=== PATIENT | male | born 1965 | race Two or more races ===

== ENCOUNTER 2022-11-06 08:16 | Outpatient (OUT) | payer BC, SELFPAY ==
--- NOTE | 2022-11-06 14:53 | XR_ITS ---
The [address] [address] Patient Name: LAVERN GARCIA MRN: [id number] date: 1965 Sex: M Assigned Patient Location: RAD Current Patient Location: [facility] Accession/Order Number: [id number] Exam Date: 11/06/2022 14:53 Report Date: 11/07/2022 09:05 At the request of: LIZETH MARTIN Procedure: XR ankle RT min 3V PROCEDURE: XR ankle RT min 3V HISTORY: RIGHT ANKLE PAIN COMPARISON: XR ankle right 10/25/2021 FINDINGS: BONES:Prosthetic replacement of the talus without evidence of hardware fracture or change in alignment. No bone fracture dislocation. SOFT TISSUES:Mild soft tissue swelling surrounding the ankle. EFFUSION:None visible. OTHER: Negative. IMPRESSION: 1. Prosthetic replacement of the talus without evidence of hardware failure or change in alignment. Electronically authenticated by: MICHELLE IBRAHIM Date: 11/07/2022 09:05
== END 2022-11-06 08:17 ==
LOC: RAD 08:19
PROVIDERS: PCP Physician Assistant; Visit Provider Physician Assistant
DX: M19.071 Primary osteoarthritis, right ankle and foot (principal)
CPT/HCPCS: 73610

== ENCOUNTER 2022-11-24 10:05 | Outpatient (OUT) | payer BC, SELFPAY ==
[2022-11-24 10:51] LABS: Estimated Average Glucose 146 mg/dL; Glycohemoglobin A1C 6.7 % (4.5-6.2)
== END 2022-11-24 10:06 | disposition home or self-care (01) ==
LOC: LAB 10:07
PROVIDERS: PCP Physician Assistant; Visit Provider Internal Medicine
DX: E11.9 Type 2 diabetes mellitus without complications (principal)
CPT/HCPCS: 36415; 83036

== ENCOUNTER 2022-12-04 09:11 | Outpatient (OUT) | payer BC, SELFPAY ==
--- NOTE | 2022-12-04 09:15 | CT_ITS ---
The [address] [address] Patient Name: LAVERN GARCIA MRN: [id number] date: 1965 Sex: M Assigned Patient Location: CT Current Patient Location: CT Accession/Order Number: [id number] Exam Date: 12/04/2022 09:40 Report Date: 12/04/2022 12:07 At the request of: LIZETH MARTIN Procedure: CT ankle RT wo con CT ankle RT wo con CLINICAL HISTORY: Chronic right ankle pain with surgery 5 years ago. Primary Osteoarthritis Right Ankle M19.071. COMPARISON: 11/06/2022. 11/14/2021. TECHNIQUE: Noncontrast axial CT of right lower extremity from the right knee through the entire right foot. Bone and soft tissue windows provided for review. Sagittal and coronal reconstructions performed. Dose reduction techniques were achieved by using automated exposure control and/or adjustment of mA and/or kV according to patient size and/or use of iterative reconstruction technique. FINDINGS: Right knee joint is intact with no fracture or dislocation. There is severe degenerative change at the lateral compartment and more moderate at the medial and patellofemoral compartments. Slight associated joint effusion. The tibia and fibula are intact with no fracture or dislocation the calf muscles are intact and unremarkable. Minimal diffuse subcutaneous edema. Right total talus replacement is seen with worsening severe degenerative change at the tibial plafond and subtalar joints with worsening extensive irregularity and subchondral cystic change along the articulation with the talus. The talonavicular articulation appears intact. Remaining foot is intact with no acute fracture or dislocation. Midfoot arch is maintained on this nonweightbearing exam. Mild degenerative change of the great toe MTP joint. Achilles tendon and plantar fascia grossly intact and normal thickness where seen. CT/CT ankle RT wo con IMPRESSION: Right total talar implant is present with no acute complication but there is severe subchondral cystic change, degenerative change and irregularity at the articulations with the tibial plafond and the subtalar joints, significantly increased from 2021. Electronically authenticated by: AL PALACIO Date: 12/04/2022 12:07
== END 2022-12-04 09:12 | disposition home or self-care (01) ==
LOC: CT 09:12
PROVIDERS: PCP Internal Medicine; Visit Provider Physician Assistant
DX: M19.071 Primary osteoarthritis, right ankle and foot (principal)
CPT/HCPCS: 73700

== ENCOUNTER 2023-02-25 14:41 | Outpatient (OUT) | payer BC, SELFPAY ==
--- NOTE | 2023-02-25 14:54 | ECG_ITS ---
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
--- NOTE | 2023-02-25 15:28 | PM.PRESUREVA ---
History of Present Illness History of Present Illness Chief complaint: Primary Osteoarthritis Right Ankle and Foot Narrative: Patient presents for preadmission testing. The patient reports a long history of right ankle and foot pain. He's had two prior surgeries to the right ankle. He states he has significant pain and swelling especially when working long hours on his feet. He does wear a brace, takes meloxicam, and Tylenol which giives him some relief. He states he does have mild neuropathy and feels that his sensation comes and goes. He denies weakness of the ankle, recent trauma or injury, or any other complaints. Review of Systems ROS Narrative REVIEW OF SYSTEMS: Negative except as stated in HPI, ten or more systems reviewed. Constitutional: No fever , chills, weakness ENT: No sore throat or epistaxis Cardiovascular: No chest pain, palpitations, or activity intolerance Respiratory: No shortness of breath or cough Gastrointestinal: No abdominal pain, constipation, diarrhea, or vomiting Genitourinary: No dysuria or hematuria Neurological: No numbness, tingling, weakness, or headache Psychiatric: No mood changes PFSH PFS Medical History (Updated 02/25/23 @ 15:42 by Lorna Frye NP) Arthritis ?M19.90 - Unspecified osteoarthritis, unspecified site (ICD-10) Asthma ?J45.909 - Unspecified asthma, uncomplicated (ICD-10) Diabetes ?E11.9 - Type 2 diabetes mellitus without complications (ICD-10) GERD (gastroesophageal reflux disease) ?K21.9 - Gastro-esophageal reflux disease without esophagitis (ICD-10) High cholesterol ?E78.00 - Pure hypercholesterolemia, unspecified (ICD-10) Hypertension ?I10 - Essential (primary) hypertension (ICD-10) 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 - Idiopathic aseptic necrosis of unspecified ankle (ICD-10) Osteoarthritis of right ankle and foot ?M19.071 - Primary osteoarthritis, right ankle and foot (ICD-10) Surgical History (Updated 02/25/23 @ 15:43 by Lorna Frye NP) History of ankle surgery ?Z98.890 - Other specified postprocedural states (ICD-10) Presence of artificial ankle joint ?Z96.669 - Presence of unspecified artificial ankle joint (ICD-10) Family History (Updated 02/25/23 @ 15:07 by Lorna Frye NP) Other Family history of diabetes mellitus Family history of stroke Social History (Updated 02/25/23 @ 15:03 by Lorna Frye NP) Within the past year, how often did you have a drink containing alcohol: never Score interpretation: A score less than 4 is consistent with normal alcohol consumption. 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 200 mcg-umeclid 1 inh inhalation DAILY 02/25/23 02/25/23 History 62.5 mcg-vilant 25 mcg inhalat.powder (Trelegy Ellipta) hydrochlorothiazide 25 mg tablet 25 mg PO DAILY 02/25/23 02/25/23 History insulin detemir U-100 100 unit/mL 16 unit subcut DAILY 02/25/23 02/25/23 History (3 mL) subcutaneous pen (Levemir FlexPen) losartan 100 1 tab PO DAILY 02/25/23 02/25/23 History mg-hydrochlorothiazide 25 mg tablet (Hyzaar) meloxicam 15 mg tablet 15 mg PO DAILY 02/25/23 02/25/23 History metformin 850 mg tablet 850 mg PO DAILY 02/25/23 02/25/23 History omega-3 fatty acids-fish oil 360 1 cap PO DAILY 02/25/23 02/25/23 History mg-1,200 mg capsule (Fish Oil) omeprazole 40 mg capsule,delayed 40 mg PO DAILY 02/25/23 02/25/23 History release Allergies Allergy/AdvReac Type Severity Reaction Status Date / Time No Known Drug Allergies Allergy Verified 02/25/23 14:57 Exam Narrative Exam Narrative: Constitutional: Awake, alert, comfortable, well-appearing, nontoxic, interactive, vital signs as charted Head: Normocephalic, atraumatic Neck: Supple, normal appearance, normal range of motion, no meningeal signs, no lymphadenopathy Respiratory: No respiratory distress, breath sounds clear Cardiovascular: Regular rate and rhythm, strong and regular heart tones Musculoskeletal: Patient ambulates with an antalgic gait, 2+ pedal edema right foot, medial right ankle tenderness with palpation, limited range of motion, sensation intact, sluggish capillary refill Skin: No rashes or induration, no lesions, Well-healed incisions right ankle and foot, only visible skin inspected Neuro: No neurological deficits, normal sensation Psychiatric: Oriented ?3, normal affect Assessment and Plan Assessment and Plan (1) Osteoarthritis of right ankle and foot: (2) Idiopathic aseptic necrosis of ankle: (3) Presence of artificial ankle joint: Plan Right ankle and subtalar joint fusion with 3-D printed Talar cage, bone graft as needed, and removal of hardware scheduled with Dr. Perez 03/14/2023
[2023-02-25 16:40] LABS: BUN Creatinine Ratio 22.6; Calcium 8.9 mg/dL (8.5-10.1); Carbon Dioxide 25.9 mmol/L (21.0-32.0); Chloride 103 mmol/L (98-107); Estimated GFR (African America >60 (>=60); Estimated GFR (Non-African Ame 50 (>=60); Glucose 131 mg/dL (74-106); Potassium 3.9 mmol/L (3.5-5.1); Sodium 141 mmol/L (136-145)
== END 2023-02-25 14:42 | disposition home or self-care (01) ==
LOC: PST 14:42
PROVIDERS: PCP Internal Medicine; Visit Provider Podiatrist Foot & Ankle Surgery
DX: Z01.810 Encounter for preprocedural cardiovascular examination (principal); Z01.812 Encounter for preprocedural laboratory examination; M19.071 Primary osteoarthritis, right ankle and foot; M87.00 Idiopathic aseptic necrosis of unspecified bone; I10 Essential (primary) hypertension; E11.9 Type 2 diabetes mellitus without complications
CPT/HCPCS: 36415; 80048; 93005; G0463

== ENCOUNTER 2023-03-14 13:18 | Outpatient (OUT) | payer BC, SELFPAY ==
[2023-03-14 14:44] LABS: Bilirubin Urine NEGATIVE (NEGATIVE); Blood Urine NEGATIVE (NEGATIVE); Clarity Urine CLEAR (CLEAR); Color Urine LT. YELLOW (YELLOW); Glucose Urine UA NEGATIVE (NEGATIVE); Ketones Urine NEGATIVE (NEGATIVE); Leukocyte Esterase Urine NEGATIVE (NEGATIVE); Nitrite Urine NEGATIVE (NEGATIVE); Protein Urine NEGATIVE (NEG/TRACE); Specific Gravity Urine 1.015 (1.005-1.025); Urobilinogen Urine 0.2 EU/dL (0.2-1.0)
[2023-03-14 15:10] LABS: Urine Microscopic Indicated NO
== END 2023-03-14 13:19 | disposition home or self-care (01) ==
LOC: LAB 13:19
PROVIDERS: PCP Internal Medicine; Visit Provider Podiatrist Foot & Ankle Surgery
DX: Z01.812 Encounter for preprocedural laboratory examination (principal)
CPT/HCPCS: 81003; 87081

== ENCOUNTER 2023-03-18 10:05 | Emergency (ER) | payer BC, SELFPAY ==
[2023-03-18 10:14] VITALS: BP 160/94; PULSE 63; RESP 14; TEMP 37.4; O2SAT 98; BMI 35.5
[2023-03-18 10:16] VITALS: O2SAT 99
[2023-03-18 11:58] VITALS: BP 158/92; PULSE 57; RESP 18; O2SAT 97
--- NOTE | 2023-03-18 12:13 | ED_ITS ---
HPI - General Adult General Chief complaint: Upper Respiratory Infection Stated complaint: COUGH Time Seen by Provider: 03/18/23 11:19 Source: patient Mode of arrival: walk-in Limitations: no limitations History of Present Illness HPI narrative: Patient is a 58-year-old male who is presenting to the Emergency Room today with chief complaint of flulike symptoms, cough, congestion, sinus drainage for the past 2 weeks. Patient is here today because He is having surgery on to have a foot/toe surgery at [facility] and wanted to make sure that he can proceed with his surgery. Patient has no significant headache, no sinus congestion. Patient has no chest pain shortness of breath. No abdominal pain, nausea or vomiting. No acute complaints. Patient has been taking quqv-gmr-zstgvth Coricidin, patient's blood pressure is elevated secondary to possible ndxh-uaw-slodsed medication. Patient looks well. No ear pain, no sore throat, no other acute complaints. . All systems are negative except as noted/marked. All systems reviewed and otherwise negative. . Nurses note and vital signs reviewed and patient is not hypoxic. General: The patient appears well and in no apparent distress. Patient is resting comfortably on cart. Patient is not toxic, lethargic, or listless Skin: Warm, dry, no pallor noted. There is no rash noted. No petechiae, purpura. Head: Normocephalic, atraumatic; Patient has no tenderness to palpation to bilateral frontal or maxillary sinus. Patient has clear drainage noted to the posterior pharynx, mild cobblestoning noted. No unilateral swelling, no posterior pharyngeal petechia or Exam. Eye: Normal conjunctiva, no drainage, EOMI. PERRL Ears, Nose, Mouth, and Throat: oral mucosa is moist. Nares patent. Mouth without vesicles. Cardiovascular: Regular Rate and Rhythm, no murmur, gallop, rub Respiratory: Patient is in no distress, no accessory muscle use, lungs are clear to auscultation, no wheezing, rales or rhonchi Back: non-tender, no CVA tenderness bilaterally to percussion. No CT LS midline pain GI: soft, obese, no tenderness Musculoskeletal: Patient has full range of motion of all of the extremities, no motor, sensory, or focal neurological deficits Neurological: A&O x3, normal speech Psychiatric: Cooperative Related Data Home Medications Medication Instructions Recorded Confirmed acetaminophen 500 mg tablet 1,000 mg PO Q6H PRN pain 02/25/23 02/25/23 albuterol sulfate 90 mcg/actuation 2 inh inhalation QID PRN shortness 02/25/23 02/25/23 aerosol inhaler (ProAir HFA) of breath or wheezing atorvastatin 40 mg tablet 40 mg PO DAILY 02/25/23 02/25/23 carvedilol 25 mg tablet (Coreg) 25 mg PO BID 02/25/23 02/25/23 fluticasone fur. 200 mcg-umeclid 1 inh inhalation DAILY 02/25/23 02/25/23 62.5 mcg-vilant 25 mcg inhalat.powder (Trelegy Ellipta) hydrochlorothiazide 25 mg tablet 25 mg PO DAILY 02/25/23 02/25/23 insulin detemir U-100 100 unit/mL 16 unit subcut DAILY 02/25/23 02/25/23 (3 mL) subcutaneous pen (Levemir FlexPen) losartan 100 1 tab PO DAILY 02/25/23 02/25/23 mg-hydrochlorothiazide 25 mg tablet (Hyzaar) meloxicam 15 mg tablet 15 mg PO DAILY 02/25/23 02/25/23 metformin 850 mg tablet 850 mg PO DAILY 02/25/23 02/25/23 omega-3 fatty acids-fish oil 360 1 cap PO DAILY 02/25/23 02/25/23 mg-1,200 mg capsule (Fish Oil) omeprazole 40 mg capsule,delayed 40 mg PO DAILY 02/25/23 02/25/23 release Previous Rx's Medication Instructions Recorded azithromycin 250 mg tablet See Rx Instructions PO .COMPLEX 5 03/18/23 days #6 tabs benzonatate 100 mg capsule 200 mg PO TID PRN cough #20 caps 03/18/23 gvpxtwokiauppnq-zdajajklhkudflg-NI 10 ml PO Q6H PRN cold symptoms 03/18/23 2 mg-30 mg-10 mg/5 mL oral syrup #200 mL (Bromfed DM) Allergies Allergy/AdvReac Type Severity Reaction Status Date / Time No Known Drug Allergies Allergy Verified 03/18/23 10:14 [facility] Medical History (Updated 03/18/23 @ 12:11 by Arslan Mcclain MD) Arthritis ?M19.90 - Unspecified osteoarthritis, unspecified site (ICD-10) Asthma ?J45.909 - Unspecified asthma, uncomplicated (ICD-10) Diabetes ?E11.9 - Type 2 diabetes mellitus without complications (ICD-10) GERD (gastroesophageal reflux disease) ?K21.9 - Gastro-esophageal reflux disease without esophagitis (ICD-10) High cholesterol ?E78.00 - Pure hypercholesterolemia, unspecified (ICD-10) Hypertension ?I10 - Essential (primary) hypertension (ICD-10) 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 - Idiopathic aseptic necrosis of unspecified ankle (ICD-10) Osteoarthritis of right ankle and foot ?M19.071 - Primary osteoarthritis, right ankle and foot (ICD-10) Surgical History (Updated 02/25/23 @ 15:43 by Lorna Frye NP) History of ankle surgery ?Z98.890 - Other specified postprocedural states (ICD-10) Presence of artificial ankle joint ?Z96.669 - Presence of unspecified artificial ankle joint (ICD-10) Family History (Updated 02/25/23 @ 15:07 by Lorna Frye NP) Other Family history of diabetes mellitus Family history of stroke Social History (Updated 02/25/23 @ 15:03 by Lorna Frye NP) Within the past year, how often did you have a drink containing alcohol: never Score interpretation: A score less than 4 is consistent with normal alcohol consumption. 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 [employer] Highest level of school completed/degree received: high school graduate Exam Constitutional Vital Signs, click to edit/add: Last Vital Signs Temp 99.3 F 03/18/23 10:14 Pulse 57 L 03/18/23 11:58 Resp 18 03/18/23 11:58 BP 158/92 H 03/18/23 11:58 Pulse Ox 97 03/18/23 11:58 O2 Del Method Room Air 03/18/23 10:14 Course Vital Signs Vital signs: Vital Signs Temperature 99.3 F 03/18/23 10:14 Pulse Rate 63 03/18/23 10:14 Respiratory Rate 14 03/18/23 10:14 Blood Pressure 160/94 H 03/18/23 10:14 Pulse Oximetry 98 03/18/23 10:14 Oxygen Delivery Method Room Air 03/18/23 10:14 Temperature 99.3 F 03/18/23 10:14 Pulse Rate 57 L 03/18/23 11:58 Respiratory Rate 18 03/18/23 11:58 Blood Pressure 158/92 H 03/18/23 11:58 Pulse Oximetry 97 03/18/23 11:58 Oxygen Delivery Method Room Air 03/18/23 10:14 Medical Decision Making MDM Narrative Medical decision making narrative: Patient is very pleasant take care of. Patient is aware to let his surgeon no referred performing the procedure on of his flulike symptoms for the past 2 weeks. Since patient's been having symptoms for 2 weeks and his surgery scheduled this week, he'll be placed on antibiotic prophylactically. Patient was given prescription for Tessalon Perles and Bromfed. Patient understands he is Claritin or Zyrtec along with Flonase. Education done at bedside and on discharge paperwork. No questions. Patient very thankful. Discharge Plan Discharge Chief Complaint: Upper Respiratory Infection Clinical Impression: Upper respiratory infection, Sinus congestion Patient Disposition: Home, Self-Care Condition: Fair Prescriptions / Home Meds: New azithromycin 250 mg tablet See Rx Instructions .ROUTE .COMPLEX 5 Days Qty: 6 0RF Rx Instructions: For 250 mg dose pack: take 500 mg today (day 1), then 250 mg for 4 days (days 2-5) benzonatate 100 mg capsule 200 mg PO TID PRN (Reason: cough) Qty: 20 0RF laieuovdlnekjsj-dotalggdj-RM [Bromfed DM] 2-30-10 mg/5 mL syrup 10 ml PO Q6H PRN (Reason: cold symptoms) Qty: 200 0RF No Action albuterol sulfate [ProAir HFA] 90 mcg/actuation HFA aerosol inhaler 2 inh inhalation QID PRN (Reason: shortness of breath or wheezing) atorvastatin 40 mg tablet 40 mg PO DAILY carvedilol [Coreg] 25 mg tablet 25 mg PO BID Rx Instructions: must administer with a meal/food omega-3 fatty acids-fish oil [Fish Oil] 360-1,200 mg capsule 1 cap PO DAILY hydrochlorothiazide 25 mg tablet 25 mg PO DAILY Levemir FlexPen 100 unit/mL (3 mL) insulin pen 16 unit subcut DAILY losartan-hydrochlorothiazide [Hyzaar] 100-25 mg tablet 1 tab PO DAILY meloxicam 15 mg tablet 15 mg PO DAILY metformin 850 mg tablet 850 mg PO DAILY omeprazole 40 mg capsule,delayed release(DR/EC) 40 mg PO DAILY Trelegy Ellipta 200-62.5-25 mcg blister with device 1 inh inhalation DAILY acetaminophen 500 mg tablet 1,000 mg PO Q6H PRN (Reason: pain) Instructions: Upper Respiratory Infection (ED), Cold Symptoms (ED), How to Use Nasal [place] (ED) Additional Instructions: Use oozv-fuu-spvtksv Claritin or Zyrtec 10 a day, Benadryl nighttime. Use Flonase as well daily to help with sinus congestion. An antibiotic has been prescribed since he had symptoms for over 2 weeks. Increase fluids. Cough medication has been prescribed as well. Make sure you let your surgeon know of your flulike symptoms and treatment today in the Emergency Room. Stand Alone Forms: Portal Instructions Referrals: Shaikh Baker MD [Primary Care Provider] - 1 week
== END 2023-03-18 12:24 | disposition home or self-care (01) ==
PROVIDERS: Emergency Provider Emergency Medicine; PCP Internal Medicine
DX: J06.9 Acute upper respiratory infection, unspecified (principal); R09.81 Nasal congestion; M19.90 Unspecified osteoarthritis, unspecified site; J45.909 Unspecified asthma, uncomplicated; E11.9 Type 2 diabetes mellitus without complications; K21.9 Gastro-esophageal reflux disease without esophagitis; E78.00 Pure hypercholesterolemia, unspecified; I10 Essential (primary) hypertension; Z96.669 Presence of unspecified artificial ankle joint; E66.9 Obesity, unspecified; Z79.899 Other long term (current) drug therapy; Z79.4 Long term (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; Z79.84 Long term (current) use of oral hypoglycemic drugs; Z87.891 Personal history of nicotine dependence; Z68.35 Body mass index [BMI] 35.0-35.9, adult
CPT/HCPCS: 99283

== ENCOUNTER 2023-04-02 09:10 | Outpatient (OUT) | payer BC, SELFPAY ==
--- NOTE | 2023-04-02 09:27 | CT_ITS ---
The [address] [address] Patient Name: LAVERN GARCIA MRN: [id number] date: 1965 Sex: M Assigned Patient Location: LAB Current Patient Location: LAB Accession/Order Number: [id number] Exam Date: 04/02/2023 09:48 Report Date: 04/02/2023 10:50 At the request of: EVELYNE QUINTANILLA Procedure: CT soft tissue neck w con CT soft tissue neck w con, 04/02/2023 9:48 AM EST INDICATION: Stridor R06.1, Foreign Body Sensation In Throat R09.A2 COMPARISON: There is no appropriate prior study for comparison. TECHNIQUE: CT imaging of the neck were acquired without contrast. Supplemental 2D reformatted images were generated and reviewed as needed. Dose reduction techniques were achieved by using automated exposure control and/or adjustment of mA and/or kV according to patient size and/or use of iterative reconstruction technique. FINDINGS: No abnormality of the base of skull is noted. There is mucosal thickening within the maxillary and frontal sinuses and ethmoid cells. The nasopharynx, oropharynx, hypopharynx and oral cavity are unremarkable. Bilateral tonsilliths are noted. The parotids, submandibular glands are unremarkable. The larynx is unremarkable. No abnormality of paraglottic fat is noted. There is no lymph node enlargement by size criteria. No retropharyngeal lymph node is noted. The thyroid gland is homogeneous. The visualized portions of lungs are unremarkable. There is no suspicious osteolytic or osteoblastic lesion. There are multilevel degenerative changes of cervical spine. CT/CT soft tissue neck w con IMPRESSION: No definite foreign body in throat is noted. No significant abnormality in the current study. Electronically authenticated by: LAURA SANCHEZ Date: 04/02/2023 10:50
[2023-04-02 09:32] LABS: Estimated GFR (African America >60 (>=60); Estimated GFR (Non-African Ame >60 (>=60)
== END 2023-04-02 09:11 | disposition home or self-care (01) ==
LOC: LAB 09:10
PROVIDERS: PCP Internal Medicine; Visit Provider Internal Medicine
DX: R09.A2 Foreign body sensation, throat (principal); R06.1 Stridor
CPT/HCPCS: 36415; 70491; 82565; Q9967

== ENCOUNTER 2023-04-11 15:56 | Observation (INO) | payer BC, SELFPAY ==
[2023-02-25 15:17] VITALS: BP 146/85; PULSE 56; RESP 20; TEMP 36.5; O2SAT 98; BMI 37.6
[2023-04-11] VITALS (21 sets, daily range): BP systolic 91–170; BP diastolic 45–94; PULSE 51–82; RESP 10–20; TEMP 36.1–37.1; O2SAT 92–99; BMI 34.1; BMI 34.5
--- NOTE | 2023-04-11 | FL_ITS ---
[address] [address] Patient Name: LAVERN GARCIA MRN: [id number] date: 1965 Sex: M Assigned Patient Location: SURGOUT Current Patient Location: [place] Accession/Order Number: [id number] Exam Date: 04/11/2023 11:30 Report Date: 04/12/2023 09:38 At the request of: REY ALCARAZ Procedure: FL fluoroscopy <1hr NON-READ EXAM: FL fluoroscopy <1hr NON-READ HISTORY: TECHNIQUE: FINDINGS: Please see Operative Report. Electronically authenticated by: RADIOLOGIST NO Date: 04/12/2023 09:38
[2023-04-11 07:38] LABS: Basophils Absolute Auto 0.1 10^3/uL (0.0-0.1); Basophils Percent Auto 1.1 % (0.2-2.0); Eosinophils Absolute Auto 0.4 10^3/uL (0.0-0.7); Hematocrit 38.4 % (42.0-54.0); Hemoglobin 13.1 g/dL (14.0-18.0); Immature Granulocytes Abs Auto 0.09 10^3/uL (0.00-0.03); Immature Granulocytes Pct Auto 1.4 % (0.0-0.5); Lymphocytes Absolute Auto 1.7 10^3/uL (1.2-3.8); Lymphocytes Percent Auto 26.7 % (20.5-60.0); Mean Corpuscular HGB Conc 34.1 g/dL (29.9-35.2); Mean Corpuscular Hemoglobin 29.6 pg (25.9-34.0); Mean Corpuscular Volume 86.9 fL (80.0-94.0); Mean Platelet Volume 10.6 fL (9.5-13.5); Monocytes Absolute Auto 0.5 10^3/uL (0.3-0.8); Monocytes Percent Auto 7.3 % (1.7-12.0); Neutrophils Absolute Auto 3.6 10^3/uL (1.4-6.5); Neutrophils Percent Auto 56.5 % (43.0-75.0); Platelet Count 158 10^3/uL (150-450); Red Blood Count 4.42 10^6/uL (4.70-6.10); White Blood Count 6.3 10^3/uL (4.0-11.0)
[2023-04-11] MEDS: LACTATED RINGER'S SOLUTION 1,000 ML 50 ML IV ×2 (07:39→12:59)
--- NOTE | 2023-04-11 07:49 | PC.NURSE ---
Reported BS to Dr. Leyva and to Podiatry. Dr. Leyva said no coverage for 204.
--- NOTE | 2023-04-11 09:52 | PC.NURSE ---
Patient identified with Dr. Leyva and I present per protocol. Patient verbalized consent to nerve block. Patient repositioned on left side with operative leg up. Dr. Levya donned sterile gloves and with the assistance of ultrasound guidance, the popliteal nerve branch was identified. Patient was hooked up to all safety monitors per protocol. Dr. Leyva initiated nerve block with assistance of stimuplex. Patient vital signs monitored throughout the entire procedure. Nerve block ended at 923. Patient repositioned to back and head of bed elevated. Call light in reach. Patient stated no further needs. Patients significant other brought back to the room.
[2023-04-11] MEDS: CEFAZOLIN SODIUM/DEXTROSE,ISO 2 GM/50 ML PIGGYBACK IV ×2 (10:50→16:59)
[2023-04-11] MEDS: VANCOMYCIN HCL 500 MG VIAL TOPICAL (13:15)
--- NOTE | 2023-04-11 13:17 | PM.ORONB ---
Brief Operative Note Date of procedure: 04/11/23 Pre-op diagnosis: right ankle arthritis status post ankle replacement, history of talar AVN Post-op diagnosis: other (right ankle arthritis status post ankle replacement, history of talar AVN & osteochondral defect, equinus) Procedure: PROCEDURES PERFORMED: right ankle and subtalar joint fusions with 3-D printed patient specific talar cage, removal of orthopedic hardware/implant, harvest of tibial bone graft, tendo Achilles lengthening, application of short leg splint and intraoperative fluoroscopy examination INTRAOPERATIVE FINDINGS: stable total talus implant which after removal revealed significant degenerative changes to the posterior facet middle facet of the calcaneus as well as to the distal tibia. No significant arthritic changes noted to the cartilage of the navicular. Bone quality was within normal limits. Ankle joint dorsiflexion was in slight equinus with the knee extended and to neutral with the knee flexed. PROCEDURE IN DETAIL: Patient was identified in pre op and consent was reviewed. Correct side and site were identified and marked. Pre-op antibiotics were started. Patient was brought to OR suite and place on table in a supine position. General anesthesia was administered. Tourniquet applied. Operative extremity was prepped and draped in usual sterile fashion. Formal time-out was performed and the foot/ankle were exsanguinated and tourniquet inflated. Utilizing a stab incision over the mid substance of the Achilles tendon, a scalpel was used to fully release the Achilles tendon. Significant increase in ankle joint dorsiflexion was noted on the table. Anterior extensile incision between the tibialis anterior and extensor hallucis longus tendon was performed. All bleeders were coagulated. Full-thickness dissection down to the ankle and talonavicular joints was performed. Medial and lateral flaps were raised to expose the total talus implant. while my assistant spa director held distraction on the heel as well as plantar flexing and inverting the ankle I used a large tenaculum around the total talus neck which allowed it to be removed and passed the back table. Degenerative changes were noted to the calcaneus and distal tibia. all tendinous and ligamentous structures were protected throughout the procedure. Surgical site was irrigated with copious amounts of saline. Then the distal tibia was prepared for fusion by removing all cartilage with the utilization of curettes, osteotomes, and subchondral drilling with a 2.0 mm drill bit. The areas were irrigated with copious amounts of sterile saline multiple times. The calcaneal posterior facet was then prepared using 36 mm & 38 mm acetabular reamers which is done so under fluoroscopy. Trial implants were used to ensure the posterior facet was contoured appropriately. The trial implant was removed and the surgical site was irrigated with copious amounts of normal saline. The nominal trial implant was then placed into the ankle and fluoroscopy confirmed proper alignment. Utilizing C-arm a proper starting point on the plantar surface of the calcaneus was marked. A longitudinal incision over the plantar heel was created blunt dissection down to the plantar calcaneus was performed. Then utilizing a large guidepin the subtalar and ankle joints were pinned and held in place. This wire was then placed into the distal tibia and was confirmed to be within regularity canal and advanced accordingly. Starting with the smallest reamer provided in the tray and the calcaneus, talus and tibia were reamed followed by 0.5 mm larger reamer in succession until chatter was obtained in the tibial isthmus. Largest reaming with an 11.5 mm reamer followed by 12.5 & 13.5 mm reamer used in the calcaneus only to accommodate the distal aspect of the nail. reaming was performed for a 10 x 300 mm nail. All reamings collected as tibial autograft with use of the [employer]ed[employer] Bone Press and corresponding suction device. 15 mL of solid bone graft was from bone marrow aspirate (15 mL) utilizing the bone press. The solid graft was mixed with 5 cc of allograft. The bone graft mixture was then packed into the porous titanium cage which was then inserted into the ankle. Fluoroscopy confirmed proper alignment and placement of the three printed porous titanium cage. On the back table, the appropriate sized nail was attached to the jig and the nitinol element was stretched to 6 mm. The guidepin was removed and the nail was placed to the appropriate depth and rotation. X-ray was evaluated for proper positioning of the nail. Stab incisions over the posterior and lateral aspect of the calcaneus were placed followed by blunt dissection down to bone was performed. Next, the distal most screw was drilled from posterior to anterior under fluoroscopy guidance. A 5.0 mm screw was then placed from a posterior anterior direction through the nail holes distally. The lateral to medial calcaneus hole was drilled with the corresponding cannula and a 5.0 mm screws was placed. A stab incision was placed over the mid shaft of the tibia followed by blunt dissection down to bone. Then the tibia drilled transversly with a compression marci accordingly with the appropriate drill sleeves across the dynamic proximal slot an additional stab incision was placed to allow passage of the compression marci. Then utilizing the jig the ankle and subtalar joints were compressed until there was a slight bend in the compression rods. 5 mm of manual compression was obtained which was visualized under fluoroscopy. Next the medial stab incision was extended proximally and distally followed by blunt dissection down to bone. A static crosslock screw was placed accordingly across the midshaft with the aide of the jig under fluoroscopic guidance. The manual compression was removed followed by the compression marci. An additional 5.0 mm screw was placed transversely across the dynamic slot in the tibia. The jig was then removed after confirming proper hardware placement. An end cap on the distal aspect of the nail was then placed and confirmed under fluoroscopy. an additional 4.0 mm cannulated screw was placed accordingly from the implant into the calcaneus for additional rotational stability. This screw was placed under fluoroscopic guidance. all surgical sites were irrigated with copious saline. Remaining bone graft was then packed into the anterior aspect of the talar cage. 1 gm vancomycin powder was placed into the surgical sites. Then incisions were then closed in layers and the tourniquet was deflated with a prompt hyperemic response. A dry sterile dressing consisting of Xeroform on the incisions followed by 4 x 4 gauze, ABDs, and Kerlix were applied. Multiple layers of cast padding were then applied to ensure all bony prominences were well-padded. A plaster posterior splint was then applied which was held in place by Reza wraps. Capillary refill time to all digits was evaluated and had appropriate response. POSTOPERATIVE PLAN: Transfer to med/surg under hospitalist's care NWB operative foot/ankle Ice and elevation Isi-op antibiotics, multimodal pain medication and DVT prophylaxis ordered Consults: physical therapy & social welfare research worker Estimated LOS 2-3 nights Will follow Implants: Gyrwjx7v 3d printed patient specific talar cage Medshape DynaNail 10 x 300 mm Medline 4.0 mm cannulated screw [employer] sparc allograft 5 cc Anesthesia: regional and General-ET Surgeon: Bharath Perez Sheet Rock Applicator: Lane Eli Estimated blood loss (mL): 25 Pathology: none sent Condition: stable Disposition: PACU Preoperative Details Reason for procedure: patient is a 58-year-old male with type 2 diabetes, and chronic asthma who underwent right total talus replacement in December 2019 for large osteochondral defect with cystic component. his recovery was unremarkable and he did very well however roughly 9 months following surgery began having stiffness, reduction range of motion and pain and underwent subsequent ankle arthroscopy which significantly improved his symptoms and function. Patient had done well for well over a year however over the last six months began having worsening pain and stiffness. Follow-up CT scan revealed significant increase in arthritic changes especially to the posterior facet of the calcaneus and less so to the distal tibia. Given his degree of pain and dysfunction he wished to proceed with surgical revision and I recommended fusion with removal of the total talus replacement. I reviewed the potential risks as well as benefits in addition to the recovery and prognosis. All questions were answered to his satisfaction and consent was obtained
--- NOTE | 2023-04-11 14:16 | XR_ITS ---
The [address] [address] Patient Name: LAVERN GARCIA MRN: [id number] date: 1965 Sex: M Assigned Patient Location: [facility] Current Patient Location: [place] Accession/Order Number: [id number] Exam Date: 04/11/2023 14:35 Report Date: 04/12/2023 01:17 At the request of: EVELYNE GUERIN Procedure: XR ankle RT min 3V PROCEDURE: XR foot RT min 3V, XR ankle RT min 3V HISTORY: postop xr COMPARISON: XR ankle right 11/06/2022 FINDINGS: BONES:Mechanical fusion of the ankle joint and hindfoot via intramedullary marci and locking screws. Prosthetic spacer replacement of the previously seen prosthetic talus. SOFT TISSUES:Expected post operative findings. Images were obtained to cast material. EFFUSION:None visible. OTHER: Negative. XR/XR ankle RT min 3V IMPRESSION: 1. Surgical revision with ankle and hindfoot fusion. Electronically authenticated by: MICHELLE IBRAHIM Date: 04/12/2023 01:17
--- NOTE | 2023-04-11 14:16 | XR_ITS ---
The [address] [address] Patient Name: LAVERN GARCIA MRN: [id number] date: 1965 Sex: M Assigned Patient Location: [facility] Current Patient Location: [place] Accession/Order Number: [id number] Exam Date: 04/11/2023 14:35 Report Date: 04/12/2023 01:17 At the request of: EVELYNE GUERIN Procedure: XR foot RT min 3V PROCEDURE: XR foot RT min 3V, XR ankle RT min 3V HISTORY: postop xr COMPARISON: XR ankle right 11/06/2022 FINDINGS: BONES:Mechanical fusion of the ankle joint and hindfoot via intramedullary marci and locking screws. Prosthetic spacer replacement of the previously seen prosthetic talus. SOFT TISSUES:Expected post operative findings. Images were obtained to cast material. EFFUSION:None visible. OTHER: Negative. XR/XR foot RT min 3V IMPRESSION: 1. Surgical revision with ankle and hindfoot fusion. Electronically authenticated by: MICHELLE IBRAHIM Date: 04/12/2023 01:17
[2023-04-11 14:47] LABS: Glucometer 194 mg/dL (74-106)
--- NOTE | 2023-04-11 15:25 | PM.HP ---
H&P: HPI History of Present Illness Chief complaint: Primary Osteoarthritis Right Ankle and Foot Narrative: patient is a 58-year-old male with past medical history of hypertension, diabetes, GERD, asthma who presents postoperatively for a right ankle and subtalar joint fusion and removal of hardware with bone graft. Patient states that his sugars are pretty well controlled at home, along with his blood pressure. He sees Dr. Clayton for his hypertension and diabetes. He is uncertain as to why his last hemoglobin A1c was as outpatient. He recently had a referral to pulmonary for an upper respiratory wheeze or catch and his throat. He was started on trelogy and reports that that is doing well. pain seems well controlled postoperatively and he has no other issues or complaints to report. is present at bedside at the time of exam Review of Systems ROS Narrative ROS: a complete review of systems were reviewed with patient and are positive as below or listed in History of Chief Complaint. General: no fever, chills, night sweats Head: no headache, trauma, visual changes, nausea or vomiting Skin: no reported rashes, itching or sores Eyes: no blurriness of vision Ears: no reported hearing loss, vertigo, earache, or tinnitus Throat: no sore throat, hoarseness, swelling of neck, or tongue pain Heart: no chest pain Lungs: no shortness of breath or cough GI: no diarrhea or vomiting/nausea Urinary: no urinary urgency, frequency or pain Neuro: no numbness or tingling HEM: no bleeding issues or bruising ENDO: no thyroid problems Psych: no anxiety or depression [facility] Medical History (Updated 03/18/23 @ 12:11 by Arslan Mcclain MD) Arthritis ?M19.90 - Unspecified osteoarthritis, unspecified site (ICD-10) Asthma ?J45.909 - Unspecified asthma, uncomplicated (ICD-10) Diabetes ?E11.9 - Type 2 diabetes mellitus without complications (ICD-10) GERD (gastroesophageal reflux disease) ?K21.9 - Gastro-esophageal reflux disease without esophagitis (ICD-10) High cholesterol ?E78.00 - Pure hypercholesterolemia, unspecified (ICD-10) Hypertension ?I10 - Essential (primary) hypertension (ICD-10) 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 - Idiopathic aseptic necrosis of unspecified ankle (ICD-10) Osteoarthritis of right ankle and foot ?M19.071 - Primary osteoarthritis, right ankle and foot (ICD-10) Surgical History History of ankle surgery ?Z98.890 - Other specified postprocedural states (ICD-10) Presence of artificial ankle joint ?Z96.669 - Presence of unspecified artificial ankle joint (ICD-10) Family History Other Family history of diabetes mellitus Family history of stroke Social History Within the past year, how often did you have a drink containing alcohol: never Score interpretation: A score less than 4 is consistent with normal alcohol consumption. 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 200 mcg-umeclid 1 inh inhalation DAILY 02/25/23 04/11/23 History 62.5 mcg-vilant 25 mcg inhalat.powder (Trelegy Ellipta) hydrochlorothiazide 25 mg tablet 25 mg PO DAILY 02/25/23 04/11/23 History insulin detemir U-100 100 unit/mL 16 unit subcut DAILY 02/25/23 04/11/23 History (3 mL) subcutaneous pen (Levemir FlexPen) losartan 100 1 tab PO DAILY 02/25/23 04/11/23 History mg-hydrochlorothiazide 25 mg tablet (Hyzaar) meloxicam 15 mg tablet 15 mg PO DAILY 02/25/23 04/11/23 History metformin 850 mg tablet 850 mg PO DAILY 02/25/23 04/11/23 History omega-3 fatty acids-fish oil 360 1 cap PO DAILY 02/25/23 04/11/23 History mg-1,200 mg capsule (Fish Oil) omeprazole 40 mg capsule,delayed 40 mg PO DAILY 02/25/23 04/11/23 History release Allergies Allergy/AdvReac Type Severity Reaction Status Date / Time No Known Drug Allergies Allergy Verified 03/18/23 10:14 Exam Narrative Exam Narrative: General: Patient is alert, and oriented to person, place and time with normal affect, proper hygiene Head: atraumatic, acephalic Eyes: PERRLA, no nystagmus present, conjunctiva clear, no scleral icterus Ears: normal gross auditory acuity Nose: symmetric, no discharge, no maxillary or frontal sinus tenderness Neck: no masses palpated, normal thyroid Heart: Normal rate and rhythm, no murmurs/rubs/gallops Lungs: no audible wheezes, crackles and normal breath sounds all lung petersen Abdomen: Normal audible bowel sounds, no distension, No palpable masses, no organomegaly, no rebound/guarding/ or rigidity Musculoskeletal: no swelling bilateral lower extremities. right splint c/d/i Neuro: CN II-X grossly intact, normal sensation upper and lower extremities Constitutional Vital Signs, click to edit/add: Last Vital Signs Temp 98.3 F 04/11/23 14:07 Pulse 53 L 04/11/23 14:53 Resp 10 L 04/11/23 14:53 BP 119/76 04/11/23 14:53 Pulse Ox 98 04/11/23 14:53 O2 Del Method Room Air 04/11/23 14:53 O2 Flow Rate 3 04/11/23 09:23 Results Labs Labs: Short CBC 04/11/23 Range/Units 07:15 WBC 6.3 (4.0-11.0) 10^3/uL Hgb 13.1 L (14.0-18.0) g/dL Hct 38.4 L (42.0-54.0) % Plt Count 158 (150-450) 10^3/uL Assessment and Plan Assessment and Plan (1) Idiopathic aseptic necrosis of ankle: Assessment and Plan: post op, continue management by Podiatry team, Cefzolin 2 gram q8 hours, Lovenox, and pain control; NWB on the right, splint in place c/d/I; Physical therapy (2) Osteoarthritis of right ankle and foot: Assessment and Plan: see #1 (3) Hypertension: Assessment and Plan: resume home medications and monitor (4) Diabetes: Assessment and Plan: FSBS qachs, SSI and continue Levemir 16 units daily, check ha1c in the morning (5) Asthma: Assessment and Plan: no acute exacerbation or wheezing, place on duonebs as needed and schedule budesonide. (6) GERD (gastroesophageal reflux disease): Assessment and Plan: continue omeprazole (7) High cholesterol: Assessment and Plan: continue statin. Plan patient is a full code lovenox for DVT prophylaxis patient is in observation status
[2023-04-11 16:57] LABS: Alanine Aminotransferase 83 U/L (16-63); Albumin Globulin Ratio 0.9; Albumin Level 3.5 g/dL (3.4-5.0); Alkaline Phosphatase 69 U/L (46-116); Anion Gap 13.4; Aspartate Amino Transferase 52 U/L (15-37); BUN Creatinine Ratio 14.6; Bilirubin Total 1.1 mg/dL (0.2-1.0); Calcium 8.7 mg/dL (8.5-10.1); Carbon Dioxide 29.1 mmol/L (21.0-32.0); Chloride 99 mmol/L (98-107); Estimated GFR (African America >60 (>=60); Estimated GFR (Non-African Ame >60 (>=60); Glucose 166 mg/dL (74-106); Potassium 4.5 mmol/L (3.5-5.1); Sodium 137 mmol/L (136-145); Total Protein 7.5 g/dL (6.4-8.2)
[2023-04-11] MEDS: ENOXAPARIN SODIUM 40 MG/0.4 ML SYRINGE SUBQ (16:59)
[2023-04-11 21:23] LABS: Glucometer 133 mg/dL (74-106)
[2023-04-11] MEDS: CARVEDILOL 25 MG TABLET PO (22:01)
[2023-04-11] MEDS: OXYCODONE HCL 5 MG TABLET PO (22:04)
[2023-04-12] VITALS (8 sets, daily range): BP systolic 149–150; BP diastolic 52–73; PULSE 63–83; RESP 16; TEMP 36.7; O2SAT 94
[2023-04-12] MEDS: CEFAZOLIN SODIUM/DEXTROSE,ISO 2 GM/50 ML PIGGYBACK IV ×2 (01:27→09:07)
[2023-04-12 05:27] LABS: Basophils Percent Auto 0.5 % (0.2-2.0); Eosinophils Absolute Auto 0.3 10^3/uL (0.0-0.7); Eosinophils Percent Auto 3.3 % (0.9-7.0); Hematocrit 34.4 % (42.0-54.0); Hemoglobin 11.5 g/dL (14.0-18.0); Immature Granulocytes Abs Auto 0.08 10^3/uL (0.00-0.03); Immature Granulocytes Pct Auto 0.9 % (0.0-0.5); Lymphocytes Absolute Auto 1.3 10^3/uL (1.2-3.8); Lymphocytes Percent Auto 14.6 % (20.5-60.0); Mean Corpuscular HGB Conc 33.4 g/dL (29.9-35.2); Mean Corpuscular Hemoglobin 29.3 pg (25.9-34.0); Mean Corpuscular Volume 87.8 fL (80.0-94.0); Mean Platelet Volume 10.9 fL (9.5-13.5); Monocytes Absolute Auto 0.9 10^3/uL (0.3-0.8); Monocytes Percent Auto 10.5 % (1.7-12.0); Neutrophils Absolute Auto 6.1 10^3/uL (1.4-6.5); Neutrophils Percent Auto 70.2 % (43.0-75.0); Platelet Count 139 10^3/uL (150-450); Red Blood Count 3.92 10^6/uL (4.70-6.10); Red Cell Distribution Width 13.4 % (11.0-15.0); White Blood Count 8.7 10^3/uL (4.0-11.0)
[2023-04-12 05:47] LABS: Alanine Aminotransferase 76 U/L (16-63); Albumin Globulin Ratio 0.8; Albumin Level 3.4 g/dL (3.4-5.0); Alkaline Phosphatase 71 U/L (46-116); Anion Gap 14.7; Aspartate Amino Transferase 46 U/L (15-37); BUN Creatinine Ratio 20.2; Bilirubin Total 1.3 mg/dL (0.2-1.0); Calcium 8.5 mg/dL (8.5-10.1); Carbon Dioxide 27.3 mmol/L (21.0-32.0); Chloride 98 mmol/L (98-107); Estimated Average Glucose 180 mg/dL; Estimated GFR (African America >60 (>=60); Estimated GFR (Non-African Ame >60 (>=60); Globulin 4.1 g/dL; Glucose 182 mg/dL (74-106); Glycohemoglobin A1C 7.9 % (4.5-6.2); Sodium 136 mmol/L (136-145); Total Protein 7.5 g/dL (6.4-8.2)
[2023-04-12] MEDS: INSULIN ASPART 300 UNIT/3 ML PEN SUBQ ×2 (08:11→11:04)
[2023-04-12] MEDS: INSULIN DETEMIR 300 UNIT/3 ML INSULN.PEN 16 UNIT SUBQ (08:13)
[2023-04-12] MEDS: CARVEDILOL 25 MG TABLET PO (08:15)
[2023-04-12] MEDS: LOSARTAN POTASSIUM 50 MG TABLET 100 MG PO (08:15)
[2023-04-12] MEDS: HYDROCHLOROTHIAZIDE 25 MG TABLET PO (08:15)
[2023-04-12] MEDS: OMEPRAZOLE 40 MG CAPSULE.DR PO (08:15)
[2023-04-12] MEDS: ATORVASTATIN CALCIUM 40 MG TABLET 20 MG PO (08:15)
[2023-04-12] MEDS: ACETAMINOPHEN 500 MG TABLET 1000 MG PO (08:26)
[2023-04-12] MEDS: OXYCODONE HCL 5 MG TABLET PO (08:27)
--- NOTE | 2023-04-12 09:57 | PM.PN ---
Progress Note: Subjective Subjective Interval history: Patient seen resting comfortably at bedside this AM. POD #1 s/p right TTC arthrodesis with custom implant, hardware removal, tendo Achilles lengthening DOS 04/11/2023. This patient states he had no pain whatsoever overnight. Denies any acute events overnight. States he feels the block wore off this morning and is having mild pain controlled with p.o. meds. He feels he is ready to go home. He denies any other acute lower extremity complaints and denies any constitutional symptoms at time of visit. Exam Narrative Exam Narrative: RLE dressing left CDI. Vascular: CFT intact to digits. Skin temperature warm and symmetric proximal distal dressing. No edema erythema or ecchymosis proximal to dressing. Neuro: Light touch diminished to digits. No hypersensitivity. Derm: No open lesions proximal distal dressing. RLE dressing is CDI. MSK: Active and passive range of motion digits present. Compartment soft compressible, no pain with calf or thigh compression. Constitutional Vital Signs, click to edit/add: Last Vital Signs Temp 98.0 F 04/12/23 04:20 Pulse 72 04/12/23 09:53 Resp 16 04/12/23 04:20 BP 149/73 H 04/12/23 08:15 Pulse Ox 94 L 04/12/23 04:20 O2 Del Method Room Air 04/12/23 04:20 O2 Flow Rate 3 04/11/23 09:23 Progress Note: Objective Labs Labs: Short CBC 04/12/23 Range/Units 04:35 WBC 8.7 (4.0-11.0) 10^3/uL Hgb 11.5 L (14.0-18.0) g/dL Hct 34.4 L (42.0-54.0) % Plt Count 139 L (150-450) 10^3/uL BMP 04/11/23 04/12/23 16:30 04:35 Sodium 137 136 Potassium 4.5 4.0 Chloride 99 98 Carbon Dioxide 29.1 27.3 BUN 18.0 23.0 H Creatinine 1.23 1.14 Glucose 166 H 182 H Calcium 8.7 8.5 Liver Function 04/11/23 04/12/23 Range/Units 16:30 04:35 Total Bilirubin 1.1 H 1.3 H (0.2-1.0) mg/dL AST 52 H 46 H (15-37) U/L ALT 83 H 76 H (16-63) U/L Alkaline Phosphatase 69 71 (46-116) U/L Albumin 3.5 3.4 (3.4-5.0) g/dL Progress Note: A&P Assessment and Plan (1) Idiopathic aseptic necrosis of ankle: (2) Osteoarthritis of right ankle and foot: (3) Hypertension: (4) Diabetes: (5) Asthma: (6) GERD (gastroesophageal reflux disease): (7) High cholesterol: Plan Patient examined evaluated. All findings discussed with patient all questions answered to satisfaction. Labs and imaging reviewed. Leave RLE dressing CDI until follow-up. Maintain nonweightbearing to RLE. Pain controlled with p.o. meds. DC on oxy/atap 5/325 q6h prn 7d Lovenox for DVT prophylaxis while in house. DC on ASA 81 BID for 30d IV Ancef continued for 24 hours after surgery. DC on keflex 500 bid for 7d. Will send DC meds to pharmacy on file. Will clear for DC pending PT eval today, anticipate DC home later today. Rest per primary Please call with any questions or concerns.
--- NOTE | 2023-04-12 10:01 | RESP.RT ---
Given by nursing
[2023-04-12 11:00] LABS: Glucometer 186 mg/dL (74-106)
--- NOTE | 2023-04-12 11:54 | P.DS_ITS ---
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 Routine Reason for consult:: [facility] Other reason:: poss SNF vs home Physical Therapy Eval and Treat Routine Reason for consultation: postop eval NWB RLE, crutch training Has provider been notified: No Discharging clinician: Rita Leyva DS: Diagnosis Discharge Diagnosis (1) Idiopathic aseptic necrosis of ankle: (2) Osteoarthritis of right ankle and foot: (3) Hypertension: (4) Diabetes: (5) Asthma: (6) GERD (gastroesophageal reflux disease): (7) High cholesterol: DS: Summary Hospital Course Hospital Course: patient is a 58-year-old male with past medical history of hypertension, diabetes, GERD, asthma who presents postoperatively for a right ankle and subtalar joint fusion and removal of hardware with bone graft. Patient states that his sugars are pretty well controlled at home, ha1c was 7.9, along with his blood pressure. He sees Dr. Clayton for his hypertension and diabetes care. Asthma also controlled on Trelegy. Today is POD #1. pain seems well controlled with orals medications and he has no other issues or complaints to report. No issues overnight, afebrile. Podiatry has made follow up appt. She has crutches at home and scooter. He plans to do outpatient PT once cleared by Podiatry. Podiatry recommendations at discharge: Leave RLE dressing CDI until follow-up. Maintain nonweightbearing to RLE. Pain controlled with p.o. meds. DC on oxy/atap 5/325 q6h prn 7d Lovenox for DVT prophylaxis while in house. DC on ASA 81 BID for 30d IV Ancef continued for 24 hours after surgery. DC on keflex 500 bid for 7d. All meds sent to pharmacy, no changes in Home medications. Patient has close follow up. Return to the ER with any worsening issues or concerns. Time Spent with Patient Time attestation: Total time spent providing and/or coordinating discharge services: Time spent: greater than 30 minutes Exam Narrative Exam Narrative: General: Patient is alert, and oriented to person, place and time with normal affect, proper hygiene Head: atraumatic, acephalic Eyes: PERRLA, no nystagmus present, conjunctiva clear, no scleral icterus Ears: normal gross auditory acuity Nose: symmetric, no discharge, no maxillary or frontal sinus tenderness Neck: no masses palpated, normal thyroid Heart: Normal rate and rhythm, no murmurs/rubs/gallops Lungs: no audible wheezes, crackles and normal breath sounds all lung petersen Abdomen: Normal audible bowel sounds, no distension, No palpable masses, no organomegaly, no rebound/guarding/ or rigidity Musculoskeletal: no swelling bilateral lower extremities. right splint c/d/i Neuro: CN II-X grossly intact, normal sensation upper and lower extremities Constitutional Vital Signs, click to edit/add: Last Vital Signs Temp 98.0 F 04/12/23 04:20 Pulse 72 04/12/23 09:53 Resp 16 04/12/23 04:20 BP 149/73 H 04/12/23 08:15 Pulse Ox 94 L 04/12/23 04:20 O2 Del Method Room Air 04/12/23 04:20 O2 Flow Rate 3 04/11/23 09:23 DS: Data Data Completed and Pending Labs on day of discharge: Labs from last 24 hours 04/12/23 04/12/23 04/11/23 11:00 04:35 21:22 WBC 8.7 RBC 3.92 L Hgb 11.5 L Hct 34.4 L MCV 87.8 MCH 29.3 MCHC 33.4 RDW 13.4 Plt Count 139 L MPV 10.9 Neut % (Auto) 70.2 Lymph % (Auto) 14.6 L [place] % (Auto) 10.5 Eos % (Auto) 3.3 Baso % (Auto) 0.5 Neut # (Auto) 6.1 Lymph # (Auto) 1.3 [place] # (Auto) 0.9 H Eos # (Auto) 0.3 Baso # (Auto) 0.0 Abs Immat Gran (auto) 0.08 H Imm/Tot Granulo (auto) 0.9 H Sodium 136 Potassium 4.0 Chloride 98 Carbon Dioxide 27.3 Anion Gap 14.7 BUN 23.0 H Creatinine 1.14 Est GFR ( Amer) >60 Est GFR (Non-Af Amer) >60 BUN/Creatinine Ratio 20.2 Glucose 182 H Estimat Average Glucose 180 Hemoglobin A1c 7.9 H Calcium 8.5 Total Bilirubin 1.3 H AST 46 H ALT 76 H Alkaline Phosphatase 71 Total Protein 7.5 Albumin 3.4 Globulin 4.1 Albumin/Globulin Ratio 0.8 POC Glucose 186 H 133 H 04/11/23 04/11/23 16:30 14:45 WBC RBC Hgb Hct MCV MCH MCHC RDW Plt Count MPV Neut % (Auto) Lymph % (Auto) [place] % (Auto) Eos % (Auto) Baso % (Auto) Neut # (Auto) Lymph # (Auto) [place] # (Auto) Eos # (Auto) Baso # (Auto) Abs Immat Gran (auto) Imm/Tot Granulo (auto) Sodium 137 Potassium 4.5 Chloride 99 Carbon Dioxide 29.1 Anion Gap 13.4 BUN 18.0 Creatinine 1.23 Est GFR ( Amer) >60 Est GFR (Non-Af Amer) >60 BUN/Creatinine Ratio 14.6 Glucose 166 H Estimat Average Glucose Hemoglobin A1c Calcium 8.7 Total Bilirubin 1.1 H AST 52 H ALT 83 H Alkaline Phosphatase 69 Total Protein 7.5 Albumin 3.5 Globulin 4.0 Albumin/Globulin Ratio 0.9 POC Glucose 194 H Discharge Plan Discharge Disposition: (FBC OBS) Home, Self-Care Condition: Good Discharge Medications: New alendronate [Fosamax] 70 mg tablet 70 mg PO QWEEK 84 Days Qty: 12 0RF aspirin [Adult Low Dose Aspirin] 81 mg tablet,delayed release (DR/EC) 81 mg PO BID 30 Days Qty: 60 0RF oxycodone-acetaminophen [Percocet] 5-325 mg tablet 1 tab PO Q6H PRN (Reason: pain) 7 Days Qty: 28 0RF cephalexin 500 mg capsule 500 mg PO BID 7 Days Qty: 14 0RF ondansetron 4 mg tablet,disintegrating 4 mg PO Q8H PRN (Reason: nausea and vomiting) 5 Days Qty: 15 0RF cholecalciferol (vitamin D3) 125 mcg (5,000 unit) capsule 125 mcg PO DAILY 90 Days Qty: 90 0RF sennosides [Senna Laxative] 8.6 mg tablet 8.6 mg PO DAILY PRN (Reason: constipation) 7 Days Qty: 7 0RF tizanidine 2 mg tablet 2 mg PO TID PRN (Reason: muscle spasticity) 7 Days Qty: 21 0RF Continued albuterol sulfate [ProAir HFA] 90 mcg/actuation HFA aerosol inhaler 2 inh inhalation QID PRN (Reason: shortness of breath or wheezing) atorvastatin 40 mg tablet 20 mg PO DAILY Rx Instructions: PER RETAIL FILL HX. LAST FILLED 03/27/23 #90 FOR A 90 DAY SUPPLY carvedilol [Coreg] 25 mg tablet 25 mg PO BID Rx Instructions: must administer with a meal/food omega-3 fatty acids-fish oil [Fish Oil] 360-1,200 mg capsule 1 cap PO DAILY hydrochlorothiazide 25 mg tablet 25 mg PO DAILY Levemir FlexPen 100 unit/mL (3 mL) insulin pen 16 unit subcut DAILY losartan-hydrochlorothiazide [Hyzaar] 100-25 mg tablet 1 tab PO DAILY meloxicam 15 mg tablet 15 mg PO DAILY metformin 850 mg tablet 850 mg PO DAILY omeprazole 40 mg capsule,delayed release(DR/EC) 40 mg PO DAILY Trelegy Ellipta 200-62.5-25 mcg blister with device 1 inh inhalation DAILY acetaminophen 500 mg tablet 1,000 mg PO Q6H PRN (Reason: pain) Activity: other Activity Detail: Dr Perez preprinted non weight bearing instructions given also Diet: advance to your usual diet Patient Instructions: Arthrodesis (DC) Follow Up Appointments: Follow up appt. with Dr. Perez on @ 9:45am office location: The [address] [place] office #: [phone]
== END 2023-04-12 12:55 | disposition home or self-care (01) ==
LOC: SURGOUT 04-12 08:14 → MS 04-12 08:14
PROVIDERS: Podiatrist Foot & Ankle Surgery; Admitting Provider Family Medicine; PCP Internal Medicine; Visit Provider Family Medicine
PROC: (CPT 20680; principal; 2023-04-11 09:20)
DX: M19.071 Primary osteoarthritis, right ankle and foot (principal); T84.84XA Pain due to internal orthopedic prosthetic devices, implants and grafts, initial encounter; M21.6X1 Other acquired deformities of right foot; I10 Essential (primary) hypertension; E11.9 Type 2 diabetes mellitus without complications; K21.9 Gastro-esophageal reflux disease without esophagitis; J45.909 Unspecified asthma, uncomplicated; E78.00 Pure hypercholesterolemia, unspecified; Z87.891 Personal history of nicotine dependence; Z96.661 Presence of right artificial ankle joint; Z79.899 Other long term (current) drug therapy; Z79.4 Long term (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; Z79.84 Long term (current) use of oral hypoglycemic drugs
CPT/HCPCS: 20680; 20902; 27606; 27870; 28725; 36415; 64445; 73610; 73630; 76000; 80053; 82948; 83036; 85025; 94640; 96365; 97161; C1713; C1776; G0378; J2704; J3370

== ENCOUNTER 2023-05-02 13:22 | Outpatient (OUT) | payer BC, SELFPAY ==
--- NOTE | 2023-05-02 | XR_ITS ---
The [address] [address] Patient Name: LAVERN GARCIA MRN: [id number] date: 1965 Sex: M Assigned Patient Location: [facility] Current Patient Location: RAD Accession/Order Number: [id number] Exam Date: 05/02/2023 13:40 Report Date: 05/02/2023 14:36 At the request of: REY ALCARAZ Procedure: XR foot RT min 3V PROCEDURE: XR foot RT min 3V, XR ankle RT min 3V COMPARISON: 04/11/2023 HISTORY: RIGT FOOT PAIN FINDINGS: BONES:Again demonstrated is ankle fusion utilizing a retrograde intramedullary nail and proximally and distally. Remote talus resection with talus spacer. Heterotopic ossification likely representing bone graft material. Degenerative changes of the midfoot with underlying osteopenia. No acute fracture, dislocation or mechanical failure SOFT TISSUES:Negative. No visible soft tissue swelling. EFFUSION:None visible. OTHER: Negative. XR/XR foot RT min 3V IMPRESSION: Stable ankle fusion Electronically authenticated by: GERA BLUM Date: 05/02/2023 14:36
--- NOTE | 2023-05-02 | XR_ITS ---
The [address] [address] Patient Name: LAVERN GARCIA MRN: [id number] date: 1965 Sex: M Assigned Patient Location: [facility] Current Patient Location: RAD Accession/Order Number: [id number] Exam Date: 05/02/2023 13:40 Report Date: 05/02/2023 14:36 At the request of: REY ALCARAZ Procedure: XR ankle RT min 3V PROCEDURE: XR foot RT min 3V, XR ankle RT min 3V COMPARISON: 04/11/2023 HISTORY: RIGT FOOT PAIN FINDINGS: BONES:Again demonstrated is ankle fusion utilizing a retrograde intramedullary nail and proximally and distally. Remote talus resection with talus spacer. Heterotopic ossification likely representing bone graft material. Degenerative changes of the midfoot with underlying osteopenia. No acute fracture, dislocation or mechanical failure SOFT TISSUES:Negative. No visible soft tissue swelling. EFFUSION:None visible. OTHER: Negative. XR/XR ankle RT min 3V IMPRESSION: Stable ankle fusion Electronically authenticated by: GERA BLUM Date: 05/02/2023 14:36
== END 2023-05-02 13:23 | disposition home or self-care (01) ==
LOC: RAD 13:22
PROVIDERS: PCP Internal Medicine; Visit Provider Podiatrist Foot & Ankle Surgery
DX: M19.071 Primary osteoarthritis, right ankle and foot (principal)
CPT/HCPCS: 73610; 73630

== ENCOUNTER 2023-05-23 14:02 | Outpatient (OUT) | payer BC, SELFPAY ==
--- NOTE | 2023-05-23 | XR_ITS ---
The [address] [address] Patient Name: LAVERN GARCIA MRN: [id number] date: 1965 Sex: M Assigned Patient Location: [facility] Current Patient Location: Accession/Order Number: [id number] Exam Date: 05/23/2023 14:15 Report Date: 05/25/2023 18:11 At the request of: REY ALCARAZ Procedure: XR ankle LT min 3V EXAM: XR ankle LT min 3V HISTORY: POST OP IMAGING COMPARISON: None. FINDINGS/IMPRESSION: 1. Intramedullary marci of the distal tibia extending to the calcaneus. There is screw fixation at the calcaneus. There is a talar implant. 2. No acute fracture. 3. Soft tissue swelling about the ankle. Electronically authenticated by: SHWETHA RAE Date: 05/25/2023 18:11
--- NOTE | 2023-05-23 | XR_ITS ---
The [address] [address] Patient Name: LAEVRN GARCIA MRN: [id number] date: 1965 Sex: M Assigned Patient Location: [facility] Current Patient Location: [facility] Accession/Order Number: [id number] Exam Date: 05/23/2023 14:15 Report Date: 05/25/2023 19:25 At the request of: REY ALCARAZ Procedure: XR foot RT min 3V EXAM: XR foot RT min 3V HISTORY: RIGHT FOOT POST OP COMPARISON: 05/02/2023 FINDINGS/IMPRESSION: 1. No acute fracture or dislocation 2. Intramedullary marci of the distal tibia extending to the calcaneus. There is a talar prosthesis. 3. Mild degeneration of the first metatarsophalangeal joint. Electronically authenticated by: SHWETHA RAE Date: 05/25/2023 19:25
--- NOTE | 2023-05-23 14:15 | XR_ITS ---
The [address] [address] Patient Name: LAVERN GARCIA MRN: [id number] date: 1965 Sex: M Assigned Patient Location: RAD Current Patient Location: [facility] Accession/Order Number: [id number] Exam Date: 05/23/2023 14:15 Report Date: 05/25/2023 18:11 At the request of: REY ALCARAZ Procedure: XR ankle RT min 3V EXAM: XR ankle LT min 3V HISTORY: POST OP IMAGING COMPARISON: None. FINDINGS/IMPRESSION: 1. Intramedullary marci of the distal tibia extending to the calcaneus. There is screw fixation at the calcaneus. There is a talar implant. 2. No acute fracture. 3. Soft tissue swelling about the ankle. Electronically authenticated by: SHWETHA RAE Date: 05/25/2023 18:11
--- OUTSIDE RECORDS SUMMARY | 2023-05-23 14:24 | XMS_ITS | CCD ---
Author Name Unknown Address [id number] [place] [address] Organization [facility] Care Team Providers Care Shop Worker Name Role Phone MD Sav Andrews Attending Provider MD Deana Baker Primary Care Provider DR ASA AL Attending Unavailable ACACIA JENKINS Primary Care Unavailable DR ASA AL Admitting Unavailable LIZETH MARTIN Attending Unavailable KULWANT, DR GERA Kwan Consulting Unavailable LIZETH MARTIN Admitting Unavailable GREGORY ACACIAMARY JO ELIZALDE Primary Care Unavailable LIZETH MARTIN Consulting Unavailable FAWWAD, ANGELO H Admitting Unavailable FAWWAD, ANGELO H Primary Care Unavailable FAWWAD, ANGELO H Consulting Unavailable FANyasiaWAD, ANGELO H Attending Unavailable REY ALCARAZ Attending Unavailable REY ALCARAZ Admitting Unavailable FAWWAD, ANGELO H Primary Care Unavailable DR MICHELLE IBRAHIM Consulting Unavailable REY ALCARZA Consulting Unavailable REY ALCARAZ Admitting Unavailable KULWANT, DR GERA Kwan Consulting Unavailable REY ALCARAZ Attending Unavailable FAWWAD, ANGELO H Primary Care Unavailable REY ALCARAZ Consulting Unavailable FAWWAD, ANGELO H Admitting Unavailable FAWWAD, ANGELO H Primary Care Unavailable FAWWAD, ANGELO H Consulting Unavailable FAWWACecile, ANGELO H Attending Unavailable FAWWAD, ANGELO H Primary Care Unavailable FAWWAD, ANGELO H Consulting Unavailable SAMUEL, ANGELO H Attending Unavailable SAMUEL, ANGELO H Admitting Unavailable MD Deana Baker Primary Care Provider [phone] DO Silver Briceño Attending Provider Sav Andrews Attending Unavailable Sav Andrews [facility] Silver Briceño Attending Unavailable Silver Briceño Admitting Unavailable [facility] Unavailable Sav Andrews Admitting Unavailable Sav Andrews Attending Unavailable Silver Briceño Attending Unavailable Silver Briceño Admitting Unavailable [facility] Unavailable Medications Current Medications Medication Drug Class(es) Dates Sig (Normalized) Sig (Original) [id number] 200 actuat albuterol 0.09 mg/actuat metered dose inhaler (4 sources) beta2-Adrenergic Agonist Start: 12-22-2021 take 1 puff(s) by inhalation four times daily Albuterol Sulfate Active 1 PUFF INHALATION Four times daily December 22, 2021 12:00am amLODIPine 5 mg oral tablet (4 sources) Dihydropyridine Calcium Channel Rolando Start: 12-22-2021 take 5 mg by mouth once daily in the morning Amlodipine Active 5 MG PO Every morning December 22, 2021 12:00am aspirin 81 mg delayed release oral tablet (4 sources) Platelet Aggregation Inhibitor, Nonsteroidal Anti-inflammatory Drug Start: 12-22-2021 take 81 mg by mouth once daily in the morning Aspirin Active 81 MG PO Every morning December 22, 2021 12:00am atorvastatin 40 mg oral tablet (6 sources) HMG-CoA Reductase Inhibitor Start: 08-30-2022 take 40 mg by mouth once daily in the morning Atorvastatin Active 40 MG PO Every morning August 30, 2022 12:00am Start: 12-22-2021 End: 08-30-2022 take 10 mg by mouth once daily Atorvastatin Discontinu ed 10 MG PO Daily December 22, 2021 12:00am August 30, 2022 5:17pm carvedilol 25 mg oral tablet (2 sources) alpha-Adrenergic Rolando, beta-Adrenergic Rolando Start: 08-30-2022 take 25 mg by mouth twice daily Carvedilol Active 25 MG PO Twice daily August 30, 2022 12:00am Fluticasone-Umecl idin-Vilanter (4 sources) Start: 12-22-2021 Fluticasone-Um ec lidin-Vilanter (Trelegy Ellipta) 200-62.5-25 mcg Blister With Device Active 1 INH INHALATION Every morning December 22, 2021 12:00am Start: 12-22-2021 Fluticasone-Um eclidin-Vilanter (Trelegy Ellipta) 200-62.5-25 mcg Blister With Device Active 1 INH INHALATION Daily December 22, 2021 12:00am hydroCHLOROthiazide 25 mg / losartan potassium 100 mg oral tablet (2 sources) Thiazide Diuretic, Angiotensin 2 Receptor Rolando Start: 08-30-2022 take 1 tablet by mouth once daily in the morning Losartan-Hydrochlorothiazide Active 1 TAB PO Every morning August 30, 2022 12:00am Insulin Detemir U-100 (Levemir Flexpen) 100 unit/mL (3 mL) insulin pen (2 sources) Start: 08-30-2022 Insulin Detemir U-100 (Levemir Flexpen) 100 unit/mL (3 mL) insulin pen Active 15 UNIT SUBCUT Every morning August 30, 2022 12:00am meloxicam 15 mg oral tablet (4 sources) Nonsteroidal Anti-inflammat ory Drug Start: 12-22-2021 take 15 mg by mouth once daily in the morning Meloxicam Active 15 MG PO Every morning December 22, 2021 12:00am metFORMIN hydrochloride 850 mg oral tablet (4 sources) Biguanide Start: 12-22-2021 take 850 mg by mouth twice daily Metformin Active 850 MG PO Twice daily December 22, 2021 12:00am Start: 12-22-2021 take 850 mg by mouth once christian y Metformin Active 850 MG PO Daily December 22, 2021 12:00am [place] 1-Waa-Ieh-Fish Oil (Fish Oil) 1,200 (144-216) mg Capsule (4 sources) Start: 12-22-2021 take 1 capsule by mouth twice daily [place] 5-Squ-Qgw-Fish Oil (Fish Oil) 1,200 (144-216) mg Capsule Active 1 CAP PO Twice daily December 22, 2021 12:00am omeprazole 40 mg delayed release oral capsule (4 sources) Proton Pump Inhibitor Start: 12-22-2021 take 40 mg by mouth once daily in the morning Omeprazole Active 40 MG PO Every morning December 22, 2021 12:00am SITagliptin 100 mg oral tablet (2 sources) Dipeptidyl Peptidase 4 Inhibitor Start: 08-30-2022 take 1 tablet by mouth once daily Sitagliptin Phosphate (Januvia) 100 mg tablet Active 100 MG PO Daily August 30, 2022 12:00am traMADol hydrochloride 50 mg oral tablet (1 source) Opioid Agonist Start: 09-10-2022 take 50 mg by mouth every six hours Tramadol Active 50 MG PO Q6H 30 7 September 10, 2022 12:00am Problems Active Problems Problem Classification Problem Date Documented Da te Episodic/Chronic Diabetes mellitus with complications (1 source) Type 2 diabetes mellitus with diabetic autonomic (poly)neuropathy; Translations: [TYPE 2 DM W/DIAB AUTONOM NEUROPATHY] Onset: 09-14-2021 Chronic Diabetes mellitus without complication (1 source) Type 2 diabetes mellitus without complications; Translations: [TYPE 2 DM WITHOUT COMPLICATIONS] Onset: 07-13-2022 Chronic Disorders of lipid metabolism (2 sources) Hyperlipidemia, unspecified; Translations: [Mixed hyperlipidemia] Onset: 09-14-2021 Chronic Essential hypertension (4 sources) Essential (primary) hypertension; Translations: [ESSENTIAL PRIMARY HYPERTENSION] Onset: 07-07-2022 Chronic Hemorrhoids (1 source) Hemorrhoids; Translations: [Unspecified hemorrhoids] 09-10-2022 Episodic Other bone disease and musculoskeletal deformities (4 sources) Idiopathic aseptic necrosis of right ankle; Translations: [IDIOPATH ASEPTIC NECROSIS RT ANKLE] Onset: 11-14-2021 Chronic Unclassified (1 source) Second degree hemorrhoids; Translations: [Second degree hemorrhoids] Onset: 09-10-2022 Unclassified (1 source) Encounter for preprocedural laboratory examination; Translations: [Encounter for preprocedural laboratory examination] Onset: 08-30-2022 Unclassified (1 source) Encounter for screening for malignant neoplasm of colon; Translations: [Encounter for screening for malignant neoplasm of colon] Onset: 12-22-2021 Past or Other Problems Problem Classification Problem Date Documented Da te Episodic/Chronic Other non-traumatic joint disorders (4 sources) Pain in right ankle and joints of right foot; Translations: [PAIN IN RIGHT ANKLE] Onset: 10-25-2021 Episodic Residual codes; unclassified (4 sources) Procedure and treatment not carried out for other reasons; Translations: [PROC AND TX NOT CARRIED OUT OTH REASONS] Onset: 08-03-2021 Episodic Results Test Name Value Interpretation Reference Range Facility Glucose Glucometer (BldC) [M ass/Vol]Ordered By: Silver Briceño on 09-10-2022 Glucose [Mass/Vol] 137 mg/dL [facility] Comment on above: Random Glucose Refer ence Range is dependent on time and content of last meal. Glucose of more than 200 mg/dL in a nonstressed, ambulatory subject supports the diagnosis of Diabetes Mellitus. Glucose [Mass/Vol] 131 mg/dL [facility] Comment on above: Random Glucose Refer ence Range is dependent on time and content of last meal. Glucose of more than 200 mg/dL in a nonstressed, ambulatory subject supports the diagnosis of Diabetes Mellitus. Glucose Poct Glucometerson 0 09-10-2022 Glucose [Mass/Vol] 137 mg/dL Normal [facility] Comment on above: Result Comment: [place] om Glucose Reference Range is dependent on time and content of last meal. Glucose of more than 200 mg/dL in a nonstressed, ambulatory subject supports the diagnosis of Diabetes Mellitus. PERFORMED BY: [place] [address] PATHOLOGIST [employer]CROSTRATEGY BI DEVELOPER TEOFILO KHAN M.D. Performed By: #### G LULS #### Point of Care testing , Glucose [Mass/Vol] 131 mg/dL Normal [facility] Comment on above: Result Comment: [place] om Glucose Reference Range is dependent on time and content of last meal. Glucose of more than 200 mg/dL in a nonstressed, ambulatory subject supports the diagnosis of Diabetes Mellitus. PERFORMED BY: [place] [address] PATHOLOGIST MICROSTRATEGY BI DEVELOPER TEOFILO KHAN M.D. Performed By: #### G LULS #### Point of Care testing , Basic Metabolic Panelon Anion gap [Moles/Vol] 13.5 mmol/L Normal 6.0-15.0 [facility] Comment on above: Performed By: #### C BC, BMP #### [address] Calcium [Mass/Vol] 9.4 mg/dL Normal 8.6-10.3 [facility] Comment on above: Result Comment: PERF ORMED BY: [place] [address] PATHOLOGIST MICROSTRATEGY BI DEVELOPER TEOFILO KHAN M.D. Performed By: #### C BC, BMP #### [facility] [address] [place] [address] [place] Chloride [Moles/Vol] 102 mmol/L Normal 98-107 [facility] Comment on above: Performed By: #### C BC, BMP #### [facility] [address] [place] [address] [place] CO2 [Moles/Vol] 28.5 mmol/L Normal 21.0-31.0 [facility] Comment on above: Performed By: #### C BC, BMP #### [facility] [address] [place] [address] [place] Creatinine [Mass/Vol] 0.99 mg/dL Normal 0.70-1.30 [facility] Comment on above: Performed By: #### C BC, BMP #### [facility] [address] [place] [address] [place] GFR/1.73 sq M.predicted MDRD (S/P/Bld) [Vol rate/Area] mL/min/{1.73_m2} Normal [facility] Comment on above: Performed By: #### C BC, BMP #### [place] [address] [place] Glucose [Mass/Vol] 114 mg/dL High 70-100 [facility] Comment on above: Result Comment: [place] Glucose Reference Range is dependent on time and content of last meal. Glucose of more than 200 mg/dL in a nonstressed, ambulatory subject supports the diagnosis of Diabetes Mellitus. ADA recommended reference range Performed By: #### C BC, BMP #### [facility] [address] [place] [address] [place] Potassium [Moles/Vol] 4.0 mmol/L Normal 3.5-5.1 [facility] Comment on above: Performed By: #### C BC, BMP #### [facility] [address] Sodium [Moles/Vol] 140 mmol/L Normal 136-145 [facility] Comment on above: Performed By: #### C BC, BMP #### [facility] [address] Urea nitrogen [Mass/Vol] 21 mg/dL Normal 7-25 [facility] Comment on above: Performed By: #### C BC, BMP #### [facility] [address] Basophils Auto (Bld) [#/Vol] Ordered By: Silver Briceño on 08-30-2022 Basophils (Bld) [#/Vol] 0.0 10*3/uL 0.0-0.2 [facility] Basophils/100 WBC Auto (Bld) Ordered By: Silver Briceño on 08-30-2022 Basophils/100 WBC (Bld) 0.7 % . [facility] Calcium [Mass/volume] in Ser um or PlasmaOrdered By: Silver Briceño on 08-30-2022 Calcium [Mass/Vol] 9.4 mg/dL 8.6-10.3 [facility] Carbon dioxide, total [Moles /volume] in Serum or PlasmaOrdered By: Silver Briceño on 08-30-2022 CO2 [Moles/Vol] 28.5 mmol/L 21.0-31.0 [facility] Chloride [Moles/volume] in S gela or PlasmaOrdered By: Silevr Briceño on 08-30-2022 Chloride [Moles/Vol] 102 mmol/L 98-107 [facility] Complete Blood Count Auto Di ffon 08-30-2022 Basophils (Bld) [#/Vol] 0.0 10*3/uL Normal 0.0-0.2 [facility] Comment on above: Result Comment: PERF ORMED BY: [place] [address] PATHOLOGIST MICROSTRATEGY BI DEVELOPER TEOFILO KHAN M.D. Performed By: #### C BC, BMP #### [address] [place] [address] [place] Basophils/100 WBC (Bld) 0.7 % Normal . [facility] Comment on above: Performed By: #### C BC, BMP #### [facility] [address] Eosinophils (Bld) [#/Vol] 0.3 10*3/uL Normal 0.0-0.45 [facility] Comment on above: Performed By: #### C BC, BMP #### [facility] [address] Eosinophils/100 WBC (Bld) 6.1 % Normal . [facility] Comment on above: Performed By: #### C BC, BMP #### [address] Erythrocyte distribution width (RBC) [Ratio] 14.5 % Normal 12.0-14.8 [facility] Comment on above: Performed By: #### C BC, BMP #### [address] Hematocrit (Bld) [Volume fraction] 36.5 % Low 38.8-50.0 [facility] Comment on above: Performed By: #### C BC, BMP #### [address] Hemoglobin (Bld) [Mass/Vol] 12.5 g/dL Low 13.0-17.0 [facility] Comment on above: Performed By: #### C BC, BMP #### [address] Lymphocytes (Bld) [#/Vol] 1.8 10*3/uL Normal 1.00-4.8 [facility] Comment on above: Performed By: #### C BC, BMP #### [address] Lymphocytes/100 WBC (Bld) 35.5 % Normal . [facility] Comment on above: Performed By: #### C BC, BMP #### [address] MCH (RBC) [Entitic mass] 29.2 pg Normal 27.5-35.2 [facility] Comment on above: Performed By: #### C BC, BMP #### [address] MCV (RBC) [Entitic vol] 85.1 fL Normal 83.5-101 [facility] Comment on above: Performed By: #### C BC, BMP #### [address] Mean Corpuscular HGB Conc 34.3 g/dL Normal 32.5-35.6 [facility] Comment on above: Performed By: #### C BC, BMP #### [address] Monocytes (Bld) [#/Vol] 0.4 10*3/uL Normal 0.0-0.8 [facility] Comment on above: Performed By: #### C BC, BMP #### [address] Monocytes/100 WBC (Bld) 8.2 % Normal . [facility] Comment on above: Performed By: #### C BC, BMP #### [address] Neutrophils (Bld) [#/Vol] 2.5 10*3/uL Normal 1.8-7.7 [facility] Comment on above: Performed By: #### C BC, BMP #### [address] Neutrophils/100 WBC (Bld) 49.5 % Normal . [facility] Comment on above: Performed By: #### C BC, BMP #### [address] NRBC% 0.2 /100{WBC} Normal 0-0.5 [facility] Comment on above: Performed By: #### C BC, BMP #### [address] Platelet mean volume (Bld) [Entitic vol] 8.8 fL Normal 6.6-10.1 [facility] Comment on above: Performed By: #### C SAI, BMP #### [facility] [address] Platelets (Bld) [#/Vol] 155 10*3/uL Normal 150-450 [facility] Comment on above: Performed By: #### C SAI, BMP #### [facility] [address] RBC (Bld) [#/Vol] 4.29 10*6/uL Normal 3.90-5.[address] [facility] Comment on above: Performed By: #### C SAI, BMP #### [facility] [address] WBC (Bld) [#/Vol] 5.1 10*3/uL Normal 4.1-10.5 [facility] Comment on above: Performed By: #### C SAI, BMP #### [address] Creatinine [Mass/volume] in Serum or PlasmaOrdered By: Silver Briceño on 08-30-2022 Creatinine [Mass/Vol] 0.99 mg/dL 0.70-1.30 [facility] ECG 12 lead ECGon 08-30-2022 ECG [address] [facility] Main [place] [address] [place] [address] Electrocardiograph Report Signed Patient: Dante Dietz MR#: [id number] : 1965 Acct:[id number] Age/Sex: 57 / M ADM Date: 08/30/22 Loc: Room: Type: [facility] Attending Dr: Silver Briceño DO Ordering Provider: Silver Briceño DO Date of Service: 08/30/2211/16/1644 ECG/ECG 12 lead ECG: pst Copies to: Test Reason : Blood Pressure : / mmHG Vent. Rate : 050 BPM Atrial Rate : 050 BPM P-R Int : 156 ms QRS Dur : 098 ms QT Int : 444 ms P-R-T Axes : 053 005 008 degrees QTc Int : 404 ms Sinus bradycardia Otherwise normal ECG No previous ECGs available Confirmed by [facility] GU[facility] ([id number][facility] on 08/31/2022 12:23:25 PM Referred By: FREDDY Electronically Signed By:LEANNA LOVE MD [facility] Transcribed By: ESTELLE Signed By Leo Love MD 08/31/22 1223 Normal [facility] Eosinophils Auto (Bld) [#/Vo l]Ordered By: Silver Briceño on 08-30-2022 Eosinophils (Bld) [#/Vol] 0.3 10*3/uL 0.0-0.45 [facility] Eosinophils/100 WBC Auto (Bl d)Ordered By: Silver Briceño on 08-30-2022 Eosinophils/100 WBC (Bld) 6.1 % . [facility] Erythrocyte distribution wid th Auto (RBC) [Ratio]Ordered By: Silver Briceño on 08-30-2022 Erythrocyte distribution width (RBC) [Ratio] 14.5 % 12.0-14.8 [facility] Glucose [Mass/volume] in Ser um or PlasmaOrdered By: Silver Briceño on 08-30-2022 Glucose [Mass/Vol] 114 mg/dL 70-100 [facility] Comment on above: ADA recommended refe rence rangeRandom Glucose Reference Range is dependent on time and content of last meal. Glucose of more than 200 mg/dL in a nonstressed, ambulatory subject supports the diagnosis of Diabetes Mellitus. Hematocrit Auto (Bld) [Volum e fraction]Ordered By: Silver Briceño on 08-30-2022 Hematocrit (Bld) [Volume fraction] 36.5 % 38.8-50.0 [facility] Hemoglobin [Mass/volume] in BloodOrdered By: Silver Briceño on 08-30-2022 Hemoglobin (Bld) [Mass/Vol] 12.5 g/dL 13.0-17.0 [facility] Leukocytes [#/volume] correc shashi for nucleated erythrocytes in Blood by Automated counOrdered By: Silver Briceño on 08-30-2022 WBC corrected for nucl RBC Auto (Bld) [#/Vol] 5.1 10*3/uL 4.1-10.5 [facility] Lymphocytes Auto (Bld) [#/Vo l]Ordered By: Silver Briceño on 08-30-2022 Lymphocytes (Bld) [#/Vol] 1.8 10*3/uL 1.00-4.8 [facility] Lymphocytes/100 WBC Auto (Bl d)Ordered By: Silver Briceño on 08-30-2022 Lymphocytes/100 WBC (Bld) 35.5 % . [facility] MCH Auto (RBC) [Entitic mass ]Ordered By: Silver Briceño on 08-30-2022 MCH (RBC) [Entitic mass] 29.2 pg 27.5-35.2 [facility] MCHC Auto (RBC) [Mass/Vol]Or dered By: Silver Briceño on 08-30-2022 MCHC (RBC) [Mass/Vol] 34.3 g/dL 32.5-35.6 [facility] MCV Auto (RBC) [Entitic vol] Ordered By: Silver Briceño on 08-30-2022 MCV (RBC) [Entitic vol] 85.1 fL 83.5-101 [facility] Monocytes Auto (Bld) [#/Vol] Ordered By: Silver Briceño on 08-30-2022 Monocytes (Bld) [#/Vol] 0.4 10*3/uL 0.0-0.8 [facility] Monocytes/100 WBC Auto (Bld) Ordered By: Silver Briceño on 08-30-2022 Monocytes/100 WBC (Bld) 8.2 % . [facility] Neutrophils Auto (Bld) [#/Vo l]Ordered By: Silver Briceño on 08-30-2022 Neutrophils (Bld) [#/Vol] 2.5 10*3/uL 1.8-7.7 [facility] Neutrophils/100 WBC Auto (Bl d)Ordered By: Silver Briceño on 08-30-2022 Neutrophils/100 WBC (Bld) 49.5 % . [facility] No Panel InformationOrdered By: Silver Briceño on 08-30-2022 Estimated GFR (CKD-EPI) > 60.0 mL/Min [facility] Creatinine Clearance (Chem N/A [facility] Nucleated erythrocytes [Pres ence] in Blood by Automated countOrdered By: Silver Briceño on 08-30-2022 Nucleated RBC Auto Ql (Bld) 0.2 /100{WBC} 0-0.5 [facility] Platelet mean volume Auto (B ld) [Entitic vol]Ordered By: Silver Briceño on 08-30-2022 Platelet mean volume (Bld) [Entitic vol] 8.8 fL 6.6-10.1 [facility] Platelets Auto (Bld) [#/Vol] Ordered By: Silver Briceño on 08-30-2022 Platelets (Bld) [#/Vol] 155 10*3/uL 150-450 [facility] Potassium [Moles/volume] in Serum or PlasmaOrdered By: Silver Briceño on 08-30-2022 Potassium [Moles/Vol] 4.0 mmol/L 3.5-5.1 [facility] RBC Auto (Bld) [#/Vol]Ordere d By: Silver Briceño on 08-30-2022 RBC (Bld) [#/Vol] 4.29 10*6/uL 3.90-5.[address] [facility] Serum or plasma anion gap de terminationOrdered By: Silver Briceño on 08-30-2022 Anion gap [Moles/Vol] 13.5 mmol/L 6.0-15.0 [facility] Sodium [Moles/volume] in Ser um or PlasmaOrdered By: Silver Briceño on 08-30-2022 Sodium [Moles/Vol] 140 mmol/L 136-145 [facility] Urea nitrogen [Mass/volume] in Serum or PlasmaOrdered By: Silver Briceño on 08-30-2022 Urea nitrogen [Mass/Vol] 21 mg/dL 7-25 [facility] WBC Auto (Bld) [#/Vol]Ordere d By: Silver Briceño on 08-30-2022 WBC (Bld) [#/Vol] 5.1 10*3/uL 4.1-10.5 [facility] GLYCOHEMOGLOBIN A1Con 2022 ADA RECOMMENDATION SEE BELOW Normal [facility] Comment on above: Result Comment: ADA RECOMMENDED LIMIT 4.0 - 6.0 ADA THERAPEUTIC TARGET < 7.0 ACTION SUGGESTED > 7.0 Performed By: #### A 1C #### [facility] [address] [place] [address] Dr. Idania Tai Glucose [Mass/Vol] 243 mg/dL Normal [facility] Comment on above: Performed By: #### A 1C #### [facility] [address] [place] [address] Dr. Idania Tai HbA1c (Bld) [Mass fraction] 10.1 % Critically high 4.5-6.2 [facility] Comment on above: Performed By: #### A 1C #### [facility] [address] [place] [address] Dr. Idania Tai LIPID PROFILEon 07-07-2022 CHOL-HDL RATIO NORM SEE BELOW Normal [facility] Comment on above: Result Comment: 3.3 - 4.4 LOW RISK 4.4 - 7.1 AVERAGE RISK 7.1 - 11.0 MODERATE RISK >11.0 HIGH RISK Performed By: #### B MP, LIPID #### [facility] [address] [place] [address] Dr. Idania Tai Cholesterol [Mass/Vol] 172 mg/dL Normal <=200 Th [facility] Comment on above: Performed By: #### B MP, LIPID #### [facility] [address] [place] [address] Dr. Idania Tai Cholesterol in HDL [Mass/Vol] 48 mg/dL Normal 40-60 [facility] Comment on above: Performed By: #### B MP, LIPID #### [facility] [address] [place] [address] Dr. Idania Tai Cholesterol in LDL [Mass/Vol] 95.6 mg/dL Normal [facility] Comment on above: Performed By: #### B MP, LIPID #### [facility] [address] [place] [address] Dr. Idania Tai Cholesterol.total/Choles terol in HDL [Mass ratio] 3.6 {ratio} Normal [facility] Comment on above: Performed By: #### B MP, LIPID #### [facility] [address] [address] [address] Idania Tai HDL NORMAL > or = 60 mg/dl - LOW CARDIOVASCULAR RISK <40 mg/dl - HIGH CARDIOVASCULAR RISK Normal [facility] Comment on above: Performed By: #### B MP, LIPID #### [facility] [address] [place] [address] Dr. Idania Tai LDL CALC NORMAL SEE BELOW Normal [facility] Comment on above: Result Comment: <100 mg/dl OPTIMAL 100 - 129 mg/dl NEAR OR ABOVE OPTIMAL 130 - 159 mg/dl BORDERLINE HIGH 160 - 189 mg/dl HIGH >190 mg/dl VERY HIGH Performed By: #### B MP, LIPID #### [facility] [address] [place] [address] Dr. Idania Tai Triglyceride [Mass/Vol] 142 mg/dL Normal <=150 [facility] Comment on above: Performed By: #### B MP, LIPID #### [facility] [address] [address] [address] Idania Tai VLDL CALC 28.4 mg/dL Normal [facility] Comment on above: Performed By: #### B MP, LIPID #### [facility] [address] [place] [address] Dr. Idania Tai PROF CHEM 8 (BAS METB)on Anion gap [Moles/Vol] 11.0 mmol/L Normal [facility] Comment on above: Performed By: #### B MP, LIPID #### [facility] [address] [place] [address] Dr. Idania Tai Calcium [Mass/Vol] 9.1 mg/dL Normal 8.5-10.1 [facility] Comment on above: Performed By: #### B MP, LIPID #### [facility] [address] [place] [address] Dr. Idania Tai Chloride [Moles/Vol] 100 mmol/L Normal 98-107 [facility] Comment on above: Performed By: #### B MP, LIPID #### [facility] [address] [place] [address] Dr. Idania Tai CO2 [Moles/Vol] 32.6 mmol/L Critically high 21.0-32.0 [facility] Comment on above: Performed By: #### B MP, LIPID #### [facility] [address] [place] [address] Dr. Idania Tai Creatinine [Mass/Vol] 0.81 mg/dL Normal 0.70-1.30 [facility] Comment on above: Performed By: #### B MP, LIPID #### [facility] [address] [address] [address] Idania Tai EGFR-AF SAMMARINESE >60 Normal >=60 [facility] Comment on above: Performed By: #### B MP, LIPID #### [facility] [address] [place] [address] Dr. Idania Tai EGFR-NON AF SAMMARINESE >60 Normal >=60 [facility] Comment on above: Performed By: #### B MP, LIPID #### [facility] [address] [place] [address] Dr. Idania Tai Glucose [Mass/Vol] 157 mg/dL Critically high 74-106 [facility] Comment on above: Performed By: #### B MP, LIPID #### [facility] [address] [place] [address] Dr. Idania Tai Potassium [Moles/Vol] 3.6 mmol/L Normal 3.5-5.1 [facility] Comment on above: Performed By: #### B MP, LIPID #### [facility] [address] [place] [address] Dr. Idania Tai Sodium [Moles/Vol] 140 mmol/L Normal 136-145 [facility] Comment on above: Performed By: #### B MP, LIPID #### [facility] [address] [place] [address] Dr. Idania Tai Urea nitrogen [Mass/Vol] 16.0 mg/dL Normal 7.0-18.0 [facility] Comment on above: Performed By: #### B MP, LIPID #### [facility] [address] [place] [address] Dr. Idania Tai Urea nitrogen/Creatinine [Mass ratio] 19.8 mg/mg Normal [facility] Comment on above: Performed By: #### B MP, LIPID #### [facility] [address] [place] [address] Dr. Idania Tai PROF CHEM 8 (BAS METB)on Anion gap [Moles/Vol] 16.1 mmol/L Normal [facility] Comment on above: Performed By: #### B MP #### [facility] [address] [place] [address] Dr. Idania Tai Calcium [Mass/Vol] 9.4 mg/dL Normal 8.5-10.1 [facility] Comment on above: Performed By: #### B MP #### [facility] [address] [place] [address] Dr. Idania Tai Chloride [Moles/Vol] 98 mmol/L Normal 98-107 [facility] Comment on above: Performed By: #### B MP #### [facility] [address] [place] [address] Dr. Idania Tai CO2 [Moles/Vol] 26.0 mmol/L Normal 21.0-32.0 [facility] Comment on above: Performed By: #### B MP #### [facility] [address] [place] [address] Dr. Idania Tai Creatinine [Mass/Vol] 0.78 mg/dL Normal 0.70-1.30 [facility] Comment on above: Performed By: #### B MP #### [facility] [address] [place] [address] Dr. Idania Tai EGFR-AF SAMMARINESE >60 Normal >=60 [facility] Comment on above: Performed By: #### B MP #### [facility] [address] [place] [address] Dr. Idania Tai EGFR-NON AF SAMMARINESE >60 Normal >=60 [facility] Comment on above: Performed By: #### B MP #### [facility] [address] [place] [address] Dr. Idania Tai Glucose [Mass/Vol] 131 mg/dL Critically high 74-106 [facility] Comment on above: Performed By: #### B MP #### [facility] [address] [address] [address] Idania Tai Potassium [Moles/Vol] 4.1 mmol/L Normal 3.5-5.1 [facility] Comment on above: Performed By: #### B MP #### [facility] [id number] Idania Tai Sodium [Moles/Vol] 136 mmol/L Normal 136-145 [facility] Comment on above: Performed By: #### B MP #### [facility] [address] [address] [address] Idania Tai Urea nitrogen [Mass/Vol] 19.0 mg/dL Critically high 7.0-18 .0 [facility] Comment on above: Performed By: #### B MP #### [facility] [address] [address] [address] Idania Tai Urea nitrogen/Creatinine [Mass ratio] 24.4 mg/mg Normal [facility] Comment on above: Performed By: #### B MP #### [facility] [id number] Idania Tai Glucose Glucometer ([facility]) [M ass/Vol]Ordered By: Sav Andrews on 12-22-2021 Glucose [Mass/Vol] 113 mg/dL [facility] Comment on above: Random Glucose Refer ence Range is dependent on time and content of last meal. Glucose of more than 200 mg/dL in a nonstressed, ambulatory subject supports the diagnosis of Diabetes Mellitus. Glucose Poct Glucometerson 0 12-22-2021 Glucose [Mass/Vol] 113 mg/dL Normal [facility] Comment on above: Result Comment: [place] Glucose Reference Range is dependent on time and content of last meal. Glucose of more than 200 mg/dL in a nonstressed, ambulatory subject supports the diagnosis of Diabetes Mellitus. PERFORMED BY: [address] [place] [address] PATHOLOGIST MICROSTRATEGY BI DEVELOPER TEOFILO KHAN M.D. Performed By: #### G RUDOLPH #### Point of Care testing , COVID-19 Antigenon 2 COVID-19 Antigen Healthcare Worker?: N Reference Range: Negative Negative results, from patients with symptom onset beyond five days, should be treated as presumptive and confirmation with a molecular assay, if necessary, for patient management, may be performed. Negative results do not rule out COVID-19 and should not be used as the sole basis for treatment or patient management decisions, including infection control decisions. Negative results should be considered in the context of a patient's recent exposures, history and the presence of clinical signs and symptoms consistent with COVID-19. The Mayra SARS Antigen SIN does not differentiate between SARS-CoV and SARS-CoV-2. This test was developed and its performance characteristic determined by [employer] and validated at [facility] [place]. This test has not been FDA cleared or approved. This test has been authorized by FDA under an Emergency Use Authorization (EUA). This test has been validated in accordance with the FDA's Guidance Document (Policy for Diagnostics Testing in Laboratories Certified to Perform High Complexity Testing under CLIA prior to Emergency Use Authorization for Coronavirus Disease-2019 during the Public Health Emergency) issued on August 27, 2019. This test is only authorized for the duration of time the declaration that circumstances exist justifying the authorization of the emergency use of in vitro diagnostic tests for detection of SARS-CoV-2 virus and/or diagnosis of COVID-19 infection under section 564(b)(1) of the Act, 21 U.S.C. 360bbb-3(b)(1), unless the authorization is terminated or revoked sooner. SARS-CoV+SARS-CoV-2 (COVID-19) Ag [Presence] in Respiratory specimen by Rapid immunoassay Negative for SARS Antigen by SIN PERFORMED BY: [facility] [address] [place] [address] PATHOLOGIST MICROSTRATEGY BI DEVELOPER TEOFILO KHAN M.D. [facility] Comment on above: Performed By: #### C OVID-19 MAYRA, SOFIANEG #### [facility] [place] [address] COVID-19 SOFIAOrdered By: Bebe Andrews on 12-20-2021 SARS-CoV+SARS-CoV-2 (COVID-19) Ag IA.rapid Ql (Resp) Negative Negative [facility] [place] Comment on above: This is a duplicate Mayra SARS Antigen (SIN) result to be used for statistical tracking purpose only. No Panel InformationOrdered By: Sav Andrews on 12-20-2021 SARS Antigen (LFIA) [facility] Mayra Ag Negativeon 12-21-19 Mayra Ag Negative Negative Normal Negative [facility] Comment on above: Result Comment: This is a duplicate Mayra SARS Antigen (SIN) result to be used for statistical tracking purpose only. PERFORMED BY: [place] [address] PATHOLOGIST MICROSTRATEGY BI DEVELOPER TEOFILO KHAN M.D. Performed By: #### C OVID-19 MAYRA, SOFIANEG #### [address] ANKLE RT WO CONon 022 CT ANKLE RT WO CON EXAMINATION: CT ANKLE RT WO CON HISTORY: Idiopathic aseptic necrosis of bone COMPARISON: 09/20/2020 TECHNIQUE: Multi-planar CT images were created without IV contrast. Dose reduction techniques were achieved by using automated exposure control and/or adjustment of mA and/or kV according to patient size and/or use of iterative reconstruction technique. 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 There is been interval continued degenerative cystic changes noted in the distal tibia at the tibial plafond and. Progression of subchondral cystic changes of the calcaneus with the largest area now measuring 1.9 x 1.4 cm sagittal image 99. There is permeative pattern of the foot suggesting underlying mild osteopenia. Moderate to severe tricompartmental osteoarthropathy of the knee with eztm-hv-zuma articulation of the lateral compartment. SOFT TISSUES: Negative. No visible soft tissue swelling. EFFUSION: None visible. OTHER: Negative. IMPRESSION: Progression of subchondral degenerative cystic changes of the tibial plafond and calcaneus Moderate to severe knee osteoarthritis with vqdg-lz-[id number] articulation of the lateral compartment Electronically authenticated by: GERA BLUM Date: 2021-11-14 16:32 Normal [facility] CBC AUTO DIFFon 09-11-2021 BASO # 0.1 103/ul Normal 0.0-0.1 [facility] Comment on above: Performed By: #### C BC ####[facility] [address] [address]Dr. Idania Tai Basophils/100 WBC (Bld) 0.8 % Normal 0.2-2.0 [facility] Comment on above: Performed By: #### C BC ####[facility] [address] [place], [place] [address]Dr. Earnestinegisselle Zaire EO # 0.2 103/ul Normal 0.0-0.7 [facility] Comment on above: Performed By: #### C BC ####[facility] [address] [place], [place] [address]Dr. Idania Zaire Eosinophils/100 WBC (Bld) 2.2 % Normal 0.9-7.0 [facility] Comment on above: Performed By: #### C BC ####[facility] [address] [place], [place] [address]Dr. Idania Tai Erythrocyte distribution width (RBC) [Ratio] 13.1 % Normal 11.0-15.0 [facility] Comment on above: Performed By: #### C BC ####[facility] [address] [place], [place] [address]Dr. Idania Tai Hematocrit (Bld) [Volume fraction] 44.5 % Normal 42.0-54.0 [facility] Comment on above: Performed By: #### C BC ####[facility] [address] [place], [place] [address]Dr. Idania Tai Hemoglobin (Bld) [Mass/Vol] 14.9 g/dL Normal 14.0-18.0 [facility] Comment on above: Performed By: #### C BC ####[facility] [address] [place], [place] [address]Dr. Idania Tai IG # 0.13 10e3/ul Critically high 0.00-0.03 [facility] Comment on above: Performed By: #### C BC ####[facility] [address] [address]Dr. Idania Tai IG % 1.5 % Critically high 0.0-0.5 [facility] Comment on above: Performed By: #### C BC ####[facility] [address] [address]Dr. Idania Tai LYMPH # 2.4 103/ul Normal 1.2-3.8 [facility] Comment on above: Performed By: #### C BC ####[facility] [address] [place], [place] [address]Dr. Idania Tai Lymphocytes/100 WBC (Bld) 27.7 % Normal 20.5-60.0 [facility] Comment on above: Performed By: #### C BC ####[facility] [address] [place], [place] [address]Dr. Idania Tai MANUAL DIFF REQ NO Normal [facility] Comment on above: Performed By: #### C BC ####[facility] [address] [place], [place] [address]Dr. Idania Zaire MCH (RBC) [Entitic mass] 28.9 pg Normal 25.9-34.0 [facility] Comment on above: Performed By: #### C BC ####[facility] [address] [place], [place] [address]Dr. Idania Zaire MCHC (RBC) [Mass/Vol] 33.5 g/dL Normal 29.9-35.2 [facility] Comment on above: Performed By: #### C BC ####[facility] [address] [place], [place] [address]DrAlly Tai MCV (RBC) [Entitic vol] 86.4 fL Normal 80.0-94.0 [facility] Comment on above: Performed By: #### C BC ####[facility] [address] [place], [place] [address]DrAlly Tai MONO # 0.6 103/ul Normal 0.3-0.8 [facility] Comment on above: Performed By: #### C BC ####[facility] [address] [place], [place] [address]Dr. Idania Tai Monocytes/100 WBC (Bld) 6.4 % Normal 1.7-12.0 [facility] Comment on above: Performed By: #### C BC ####[facility] [address] [address]Dr. Idania Tai NEUT # 5.3 103/ul Normal 1.4-6.5 [facility] Comment on above: Performed By: #### C BC ####[facility] [address] [address]Dr. Idania Tai Neutrophils/100 WBC (Bld) 61.4 % Normal 43.0-75.0 [facility] Comment on above: Performed By: #### C BC ####[facility] [address] [address]Dr. Idania Tai Platelet mean volume (Bld) [Entitic vol] 9.7 fL Normal 9.5-13.5 [facility] Comment on above: Performed By: #### C BC ####[facility] [address] [address]Dr. Idania Tai PLT 219 103/ul Normal 150-450 [facility] Comment on above: Performed By: #### C BC ####[facility] [address] [place], [place] [address]Dr. Idania Tai RBC 5.15 106/ul Normal 4.70-6.10 [facility] Comment on above: Performed By: #### C BC ####[facility] [address] [address]Dr. Idania Tai WBC 8.6 103/ul Normal 4.0-11.0 [facility] Comment on above: Performed By: #### C BC ####[facility] [address] [address]Dr. Idania Tai GLYCOHEMOGLOBIN A1Con 2021 ADA RECOMMENDATION ADA THERAPEUTIC TARGET 6.0 - 7.0 ACTION SUGGESTED > 7.0 Normal [facility] Comment on above: Performed By: #### A 1C ####[facility] [address] [place], [place] [address]Dr. Idania Tai Glucose [Mass/Vol] 128 mg/dL Normal [facility] Comment on above: Performed By: #### A 1C ####[facility] [address] [place], [place] [address]BdDr. Idania Tai HbA1c (Bld) [Mass fraction] 6.1 % Critically high <=6.0 [facility] Comment on above: Performed By: #### A 1C ####[facility] [address] [id number]. Idania Tai LIPID PROFILEon 09-11-2021 CHOL-HDL RATIO NORM SEE BELOW Normal [facility] Comment on above: Result Comment: 3.3 - 4.4 LOW RISK 4.4 - 7.1 AVERAGE RISK 7.1 - 11.0 MODERATE RISK >11.0 HIGH RISK Performed By: #### L IPID, CMP #### [facility] [address] [address] [address] Idania Tai Cholesterol [Mass/Vol] 175 mg/dL Normal <=200 [facility] Comment on above: Performed By: #### L IPID, CMP #### [facility] [address] [address] [address] Idania Tai Cholesterol in HDL [Mass/Vol] 54 mg/dL Normal 40-60 [facility] Comment on above: Performed By: #### L IPID, CMP #### [facility] [address] [address] [address] Idania Tai Cholesterol in LDL [Mass/Vol] 87.2 mg/dL Normal [facility] Comment on above: Performed By: #### L IPID, CMP #### [facility] [address] [address] [address] Idania Tai Cholesterol.total/Choles terol in HDL [Mass ratio] 3.2 {ratio} Normal [facility] Comment on above: Performed By: #### L IPID, CMP #### [facility] [address] [address] [address] Idania Tai HDL NORMAL > or = 60 mg/dl - LOW CARDIOVASCULAR RISK <40 mg/dl - HIGH CARDIOVASCULAR RISK Normal [facility] Comment on above: Performed By: #### L IPID, CMP #### [facility] [address] [address] [address] Idania Tai LDL CALC NORMAL SEE BELOW Normal [facility] Comment on above: Result Comment: <100 mg/dl OPTIMAL 100 - 129 mg/dl NEAR OR ABOVE OPTIMAL 130 - 159 mg/dl BORDERLINE HIGH 160 - 189 mg/dl HIGH >190 mg/dl VERY HIGH Performed By: #### L IPID, CMP #### [facility] [address] [address] [address] Idania Tai Triglyceride [Mass/Vol] 169 mg/dL Critically high <=150 [facility] Comment on above: Performed By: #### L IPID, CMP #### [facility] [address] [address] [address] Idania Tai VLDL CALC 33.8 mg/dL Normal [facility] Comment on above: Performed By: #### L IPID, CMP #### [facility] [address] [address] [address] Idania Tai MICROALBUMIN, RAND URon 08-25 mALB 1.9 mg/L Normal <=30.0 [facility] Comment on above: Performed By: #### M ALBR #### [facility] [address] [address] [address] Idania Tai PROF 14(COMP METB)on 022 Albumin [Mass/Vol] 3.7 g/dL Normal 3.4-5.0 [facility] Comment on above: Performed By: #### L IPID, CMP #### [facility] [address] [address] [address] Idania Tai Albumin/Globulin [Mass ratio] 0.9 {ratio} Normal [facility] Comment on above: Performed By: #### L IPID, CMP #### [facility] [address] [address] [address] Idania Tai ALP [Catalytic activity/Vol] 73 U/L Normal 46-116 [facility] Comment on above: Performed By: #### L IPID, CMP #### [facility] [address] [address] [address] Idania Tai ALT [Catalytic activity/Vol] 68 U/L Critically high 16-63 [facility] Comment on above: Performed By: #### L IPID, CMP #### [facility] [address] [address] [address] Idania Tai Anion gap [Moles/Vol] 10.2 mmol/L Normal [facility] Comment on above: Performed By: #### L IPID, CMP #### [facility] [address] [address] [address] Idania Tai AST [Catalytic activity/Vol] 30 U/L Normal 15-37 [facility] Comment on above: Performed By: #### L IPID, CMP #### [facility] [address] [place] [address] Dr. Idania Tai Bilirubin [Mass/Vol] 1.0 mg/dL Normal 0.2-1.3 [facility] Comment on above: Performed By: #### L IPID, CMP #### [facility] [address] [address] [address] Idania Tai Calcium [Mass/Vol] 8.5 mg/dL Normal 8.5-10.1 [facility] Comment on above: Performed By: #### L IPID, CMP #### [facility] [address] [address] [address] dIania Tai Chloride [Moles/Vol] 101 mmol/L Normal 98-107 [facility] Comment on above: Performed By: #### L IPID, CMP #### [facility] [address] [address] [address] Idania Tai CO2 [Moles/Vol] 31.6 mmol/L Critically high 22.0-30.0 [facility] Comment on above: Performed By: #### L IPID, CMP #### [facility] [address] [address] [address] Idania Tai Creatinine [Mass/Vol] 0.67 mg/dL Normal 0.66-1.25 [facility] Comment on above: Performed By: #### L IPID, CMP #### [facility] [address] [address] [address] Idania Tai EGFR-AF SAMMARINESE >60 Normal >=60 [facility] Comment on above: Performed By: #### L IPID, CMP #### [facility] [address] [address] [address] Idania Tai EGFR-NON AF SAMMARINESE >60 Normal >=60 [facility] Comment on above: Performed By: #### L IPID, CMP #### [facility] [address] [address] [address] Idania Tai Globulin (S) [Mass/Vol] 4.0 g/dL Normal [facility] Comment on above: Performed By: #### L IPID, CMP #### [facility] [address] [address] [address] Idania Tai Glucose [Mass/Vol] 114 mg/dL Critically high 74-106 [facility] Comment on above: Performed By: #### L IPID, CMP #### [facility] [address] [address] [address] Idania Tai Potassium [Moles/Vol] 4.8 mmol/L Normal 3.4-5.0 [facility] Comment on above: Performed By: #### L IPID, CMP #### [facility] [address] [address] [address] Idania Tai Protein [Mass/Vol] 7.7 g/dL Normal 6.1-8.2 [facility] Comment on above: Performed By: #### L IPID, CMP #### [facility] [address] [address] [address] Idania Tai Sodium [Moles/Vol] 138 mmol/L Normal 137-145 [facility] Comment on above: Performed By: #### L IPID, CMP #### [facility] [address] [address] [address] Idania Tai Urea nitrogen [Mass/Vol] 12.0 mg/dL Normal 7.0-18.0 [facility] Comment on above: Performed By: #### L IPID, CMP #### [facility] [address] [address] [address] Idania Tai Urea nitrogen/Creatinine [Mass ratio] 17.9 mg/mg Normal [facility] Comment on above: Performed By: #### L IPID, CMP #### [facility] [id number] Idanai Tai Vital Signs Date Time Vital Sign Value Performing Clinician Faci lity 09-10-2022 13:15-0400 Diastolic blood pressure 64 mm[Hg] MD Shaikh Baker Work Phone: [facility] 09-10-2022 13:15-0400 Heart rate 54 /min MD Shaikh Baker Work Phone: [facility] 09-10-2022 13:15-0400 Respiratory rate 16 /min MD Shaikh Baker Work Phone: [facility] 09-10-2022 13:15-0400 SaO2% (BldA) [Mass fraction] 97 % MD Shaikh Baker Work Phone: [facility] 09-10-2022 13:15-0400 Systolic blood pressure 100 mm[Hg] MD Shaikh Baker Work Phone: [facility] 09-10-2022 12:25-0400 Body temperature 97.5 [degF] MD Shaikh Baker Work Phone: [facility] 09-10-2022 11:55-0400 Inhaled oxygen flow rate 8 L/min MD Shaikh Baker Work Phone: [facility] 09-10-2022 10:54-0400 Body height 165.1 cm MD Shaikh Baker Work Phone: [facility] 09-10-2022 10:54-0400 Body mass index (BMI) [Ratio] 38.6 kg/m2 MD Shaikh Baker Work Phone: [facility] 09-10-2022 10:54-0400 Body weight 105.4 kg MD Shaikh Baker Work Phone: [facility] 12-22-2021 10:00-0400 Diastolic blood pressure 87 mm[Hg] MD Sav Andrews Work Phone: [facility] 12-22-2021 10:00-0400 Heart rate 54 /min MD Sav Andrews Work Phone: [facility] 12-22-2021 10:00-0400 Respiratory rate 18 /min MD Sav Andrews Work Phone: [facility] 12-22-2021 10:00-0400 SaO2% (BldA) [Mass fraction] 100 % MD Sav Andrews Work Phone: [facility] 12-22-2021 10:00-0400 Systolic blood pressure 139 mm[Hg] MD Sav Andrews Work Phone: [facility] 12-22-2021 07:37-0400 Body height 170.18 cm MD Sav Andrews Work Phone: [facility] 12-22-2021 07:37-0400 Body temperature 97.9 [degF] MD Sav Andrews Work Phone: [facility] 12-22-2021 07:37-0400 Body weight 81.64 kg MD Sav Andrews Work Phone: [facility] Encounters Encounter Date Encounter Type Care Provider Facility Start: 09-10-2022 [facility] Start: 09-10-2022 End: 09-10-2022 Admission to same day surgery center MD Shaikh Baker Work Phone: [facility] [place] Start: 09-10-2022 End: 09-10-2022 ambulatory MD Shaikh Baker Work Phone: [facility] Work Phone: Start: 08-30-2022 End: 08-30-2022 ambulatory Silver Briceño Facility:[facility] Start: 08-30-2022 End: 08-30-2022 ambulatory MD Shaikh Baker Work Phone: [facility] Work Phone: Start: 08-30-2022 End: 08-30-2022 Patient encounter procedure MD Shaikh Baker Work Phone: [facility] Work Phone: Start: 07-07-2022 End: 07-08-2022 ambulatory SHAIKH Adan BAKER Facility:[facility] Start: 03-13-2022 End: 03-14-2022 ambulatory SHAIKH Adan BAKER Facility:[facility] Start: 12-22-2021 End: 12-22-2021 ambulatory Sav Andrews Facility:[facility] Start: 12-22-2021 End: 12-22-2021 Admission to same day surgery center MD Sav Andrews Work Phone: [facility] Start: 12-20-2021 End: 12-20-2021 ambulatory Sav Andrews Facility:[facility] Start: 12-20-2021 End: 12-20-2021 Patient encounter procedure MD Sav Andrews Work Phone: [facility] Start: 11-14-2021 End: 11-15-2021 ambulatory REY ALCARAZ Facility:[facility] Start: 10-25-2021 End: 10-26-2021 ambulatory REY ALCARAZ Facility:[facility] Start: 09-11-2021 End: 09-12-2021 ambulatory SHAIKH Adan BAKER Facility:[facility] Start: 09-05-2021 End: 09-06-2021 ambulatory LIZETH MARTIN Facility:[facility] Start: 08-03-2021 End: 08-03-[address] ASA AL Facility:[facility] Procedures Date Procedure Procedure Detail Performing Clinician Start: 09-10-2022 Hemorrhoidectomy MD Beltran Baker Work Phone: Start: 12-22-2021 Screening colonoscopy Ev Andrews Work Phone: SARS Antigen (LFIA) MD Fuentes Andrews Work Phone: Plan of Treatment Date Care Activity Detail Author Start: 09-10-2022 End: 09-10-2022 [facility] Start: 12-22-2021 [facility] Work Phone: Patient Education Hemorrhoids [facility] Work Phone: Immunizations Immunization Date Immunization Notes Care Provider Fa [facility] 10-10-2020 COVID-19 mRNA Comirnatjoey (Pfizer) MD Sav Andrews Work Phone: [facility] 09-19-2020 COVID-19 mRNA Comirmichelle (Pfizer) MD Sav Andrews Work Phone: [facility] Payers Date Payer Category Payer Self-pay [id number] 1965 Unknown [id number] 2.16.84 [id number] 1965 Unknown [id number] 2.16.84 [id number] 1966 Unknown [id number] 2.16.84 [id number]. 1966 Unknown [id number] .16.84 [id number] 1966 Unknown [id number] 2.16.84 0.1.310161.3.579.2. 1966 Unknown [id number] 2.16.84 [id number] 1966 Unknown [id number] 2.16.84 [id number] 1959 Unknown [id number] Unknown [id number] 2.16.8 [id number] Unknown [id number] 2.16.8 [id number] Unknown [id number] 2.16.8 [id number] Unknown [id number] 2.16.8 [id number] Social History Date Type Detail Facility Start: 12-22-2021 End: 09-10-2022 Tobacco smoking status NHIS Ex-smoker (finding) [facility] Start: 1965 Sex Assigned At Male [facility] Goals Date Patient Goal Desired Activity /State Procedure note 12-22-2021 Note Date & Type Note Facility 12-22-2021 Procedure note [facility] Clinical Note 10-26-2021 Note Date & Type Note Facility 10-26-2021 Note PROCEDURE: XR ANKLE RT MIN 3 VIEWS HISTORY: Pain of right ankle joint COMPARISON: XR ankle right 09/05/2021 FINDINGS: BONES:Prosthetic replacement of the talus; no appreciable hardware fracture or change in alignment. No bone fracture, dislocation, or lesion. SOFT TISSUES:Soft tissue swelling anterior to the ankle joints, not significantly changed. EFFUSION:None visible. OTHER: Negative. IMPRESSION: 1. Stable surgical changes without evidence of hardware failure or change in alignment. 2. No acute or suspicious bone abnormality. Electronically authenticated by: MICHELLE IBRAHIM Date: 2021-10-26 08:54 [facility] Clinical Note 09-05-2021 Note Date & Type Note Facility 09-05-2021 Note PROCEDURE: XR ANKLE RT MIN 3 VIEWS COMPARISON: None. 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 No acute fracture, dislocation or mechanical failure. Stable degenerative changes. Mild enthesopathic spurring of the calcaneus SOFT TISSUES:Mild soft tissue swelling EFFUSION:None visible. OTHER: Negative. IMPRESSION: Stable talus arthroplasty Electronically authenticated by: GERA BLUM Date: 2021-09-05 15:22 [facility] Evaluation note Note Date & Type Note Facility Evaluation note No assessment information availa ble [facility] Work Phone: History and physical note Note Date & Type Note Facility History and physical note Note Date/Time December 22, 2021 9:32 am [facility] [address] [place] [address] Gastroenterology H&P Signed Patient: Dante Dietz MR #: [id number] : 1965 Acct:[id number] Age/Sex: 56 / M Adm Date: 2 Loc: Room: Type: [facility] Attending Dr: Sav Andrews MD Copies to: MD Shaikh Samuel Souza MD~ Date of Service: 12/22/2021 HISTORY & PHYSICAL: Patient's history with special attention to the cardiovascular, pulmonary systems and the current problem was reviewed with the patient immediately prior to the procedure. Present medications and doses reviewed in the EMR. Allergies and pertinent laboratory tests were also reviewedat this time in the EMR. The physical examination, as below, was then performed. Indication, assessment and HPI: 56-year-old male presents for average risk screening Family history of GI malignancy? No PHYSICAL EXAMINATION Mouth and Pharynx : Moist mucus membranes, normal dentition Cardiac: Regular rate, regular rhythm Pulmonary: Clear to auscultation bilaterally, no wheezing Neurological: Alert and oriented x3, no focal deficits noted Abdomen: Abdomen soft, non-tender REVIEW OF SYSTEMS Constitutional: Denies malaise, fevers Cardiovascular: Denies chest pain, palpitations Respiratory: Denies shortness of breath, wheezing Gastrointestinal: Per HPI Genitourinary: Denies dysuria, polyuria Musculoskeletal: Denies joint swelling, joint stiffness Neurological: Denies numbness, tingling Integumentary: Denies rashes, skin lesions Endocrine: Denies fatigue, weight loss Written informed consent obtained from the patient. Risks (including but not limited to perforation, infection, bloating, bleeding, need for emergent surgeryand loss of life), benefits and alternatives explained and questions answered. The patient verbalized understanding. Based on history patient is an appropriate candidate for the procedure. Sav Andrews MD Documented By: Sav Andrews MD 12/22/21930 Signed By: <Electronically signed by Sav Andrews MD> 12/22/21931 [facility] Work Phone: Chief Complaint and Reason for Visit Chief Complaint Screening Screening Chief Complaint Hemorrhoids, Rectal Bleeding Chief Complaint Hemorrhoids, Rectal Bleeding Hemorrhoids, Rectal Bleeding Advance Directives No Advanced Directives Records Found Advance Directive Response Recorded Date/ Time Advance Directives No December 20 3:46pm Summary Purpose Family History Relationship Condition Age at Onset Recorded Date/T betty father Cerebrovascular accident (CVA) Unknown sister Type 2 diabetes mellitus Unknown No Family History Records Found Additional Source Comments Care Teams (unrecognized sec tion and content) Team Status: Inactive Member Role Status Dates Sav Andrews MD Attending Provider Active Team Status: Inactive Member Role Status Dates Sav Andrews MD Attending Provider Active Shaikh Samuel MD Primary Care Provider Active Team Status: Active Member Role Status Mariana Baker MD Primary Care Provider Active Team Status: Inactive Member Role Status Dates Shaikh Samuel MD Primary Care Provider Active Silver Briceño DO Attending Provider Active (unrecognized sect ion and content) No Status Records FoundNo Status Records Found INFORMATION SOURCE (unrecogn ized section and content) DATE CREATED AUTHOR 07/14/2022 [facility] DATE CREATED AUTHOR 'S ORGANIZ ATION 10/02/2022 [facility] Goals (unrecognized section and content) Goals may be documented in a n alternate section FOR RECORDS PERTAINING TO PATIENTS WHO ARE OR HAVE BEEN ENROLLED IN A CHEMICAL DEPENDENCY/SUBSTANCEABUSE PROGRAM, SOME INFORMATION MAY BE OMITTED. This clinical summary was aggregated from multiple sources. Caution should be exercised in using it in the provision of clinical care. This summary normalizes information from multiple sources, and as a consequence, information in this document may materially change the coding, format and clinical context of patient data. In addition, data may be omitted in some cases. CLINICAL DECISIONS SHOULD BE BASED ON THE PRIMARY CLINICAL RECORDS. [facility]. provides no warranty or guarantee of the accuracy or completeness of information in this document.
== END 2023-05-23 14:03 | disposition home or self-care (01) ==
LOC: RAD 14:02
PROVIDERS: PCP Internal Medicine; Visit Provider Podiatrist Foot & Ankle Surgery
DX: M19.071 Primary osteoarthritis, right ankle and foot (principal)
CPT/HCPCS: 73610; 73630

== ENCOUNTER 2023-06-05 14:46 | Outpatient (OUT) | payer BC, SELFPAY ==
--- NOTE | 2023-06-05 | XR_ITS ---
The [address] [address] Patient Name: LAVERN GARCIA MRN: [id number] date: 1965 Sex: M Assigned Patient Location: [facility] Current Patient Location: Accession/Order Number: [id number] Exam Date: 06/05/2023 15:01 Report Date: 06/06/2023 07:20 At the request of: REY ALCARAZ Procedure: XR ankle RT min 3V PROCEDURE: XR ankle RT min 3V COMPARISON: 05/23/2023 HISTORY: RIGHT ANKLE PAIN FINDINGS: BONES:Stable ankle fusion with talar implant utilizing a retrograde intramedullary nail and proximally and distally. Heterotopic bone graft material. Permanent pattern of the midfoot suggests osteopenia. No acute fracture, dislocation or mechanical failure SOFT TISSUES:Negative. No visible soft tissue swelling. EFFUSION:None visible. OTHER: Negative. XR/XR ankle RT min 3V IMPRESSION: Stable subtalar fusion with interval development of osteopenia Electronically authenticated by: GERA BLUM Date: 06/06/2023 07:20
--- OUTSIDE RECORDS SUMMARY | 2023-06-05 14:57 | XMS_ITS | CCD ---
Author Name Unknown Address [address] [place] [address] Organization [facility] Care Team Providers Care Compliance Clerk Name Role Phone MD Sav Andrews Attending Provider [phone] MD Deana Baker Primary Care Provider DR [...] Unavailable DR MICHELLE IBRAHIM Consulting Unavailable REY ALCARAZ Consulting Unavailable REY ALCARAZ Admitting Unavailable KULWANT, [...] Unavailable MD Deana Baker Primary Care Provider DO Silver Briceño Attending Provider Sav Andrews Attending Unavailable Sav Andrews Admitting [facility] Silver Briceño Attending Unavailable Silver Briceño Admitting Unavailable [facility] Unavailable Sav Andrews Admitting Unavailable Sav Andrews Attending Unavailable Silver Briceño Attending Unavailable Silver Briceño Admitting Unavailable [facility] Unavailable Medications Current Medications Medication Drug Class(es) Dates Sig (Normalized) Sig (Original) [id number] 200 actuat albuterol 0.09 mg/actuat metered dose [...] MG PO Daily December 22, 2021 12:00am [place] 7-Atj-Msd-Fish Oil (Fish Oil) 1,200 (144-216) mg Capsule (4 sources) Start: 12-22-2021 take 1 capsule by mouth twice daily [place] 8-Nlk-Big-Fish Oil (Fish Oil) 1,200 (144-216) mg Capsule [...] Briceño on 09-10-2022 Glucose [Mass/Vol] 137 mg/dL [facility] Comment on above: Random Glucose Refer ence Range is dependent on time and content of last meal. Glucose of more than 200 mg/dL in a nonstressed, ambulatory subject supports the diagnosis of Diabetes Mellitus. Glucose [Mass/Vol] 131 mg/dL [facility] Comment on above: Random Glucose Refer ence Range is dependent on time and content of last meal. Glucose of more than 200 mg/dL in a nonstressed, ambulatory subject supports the diagnosis of Diabetes Mellitus. Glucose Poct Glucometerson 0 09-10-2022 Glucose [Mass/Vol] 137 mg/dL Normal [facility] Comment on above: Result Comment: [place] om Glucose Reference Range is dependent on time and content of last meal. Glucose of more than 200 mg/dL in a nonstressed, ambulatory subject supports the diagnosis of Diabetes Mellitus. PERFORMED BY: [place] [address] PATHOLOGIST ASSISTANT KITCHEN MANAGER TEOFILO KHAN M.D. Performed By: #### G LULS #### Point of Care testing , Glucose [Mass/Vol] 131 mg/dL Normal [facility] Comment on above: Result Comment: [place] om Glucose Reference Range is dependent on time and content of last meal. Glucose of more than 200 mg/dL in a nonstressed, ambulatory subject supports the diagnosis of Diabetes Mellitus. PERFORMED BY: [place] [address] PATHOLOGIST ASSISTANT KITCHEN MANAGER TEOFILO KHAN M.D. Performed By: #### G LULS #### Point of Care testing , Basic Metabolic Panelon Anion gap [Moles/Vol] 13.5 mmol/L Normal 6.0-15.0 [facility] Comment on above: Performed By: #### C BC, BMP #### [address] Calcium [Mass/Vol] 9.4 mg/dL Normal 8.6-10.[address] [facility] Comment on above: Result Comment: PERF ORMED BY: [place] [address] PATHOLOGIST ASSISTANT KITCHEN MANAGER TEOFILO KHAN M.D. Performed By: #### C BC, BMP #### [facility] [address] [place] [address] [place] Chloride [Moles/Vol] 102 mmol/L Normal 98-107 [facility] Comment on above: Performed By: #### C BC, BMP #### [facility] [address] [place] [address] [place] CO2 [Moles/Vol] 28.5 mmol/L Normal 21.0-31.0 [facility] Comment on above: Performed By: #### C BC, BMP #### [facility] [address] [place] [address] [place] Creatinine [Mass/Vol] 0.99 mg/dL Normal 0.70-1.30 [facility] Comment on above: Performed By: #### C BC, BMP #### [facility] [address] [place] [address] [place] GFR/1.73 sq M.predicted MDRD (S/P/Bld) [Vol rate/Area] mL/min/{1.73_m2} Normal [facility] Comment on above: Performed By: #### C BC, BMP #### [place] [address] [place] Glucose [Mass/Vol] 114 mg/dL High 70-[address] [facility] Comment on above: Result Comment: [place] Glucose Reference Range is dependent on time and content of last meal. Glucose of more than 200 mg/dL in a nonstressed, ambulatory subject supports the diagnosis of Diabetes Mellitus. ADA recommended reference range Performed By: #### C BC, BMP #### [facility] [address] [place] [address] [place] Potassium [Moles/Vol] 4.0 mmol/L Normal 3.5-5.1 [facility] Comment on above: Performed By: #### C BC, BMP #### [facility] [address] Sodium [Moles/Vol] 140 mmol/L Normal 136-[address] [facility] Comment on above: Performed By: #### C BC, BMP #### [facility] [address] Urea nitrogen [Mass/Vol] 21 mg/dL Normal 7-25 [facility] Comment on above: Performed By: #### C BC, BMP #### [facility] [address] Basophils Auto (Bld) [#/Vol] Ordered By: Silver Briceño on 08-30-2022 Basophils (Bld) [#/Vol] 0.0 10*3/uL 0.0-0.2 [facility] Basophils/100 WBC Auto (Bld) Ordered By: Silver Briceño on 08-30-2022 Basophils/100 WBC (Bld) 0.7 % . [facility] Calcium [Mass/volume] in Ser um or PlasmaOrdered By: Silver Briceño on 08-30-2022 Calcium [Mass/Vol] 9.4 mg/dL 8.6-10.[address] [facility] Carbon dioxide, total [Moles /volume] in Serum or PlasmaOrdered By: Silver Briceño on 08-30-2022 CO2 [Moles/Vol] 28.5 mmol/L 21.0-31.0 [facility] Chloride [Moles/volume] in S gela or PlasmaOrdered By: Silver Briceño on 08-30-2022 Chloride [Moles/Vol] 102 mmol/L 98-107 [facility] Complete Blood Count Auto Di ffon 08-30-2022 Basophils (Bld) [#/Vol] 0.0 10*3/uL Normal 0.0-0.2 [facility] Comment on above: Result Comment: PERF ORMED BY: [place] [address] PATHOLOGIST ASSISTANT KITCHEN MANAGER TEOFILO KHAN M.D. Performed By: #### C BC, BMP #### [address] [place] [address] [place] Basophils/100 WBC (Bld) 0.7 % Normal . [facility] Comment on above: Performed By: #### C BC, BMP #### [facility] [address] Eosinophils (Bld) [#/Vol] 0.3 10*3/uL Normal 0.0-0.45 [facility] Comment on above: Performed By: #### C BC, BMP #### [facility] [address] Eosinophils/100 WBC (Bld) 6.1 % Normal . [facility] Comment on above: Performed By: #### C BC, BMP #### [address] Erythrocyte distribution width (RBC) [Ratio] 14.5 % Normal 12.0-14.8 [facility] Comment on above: Performed By: #### C BC, BMP #### [address] Hematocrit (Bld) [Volume fraction] 36.5 % Low 38.8-50.0 [facility] Comment on above: Performed By: #### C BC, BMP #### [address] Hemoglobin (Bld) [Mass/Vol] 12.5 g/dL Low 13.0-17.0 [facility] Comment on above: Performed By: #### C BC, BMP #### [address] Lymphocytes (Bld) [#/Vol] 1.8 10*3/uL Normal 1.00-4.8 [facility] Comment on above: Performed By: #### C BC, BMP #### [address] Lymphocytes/100 WBC (Bld) 35.5 % Normal . [facility] Comment on above: Performed By: #### C BC, BMP #### [address] MCH (RBC) [Entitic mass] 29.2 pg Normal 27.5-35.2 [facility] Comment on above: Performed By: #### C BC, BMP #### [address] MCV (RBC) [Entitic vol] 85.1 fL Normal 83.5-101 [facility] Comment on above: Performed By: #### C BC, BMP #### [address] Mean Corpuscular HGB Conc 34.3 g/dL Normal 32.5-35.6 [facility] Comment on above: Performed By: #### C BC, BMP #### [address] Monocytes (Bld) [#/Vol] 0.4 10*3/uL Normal 0.0-0.8 [facility] Comment on above: Performed By: #### C BC, BMP #### [address] Monocytes/100 WBC (Bld) 8.2 % Normal . [facility] Comment on above: Performed By: #### C BC, BMP #### [address] Neutrophils (Bld) [#/Vol] 2.5 10*3/uL Normal 1.8-7.7 [facility] Comment on above: Performed By: #### C BC, BMP #### [address] Neutrophils/100 WBC (Bld) 49.5 % Normal . [facility] Comment on above: Performed By: #### C BC, BMP #### [address] NRBC% 0.2 /100{WBC} Normal 0-0.5 [facility] Comment on above: Performed By: #### C BC, BMP #### [address] Platelet mean volume (Bld) [Entitic vol] 8.8 fL Normal 6.6-10.1 [facility] Comment on above: Performed By: #### C SAI, BMP #### [facility] [address] Platelets (Bld) [#/Vol] 155 10*3/uL Normal 150-450 [facility] Comment on above: Performed By: #### C SAI, BMP #### [facility] [address] RBC (Bld) [#/Vol] 4.29 10*6/uL Normal 3.90-5.60 [facility] Comment on above: Performed By: #### C SAI, BMP #### [facility] [address] WBC (Bld) [#/Vol] 5.1 10*3/uL Normal 4.1-10.[address] [facility] Comment on above: Performed By: #### C SAI, BMP #### [address] Creatinine [Mass/volume] in Serum or PlasmaOrdered By: Silvre Briceño on 08-30-2022 Creatinine [Mass/Vol] 0.99 mg/dL 0.70-1.30 [facility] ECG 12 lead ECGon 08-30-2022 ECG 12 lead ECG [facility] [place] [address] [place] [address] Electrocardiograph Report Signed Patient: Dante Dietz MR#: [id number] : 1965 Acct:[id number] Age/Sex: 57 / M ADM Date: 08/30/22 Loc: Room: Type: [facility] Attending Dr: Silver Briceño DO Ordering Provider: [...] previous ECGs available Confirmed by [facility]A [id number] on 08/31/2022 12:23:25 PM Referred By: FREDDY Electronically Signed By:LEANNA LOVE MD [facility] Transcribed By: ESTELLE Signed By Leo Love MD 08/31/22 1223 Normal [facility] Eosinophils Auto (Bld) [#/Vo l]Ordered By: Silver Briceño on 08-30-2022 Eosinophils (Bld) [#/Vol] 0.3 10*3/uL 0.0-0.45 [facility] Eosinophils/100 WBC Auto (Bl d)Ordered By: Silver Briceño on 08-30-2022 Eosinophils/100 WBC (Bld) 6.1 % . [facility] Erythrocyte distribution wid th Auto (RBC) [Ratio]Ordered By: Silver Briceño on 08-30-2022 Erythrocyte distribution width (RBC) [Ratio] 14.5 % 12.0-14.8 [facility] Glucose [Mass/volume] in Ser um or PlasmaOrdered By: Silver Briceño on 08-30-2022 Glucose [Mass/Vol] 114 mg/dL 70-[address] [facility] Comment on above: ADA recommended refe rence rangeRandom Glucose Reference Range is dependent on time and content of last meal. Glucose of more than 200 mg/dL in a nonstressed, ambulatory subject supports the diagnosis of Diabetes Mellitus. Hematocrit Auto (Bld) [Volum e fraction]Ordered By: Silver Briceño on 08-30-2022 Hematocrit (Bld) [Volume fraction] 36.5 % 38.8-50.0 [facility] Hemoglobin [Mass/volume] in BloodOrdered By: Silver Briceño on 08-30-2022 Hemoglobin (Bld) [Mass/Vol] 12.5 g/dL 13.0-17.0 [facility] Leukocytes [#/volume] correc shashi for nucleated erythrocytes in Blood by Automated counOrdered By: Silver Briceño on 08-30-2022 WBC corrected for nucl RBC Auto (Bld) [#/Vol] 5.1 10*3/uL 4.1-10.5 [facility] Lymphocytes Auto (Bld) [#/Vo l]Ordered By: Silver Briceño on 08-30-2022 Lymphocytes (Bld) [#/Vol] 1.8 10*3/uL 1.00-4.8 [facility] Lymphocytes/100 WBC Auto (Bl d)Ordered By: Silver Briceño on 08-30-2022 Lymphocytes/100 WBC (Bld) 35.5 % . [facility] MCH Auto (RBC) [Entitic mass ]Ordered By: Silver Briceño on 08-30-2022 MCH (RBC) [Entitic mass] 29.2 pg 27.5-35.2 [facility] MCHC Auto (RBC) [Mass/Vol]Or dered By: Silver Briceño on 08-30-2022 MCHC (RBC) [Mass/Vol] 34.3 g/dL 32.5-35.6 [facility] MCV Auto (RBC) [Entitic vol] Ordered By: Silver Briceño on 08-30-2022 MCV (RBC) [Entitic vol] 85.1 fL 83.5-101 [facility] Monocytes Auto (Bld) [#/Vol] Ordered By: Silver Briceño on 08-30-2022 Monocytes (Bld) [#/Vol] 0.4 10*3/uL 0.0-0.8 [facility] Monocytes/100 WBC Auto (Bld) Ordered By: Silver Briceño on 08-30-2022 Monocytes/100 WBC (Bld) 8.2 % . [facility] Neutrophils Auto (Bld) [#/Vo l]Ordered By: Silver Briceño on 08-30-2022 Neutrophils (Bld) [#/Vol] 2.5 10*3/uL 1.8-7.7 [facility] Neutrophils/100 WBC Auto (Bl d)Ordered By: Silver Briceño on 08-30-2022 Neutrophils/100 WBC (Bld) 49.5 % . [facility] No Panel InformationOrdered By: Silver Briceño on 08-30-2022 Estimated GFR (CKD-EPI) > 60.0 mL/Min [facility] Creatinine Clearance (Chem N/A [facility] Nucleated erythrocytes [Pres ence] in Blood by Automated countOrdered By: Silver Briceño on 08-30-2022 Nucleated RBC Auto Ql (Bld) 0.2 /100{WBC} 0-0.5 [facility] Platelet mean volume Auto (B ld) [Entitic vol]Ordered By: Silver Briceño on 08-30-2022 Platelet mean volume (Bld) [Entitic vol] 8.8 fL 6.6-10.1 [facility] Platelets Auto (Bld) [#/Vol] Ordered By: Silver Briceño on 08-30-2022 Platelets (Bld) [#/Vol] 155 10*3/uL 150-450 [facility] Potassium [Moles/volume] in Serum or PlasmaOrdered By: Silver Briceño on 08-30-2022 Potassium [Moles/Vol] 4.0 mmol/L 3.5-5.1 [facility] RBC Auto (Bld) [#/Vol]Ordere d By: Silver Briceño on 08-30-2022 RBC (Bld) [#/Vol] 4.29 10*6/uL 3.90-5.60 [facility] Serum or plasma anion gap de terminationOrdered By: Silver Briceño on 08-30-2022 Anion gap [Moles/Vol] 13.5 mmol/L 6.0-15.0 [facility] Sodium [Moles/volume] in Ser um or PlasmaOrdered By: Silver Briceño on 08-30-2022 Sodium [Moles/Vol] 140 mmol/L 136-[address] [facility] Urea nitrogen [Mass/volume] in Serum or PlasmaOrdered By: Silver Briceño on 08-30-2022 Urea nitrogen [Mass/Vol] 21 mg/dL 7-25 [facility] WBC Auto (Bld) [#/Vol]Ordere d By: Silver Briceño on 08-30-2022 WBC (Bld) [#/Vol] 5.1 10*3/uL 4.1-10.[address] [facility] GLYCOHEMOGLOBIN A1Con 2022 ADA RECOMMENDATION SEE BELOW Normal [facility] Comment on above: Result Comment: ADA RECOMMENDED LIMIT 4.0 - 6.0 ADA THERAPEUTIC TARGET < 7.0 ACTION SUGGESTED > 7.0 Performed By: #### A 1C #### [facility] [address] [place] [address] Dr. Idania Tai Glucose [Mass/Vol] 243 mg/dL Normal [facility] Comment on above: Performed By: #### A 1C #### [facility] [address] [place] [address] Dr. Idania Tai HbA1c (Bld) [Mass fraction] 10.1 % Critically high 4.5-6.2 [facility] Comment on above: Performed By: #### A 1C #### [facility] [address] [place] [address] Dr. Idania Tai LIPID PROFILEon 07-07-2022 CHOL-HDL RATIO NORM SEE BELOW Normal [facility] Comment on above: Result Comment: 3.3 - 4.4 LOW RISK 4.4 - 7.1 AVERAGE RISK 7.1 - 11.0 MODERATE RISK >11.0 HIGH RISK Performed By: #### B MP, LIPID #### [facility] [address] [place] [address] Dr. Idania Tai Cholesterol [Mass/Vol] 172 mg/dL Normal <=200 [facility] Comment on above: Performed By: #### B MP, LIPID #### [facility] [address] [place] [address] Dr. Idania Tai Cholesterol in HDL [Mass/Vol] 48 mg/dL Normal 40-60 [facility] Comment on above: Performed By: #### B MP, LIPID #### [facility] [address] [place] [address] Dr. Idania Tai Cholesterol in LDL [Mass/Vol] 95.6 mg/dL Normal [facility] Comment on above: Performed By: #### B MP, LIPID #### [facility] [address] [place] [address] Dr. Idania Tai Cholesterol.total/Choles terol in HDL [Mass ratio] 3.6 {ratio} Normal [facility] Comment on above: Performed By: #### B MP, LIPID #### [facility] [address] [address] [address] Idania Tai HDL NORMAL > or = 60 mg/dl - LOW CARDIOVASCULAR RISK <40 mg/dl - HIGH CARDIOVASCULAR RISK Normal [facility] Comment on above: Performed By: #### B MP, LIPID #### [facility] [address] [place] [address] Dr. Idania Tai LDL CALC NORMAL SEE BELOW Normal [facility] Comment on above: Result Comment: <100 mg/dl OPTIMAL 100 - 129 mg/dl NEAR OR ABOVE OPTIMAL 130 - 159 mg/dl BORDERLINE HIGH 160 - 189 mg/dl HIGH >190 mg/dl VERY HIGH Performed By: #### B MP, LIPID #### [facility] [address] [place] [address] Dr. Idania Tai Triglyceride [Mass/Vol] 142 mg/dL Normal <=150 [facility] Comment on above: Performed By: #### B MP, LIPID #### [facility] [address] [address] [address] Idania Tai VLDL CALC 28.4 mg/dL Normal [facility] Comment on above: Performed By: #### B MP, LIPID #### [facility] [address] [place] [address] Dr. Idania Tai PROF CHEM 8 (BAS METB)on Anion gap [Moles/Vol] 11.0 mmol/L Normal [facility] Comment on above: Performed By: #### B MP, LIPID #### [facility] [address] [place] [address] Dr. Idania Tai Calcium [Mass/Vol] 9.1 mg/dL Normal 8.5-10.1 [facility] Comment on above: Performed By: #### B MP, LIPID #### [facility] [address] [place] [address] Dr. Idania Tai Chloride [Moles/Vol] 100 mmol/L Normal 98-107 [facility] Comment on above: Performed By: #### B MP, LIPID #### [facility] [address] [place] [address] Dr. Idania Tai CO2 [Moles/Vol] 32.6 mmol/L Critically high 21.0-32.0 [facility] Comment on above: Performed By: #### B MP, LIPID #### [facility] [address] [place] [address] Dr. Idania Tai Creatinine [Mass/Vol] 0.81 mg/dL Normal 0.70-1.30 [facility] Comment on above: Performed By: #### B MP, LIPID #### [facility] [address] [address] [address] Idania Tai EGFR-AF HAITIAN >60 Normal >=60 [facility] Comment on above: Performed By: #### B MP, LIPID #### [facility] [address] [place] [address] Dr. Idania Tai EGFR-NON AF HAITIAN >60 Normal >=60 [facility] Comment on above: Performed By: #### B MP, LIPID #### [facility] [address] [place] [address] Dr. Idania Tai Glucose [Mass/Vol] 157 mg/dL Critically high 74-106 T [facility] Comment on above: Performed By: #### B MP, LIPID #### [facility] [address] [place] [address] Dr. Idania Tai Potassium [Moles/Vol] 3.6 mmol/L Normal 3.5-5.1 [facility] Comment on above: Performed By: #### B MP, LIPID #### [facility] [address] [place] [address] Dr. Idania Tai Sodium [Moles/Vol] 140 mmol/L Normal 136-145 [facility] Comment on above: Performed By: #### B MP, LIPID #### [facility] [address] [place] [address] Dr. Idania Tai Urea nitrogen [Mass/Vol] 16.0 mg/dL Normal 7.0-18.0 [facility] Comment on above: Performed By: #### B MP, LIPID #### [facility] [address] [place] [address] Dr. Idania Tai Urea nitrogen/Creatinine [Mass ratio] 19.8 mg/mg Normal [facility] Comment on above: Performed By: #### B MP, LIPID #### [facility] [address] [place] [address] Dr. Idania Tai PROF CHEM 8 (BAS METB)on Anion gap [Moles/Vol] 16.1 mmol/L Normal [facility] Comment on above: Performed By: #### B MP #### [facility] [address] [place] [address] Dr. Idania Tai Calcium [Mass/Vol] 9.4 mg/dL Normal 8.5-10.1 [facility] Comment on above: Performed By: #### B MP #### [facility] [address] [place] [address] Dr. Idania Tai Chloride [Moles/Vol] 98 mmol/L Normal 98-107 [facility] Comment on above: Performed By: #### B MP #### [facility] [address] [place] [address] Dr. Idania Tai CO2 [Moles/Vol] 26.0 mmol/L Normal 21.0-32.0 [facility] Comment on above: Performed By: #### B MP #### [facility] [address] [place] [address] Dr. Idania Tai Creatinine [Mass/Vol] 0.78 mg/dL Normal 0.70-1.30 [facility] Comment on above: Performed By: #### B MP #### [facility] [address] [place] [address] Dr. Idania Tai EGFR-AF HAITIAN >60 Normal >=60 [facility] Comment on above: Performed By: #### B MP #### [facility] [address] [place] [address] Dr. Idania Tai EGFR-NON AF HAITIAN >60 Normal >=60 [facility] Comment on above: Performed By: #### B MP #### [facility] [address] [place] [address] Dr. Idania Tai Glucose [Mass/Vol] 131 mg/dL Critically high 74-106 T [facility] Comment on above: Performed By: #### B MP #### [facility] [address] [address] [address] Idania Tai Potassium [Moles/Vol] 4.1 mmol/L Normal 3.5-5.1 [facility] Comment on above: Performed By: #### B MP #### [facility] [id number] Idania Tai Sodium [Moles/Vol] 136 mmol/L Normal 136-145 [facility] Comment on above: Performed By: #### B MP #### [facility] [address] [address] [address] Idania Tai Urea nitrogen [Mass/Vol] 19.0 mg/dL Critically high 7.0-18 .0 [facility] Comment on above: Performed By: #### B MP #### [facility] [address] [address] [address] Idania Tai Urea nitrogen/Creatinine [Mass ratio] 24.4 mg/mg Normal [facility] Comment on above: Performed By: #### B MP #### [facility] [id number] Idania Tai Glucose Glucometer ([facility]) [M ass/Vol]Ordered By: Sav Andrews on 12-22-2021 Glucose [Mass/Vol] 113 mg/dL [facility] Comment on above: Random Glucose Refer ence Range is dependent on time and content of last meal. Glucose of more than 200 mg/dL in a nonstressed, ambulatory subject supports the diagnosis of Diabetes Mellitus. Glucose Poct Glucometerson 0 12-22-2021 Glucose [Mass/Vol] 113 mg/dL Normal [facility] Comment on above: Result Comment: [place] Glucose Reference Range is dependent on time and content of last meal. Glucose of more than 200 mg/dL in a nonstressed, ambulatory subject supports the diagnosis of Diabetes Mellitus. PERFORMED BY: [address] [place] [address] PATHOLOGIST ASSISTANT KITCHEN MANAGER TEOFILO KHAN M.D. Performed By: #### G [...] developed and its performance characteristic determined by [employer] and validated at [facility]. This test has not been FDA cleared [...] for SARS Antigen by SIN PERFORMED BY: [facility] [address] [place] [address] PATHOLOGIST ASSISTANT KITCHEN MANAGER TEOFILO KHAN M.D. [facility] Comment on above: Performed By: #### C OVID-19 MAYRA, SOFIANEG #### [facility] [address] COVID-19 SOFIAOrdered By: Bebe Andrews on 12-20-2021 SARS-CoV+SARS-CoV-2 (COVID-19) Ag IA.rapid Ql (Resp) Negative Negative [facility] Comment on above: This is a duplicate Mayra SARS Antigen (SIN) result to be used for statistical tracking purpose only. No Panel InformationOrdered By: Sav Andrews on 12-20-2021 SARS Antigen (LFIA) [facility] Mayra Ag Negativeon 12-21-19 Mayra Ag Negative Negative Normal Negative [facility] Comment on above: Result Comment: This is a duplicate Mayra SARS Antigen (SIN) result to be used for statistical tracking purpose only. PERFORMED BY: [place] [address] PATHOLOGIST ASSISTANT KITCHEN MANAGER TEOFILO KHAN M.D. Performed By: #### C OVID-19 MAYRA, SOFIANEG #### [address] ANKLE RT WO CONon 022 [...] severe tricompartmental osteoarthropathy of the knee with rwhq-ir-jdls articulation of the lateral compartment. SOFT TISSUES: Negative. No visible soft tissue swelling. EFFUSION: None visible. OTHER: Negative. IMPRESSION: Progression of subchondral degenerative cystic changes of the tibial plafond and calcaneus Moderate to severe knee osteoarthritis with djbr-iy-npea articulation of the lateral compartment Electronically authenticated by: GERA BLUM Date: 2021-11-14 16:32 Normal [facility] CBC AUTO DIFFon 09-11-2021 BASO # 0.1 103/ul Normal 0.0-0.1 [facility] Comment on above: Performed By: #### C BC ####[facility] [address] [place] [address]Dr. Idania Tai Basophils/100 WBC (Bld) 0.8 % Normal 0.2-2.0 [facility] Comment on above: Performed By: #### C BC ####[facility] Igqiioxyom[address] [place], [place] [address]Dr. Earnestinegisselle Zaire EO # 0.2 103/ul Normal 0.0-0.7 [facility] Comment on above: Performed By: #### C BC ####[facility] Oaqpfsuhhm[address] [place], [place] [address]Dr. Idania Zaire Eosinophils/100 WBC (Bld) 2.2 % Normal 0.9-7.0 [facility] Comment on above: Performed By: #### C BC ####[facility] [address] [place], [place] [address]Dr. Idania Tai Erythrocyte distribution width (RBC) [Ratio] 13.1 % Normal 11.0-15.0 [facility] Comment on above: Performed By: #### C BC ####[facility] U[address]rvzoe[address] [place], [place] [address]Dr. Idania Tai Hematocrit (Bld) [Volume fraction] 44.5 % Normal 42.0-54.0 [facility] Comment on above: Performed By: #### C BC ####[facility] Ltmfc[address]aam[address] [place], [place] [address]Dr. Idania Tai Hemoglobin (Bld) [Mass/Vol] 14.9 g/dL Normal 14.0-18.0 [facility] Comment on above: Performed By: #### C BC ####[facility] Izunaoycmv[address] [place], [place] [address]Dr. Idania Tai IG # 0.13 10e3/ul Critically high 0.00-0.[address] [facility] Comment on above: Performed By: #### C BC ####[facility] [address] [place] [address]Dr. Idania Tai IG % 1.5 % Critically high 0.0-0.5 [facility] Comment on above: Performed By: #### C BC ####[facility] [address] [place] [address]Dr. Idania Tai LYMPH # 2.4 103/ul Normal 1.2-3.8 [facility] Comment on above: Performed By: #### C BC ####[facility] Owv[address]arczq[address] [place], [place] [address]Dr. Idania Tai Lymphocytes/100 WBC (Bld) 27.7 % Normal 20.5-60.0 [facility] Comment on above: Performed By: #### C BC ####[facility] Srmverygpl[address] [place], [place] [address]Dr. Idania Tai MANUAL DIFF REQ NO Normal [facility] Comment on above: Performed By: #### C BC ####[facility] B[address] [place], [place] [address]Dr. Idania Zaire MCH (RBC) [Entitic mass] 28.9 pg Normal 25.9-34.0 [facility] Comment on above: Performed By: #### C BC ####[facility] Lqksutesfe[address] [place], [place] [address]Dr. Idania Zaire MCHC (RBC) [Mass/Vol] 33.5 g/dL Normal 29.9-35.2 [facility] Comment on above: Performed By: #### C BC ####[facility] B[address]rppm[address] [place], [place] [address]DrAlly Tai MCV (RBC) [Entitic vol] 86.4 fL Normal 80.0-94.0 [facility] Comment on above: Performed By: #### C BC ####[facility] Xxvarngujg[address] [place], [place] [address]DrAlly Tai MONO # 0.6 103/ul Normal 0.3-0.8 [facility] Comment on above: Performed By: #### C BC ####[facility] [address]fpmgzgk[address] [place], [place] [address]Dr. Idania Tai Monocytes/100 WBC (Bld) 6.4 % Normal 1.7-12.0 [facility] Comment on above: Performed By: #### C BC ####[facility] [address] [place] [address]Dr. Idania Tai NEUT # 5.3 103/ul Normal 1.4-6.5 [facility] Comment on above: Performed By: #### C BC ####[facility] [address] [place] [address]Dr. Idania Tai Neutrophils/100 WBC (Bld) 61.4 % Normal 43.0-75.0 [facility] Comment on above: Performed By: #### C BC ####[facility] [address] [place] [address]Dr. Idania Tai Platelet mean volume (Bld) [Entitic vol] 9.7 fL Normal 9.5-13.5 [facility] Comment on above: Performed By: #### C BC ####[facility] [address] [place] [address]Dr. Idania Tai PLT 219 103/ul Normal 150-450 [facility] Comment on above: Performed By: #### C BC ####[facility] [address]ns[address] [place], [place] [address]Dr. Idania Tai RBC 5.15 106/ul Normal 4.70-6.10 [facility] Comment on above: Performed By: #### C BC ####[facility] [address] [place] [address]Dr. Idania Tai WBC 8.6 103/ul Normal 4.0-11.0 [facility] Comment on above: Performed By: #### C BC ####[facility] [address] [place] [address]Dr. Idania Tai GLYCOHEMOGLOBIN A1Con 2021 ADA RECOMMENDATION ADA THERAPEUTIC TARGET 6.0 - 7.0 ACTION SUGGESTED > 7.0 Normal [facility] Comment on above: Performed By: #### A 1C ####[facility] [address] [place], [place] [address]Dr. Idania Tai Glucose [Mass/Vol] 128 mg/dL Normal [facility] Comment on above: Performed By: #### A 1C ####[facility] [address] [place], [place] [address]Dr. Idania Tai HbA1c (Bld) [Mass fraction] 6.1 % Critically high <=6.0 [facility] Comment on above: Performed By: #### A 1C ####[facility] [address] [place] [id number]. Idania Tai LIPID PROFILEon 09-11-2021 CHOL-HDL RATIO NORM SEE BELOW Normal [facility] Comment on above: Result Comment: 3.3 - 4.4 LOW RISK 4.4 - 7.1 AVERAGE RISK 7.1 - 11.0 MODERATE RISK >11.0 HIGH RISK Performed By: #### L IPID, CMP #### [facility] [address] [address] [address] Idania Tai Cholesterol [Mass/Vol] 175 mg/dL Normal <=200 [facility] Comment on above: Performed By: #### L IPID, CMP #### [facility] [address] [address] [address] Idania Tai Cholesterol in HDL [Mass/Vol] 54 mg/dL Normal 40-60 [facility] Comment on above: Performed By: #### L IPID, CMP #### [facility] [address] [address] [address] Idania Tai Cholesterol in LDL [Mass/Vol] 87.2 mg/dL Normal [facility] Comment on above: Performed By: #### L IPID, CMP #### [facility] [address] [address] [address] Idania Tai Cholesterol.total/Choles terol in HDL [Mass ratio] 3.2 {ratio} Normal [facility] Comment on above: Performed By: #### L IPID, CMP #### [facility] [address] [address] [address] Idania Tai HDL NORMAL > or = 60 mg/dl - LOW CARDIOVASCULAR RISK <40 mg/dl - HIGH CARDIOVASCULAR RISK Normal [facility] Comment on above: Performed By: #### L IPID, CMP #### [facility] [address] [address] [address] Idania Tai LDL CALC NORMAL SEE BELOW Normal [facility] Comment on above: Result Comment: <100 mg/dl OPTIMAL 100 - 129 mg/dl NEAR OR ABOVE OPTIMAL 130 - 159 mg/dl BORDERLINE HIGH 160 - 189 mg/dl HIGH >190 mg/dl VERY HIGH Performed By: #### L IPID, CMP #### [facility] [address] [address] [address] Idania Tai Triglyceride [Mass/Vol] 169 mg/dL Critically high <=150 [facility] Comment on above: Performed By: #### L IPID, CMP #### [facility] [address] [address] [address] Idania Tai VLDL CALC 33.8 mg/dL Normal [facility] Comment on above: Performed By: #### L IPID, CMP #### [facility] [address] [address] [address] Idania Tai MICROALBUMIN, RAND URon 08-25 mALB 1.9 mg/L Normal <=30.0 [facility] Comment on above: Performed By: #### M ALBR #### [facility] [address] [address] [address] Idania Tai PROF 14(COMP METB)on 022 Albumin [Mass/Vol] 3.7 g/dL Normal 3.4-5.0 [facility] Comment on above: Performed By: #### L IPID, CMP #### [facility] [address] [address] [address] Idania Tai Albumin/Globulin [Mass ratio] 0.9 {ratio} Normal [facility] Comment on above: Performed By: #### L IPID, CMP #### [facility] [address] [address] [address] Idania Tai ALP [Catalytic activity/Vol] 73 U/L Normal 46-116 [facility] Comment on above: Performed By: #### L IPID, CMP #### [facility] [address] [address] [address] Idania Tai ALT [Catalytic activity/Vol] 68 U/L Critically high 16-63 [facility] Comment on above: Performed By: #### L IPID, CMP #### [facility] [address] [address] [address] Idania Tai Anion gap [Moles/Vol] 10.2 mmol/L Normal [facility] Comment on above: Performed By: #### L IPID, CMP #### [facility] [address] [address] [address] Idania Tai AST [Catalytic activity/Vol] 30 U/L Normal 15-37 [facility] Comment on above: Performed By: #### L IPID, CMP #### [facility] [address] [place] [address] Dr. Idania Tai Bilirubin [Mass/Vol] 1.0 mg/dL Normal 0.2-1.3 [facility] Comment on above: Performed By: #### L IPID, CMP #### [facility] [address] [address] [address] Idania Tai Calcium [Mass/Vol] 8.5 mg/dL Normal 8.5-10.1 [facility] Comment on above: Performed By: #### L IPID, CMP #### [facility] [address] [address] [address] Idania Tai Chloride [Moles/Vol] 101 mmol/L Normal 98-107 [facility] Comment on above: Performed By: #### L IPID, CMP #### [facility] [address] [address] [address] Idania Tai CO2 [Moles/Vol] 31.6 mmol/L Critically high 22.0-30.0 [facility] Comment on above: Performed By: #### L IPID, CMP #### [facility] [address] [address] [address] Idania Tai Creatinine [Mass/Vol] 0.67 mg/dL Normal 0.66-1.25 [facility] Comment on above: Performed By: #### L IPID, CMP #### [facility] [address] [address] [address] Idania Tai EGFR-AF HAITIAN >60 Normal >=60 [facility] Comment on above: Performed By: #### L IPID, CMP #### [facility] [address] [address] [address] Idania Tai EGFR-NON AF HAITIAN >60 Normal >=60 [facility] Comment on above: Performed By: #### L IPID, CMP #### [facility] [address] [address] [address] Idania Tai Globulin (S) [Mass/Vol] 4.0 g/dL Normal [facility] Comment on above: Performed By: #### L IPID, CMP #### [facility] [address] [address] [address] Idania Tai Glucose [Mass/Vol] 114 mg/dL Critically high 74-106 [facility] Comment on above: Performed By: #### L IPID, CMP #### [facility] [address] [address] [address] Idania Tai Potassium [Moles/Vol] 4.8 mmol/L Normal 3.4-5.0 [facility] Comment on above: Performed By: #### L IPID, CMP #### [facility] [address] [address] [address] Idania Tai Protein [Mass/Vol] 7.7 g/dL Normal 6.1-8.2 [facility] Comment on above: Performed By: #### L IPID, CMP #### [facility] [address] [address] [address] Idania Tai Sodium [Moles/Vol] 138 mmol/L Normal 137-145 [facility] Comment on above: Performed By: #### L IPID, CMP #### [facility] [address] [address] [address] Idania Tai Urea nitrogen [Mass/Vol] 12.0 mg/dL Normal 7.0-18.0 [facility] Comment on above: Performed By: #### L IPID, CMP #### [facility] [address] [address] [address] Idania Tai Urea nitrogen/Creatinine [Mass ratio] 17.9 mg/mg Normal [facility] Comment on above: Performed By: #### L IPID, CMP #### [facility] [address] [id number] Idania Tai Vital Signs Date Time Vital Sign Value Performing Clinician Faci lity 09-10-2022 13:15-0400 Diastolic blood pressure 64 mm[Hg] MD Shaikh Baker Work Phone: [facility] 09-10-2022 13:15-0400 Heart rate 54 /min MD Shaikh Baker Work Phone: [facility] 09-10-2022 13:15-0400 Respiratory rate 16 /min MD Shaikh Baker Work Phone: [facility] 09-10-2022 13:15-0400 SaO2% (BldA) [Mass fraction] 97 % MD Shaikh Baker Work Phone: [facility] 09-10-2022 13:15-0400 Systolic blood pressure 100 mm[Hg] MD Shaikh Baker Work Phone: [facility] 09-10-2022 12:25-0400 Body temperature 97.5 [degF] MD Shaikh Baker Work Phone: [facility] 09-10-2022 11:55-0400 Inhaled oxygen flow rate 8 L/min MD Shaikh Baker Work Phone: [facility] 09-10-2022 10:54-0400 Body height 165.1 cm MD Shaikh Baker Work Phone: [facility] 09-10-2022 10:54-0400 Body mass index (BMI) [Ratio] 38.6 kg/m2 MD Shaikh Baker Work Phone: [facility] 09-10-2022 10:54-0400 Body weight 105.4 kg MD Shaikh Baker Work Phone: [facility] 12-22-2021 10:00-0400 Diastolic blood pressure 87 mm[Hg] MD Sav Andrews Work Phone: [facility] 12-22-2021 10:00-0400 Heart rate 54 /min MD Sav Andrews Work Phone: [facility] 12-22-2021 10:00-0400 Respiratory rate 18 /min MD Sav Andrews Work Phone: [facility] 12-22-2021 10:00-0400 SaO2% (BldA) [Mass fraction] 100 % MD Sav Andrews Work Phone: [facility] 12-22-2021 10:00-0400 Systolic blood pressure 139 mm[Hg] MD Sav Andrews Work Phone: [facility] 12-22-2021 07:37-0400 Body height 170.18 cm MD Sav Andrews Work Phone: [facility] 12-22-2021 07:37-0400 Body temperature 97.9 [degF] MD Sav Andrews Work Phone: [facility] 12-22-2021 07:37-0400 Body weight 81.64 kg MD Sav Andrews Work Phone: [facility] Encounters Encounter Date Encounter Type Care Provider Facility Start: 09-10-2022 End[facility] Start: 09-10-2022 End: 09-10-2022 Admission to same day surgery center MD Shaikh Baker Work Phone: [facility] [place] Start: 09-10-2022 End: 09-10-2022 ambulatory MD Shaikh Baker Work Phone: [facility] Work Phone: Start: 08-30-2022 End: 08-30-2022 ambulatory Silver Briceño Facility:[facility] Start: 08-30-2022 End: 08-30-2022 ambulatory MD Shaikh Baker Work Phone: [facility] Work Phone: Start: 08-30-2022 End: 08-30-2022 Patient encounter procedure MD Shaikh Baker Work Phone: [facility] Work Phone: Start: 07-07-2022 End: 07-08-2022 ambulatory SHAIKH Adan BAKER Facility:[facility] Start: 03-13-2022 End: 03-14-2022 ambulatory SHAIKH Adan BAKER Facility:[facility] Start: 12-22-2021 End: 12-22-2021 ambulatory Sav Andrews Facility:[facility] Start: 12-22-2021 End: 12-22-2021 Admission to same day surgery center MD Sav Andrews Work Phone: [facility] Start: 12-20-2021 End: 12-20-2021 ambulatory Sav Andrews Facility:[facility] Start: 12-20-2021 End: 12-20-2021 Patient encounter procedure MD Sav Andrews Work Phone: [facility] Start: 11-14-2021 End: 11-15-2021 ambulatory REY [...] Activity Detail Author Start: 09-10-2022 End: 09-10-2022 [facility] Start: 12-22-2021 [facility] Work Phone: Patient Education Hemorrhoids [facility] Work Phone: Immunizations Immunization Date Immunization Notes Care Provider Fa [facility] 10-10-2020 COVID-19 mRNA Comirnatjoey (Pfizer) MD Sav Andrews Work Phone: [facility] 09-19-2020 COVID-19 mRNA Comirmichelle (Pfizer) MD Sav Andrews Work Phone: [facility] Payers Date Payer Category Payer Self-pay [id number] 1965 Unknown [id number] 2.16.84 [id number] 1965 Unknown [id number] 2.16.84 [id number] 1966 Unknown [id number] 2.16.84 [id number]. 1966 Unknown [id number] .16.84 [id number] 1966 Unknown [id number] 2.16.84 [id number]. 1966 Unknown [id number] 2.16.84 [id number] 1965 Unknown [id number] 2.16.84 [id number] 1959 Unknown [id number] Unknown [id number] 2.16.8 [id number] Unknown [id number] 2.16.8 [id number] Unknown [id number] 2.16.8 [id number] Unknown [id number] 2.16.8 [id number] Social History Date Type Detail Facility Start: 12-22-2021 End: 09-10-2022 Tobacco smoking status NHIS Ex-smoker (finding) [facility] Start: 1965 Sex Assigned At Male F [facility] Goals Date Patient Goal Desired Activity /State Procedure note 12-22-2021 Note Date & Type Note Facility 12-22-2021 Procedure [address] [facility] Clinical Note 10-26-2021 Note Date & Type [...] authenticated by: MICHELLE IBRAHIM Date: 2021-10-26 08:54 [facility] Clinical Note 09-05-2021 Note Date [...] authenticated by: GERA BLUM Date: 2021-09-05 15:22 [facility] Evaluation note Note Date & Type Note Facility Evaluation note No assessment information availa ble [facility] Work Phone: History and physical note Note Date & Type Note Facility History and physical note Note Date/Time December 22, 2021 9:32 am [facility] [address] [place] [address] Gastroenterology H&P Signed Patient: Dante Dietz MR #: [id number] : 1965 Acct:[id number] Age/Sex: 56 / M Adm Date: 2 Loc: Room: Type: [facility] Attending Dr: Sav Andrews MD Copies to: [...] <Electronically signed by Sav Andrews MD> 12/22/21931 [facility] Work Phone: Chief Complaint and Reason for [...] DATE CREATED AUTHOR 07/14/2022 [facility] DATE CREATED AUTHOR 'S ORGANIZ ATION 10/02/2022 [facility] Goals (unrecognized section and content) Goals may [...] BE BASED ON THE PRIMARY CLINICAL RECORDS. [facility]. provides no warranty or guarantee of the accuracy or completeness of information in this document.
== END 2023-06-05 14:47 | disposition home or self-care (01) ==
LOC: RAD 14:46
PROVIDERS: PCP Internal Medicine; Visit Provider Podiatrist Foot & Ankle Surgery
DX: M19.071 Primary osteoarthritis, right ankle and foot (principal)
CPT/HCPCS: 73610

== ENCOUNTER 2023-06-25 14:44 | Outpatient (OUT) | payer BC, SELFPAY ==
--- NOTE | 2023-06-25 15:16 | CT_ITS ---
[address] [address] Patient Name: LAVERN GARCIA MRN: [id number] date: 1965 Sex: M Assigned Patient Location: CT Current Patient Location: CT Accession/Order Number: [id number] Exam Date: 06/25/2023 15:11 Report Date: 06/25/2023 16:07 At the request of: REY ALCARAZ Procedure: CT ankle RT wo con EXAMINATION: CT ankle RT wo con HISTORY: Degenerative Disc Disease Right Ankle M87.071 COMPARISON: 12/04/2022, 06/05/2023 TECHNIQUE: Multi-planar CT images were created without IV contrast. Dose reduction techniques were achieved by using automated exposure control and/or adjustment of mA and/or kV according to patient size and/or use of iterative reconstruction technique. FINDINGS: BONES: Stable ankle fusion with a talus spacer and retrograde intramedullary marci extending through the calcaneus into the tibia and proximally and distally. No acute fracture, dislocation or mechanical failure. No evidence of loosening. Stable degenerative changes with joint space narrowing. Moderate to marked permeative pattern of the bones consistent with osteopenia . Moderate to severe degenerative osteoarthropathy of the knee with wajl-fn-vnex articulation and remodeling of the lateral compartment SOFT TISSUES: Negative. No visible soft tissue swelling. EFFUSION: None visible. OTHER: Negative. CT/CT ankle RT wo con IMPRESSION: Stable ankle fusion Diffuse osteopenia Moderate to severe degenerative osteoarthritis of the knee Electronically authenticated by: GERA BLUM Date: 06/25/2023 16:07
== END 2023-06-25 14:45 | disposition home or self-care (01) ==
LOC: CT 14:44
PROVIDERS: PCP Internal Medicine; Visit Provider Podiatrist Foot & Ankle Surgery
DX: M87.071 Idiopathic aseptic necrosis of right ankle (principal); M21.6X1 Other acquired deformities of right foot; M19.071 Primary osteoarthritis, right ankle and foot
CPT/HCPCS: 73700

== ENCOUNTER 2023-06-26 13:55 | Outpatient (OUT) | payer BC, SELFPAY ==
--- NOTE | 2023-06-26 | XR_ITS ---
The [address] [address] Patient Name: LAVERN GARCIA MRN: [id number] date: 1965 Sex: M Assigned Patient Location: RAD Current Patient Location: RAD Accession/Order Number: [id number] Exam Date: 06/26/2023 13:56 Report Date: 06/26/2023 16:31 At the request of: REY ALCARAZ Procedure: XR ankle RT min 3V PROCEDURE: XR ankle RT min 3V COMPARISON: 06/05/2023 HISTORY: RIGHT ANKLE PAIN FINDINGS: BONES:Remote resection of the talus. Stable ankle fusion with a talar cage. Retrograde intramedullary marci and distally extending through the calcaneus into the tibia. No mechanical failure. Bone graft material in the anterior talus resection bed. No acute fracture, dislocation or mechanical failure . Permeative pattern of the midfoot, osteopenia SOFT TISSUES:Negative. No visible soft tissue swelling. EFFUSION:None visible. OTHER: Negative. XR/XR ankle RT min 3V IMPRESSION: Stable ankle fusion Electronically authenticated by: GERA BLUM Date: 06/26/2023 16:31
--- OUTSIDE RECORDS SUMMARY | 2023-06-26 14:10 | XMS_ITS | CCD ---
Author Name Unknown Address [address] [place] [address] Organization [facility] Care Team Providers Care Control Integration Engineer Name Role Phone MD Sav Andrews Attending [...] Andrews Attending Unavailable Sav Andrews Admitting [facility] Silver Briceño Attending Unavailable Silver Briceño Admitting Unavailable [facility] Unavailable Sav Andrews Admitting Unavailable Sav Andrews Attending Unavailable Silver Briceño Attending Unavailable Silver Briceño Admitting Unavailable [facility] Unavailable Medications Current Medications Medication Drug Class(es) Dates Sig (Normalized) Sig (Original) [id number] 200 actuat albuterol 0.09 mg/actuat metered dose [...] MG PO Daily December 22, 2021 12:00am [place] 1-Rht-Nfb-Fish Oil (Fish Oil) 1,200 (144-216) mg Capsule (4 sources) Start: 12-22-2021 take 1 capsule by mouth twice daily [place] 6-Vmq-Ord-Fish Oil (Fish Oil) 1,200 (144-216) mg Capsule [...] Briceño on 09-10-2022 Glucose [Mass/Vol] 137 mg/dL [facility] Comment on above: Random Glucose Refer ence Range is dependent on time and content of last meal. Glucose of more than 200 mg/dL in a nonstressed, ambulatory subject supports the diagnosis of Diabetes Mellitus. Glucose [Mass/Vol] 131 mg/dL [facility] Comment on above: Random Glucose Refer ence Range is dependent on time and content of last meal. Glucose of more than 200 mg/dL in a nonstressed, ambulatory subject supports the diagnosis of Diabetes Mellitus. Glucose Poct Glucometerson 0 09-10-2022 Glucose [Mass/Vol] 137 mg/dL Normal [facility] Comment on above: Result Comment: Downs om Glucose Reference Range is dependent on time and content of last meal. Glucose of more than 200 mg/dL in a nonstressed, ambulatory subject supports the diagnosis of Diabetes Mellitus. PERFORMED BY: [place] [address] PATHOLOGIST SUPERVISOR ROD PLACING TEOFILO KHAN M.D. Performed By: #### G LULS #### Point of Care testing , Glucose [Mass/Vol] 131 mg/dL Normal [facility] Comment on above: Result Comment: Downs om Glucose Reference Range is dependent on time and content of last meal. Glucose of more than 200 mg/dL in a nonstressed, ambulatory subject supports the diagnosis of Diabetes Mellitus. PERFORMED BY: [place] [address] PATHOLOGIST SUPERVISOR ROD PLACING TEOFILO KHAN M.D. Performed By: #### G LULS #### Point of Care testing , Basic Metabolic Panelon Anion gap [Moles/Vol] 13.5 mmol/L Normal 6.0-15.0 [facility] Comment on above: Performed By: #### C BC, BMP #### [address] Calcium [Mass/Vol] 9.4 mg/dL Normal 8.6-10.3 [facility] Comment on above: Result Comment: PERF ORMED BY: [place] [address] PATHOLOGIST SUPERVISOR R[employer]ACING TEOFILO KHAN M.D. Performed By: #### C BC, BMP #### [facility] [address] [place] [address] [place] Chloride [Moles/Vol] 102 mmol/L Normal 98-107 [facility] Comment on above: Performed By: #### C BC, BMP #### [facility] [address] [place] [address] [place] CO2 [Moles/Vol] 28.5 mmol/L Normal 21.0-31.0 [facility] Comment on above: Performed By: #### C BC, BMP #### [facility] [address] [place] [address] [place] Creatinine [Mass/Vol] 0.99 mg/dL Normal 0.70-1.30 [facility] Comment on above: Performed By: #### C BC, BMP #### [facility] [address] [place] [address] [place] GFR/1.73 sq M.predicted MDRD (S/P/Bld) [Vol rate/Area] mL/min/{1.73_m2} Normal [facility] Comment on above: Performed By: #### C BC, BMP #### [place] [address] [place] Glucose [Mass/Vol] 114 mg/dL High 70-100 [facility] Comment on above: Result Comment: Downs Glucose Reference Range is dependent on time and content of last meal. Glucose of more than 200 mg/dL in a nonstressed, ambulatory subject supports the diagnosis of Diabetes Mellitus. ADA recommended reference range Performed By: #### C BC, BMP #### [facility] [address] [place] [address] [place] Potassium [Moles/Vol] 4.0 mmol/L Normal 3.5-5.1 [facility] Comment on above: Performed By: #### C BC, BMP #### [facility] [address] Sodium [Moles/Vol] 140 mmol/L Normal 136-145 [facility] Comment on above: Performed By: #### C BC, BMP #### [facility] [address] Urea nitrogen [Mass/Vol] 21 mg/dL Normal 7-25 [facility] Comment on above: Performed By: #### C BC, BMP #### [facility] [address] Basophils Auto (Bld) [#/Vol] Ordered By: Silver Briceño on 08-30-2022 Basophils (Bld) [#/Vol] 0.0 10*3/uL 0.0-0.2 [facility] Basophils/100 WBC Auto (Bld) Ordered By: Silver Briceño on 08-30-2022 Basophils/100 WBC (Bld) 0.7 % . [facility] Calcium [Mass/volume] in Ser um or PlasmaOrdered By: Silver Briceño on 08-30-2022 Calcium [Mass/Vol] 9.4 mg/dL 8.6-10.3 [facility] Carbon dioxide, total [Moles /volume] in Serum or PlasmaOrdered By: Silver Briceño on 08-30-2022 CO2 [Moles/Vol] 28.5 mmol/L 21.0-31.0 [facility] Chloride [Moles/volume] in S gela or PlasmaOrdered By: Silver Briceño on 08-30-2022 Chloride [Moles/Vol] 102 mmol/L 98-107 [facility] Complete Blood Count Auto Di ffon 08-30-2022 Basophils (Bld) [#/Vol] 0.0 10*3/uL Normal 0.0-0.2 [facility] Comment on above: Result Comment: PERF ORMED BY: [place] [address] PATHOLOGIST SUPERVISOR ROD PLACING TEOFILO KHAN M.D. Performed By: #### C BC, BMP #### [address] [place] [address] [place] Basophils/100 WBC (Bld) 0.7 % Normal . [facility] Comment on above: Performed By: #### C BC, BMP #### [facility] [address] Eosinophils (Bld) [#/Vol] 0.3 10*3/uL Normal 0.0-0.45 [facility] Comment on above: Performed By: #### C BC, BMP #### [facility] [address] Eosinophils/100 WBC (Bld) 6.1 % Normal . [facility] Comment on above: Performed By: #### C BC, BMP #### [address] Erythrocyte distribution width (RBC) [Ratio] 14.5 % Normal 12.0-14.8 [facility] Comment on above: Performed By: #### C BC, BMP #### [address] Hematocrit (Bld) [Volume fraction] 36.5 % Low 38.8-50.0 [facility] Comment on above: Performed By: #### C BC, BMP #### [address] Hemoglobin (Bld) [Mass/Vol] 12.5 g/dL Low 13.0-17.0 [facility] Comment on above: Performed By: #### C BC, BMP #### [address] Lymphocytes (Bld) [#/Vol] 1.8 10*3/uL Normal 1.00-4.8 [facility] Comment on above: Performed By: #### C BC, BMP #### [address] Lymphocytes/100 WBC (Bld) 35.5 % Normal . [facility] Comment on above: Performed By: #### C BC, BMP #### [address] MCH (RBC) [Entitic mass] 29.2 pg Normal 27.5-35.2 [facility] Comment on above: Performed By: #### C BC, BMP #### [address] MCV (RBC) [Entitic vol] 85.1 fL Normal 83.5-101 [facility] Comment on above: Performed By: #### C BC, BMP #### [address] Mean Corpuscular HGB Conc 34.3 g/dL Normal 32.5-35.6 [facility] Comment on above: Performed By: #### C BC, BMP #### [address] Monocytes (Bld) [#/Vol] 0.4 10*3/uL Normal 0.0-0.8 [facility] Comment on above: Performed By: #### C BC, BMP #### [address] Monocytes/100 WBC (Bld) 8.2 % Normal . [facility] Comment on above: Performed By: #### C BC, BMP #### [address] Neutrophils (Bld) [#/Vol] 2.5 10*3/uL Normal 1.8-7.7 [facility] Comment on above: Performed By: #### C BC, BMP #### [address] Neutrophils/100 WBC (Bld) 49.5 % Normal . [facility] Comment on above: Performed By: #### C BC, BMP #### [address] NRBC% 0.2 /100{WBC} Normal 0-0.5 [facility] Comment on above: Performed By: #### C BC, BMP #### [address] Platelet mean volume (Bld) [Entitic vol] 8.8 fL Normal 6.6-10.1 [facility] Comment on above: Performed By: #### C SAI, BMP #### [facility] [address] Platelets (Bld) [#/Vol] 155 10*3/uL Normal 150-450 [facility] Comment on above: Performed By: #### C SAI, BMP #### [facility] [address] RBC (Bld) [#/Vol] 4.29 10*6/uL Normal 3.90-5.60 [facility] Comment on above: Performed By: #### C SIA, BMP #### [facility] [address] WBC (Bld) [#/Vol] 5.1 10*3/uL Normal 4.1-10.5 [facility] Comment on above: Performed By: #### C SAI, BMP #### [address] Creatinine [Mass/volume] in Serum or PlasmaOrdered By: Silver Briceño on 08-30-2022 Creatinine [Mass/Vol] 0.99 mg/dL 0.70-1.30 [facility] ECG 12 lead ECGon 08-30-2022 ECG 12 lead ECG [facility] [address] [place] [address] [place] [address] Electrocardiograph Report Signed Patient: Dante Dietz MR#: [id number] : 1965 Acct:[id number] Age/Sex: 57 / M ADM Date: 08/30/22 Loc: Room: Type: [facility] Attending Dr: iSlver Briceño DO Ordering Provider: Silver Briceño DO [...] previous ECGs available Confirmed by KATE GU[facility]A [facility] ([id number] on 08/31/2022 12:23:25 PM Referred By: FREDDY Electronically Signed By:LEANNA LOVE MD [facility] Transcribed By: ESTELLE Signed By Leo Love MD 08/31/22 1223 Normal [facility] Eosinophils Auto (Bld) [#/Vo l]Ordered By: Silver Briceño on 08-30-2022 Eosinophils (Bld) [#/Vol] 0.3 10*3/uL 0.0-0.45 [facility] Eosinophils/100 WBC Auto (Bl d)Ordered By: Silver Briceño on 08-30-2022 Eosinophils/100 WBC (Bld) 6.1 % . [facility] Erythrocyte distribution wid th Auto (RBC) [Ratio]Ordered By: Silver Briceño on 08-30-2022 Erythrocyte distribution width (RBC) [Ratio] 14.5 % 12.0-14.8 [facility] Glucose [Mass/volume] in Ser um or PlasmaOrdered By: Silver Briceño on 08-30-2022 Glucose [Mass/Vol] 114 mg/dL 70-100 [facility] Comment on above: ADA recommended refe rence rangeRandom Glucose Reference Range is dependent on time and content of last meal. Glucose of more than 200 mg/dL in a nonstressed, ambulatory subject supports the diagnosis of Diabetes Mellitus. Hematocrit Auto (Bld) [Volum e fraction]Ordered By: Silver Briceño on 08-30-2022 Hematocrit (Bld) [Volume fraction] 36.5 % 38.8-50.0 [facility] Hemoglobin [Mass/volume] in BloodOrdered By: Silver Briceño on 08-30-2022 Hemoglobin (Bld) [Mass/Vol] 12.5 g/dL 13.0-17.0 [facility] Leukocytes [#/volume] correc shashi for nucleated erythrocytes in Blood by Automated counOrdered By: Silver Briceño on 08-30-2022 WBC corrected for nucl RBC Auto (Bld) [#/Vol] 5.1 10*3/uL 4.1-10.5 [facility] Lymphocytes Auto (Bld) [#/Vo l]Ordered By: Silver Briceño on 08-30-2022 Lymphocytes (Bld) [#/Vol] 1.8 10*3/uL 1.00-4.8 [facility] Lymphocytes/100 WBC Auto (Bl d)Ordered By: Silver Briceño on 08-30-2022 Lymphocytes/100 WBC (Bld) 35.5 % . [facility] MCH Auto (RBC) [Entitic mass ]Ordered By: Silver Briceño on 08-30-2022 MCH (RBC) [Entitic mass] 29.2 pg 27.5-35.2 [facility] MCHC Auto (RBC) [Mass/Vol]Or dered By: Silver Briceño on 08-30-2022 MCHC (RBC) [Mass/Vol] 34.3 g/dL 32.5-35.6 [facility] MCV Auto (RBC) [Entitic vol] Ordered By: Silver Briceño on 08-30-2022 MCV (RBC) [Entitic vol] 85.1 fL 83.5-101 [facility] Monocytes Auto (Bld) [#/Vol] Ordered By: Silver Briceño on 08-30-2022 Monocytes (Bld) [#/Vol] 0.4 10*3/uL 0.0-0.8 [facility] Monocytes/100 WBC Auto (Bld) Ordered By: Silver Briceño on 08-30-2022 Monocytes/100 WBC (Bld) 8.2 % . [facility] Neutrophils Auto (Bld) [#/Vo l]Ordered By: Silver Briceño on 08-30-2022 Neutrophils (Bld) [#/Vol] 2.5 10*3/uL 1.8-7.7 [facility] Neutrophils/100 WBC Auto (Bl d)Ordered By: Silver Briceño on 08-30-2022 Neutrophils/100 WBC (Bld) 49.5 % . [facility] No Panel InformationOrdered By: Silver Briceño on 08-30-2022 Estimated GFR (CKD-EPI) > 60.0 mL/Min [facility] Creatinine Clearance (Chem N/A [facility] Nucleated erythrocytes [Pres ence] in Blood by Automated countOrdered By: Silver Briceño on 08-30-2022 Nucleated RBC Auto Ql (Bld) 0.2 /100{WBC} 0-0.5 [facility] Platelet mean volume Auto (B ld) [Entitic vol]Ordered By: Silver Briecño on 08-30-2022 Platelet mean volume (Bld) [Entitic vol] 8.8 fL 6.6-10.1 [facility] Platelets Auto (Bld) [#/Vol] Ordered By: Silver Briceño on 08-30-2022 Platelets (Bld) [#/Vol] 155 10*3/uL 150-450 [facility] Potassium [Moles/volume] in Serum or PlasmaOrdered By: Silver Briceño on 08-30-2022 Potassium [Moles/Vol] 4.0 mmol/L 3.5-5.1 [facility] RBC Auto (Bld) [#/Vol]Ordere d By: Silver Briceño on 08-30-2022 RBC (Bld) [#/Vol] 4.29 10*6/uL 3.90-5.60 [facility] Serum or plasma anion gap de terminationOrdered By: Silver Briceño on 08-30-2022 Anion gap [Moles/Vol] 13.5 mmol/L 6.0-15.0 [facility] Sodium [Moles/volume] in Ser um or PlasmaOrdered By: Silver Briceño on 08-30-2022 Sodium [Moles/Vol] 140 mmol/L 136-145 [facility] Urea nitrogen [Mass/volume] in Serum or PlasmaOrdered By: Silver Briceño on 08-30-2022 Urea nitrogen [Mass/Vol] 21 mg/dL 7-25 [facility] WBC Auto (Bld) [#/Vol]Ordere d By: Silver Briceño on 08-30-2022 WBC (Bld) [#/Vol] 5.1 10*3/uL 4.1-10.5 [facility] GLYCOHEMOGLOBIN A1Con 2022 ADA RECOMMENDATION SEE BELOW Normal [facility] Comment on above: Result Comment: ADA RECOMMENDED LIMIT 4.0 - 6.0 ADA THERAPEUTIC TARGET < 7.0 ACTION SUGGESTED > 7.0 Performed By: #### A 1C #### [facility] [address] [place] [address] Dr. Idania Tai Glucose [Mass/Vol] 243 mg/dL Normal [facility] Comment on above: Performed By: #### A 1C #### [facility] [address] [place] [address] Dr. Idania Tai HbA1c (Bld) [Mass fraction] 10.1 % Critically high 4.5-6.2 [facility] Comment on above: Performed By: #### A 1C #### [facility] [address] [place] [address] Dr. Idania Tai LIPID PROFILEon 07-07-2022 CHOL-HDL RATIO NORM SEE BELOW Normal [facility] Comment on above: Result Comment: 3.3 - 4.4 LOW RISK 4.4 - 7.1 AVERAGE RISK 7.1 - 11.0 MODERATE RISK >11.0 HIGH RISK Performed By: #### B MP, LIPID #### [facility] [address] [place] [address] Dr. Idania Tai Cholesterol [Mass/Vol] 172 mg/dL Normal <=200 [facility] Comment on above: Performed By: #### B MP, LIPID #### [facility] [address] [place] [address] Dr. Idania Tai Cholesterol in HDL [Mass/Vol] 48 mg/dL Normal 40-60 [facility] Comment on above: Performed By: #### B MP, LIPID #### [facility] [address] [place] [address] Dr. Idania Tai Cholesterol in LDL [Mass/Vol] 95.6 mg/dL Normal [facility] Comment on above: Performed By: #### B MP, LIPID #### [facility] [address] [place] [address] Dr. Idania Tai Cholesterol.total/Choles terol in HDL [Mass ratio] 3.6 {ratio} Normal [facility] Comment on above: Performed By: #### B MP, LIPID #### [facility] [address] [address] [address] Idania Tai HDL NORMAL > or = 60 mg/dl - LOW CARDIOVASCULAR RISK <40 mg/dl - HIGH CARDIOVASCULAR RISK Normal [facility] Comment on above: Performed By: #### B MP, LIPID #### [facility] [address] [place] [address] Dr. Idania Tai LDL CALC NORMAL SEE BELOW Normal [facility] Comment on above: Result Comment: <100 mg/dl OPTIMAL 100 - 129 mg/dl NEAR OR ABOVE OPTIMAL 130 - 159 mg/dl BORDERLINE HIGH 160 - 189 mg/dl HIGH >190 mg/dl VERY HIGH Performed By: #### B MP, LIPID #### [facility] [address] [place] [address] Dr. Idania Tai Triglyceride [Mass/Vol] 142 mg/dL Normal <=150 [facility] Comment on above: Performed By: #### B MP, LIPID #### [facility] [address] [address] [address] Idania Tai VLDL CALC 28.4 mg/dL Normal [facility] Comment on above: Performed By: #### B MP, LIPID #### [facility] [address] [place] [address] Dr. Idania Tai PROF CHEM 8 (BAS METB)on Anion gap [Moles/Vol] 11.0 mmol/L Normal [facility] Comment on above: Performed By: #### B MP, LIPID #### [facility] [address] [place] [address] Dr. Idania Tai Calcium [Mass/Vol] 9.1 mg/dL Normal 8.5-10.1 [facility] Comment on above: Performed By: #### B MP, LIPID #### [facility] [address] [place] [address] Dr. Idania Tai Chloride [Moles/Vol] 100 mmol/L Normal 98-107 [facility] Comment on above: Performed By: #### B MP, LIPID #### [facility] [address] [place] [address] Dr. Idania Tai CO2 [Moles/Vol] 32.6 mmol/L Critically high 21.0-32.0 [facility] Comment on above: Performed By: #### B MP, LIPID #### [facility] [address] [place] [address] Dr. Idania Tai Creatinine [Mass/Vol] 0.81 mg/dL Normal 0.70-1.30 [facility] Comment on above: Performed By: #### B MP, LIPID #### [facility] [address] [address] [address] Idania Tai EGFR-AF GIBRALTARIAN >60 Normal >=60 [facility] Comment on above: Performed By: #### B MP, LIPID #### [facility] [address] [place] [address] Dr. Idania Tai EGFR-NON AF GIBRALTARIAN >60 Normal >=60 [facility] Comment on above: Performed By: #### B MP, LIPID #### [facility] [address] [place] [address] Dr. Idania Tai Glucose [Mass/Vol] 157 mg/dL Critically high 74-106 [facility] Comment on above: Performed By: #### B MP, LIPID #### [facility] [address] [place] [address] Dr. Idania Tai Potassium [Moles/Vol] 3.6 mmol/L Normal 3.5-5.1 [facility] Comment on above: Performed By: #### B MP, LIPID #### [facility] [address] [place] [address] Dr. Idania Tai Sodium [Moles/Vol] 140 mmol/L Normal 136-145 [facility] Comment on above: Performed By: #### B MP, LIPID #### [facility] [address] [place] [address] Dr. Idania Tai Urea nitrogen [Mass/Vol] 16.0 mg/dL Normal 7.0-18.0 [facility] Comment on above: Performed By: #### B MP, LIPID #### [facility] [address] [place] [address] Dr. Idania Tai Urea nitrogen/Creatinine [Mass ratio] 19.8 mg/mg Normal [facility] Comment on above: Performed By: #### B MP, LIPID #### [facility] [address] [place] [address] Dr. Idania Tai PROF CHEM 8 (BAS METB)on Anion gap [Moles/Vol] 16.1 mmol/L Normal [facility] Comment on above: Performed By: #### B MP #### [facility] [address] [place] [address] Dr. Idania Tai Calcium [Mass/Vol] 9.4 mg/dL Normal 8.5-10.1 [facility] Comment on above: Performed By: #### B MP #### [facility] [address] [place] [address] Dr. Idania Tai Chloride [Moles/Vol] 98 mmol/L Normal 98-107 [facility] Comment on above: Performed By: #### B MP #### [facility] [address] [place] [address] Dr. Idania Tai CO2 [Moles/Vol] 26.0 mmol/L Normal 21.0-32.0 [facility] Comment on above: Performed By: #### B MP #### [facility] [address] [place] [address] Dr. Idania Tai Creatinine [Mass/Vol] 0.78 mg/dL Normal 0.70-1.30 [facility] Comment on above: Performed By: #### B MP #### [facility] [address] [place] [address] Dr. Idania Tai EGFR-AF GIBRALTARIAN >60 Normal >=60 [facility] Comment on above: Performed By: #### B MP #### [facility] [address] [place] [address] Dr. Idania Tai EGFR-NON AF GIBRALTARIAN >60 Normal >=60 [facility] Comment on above: Performed By: #### B MP #### [facility] [address] [place] [address] Dr. Idania Tai Glucose [Mass/Vol] 131 mg/dL Critically high 74-106 [facility] Comment on above: Performed By: #### B MP #### [facility] [address] [address] [address] Idania Tai Potassium [Moles/Vol] 4.1 mmol/L Normal 3.5-5.1 [facility] Comment on above: Performed By: #### B MP #### [facility] [id number] Idania Tai Sodium [Moles/Vol] 136 mmol/L Normal 136-145 [facility] Comment on above: Performed By: #### B MP #### [facility] [address] [address] [address] Idania Tai Urea nitrogen [Mass/Vol] 19.0 mg/dL Critically high 7.0-18 .0 [facility] Comment on above: Performed By: #### B MP #### [facility] [address] [address] [address] Idania Tai Urea nitrogen/Creatinine [Mass ratio] 24.4 mg/mg Normal [facility] Comment on above: Performed By: #### B MP #### [facility] [id number] Idania Tai Glucose Glucometer ([facility]) [M ass/Vol]Ordered By: Sav Andrews on 12-22-2021 Glucose [Mass/Vol] 113 mg/dL [facility] Comment on above: Random Glucose Refer ence Range is dependent on time and content of last meal. Glucose of more than 200 mg/dL in a nonstressed, ambulatory subject supports the diagnosis of Diabetes Mellitus. Glucose Poct Glucometerson 0 12-22-2021 Glucose [Mass/Vol] 113 mg/dL Normal [facility] Comment on above: Result Comment: Downs Glucose Reference Range is dependent on time and content of last meal. Glucose of more than 200 mg/dL in a nonstressed, ambulatory subject supports the diagnosis of Diabetes Mellitus. PERFORMED BY: [address] [address] PATHOLOGIST SUPERVISOR ROD PLACING TEOFILO KHAN M.D. Performed By: #### G [...] developed and its performance characteristic determined by [employer] and validated at [facility]. This test has not been FDA cleared [...] for SARS Antigen by SIN PERFORMED BY: [facility] [address] [place] [address] PATHOLOGIST SUPERVISOR ROD PLACING TEOFILO KHAN M.D. [facility] Comment on above: Performed By: #### C OVID-19 MAYRA, SOFIANEG #### [facility] [address] COVID-19 SOFIAOrdered By: Bebe Andrews on 12-20-2021 SARS-CoV+SARS-CoV-2 (COVID-19) Ag IA.rapid Ql (Resp) Negative Negative [facility] Comment on above: This is a duplicate Mayra SARS Antigen (SIN) result to be used for statistical tracking purpose only. No Panel InformationOrdered By: Sav Andrews on 12-20-2021 SARS Antigen (LFIA) [facility] Mayra Ag Negativeon 12-21-19 Mayra Ag Negative Negative Normal Negative [facility] Comment on above: Result Comment: This is a duplicate Mayra SARS Antigen (SIN) result to be used for statistical tracking purpose only. PERFORMED BY: [place] [address] PATHOLOGIST SUPERVISOR [employer]ACING TEOFILO KHAN M.D. Performed By: #### C OVID-19 MAYRA, SOFIANEG #### [address] ANKLE RT WO CONon 022 [...] severe tricompartmental osteoarthropathy of the knee with vxcm-jt-qqnl articulation of the lateral compartment. SOFT TISSUES: Negative. No visible soft tissue swelling. EFFUSION: None visible. OTHER: Negative. IMPRESSION: Progression of subchondral degenerative cystic changes of the tibial plafond and calcaneus Moderate to severe knee osteoarthritis with zhkl-mt-wvcs articulation of the lateral compartment Electronically authenticated by: GERA BLUM Date: 2021-11-14 16:32 Normal [facility] CBC AUTO DIFFon 09-11-2021 BASO # 0.1 103/ul Normal 0.0-0.1 [facility] Comment on above: Performed By: #### C BC ####[facility] [address] [place] [address]Dr. Idania Tai Basophils/100 WBC (Bld) 0.8 % Normal 0.2-2.0 [facility] Comment on above: Performed By: #### C BC ####[facility] [address] [place], [place] [address]Dr. Earnestinegisselle Zaire EO # 0.2 103/ul Normal 0.0-0.7 [facility] Comment on above: Performed By: #### C BC ####[facility] [address] [place], [place] [address]Dr. Idania Zaire Eosinophils/100 WBC (Bld) 2.2 % Normal 0.9-7.0 [facility] Comment on above: Performed By: #### C BC ####[facility] [address] [place], [place] [address]Dr. Idania Tai Erythrocyte distribution width (RBC) [Ratio] 13.1 % Normal 11.0-15.0 [facility] Comment on above: Performed By: #### C BC ####[facility] W[address] [place], [place] [address]Dr. Idania Tai Hematocrit (Bld) [Volume fraction] 44.5 % Normal 42.0-54.0 [facility] Comment on above: Performed By: #### C BC ####[facility] [address] [place], [place] [address]Dr. Idania Tai Hemoglobin (Bld) [Mass/Vol] 14.9 g/dL Normal 14.0-18.0 [facility] Comment on above: Performed By: #### C BC ####[facility] [address] [place], [place] [address]Dr. Idania Tai IG # 0.13 10e3/ul Critically high 0.00-0.03 [facility] Comment on above: Performed By: #### C BC ####[facility] [address] [place] [address]Dr. Idania Tai IG % 1.5 % Critically high 0.0-0.5 [facility] Comment on above: Performed By: #### C BC ####[facility] [address] [place] [address]Dr. Idania Tai LYMPH # 2.4 103/ul Normal 1.2-3.8 [facility] Comment on above: Performed By: #### C BC ####[facility] [address]uz[address] [place], [place] [address]Dr. Idania Tai Lymphocytes/100 WBC (Bld) 27.7 % Normal 20.5-60.0 [facility] Comment on above: Performed By: #### C BC ####[facility] [address] [place], [place] [address]Dr. Idania Tai MANUAL DIFF REQ NO Normal [facility] Comment on above: Performed By: #### C BC ####[facility] A[address] [place], [place] [address]Dr. Idania Zaire MCH (RBC) [Entitic mass] 28.9 pg Normal 25.9-34.0 [facility] Comment on above: Performed By: #### C BC ####[facility] [address] [place], [place] [address]Dr. Idania Zaire MCHC (RBC) [Mass/Vol] 33.5 g/dL Normal 29.9-35.2 [facility] Comment on above: Performed By: #### C BC ####[facility] [address] [place], [place] [address]DrAlly Tai MCV (RBC) [Entitic vol] 86.4 fL Normal 80.0-94.0 [facility] Comment on above: Performed By: #### C BC ####[facility] [address] [place], [place] [address]DrAlly Tai MONO # 0.6 103/ul Normal 0.3-0.8 [facility] Comment on above: Performed By: #### C BC ####[facility] [address] [place], [place] [address]Dr. Idania Tai Monocytes/100 WBC (Bld) 6.4 % Normal 1.7-12.0 [facility] Comment on above: Performed By: #### C BC ####[facility] [address] [place] [address]Dr. Idania Tai NEUT # 5.3 103/ul Normal 1.4-6.5 [facility] Comment on above: Performed By: #### C BC ####[facility] [address] [place] [address]Dr. Idania Tai Neutrophils/100 WBC (Bld) 61.4 % Normal 43.0-75.0 [facility] Comment on above: Performed By: #### C BC ####[facility] [address] [place] [address]Dr. Idania Tai Platelet mean volume (Bld) [Entitic vol] 9.7 fL Normal 9.5-13.5 [facility] Comment on above: Performed By: #### C BC ####[facility] [address] [place] [address]Dr. Idania Tai PLT 219 103/ul Normal 150-450 [facility] Comment on above: Performed By: #### C BC ####[facility] [address] [place], [place] [address]Dr. Idnaia Tai RBC 5.15 106/ul Normal 4.70-6.10 [facility] Comment on above: Performed By: #### C BC ####[facility] [address] [place] [address]Dr. Idania Tai WBC 8.6 103/ul Normal 4.0-11.0 [facility] Comment on above: Performed By: #### C BC ####[facility] [address] [place] [address]Dr. Idania Tai GLYCOHEMOGLOBIN A1Con 2021 ADA RECOMMENDATION ADA THERAPEUTIC TARGET 6.0 - 7.0 ACTION SUGGESTED > 7.0 Normal [facility] Comment on above: Performed By: #### A 1C ####[facility] [address] [place], [place] [address]Dr. Idania Tai Glucose [Mass/Vol] 128 mg/dL Normal [facility] Comment on above: Performed By: #### A 1C ####[facility] [address] [place], [place] [address]Dr. Idania Tai HbA1c (Bld) [Mass fraction] 6.1 % Critically high <=6.0 [facility] Comment on above: Performed By: #### A 1C ####[facility] [address] [place] [id number]. Idania Tai LIPID PROFILEon 09-11-2021 CHOL-HDL RATIO NORM SEE BELOW Normal [facility] Comment on above: Result Comment: 3.3 - 4.4 LOW RISK 4.4 - 7.1 AVERAGE RISK 7.1 - 11.0 MODERATE RISK >11.0 HIGH RISK Performed By: #### L IPID, CMP #### [facility] [address] [place] [address] [address] Idania Tai Cholesterol [Mass/Vol] 175 mg/dL Normal <=200 [facility] Comment on above: Performed By: #### L IPID, CMP #### [facility] [address] [address] [address] Idania Tai Cholesterol in HDL [Mass/Vol] 54 mg/dL Normal 40-60 [facility] Comment on above: Performed By: #### L IPID, CMP #### [facility] [address] [address] [address] Idania Tai Cholesterol in LDL [Mass/Vol] 87.2 mg/dL Normal [facility] Comment on above: Performed By: #### L IPID, CMP #### [facility] [address] [address] [address] Idania Tai Cholesterol.total/Choles terol in HDL [Mass ratio] 3.2 {ratio} Normal [facility] Comment on above: Performed By: #### L IPID, CMP #### [facility] [address] [address] [address] Idania Tai HDL NORMAL > or = 60 mg/dl - LOW CARDIOVASCULAR RISK <40 mg/dl - HIGH CARDIOVASCULAR RISK Normal [facility] Comment on above: Performed By: #### L IPID, CMP #### [facility] [address] [address] [address] Idania Tai LDL CALC NORMAL SEE BELOW Normal [facility] Comment on above: Result Comment: <100 mg/dl OPTIMAL 100 - 129 mg/dl NEAR OR ABOVE OPTIMAL 130 - 159 mg/dl BORDERLINE HIGH 160 - 189 mg/dl HIGH >190 mg/dl VERY HIGH Performed By: #### L IPID, CMP #### [facility] [address] [address] [address] Idania Tai Triglyceride [Mass/Vol] 169 mg/dL Critically high <=150 [facility] Comment on above: Performed By: #### L IPID, CMP #### [facility] [address] [address] [address] Idania Tai VLDL CALC 33.8 mg/dL Normal [facility] Comment on above: Performed By: #### L IPID, CMP #### [facility] [address] [address] [address] Idania Tai MICROALBUMIN, RAND URon 08-25 mALB 1.9 mg/L Normal <=30.0 [facility] Comment on above: Performed By: #### M ALBR #### [facility] [address] [address] [address] Idania Tai PROF 14(COMP METB)on 022 Albumin [Mass/Vol] 3.7 g/dL Normal 3.4-5.0 [facility] Comment on above: Performed By: #### L IPID, CMP #### [facility] [address] [address] [address] Idania Tai Albumin/Globulin [Mass ratio] 0.9 {ratio} Normal [facility] Comment on above: Performed By: #### L IPID, CMP #### [facility] [address] [address] [address] Idania Tai ALP [Catalytic activity/Vol] 73 U/L Normal 46-116 [facility] Comment on above: Performed By: #### L IPID, CMP #### [facility] [address] [address] [address] Idania Tai ALT [Catalytic activity/Vol] 68 U/L Critically high 16-63 [facility] Comment on above: Performed By: #### L IPID, CMP #### [facility] [address] [address] [address] Idania Tai Anion gap [Moles/Vol] 10.2 mmol/L Normal [facility] Comment on above: Performed By: #### L IPID, CMP #### [facility] [address] [address] [address] Idania Tai AST [Catalytic activity/Vol] 30 U/L Normal 15-37 [facility] Comment on above: Performed By: #### L IPID, CMP #### [facility] [address] [place] [address] Dr. Idania Tai Bilirubin [Mass/Vol] 1.0 mg/dL Normal 0.2-1.3 [facility] Comment on above: Performed By: #### L IPID, CMP #### [facility] [address] [address] [address] Idania Tai Calcium [Mass/Vol] 8.5 mg/dL Normal 8.5-10.1 [facility] Comment on above: Performed By: #### L IPID, CMP #### [facility] [address] [address] [address] Idania Tai Chloride [Moles/Vol] 101 mmol/L Normal 98-107 [facility] Comment on above: Performed By: #### L IPID, CMP #### [facility] [address] [address] [address] Idania Tai CO2 [Moles/Vol] 31.6 mmol/L Critically high 22.0-30.0 [facility] Comment on above: Performed By: #### L IPID, CMP #### [facility] [address] [address] [address] Idania Tai Creatinine [Mass/Vol] 0.67 mg/dL Normal 0.66-1.25 [facility] Comment on above: Performed By: #### L IPID, CMP #### [facility] [address] [address] [address] Idania Tai EGFR-AF GIBRALTARIAN >60 Normal >=60 [facility] Comment on above: Performed By: #### L IPID, CMP #### [facility] [address] [address] [address] Idania Tai EGFR-NON AF GIBRALTARIAN >60 Normal >=60 [facility] Comment on above: Performed By: #### L IPID, CMP #### [facility] [address] [address] [address] Idania Tai Globulin (S) [Mass/Vol] 4.0 g/dL Normal [facility] Comment on above: Performed By: #### L IPID, CMP #### [facility] [address] [address] [address] Idania Tai Glucose [Mass/Vol] 114 mg/dL Critically high 74-106 [facility] Comment on above: Performed By: #### L IPID, CMP #### [facility] [address] [address] [address] Idania Tai Potassium [Moles/Vol] 4.8 mmol/L Normal 3.4-5.0 [facility] Comment on above: Performed By: #### L IPID, CMP #### [facility] [address] [address] [address] Idania Tai Protein [Mass/Vol] 7.7 g/dL Normal 6.1-8.2 [facility] Comment on above: Performed By: #### L IPID, CMP #### [facility] [address] [address] [address] Idania Tai Sodium [Moles/Vol] 138 mmol/L Normal 137-145 [facility] Comment on above: Performed By: #### L IPID, CMP #### [facility] [address] [address] [address] Idania Tai Urea nitrogen [Mass/Vol] 12.0 mg/dL Normal 7.0-18.0 [facility] Comment on above: Performed By: #### L IPID, CMP #### [facility] [address] [address] [address] Idania Tai Urea nitrogen/Creatinine [Mass ratio] 17.9 mg/mg Normal [facility] Comment on above: Performed By: #### L IPID, CMP #### [facility] [id number] Idania Tai Vital Signs Date Time Vital Sign Value Performing Clinician Faci lity 09-10-2022 13:15-0400 Diastolic blood pressure 64 mm[Hg] MD Shaikh Baker Work Phone: [facility] 09-10-2022 13:15-0400 Heart rate 54 /min MD Shaikh Baker Work Phone: [facility] 09-10-2022 13:15-0400 Respiratory rate 16 /min MD Shaikh Baker Work Phone: [facility] 09-10-2022 13:15-0400 SaO2% (BldA) [Mass fraction] 97 % MD Shaikh Baker Work Phone: [facility] 09-10-2022 13:15-0400 Systolic blood pressure 100 mm[Hg] MD Shaikh Baker Work Phone: [facility] 09-10-2022 12:25-0400 Body temperature 97.5 [degF] MD Shaikh Baker Work Phone: [facility] 09-10-2022 11:55-0400 Inhaled oxygen flow rate 8 L/min MD Shaikh Baker Work Phone: [facility] 09-10-2022 10:54-0400 Body height 165.1 cm MD Shaikh Baker Work Phone: [facility] 09-10-2022 10:54-0400 Body mass index (BMI) [Ratio] 38.6 kg/m2 MD Shaikh Baker Work Phone: [facility] 09-10-2022 10:54-0400 Body weight 105.4 kg MD Shaikh Baker Work Phone: [facility] 12-22-2021 10:00-0400 Diastolic blood pressure 87 mm[Hg] MD Sav Andrews Work Phone: [facility] 12-22-2021 10:00-0400 Heart rate 54 /min MD Sav Andrews Work Phone: [facility] 12-22-2021 10:00-0400 Respiratory rate 18 /min MD Sav Andrews Work Phone: [facility] 12-22-2021 10:00-0400 SaO2% (BldA) [Mass fraction] 100 % MD Sav Andrews Work Phone: [facility] 12-22-2021 10:00-0400 Systolic blood pressure 139 mm[Hg] MD Sav Andrews Work Phone: [facility] 12-22-2021 07:37-0400 Body height 170.18 cm MD Sav Andrews Work Phone: [facility] 12-22-2021 07:37-0400 Body temperature 97.9 [degF] MD Sav Andrews Work Phone: [facility] 12-22-2021 07:37-0400 Body weight 81.64 kg MD Sav Andrews Work Phone: [facility] Encounters Encounter Date Encounter Type Care Provider Facility Start: 09-10-2022 [facility] Start: 09-10-2022 End: 09-10-2022 Admission to same day surgery center MD Shaikh Baker Work Phone: [facility] Start: 09-10-2022 End: 09-10-2022 ambulatory MD Shaikh Baker Work Phone: [facility] Work Phone: Start: 08-30-2022 End: 08-30-2022 ambulatory Silver Briceño Facility:[facility] Start: 08-30-2022 End: 08-30-2022 ambulatory MD Shaikh Baker Work Phone: [facility] Work Phone: Start: 08-30-2022 End: 08-30-2022 Patient encounter procedure MD Shaikh Baker Work Phone: [facility] Work Phone: Start: 07-07-2022 End: 07-08-2022 ambulatory SHAIKH Adan BAKER Facility:[facility] Start: 03-13-2022 End: 03-14-2022 ambulatory SHAIKH Adan BAKER Facility:[facility] Start: 12-22-2021 End: 12-22-2021 ambulatory Sav Andrews Facility:[facility] Start: 12-22-2021 End: 12-22-2021 Admission to same day surgery center MD Sav Andrews Work Phone: [facility] Start: 12-20-2021 End: 12-20-2021 ambulatory Sav Andrews Facility:[facility] Start: 12-20-2021 End: 12-20-2021 Patient encounter procedure MD Sav Andrews Work Phone: [facility] Start: 11-14-2021 End: 11-15-2021 ambulatory REY [...] Activity Detail Author Start: 09-10-2022 End: 09-10-2022 [facility] Start: 12-22-2021 [facility] Work Phone: Patient Education Hemorrhoids [facility] Work Phone: Immunizations Immunization Date Immunization Notes Care Provider Fa [facility] 10-10-2020 COVID-19 mRNA Comirnatjoey (Pfizer) MD Sav Andrews Work Phone: [facility] 09-19-2020 COVID-19 mRNA Comirmichelle (Pfizer) MD Sav Andrews Work Phone: [facility] Payers Date Payer Category Payer Self-pay [id number] 1965 Unknown [id number] 2.16.84 [id number] 1965 Unknown [id number] 2.16.84 [id number] 1966 Unknown [id number] 2.16.84 [id number]. 1966 Unknown [id number] .16.84 [id number] 1966 Unknown [id number] 2.16.84 [id number]. 1966 Unknown [id number] 2.16.84 [id number] 1965 Unknown [id number] 2.16.84 [id number] 1959 Unknown [id number] Unknown [id number] 2.16.8 [id number] Unknown [id number] 2.16.8 [id number] Unknown [id number] 2.16.8 [id number] Unknown [id number] 2.16.8 [id number] Social History Date Type Detail Facility Start: 12-22-2021 End: 09-10-2022 Tobacco smoking status NHIS Ex-smoker (finding) [facility] Start: 1965 Sex Assigned At Male [facility] Goals Date Patient Goal Desired Activity /State Procedure note 12-22-2021 Note Date & Type Note Facility 12-22-2021 Procedure note [facility] Clinical Note 10-26-2021 Note Date & Type [...] authenticated by: MICHELLE IBRAHIM Date: 2021-10-26 08:54 [facility] Clinical Note 09-05-2021 Note Date & Type [...] authenticated by: GERA BLUM Date: 2021-09-05 15:22 [facility] Evaluation note Note Date & Type Note Facility Evaluation note No assessment information availa ble [facility] Work Phone: History and physical note Note Date & Type Note Facility History and physical note Note Date/Time December 22, 2021 9:32 am [facility] [address] [place] [address] Gastroenterology H&P Signed Patient: Dante Dietz MR #: [id number] : 1965 Acct:[id number] Age/Sex: 56 / M Adm Date: 2 Loc: Room: Type: [facility] Attending Dr: Sav Andrews MD Copies [...] <Electronically signed by Sav Andrews MD> 12/22/21931 [facility] Work Phone: Chief Complaint and Reason [...] DATE CREATED AUTHOR 07/14/2022 [facility] DATE CREATED AUTHOR 'S ORGANIZ ATION 10/02/2022 [facility] Goals (unrecognized section and content) Goals may [...] BE BASED ON THE PRIMARY CLINICAL RECORDS. [facility] provides no warranty or guarantee of the accuracy or completeness of information in this document.
== END 2023-06-26 13:56 | disposition home or self-care (01) ==
LOC: RAD 13:55
PROVIDERS: PCP Internal Medicine; Visit Provider Podiatrist Foot & Ankle Surgery
DX: M19.071 Primary osteoarthritis, right ankle and foot (principal)
CPT/HCPCS: 73610

== ENCOUNTER 2023-07-16 13:01 | Outpatient (OUT) | payer BC, SELFPAY ==
--- NOTE | 2023-07-16 | XR_ITS ---
The [address] [address] Patient Name: LAVERN GARCIA MRN: [id number] date: 1965 Sex: M Assigned Patient Location: [facility] Current Patient Location: Accession/Order Number: [id number] Exam Date: 07/16/2023 13:10 Report Date: 07/17/2023 06:52 At the request of: REY ALCARAZ Procedure: XR foot RT min 3V PROCEDURE: XR ankle RT min 3V, XR foot RT min 3V HISTORY: RIGHT ANKLE PAIN COMPARISON: XR ankle right 06/26/2023 FINDINGS: BONES:Prior ankle and hindfoot fusion via intramedullary lot and locking screws. Prosthetic spacer replacement of the talus. No appreciable hardware fracture or loosening. No bone fracture dislocation. Mild-moderate degenerative changes of the midfoot. SOFT TISSUES:No visible soft tissue swelling. EFFUSION:None visible. OTHER: Negative. XR/XR foot RT min 3V IMPRESSION: 1. Stable surgical changes without evidence of hardware failure or change in alignment. Electronically authenticated by: MICHELLE IBRAHIM Date: 07/17/2023 06:52
--- NOTE | 2023-07-16 | XR_ITS ---
The [address] [address] Patient Name: LAVERN GARCIA MRN: [id number] date: 1965 Sex: M Assigned Patient Location: [facility] Current Patient Location: Accession/Order Number: [id number] Exam Date: 07/16/2023 13:10 Report Date: 07/17/2023 06:52 At the request of: REY ALCARAZ Procedure: XR ankle RT min 3V PROCEDURE: XR ankle RT min 3V, XR foot RT min 3V HISTORY: RIGHT ANKLE PAIN COMPARISON: XR ankle right 06/26/2023 FINDINGS: BONES:Prior ankle and hindfoot fusion via intramedullary lot and locking screws. Prosthetic spacer replacement of the talus. No appreciable hardware fracture or loosening. No bone fracture dislocation. Mild-moderate degenerative changes of the midfoot. SOFT TISSUES:No visible soft tissue swelling. EFFUSION:None visible. OTHER: Negative. XR/XR ankle RT min 3V IMPRESSION: 1. Stable surgical changes without evidence of hardware failure or change in alignment. Electronically authenticated by: MICHELLE IBRAHIM Date: 07/17/2023 06:52
== END 2023-07-16 13:02 | disposition home or self-care (01) ==
PROVIDERS: PCP Internal Medicine; Visit Provider Podiatrist Foot & Ankle Surgery
DX: M19.071 Primary osteoarthritis, right ankle and foot (principal); Z98.890 Other specified postprocedural states
CPT/HCPCS: 73610; 73630

== ENCOUNTER 2023-08-08 10:02 | Outpatient (OUT) | payer BC, SELFPAY ==
--- OUTSIDE RECORDS SUMMARY | 2023-08-08 10:22 | XMS_ITS | CCD ---
Author Name Unknown Address [address] [place] [address] Organization [facility] Care Team Providers Care Bobbin Doffer Name Role Phone MD Sav Andrews Attending Provider [phone] MD Deana Baker Primary Care Provider DR ASA AL Attending Unavailable ACACIA JENKINS Primary Care Unavailable DR ASA AL Admitting Unavailable LIZETH MARTIN Attending Unavailable KULWANT, DR GERA [employer] Unavailable LIZETH MARTIN Admitting Unavailable GREGORY ACACIA TONIO Primary Care Unavailable LIZETH MARTIN Consulting Unavailable [...] Andrews Attending Unavailable Sav Andrews Admitting [facility] Un[facility] Silver Briceño Attending Unavailable Silver Briceño Admitting Unavailable [facility] Unavailable Sav Andrews Admitting Unavailable Sav Andrews Attending Unavailable Silver Briceño Attending Unavailable Silver Briceño Admitting Unavailable [facility] Unavailable Medications Current Medications Medication Drug Class(es) Dates Sig (Normalized) Sig (Original) [id number] 200 actuat albuterol 0.09 mg/actuat metered dose [...] MG PO Daily December 22, 2021 12:00am Reagan 7-Ych-Ahn-Fish Oil (Fish Oil) 1,200 (144-216) mg Capsule (4 sources) Start: 12-22-2021 take 1 capsule by mouth twice daily Reagan 0-Exy-Haj-Fish Oil (Fish Oil) 1,200 (144-216) mg Capsule [...] Briceño on 09-10-2022 Glucose [Mass/Vol] 137 mg/dL [facility] Comment on above: Random Glucose Refer ence Range is dependent on time and content of last meal. Glucose of more than 200 mg/dL in a nonstressed, ambulatory subject supports the diagnosis of Diabetes Mellitus. Glucose [Mass/Vol] 131 mg/dL [facility] Comment on above: Random Glucose Refer ence Range is dependent on time and content of last meal. Glucose of more than 200 mg/dL in a nonstressed, ambulatory subject supports the diagnosis of Diabetes Mellitus. Glucose Poct Glucometerson 0 09-10-2022 Glucose [Mass/Vol] 137 mg/dL Normal [facility] Comment on above: Result Comment: [place] om Glucose Reference Range is dependent on time and content of last meal. Glucose of more than 200 mg/dL in a nonstressed, ambulatory subject supports the diagnosis of Diabetes Mellitus. PERFORMED BY: [place] [address] PATHOLOGIST PIN INSERTER REGULATOR TEOFILO KHAN M.D. Performed By: #### G LULS #### Point of Care testing , Glucose [Mass/Vol] 131 mg/dL Normal [facility] Comment on above: Result Comment: [place] om Glucose Reference Range is dependent on time and content of last meal. Glucose of more than 200 mg/dL in a nonstressed, ambulatory subject supports the diagnosis of Diabetes Mellitus. PERFORMED BY: [place] [address] PATHOLOGIST PIN INSERTER REGULATOR TEOFILO KHAN M.D. Performed By: #### G LULS #### Point of Care testing , Basic Metabolic Panelon Anion gap [Moles/Vol] 13.5 mmol/L Normal 6.0-15.0 [facility] Comment on above: Performed By: #### C BC, BMP #### [address] Calcium [Mass/Vol] 9.4 mg/dL Normal 8.6-10.3 [facility] Comment on above: Result Comment: PERF ORMED BY: [place] [address] PATHOLOGIST PIN INSERTER REGULATOR TEOFILO KHAN M.D. Performed By: #### C BC, BMP #### [facility] [address] [place] [address] [place] Chloride [Moles/Vol] 102 mmol/L Normal 98-107 [facility] Comment on above: Performed By: #### C BC, BMP #### [facility] [address] [place] [address] [place] CO2 [Moles/Vol] 28.5 mmol/L Normal 21.0-31.0 [facility] Comment on above: Performed By: #### C BC, BMP #### [facility] [address] [place] [address] [place] Creatinine [Mass/Vol] 0.99 mg/dL Normal 0.70-1.30 [facility] Comment on above: Performed By: #### C BC, BMP #### [facility] [address] [place] [address] [place] GFR/1.73 sq M.predicted MDRD (S/P/Bld) [Vol rate/Area] mL/min/{1.73_m2} Normal [facility] Comment on above: Performed By: #### C BC, BMP #### [place] [address] [place] Glucose [Mass/Vol] 114 mg/dL High 70-100 [facility] Comment on above: Result Comment: [place] Glucose Reference Range is dependent on time and content of last meal. Glucose of more than 200 mg/dL in a nonstressed, ambulatory subject supports the diagnosis of Diabetes Mellitus. ADA recommended reference range Performed By: #### C BC, BMP #### [facility] [address] [place] [address] [place] Potassium [Moles/Vol] 4.0 mmol/L Normal 3.5-5.1 [facility] Comment on above: Performed By: #### C BC, BMP #### [facility] [address] Sodium [Moles/Vol] 140 mmol/L Normal 136-145 [facility] Comment on above: Performed By: #### C BC, BMP #### [facility] [address] Urea nitrogen [Mass/Vol] 21 mg/dL Normal 7-25 [facility] Comment on above: Performed By: #### C BC, BMP #### [facility] [address] Basophils Auto (Bld) [#/Vol] Ordered By: Silver Briceño on 08-30-2022 Basophils (Bld) [#/Vol] 0.0 10*3/uL 0.0-0.2 [facility] Basophils/100 WBC Auto (Bld) Ordered By: Silver Briceño on 08-30-2022 Basophils/100 WBC (Bld) 0.7 % . [facility] Calcium [Mass/volume] in Ser um or PlasmaOrdered By: Silver Briceño on 08-30-2022 Calcium [Mass/Vol] 9.4 mg/dL 8.6-10.3 [facility] Carbon dioxide, total [Moles /volume] in Serum or PlasmaOrdered By: Silver Briceño on 08-30-2022 CO2 [Moles/Vol] 28.5 mmol/L 21.0-31.0 [facility] Chloride [Moles/volume] in S gela or PlasmaOrdered By: Silver Briceño on 08-30-2022 Chloride [Moles/Vol] 102 mmol/L 98-107 [facility] Complete Blood Count Auto Di ffon 08-30-2022 Basophils (Bld) [#/Vol] 0.0 10*3/uL Normal 0.0-0.2 [facility] Comment on above: Result Comment: PERF ORMED BY: [place] [address] PATHOLOGIST PIN INSERTER REGULATOR TEOFILO KHAN M.D. Performed By: #### C BC, BMP #### [address] [place] [address] [place] Basophils/100 WBC (Bld) 0.7 % Normal . [facility] Comment on above: Performed By: #### C BC, BMP #### [facility] [address] Eosinophils (Bld) [#/Vol] 0.3 10*3/uL Normal 0.0-0.45 [facility] Comment on above: Performed By: #### C BC, BMP #### [facility] [address] Eosinophils/100 WBC (Bld) 6.1 % Normal . [facility] Comment on above: Performed By: #### C BC, BMP #### [address] Erythrocyte distribution width (RBC) [Ratio] 14.5 % Normal 12.0-14.8 [facility] Comment on above: Performed By: #### C BC, BMP #### [address] Hematocrit (Bld) [Volume fraction] 36.5 % Low 38.8-50.0 [facility] Comment on above: Performed By: #### C BC, BMP #### [address] Hemoglobin (Bld) [Mass/Vol] 12.5 g/dL Low 13.0-17.0 [facility] Comment on above: Performed By: #### C BC, BMP #### [address] Lymphocytes (Bld) [#/Vol] 1.8 10*3/uL Normal 1.00-4.8 [facility] Comment on above: Performed By: #### C BC, BMP #### [address] Lymphocytes/100 WBC (Bld) 35.5 % Normal . [facility] Comment on above: Performed By: #### C BC, BMP #### [address] MCH (RBC) [Entitic mass] 29.2 pg Normal 27.5-35.2 [facility] Comment on above: Performed By: #### C BC, BMP #### [address] MCV (RBC) [Entitic vol] 85.1 fL Normal 83.5-101 [facility] Comment on above: Performed By: #### C BC, BMP #### [address] Mean Corpuscular HGB Conc 34.3 g/dL Normal 32.5-35.6 [facility] Comment on above: Performed By: #### C BC, BMP #### [address] Monocytes (Bld) [#/Vol] 0.4 10*3/uL Normal 0.0-0.8 [facility] Comment on above: Performed By: #### C BC, BMP #### [address] Monocytes/100 WBC (Bld) 8.2 % Normal . [facility] Comment on above: Performed By: #### C BC, BMP #### [address] Neutrophils (Bld) [#/Vol] 2.5 10*3/uL Normal 1.8-7.7 [facility] Comment on above: Performed By: #### C BC, BMP #### [address] Neutrophils/100 WBC (Bld) 49.5 % Normal . [facility] Comment on above: Performed By: #### C BC, BMP #### [address] NRBC% 0.2 /100{WBC} Normal 0-0.5 [facility] Comment on above: Performed By: #### C BC, BMP #### [address] Platelet mean volume (Bld) [Entitic vol] 8.8 fL Normal 6.6-10.1 [facility] Comment on above: Performed By: #### C SAI, BMP #### [facility] [address] Platelets (Bld) [#/Vol] 155 10*3/uL Normal 150-450 [facility] Comment on above: Performed By: #### C SAI, BMP #### [facility] [address] RBC (Bld) [#/Vol] 4.29 10*6/uL Normal 3.90-5.60 [facility] Comment on above: Performed By: #### C SAI, BMP #### [facility] [address] WBC (Bld) [#/Vol] 5.1 10*3/uL Normal 4.1-10.5 [facility] Comment on above: Performed By: #### C SAI, BMP #### [address] Creatinine [Mass/volume] in Serum or PlasmaOrdered By: Silver Briceño on 08-30-2022 Creatinine [Mass/Vol] 0.99 mg/dL 0.70-1.30 [facility] ECG 12 lead ECGon 08-30-2022 ECG 12 lead ECG [facility] Main [place] [address] [place] [address] Electrocardiograph Report Signed Patient: Dante Dietz MR#: [id number] : 1965 Acct:[id number] Age/Sex: 57 / M ADM Date: 08/30/22 Loc: Room: Type: [facility] Attending Dr: Silver Briceño DO [...] previous ECGs available Confirmed by KATE GUPTA [id number] on 08/31/2022 12:23:25 PM Referred By: FREDDY Electronically Signed By:LEANNA LOVE MD [facility] Transcribed By: ESTELLE Signed By Leo Love MD 08/31/22 1223 Normal [facility] Eosinophils Auto (Bld) [#/Vo l]Ordered By: Silver Briceño on 08-30-2022 Eosinophils (Bld) [#/Vol] 0.3 10*3/uL 0.0-0.45 [facility] Eosinophils/100 WBC Auto (Bl d)Ordered By: Silver Briceño on 08-30-2022 Eosinophils/100 WBC (Bld) 6.1 % . [facility] Erythrocyte distribution wid th Auto (RBC) [Ratio]Ordered By: Silver Briceño on 08-30-2022 Erythrocyte distribution width (RBC) [Ratio] 14.5 % 12.0-14.8 [facility] Glucose [Mass/volume] in Ser um or PlasmaOrdered By: Silver Briceño on 08-30-2022 Glucose [Mass/Vol] 114 mg/dL 70-100 [facility] Comment on above: ADA recommended refe rence rangeRandom Glucose Reference Range is dependent on time and content of last meal. Glucose of more than 200 mg/dL in a nonstressed, ambulatory subject supports the diagnosis of Diabetes Mellitus. Hematocrit Auto (Bld) [Volum e fraction]Ordered By: Silver Briceño on 08-30-2022 Hematocrit (Bld) [Volume fraction] 36.5 % 38.8-50.0 [facility] Hemoglobin [Mass/volume] in BloodOrdered By: Silver Briceño on 08-30-2022 Hemoglobin (Bld) [Mass/Vol] 12.5 g/dL 13.0-17.0 [facility] Leukocytes [#/volume] correc shashi for nucleated erythrocytes in Blood by Automated counOrdered By: Silver Briceño on 08-30-2022 WBC corrected for nucl RBC Auto (Bld) [#/Vol] 5.1 10*3/uL 4.1-10.5 [facility] Lymphocytes Auto (Bld) [#/Vo l]Ordered By: Silver Briceño on 08-30-2022 Lymphocytes (Bld) [#/Vol] 1.8 10*3/uL 1.00-4.8 [facility] Lymphocytes/100 WBC Auto (Bl d)Ordered By: Silver Briceño on 08-30-2022 Lymphocytes/100 WBC (Bld) 35.5 % . [facility] MCH Auto (RBC) [Entitic mass ]Ordered By: Silver Briceño on 08-30-2022 MCH (RBC) [Entitic mass] 29.2 pg 27.5-35.2 [facility] MCHC Auto (RBC) [Mass/Vol]Or dered By: Sliver Briceño on 08-30-2022 MCHC (RBC) [Mass/Vol] 34.3 g/dL 32.5-35.6 [facility] MCV Auto (RBC) [Entitic vol] Ordered By: Silver Briceño on 08-30-2022 MCV (RBC) [Entitic vol] 85.1 fL 83.5-101 [facility] Monocytes Auto (Bld) [#/Vol] Ordered By: Silver Briceño on 08-30-2022 Monocytes (Bld) [#/Vol] 0.4 10*3/uL 0.0-0.8 [facility] Monocytes/100 WBC Auto (Bld) Ordered By: Silver Briceño on 08-30-2022 Monocytes/100 WBC (Bld) 8.2 % . [facility] Neutrophils Auto (Bld) [#/Vo l]Ordered By: Silver Briceño on 08-30-2022 Neutrophils (Bld) [#/Vol] 2.5 10*3/uL 1.8-7.7 [facility] Neutrophils/100 WBC Auto (Bl d)Ordered By: Silver Briceño on 08-30-2022 Neutrophils/100 WBC (Bld) 49.5 % . [facility] No Panel InformationOrdered By: Silver Briceño on 08-30-2022 Estimated GFR (CKD-EPI) > 60.0 mL/Min [facility] Creatinine Clearance (Chem N/A [facility] Nucleated erythrocytes [Pres ence] in Blood by Automated countOrdered By: Silver Briceño on 08-30-2022 Nucleated RBC Auto Ql (Bld) 0.2 /100{WBC} 0-0.5 [facility] Platelet mean volume Auto (B ld) [Entitic vol]Ordered By: Silver Briceño on 08-30-2022 Platelet mean volume (Bld) [Entitic vol] 8.8 fL 6.6-10.1 [facility] Platelets Auto (Bld) [#/Vol] Ordered By: Silver Briceño on 08-30-2022 Platelets (Bld) [#/Vol] 155 10*3/uL 150-450 [facility] Potassium [Moles/volume] in Serum or PlasmaOrdered By: Silver Briceño on 08-30-2022 Potassium [Moles/Vol] 4.0 mmol/L 3.5-5.1 [facility] RBC Auto (Bld) [#/Vol]Ordere d By: Silver Briceño on 08-30-2022 RBC (Bld) [#/Vol] 4.29 10*6/uL 3.90-5.60 [facility] Serum or plasma anion gap de terminationOrdered By: Silver Briceño on 08-30-2022 Anion gap [Moles/Vol] 13.5 mmol/L 6.0-15.0 [facility] Sodium [Moles/volume] in Ser um or PlasmaOrdered By: Silver Briceño on 08-30-2022 Sodium [Moles/Vol] 140 mmol/L 136-145 [facility] Urea nitrogen [Mass/volume] in Serum or PlasmaOrdered By: Silver Briceño on 08-30-2022 Urea nitrogen [Mass/Vol] 21 mg/dL 7-25 [facility] WBC Auto (Bld) [#/Vol]Ordere d By: Silver Briceño on 08-30-2022 WBC (Bld) [#/Vol] 5.1 10*3/uL 4.1-10.5 [facility] GLYCOHEMOGLOBIN A1Con 2022 ADA RECOMMENDATION SEE BELOW Normal [facility] Comment on above: Result Comment: ADA RECOMMENDED LIMIT 4.0 - 6.0 ADA THERAPEUTIC TARGET < 7.0 ACTION SUGGESTED > 7.0 Performed By: #### A 1C #### [facility] [address] [place] [address] Dr. Idania Tai Glucose [Mass/Vol] 243 mg/dL Normal [facility] Comment on above: Performed By: #### A 1C #### [facility] [address] [place] [address] Dr. Idania Tai HbA1c (Bld) [Mass fraction] 10.1 % Critically high 4.5-6.2 [facility] Comment on above: Performed By: #### A 1C #### [facility] [address] [place] [address] Dr. Idania Tai LIPID PROFILEon 07-07-2022 CHOL-HDL RATIO NORM SEE BELOW Normal [facility] Comment on above: Result Comment: 3.3 - 4.4 LOW RISK 4.4 - 7.1 AVERAGE RISK 7.1 - 11.0 MODERATE RISK >11.0 HIGH RISK Performed By: #### B MP, LIPID #### [facility] [address] [place] [address] Dr. Idania Tai Cholesterol [Mass/Vol] 172 mg/dL Normal <=200 [facility] Comment on above: Performed By: #### B MP, LIPID #### [facility] [address] [place] [address] Dr. Idania Tai Cholesterol in HDL [Mass/Vol] 48 mg/dL Normal 40-60 [facility] Comment on above: Performed By: #### B MP, LIPID #### [facility] [address] [place] [address] Dr. Idania Tai Cholesterol in LDL [Mass/Vol] 95.6 mg/dL Normal [facility] Comment on above: Performed By: #### B MP, LIPID #### [facility] [address] [place] [address] Dr. Idania Tai Cholesterol.total/Choles terol in HDL [Mass ratio] 3.6 {ratio} Normal [facility] Comment on above: Performed By: #### B MP, LIPID #### [facility] [address] [address] [address] Idania Tai HDL NORMAL > or = 60 mg/dl - LOW CARDIOVASCULAR RISK <40 mg/dl - HIGH CARDIOVASCULAR RISK Normal [facility] Comment on above: Performed By: #### B MP, LIPID #### [facility] [address] [place] [address] Dr. Idania Tai LDL CALC NORMAL SEE BELOW Normal [facility] Comment on above: Result Comment: <100 mg/dl OPTIMAL 100 - 129 mg/dl NEAR OR ABOVE OPTIMAL 130 - 159 mg/dl BORDERLINE HIGH 160 - 189 mg/dl HIGH >190 mg/dl VERY HIGH Performed By: #### B MP, LIPID #### [facility] [address] [place] [address] Dr. Idania Tai Triglyceride [Mass/Vol] 142 mg/dL Normal <=150 [facility] Comment on above: Performed By: #### B MP, LIPID #### [facility] [address] [address] [address] Idania Tai VLDL CALC 28.4 mg/dL Normal [facility] Comment on above: Performed By: #### B MP, LIPID #### [facility] [address] [place] [address] Dr. Idania Tai PROF CHEM 8 (BAS METB)on Anion gap [Moles/Vol] 11.0 mmol/L Normal [facility] Comment on above: Performed By: #### B MP, LIPID #### [facility] [address] [place] [address] Dr. Idania Tai Calcium [Mass/Vol] 9.1 mg/dL Normal 8.5-10.1 [facility] Comment on above: Performed By: #### B MP, LIPID #### [facility] [address] [place] [address] Dr. Idania Tai Chloride [Moles/Vol] 100 mmol/L Normal 98-107 [facility] Comment on above: Performed By: #### B MP, LIPID #### [facility] [address] [place] [address] Dr. Idania Tai CO2 [Moles/Vol] 32.6 mmol/L Critically high 21.0-32.0 [facility] Comment on above: Performed By: #### B MP, LIPID #### [facility] [address] [place] [address] Dr. Idania Tai Creatinine [Mass/Vol] 0.81 mg/dL Normal 0.70-1.30 [facility] Comment on above: Performed By: #### B MP, LIPID #### [facility] [address] [address] [address] Idania Tai EGFR-AF KOSOVAN >60 Normal >=60 [facility] Comment on above: Performed By: #### B MP, LIPID #### [facility] [address] [place] [address] Dr. Idania Tai EGFR-NON AF KOSOVAN >60 Normal >=60 [facility] Comment on above: Performed By: #### B MP, LIPID #### [facility] [address] [place] [address] Dr. Idania Tai Glucose [Mass/Vol] 157 mg/dL Critically high 74-106 T [facility] Comment on above: Performed By: #### B MP, LIPID #### [facility] [address] [place] [address] Dr. Idania Tai Potassium [Moles/Vol] 3.6 mmol/L Normal 3.5-5.1 [facility] Comment on above: Performed By: #### B MP, LIPID #### [facility] [address] [place] [address] Dr. Idania Tai Sodium [Moles/Vol] 140 mmol/L Normal 136-145 [facility] Comment on above: Performed By: #### B MP, LIPID #### [facility] [address] [place] [address] Dr. Idania Tai Urea nitrogen [Mass/Vol] 16.0 mg/dL Normal 7.0-18.0 [facility] Comment on above: Performed By: #### B MP, LIPID #### [facility] [address] [place] [address] Dr. Idania Tai Urea nitrogen/Creatinine [Mass ratio] 19.8 mg/mg Normal [facility] Comment on above: Performed By: #### B MP, LIPID #### [facility] [address] [place] [address] Dr. Idania Tai PROF CHEM 8 (BAS METB)on Anion gap [Moles/Vol] 16.1 mmol/L Normal [facility] Comment on above: Performed By: #### B MP #### [facility] [address] [place] [address] Dr. Idania Tai Calcium [Mass/Vol] 9.4 mg/dL Normal 8.5-10.1 [facility] Comment on above: Performed By: #### B MP #### [facility] [address] [place] [address] Dr. Idania Tai Chloride [Moles/Vol] 98 mmol/L Normal 98-107 [facility] Comment on above: Performed By: #### B MP #### [facility] [address] [place] [address] Dr. Idania Tai CO2 [Moles/Vol] 26.0 mmol/L Normal 21.0-32.0 [facility] Comment on above: Performed By: #### B MP #### [facility] [address] [place] [address] Dr. Idania Tai Creatinine [Mass/Vol] 0.78 mg/dL Normal 0.70-1.30 [facility] Comment on above: Performed By: #### B MP #### [facility] [address] [place] [address] Dr. Idania Tai EGFR-AF KOSOVAN >60 Normal >=60 [facility] Comment on above: Performed By: #### B MP #### [facility] [address] [place] [address] Dr. Idania Tai EGFR-NON AF KOSOVAN >60 Normal >=60 [facility] Comment on above: Performed By: #### B MP #### [facility] [address] [place] [address] Dr. Idania Tai Glucose [Mass/Vol] 131 mg/dL Critically high 74-106 T [facility] Comment on above: Performed By: #### B MP #### [facility] [address] [address] [address] Idania Tai Potassium [Moles/Vol] 4.1 mmol/L Normal 3.5-5.1 [facility] Comment on above: Performed By: #### B MP #### [facility] [id number] Idania Tai Sodium [Moles/Vol] 136 mmol/L Normal 136-145 [facility] Comment on above: Performed By: #### B MP #### [facility] [address] [address] [address] Idania Tai Urea nitrogen [Mass/Vol] 19.0 mg/dL Critically high 7.0-18 .0 [facility] Comment on above: Performed By: #### B MP #### [facility] [address] [address] [address] Idania Tai Urea nitrogen/Creatinine [Mass ratio] 24.4 mg/mg Normal [facility] Comment on above: Performed By: #### B MP #### [facility] [id number] Idania Tai Glucose Glucometer ([facility]) [M ass/Vol]Ordered By: Sav Andrews on 12-22-2021 Glucose [Mass/Vol] 113 mg/dL [facility] Comment on above: Random Glucose Refer ence Range is dependent on time and content of last meal. Glucose of more than 200 mg/dL in a nonstressed, ambulatory subject supports the diagnosis of Diabetes Mellitus. Glucose Poct Glucometerson 0 12-22-2021 Glucose [Mass/Vol] 113 mg/dL Normal [facility] Comment on above: Result Comment: [place] Glucose Reference Range is dependent on time and content of last meal. Glucose of more than 200 mg/dL in a nonstressed, ambulatory subject supports the diagnosis of Diabetes Mellitus. PERFORMED BY: [address] [address] PATHOLOGIST PIN INSERTER REGULATOR TEOFILO KHAN M.D. Performed By: #### G [...] developed and its performance characteristic determined by [employer] and validated at [facility]. This test has not been FDA [...] for SARS Antigen by SIN PERFORMED BY: [facility] [address] [place] [address] PATHOLOGIST PIN INSERTER REGULATOR TEOFILO KHAN M.D. [facility] Comment on above: Performed By: #### C OVID-19 MAYRA, SOFIANEG #### [facility] [address] COVID-19 SOFIAOrdered By: Bebe Andrews on 12-20-2021 SARS-CoV+SARS-CoV-2 (COVID-19) Ag IA.rapid Ql (Resp) Negative Negative [facility] Comment on above: This is a duplicate Mayra SARS Antigen (SIN) result to be used for statistical tracking purpose only. No Panel InformationOrdered By: Sav Andrews on 12-20-2021 SARS Antigen (LFIA) [facility] Mayra Ag Negativeon 12-21-19 Mayra Ag Negative Negative Normal Negative [facility] Comment on above: Result Comment: This is a duplicate Mayra SARS Antigen (SIN) result to be used for statistical tracking purpose only. PERFORMED BY: [place] [address] PATHOLOGIST PIN INSERTER REGULATOR TEOFILO KHAN M.D. Performed By: #### C OVID-19 MAYRA, SOFIANEG #### [address] [place] ANKLE RT WO CONon 022 [...] severe tricompartmental osteoarthropathy of the knee with eeiw-zo-zpxs articulation of the lateral compartment. SOFT TISSUES: Negative. No visible soft tissue swelling. EFFUSION: None visible. OTHER: Negative. IMPRESSION: Progression of subchondral degenerative cystic changes of the tibial plafond and calcaneus Moderate to severe knee osteoarthritis with zhvl-ct-dudh articulation of the lateral compartment Electronically authenticated by: GERA BLUM Date: 2021-11-14 16:32 Normal [facility] CBC AUTO DIFFon 09-11-2021 BASO # 0.1 103/ul Normal 0.0-0.1 [facility] Comment on above: Performed By: #### C BC ####[facility] [address] [place] [address]Dr. Idania Tai Basophils/100 WBC (Bld) 0.8 % Normal 0.2-2.0 [facility] Comment on above: Performed By: #### C BC ####[facility] [address] [place], [place] [address]Dr. Earnestinegisselle Zaire EO # 0.2 103/ul Normal 0.0-0.7 [facility] Comment on above: Performed By: #### C BC ####[facility] [address] [place], [place] [address]Dr. Idania Zaire Eosinophils/100 WBC (Bld) 2.2 % Normal 0.9-7.0 [facility] Comment on above: Performed By: #### C BC ####[facility] [address] [place], [place] [address]Dr. Idania Tai Erythrocyte distribution width (RBC) [Ratio] 13.1 % Normal 11.0-15.0 [facility] Comment on above: Performed By: #### C BC ####[facility] [address] [place], [place] [address]Dr. Idania Tai Hematocrit (Bld) [Volume fraction] 44.5 % Normal 42.0-54.0 [facility] Comment on above: Performed By: #### C BC ####[facility] Z[address] [place], [place] [address]Dr. Idania Tai Hemoglobin (Bld) [Mass/Vol] 14.9 g/dL Normal 14.0-18.0 [facility] Comment on above: Performed By: #### C BC ####[facility] [address] [place], [place] [address]Dr. Idania aTi IG # 0.13 10e3/ul Critically high 0.00-0.03 [facility] Comment on above: Performed By: #### C BC ####[facility] [address] [place] [address]Dr. Idania Tai IG % 1.5 % Critically high 0.0-0.5 [facility] Comment on above: Performed By: #### C BC ####[facility] [address] [place] [address]Dr. Idania Tai LYMPH # 2.4 103/ul Normal 1.2-3.8 [facility] Comment on above: Performed By: #### C BC ####[facility] [address] [place], [place] [address]Dr. Idania Tai Lymphocytes/100 WBC (Bld) 27.7 % Normal 20.5-60.0 [facility] Comment on above: Performed By: #### C BC ####[facility] [address] [place], [place] [address]Dr. Idania Tai MANUAL DIFF REQ NO Normal [facility] Comment on above: Performed By: #### C BC ####[facility] [address] [place], [place] [address]Dr. Idania Zaire MCH (RBC) [Entitic mass] 28.9 pg Normal 25.9-34.0 [facility] Comment on above: Performed By: #### C BC ####[facility] [address] [place], [place] [address]Dr. Idania Zaire MCHC (RBC) [Mass/Vol] 33.5 g/dL Normal 29.9-35.2 [facility] Comment on above: Performed By: #### C BC ####[facility] [address] [place], [place] [address]DrAlly Tai MCV (RBC) [Entitic vol] 86.4 fL Normal 80.0-94.0 [facility] Comment on above: Performed By: #### C BC ####[facility] [address] [place], [place] [address]DrAlly Tai MONO # 0.6 103/ul Normal 0.3-0.8 [facility] Comment on above: Performed By: #### C BC ####[facility] N[address] [place], [place] [address]Dr. Idania Tai Monocytes/100 WBC (Bld) 6.4 % Normal 1.7-12.0 [facility] Comment on above: Performed By: #### C BC ####[facility] [address] [place] [address]Dr. Idania Tai NEUT # 5.3 103/ul Normal 1.4-6.5 [facility] Comment on above: Performed By: #### C BC ####[facility] [address] [place] [address]Dr. Idania Tai Neutrophils/100 WBC (Bld) 61.4 % Normal 43.0-75.0 [facility] Comment on above: Performed By: #### C BC ####[facility] [address] [place] [address]Dr. Idania Tai Platelet mean volume (Bld) [Entitic vol] 9.7 fL Normal 9.5-13.5 [facility] Comment on above: Performed By: #### C BC ####[facility] [address] [place] [address]Dr. Idania Tai PLT 219 103/ul Normal 150-450 [facility] Comment on above: Performed By: #### C BC ####[facility] [address] [place], [place] [address]Dr. Idania Tai RBC 5.15 106/ul Normal 4.70-6.10 [facility] Comment on above: Performed By: #### C BC ####[facility] [address] [place] [address]Dr. Idania Tai WBC 8.6 103/ul Normal 4.0-11.0 [facility] Comment on above: Performed By: #### C BC ####[facility] [address] [place] [address]Dr. Idania Tai GLYCOHEMOGLOBIN A1Con 2021 ADA RECOMMENDATION ADA THERAPEUTIC TARGET 6.0 - 7.0 ACTION SUGGESTED > 7.0 Normal [facility] Comment on above: Performed By: #### A 1C ####[facility] [address] [place], [place] [address]Dr. Idania Tai Glucose [Mass/Vol] 128 mg/dL Normal [facility] Comment on above: Performed By: #### A 1C ####[facility] [address] [place], [place] [address]HdDr. Idania Tai HbA1c (Bld) [Mass fraction] 6.1 % Critically high <=6.0 [facility] Comment on above: Performed By: #### A 1C ####[facility] [address] [place] [id number]. Idania Tai LIPID PROFILEon 09-11-2021 CHOL-HDL RATIO NORM SEE BELOW Normal [facility] Comment on above: Result Comment: 3.3 - 4.4 LOW RISK 4.4 - 7.1 AVERAGE RISK 7.1 - 11.0 MODERATE RISK >11.0 HIGH RISK Performed By: #### L IPID, CMP #### [facility] [address] [address] [address] Idania Tai Cholesterol [Mass/Vol] 175 mg/dL Normal <=200 [facility] Comment on above: Performed By: #### L IPID, CMP #### [facility] [address] [address] [address] Idania Tai Cholesterol in HDL [Mass/Vol] 54 mg/dL Normal 40-60 [facility] Comment on above: Performed By: #### L IPID, CMP #### [facility] [address] [address] [address] Idania Tai Cholesterol in LDL [Mass/Vol] 87.2 mg/dL Normal [facility] Comment on above: Performed By: #### L IPID, CMP #### [facility] [address] [address] [address] Idania Tai Cholesterol.total/Choles terol in HDL [Mass ratio] 3.2 {ratio} Normal [facility] Comment on above: Performed By: #### L IPID, CMP #### [facility] [address] [address] [address] Idania Tai HDL NORMAL > or = 60 mg/dl - LOW CARDIOVASCULAR RISK <40 mg/dl - HIGH CARDIOVASCULAR RISK Normal [facility] Comment on above: Performed By: #### L IPID, CMP #### [facility] [address] [address] [address] Idania Tai LDL CALC NORMAL SEE BELOW Normal [facility] Comment on above: Result Comment: <100 mg/dl OPTIMAL 100 - 129 mg/dl NEAR OR ABOVE OPTIMAL 130 - 159 mg/dl BORDERLINE HIGH 160 - 189 mg/dl HIGH >190 mg/dl VERY HIGH Performed By: #### L IPID, CMP #### [facility] [address] [address] [address] Idania Tai Triglyceride [Mass/Vol] 169 mg/dL Critically high <=150 [facility] Comment on above: Performed By: #### L IPID, CMP #### [facility] [address] [address] [address] Idania Tai VLDL CALC 33.8 mg/dL Normal [facility] Comment on above: Performed By: #### L IPID, CMP #### [facility] [address] [address] [address] Idania Tai MICROALBUMIN, RAND URon 08-25 mALB 1.9 mg/L Normal <=30.0 [facility] Comment on above: Performed By: #### M ALBR #### [facility] [address] [address] [address] Idania Tai PROF 14(COMP METB)on 022 Albumin [Mass/Vol] 3.7 g/dL Normal 3.4-5.0 [facility] Comment on above: Performed By: #### L IPID, CMP #### [facility] [address] [address] [address] Idania Tai Albumin/Globulin [Mass ratio] 0.9 {ratio} Normal [facility] Comment on above: Performed By: #### L IPID, CMP #### [facility] [address] [address] [address] Idania Tai ALP [Catalytic activity/Vol] 73 U/L Normal 46-116 [facility] Comment on above: Performed By: #### L IPID, CMP #### [facility] [address] [address] [address] Idania Tai ALT [Catalytic activity/Vol] 68 U/L Critically high 16-63 [facility] Comment on above: Performed By: #### L IPID, CMP #### [facility] [address] [address] [address] Idania Tai Anion gap [Moles/Vol] 10.2 mmol/L Normal [facility] Comment on above: Performed By: #### L IPID, CMP #### [facility] [address] [address] [address] Idania Tai AST [Catalytic activity/Vol] 30 U/L Normal 15-37 [facility] Comment on above: Performed By: #### L IPID, CMP #### [facility] [address] [place] [address] Dr. Idania Tai Bilirubin [Mass/Vol] 1.0 mg/dL Normal 0.2-1.3 [facility] Comment on above: Performed By: #### L IPID, CMP #### [facility] [address] [address] [address] Idania Tai Calcium [Mass/Vol] 8.5 mg/dL Normal 8.5-10.1 [facility] Comment on above: Performed By: #### L IPID, CMP #### [facility] [address] [address] [address] Idania Tai Chloride [Moles/Vol] 101 mmol/L Normal 98-107 [facility] Comment on above: Performed By: #### L IPID, CMP #### [facility] [address] [address] [address] Idania Tai CO2 [Moles/Vol] 31.6 mmol/L Critically high 22.0-30.0 [facility] Comment on above: Performed By: #### L IPID, CMP #### [facility] [address] [address] [address] Idania Tai Creatinine [Mass/Vol] 0.67 mg/dL Normal 0.66-1.25 [facility] Comment on above: Performed By: #### L IPID, CMP #### [facility] [address] [address] [address] Idania Tai EGFR-AF KOSOVAN >60 Normal >=60 [facility] Comment on above: Performed By: #### L IPID, CMP #### [facility] [address] [address] [address] Idania Tai EGFR-NON AF KOSOVAN >60 Normal >=60 [facility] Comment on above: Performed By: #### L IPID, CMP #### [facility] [address] [address] [address] Idania Tai Globulin (S) [Mass/Vol] 4.0 g/dL Normal [facility] Comment on above: Performed By: #### L IPID, CMP #### [facility] [address] [address] [address] Idanai Tai Glucose [Mass/Vol] 114 mg/dL Critically high 74-106 [facility] Comment on above: Performed By: #### L IPID, CMP #### [facility] [address] [address] [address] Idnaia Tai Potassium [Moles/Vol] 4.8 mmol/L Normal 3.4-5.0 [facility] Comment on above: Performed By: #### L IPID, CMP #### [facility] [address] [address] [address] Idania Tai Protein [Mass/Vol] 7.7 g/dL Normal 6.1-8.2 [facility] Comment on above: Performed By: #### L IPID, CMP #### [facility] [address] [address] [address] Idania Tai Sodium [Moles/Vol] 138 mmol/L Normal 137-145 [facility] Comment on above: Performed By: #### L IPID, CMP #### [facility] [address] [address] [address] Idania Tai Urea nitrogen [Mass/Vol] 12.0 mg/dL Normal 7.0-18.0 [facility] Comment on above: Performed By: #### L IPID, CMP #### [facility] [address] [address] [address] Idania Tai Urea nitrogen/Creatinine [Mass ratio] 17.9 mg/mg Normal [facility] Comment on above: Performed By: #### L IPID, CMP #### [facility] [id number] Idania Tai Vital Signs Date Time Vital Sign Value Performing Clinician Faci lity 09-10-2022 13:15-0400 Diastolic blood pressure 64 mm[Hg] MD Shaikh Baker Work Phone: [facility] 09-10-2022 13:15-0400 Heart rate 54 /min MD Shaikh Baker Work Phone: [facility] 09-10-2022 13:15-0400 Respiratory rate 16 /min MD Shaikh Baker Work Phone: [facility] 09-10-2022 13:15-0400 SaO2% (BldA) [Mass fraction] 97 % MD Shaikh Baker Work Phone: [facility] 09-10-2022 13:15-0400 Systolic blood pressure 100 mm[Hg] MD Shaikh Baker Work Phone: [facility] 09-10-2022 12:25-0400 Body temperature 97.5 [degF] MD Shaikh Baker Work Phone: [facility] 09-10-2022 11:55-0400 Inhaled oxygen flow rate 8 L/min MD Shaikh Baker Work Phone: [facility] 09-10-2022 10:54-0400 Body height 165.1 cm MD Shaikh Baker Work Phone: [facility] 09-10-2022 10:54-0400 Body mass index (BMI) [Ratio] 38.6 kg/m2 MD Shaikh Baker Work Phone: [facility] 09-10-2022 10:54-0400 Body weight 105.4 kg MD Shaikh Baker Work Phone: [facility] 12-22-2021 10:00-0400 Diastolic blood pressure 87 mm[Hg] MD Sav Andrews Work Phone: [facility] 12-22-2021 10:00-0400 Heart rate 54 /min MD Sav Andrews Work Phone: [facility] 12-22-2021 10:00-0400 Respiratory rate 18 /min MD Sav Andrews Work Phone: [facility] 12-22-2021 10:00-0400 SaO2% (BldA) [Mass fraction] 100 % MD Sav Andrews Work Phone: [facility] 12-22-2021 10:00-0400 Systolic blood pressure 139 mm[Hg] MD Sav Andrews Work Phone: [facility] 12-22-2021 07:37-0400 Body height 170.18 cm MD Sav Andrews Work Phone: [facility] 12-22-2021 07:37-0400 Body temperature 97.9 [degF] MD Sav Andrews Work Phone: [facility] 12-22-2021 07:37-0400 Body weight 81.64 kg MD Sav Andrews Work Phone: [facility] Encounters Encounter Date Encounter Type Care Provider Facility Start: 09-10-2022 End: [facility] Start: 09-10-2022 End: 09-10-2022 Admission to same day surgery center MD Shaikh Baker Work Phone: [facility] [place] Start: 09-10-2022 End: 09-10-2022 ambulatory MD Shaikh Baker Work Phone: [facility] Work Phone: Start: 08-30-2022 End: 08-30-2022 ambulatory Silver Briceño Facility:[facility] Start: 08-30-2022 End: 08-30-2022 ambulatory MD Shaikh Baker Work Phone: [facility] Work Phone: Start: 08-30-2022 End: 08-30-2022 Patient encounter procedure MD Shaikh Baker Work Phone: [facility] Work Phone: Start: 07-07-2022 End: 07-08-2022 ambulatory SHAIKH Adan BAKER Facility:[facility] Start: 03-13-2022 End: 03-14-2022 ambulatory SHAIKH Adan BAKER Facility:[facility] Start: 12-22-2021 End: 12-22-2021 ambulatory Sav Andrews Facility:[facility] Start: 12-22-2021 End: 12-22-2021 Admission to same day surgery center MD Sav Andrews Work Phone: [facility] Start: 12-20-2021 End: 12-20-2021 ambulatory Sav Andrews Facility:[facility] Start: 12-20-2021 End: 12-20-2021 Patient encounter procedure MD Sav Andrews Work Phone: [facility] Start: 11-14-2021 End: 11-15-2021 ambulatory REY [...] Activity Detail Author Start: 09-10-2022 End: 09-10-2022 [facility] Start: 12-22-2021 [facility] Work Phone: Patient Education Hemorrhoids [facility] Work Phone: Immunizations Immunization Date Immunization Notes Care Provider Fa [facility] 10-10-2020 COVID-19 mRNA Comirnatjoey (Pfizer) MD Sav Andrews Work Phone: [facility] 09-19-2020 COVID-19 mRNA Comirmichelle (Pfizer) MD Sav Andrews Work Phone: [facility] Payers Date Payer Category Payer Self-pay [id number] 1965 Unknown [id number] 2.16.84 [id number] 1965 Unknown [id number] 2.16.84 [id number] 1966 Unknown [id number] 2.16.84 [id number]. 1966 Unknown [id number] .16.84 [id number] 1966 Unknown [id number] 2.16.84 [id number]. 1966 Unknown [id number] 2.16.84 [id number] 1966 Unknown [id number] 2.16.84 [id number] 1959 Unknown [id number] Unknown [id number] 2.16.8 [id number] Unknown [id number] 2.16.8 [id number] Unknown [id number] 2.16.8 [id number] Unknown [id number] 2.16.8 [id number] Social History Date Type Detail Facility Start: 12-22-2021 End: 09-10-2022 Tobacco smoking status NHIS Ex-smoker (finding) [facility] Start: 1965 Sex Assigned At Male F [facility] Goals Date Patient Goal Desired Activity /State Procedure note 12-22-2021 Note Date & Type Note Facility 12-22-2021 Procedure note [facility] Clinical Note 10-26-2021 Note Date [...] authenticated by: MICHELLE IBRAHIM Date: 2021-10-26 08:54 [facility] Clinical Note 09-05-2021 Note Date & [...] authenticated by: GERA BLUM Date: 2021-09-05 15:22 [facility] Evaluation note Note Date & Type Note Facility Evaluation note No assessment information availa ble [facility] Work Phone: History and physical note Note Date & Type Note Facility History and physical note Note Date/Time December 22, 2021 9:32 am [facility] [address] [place] [address] Gastroenterology H&P Signed Patient: Dante Dietz MR #: [id number] : 1965 Acct:[id number] Age/Sex: 56 / M Adm Date: 2 Loc: Room: Type: [facility] Attending Dr: Sav Andrews MD Copies to: [...] <Electronically signed by Sav Andrews MD> 12/22/21931 [facility] Work Phone: Chief Complaint and Reason [...] DATE CREATED AUTHOR 07/14/2022 [facility] DATE CREATED AUTHOR 'S ORGANIZ ATION 10/02/2022 [facility] Goals (unrecognized section and content) Goals may [...] BE BASED ON THE PRIMARY CLINICAL RECORDS. [facility]. provides no warranty or guarantee of the accuracy or completeness of information in this document.
[2023-08-08 10:32] LABS: Basophils Absolute Auto 0.1 10^3/uL (0.0-0.1); Basophils Percent Auto 1.1 % (0.2-2.0); Eosinophils Absolute Auto 0.3 10^3/uL (0.0-0.7); Eosinophils Percent Auto 4.7 % (0.9-7.0); Hematocrit 37.5 % (42.0-54.0); Hemoglobin 12.2 g/dL (14.0-18.0); Immature Granulocytes Abs Auto 0.08 10^3/uL (0.00-0.03); Immature Granulocytes Pct Auto 1.5 % (0.0-0.5); Lymphocytes Absolute Auto 1.6 10^3/uL (1.2-3.8); Lymphocytes Percent Auto 29.8 % (20.5-60.0); Mean Corpuscular HGB Conc 32.5 g/dL (29.9-35.2); Mean Corpuscular Hemoglobin 27.4 pg (25.9-34.0); Mean Corpuscular Volume 84.3 fL (80.0-94.0); Mean Platelet Volume 10.8 fL (9.5-13.5); Monocytes Absolute Auto 0.4 10^3/uL (0.3-0.8); Monocytes Percent Auto 7.3 % (1.7-12.0); Neutrophils Absolute Auto 3.1 10^3/uL (1.4-6.5); Neutrophils Percent Auto 55.6 % (43.0-75.0); Platelet Count 155 10^3/uL (150-450); Red Blood Count 4.45 10^6/uL (4.70-6.10); Red Cell Distribution Width 13.4 % (11.0-15.0); White Blood Count 5.5 10^3/uL (4.0-11.0)
[2023-08-08 10:57] LABS: Creatinine Urine Random 110.67 mg/dL (20.00-300.00); Microalbum Creatinine Ratio Ur 79.5 mg/g (0.0-29.9); Microalbumin Urine Random 8.8 mg/dL (<=30.0)
[2023-08-08 11:00] LABS: Estimated Average Glucose 275 mg/dL; Glycohemoglobin A1C 11.2 % (4.5-6.2)
[2023-08-08 11:56] LABS: Alanine Aminotransferase 121 U/L (16-63); Albumin Globulin Ratio 0.8; Albumin Level 3.6 g/dL (3.4-5.0); Alkaline Phosphatase 99 U/L (46-116); Anion Gap 12.2; Aspartate Amino Transferase 93 U/L (15-37); BUN Creatinine Ratio 17.6; Bilirubin Total 0.8 mg/dL (0.2-1.0); Calcium 9.2 mg/dL (8.5-10.1); Carbon Dioxide 30.4 mmol/L (21.0-32.0); Chloride 99 mmol/L (98-107); Chol HDL Ratio 4.2; Cholesterol 163 mg/dL (<=200); Estimated GFR (African America 59 (>=60); Estimated GFR (Non-African Ame 49 (>=60); Globulin 4.5 g/dL; Glucose 276 mg/dL (74-106); HDL Cholesterol 39 mg/dL (40-60); Potassium 4.6 mmol/L (3.5-5.1); Sodium 137 mmol/L (136-145); Total Protein 8.1 g/dL (6.4-8.2); Triglycerides 186 mg/dL (<=150); VLDL CHOLESTEROL 37.2 mg/dL
== END 2023-08-08 10:03 | disposition home or self-care (01) ==
LOC: LAB 10:03
PROVIDERS: PCP Internal Medicine; Visit Provider Internal Medicine
DX: E11.42 Type 2 diabetes mellitus with diabetic polyneuropathy (principal); Z79.4 Long term (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; E78.49 Other hyperlipidemia
CPT/HCPCS: 36415; 80053; 80061; 82043; 82570; 83036; 85025

== ENCOUNTER 2023-08-16 15:03 | Outpatient (OUT) | payer BC, SELFPAY ==
--- OUTSIDE RECORDS SUMMARY | 2023-08-16 15:19 | XMS_ITS | CCD ---
Author Organization [facility] Care Team Providers Care Supervisor Public Health Nursing Name Role Phone MD Sav Andrews Attending Provider MD Deana Baker Primary Care Provider DR ASA AL Attending Unavailable ACACIA JENKINS Primary Care Unavailable MIKAELA, DR BRAY Admitting Unavailable LIZETH MARTIN Attending Unavailable KULWANT, DR GERA Kwan Consulting Unavailable LIZETH MARTIN Admitting Unavailable GREGORY [facility] Primary Care Unavailable MARIOLIZETH Consulting Unavailable FAWWAD, LEBLANC H Admitting Unavailable FAWWAD, LEBLANC H Primary Care Unavailable FAWWAD, LEBLANC H Consulting Unavailable FAWWAD, LEBLANC H Attending Unavailable REY ALCARAZ Attending Unavailable REY ALCARAZ Admitting Unavailable FAWWAD, LEBLANC H Primary Care Unavailable ALEXANDRIA, DR MICHELLE Valles Consulting Unavailable REY ALCARAZ Consulting Unavailable REY ALCARAZ Admitting Unavailable KULWANT, DR GERA Kwan Consulting Unavailable REY ALCARAZ Attending Unavailable FAWWAD, LEBLANC H Primary Care Unavailable HIGHLANDERREY Consulting Unavailable FAWWAD, LEBLANC H Admitting Unavailable FAWWAD, LEBLANC H Primary Care Unavailable FAWWAD, LEBLANC H Consulting Unavailable FAWWAD, LEBLANC H Attending Unavailable FAWWAD, LEBLANC H Primary Care Unavailable FAWWAD, LEBLANC H Consulting Unavailable FAWWAD, LEBLANC H Attending Unavailable SAMUEL, LEBLANC H Admitting Unavailable MD Deana Baker Primary Care Provider DO Silver Briceño Attending Provider [phone] Sav Andrews Attending Unavailable Sav Andrews Admitting Unavailable Samuel Leblanc Primary Care Unavailable Silver Briceño Attending Unavailable Silver Briceño Admitting Unavailable Samuel [facility] Primary Care Unavailable Sav Andrews Admitting Unavailable Sav Andrews Attending Unavailable Silver Briceño Attending Unavailable Silver Briceño Admitting [facility] Primary Care Unavailable SHAIK BAKERH Attending Unavailable Medications Current Medications Medication Drug Class(es) Dates Sig (Normalized) Sig (Original) [id number] 200 actuat albuterol 0.09 mg/actuat metered dose [...] MG PO Daily December 22, 2021 12:00am [place] 9-Wpm-Shv-Fish Oil (Fish Oil) 1,200 (144-216) mg Capsule (4 sources) Start: 12-22-2021 take 1 capsule by mouth twice daily [place] 4-Ejx-Vtu-Fish Oil (Fish Oil) 1,200 (144-216) mg Capsule [...] Briceño on 09-10-2022 Glucose [Mass/Vol] 137 mg/dL [facility] Comment on above: Random Glucose Refer ence Range is dependent on time and content of last meal. Glucose of more than 200 mg/dL in a nonstressed, ambulatory subject supports the diagnosis of Diabetes Mellitus. Glucose [Mass/Vol] 131 mg/dL [facility] Comment on above: Random Glucose Refer ence Range is dependent on time and content of last meal. Glucose of more than 200 mg/dL in a nonstressed, ambulatory subject supports the diagnosis of Diabetes Mellitus. Glucose Poct Glucometerson 0 09-10-2022 Glucose [Mass/Vol] 137 mg/dL Normal [facility] Comment on above: Result Comment: [place] om Glucose Reference Range is dependent on time and content of last meal. Glucose of more than 200 mg/dL in a nonstressed, ambulatory subject supports the diagnosis of Diabetes Mellitus. PERFORMED BY: [place] [address] PATHOLOGIST BINDERY MACHINE TENDER TEOFILO KHAN M.D. Performed By: #### G LULS #### Point of Care testing , Glucose [Mass/Vol] 131 mg/dL Normal [facility] Comment on above: Result Comment: [place] om Glucose Reference Range is dependent on time and content of last meal. Glucose of more than 200 mg/dL in a nonstressed, ambulatory subject supports the diagnosis of Diabetes Mellitus. PERFORMED BY: [place] [address] PATHOLOGIST BINDERY MACHINE TENDER TEOFILO KHAN M.D. Performed By: #### G LULS #### Point of Care testing , Basic Metabolic Panelon 04-0 Anion gap [Moles/Vol] 13.5 mmol/L Normal 6.0-15.0 [facility] Comment on above: Performed By: #### C BC, BMP #### [address] Calcium [Mass/Vol] 9.4 mg/dL Normal 8.6-10.3 [facility] Comment on above: Result Comment: PERF ORMED BY: [place] [address] PATHOLOGIST BINDERY MACHINE TENDER TEOFILO KHAN M.D. Performed By: #### C BC, BMP #### [facility] [address] [place] [address] [place] Chloride [Moles/Vol] 102 mmol/L Normal 98-107 [facility] Comment on above: Performed By: #### C BC, BMP #### [facility] [address] [place] [address] [place] CO2 [Moles/Vol] 28.5 mmol/L Normal 21.0-31.0 [facility] Comment on above: Performed By: #### C BC, BMP #### [place] [address] [place] Creatinine [Mass/Vol] 0.99 mg/dL Normal 0.70-1.30 [facility] Comment on above: Performed By: #### C BC, BMP #### [facility] [address] [place] [address] [place] GFR/1.73 sq M.predicted MDRD (S/P/Bld) [Vol rate/Area] mL/min/{1.73_m2} Normal [facility] Comment on above: Performed By: #### C BC, BMP #### [place] [address] [place] Glucose [Mass/Vol] 114 mg/dL High 70-100 [facility] Comment on above: Result Comment: [place] Glucose Reference Range is dependent on time and content of last meal. Glucose of more than 200 mg/dL in a nonstressed, ambulatory subject supports the diagnosis of Diabetes Mellitus. ADA recommended reference range Performed By: #### C BC, BMP #### [place] [address] [place] Potassium [Moles/Vol] 4.0 mmol/L Normal 3.5-5.1 [facility] Comment on above: Performed By: #### C BC, BMP #### [facility] [address] Sodium [Moles/Vol] 140 mmol/L Normal 136-145 [facility] Comment on above: Performed By: #### C BC, BMP #### [facility] [address] Urea nitrogen [Mass/Vol] 21 mg/dL Normal 7-25 [facility] Comment on above: Performed By: #### C SAI, BMP #### [facility] [address] Basophils Auto (Bld) [#/Vol] Ordered By: Silver Briceño on 08-30-2022 Basophils (Bld) [#/Vol] 0.0 10*3/uL 0.0-0.2 [facility] Basophils/100 WBC Auto (Bld) Ordered By: Silver Briceño on 08-30-2022 Basophils/100 WBC (Bld) 0.7 % . F [facility] Calcium [Mass/volume] in Ser um or PlasmaOrdered By: Silver Briceño on 08-30-2022 Calcium [Mass/Vol] 9.4 mg/dL 8.6-10.3 [facility] Carbon dioxide, total [Moles /volume] in Serum or PlasmaOrdered By: Silver Briceño on 08-30-2022 CO2 [Moles/Vol] 28.5 mmol/L 21.0-31.0 [facility] Chloride [Moles/volume] in S gela or PlasmaOrdered By: Silver Briceño on 08-30-2022 Chloride [Moles/Vol] 102 mmol/L 98-107 [facility] Complete Blood Count Auto Di ffon 08-30-2022 Basophils (Bld) [#/Vol] 0.0 10*3/uL Normal 0.0-0.2 [facility] Comment on above: Result Comment: PERF ORMED BY: [facility] [address] [place] [address] PATHOLOGIST BINDERY MACHINE TENDER TEOFILO KHAN M.D. Performed By: #### C SAI, BMP #### [facility] [address] [place] [address] [place] Basophils/100 WBC (Bld) 0.7 % Normal . F [facility] Comment on above: Performed By: #### C BC, BMP #### [facility] [address] Eosinophils (Bld) [#/Vol] 0.3 10*3/uL Normal 0.0-0.45 [facility] Comment on above: Performed By: #### C BC, BMP #### [facility] [address] Eosinophils/100 WBC (Bld) 6.1 % Normal . [facility] Comment on above: Performed By: #### C BC, BMP #### [address] Erythrocyte distribution width (RBC) [Ratio] 14.5 % Normal 12.0-14.8 [facility] Comment on above: Performed By: #### C BC, BMP #### [address] Hematocrit (Bld) [Volume fraction] 36.5 % Low 38.8-50.0 [facility] Comment on above: Performed By: #### C BC, BMP #### [address] Hemoglobin (Bld) [Mass/Vol] 12.5 g/dL Low 13.0-17.0 [facility] Comment on above: Performed By: #### C BC, BMP #### [place] [address] [place] Lymphocytes (Bld) [#/Vol] 1.8 10*3/uL Normal 1.00-4.8 [facility] Comment on above: Performed By: #### C BC, BMP #### [address] Lymphocytes/100 WBC (Bld) 35.5 % Normal . [facility] Comment on above: Performed By: #### C BC, BMP #### [address] MCH (RBC) [Entitic mass] 29.2 pg Normal 27.5-35.2 [facility] Comment on above: Performed By: #### C BC, BMP #### [address] MCV (RBC) [Entitic vol] 85.1 fL Normal 83.5-[address] [facility] Comment on above: Performed By: #### C BC, BMP #### [address] Mean Corpuscular HGB Conc 34.3 g/dL Normal 32.5-35.6 [facility] Comment on above: Performed By: #### C BC, BMP #### [address] Monocytes (Bld) [#/Vol] 0.4 10*3/uL Normal 0.0-0.8 [facility] Comment on above: Performed By: #### C BC, BMP #### [address] Monocytes/100 WBC (Bld) 8.2 % Normal . F [facility] Comment on above: Performed By: #### C BC, BMP #### [address] Neutrophils (Bld) [#/Vol] 2.5 10*3/uL Normal 1.8-7.7 [facility] Comment on above: Performed By: #### C BC, BMP #### [address] Neutrophils/100 WBC (Bld) 49.5 % Normal . [facility] Comment on above: Performed By: #### C BC, BMP #### [address] NRBC% 0.2 /100{WBC} Normal 0-0.5 [facility] Comment on above: Performed By: #### C BC, BMP #### [address] Platelet mean volume (Bld) [Entitic vol] 8.8 fL Normal 6.6-10.1 [facility] Comment on above: Performed By: #### C SAI, BMP #### [facility] [address] Platelets (Bld) [#/Vol] 155 10*3/uL Normal 150-450 [facility] Comment on above: Performed By: #### C SAI, BMP #### [facility] [address] RBC (Bld) [#/Vol] 4.29 10*6/uL Normal 3.90-5.60 [facility] Comment on above: Performed By: #### C SAI, BMP #### [facility] [address] WBC (Bld) [#/Vol] 5.1 10*3/uL Normal 4.1-10.5 [facility] Comment on above: Performed By: #### C SAI, BMP #### [address] Creatinine [Mass/volume] in Serum or PlasmaOrdered By: Silver Briceño on 08-30-2022 Creatinine [Mass/Vol] 0.99 mg/dL 0.70-1.30 [facility] ECG 12 lead ECGon 08-30-2022 ECG 12 lead ECG [facility] [place] [address] [place] [address] Electrocardiograph Report Signed Patient: Lavern Escobedo MR#: [id number] : 1965 Acct:[id number] Age/Sex: 57 / M ADM Date: 08/30/22 Loc: Room: [facility]ending Dr: Silver Briceño DO Ordering Provider: [...] previous ECGs available Confirmed by KATE GUPTA [facility] ([id number] on 08/31/2022 12:23:25 PM Referred By: FREDDY Electronically Signed By:LEANNA LOVE MD [facility] Transcribed By: ESTELLE Signed By Leo Love MD 08/31/22 1223 Normal [facility] Eosinophils Auto (Bld) [#/Vo l]Ordered By: Silver Briceño on 08-30-2022 Eosinophils (Bld) [#/Vol] 0.3 10*3/uL 0.0-0.45 [facility] Eosinophils/100 WBC Auto (Bl d)Ordered By: Silver Briceño on 08-30-2022 Eosinophils/100 WBC (Bld) 6.1 % . [facility] Erythrocyte distribution wid th Auto (RBC) [Ratio]Ordered By: Silver Briceño on 08-30-2022 Erythrocyte distribution width (RBC) [Ratio] 14.5 % 12.0-14.8 [facility] Glucose [Mass/volume] in Ser um or PlasmaOrdered By: Silver Briceño on 08-30-2022 Glucose [Mass/Vol] 114 mg/dL 70-100 [facility] Comment on above: ADA recommended refe rence rangeRandom Glucose Reference Range is dependent on time and content of last meal. Glucose of more than 200 mg/dL in a nonstressed, ambulatory subject supports the diagnosis of Diabetes Mellitus. Hematocrit Auto (Bld) [Volum e fraction]Ordered By: Silver Briceño on 08-30-2022 Hematocrit (Bld) [Volume fraction] 36.5 % 38.8-50.0 [facility] Hemoglobin [Mass/volume] in BloodOrdered By: Silver Briceño on 08-30-2022 Hemoglobin (Bld) [Mass/Vol] 12.5 g/dL 13.0-17.0 [facility] Leukocytes [#/volume] correc shashi for nucleated erythrocytes in Blood by Automated counOrdered By: Silver Briceño on 08-30-2022 WBC corrected for nucl RBC Auto (Bld) [#/Vol] 5.1 10*3/uL 4.1-10.5 [facility] Lymphocytes Auto (Bld) [#/Vo l]Ordered By: Silver Briceño on 08-30-2022 Lymphocytes (Bld) [#/Vol] 1.8 10*3/uL 1.00-4.8 [facility] Lymphocytes/100 WBC Auto (Bl d)Ordered By: Silver Briceño on 08-30-2022 Lymphocytes/100 WBC (Bld) 35.5 % . [facility] MCH Auto (RBC) [Entitic mass ]Ordered By: Silver Briceño on 08-30-2022 MCH (RBC) [Entitic mass] 29.2 pg 27.5-35.2 [facility] MCHC Auto (RBC) [Mass/Vol]Or dered By: Silver Briceño on 08-30-2022 MCHC (RBC) [Mass/Vol] 34.3 g/dL 32.5-35.6 [facility] MCV Auto (RBC) [Entitic vol] Ordered By: Silver Briceño on 08-30-2022 MCV (RBC) [Entitic vol] 85.1 fL 83.5-[address] [facility] Monocytes Auto (Bld) [#/Vol] Ordered By: Silver Briceño on 08-30-2022 Monocytes (Bld) [#/Vol] 0.4 10*3/uL 0.0-0.8 [facility] Monocytes/100 WBC Auto (Bld) Ordered By: Silver Briceño on 08-30-2022 Monocytes/100 WBC (Bld) 8.2 % . F [facility] Neutrophils Auto (Bld) [#/Vo l]Ordered By: Silver Briceño on 08-30-2022 Neutrophils (Bld) [#/Vol] 2.5 10*3/uL 1.8-7.7 [facility] Neutrophils/100 WBC Auto (Bl d)Ordered By: Silver Briceño on 08-30-2022 Neutrophils/100 WBC (Bld) 49.5 % . [facility] No Panel InformationOrdered By: Silver Briceño on 08-30-2022 Estimated GFR (CKD-EPI) > 60.0 mL/Min [facility] Pharmacy Creatinine Clearance (Chem N/A [facility] Nucleated erythrocytes [Pres ence] in Blood by Automated countOrdered By: Silver Briceño on 08-30-2022 Nucleated RBC Auto Ql (Bld) 0.2 /100{WBC} 0-0.5 [facility] Platelet mean volume Auto (B ld) [Entitic vol]Ordered By: Silver Briceño on 08-30-2022 Platelet mean volume (Bld) [Entitic vol] 8.8 fL 6.6-10.1 [facility] Platelets Auto (Bld) [#/Vol] Ordered By: Silver Briceño on 08-30-2022 Platelets (Bld) [#/Vol] 155 10*3/uL 150-450 [facility] Potassium [Moles/volume] in Serum or PlasmaOrdered By: Silver Briceño on 08-30-2022 Potassium [Moles/Vol] 4.0 mmol/L 3.5-5.1 [facility] RBC Auto (Bld) [#/Vol]Ordere d By: Silver Briceño on 08-30-2022 RBC (Bld) [#/Vol] 4.29 10*6/uL 3.90-5.60 [facility] Serum or plasma anion gap de terminationOrdered By: Silver Briceño on 08-30-2022 Anion gap [Moles/Vol] 13.5 mmol/L 6.0-15.0 [facility] Sodium [Moles/volume] in Ser um or PlasmaOrdered By: Silver Briceño on 08-30-2022 Sodium [Moles/Vol] 140 mmol/L 136-145 [facility] Urea nitrogen [Mass/volume] in Serum or PlasmaOrdered By: Silver Briceño on 08-30-2022 Urea nitrogen [Mass/Vol] 21 mg/dL 7-25 [facility] WBC Auto (Bld) [#/Vol]Ordere d By: Silver Briceño on 08-30-2022 WBC (Bld) [#/Vol] 5.1 10*3/uL 4.1-10.5 [facility] GLYCOHEMOGLOBIN A1Con 2022 ADA RECOMMENDATION SEE BELOW Normal [facility] Comment on above: Result Comment: ADA RECOMMENDED LIMIT 4.0 - 6.0 ADA THERAPEUTIC TARGET < 7.0 ACTION SUGGESTED > 7.0 Performed By: #### A 1C #### [facility] [address] [place] [address] Dr. Idania Tai Glucose [Mass/Vol] 243 mg/dL Normal [facility] Comment on above: Performed By: #### A 1C #### [facility] [address] [place] [address] Dr. Idania Tai HbA1c (Bld) [Mass fraction] 10.1 % Critically high 4.5-6.2 [facility] Comment on above: Performed By: #### A 1C #### [facility] [address] [place] [address] Dr. Idania Tai LIPID PROFILEon 07-07-2022 CHOL-HDL RATIO NORM SEE BELOW Normal [facility] Comment on above: Result Comment: 3.3 - 4.4 LOW RISK 4.4 - 7.1 AVERAGE RISK 7.1 - 11.0 MODERATE RISK >11.0 HIGH RISK Performed By: #### B MP, LIPID #### [facility] [address] [place] [address] Dr. Idania Tai Cholesterol [Mass/Vol] 172 mg/dL Normal <=200 Th [facility] Comment on above: Performed By: #### B MP, LIPID #### [facility] [address] [place] [address] Dr. Idania Tai Cholesterol in HDL [Mass/Vol] 48 mg/dL Normal 40-60 [facility] Comment on above: Performed By: #### B MP, LIPID #### [facility] [address] [place] [address] Dr. Idania Tai Cholesterol in LDL [Mass/Vol] 95.6 mg/dL Normal [facility] Comment on above: Performed By: #### B MP, LIPID #### [facility] [address] [place] [address] Dr. Idania Tai Cholesterol.total/Choles terol in HDL [Mass ratio] 3.6 {ratio} Normal [facility] Comment on above: Performed By: #### B MP, LIPID #### [facility] [address] [address] [address] Idania Tai HDL NORMAL > or = 60 mg/dl - LOW CARDIOVASCULAR RISK <40 mg/dl - HIGH CARDIOVASCULAR RISK Normal [facility] Comment on above: Performed By: #### B MP, LIPID #### [facility] [address] [place] [address] Dr. Idania Tai LDL CALC NORMAL SEE BELOW Normal [facility] Comment on above: Result Comment: <100 mg/dl OPTIMAL 100 - 129 mg/dl NEAR OR ABOVE OPTIMAL 130 - 159 mg/dl BORDERLINE HIGH 160 - 189 mg/dl HIGH >190 mg/dl VERY HIGH Performed By: #### B MP, LIPID #### [facility] [address] [place] [address] Dr. Idania Tai Triglyceride [Mass/Vol] 142 mg/dL Normal <=150 [facility] Comment on above: Performed By: #### B MP, LIPID #### [facility] [address] [place] [address] Dr. Idania Tai VLDL CALC 28.4 mg/dL Normal [facility] Comment on above: Performed By: #### B MP, LIPID #### [facility] [address] [place] [address] Dr. Idania Tai PROF CHEM 8 (BAS METB)on Anion gap [Moles/Vol] 11.0 mmol/L Normal [facility] Comment on above: Performed By: #### B MP, LIPID #### [facility] [address] [place] [address] Dr. Idania Tai Calcium [Mass/Vol] 9.1 mg/dL Normal 8.5-10.1 [facility] Comment on above: Performed By: #### B MP, LIPID #### [facility] [address] [place] [address] Dr. Idania Tai Chloride [Moles/Vol] 100 mmol/L Normal 98-107 [facility] Comment on above: Performed By: #### B MP, LIPID #### [facility] [address] [place] [address] Dr. Idania Tai CO2 [Moles/Vol] 32.6 mmol/L Critically high 21.0-32.0 [facility] Comment on above: Performed By: #### B MP, LIPID #### [facility] [address] [place] [address] Dr. Idania Tai Creatinine [Mass/Vol] 0.81 mg/dL Normal 0.70-1.30 [facility] Comment on above: Performed By: #### B MP, LIPID #### [facility] [address] [place] [address] Dr. Idania Tai EGFR-AF BURMESE >60 Normal >=60 [facility] Comment on above: Performed By: #### B MP, LIPID #### [facility] [address] [place] [address] Dr. Idania Tai EGFR-NON AF BURMESE >60 Normal >=60 [facility] Comment on above: Performed By: #### B MP, LIPID #### [facility] [address] [place] [address] Dr. Idania Tai Glucose [Mass/Vol] 157 mg/dL Critically high 74-106 [facility] Comment on above: Performed By: #### B MP, LIPID #### [facility] [address] [place] [address] Dr. Idania Tai Potassium [Moles/Vol] 3.6 mmol/L Normal 3.5-5.1 [facility] Comment on above: Performed By: #### B MP, LIPID #### [facility] [address] [place] [address] Dr. Idania Tai Sodium [Moles/Vol] 140 mmol/L Normal 136-145 [facility] Comment on above: Performed By: #### B MP, LIPID #### [facility] [address] [place] [address] Dr. Idania Tai Urea nitrogen [Mass/Vol] 16.0 mg/dL Normal 7.0-18.0 [facility] Comment on above: Performed By: #### B MP, LIPID #### [facility] [address] [place] [address] Dr. Idania Tai Urea nitrogen/Creatinine [Mass ratio] 19.8 mg/mg Normal [facility] Comment on above: Performed By: #### B MP, LIPID #### [facility] [address] [place] [address] Dr. Idania Tai PROF CHEM 8 (BAS METB)on Anion gap [Moles/Vol] 16.1 mmol/L Normal [facility] Comment on above: Performed By: #### B MP #### [facility] [address] [place] [address] Dr. Idania Tai Calcium [Mass/Vol] 9.4 mg/dL Normal 8.5-10.1 [facility] Comment on above: Performed By: #### B MP #### [facility] [address] [place] [address] Dr. Idania Tai Chloride [Moles/Vol] 98 mmol/L Normal 98-107 [facility] Comment on above: Performed By: #### B MP #### [facility] [address] [place] [address] Dr. Idania Tai CO2 [Moles/Vol] 26.0 mmol/L Normal 21.0-32.0 [facility] Comment on above: Performed By: #### B MP #### [facility] [address] [place] [address] Dr. Idania Tai Creatinine [Mass/Vol] 0.78 mg/dL Normal 0.70-1.30 [facility] Comment on above: Performed By: #### B MP #### [facility] [address] [place] [address] Dr. Idania Tai EGFR-AF BURMESE >60 Normal >=60 [facility] Comment on above: Performed By: #### B MP #### [facility] [address] [place] [address] Dr. Idania Tai EGFR-NON AF BURMESE >60 Normal >=60 [facility] Comment on above: Performed By: #### B MP #### [facility] [address] [place] [address] Dr. Idania Tai Glucose [Mass/Vol] 131 mg/dL Critically high 74-106 T [facility] Comment on above: Performed By: #### B MP #### [facility] [address] [address] [address] Idania Tai Potassium [Moles/Vol] 4.1 mmol/L Normal 3.5-5.1 [facility] Comment on above: Performed By: #### B MP #### [facility] [id number] Idania Tai Sodium [Moles/Vol] 136 mmol/L Normal 136-145 [facility] Comment on above: Performed By: #### B MP #### [facility] [address] [address] [address] Idania Tai Urea nitrogen [Mass/Vol] 19.0 mg/dL Critically high 7.0-18 .0 [facility] Comment on above: Performed By: #### B MP #### [facility] [address] [address] [address] Idania Tai Urea nitrogen/Creatinine [Mass ratio] 24.4 mg/mg Normal [facility] Comment on above: Performed By: #### B MP #### [facility] [id number] Idania Tai Glucose Glucometer ([facility]) [M ass/Vol]Ordered By: Sav Andrews on 12-22-2021 Glucose [Mass/Vol] 113 mg/dL [facility] Comment on above: Random Glucose Refer ence Range is dependent on time and content of last meal. Glucose of more than 200 mg/dL in a nonstressed, ambulatory subject supports the diagnosis of Diabetes Mellitus. Glucose Poct Glucometerson 0 12-22-2021 Glucose [Mass/Vol] 113 mg/dL Normal [facility] Comment on above: Result Comment: [place] Glucose Reference Range is dependent on time and content of last meal. Glucose of more than 200 mg/dL in a nonstressed, ambulatory subject supports the diagnosis of Diabetes Mellitus. PERFORMED BY: [address] [place] [address] PATHOLOGIST BINDERY MACHINE TENDER TEOFILO KHAN M.D. Performed By: #### G [...] developed and its performance characteristic determined by [employer] and validated at [facility]. This test has not been FDA cleared [...] for SARS Antigen by SIN PERFORMED BY: [facility] [address] [place] [address] PATHOLOGIST BINDERY MACHINE TENDER TEOFILO KHAN M.D. [facility] Comment on above: Performed By: #### C OVID-19 MAYRA, SOFIANEG #### [facility] [address] [place], [place] [address] COVID-19 SOFIAOrdered By: Bebe Andrews on 12-20-2021 SARS-CoV+SARS-CoV-2 (COVID-19) Ag IA.rapid Ql (Resp) Negative Negative [facility] Comment on above: This is a duplicate Mayra SARS Antigen (SIN) result to be used for statistical tracking purpose only. No Panel InformationOrdered By: Sav Andrews on 12-20-2021 SARS Antigen (LFIA) [facility] Mayra Ag Negativeon 12-21-19 Mayra Ag Negative Negative Normal Negative [facility] Comment on above: Result Comment: This is a duplicate Mayra SARS Antigen (SIN) result to be used for statistical tracking purpose only. PERFORMED BY: [place] [address] PATHOLOGIST BINDERY MACHINE TENDER TEOFILO KHAN M.D. Performed By: #### C OVID-19 MAYRA, SOFIANEG #### [address] ANKLE RT WO CONon 022 [...] severe tricompartmental osteoarthropathy of the knee with qlwl-gt-jhlh articulation of the lateral compartment. SOFT TISSUES: Negative. No visible soft tissue swelling. EFFUSION: None visible. OTHER: Negative. IMPRESSION: Progression of subchondral degenerative cystic changes of the tibial plafond and calcaneus Moderate to severe knee osteoarthritis with ebcs-mf-dhuq articulation of the lateral compartment Electronically authenticated by: GERA BLUM Date: 2021-11-14 16:32 Normal [facility] CBC AUTO DIFFon 09-11-2021 BASO # 0.1 103/ul Normal 0.0-0.1 [facility] Comment on above: Performed By: #### C BC ####[facility] [address] [place], [place] [address]Dr. Earnestinegisselle Tai Basophils/100 WBC (Bld) 0.8 % Normal 0.2-2.0 [facility] Comment on above: Performed By: #### C BC ####[facility] [address] [place], [place] [address]Dr. Idania Tai EO # 0.2 103/ul Normal 0.0-0.7 [facility] Comment on above: Performed By: #### C BC ####[facility] [address] [place], [place] [address]Dr. Idania Tai Eosinophils/100 WBC (Bld) 2.2 % Normal 0.9-7.0 [facility] Comment on above: Performed By: #### C BC ####[facility] [address] [place], [place] [address]Dr. Idania Tai Erythrocyte distribution width (RBC) [Ratio] 13.1 % Normal 11.0-15.0 [facility] Comment on above: Performed By: #### C BC ####[facility] [address] [place], [place] [address]Dr. Idania Tai Hematocrit (Bld) [Volume fraction] 44.5 % Normal 42.0-54.0 [facility] Comment on above: Performed By: #### C BC ####[facility] [address] [place], [place] [address]Dr. Idania Tai Hemoglobin (Bld) [Mass/Vol] 14.9 g/dL Normal 14.0-18.0 [facility] Comment on above: Performed By: #### C BC ####[facility] [address] [place], [place] [address]Dr. Idania Tai IG # 0.13 10e3/ul Critically high 0.00-0.03 [facility] Comment on above: Performed By: #### C BC ####[facility] [address] [address]Dr[address] Earnestinegisselle Tai IG % 1.5 % Critically high 0.0-0.5 [facility] Comment on above: Performed By: #### C BC ####[facility] [address] [address]Dr. Idania Tai LYMPH # 2.4 103/ul Normal 1.2-3.8 [facility] Comment on above: Performed By: #### C BC ####[facility] [address] [address]Dr. Earnestinegisselle Tai Lymphocytes/100 WBC (Bld) 27.7 % Normal 20.5-60.0 [facility] Comment on above: Performed By: #### C BC ####[facility] [address] [address]Dr. Idania Tai MANUAL DIFF REQ NO Normal [facility] Comment on above: Performed By: #### C BC ####[facility] [address] [address]Dr. Idania Zaire MCH (RBC) [Entitic mass] 28.9 pg Normal 25.9-34.0 [facility] Comment on above: Performed By: #### C BC ####[facility] [address] [place], [place] [address]Dr. Idania Zaire MCHC (RBC) [Mass/Vol] 33.5 g/dL Normal 29.9-35.2 [facility] Comment on above: Performed By: #### C BC ####[facility] [address] [address]Dr. Idania Tai MCV (RBC) [Entitic vol] 86.4 fL Normal 80.0-94.0 [facility] Comment on above: Performed By: #### C BC ####[facility] [address] [place], [place] [address]Dr. Idania Tai MONO # 0.6 103/ul Normal 0.3-0.8 [facility] Comment on above: Performed By: #### C BC ####[facility] [address] [place], [place] [address]Dr. Idania Tai Monocytes/100 WBC (Bld) 6.4 % Normal 1.7-12.0 [facility] Comment on above: Performed By: #### C BC ####[facility] [address] [id number]. Idania Tai NEUT # 5.3 103/ul Normal 1.4-6.5 [facility] Comment on above: Performed By: #### C BC ####[facility] [address] [address]Dr. Idania Tai Neutrophils/100 WBC (Bld) 61.4 % Normal 43.0-75.0 [facility] Comment on above: Performed By: #### C BC ####[facility] [address] [address]Dr. Idania Tai Platelet mean volume (Bld) [Entitic vol] 9.7 fL Normal 9.5-13.5 [facility] Comment on above: Performed By: #### C BC ####[facility] [address] [address]Dr. Idania Tai PLT 219 103/ul Normal 150-450 [facility] Comment on above: Performed By: #### C BC ####[facility] [address] [address]Dr. Idania Tai RBC 5.15 106/ul Normal 4.70-6.10 [facility] Comment on above: Performed By: #### C BC ####[facility] [address] [id number]. Idania Tai WBC 8.6 103/ul Normal 4.0-11.0 [facility] Comment on above: Performed By: #### C BC ####[facility] [address] [id number]. Idania Tai GLYCOHEMOGLOBIN A1Con 2021 ADA RECOMMENDATION ADA THERAPEUTIC TARGET 6.0 - 7.0 ACTION SUGGESTED > 7.0 Normal [facility] Comment on above: Performed By: #### A 1C ####[facility] [address] [place], [place] [address]XpDr. Idania Tai Glucose [Mass/Vol] 128 mg/dL Normal [facility] Comment on above: Performed By: #### A 1C ####[facility] [address] [place], [place] [address]Dr. Idania Tai HbA1c (Bld) [Mass fraction] 6.1 % Critically high <=6.0 [facility] Comment on above: Performed By: #### A 1C ####[facility] [address] [id number]. Idania Tai LIPID PROFILEon 09-11-2021 CHOL-HDL RATIO NORM SEE BELOW Normal [facility] Comment on above: Result Comment: 3.3 - 4.4 LOW RISK 4.4 - 7.1 AVERAGE RISK 7.1 - 11.0 MODERATE RISK >11.0 HIGH RISK Performed By: #### L IPID, CMP #### [facility] [address] [address] [address] Idania Tai Cholesterol [Mass/Vol] 175 mg/dL Normal <=200 [facility] Comment on above: Performed By: #### L IPID, CMP #### [facility] [address] [address] [address] Idania Tai Cholesterol in HDL [Mass/Vol] 54 mg/dL Normal 40-60 [facility] Comment on above: Performed By: #### L IPID, CMP #### [facility] [address] [address] [address] Idaina Tai Cholesterol in LDL [Mass/Vol] 87.2 mg/dL Normal [facility] Comment on above: Performed By: #### L IPID, CMP #### [facility] [address] [address] [address] Idania Tai Cholesterol.total/Choles terol in HDL [Mass ratio] 3.2 {ratio} Normal [facility] Comment on above: Performed By: #### L IPID, CMP #### [facility] [address] [address] [address] Idania Tai HDL NORMAL > or = 60 mg/dl - LOW CARDIOVASCULAR RISK <40 mg/dl - HIGH CARDIOVASCULAR RISK Normal [facility] Comment on above: Performed By: #### L IPID, CMP #### [facility] [address] [address] [address] Idania Tai LDL CALC NORMAL SEE BELOW Normal [facility] Comment on above: Result Comment: <100 mg/dl OPTIMAL 100 - 129 mg/dl NEAR OR ABOVE OPTIMAL 130 - 159 mg/dl BORDERLINE HIGH 160 - 189 mg/dl HIGH >190 mg/dl VERY HIGH Performed By: #### L IPID, CMP #### [facility] [address] [address] [address] Idania Tai Triglyceride [Mass/Vol] 169 mg/dL Critically high <=150 [facility] Comment on above: Performed By: #### L IPID, CMP #### [facility] [address] [address] [address] Idania Tai VLDL CALC 33.8 mg/dL Normal [facility] Comment on above: Performed By: #### L IPID, CMP #### [facility] [address] [place] [address] Dr. Idania Tai MICROALBUMIN, RAND URon - mALB 1.9 mg/L Normal <=30.0 [facility] Comment on above: Performed By: #### M ALBR #### [facility] [address] [place] [address] Dr. Idania Tai PROF 14(COMP METB)on 022 Albumin [Mass/Vol] 3.7 g/dL Normal 3.4-5.0 [facility] Comment on above: Performed By: #### L IPID, CMP #### [facility] [address] [address] [address] Idania Tai Albumin/Globulin [Mass ratio] 0.9 {ratio} Normal [facility] Comment on above: Performed By: #### L IPID, CMP #### [facility] [address] [place] [address] Dr. Idania Tai ALP [Catalytic activity/Vol] 73 U/L Normal 46-116 [facility] Comment on above: Performed By: #### L IPID, CMP #### [facility] [address] [address] [address] Idania Tai ALT [Catalytic activity/Vol] 68 U/L Critically high 16-63 [facility] Comment on above: Performed By: #### L IPID, CMP #### [facility] [address] [address] [address] Idania Tai Anion gap [Moles/Vol] 10.2 mmol/L Normal Th [facility] Comment on above: Performed By: #### L IPID, CMP #### [facility] [address] [address] [address] Idania Tai AST [Catalytic activity/Vol] 30 U/L Normal 15-37 [facility] Comment on above: Performed By: #### L IPID, CMP #### [facility] [address] [address] [address] Idania Tai Bilirubin [Mass/Vol] 1.0 mg/dL Normal 0.2-1.3 [facility] Comment on above: Performed By: #### L IPID, CMP #### [facility] [address] [address] [address] Idania Tai Calcium [Mass/Vol] 8.5 mg/dL Normal 8.5-10.1 [facility] Comment on above: Performed By: #### L IPID, CMP #### [facility] [address] [address] [address] Idania Tai Chloride [Moles/Vol] 101 mmol/L Normal 98-107 [facility] Comment on above: Performed By: #### L IPID, CMP #### [facility] [address] [address] [address] Idania Tai CO2 [Moles/Vol] 31.6 mmol/L Critically high 22.0-30.0 [facility] Comment on above: Performed By: #### L IPID, CMP #### [facility] [address] [address] [address] Idania Tai Creatinine [Mass/Vol] 0.67 mg/dL Normal 0.66-1.25 [facility] Comment on above: Performed By: #### L IPID, CMP #### [facility] [address] [address] [address] Idania Tai EGFR-AF BURMESE >60 Normal >=60 [facility] Comment on above: Performed By: #### L IPID, CMP #### [facility] [address] [address] [address] Idania Tai EGFR-NON AF BURMESE >60 Normal >=60 [facility] Comment on above: Performed By: #### L IPID, CMP #### [facility] [address] [address] [address] Idania Tai Globulin (S) [Mass/Vol] 4.0 g/dL Normal [facility] Comment on above: Performed By: #### L IPID, CMP #### [facility] [address] [address] [address] Idania Tai Glucose [Mass/Vol] 114 mg/dL Critically high 74-106 [facility] Comment on above: Performed By: #### L IPID, CMP #### [facility] [address] [address] [address] Idania Tai Potassium [Moles/Vol] 4.8 mmol/L Normal 3.4-5.0 [facility] Comment on above: Performed By: #### L IPID, CMP #### [facility] [address] [address] [address] Idania Tai Protein [Mass/Vol] 7.7 g/dL Normal 6.1-8.2 [facility] Comment on above: Performed By: #### L IPID, CMP #### [facility] [address] [address] [address] Idania Tai Sodium [Moles/Vol] 138 mmol/L Normal 137-145 [facility] Comment on above: Performed By: #### L IPID, CMP #### [facility] [address] [address] [address] Idania Tai Urea nitrogen [Mass/Vol] 12.0 mg/dL Normal 7.0-18.0 [facility] Comment on above: Performed By: #### L IPID, CMP #### [facility] [address] [address] [address] Idania Tai Urea nitrogen/Creatinine [Mass ratio] 17.9 mg/mg Normal [facility] Comment on above: Performed By: #### L IPID, CMP #### [facility] [id number] Idania Tai Vital Signs Date Time Vital Sign Value Performing Clinician Faci lity 09-10-2022 13:15-0400 Diastolic blood pressure 64 mm[Hg] MD Shaikh Baker Work Phone: [facility] 09-10-2022 13:15-0400 Heart rate 54 /min MD Shaikh Baker Work Phone: [facility] 09-10-2022 13:15-0400 Respiratory rate 16 /min MD Shaikh Baker Work Phone: [facility] 09-10-2022 13:15-0400 SaO2% (BldA) [Mass fraction] 97 % MD Shaikh Baker Work Phone: [facility] [place] 09-10-2022 13:15-0400 Systolic blood pressure 100 mm[Hg] MD Shaikh Baker Work Phone: [facility] [place] 09-10-2022 12:25-0400 Body temperature 97.5 [degF] MD Shaikh Baker Work Phone: [facility] 09-10-2022 11:55-0400 Inhaled oxygen flow rate 8 L/min MD Shaikh Baker Work Phone: [facility] 09-10-2022 10:54-0400 Body height 165.1 cm MD Shaikh Baker Work Phone: [facility] 09-10-2022 10:54-0400 Body mass index (BMI) [Ratio] 38.6 kg/m2 MD Shaikh Baker Work Phone: [facility] [place] 09-10-2022 10:54-0400 Body weight 105.4 kg MD Shaikh Baker Work Phone: [facility] [place] 12-22-2021 10:00-0400 Diastolic blood pressure 87 mm[Hg] MD Sav Andrews Work Phone: [facility] 12-22-2021 10:00-0400 Heart rate 54 /min MD Sav Andrews Work Phone: [facility] 12-22-2021 10:00-0400 Respiratory rate 18 /min MD Sav Andrews Work Phone: [facility] 12-22-2021 10:00-0400 SaO2% (BldA) [Mass fraction] 100 % MD Sav Andrews Work Phone: [facility] 12-22-2021 10:00-0400 Systolic blood pressure 139 mm[Hg] MD Sav Andrews Work Phone: [facility] 12-22-2021 07:37-0400 Body height 170.18 cm MD Sav Andrews Work Phone: [facility] 12-22-2021 07:37-0400 Body temperature 97.9 [degF] MD Sav Andrews Work Phone: [facility] 12-22-2021 07:37-0400 Body weight 81.64 kg MD Sav Andrews Work Phone: [facility] Encounters Encounter Date Encounter Type Care Provider Facility Start: 08-07-2023 End: 08-07-2023 ambulatory SHAIKH SAMUEL Not Available Start: 09-10-2022 End: 09-10-2022 ambulatory Silver Briceño Facility:[facility] Start: 09-10-2022 End: 09-10-2022 Admission to same day surgery center MD Shaikh Baker Work Phone: [facility] [place] Start: 09-10-2022 End: 09-10-2022 ambulatory MD Shaikh Baker Work Phone: [facility] Work Phone: Start: 08-30-2022 End: 08-30-2022 ambulatory Silver Briceño Facility:[facility] Start: 08-30-2022 End: 08-30-2022 ambulatory MD Shaikh Baker Work Phone: [facility] Work Phone: Start: 08-30-2022 End: 08-30-2022 Patient encounter procedure MD Shaikh Baker Work Phone: [facility] Work Phone: Start: 07-07-2022 End: 07-08-2022 ambulatory LEBLANC Adan SAMUEL Facility:[facility] Start: 03-13-2022 End: 03-14-2022 ambulatory LEBLANC Adan SAMUEL Facility:[facility] Start: 12-22-2021 End: 12-22-2021 ambulatory Sav Andrews Facility:[facility] Start: 12-22-2021 End: 12-22-2021 Admission to same day surgery center MD Sav Andrews Work Phone: [facility] Start: 12-20-2021 End: 12-20-2021 ambulatory Sav Andrews Facility:[facility] Start: 12-20-2021 End: 12-20-2021 Patient encounter procedure MD Sav Andrews Work Phone: [facility] Start: 11-14-2021 End: 11-15-2021 ambulatory REY [...] Activity Detail Author Start: 09-10-2022 End: 09-10-2022 [facility] Start: 12-22-2021 [facility] Work Phone: Patient Education Hemorrhoids [facility] Work Phone: Immunizations Immunization Date Immunization Notes Care Provider Fa [facility] 10-10-2020 COVID-19 mRNADeonirmichelle (Pfizer) MD Sav Andrews Work Phone: [facility] 09-19-2020 COVID-19 mRNA Comirmichelle (Pfizer) MD Sav Andrews Work Phone: [facility] Payers Date Payer Category Payer Self-pay [id number] 1965 Unknown [id number] 2.16.84 [id number] 1965 Unknown [id number] 2.16.84 [id number] 1966 Unknown [id number] 2.16.84 [id number] 1966 Unknown [id number] 2.16.84 [id number] 1966 Unknown [id number] 2.16.84 [id number] 1966 Unknown [id number] 2.16.84 [id number] 1966 Unknown [id number] 2.16.84 [id number] 1966 Unknown [id number] 2.16.84 [id number] 1959 Unknown [id number] Unknown [id number] 2.16.8 [id number] Unknown [id number] 2.16.8 [id number] Unknown [id number] 2.16.8 [id number] Unknown [id number] 2.16.8 [id number] Social History Date Type Detail Facility Start: 12-22-2021 End: 09-10-2022 Tobacco smoking status NHIS Ex-smoker (finding) [facility] Start: 1965 Sex Assigned At Male F [facility] Goals Date Patient Goal Desired Activity /State Procedure note 12-22-2021 Note Date & Type Note Facility 12-22-2021 Procedure note [facility] Clinical Note 10-26-2021 Note Date [...] authenticated by: MICHELLE IBRAHIM Date: 2021-10-26 08:54 [facility] Clinical Note 09-05-2021 Note Date [...] authenticated by: GERA BLUM Date: 2021-09-05 15:22 [facility] Evaluation note Note Date & Type Note Facility Evaluation note No assessment information availa [facility] Work Phone: History and physical note Note Date & Type Note Facility History and physical note Note Date/Time December 22, 2021 9:32 am [facility] [address] [place] [address] Gastroenterology H&P Signed Patient: Lavern Escobedo MR #: [id number] : 1965 Acct:[id number] Age/Sex: 56 / M Adm Date: 2 Loc: Room: Type: [facility] Attending Dr: Sav Andrews MD Copies [...] <Electronically signed by Sav Andrews MD> 12/22/21931 [facility] Work Phone: Chief Complaint and Reason [...] Active Team Status: Active Member Role Status Dates Shaikh Samuel MD Primary Care Provider Active Team Status: Inactive Member Role Status Dates Shaikh Samuel MD Primary Care Provider Active Silver Briceño DO Attending Provider Active (unrecognized sect ion and content) No Status Records FoundNo Status Records FoundNo Status Records Found INFORMATION SOURCE (unrecogn ized section and content) DATE CREATED AUTHOR 07/14/2022 [facility] DATE CREATED AUTHOR AUTHOR'S ORGANIZ ATION 10/02/2022 [facility] DATE CREATED AUTHOR AUTHOR'S ORGANIZ ATION 08/09/2023 [facility] EPIC Goals (unrecognized section and content) Goals may [...] BE BASED ON THE PRIMARY CLINICAL RECORDS. [facility], [facility]. provides no warranty or guarantee of the accuracy or completeness of information in this document.
--- NOTE | 2023-08-16 15:31 | CT_ITS ---
The [address] [address] Patient Name: LAVERN GARCIA MRN: [id number]:[id number] date: 1965 Sex: M Assigned Patient Location: CT Current Patient Location: Accession/Order Number: [id number] Exam Date: 08/16/2023 15:26 Report Date: 08/19/2023 07:23 At the request of: REY ALCARAZ Procedure: CT ankle RT wo con EXAMINATION: CT ankle RT wo con HISTORY: Ankle DJD, AVN COMPARISON: 06/25/2023 TECHNIQUE: Multi-planar CT images were created without IV contrast. Dose reduction techniques were achieved by using automated exposure control and/or adjustment of mA and/or kV according to patient size and/or use of iterative reconstruction technique. FINDINGS: BONES: Stable ankle fusion with placement of a talus spacer. Retrograde intramedullary marci and proximally and distally. No acute fracture, dislocation or mechanical failure. Bone graft identified in the expected location of the anterior talus. There is a permanent pattern of the bones most significant in the navicular, stable from the prior exam. No significant interval bone formation is observed SOFT TISSUES: Diffuse soft tissue swelling EFFUSION: None visible. OTHER: Negative. CT/CT ankle RT wo con IMPRESSION: Stable ankle fusion with no acute fracture, dislocation or mechanical failure Electronically authenticated by: GERA BLUM Date: 08/19/2023 07:23
== END 2023-08-16 15:04 | disposition home or self-care (01) ==
LOC: CT 15:04
PROVIDERS: PCP Internal Medicine; Visit Provider Podiatrist Foot & Ankle Surgery
DX: M19.071 Primary osteoarthritis, right ankle and foot (principal); M87.9 Osteonecrosis, unspecified; Z98.890 Other specified postprocedural states
CPT/HCPCS: 73700

== ENCOUNTER 2023-09-09 15:37 | Outpatient (OUT) | payer BC, SELFPAY ==
[2023-09-09 16:23] LABS: Creatinine Urine Random 29.36 mg/dL (20.00-300.00); Protein Creatinine Ratio Urine 0.24; Total Protein Urine Random 6.9 mg/dL (<=11.9)
[2023-09-09 16:38] LABS: Anion Gap 15.3; BUN Creatinine Ratio 17.9; Calcium 9.5 mg/dL (8.5-10.1); Carbon Dioxide 26.1 mmol/L (21.0-32.0); Chloride 100 mmol/L (98-107); Estimated GFR (African America >60 (>=60); Estimated GFR (Non-African Ame >60 (>=60); Glucose 212 mg/dL (74-106); Potassium 4.4 mmol/L (3.5-5.1); Sodium 137 mmol/L (136-145)
== END 2023-09-09 15:38 | disposition home or self-care (01) ==
LOC: LAB 15:38
PROVIDERS: PCP Internal Medicine; Visit Provider Internal Medicine
DX: R79.89 Other specified abnormal findings of blood chemistry (principal)
CPT/HCPCS: 36415; 80048; 82570; 84156

== ENCOUNTER 2023-09-10 14:37 | Outpatient (OUT) | payer BC, SELFPAY ==
--- NOTE | 2023-09-10 | XR_ITS ---
[address] [address] Patient Name: LAVERN GARCIA MRN: [id number] date: 1965 Sex: M Assigned Patient Location: Current Patient Location: Accession/Order Number: [id number] Exam Date: 09/10/2023 14:38 Report Date: 09/11/2023 08:52 At the request of: REY ALCARAZ Procedure: XR ankle RT min 3V PROCEDURE: XR ankle RT min 3V COMPARISON: 07/16/2023 HISTORY: RIGHT ANKLE PAIN FINDINGS: BONES:Stable ankle fusion with a talus replacement. Intramedullary marci extends from the calcaneus into the tibia and proximally and distally. Heterotopic bone likely from graft. Degenerative changes of the midfoot. SOFT TISSUES:Mild soft tissue swelling EFFUSION:None visible. OTHER: Negative. XR/XR ankle RT min 3V IMPRESSION: Stable ankle fusion Electronically authenticated by: GERA BLUM Date: 09/11/2023 08:52
== END 2023-09-10 14:38 | disposition home or self-care (01) ==
LOC: EC 14:37
PROVIDERS: PCP Internal Medicine; Visit Provider Podiatrist Foot & Ankle Surgery
DX: M19.071 Primary osteoarthritis, right ankle and foot (principal)
CPT/HCPCS: 73610

== ENCOUNTER 2023-10-19 08:57 | Outpatient (OUT) | payer BC, SELFPAY ==
--- OUTSIDE RECORDS SUMMARY | 2023-10-19 09:02 | XMS_ITS ---
Patient Summarization (C-CDA 2.1 CCD) Created on: October 19, 2023 LAVERN ESCOBEDO : 1965 Sex: Male Author Organization Sample organization Care Team Providers Care Drafter Apprentice Name Role Phone MD Sav Andrews Attending Provider [phone] MD Deana Baker Primary Care Provider [phone] DR ASA AL Attending Unavailable ACACIA JENKINS [facility] Care Unavailable MIKAELA, DR BRAY Admitting Unavailable LIZETH MARTIN Attending Unavailable KULWANT, DR GERA Kwan Consulting Unavailable MARIO, LIZETH Admitting Unavailable GREGORY [facility] Primary Care Unavailable MARIOAMNALIZETH Consulting Unavailable FAWWAD, ANGELO H Admitting Unavailable FAWWAD, ANGELO H Primary Care Unavailable FAWWAD, ANGELO H Consulting Unavailable FAWWAD, ANGELO H Attending Unavailable REY ALCARAZ Attending Unavailable REY ALCARAZ Admitting Unavailable FAWWAD, ANGELO H Primary Care Unavailable NARCISOJANN, DR MICHELLE Valles Consulting Unavailable REY ALCARAZ Consulting Unavailable REY ALCARAZ Admitting Unavailable KULWANT, DR GERA Kwan Consulting Unavailable REY ALCARAZ Attending Unavailable FAWWAD, ANGELO H Primary Care Unavailable HIGHLANDERREY Consulting Unavailable FAWWAD, ANGELO H Admitting Unavailable FAWWAD, ANGELO H Primary Care Unavailable FAWWAD, ANGELO H Consulting Unavailable FAWWAD, ANGELO H Attending Unavailable FAWWAD, ANGELO H Primary Care Unavailable FAWWAD, ANGELO H Consulting Unavailable SWEETIEWACecile, ANGELO H Attending Unavailable SAMUEL, ANGELO H Admitting Unavailable MD Deana Baker Primary Care Provider DO Silver Briceño Attending Provider [phone] Sav Andrews Attending Unavailable Sav Andrews Admitting Unavailable Samuel, Primary Care Unavailable Silver Briceño Attending Unavailable Silver Briceño Admitting Unavailable Faanushad, Primary Care Unavailable Sav Andrews Admitting Unavailable Sav Andrews Attending Unavailable Silver Briceño Attending Unavailable Silver Briceño Admitting Unavailable Geraldd, Primary Care Unavailable SAMUEL, Attending Unavailable SAMUEL, Attending Unavailable Encounters Encounter Date Encounter Type Care Provider Facility Start: 09-16-2023 End: 09-16-2023 ambulatory SHAIKH SWEETIESANDRAD Not Available Start: 08-07-2023 End: 08-07-2023 ambulatory ANGELO SAMUEL Not Available Start: 09-10-2022 End: 09-10-2022 ambulatory Silver Briceño Facility:[facility] Start: 09-10-2022 End: 09-10-2022 Admission to same day surgery center MD Shaikh Baker Work Phone: [facility] [place] Start: 09-10-2022 End: 09-10-2022 ambulatory MD Shaikh Baker Work Phone: [facility] Work Phone: Start: 08-30-2022 End: 08-30-2022 ambulatory Silver Briceño Facility:[facility] Start: 08-30-2022 End: 08-30-2022 ambulatory MD Shaikh Baker Work Phone: [facility] Work Phone: Start: 08-30-2022 End: 08-30-2022 Patient encounter procedure MD Shaikh Baker Work Phone: [facility] Work Phone: Start: 07-07-2022 End: 07-08-2022 ambulatory SHAIKH Adan BAKER Facility: Start: 03-13-2022 End: 03-14-2022 ambulatory SHAIKH Adan SAMUEL Facility:[facility] Start: 12-22-2021 End: 12-22-2021 ambulatory Sav Andrews Facility:[facility] Start: 12-22-2021 End: 12-22-2021 Admission to same day surgery center MD Sav Andrews Work Phone: [facility] Start: 12-20-2021 End: 12-20-2021 ambulatory Sav Andrews Facility:[facility] Start: 12-20-2021 End: 12-20-2021 Patient encounter procedure MD Sav Andrews Work Phone: [facility] Start: 11-14-2021 End: 11-15-2021 ambulatory REY ALCARAZ Facility:[facility] Start: 10-25-2021 End: 10-26-2021 ambulatory REY ALCARAZ Facility:[facility] Start: 09-11-2021 End: 09-12-2021 ambulatory SHAIKH Adan LYONSMATT Facility:[facility] Start: 09-05-2021 End: 09-06-2021 ambulatory LIZETH MARIO Facility:[facility] Start: 08-03-2021 End: 08-03-[address] ASA AL Facility:[facility] Goals Date Patient Goal Desired Activity /State Immunizations Immunization Date Immunization Notes Care Provider Fa [facility] 10-10-2020 COVID-19 Soniya Benavides (Pfizer) MD Sav Andrews Work Phone: [facility] 09-19-2020 COVID-19 mRNASoniya (Pfizer) MD Sav Andrews Work Phone: [facility] Medications Current Medications Medication Drug Class(es) Dates Sig (Normalized) Sig (Original) [id number] 200 actuat albuterol 0.09 mg/actuat metered dose [...] MG PO Daily December 22, 2021 12:00am [place] 0-Nln-Jhv-Fish Oil (Fish Oil) 1,200 (144-216) mg Capsule (4 sources) Start: 12-22-2021 take 1 capsule by mouth twice daily [place] 4-Vdq-Tob-Fish Oil (Fish Oil) 1,200 (144-216) mg Capsule [...] Q6H 30 7 September 10, 2022 12:00am Payers Date Payer Category Payer Self-pay [id number] 1965 Unknown [id number] 2.16.84 [id number] 1965 Unknown [id number] 2.16.84 [id number] 1965 Unknown [id number] 2.16.84 [id number] 1965 Unknown [id number] 2.16.84 [id number] 1965 Unknown [id number] 2.16.84 [id number] 1965 Unknown [id number] 2.16.84 [id number] 1965 Unknown [id number] 2.16.84 [id number] 1965 Unknown [id number] 2.16.84 [id number] 1965 Unknown [id number] 2.16.84 [id number] 1959 Unknown [id number] Unknown [id number] 2.16.8 [id number] Unknown [id number] 2.16.8 [id number] Unknown [id number] 2.16.8 [id number] Unknown [id number] 2.16.8 [id number] Plan of Treatment Date Care Activity Detail Author Start: 09-10-2022 End: 09-10-2022 [facility] Start: 12-22-2021 [facility] Work Phone: Patient Education Hemorrhoids [facility] Work Phone: Problems Active Problems Problem Classification Problem Date [...] CARRIED OUT OTH REASONS] Onset: 08-03-2021 Episodic Procedures Date Procedure Procedure Detail Performing Clinician Start: 09-10-2022 Hemorrhoidectomy MD Beltran Baker Work Phone: Start: 12-22-2021 Screening colonoscopy Ev Andrews Work Phone: SARS Antigen (LFIA) MD Dill on Darryl Work Phone: Results Test Name Value Interpretation Reference Range Facility Glucose Glucometer (BldC) [M ass/Vol]Ordered By: Silver Briceño on 09-10-2022 Glucose [Mass/Vol] 131 mg/dL [facility] Comment on above: Random Glucose Refer ence Range is dependent on time and content of last meal. Glucose of more than 200 mg/dL in a nonstressed, ambulatory subject supports the diagnosis of Diabetes Mellitus. Glucose [Mass/Vol] 137 mg/dL [facility] Comment on above: Random Glucose Refer ence Range is dependent on time and content of last meal. Glucose of more than 200 mg/dL in a nonstressed, ambulatory subject supports the diagnosis of Diabetes Mellitus. Glucose Poct Glucometerson 0 09-10-2022 Glucose [Mass/Vol] 131 mg/dL Normal [facility] Comment on above: Result Comment: [place] om Glucose Reference Range is dependent on time and content of last meal. Glucose of more than 200 mg/dL in a nonstressed, ambulatory subject supports the diagnosis of Diabetes Mellitus. PERFORMED BY: [place] [address] PATHOLOGIST TEACHER'S AIDE TEOFILO KHAN M.D. Performed By: #### G LULS #### Point of Care testing , Glucose [Mass/Vol] 137 mg/dL Normal [facility] Comment on above: Result Comment: [place] om Glucose Reference Range is dependent on time and content of last meal. Glucose of more than 200 mg/dL in a nonstressed, ambulatory subject supports the diagnosis of Diabetes Mellitus. PERFORMED BY: [place] [address] PATHOLOGIST TEACHER'S AIDE TEOFILO KHAN M.D. Performed By: #### G LULS #### Point of Care testing , Basic Metabolic Panelon 04-0 Anion gap [Moles/Vol] 13.5 mmol/L Normal 6.0-15.0 [facility] Comment on above: Performed By: #### C BC, BMP #### [address] Calcium [Mass/Vol] 9.4 mg/dL Normal 8.6-10.3 [facility] Comment on above: Result Comment: PERF ORMED BY: [facility] [address] [place] [address] PATHOLOGIST TEACHER'S AIDE TEOFILO KHAN M.D. Performed By: #### C BC, BMP #### [facility] [address] [place] [id number] [place] Chloride [Moles/Vol] 102 mmol/L Normal 98-107 [facility] Comment on above: Performed By: #### C BC, BMP #### [facility] [address] [place] [address] [place] CO2 [Moles/Vol] 28.5 mmol/L Normal 21.0-31.0 [facility] Comment on above: Performed By: #### C BC, BMP #### [facility] [address] Creatinine [Mass/Vol] 0.99 mg/dL Normal 0.70-1.30 [facility] Comment on above: Performed By: #### C BC, BMP #### [facility] [address] [place] [address] [place] GFR/1.73 sq M.predicted MDRD (S/P/Bld) [Vol rate/Area] mL/min/{1.73_m2} Normal [facility] Comment on above: Performed By: #### C BC, BMP #### [facility] [address] Glucose [Mass/Vol] 114 mg/dL High 70-100 [facility] Comment on above: Result Comment: [place] Glucose Reference Range is dependent on time and content of last meal. Glucose of more than 200 mg/dL in a nonstressed, ambulatory subject supports the diagnosis of Diabetes Mellitus. ADA recommended reference range Performed By: #### C BC, BMP #### [facility] [address] [phone] [place] Potassium [Moles/Vol] 4.0 mmol/L Normal 3.5-5.1 [facility] Comment on above: Performed By: #### C BC, BMP #### [facility] [address] [place] [phone] [place] Sodium [Moles/Vol] 140 mmol/L Normal 136-145 [facility] Comment on above: Performed By: #### C BC, BMP #### [facility] [address] Urea nitrogen [Mass/Vol] 21 mg/dL Normal 7-25 [facility] Comment on above: Performed By: #### C SAI, BMP #### [facility] [address] Basophils Auto (Bld) [#/Vol] Ordered By: Silver Briceño on 08-30-2022 Basophils (Bld) [#/Vol] 0.0 10*3/uL 0.0-0.2 [facility] Basophils/100 WBC Auto (Bld) Ordered By: Silver Briceño on 08-30-2022 Basophils/100 WBC (Bld) 0.7 % . [facility] Calcium [Mass/volume] in Ser um or PlasmaOrdered By: Silver Briceño on 08-30-2022 Calcium [Mass/Vol] 9.4 mg/dL 8.6-10.3 [facility] Carbon dioxide, total [Moles /volume] in Serum or PlasmaOrdered By: Silver Briceño on 08-30-2022 CO2 [Moles/Vol] 28.5 mmol/L 21.0-31.0 [facility] Chloride [Moles/volume] in S gela or PlasmaOrdered By: Silver Briceño on 08-30-2022 Chloride [Moles/Vol] 102 mmol/L 98-107 [facility] Complete Blood Count Auto Di ffon 08-30-2022 Basophils (Bld) [#/Vol] 0.0 10*3/uL Normal 0.0-0.2 [facility] Comment on above: Result Comment: PERF ORMED BY: [facility] [address] [place] [address] PATHOLOGIST TEACHER'S AIDE TEOFILO KHAN M.D. Performed By: #### C SAI, BMP #### [facility] [address] Basophils/100 WBC (Bld) 0.7 % Normal . [facility] Comment on above: Performed By: #### C BC, BMP #### [facility] [address] [place] [address] [place] Eosinophils (Bld) [#/Vol] 0.3 10*3/uL Normal 0.0-0.45 [facility] Comment on above: Performed By: #### C BC, BMP #### [address] Eosinophils/100 WBC (Bld) 6.1 % Normal . [facility] Comment on above: Performed By: #### C BC, BMP #### [address] Erythrocyte distribution width (RBC) [Ratio] 14.5 % Normal 12.0-14.8 [facility] Comment on above: Performed By: #### C BC, BMP #### [address] Hematocrit (Bld) [Volume fraction] 36.5 % Low 38.8-50.0 [facility] Comment on above: Performed By: #### C BC, BMP #### [address] Hemoglobin (Bld) [Mass/Vol] 12.5 g/dL Low 13.0-17.0 [facility] Comment on above: Performed By: #### C BC, BMP #### [address] Lymphocytes (Bld) [#/Vol] 1.8 10*3/uL Normal 1.00-4.8 [facility] Comment on above: Performed By: #### C BC, BMP #### [place] [address] [place] Lymphocytes/100 WBC (Bld) 35.5 % Normal . [facility] Comment on above: Performed By: #### C BC, BMP #### [address] MCH (RBC) [Entitic mass] 29.2 pg Normal 27.5-35.2 [facility] Comment on above: Performed By: #### C BC, BMP #### [address] MCV (RBC) [Entitic vol] 85.1 fL Normal 83.5-101 [facility] Comment on above: Performed By: #### C BC, BMP #### [facility] [address] Mean Corpuscular HGB Conc 34.3 g/dL Normal 32.5-35.6 [facility] Comment on above: Performed By: #### C BC, BMP #### [facility] [address] [place] [address] [place] Monocytes (Bld) [#/Vol] 0.4 10*3/uL Normal 0.0-0.8 [facility] Comment on above: Performed By: #### C BC, BMP #### [facility] [address] Monocytes/100 WBC (Bld) 8.2 % Normal . [facility] Comment on above: Performed By: #### C BC, BMP #### [facility] [address] [place] [address] [place] Neutrophils (Bld) [#/Vol] 2.5 10*3/uL Normal 1.8-7.7 [facility] Comment on above: Performed By: #### C BC, BMP #### [facility] [address] [place] [address] [place] Neutrophils/100 WBC (Bld) 49.5 % Normal . [facility] Comment on above: Performed By: #### C BC, BMP #### [facility] [address] [place] [address] [place] NRBC% 0.2 /100{WBC} Normal 0-0.5 [facility] Comment on above: Performed By: #### C BC, BMP #### [facility] [address] [place] [address] [place] Platelet mean volume (Bld) [Entitic vol] 8.8 fL Normal 6.6-10.1 [facility] Comment on above: Performed By: #### C BC, BMP #### [facility] [address] [place] [address] [place] Platelets (Bld) [#/Vol] 155 10*3/uL Normal 150-450 [facility] Comment on above: Performed By: #### C BC, BMP #### [facility] [address] RBC (Bld) [#/Vol] 4.29 10*6/uL Normal 3.90-5.60 [facility] Comment on above: Performed By: #### C BC, BMP #### [facility] [address] [place] [phone] [facility] WBC (Bld) [#/Vol] 5.1 10*3/uL Normal 4.1-10.5 [facility] Comment on above: Performed By: #### C SAI, BMP #### [facility] [address] Creatinine [Mass/volume] in Serum or PlasmaOrdered By: Silver Briceño on 08-30-2022 Creatinine [Mass/Vol] 0.99 mg/dL 0.70-1.30 [facility] ECG 12 lead ECGon 08-30-2022 ECG 12 lead ECG [facility] [place] [address] [place] [address] Electrocardiograph Report Signed Patient: Lavern Escobedo MR#: [id number] : 1965 Acct:[id number] Age/Sex: 57 / M ADM Date: 08/30/22 Loc: Room: Type: [facility] Attending Dr: Silver Briceño DO Ordering Provider: [...] ECG No previous ECGs available Confirmed by LEANNA LOVE MD, FACC ([id number]) on 08/31/2022 12:23:25 PM Referred By: FREDDY Electronically Signed By:LEANNA LOVE MD, FACC Transcribed By: MUS Signed By Leo Love MD 08/31/22 1223 Normal [facility] Eosinophils Auto (Bld) [#/Vo l]Ordered By: Silver Briceño on 08-30-2022 Eosinophils (Bld) [#/Vol] 0.3 10*3/uL 0.0-0.45 [facility] Eosinophils/100 WBC Auto (Bl d)Ordered By: Silver Briceño on 08-30-2022 Eosinophils/100 WBC (Bld) 6.1 % . [facility] Erythrocyte distribution wid th Auto (RBC) [Ratio]Ordered By: Silver Briceño on 08-30-2022 Erythrocyte distribution width (RBC) [Ratio] 14.5 % 12.0-14.8 [facility] Glucose [Mass/volume] in Ser um or PlasmaOrdered By: Silver Briceño on 08-30-2022 Glucose [Mass/Vol] 114 mg/dL 70-100 [facility] Comment on above: ADA recommended refe rence rangeRandom Glucose Reference Range is dependent on time and content of last meal. Glucose of more than 200 mg/dL in a nonstressed, ambulatory subject supports the diagnosis of Diabetes Mellitus. Hematocrit Auto (Bld) [Volum e fraction]Ordered By: Silver Briceño on 08-30-2022 Hematocrit (Bld) [Volume fraction] 36.5 % 38.8-50.0 [facility] Hemoglobin [Mass/volume] in BloodOrdered By: Silver Briceño on 08-30-2022 Hemoglobin (Bld) [Mass/Vol] 12.5 g/dL 13.0-17.0 [facility] Leukocytes [#/volume] correc shashi for nucleated erythrocytes in Blood by Automated counOrdered By: Silver Briceño on 08-30-2022 WBC corrected for nucl RBC Auto (Bld) [#/Vol] 5.1 10*3/uL 4.1-10.5 [facility] Lymphocytes Auto (Bld) [#/Vo l]Ordered By: Silver Briceño on 08-30-2022 Lymphocytes (Bld) [#/Vol] 1.8 10*3/uL 1.00-4.8 [facility] Lymphocytes/100 WBC Auto (Bl d)Ordered By: Silver Briceño on 08-30-2022 Lymphocytes/100 WBC (Bld) 35.5 % . [facility] MCH Auto (RBC) [Entitic mass ]Ordered By: Silver Briceño on 08-30-2022 MCH (RBC) [Entitic mass] 29.2 pg 27.5-35.2 [facility] MCHC Auto (RBC) [Mass/Vol]Or dered By: Silver Briceño on 08-30-2022 MCHC (RBC) [Mass/Vol] 34.3 g/dL 32.5-35.6 [facility] MCV Auto (RBC) [Entitic vol] Ordered By: Silver Briceño on 08-30-2022 MCV (RBC) [Entitic vol] 85.1 fL 83.5-101 [facility] Monocytes Auto (Bld) [#/Vol] Ordered By: Silver Briceño on 08-30-2022 Monocytes (Bld) [#/Vol] 0.4 10*3/uL 0.0-0.8 [facility] Monocytes/100 WBC Auto (Bld) Ordered By: Silver Briceño on 08-30-2022 Monocytes/100 WBC (Bld) 8.2 % . [facility] Neutrophils Auto (Bld) [#/Vo l]Ordered By: Silver Briceño on 08-30-2022 Neutrophils (Bld) [#/Vol] 2.5 10*3/uL 1.8-7.7 [facility] Neutrophils/100 WBC Auto (Bl d)Ordered By: Silver Briceño on 08-30-2022 Neutrophils/100 WBC (Bld) 49.5 % . [facility] No Panel InformationOrdered By: Silver Briceño on 08-30-2022 Estimated GFR (CKD-EPI) > 60.0 mL/Min [facility] Creatinine Clearance (Chem N/A [facility] Nucleated erythrocytes [Pres ence] in Blood by Automated countOrdered By: Silver Briceño on 08-30-2022 Nucleated RBC Auto Ql (Bld) 0.2 /100{WBC} 0-0.5 [facility] Platelet mean volume Auto (B ld) [Entitic vol]Ordered By: Silver Briceño on 08-30-2022 Platelet mean volume (Bld) [Entitic vol] 8.8 fL 6.6-10.1 [facility] Platelets Auto (Bld) [#/Vol] Ordered By: Silver Briceño on 08-30-2022 Platelets (Bld) [#/Vol] 155 10*3/uL 150-450 [facility] Potassium [Moles/volume] in Serum or PlasmaOrdered By: Silver Briceño on 08-30-2022 Potassium [Moles/Vol] 4.0 mmol/L 3.5-5.1 [facility] RBC Auto (Bld) [#/Vol]Ordere d By: Silver Briceño on 08-30-2022 RBC (Bld) [#/Vol] 4.29 10*6/uL 3.90-5.60 [facility] Serum or plasma anion gap de terminationOrdered By: Silver Briceño on 08-30-2022 Anion gap [Moles/Vol] 13.5 mmol/L 6.0-15.0 [facility] Sodium [Moles/volume] in Ser um or PlasmaOrdered By: Silver Briceño on 08-30-2022 Sodium [Moles/Vol] 140 mmol/L 136-145 [facility] Urea nitrogen [Mass/volume] in Serum or PlasmaOrdered By: Silver Briceño on 08-30-2022 Urea nitrogen [Mass/Vol] 21 mg/dL 7-25 [facility] WBC Auto (Bld) [#/Vol]Ordere d By: Silver Briceño on 08-30-2022 WBC (Bld) [#/Vol] 5.1 10*3/uL 4.1-10.5 [facility] GLYCOHEMOGLOBIN A1Con 2022 ADA RECOMMENDATION SEE BELOW Normal [facility] Comment on above: Result Comment: ADA RECOMMENDED LIMIT 4.0 - 6.0 ADA THERAPEUTIC TARGET < 7.0 ACTION SUGGESTED > 7.0 Performed By: #### A 1C #### [facility] [address] [address] [address] Idania Tai Glucose [Mass/Vol] 243 mg/dL Normal [facility] Comment on above: Performed By: #### A 1C #### [facility] [address] [address] [address] Idania Tai HbA1c (Bld) [Mass fraction] 10.1 % Critically high 4.5-6.2 [facility] Comment on above: Performed By: #### A 1C #### [facility] [address] [place] [address] Dr. Idania Tai LIPID PROFILEon 07-07-2022 CHOL-HDL RATIO NORM SEE BELOW Normal [facility] Comment on above: Result Comment: 3.3 - 4.4 LOW RISK 4.4 - 7.1 AVERAGE RISK 7.1 - 11.0 MODERATE RISK >11.0 HIGH RISK Performed By: #### B MP, LIPID #### [facility] [address] [place] [address] Dr. Idania Tai Cholesterol [Mass/Vol] 172 mg/dL Normal <=200 [facility] Comment on above: Performed By: #### B MP, LIPID #### [facility] [address] [place] [address] Dr. Idania Tai Cholesterol in HDL [Mass/Vol] 48 mg/dL Normal 40-60 [facility] Comment on above: Performed By: #### B MP, LIPID #### [facility] [address] [place] [address] Dr. Idania Tai Cholesterol in LDL [Mass/Vol] 95.6 mg/dL Normal [facility] Comment on above: Performed By: #### B MP, LIPID #### [facility] [address] [place] [address] Dr. Idania Tai Cholesterol.total/Choles terol in HDL [Mass ratio] 3.6 {ratio} Normal [facility] Comment on above: Performed By: #### B MP, LIPID #### [facility] [address] [place] [address] Dr. Idania Tai HDL NORMAL > or = 60 mg/dl - LOW CARDIOVASCULAR RISK <40 mg/dl - HIGH CARDIOVASCULAR RISK Normal [facility] Comment on above: Performed By: #### B MP, LIPID #### [facility] [address] [address] [address] Idania Tai LDL CALC NORMAL SEE BELOW Normal [facility] Comment on above: Result Comment: <100 mg/dl OPTIMAL 100 - 129 mg/dl NEAR OR ABOVE OPTIMAL 130 - 159 mg/dl BORDERLINE HIGH 160 - 189 mg/dl HIGH >190 mg/dl VERY HIGH Performed By: #### B MP, LIPID #### [facility] [address] [address] [address] Idania Tai Triglyceride [Mass/Vol] 142 mg/dL Normal <=150 [facility] Comment on above: Performed By: #### B MP, LIPID #### [facility] [address] [address] [address] Idania Tai VLDL CALC 28.4 mg/dL Normal [facility] Comment on above: Performed By: #### B MP, LIPID #### [facility] [address] [place] [address] Dr. Idania Tai PROF CHEM 8 (BAS METB)on Anion gap [Moles/Vol] 11.0 mmol/L Normal [facility] Comment on above: Performed By: #### B MP, LIPID #### [facility] [address] [address] [address] Idania Tai Calcium [Mass/Vol] 9.1 mg/dL Normal 8.5-10.1 [facility] Comment on above: Performed By: #### B MP, LIPID #### [facility] [address] [address] [address] Idania Tai Chloride [Moles/Vol] 100 mmol/L Normal 98-107 [facility] Comment on above: Performed By: #### B MP, LIPID #### [facility] [address] [address] [address] Idania Tai CO2 [Moles/Vol] 32.6 mmol/L Critically high 21.0-32.0 [facility] Comment on above: Performed By: #### B MP, LIPID #### [facility] [address] [place] [address] Dr. Idania Tai Creatinine [Mass/Vol] 0.81 mg/dL Normal 0.70-1.30 [facility] Comment on above: Performed By: #### B MP, LIPID #### [facility] [address] [address] [address] Idania Tai EGFR-AF SIERRA LEONEAN >60 Normal >=60 [facility] Comment on above: Performed By: #### B MP, LIPID #### [facility] [address] [address] [address] Idania Tai EGFR-NON AF SIERRA LEONEAN >60 Normal >=60 [facility] Comment on above: Performed By: #### B MP, LIPID #### [facility] [address] [address] [address] Idania Tai Glucose [Mass/Vol] 157 mg/dL Critically high 74-106 [facility] Comment on above: Performed By: #### B MP, LIPID #### [facility] [address] [address] [address] Idania Tai Potassium [Moles/Vol] 3.6 mmol/L Normal 3.5-5.1 [facility] Comment on above: Performed By: #### B MP, LIPID #### [facility] [address] [address] [address] Idania Tai Sodium [Moles/Vol] 140 mmol/L Normal 136-145 [facility] Comment on above: Performed By: #### B MP, LIPID #### [facility] [address] [address] [address] Idania Tai Urea nitrogen [Mass/Vol] 16.0 mg/dL Normal 7.0-18.0 [facility] Comment on above: Performed By: #### B MP, LIPID #### [facility] [address] [address] [address] Idania Tai Urea nitrogen/Creatinine [Mass ratio] 19.8 mg/mg Normal [facility] Comment on above: Performed By: #### B MP, LIPID #### [facility] [address] [address] [address] Idania Tai PROF CHEM 8 (BAS METB)on 10- 18-2022 Anion gap [Moles/Vol] 16.1 mmol/L Normal [facility] Comment on above: Performed By: #### B MP #### [facility] [address] [place] [address] Dr. Idania Tai Calcium [Mass/Vol] 9.4 mg/dL Normal 8.5-10.1 [facility] Comment on above: Performed By: #### B MP #### [facility] [address] [place] [address] Dr. Idania Tai Chloride [Moles/Vol] 98 mmol/L Normal 98-107 [facility] Comment on above: Performed By: #### B MP #### [facility] [address] [place] [address] Dr. Idania Tai CO2 [Moles/Vol] 26.0 mmol/L Normal 21.0-32.0 [facility] Comment on above: Performed By: #### B MP #### [facility] [address] [place] [address] Dr. Idania Tai Creatinine [Mass/Vol] 0.78 mg/dL Normal 0.70-1.30 [facility] Comment on above: Performed By: #### B MP #### [facility] [address] [place] [address] Dr. Idania Tai EGFR-AF SIERRA LEONEAN >60 Normal >=60 [facility] Comment on above: Performed By: #### B MP #### [facility] [address] [place] [address] Dr. Idania Tai EGFR-NON AF SIERRA LEONEAN >60 Normal >=60 [facility] Comment on above: Performed By: #### B MP #### [facility] [address] [place] [address] Dr. Idania Tai Glucose [Mass/Vol] 131 mg/dL Critically high 74-106 [facility] Comment on above: Performed By: #### B MP #### [facility] [address] [place] [address] Dr. Idania Tai Potassium [Moles/Vol] 4.1 mmol/L Normal 3.5-5.1 [facility] Comment on above: Performed By: #### B MP #### [facility] [address] [place], [place] [address] Dr. Idania Tai Sodium [Moles/Vol] 136 mmol/L Normal 136-145 [facility] Comment on above: Performed By: #### B MP #### [facility] [address] [place], [place] [address] Dr. Idania Tai Urea nitrogen [Mass/Vol] 19.0 mg/dL Critically high 7.0-18 .0 [facility] Comment on above: Performed By: #### B MP #### [facility] [address] [place], [place] [address] Dr. Idania Tai Urea nitrogen/Creatinine [Mass ratio] 24.4 mg/mg Normal [facility] Comment on above: Performed By: #### B MP #### [facility] [address] [place], [place] [address] Dr. Idania Tai Glucose Glucometer (BldC) [M ass/Vol]Ordered By: Sav Andrews on 12-22-2021 Glucose [Mass/Vol] 113 mg/dL [facility] Comment on above: Random Glucose Refer ence Range is dependent on time and content of last meal. Glucose of more than 200 mg/dL in a nonstressed, ambulatory subject supports the diagnosis of Diabetes Mellitus. Glucose Poct Glucometerson 0 12-22-2021 Glucose [Mass/Vol] 113 mg/dL Normal [facility] Comment on above: Result Comment: [place] Glucose Reference Range is dependent on time and content of last meal. Glucose of more than 200 mg/dL in a nonstressed, ambulatory subject supports the diagnosis of Diabetes Mellitus. PERFORMED BY: [facility] [address] [place] [address] PATHOLOGIST TEACHER'S AIDE TEOFILO KHAN M.D. Performed By: #### G [...] developed and its performance characteristic determined by [employer] and validated at [facility]. This test has not been FDA [...] for SARS Antigen by [facility] PERFORMED BY: [place] [address] PATHOLOGIST TEACHER'S AIDE TEOFILO KHAN M.D. Normal [facility] Comment on above: Performed By: #### C OVID-19 MAYRA, SOFIANEG #### [address] COVID-19 SOFIAOrdered By: Bebe Andrews on 12-20-2021 SARS-CoV+SARS-CoV-2 (COVID-19) Ag IA.rapid Ql (Resp) Negative Negative [facility] Comment on above: This is a duplicate Mayra SARS Antigen ([facility]IN) result to be used for statistical tracking purpose only. No Panel InformationOrdered By: Sav Andrews on 12-20-2021 SARS Antigen (LFIA) [facility] Mayra Ag Negativeon 12-21-19 Mayra Ag Negative Negative Normal Negative [facility] Comment on above: Result Comment: This is a duplicate Mayra SARS Antigen (SIN) result to be used for statistical tracking purpose only. PERFORMED BY: [facility] [address] [place] [address] PATHOLOGIST TEACHER'S AIDE TEOFILO KHAN M.D. Performed By: #### C OVID-19 MAYRA, SOFIANEG #### [facility] [address] ANKLE RT WO CONon 022 [...] severe tricompartmental osteoarthropathy of the knee with idcm-hi-rjfq articulation of the lateral compartment. SOFT TISSUES: Negative. No visible soft tissue swelling. EFFUSION: None visible. OTHER: Negative. IMPRESSION: Progression of subchondral degenerative cystic changes of the tibial plafond and calcaneus Moderate to severe knee osteoarthritis with wbiu-rm-ahkl articulation of the lateral compartment Electronically authenticated by: GERA BLUM Date: 2021-11-14 16:32 Normal [facility] CBC AUTO DIFFon 09-11-2021 BASO # 0.1 103/ul Normal 0.0-0.1 [facility] Comment on above: Performed By: #### C BC ####[facility] [address] [address]Dr[address]ly Earnestinegisselle Tai Basophils/100 WBC (Bld) 0.8 % Normal 0.2-2.0 [facility] Comment on above: Performed By: #### C BC ####[facility] [address] [address]Dr. Earnestinegisselle Zaire EO # 0.2 103/ul Normal 0.0-0.7 [facility] Comment on above: Performed By: #### C BC ####[facility] [address] [place], [place] [address]Dr. Idania Tai Eosinophils/100 WBC (Bld) 2.2 % Normal 0.9-7.0 [facility] Comment on above: Performed By: #### C BC ####[facility] [address] [place], [place] [address]Dr. Idania Tai Erythrocyte distribution width (RBC) [Ratio] 13.1 % Normal 11.0-15.0 [facility] Comment on above: Performed By: #### C BC ####[facility] [address] [place], [place] [address]Dr. Idania Tai Hematocrit (Bld) [Volume fraction] 44.5 % Normal 42.0-54.0 [facility] Comment on above: Performed By: #### C BC ####[facility] [address] [place], [place] [address]Dr. Earnestinegisselle Tai Hemoglobin (Bld) [Mass/Vol] 14.9 g/dL Normal 14.0-18.0 [facility] Comment on above: Performed By: #### C BC ####[facility] [address] [place], [place] [address]Dr. Idania Tai IG # 0.13 10e3/ul Critically high 0.00-0.[address] [facility] Comment on above: Performed By: #### C BC ####[facility] [address] [place], [place] [address]Dr. Idania Tai IG % 1.5 % Critically high 0.0-0.5 [facility] Comment on above: Performed By: #### C BC ####[facility] [address] [place], [place] [address]Dr. Idania Tai LYMPH # 2.4 103/ul Normal 1.2-3.8 [facility] Comment on above: Performed By: #### C BC ####[facility] [address] [address]Dr. Idania Tai Lymphocytes/100 WBC (Bld) 27.7 % Normal 20.5-60.0 [facility] Comment on above: Performed By: #### C BC ####[facility] [address] [address]DrAlly Tai MANUAL DIFF REQ NO Normal [facility] Comment on above: Performed By: #### C BC ####[facility] [address] [address]Dr. Idania Tai MCH (RBC) [Entitic mass] 28.9 pg Normal 25.9-34.0 [facility] Comment on above: Performed By: #### C BC ####[facility] [address] [place], [place] [address]Dr. Idania Tai MCHC (RBC) [Mass/Vol] 33.5 g/dL Normal 29.9-35.2 [facility] Comment on above: Performed By: #### C BC ####[facility] [address] [place], [place] [address]DrAlly Tai MCV (RBC) [Entitic vol] 86.4 fL Normal 80.0-94.0 [facility] Comment on above: Performed By: #### C BC ####[facility] [address] [place], [place] [address]Dr. Idania Tai MONO # 0.6 103/ul Normal 0.3-0.8 [facility] Comment on above: Performed By: #### C BC ####[facility] [address] [place], [place] [address]Dr. Idania Tai Monocytes/100 WBC (Bld) 6.4 % Normal 1.7-12.0 [facility] Comment on above: Performed By: #### C BC ####[facility] [address] [place], [place] [address]Dr. Idania Tai NEUT # 5.3 103/ul Normal 1.4-6.5 [facility] Comment on above: Performed By: #### C BC ####[facility] [address] [address]Dr. Idania Tai Neutrophils/100 WBC (Bld) 61.4 % Normal 43.0-75.0 [facility] Comment on above: Performed By: #### C BC ####[facility] [address] [address]Dr. Idania Tai Platelet mean volume (Bld) [Entitic vol] 9.7 fL Normal 9.5-13.5 [facility] Comment on above: Performed By: #### C BC ####[facility] [address] [address]Dr. Idania Tai PLT 219 103/ul Normal 150-450 [facility] Comment on above: Performed By: #### C BC ####[facility] [address] [place], [place] [address]Dr. Idania Tai RBC 5.15 106/ul Normal 4.70-6.10 [facility] Comment on above: Performed By: #### C BC ####[facility] [address] [place], [place] [address]Dr. Idania Tai WBC 8.6 103/ul Normal 4.0-11.0 [facility] Comment on above: Performed By: #### C BC ####[facility] [address] [place], [place] [address]Dr. Idania Tai GLYCOHEMOGLOBIN A1Con 2021 ADA RECOMMENDATION ADA THERAPEUTIC TARGET 6.0 - 7.0 ACTION SUGGESTED > 7.0 Normal [facility] Comment on above: Performed By: #### A 1C ####[facility] [address] [place], [place] [address]DrAlly Idania Tai Glucose [Mass/Vol] 128 mg/dL Normal [facility] Comment on above: Performed By: #### A 1C ####[facility] [address] [address]DrAlly Idania Tai HbA1c (Bld) [Mass fraction] 6.1 % Critically high <=6.0 [facility] Comment on above: Performed By: #### A 1C ####[facility] [address] [place], [place] [address]LgDr. Idania Tai LIPID PROFILEon 09-11-2021 CHOL-HDL RATIO NORM SEE BELOW Normal [facility] Comment on above: Result Comment: 3.3 - 4.4 LOW RISK 4.4 - 7.1 AVERAGE RISK 7.1 - 11.0 MODERATE RISK >11.0 HIGH RISK Performed By: #### L IPID, CMP #### [facility] [address] [place], [place] [address] Dr. Idania Tai Cholesterol [Mass/Vol] 175 mg/dL Normal <=200 [facility] Comment on above: Performed By: #### L IPID, CMP #### [facility] [address] [place], [place] [address] Dr. Idania Tai Cholesterol in HDL [Mass/Vol] 54 mg/dL Normal 40-60 [facility] Comment on above: Performed By: #### L IPID, CMP #### [facility] [address] [place], [place] [address] Dr. Idania Tai Cholesterol in LDL [Mass/Vol] 87.2 mg/dL Normal [facility] Comment on above: Performed By: #### L IPID, CMP #### [facility] [address] [place], [place] [address] Dr. Idania Tai Cholesterol.total/Choles terol in HDL [Mass ratio] 3.2 {ratio} Normal [facility] Comment on above: Performed By: #### L IPID, CMP #### [facility] [address] [place], [place] [address] Dr. Idania Tai HDL NORMAL > or = 60 mg/dl - LOW CARDIOVASCULAR RISK <40 mg/dl - HIGH CARDIOVASCULAR RISK Normal [facility] Comment on above: Performed By: #### L IPID, CMP #### [facility] [address] [place], [place] [address] Dr. Idania Tai LDL CALC NORMAL SEE BELOW Normal [facility] Comment on above: Result Comment: <100 mg/dl OPTIMAL 100 - 129 mg/dl NEAR OR ABOVE OPTIMAL 130 - 159 mg/dl BORDERLINE HIGH 160 - 189 mg/dl HIGH >190 mg/dl VERY HIGH Performed By: #### L IPID, CMP #### [facility] [address] [address] [address] Idania Tai Triglyceride [Mass/Vol] 169 mg/dL Critically high <=150 [facility] Comment on above: Performed By: #### L IPID, CMP #### [facility] [address] [address] [address] Idania Tai VLDL CALC 33.8 mg/dL Normal [facility] Comment on above: Performed By: #### L IPID, CMP #### [facility] [address] [place] [address] Dr. Idania Tai MICROALBUMIN, RAND URon 04- mALB 1.9 mg/L Normal <=30.0 [facility] Comment on above: Performed By: #### M ALBR #### [facility] [address] [place] [address] Dr. Idania Tai PROF 14(COMP METB)on 022 Albumin [Mass/Vol] 3.7 g/dL Normal 3.4-5.0 [facility] Comment on above: Performed By: #### L IPID, CMP #### [facility] [address] [place] [address] Dr. Idania Tai Albumin/Globulin [Mass ratio] 0.9 {ratio} Normal [facility] Comment on above: Performed By: #### L IPID, CMP #### [facility] [address] [place] [address] Dr. Idania Tai ALP [Catalytic activity/Vol] 73 U/L Normal 46-116 [facility] Comment on above: Performed By: #### L IPID, CMP #### [facility] [address] [place] [address] Dr. Idania Tai ALT [Catalytic activity/Vol] 68 U/L Critically high 16-63 [facility] Comment on above: Performed By: #### L IPID, CMP #### [facility] [address] [address] [address] Idania Tai Anion gap [Moles/Vol] 10.2 mmol/L Normal Th [facility] Comment on above: Performed By: #### L IPID, CMP #### [facility] [address] [address] [address] Idania Tai AST [Catalytic activity/Vol] 30 U/L Normal 15-37 [facility] Comment on above: Performed By: #### L IPID, CMP #### [facility] [address] [address] [address] Idania Tai Bilirubin [Mass/Vol] 1.0 mg/dL Normal 0.2-1.3 [facility] Comment on above: Performed By: #### L IPID, CMP #### [facility] [address] [place] [address] Dr. Idania Tai Calcium [Mass/Vol] 8.5 mg/dL Normal 8.5-10.1 [facility] Comment on above: Performed By: #### L IPID, CMP #### [facility] [address] [address] [address] Idania Tai Chloride [Moles/Vol] 101 mmol/L Normal 98-107 [facility] Comment on above: Performed By: #### L IPID, CMP #### [facility] [address] [address] [address] Idania Tai CO2 [Moles/Vol] 31.6 mmol/L Critically high 22.0-30.0 [facility] Comment on above: Performed By: #### L IPID, CMP #### [facility] [address] [address] [address] Idania Tai Creatinine [Mass/Vol] 0.67 mg/dL Normal 0.66-1.25 [facility] Comment on above: Performed By: #### L IPID, CMP #### [facility] [address] [address] [address] Idania Tai EGFR-AF SIERRA LEONEAN >60 Normal >=60 [facility] Comment on above: Performed By: #### L IPID, CMP #### [facility] [address] [address] [address] Idania Tai EGFR-NON AF SIERRA LEONEAN >60 Normal >=60 [facility] Comment on above: Performed By: #### L IPID, CMP #### [facility] [address] [address] [address] Idania Tai Globulin (S) [Mass/Vol] 4.0 g/dL Normal [facility] Comment on above: Performed By: #### L IPID, CMP #### [facility] [address] [address] [address] Idania Tai Glucose [Mass/Vol] 114 mg/dL Critically high 74-106 [facility] Comment on above: Performed By: #### L IPID, CMP #### [facility] [address] [place] [address] Dr. Idania Tai Potassium [Moles/Vol] 4.8 mmol/L Normal 3.4-5.0 [facility] Comment on above: Performed By: #### L IPID, CMP #### [facility] [address] [address] [address] Idania Tai Protein [Mass/Vol] 7.7 g/dL Normal 6.1-8.2 [facility] Comment on above: Performed By: #### L IPID, CMP #### [facility] [address] [place] [address] Dr. Idania Tai Sodium [Moles/Vol] 138 mmol/L Normal 137-145 [facility] Comment on above: Performed By: #### L IPID, CMP #### [facility] [address] [address] [address] Idania Tai Urea nitrogen [Mass/Vol] 12.0 mg/dL Normal 7.0-18.0 [facility] Comment on above: Performed By: #### L IPID, CMP #### [facility] [address] [place] [address] Dr. Idania Tai Urea nitrogen/Creatinine [Mass ratio] 17.9 mg/mg Normal [facility] Comment on above: Performed By: #### L IPID, CMP #### [facility] [address] [address] [address] Idania Tai Social History Date Type Detail Facility Start: 12-22-2021 End: 09-10-2022 Tobacco smoking status NHIS Ex-smoker (finding) [facility] Start: 1965 Sex Assigned At Male F [facility] Vital Signs Date Time Vital Sign Value Performing Clinician Faci lity 09-10-2022 13:15-0400 Diastolic blood pressure 64 mm[Hg] MD Shaikh Baker Work Phone: [facility] 09-10-2022 13:15-0400 Heart rate 54 /min MD Shaikh Baker Work Phone: [facility] 09-10-2022 13:15-0400 Respiratory rate 16 /min MD Shaikh Baker Work Phone: [facility] 09-10-2022 13:15-0400 SaO2% (BldA) [Mass fraction] 97 % MD Shaikh Baker Work Phone: [facility] 09-10-2022 13:15-0400 Systolic blood pressure 100 mm[Hg] MD Shaikh Baker Work Phone: [facility] 09-10-2022 12:25-0400 Body temperature 97.5 [degF] MD Shaikh Baker Work Phone: [facility] 09-10-2022 11:55-0400 Inhaled oxygen flow rate 8 L/min MD Shaikh Baker Work Phone: [facility] 09-10-2022 10:54-0400 Body height 165.1 cm MD Shaikh Baker Work Phone: [facility] 09-10-2022 10:54-0400 Body mass index (BMI) [Ratio] 38.6 kg/m2 MD Shaikh Baker Work Phone: [facility] 09-10-2022 10:54-0400 Body weight 105.4 kg MD Shaikh Baker Work Phone: [facility] 12-22-2021 10:00-0400 Diastolic blood pressure 87 mm[Hg] MD Sav Andrews Work Phone: [facility] 12-22-2021 10:00-0400 Heart rate 54 /min MD Sav Andrews Work Phone: [facility] 12-22-2021 10:00-0400 Respiratory rate 18 /min MD Sav Andrews Work Phone: [facility] 12-22-2021 10:00-0400 SaO2% (BldA) [Mass fraction] 100 % MD Sav Andrews Work Phone: [facility] 12-22-2021 10:00-0400 Systolic blood pressure 139 mm[Hg] MD Sav Andrews Work Phone: [facility] 12-22-2021 07:37-0400 Body height 170.18 cm MD Sav Andrews Work Phone: [facility] 12-22-2021 07:37-0400 Body temperature 97.9 [degF] MD Sav Andresw Work Phone: [facility] 12-22-2021 07:37-0400 Body weight 81.64 kg MD Sav Andrews Work Phone: [facility] Procedure note 12-22-2021 Note Date & Type Note Facility 12-22-2021 Procedure note [facility] Clinical Note 10-26-2021 Note Date & Type [...] authenticated by: MICHELLE IBRAHIM Date: 2021-10-26 08:54 [facility] Clinical Note 09-05-2021 Note Date & Type [...] authenticated by: GERA BLUM Date: 2021-09-05 15:22 [facility] Evaluation note Note Date & Type Note Facility Evaluation note No assessment information availa [facility] Work Phone: History and physical note Note Date & Type Note Facility History and physical note Note Date/Time December 22, 2021 9:32 am [facility] [address] [place] [address] Gastroenterology H&P Signed Patient: Lavern Escobedo MR #: [id number] : 1965 Acct:[id number] Age/Sex: 56 / M Adm Date: 2 Loc: Room: Type: [facility] Attending Dr: Sav Andrews MD [...] <Electronically signed by Sav Andrews MD> 12/22/21931 [facility] Work Phone: Chief Complaint and Reason for [...] content) DATE CREATED AUTHOR 07/14/2022 [facility] DATE CREATED AUTHOR AUTHOR'S ORGANIZ ATION 10/02/2022 [facility] DATE CREATED AUTHOR AUTHOR'S ORGANIZ ATION 09/17/2023 [facility] EPIC Goals (unrecognized section [...] BE BASED ON THE PRIMARY CLINICAL RECORDS. [employer] provides no warranty or guarantee of the accuracy or completeness of information in this document.
[2023-10-19 10:12] LABS: Anion Gap 14.3; BUN Creatinine Ratio 20.2; Calcium 8.8 mg/dL (8.5-10.1); Carbon Dioxide 26.6 mmol/L (21.0-32.0); Chloride 100 mmol/L (98-107); Estimated GFR (African America >60 (>=60); Estimated GFR (Non-African Ame >60 (>=60); Glucose 224 mg/dL (74-106); Potassium 4.9 mmol/L (3.5-5.1); Sodium 136 mmol/L (136-145)
== END 2023-10-19 08:58 | disposition home or self-care (01) ==
LOC: LAB 08:59
PROVIDERS: PCP Internal Medicine; Visit Provider Internal Medicine
DX: I1A.0 Resistant hypertension (principal)
CPT/HCPCS: 36415; 80048

== ENCOUNTER 2023-10-22 14:51 | Outpatient (OUT) | payer BC, SELFPAY ==
--- NOTE | 2023-10-22 | XR_ITS ---
[address] [address] Patient Name: LAVERN GARCIA MRN: [id number] date: 1965 Sex: M Assigned Patient Location: Current Patient Location: Accession/Order Number: [id number] Exam Date: 10/22/2023 15:17 Report Date: 10/23/2023 07:35 At the request of: REY ALCARAZ Procedure: XR ankle RT min 3V PROCEDURE: XR ankle RT min 3V COMPARISON: 09/10/2023 HISTORY: RIGHT ANKLE PAIN FINDINGS: BONES:Stable ankle fusion with talus spacer. No acute fracture, dislocation or mechanical failure. Degenerative changes of the midfoot hindfoot junction with joint space narrowing. Heterotopic bone. SOFT TISSUES:Mild diffuse soft tissue swelling, stable EFFUSION:None visible. OTHER: Negative. XR/XR ankle RT min 3V IMPRESSION: Stable ankle fusion with no mechanical failure Electronically authenticated by: GERA BLUM Date: 10/23/2023 07:35
--- OUTSIDE RECORDS SUMMARY | 2023-10-22 15:03 | XMS_ITS | CCD ---
Author Organization [facility] Care Team Providers Care Marketing Sales Representative Name Role Phone MD Sav Andrews Attending [...] Care Unavailable FAWWAD, ANGELO H Consulting Unavailable SWEETIEWAD, ANGELO H Attending Unavailable REY ALCARAZ Attending Unavailable REY ALCARAZ Admitting Unavailable FAWWAD, ANGELO H Primary Care Unavailable DR MICHELLE IBRAHIM Consulting Unavailable REY ALCARAZ Consulting Unavailable REY ALCARAZ Admitting Unavailable KULWANT, DR GERA Kwan Consulting Unavailable REY ALCARAZ Attending Unavailable SERENAWWAD, ANGELO H Primary Care Unavailable REY ALCARAZ Consulting Unavailable FAWWAD, ANGELO H Admitting Unavailable FAWWAD, ANGELO H Primary Care Unavailable FAWWAD, ANGELO H Consulting Unavailable FAWWACecile, ANGELO H Attending Unavailable FAWWAD, ANGELO H Primary Care Unavailable FAWWAD, ANGELO H Consulting Unavailable SAMUEL, ANGELO H Attending Unavailable SAMUEL, ANGELO H Admitting Unavailable MD Deana Baker Primary Care Provider DO Silver Briceño Attending Provider [phone] Sav Andrews Attending Unavailable Sav Andrews Admitting Unavailable Shaikh Baker Primary Care Unavailable Silver Briceño Attending Unavailable Silver Briceño Admitting Unavailable Shaikh Baker Primary Care Unavailable Sav Andrews Admitting Unavailable Sav Andrews Attending Unavailable Silver Briceño Attending Unavailable Silver Briceño Admitting Unavailable Shaikh Baker Primary Care Unavailable SHAIKH BAKER Attending Unavailable SHAIK BAKERH Attending Unavailable Medications Current Medications Medication Drug Class(es) Dates Sig (Normalized) Sig (Original) [id number] 200 actuat albuterol 0.09 mg/actuat metered dose [...] MG PO Daily December 22, 2021 12:00am [place] 8-Nep-Eij-Fish Oil (Fish Oil) 1,200 (144-216) mg Capsule (4 sources) Start: 12-22-2021 take 1 capsule by mouth twice daily [place] 7-Pvj-Enz-Fish Oil (Fish Oil) 1,200 (144-216) mg Capsule [...] Briceño on 09-10-2022 Glucose [Mass/Vol] 137 mg/dL [facility] Comment on above: Random Glucose Refer ence Range is dependent on time and content of last meal. Glucose of more than 200 mg/dL in a nonstressed, ambulatory subject supports the diagnosis of Diabetes Mellitus. Glucose [Mass/Vol] 131 mg/dL [facility] Comment on above: Random Glucose Refer ence Range is dependent on time and content of last meal. Glucose of more than 200 mg/dL in a nonstressed, ambulatory subject supports the diagnosis of Diabetes Mellitus. Glucose Poct Glucometerson 0 09-10-2022 Glucose [Mass/Vol] 137 mg/dL Normal [facility] Comment on above: Result Comment: [facility] Glucose Reference Range is dependent on time and content of last meal. Glucose of more than 200 mg/dL in a nonstressed, ambulatory subject supports the diagnosis of Diabetes Mellitus. PERFORMED BY: [place] [address] PATHOLOGIST TEST AUTOMATION ARCHITECT TEOFILO KHAN M.D. Performed By: #### G LULS #### Point of Care testing , Glucose [Mass/Vol] 131 mg/dL Normal [facility] Comment on above: Result Comment: [facility] Glucose Reference Range is dependent on time and content of last meal. Glucose of more than 200 mg/dL in a nonstressed, ambulatory subject supports the diagnosis of Diabetes Mellitus. PERFORMED BY: [place] [address] PATHOLOGIST TEST AUTOMATION ARCHITECT TEOFILO KHAN M.D. Performed By: #### G LULS #### Point of Care testing , Basic Metabolic Panelon 04-0 Anion gap [Moles/Vol] 13.5 mmol/L Normal 6.0-15.0 [facility] Comment on above: Performed By: #### C BC, BMP #### [address] Calcium [Mass/Vol] 9.4 mg/dL Normal 8.6-10.3 [facility] Comment on above: Result Comment: PERF ORMED BY: [place] [address] PATHOLOGIST TEST AUTOMATION ARCHITECT TEOFILO KHAN M.D. Performed By: #### C BC, BMP #### [place] [address] [place] Chloride [Moles/Vol] 102 mmol/L Normal 98-107 [facility] Comment on above: Performed By: #### C BC, BMP #### [address] CO2 [Moles/Vol] 28.5 mmol/L Normal 21.0-31.[address] [facility] Comment on above: Performed By: #### C BC, BMP #### [address] Creatinine [Mass/Vol] 0.99 mg/dL Normal 0.70-1.30 [facility] Comment on above: Performed By: #### C BC, BMP #### [place] [address] [place] GFR/1.73 sq M.predicted MDRD (S/P/Bld) [Vol rate/Area] mL/min/{1.73_m2} Normal [facility] Comment on above: Performed By: #### C BC, BMP #### [place] [address] [place] Glucose [Mass/Vol] 114 mg/dL High 70-100 [facility] Comment on above: Result Comment: [place] Glucose Reference Range is dependent on time and content of last meal. Glucose of more than 200 mg/dL in a nonstressed, ambulatory subject supports the diagnosis of Diabetes Mellitus. ADA recommended reference range Performed By: #### C BC, BMP #### [place] [address] [place] Potassium [Moles/Vol] 4.0 mmol/L Normal 3.5-5.1 [facility] Comment on above: Performed By: #### C BC, BMP #### [facility] [address] Sodium [Moles/Vol] 140 mmol/L Normal 136-145 [facility] Comment on above: Performed By: #### C BC, BMP #### [facility] [address] Urea nitrogen [Mass/Vol] 21 mg/dL Normal 7-25 [facility] Comment on above: Performed By: #### C BC, BMP #### [facility] [address] Basophils Auto (Bld) [#/Vol] Ordered By: Silver Briceño on 08-30-2022 Basophils (Bld) [#/Vol] 0.0 10*3/uL 0.0-0.2 [facility] Basophils/100 WBC Auto (Bld) Ordered By: Silver Briceño on 08-30-2022 Basophils/100 WBC (Bld) 0.7 % . [facility] Calcium [Mass/volume] in Ser um or PlasmaOrdered By: Silver Briceño on 08-30-2022 Calcium [Mass/Vol] 9.4 mg/dL 8.6-10.3 [facility] Carbon dioxide, total [Moles /volume] in Serum or PlasmaOrdered By: Silver Briceño on 08-30-2022 CO2 [Moles/Vol] 28.5 mmol/L 21.0-31.[address] [facility] Chloride [Moles/volume] in S gela or PlasmaOrdered By: Silver Briceño on 08-30-2022 Chloride [Moles/Vol] 102 mmol/L 98-107 [facility] Complete Blood Count Auto Di ffon 08-30-2022 Basophils (Bld) [#/Vol] 0.0 10*3/uL Normal 0.0-0.2 [facility] Comment on above: Result Comment: PERF ORMED BY: [facility] [address] [facility] [place] [id number] PATHOLOGIST TEST AUTOMATION ARCHITECT TEOFILO KHAN M.D. Performed By: #### C BC, BMP #### [facility] [address] [place] [address] [place] Basophils/100 WBC (Bld) 0.7 % Normal . [facility] Comment on above: Performed By: #### C BC, BMP #### [facility] [address] Eosinophils (Bld) [#/Vol] 0.3 10*3/uL Normal 0.0-0.45 [facility] Comment on above: Performed By: #### C BC, BMP #### [facility] [address] Eosinophils/100 WBC (Bld) 6.1 % Normal . [facility] Comment on above: Performed By: #### C BC, BMP #### [address] Erythrocyte distribution width (RBC) [Ratio] 14.5 % Normal 12.0-14.8 [facility] Comment on above: Performed By: #### C BC, BMP #### [address] Hematocrit (Bld) [Volume fraction] 36.5 % Low 38.8-50.0 [facility] Comment on above: Performed By: #### C BC, BMP #### [address] Hemoglobin (Bld) [Mass/Vol] 12.5 g/dL Low 13.0-17.0 [facility] Comment on above: Performed By: #### C BC, BMP #### [facility] [address] [place] [address] [place] Lymphocytes (Bld) [#/Vol] 1.8 10*3/uL Normal 1.00-4.8 [facility] Comment on above: Performed By: #### C BC, BMP #### [facility] [address] Lymphocytes/100 WBC (Bld) 35.5 % Normal . [facility] Comment on above: Performed By: #### C BC, BMP #### [facility] [address] MCH (RBC) [Entitic mass] 29.2 pg Normal 27.5-35.2 [facility] Comment on above: Performed By: #### C BC, BMP #### [facility] [address] MCV (RBC) [Entitic vol] 85.1 fL Normal 83.5-101 [facility] Comment on above: Performed By: #### C BC, BMP #### [facility] [address] Mean Corpuscular HGB Conc 34.3 g/dL Normal 32.5-35.6 [facility] Comment on above: Performed By: #### C BC, BMP #### [address] Monocytes (Bld) [#/Vol] 0.4 10*3/uL Normal 0.0-0.8 [facility] Comment on above: Performed By: #### C BC, BMP #### [facility] [address] [place] [address] [place] Monocytes/100 WBC (Bld) 8.2 % Normal . [facility] Comment on above: Performed By: #### C BC, BMP #### [address] Neutrophils (Bld) [#/Vol] 2.5 10*3/uL Normal 1.8-7.7 [facility] Comment on above: Performed By: #### C BC, BMP #### [facility] [address] [place] [address] [place] Neutrophils/100 WBC (Bld) 49.5 % Normal . [facility] Comment on above: Performed By: #### C BC, BMP #### [facility] [address] NRBC% 0.2 /100{WBC} Normal 0-0.5 [facility] Comment on above: Performed By: #### C BC, BMP #### [address] [place] [address] [place] Platelet mean volume (Bld) [Entitic vol] 8.8 fL Normal 6.6-10.1 [facility] Comment on above: Performed By: #### C SAI, BMP #### [facility] [address] [place] [id number] [place] Platelets (Bld) [#/Vol] 155 10*3/uL Normal 150-450 [facility] Comment on above: Performed By: #### C SAI, BMP #### [facility] [address] [place] [address] [place] RBC (Bld) [#/Vol] 4.29 10*6/uL Normal 3.90-5.60 [facility] Comment on above: Performed By: #### C SAI, BMP #### [facility] [address] [place] [address] [place] WBC (Bld) [#/Vol] 5.1 10*3/uL Normal 4.1-10.5 [facility] Comment on above: Performed By: #### C SAI, BMP #### [facility] [address] Creatinine [Mass/volume] in Serum or PlasmaOrdered By: Silver Briceño on 08-30-2022 Creatinine [Mass/Vol] 0.99 mg/dL 0.70-1.30 [facility] ECG 12 lead ECGon 08-30-2022 ECG 12 lead ECG [facility] [place] [address] [place] [address] Electrocardiograph Report Signed Patient: Lavern Escobedo MR#: [id number] : 1965 Acct:[id number] Age/Sex: 57 / M ADM Date: 08/30/22 Loc: Room: Type: [facility] Attending Dr: Silver Briceño DO Ordering Provider: [...] previous ECGs available Confirmed by KATE GUPTA [id number] on 08/31/2022 12:23:25 PM Referred By: FREDDY Electronically Signed By:LEANNA LOVE MD [facility] Transcribed By: MUS Signed By Leo Love MD 08/31/22 1223 Normal [facility] Eosinophils Auto (Bld) [#/Vo l]Ordered By: Silver Briceño on 08-30-2022 Eosinophils (Bld) [#/Vol] 0.3 10*3/uL 0.0-0.45 [facility] Eosinophils/100 WBC Auto (Bl d)Ordered By: Silver Briceño on 08-30-2022 Eosinophils/100 WBC (Bld) 6.1 % . [facility] Erythrocyte distribution wid th Auto (RBC) [Ratio]Ordered By: Silver Briceño on 08-30-2022 Erythrocyte distribution width (RBC) [Ratio] 14.5 % 12.0-14.8 [facility] Glucose [Mass/volume] in Ser um or PlasmaOrdered By: Silver Briceño on 08-30-2022 Glucose [Mass/Vol] 114 mg/dL 70-100 [facility] Comment on above: ADA recommended refe rence rangeRandom Glucose Reference Range is dependent on time and content of last meal. Glucose of more than 200 mg/dL in a nonstressed, ambulatory subject supports the diagnosis of Diabetes Mellitus. Hematocrit Auto (Bld) [Volum e fraction]Ordered By: Silver Briceño on 08-30-2022 Hematocrit (Bld) [Volume fraction] 36.5 % 38.8-50.0 [facility] Hemoglobin [Mass/volume] in BloodOrdered By: Silver Briceño on 08-30-2022 Hemoglobin (Bld) [Mass/Vol] 12.5 g/dL 13.0-17.0 [facility] Leukocytes [#/volume] correc shashi for nucleated erythrocytes in Blood by Automated counOrdered By: Silver Briceño on 08-30-2022 WBC corrected for nucl RBC Auto (Bld) [#/Vol] 5.1 10*3/uL 4.1-10.5 [facility] Lymphocytes Auto (Bld) [#/Vo l]Ordered By: Silver Briceño on 08-30-2022 Lymphocytes (Bld) [#/Vol] 1.8 10*3/uL 1.00-4.8 [facility] Lymphocytes/100 WBC Auto (Bl d)Ordered By: Silver Briceño on 08-30-2022 Lymphocytes/100 WBC (Bld) 35.5 % . [facility] MCH Auto (RBC) [Entitic mass ]Ordered By: Silver Briceño on 08-30-2022 MCH (RBC) [Entitic mass] 29.2 pg 27.5-35.2 [facility] MCHC Auto (RBC) [Mass/Vol]Or dered By: Silver Briceño on 08-30-2022 MCHC (RBC) [Mass/Vol] 34.3 g/dL 32.5-35.6 [facility] MCV Auto (RBC) [Entitic vol] Ordered By: Silver Briceño on 08-30-2022 MCV (RBC) [Entitic vol] 85.1 fL 83.5-101 [facility] Monocytes Auto (Bld) [#/Vol] Ordered By: Silver Briceño on 08-30-2022 Monocytes (Bld) [#/Vol] 0.4 10*3/uL 0.0-0.8 [facility] Monocytes/100 WBC Auto (Bld) Ordered By: Silver Briceño on 08-30-2022 Monocytes/100 WBC (Bld) 8.2 % . [facility] Neutrophils Auto (Bld) [#/Vo l]Ordered By: Silver Briceño on 08-30-2022 Neutrophils (Bld) [#/Vol] 2.5 10*3/uL 1.8-7.7 [facility] Neutrophils/100 WBC Auto (Bl d)Ordered By: Silver Briceño on 08-30-2022 Neutrophils/100 WBC (Bld) 49.5 % . [facility] No Panel InformationOrdered By: Silver Briceño on 08-30-2022 Estimated GFR (CKD-EPI) > 60.0 mL/Min [facility] Creatinine Clearance (Chem N/A [facility] Nucleated erythrocytes [Pres ence] in Blood by Automated countOrdered By: Silver Briceño on 08-30-2022 Nucleated RBC Auto Ql (Bld) 0.2 /100{WBC} 0-0.5 [facility] Platelet mean volume Auto (B ld) [Entitic vol]Ordered By: Silver Briceño on 08-30-2022 Platelet mean volume (Bld) [Entitic vol] 8.8 fL 6.6-10.1 [facility] Platelets Auto (Bld) [#/Vol] Ordered By: Silver Briceño on 08-30-2022 Platelets (Bld) [#/Vol] 155 10*3/uL 150-450 [facility] Potassium [Moles/volume] in Serum or PlasmaOrdered By: Silver Briceño on 08-30-2022 Potassium [Moles/Vol] 4.0 mmol/L 3.5-5.1 [facility] RBC Auto (Bld) [#/Vol]Ordere d By: Silver Briceño on 08-30-2022 RBC (Bld) [#/Vol] 4.29 10*6/uL 3.90-5.60 [facility] Serum or plasma anion gap de terminationOrdered By: Silver Briceño on 08-30-2022 Anion gap [Moles/Vol] 13.5 mmol/L 6.0-15.0 [facility] Sodium [Moles/volume] in Ser um or PlasmaOrdered By: Silver Briceño on 08-30-2022 Sodium [Moles/Vol] 140 mmol/L 136-145 [facility] Urea nitrogen [Mass/volume] in Serum or PlasmaOrdered By: Silver Briceño on 08-30-2022 Urea nitrogen [Mass/Vol] 21 mg/dL 7-25 [facility] WBC Auto (Bld) [#/Vol]Ordere d By: Silver Briceño on 08-30-2022 WBC (Bld) [#/Vol] 5.1 10*3/uL 4.1-10.5 [facility] GLYCOHEMOGLOBIN A1Con 2022 ADA RECOMMENDATION SEE BELOW Normal [facility] Comment on above: Result Comment: ADA RECOMMENDED LIMIT 4.0 - 6.0 ADA THERAPEUTIC TARGET < 7.0 ACTION SUGGESTED > 7.0 Performed By: #### A 1C #### [facility] [address] [place] [address] Dr. Idania Tai Glucose [Mass/Vol] 243 mg/dL Normal [facility] Comment on above: Performed By: #### A 1C #### [facility] [address] [place] [address] Dr. Idania Tai HbA1c (Bld) [Mass fraction] 10.1 % Critically high 4.5-6.2 [facility] Comment on above: Performed By: #### A 1C #### [facility] [address] [place] [address] Dr. Idania Tai LIPID PROFILEon 07-07-2022 CHOL-HDL RATIO NORM SEE BELOW Normal [facility] Comment on above: Result Comment: 3.3 - 4.4 LOW RISK 4.4 - 7.1 AVERAGE RISK 7.1 - 11.0 MODERATE RISK >11.0 HIGH RISK Performed By: #### B MP, LIPID #### [facility] [address] [place] [address] Dr. Idania Tai Cholesterol [Mass/Vol] 172 mg/dL Normal <=200 Th [facility] Comment on above: Performed By: #### B MP, LIPID #### [facility] [address] [place] [address] Dr. Idania Tai Cholesterol in HDL [Mass/Vol] 48 mg/dL Normal 40-60 [facility] Comment on above: Performed By: #### B MP, LIPID #### [facility] [address] [place] [address] Dr. Idania Tai Cholesterol in LDL [Mass/Vol] 95.6 mg/dL Normal [facility] Comment on above: Performed By: #### B MP, LIPID #### [facility] [address] [place] [address] Dr. Idania Tai Cholesterol.total/Choles terol in HDL [Mass ratio] 3.6 {ratio} Normal [facility] Comment on above: Performed By: #### B MP, LIPID #### [facility] [address] [place] [address] [address] Idania Tai HDL NORMAL > or = 60 mg/dl - LOW CARDIOVASCULAR RISK <40 mg/dl - HIGH CARDIOVASCULAR RISK Normal [facility] Comment on above: Performed By: #### B MP, LIPID #### [facility] [address] [place] [address] [address] Idania Tai LDL CALC NORMAL SEE BELOW Normal [facility] Comment on above: Result Comment: <100 mg/dl OPTIMAL 100 - 129 mg/dl NEAR OR ABOVE OPTIMAL 130 - 159 mg/dl BORDERLINE HIGH 160 - 189 mg/dl HIGH >190 mg/dl VERY HIGH Performed By: #### B MP, LIPID #### [facility] [address] [place] [address] [address] Idania Tai Triglyceride [Mass/Vol] 142 mg/dL Normal <=150 [facility] Comment on above: Performed By: #### B MP, LIPID #### [facility] [address] [place] [address] [address] Idania Tai VLDL CALC 28.4 mg/dL Normal [facility] Comment on above: Performed By: #### B MP, LIPID #### [facility] [address] [place] [address] [address] Idania Tai PROF CHEM 8 (BAS METB)on Anion gap [Moles/Vol] 11.0 mmol/L Normal [facility] Comment on above: Performed By: #### B MP, LIPID #### [facility] [address] [place] [address] [address] Idania Tai Calcium [Mass/Vol] 9.1 mg/dL Normal 8.5-10.1 [facility] Comment on above: Performed By: #### B MP, LIPID #### [facility] [address] [place] [address] [address] Idania Tai Chloride [Moles/Vol] 100 mmol/L Normal 98-107 [facility] Comment on above: Performed By: #### B MP, LIPID #### [facility] [address] [place] [address] [address] Idania Tai CO2 [Moles/Vol] 32.6 mmol/L Critically high 21.0-32.0 [facility] Comment on above: Performed By: #### B MP, LIPID #### [facility] [address] [place] [address] [address] Idania Tai Creatinine [Mass/Vol] 0.81 mg/dL Normal 0.70-1.30 [facility] Comment on above: Performed By: #### B MP, LIPID #### [facility] [address] [place] [address] [address] Idania Tai EGFR-AF [place]TH [place]OREAN >60 Normal >=60 [facility] Comment on above: Performed By: #### B MP, LIPID #### [facility] [address] [place] [address] Dr. Idania Tai EGFR-NON AF [place]OREAN >60 Normal >=60 [facility] Comment on above: Performed By: #### B MP, LIPID #### [facility] [address] [place] [address] Dr. Idania Tai Glucose [Mass/Vol] 157 mg/dL Critically high 74-106 [facility] Comment on above: Performed By: #### B MP, LIPID #### [facility] [address] [place] [address] Dr. Idania Tai Potassium [Moles/Vol] 3.6 mmol/L Normal 3.5-5.1 [facility] Comment on above: Performed By: #### B MP, LIPID #### [facility] [address] [place] [address] Dr. Idania Tai Sodium [Moles/Vol] 140 mmol/L Normal 136-145 [facility] Comment on above: Performed By: #### B MP, LIPID #### [facility] [address] [place] [address] [address] Idania Tai Urea nitrogen [Mass/Vol] 16.0 mg/dL Normal 7.0-18.0 [facility] Comment on above: Performed By: #### B MP, LIPID #### [facility] [address] [place] [address] Dr. Idania Tai Urea nitrogen/Creatinine [Mass ratio] 19.8 mg/mg Normal [facility] Comment on above: Performed By: #### B MP, LIPID #### [facility] [address] [place] [address] Dr. Idania Tai PROF CHEM 8 (BAS METB)on Anion gap [Moles/Vol] 16.1 mmol/L Normal [facility] Comment on above: Performed By: #### B MP #### [facility] [address] [place] [address] Dr. Idania Tai Calcium [Mass/Vol] 9.4 mg/dL Normal 8.5-10.1 [facility] Comment on above: Performed By: #### B MP #### [facility] [address] [place] [address] Dr. Idania Tai Chloride [Moles/Vol] 98 mmol/L Normal 98-107 [facility] Comment on above: Performed By: #### B MP #### [facility] [address] [place] [address] Dr. Idania Tai CO2 [Moles/Vol] 26.0 mmol/L Normal 21.0-32.0 [facility] Comment on above: Performed By: #### B MP #### [facility] [address] [place] [address] Dr. Idania Tai Creatinine [Mass/Vol] 0.78 mg/dL Normal 0.70-1.30 [facility] Comment on above: Performed By: #### B MP #### [facility] [address] [place] [address] Dr. Idania Tai EGFR-AF [place]ORE[place] >60 Normal >=60 [facility] Comment on above: Performed By: #### B MP #### [facility] [address] [place] [address] Dr. Idania Tai EGFR-NON AF [place] >60 Normal >=60 [facility] Comment on above: Performed By: #### B MP #### [facility] [address] [place] [address] Dr. Idania Tai Glucose [Mass/Vol] 131 mg/dL Critically high 74-106 T [facility] Comment on above: Performed By: #### B MP #### [facility] [address] [place] [address] [address] Idania Tai Potassium [Moles/Vol] 4.1 mmol/L Normal 3.5-5.1 [facility] Comment on above: Performed By: #### B MP #### [facility] [address] [place] [address] [address] Idania Tai Sodium [Moles/Vol] 136 mmol/L Normal 136-145 [facility] Comment on above: Performed By: #### B MP #### [facility] [address] [place] [address] [address] Idania Tai Urea nitrogen [Mass/Vol] 19.0 mg/dL Critically high 7.0-18 .0 [facility] Comment on above: Performed By: #### B MP #### [facility] [address] [place] [address] [address] Idania Tai Urea nitrogen/Creatinine [Mass ratio] 24.4 mg/mg Normal [facility] Comment on above: Performed By: #### B MP #### [facility] [address] [place] [address] [address] Idania Tai Glucose Glucometer (dC) [M ass/Vol]Ordered By: Sav Andrews on 12-22-2021 Glucose [Mass/Vol] 113 mg/dL [facility] Comment on above: Random Glucose Refer ence Range is dependent on time and content of last meal. Glucose of more than 200 mg/dL in a nonstressed, ambulatory subject supports the diagnosis of Diabetes Mellitus. Glucose Poct Glucometerson 0 12-22-2021 Glucose [Mass/Vol] 113 mg/dL Normal [facility] Center Comment on above: Result Comment: [place] om Glucose Reference Range is dependent on time and content of last meal. Glucose of more than 200 mg/dL in a nonstressed, ambulatory subject supports the diagnosis of Diabetes Mellitus. PERFORMED BY: [place] [address] [place] [address] PATHOLOGIST TEST AUTOMATION ARCHITECT TEOFILO KHAN M.D. Performed By: #### G [...] developed and its performance characteristic determined by [employer] and validated at [facility]. This test has not been FDA [...] for SARS Antigen by SIN PERFORMED BY: [address] [address] PATHOLOGIST TEST AUTOMATION ARCHITECT TEOFILO KHAN M.D. [facility] Comment on above: Performed By: #### C OVID-19 MAYRA, SOFIANEG #### [address] COVID-19 SOFIAOrdered By: Bebe Andrews on 12-20-2021 SARS-CoV+SARS-CoV-2 (COVID-19) Ag IA.rapid Ql (Resp) Negative Negative [facility] Comment on above: This is a duplicate Mayra SARS Antigen (SIN) result to be used for statistical tracking purpose only. No Panel InformationOrdered By: Sav Andrews on 12-20-2021 SARS Antigen (LFIA) [facility] Mayra Ag Negativeon 12-21-19 22 Mayra Ag Negative Negative Normal Negative [facility] Comment on above: Result Comment: This is a duplicate Mayra SARS Antigen (SIN) result to be used for statistical tracking purpose only. PERFORMED BY: [place] [address] PATHOLOGIST TEST AUTOMATION ARCHITECT TEOFILO KHAN M.D. Performed By: #### C OVID-19 MAYRA, SOFIANEG #### [address] ANKLE RT WO CONon 022 [...] severe tricompartmental osteoarthropathy of the knee with yjet-mb-vldj articulation of the lateral compartment. SOFT TISSUES: Negative. No visible soft tissue swelling. EFFUSION: None visible. OTHER: Negative. IMPRESSION: Progression of subchondral degenerative cystic changes of the tibial plafond and calcaneus Moderate to severe knee osteoarthritis with duqu-qc-tqcp articulation of the lateral compartment Electronically authenticated by: GERA BLUM Date: 2021-11-14 16:32 Normal [facility] CBC AUTO DIFFon 09-11-2021 BASO # 0.1 103/ul Normal 0.0-0.1 [facility] Comment on above: Performed By: #### C BC ####[facility] [address] [place] [id number]. Idania Tai Basophils/100 WBC (Bld) 0.8 % Normal 0.2-2.0 [facility] Comment on above: Performed By: #### C BC ####[facility] G[address]xf[address]xd[address] [place] [id number]. Idania Tai EO # 0.2 103/ul Normal 0.0-0.7 [facility] Comment on above: Performed By: #### C BC ####[facility] [address] [place] [address]Dr. Idania Tai Eosinophils/100 WBC (Bld) 2.2 % Normal 0.9-7.0 [facility] Comment on above: Performed By: #### C BC ####[facility] [address] [place] [address]Dr. Idania Tai Erythrocyte distribution width (RBC) [Ratio] 13.1 % Normal 11.0-15.0 [facility] Comment on above: Performed By: #### C BC ####[facility] Bhcapagwqq3[address] [place] [id number]. Idania Tai Hematocrit (Bld) [Volume fraction] 44.5 % Normal 42.0-54.0 [facility] Comment on above: Performed By: #### C BC ####[facility] Snknxhcopg[address]14 [place] [id number]. Idania Tai Hemoglobin (Bld) [Mass/Vol] 14.9 g/dL Normal 14.0-18.0 [facility] Comment on above: Performed By: #### C BC ####[facility] Ccmbcqmmxz60[address] [place] [id number]. Idania Tai IG # 0.13 10e3/ul Critically high 0.00-0.03 [facility] Comment on above: Performed By: #### C BC ####[facility] Eu[address]yeimg[address] [place] [id number]. Idania Tai IG % 1.5 % Critically high 0.0-0.5 [facility] Comment on above: Performed By: #### C BC ####[facility] Om[address]samhl[address] [place] [id number]. Idania Tai LYMPH # 2.4 103/ul Normal 1.2-3.8 [facility] Comment on above: Performed By: #### C BC ####[facility] [address] [place] [id number]. Idania Tai Lymphocytes/100 WBC (Bld) 27.7 % Normal 20.5-60.0 [facility] Comment on above: Performed By: #### C BC ####[facility] [address] [place] [address]Dr. Idania Tai MANUAL DIFF REQ NO Normal [facility] Comment on above: Performed By: #### C BC ####[facility] Vqkl[address]ncxb39[address] [place] [id number]. Idania Tai MCH (RBC) [Entitic mass] 28.9 pg Normal 25.9-34.0 [facility] Comment on above: Performed By: #### C BC ####[facility] Sinaw[address]ndvr364[address] [place] [id number]. Idania Tai MCHC (RBC) [Mass/Vol] 33.5 g/dL Normal 29.9-35.2 [facility] Comment on above: Performed By: #### C BC ####[facility] [address]pe[address]dv19[address] [place] [id number]. Idania Tai MCV (RBC) [Entitic vol] 86.4 fL Normal 80.0-94.0 [facility] Comment on above: Performed By: #### C BC ####[facility] Eaotlmhyme13[address] [place] [id number]. Idania Zaire MONO # 0.6 103/ul Normal 0.3-0.8 [facility] Comment on above: Performed By: #### C BC ####[facility] Eefyjbyodi4728 [place] [id number]. Idania Tai Monocytes/100 WBC (Bld) 6.4 % Normal 1.7-12.0 [facility] Comment on above: Performed By: #### C BC ####[facility] Eqjrfkhisl8417 [place] [id number]. Idania Tai NEUT # 5.3 103/ul Normal 1.4-6.5 [facility] Comment on above: Performed By: #### C BC ####[facility] L[address]ugsmn7139 [place] [id number]. Idania Tai Neutrophils/100 WBC (Bld) 61.4 % Normal 43.0-75.0 [facility] Comment on above: Performed By: #### C BC ####[facility] [address]tfv[address] [place] [address]Dr. Idania Tai Platelet mean volume (Bld) [Entitic vol] 9.7 fL Normal 9.5-13.5 [facility] Comment on above: Performed By: #### C BC ####[facility] Shqgbgqxvu5622 [place] [id number]. Idania Tai PLT 219 103/ul Normal 150-450 [facility] Comment on above: Performed By: #### C BC ####[facility] Qznqhuxjiq19[address] [place] [phone]. Idania Tai RBC 5.15 106/ul Normal 4.70-6.10 [facility] Comment on above: Performed By: #### C BC ####[facility] [address] [place], [place] [id number]. Idania Tai WBC 8.6 103/ul Normal 4.0-11.0 [facility] Comment on above: Performed By: #### C BC ####[facility] [address] [place] [address]Dr. Idania Tai GLYCOHEMOGLOBIN A1Con 2021 ADA RECOMMENDATION ADA THERAPEUTIC TARGET 6.0 - 7.0 ACTION SUGGESTED > 7.0 Normal [facility] Comment on above: Performed By: #### A 1C ####[facility] [address] [place], [place] [address]FsDr. Idania Tai Glucose [Mass/Vol] 128 mg/dL Normal [facility] Comment on above: Performed By: #### A 1C ####[facility] Ypxyxzjtxb3498 [place], [place] [address]QfDr. Idania Tai HbA1c (Bld) [Mass fraction] 6.1 % Critically high <=6.0 [facility] Comment on above: Performed By: #### A 1C ####[facility] Cbvxsmqrdk9633 [place], [place] [address]NrDr. Idania Tai LIPID PROFILEon 09-11-2021 CHOL-HDL RATIO NORM SEE BELOW Normal [facility] Comment on above: Result Comment: 3.3 - 4.4 LOW RISK 4.4 - 7.1 AVERAGE RISK 7.1 - 11.0 MODERATE RISK >11.0 HIGH RISK Performed By: #### L IPID, CMP #### [facility] [address] [address] [address] Idania Tai Cholesterol [Mass/Vol] 175 mg/dL Normal <=200 [facility] Comment on above: Performed By: #### L IPID, CMP #### [facility] [address] [address] [address] Idania Tai Cholesterol in HDL [Mass/Vol] 54 mg/dL Normal 40-60 [facility] Comment on above: Performed By: #### L IPID, CMP #### [facility] [address] [address] [address] Idania Tai Cholesterol in LDL [Mass/Vol] 87.2 mg/dL Normal [facility] Comment on above: Performed By: #### L IPID, CMP #### [facility] [address] [address] [address] Idania Tai Cholesterol.total/Choles terol in HDL [Mass ratio] 3.2 {ratio} Normal [facility] Comment on above: Performed By: #### L IPID, CMP #### [facility] [address] [address] [address] Idania Tai HDL NORMAL > or = 60 mg/dl - LOW CARDIOVASCULAR RISK <40 mg/dl - HIGH CARDIOVASCULAR RISK Normal [facility] Comment on above: Performed By: #### L IPID, CMP #### [facility] [address] [address] [address] Idania Tai LDL CALC NORMAL SEE BELOW Normal [facility] Comment on above: Result Comment: <100 mg/dl OPTIMAL 100 - 129 mg/dl NEAR OR ABOVE OPTIMAL 130 - 159 mg/dl BORDERLINE HIGH 160 - 189 mg/dl HIGH >190 mg/dl VERY HIGH Performed By: #### L IPID, CMP #### [facility] [address] [address] [address] Idania Tai Triglyceride [Mass/Vol] 169 mg/dL Critically high <=150 [facility] Comment on above: Performed By: #### L IPID, CMP #### [facility] [address] [address] [address] Idania Tai VLDL CALC 33.8 mg/dL Normal [facility] Comment on above: Performed By: #### L IPID, CMP #### [facility] [address] [address] [address] Idania Tai MICROALBUMIN, RAND URon - mALB 1.9 mg/L Normal <=30.0 [facility] Comment on above: Performed By: #### M ALBR #### [facility] [address] [address] [address] Idania Tai PROF 14(COMP METB)on 022 Albumin [Mass/Vol] 3.7 g/dL Normal 3.4-5.0 [facility] Comment on above: Performed By: #### L IPID, CMP #### [facility] [address] [address] [address] Idania Tai Albumin/Globulin [Mass ratio] 0.9 {ratio} Normal [facility] Comment on above: Performed By: #### L IPID, CMP #### [facility] [address] [address] [address] Idania Tai ALP [Catalytic activity/Vol] 73 U/L Normal 46-116 [facility] Comment on above: Performed By: #### L IPID, CMP #### [facility] [address] [address] [address] Idania Tai ALT [Catalytic activity/Vol] 68 U/L Critically high 16-63 [facility] Comment on above: Performed By: #### L IPID, CMP #### [facility] [address] [place] [address] Dr. Idania Tai Anion gap [Moles/Vol] 10.2 mmol/L Normal [facility] Comment on above: Performed By: #### L IPID, CMP #### [facility] [address] [place] [address] Dr. Idania Tai AST [Catalytic activity/Vol] 30 U/L Normal 15-37 [facility] Comment on above: Performed By: #### L IPID, CMP #### [facility] [address] [place] [address] Dr. Idania Tai Bilirubin [Mass/Vol] 1.0 mg/dL Normal 0.2-1.3 [facility] Comment on above: Performed By: #### L IPID, CMP #### [facility] [address] [place] [address] Dr. Idania Tai Calcium [Mass/Vol] 8.5 mg/dL Normal 8.5-10.1 [facility] Comment on above: Performed By: #### L IPID, CMP #### [facility] [address] [place] [address] Dr. Idania Tai Chloride [Moles/Vol] 101 mmol/L Normal 98-107 [facility] Comment on above: Performed By: #### L IPID, CMP #### [facility] [address] [place] [address] Dr. Idania Tai CO2 [Moles/Vol] 31.6 mmol/L Critically high 22.0-30.0 [facility] Comment on above: Performed By: #### L IPID, CMP #### [facility] [address] [place] [address] Dr. Idania Tai Creatinine [Mass/Vol] 0.67 mg/dL Normal 0.66-1.25 [facility] Comment on above: Performed By: #### L IPID, CMP #### [facility] [address] [place] [address] Dr. Idania Tai EGFR-AF [place]TH [place]OREAN >60 Normal >=60 [facility] Comment on above: Performed By: #### L IPID, CMP #### [facility] [address] [address] [address] Idania Tai EGFR-NON AF [place] >60 Normal >=60 [facility] Comment on above: Performed By: #### L IPID, CMP #### [facility] [address] [place] [address] Dr. Idania Tai Globulin (S) [Mass/Vol] 4.0 g/dL Normal [facility] Comment on above: Performed By: #### L IPID, CMP #### [facility] [address] [place] [address] Dr. Idania Tai Glucose [Mass/Vol] 114 mg/dL Critically high 74-106 [facility] Comment on above: Performed By: #### L IPID, CMP #### [facility] [address] [place] [address] Dr. Idania Tai Potassium [Moles/Vol] 4.8 mmol/L Normal 3.4-5.0 [facility] Comment on above: Performed By: #### L IPID, CMP #### [facility] [address] [place] [address] Dr. Idania Tai Protein [Mass/Vol] 7.7 g/dL Normal 6.1-8.2 [facility] Comment on above: Performed By: #### L IPID, CMP #### [facility] [address] [place] [address] Dr. Idania Tai Sodium [Moles/Vol] 138 mmol/L Normal 137-145 [facility] Comment on above: Performed By: #### L IPID, CMP #### [facility] [address] [place] [address] Dr. Idania Tai Urea nitrogen [Mass/Vol] 12.0 mg/dL Normal 7.0-18.0 [facility] Comment on above: Performed By: #### L IPID, CMP #### [facility] [id number] Idania Tai Urea nitrogen/Creatinine [Mass ratio] 17.9 mg/mg Normal [facility] Comment on above: Performed By: #### L IPID, CMP #### [facility] [id number] Idania Tai Vital Signs Date Time Vital Sign Value Performing Clinician Faci lity 09-10-2022 13:15-0400 Diastolic blood pressure 64 mm[Hg] MD Shaikh Baker Work Phone: [facility] 09-10-2022 13:15-0400 Heart rate 54 /min MD Shaikh Baker Work Phone: [facility] 09-10-2022 13:15-0400 Respiratory rate 16 /min MD Shaikh Baker Work Phone: [facility] 09-10-2022 13:15-0400 SaO2% (BldA) [Mass fraction] 97 % MD Shaikh Baker Work Phone: [facility] 09-10-2022 13:15-0400 Systolic blood pressure 100 mm[Hg] MD Shaikh Baker Work Phone: [facility] 09-10-2022 12:25-0400 Body temperature 97.5 [degF] MD Shaikh Baker Work Phone: [facility] 09-10-2022 11:55-0400 Inhaled oxygen flow rate 8 L/min MD Shaikh Baker Work Phone: [facility] 09-10-2022 10:54-0400 Body height 165.1 cm MD Shaikh Baker Work Phone: [facility] 09-10-2022 10:54-0400 Body mass index (BMI) [Ratio] 38.6 kg/m2 MD Shaikh Baker Work Phone: [facility] 09-10-2022 10:54-0400 Body weight 105.4 kg MD Shaikh Baker Work Phone: [facility] 12-22-2021 10:00-0400 Diastolic blood pressure 87 mm[Hg] MD Sav Andrews Work Phone: [facility] 12-22-2021 10:00-0400 Heart rate 54 /min MD Sav Andrews Work Phone: [facility] 12-22-2021 10:00-0400 Respiratory rate 18 /min MD Sav Andrews Work Phone: [facility] 12-22-2021 10:00-0400 SaO2% (BldA) [Mass fraction] 100 % MD Sav Andrews Work Phone: [facility] 12-22-2021 10:00-0400 Systolic blood pressure 139 mm[Hg] MD Sav Andrews Work Phone: [facility] 12-22-2021 07:37-0400 Body height 170.18 cm MD Sav Andrews Work Phone: [facility] 12-22-2021 07:37-0400 Body temperature 97.9 [degF] MD Sav Andrews Work Phone: [facility] 12-22-2021 07:37-0400 Body weight 81.64 kg MD Sav Andrews Work Phone: [facility] Encounters Encounter Date Encounter Type Care Provider Facility Start: 09-16-2023 End: 09-16-2023 ambulatory ANGELO FAWWAD Not Available Start: 08-07-2023 End: 08-07-2023 ambulatory ANGELO FAWWAD Not Available Start: 09-10-2022 End: 09-10-2022 ambulatory Silver Briceño Facility:[facility] Start: 09-10-2022 End: 09-10-2022 Admission to same day surgery center MD Shaikh Baker Work Phone: [facility] [place] Start: 09-10-2022 End: 09-10-2022 ambulatory MD Shaikh Baker Work Phone: [facility] Work Phone: Start: 08-30-2022 End: 08-30-2022 ambulatory Silver Briceño Facility:[facility] Start: 08-30-2022 End: 08-30-2022 ambulatory MD Shaikh Baker Work Phone: [facility] Work Phone: Start: 08-30-2022 End: 08-30-2022 Patient encounter procedure MD Shaikh Baker Work Phone: [facility] Work Phone: Start: 07-07-2022 End: 07-08-2022 ambulatory SHAIKH Adan BAKER Facility:[facility] Start: 03-13-2022 End: 03-14-2022 ambulatory SHAIKH Adan BAKER Facility:[facility] Start: 12-22-2021 End: 12-22-2021 ambulatory Sav Andrews Facility:[facility] Start: 12-22-2021 End: 12-22-2021 Admission to same day surgery center MD Sav Andrews Work Phone: [facility] Start: 12-20-2021 End: 12-20-2021 ambulatory Sav Andrews Facility:[facility] Start: 12-20-2021 End: 12-20-2021 Patient encounter procedure MD Sav Andrews Work Phone: [facility] Start: 11-14-2021 End: 11-15-2021 ambulatory REY ALCARAZ Facility:[facility] Start: 10-25-2021 End: 10-26-2021 ambulatory REY Huber [facility] Facility:[facility] Start: 09-11-2021 End: 09-12-2021 ambulatory SHAIKH [...] Activity Detail Author Start: 09-10-2022 End: 09-10-2022 [facility] Start: 12-22-2021 [facility] Work Phone: Patient Education Hemorrhoids [facility] Work Phone: Immunizations Immunization Date Immunization Notes Care Provider [facility] 10-10-2020 COVID-19 mRNADeonirmichelle (Pfizer) MD Sav Andrews Work Phone: [facility] 09-19-2020 COVID-19 mRNA Comirmichelle (Pfizer) MD Sav Andrews Work Phone: [facility] Payers Date Payer Category Payer Self-pay [id number] 1965 Unknown [id number] 2.16.84 [id number] 1965 Unknown [id number] 2.16.84 [id number] 1966 Unknown [id number] 2.16.84 [id number] 1966 Unknown [id number] 2.16.84 [id number] 1966 Unknown [id number] 2.16.84 [id number] 1966 Unknown [id number] 2.16.84 [id number] 1966 Unknown [id number] 2.16.84 [id number] 1966 Unknown [id number] 2.16.84 [id number] 1966 Unknown [id number] 2.16.84 [id number] 1959 Unknown [id number] Unknown [id number] 2.16.8 [id number] Unknown [id number] 2.16.8 [id number] Unknown [id number] 2.16.8 [id number] Unknown [id number] 2.16.8 [id number] Social History Date Type Detail Facility Start: 12-22-2021 End: 09-10-2022 Tobacco smoking status NHIS Ex-smoker (finding) [facility] Start: 1965 Sex Assigned At Male F [facility] Goals Date Patient Goal Desired Activity /State Procedure note 12-22-2021 Note Date & Type Note Facility 12-22-2021 Procedure note [facility] Clinical Note 10-26-2021 Note [...] authenticated by: MICHELLE IBRAHIM Date: 2021-10-26 08:54 [facility] Clinical Note 09-05-2021 Note Date [...] authenticated by: GERA BLUM Date: 2021-09-05 15:22 [facility] Evaluation note Note Date & Type Note Facility Evaluation note No assessment information availa [facility] Work Phone: History and physical note Note Date & Type Note Facility History and physical note Note Date/Time December 22, 2021 9:32 am [facility] [address] [place] [address] Gastroenterology H&P Signed Patient: Lavern Escobedo MR #: [id number] : 1965 Acct:[id number] Age/Sex: 56 / M Adm Date: 2 Loc: Room: Type: [facility] Attending Dr: Sav Andrews MD [...] Andrews MD Documented By: Sav Andrews MD 12/22/2131 Signed By: <Electronically signed by Sav Andrews MD> 12/22/21931 [facility] Work Phone: Chief Complaint and Reason for [...] and content) DATE CREATED AUTHOR 07/14/2022 [facility] DATE CREATED AUTHOR AUTHOR'S ORGANIZ ATION 10/02/[address] [facility] DATE CREATED AUTHOR AUTHOR'S ORGANIZ ATION 09/17/2023 [facility] EPIC Goals (unrecognized section and [...] BE BASED ON THE PRIMARY CLINICAL RECORDS. [employer] provides no warranty or guarantee of the accuracy or completeness of information in this document.
== END 2023-10-22 14:52 | disposition home or self-care (01) ==
LOC: EC 14:52
PROVIDERS: PCP Internal Medicine; Visit Provider Podiatrist Foot & Ankle Surgery
DX: M25.571 Pain in right ankle and joints of right foot (principal); M24.671 Ankylosis, right ankle
CPT/HCPCS: 73610

== ENCOUNTER 2023-12-14 10:53 | Emergency (ER) | payer BC, SELFPAY ==
[2023-12-14 10:57] VITALS: BP 122/63; PULSE 62; TEMP 36.8; O2SAT 99; BMI 35.4
[2023-12-14 10:59] VITALS: BP 122/63; O2SAT 98
[2023-12-14 11:00] VITALS: O2SAT 98
--- NOTE | 2023-12-14 11:12 | CT_ITS ---
[address] [address] Patient Name: LAVERN GARCIA MRN: [id number] date: 1965 Sex: M Assigned Patient Location: ER Current Patient Location: ED.MAIN Accession/Order Number: [id number] Exam Date: 12/14/2023 11:32 Report Date: 12/14/2023 12:35 At the request of: FLAVIA GARLAND Procedure: CT abdomen pelvis wo con EXAMINATION: CT abdomen pelvis wo con, 12/14/2023 11:32 AM EDT HISTORY: rlq pain COMPARISON: None. TECHNIQUE: CT scan of the abdomen and pelvis was performed without IV contrast. CT dose reduction technique was used, including Automated Exposure Control. FINDINGS: LOWER CHEST: The visualized lungs are clear. LIVER: There is hepatomegaly and diffuse hepatic steatosis. GALLBLADDER AND BILIARY SYSTEM: Unremarkable. SPLEEN: Unremarkable. PANCREAS: Unremarkable. ADRENAL GLANDS: Unremarkable. KIDNEYS AND URETERS: No nephrolithiasis or hydronephrosis. No ureteral calculus. BLADDER: Under distended. GASTROINTESTINAL TRACT: No evidence of bowel obstruction or colitis. Normal appendix. VASCULATURE: The abdominal aorta is normal in caliber. RETROPERITONEUM: No lymphadenopathy. PERITONEUM/MESENTERY: No abdominal ascites. No free air. PELVIS: The prostate is enlarged. Small fat-containing left inguinal hernia. No pelvic ascites or lymphadenopathy. BODY WALL: Tiny fat-containing umbilical hernia. BONES: Multilevel degenerative changes of the lumbar spine. CT/CT abdomen pelvis wo con IMPRESSION: 1. No acute process in the abdomen or pelvis. 2. Fatty liver. 3. Normal appendix. 4. Enlarged prostate. Electronically authenticated by: CRYS HUTCHINSON Date: 12/14/2023 12:35
--- OUTSIDE RECORDS SUMMARY | 2023-12-14 11:15 | XMS_ITS | CCD ---
Author Organization [facility] ion [facility] Care Team Providers Care Cook [place] Name Role Phone MD Sav Andrews Attending Provider MD Deana Baker Primary Care Provider DR ASA AL Attending Unavailable ACACIA JENKINS Primary Care Unavailable DR ASA AL Admitting Unavailable LIZETH MARTIN Attending Unavailable KULWANT, DR GERA Kwan Consulting Unavailable LIZETH MARTIN Admitting Unavailable GREGORY ACACIA TONIO Primary Care Unavailable MARIOLIZETH Consulting Unavailable FAWWAD, ANGELO H Admitting Unavailable FAWWAD, ANGELO H Primary Care Unavailable FAWWAD, ANGELO H Consulting Unavailable SWEETIEWAD, ANGELO H Attending Unavailable REY ALCARAZ Attending Unavailable REY ACLARAZ Admitting Unavailable FAWWAD, ANGELO H Primary Care [...] Primary Care Unavailable SHAIKH BAKER Attending Unavailable SHAIKH BAKER Attending Unavailable SHAIKH BAKER Attending Unavailable Medications Current Medications Medication Drug Class(es) Dates Sig (Normalized) Sig (Original) [id number] 200 actuat albuterol 0.09 mg/actuat metered dose [...] MG PO Daily December 22, 2021 12:00am [place] 7-Jfe-Boq-Fish Oil (Fish Oil) 1,200 (144-216) mg Capsule (4 sources) Start: 12-22-2021 take 1 capsule by mouth twice daily [place] 0-Fxd-Iqh-Fish Oil (Fish Oil) 1,200 (144-216) mg Capsule [...] Value Interpretation Reference Range Facility Glucose Glucometer (dC) [M ass/Vol]Ordered By: Silver Briceño on 09-10-2022 Glucose [Mass/Vol] 137 mg/dL [facility] Comment on above: Random Glucose Refer ence Range is dependent on time and content of last meal. Glucose of more than 200 mg/dL in a nonstressed, ambulatory subject supports the diagnosis of Diabetes Mellitus. Glucose [Mass/Vol] 131 mg/dL [facility] Comment on above: Random Glucose Refer ence Range is dependent on time and content of last meal. Glucose of more than 200 mg/dL in a nonstressed, ambulatory subject supports the diagnosis of Diabetes Mellitus. Glucose Poct Glucometerson 0 09-10-2022 Glucose [Mass/Vol] 137 mg/dL Normal [facility] Comment on above: Result Comment: [facility] Glucose Reference Range is dependent on time and content of last meal. Glucose of more than 200 mg/dL in a nonstressed, ambulatory subject supports the diagnosis of Diabetes Mellitus. PERFORMED BY: [facility] [address] [id number] PATHOLOGIST QUARTER SUPERVISOR TEOFILO KHAN M.D. Performed By: #### G LULS #### Point of Care testing , Glucose [Mass/Vol] 131 mg/dL Normal [facility] Comment on above: Result Comment: [facility] Glucose Reference Range is dependent on time and content of last meal. Glucose of more than 200 mg/dL in a nonstressed, ambulatory subject supports the diagnosis of Diabetes Mellitus. PERFORMED BY: [facility] [address] [facility] [place] [address] PATHOLOGIST QUARTER SUPERVISOR TEOFILO KHAN M.D. Performed By: #### G LULS #### Point of Care testing , Basic Metabolic Panelon 04-0 Anion gap [Moles/Vol] 13.5 mmol/L Normal 6.0-15.0 [facility] Comment on above: Performed By: #### C BC, BMP #### [facility] [address] Calcium [Mass/Vol] 9.4 mg/dL Normal 8.6-10.3 [facility] Comment on above: Result Comment: PERF ORMED BY: [place] [address] PATHOLOGIST QUARTER SUPERVISOR TEOFILO KHAN M.D. Performed By: #### C BC, BMP #### [address] Chloride [Moles/Vol] 102 mmol/L Normal 98-107 [facility] Comment on above: Performed By: #### C BC, BMP #### [address] CO2 [Moles/Vol] 28.5 mmol/L Normal 21.0-31.0 [facility] Comment on above: Performed By: #### C BC, BMP #### [address] Creatinine [Mass/Vol] 0.99 mg/dL Normal 0.70-1.30 [facility] Comment on above: Performed By: #### C BC, BMP #### [place] [address] [place] GFR/1.73 sq M.predicted MDRD (S/P/Bld) [Vol rate/Area] mL/min/{1.73_m2} Normal [facility] Comment on above: Performed By: #### C BC, BMP #### [address] Glucose [Mass/Vol] 114 mg/dL High 70-100 [facility] Comment on above: Result Comment: [place] Glucose Reference Range is dependent on time and content of last meal. Glucose of more than 200 mg/dL in a nonstressed, ambulatory subject supports the diagnosis of Diabetes Mellitus. ADA recommended reference range Performed By: #### C BC, BMP #### [place] [address] [place] Potassium [Moles/Vol] 4.0 mmol/L Normal 3.5-5.1 [facility] Comment on above: Performed By: #### C BC, BMP #### [facility] [address] Sodium [Moles/Vol] 140 mmol/L Normal 136-145 [facility] Comment on above: Performed By: #### C BC, BMP #### [facility] [address] Urea nitrogen [Mass/Vol] 21 mg/dL Normal 7-25 [facility] Comment on above: Performed By: #### C BC, BMP #### [facility] [address] Basophils Auto (Bld) [#/Vol] Ordered By: Silver Briceño on 08-30-2022 Basophils (Bld) [#/Vol] 0.0 10*3/uL 0.0-0.2 [facility] Basophils/100 WBC Auto (Bld) Ordered By: Silver Briceño on 08-30-2022 Basophils/100 WBC (Bld) 0.7 % . [facility] Calcium [Mass/volume] in Ser um or PlasmaOrdered By: Silver Briceño on 08-30-2022 Calcium [Mass/Vol] 9.4 mg/dL 8.6-10.3 [facility] Carbon dioxide, total [Moles /volume] in Serum or PlasmaOrdered By: Silver Briceño on 08-30-2022 CO2 [Moles/Vol] 28.5 mmol/L 21.0-31.0 [facility] Chloride [Moles/volume] in S gela or PlasmaOrdered By: Silver Briceño on 08-30-2022 Chloride [Moles/Vol] 102 mmol/L 98-107 [facility] Complete Blood Count Auto Di ffon 08-30-2022 Basophils (Bld) [#/Vol] 0.0 10*3/uL Normal 0.0-0.2 [facility] Comment on above: Result Comment: PERF ORMED BY: [facility] [address] [facility] [place] [address] PATHOLOGIST QUARTER SUPERVISOR TEOFILO KHAN M.D. Performed By: #### C BC, BMP #### [facility] [address] [id number] [place] Basophils/100 WBC (Bld) 0.7 % Normal . [facility] Comment on above: Performed By: #### C BC, BMP #### [facility] [address] [id number] [place] Eosinophils (Bld) [#/Vol] 0.3 10*3/uL Normal 0.0-0.45 [facility] Comment on above: Performed By: #### C BC, BMP #### [facility] [address] [place] [address] [place] Eosinophils/100 WBC (Bld) 6.1 % Normal . [facility] Comment on above: Performed By: #### C BC, BMP #### [facility] [address] Erythrocyte distribution width (RBC) [Ratio] 14.5 % Normal 12.0-14.8 [facility] Comment on above: Performed By: #### C BC, BMP #### [facility] [address] [id number] [place] Hematocrit (Bld) [Volume fraction] 36.5 % Low 38.8-50.0 [facility] Comment on above: Performed By: #### C BC, BMP #### [facility] [address] [id number] [place] Hemoglobin (Bld) [Mass/Vol] 12.5 g/dL Low 13.0-17.0 [facility] Comment on above: Performed By: #### C BC, BMP #### [facility] [address] [id number] [place] Lymphocytes (Bld) [#/Vol] 1.8 10*3/uL Normal 1.00-4.8 [facility] Comment on above: Performed By: #### C BC, BMP #### [facility] [address] [id number] [place] Lymphocytes/100 WBC (Bld) 35.5 % Normal . [facility] Comment on above: Performed By: #### C BC, BMP #### [facility] [address] MCH (RBC) [Entitic mass] 29.2 pg Normal 27.5-35.2 [facility] Comment on above: Performed By: #### C BC, BMP #### [facility] [address] MCV (RBC) [Entitic vol] 85.1 fL Normal 83.5-101 [facility] Comment on above: Performed By: #### C BC, BMP #### [facility] [address] Mean Corpuscular HGB Conc 34.3 g/dL Normal 32.5-35.6 [facility] Comment on above: Performed By: #### C BC, BMP #### [facility] [address] [place] [address] [place] Monocytes (Bld) [#/Vol] 0.4 10*3/uL Normal 0.0-0.8 [facility] Comment on above: Performed By: #### C BC, BMP #### [facility] [address] [place] [address] [place] Monocytes/100 WBC (Bld) 8.2 % Normal . [facility] Comment on above: Performed By: #### C BC, BMP #### [facility] [address] [place] [address] [place] Neutrophils (Bld) [#/Vol] 2.5 10*3/uL Normal 1.8-7.7 [facility] Comment on above: Performed By: #### C BC, BMP #### [facility] [address] [place] [address] [place] Neutrophils/100 WBC (Bld) 49.5 % Normal . [facility] Comment on above: Performed By: #### C BC, BMP #### [facility] [address] [place] [address] [place] NRBC% 0.2 /100{WBC} Normal 0-0.5 [facility] Comment on above: Performed By: #### C BC, BMP #### [facility] [address] [id number] [facility] Platelet mean volume (Bld) [Entitic vol] 8.8 fL Normal 6.6-10.1 [facility] Comment on above: Performed By: #### C BC, BMP #### [facility] [address] [phone] [place] Platelets (Bld) [#/Vol] 155 10*3/uL Normal 150-450 [facility] Comment on above: Performed By: #### C SAI, BMP #### [facility] [address] RBC (Bld) [#/Vol] 4.29 10*6/uL Normal 3.90-5.60 [facility] Comment on above: Performed By: #### C SAI, BMP #### [facility] [address] [place] [address] [facility] WBC (Bld) [#/Vol] 5.1 10*3/uL Normal 4.1-10.5 [facility] Comment on above: Performed By: #### C SAI, BMP #### [facility] [address] Creatinine [Mass/volume] in Serum or PlasmaOrdered By: Silver Briceño on 08-30-2022 Creatinine [Mass/Vol] 0.99 mg/dL 0.70-1.30 [facility] ECG 12 lead ECGon 08-30-2022 ECG 12 lead ECG [facility] Main [place] [address] [place] [address] Electrocardiograph Report Signed Patient: Lavern Escobedo MR#: [id number] : 1965 Acct:[id number] Age/Sex: 57 / M ADM Date: 08/30/22 Loc: PS [facility]: [facility]: Silver Briceño DO Ordering Provider: [...] previous ECGs available Confirmed by KATE GUPTA [id number] on 08/31/2022 12:23:25 PM Referred By: FREDDY Electronically Signed By:LEANNA LOVE MD [facility] Transcribed By: MUS Signed By Leo Love MD 08/31/22 1223 Normal [facility] Eosinophils Auto (Bld) [#/Vo l]Ordered By: Silver Briceño on 08-30-2022 Eosinophils (Bld) [#/Vol] 0.3 10*3/uL 0.0-0.45 [facility] Eosinophils/100 WBC Auto (Bl d)Ordered By: Silver Briceño on 08-30-2022 Eosinophils/100 WBC (Bld) 6.1 % . [facility] Erythrocyte distribution wid th Auto (RBC) [Ratio]Ordered By: Silver Briceño on 08-30-2022 Erythrocyte distribution width (RBC) [Ratio] 14.5 % 12.0-14.8 [facility] Glucose [Mass/volume] in Ser um or PlasmaOrdered By: Silver Briceño on 08-30-2022 Glucose [Mass/Vol] 114 mg/dL 70-100 [facility] Comment on above: ADA recommended refe rence rangeRandom Glucose Reference Range is dependent on time and content of last meal. Glucose of more than 200 mg/dL in a nonstressed, ambulatory subject supports the diagnosis of Diabetes Mellitus. Hematocrit Auto (Bld) [Volum e fraction]Ordered By: Silver Briceño on 08-30-2022 Hematocrit (Bld) [Volume fraction] 36.5 % 38.8-50.0 [facility] Hemoglobin [Mass/volume] in BloodOrdered By: Silver Briceño on 08-30-2022 Hemoglobin (Bld) [Mass/Vol] 12.5 g/dL 13.0-17.0 [facility] Leukocytes [#/volume] correc shashi for nucleated erythrocytes in Blood by Automated counOrdered By: Silver Briceño on 08-30-2022 WBC corrected for nucl RBC Auto (Bld) [#/Vol] 5.1 10*3/uL 4.1-10.5 [facility] Lymphocytes Auto (Bld) [#/Vo l]Ordered By: Silver Briceño on 08-30-2022 Lymphocytes (Bld) [#/Vol] 1.8 10*3/uL 1.00-4.8 [facility] Lymphocytes/100 WBC Auto (Bl d)Ordered By: Silver Briceño on 08-30-2022 Lymphocytes/100 WBC (Bld) 35.5 % . [facility] MCH Auto (RBC) [Entitic mass ]Ordered By: Silver Briceño on 08-30-2022 MCH (RBC) [Entitic mass] 29.2 pg 27.5-35.2 [facility] MCHC Auto (RBC) [Mass/Vol]Or dered By: Silver Briceño on 08-30-2022 MCHC (RBC) [Mass/Vol] 34.3 g/dL 32.5-35.6 [facility] MCV Auto (RBC) [Entitic vol] Ordered By: Silver Briceño on 08-30-2022 MCV (RBC) [Entitic vol] 85.1 fL 83.5-101 [facility] Monocytes Auto (Bld) [#/Vol] Ordered By: Silver Briceño on 08-30-2022 Monocytes (Bld) [#/Vol] 0.4 10*3/uL 0.0-0.8 [facility] Monocytes/100 WBC Auto (Bld) Ordered By: Silver Briceño on 08-30-2022 Monocytes/100 WBC (Bld) 8.2 % . [facility] Neutrophils Auto (Bld) [#/Vo l]Ordered By: Silver Briceño on 08-30-2022 Neutrophils (Bld) [#/Vol] 2.5 10*3/uL 1.8-7.7 [facility] Neutrophils/100 WBC Auto (Bl d)Ordered By: Silver Briceño on 08-30-2022 Neutrophils/100 WBC (Bld) 49.5 % . [facility] No Panel InformationOrdered By: Silver Briceño on 08-30-2022 Estimated GFR (CKD-EPI) > 60.0 mL/Min [facility] Creatinine Clearance (Chem N/A [facility] Nucleated erythrocytes [Pres ence] in Blood by Automated countOrdered By: Silver Briceño on 08-30-2022 Nucleated RBC Auto Ql (Bld) 0.2 /100{WBC} 0-0.5 [facility] Platelet mean volume Auto (B ld) [Entitic vol]Ordered By: Silver Briceño on 08-30-2022 Platelet mean volume (Bld) [Entitic vol] 8.8 fL 6.6-10.1 [facility] Platelets Auto (Bld) [#/Vol] Ordered By: Silver Briceño on 08-30-2022 Platelets (Bld) [#/Vol] 155 10*3/uL 150-450 [facility] Potassium [Moles/volume] in Serum or PlasmaOrdered By: Silver Briceño on 08-30-2022 Potassium [Moles/Vol] 4.0 mmol/L 3.5-5.1 [facility] RBC Auto (Bld) [#/Vol]Ordere d By: Silver Briceño on 08-30-2022 RBC (Bld) [#/Vol] 4.29 10*6/uL 3.90-5.60 [facility] Serum or plasma anion gap de terminationOrdered By: Silver Briceño on 08-30-2022 Anion gap [Moles/Vol] 13.5 mmol/L 6.0-15.0 [facility] Sodium [Moles/volume] in Ser um or PlasmaOrdered By: Silver Briceño on 08-30-2022 Sodium [Moles/Vol] 140 mmol/L 136-145 [facility] Urea nitrogen [Mass/volume] in Serum or PlasmaOrdered By: Silver Briceño on 08-30-2022 Urea nitrogen [Mass/Vol] 21 mg/dL 7-25 [facility] WBC Auto (Bld) [#/Vol]Ordere d By: Silver Briceño on 08-30-2022 WBC (Bld) [#/Vol] 5.1 10*3/uL 4.1-10.5 [facility] GLYCOHEMOGLOBIN A1Con 2022 ADA RECOMMENDATION SEE BELOW Normal [facility] Comment on above: Result Comment: ADA RECOMMENDED LIMIT 4.0 - 6.0 ADA THERAPEUTIC TARGET < 7.0 ACTION SUGGESTED > 7.0 Performed By: #### A 1C #### [facility] [address] [address] [address] Idania Tai Glucose [Mass/Vol] 243 mg/dL Normal [facility] Comment on above: Performed By: #### A 1C #### [facility] [address] [address] [address] Idania Tai HbA1c (Bld) [Mass fraction] 10.1 % Critically high 4.5-6.2 [facility] Comment on above: Performed By: #### A 1C #### [facility] [address] [place] [address] Dr. Idania Tai LIPID PROFILEon 07-07-2022 CHOL-HDL RATIO NORM SEE BELOW Normal [facility] Comment on above: Result Comment: 3.3 - 4.4 LOW RISK 4.4 - 7.1 AVERAGE RISK 7.1 - 11.0 MODERATE RISK >11.0 HIGH RISK Performed By: #### B MP, LIPID #### [facility] [address] [place] [address] Dr. Idania Tai Cholesterol [Mass/Vol] 172 mg/dL Normal <=200 [facility] Comment on above: Performed By: #### B MP, LIPID #### [facility] [address] [place] [address] Dr. Idania Tai Cholesterol in HDL [Mass/Vol] 48 mg/dL Normal 40-60 [facility] Comment on above: Performed By: #### B MP, LIPID #### [facility] [address] [address] [address] Idania Tai Cholesterol in LDL [Mass/Vol] 95.6 mg/dL Normal [facility] Comment on above: Performed By: #### B MP, LIPID #### [facility] [address] [address] [address] Idania Tai Cholesterol.total/Choles terol in HDL [Mass ratio] 3.6 {ratio} Normal [facility] Comment on above: Performed By: #### B MP, LIPID #### [facility] [address] [place] [address] Dr. Idania Tai HDL NORMAL > or = 60 mg/dl - LOW CARDIOVASCULAR RISK <40 mg/dl - HIGH CARDIOVASCULAR RISK Normal [facility] Comment on above: Performed By: #### B MP, LIPID #### [facility] [address] [place] [address] Dr. Idania Tai LDL CALC NORMAL SEE BELOW Normal [facility] Comment on above: Result Comment: <100 mg/dl OPTIMAL 100 - 129 mg/dl NEAR OR ABOVE OPTIMAL 130 - 159 mg/dl BORDERLINE HIGH 160 - 189 mg/dl HIGH >190 mg/dl VERY HIGH Performed By: #### B MP, LIPID #### [facility] [address] [place] [address] Dr. Idania Tai Triglyceride [Mass/Vol] 142 mg/dL Normal <=150 [facility] Comment on above: Performed By: #### B MP, LIPID #### [facility] [address] [place] [address] Dr. Idania Tai VLDL CALC 28.4 mg/dL Normal [facility] Comment on above: Performed By: #### B MP, LIPID #### [facility] [address] [place] [address] Dr. Idania Tai PROF CHEM 8 (BAS METB)on Anion gap [Moles/Vol] 11.0 mmol/L Normal [facility] Comment on above: Performed By: #### B MP, LIPID #### [facility] [address] [place] [address] Dr. Idania Tai Calcium [Mass/Vol] 9.1 mg/dL Normal 8.5-10.1 [facility] Comment on above: Performed By: #### B MP, LIPID #### [facility] [address] [place] [address] Dr. Idania Tai Chloride [Moles/Vol] 100 mmol/L Normal 98-107 [facility] Comment on above: Performed By: #### B MP, LIPID #### [facility] [address] [address] [address] Idania Tai CO2 [Moles/Vol] 32.6 mmol/L Critically high 21.0-32.0 [facility] Comment on above: Performed By: #### B MP, LIPID #### [facility] [address] [address] [address] Idania Tai Creatinine [Mass/Vol] 0.81 mg/dL Normal 0.70-1.30 [facility] Comment on above: Performed By: #### B MP, LIPID #### [facility] [address] [address] [address] Idania Tai EGFR-AF TURKISH >60 Normal >=60 [facility] Comment on above: Performed By: #### B MP, LIPID #### [facility] [address] [place] [address] Dr. Idania Tai EGFR-NON AF TURKISH >60 Normal >=60 [facility] Comment on above: Performed By: #### B MP, LIPID #### [facility] [address] [address] [address] Idania Tai Glucose [Mass/Vol] 157 mg/dL Critically high 74-106 [facility] Comment on above: Performed By: #### B MP, LIPID #### [facility] [address] [place] [address] Dr. Idania Tai Potassium [Moles/Vol] 3.6 mmol/L Normal 3.5-5.1 [facility] Comment on above: Performed By: #### B MP, LIPID #### [facility] [address] [address] [address] Idania Tai Sodium [Moles/Vol] 140 mmol/L Normal 136-145 [facility] Comment on above: Performed By: #### B MP, LIPID #### [facility] [address] [address] [address] Idania Tai Urea nitrogen [Mass/Vol] 16.0 mg/dL Normal 7.0-18.0 [facility] Comment on above: Performed By: #### B MP, LIPID #### [facility] [address] [address] [address] Idania Tai Urea nitrogen/Creatinine [Mass ratio] 19.8 mg/mg Normal [facility] Comment on above: Performed By: #### B MP, LIPID #### [facility] [address] [address] [address] Idania Tai PROF CHEM 8 (BAS METB)on Anion gap [Moles/Vol] 16.1 mmol/L Normal [facility] Comment on above: Performed By: #### B MP #### [facility] [address] [address] [address] Idania Tai Calcium [Mass/Vol] 9.4 mg/dL Normal 8.5-10.1 [facility] Comment on above: Performed By: #### B MP #### [facility] [address] [address] [address] Idania Tai Chloride [Moles/Vol] 98 mmol/L Normal 98-107 [facility] Comment on above: Performed By: #### B MP #### [facility] [address] [address] [address] Idania Tai CO2 [Moles/Vol] 26.0 mmol/L Normal 21.0-32.0 [facility] Comment on above: Performed By: #### B MP #### [facility] [address] [address] [address] Idania Tia Creatinine [Mass/Vol] 0.78 mg/dL Normal 0.70-1.30 [facility] Comment on above: Performed By: #### B MP #### [facility] [address] [address] [address] Idania Tai EGFR-AF TURKISH >60 Normal >=60 [facility] Comment on above: Performed By: #### B MP #### [facility] [address] [address] [address] Idania Tai EGFR-NON AF TURKISH >60 Normal >=60 [facility] Comment on above: Performed By: #### B MP #### [facility] [address] [address] [address] Idania Tai Glucose [Mass/Vol] 131 mg/dL Critically high 74-106 [facility] Comment on above: Performed By: #### B MP #### [facility] [address] [address] [address] Idania Tai Potassium [Moles/Vol] 4.1 mmol/L Normal 3.5-5.1 [facility] Comment on above: Performed By: #### B MP #### [facility] [address] [address] [address] Idania Tai Sodium [Moles/Vol] 136 mmol/L Normal 136-145 [facility] Comment on above: Performed By: #### B MP #### [facility] [address] [address] [address] Idania Tai Urea nitrogen [Mass/Vol] 19.0 mg/dL Critically high 7.0-18 .0 [facility] Comment on above: Performed By: #### B MP #### [facility] [address] [address] [address] Idania Tai Urea nitrogen/Creatinine [Mass ratio] 24.4 mg/mg Normal [facility] Comment on above: Performed By: #### B MP #### [facility] [address] [address] [address] Idania Tai Glucose Glucometer (dC) [M ass/Vol]Ordered By: Sav Andrews on 12-22-2021 Glucose [Mass/Vol] 113 mg/dL [facility] Comment on above: Random Glucose Refer ence Range is dependent on time and content of last meal. Glucose of more than 200 mg/dL in a nonstressed, ambulatory subject supports the diagnosis of Diabetes Mellitus. Glucose Poct Glucometerson 0 12-22-2021 Glucose [Mass/Vol] 113 mg/dL Normal [facility] Comment on above: Result Comment: [place] [facility] Glucose Reference Range is dependent on time and content of last meal. Glucose of more than 200 mg/dL in a nonstressed, ambulatory subject supports the diagnosis of Diabetes Mellitus. PERFORMED BY: [place] [address] PATHOLOGIST QUARTER SUPERVISOR TEOFILO KHAN M.D. Performed By: #### G [...] developed and its performance characteristic determined by [employer] and validated at [facility]. This test has not been FDA [...] for SARS Antigen by [facility] PERFORMED BY: [address] [address] PATHOLOGIST QUARTER SUPERVISOR TEOFILO KHAN M.D. [facility] Comment on above: Performed By: #### C OVID-19 MAYRA, SOFIANEG #### [address] [place] [address] [place] COVID-19 SOFIAOrdered By: Bebe mittalon Darryl on 12-20-2021 SARS-CoV+SARS-CoV-2 (COVID-19) Ag IA.rapid Ql (Resp) Negative Negative [facility] Comment on above: This is a duplicate Mayra SARS Antigen (SIN) result to be used for statistical tracking purpose only. No Panel InformationOrdered By: Sav Andrews on 12-20-2021 SARS Antigen (LFIA) [facility] Mayra Ag Negativeon 12-21-19 22 Mayra Ag Negative Negative Normal Negative [facility] Comment on above: Result Comment: This is a duplicate Mayra SARS Antigen (SIN) result to be used for statistical tracking purpose only. PERFORMED BY: [place] [address] PATHOLOGIST QUARTER SUPERVISOR TEOFILO KHAN M.D. Performed By: #### C OVID-19 MAYRA, SOFIANEG #### [address] ANKLE RT WO CONon 022 [...] severe tricompartmental osteoarthropathy of the knee with xcaf-uw-cxnt articulation of the lateral compartment. SOFT TISSUES: Negative. No visible soft tissue swelling. EFFUSION: None visible. OTHER: Negative. IMPRESSION: Progression of subchondral degenerative cystic changes of the tibial plafond and calcaneus Moderate to severe knee osteoarthritis with mrcx-te-pjjp articulation of the lateral compartment Electronically authenticated by: GERA BLUM Date: 2021-11-14 16:32 Normal [facility] CBC AUTO DIFFon 09-11-2021 BASO # 0.1 103/ul Normal 0.0-0.1 [facility] Comment on above: Performed By: #### C BC ####[facility] [address] [address]Dr. Idania Tai Basophils/100 WBC (Bld) 0.8 % Normal 0.2-2.0 [facility] Comment on above: Performed By: #### C BC ####[facility] [address] [place], [place] [address]Dr. Idania Tai EO # 0.2 103/ul Normal 0.0-0.7 [facility] Comment on above: Performed By: #### C BC ####[facility] [address] [place], [place] [address]Dr. Idania Tai Eosinophils/100 WBC (Bld) 2.2 % Normal 0.9-7.0 [facility] Comment on above: Performed By: #### C BC ####[facility] [address] [place], [place] [address]Dr. Idania Tai Erythrocyte distribution width (RBC) [Ratio] 13.1 % Normal 11.0-15.0 [facility] Comment on above: Performed By: #### C BC ####[facility] C[address] [place], [place] [address]Dr. Idania Tai Hematocrit (Bld) [Volume fraction] 44.5 % Normal 42.0-54.0 [facility] Comment on above: Performed By: #### C BC ####[facility] [address] [place], [place] [address]Dr. Idania Tai Hemoglobin (Bld) [Mass/Vol] 14.9 g/dL Normal 14.0-18.0 [facility] Comment on above: Performed By: #### C BC ####[facility] [address] [place], [place] [address]Dr. Idania Tai IG # 0.13 10e3/ul Critically high 0.00-0.03 [facility] Comment on above: Performed By: #### C BC ####[facility] [address] [address]Dr. Idania Tai IG % 1.5 % Critically high 0.0-0.5 [facility] Comment on above: Performed By: #### C BC ####[facility] [address] [address]Dr. Idania Tai LYMPH # 2.4 103/ul Normal 1.2-3.8 [facility] Comment on above: Performed By: #### C BC ####[facility] [address] [address]Dr. Idania Tai Lymphocytes/100 WBC (Bld) 27.7 % Normal 20.5-60.0 [facility] Comment on above: Performed By: #### C BC ####[facility] [address] [place], [place] [address]Dr. Idania Tai MANUAL DIFF REQ NO Normal [facility] Comment on above: Performed By: #### C BC ####[facility] [address] [id number]. Idania Tai MCH (RBC) [Entitic mass] 28.9 pg Normal 25.9-34.0 [facility] Comment on above: Performed By: #### C BC ####[facility] [address] [address]Dr. Idania Tai MCHC (RBC) [Mass/Vol] 33.5 g/dL Normal 29.9-35.2 [facility] Comment on above: Performed By: #### C BC ####[facility] [address] [place], [place] [address]Dr. Idania Tai MCV (RBC) [Entitic vol] 86.4 fL Normal 80.0-94.0 [facility] Comment on above: Performed By: #### C BC ####[facility] [address] [place], [place] [address]Dr. Idania Tai MONO # 0.6 103/ul Normal 0.3-0.8 [facility] Comment on above: Performed By: #### C BC ####[facility] [address] [address]Dr. Idania Tai Monocytes/100 WBC (Bld) 6.4 % Normal 1.7-12.0 [facility] Comment on above: Performed By: #### C BC ####[facility] [address] [address]Dr. Idania Tai NEUT # 5.3 103/ul Normal 1.4-6.5 [facility] Comment on above: Performed By: #### C BC ####[facility] [address] [address]Dr. Idania Tai Neutrophils/100 WBC (Bld) 61.4 % Normal 43.0-75.0 [facility] Comment on above: Performed By: #### C BC ####[facility] [address] [address]Dr. Idania Tai Platelet mean volume (Bld) [Entitic vol] 9.7 fL Normal 9.5-13.5 [facility] Comment on above: Performed By: #### C BC ####[facility] [address] [id number]. Idania Tai PLT 219 103/ul Normal 150-450 [facility] Comment on above: Performed By: #### C BC ####[facility] [address] [address]Dr. Idania Tai RBC 5.15 106/ul Normal 4.70-6.10 [facility] Comment on above: Performed By: #### C BC ####[facility] [address] [address]Dr. Idania Tai WBC 8.6 103/ul Normal 4.0-11.0 [facility] Comment on above: Performed By: #### C BC ####[facility] [address] [id number]. Idania Tai GLYCOHEMOGLOBIN A1Con 2021 ADA RECOMMENDATION ADA THERAPEUTIC TARGET 6.0 - 7.0 ACTION SUGGESTED > 7.0 Normal [facility] Comment on above: Performed By: #### A 1C ####[facility] [address] [id number]. Idania Tai Glucose [Mass/Vol] 128 mg/dL Normal [facility] Comment on above: Performed By: #### A 1C ####[facility] [address] [place], [place] [address]Dr. Idania Tai HbA1c (Bld) [Mass fraction] 6.1 % Critically high <=6.0 [facility] Comment on above: Performed By: #### A 1C ####[facility] [address] [place] [id number]. Idania Tai LIPID PROFILEon 09-11-2021 CHOL-HDL RATIO NORM SEE BELOW Normal [facility] Comment on above: Result Comment: 3.3 - 4.4 LOW RISK 4.4 - 7.1 AVERAGE RISK 7.1 - 11.0 MODERATE RISK >11.0 HIGH RISK Performed By: #### L IPID, CMP #### [facility] [address] [address] [address] Idania Tai Cholesterol [Mass/Vol] 175 mg/dL Normal <=200 [facility] Comment on above: Performed By: #### L IPID, CMP #### [facility] [address] [address] [address] Idania Tai Cholesterol in HDL [Mass/Vol] 54 mg/dL Normal 40-60 [facility] Comment on above: Performed By: #### L IPID, CMP #### [facility] [address] [address] [address] Idania Tai Cholesterol in LDL [Mass/Vol] 87.2 mg/dL Normal [facility] Comment on above: Performed By: #### L IPID, CMP #### [facility] [address] [address] [address] Idania Tai Cholesterol.total/Choles terol in HDL [Mass ratio] 3.2 {ratio} Normal [facility] Comment on above: Performed By: #### L IPID, CMP #### [facility] [address] [address] [address] Idania Tai HDL NORMAL > or = 60 mg/dl - LOW CARDIOVASCULAR RISK <40 mg/dl - HIGH CARDIOVASCULAR RISK Normal [facility] Comment on above: Performed By: #### L IPID, CMP #### [facility] [address] [address] [address] Idania Tai LDL CALC NORMAL SEE BELOW Normal [facility] Comment on above: Result Comment: <100 mg/dl OPTIMAL 100 - 129 mg/dl NEAR OR ABOVE OPTIMAL 130 - 159 mg/dl BORDERLINE HIGH 160 - 189 mg/dl HIGH >190 mg/dl VERY HIGH Performed By: #### L IPID, CMP #### [facility] [address] [address] [address] Idania Tai Triglyceride [Mass/Vol] 169 mg/dL Critically high <=150 [facility] Comment on above: Performed By: #### L IPID, CMP #### [facility] [address] [address] [address] Idania Tai VLDL CALC 33.8 mg/dL Normal [facility] Comment on above: Performed By: #### L IPID, CMP #### [facility] [address] [address] [address] Idania Tai MICROALBUMIN, RAND URon - mALB 1.9 mg/L Normal <=30.0 [facility] Comment on above: Performed By: #### M ALBR #### [facility] [address] [address] [address] Idania Tai PROF 14(COMP METB)on 022 Albumin [Mass/Vol] 3.7 g/dL Normal 3.4-5.0 [facility] Comment on above: Performed By: #### L IPID, CMP #### [facility] [address] [address] [address] Idania Tai Albumin/Globulin [Mass ratio] 0.9 {ratio} Normal [facility] Comment on above: Performed By: #### L IPID, CMP #### [facility] [address] [address] [address] Idania Tai ALP [Catalytic activity/Vol] 73 U/L Normal 46-116 [facility] Comment on above: Performed By: #### L IPID, CMP #### [facility] [address] [address] [address] Idania Tai ALT [Catalytic activity/Vol] 68 U/L Critically high 16-63 [facility] Comment on above: Performed By: #### L IPID, CMP #### [facility] [address] [address] [address] Idania Tai Anion gap [Moles/Vol] 10.2 mmol/L Normal Th [facility] Comment on above: Performed By: #### L IPID, CMP #### [facility] [address] [place] [address] Dr. Idania Tai AST [Catalytic activity/Vol] 30 U/L Normal 15-37 [facility] Comment on above: Performed By: #### L IPID, CMP #### [facility] [address] [address] [address] Idania Tai Bilirubin [Mass/Vol] 1.0 mg/dL Normal 0.2-1.3 [facility] Comment on above: Performed By: #### L IPID, CMP #### [facility] [address] [place] [address] Dr. Idania Tai Calcium [Mass/Vol] 8.5 mg/dL Normal 8.5-10.1 [facility] Comment on above: Performed By: #### L IPID, CMP #### [facility] [address] [place] [address] Dr. Idania Tai Chloride [Moles/Vol] 101 mmol/L Normal 98-107 [facility] Comment on above: Performed By: #### L IPID, CMP #### [facility] [address] [place] [address] Dr. Idania Tai CO2 [Moles/Vol] 31.6 mmol/L Critically high 22.0-30.0 [facility] Comment on above: Performed By: #### L IPID, CMP #### [facility] [address] [place] [address] Dr. Idania Tai Creatinine [Mass/Vol] 0.67 mg/dL Normal 0.66-1.25 [facility] Comment on above: Performed By: #### L IPID, CMP #### [facility] [address] [place] [address] Dr. Idania Tai EGFR-AF TURKISH >60 Normal >=60 [facility] Comment on above: Performed By: #### L IPID, CMP #### [facility] [address] [address] [address] Idania Tai EGFR-NON AF TURKISH >60 Normal >=60 [facility] Comment on above: Performed By: #### L IPID, CMP #### [facility] [address] [place] [address] Dr. Idania Tai Globulin (S) [Mass/Vol] 4.0 g/dL Normal [facility] Comment on above: Performed By: #### L IPID, CMP #### [facility] [address] [place] [address] Dr. Idania Tai Glucose [Mass/Vol] 114 mg/dL Critically high 74-106 [facility] Comment on above: Performed By: #### L IPID, CMP #### [facility] [address] [place] [address] Dr. Idania Tai Potassium [Moles/Vol] 4.8 mmol/L Normal 3.4-5.0 [facility] Comment on above: Performed By: #### L IPID, CMP #### [facility] [address] [place] [address] Dr. Idania Tai Protein [Mass/Vol] 7.7 g/dL Normal 6.1-8.2 [facility] Comment on above: Performed By: #### L IPID, CMP #### [facility] [address] [place] [address] Dr. Idania Tai Sodium [Moles/Vol] 138 mmol/L Normal 137-145 [facility] Comment on above: Performed By: #### L IPID, CMP #### [facility] [address] [place] [address] Dr. Idania Tai Urea nitrogen [Mass/Vol] 12.0 mg/dL Normal 7.0-18.0 [facility] Comment on above: Performed By: #### L IPID, CMP #### [facility] [address] [address] [address] Idania Tai Urea nitrogen/Creatinine [Mass ratio] 17.9 mg/mg Normal [facility] Comment on above: Performed By: #### L IPID, CMP #### [facility] [address] [address] [address] Idania Tai Vital Signs Date Time Vital Sign Value Performing Clinician Faci lity 09-10-2022 13:15-0400 Diastolic blood pressure 64 mm[Hg] MD Shaikh Baker Work Phone: [facility] 09-10-2022 13:15-0400 Heart rate 54 /min MD Shaikh Baker Work Phone: [facility] 09-10-2022 13:15-0400 Respiratory rate 16 /min MD Shaikh Baker Work Phone: [facility] 09-10-2022 13:15-0400 SaO2% (BldA) [Mass fraction] 97 % MD Shaikh Baker Work Phone: [facility] 09-10-2022 13:15-0400 Systolic blood pressure 100 mm[Hg] MD Shaikh Baker Work Phone: [facility] 09-10-2022 12:25-0400 Body temperature 97.5 [degF] MD Shaikh Baker Work Phone: [facility] 09-10-2022 11:55-0400 Inhaled oxygen flow rate 8 L/min MD Shaikh Baker Work Phone: [facility] 09-10-2022 10:54-0400 Body height 165.1 cm MD Shaikh Baker Work Phone: [facility] 09-10-2022 10:54-0400 Body mass index (BMI) [Ratio] 38.6 kg/m2 MD Shaikh Baker Work Phone: [facility] 09-10-2022 10:54-0400 Body weight 105.4 kg MD Shaikh Baker Work Phone: [facility] 12-22-2021 10:00-0400 Diastolic blood pressure 87 mm[Hg] MD Sav Andrews Work Phone: [facility] 12-22-2021 10:00-0400 Heart rate 54 /min MD Sav Andrews Work Phone: [facility] 12-22-2021 10:00-0400 Respiratory rate 18 /min MD Sav Andrews Work Phone: [facility] 12-22-2021 10:00-0400 SaO2% (BldA) [Mass fraction] 100 % MD Sav Andrews Work Phone: [facility] 12-22-2021 10:00-0400 Systolic blood pressure 139 mm[Hg] MD Sav Andrews Work Phone: [facility] 12-22-2021 07:37-0400 Body height 170.18 cm MD Sav Andrews Work Phone: [facility] 12-22-2021 07:37-0400 Body temperature 97.9 [degF] MD Sav Andrews Work Phone: [facility] 12-22-2021 07:37-0400 Body weight 81.64 kg MD Sav Andrews Work Phone: [facility] Encounters Encounter Date Encounter Type Care Provider Facility Start: 10-24-2023 End: 10-24-2023 ambulatory ANGELO FAWWAD Not Available Start: 09-16-2023 End: 09-16-2023 ambulatory ANGELO FAWWAD Not Available Start: 08-07-2023 End: 08-07-2023 ambulatory ANGELO SAMUEL Not Available Start: 09-10-2022 End: 09-10-2022 ambulatory Silver Alcantaraurora Facility:[facility] Start: 09-10-2022 End: 09-10-2022 Admission to same day surgery center MD Shaikh Baker Work Phone: [facility] [place] Start: 09-10-2022 End: 09-10-2022 ambulatory MD Shaikh Baker Work Phone: [facility] Work Phone: Start: 08-30-2022 End: 08-30-2022 ambulatory Silver Alcantaraurora Facility:[facility] Start: 08-30-2022 End: 08-30-2022 ambulatory MD Shaikh Baker Work Phone: [facility] Work Phone: Start: 08-30-2022 End: 08-30-2022 Patient encounter procedure MD Shaikh Baker Work Phone: [facility] Work Phone: Start: 07-07-2022 End: 07-08-2022 ambulatory ANGELO Adan SAMUEL Facility:[facility] Start: 03-13-2022 End: 03-14-2022 ambulatory ANGELO Adan SAMUEL Facility:[facility] Start: 12-22-2021 End: 12-22-2021 ambulatory Sav Andrews Facility:[facility] Start: 12-22-2021 End: 12-22-2021 Admission to same day surgery center MD Sav Andrews Work Phone: [facility] Start: 12-20-2021 End: 12-20-2021 ambulatory Sav Andrews Facility:[facility] Start: 12-20-2021 End: 12-20-2021 Patient encounter procedure MD Sav Andrews Work Phone: [facility] Start: 11-14-2021 End: 11-15-2021 ambulatory REY ALCARAZ Facility:[facility] Start: 10-25-2021 End: 10-26-2021 ambulatory REY ALCARAZ Facility:[facility] Start: 09-11-2021 End: 09-12-2021 ambulatory SHAIKH dAan BAKER Facility:[facility] Start: 09-05-2021 End: 09-06-2021 ambulatory LIZETH MARIO Facility:[facility] Start: 08-03-2021 End: 08-03-[address] ASA AL Facility:[facility] Procedures Date Procedure Procedure Detail Performing Clinician Start: 09-10-2022 Hemorrhoidectomy MD Beltran Baker Work Phone: Start: 12-22-2021 Screening colonoscopy Ev Andrews Work Phone: SARS Antigen (LFIA) MD Fuentes Andrews Work Phone: Plan of Treatment Date Care Activity Detail Author Start: 09-10-2022 End: 09-10-2022 [facility] Start: 12-22-2021 [facility] Work Phone: Patient Education Hemorrhoids [facility] Work Phone: Immunizations Immunization Date Immunization Notes Care Provider Fa cili 10-10-2020 COVID-19 mRNA Comirmichelle (Pfizer) MD Sav Andrews Work Phone: [facility] 09-19-2020 COVID-19 mRNA Comirnatjoey (Pfizer) MD Sav Andrews Work Phone: [facility] Payers Date Payer Category Payer Self-pay [id number] 1965 Unknown [id number] 2.16.84 [id number] 1965 Unknown [id number] 2.16.84 [id number] 1966 Unknown [id number] 2.16.84 [id number] 1966 Unknown [id number] 2.16.84 [id number] 1966 Unknown [id number] 2.16.84 0.1.440464.3.579.2.593 1966 Unknown [id number] 2.16.84 0.1.488345.3.579.2.593 1966 Unknown [id number] 2.16.84 0.1.620488.3.579.2.593 1966 Unknown [id number] 2.16.84 0.1.693080.3.579.2.1259 1966 Unknown [id number] 2.16.84 0.1.567914.3.579.2.1259 1966 Unknown [id number] 2.16.84 0.1.901369.3.579.2.1259 1959 Unknown [id number] Unknown [id number] 2.16.8 [id number] Unknown [id number] 2.16.8 40.1.885515.3.579.2.531 Unknown [id number] 2.16.8 40.1.656251.3.579.2.531 Unknown [id number] 2.16.8 [id number] Social History Date Type Detail Facility Start: 12-22-2021 End: 09-10-2022 Tobacco smoking status NHIS Ex-smoker (finding) [facility] Start: 1965 Sex Assigned At Male F [facility] Goals Date Patient Goal Desired Activity /State Procedure note 12-22-2021 Note Date & Type Note Facility 12-22-2021 Procedure note [facility] Clinical Note 10-26-2021 [...] by: MICHELLE IBRAHIM Date: 2021-10-26 08:54 [facility] Clinical Note 09-05-2021 Note Date & [...] by: GERA BLUM Date: 2021-09-05 15:22 [facility] Evaluation note Note Date & Type Note Facility Evaluation note No assessment information availa [facility] Work Phone: History and physical note Note Date & Type Note Facility History and physical note Note Date/Time December 22, 2021 9:32 am [facility] [address] [place] [address] Gastroenterology H&P Signed Patient: Lavern Escobedo MR #: [id number] : 1965 Acct:[id number] Age/Sex: 56 / M Adm Date: 2 Loc: Room: Type: [facility] Attending Dr: Sav Andrews MD Copies [...] <Electronically signed by Sav Andrews MD> 12/22/21931 [facility] Work Phone: Chief Complaint and Reason for [...] DATE CREATED AUTHOR AUTHOR'S ORGANIZ ATION 10/02/2022 [facility] DATE CREATED AUTHOR AUTHOR'S ORGANIZ ATION 10/25/2023 [facility] EPIC Goals (unrecognized [...] BE BASED ON THE PRIMARY CLINICAL RECORDS. [employer] provides no warranty or guarantee of the accuracy or completeness of information in this document.
[2023-12-14 11:32] LABS: Basophils Percent Auto 0.7 % (0.2-2.0); Eosinophils Absolute Auto 0.3 10^3/uL (0.0-0.7); Eosinophils Percent Auto 5.6 % (0.9-7.0); Hemoglobin 12.8 g/dL (14.0-18.0); Immature Granulocytes Abs Auto 0.04 10^3/uL (0.00-0.03); Immature Granulocytes Pct Auto 0.7 % (0.0-0.5); Lymphocytes Absolute Auto 1.6 10^3/uL (1.2-3.8); Lymphocytes Percent Auto 27.7 % (20.5-60.0); Mean Corpuscular HGB Conc 33.7 g/dL (29.9-35.2); Mean Corpuscular Hemoglobin 30.8 pg (25.9-34.0); Mean Corpuscular Volume 91.3 fL (80.0-94.0); Mean Platelet Volume 10.5 fL (9.5-13.5); Monocytes Absolute Auto 0.5 10^3/uL (0.3-0.8); Monocytes Percent Auto 8.3 % (1.7-12.0); Neutrophils Absolute Auto 3.4 10^3/uL (1.4-6.5); Platelet Count 171 10^3/uL (150-450); Red Blood Count 4.16 10^6/uL (4.70-6.10); Red Cell Distribution Width 12.5 % (11.0-15.0); White Blood Count 5.9 10^3/uL (4.0-11.0)
[2023-12-14 11:44] LABS: Alanine Aminotransferase 78 U/L (16-63); Albumin Globulin Ratio 0.9; Albumin Level 3.8 g/dL (3.4-5.0); Alkaline Phosphatase 68 U/L (46-116); Anion Gap 17.6; Aspartate Amino Transferase 51 U/L (15-37); BUN Creatinine Ratio 25.5; Bilirubin Total 0.9 mg/dL (0.2-1.0); Calcium 8.6 mg/dL (8.5-10.1); Carbon Dioxide 21.9 mmol/L (21.0-32.0); Chloride 103 mmol/L (98-107); Estimated GFR (African America 57 (>=60); Estimated GFR (Non-African Ame 47 (>=60); Globulin 4.1 g/dL; Glucose 151 mg/dL (74-106); Potassium 4.5 mmol/L (3.5-5.1); Sodium 138 mmol/L (136-145); Total Protein 7.9 g/dL (6.4-8.2)
--- NOTE | 2023-12-14 12:16 | ED.ABDPAIN1 ---
HPI - Abdominal Pain General Chief Complaint: Abdominal Pain Stated Complaint: ABDOMINAL PAIN Time Seen by Provider: 12/14/23 11:07 Source: patient Mode of arrival: walk-in Limitations: no limitations History of Present Illness HPI narrative: The patient coming to the ER with almost few days history of right lower quadrant pain, it comes and goes and usually it is associated with some burning sensation. Patient denies any burning with urination he denies any nausea vomiting or any change in bowel movement he does not have the pain at the moment When the patient have the pain usually it is there for few seconds and usually 8 out of 10 and it does not radiate, there is no associated symptoms and there is no relieving factors or position Patient does not have any symptoms otherwise Related Data Home Medications ?Medication ?Instructions ?Recorded ?Confirmed acetaminophen 500 mg tablet 1,000 mg PO Q6H PRN pain 02/25/23 04/11/23 albuterol sulfate 90 mcg/actuation 2 inh inhalation QID PRN shortness 02/25/23 04/11/23 aerosol inhaler (ProAir HFA) of breath or wheezing atorvastatin 40 mg tablet 20 mg PO DAILY 02/25/23 04/11/23 carvedilol 25 mg tablet (Coreg) 25 mg PO BID 02/25/23 04/11/23 fluticasone fur. 200 mcg-umeclid 1 inh inhalation DAILY 02/25/23 04/11/23 62.5 mcg-vilant 25 mcg inhalat.powder (Trelegy Ellipta) hydrochlorothiazide 25 mg tablet 25 mg PO DAILY 02/25/23 04/11/23 insulin detemir U-100 100 unit/mL 16 unit subcut DAILY 02/25/23 04/11/23 (3 mL) subcutaneous pen (Levemir FlexPen) losartan 100 1 tab PO DAILY 02/25/23 04/11/23 mg-hydrochlorothiazide 25 mg tablet (Hyzaar) meloxicam 15 mg tablet 15 mg PO DAILY 02/25/23 04/11/23 metformin 850 mg tablet 850 mg PO DAILY 02/25/23 04/11/23 omega-3 fatty acids-fish oil 360 1 cap PO DAILY 02/25/23 04/11/23 mg-1,200 mg capsule (Fish Oil) omeprazole 40 mg capsule,delayed 40 mg PO DAILY 02/25/23 04/11/23 release Previous Rx's ?Medication ?Instructions ?Recorded alendronate 70 mg tablet (Fosamax) 70 mg PO QWEEK 12 weeks #12 tabs 04/12/23 aspirin 81 mg tablet,delayed 81 mg PO BID 30 days #60 tabs 04/12/23 release (Adult Low Dose Aspirin) cephalexin 500 mg capsule 500 mg PO BID 7 days #14 caps 04/12/23 cholecalciferol (vitamin D3) 125 125 mcg PO DAILY 90 days #90 caps 04/12/23 mcg (5,000 unit) capsule ondansetron 4 mg disintegrating 4 mg PO Q8H PRN nausea and 04/12/23 tablet vomiting 5 days #15 tabs oxycodone-acetaminophen 5 mg-325 1 tab PO Q6H PRN pain 7 days #28 04/12/23 mg tablet (Percocet) tabs sennosides 8.6 mg tablet (Senna 8.6 mg PO DAILY PRN constipation 7 04/12/23 Laxative) days #7 tabs tizanidine 2 mg tablet 2 mg PO TID PRN muscle spasticity 04/12/23 7 days #21 tabs Allergies Allergy/AdvReac Type Severity Reaction Status Date / Time No Known Drug Allergies Allergy Verified 03/18/23 10:14 Review of Systems ROS Status of ROS 10 or more systems reviewed and unremarkable except as noted in history and below [facility] Medical History (Updated 12/14/23 @ 12:47 by Zuleika Cooley MD) 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 - Idiopathic aseptic necrosis of unspecified ankle (ICD-10) Osteoarthritis of right ankle and foot ?M19.071 - Primary osteoarthritis, right ankle and foot (ICD-10) Arthritis ?M19.90 - Unspecified osteoarthritis, unspecified site (ICD-10) Asthma ?J45.909 - Unspecified asthma, uncomplicated (ICD-10) GERD (gastroesophageal reflux disease) ?K21.9 - Gastro-esophageal reflux disease without esophagitis (ICD-10) High cholesterol ?E78.00 - Pure hypercholesterolemia, unspecified (ICD-10) Hypertension ?I10 - Essential (primary) hypertension (ICD-10) Diabetes ?E11.9 - Type 2 diabetes mellitus without complications (ICD-10) Surgical History History of ankle surgery ?Z98.890 - Other specified postprocedural states (ICD-10) Presence of artificial ankle joint ?Z96.669 - Presence of unspecified artificial ankle joint (ICD-10) Family History Other Family history of diabetes mellitus Family history of stroke Social History Within the past year, how often did you have a drink containing alcohol: never Score interpretation: A score less than 4 is consistent with normal alcohol consumption. 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 General: Well-appearing and in no apparent distress. Skin: Warm, dry, no pallor noted. No rash. Head: Normocephalic, atraumatic. Neck: Supple, non-tender. Eye: Pupils are equal, round and EOMI. No scleral icterus. Ears, Nose, Mouth, and Throat: TM are clear, no nasal mucosal hypertrophy. Oral mucosa is moist, no posterior oropharynx erythema, uvula is mid-line Cardiovascular: Regular Rate and Rhythm without murmur, gallop or rub. Respiratory: No accessory muscle use or respiratory distress. Lungs are clear to auscultation, no wheezing, rales or rhonchi Chest Wall: no tenderness Back: No midline thoracic or lumbar vertebral tenderness. No CVA tenderness Musculoskeletal: normal ROM, no calf or popliteal tenderness, no lower extremity edema/swelling GI: Abdomen is soft, non-distended. Normal bowel sounds. No masses appreciated. No tenderness to palpation. No rebound, guarding, or rigidity noted. Neurological: A&O x4. No cranial nerve dysfunction observed. No truncal ataxia. Moves all extremities. Sensation intact. Psychiatric: Cooperative and interactive. Normal mood and affect. Constitutional Vital Signs, click to edit/add: Last Vital Signs Temp 98.2 F 12/14/23 10:57 Pulse 62 12/14/23 10:57 Resp 18 12/14/23 10:57 BP 122/63 12/14/23 10:57 Pulse Ox 99 12/14/23 10:57 O2 Del Method Room Air 12/14/23 10:57 Course Vital Signs Vital signs: Vital Signs Temperature 98.2 F 12/14/23 10:57 Pulse Rate 62 12/14/23 10:57 Respiratory Rate 18 12/14/23 10:57 Blood Pressure 122/63 12/14/23 10:57 Pulse Oximetry 99 12/14/23 10:57 Oxygen Delivery Method Room Air 12/14/23 10:57 Temperature 98.2 F 12/14/23 10:57 Pulse Rate 62 12/14/23 10:57 Respiratory Rate 18 12/14/23 10:57 Blood Pressure 122/63 12/14/23 10:57 Pulse Oximetry 99 12/14/23 10:57 Oxygen Delivery Method Room Air 12/14/23 10:57 MDM - Abdominal Pain MDM Narrative Medical decision making narrative: I could not induce the pain with palpation and the patient presentation right now shows no signs of hernia The patient pain is not associated with carrying anything heavy or any straining and on examination there was no pain with coughing CBC and chemistry showed no acute pathology and the patient CAT scan showed no acute pathology as well The patient presentation could be muscular pain specially after ruling out appendicitis The patient is to follow up with primary care physician in next 2-3 days or to return to the emergency department should any of the signs or symptoms worsen or new symptoms develop. The patient agrees with the following Diagnosis and Treatment plan and the patient will be discharged home. Lab Data Labs: Lab Results 12/14/23 Range/Units 11:20 WBC 5.9 (4.0-11.0) 10^3/uL RBC 4.16 L (4.70-6.10) 10^6/uL Hgb 12.8 L (14.0-18.0) g/dL Hct 38.0 L (42.0-54.0) % MCV 91.3 (80.0-94.0) fL MCH 30.8 (25.9-34.0) pg MCHC 33.7 (29.9-35.2) g/dL RDW 12.5 (11.0-15.0) % Plt Count 171 (150-450) 10^3/uL MPV 10.5 (9.5-13.5) fL Neut % (Auto) 57.0 (43.0-75.0) % Lymph % (Auto) 27.7 (20.5-60.0) % [place] % (Auto) 8.3 (1.7-12.0) % Eos % (Auto) 5.6 (0.9-7.0) % Baso % (Auto) 0.7 (0.2-2.0) % Neut # (Auto) 3.4 (1.4-6.5) 10^3/uL Lymph # (Auto) 1.6 (1.2-3.8) 10^3/uL [place] # (Auto) 0.5 (0.3-0.8) 10^3/uL Eos # (Auto) 0.3 (0.0-0.7) 10^3/uL Baso # (Auto) 0.0 (0.0-0.1) 10^3/uL Abs Immat Gran (auto) 0.04 H (0.00-0.03) 10^3/uL Imm/Tot Granulo (auto) 0.7 H (0.0-0.5) % Sodium 138 (136-145) mmol/L Potassium 4.5 (3.5-5.1) mmol/L Chloride 103 (98-107) mmol/L Carbon Dioxide 21.9 (21.0-32.0) mmol/L Anion Gap 17.6 BUN 39.0 H (7.0-18.0) mg/dL Creatinine 1.53 H (0.70-1.30) mg/dL Est GFR ( Amer) 57 L (>=60) Est GFR (Non-Af Amer) 47 L (>=60) BUN/Creatinine Ratio 25.5 Glucose 151 H (74-106) mg/dL Calcium 8.6 (8.5-10.1) mg/dL Total Bilirubin 0.9 (0.2-1.0) mg/dL AST 51 H (15-37) U/L ALT 78 H (16-63) U/L Alkaline Phosphatase 68 (46-116) U/L Total Protein 7.9 (6.4-8.2) g/dL Albumin 3.8 (3.4-5.0) g/dL Globulin 4.1 g/dL Albumin/Globulin Ratio 0.9 Discharge Plan Discharge Stand Alone Forms: Portal Instructions Chief Complaint: Abdominal Pain Clinical Impression: Abdominal pain Qualifiers: Abdominal location: right lower quadrant Qualified Code(s): R10.31 - Right lower quadrant pain Patient Disposition: Home, Self-Care Time of Disposition Decision: 12:46 Condition: Good Prescriptions / Home Meds: No Action albuterol sulfate [ProAir HFA] 90 mcg/actuation HFA aerosol inhaler 2 inh inhalation QID PRN (Reason: shortness of breath or wheezing) atorvastatin 40 mg tablet 20 mg PO DAILY Rx Instructions: PER RETAIL FILL HX. LAST FILLED 03/27/23 #90 FOR A 90 DAY SUPPLY carvedilol [Coreg] 25 mg tablet 25 mg PO BID Rx Instructions: must administer with a meal/food omega-3 fatty acids-fish oil [Fish Oil] 360-1,200 mg capsule 1 cap PO DAILY hydrochlorothiazide 25 mg tablet 25 mg PO DAILY Levemir FlexPen 100 unit/mL (3 mL) insulin pen 16 unit subcut DAILY losartan-hydrochlorothiazide [Hyzaar] 100-25 mg tablet 1 tab PO DAILY meloxicam 15 mg tablet 15 mg PO DAILY metformin 850 mg tablet 850 mg PO DAILY omeprazole 40 mg capsule,delayed release(DR/EC) 40 mg PO DAILY Trelegy Ellipta 200-62.5-25 mcg blister with device 1 inh inhalation DAILY acetaminophen 500 mg tablet 1,000 mg PO Q6H PRN (Reason: pain) alendronate [Fosamax] 70 mg tablet 70 mg PO QWEEK 84 Days Qty: 12 0RF aspirin [Adult Low Dose Aspirin] 81 mg tablet,delayed release (DR/EC) 81 mg PO BID 30 Days Qty: 60 0RF oxycodone-acetaminophen [Percocet] 5-325 mg tablet 1 tab PO Q6H PRN (Reason: pain) 7 Days Qty: 28 0RF cephalexin 500 mg capsule 500 mg PO BID 7 Days Qty: 14 0RF ondansetron 4 mg tablet,disintegrating 4 mg PO Q8H PRN (Reason: nausea and vomiting) 5 Days Qty: 15 0RF cholecalciferol (vitamin D3) 125 mcg (5,000 unit) capsule 125 mcg PO DAILY 90 Days Qty: 90 0RF sennosides [Senna Laxative] 8.6 mg tablet 8.6 mg PO DAILY PRN (Reason: constipation) 7 Days Qty: 7 0RF tizanidine 2 mg tablet 2 mg PO TID PRN (Reason: muscle spasticity) 7 Days Qty: 21 0RF Print Language: [place] Instructions: Abdominal Pain (ED) Referrals: Shaikh Baker MD [Primary Care Provider] - 1 week
[2023-12-14 12:51] VITALS: BP 118/83; O2SAT 99
[2023-12-14 12:56] VITALS: PULSE 61
== END 2023-12-14 13:24 | disposition home or self-care (01) ==
PROVIDERS: Emergency Provider Emergency Medicine; PCP Internal Medicine
DX: R10.31 Right lower quadrant pain (principal); Z87.891 Personal history of nicotine dependence
CPT/HCPCS: 36415; 74176; 80053; 85025; 99284

== ENCOUNTER 2024-01-13 10:08 | Emergency (ER) | payer BC, SELFPAY ==
[2024-01-13 10:15] VITALS: BP 140/93; PULSE 46; TEMP 36.8; O2SAT 100; BMI 36.8
[2024-01-13] MEDS: PREDNISONE 20 MG TABLET 60 MG PO (10:56)
--- NOTE | 2024-01-13 11:19 | ED_ITS ---
HPI - Skin/Abscess/Foreign Bdy General Chief complaint: Skin/Abscess/Foreign Body Stated complaint: RASH Time Seen by Provider: 01/13/24 10:18 Source: patient Mode of arrival: walk-in Limitations: no limitations History of Present Illness HPI narrative: The patient is coming to us with a rash that he noticed this morning, he mentioned that yesterday he was cutting the grass he does not remember anything of The rash is mostly on the upper extremity on the outer side and it is burning and itching, and the rash is present both upper extremity but mostly on the right side Related Data Home Medications ?Medication ?Instructions ?Recorded ?Confirmed acetaminophen 500 mg tablet 1,000 mg PO Q6H PRN pain 02/25/23 04/11/23 albuterol sulfate 90 mcg/actuation 2 inh inhalation QID PRN shortness 02/25/23 04/11/23 aerosol inhaler (ProAir HFA) of breath or wheezing atorvastatin 40 mg tablet 20 mg PO DAILY 02/25/23 04/11/23 carvedilol 25 mg tablet (Coreg) 25 mg PO BID 02/25/23 04/11/23 fluticasone fur. 200 mcg-umeclid 1 inh inhalation DAILY 02/25/23 04/11/23 62.5 mcg-vilant 25 mcg inhalat.powder (Trelegy Ellipta) hydrochlorothiazide 25 mg tablet 25 mg PO DAILY 02/25/23 04/11/23 insulin detemir U-100 100 unit/mL 16 unit subcut DAILY 02/25/23 04/11/23 (3 mL) subcutaneous pen (Levemir FlexPen) losartan 100 1 tab PO DAILY 02/25/23 04/11/23 mg-hydrochlorothiazide 25 mg tablet (Hyzaar) meloxicam 15 mg tablet 15 mg PO DAILY 02/25/23 04/11/23 metformin 850 mg tablet 850 mg PO DAILY 02/25/23 04/11/23 omega-3 fatty acids-fish oil 360 1 cap PO DAILY 02/25/23 04/11/23 mg-1,200 mg capsule (Fish Oil) omeprazole 40 mg capsule,delayed 40 mg PO DAILY 02/25/23 04/11/23 release Previous Rx's ?Medication ?Instructions ?Recorded alendronate 70 mg tablet (Fosamax) 70 mg PO QWEEK 12 weeks #12 tabs 04/12/23 aspirin 81 mg tablet,delayed 81 mg PO BID 30 days #60 tabs 04/12/23 release (Adult Low Dose Aspirin) cephalexin 500 mg capsule 500 mg PO BID 7 days #14 caps 04/12/23 cholecalciferol (vitamin D3) 125 125 mcg PO DAILY 90 days #90 caps 04/12/23 mcg (5,000 unit) capsule ondansetron 4 mg disintegrating 4 mg PO Q8H PRN nausea and 04/12/23 tablet vomiting 5 days #15 tabs oxycodone-acetaminophen 5 mg-325 1 tab PO Q6H PRN pain 7 days #28 04/12/23 mg tablet (Percocet) tabs sennosides 8.6 mg tablet (Senna 8.6 mg PO DAILY PRN constipation 7 04/12/23 Laxative) days #7 tabs tizanidine 2 mg tablet 2 mg PO TID PRN muscle spasticity 04/12/23 7 days #21 tabs diphenhydramine HCl 2 % topical 1 applic topical BID PRN itching 01/13/24 gel (Benadryl) #103 mL prednisone 20 mg tablet 40 mg (2 x 20 mg) PO DAILY 4 days 01/13/24 #8 tabs Allergies Allergy/AdvReac Type Severity Reaction Status Date / Time No Known Drug Allergies Allergy Verified 01/13/24 10:15 Review of Systems ROS Status of ROS 10 or more systems reviewed and unremark able except as noted in history and below [facility] Medical History (Updated 01/13/24 @ 10:47 by Zuleika Cooley MD) 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 - Idiopathic aseptic necrosis of unspecified ankle (ICD-10) Osteoarthritis of right ankle and foot ?M19.071 - Primary osteoarthritis, right ankle and foot (ICD-10) Arthritis ?M19.90 - Unspecified osteoarthritis, unspecified site (ICD-10) Asthma ?J45.909 - Unspecified asthma, uncomplicated (ICD-10) GERD (gastroesophageal reflux disease) ?K21.9 - Gastro-esophageal reflux disease without esophagitis (ICD-10) High cholesterol ?E78.00 - Pure hypercholesterolemia, unspecified (ICD-10) Hypertension ?I10 - Essential (primary) hypertension (ICD-10) Diabetes ?E11.9 - Type 2 diabetes mellitus without complications (ICD-10) Surgical History History of ankle surgery ?Z98.890 - Other specified postprocedural states (ICD-10) Presence of artificial ankle joint ?Z96.669 - Presence of unspecified artificial ankle joint (ICD-10) Family History Other Family history of diabetes mellitus Family history of stroke Social History Within the past year, how often did you have a drink containing alcohol: never Score interpretation: A score less than 4 is consistent with normal alcohol consumption. 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 Skin examination: Patient have a maculopapular rash that is on the upper extremity bilaterally mostly on the right side shoulder as well as the left forearm, the rash is mostly secondary to contact dermatitis General: Well-appearing and in no apparent distress. Skin: Warm, dry, no pallor noted. No rash. Head: Normocephalic, atraumatic. Neck: Supple, non-tender. Eye: Pupils are equal, round and EOMI. No scleral icterus. Ears, Nose, Mouth, and Throat: TM are clear, no nasal mucosal hypertrophy. Oral mucosa is moist, no posterior oropharynx erythema, uvula is mid-line Cardiovascular: Regular Rate and Rhythm without murmur, gallop or rub. Respiratory: No accessory muscle use or respiratory distress. Lungs are clear to auscultation, no wheezing, rales or rhonchi Chest Wall: no tenderness Back: No midline thoracic or lumbar vertebral tenderness. No CVA tenderness Musculoskeletal: normal ROM, no calf or popliteal tenderness, no lower extremity edema/swelling GI: Abdomen is soft, non-distended. Normal bowel sounds. No masses appreciated. No tenderness to palpation. No rebound, guarding, or rigidity noted. Neurological: A&O x4. No cranial nerve dysfunction observed. No truncal ataxia. Moves all extremities. Sensation intact. Psychiatric: Cooperative and interactive. Normal mood and affect. Constitutional Vital Signs, click to edit/add: Last Vital Signs Temp 98.2 F 01/13/24 10:15 Pulse 46 L 01/13/24 10:15 Resp 16 01/13/24 10:15 BP 140/93 H 01/13/24 10:15 Pulse Ox 100 01/13/24 10:15 O2 Del Method Room Air 01/13/24 10:15 Course Vital Signs Vital signs: Vital Signs Temperature 98.2 F 01/13/24 10:15 Pulse Rate 46 L 01/13/24 10:15 Respiratory Rate 16 01/13/24 10:15 Blood Pressure 140/93 H 01/13/24 10:15 Pulse Oximetry 100 01/13/24 10:15 Oxygen Delivery Method Room Air 01/13/24 10:15 Temperature 98.2 F 01/13/24 10:15 Pulse Rate 46 L 01/13/24 10:15 Respiratory Rate 16 01/13/24 10:15 Blood Pressure 140/93 H 01/13/24 10:15 Pulse Oximetry 100 01/13/24 10:15 Oxygen Delivery Method Room Air 01/13/24 10:15 MDM - Skin/Abscess/Foreign Bdy MDM Narrative Medical decision making narrative: The patient rash is mostly secondary to contact dermatitis He was instructed with his history of diabetes that he need to monitor his symptoms in addition to the fact that he will be discharged with prednisone that might increase his blood sugar over the last few days but in case of contact dermatitis he definitely need some anti-inflammatory Patient understood The patient also understand that in case of any new symptoms or worsening of his current symptoms he is to come back to the ER The patient is to follow up with primary care physician in next 2-3 days or to return to the emergency department should any of the signs or symptoms worsen or new symptoms develop. The patient agrees with the following Diagnosis and Treatment plan and the patient will be discharged home. Discharge Plan Discharge Stand Alone Forms: Portal Instructions Chief Complaint: Skin/Abscess/Foreign Body Clinical Impression: Contact dermatitis Qualifiers: Contact dermatitis type: allergic Contact dermatitis trigger: unspecified trigger Qualified Code(s): L23.9 - Allergic contact dermatitis, unspecified cause Patient Disposition: Home, Self-Care Time of Disposition Decision: 10:47 Condition: Good Prescriptions / Home Meds: New prednisone 20 mg tablet 40 mg PO DAILY 4 Days Qty: 8 0RF Benadryl 2 % gel 1 applic topical BID PRN (Reason: itching) Qty: 103 0RF No Action albuterol sulfate [ProAir HFA] 90 mcg/actuation HFA aerosol inhaler 2 inh inhalation QID PRN (Reason: shortness of breath or wheezing) atorvastatin 40 mg tablet 20 mg PO DAILY Rx Instructions: PER RETAIL FILL HX. LAST FILLED 03/27/23 #90 FOR A 90 DAY SUPPLY carvedilol [Coreg] 25 mg tablet 25 mg PO BID Rx Instructions: must administer with a meal/food omega-3 fatty acids-fish oil [Fish Oil] 360-1,200 mg capsule 1 cap PO DAILY hydrochlorothiazide 25 mg tablet 25 mg PO DAILY Levemir FlexPen 100 unit/mL (3 mL) insulin pen 16 unit subcut DAILY losartan-hydrochlorothiazide [Hyzaar] 100-25 mg tablet 1 tab PO DAILY meloxicam 15 mg tablet 15 mg PO DAILY metformin 850 mg tablet 850 mg PO DAILY omeprazole 40 mg capsule,delayed release(DR/EC) 40 mg PO DAILY Trelegy Ellipta 200-62.5-25 mcg blister with device 1 inh inhalation DAILY acetaminophen 500 mg tablet 1,000 mg PO Q6H PRN (Reason: pain) alendronate [Fosamax] 70 mg tablet 70 mg PO QWEEK 84 Days Qty: 12 0RF aspirin [Adult Low Dose Aspirin] 81 mg tablet,delayed release (DR/EC) 81 mg PO BID 30 Days Qty: 60 0RF oxycodone-acetaminophen [Percocet] 5-325 mg tablet 1 tab PO Q6H PRN (Reason: pain) 7 Days Qty: 28 0RF cephalexin 500 mg capsule 500 mg PO BID 7 Days Qty: 14 0RF ondansetron 4 mg tablet,disintegrating 4 mg PO Q8H PRN (Reason: nausea and vomiting) 5 Days Qty: 15 0RF cholecalciferol (vitamin D3) 125 mcg (5,000 unit) capsule 125 mcg PO DAILY 90 Days Qty: 90 0RF sennosides [Senna Laxative] 8.6 mg tablet 8.6 mg PO DAILY PRN (Reason: constipation) 7 Days Qty: 7 0RF tizanidine 2 mg tablet 2 mg PO TID PRN (Reason: muscle spasticity) 7 Days Qty: 21 0RF Print Language: [place] Instructions: Contact Dermatitis (ED) Referrals: Shaikh Baker MD [Primary Care Provider] - 1 week Discharge Date/Time: 01/13/24 10:59
== END 2024-01-13 10:59 | disposition home or self-care (01) ==
PROVIDERS: Emergency Provider Emergency Medicine; PCP Internal Medicine
DX: L23.9 Allergic contact dermatitis, unspecified cause (principal); E11.9 Type 2 diabetes mellitus without complications; Z79.4 Long term (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; Z87.891 Personal history of nicotine dependence
CPT/HCPCS: 99283; J7512

== ENCOUNTER 2024-01-16 14:54 | Outpatient (OUT) | payer BC, SELFPAY ==
--- NOTE | 2024-01-16 | XR_ITS ---
The [address] [address] Patient Name: LAVERN GARCIA MRN: [id number] date: 1965 Sex: M Assigned Patient Location: Current Patient Location: Accession/Order Number: [id number] Exam Date: 01/16/2024 14:55 Report Date: 01/17/2024 06:46 At the request of: LIZETH MARTIN Procedure: XR ankle RT min 3V PROCEDURE: XR ankle RT min 3V HISTORY: RIGHT ANKLE PAIN COMPARISON: XR ankle right 10/22/2023 FINDINGS: BONES:Prior ankle and hindfoot fusion via intramedullary marci and locking screws. Prosthetic replacement of the talus. No appreciable hardware fracture loosening. No acute bone fracture or dislocation. SOFT TISSUES:Soft tissue swelling surrounding the ankle. EFFUSION:None visible. OTHER: Negative. XR/XR ankle RT min 3V IMPRESSION: 1. Stable surgical changes without evidence of hardware failure or change in alignment. Electronically authenticated by: MICHELLE IBRAHIM Date: 01/17/2024 06:46
--- OUTSIDE RECORDS SUMMARY | 2024-01-16 15:06 | XMS_ITS | CCD ---
Author Organization [facility] ion [facility] Care Team Providers Care Entry Level Software Engineer Name Role Phone MD Sav Andrews Attending Provider MD Deana Baker Primary Care Provider [phone] [address] ASA AL Attending Unavailable ACACIA JENKINS [...] Admitting Unavailable Shaikh Baker Primary Care Unavailable Silevr Briceño Attending Unavailable Silver Briceño Admitting Unavailable Shaikh Baker Primary Care Unavailable Sav Andrews Admitting Unavailable Sav Andrews Attending Unavailable Silver Briceño Attending Unavailable Silver Briceño Admitting Unavailable Shaikh Baker Primary Care Unavailable SHAIKH BAKER Attending Unavailable SHAIKH BAKER Attending Unavailable SHAIKH BAKER Attending Unavailable Medications Current Medications Medication Drug Class(es) Dates Sig (Normalized) Sig (Original) [id number] 200 actuat albuterol 0.09 mg/actuat metered dose [...] MG PO Daily December 22, 2021 12:00am [place] 4-Ixw-Tit-Fish Oil (Fish Oil) 1,200 (144-216) mg Capsule (4 sources) Start: 12-22-2021 take 1 capsule by mouth twice daily [place] 1-Rdh-Wzv-Fish Oil (Fish Oil) 1,200 (144-216) mg Capsule [...] Briceño on 09-10-2022 Glucose [Mass/Vol] 137 mg/dL [facility] Comment on above: Random Glucose Refer ence Range is dependent on time and content of last meal. Glucose of more than 200 mg/dL in a nonstressed, ambulatory subject supports the diagnosis of Diabetes Mellitus. Glucose [Mass/Vol] 131 mg/dL [facility] Comment on above: Random Glucose Refer ence Range is dependent on time and content of last meal. Glucose of more than 200 mg/dL in a nonstressed, ambulatory subject supports the diagnosis of Diabetes Mellitus. Glucose Poct Glucometerson 0 09-10-2022 Glucose [Mass/Vol] 137 mg/dL Normal [facility] Comment on above: Result Comment: [facility] Glucose Reference Range is dependent on time and content of last meal. Glucose of more than 200 mg/dL in a nonstressed, ambulatory subject supports the diagnosis of Diabetes Mellitus. PERFORMED BY: [facility] [address] [id number] PATHOLOGIST GARAGE ATTENDANT TEOFILO KHAN M.D. Performed By: #### G LULS #### Point of Care testing , Glucose [Mass/Vol] 131 mg/dL Normal [facility] Comment on above: Result Comment: [facility] Glucose Reference Range is dependent on time and content of last meal. Glucose of more than 200 mg/dL in a nonstressed, ambulatory subject supports the diagnosis of Diabetes Mellitus. PERFORMED BY: [facility] [address] [facility] [address] PATHOLOGIST GARAGE ATTENDANT TEOFILO KHAN M.D. Performed By: #### G LULS #### Point of Care testing , Basic Metabolic Panelon 04-0 Anion gap [Moles/Vol] 13.5 mmol/L Normal 6.0-15.0 [facility] Comment on above: Performed By: #### C BC, BMP #### [facility] [address] Calcium [Mass/Vol] 9.4 mg/dL Normal 8.6-10.3 [facility] Comment on above: Result Comment: PERF ORMED BY: [place] [address] PATHOLOGIST GARAGE ATTENDANT TEOFILO KHAN M.D. Performed By: #### C BC, BMP #### [address] Chloride [Moles/Vol] 102 mmol/L Normal 98-107 [facility] Comment on above: Performed By: #### C BC, BMP #### [address] CO2 [Moles/Vol] 28.5 mmol/L Normal 21.0-31.0 [facility] Comment on above: Performed By: #### C BC, BMP #### [address] Creatinine [Mass/Vol] 0.99 mg/dL Normal 0.70-1.30 [facility] Comment on above: Performed By: #### C BC, BMP #### [place] [address] [place] GFR/1.73 sq M.predicted MDRD (S/P/Bld) [Vol rate/Area] mL/min/{1.73_m2} Normal [facility] Comment on above: Performed By: #### C BC, BMP #### [address] Glucose [Mass/Vol] 114 mg/dL High 70-100 [facility] Comment on above: Result Comment: [place] Glucose Reference Range is dependent on time and content of last meal. Glucose of more than 200 mg/dL in a nonstressed, ambulatory subject supports the diagnosis of Diabetes Mellitus. ADA recommended reference range Performed By: #### C BC, BMP #### [place] [address] [place] Potassium [Moles/Vol] 4.0 mmol/L Normal 3.5-5.1 [facility] Comment on above: Performed By: #### C BC, BMP #### [facility] [address] Sodium [Moles/Vol] 140 mmol/L Normal 136-145 [facility] Comment on above: Performed By: #### C BC, BMP #### [facility] [address] Urea nitrogen [Mass/Vol] 21 mg/dL Normal 7-25 [facility] Comment on above: Performed By: #### C BC, BMP #### [facility] [address] Basophils Auto (Bld) [#/Vol] Ordered By: Silver Briceño on 08-30-2022 Basophils (Bld) [#/Vol] 0.0 10*3/uL 0.0-0.2 [facility] Basophils/100 WBC Auto (Bld) Ordered By: Silver Briceño on 08-30-2022 Basophils/100 WBC (Bld) 0.7 % . F [facility] Calcium [Mass/volume] in Ser um or PlasmaOrdered By: Silver Briceño on 08-30-2022 Calcium [Mass/Vol] 9.4 mg/dL 8.6-10.3 [facility] Carbon dioxide, total [Moles /volume] in Serum or PlasmaOrdered By: Silver Briceño on 08-30-2022 CO2 [Moles/Vol] 28.5 mmol/L 21.0-31.0 [facility] Chloride [Moles/volume] in S gela or PlasmaOrdered By: Silver Briceño on 08-30-2022 Chloride [Moles/Vol] 102 mmol/L 98-107 [facility] Complete Blood Count Auto Di ffon 08-30-2022 Basophils (Bld) [#/Vol] 0.0 10*3/uL Normal 0.0-0.2 [facility] Comment on above: Result Comment: PERF ORMED BY: [facility] [address] [facility] [place] [address] PATHOLOGIST GARAGE ATTENDANT TEOFILO KHAN M.D. Performed By: #### C BC, BMP #### [facility] [address] [id number] [place] Basophils/100 WBC (Bld) 0.7 % Normal . [facility] Comment on above: Performed By: #### C BC, BMP #### [facility] [address] [id number] [place] Eosinophils (Bld) [#/Vol] 0.3 10*3/uL Normal 0.0-0.45 [facility] Comment on above: Performed By: #### C BC, BMP #### [facility] [address] [place] [address] [place] Eosinophils/100 WBC (Bld) 6.1 % Normal . [facility] Comment on above: Performed By: #### C BC, BMP #### [facility] [address] Erythrocyte distribution width (RBC) [Ratio] 14.5 % Normal 12.0-14.8 [facility] Comment on above: Performed By: #### C BC, BMP #### [facility] [address] [id number] [place] Hematocrit (Bld) [Volume fraction] 36.5 % Low 38.8-50.0 [facility] Comment on above: Performed By: #### C BC, BMP #### [facility] [address] [id number] [place] Hemoglobin (Bld) [Mass/Vol] 12.5 g/dL Low 13.0-17.0 [facility] Comment on above: Performed By: #### C BC, BMP #### [facility] [address] [id number] [place] Lymphocytes (Bld) [#/Vol] 1.8 10*3/uL Normal 1.00-4.8 [facility] Comment on above: Performed By: #### C BC, BMP #### [facility] [address] [id number] [place] Lymphocytes/100 WBC (Bld) 35.5 % Normal . [facility] Comment on above: Performed By: #### C BC, BMP #### [facility] [address] MCH (RBC) [Entitic mass] 29.2 pg Normal 27.5-35.2 [facility] Comment on above: Performed By: #### C BC, BMP #### [facility] [address] MCV (RBC) [Entitic vol] 85.1 fL Normal 83.5-101 [facility] Comment on above: Performed By: #### C BC, BMP #### [facility] [address] Mean Corpuscular HGB Conc 34.3 g/dL Normal 32.5-35.6 [facility] Comment on above: Performed By: #### C BC, BMP #### [facility] [address] [place] [address] [place] Monocytes (Bld) [#/Vol] 0.4 10*3/uL Normal 0.0-0.8 [facility] Comment on above: Performed By: #### C BC, BMP #### [facility] [address] [place] [address] [place] Monocytes/100 WBC (Bld) 8.2 % Normal . [facility] Comment on above: Performed By: #### C BC, BMP #### [facility] [address] [place] [address] [place] Neutrophils (Bld) [#/Vol] 2.5 10*3/uL Normal 1.8-7.7 [facility] Comment on above: Performed By: #### C BC, BMP #### [facility] [address] [place] [address] [place] Neutrophils/100 WBC (Bld) 49.5 % Normal . [facility] Comment on above: Performed By: #### C BC, BMP #### [facility] [address] [place] [address] [place] NRBC% 0.2 /100{WBC} Normal 0-0.5 [facility] Comment on above: Performed By: #### C BC, BMP #### [facility] [address] [id number] [facility] Platelet mean volume (Bld) [Entitic vol] 8.8 fL Normal 6.6-10.1 [facility] Comment on above: Performed By: #### C BC, BMP #### [facility] [address] [id number] [place] Platelets (Bld) [#/Vol] 155 10*3/uL Normal 150-450 [facility] Comment on above: Performed By: #### C SAI, BMP #### [facility] [address] RBC (Bld) [#/Vol] 4.29 10*6/uL Normal 3.90-5.60 [facility] Comment on above: Performed By: #### C SAI, BMP #### [facility] [address] [place] [address] [facility] WBC (Bld) [#/Vol] 5.1 10*3/uL Normal 4.1-10.5 [facility] Comment on above: Performed By: #### C SAI, BMP #### [facility] [address] Creatinine [Mass/volume] in Serum or PlasmaOrdered By: Silver Briceño on 08-30-2022 Creatinine [Mass/Vol] 0.99 mg/dL 0.70-1.30 [facility] ECG 12 lead ECGon 08-30-2022 ECG 12 lead ECG [facility] [place] [address] [place] [place] [address] Electrocardiograph Report Signed Patient: Lavern Escobedo MR#: [id number] : 1965 Acct:[id number] Age/Sex: 57 / M ADM Date: 08/30/22 Loc: [facility]: Silver Briceño DO Ordering Provider: [...] previous ECGs available Conf[facility] by [id number] on 08/31/2022 12:23:25 PM Referred By: FREDDY Electronically Signed By:LEANNA LOVE MD [facility] Transcribed By: MUS Signed By Leo Love MD 08/31/22 1223 Normal [facility] Eosinophils Auto (Bld) [#/Vo l]Ordered By: Silver Briceño on 08-30-2022 Eosinophils (Bld) [#/Vol] 0.3 10*3/uL 0.0-0.45 [facility] Eosinophils/100 WBC Auto (Bl d)Ordered By: Silver Briceño on 08-30-2022 Eosinophils/100 WBC (Bld) 6.1 % . [facility] Erythrocyte distribution wid th Auto (RBC) [Ratio]Ordered By: Silver Briceño on 08-30-2022 Erythrocyte distribution width (RBC) [Ratio] 14.5 % 12.0-14.8 [facility] Glucose [Mass/volume] in Ser um or PlasmaOrdered By: Silver Briceño on 08-30-2022 Glucose [Mass/Vol] 114 mg/dL 70-100 [facility] Comment on above: ADA recommended refe rence rangeRandom Glucose Reference Range is dependent on time and content of last meal. Glucose of more than 200 mg/dL in a nonstressed, ambulatory subject supports the diagnosis of Diabetes Mellitus. Hematocrit Auto (Bld) [Volum e fraction]Ordered By: Silver Briceño on 08-30-2022 Hematocrit (Bld) [Volume fraction] 36.5 % 38.8-50.0 [facility] Hemoglobin [Mass/volume] in BloodOrdered By: Silver Briceño on 08-30-2022 Hemoglobin (Bld) [Mass/Vol] 12.5 g/dL 13.0-17.0 [facility] Leukocytes [#/volume] correc shashi for nucleated erythrocytes in Blood by Automated counOrdered By: Silver Briceño on 08-30-2022 WBC corrected for nucl RBC Auto (Bld) [#/Vol] 5.1 10*3/uL 4.1-10.5 [facility] Lymphocytes Auto (Bld) [#/Vo l]Ordered By: Silver Briceño on 08-30-2022 Lymphocytes (Bld) [#/Vol] 1.8 10*3/uL 1.00-4.8 [facility] Lymphocytes/100 WBC Auto (Bl d)Ordered By: Silver Briceño on 08-30-2022 Lymphocytes/100 WBC (Bld) 35.5 % . [facility] MCH Auto (RBC) [Entitic mass ]Ordered By: Silver Briceño on 08-30-2022 MCH (RBC) [Entitic mass] 29.2 pg 27.5-35.2 [facility] MCHC Auto (RBC) [Mass/Vol]Or dered By: Silver Briceño on 08-30-2022 MCHC (RBC) [Mass/Vol] 34.3 g/dL 32.5-35.6 [facility] MCV Auto (RBC) [Entitic vol] Ordered By: Silver Briceño on 08-30-2022 MCV (RBC) [Entitic vol] 85.1 fL 83.5-101 [facility] Monocytes Auto (Bld) [#/Vol] Ordered By: Silver Briceño on 08-30-2022 Monocytes (Bld) [#/Vol] 0.4 10*3/uL 0.0-0.8 [facility] Monocytes/100 WBC Auto (Bld) Ordered By: Silver Briceño on 08-30-2022 Monocytes/100 WBC (Bld) 8.2 % . F [facility] Neutrophils Auto (Bld) [#/Vo l]Ordered By: Silver Briceño on 08-30-2022 Neutrophils (Bld) [#/Vol] 2.5 10*3/uL 1.8-7.7 [facility] Neutrophils/100 WBC Auto (Bl d)Ordered By: Silver Briceño on 08-30-2022 Neutrophils/100 WBC (Bld) 49.5 % . [facility] No Panel InformationOrdered By: Silver Briceño on 08-30-2022 Estimated GFR (CKD-EPI) > 60.0 mL/Min [facility] Creatinine Clearance (Chem N/A [facility] Nucleated erythrocytes [Pres ence] in Blood by Automated countOrdered By: Silver Briceño on 08-30-2022 Nucleated RBC Auto Ql (Bld) 0.2 /100{WBC} 0-0.5 [facility] Platelet mean volume Auto (B ld) [Entitic vol]Ordered By: Silver Briceño on 08-30-2022 Platelet mean volume (Bld) [Entitic vol] 8.8 fL 6.6-10.1 [facility] Platelets Auto (Bld) [#/Vol] Ordered By: Silver Briceño on 08-30-2022 Platelets (Bld) [#/Vol] 155 10*3/uL 150-450 [facility] Potassium [Moles/volume] in Serum or PlasmaOrdered By: Silver Briceño on 08-30-2022 Potassium [Moles/Vol] 4.0 mmol/L 3.5-5.1 [facility] RBC Auto (Bld) [#/Vol]Ordere d By: Silver Briceño on 08-30-2022 RBC (Bld) [#/Vol] 4.29 10*6/uL 3.90-5.60 [facility] Serum or plasma anion gap de terminationOrdered By: Silver Briceño on 08-30-2022 Anion gap [Moles/Vol] 13.5 mmol/L 6.0-15.0 [facility] Sodium [Moles/volume] in Ser um or PlasmaOrdered By: Silver Briceño on 08-30-2022 Sodium [Moles/Vol] 140 mmol/L 136-145 [facility] Urea nitrogen [Mass/volume] in Serum or PlasmaOrdered By: Silver Briceño on 08-30-2022 Urea nitrogen [Mass/Vol] 21 mg/dL 7-25 [facility] WBC Auto (Bld) [#/Vol]Ordere d By: Silver Briceño on 08-30-2022 WBC (Bld) [#/Vol] 5.1 10*3/uL 4.1-10.5 [facility] GLYCOHEMOGLOBIN A1Con 2022 ADA RECOMMENDATION SEE BELOW Normal [facility] Comment on above: Result Comment: ADA RECOMMENDED LIMIT 4.0 - 6.0 ADA THERAPEUTIC TARGET < 7.0 ACTION SUGGESTED > 7.0 Performed By: #### A 1C #### [facility] [address] [address] [address] Idania Tai Glucose [Mass/Vol] 243 mg/dL Normal [facility] Comment on above: Performed By: #### A 1C #### [facility] [address] [address] [address] Idania Tai HbA1c (Bld) [Mass fraction] 10.1 % Critically high 4.5-6.2 [facility] Comment on above: Performed By: #### A 1C #### [facility] [address] [place] [address] Dr. Idania Tai LIPID PROFILEon 07-07-2022 CHOL-HDL RATIO NORM SEE BELOW Normal [facility] Comment on above: Result Comment: 3.3 - 4.4 LOW RISK 4.4 - 7.1 AVERAGE RISK 7.1 - 11.0 MODERATE RISK >11.0 HIGH RISK Performed By: #### B MP, LIPID #### [facility] [address] [place] [address] Dr. Idania Tai Cholesterol [Mass/Vol] 172 mg/dL Normal <=200 [facility] Comment on above: Performed By: #### B MP, LIPID #### [facility] [address] [place] [address] Dr. Idania Tai Cholesterol in HDL [Mass/Vol] 48 mg/dL Normal 40-60 [facility] Comment on above: Performed By: #### B MP, LIPID #### [facility] [address] [address] [address] Idania Tai Cholesterol in LDL [Mass/Vol] 95.6 mg/dL Normal [facility] Comment on above: Performed By: #### B MP, LIPID #### [facility] [address] [address] [address] Idania Tai Cholesterol.total/Choles terol in HDL [Mass ratio] 3.6 {ratio} Normal [facility] Comment on above: Performed By: #### B MP, LIPID #### [facility] [address] [place] [address] Dr. Idania Tai HDL NORMAL > or = 60 mg/dl - LOW CARDIOVASCULAR RISK <40 mg/dl - HIGH CARDIOVASCULAR RISK Normal [facility] Comment on above: Performed By: #### B MP, LIPID #### [facility] [address] [place] [address] Dr. Idania Tai LDL CALC NORMAL SEE BELOW Normal [facility] Comment on above: Result Comment: <100 mg/dl OPTIMAL 100 - 129 mg/dl NEAR OR ABOVE OPTIMAL 130 - 159 mg/dl BORDERLINE HIGH 160 - 189 mg/dl HIGH >190 mg/dl VERY HIGH Performed By: #### B MP, LIPID #### [facility] [address] [place] [address] Dr. Idania Tai Triglyceride [Mass/Vol] 142 mg/dL Normal <=150 [facility] Comment on above: Performed By: #### B MP, LIPID #### [facility] [address] [place] [address] Dr. Idania Tai VLDL CALC 28.4 mg/dL Normal [facility] Comment on above: Performed By: #### B MP, LIPID #### [facility] [address] [place] [address] Dr. Idania Tai PROF CHEM 8 (BAS METB)on Anion gap [Moles/Vol] 11.0 mmol/L Normal [facility] Comment on above: Performed By: #### B MP, LIPID #### [facility] [address] [place] [address] Dr. Idania Tai Calcium [Mass/Vol] 9.1 mg/dL Normal 8.5-10.1 [facility] Comment on above: Performed By: #### B MP, LIPID #### [facility] [address] [place] [address] Dr. Idania Tai Chloride [Moles/Vol] 100 mmol/L Normal 98-107 [facility] Comment on above: Performed By: #### B MP, LIPID #### [facility] [address] [address] [address] Idania Tai CO2 [Moles/Vol] 32.6 mmol/L Critically high 21.0-32.0 [facility] Comment on above: Performed By: #### B MP, LIPID #### [facility] [address] [address] [address] Idania Tai Creatinine [Mass/Vol] 0.81 mg/dL Normal 0.70-1.30 [facility] Comment on above: Performed By: #### B MP, LIPID #### [facility] [address] [address] [address] Idania Tai EGFR-AF NEW ZEALANDER >60 Normal >=60 [facility] Comment on above: Performed By: #### B MP, LIPID #### [facility] [address] [place] [address] Dr. Idania Tai EGFR-NON AF NEW ZEALANDER >60 Normal >=60 [facility] Comment on above: Performed By: #### B MP, LIPID #### [facility] [address] [address] [address] Idania Tai Glucose [Mass/Vol] 157 mg/dL Critically high 74-106 [facility] Comment on above: Performed By: #### B MP, LIPID #### [facility] [address] [place] [address] Dr. Idania Tai Potassium [Moles/Vol] 3.6 mmol/L Normal 3.5-5.1 [facility] Comment on above: Performed By: #### B MP, LIPID #### [facility] [address] [address] [address] Idania Tai Sodium [Moles/Vol] 140 mmol/L Normal 136-145 [facility] Comment on above: Performed By: #### B MP, LIPID #### [facility] [address] [address] [address] Idania Tai Urea nitrogen [Mass/Vol] 16.0 mg/dL Normal 7.0-18.0 [facility] Comment on above: Performed By: #### B MP, LIPID #### [facility] [address] [address] [address] Idania Tai Urea nitrogen/Creatinine [Mass ratio] 19.8 mg/mg Normal [facility] Comment on above: Performed By: #### B MP, LIPID #### [facility] [address] [address] [address] Idania Tai PROF CHEM 8 (BAS METB)on Anion gap [Moles/Vol] 16.1 mmol/L Normal [facility] Comment on above: Performed By: #### B MP #### [facility] [address] [address] [address] Idania Tai Calcium [Mass/Vol] 9.4 mg/dL Normal 8.5-10.1 [facility] Comment on above: Performed By: #### B MP #### [facility] [address] [address] [address] Idania Tai Chloride [Moles/Vol] 98 mmol/L Normal 98-107 [facility] Comment on above: Performed By: #### B MP #### [facility] [address] [address] [address] Idania Tai CO2 [Moles/Vol] 26.0 mmol/L Normal 21.0-32.0 [facility] Comment on above: Performed By: #### B MP #### [facility] [address] [address] [address] Idania Tai Creatinine [Mass/Vol] 0.78 mg/dL Normal 0.70-1.30 [facility] Comment on above: Performed By: #### B MP #### [facility] [address] [address] [address] Idania Tai EGFR-AF NEW ZEALANDER >60 Normal >=60 [facility] Comment on above: Performed By: #### B MP #### [facility] [address] [address] [address] Idania Tai EGFR-NON AF NEW ZEALANDER >60 Normal >=60 [facility] Comment on above: Performed By: #### B MP #### [facility] [address] [address] [address] Idania Tai Glucose [Mass/Vol] 131 mg/dL Critically high 74-106 T [facility] Comment on above: Performed By: #### B MP #### [facility] [address] [address] [address] Idania Tai Potassium [Moles/Vol] 4.1 mmol/L Normal 3.5-5.1 [facility] Comment on above: Performed By: #### B MP #### [facility] [address] [address] [address] Idania Tai Sodium [Moles/Vol] 136 mmol/L Normal 136-145 [facility] Comment on above: Performed By: #### B MP #### [facility] [address] [address] [address] Idania Tai Urea nitrogen [Mass/Vol] 19.0 mg/dL Critically high 7.0-18 .0 [facility] Comment on above: Performed By: #### B MP #### [facility] [address] [address] [address] Idania Tai Urea nitrogen/Creatinine [Mass ratio] 24.4 mg/mg Normal [facility] Comment on above: Performed By: #### B MP #### [facility] [address] [address] [address] Idania Tai Glucose Glucometer (dC) [M ass/Vol]Ordered By: Sav Andrews on 12-22-2021 Glucose [Mass/Vol] 113 mg/dL [facility] Comment on above: Random Glucose Refer ence Range is dependent on time and content of last meal. Glucose of more than 200 mg/dL in a nonstressed, ambulatory subject supports the diagnosis of Diabetes Mellitus. Glucose Poct Glucometerson 0 12-22-2021 Glucose [Mass/Vol] 113 mg/dL Normal [facility] Comment on above: Result Comment: [place] om Glucose Reference Range is dependent on time and content of last meal. Glucose of more than 200 mg/dL in a nonstressed, ambulatory subject supports the diagnosis of Diabetes Mellitus. PERFORMED BY: [place] [address] PATHOLOGIST GARAGE ATTENDANT TEOFILO KHAN M.D. Performed By: #### G [...] developed and its performance characteristic determined by [employer] and validated at [facility]. This test has not been [...] for SARS Antigen by SIN PERFORMED BY: [address] [address] PATHOLOGIST GARAGE ATTENDANT TEOFILO KHAN M.D. [facility] Comment on above: Performed By: #### C OVID-19 MAYRA, SOFIANEG #### [address] [place] [address] [place] COVID-19 SOFIAOrdered By: Bebe mittalon Darryl on 12-20-2021 SARS-CoV+SARS-CoV-2 (COVID-19) Ag IA.rapid Ql (Resp) Negative Negative [facility] Comment on above: This is a duplicate Mayra SARS Antigen (SIN) result to be used for statistical tracking purpose only. No Panel InformationOrdered By: Sav Andrews on 12-20-2021 SARS Antigen (LFIA) [facility] Mayra Ag Negativeon 12-21-19 22 Mayra Ag Negative Negative Normal Negative [facility] Comment on above: Result Comment: This is a duplicate Mayra SARS Antigen (SIN) result to be used for statistical tracking purpose only. PERFORMED BY: [place] [address] PATHOLOGIST GARAGE ATTENDANT TEOFILO KHAN M.D. Performed By: #### C OVID-19 MAYRA, SOFIANEG #### [address] ANKLE RT WO CONon 022 [...] severe tricompartmental osteoarthropathy of the knee with zfhi-sr-cvtb articulation of the lateral compartment. SOFT TISSUES: Negative. No visible soft tissue swelling. EFFUSION: None visible. OTHER: Negative. IMPRESSION: Progression of subchondral degenerative cystic changes of the tibial plafond and calcaneus Moderate to severe knee osteoarthritis with nqhk-ew-agjg articulation of the lateral compartment Electronically authenticated by: GERA BLUM Date: 2021-11-14 16:32 Normal [facility] CBC AUTO DIFFon 09-11-2021 BASO # 0.1 103/ul Normal 0.0-0.1 [facility] Comment on above: Performed By: #### C BC ####[facility] [address] [place] [address]Dr. Idania Tai Basophils/100 WBC (Bld) 0.8 % Normal 0.2-2.0 [facility] Comment on above: Performed By: #### C BC ####[facility] [address] [place], [place] [address]Dr. Idania Tai EO # 0.2 103/ul Normal 0.0-0.7 [facility] Comment on above: Performed By: #### C BC ####[facility] [address] [place], [place] [address]Dr. Idania Tai Eosinophils/100 WBC (Bld) 2.2 % Normal 0.9-7.0 [facility] Comment on above: Performed By: #### C BC ####[facility] [address] [place], [place] [address]Dr. Idania Tai Erythrocyte distribution width (RBC) [Ratio] 13.1 % Normal 11.0-15.0 [facility] Comment on above: Performed By: #### C BC ####[facility] [address] [place], [place] [address]Dr. Idania Tai Hematocrit (Bld) [Volume fraction] 44.5 % Normal 42.0-54.0 [facility] Comment on above: Performed By: #### C BC ####[facility] [address] [place], [place] [address]Dr. Idania Tai Hemoglobin (Bld) [Mass/Vol] 14.9 g/dL Normal 14.0-18.0 [facility] Comment on above: Performed By: #### C BC ####[facility] [address] [place], [place] [address]Dr. Idania Tai IG # 0.13 10e3/ul Critically high 0.00-0.03 [facility] Comment on above: Performed By: #### C BC ####[facility] [address] [place] [id number]. Idania Tai IG % 1.5 % Critically high 0.0-0.5 [facility] Comment on above: Performed By: #### C BC ####[facility] [address] [place] [id number]. Idania Tai LYMPH # 2.4 103/ul Normal 1.2-3.8 [facility] Comment on above: Performed By: #### C BC ####[facility] [address] [place] [address]Dr. Idania Tai Lymphocytes/100 WBC (Bld) 27.7 % Normal 20.5-60.0 [facility] Comment on above: Performed By: #### C BC ####[facility] [address] [place], [place] [address]Dr. Idania Tai MANUAL DIFF REQ NO Normal [facility] Comment on above: Performed By: #### C BC ####[facility] [address] [place] [id number]. Idania Tai MCH (RBC) [Entitic mass] 28.9 pg Normal 25.9-34.0 [facility] Comment on above: Performed By: #### C BC ####[facility] [address] [place] [address]Dr. Idania Tai MCHC (RBC) [Mass/Vol] 33.5 g/dL Normal 29.9-35.2 [facility] Comment on above: Performed By: #### C BC ####[facility] [address] [place], [place] [address]Dr. Idania Tai MCV (RBC) [Entitic vol] 86.4 fL Normal 80.0-94.0 [facility] Comment on above: Performed By: #### C BC ####[facility] [address] [place], [place] [address]Dr. Idania Tai MONO # 0.6 103/ul Normal 0.3-0.8 [facility] Comment on above: Performed By: #### C BC ####[facility] [address] [place] [id number]. Idania Tai Monocytes/100 WBC (Bld) 6.4 % Normal 1.7-12.0 [facility] Comment on above: Performed By: #### C BC ####[facility] [address] [place] [id number]. Idania Tai NEUT # 5.3 103/ul Normal 1.4-6.5 [facility] Comment on above: Performed By: #### C BC ####[facility] [address] [place] [id number]. Idania Tai Neutrophils/100 WBC (Bld) 61.4 % Normal 43.0-75.0 [facility] Comment on above: Performed By: #### C BC ####[facility] [address] [place] [id number]. Idania Tai Platelet mean volume (Bld) [Entitic vol] 9.7 fL Normal 9.5-13.5 [facility] Comment on above: Performed By: #### C BC ####[facility] [address] [place] [id number]. Idania Tai PLT 219 103/ul Normal 150-450 [facility] Comment on above: Performed By: #### C BC ####[facility] [address] [place] [id number]. Idania Tai RBC 5.15 106/ul Normal 4.70-6.10 [facility] Comment on above: Performed By: #### C BC ####[facility] [address] [place] [id number]. Idania Tai WBC 8.6 103/ul Normal 4.0-11.0 [facility] Comment on above: Performed By: #### C BC ####[facility] [address] [place] [id number]. Idania Tai GLYCOHEMOGLOBIN A1Con 2021 ADA RECOMMENDATION ADA THERAPEUTIC TARGET 6.0 - 7.0 ACTION SUGGESTED > 7.0 Normal [facility] Comment on above: Performed By: #### A 1C ####[facility] [address] [place] [id number]. Idania Tai Glucose [Mass/Vol] 128 mg/dL Normal [facility] Comment on above: Performed By: #### A 1C ####[facility] [address] [place], [place] [address]Dr. Idania Tai HbA1c (Bld) [Mass fraction] 6.1 % Critically high <=6.0 [facility] Comment on above: Performed By: #### A 1C ####[facility] [address] [place] [id number]. Idania Tai LIPID PROFILEon 09-11-2021 CHOL-HDL RATIO NORM SEE BELOW Normal [facility] Comment on above: Result Comment: 3.3 - 4.4 LOW RISK 4.4 - 7.1 AVERAGE RISK 7.1 - 11.0 MODERATE RISK >11.0 HIGH RISK Performed By: #### L IPID, CMP #### [facility] [address] [place] [address] [address] Idania Tai Cholesterol [Mass/Vol] 175 mg/dL Normal <=200 [facility] Comment on above: Performed By: #### L IPID, CMP #### [facility] [address] [address] [address] Idania Tai Cholesterol in HDL [Mass/Vol] 54 mg/dL Normal 40-60 [facility] Comment on above: Performed By: #### L IPID, CMP #### [facility] [address] [address] [address] Idania Tai Cholesterol in LDL [Mass/Vol] 87.2 mg/dL Normal [facility] Comment on above: Performed By: #### L IPID, CMP #### [facility] [address] [address] [address] Idania Tai Cholesterol.total/Choles terol in HDL [Mass ratio] 3.2 {ratio} Normal [facility] Comment on above: Performed By: #### L IPID, CMP #### [facility] [address] [address] [address] Idania Tai HDL NORMAL > or = 60 mg/dl - LOW CARDIOVASCULAR RISK <40 mg/dl - HIGH CARDIOVASCULAR RISK Normal [facility] Comment on above: Performed By: #### L IPID, CMP #### [facility] [address] [address] [address] Idania Tai LDL CALC NORMAL SEE BELOW Normal [facility] Comment on above: Result Comment: <100 mg/dl OPTIMAL 100 - 129 mg/dl NEAR OR ABOVE OPTIMAL 130 - 159 mg/dl BORDERLINE HIGH 160 - 189 mg/dl HIGH >190 mg/dl VERY HIGH Performed By: #### L IPID, CMP #### [facility] [address] [address] [address] Idania Tai Triglyceride [Mass/Vol] 169 mg/dL Critically high <=150 [facility] Comment on above: Performed By: #### L IPID, CMP #### [facility] [address] [address] [address] Idania Tai VLDL CALC 33.8 mg/dL Normal [facility] Comment on above: Performed By: #### L IPID, CMP #### [facility] [address] [address] [address] Idania Tai MICROALBUMIN, RAND URon - mALB 1.9 mg/L Normal <=30.0 [facility] Comment on above: Performed By: #### M ALBR #### [facility] [address] [address] [address] Idania Tai PROF 14(COMP METB)on 022 Albumin [Mass/Vol] 3.7 g/dL Normal 3.4-5.0 [facility] Comment on above: Performed By: #### L IPID, CMP #### [facility] [address] [address] [address] Idania Tai Albumin/Globulin [Mass ratio] 0.9 {ratio} Normal [facility] Comment on above: Performed By: #### L IPID, CMP #### [facility] [address] [address] [address] Idania Tai ALP [Catalytic activity/Vol] 73 U/L Normal 46-116 [facility] Comment on above: Performed By: #### L IPID, CMP #### [facility] [address] [address] [address] Idania Tai ALT [Catalytic activity/Vol] 68 U/L Critically high 16-63 [facility] Comment on above: Performed By: #### L IPID, CMP #### [facility] [address] [address] [address] Idania Tai Anion gap [Moles/Vol] 10.2 mmol/L Normal [facility] Comment on above: Performed By: #### L IPID, CMP #### [facility] [address] [place] [address] Dr. Idania Tai AST [Catalytic activity/Vol] 30 U/L Normal 15-37 [facility] Comment on above: Performed By: #### L IPID, CMP #### [facility] [address] [address] [address] Idania Tai Bilirubin [Mass/Vol] 1.0 mg/dL Normal 0.2-1.3 [facility] Comment on above: Performed By: #### L IPID, CMP #### [facility] [address] [place] [address] Dr. Idania Tai Calcium [Mass/Vol] 8.5 mg/dL Normal 8.5-10.1 [facility] Comment on above: Performed By: #### L IPID, CMP #### [facility] [address] [place] [address] Dr. Idania Tai Chloride [Moles/Vol] 101 mmol/L Normal 98-107 [facility] Comment on above: Performed By: #### L IPID, CMP #### [facility] [address] [place] [address] Dr. Idania Tai CO2 [Moles/Vol] 31.6 mmol/L Critically high 22.0-30.0 [facility] Comment on above: Performed By: #### L IPID, CMP #### [facility] [address] [place] [address] Dr. Idania Tai Creatinine [Mass/Vol] 0.67 mg/dL Normal 0.66-1.25 [facility] Comment on above: Performed By: #### L IPID, CMP #### [facility] [address] [place] [address] Dr. Idania Tai EGFR-AF NEW ZEALANDER >60 Normal >=60 [facility] Comment on above: Performed By: #### L IPID, CMP #### [facility] [address] [address] [address] Idania Tai EGFR-NON AF NEW ZEALANDER >60 Normal >=60 [facility] Comment on above: Performed By: #### L IPID, CMP #### [facility] [address] [place] [address] Dr. Idania Tai Globulin (S) [Mass/Vol] 4.0 g/dL Normal [facility] Comment on above: Performed By: #### L IPID, CMP #### [facility] [address] [place] [address] Dr. Idania Tai Glucose [Mass/Vol] 114 mg/dL Critically high 74-106 [facility] Comment on above: Performed By: #### L IPID, CMP #### [facility] [address] [place] [address] Dr. Idania Tai Potassium [Moles/Vol] 4.8 mmol/L Normal 3.4-5.0 [facility] Comment on above: Performed By: #### L IPID, CMP #### [facility] [address] [place] [address] Dr. Idania Tai Protein [Mass/Vol] 7.7 g/dL Normal 6.1-8.2 [facility] Comment on above: Performed By: #### L IPID, CMP #### [facility] [address] [place] [address] Dr. Idania Tai Sodium [Moles/Vol] 138 mmol/L Normal 137-145 [facility] Comment on above: Performed By: #### L IPID, CMP #### [facility] [address] [place] [address] Dr. Idania Tai Urea nitrogen [Mass/Vol] 12.0 mg/dL Normal 7.0-18.0 [facility] Comment on above: Performed By: #### L IPID, CMP #### [facility] [address] [address] [address] Idania Tai Urea nitrogen/Creatinine [Mass ratio] 17.9 mg/mg Normal [facility] Comment on above: Performed By: #### L IPID, CMP #### [facility] [address] [address] [address] Idania Tai Vital Signs Date Time Vital Sign Value Performing Clinician Faci lity 09-10-2022 13:15-0400 Diastolic blood pressure 64 mm[Hg] MD Shaikh Baker Work Phone: [facility] 09-10-2022 13:15-0400 Heart rate 54 /min MD Shaikh Baker Work Phone: [facility] 09-10-2022 13:15-0400 Respiratory rate 16 /min MD Shaikh Baker Work Phone: [facility] 09-10-2022 13:15-0400 SaO2% (BldA) [Mass fraction] 97 % MD Shaikh Baker Work Phone: [facility] 09-10-2022 13:15-0400 Systolic blood pressure 100 mm[Hg] MD Shaikh Baker Work Phone: [facility] 09-10-2022 12:25-0400 Body temperature 97.5 [degF] MD Shaikh Baker Work Phone: [facility] 09-10-2022 11:55-0400 Inhaled oxygen flow rate 8 L/min MD Shaikh Baker Work Phone: [facility] 09-10-2022 10:54-0400 Body height 165.1 cm MD Shaikh Baker Work Phone: [facility] 09-10-2022 10:54-0400 Body mass index (BMI) [Ratio] 38.6 kg/m2 MD Shaikh Baker Work Phone: [facility] 09-10-2022 10:54-0400 Body weight 105.4 kg MD Shaikh Baker Work Phone: [facility] 12-22-2021 10:00-0400 Diastolic blood pressure 87 mm[Hg] MD Sav Andrews Work Phone: [facility] 12-22-2021 10:00-0400 Heart rate 54 /min MD Sav Andrews Work Phone: [facility] 12-22-2021 10:00-0400 Respiratory rate 18 /min MD Sav Andrews Work Phone: [facility] 12-22-2021 10:00-0400 SaO2% (BldA) [Mass fraction] 100 % MD Sav Andrews Work Phone: [facility] 12-22-2021 10:00-0400 Systolic blood pressure 139 mm[Hg] MD Sav Andrews Work Phone: [facility] 12-22-2021 07:37-0400 Body height 170.18 cm MD aSv Andrews Work Phone: [facility] 12-22-2021 07:37-0400 Body temperature 97.9 [degF] MD Sav Andrews Work Phone: [facility] 12-22-2021 07:37-0400 Body weight 81.64 kg MD Sav Andrews Work Phone: [facility] Encounters Encounter Date Encounter Type Care Provider Facility Start: 10-24-2023 End: 10-24-2023 ambulatory ANGELO FAWWAD Not Available Start: 09-16-2023 End: 09-16-2023 ambulatory ANGELO FAWWAD Not Available Start: 08-07-2023 End: 08-07-2023 ambulatory ANGELO SAMUEL Not Available Start: 09-10-2022 End: 09-10-2022 ambulatory Silver Alcantaraurora Facility:[facility] Start: 09-10-2022 End: 09-10-2022 Admission to same day surgery center MD Shaikh Baker Work Phone: [facility] [place] Start: 09-10-2022 End: 09-10-2022 ambulatory MD Shaikh Baker Work Phone: [facility] Work Phone: Start: 08-30-2022 End: 08-30-2022 ambulatory Silver Alcantaraurora Facility:[facility] Start: 08-30-2022 End: 08-30-2022 ambulatory MD Shaikh Baker Work Phone: [facility] Work Phone: Start: 08-30-2022 End: 08-30-2022 Patient encounter procedure MD Shaikh Baker Work Phone: [facility] Work Phone: Start: 07-07-2022 End: 07-08-2022 ambulatory ANGELO Adan SAMUEL Facility:[facility] Start: 03-13-2022 End: 03-14-2022 ambulatory ANGELO Adan SAMUEL Facility:[facility] Start: 12-22-2021 End: 12-22-2021 ambulatory Sav Andrews Facility:[facility] Start: 12-22-2021 End: 12-22-2021 Admission to same day surgery center MD Sav Andrews Work Phone: [facility] Start: 12-20-2021 End: 12-20-2021 ambulatory Sav Andrews Facility:[facility] Start: 12-20-2021 End: 12-20-2021 Patient encounter procedure MD Sav Andrews Work Phone: [facility] Start: 11-14-2021 End: 11-15-2021 ambulatory REY [...] Activity Detail Author Start: 09-10-2022 End: 09-10-2022 [facility] Start: 12-22-2021 [facility] Work Phone: Patient Education Hemorrhoids [facility] Work Phone: Immunizations Immunization Date Immunization Notes Care Provider Fa cili 10-10-2020 COVID-19 mRNA Comirmichelle (Pfizer) MD Sav Andrews Work Phone: [facility] 09-19-2020 COVID-19 mRNA Comirnatjoey (Pfizer) MD Sav Andrews Work Phone: [facility] Payers Date Payer Category Payer Self-pay [id number] 1965 Unknown [id number] 2.16.84 [id number] 1965 Unknown [id number] 2.16.84 [id number] 1966 Unknown [id number] 2.16.84 [id number] 1966 Unknown [id number] 2.16.84 0.1.554393.3.579.2.593 1966 Unknown [id number] 2.16.84 0.1.549006.3.579.2.593 1966 Unknown [id number] 2.16.84 0.1.107998.3.579.2.593 1966 Unknown [id number] 2.16.84 0.1.310497.3.579.2.593 1966 Unknown [id number] 2.16.84 0.1.759981.3.579.2.1259 1966 Unknown [id number] 2.16.84 0.1.328420.3.579.2.1259 1966 Unknown [id number] 2.16.84 0.1.208734.3.579.2.1259 1959 Unknown [id number] Unknown [id number] 2.16.8 [id number] Unknown [id number] 2.16.8 40.1.198437.3.579.2.531 Unknown [id number] 2.16.8 [id number] Unknown [id number] 2.16.8 [id number] Social History Date Type Detail Facility Start: 12-22-2021 End: 09-10-2022 Tobacco smoking status NHIS Ex-smoker (finding) [facility] Start: 1965 Sex Assigned At Male F [facility] Goals Date Patient Goal Desired Activity /State Procedure note 12-22-2021 Note Date & Type Note Facility 12-22-2021 Procedure note [facility] Clinical Note 10-26-2021 Note Date & Type [...] authenticated by: MICHELLE IBRAHIM Date: 2021-10-26 08:54 [facility] Clinical Note 09-05-2021 Note Date & [...] by: GERA BLUM Date: 2021-09-05 15:22 [facility] Evaluation note Note Date & Type Note Facility Evaluation note No assessment information availa [facility] Work Phone: History and physical note Note Date & Type Note Facility History and physical note Note Date/Time December 22, 2021 9:32 am [facility] [address] [place] [address] Gastroenterology H&P Signed Patient: Lavern Escobedo MR #: [id number] : 1965 Acct:[id number] Age/Sex: 56 / M Adm Date: 2 Loc: Room: Type: [facility] Attending Dr: Sav Andrews MD Copies [...] <Electronically signed by Sav Andrews MD> 12/22/21931 [facility] Work Phone: Chief Complaint and Reason for [...] AUTHOR AUTHOR'S ORGANIZ ATION 10/02/2022 [facility] DATE CREATED AUTHOR AUTHOR'S ORGANIZ ATION 10/25/2023 [facility] EPIC Goals (unrecognized section [...] BE BASED ON THE PRIMARY CLINICAL RECORDS. [employer] provides no warranty or guarantee of the accuracy or completeness of information in this document.
== END 2024-01-16 14:55 | disposition home or self-care (01) ==
LOC: EC 14:54
PROVIDERS: PCP Internal Medicine; Visit Provider Physician Assistant
DX: M19.071 Primary osteoarthritis, right ankle and foot (principal); M24.671 Ankylosis, right ankle
CPT/HCPCS: 73610

== ENCOUNTER 2024-01-25 08:33 | Outpatient (OUT) | payer BC, SELFPAY ==
--- OUTSIDE RECORDS SUMMARY | 2024-01-25 08:37 | XMS_ITS | CCD ---
Author Organization [facility] Care Team Providers Care Stain Remover Name Role Phone MD Sav Andrews Attending Provider [phone] MD Deana Baker Primary Care Provider DR [...] Briceño Attending Provider Sav Andrews Attending Unavailable aSv Andrews Admitting Unavailable Shaikh Baker Primary Care [...] Drug Class(es) Dates Sig (Normalized) Sig (Original) [id number] 200 actuat albuterol 0.09 mg/actuat metered dose [...] MG PO Daily December 22, 2021 12:00am [place] 2-Fcb-Xgf-Fish Oil (Fish Oil) 1,200 (144-216) mg Capsule (4 sources) Start: 12-22-2021 take 1 capsule by mouth twice daily [place] 2-Slr-Nmi-Fish Oil (Fish Oil) 1,200 (144-216) mg Capsule [...] Glucose [Mass/Vol] 137 mg/dL [facility] Comment on above: Random Glucose Refer ence Range is dependent on time and content of last meal. Glucose of more than 200 mg/dL in a nonstressed, ambulatory subject supports the diagnosis of Diabetes Mellitus. Glucose [Mass/Vol] 131 mg/dL [facility] Comment on above: Random Glucose Refer ence Range is dependent on time and content of last meal. Glucose of more than 200 mg/dL in a nonstressed, ambulatory subject supports the diagnosis of Diabetes Mellitus. Glucose Poct Glucometerson 0 09-10-2022 Glucose [Mass/Vol] 137 mg/dL Normal [facility] Comment on above: Result Comment: [facility] Glucose Reference Range is dependent on time and content of last meal. Glucose of more than 200 mg/dL in a nonstressed, ambulatory subject supports the diagnosis of Diabetes Mellitus. PERFORMED BY: [facility] [address] [id number] PATHOLOGIST ENVIRONMENTAL HEALTH TECHNICIAN TEOFILO KHAN M.D. Performed By: #### G LULS #### Point of Care testing , Glucose [Mass/Vol] 131 mg/dL Normal [facility] Comment on above: Result Comment: [facility] Glucose Reference Range is dependent on time and content of last meal. Glucose of more than 200 mg/dL in a nonstressed, ambulatory subject supports the diagnosis of Diabetes Mellitus. PERFORMED BY: [facility] [address] [facility] [place] [address] PATHOLOGIST ENVIRONMENTAL HEALTH TECHNICIAN TEOFILO KHAN M.D. Performed By: #### G LULS #### Point of Care testing , Basic Metabolic Panelon 04-0 Anion gap [Moles/Vol] 13.5 mmol/L Normal 6.0-15.0 [facility] Comment on above: Performed By: #### C BC, BMP #### [facility] [address] Calcium [Mass/Vol] 9.4 mg/dL Normal 8.6-10.3 [facility] Comment on above: Result Comment: PERF ORMED BY: [place] [address] PATHOLOGIST ENVIRONMENTAL HEALTH TECHNICIAN TEOFILO KHAN M.D. Performed By: #### C BC, BMP #### [address] Chloride [Moles/Vol] 102 mmol/L Normal 98-107 [facility] Comment on above: Performed By: #### C BC, BMP #### [address] CO2 [Moles/Vol] 28.5 mmol/L Normal 21.0-31.0 [facility] Comment on above: Performed By: #### C BC, BMP #### [address] Creatinine [Mass/Vol] 0.99 mg/dL Normal 0.70-1.30 [facility] Comment on above: Performed By: #### C BC, BMP #### [place] [address] [place] GFR/1.73 sq M.predicted MDRD (S/P/Bld) [Vol rate/Area] mL/min/{1.73_m2} Normal [facility] Comment on above: Performed By: #### C BC, BMP #### [address] Glucose [Mass/Vol] 114 mg/dL High 70-100 [facility] Comment on above: Result Comment: [facility] Glucose Reference Range is dependent on time and content of last meal. Glucose of more than 200 mg/dL in a nonstressed, ambulatory subject supports the diagnosis of Diabetes Mellitus. ADA recommended reference range Performed By: #### C BC, BMP #### [place] [address] [place] Potassium [Moles/Vol] 4.0 mmol/L Normal 3.5-5.1 [facility] Comment on above: Performed By: #### C BC, BMP #### [facility] [address] Sodium [Moles/Vol] 140 mmol/L Normal 136-145 [facility] Comment on above: Performed By: #### C BC, BMP #### [facility] [address] Urea nitrogen [Mass/Vol] 21 mg/dL Normal 7-25 [facility] Comment on above: Performed By: #### C BC, BMP #### [facility] [address] Basophils Auto (Bld) [#/Vol] Ordered By: Silver Briceño on 08-30-2022 Basophils (Bld) [#/Vol] 0.0 10*3/uL 0.0-0.2 [facility] Basophils/100 WBC Auto (Bld) Ordered By: Silver Briceño on 08-30-2022 Basophils/100 WBC (Bld) 0.7 % . [facility] Calcium [Mass/volume] in Ser um or PlasmaOrdered By: Silver Briceño on 08-30-2022 Calcium [Mass/Vol] 9.4 mg/dL 8.6-10.3 [facility] Carbon dioxide, total [Moles /volume] in Serum or PlasmaOrdered By: Silver Briceño on 08-30-2022 CO2 [Moles/Vol] 28.5 mmol/L 21.0-31.0 [facility] Chloride [Moles/volume] in S gela or PlasmaOrdered By: Silver Briceño on 08-30-2022 Chloride [Moles/Vol] 102 mmol/L 98-107 [facility] Complete Blood Count Auto Di ffon 08-30-2022 Basophils (Bld) [#/Vol] 0.0 10*3/uL Normal 0.0-0.2 [facility] Comment on above: Result Comment: PERF ORMED BY: [facility] [address] [facility] [place] [address] PATHOLOGIST ENVIRONMENTAL HEALTH TECHNICIAN TEOFILO KHAN M.D. Performed By: #### C BC, BMP #### [facility] [address] [place] [id number] [place] Basophils/100 WBC (Bld) 0.7 % Normal . [facility] Comment on above: Performed By: #### C BC, BMP #### [facility] [address] [id number] [place] Eosinophils (Bld) [#/Vol] 0.3 10*3/uL Normal 0.0-0.45 [facility] Comment on above: Performed By: #### C BC, BMP #### [facility] [address] [place] [address] [place] Eosinophils/100 WBC (Bld) 6.1 % Normal . [facility] Comment on above: Performed By: #### C BC, BMP #### [facility] [address] Erythrocyte distribution width (RBC) [Ratio] 14.5 % Normal 12.0-14.8 [facility] Comment on above: Performed By: #### C BC, BMP #### [facility] [address] [place] [id number] [place] Hematocrit (Bld) [Volume fraction] 36.5 % Low 38.8-50.0 [facility] Comment on above: Performed By: #### C BC, BMP #### [facility] [address] [place] [id number] [place] Hemoglobin (Bld) [Mass/Vol] 12.5 g/dL Low 13.0-17.0 [facility] Comment on above: Performed By: #### C BC, BMP #### [facility] [address] [place] [id number] [place] Lymphocytes (Bld) [#/Vol] 1.8 10*3/uL Normal 1.00-4.8 [facility] Comment on above: Performed By: #### C BC, BMP #### [facility] [address] [place] [id number] [place] Lymphocytes/100 WBC (Bld) 35.5 % Normal . [facility] Comment on above: Performed By: #### C BC, BMP #### [facility] [address] MCH (RBC) [Entitic mass] 29.2 pg Normal 27.5-35.2 [facility] Comment on above: Performed By: #### C BC, BMP #### [facility] [address] MCV (RBC) [Entitic vol] 85.1 fL Normal 83.5-101 [facility] Comment on above: Performed By: #### C BC, BMP #### [facility] [address] Mean Corpuscular HGB Conc 34.3 g/dL Normal 32.5-35.6 [facility] Comment on above: Performed By: #### C BC, BMP #### [facility] [address] [place] [address] [place] Monocytes (Bld) [#/Vol] 0.4 10*3/uL Normal 0.0-0.8 [facility] Comment on above: Performed By: #### C BC, BMP #### [facility] [address] [place] [address] [place] Monocytes/100 WBC (Bld) 8.2 % Normal . [facility] Comment on above: Performed By: #### C BC, BMP #### [facility] [address] [place] [address] [place] Neutrophils (Bld) [#/Vol] 2.5 10*3/uL Normal 1.8-7.7 [facility] Comment on above: Performed By: #### C BC, BMP #### [facility] [address] [place] [address] [place] Neutrophils/100 WBC (Bld) 49.5 % Normal . [facility] Comment on above: Performed By: #### C BC, BMP #### [facility] [address] [place] [address] [place] NRBC% 0.2 /100{WBC} Normal 0-0.5 [facility] Comment on above: Performed By: #### C BC, BMP #### [facility] [address] [place] [id number] [facility] Platelet mean volume (Bld) [Entitic vol] 8.8 fL Normal 6.6-10.1 [facility] Comment on above: Performed By: #### C BC, BMP #### [facility] [address] [place] [id number] [place] Platelets (Bld) [#/Vol] 155 10*3/uL Normal 150-450 [facility] Comment on above: Performed By: #### C SAI, BMP #### [facility] [address] RBC (Bld) [#/Vol] 4.29 10*6/uL Normal 3.90-5.60 [facility] Comment on above: Performed By: #### C SAI, BMP #### [facility] [address] [place] [address] [facility] WBC (Bld) [#/Vol] 5.1 10*3/uL Normal 4.1-10.5 [facility] Comment on above: Performed By: #### C SAI, BMP #### [facility] [address] Creatinine [Mass/volume] in Serum or PlasmaOrdered By: Silver Briceño on 08-30-2022 Creatinine [Mass/Vol] 0.99 mg/dL 0.70-1.30 [facility] ECG 12 lead ECGon 08-30-2022 ECG 12 lead ECG [facility] [place] [address] [place] [address] Electrocardiograph Report Signed Patient: Lavern Escobedo MR#: [id number] : 1965 Acct:[id number] Age/Sex: 57 / M ADM Date: 08/30/22 Loc: PS [facility]: [facility]: Silver Briceño DO Ordering [...] previous ECGs available Confirmed by [facility] ([id number] on 08/31/2022 12:23:25 PM Referred By: FREDDY Electronically Signed By:LEANNA LOVE MD [facility] Transcribed By: MUS Signed By Leo Love MD 08/31/22 1223 Normal [facility] Eosinophils Auto (Bld) [#/Vo l]Ordered By: Silver Briceño on 08-30-2022 Eosinophils (Bld) [#/Vol] 0.3 10*3/uL 0.0-0.45 [facility] Eosinophils/100 WBC Auto (Bl d)Ordered By: Silver Briceño on 08-30-2022 Eosinophils/100 WBC (Bld) 6.1 % . [facility] Erythrocyte distribution wid th Auto (RBC) [Ratio]Ordered By: Silver Briceño on 08-30-2022 Erythrocyte distribution width (RBC) [Ratio] 14.5 % 12.0-14.8 [facility] Glucose [Mass/volume] in Ser um or PlasmaOrdered By: Silver Briceño on 08-30-2022 Glucose [Mass/Vol] 114 mg/dL 70-100 [facility] Comment on above: ADA recommended refe rence rangeRandom Glucose Reference Range is dependent on time and content of last meal. Glucose of more than 200 mg/dL in a nonstressed, ambulatory subject supports the diagnosis of Diabetes Mellitus. Hematocrit Auto (Bld) [Volum e fraction]Ordered By: Silver Briceño on 08-30-2022 Hematocrit (Bld) [Volume fraction] 36.5 % 38.8-50.0 [facility] Hemoglobin [Mass/volume] in BloodOrdered By: Silver Briceño on 08-30-2022 Hemoglobin (Bld) [Mass/Vol] 12.5 g/dL 13.0-17.0 [facility] Leukocytes [#/volume] correc shashi for nucleated erythrocytes in Blood by Automated counOrdered By: Silver Briceño on 08-30-2022 WBC corrected for nucl RBC Auto (Bld) [#/Vol] 5.1 10*3/uL 4.1-10.5 [facility] Lymphocytes Auto (Bld) [#/Vo l]Ordered By: Silver Briceño on 08-30-2022 Lymphocytes (Bld) [#/Vol] 1.8 10*3/uL 1.00-4.8 [facility] Lymphocytes/100 WBC Auto (Bl d)Ordered By: Silver Briceño on 08-30-2022 Lymphocytes/100 WBC (Bld) 35.5 % . [facility] MCH Auto (RBC) [Entitic mass ]Ordered By: Silver Briceño on 08-30-2022 MCH (RBC) [Entitic mass] 29.2 pg 27.5-35.2 [facility] MCHC Auto (RBC) [Mass/Vol]Or dered By: Silver Briceño on 08-30-2022 MCHC (RBC) [Mass/Vol] 34.3 g/dL 32.5-35.6 [facility] MCV Auto (RBC) [Entitic vol] Ordered By: Silver Briceño on 08-30-2022 MCV (RBC) [Entitic vol] 85.1 fL 83.5-101 [facility] Monocytes Auto (Bld) [#/Vol] Ordered By: Silver Briceño on 08-30-2022 Monocytes (Bld) [#/Vol] 0.4 10*3/uL 0.0-0.8 [facility] Monocytes/100 WBC Auto (Bld) Ordered By: Silver Briceño on 08-30-2022 Monocytes/100 WBC (Bld) 8.2 % . [facility] Neutrophils Auto (Bld) [#/Vo l]Ordered By: Silver Briceño on 08-30-2022 Neutrophils (Bld) [#/Vol] 2.5 10*3/uL 1.8-7.7 [facility] Neutrophils/100 WBC Auto (Bl d)Ordered By: Silver Briceño on 08-30-2022 Neutrophils/100 WBC (Bld) 49.5 % . [facility] No Panel InformationOrdered By: Silver Briceño on 08-30-2022 Estimated GFR (CKD-EPI) > 60.0 mL/Min [facility] Creatinine Clearance (Chem N/A [facility] Nucleated erythrocytes [Pres ence] in Blood by Automated countOrdered By: Silver Briceño on 08-30-2022 Nucleated RBC Auto Ql (Bld) 0.2 /100{WBC} 0-0.5 [facility] Platelet mean volume Auto (B ld) [Entitic vol]Ordered By: Silver Briceño on 08-30-2022 Platelet mean volume (Bld) [Entitic vol] 8.8 fL 6.6-10.1 [facility] Platelets Auto (Bld) [#/Vol] Ordered By: Silver Briceño on 08-30-2022 Platelets (Bld) [#/Vol] 155 10*3/uL 150-450 [facility] Potassium [Moles/volume] in Serum or PlasmaOrdered By: Silver Briceño on 08-30-2022 Potassium [Moles/Vol] 4.0 mmol/L 3.5-5.1 [facility] RBC Auto (Bld) [#/Vol]Ordere d By: Silver Briceño on 08-30-2022 RBC (Bld) [#/Vol] 4.29 10*6/uL 3.90-5.60 [facility] Serum or plasma anion gap de terminationOrdered By: Silver Briceño on 08-30-2022 Anion gap [Moles/Vol] 13.5 mmol/L 6.0-15.0 [facility] Sodium [Moles/volume] in Ser um or PlasmaOrdered By: Silver Briceño on 08-30-2022 Sodium [Moles/Vol] 140 mmol/L 136-145 [facility] Urea nitrogen [Mass/volume] in Serum or PlasmaOrdered By: Silver Briceño on 08-30-2022 Urea nitrogen [Mass/Vol] 21 mg/dL 7-25 [facility] WBC Auto (Bld) [#/Vol]Ordere d By: Silver Briceño on 08-30-2022 WBC (Bld) [#/Vol] 5.1 10*3/uL 4.1-10.5 [facility] GLYCOHEMOGLOBIN A1Con 2022 ADA RECOMMENDATION SEE BELOW Normal [facility] Comment on above: Result Comment: ADA RECOMMENDED LIMIT 4.0 - 6.0 ADA THERAPEUTIC TARGET < 7.0 ACTION SUGGESTED > 7.0 Performed By: #### A 1C #### [facility] [address] [address] [address] Idania Tai Glucose [Mass/Vol] 243 mg/dL Normal [facility] Comment on above: Performed By: #### A 1C #### [facility] [address] [address] [address] Idania Tai HbA1c (Bld) [Mass fraction] 10.1 % Critically high 4.5-6.2 [facility] Comment on above: Performed By: #### A 1C #### [facility] [address] [place] [address] Dr. Idania Tai LIPID PROFILEon 07-07-2022 CHOL-HDL RATIO NORM SEE BELOW Normal [facility] Comment on above: Result Comment: 3.3 - 4.4 LOW RISK 4.4 - 7.1 AVERAGE RISK 7.1 - 11.0 MODERATE RISK >11.0 HIGH RISK Performed By: #### B MP, LIPID #### [facility] [address] [place] [address] Dr. Idania Tai Cholesterol [Mass/Vol] 172 mg/dL Normal <=200 [facility] Comment on above: Performed By: #### B MP, LIPID #### [facility] [address] [place] [address] Dr. Idania Tai Cholesterol in HDL [Mass/Vol] 48 mg/dL Normal 40-60 [facility] Comment on above: Performed By: #### B MP, LIPID #### [facility] [address] [address] [address] Idania Tai Cholesterol in LDL [Mass/Vol] 95.6 mg/dL Normal [facility] Comment on above: Performed By: #### B MP, LIPID #### [facility] [address] [address] [address] Idania Tai Cholesterol.total/Choles terol in HDL [Mass ratio] 3.6 {ratio} Normal [facility] Comment on above: Performed By: #### B MP, LIPID #### [facility] [address] [place] [address] Dr. Idania Tai HDL NORMAL > or = 60 mg/dl - LOW CARDIOVASCULAR RISK <40 mg/dl - HIGH CARDIOVASCULAR RISK Normal [facility] Comment on above: Performed By: #### B MP, LIPID #### [facility] [address] [place] [address] Dr. Idania Tai LDL CALC NORMAL SEE BELOW Normal [facility] Comment on above: Result Comment: <100 mg/dl OPTIMAL 100 - 129 mg/dl NEAR OR ABOVE OPTIMAL 130 - 159 mg/dl BORDERLINE HIGH 160 - 189 mg/dl HIGH >190 mg/dl VERY HIGH Performed By: #### B MP, LIPID #### [facility] [address] [place] [address] Dr. Iadnia Tai Triglyceride [Mass/Vol] 142 mg/dL Normal <=150 [facility] Comment on above: Performed By: #### B MP, LIPID #### [facility] [address] [place] [address] Dr. Idania Tai VLDL CALC 28.4 mg/dL Normal [facility] Comment on above: Performed By: #### B MP, LIPID #### [facility] [address] [place] [address] Dr. Idania Tai PROF CHEM 8 (BAS METB)on Anion gap [Moles/Vol] 11.0 mmol/L Normal [facility] Comment on above: Performed By: #### B MP, LIPID #### [facility] [address] [place] [address] Dr. Idania Tai Calcium [Mass/Vol] 9.1 mg/dL Normal 8.5-10.1 [facility] Comment on above: Performed By: #### B MP, LIPID #### [facility] [address] [place] [address] Dr. Idania Tai Chloride [Moles/Vol] 100 mmol/L Normal 98-107 [facility] Comment on above: Performed By: #### B MP, LIPID #### [facility] [address] [address] [address] Idania Tai CO2 [Moles/Vol] 32.6 mmol/L Critically high 21.0-32.0 [facility] Comment on above: Performed By: #### B MP, LIPID #### [facility] [address] [address] [address] Idania Tai Creatinine [Mass/Vol] 0.81 mg/dL Normal 0.70-1.30 [facility] Comment on above: Performed By: #### B MP, LIPID #### [facility] [address] [address] [address] Idania Tai EGFR-AF BAHAMIAN >60 Normal >=60 [facility] Comment on above: Performed By: #### B MP, LIPID #### [facility] [address] [place] [address] Dr. Idania Tai EGFR-NON AF BAHAMIAN >60 Normal >=60 [facility] Comment on above: Performed By: #### B MP, LIPID #### [facility] [address] [address] [address] Idania Tai Glucose [Mass/Vol] 157 mg/dL Critically high 74-106 [facility] Comment on above: Performed By: #### B MP, LIPID #### [facility] [address] [place] [address] Dr. Idania Tai Potassium [Moles/Vol] 3.6 mmol/L Normal 3.5-5.1 [facility] Comment on above: Performed By: #### B MP, LIPID #### [facility] [address] [address] [address] Idania Tai Sodium [Moles/Vol] 140 mmol/L Normal 136-145 [facility] Comment on above: Performed By: #### B MP, LIPID #### [facility] [address] [address] [address] Idania Tai Urea nitrogen [Mass/Vol] 16.0 mg/dL Normal 7.0-18.0 [facility] Comment on above: Performed By: #### B MP, LIPID #### [facility] [address] [address] [address] Idania Tai Urea nitrogen/Creatinine [Mass ratio] 19.8 mg/mg Normal [facility] Comment on above: Performed By: #### B MP, LIPID #### [facility] [address] [address] [address] Idania Tai PROF CHEM 8 (BAS METB)on Anion gap [Moles/Vol] 16.1 mmol/L Normal [facility] Comment on above: Performed By: #### B MP #### [facility] [address] [address] [address] Idania Tai Calcium [Mass/Vol] 9.4 mg/dL Normal 8.5-10.1 [facility] Comment on above: Performed By: #### B MP #### [facility] [address] [address] [address] Idania Tai Chloride [Moles/Vol] 98 mmol/L Normal 98-107 [facility] Comment on above: Performed By: #### B MP #### [facility] [address] [address] [address] Idania Tai CO2 [Moles/Vol] 26.0 mmol/L Normal 21.0-32.0 [facility] Comment on above: Performed By: #### B MP #### [facility] [address] [address] [address] Idania Tai Creatinine [Mass/Vol] 0.78 mg/dL Normal 0.70-1.30 [facility] Comment on above: Performed By: #### B MP #### [facility] [address] [address] [address] Idania Tai EGFR-AF BAHAMIAN >60 Normal >=60 [facility] Comment on above: Performed By: #### B MP #### [facility] [address] [address] [address] Idania Tai EGFR-NON AF BAHAMIAN >60 Normal >=60 [facility] Comment on above: Performed By: #### B MP #### [facility] [address] [address] [address] Idania Tai Glucose [Mass/Vol] 131 mg/dL Critically high 74-106 [facility] Comment on above: Performed By: #### B MP #### [facility] [address] [address] [address] Idania Tai Potassium [Moles/Vol] 4.1 mmol/L Normal 3.5-5.1 [facility] Comment on above: Performed By: #### B MP #### [facility] [address] [address] [address] Idania Tai Sodium [Moles/Vol] 136 mmol/L Normal 136-145 [facility] Comment on above: Performed By: #### B MP #### [facility] [address] [address] [address] Idania Tai Urea nitrogen [Mass/Vol] 19.0 mg/dL Critically high 7.0-18 .0 [facility] Comment on above: Performed By: #### B MP #### [facility] [address] [address] [address] Idania Tai Urea nitrogen/Creatinine [Mass ratio] 24.4 mg/mg Normal [facility] Comment on above: Performed By: #### B MP #### [facility] [address] [address] [address] Idania Tai Glucose Glucometer (dC) [M ass/Vol]Ordered By: Sav Andrews on 12-22-2021 Glucose [Mass/Vol] 113 mg/dL [facility] Comment on above: Random Glucose Refer ence Range is dependent on time and content of last meal. Glucose of more than 200 mg/dL in a nonstressed, ambulatory subject supports the diagnosis of Diabetes Mellitus. Glucose Poct Glucometerson 0 12-22-2021 Glucose [Mass/Vol] 113 mg/dL Normal [facility] Comment on above: Result Comment: [place] om Glucose Reference Range is dependent on time and content of last meal. Glucose of more than 200 mg/dL in a nonstressed, ambulatory subject supports the diagnosis of Diabetes Mellitus. PERFORMED BY: [facility] [address] PATHOLOGIST ENVIRONMENTAL HEALTH TECHNICIAN TEOFILO KHAN M.D. Performed By: #### G [...] developed and its performance characteristic determined by [facility] and validated at [facility]. This test has not been FDA [...] for SARS Antigen by [facility] PERFORMED BY: [address] [address] PATHOLOGIST ENVIRONMENTAL HEALTH TECHNICIAN TEOFILO KHAN M.D. [facility] Comment on above: Performed By: #### C OVID-19 MAYRA, SOFIANEG #### [address] [place] [address] [place] COVID-19 SOFIAOrdered By: Bebe mittalon Darryl on 12-20-2021 SARS-CoV+SARS-CoV-2 (COVID-19) Ag IA.rapid Ql (Resp) Negative Negative [facility] Comment on above: This is a duplicate Mayra SARS Antigen (SIN) result to be used for statistical tracking purpose only. No Panel InformationOrdered By: Sav Andrews on 12-20-2021 SARS Antigen (LFIA) [facility] Mayra Ag Negativeon 12-21-19 22 Mayra Ag Negative Negative Normal Negative [facility] Comment on above: Result Comment: This is a duplicate Mayra SARS Antigen (SIN) result to be used for statistical tracking purpose only. PERFORMED BY: [place] [address] PATHOLOGIST ENVIRONMENTAL HEALTH TECHNICIAN TEOFILO KHAN M.D. Performed By: #### C OVID-19 MAYRA, SOFIANEG #### [address] ANKLE RT WO CONon 022 [...] severe tricompartmental osteoarthropathy of the knee with xxmn-yi-clso articulation of the lateral compartment. SOFT TISSUES: Negative. No visible soft tissue swelling. EFFUSION: None visible. OTHER: Negative. IMPRESSION: Progression of subchondral degenerative cystic changes of the tibial plafond and calcaneus Moderate to severe knee osteoarthritis with gesu-ya-rafz articulation of the lateral compartment Electronically authenticated by: GERA BLUM Date: 2021-11-14 16:32 Normal [facility] CBC AUTO DIFFon 09-11-2021 BASO # 0.1 103/ul Normal 0.0-0.1 [facility] Comment on above: Performed By: #### C BC ####[facility] [address] [place] [address]Dr. Idania Tai Basophils/100 WBC (Bld) 0.8 % Normal 0.2-2.0 [facility] Comment on above: Performed By: #### C BC ####[facility] X[address] [place], [place] [address]Dr. Idania Tai EO # 0.2 103/ul Normal 0.0-0.7 [facility] Comment on above: Performed By: #### C BC ####[facility] [address] [place], [place] [address]Dr. Idania Tai Eosinophils/100 WBC (Bld) 2.2 % Normal 0.9-7.0 [facility] Comment on above: Performed By: #### C BC ####[facility] [address] [place], [place] [address]Dr. Idania Tai Erythrocyte distribution width (RBC) [Ratio] 13.1 % Normal 11.0-15.0 [facility] Comment on above: Performed By: #### C BC ####[facility] Edfc[address] [place], [place] [address]Dr. Idania Tai Hematocrit (Bld) [Volume fraction] 44.5 % Normal 42.0-54.0 [facility] Comment on above: Performed By: #### C BC ####[facility] [address] [place], [place] [address]Dr. Idania Tai Hemoglobin (Bld) [Mass/Vol] 14.9 g/dL Normal 14.0-18.0 [facility] Comment on above: Performed By: #### C BC ####[facility] [address] [place], [place] [address]Dr. Idania Tai IG # 0.13 10e3/ul Critically high 0.00-0.03 [facility] Comment on above: Performed By: #### C BC ####[facility] [address] [place] [id number]. Idania Tai IG % 1.5 % Critically high 0.0-0.5 [facility] Comment on above: Performed By: #### C BC ####[facility] [address] [place] [id number]. Idania Tai LYMPH # 2.4 103/ul Normal 1.2-3.8 [facility] Comment on above: Performed By: #### C BC ####[facility] [address] [place] [address]Dr. Idania Tai Lymphocytes/100 WBC (Bld) 27.7 % Normal 20.5-60.0 [facility] Comment on above: Performed By: #### C BC ####[facility] [address] [place], [place] [address]Dr. Idania Tai MANUAL DIFF REQ NO Normal [facility] Comment on above: Performed By: #### C BC ####[facility] [address] [place] [id number]. Idania Tai MCH (RBC) [Entitic mass] 28.9 pg Normal 25.9-34.0 [facility] Comment on above: Performed By: #### C BC ####[facility] [address] [place] [address]Dr. Idania Tai MCHC (RBC) [Mass/Vol] 33.5 g/dL Normal 29.9-35.2 [facility] Comment on above: Performed By: #### C BC ####[facility] [address] [place], [place] [address]Dr. Idania Tai MCV (RBC) [Entitic vol] 86.4 fL Normal 80.0-94.0 [facility] Comment on above: Performed By: #### C BC ####[facility] [address] [place], [place] [address]Dr. Idania Tai MONO # 0.6 103/ul Normal 0.3-0.8 [facility] Comment on above: Performed By: #### C BC ####[facility] [address] [place] [id number]. Idania Tai Monocytes/100 WBC (Bld) 6.4 % Normal 1.7-12.0 [facility] Comment on above: Performed By: #### C BC ####[facility] [address] [place] [id number]. Idania Tai NEUT # 5.3 103/ul Normal 1.4-6.5 [facility] Comment on above: Performed By: #### C BC ####[facility] [address] [place] [id number]. Idania Tai Neutrophils/100 WBC (Bld) 61.4 % Normal 43.0-75.0 [facility] Comment on above: Performed By: #### C BC ####[facility] [address] [place] [id number]. Idania Tai Platelet mean volume (Bld) [Entitic vol] 9.7 fL Normal 9.5-13.5 [facility] Comment on above: Performed By: #### C BC ####[facility] [address] [place] [id number]. Idania Tai PLT 219 103/ul Normal 150-450 [facility] Comment on above: Performed By: #### C BC ####[facility] [address] [place] [id number]. Idania Tai RBC 5.15 106/ul Normal 4.70-6.10 [facility] Comment on above: Performed By: #### C BC ####[facility] [address] [place] [id number]. Idania Tai WBC 8.6 103/ul Normal 4.0-11.0 [facility] Comment on above: Performed By: #### C BC ####[facility] [address] [place] [id number]. Idania Tai GLYCOHEMOGLOBIN A1Con 2021 ADA RECOMMENDATION ADA THERAPEUTIC TARGET 6.0 - 7.0 ACTION SUGGESTED > 7.0 Normal [facility] Comment on above: Performed By: #### A 1C ####[facility] [address] [place] [id number]. Idania Tai Glucose [Mass/Vol] 128 mg/dL Normal [facility] Comment on above: Performed By: #### A 1C ####[facility] [address] [place], [place] [address]JpDr. Idania Tai HbA1c (Bld) [Mass fraction] 6.1 % Critically high <=6.0 [facility] Comment on above: Performed By: #### A 1C ####[facility] [address] [place] [id number]. Idania Tai LIPID PROFILEon 09-11-2021 CHOL-HDL RATIO NORM SEE BELOW Normal [facility] Comment on above: Result Comment: 3.3 - 4.4 LOW RISK 4.4 - 7.1 AVERAGE RISK 7.1 - 11.0 MODERATE RISK >11.0 HIGH RISK Performed By: #### L IPID, CMP #### [facility] [address] [address] [address] Idania Tai Cholesterol [Mass/Vol] 175 mg/dL Normal <=200 [facility] Comment on above: Performed By: #### L IPID, CMP #### [facility] [address] [address] [address] dIania Tai Cholesterol in HDL [Mass/Vol] 54 mg/dL Normal 40-60 [facility] Comment on above: Performed By: #### L IPID, CMP #### [facility] [address] [address] [address] Idania Tai Cholesterol in LDL [Mass/Vol] 87.2 mg/dL Normal [facility] Comment on above: Performed By: #### L IPID, CMP #### [facility] [address] [address] [address] Idania Tai Cholesterol.total/Choles terol in HDL [Mass ratio] 3.2 {ratio} Normal [facility] Comment on above: Performed By: #### L IPID, CMP #### [facility] [address] [address] [address] Idania Tai HDL NORMAL > or = 60 mg/dl - LOW CARDIOVASCULAR RISK <40 mg/dl - HIGH CARDIOVASCULAR RISK Normal [facility] Comment on above: Performed By: #### L IPID, CMP #### [facility] [address] [address] [address] Idania Tai LDL CALC NORMAL SEE BELOW Normal [facility] Comment on above: Result Comment: <100 mg/dl OPTIMAL 100 - 129 mg/dl NEAR OR ABOVE OPTIMAL 130 - 159 mg/dl BORDERLINE HIGH 160 - 189 mg/dl HIGH >190 mg/dl VERY HIGH Performed By: #### L IPID, CMP #### [facility] [address] [address] [address] Idania Tai Triglyceride [Mass/Vol] 169 mg/dL Critically high <=150 [facility] Comment on above: Performed By: #### L IPID, CMP #### [facility] [address] [address] [address] Idania Tai VLDL CALC 33.8 mg/dL Normal [facility] Comment on above: Performed By: #### L IPID, CMP #### [facility] [address] [address] [address] Idania Tai MICROALBUMIN, RAND URon - mALB 1.9 mg/L Normal <=30.0 [facility] Comment on above: Performed By: #### M ALBR #### [facility] [address] [address] [address] Idania Tai PROF 14(COMP METB)on 022 Albumin [Mass/Vol] 3.7 g/dL Normal 3.4-5.0 [facility] Comment on above: Performed By: #### L IPID, CMP #### [facility] [address] [address] [address] Idania Tai Albumin/Globulin [Mass ratio] 0.9 {ratio} Normal [facility] Comment on above: Performed By: #### L IPID, CMP #### [facility] [address] [address] [address] Idania Tai ALP [Catalytic activity/Vol] 73 U/L Normal 46-116 [facility] Comment on above: Performed By: #### L IPID, CMP #### [facility] [address] [address] [address] Idania Tai ALT [Catalytic activity/Vol] 68 U/L Critically high 16-63 [facility] Comment on above: Performed By: #### L IPID, CMP #### [facility] [address] [address] [address] Idania Tai Anion gap [Moles/Vol] 10.2 mmol/L Normal [facility] Comment on above: Performed By: #### L IPID, CMP #### [facility] [address] [place] [address] Dr. Idania Tai AST [Catalytic activity/Vol] 30 U/L Normal 15-37 [facility] Comment on above: Performed By: #### L IPID, CMP #### [facility] [address] [address] [address] Idania Tai Bilirubin [Mass/Vol] 1.0 mg/dL Normal 0.2-1.3 [facility] Comment on above: Performed By: #### L IPID, CMP #### [facility] [address] [place] [address] Dr. Idania Tai Calcium [Mass/Vol] 8.5 mg/dL Normal 8.5-10.1 [facility] Comment on above: Performed By: #### L IPID, CMP #### [facility] [address] [place] [address] Dr. Idania Tai Chloride [Moles/Vol] 101 mmol/L Normal 98-107 [facility] Comment on above: Performed By: #### L IPID, CMP #### [facility] [address] [place] [address] Dr. Idania Tai CO2 [Moles/Vol] 31.6 mmol/L Critically high 22.0-30.0 [facility] Comment on above: Performed By: #### L IPID, CMP #### [facility] [address] [place] [address] Dr. Idania Tai Creatinine [Mass/Vol] 0.67 mg/dL Normal 0.66-1.25 [facility] Comment on above: Performed By: #### L IPID, CMP #### [facility] [address] [place] [address] Dr. Idania Tai EGFR-AF BAHAMIAN >60 Normal >=60 [facility] Comment on above: Performed By: #### L IPID, CMP #### [facility] [address] [address] [address] Idania Tai EGFR-NON AF BAHAMIAN >60 Normal >=60 [facility] Comment on above: Performed By: #### L IPID, CMP #### [facility] [address] [place] [address] Dr. Idania Tai Globulin (S) [Mass/Vol] 4.0 g/dL Normal [facility] Comment on above: Performed By: #### L IPID, CMP #### [facility] [address] [place] [address] Dr. Idania Tai Glucose [Mass/Vol] 114 mg/dL Critically high 74-106 [facility] Comment on above: Performed By: #### L IPID, CMP #### [facility] [address] [place] [address] Dr. Idania Tai Potassium [Moles/Vol] 4.8 mmol/L Normal 3.4-5.0 [facility] Comment on above: Performed By: #### L IPID, CMP #### [facility] [address] [place] [address] Dr. Idania Tai Protein [Mass/Vol] 7.7 g/dL Normal 6.1-8.2 [facility] Comment on above: Performed By: #### L IPID, CMP #### [facility] [address] [place] [address] Dr. Idania aTi Sodium [Moles/Vol] 138 mmol/L Normal 137-145 [facility] Comment on above: Performed By: #### L IPID, CMP #### [facility] [address] [place] [address] Dr. Idania Tai Urea nitrogen [Mass/Vol] 12.0 mg/dL Normal 7.0-18.0 [facility] Comment on above: Performed By: #### L IPID, CMP #### [facility] [address] [address] [address] Idania Tai Urea nitrogen/Creatinine [Mass ratio] 17.9 mg/mg Normal [facility] Comment on above: Performed By: #### L IPID, CMP #### [facility] [address] [address] [address] Idania Tai Vital Signs Date Time Vital Sign Value Performing Clinician Faci lity 09-10-2022 13:15-0400 Diastolic blood pressure 64 mm[Hg] MD Shaikh Baker Work Phone: [facility] 09-10-2022 13:15-0400 Heart rate 54 /min MD Shaikh Baker Work Phone: [facility] 09-10-2022 13:15-0400 Respiratory rate 16 /min MD Shaikh Baker Work Phone: [facility] 09-10-2022 13:15-0400 SaO2% (BldA) [Mass fraction] 97 % MD Shaikh Baker Work Phone: [facility] 09-10-2022 13:15-0400 Systolic blood pressure 100 mm[Hg] MD Shaikh Baker Work Phone: [facility] 09-10-2022 12:25-0400 Body temperature 97.5 [degF] MD Shaikh Baker Work Phone: [facility] 09-10-2022 11:55-0400 Inhaled oxygen flow rate 8 L/min MD Shaikh Baker Work Phone: [facility] 09-10-2022 10:54-0400 Body height 165.1 cm MD Shaikh Baker Work Phone: [facility] 09-10-2022 10:54-0400 Body mass index (BMI) [Ratio] 38.6 kg/m2 MD Shaikh Baker Work Phone: [facility] 09-10-2022 10:54-0400 Body weight 105.4 kg MD Shaikh Baker Work Phone: [facility] 12-22-2021 10:00-0400 Diastolic blood pressure 87 mm[Hg] MD Sav Andrews Work Phone: [facility] 12-22-2021 10:00-0400 Heart rate 54 /min MD Sav Andresw Work Phone: [facility] 12-22-2021 10:00-0400 Respiratory rate 18 /min MD Sav Andrews Work Phone: [facility] 12-22-2021 10:00-0400 SaO2% (BldA) [Mass fraction] 100 % MD Sav Andrews Work Phone: [facility] 12-22-2021 10:00-0400 Systolic blood pressure 139 mm[Hg] MD Sav Andrews Work Phone: [facility] 12-22-2021 07:37-0400 Body height 170.18 cm MD Sav Andrews Work Phone: [facility] 12-22-2021 07:37-0400 Body temperature 97.9 [degF] MD Sav Andrews Work Phone: [facility] 12-22-2021 07:37-0400 Body weight 81.64 kg MD Sav Andrews Work Phone: [facility] Encounters Encounter Date Encounter Type Care Provider Facility Start: 10-24-2023 End: 10-24-2023 ambulatory ANGELO FAWWAD Not Available Start: 09-16-2023 End: 09-16-2023 ambulatory ANGELO FAWWAD Not Available Start: 08-07-2023 End: 08-07-2023 ambulatory ANGELO SAMUEL Not Available Start: 09-10-2022 End: 09-10-2022 ambulatory Silver Alcantaraurora Facility:[facility] Start: 09-10-2022 End: 09-10-2022 Admission to same day surgery center MD Shaikh Baker Work Phone: [facility] [place] Start: 09-10-2022 End: 09-10-2022 ambulatory MD Shaikh Baker Work Phone: [facility] Work Phone: Start: 08-30-2022 End: 08-30-2022 ambulatory Silver Alcantaraurora Facility:[facility] Start: 08-30-2022 End: 08-30-2022 ambulatory MD Shaikh Baker Work Phone: [facility] Work Phone: Start: 08-30-2022 End: 08-30-2022 Patient encounter procedure MD Shaikh Baker Work Phone: [facility] Work Phone: Start: 07-07-2022 End: 07-08-2022 ambulatory ANGELO Adan SAMUEL Facility:[facility] Start: 03-13-2022 End: 03-14-2022 ambulatory ANGELO Adan SAMUEL Facility:[facility] Start: 12-22-2021 End: 12-22-2021 ambulatory Sav Andrews Facility:[facility] Start: 12-22-2021 End: 12-22-2021 Admission to same day surgery center MD Sav Andrews Work Phone: [facility] Start: 12-20-2021 End: 12-20-2021 ambulatory aSv Andrews Facility:[facility] Start: 12-20-2021 End: 12-20-2021 Patient encounter procedure MD Sav Andrews Work Phone: [facility] Start: 11-14-2021 End: 11-15-2021 ambulatory REY [...] Activity Detail Author Start: 09-10-2022 End: 09-10-2022 [facility] Start: 12-22-2021 [facility] Work Phone: Patient Education Hemorrhoids [facility] Work Phone: Immunizations Immunization Date Immunization Notes Care Provider Fa cili 10-10-2020 COVID-19 mRNA Comirmichelle (Pfizer) MD Sav Andrews Work Phone: [facility] 09-19-2020 COVID-19 mRNA Comirnatjoey (Pfizer) MD Sav Andrews Work Phone: [facility] Payers Date Payer Category Payer Self-pay [id number] 1965 Unknown [id number] 2.16.84 [id number] 1965 Unknown [id number] 2.16.84 [id number] 1966 Unknown [id number] 2.16.84 [id number] 1966 Unknown [id number] 2.16.84 [id number] 1966 Unknown [id number] 2.16.84 [id number] 1966 Unknown [id number] 2.16.84 0.1.983304.3.579.2.593 1966 Unknown [id number] 2.16.84 0.1.002599.3.579.2.593 1966 Unknown [id number] 2.16.84 0.1.375002.3.579.2.1259 1966 Unknown [id number] 2.16.84 0.1.529903.3.579.2.1259 1966 Unknown [id number] 2.16.84 [id number] 1959 Unknown [id number] Unknown [id number] 2.16.8 [id number] Unknown [id number] 2.16.8 [id number] Unknown [id number] 2.16.8 [id number] Unknown [id number] 2.16.8 [id number] Social History Date Type Detail Facility Start: 12-22-2021 End: 09-10-2022 Tobacco smoking status NHIS Ex-smoker (finding) [facility] Start: 1965 Sex Assigned At Male F [facility] Goals Date Patient Goal Desired Activity /State Procedure note 12-22-2021 Note Date & Type Note Facility 12-22-2021 Procedure note [facility] Clinical Note 10-26-2021 Note Date & [...] MICHELLE IBRAHIM Date: 2021-10-26 08:54 [facility] Clinical Note 09-05-2021 Note Date & [...] by: GERA BLUM Date: 2021-09-05 15:22 [facility] Evaluation note Note Date & Type Note Facility Evaluation note No assessment information availa [facility] Work Phone: History and physical note Note Date & Type Note Facility History and physical note Note Date/Time December 22, 2021 9:32 am [facility] [address] [place] [address] Gastroenterology H&P Signed Patient: Lavern Escobedo MR #: [id number] : 1965 Acct:[id number] Age/Sex: 56 / M Adm Date: 2 Loc: Room: Type: [facility] Attending Dr: Sav Andrews MD [...] <Electronically signed by Sav Andrews MD> 12/22/21931 [facility] Work Phone: Chief Complaint and Reason [...] DATE CREATED AUTHOR AUTHOR'S ORGANIZ ATION 10/02/2022 [facility] DATE CREATED AUTHOR AUTHOR'S ORGANIZ ATION 10/25/2023 [facility] EPIC Goals (unrecognized section and [...] BE BASED ON THE PRIMARY CLINICAL RECORDS. [employer] provides no warranty or guarantee of the accuracy or completeness of information in this document.
[2024-01-25 09:31] LABS: Alanine Aminotransferase 46 U/L (16-63); Albumin Globulin Ratio 0.8; Albumin Level 3.3 g/dL (3.4-5.0); Alkaline Phosphatase 63 U/L (46-116); Anion Gap 13.2; Aspartate Amino Transferase 21 U/L (15-37); BUN Creatinine Ratio 25.7; Calcium 8.8 mg/dL (8.5-10.1); Carbon Dioxide 27.3 mmol/L (21.0-32.0); Chloride 103 mmol/L (98-107); Chol HDL Ratio 3.4; Cholesterol 149 mg/dL (<=200); Estimated GFR (African America >60 (>=60); Estimated GFR (Non-African Ame >60 (>=60); Glucose 147 mg/dL (74-106); HDL Cholesterol 44 mg/dL (40-60); Potassium 4.5 mmol/L (3.5-5.1); Sodium 139 mmol/L (136-145); Total Protein 7.3 g/dL (6.4-8.2); Triglycerides 178 mg/dL (<=150); VLDL CHOLESTEROL 35.6 mg/dL
[2024-01-25 09:52] LABS: Estimated Average Glucose 171 mg/dL; Glycohemoglobin A1C 7.6 % (4.5-6.2)
== END 2024-01-25 08:34 | disposition home or self-care (01) ==
LOC: LAB 08:35
PROVIDERS: PCP Internal Medicine; Visit Provider Internal Medicine
DX: E78.5 Hyperlipidemia, unspecified (principal); E11.42 Type 2 diabetes mellitus with diabetic polyneuropathy; Z79.4 Long term (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
CPT/HCPCS: 36415; 80053; 80061; 83036

== ENCOUNTER 2024-04-15 15:06 | Outpatient (OUT) | payer BC, SELFPAY ==
--- NOTE | 2024-04-15 15:09 | XR_ITS ---
The [address] [address] Patient Name: LAVERN GARCIA MRN: [id number] date: 1965 Sex: M Assigned Patient Location: RAD Current Patient Location: RAD Accession/Order Number: [id number] Exam Date: 04/15/2024 15:10 Report Date: 04/17/2024 15:14 At the request of: REY ALCARAZ Procedure: XR ankle RT min 3V PROCEDURE: XR ankle RT min 3V HISTORY: RIGHT ANKLE PAIN COMPARISON: XR ankle right 01/16/2024 FINDINGS: BONES:Mechanical fusion of the ankle joint and hindfoot via intramedullary marci and locking screws. Prosthetic spacer replacement of the talus. No appreciable hardware fracture loosening. No bone fracture or dislocation. SOFT TISSUES:Soft tissue swelling surrounding the ankle, slightly increased. EFFUSION:None visible. OTHER: Negative. XR/XR ankle RT min 3V IMPRESSION: 1. Stable surgical changes without evidence of hardware failure or change in alignment. Electronically authenticated by: MICHELLE IBRAHIM Date: 04/17/2024 15:14
== END 2024-04-15 15:07 | disposition home or self-care (01) ==
LOC: RAD 15:06
PROVIDERS: PCP Internal Medicine; Visit Provider Podiatrist Foot & Ankle Surgery
DX: M25.571 Pain in right ankle and joints of right foot (principal); M24.671 Ankylosis, right ankle; Z98.890 Other specified postprocedural states
CPT/HCPCS: 73610

== ENCOUNTER 2024-07-18 08:25 | Outpatient (OUT) | payer BC, SELFPAY ==
--- OUTSIDE RECORDS SUMMARY | 2024-07-18 08:29 | XMS_ITS | CCD ---
Author Organization [facility] Care Team Providers Care X Ray Service Technician Name Role Phone MD Sav Andrews Attending Provider MD Deana Baker Primary Care Provider DR ASA AL Attending Unavailable ACACIA JENKINS Primary Care Unavailable MIKAELA, DR BRAY Admitting Unavailable LIZETH MARTIN Attending Unavailable ULISES, DR GERA Kwan Consulting Unavailable MARIO, LIZETH Admitting Unavailable GREGORY ACACIAMARY JO ELIZALDE Primary Care Unavailable MARIOLIZETH Consulting Unavailable FAWWAD, ANGELO H Admitting Unavailable FAWWAD, ANGELO H Primary Care Unavailable FAWWAD, ANGELO H Consulting Unavailable FAWWAD, ANGELO H Attending Unavailable REY PEREZ Attending Unavailable REY PEREZ Admitting Unavailable FAWWAD, ANGELO H Primary Care Unavailable ALEXANDRIA, DR MICHELLE Valles Consulting Unavailable HIGHLREY EVERETT Consulting Unavailable REY PEREZ Admitting Unavailable ULISES, DR GERA Kwan Consulting Unavailable REY PEREZ Attending Unavailable FAWWAD, ANGELO H Primary Care Unavailable REY PEREZ Consulting Unavailable FAWWAD, ANGELO H Admitting Unavailable FAWWAD, ANGELO H Primary Care Unavailable FAWWAD, ANGELO H Consulting Unavailable FAWWAD, ANGELO H Attending Unavailable FAWWAD, ANGELO H Primary Care Unavailable FAWWAD, ANGELO H Consulting Unavailable SWEETIEWACecile, ANGELO H Attending Unavailable SAMUEL, ANGELO H Admitting Unavailable MD Deana Baker Primary Care Provider [phone] DO Silver Briceño Attending Provider Sav Andrews Attending Unavailable Sav Andrews Admitting Unavailable Shaikh Baker Primary Care Unavailable Silver Briceño Attending Unavailable Silver Briceño Admitting Unavailable Shaikh Baker Primary Care Unavailable Sav Andrews Admitting Unavailable Sav Andrews Attending Unavailable Silver Briceño Attending Unavailable Silver Briceño Admitting Unavailable Shaikh Baker Primary Care Unavailable Antwan Perez MD Primary Care Provider Eva IRVING, Marquis Unavailable Samuel GUPTA, Unavailable SHAIKH BAKER Attending Unavailable SHAIKH BAKER Attending Unavailable SHAIKH BAKER Attending Unavailable MARQUIS VELASQUEZ Attending Unavailmichael e ABISAI BOATENG Attending Unavailable MARQUIS VELASQUEZ Referring MARQUIS Alberto Attending Unavailmichael e Medications Current Medications Medication Drug Class(es) Dates Sig (Normalized) Sig (Original) [id number] 200 actuat albuterol 0.09 mg/actuat metered dose inhaler (18 sources) beta2-Adrenergic Agonist Start: 05-08-2023 End: 05-01-2024 take 2 puff(s) by inhalation every four hours albuterol HFA 90 mcg/act inhaler Indications: Severe persistent asthma without complication (CMS/HCC) Inhale 2 puffs every 4 (four) hours if needed for shortness of breath 18 g 01/22/2024 05/01/2024 Active Start: 12-22-2021 take 1 puff(s) by in halation four times daily Albuterol Sulfate Active 1 PUFF INHALATION Four times daily December 22, 2021 12:00am amLODIPine 10 mg oral tablet (19 sources) Dihydropyridine Calcium Channel Rolando Start: 10-24-2023 End: 07-20-2024 take 1 tablet by mouth once daily amLODIPine (Norvasc) 10 MG tablet Indications: Primary hypertension (CMS/HCC) Take 1 tablet (10 mg) by mouth Daily 90 tablet 1 01/22/2024 07/20/2024 Active Start: 07-29-2022 take 5 mg by mouth o nce daily in the morning Amlodipine Active 5 MG PO Every morning December 22, 2021 12:00am aspirin 81 mg chewable tablet (19 sources) Platelet Aggregation Inhibitor, Nonsteroidal Anti-inflammatory Drug Start: 01-22-2024 End: 01-22-2024 aspirin 81 MG chewable tablet Indications: Hyperlipidemia, unspecified hyperlipidemia type (CMS/HCC) Chew 1 tablet (81 mg) in the morning. 30 tablet 2 01/22/2024 Active Start: 12-22-2021 take 81 mg by mouth once daily in the morning Aspirin Active 81 MG PO Every morning December 22, 2021 12:00am atorvastatin 40 mg oral tablet (20 sources) HMG-CoA Reductase Inhibitor Start: 10-24-2023 End: 07-20-2024 take 1 tablet by mouth once daily atorvastatin (Lipitor) 40 MG tablet Indications: Hyperlipidemia, unspecified hyperlipidemia type (CMS/HCC) Take 1 tablet (40 mg) by mouth Daily 90 tablet 1 01/22/2024 07/20/2024 Active Start: 08-30-2022 take 40 mg by mouth once daily in the morning Atorvastatin Active 40 MG PO Every morning August 30, 2022 12:00am Start: 12-22-2021 End: 08-30-2022 take 10 mg by mouth once daily Atorvastatin Discontinu ed 10 MG PO Daily December 22, 2021 12:00am August 30, 2022 5:17pm carvedilol 25 mg oral tablet (17 sources) alpha-Adrenergic Rolando, beta-Adrenergic Rolando Start: 10-24-2023 End: 07-20-2024 take 1 tablet by mouth in the morning carvedilol (Coreg) 25 MG tablet Indications: Resistant hypertension (CMS/HCC) Take 1 tablet (25 mg) by mouth in the morning and 1 tablet (25 mg) in the evening. Take with meals. 180 tablet 1 01/22/2024 07/20/2024 Active Start: 08-30-2022 take 25 mg by mouth twice christian y Carvedilol Active 25 MG PO Twice daily August 30, 2022 12:00am Continuous Glucose Material Inspector (FreeStyle Era 2 [place]) device (13 sources) Start: 03-19-2024 End: 03-19-2025 Continuous Glucose Material Inspector (FreeStyle Era 2 [place]) device Indications: Type 2 diabetes mellitus without complication, with long-term current use of insulin (CMS/HCC) 1 each in the morning and 1 each at noon and 1 each in the evening and 1 each before bedtime. 1 each 03/19/2024 03/19/2025 Active Start: 01-22-2024 End: 03-18-2024 Continuous Glucose Material Inspector (FreeStyle Era 2 [place]) device Indications: Type 2 diabetes mellitus without complication, with long-term current use of insulin (CMS/HCC) 1 each in the morning and 1 each at noon and 1 each in the evening and 1 each before bedtime. 1 each 01/22/2024 03/18/2024 Discontinued (Reorder) Start: 01-22-2024 End: 01-21-2025 Continuous Glucose Material Inspector (FreeStyle Era 2 [place]) device Indications: Type 2 diabetes mellitus without complication, with long-term current use of insulin (CMS/HCC) 1 each in the morning and 1 each at noon and 1 each in the evening and 1 each before bedtime. 1 each 01/22/2024 01/21/2025 Active Continuous Glucose Sensor (FreeStyle Era 2 Plus Sensor) misc (2 sources) Start: 04-27-2024 End: 05-25-2024 Continuous Glucose Sensor (FreeStyle Era 2 Plus Sensor) misc Indications: Type 2 diabetes mellitus with diabetic polyneuropathy, with long-term current use of insulin (CMS/HCC) 1 each continuously for 28 days 2 each 04/27/2024 05/25/2024 Active Continuous Glucose Sensor (FreeStyle Era 3 Plus Sensor) misc (2 sources) Start: 05-06-2024 End: 06-03-2024 Continuous Glucose Sensor (FreeStyle Era 3 Plus Sensor) misc Indications: Type 2 diabetes mellitus with diabetic polyneuropathy, with long-term current use of insulin (CMS/HCC) 1 each continuously for 28 days 2 each 05/06/2024 06/03/2024 Active End: 05-06-2024 Continuous Glucose Sensor (F reeStyle Era 3 Plus Sensor) misc 05/06/2024 Discontinued (Reorder) Pxroasjhrlx-Egiradper-Xkjdul (Trelegy Ellipta) 200-62.5-25 MCG/ACT aerosol powder (14 sources) Start: 01-22-2024 take 1 puff(s) by inhalation once daily Dznygraodzl-Jxdofxutq-Xxipct (Trelegy Ellipta) 200-62.5-25 MCG/ACT aerosol powder Indications: Severe persistent asthma without complication (CMS/HCC) Inhale 1 puff Daily 3 each 01/22/2024 Active Start: 01-22-2024 End: 04-21-2024 take 1 puff(s) by inhalation once daily Vcaatfqcwnn-Rvpnlxwca-Cfjmft (Trelegy Ellipta) 200-62.5-25 MCG/ACT aerosol powder Indications: Severe persistent asthma without complication (CMS/HCC) Inhale 1 puff Daily 3 each 01/22/2024 04/21/2024 Active Start: 05-08-2023 End: 01-22-2024 take 1 puff(s) by inhalation in the morning Vxtlzprteku-Jksykayrn-Foudpo (Trelegy Ellipta) 200-62.5-25 MCG/ACT aerosol powder Indications: Severe persistent asthma without complication (CMS/HCC) Inhale 1 puff in the morning. 3 each 05/08/2023 01/22/2024 Discontinued (Reorder) Start: 05-08-2023 take 1 puff(s) by inhalation in the morning Ttdydnvklnp-Lwfitgego-Txkmhb (Trelegy Ellipta) 200-62.5-25 MCG/ACT aerosol powder Indications: Severe persistent asthma without complication (CMS/HCC) Inhale 1 puff in the morning. 3 each 05/08/2023 Active Jpcwtbkrsgw-Stzjgndng-Xvaoif er (4 sources) Start: 12-22-2021 Iqilhuryogu-Oqlzcprhd-Spxsol er (Trelegy Ellipta) 200-62.5-25 mcg Blister With Device Active 1 INH INHALATION Every morning December 22, 2021 12:00am Start: 12-22-2021 Fluticasone-Um eclidin-Vilanter (Trelegy Ellipta) 200-62.5-25 mcg Blister With Device Active 1 INH INHALATION Daily December 22, 2021 12:00am glipiZIDE 5 mg oral tablet (15 sources) Sulfonylurea Start: 10-24-2023 End: 07-20-2024 take 1 tablet by mouth in the morning glipiZIDE (Glucotrol) 5 MG tablet Indications: Type 2 diabetes mellitus with diabetic polyneuropathy, with long-term current use of insulin (CMS/HCC) Take 1 tablet (5 mg) by mouth in the morning and 1 tablet (5 mg) in the evening. Take before meals. 180 tablet 1 01/22/2024 07/20/2024 Active hydroCHLOROthiazide 25 mg / losartan potassium 100 mg oral tablet (17 sources) Thiazide Diuretic, Angiotensin 2 Receptor Rolando Start: 10-24-2023 End: 07-20-2024 take 1 tablet by mouth once daily losartan-hydroCHLOR Othiazide (Hyzaar) 100-25 MG tablet Indications: Primary hypertension (CMS/HCC) Take 1 tablet by mouth Daily 90 tablet 1 01/22/2024 07/20/2024 Active Start: 08-30-2022 take 1 tablet by christina th once daily in the morning Losartan-Hydrochlorothiazide Active 1 TA B PO Every morning August 30, 2022 12:00am Insulin Detemir U-100 (Levem ir Flexpen) 100 unit/mL (3 mL) insulin pen (2 sources) Start: 08-30-2022 Insulin Detemi r U-100 (Levemir Flexpen) 100 unit/mL (3 mL) insulin pen Active 15 UNIT SUBCUT Every morning August 30, 2022 12:00am insulin glargine-yfgn (Semgl ee, yfgn,) 100 UNIT/ML injection (14 sources) Start: 04-27-2024 End: 04-27-2025 insulin glargine-yfgn (Semgl ee, yfgn,) 100 UNIT/ML injection Indications: Type 2 diabetes mellitus with diabetic polyneuropathy, with long-term current use of insulin (CMS/HCC) Inject 20 Units under the skin at bedtime 04/27/2024 04/27/2025 Active Start: 01-22-2024 End: 04-27-2024 insulin glargine-yfgn (Semgl ee, yfgn,) 100 UNIT/ML injection Indications: Type 2 diabetes mellitus with diabetic polyneuropathy, with long-term current use of insulin (CMS/HCC) Inject 25 Units under the skin at bedtime 7.5 mL 11 01/22/2024 04/27/2024 Discontinued (Dose adjustment) Start: 01-22-2024 End: 01-21-2025 insulin glargine-yfgn (Semgl ee, yfgn,) 100 UNIT/ML injection Indications: Type 2 diabetes mellitus with diabetic polyneuropathy, with long-term current use of insulin (CMS/HCC) Inject 25 Units under the skin at bedtime 7.5 mL 11 01/22/2024 01/21/2025 Active meloxicam 15 mg oral tablet (4 sources) Nonsteroidal Anti-inflammatory Drug Start: 12-22-2021 take 15 mg by mouth once daily in the morning Meloxicam Active 15 MG PO Every morning December 22, 2021 12:00am metFORMIN hydrochloride 850 mg oral tablet (19 sources) Biguanide Start: 10-24-2023 End: 07-20-2024 take 1 tablet by mouth in the morning metFORMIN (Glucophage) 850 MG tablet Indications: Hyperlipidemia, unspecified hyperlipidemia type (CMS/HCC) Take 1 tablet (850 mg) by mouth in the morning and 1 tablet (850 mg) in the evening. Take with meals. 180 tablet 1 01/22/2024 07/20/2024 Active Start: 12-22-2021 take 850 mg by mouth twice derick ly Metformin Active 850 MG PO Twice daily December 22, 2021 12:00am Start: 12-22-2021 take 850 mg by mouth once christian y Metformin Active 850 MG PO Daily December 22, 2021 12:00am Osgood 9-Ipc-Ecj-Fish Oil (Fish Oil) 1,200 (144-216) mg Capsule (4 sources) Start: 12-22-2021 take 1 capsule by mouth twice daily Osgood 9-Xom-Uqi-Fish Oil (Fish Oil) 1,200 (144-216) mg Capsule Active 1 CAP PO Twice daily December 22, 2021 12:00am omeprazole 40 mg delayed release oral capsule (20 sources) Proton Pump Inhibitor Start: 10-24-2023 End: 10-24-2024 take 1 capsule by mouth before mealtime omeprazole (PriLOSEC) [address] capsule Indications: Gastroesophageal reflux disease without esophagitis Take 1 capsule (40 mg) by mouth in the morning. Take before meals. 90 capsule 1 04/27/2024 10/24/2024 Active Start: 12-22-2021 take 40 mg by mouth once daily in the morning Omeprazole Active 40 MG PO Every morning December 22, 2021 12:00am SITagliptin 100 mg oral tablet (17 sources) Dipeptidyl Peptidase 4 Inhibitor Start: 10-24-2023 End: 07-20-2024 take 1 tablet by mouth once daily SITagliptin (Januvia) 100 MG tablet Indications: Type 2 diabetes mellitus with diabetic polyneuropathy, with long-term current use of insulin (CMS/HCC) Take 1 tablet (100 mg) by mouth Daily 90 tablet 1 01/22/2024 07/20/2024 Active Start: 08-30-2022 take 1 tablet by christina th once daily Sitagliptin Phosphate (Januvia) 100 mg tablet Active 100 MG PO Daily August 30, 2022 12:00am spironolactone 50 mg oral tablet (17 sources) Aldosterone Antagonist Start: 10-24-2023 End: 10-24-2024 take 1 tablet by mouth once daily spironolactone (Aldactone) 50 MG tablet Indications: Resistant hypertension (CMS/HCC) Take 1 tablet (50 mg) by mouth Daily 90 tablet 1 04/27/2024 10/24/2024 Active traMADol hydrochloride 50 mg oral tablet (1 source) Opioid Agonist Start: 09-10-2022 take 50 mg by mouth every six hours Tramadol Active 50 MG PO Q6H 30 7 September 10, 2022 12:00am Trelegy Ellipta 200-62.5-25 MCG/ACT aerosol powder (1 source) Start: 06-16-2024 take 1 puff(s) by inhalation once daily Trelegy Ellipta 200-62.5-25 MCG/ACT aerosol powder Indications: Severe persistent asthma without complication (CMS/HCC) INHALE 1 PUFF ONCE DAILY 180 each 06/16/2024 Active Completed/Discontinued Medications Medication Drug Class(es) Dates Sig (Normalized) Sig (Original) Continuous Blood Gluc Material Inspector (FreeStyle Era 2 [place]) device (3 sources) Start: 07-18-2023 End: 01-22-2024 Continuous Blood Gluc Material Inspector (FreeStyle Era 2 [place]) device Indications: Type 2 diabetes mellitus without complication, with long-term current use of insulin (CMS/HCC) 1 each in the morning and 1 each at noon and 1 each in the evening and 1 each before bedtime. 1 each 07/18/2023 01/22/2024 Discontinued (Reorder) Start: 07-18-2023 End: 07-17-2024 Continuous Blood Gluc Receiv er (FreeStyle Era 2 [place]) device Indications: Type 2 diabetes mellitus without complication, with long-term current use of insulin (CMS/HCC) 1 each in the morning and 1 each at noon and 1 each in the evening and 1 each before bedtime. 1 each 07/18/2023 07/17/2024 Active insulin glargine-yfgn (Semgl ee, yfgn,) 100 UNIT/ML pen (3 sources) Start: 10-24-2023 End: 01-22-2024 insulin glargine-yfgn (Semgl ee, yfgn,) 100 UNIT/ML pen Indications: Type 2 diabetes mellitus with diabetic polyneuropathy, with long-term current use of insulin (CMS/HCC) Inject 25 Units under the skin at bedtime 22.5 mL 1 10/24/2023 01/22/2024 Discontinued (Reorder) Start: 10-24-2023 End: 04-21-2024 insulin glargine-yfgn (Semgl ee, yfgn,) 100 UNIT/ML pen Indications: Type 2 diabetes mellitus with diabetic polyneuropathy, with long-term current use of insulin (CMS/HCC) Inject 25 Units under the skin at bedtime 22.5 mL 1 10/24/2023 04/21/2024 Active Problems Active Problems Problem Classification Problem Date Documented Date Episodic/Chronic Asthma (16 sources) Uncomplicated severe persistent asthma; Translations: [Severe persistent asthma, uncomplicated] Onset: 08-07-2023 08-07-2023 Chronic Diabetes mellitus with complications (20 sources) Type 2 diabetes mellitus with diabetic autonomic (poly)neuropathy; Translations: [Polyneuropathy due to type 2 diabetes mellitus] Onset: 09-14-2021 08-07-2023 Chronic Diabetes mellitus without complication (4 sources) Type 2 diabetes mellitus without complications; Translations: [Type 2 diabetes mellitus without complication] Onset: 07-13-2022 03-18-2024 Chronic Disorders of lipid metabolism (20 sources) Hyperlipidemia, unspecified; Translations: [Mixed hyperlipidemia] Onset: 09-14-2021 08-07-2023 Chronic Esophageal disorders (17 sources) Gastroesophageal reflux disease without esophagitis; Translations: [Gastro-esophageal reflux disease without esophagitis] Onset: 08-07-2023 08-07-2023 Chronic Essential hypertension (20 sources) Essential (primary) hypertension; Translations: [Resistant hypertensive disorder] Onset: 07-07-2022 Chronic Mycoses (2 sources) Onychomycosis; Translations: [Tinea unguium] 02-24-2024 Episodic Other bone disease and musculoskeletal deformities (4 sources) Idiopathic aseptic necrosis of right ankle; Translations: [IDIOPATH ASEPTIC NECROSIS RT ANKLE] Onset: 11-14-2021 Chronic Other skin disorders (2 sources) Dystrophia unguium; Translations: [Nail dystrophy] 02-24-2024 Episodic Unclassified (1 source) Second degree hemorrhoids; Translations: [Second degree hemorrhoids] Onset: 09-10-2022 Unclassified (1 source) Encounter for preprocedural laboratory examination; Translations: [Encounter for preprocedural laboratory examination] Onset: 08-30-2022 Unclassified (1 source) Encounter for screening for malignant neoplasm of colon; Translations: [Encounter for screening for malignant neoplasm of colon] Onset: 12-22-2021 Past or Other Problems Problem Classification Problem Date Documented Da te Episodic/Chronic Hemorrhoids (14 sources) Hemorrhoids; Translations: [Unspecified hemorrhoids] Onset: 08-07-2023 09-10-2022 Episodic Other non-traumatic joint disorders (4 sources) Pain in right ankle and joints of right foot; Translations: [PAIN IN RIGHT ANKLE] Onset: 10-25-2021 Episodic Residual codes; unclassified (4 sources) Procedure and treatment not carried out for other reasons; Translations: [PROC AND TX NOT CARRIED OUT OTH REASONS] Onset: 08-03-2021 Episodic Results Test Name Value Interpretation Reference Range Facility ALL LIPID PROFILE (FASTING)o n 01-25-2024 CHOL HDL RATIO 3.4 [facility] Comment on above: 3.3 - 4.4 LOW RISK 4.4 - 7.1 AVERAGE RISK 7.1 - 11.0 MODERATE RISK >11.0 HIGH RISK Cholesterol [Mass/Vol] 149 mg/dL NINF - 200 mg/dL [facility] Cholesterol in HDL [Mass/Vol] 44 mg/dL 40 - 60 mg/dL [facility] Comment on above: > or =60 mg/dl - LOW CARDIOVASCULAR RISK <40 mg/dl - HIGH CARDIOVASCULAR RISK Magnesium [Mass/Vol] 70.0 mg/dL [facility] Comment on above: <100 mg/dl OPTIMAL 100-129 mg/dl NEAR OR ABOVE OPTIMAL 130-159 mg/dl BORDERLINE HIGH 160-189 mg/dl HIGH >190 mg/dl VERY HIGH Magnesium [Mass/Vol] 35.6 mg/dL [facility] Triglyceride [Mass/Vol] 178 mg/dL High NINF - 150 mg/dL [facility] CMP (CMP) (FOR REMOTE FH C USE)on 01-25-2024 Albumin [Mass/Vol] 3.3 g/dL Low 3.4 - 5.0 g/dL [facility] ALBUMIN GLOBULIN RATIO 0.8 NO [facility] ALP [Catalytic activity/Vol] 63 U/L 46 - 116 U/L [facility] ALT [Catalytic activity/Vol] 46 U/L 16 - 63 U/L [facility] Anion gap [Moles/Vol] 13.2 mmol/L NO [facility] AST [Catalytic activity/Vol] 21 U/L 15 - 37 U/L [facility] Bilirubin [Mass/Vol] 1.0 mg/dL 0.2 - 1 .0 mg/dL [facility] Calcium [Mass/Vol] 8.8 mg/dL 8.5 - 10. 1 mg/dL [facility] Chloride [Moles/Vol] 103 mmol/L 98 - 10 7 mmol/L [facility] CO2 [Moles/Vol] 27.3 mmol/L 21.0 - 32.0 mmol/L [facility] Creatinine [Mass/Vol] 1.09 mg/dL 0.70 - 1.30 mg/dL [facility] GFR/1.73 sq M.predicted CKD-EPI (S/P/Bld) [Vol rate/Area] >60 60 - PINF [facility] Globulin (S) [Mass/Vol] 4.0 g/dL [facility] Glucose [Mass/Vol] 147 mg/dL High 74 - 106 mg/dL [facility] Potassium [Moles/Vol] 4.5 mmol/L 3.5 - 5.1 mmol/L [facility] Protein [Mass/Vol] 7.3 g/dL 6.4 - 8.2 g/dL [facility] Sodium [Moles/Vol] 139 mmol/L 136 - 145 mmol/L [facility] TBH EGFR-NON AF ANDORRAN >60 60 - PINF [facility] Urea nitrogen [Mass/Vol] 28.0 mg/dL High 7.0 - 18.0 mg/dL [facility] Urea nitrogen/Creatinine [Mass ratio] 25.7 mg/mg [facility] No Panel Informationon 01-24 Interpretation and review of laboratory results Abnormal [facility] Glucose Glucometer (BldC) [M ass/Vol]Ordered By: Silver Briceño on 09-10-2022 Glucose [Mass/Vol] 137 mg/dL [facility] Comment on above: Random Glucose Refer ence Range is dependent on time and content of last meal. Glucose of more than 200 mg/dL in a nonstressed, ambulatory subject supports the diagnosis of Diabetes Mellitus. Glucose [Mass/Vol] 131 mg/dL [facility] Comment on above: Random Glucose Refer ence Range is dependent on time and content of last meal. Glucose of more than 200 mg/dL in a nonstressed, ambulatory subject supports the diagnosis of Diabetes Mellitus. Glucose Poct Glucometerson 0 09-10-2022 Glucose [Mass/Vol] 137 mg/dL Normal [facility] Comment on above: Result Comment: [place] Glucose Reference Range is dependent on time and content of last meal. Glucose of more than 200 mg/dL in a nonstressed, ambulatory subject supports the diagnosis of Diabetes Mellitus. PERFORMED BY: [facility] [address] [place] [address] PATHOLOGIST CATCHER PLUG TEOFILO KHAN M.D. Performed By: #### G LULS #### Point of Care testing , Glucose [Mass/Vol] 131 mg/dL Normal [facility] Comment on above: Result Comment: [place] Glucose Reference Range is dependent on time and content of last meal. Glucose of more than 200 mg/dL in a nonstressed, ambulatory subject supports the diagnosis of Diabetes Mellitus. PERFORMED BY: [facility] [address] [place] [address] PATHOLOGIST CATCHER PLUG TEOFILO KHAN M.D. Performed By: #### G LULS #### Point of Care testing , Basic Metabolic Panelon 04-0 Anion gap [Moles/Vol] 13.5 mmol/L Normal 6.0-15.0 [facility] Comment on above: Performed By: #### C BC, BMP #### [facility] [address] Calcium [Mass/Vol] 9.4 mg/dL Normal 8.6-10.3 [facility] Comment on above: Result Comment: PERF ORMED BY: [place] [address] PATHOLOGIST CATCHER PLUG TEOFILO KHAN M.D. Performed By: #### C SAI, BMP #### [address] Chloride [Moles/Vol] 102 mmol/L Normal 98-107 [facility] Comment on above: Performed By: #### C BC, BMP #### [address] CO2 [Moles/Vol] 28.5 mmol/L Normal 21.0-31.0 [facility] Comment on above: Performed By: #### C SAI, BMP #### [address] Creatinine [Mass/Vol] 0.99 mg/dL Normal 0.70-1.30 [facility] Comment on above: Performed By: #### C BC, BMP #### [place] [address] [place] GFR/1.73 sq M.predicted MDRD (S/P/Bld) [Vol rate/Area] mL/min/{1.73_m2} Normal [facility] Comment on above: Performed By: #### C BC, BMP #### [place] [address] [place] Glucose [Mass/Vol] 114 mg/dL High 70-100 [facility] Comment on above: Result Comment: [facility] Glucose Reference Range is dependent on time and content of last meal. Glucose of more than 200 mg/dL in a nonstressed, ambulatory subject supports the diagnosis of Diabetes Mellitus. ADA recommended reference range Performed By: #### C BC, BMP #### [facility] [address] Potassium [Moles/Vol] 4.0 mmol/L Normal 3.5-5.1 [facility] Comment on above: Performed By: #### C BC, BMP #### [facility] [address] Sodium [Moles/Vol] 140 mmol/L Normal 136-145 [facility] Comment on above: Performed By: #### C BC, BMP #### [facility] [address] Urea nitrogen [Mass/Vol] 21 mg/dL Normal 7-25 [facility] Comment on above: Performed By: #### C BC, BMP #### [facility] [address] Basophils Auto (Bld) [#/Vol] Ordered By: Silver Briceño on 08-30-2022 Basophils (Bld) [#/Vol] 0.0 10*3/uL 0.0-0.2 [facility] Basophils/100 WBC Auto (Bld) Ordered By: Silver Briceño on 08-30-2022 Basophils/100 WBC (Bld) 0.7 % . [facility] Calcium [Mass/volume] in Ser um or PlasmaOrdered By: Silver Briceño on 08-30-2022 Calcium [Mass/Vol] 9.4 mg/dL 8.6-10.3 [facility] Carbon dioxide, total [Moles /volume] in Serum or PlasmaOrdered By: Silver Briceño on 08-30-2022 CO2 [Moles/Vol] 28.5 mmol/L 21.0-31.0 [facility] Chloride [Moles/volume] in S gela or PlasmaOrdered By: Silver Briceño on 08-30-2022 Chloride [Moles/Vol] 102 mmol/L 98-107 [facility] Complete Blood Count Auto Di ffon 08-30-2022 Basophils (Bld) [#/Vol] 0.0 10*3/uL Normal 0.0-0.2 [facility] Comment on above: Result Comment: PERF ORMED BY: [place] [address] PATHOLOGIST CATCHER PLUG TEOFILO KHAN M.D. Performed By: #### C BC, BMP #### [facility] [address] [place] [address] [place] Basophils/100 WBC (Bld) 0.7 % Normal . [facility] Comment on above: Performed By: #### C BC, BMP #### [facility] [address] [place] [address] [place] Eosinophils (Bld) [#/Vol] 0.3 10*3/uL Normal 0.0-0.45 [facility] Comment on above: Performed By: #### C BC, BMP #### [address] Eosinophils/100 WBC (Bld) 6.1 % Normal . [facility] Comment on above: Performed By: #### C BC, BMP #### [address] Erythrocyte distribution width (RBC) [Ratio] 14.5 % Normal 12.0-14.8 [facility] Comment on above: Performed By: #### C BC, BMP #### [address] Hematocrit (Bld) [Volume fraction] 36.5 % Low 38.8-50.0 [facility] Comment on above: Performed By: #### C BC, BMP #### [place] [address] [place] Hemoglobin (Bld) [Mass/Vol] 12.5 g/dL Low 13.0-17.0 [facility] Comment on above: Performed By: #### C BC, BMP #### [place] [address] [place] Lymphocytes (Bld) [#/Vol] 1.8 10*3/uL Normal 1.00-4.8 [facility] Comment on above: Performed By: #### C BC, BMP #### [facility] [address] [place] [address] [place] Lymphocytes/100 WBC (Bld) 35.5 % Normal . [facility] Comment on above: Performed By: #### C BC, BMP #### [facility] [address] [place] [id number] [facility] MCH (RBC) [Entitic mass] 29.2 pg Normal 27.5-35.2 [facility] Comment on above: Performed By: #### C BC, BMP #### [facility] [address] MCV (RBC) [Entitic vol] 85.1 fL Normal 83.5-101 [facility] Comment on above: Performed By: #### C BC, BMP #### [facility] [address] Mean Corpuscular HGB Conc 34.3 g/dL Normal 32.5-35.6 [facility] Comment on above: Performed By: #### C BC, BMP #### [facility] [address] [place] [address] [place] Monocytes (Bld) [#/Vol] 0.4 10*3/uL Normal 0.0-0.8 [facility] Comment on above: Performed By: #### C BC, BMP #### [facility] [address] [place] [address] [place] Monocytes/100 WBC (Bld) 8.2 % Normal . [facility] Comment on above: Performed By: #### C BC, BMP #### [facility] [address] [place] [id number] [place] Neutrophils (Bld) [#/Vol] 2.5 10*3/uL Normal 1.8-7.7 [facility] Comment on above: Performed By: #### C BC, BMP #### [facility] [address] [place] [id number] [place] Neutrophils/100 WBC (Bld) 49.5 % Normal . [facility] Comment on above: Performed By: #### C BC, BMP #### [facility] [address] [place] [address] [place] NRBC% 0.2 /100{WBC} Normal 0-0.5 [facility] Comment on above: Performed By: #### C BC, BMP #### [facility] [address] Platelet mean volume (Bld) [Entitic vol] 8.8 fL Normal 6.6-10.1 [facility] Comment on above: Performed By: #### C SAI, BMP #### [facility] [address] Platelets (Bld) [#/Vol] 155 10*3/uL Normal 150-450 [facility] Comment on above: Performed By: #### C SAI, BMP #### [facility] [address] RBC (Bld) [#/Vol] 4.29 10*6/uL Normal 3.90-5.60 [facility] Comment on above: Performed By: #### C SAI, BMP #### [facility] [address] WBC (Bld) [#/Vol] 5.1 10*3/uL Normal 4.1-10.5 [facility] Comment on above: Performed By: #### C SAI, BMP #### [address] Creatinine [Mass/volume] in Serum or PlasmaOrdered By: Silver Briceño on 08-30-2022 Creatinine [Mass/Vol] 0.99 mg/dL 0.70-1.30 [facility] ECG 12 lead ECGon 08-30-2022 ECG 12 lead ECG [facility] [place] [address] [place] [address] Electrocardiograph Report Signed Patient: Dante Dietz MR#: [id number] : 1965 Acct:[id number] Age/Sex: 57 / M ADM Date: 08/30/22 Loc: Room: Type: [facility] CLI Attending Dr: Silver Briceño DO Ordering Provider: [...] previous ECGs available Confirmed by [facility]ATE GUPTA [id number] on 08/31/2022 12:23:25 PM Referred By: FREDDY Electronically Signed By:LEANNA LOVE MD [facility] Transcribed By: MUS Signed By Leo Love MD 08/31/22 1223 Normal [facility] Eosinophils Auto (Bld) [#/Vo l]Ordered By: Silver Briceño on 08-30-2022 Eosinophils (Bld) [#/Vol] 0.3 10*3/uL 0.0-0.45 [facility] Eosinophils/100 WBC Auto (Bl d)Ordered By: Silver Briceño on 08-30-2022 Eosinophils/100 WBC (Bld) 6.1 % . [facility] Erythrocyte distribution wid th Auto (RBC) [Ratio]Ordered By: Silver Briceño on 08-30-2022 Erythrocyte distribution width (RBC) [Ratio] 14.5 % 12.0-14.8 [facility] Glucose [Mass/volume] in Ser um or PlasmaOrdered By: Silver Briceño on 08-30-2022 Glucose [Mass/Vol] 114 mg/dL 70-100 [facility] Comment on above: ADA recommended refe rence rangeRandom Glucose Reference Range is dependent on time and content of last meal. Glucose of more than 200 mg/dL in a nonstressed, ambulatory subject supports the diagnosis of Diabetes Mellitus. Hematocrit Auto (Bld) [Volum e fraction]Ordered By: Silver Briceño on 08-30-2022 Hematocrit (Bld) [Volume fraction] 36.5 % 38.8-50.0 [facility] Hemoglobin [Mass/volume] in BloodOrdered By: Silver Briceño on 08-30-2022 Hemoglobin (Bld) [Mass/Vol] 12.5 g/dL 13.0-17.0 [facility] Leukocytes [#/volume] correc shashi for nucleated erythrocytes in Blood by Automated counOrdered By: Silver Briceño on 08-30-2022 WBC corrected for nucl RBC Auto (Bld) [#/Vol] 5.1 10*3/uL 4.1-10.5 [facility] Lymphocytes Auto (Bld) [#/Vo l]Ordered By: Silver Briceño on 08-30-2022 Lymphocytes (Bld) [#/Vol] 1.8 10*3/uL 1.00-4.8 [facility] Lymphocytes/100 WBC Auto (Bl d)Ordered By: Silver Briceño on 08-30-2022 Lymphocytes/100 WBC (Bld) 35.5 % . [facility] MCH Auto (RBC) [Entitic mass ]Ordered By: Silver Briceño on 08-30-2022 MCH (RBC) [Entitic mass] 29.2 pg 27.5-35.2 [facility] MCHC Auto (RBC) [Mass/Vol]Or dered By: Silver Briceño on 08-30-2022 MCHC (RBC) [Mass/Vol] 34.3 g/dL 32.5-35.6 [facility] MCV Auto (RBC) [Entitic vol] Ordered By: Silver Briceño on 08-30-2022 MCV (RBC) [Entitic vol] 85.1 fL 83.5-101 [facility] Monocytes Auto (Bld) [#/Vol] Ordered By: Silver Briceño on 08-30-2022 Monocytes (Bld) [#/Vol] 0.4 10*3/uL 0.0-0.8 [facility] Monocytes/100 WBC Auto (Bld) Ordered By: Silver Briceño on 08-30-2022 Monocytes/100 WBC (Bld) 8.2 % . [facility] Neutrophils Auto (Bld) [#/Vo l]Ordered By: Silver Briceño on 08-30-2022 Neutrophils (Bld) [#/Vol] 2.5 10*3/uL 1.8-7.7 [facility] Neutrophils/100 WBC Auto (Bl d)Ordered By: Silver Briceño on 08-30-2022 Neutrophils/100 WBC (Bld) 49.5 % . [facility] No Panel InformationOrdered By: Silver Briceño on 08-30-2022 Estimated GFR (CKD-EPI) > 60.0 mL/Min [facility] Creatinine Clearance (Chem N/A [facility] Nucleated erythrocytes [Pres ence] in Blood by Automated countOrdered By: Silver Briceño on 08-30-2022 Nucleated RBC Auto Ql (Bld) 0.2 /100{WBC} 0-0.5 [facility] Platelet mean volume Auto (B ld) [Entitic vol]Ordered By: Silver Briceño on 08-30-2022 Platelet mean volume (Bld) [Entitic vol] 8.8 fL 6.6-10.1 [facility] Platelets Auto (Bld) [#/Vol] Ordered By: Silver Briceño on 08-30-2022 Platelets (Bld) [#/Vol] 155 10*3/uL 150-450 [facility] Potassium [Moles/volume] in Serum or PlasmaOrdered By: Silver Briceño on 08-30-2022 Potassium [Moles/Vol] 4.0 mmol/L 3.5-5.1 [facility] RBC Auto (Bld) [#/Vol]Ordere d By: Silver Briceño on 08-30-2022 RBC (Bld) [#/Vol] 4.29 10*6/uL 3.90-5.60 [facility] Serum or plasma anion gap de terminationOrdered By: Silver Briceño on 08-30-2022 Anion gap [Moles/Vol] 13.5 mmol/L 6.0-15.0 [facility] Sodium [Moles/volume] in Ser um or PlasmaOrdered By: Silver Briceño on 08-30-2022 Sodium [Moles/Vol] 140 mmol/L 136-145 [facility] Urea nitrogen [Mass/volume] in Serum or PlasmaOrdered By: Silver Briceño on 08-30-2022 Urea nitrogen [Mass/Vol] 21 mg/dL 7-25 [facility] WBC Auto (Bld) [#/Vol]Ordere d By: Silver Briceño on 08-30-2022 WBC (Bld) [#/Vol] 5.1 10*3/uL 4.1-10.5 [facility] GLYCOHEMOGLOBIN A1Con 2022 ADA RECOMMENDATION SEE BELOW Normal [facility] Comment on above: Result Comment: ADA RECOMMENDED LIMIT 4.0 - 6.0 ADA THERAPEUTIC TARGET < 7.0 ACTION SUGGESTED > 7.0 Performed By: #### A 1C #### [facility] [address] [place] [address] [address] Idania Tai Glucose [Mass/Vol] 243 mg/dL Normal [facility] Comment on above: Performed By: #### A 1C #### [facility] [address] [place] [address] Dr. Idania Tai HbA1c (Bld) [Mass fraction] 10.1 % Critically high 4.5-6.2 [facility] Comment on above: Performed By: #### A 1C #### [facility] [address] [place] [address] Dr. Idania Tai LIPID PROFILEon 07-07-2022 CHOL-HDL RATIO NORM SEE BELOW Normal [facility] Comment on above: Result Comment: 3.3 - 4.4 LOW RISK 4.4 - 7.1 AVERAGE RISK 7.1 - 11.0 MODERATE RISK >11.0 HIGH RISK Performed By: #### B MP, LIPID #### [facility] [address] [place] [address] [address] Idania Tai Cholesterol [Mass/Vol] 172 mg/dL Normal <=200 [facility] Comment on above: Performed By: #### B MP, LIPID #### [facility] [address] [place] [address] [address] Idania Tai Cholesterol in HDL [Mass/Vol] 48 mg/dL Normal 40-60 [facility] Comment on above: Performed By: #### B MP, LIPID #### [facility] [address] [place] [address] [address] Idania Tai Cholesterol in LDL [Mass/Vol] 95.6 mg/dL Normal [facility] Comment on above: Performed By: #### B MP, LIPID #### [facility] [address] [place] [address] [address] Idania Tai Cholesterol.total/Choles terol in HDL [Mass ratio] 3.6 {ratio} Normal [facility] Comment on above: Performed By: #### B MP, LIPID #### [facility] [address] [place] [address] [address] Idania Tai HDL NORMAL > or = 60 mg/dl - LOW CARDIOVASCULAR RISK <40 mg/dl - HIGH CARDIOVASCULAR RISK Normal [facility] Comment on above: Performed By: #### B MP, LIPID #### [facility] [address] [place] [address] Dr. Idania Tai LDL CALC NORMAL SEE BELOW Normal [facility] Comment on above: Result Comment: <100 mg/dl OPTIMAL 100 - 129 mg/dl NEAR OR ABOVE OPTIMAL 130 - 159 mg/dl BORDERLINE HIGH 160 - 189 mg/dl HIGH >190 mg/dl VERY HIGH Performed By: #### B MP, LIPID #### [facility] [address] [place] [address] Dr. Idania Tai Triglyceride [Mass/Vol] 142 mg/dL Normal <=150 [facility] Comment on above: Performed By: #### B MP, LIPID #### [facility] [address] [place] [address] Dr. Idania Tai VLDL CALC 28.4 mg/dL Normal [facility] Comment on above: Performed By: #### B MP, LIPID #### [facility] [address] [place] [address] Dr. Idania Tai PROF CHEM 8 (BAS METB)on Anion gap [Moles/Vol] 11.0 mmol/L Normal [facility] Comment on above: Performed By: #### B MP, LIPID #### [facility] [address] [place] [address] Dr. Idania Tai Calcium [Mass/Vol] 9.1 mg/dL Normal 8.5-10.1 [facility] Comment on above: Performed By: #### B MP, LIPID #### [facility] [address] [place] [address] [address] Idania Tai Chloride [Moles/Vol] 100 mmol/L Normal 98-107 [facility] Comment on above: Performed By: #### B MP, LIPID #### [facility] [address] [place] [address] [address] Idania Tai CO2 [Moles/Vol] 32.6 mmol/L Critically high 21.0-32.0 [facility] Comment on above: Performed By: #### B MP, LIPID #### [facility] [address] [place] [address] [address] Idania Tai Creatinine [Mass/Vol] 0.81 mg/dL Normal 0.70-1.30 [facility] Comment on above: Performed By: #### B MP, LIPID #### [facility] [address] [place] [address] [address] Idania Tai EGFR-AF ANDORRAN >60 Normal >=60 [facility] Comment on above: Performed By: #### B MP, LIPID #### [facility] [address] [place] [address] [address] Idania Tai EGFR-NON AF ANDORRAN >60 Normal >=60 [facility] Comment on above: Performed By: #### B MP, LIPID #### [facility] [address] [place] [address] [address] Idania Tai Glucose [Mass/Vol] 157 mg/dL Critically high 74-106 [facility] Comment on above: Performed By: #### B MP, LIPID #### [facility] [address] [place] [address] [address] Idania Tai Potassium [Moles/Vol] 3.6 mmol/L Normal 3.5-5.1 [facility] Comment on above: Performed By: #### B MP, LIPID #### [facility] [address] [place] [address] [address] Idania Tai Sodium [Moles/Vol] 140 mmol/L Normal 136-145 [facility] Comment on above: Performed By: #### B MP, LIPID #### [facility] [address] [place] [address] [address] Idania Tai Urea nitrogen [Mass/Vol] 16.0 mg/dL Normal 7.0-18.0 [facility] Comment on above: Performed By: #### B MP, LIPID #### [facility] [address] [place] [address] [address] Idania Tai Urea nitrogen/Creatinine [Mass ratio] 19.8 mg/mg Normal [facility] Comment on above: Performed By: #### B MP, LIPID #### [facility] [address] [place] [address] [address] Idania Tai PROF CHEM 8 (BAS METB)on Anion gap [Moles/Vol] 16.1 mmol/L Normal [facility] Comment on above: Performed By: #### B MP #### [facility] [address] [place] [address] Dr. Idania Tai Calcium [Mass/Vol] 9.4 mg/dL Normal 8.5-10.1 [facility] Comment on above: Performed By: #### B MP #### [facility] [address] [place] [address] [address] Idania Tai Chloride [Moles/Vol] 98 mmol/L Normal 98-107 [facility] Comment on above: Performed By: #### B MP #### [facility] [address] [place] [address] Dr. Idania Tai CO2 [Moles/Vol] 26.0 mmol/L Normal 21.0-32.0 [facility] Comment on above: Performed By: #### B MP #### [facility] [address] [place] [address] Dr. Idania Tai Creatinine [Mass/Vol] 0.78 mg/dL Normal 0.70-1.30 [facility] Comment on above: Performed By: #### B MP #### [facility] [address] [place] [address] Dr. Idania Tai EGFR-AF ANDORRAN >60 Normal >=60 [facility] Comment on above: Performed By: #### B MP #### [facility] [address] [place] [address] [address] Idania Tai EGFR-NON AF ANDORRAN >60 Normal >=60 [facility] Comment on above: Performed By: #### B MP #### [facility] [address] [place] [address] [address] Idania Tai Glucose [Mass/Vol] 131 mg/dL Critically high 74-106 [facility] Comment on above: Performed By: #### B MP #### [facility] [address] [place] [address] [address] Idania Tai Potassium [Moles/Vol] 4.1 mmol/L Normal 3.5-5.1 [facility] Comment on above: Performed By: #### B MP #### [facility] [address] [place] [address] [address] Idania Tai Sodium [Moles/Vol] 136 mmol/L Normal 136-145 [facility] Comment on above: Performed By: #### B MP #### [facility] [address] [place] [address] [address] Idania Tai Urea nitrogen [Mass/Vol] 19.0 mg/dL Critically high 7.0-18 .0 [facility] Comment on above: Performed By: #### B MP #### [facility] [address] [place] [address] [address] Idania Tai Urea nitrogen/Creatinine [Mass ratio] 24.4 mg/mg Normal [facility] Comment on above: Performed By: #### B MP #### [facility] [address] [place] [address] [address] Idania Tai Glucose Glucometer (BldC) [M ass/Vol]Ordered By: Sav Andrews on 12-22-2021 Glucose [Mass/Vol] 113 mg/dL [facility] Comment on above: Random Glucose Refer ence Range is dependent on time and content of last meal. Glucose of more than 200 mg/dL in a nonstressed, ambulatory subject supports the diagnosis of Diabetes Mellitus. Glucose Poct Glucometerson 0 12-22-2021 Glucose [Mass/Vol] 113 mg/dL Normal [facility] Comment on above: Result Comment: [place] Glucose Reference Range is dependent on time and content of last meal. Glucose of more than 200 mg/dL in a nonstressed, ambulatory subject supports the diagnosis of Diabetes Mellitus. PERFORMED BY: [facility] [address] [place] [address] PATHOLOGIST CATCHER PLUG TEOFILO KHAN M.D. Performed By: #### G LULS #### Point of Care testing , COVID-19 [...] developed and its performance characteristic determined by [employer] and validated at [facility]. This test has not been FDA cleared [...] for SARS Antigen by SIN PERFORMED BY: [facility] [address] [place] [address] PATHOLOGIST CATCHER PLUG TEOFILO KHAN M.D. Normal [facility] Comment on above: Performed By: #### C OVID-19 MAYRA, SOFIANEG #### [address] COVID-19 SOFIAOrdered By: Bebe Andrews on 12-20-2021 SARS-CoV+SARS-CoV-2 (COVID-19) Ag IA.rapid Ql (Resp) Negative Negative [facility] Comment on above: This is a duplicate Mayra SARS Antigen (SIN) result to be used for statistical tracking purpose only. No Panel InformationOrdered By: Sav Andrews on 12-20-2021 SARS Antigen (LFIA) [facility] Mayra Ag Negativeon 12-21-19 22 Mayra Ag Negative Negative Normal Negative [facility] Comment on above: Result Comment: This is a duplicate Mayra SARS Antigen (SIN) result to be used for statistical tracking purpose only. PERFORMED BY: [place] [address] PATHOLOGIST CATCHER PLUG TEOFILO KHAN M.D. Performed By: #### C OVID-19 MAYRA, SOFIANEG #### [address] ANKLE RT WO CONon 022 [...] severe tricompartmental osteoarthropathy of the knee with yvhv-qx-usyd articulation of the lateral compartment. SOFT TISSUES: Negative. No visible soft tissue swelling. EFFUSION: None visible. OTHER: Negative. IMPRESSION: Progression of subchondral degenerative cystic changes of the tibial plafond and calcaneus Moderate to severe knee osteoarthritis with jmbn-ez-xroc articulation of the lateral compartment Electronically authenticated by: GERA BLUM Date: 2021-11-14 16:32 Normal [facility] CBC AUTO DIFFon 09-11-2021 BASO # 0.1 103/ul Normal 0.0-0.1 [facility] Comment on above: Performed By: #### C BC ####[facility] [address] [place], [place] [address]Dr. Idania Tai Basophils/100 WBC (Bld) 0.8 % Normal 0.2-2.0 [facility] Comment on above: Performed By: #### C BC ####[facility] [address] [place], [place] [address]Dr. Idania Tai EO # 0.2 103/ul Normal 0.0-0.7 [facility] Comment on above: Performed By: #### C BC ####[facility] [address] [place], [place] [address]Dr. Idania Tai Eosinophils/100 WBC (Bld) 2.2 % Normal 0.9-7.0 [facility] Comment on above: Performed By: #### C BC ####[facility] [address] [place], [place] [address]Dr. Idania Tai Erythrocyte distribution width (RBC) [Ratio] 13.1 % Normal 11.0-15.0 [facility] Comment on above: Performed By: #### C BC ####[facility] [address] [place], [place] [address]Dr. Idania Tai Hematocrit (Bld) [Volume fraction] 44.5 % Normal 42.0-54.0 [facility] Comment on above: Performed By: #### C BC ####[facility] [address] [place], [place] [address]Dr. Idania Tai Hemoglobin (Bld) [Mass/Vol] 14.9 g/dL Normal 14.0-18.0 [facility] Comment on above: Performed By: #### C BC ####[facility] [address] [place] [address]Dr. Earnestinegisselle Zaire IG # 0.13 10e3/ul Critically high 0.00-0.03 [facility] Comment on above: Performed By: #### C BC ####[facility] [address] [place] [address]Dr[address] Idania Tai IG % 1.5 % Critically high 0.0-0.5 [facility] Comment on above: Performed By: #### C BC ####[facility] [address] [place] [address]Dr[address] Idania Tai LYMPH # 2.4 103/ul Normal 1.2-3.8 [facility] Comment on above: Performed By: #### C BC ####[facility] [address] [place] [address]Dr. Idania Tai Lymphocytes/100 WBC (Bld) 27.7 % Normal 20.5-60.0 [facility] Comment on above: Performed By: #### C BC ####[facility] [address] [place] [address]DrAlly Tai MANUAL DIFF REQ NO Normal [facility] Comment on above: Performed By: #### C BC ####[facility] [address] [place] [address]Dr. Idania Tai MCH (RBC) [Entitic mass] 28.9 pg Normal 25.9-34.0 [facility] Comment on above: Performed By: #### C BC ####[facility] [address] [place] [address]Dr. Idania Tai MCHC (RBC) [Mass/Vol] 33.5 g/dL Normal 29.9-35.2 [facility] Comment on above: Performed By: #### C BC ####[facility] [address] [place] [address]Dr[address] Idania Tai MCV (RBC) [Entitic vol] 86.4 fL Normal 80.0-94.0 [facility] Comment on above: Performed By: #### C BC ####[facility] [address] [place] [address]Dr. Idania Tai MONO # 0.6 103/ul Normal 0.3-0.8 [facility] Comment on above: Performed By: #### C BC ####[facility] [address] [place] [address]Dr. Idania Tai Monocytes/100 WBC (Bld) 6.4 % Normal 1.7-12.0 [facility] Comment on above: Performed By: #### C BC ####[facility] [address] [place] [address]Dr. Idania Tai NEUT # 5.3 103/ul Normal 1.4-6.5 [facility] Comment on above: Performed By: #### C BC ####[facility] [address] [place] [address]Dr. Idania Tai Neutrophils/100 WBC (Bld) 61.4 % Normal 43.0-75.0 [facility] Comment on above: Performed By: #### C BC ####[facility] [address] [address]Dr. Idania Tai Platelet mean volume (Bld) [Entitic vol] 9.7 fL Normal 9.5-13.5 [facility] [facility] Comment on above: Performed By: #### C BC ####[facility] [address] [id number]. Idania Tai PLT 219 103/ul Normal 150-450 [facility] Comment on above: Performed By: #### C BC ####[facility] [address] [id number]. Idania Tai RBC 5.15 106/ul Normal 4.70-6.10 [facility] Comment on above: Performed By: #### C BC ####[facility] [address] [id number]. Idania Tai WBC 8.6 103/ul Normal 4.0-11.0 [facility] Comment on above: Performed By: #### C BC ####[facility] [address] [id number]. Idania Tai GLYCOHEMOGLOBIN A1Con 2021 ADA RECOMMENDATION ADA THERAPEUTIC TARGET 6.0 - 7.0 ACTION SUGGESTED > 7.0 Normal [facility] Comment on above: Performed By: #### A 1C ####[facility] [address] [id number]. Idania Tai Glucose [Mass/Vol] 128 mg/dL Normal [facility] Comment on above: Performed By: #### A 1C ####[facility] [address] [place] [id number]. Idania Tai HbA1c (Bld) [Mass fraction] 6.1 % Critically high <=6.0 [facility] Comment on above: Performed By: #### A 1C ####[facility] [address] [address]Dr. Idania Tai LIPID PROFILEon 09-11-2021 CHOL-HDL RATIO NORM SEE BELOW Normal [facility] Comment on above: Result Comment: 3.3 - 4.4 LOW RISK 4.4 - 7.1 AVERAGE RISK 7.1 - 11.0 MODERATE RISK >11.0 HIGH RISK Performed By: #### L IPID, CMP #### [facility] [address] [address] [address] Idania Tai Cholesterol [Mass/Vol] 175 mg/dL Normal <=200 [facility] Comment on above: Performed By: #### L IPID, CMP #### [facility] [address] [address] [address] Idania Tai Cholesterol in HDL [Mass/Vol] 54 mg/dL Normal 40-60 [facility] Comment on above: Performed By: #### L IPID, CMP #### [facility] [address] [address] [address] Idania Tai Cholesterol in LDL [Mass/Vol] 87.2 mg/dL Normal [facility] Comment on above: Performed By: #### L IPID, CMP #### [facility] [address] [address] [address] Idania Tai Cholesterol.total/Choles terol in HDL [Mass ratio] 3.2 {ratio} Normal [facility] Comment on above: Performed By: #### L IPID, CMP #### [facility] [address] [address] [address] Idania Tai HDL NORMAL > or = 60 mg/dl - LOW CARDIOVASCULAR RISK <40 mg/dl - HIGH CARDIOVASCULAR RISK Normal [facility] Comment on above: Performed By: #### L IPID, CMP #### [facility] [address] [address] [address] Idania Tai LDL CALC NORMAL SEE BELOW Normal [facility] Comment on above: Result Comment: <100 mg/dl OPTIMAL 100 - 129 mg/dl NEAR OR ABOVE OPTIMAL 130 - 159 mg/dl BORDERLINE HIGH 160 - 189 mg/dl HIGH >190 mg/dl VERY HIGH Performed By: #### L IPID, CMP #### [facility] [address] [place] [address] Dr. Idania Tai Triglyceride [Mass/Vol] 169 mg/dL Critically high <=150 [facility] Comment on above: Performed By: #### L IPID, CMP #### [facility] [address] [address] [address] Idania Tai VLDL CALC 33.8 mg/dL Normal [facility] Comment on above: Performed By: #### L IPID, CMP #### [facility] [address] [place] [address] Dr. Idania Tai MICROALBUMIN, RAND URon 04- mALB 1.9 mg/L Normal <=30.0 [facility] Comment on above: Performed By: #### M ALBR #### [facility] [address] [address] [address] Idania Tai PROF 14(COMP METB)on 022 Albumin [Mass/Vol] 3.7 g/dL Normal 3.4-5.0 [facility] Comment on above: Performed By: #### L IPID, CMP #### [facility] [address] [place] [address] Dr. Idania Tai Albumin/Globulin [Mass ratio] 0.9 {ratio} Normal [facility] Comment on above: Performed By: #### L IPID, CMP #### [facility] [address] [address] [address] Idania Tai ALP [Catalytic activity/Vol] 73 U/L Normal 46-116 [facility] Comment on above: Performed By: #### L IPID, CMP #### [facility] [address] [address] [address] Idania Tai ALT [Catalytic activity/Vol] 68 U/L Critically high 16-63 [facility] Comment on above: Performed By: #### L IPID, CMP #### [facility] [address] [place] [address] Dr. Idania Tai Anion gap [Moles/Vol] 10.2 mmol/L Normal [facility] Comment on above: Performed By: #### L IPID, CMP #### [facility] [address] [address] [address] Idania Tai AST [Catalytic activity/Vol] 30 U/L Normal 15-37 [facility] Comment on above: Performed By: #### L IPID, CMP #### [facility] [address] [place] [address] Dr. Idania Tai Bilirubin [Mass/Vol] 1.0 mg/dL Normal 0.2-1.3 [facility] Comment on above: Performed By: #### L IPID, CMP #### [facility] [address] [address] [address] Idania Tai Calcium [Mass/Vol] 8.5 mg/dL Normal 8.5-10.1 [facility] Comment on above: Performed By: #### L IPID, CMP #### [facility] [address] [place] [address] Dr. Idania Tai Chloride [Moles/Vol] 101 mmol/L Normal 98-107 [facility] Comment on above: Performed By: #### L IPID, CMP #### [facility] [address] [place] [address] Dr. Idania Tai CO2 [Moles/Vol] 31.6 mmol/L Critically high 22.0-30.0 [facility] Comment on above: Performed By: #### L IPID, CMP #### [facility] [address] [address] [address] Idania Tai Creatinine [Mass/Vol] 0.67 mg/dL Normal 0.66-1.25 [facility] Comment on above: Performed By: #### L IPID, CMP #### [facility] [address] [address] [address] Idania Tai EGFR-AF ANDORRAN >60 Normal >=60 [facility] Comment on above: Performed By: #### L IPID, CMP #### [facility] [address] [place] [address] Dr. Idania Tai EGFR-NON AF ANDORRAN >60 Normal >=60 [facility] Comment on above: Performed By: #### L IPID, CMP #### [facility] [address] [address] [address] Idania Tai Globulin (S) [Mass/Vol] 4.0 g/dL Normal [facility] Comment on above: Performed By: #### L IPID, CMP #### [facility] [address] [place] [address] Dr. Idania Tai Glucose [Mass/Vol] 114 mg/dL Critically high 74-106 [facility] Comment on above: Performed By: #### L IPID, CMP #### [facility] [address] [address] [address] Idania Tai Potassium [Moles/Vol] 4.8 mmol/L Normal 3.4-5.0 [facility] Comment on above: Performed By: #### L IPID, CMP #### [facility] [address] [place] [address] Dr. Idania Tai Protein [Mass/Vol] 7.7 g/dL Normal 6.1-8.2 [facility] Comment on above: Performed By: #### L IPID, CMP #### [facility] [address] [place] [address] Dr. Idania Tai Sodium [Moles/Vol] 138 mmol/L Normal 137-145 [facility] Comment on above: Performed By: #### L IPID, CMP #### [facility] [address] [place] [address] Dr. Idania Tai Urea nitrogen [Mass/Vol] 12.0 mg/dL Normal 7.0-18.0 [facility] Comment on above: Performed By: #### L IPID, CMP #### [facility] [address] [address] [address] Idania Tai Urea nitrogen/Creatinine [Mass ratio] 17.9 mg/mg Normal [facility] Comment on above: Performed By: #### L IPID, CMP #### [facility] [address] [place] [address] Dr. Idania Tai Vital Signs Date Time Vital Sign Value Performing Clinician Facility 04-27-2024 15:05-0500 Body height 167.6 cm Marquis Vailtrick MANAGER STRATEGY [employer] ACCOUNT Work Phone: [facility] 04-27-2024 15:05-0500 Body mass index (BMI) [Ratio] 38.41 kg/m2 Marquis Velasquez MANAGER STRATEGY & ACCOUNT Work Phone: [facility] 04-27-2024 15:05-0500 Body weight 107.96 kg Marquis Vailtrick MANAGER STRATEGY & ACCOUNT Work Phone: [facility] 04-27-2024 15:05-0500 Diastolic blood pressure 90 mm[Hg] Marquis Vazquezpatrick MANAGER STRATEGY & ACCOUNT Work Phone: [facility] 04-27-2024 15:05-0500 Heart rate 67 /min Marquis Velasquez MANAGER STRATEGY & ACCOUNT Work Phone: [facility] 04-27-2024 15:05-0500 Respiratory rate 14 /min Marquis Vazquezpatrick MANAGER STRATEGY & ACCOUNT Work Phone: [facility] 04-27-2024 15:05-0500 SaO2% (BldA) [Mass fraction] 98 % Marquis Velasquez MANAGER STRATEGY & ACCOUNT Work Phone: [facility] 04-27-2024 15:05-0500 Systolic blood pressure 138 mm[Hg] Marquis Velasquez MANAGER STRATEGY & ACCOUNT Work Phone: [facility] 02-24-2024 15:32-0400 Body height 167.6 cm Abisai Boateng DPM Work Phone: [facility] 02-24-2024 15:32-0400 Body mass index (BMI) [Ratio] 39.22 kg/m2 Abisai Boateng DPM Work Phone: [facility] 02-24-2024 15:32-0400 Body weight 110.22 kg Abisai Boateng DPM Work Phone: [facility] 01-22-2024 15:57-0400 Body height 167.6 cm Marquis Velasquez MANAGER STRATEGY & ACCOUNT Work Phone: [facility] 01-22-2024 15:57-0400 Body mass index (BMI) [Ratio] 39.22 kg/m2 Marquis Velasquez MANAGER STRATEGY & ACCOUNT Work Phone: [facility] 01-22-2024 15:57-0400 Body temperature 98.29 [degF] Marquis Velasquez MANAGER STRATEGY & ACCOUNT Work Phone: [facility] 01-22-2024 15:57-0400 Body weight 110.22 kg Marquis Velasquez MANAGER STRATEGY & ACCOUNT Work Phone: [facility] 01-22-2024 15:57-0400 Diastolic blood pressure 78 mm[Hg] Marquis Velasquez MANAGER STRATEGY & ACCOUNT Work Phone: [facility] 01-22-2024 15:57-0400 Heart rate 61 /min Marquis Velasquez MANAGER STRATEGY & ACCOUNT Work Phone: [facility] Comment on above: 98% O2 01-22-2024 15:57-0400 Systolic blood pressure 112 mm[Hg] Marquis Velasquez MANAGER STRATEGY & ACCOUNT Work Phone: [facility] 09-10-2022 13:15-0400 Diastolic blood pressure 64 mm[Hg] MD Shaikh Baker Work Phone: [facility] 09-10-2022 13:15-0400 Heart rate 54 /min MD Shaikh Baker Work Phone: [facility] 09-10-2022 13:15-0400 Respiratory rate 16 /min MD Shaikh Baker Work Phone: [facility] 09-10-2022 13:15-0400 SaO2% (BldA) [Mass fraction] 97 % MD Shaikh Baker Work Phone: [facility] 09-10-2022 13:15-0400 Systolic blood pressure 100 mm[Hg] MD Shaikh Baker Work Phone: [facility] 09-10-2022 12:25-0400 Body temperature 97.5 [degF] MD Shaikh Baker Work Phone: [facility] 09-10-2022 11:55-0400 Inhaled oxygen flow rate 8 L/min MD Shaikh Baker Work Phone: [facility] 09-10-2022 10:54-0400 Body height 165.1 cm MD Shaikh Baker Work Phone: [facility] 09-10-2022 10:54-0400 Body mass index (BMI) [Ratio] 38.6 kg/m2 MD Shaikh Baker Work Phone: [facility] 09-10-2022 10:54-0400 Body weight 105.4 kg MD Shaikh Baker Work Phone: [facility] 12-22-2021 10:00-0400 Diastolic blood pressure 87 mm[Hg] MD Sav Andrews Work Phone: [facility] 12-22-2021 10:00-0400 Heart rate 54 /min MD Sav Andrews Work Phone: [facility] 12-22-2021 10:00-0400 Respiratory rate 18 /min MD Sav Andrews Work Phone: [facility] 12-22-2021 10:00-0400 SaO2% (BldA) [Mass fraction] 100 % MD Sav Andrews Work Phone: [facility] 12-22-2021 10:00-0400 Systolic blood pressure 139 mm[Hg] MD Sav Andrews Work Phone: [facility] 12-22-2021 07:37-0400 Body height 170.18 cm MD Sav Andrews Work Phone: [facility] 12-22-2021 07:37-0400 Body temperature 97.9 [degF] MD Sav Andrews Work Phone: [facility] 12-22-2021 07:37-0400 Body weight 81.64 kg MD Sav Andrews Work Phone: [facility] Encounters Encounter Date Encounter Type Care Provider Facility Start: 06-13-2024 End: 06-16-2024 Refill Marquis Velasquez MANAGER STRATEGY & ACCOUNT Work Phone: [facility] Comment on above: Severe persistent as thma without complication (CMS/HCC) Start: 05-06-2024 End: 05-06-2024 Refill Cassie Stroud MA [facility] Comment on above: Type 2 diabetes addy itus with diabetic polyneuropathy, with long-term current use of insulin (CMS/HCC) (Primary Dx) Start: 04-27-2024 End: 04-27-2024 Office outpatient visit 15 minutes Marquis Velasquez MANAGER STRATEGY & ACCOUNT Work Phone: [facility] Comment on above: Type 2 diabetes addy itus with diabetic polyneuropathy, with long-term current use of insulin (CMS/HCC) (Primary Dx); Resistant hypertension ([facility] Gastroesophageal reflux disease without esophagitis Start: 04-27-2024 End: 04-27-2024 ambulatory MARQUIS VELASQUEZ Not Available Start: 04-27-2024 End: 04-27-2024 Bamboo flowsheet Marquis Velasquez MANAGER STRATEGY & ACCOUNT Work Phone: [facility] Start: 04-27-2024 End: 04-27-2024 Bamboo flowsheet Marquis Velasquez MANAGER STRATEGY & ACCOUNT Work Phone: [facility] Start: 03-18-2024 End: 03-19-2024 Refill Marquis Knoxzpatrick MANAGER STRATEGY & ACCOUNT Work Phone: [facility] Comment on above: Type 2 diabetes addy itus without complication, with long-term current use of insulin ([facility]) Start: 02-24-2024 End: 02-24-2024 Office outpatient new 30 minutes Abisai Boateng DPM Work Phone: [facility] Comment on above: Onychodystrophy (Lizbeth hilda Dx); Type 2 diabetes mellitus with diabetic polyneuropathy, with long-term current use of insulin ([facility]); Onychomycosis Start: 02-24-2024 End: 02-24-2024 ambulatory ABISAI BOATENG Not Available Start: 02-24-2024 End: 02-24-2024 Bamboo flowsheet Abisai Boateng DPM Work Phone: [facility] Start: 02-24-2024 End: 02-24-2024 Bamboo flowsheet Abisai Boateng DPM Work Phone: [facility] Start: 01-25-2024 End: 01-25-2024 Clinisync Result Encounter Shaikh Samuel GUPTA Work Phone: [facility] External Department Unsolicited Start: 01-25-2024 End: 01-25-2024 Clinisync Result Encounter Shaikh Samuel GUPAT Work Phone: [facility] External Department Unsolicited Start: 01-22-2024 End: 01-22-2024 Office outpatient visit 25 minutes Marquis Velasquez MANAGER STRATEGY & ACCOUNT Work Phone: [facility] Comment on above: Type 2 diabetes addy itus with diabetic polyneuropathy, with long-term current use of insulin ([facility]/H[facility]) (Primary Dx); Severe persistent asthma without complication ([facility]); Resistant hypertension ([facility]); Gastroesophageal reflux disease without esophagitis; Mixed hyperlipidemia ([facility]); Type 2 diabetes mellitus without complication, with long-term current use of insulin ([facility]); Primary hypertension ([facility]); Hyperlipidemia, unspecified hyperlipidemia type ([facility]) Start: 01-22-2024 End: 01-22-2024 ambulatory MARQUIS VELASQUEZ Not Available Start: 01-22-2024 End: 01-22-2024 Bamboo flowsheet Marquis Velasquez MANAGER STRATEGY & ACCOUNT Work Phone: [facility] Start: 01-22-2024 End: 01-22-2024 Bamboo flowsheet Marquis Velasquez MANAGER STRATEGY & ACCOUNT Work Phone: [facility] Start: 10-24-2023 End: 10-24-2023 ambulatory SHAIKH SAMUEL Not Available Start: 09-16-2023 End: 09-16-2023 ambulatory SHAIKH SAMUEL Not Available Start: 08-07-2023 End: 08-07-2023 ambulatory SHAIKH SAMUEL Not Available Start: 09-10-2022 End: 09-10-2022 ambulatory Silver Briceño Facility:[facility] Start: 09-10-2022 End: 09-10-2022 Admission to same day surgery center MD Shaikh Baker Work Phone: [facility] [place] Start: 09-10-2022 End: 09-10-2022 ambulatory MD Shaikh Baker Work Phone: [facility] Work Phone: Start: 08-30-2022 End: 08-30-2022 ambulatory Silver Briceño Facility:[facility] Start: 08-30-2022 End: 08-30-2022 ambulatory MD Shaikh Baker Work Phone: [facility] Work Phone: Start: 08-30-2022 End: 08-30-2022 Patient encounter procedure MD Shaikh Baker Work Phone: [facility] Work Phone: Start: 07-07-2022 End: 07-08-2022 ambulatory SHAIKH Adan BAKER Facility:[facility] Start: 03-13-2022 End: 03-14-2022 ambulatory SHAIKH Adan BAKER Facility:[facility] Start: 12-22-2021 End: 12-22-2021 ambulatory Sav Andrews Facility:[facility] Start: 12-22-2021 End: 12-22-2021 Admission to same day surgery center MD Sav Andrews Work Phone: [facility] Start: 12-20-2021 End: 12-20-2021 ambulatory Sav Andrews Facility:[facility] Start: 12-20-2021 End: 12-20-2021 Patient encounter procedure MD Sav Andrews Work Phone: [facility] Start: 11-14-2021 End: 11-15-2021 ambulatory REY PEREZ Facility:[facility] Start: 10-25-2021 End: 10-26-2021 ambulatory REY PEREZ Facility:[facility] Start: 09-11-2021 End: 09-12-2021 ambulatory SHAIKH Adan BAKER Facility:[facility] Start: 09-05-2021 End: 09-06-2021 ambulatory LIZETH MARTIN Facility:[facility] Start: 08-03-2021 End: 08-03-[address] ASA AL Facility:[facility] Procedures Date Procedure Procedure Detail Performing Clinician Start: 01-25-2024 ALL LIPID PROFILE (FASTING) Shaikh Samuel GUPTA Work Phone: Start: 01-25-2024 [facility] CMP (CMP) (FOR [facility] USE) Shaikh Samuel GUPTA Work Phone: Start: 09-10-2022 Hemorrhoidectomy MD Beltran Baker Work Phone: Start: 01-26-2022 Colonoscopy Marquis hurley NP Work Phone: Start: 12-22-2021 Screening colonoscopy Ev Andrews Work Phone: SARS Antigen ([facility]) [employer] Work Phone: Plan of Treatment Date Care Activity Detail Author Start: 01-27-2032 Screening for malign ant neoplasm of colon [facility] Start: 08-29-2025 Glaucoma screening Diabetes: R etinopathy Screening [facility] Start: 08-29-2024 Glaucoma screening Diabetes: R etinopathy Screening [facility] Start: 08-24-2024 End: 08-24-2024 Patient encounter procedure 08/24/2024 3:30 PM EDT Procedure Visit [facility] [address] [place] [phone] Abisai Boateng, DPM [address] [place] [address] [facility] Start: 08-07-2024 Urine screening for protein Diabetes: Urine Protein Screening [facility] Start: 07-28-2024 End: 07-28-2024 Patient encounter procedure 07/28/2024 4:00 PM EST Office Visit [facility] [address] [place] [phone] Marquis Velasquez, MARIA FERNANDA [address] [place] [phone] [facility] Start: 07-26-2024 End: 04-27-2025 CBC W Auto Differential panel - Blood CBC and differential Lab Routine Type 2 diabetes mellitus with diabetic polyneuropathy, with long-term current use of insulin (CMS/HCC) Resistant hypertension (CMS/HCC) Expected: 07/26/2024 (Approximate), Expires: 04/27/2025 [facility] Comment on above: Expected: 07/26/2024 (Approximate), Expires: 04/27/2025 Start: 07-26-2024 End: 04-27-2025 Comprehensive metabolic 2000 panel - Serum or Plasma Comprehensive metabolic panel Lab Routine Type 2 diabetes mellitus with diabetic polyneuropathy, with long-term current use of insulin (CMS/HCC) Resistant hypertension (CMS/HCC) Expected: 07/26/2024 (Approximate), Expires: 04/27/2025 [facility] Comment on above: Expected: 07/26/2024 (Approximate), Expires: 04/27/2025 Start: 07-26-2024 End: 04-27-2025 Hemoglobin A1c/Hemoglobin.total in Blood Hemoglobin A1c Lab Routine Type 2 diabetes mellitus with diabetic polyneuropathy, with long-term current use of insulin (CMS/HCC) Resistant hypertension (CMS/HCC) Expected: 07/26/2024 (Approximate), Expires: 04/27/2025 [facility] Comment on above: Expected: 07/26/2024 (Approximate), Expires: 04/27/2025 Start: 07-26-2024 End: 04-27-2025 Microalbumin/Creatinine panel in random Urine Microalbumin / creatinine urine ratio Lab Routine Type 2 diabetes mellitus with diabetic polyneuropathy, with long-term current use of insulin (CMS/HCC) Resistant hypertension (CMS/HCC) Expected: 07/26/2024 (Approximate), Expires: 04/27/2025 [facility] Work Phone: Comment on above: Expected: 07/26/2024 (Approximate), Expires: 04/27/2025 Start: 04-27-2024 End: 04-27-2024 Patient encounter procedure SELENA VALADEZ Comment on above: Arrived Start: 04-22-2024 End: 04-22-2024 Patient encounter procedure 04/22/2024 3:30 PM EST Office Visit SELENA VALADEZ [address] [phone] Marquis Velasquez, MARIA FERNANDA [address] [place] [phone] [facility] Start: 02-24-2024 End: 02-24-2024 Patient encounter procedure 02/24/2024 3:30 PM EDT Office Visit [facility] [address] [place] [phone] Abisai Boateng, DPM [address] [place], [place] [phone] Type 2 diabetes mellitus with diabetic polyneuropathy, with long-term current use of insulin (CMS/HCC) [facility] Comment on above: Type 2 diabetes addy itus with diabetic polyneuropathy, with long-term current use of insulin (CMS/HCC) Start: 01-26-2024 Influenza vaccination Influenza Vacc ine (#1) [facility] Start: 01-22-2024 End: 01-22-2024 Patient encounter procedure 01/22/2024 4:00 PM EDT Office Visit [facility] [address] [place] [phone] Marquis Velasquez, MARIA FERNANDA [address] [place] [phone] Type 2 diabetes mellitus with diabetic polyneuropathy, with long-term current use of insulin (CMS/HCC) (Primary Dx); Severe persistent asthma without complication (CMS/HCC); Resistant hypertension (CMS/HCC); Gastroesophageal reflux disease without esophagitis; Mixed hyperlipidemia (CMS/HCC) [facility] Comment on above: Type 2 diabetes addy itus with diabetic polyneuropathy, with long-term current use of insulin (CMS/HCC) (Primary Dx); Severe persistent asthma without complication (CMS/HCC); Resistant hypertension (CMS/HCC); Gastroesophageal reflux disease without esophagitis; Mixed hyperlipidemia (CMS/HCC) Start: 11-08-2023 Hemoglobin A1c measurement Diabetes: Hemoglobin A1C [facility] Start: 09-10-2022 End: 09-10-2022 [facility] Start: 12-22-2021 [facility] Work Phone: Start: 1965 Screening for malign ant neoplasm of colon [facility] Patient Education Hemorrhoids [facility] Work Phone: Immunizations Immunization Date Immunization Notes Care Provider Fa cili 03-23-2022 tetanus toxoid, reduced diphtheria toxoid, and acellular pertussis vaccine, adsorbed Marquis Velasquez MANAGER STRATEGY & ACCOUNT Work Phone: [facility] 03-23-2022 zoster vaccine recombinant Marquis Velasquez MANAGER STRATEGY & ACCOUNT Work Phone: [facility] 05-10-2021 Influenza, injectabl e, Madin Carrie Canine Kidney, preservative free, quadrivalent Marquis Velasquez MANAGER STRATEGY & ACCOUNT Work Phone: [facility] 05-10-2021 influenza virus vaccine, unspecified formulation Marquis Velasquez MANAGER STRATEGY & ACCOUNT Work Phone: [facility] 10-10-2020 COVID-19 mRNA Comirnatjoey (Pfizer) MD Sav Andrews Work Phone: [facility] 09-19-2020 COVID-19 mRNA Comirnatjoey (Pfizer) MD Sav Andrews Work Phone: [facility] 02-17-2020 Influenza, injectabl e, Madin Carrie Canine Kidney, preservative free, quadrivalent Marquis Velasquez MANAGER STRATEGY & ACCOUNT Work Phone: [facility] 03-09-2019 influenza, seasonal, injectable Marquis Velasquez MANAGER STRATEGY & ACCOUNT Work Phone: [facility] 03-12-2017 influenza, injectabl e, quadrivalent, preservative free Marquis Velasquez MANAGER STRATEGY & ACCOUNT Work Phone: [facility] Payers Date Payer Category Payer Blue [employer] Blue [employer] BCBS [id number] 2022 Unknown BCBS BCBS [id number] 2022-Present [phone] [address] [place] [address] [id number] 2021 Self-pay [id number] 1966 Unknown [id number] 2.16.840.1.943873.3.579. 2.59 1966 Unknown [id number] 2.16.840.1.571830.3.579. 2.59 1966 Unknown [id number] 2.16.840.1.453422.3.579. 2.59 1966 Unknown [id number] 2.16.840.1.735073.3.579. 2.59 1966 Unknown [id number] 2.16.840.1.908072.3.579. 2.59 1966 Unknown [id number] 2.16.840.1.083124.3.579. 2.59 1966 Unknown [id number] 2.16.840.1.523594.3.579. 2.593 1966 Unknown [id number] 2.16.840.1.029952.3.579. 2.1259 1966 Unknown [id number] 2.16.840.1.288142.3.579. 2.9 1966 Unknown [id number] 2.16.840.1.916431.3.579. 2.1258 1966 Unknown [id number] 2.16.840.1.929950.3.579. 2.1258 1966 Unknown [id number] 2.16.840.1.084818.3.579. 2.1258 1966 Unknown [id number] 2.16.840.1.979237.3.579. 2.1259 1959 Unknown [id number] Unknown [id number] 2.16.840.1.728702.3.579. 2.531 Unknown [id number] 2.16.840.1.212896.3.579. 2.531 Unknown [id number] 2.16.840.1.075826.3.579. 2.531 Unknown [id number] 2.16.840.1.138963.3.579. 2.531 Social History Date Type Detail Facility Start: 12-22-2021 End: 08-07-2023 Tobacco smoking status ALIS Ex-smoker (finding) [facility] Start: 1965 Sex Assigned At Male [facility] History of tobacco use Current smoker [facility] History of tobacco use Cigarette Smoker [facility] History of tobacco use Passive smoker [facility] Start: 08-07-2023 Tobacco use and exposure Smoke less tobacco non-user [facility] Start: 01-22-2024 End: 02-24-2024 Alcoholic beverage intake Lifetime non-drinker (finding) [facility] Start: 01-21-2024 End: 01-22-2024 History of Social function [facility] Start: 01-21-2024 End: 01-22-2024 [id number] Health Literacy [facility] How often do you nee d to have someone help you when you read instructions, pamphlets, or other written material from your doctor or pharmacy [SILS] Sometimes [facility] Do you belong to any clubs or organizations such as taoist groups, unions, fraternal or athletic groups, or school groups? Yes [facility] How often to you hav e a drink containing alcohol? Never [facility] How hard is it for y ou to pay for the very basics like food, housing, medical care, and heating Not very hard [facility] Do you feel stress - tense, restless, nervous, or anxious, or unable to sleep at night because your mind is troubled all the time - these days [OSQ] Not at all [facility] (I/We) worried wheth er (my/our) food would run out before (I/we) got money to buy more. Never true [facility] In the past 12 month s, was there a time when you were not able to pay the mortgage or rent on time? No [facility] Start: 1965 Sex assigned at Not on file [facility] Medical Equipment Procedure Code Equipment Code Equipment Origin al Text Equipment Identifier Dates Daily [id number] Start: 10-24-2023 End: 10-23-2024 Daily [id number] Start: 04-27-2024 End: 04-27-2025 Goals Date Patient Goal Desired Activity /State Clinical Notes 09-05-2021 to 04-27-2024 Marquis Velasquez, MANAGER STRATEGY & ACCOUNT - 04/27/2024 3:30 PM Radha Velasquez, MANAGER STRATEGY & ACCOUNT - 04/27/2024 3:25 PM Radha Velasquez, MANAGER STRATEGY & ACCOUNT - 04/27/2024 3:25 PM Radha Velasquez, MANAGER STRATEGY & ACCOUNT - 04/27/2024 3:24 PM EST Note Date & Type Note Facility 04-27-2024 History of Present illness Narrative Images from the original note were not included. Subjective Patient ID: Dante Dewey is a 59 y.o. male who presents for Follow-up (Med Refills ). HPI HTN: Currently taking Amlodipine 10mg Carvedilol 25mg Losartan-hydrochlorothiazide 100-25mg Spironlactone 50mg Checks BP at home; Averages are Denies orthostatic changes, dizziness, cough, shortness of breath, swelling in extremities. Continue current regimen DMII: Glipizide 5mg Metformin 850mg Januvia 100mg Semglee 25 units Will decrease to 20 units today Most recent labs: HGB A1C 6.6% today! Average FSBS range from BGs range between 94 and 155 No episode of hypoglycemia No medication adverse effects reported by the patient. Patient educated on lifestyle modifications, dietary restrictions, signs and symptoms of hypoglycemia/hyperglycemia and importance of eating regular consistent meals. Stressed upon importance of checking blood glucose at home and bring blood glucose log to appointments. All questions, concerns answered and addressed. Encouraged to call office if persistent hypoglycemia/hyperglycemia on home glucose monitoring noted. Following with Podiatry- Dr. Mejia States he has been dieting and trying to exercise. States he has stopped eating once he is full and began drinking more water and protein shakes. Review of Systems Constitutional: Negative for activity change, appetite change, chills, diaphoresis, fatigue, fever and unexpected weight change. HENT: Negative for congestion, ear pain, rhinorrhea, sinus pressure, sinus pain, sneezing, sore throat, trouble swallowing and voice change. Eyes: Negative for visual disturbance. Respiratory: Negative for cough, chest tightness, shortness of breath and wheezing. Cardiovascular: Negative for chest pain, palpitations and leg swelling. Gastrointestinal: Negative for abdominal distention, abdominal pain, blood in stool, constipation, diarrhea and vomiting. Genitourinary: Negative for decreased urine volume, dysuria, flank pain, frequency, hematuria and urgency. Musculoskeletal: Negative for arthralgias, gait problem, joint swelling and myalgias. Skin: Negative for rash. Neurological: Negative for dizziness, tremors, syncope, weakness, light-headedness and headaches. Psychiatric/Behavioral: Negative for decreased concentration and suicidal ideas. The patient is not nervous/anxious. Hematological: Does not bruise/bleed easily. Endocrine: Negative for cold intolerance, heat intolerance, polydipsia, polyphagia and polyuria. Objective Physical Exam Vitals reviewed. Constitutional: Appearance: Normal appearance. HENT: Head: Normocephalic and atraumatic. Right Ear: Tympanic membrane normal. Left Ear: Tympanic membrane normal. Nose: Nose normal. Mouth/Throat: Mouth: Mucous membranes are moist. Pharynx: Oropharynx is clear. Eyes: Pupils: Pupils are equal, round, and reactive to light. Cardiovascular: Rate and Rhythm: Normal rate and regular rhythm. Pulses: Normal pulses. Heart sounds: Normal heart sounds. Pulmonary: Effort: Pulmonary effort is normal. Breath sounds: Normal breath sounds. Abdominal: General: Abdomen is flat. Bowel sounds are normal. Palpations: Abdomen is soft. Musculoskeletal: General: Normal range of motion. Cervical back: Normal range of motion. Skin: General: Skin is warm and dry. Capillary Refill: Capillary refill takes less than 2 seconds. Neurological: General: No focal deficit present. Mental Status: He is alert and oriented to person, place, and time. Psychiatric: Mood and Affect: Mood normal. Behavior: Behavior normal. Assessment/Plan Problem List Items Addressed This Visit Resistant hypertension (CMS/HCC) Currently taking Amlodipine 10mg Carvedilol 25mg Losartan-hydrochlorothiazide 100-25mg Spironlactone 50mg Checks BP at home; Averages are Denies orthostatic changes, dizziness, cough, shortness of breath, swelling in extremities. Continue current regimen Relevant Medications spironolactone (Aldactone) 50 MG tablet Other Relevant Orders Microalbumin / creatinine urine ratio Hemoglobin A1c Comprehensive metabolic panel CBC and differential Type 2 diabetes mellitus with diabetic polyneuropathy, with long-term current use of insulin ([facility]) - Primary Glipizide 5mg Metformin 850mg Januvia 100mg Semglee 25 units Will decrease to 20 units today Most recent labs: HGB A1C 6.6% today Average FSBS range from BGs range between 94 and 155 No episode of hypoglycemia No medication adverse effects reported by the patient. Patient educated on lifestyle modifications, dietary restrictions, signs and symptoms of hypoglycemia/hyperglycemia and importance of eating regular consistent meals. Stressed upon importance of checking blood glucose at home and bring blood glucose log to appointments. All questions, concerns answered and addressed. Encouraged to call office if persistent hypoglycemia/hyperglycemia on home glucose monitoring noted. Following with Podiatry- Dr. Mejia Following with Podiatry- Dr. Mejia States he has been dieting and trying to exercise. States he has stopped eating once he is full and began drinking more water and protein shakes. Relevant Medications Continuous Glucose Sensor (FreeStyle Era 2 Plus Sensor) misc insulin glargine-yfgn (Semglee, yfgn,) 100 UNIT/ML injection insulin pen needle (B-D ULTRAFINE III SHORT PEN) 31G X 8 mm misc Other Relevant Orders Microalbumin / creatinine urine ratio Hemoglobin A1c Comprehensive metabolic panel CBC and differential Gastroesophageal reflux disease without esophagitis Relevant Medications omeprazole (PriLOSEC) [address] capsule Associated Problem(s): Resistant hypertension (CMS/HCC) Currently taking Amlodipine 10mg Carvedilol 25mg Losartan-hydrochlorothiazide 100-25mg Spironlactone 50mg Checks BP at home; Averages are Denies orthostatic changes, dizziness, cough, shortness of breath, swelling in extremities. Continue current regimen Associated Problem(s): Type 2 diabetes mellitus with diabetic polyneuropathy, with long-term current use of insulin (CMS/HCC) Glipizide 5mg Metformin 850mg Januvia 100mg Semglee 25 units Will decrease to 20 units today Most recent labs: HGB A1C 6.6% today Average FSBS range from BGs range between 94 and 155 No episode of hypoglycemia No medication adverse effects reported by the patient. Patient educated on lifestyle modifications, dietary restrictions, signs and symptoms of hypoglycemia/hyperglycemia and importance of eating regular consistent meals. Stressed upon importance of checking blood glucose at home and bring blood glucose log to appointments. All questions, concerns answered and addressed. Encouraged to call office if persistent hypoglycemia/hyperglycemia on home glucose monitoring noted. Following with Podiatry- Dr. Mejia Following with Podiatry- Dr. Mejia States he has been dieting and trying to exercise. States he has stopped eating once he is full and began drinking more water and protein shakes. Associated Problem(s): Hyperlipidemia (CMS/HCC) Atorvastatin 40mg Denies myalgias Continue current regimen. documented in this encounter [facility] 04-27-2024 Instructions Marquis Velasquez NP - 04/27/2024 3:30 PM EST Keep up the good work! Call if you need anything!!! documented in this encounter [facility] 02-24-2024 History of Present illness Narrative Images from the original note were not included. Subjective Patient ID: Dante Dewey is a 59 y.o. male who presents for DM Foot Care (Dante Dewey 59yo male, New Patient presents with referral from Marquis Velasquez 01/22/2024 for diabetic nail care and polyneuropathy.Patient relates his nails are thick and difficult to trim. BS 01/22/2024 A1C SS 9.5). HPI This is a new patient who was referred to me for diabetic foot evaluation. Patient denies history of ulceration, amputation. Denies significant numbness to his feet. He does have a history of right ankle surgery with Dr. Perez. Review of Systems Constitutional: Negative for activity change and appetite change. Respiratory: Negative for chest tightness and shortness of breath. Cardiovascular: Negative for chest pain. Musculoskeletal: Positive for arthralgias and gait problem. Skin: Negative for color change and wound. Neurological: Negative for weakness and numbness. Psychiatric/Behavioral: Negative for agitation and behavioral problems. Hematological: Does not bruise/bleed easily. Endocrine: Negative for cold intolerance and heat intolerance. Allergic/Immunologic: Negative for immunocompromised state. Past medical History Past Medical History: Diagnosis Date AYESHA (acute kidney injury) (CMS/HCC) Arthritis of ankle, right Asthma (CMS/HCC) Avascular necrosis of talus, right (CMS/HCC) Dietrich cyst, right Enlarged and hypertrophic nails Eosinophilia Equinus contracture of right ankle Gastroesophageal reflux disease Hemorrhoids Hyperlipemia, mixed (CMS/HCC) Hypertension (CMS/HCC) Onychomycosis of toenail Osteoarthritis of both knees, unspecified osteoarthritis type Osteochondral defect of talus Pain, foot, right, chronic Peroneal tendinitis, right Right ankle pain Right leg swelling Severe persistent asthma ([facility]) Skin tags, multiple acquired Sprain of right ankle, sequela T2DM (type 2 diabetes mellitus) ([facility]) Medications Current Outpatient Medications: albuterol HFA 90 mcg/act inhaler, Inhale 2 puffs every 4 (four) hours if needed for shortness of breath, Disp: 18 g, Rfl: 0 amLODIPine (Norvasc) 10 MG tablet, Take 1 tablet (10 mg) by mouth Daily, Disp: 90 tablet, Rfl: 1 aspirin 81 MG chewable tablet, Chew 1 tablet (81 mg) in the morning., Disp: 30 tablet, Rfl: 2 atorvastatin (Lipitor) 40 MG tablet, Take 1 tablet (40 mg) by mouth Daily, Disp: 90 tablet, Rfl: 1 carvedilol (Coreg) 25 MG tablet, Take 1 tablet (25 mg) by mouth in the morning and 1 tablet (25 mg) in the evening. Take with meals., Disp: 180 tablet, Rfl: 1 Continuous Glucose Material Inspector (FreeStyle Era 2 [place]) device, 1 each in the morning and 1 each at noon and 1 each in the evening and 1 each before bedtime., Disp: 1 each, Rfl: 0 Kzgikzgnuwy-Edtndbuot-Oxrlbp (Trelegy Ellipta) 200-62.5-25 MCG/ACT aerosol powder , Inhale 1 puff Daily, Disp: 3 each, Rfl: 0 glipiZIDE (Glucotrol) 5 MG tablet, Take 1 tablet (5 mg) by mouth in the morning and 1 tablet (5 mg) in the evening. Take before meals., Disp: 180 tablet, Rfl: 1 insulin glargine-yfgn (Semglee, yfgn,) 100 UNIT/ML injection, Inject 25 Units under the skin at bedtime, Disp: 7.5 mL, Rfl: 11 insulin pen needle (B-D ULTRAFINE III SHORT PEN) 31G X 8 mm amg [facility], Daily, Disp: 100 each, Rfl: 12 losartan-hydroCHLOROthiazide (Hyzaar) 100-25 MG tablet, Take 1 tablet by mouth Daily, Disp: 90 tablet, Rfl: 1 metFORMIN (Glucophage) 850 MG tablet, Take 1 tablet (850 mg) by mouth in the morning and 1 tablet (850 mg) in the evening. Take with meals., Disp: 180 tablet, Rfl: 1 omeprazole (PriLOSEC) [address] capsule, Take 1 capsule (40 mg) by mouth in the morning. Take before meals., Disp: 90 capsule, Rfl: 1 SITagliptin (Januvia) 100 MG tablet, Take 1 tablet (100 mg) by mouth Daily, Disp: 90 tablet, Rfl: 1 spironolactone (Aldactone) 50 MG tablet, Take 1 tablet (50 mg) by mouth Daily, Disp: 90 tablet, Rfl: 1 Allergies Patient has no known allergies. Past Surgical History Past Surgical History: Procedure Laterality Date ANKLE SURGERY Right COLONOSCOPY 2021 HEMORRHOID SURGERY 09/10/2022 banding of hemorrhoids Family History Family History Problem Relation Name Age of Onset Stroke Father Diabetes Sister Objective Physical Exam Constitutional: General: He is not in acute distress. Appearance: He is obese. Cardiovascular: Comments: DP pulse: 2/4 PT pulse: 2/4 Skin temperature is warm to warm bilaterally Edema: Moderate edema bilaterally, worse on the right lower extremity. Multiple telangiectasias and varicosities bilaterally. Hemosiderin deposition present bilaterally. Pulmonary: Effort: Pulmonary effort is normal. No respiratory distress. Musculoskeletal: Cervical back: Neck supple. No rigidity. Comments: Pedal deformities: Status post right TTC arthrodesis. Mild hammertoe contractures bilaterally. Skin: Capillary Refill: Capillary refill takes less than 2 seconds. Comments: 7 toenails exhibit clinical mycosis with thickened appearance, yellow/brown discoloration, crumbly texture and subungual debris. All 10 toenails elongated. Hyperkeratotic tissue: Left foot: None Right foot: None Skin is slightly thinned Hair growth: Absent Neurological: Mental Status: He is alert. Comments: Protective sensation intact at 10/10 pedal sites Vibratory sensation diminished at the 1st MTP bilaterally. Psychiatric: Mood and Affect: Mood normal. Behavior: Behavior normal. Assessment/Plan ICD-10-CM 1. Onychodystrophy L60.3 2. Type 2 diabetes mellitus with diabetic polyneuropathy, with long-term current use of insulin ([facility]) E11.42 Ambulatory referral to Podiatry Z79.4 3. Onychomycosis B35.1 Patient was examined and evaluated. Patient is low risk for diabetic foot complications. He does have some mild loss of vibratory sensation bilaterally to suggest early neuropathy. No preulcerative lesions. 10 toenails were debrided in length and thickness today utilizing a nail nipper and electric bur flat grinder operator without incident. I have discussed the importance of daily foot examinations and tight blood sugar control. We will follow up in 6 months for low risk diabetic foot evaluation. This note was created with the assistance of a speech recognition program. While intending to generate a timely document that accurately reflects the content of the visit, no guarantee can be provided that every grammatical or spelling mistake has been or will be identified or corrected. Thank you for your understanding. Abisai Boateng DPM documented in this encounter [facility] 01-22-2024 History of Present illness Narrative Associated Problem(s): Severe persistent asthma without complication (CMS/HCC) Trelegy And Albuterol PRN. Feels symptoms are well managed. Denies any exacerbations, cough, shortness of breath. Associated Problem(s): Type 2 diabetes mellitus with diabetic polyneuropathy, with long-term current use of insulin (CMS/HCC) Glipizide 5mg Metformin 850mg Januvia 100mg Most recent labs: A1c not completed. Average FSBS range from BGs range between 94 and 200 No episode of hypoglycemia No medication adverse effects reported by the patient. Patient educated on lifestyle modifications, dietary restrictions, signs and symptoms of hypoglycemia/hyperglycemia and importance of eating regular consistent meals. Stressed upon importance of checking blood glucose at home and bring blood glucose log to appointments. All questions, concerns answered and addressed. Encouraged to call office if persistent hypoglycemia/hyperglycemia on home glucose monitoring noted. DM eye exam- 3 months ago Associated Problem(s): Hyperlipidemia (CMS/HCC) Atorvastatin 40mg Denies myalgias Continue current regimen. Associated Problem(s): Resistant hypertension (CMS/HCC) Currently taking Amlodipine 10mg Carvedilol 25mg Losartan-hydrochlorothiazide 100-25mg Spironlactone 50mg Checks BP at home; Averages are Denies orthostatic changes, dizziness, cough, shortness of breath, swelling in extremities. Continue current regimen. Images from the original note were not included. Subjective Patient ID: Dante Dewey is a 58 y.o. male who presents for Follow-up (3MO, ) and Poison Suzi ([facility] WAS GIVEN STEROID AND CREAM. PT HAS BEEN DONE FOR ONE WEEK, BUT RASH IS STILL PRESENT AND BLISTERING. ). HPI Labs all need to be completed that were ordered in September. HTN: Currently taking Amlodipine 10mg Carvedilol 25mg Losartan-hydrochlorothiazide 100-25mg Spironlactone 50mg Checks BP at home; Averages are Denies orthostatic changes, dizziness, cough, shortness of breath, swelling in extremities. Continue current regimen. HLD: Atorvastatin 40mg Denies myalgias Continue current regimen. DMII: Glipizide 5mg Metformin 850mg Januvia 100mg Most recent labs: A1c not completed. Average FSBS range from BGs range between 94 and 200 No episode of hypoglycemia No medication adverse effects reported by the patient. Patient educated on lifestyle modifications, dietary restrictions, signs and symptoms of hypoglycemia/hyperglycemia and importance of eating regular consistent meals. Stressed upon importance of checking blood glucose at home and bring blood glucose log to appointments. All questions, concerns answered and addressed. Encouraged to call office if persistent hypoglycemia/hyperglycemia on home glucose monitoring noted. DM eye exam- 3 months ago Diabetic foot exam: Left: Reflexes 2+ Vibratory sensation normal Proprioception normal Sharp/dull discrimination normal Filament test present Right: Reflexes 2+ Vibratory sensation normal Proprioception normal Sharp/dull discrimination normal Filament test present Review of Systems Constitutional: Negative for activity change, appetite change, chills, diaphoresis, fatigue, fever and unexpected weight change. HENT: Negative for congestion, ear pain, rhinorrhea, sinus pressure, sinus pain, sneezing, sore throat, trouble swallowing and voice change. Eyes: Negative for visual disturbance. Respiratory: Negative for cough, chest tightness, shortness of breath and wheezing. Cardiovascular: Negative for chest pain, palpitations and leg swelling. Gastrointestinal: Negative for abdominal distention, abdominal pain, blood in stool, constipation, diarrhea and vomiting. Genitourinary: Negative for decreased urine volume, dysuria, flank pain, frequency, hematuria and urgency. Musculoskeletal: Negative for arthralgias, gait problem, joint swelling and myalgias. Skin: Negative for rash. Neurological: Negative for dizziness, tremors, syncope, weakness, light-headedness and headaches. Psychiatric/Behavioral: Negative for decreased concentration and suicidal ideas. The patient is not nervous/anxious. Hematological: Does not bruise/bleed easily. Endocrine: Negative for cold intolerance, heat intolerance, polydipsia, polyphagia and polyuria. Objective Physical Exam Vitals reviewed. Constitutional: Appearance: Normal appearance. HENT: Head: Normocephalic and atraumatic. Right Ear: Tympanic membrane normal. Left Ear: Tympanic membrane normal. Nose: Nose normal. Mouth/Throat: Mouth: Mucous membranes are moist. Pharynx: Oropharynx is clear. Eyes: Pupils: Pupils are equal, round, and reactive to light. Cardiovascular: Rate and Rhythm: Normal rate and regular rhythm. Pulses: Normal pulses. Heart sounds: Normal heart sounds. Pulmonary: Effort: Pulmonary effort is normal. Breath sounds: Normal breath sounds. Abdominal: General: Abdomen is flat. Bowel sounds are normal. Palpations: Abdomen is soft. Musculoskeletal: General: Normal range of motion. Cervical back: Normal range of motion. Feet: Right foot: Toenail Condition: Right toenails are abnormally thick, long and ingrown. Left foot: Toenail Condition: Left toenails are abnormally thick, long and ingrown. Skin: General: Skin is warm and dry. Capillary Refill: Capillary refill takes less than 2 seconds. Findings: Rash present. Rash is urticarial. Neurological: General: No focal deficit present. Mental Status: He is alert and oriented to person, place, and time. Psychiatric: Mood and Affect: Mood normal. Behavior: Behavior normal. Assessment/Plan Problem List Items Addressed This Visit Resistant hypertension (CMS/HCC) Currently taking Amlodipine 10mg Carvedilol 25mg Losartan-hydrochlorothiazide 100-25mg Spironlactone 50mg Checks BP at home; Averages are Denies orthostatic changes, dizziness, cough, shortness of breath, swelling in extremities. Continue current regimen. Relevant Medications losartan-hydroCHLOROthiazide (Hyzaar) 100-25 MG tablet spironolactone (Aldactone) 50 MG tablet amLODIPine (Norvasc) 10 MG tablet carvedilol (Coreg) 25 MG tablet Type 2 diabetes mellitus with diabetic polyneuropathy, with long-term current use of insulin ([facility]) - Primary Glipizide 5mg Metformin 850mg Januvia 100mg Most recent labs: A1c not completed. Average FSBS range from BGs range between 94 and 200 No episode of hypoglycemia No medication adverse effects reported by the patient. Patient educated on lifestyle modifications, dietary restrictions, signs and symptoms of hypoglycemia/hyperglycemia and importance of eating regular consistent meals. Stressed upon importance of checking blood glucose at home and bring blood glucose log to appointments. All questions, concerns answered and addressed. Encouraged to call office if persistent hypoglycemia/hyperglycemia on home glucose monitoring noted. DM eye exam- 3 months ago Relevant Medications SITagliptin (Januvia) 100 MG tablet glipiZIDE (Glucotrol) 5 MG tablet insulin glargine-yfgn (Semglee, yfgn,) 100 UNIT/ML injection Severe persistent asthma without complication ([facility]) Trelegy And Albuterol PRN. Feels symptoms are well managed. Denies any exacerbations, cough, shortness of breath. Relevant Medications albuterol HFA 90 mcg/act inhaler Ifbttcolapk-Yqaxiltqs-Jtrgqi (Trelegy Ellipta) 200-62.5-25 MCG/ACT aerosol powder Gastroesophageal reflux disease without esophagitis Relevant Medications omeprazole (PriLOSEC) [address] capsule Hyperlipidemia ([facility]) Atorvastatin 40mg Denies myalgias Continue current regimen. Relevant Medications metFORMIN (Glucophage) 850 MG tablet aspirin 81 MG chewable tablet atorvastatin (Lipitor) 40 MG tablet Other Visit Diagnoses Type 2 diabetes mellitus without complication, with long-term current use of insulin ([facility]) Relevant Medications Continuous Glucose Material Inspector (Pursway Era 2 [place]) device Primary hypertension (CMS/HCC) Relevant Medications losartan-hydroCHLOROthiazide (Hyzaar) 100-25 MG tablet amLODIPine (Norvasc) 10 MG tablet documented in this encounter [facility] 01-22-2024 Instructions Marquis Velasquez NP - 01/22/2024 4:00 PM EDT You did not have your Spironolactone with you today. Please make sure you are taking it as directed! FASTING labs ordered. Nothing to eat or drink for 12 hours prior to blood draw. Water and black coffee ok. Your blood pressure is GOOD in the office today. Check your blood pressure at home 3 times per week, preferably in the afternoon. Goal <130/90. Record results in blood pressure log. Bring back with you to your next visit. Education: Check blood sugars daily, notify if <70 or >200. Take medications (pills or insulin) as directed. Monitor for s/s of hypoglycemia (sweaty, dizziness, nausea, vomiting, or shakiness). Watch for increase in thirst, urination, or appetite. Inspect feet frequently monitoring for open wounds , and also recommend yearly eye exam. Pt should attempt to remain as physically active as chronic conditions allow, as well as trying to follow a diet low in carbohydrates, and simple sugars. documented in this encounter [facility] 12-22-2021 Procedure note [facility] 10-26-2021 Note PROCEDURE: XR ANKLE RT MIN [...] authenticated by: MICHELLE IBRAHIM Date: 2021-10-26 08:54 [facility] 09-05-2021 Note PROCEDURE: XR ANKLE RT MIN 3 VIEWS COMPARISON: None. 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 No acute fracture, dislocation or mechanical failure. Stable degenerative changes. Mild enthesopathic spurring of the calcaneus SOFT TISSUES:Mild soft tissue swelling EFFUSION:None visible. OTHER: Negative. IMPRESSION: Stable talus arthroplasty Electronically authenticated by: GERA BLUM Date: 2021-09-05 15:22 [facility] Evaluation note No assessment inform ation [facility] Work Phone: Evaluation note Diagnosis Primary hypertension (CMS/HCC)- Primary Unspecified essential hypertension Type 2 diabetes mellitus with diabetic polyneuropathy, with long-term current use of insulin (CMS/HCC) Other hyperlipidemia (CMS/HCC) Gastroesophageal reflux disease without esophagitis Esophageal reflux Type 2 diabetes mellitus with diabetic polyneuropathy, with long-term current use of insulin (CMS/HCC)- Primary Resistant hypertension (CMS/HCC) Hyperlipidemia, unspecified hyperlipidemia type (CMS/HCC)- Primary Resistant hypertension (CMS/HCC) Type 2 diabetes mellitus with diabetic polyneuropathy, with long-term current use of insulin (CMS/HCC) Gastroesophageal reflux disease without esophagitis Esophageal reflux Primary hypertension (CMS/HCC) Unspecified essential hypertension Type 2 diabetes mellitus with diabetic polyneuropathy, with long-term current use of insulin (CMS/HCC)- Primary Severe persistent asthma without complication (CMS/HCC) Resistant hypertension (CMS/HCC) Gastroesophageal reflux disease without esophagitis Esophageal reflux Mixed hyperlipidemia (CMS/HCC) Mixed hyperlipidemia Type 2 diabetes mellitus without complication, with long-term current use of insulin (CMS/HCC) Primary hypertension (CMS/HCC) Unspecified essential hypertension Hyperlipidemia, unspecified hyperlipidemia type (CMS/HCC) Type 2 diabetes mellitus without complication, with long-term current use of insulin (CMS/HCC) documented in this encounter [facility]* Diagnosis Primary hypertension (CMS/HCC)- Primary Unspecified essential hypertension Type 2 diabetes mellitus with diabetic polyneuropathy, with long-term current use of insulin (CMS/HCC) Other hyperlipidemia (CMS/HCC) Gastroesophageal reflux disease without esophagitis Esophageal reflux Type 2 diabetes mellitus with diabetic polyneuropathy, with long-term current use of insulin (CMS/HCC)- Primary Resistant hypertension (CMS/HCC) Hyperlipidemia, unspecified hyperlipidemia type (CMS/HCC)- Primary Resistant hypertension (CMS/HCC) Type 2 diabetes mellitus with diabetic polyneuropathy, with long-term current use of insulin (CMS/HCC) Gastroesophageal reflux disease without esophagitis Esophageal reflux Primary hypertension (CMS/HCC) Unspecified essential hypertension Type 2 diabetes mellitus with diabetic polyneuropathy, with long-term current use of insulin (CMS/HCC)- Primary Severe persistent asthma without complication (CMS/HCC) Resistant hypertension (CMS/HCC) Gastroesophageal reflux disease without esophagitis Esophageal reflux Mixed hyperlipidemia (CMS/HCC) Mixed hyperlipidemia Type 2 diabetes mellitus without complication, with long-term current use of insulin (CMS/HCC) Primary hypertension (CMS/HCC) Unspecified essential hypertension Hyperlipidemia, unspecified hyperlipidemia type (CMS/HCC) Type 2 diabetes mellitus with diabetic polyneuropathy, with long-term current use of insulin (CMS/HCC)- Primary Resistant hypertension (CMS/HCC) Gastroesophageal reflux disease without esophagitis Esophageal reflux documented in this encounter [facility]Evaluation [facility]* Diagnosis Primary hypertension ([facility]CC)- Primary Unspecified essential hypertension Type 2 diabetes mellitus with diabetic polyneuropathy, with long-term current use of insulin (CMS/HCC) Other hyperlipidemia (CMS/HCC) Gastroesophageal reflux disease without esophagitis Esophageal reflux Type 2 diabetes mellitus with diabetic polyneuropathy, with long-term current use of insulin (CMS/HCC)- Primary Resistant hypertension (CMS/HCC) Hyperlipidemia, unspecified hyperlipidemia type (CMS/HCC)- Primary Resistant hypertension (CMS/HCC) Type 2 diabetes mellitus with diabetic polyneuropathy, with long-term current use of insulin (CMS/HCC) Gastroesophageal reflux disease without esophagitis Esophageal reflux Primary hypertension (CMS/HCC) Unspecified essential hypertension Type 2 diabetes mellitus with diabetic polyneuropathy, with long-term current use of insulin (CMS/HCC)- Primary Severe persistent asthma without complication (CMS/HCC) Resistant hypertension (CMS/HCC) Gastroesophageal reflux disease without esophagitis Esophageal reflux Mixed hyperlipidemia (CMS/HCC) Mixed hyperlipidemia Type 2 diabetes mellitus without complication, with long-term current use of insulin (CMS/HCC) Primary hypertension (CMS/HCC) Unspecified essential hypertension Hyperlipidemia, unspecified hyperlipidemia type (CMS/HCC) Type 2 diabetes mellitus with diabetic polyneuropathy, with long-term current use of insulin (CMS/HCC)- Primary Resistant hypertension (CMS/HCC) Gastroesophageal reflux disease without esophagitis Esophageal reflux Type 2 diabetes mellitus with diabetic polyneuropathy, with long-term current use of insulin (CMS/HCC)- Primary documented in this encounter [facility]* Diagnosis Type 2 diabetes mellitus with diabetic polyneuropathy, with long-term current use of insulin (CMS/HCC)- Primary Severe persistent asthma without complication (CMS/HCC) Resistant hypertension (CMS/HCC) Gastroesophageal reflux disease without esophagitis Esophageal reflux Mixed hyperlipidemia (CMS/HCC) Mixed hyperlipidemia Type 2 diabetes mellitus without complication, with long-term current use of insulin ([facility]CC) Primary hypertension (CMS/HCC) Unspecified essential hypertension Hyperlipidemia, unspecified hyperlipidemia type (CMS/HCC) documented in this encounter [facility]Evaluation note* Diagnosis Onychodystrophy- Primary Other specified disease of nail Type 2 diabetes mellitus with diabetic polyneuropathy, with long-term current use of insulin ([facility]) Onychomycosis Dermatophytosis of nail documented in this encounter [facility] Healthcare[facility] note* Diagnosis Primary hypertension ([facility]/HCC)- Primary Unspecified essential hypertension Type 2 diabetes mellitus with diabetic polyneuropathy, with long-term current use of insulin (CMS/HCC) Other hyperlipidemia (CMS/HCC) Gastroesophageal reflux disease without esophagitis Esophageal reflux Type 2 diabetes mellitus with diabetic polyneuropathy, with long-term current use of insulin ([facility]/HCC)- Primary Resistant hypertension (CMS/HCC) Hyperlipidemia, unspecified hyperlipidemia type (CMS/HCC)- Primary Resistant hypertension (CMS/HCC) Type 2 diabetes mellitus with diabetic polyneuropathy, with long-term current use of insulin (CMS/HCC) Gastroesophageal reflux disease without esophagitis Esophageal reflux Primary hypertension (CMS/HCC) Unspecified essential hypertension Type 2 diabetes mellitus with diabetic polyneuropathy, with long-term current use of insulin (CMS/HCC)- Primary Severe persistent asthma without complication (CMS/HCC) Resistant hypertension (CMS/HCC) Gastroesophageal reflux disease without esophagitis Esophageal reflux Mixed hyperlipidemia (CMS/HCC) Mixed hyperlipidemia Type 2 diabetes mellitus without complication, with long-term current use of insulin (CMS/HCC) Primary hypertension (CMS/HCC) Unspecified essential hypertension Hyperlipidemia, unspecified hyperlipidemia type (CMS/HCC) Type 2 diabetes mellitus with diabetic polyneuropathy, with long-term current use of insulin ([facility])- Primary Resistant hypertension (CMS/HCC) Gastroesophageal reflux disease without esophagitis Esophageal reflux Severe persistent asthma without complication (CMS/HCC) documented in this encounter [facility] Author Sav Andrews [facility] December 22, 2021 9:32am Note Date/Time December 22, 2021 9:32 am [facility] [address] [place] [address] Gastroenterology H&P Signed Patient: Dante Dietz MR #: [id number] : 1965 Acct:[id number] Age/Sex: 56 / M Adm Date: 2 Loc: Room: Type: [facility] Attending Dr: Sav Andrews MD Copies [...] Andrews MD Documented By: Sav Andrews MD 12/22/21 0931 Signed By: <Electronically signed by Sav Andrews MD> 12/22/21 0932 [facility] Work Phone: [facility] for referral (narrative)* Consultation (Routine) - Pending Review Specialty Diagnoses / Procedures Referred By Magdy charlton Referred To Contact Podiatry Diagnoses Type 2 diabetes mellitus with diabetic polyneuropathy, with long-term current use of insulin ([facility]) Procedures DE OFFICE/OUTPATIENT NEW HIGH MDM 60 MINUTES Marquis Velasquez NP [address] [place] [address] Rita Mejia, DPM [address] [place] [address] Referral ID Status Reason Start Date Expiration Date Visits Requested Visits Authorized [id number] Pending Review Specialty Services Required 01/22/2024 07/20/2024 1 1 [facility] Chief Complaint and Reason for Visit Chief Complaint Screening Screening Chief Complaint Hemorrhoids, Rectal Bleeding Chief Complaint Hemorrhoids, Rectal Bleeding Hemorrhoids, Rectal Bleeding Advance Directives Advance Directive Response Recorded Date/ Time Advance [...] Active Silver Briceño DO Attending Provider Active X Ray Service Technician Relationship Specialty Start Date End Date Antwan Perez MD [address] [place] [phone] PCP - General Family Medicine 12/30/23 Marquis Velasquez NP [address] [place] [address] Nurse Practitioner Family Medicine 12/30/23 X Ray Service Technician Relationship Specialty Start Date End Date Antwan Perez MD [address] [place] [address] PCP - General Family Medicine 12/30/23 Shaikh Baker MD [address] [place] [address] PCP - [facility] 02/25/24 Marquis Velasquez NP [address] [place] [address] Nurse Practitioner Family Medicine 12/30/23 X Ray Service Technician Relationship Specialty Start Date End Date Antwan Perez MD [address] [place] [address] PCP - General Family Medicine 12/30/23 Shaikh Baker MD [address] [place] [address] PCP - [facility] 02/25/24 Marquis Velasquez NP [address] [place] [address] Nurse Practitioner Family Medicine 12/30/23 X Ray Service Technician Relationship Specialty Start Date End Date Antwan Perez MD [address] [place] [address] PCP - General Family Medicine 12/30/23 Shaikh Baker MD [address] [place] [address] PCP - [facility] 02/25/24 Marquis Velasquez NP [address] [place] [address] Nurse Practitioner Family Medicine 12/30/23 X Ray Service Technician Relationship Specialty Start Date End Date Antwan Perez MD [address] [place] [address] PCP - General Family Medicine 12/30/23 Marquis Velasquez NP [address] [place] [address] Nurse Practitioner Family Medicine 12/30/23 X Ray Service Technician Relationship Specialty Start Date End Date Antwan Perez MD [address] [place] [address] PCP - General Family Medicine 12/30/23 Marquis Velasquez NP [address] [place] [address] Nurse Practitioner Family Medicine 12/30/23 X Ray Service Technician Relationship Specialty Start Date End Date Antwan Perez MD [address] [place] [address] PCP - General Family Medicine 12/30/23 Marquis Velasquez NP [address] [place] [address] Nurse Practitioner Family Medicine 12/30/23 X Ray Service Technician Relationship Specialty Start Date End Date Antwan Perez MD [address] [place] [address] PCP - General Family Medicine 12/30/23 Marquis Velasquez NP [address] [place] [address] Nurse Practitioner Family Medicine 12/30/23 X Ray Service Technician Relationship Specialty Start Date End Date Antwan Perez MD [address] [place] [address] PCP - General Family Medicine 12/30/23 Marquis Velasquez NP [address] [place] [address] Nurse Practitioner Family Medicine 12/30/23 X Ray Service Technician Relationship Specialty Start Date End Date Antwan Perez MD [address] [place] [address] PCP - General Family Medicine 12/30/23 Shaikh Baker MD [address] [place] [address] [facility] 02/25/24 Marquis [facility] [address] [facility] [place] [address] Nurse Practitioner Family Medicine 12/30/23 (unrecognized sect ion and content) No Status Records FoundNo Status Records FoundNo Status Records Found INFORMATION SOURCE (unrecogn ized section and content) DATE CREATED AUTHOR 07/14/2022 [facility] DATE CREATED AUTHOR AUTHOR'S ORGANIZ ATION 10/02/2022 [facility] DATE CREATED AUTHOR AUTHOR'S ORGANIZ ATION 04/29/2024 [facility] EPIC Goals (unrecognized section and content) Goals may be documented in a n alternate section Reason for Visit (unrecogniz ed section and content) Reason Onset Date Comments Med Refill 03/18/2024 Reason Comments Follow-up Med Refills Reason Onset Date Comments Med Refill 05/06/2024 Reason Comments Follow-up 3MO, Poison [facility] ER WAS GIVEN FADI ROID AND CREAM. PT HAS BEEN DONE FOR ONE WEEK, BUT RASH IS STILL PRESENT AND BLISTERING. Reason Comments DM Foot Care Dante Morgan s 59yo male, New Patient presents with referral from Marquis Velasquez 01/22/2024 for diabetic nail care and polyneuropathy.Patient relates his nails are thick and difficult to trim. BS 01/22/2024 A1C SS 9.5 Specialty Diagnoses / Procedures Referred By Magdy charlton Referred To Contact Podiatry Diagnoses Type 2 diabetes mellitus with diabetic polyneuropathy, with long-term current use of insulin ([facility]) Procedures DE OFFICE/OUTPATIENT NEW HIGH MDM 60 MINUTES Marquis Velasquez, MARIA FERNANDA [address] [facility] [place] [address] Rita Mejia, VAL [address] [place] [address] Referral ID Status Reason Start Date Expiration Date V isits Requested Visits Authorized [id number] Closed Specialty Services Required 01/22/2024 07/20/2024 1 1 Reason Comments Med Refill FOR RECORDS PERTAINING TO PATIENTS WHO ARE [...] BE BASED ON THE PRIMARY CLINICAL RECORDS. [facility], [facility]. provides no warranty or guarantee of the accuracy or completeness of information in this document.
[2024-07-18 09:01] LABS: Basophils Absolute Auto 0.1 10^3/uL (0.0-0.1); Basophils Percent Auto 0.8 % (0.2-2.0); Eosinophils Absolute Auto 0.4 10^3/uL (0.0-0.7); Eosinophils Percent Auto 7.1 % (0.9-7.0); Hematocrit 39.4 % (42.0-54.0); Hemoglobin 13.4 g/dL (14.0-18.0); Immature Granulocytes Abs Auto 0.07 10^3/uL (0.00-0.03); Immature Granulocytes Pct Auto 1.2 % (0.0-0.5); Lymphocytes Percent Auto 32.4 % (20.5-60.0); Mean Corpuscular Hemoglobin 29.6 pg (25.9-34.0); Mean Platelet Volume 10.5 fL (9.5-13.5); Monocytes Absolute Auto 0.4 10^3/uL (0.3-0.8); Monocytes Percent Auto 6.4 % (1.7-12.0); Neutrophils Absolute Auto 3.2 10^3/uL (1.4-6.5); Neutrophils Percent Auto 52.1 % (43.0-75.0); Platelet Count 173 10^3/uL (150-450); Red Blood Count 4.53 10^6/uL (4.70-6.10); Red Cell Distribution Width 13.2 % (11.0-15.0); White Blood Count 6.1 10^3/uL (4.0-11.0)
[2024-07-18 09:29] LABS: Creatinine Urine Random 65.58 mg/dL (20.00-300.00); Microalbum Creatinine Ratio Ur 83.8 mg/g (0.0-29.9); Microalbumin Urine Random 5.5 mg/dL (<=30.0)
[2024-07-18 09:30] LABS: Alanine Aminotransferase 111 U/L (16-63); Albumin Globulin Ratio 0.9; Albumin Level 3.7 g/dL (3.4-5.0); Alkaline Phosphatase 76 U/L (46-116); Anion Gap 10.8; Aspartate Amino Transferase 68 U/L (15-37); Bilirubin Total 1.1 mg/dL (0.2-1.0); Calcium 9.1 mg/dL (8.5-10.1); Carbon Dioxide 29.6 mmol/L (21.0-32.0); Chloride 102 mmol/L (98-107); Estimated GFR (African America >60 (>=60 mL/min/1.73m^2); Estimated GFR (Non-African Ame >60 (>=60 mL/min/1.73m^2); Globulin 4.1 g/dL; Glucose 161 mg/dL (74-106); Potassium 4.4 mmol/L (3.5-5.1); Sodium 138 mmol/L (136-145); Total Protein 7.8 g/dL (6.4-8.2)
[2024-07-18 16:28] LABS: Estimated Average Glucose 192 mg/dL; Glycohemoglobin A1C 8.3 % (4.5-6.2)
== END 2024-07-18 08:26 | disposition home or self-care (01) ==
DX: E11.42 Type 2 diabetes mellitus with diabetic polyneuropathy (principal); Z79.4 Long term (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; I1A.0 Resistant hypertension
CPT/HCPCS: 36415; 80053; 82043; 82570; 83036; 85025

== ENCOUNTER 2024-08-18 16:08 | Outpatient (OUT) | payer BC, SELFPAY ==
--- OUTSIDE RECORDS SUMMARY | 2024-08-18 16:27 | XMS_ITS | CCD ---
Author Organization [facility] Care Team Providers Care Dry Cleaner Hand Name Role Phone MD Sav Andrews Attending Provider [phone] MD Deana Baker Primary Care Provider [phone] DR ASA AL Attending Unavailable ACACIA JENKINS [...] [place], DR MICHELLE Valles Consulting Unavailable REY PEREZ Consulting Unavailable REY PEREZ Admitting Unavailable ULISES, [...] Briceño Attending Unavailable Silver Briceño Admitting Unavailable Samuel, Primary Care Unavailable Sav Andrews Admitting Unavailable Sav Andrews Attending Unavailable Silver Briceño Attending Unavailable Silver Briceño Admitting Unavailable Samuel, Primary Care Unavailable Antwan Perez MD Primary Care Provider [phone] Eva RISK MANAGEMENT CONSULTANT, Marquis Unavailable Samuel GUPTA, Unavailable Eva RISK MANAGEMENT CONSULTANT, Marquis Unavailable LUCI RIOS Attending Unavailable FAMATT, Attending Unavailable SHAIKH BAKER Attending Unavailable SAMUEL, Attending Unavailable MARQUIS VELASQUEZ Attending UnavailABISAI Gomez Attending Unavailable MARQUIS VELASQUEZ Referring UnavailMARQUIS Carlos Attending Unavailmichael e Medications Current Medications Medication Drug Class(es) Dates Sig (Normalized) Sig (Original) amLODIPine 10 mg oral tablet (20 sources) Dihydropyridine Calcium Channel Blanca Start: 10-24-2023 End: 07-20-2024 take 1 tablet by mouth once daily amLODIPine (Norvasc) 10 MG tablet Indications: Primary hypertension (CMS/HCC) Take 1 tablet (10 mg) by mouth Daily 90 tablet 1 01/22/2024 Active Start: 12-22-2021 take 5 mg by mouth o nce daily in the morning Amlodipine Active 5 MG PO Every morning December 22, 2021 12:00am aspirin 81 mg chewable tablet (20 sources) Platelet Aggregation Inhibitor, Nonsteroidal Anti-inflammatory Drug [...] by mouth Daily 90 tablet 1 01/22/2024 Active Start: 08-30-2022 take 40 mg by mouth once daily in the morning Atorvastatin Active 40 MG PO Every morning August 30, 2022 12:00am Start: 12-22-2021 End: 08-30-2022 take 10 mg by mouth once daily Atorvastatin Discontinu ed 10 MG PO Daily December 22, 2021 12:00am August 30, 2022 5:17pm carvedilol 25 mg oral tablet (20 sources) alpha-Adrenergic Blanca, beta-Adrenergic Blanca Start: 10-24-2023 End: 07-20-2024 take 1 tablet by mouth in the morning carvedilol (Coreg) 25 MG tablet Indications: Resistant hypertension (CMS/HCC) Take 1 tablet (25 mg) by mouth in the morning and 1 tablet (25 mg) in the evening. Take with meals. 180 tablet 1 01/22/2024 Active Start: 08-30-2022 take 25 mg by mouth twice christian y Carvedilol Active 25 MG PO Twice daily August 30, 2022 12:00am Continuous Glucose Logistics Planning Manager (FreeStyle Era 2 [place]) device (17 sources) Start: 03-19-2024 End: 03-19-2025 Continuous Glucose Logistics Planning Manager (FreeStyle Era 2 [place]) device Indications: Type 2 diabetes mellitus without complication, with long-term current use of insulin (CMS/HCC) 1 each in the morning and 1 each at noon and 1 each in the evening and 1 each before bedtime. 1 each 03/19/2024 03/19/2025 Active Start: 01-22-2024 End: 03-18-2024 Continuous Glucose Logistics Planning Manager (FreeStyle Era 2 [place]) device Indications: Type 2 diabetes mellitus without complication, with long-term current use of insulin (CMS/HCC) 1 each in the morning and 1 each at noon and 1 each in the evening and 1 each before bedtime. 1 each 01/22/2024 03/18/2024 Discontinued (Reorder) Start: 01-22-2024 End: 01-21-2025 Continuous Glucose Logistics Planning Manager (FreeStyle Era 2 [place]) device Indications: Type 2 diabetes mellitus without [...] Sensor (FreeStyle Era 3 Plus Sensor) misc (5 sources) Start: 07-23-2024 Continuous Glu cose Sensor (FreeStyle Era 3 Plus Sensor) [facility] [place] 1 SENSOR EVERY 15 DAYS TO MONITOR BLOOD SUGAR. 07/23/2024 Active Start: 05-06-2024 End: 06-03-2024 Continuous Glucose Sensor (F reeStyle Era 3 Plus Sensor) misc Indications: Type 2 diabetes mellitus with diabetic polyneuropathy, with long-term current use of insulin (CMS/[facility]) 1 each continuously for 28 days 2 each 05/06/2024 06/03/2024 Active End: 05-06-2024 Continuous Glucose Sensor (F reeStyle Era 3 Plus Sensor) [facility] 05/06/2024 Discontinued (Reorder) dapagliflozin 5 mg oral tablet (2 sources) Sodium-Glucose Cotransporter 2 Inhibitor Start: 07-29-2024 End: 10-27-2024 take 1 tablet by mouth once daily dapagliflozin (Farxiga) 5 MG Indications: Type 2 diabetes mellitus without complications (CMS/HCC) Take 1 tablet (5 mg) by mouth Daily 90 tablet 07/29/2024 10/27/2024 Active Fluticasone-Umeclid in-Vilant (Trelegy Ellipta) 200-62.5-25 MCG/ACT aerosol powder (16 sources) Start: 07-29-2024 End: 08-28-2024 take 1 puff(s) by mouth once daily, then take 1 puff(s) by mouth once daily Fluticasone-Umecli din-Vilant (Trelegy Ellipta) 200-62.5-25 MCG/ACT aerosol powder Indications: Severe persistent asthma without complication (CMS/HCC) Inhale 1 puff Daily INHALE 1 PUFF ONCE DAILY, rinse mouth after use 1 each 5 07/29/2024 08/28/2024 Active Start: 01-22-2024 take 1 puff(s) by inhalation once daily Qdrclvownff-Mtqyezdaj-Ghgdxp (Trelegy Ellipta) 200-62.5-25 MCG/ACT aerosol powder Indications: Severe persistent asthma without complication (CMS/HCC) Inhale 1 puff Daily 3 each 01/22/2024 Active Start: 01-22-2024 End: 04-21-2024 take 1 puff(s) by inhalation once daily Kwnmlobsdgv-Cvztyrzpz-Knaham (Trelegy Ellipta) 200-62.5-25 MCG/ACT aerosol powder Indications: Severe persistent asthma without complication (CMS/HCC) Inhale 1 puff Daily 3 each 01/22/2024 04/21/2024 Active Start: 05-08-2023 End: 01-22-2024 take 1 puff(s) by inhalation in the morning Hjdvxryxjey-Seypyfuyp-Almtqg (Trelegy Ellipta) 200-62.5-25 MCG/ACT aerosol powder Indications: Severe persistent asthma without complication (CMS/HCC) Inhale 1 puff in the morning. 3 each 05/08/2023 01/22/2024 Discontinued (Reorder) Start: 05-08-2023 take 1 puff(s) by inhalation in the morning Bjzljlbqcah-Ciawsqjgz-Gvsimp (Trelegy Ellipta) 200-62.5-25 MCG/ACT aerosol powder Indications: Severe persistent asthma without complication (CMS/HCC) Inhale 1 puff in the morning. 3 each 05/08/2023 Active Dmltuzdceku-Dhfskzyiv-Rtndfk er (4 sources) Start: 12-22-2021 Puesepvyomk-Jwvwyxqdy-Hbertz er (Trelegy Ellipta) 200-62.5-25 mcg Blister With Device Active 1 INH INHALATION Every morning December 22, 2021 12:00am Start: 12-22-2021 Fluticasone-Um eclidin-Vilanter (Trelegy Ellipta) 200-62.5-25 mcg Blister With Device Active 1 INH INHALATION Daily December 22, 2021 12:00am furosemide 40 mg oral tablet (2 sources) Loop Diuretic take 1 tablet by mouth once daily furosemide (Lasix) 40 MG tablet Take 40 mg by mouth Daily Active glipiZIDE 5 mg oral tablet (19 sources) Sulfonylurea Start: End: take 1 tablet by mouth in the morning glipiZIDE (Glucotrol) 5 MG tablet Indications: Type 2 diabetes mellitus with diabetic polyneuropathy, with long-term current use of insulin (CMS/HCC) Take 1 tablet (5 mg) by mouth in the morning and 1 tablet (5 mg) in the evening. Take before meals. 180 tablet 1 01/22/2024 Active hydroCHLOROthiazide 25 mg / losartan potassium 100 mg oral tablet (20 sources) Thiazide Diuretic, Angiotensin 2 Receptor Blanca Start: End: 025 take 1 tablet by mouth once daily losartan-hydroCHLOR Othiazide (Hyzaar) 100-25 MG tablet Indications: Primary hypertension (CMS/HCC) Take 1 tablet by mouth Daily 90 tablet 1 01/22/2024 Active Start: 08-30-2022 take 1 tablet by [...] glargine-yfgn (Semgl ee, yfgn,) 100 UNIT/ML injection (18 sources) Start: 04-27-2024 End: 04-27-2025 insulin glargine-yfgn [...] under the skin at bedtime 7.5 mL 01/22/2024 01/21/2025 Active meloxicam 15 mg oral tablet (4 sources) Nonsteroidal Anti-inflammatory Drug Start: 12-22-2021 take 15 mg by mouth once daily in the morning Meloxicam Active 15 MG PO Every morning December 22, 2021 12:00am metFORMIN hydrochloride 850 mg oral tablet (20 sources) Biguanide Start: 10-24-2023 End: 07-20-2024 take 1 tablet by mouth in the morning metFORMIN (Glucophage) 850 MG tablet Indications: Hyperlipidemia, unspecified hyperlipidemia type (CMS/HCC) Take 1 tablet (850 mg) by mouth in the morning and 1 tablet (850 mg) in the evening. Take with meals. 180 tablet 1 01/22/2024 Active Start: 12-22-2021 take 850 mg by mouth twice derick ly Metformin Active 850 MG PO Twice daily December 22, 2021 12:00am Start: 12-22-2021 take 850 mg by mouth once christian y Metformin Active 850 MG PO Daily December 22, 2021 12:00am Grace 7-Rlv-Rba-Fish Oil (Fish Oil) 1,200 (144-216) mg Capsule (4 sources) Start: 12-22-2021 take 1 capsule by mouth twice daily Grace 3-Sbh-Uov-Fish Oil (Fish Oil) 1,200 (144-216) mg Capsule [...] PO Every morning December 22, 2021 12:00am spironolactone 50 mg oral tablet (20 sources) Aldosterone Antagonist Start: 10-24-2023 End: 10-24-2024 [...] Q6H 30 7 September 10, 2022 12:00am Completed/Discontinued Medications Medication Drug Class(es) Dates Sig (Normalized) Sig (Original) [id number] 200 actuat albuterol 0.09 mg/actuat metered dose inhaler (20 sources) beta2-Adrenergic Agonist Start: 05-08-2023 End: 11-06-2024 take 2 puff(s) by inhalation every four hours albuterol HFA 90 mcg/act inhaler Indications: Severe persistent asthma without complication (CMS/HCC) Inhale 2 puffs every 4 (four) hours if needed for shortness of breath 18 g 01/22/2024 07/29/2024 Discontinued (Reorder) Start: 12-22-2021 take 1 puff(s) by in halation four times daily Albuterol Sulfate Active 1 PUFF INHALATION Four times daily December 22, 2021 12:00am Continuous Blood Gluc Receiv er (Eversnapyle Era 2 [place]) device (3 sources) Start: 07-18-2023 End: 01-22-2024 Continuous Blood Gluc Receiv er (FreeStyle Era 2 [place]) device Indications: Type 2 diabetes mellitus without complication, with long-term current use of insulin (CMS/HCC) 1 each in the morning and 1 each at noon and 1 each in the evening and 1 each before bedtime. 1 each 07/18/2023 01/22/2024 Discontinued (Reorder) Start: 07-18-2023 End: 07-17-2024 Continuous Blood Gluc Receiv er (FreeStyle Era 2 [place]) device Indications: Type 2 diabetes mellitus without complication, with long-term current use of insulin (CMS/HCC) 1 each in the morning and 1 each at noon and 1 each in the evening and 1 each before bedtime. 1 each 07/18/2023 07/17/2024 Active empagliflozin 10 mg oral tablet (2 sources) Sodium-Glucose Cotransporter 2 Inhibitor End: 07-29-2024 take 10 mg by mouth once daily empagliflozin (Jardiance) 10 MG Indications: Type 2 Diabetes Mellitus Take 10 mg by mouth Daily 07/29/2024 Discontinued (Therapy completed) insulin glargine-yfgn (Semglee, yfgn,) 100 UNIT/ML pen (3 sources) Start: 10-24-2023 End: 01-22-2024 insulin glargine-yfgn (Semglee, yfgn,) 100 UNIT/ML pen Indications: Type 2 [...] bedtime 22.5 mL 1 10/24/2023 04/21/2024 Active SITagliptin 100 mg oral tablet (20 sources) Dipeptidyl Peptidase 4 Inhibitor Start: 10-24-2023 End: 07-29-2024 take 1 tablet by mouth once daily SITagliptin (Januvia) 100 MG tablet Indications: Type 2 diabetes mellitus with diabetic polyneuropathy, with long-term current use of insulin (CMS/HCC) Take 1 tablet (100 mg) by mouth Daily 90 tablet 1 01/22/2024 07/29/2024 Discontinued (Therapy completed) Start: 08-30-2022 take 1 tablet by christina th once daily Sitagliptin Phosphate (Januvia) 100 mg tablet Active 100 MG PO Daily August 30, 2022 12:00am Trelegy Ellipta 200-62.5-25 MCG/ACT aerosol powder (5 sources) Start: 06-16-2024 End: 07-29-2024 take 1 puff(s) by inhalation once daily Trelegy Ellipta 200-62.5-25 MCG/ACT aerosol powder Indications: Severe persistent asthma without complication (CMS/HCC) INHALE 1 PUFF ONCE DAILY 180 each 06/16/2024 07/29/2024 Discontinued (Reorder) Start: 06-16-2024 take 1 puff(s) by in halation once daily Trelegy Ellipta 200-62.5-25 MCG/ACT aerosol powder Indications: Severe persistent asthma without complication (CMS/HCC) INHALE 1 PUFF ONCE DAILY 180 each 06/16/2024 Active Problems Active Problems Problem Classification Problem Date Documented Date Episodic/Chronic Asthma (20 sources) Uncomplicated severe persistent asthma; Translations: [Severe persistent asthma, uncomplicated] Onset: 08-07-2023 08-07-2023 Chronic Diabetes mellitus with complications (20 sources) Type 2 diabetes mellitus with diabetic autonomic (poly)neuropathy; Translations: [Polyneuropathy due to type 2 diabetes mellitus] Onset: 09-14-2021 08-07-2023 Chronic Diabetes mellitus without complication (11 sources) Type 2 diabetes mellitus without complications; Translations: [Type 2 diabetes mellitus without complication] Onset: 07-13-2022 03-18-2024 Chronic Disorders of lipid metabolism (20 sources) Hyperlipidemia, unspecified; Translations: [Mixed hyperlipidemia] Onset: 09-14-2021 Resolved: 07-29-2024 08-07-2023 Chronic Esophageal disorders (20 sources) Gastroesophageal reflux disease without esophagitis; Translations: [Gastro-esophageal reflux disease without esophagitis] Onset: 08-07-2023 08-07-2023 Chronic Essential hypertension (20 sources) Essential (primary) hypertension; Translations: [Resistant hypertensive disorder] Onset: 07-07-2022 Resolved: 07-29-2024 Chronic Mycoses (2 sources) Onychomycosis; Translations: [Tinea unguium] 02-24-2024 Episodic Other aftercare (5 sources) Long-term current use of insulin; 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] Onset: 07-29-2024 07-29-2024 Episodic Other bone disease and musculoskeletal deformities (4 sources) Idiopathic aseptic necrosis of right ankle; Translations: [IDIOPATH ASEPTIC NECROSIS RT ANKLE] Onset: 11-14-2021 Chronic Other bone disease and musculoskeletal deformities (5 sources) Idiopathic aseptic necrosis of right foot; Translations: [Aseptic necrosis of bone, other] Onset: 07-29-2024 07-29-2024 Chronic Other nutritional; endocrine; and metabolic disorders (5 sources) Obesity caused by energy imbalance; Translations: [Morbid (severe) obesity due to excess calories] Onset: 07-29-2024 07-29-2024 Chronic Other nutritional; endocrine; and metabolic disorders (5 sources) Body mass index 30+ - obesity; Translations: [Body mass index (BMI) 38.0-38.9, adult] Onset: 07-29-2024 07-29-2024 Chronic Other skin disorders (2 sources) Dystrophia [...] Problem Date Documented Da te Episodic/Chronic Hemorrhoids (18 sources) Hemorrhoids; Translations: [Unspecified hemorrhoids] Onset: 08-07-2023 [...] Name Value Interpretation Reference Range Facility ALL CBC WITH AUTO DIFFon BASOPHILS ABSOLUTE AUTO 0.1 N [facility] Basophils/100 WBC (Bld) 0.8 % 0.2 - 2.0 % [facility] Eosinophils/100 WBC (Bld) 7.1 % High 0.9 - 7.0 % [facility] Erythrocyte distribution width (RBC) [Ratio] 13.2 % 11.0 - 15.0 % [facility] Hematocrit (Bld) [Volume fraction] 39.4 % Low 42.0 - 54.0 % [facility] Hemoglobin (Bld) [Mass/Vol] 13.4 g/dL Low 14.0 - 18.0 g/dL [facility] IMMATURE GRANULOCYTES ABS AUTO 0.[address] [facility] Immature granulocytes/100 WBC (Bld) 1.2 % High 0.0 - 0.5 % [facility] Interpretation and review of laboratory results Abnormal [facility] LYMPHOCYTES ABSOLUTE AUTO 2 [facility] Lymphocytes/100 WBC (Bld) 32.4 % 20.5 - 60.0 % [facility] MCH (RBC) [Entitic mass] 29.6 pg 25. 9 - 34.[address] [facility] MCHC (RBC) [Mass/Vol] 34 g/dL 29.9 - 35.2 g/dL [facility] MCV (RBC) [Entitic vol] 87 fL 80.0 - 94.[address] [facility] MONOCYTES ABSOLUTE AUTO 0.4 [facility] Monocytes/100 WBC (Bld) 6.4 % 1.7 - 12.0 % [facility] NEUTROPHILS ABSOLUTE AUTO 3.2 [facility] Neutrophils/100 WBC (Bld) 52.1 % 43.0 - 75.0 % [facility] Platelet mean volume (Bld) [Entitic vol] 10.5 fL 9.5 - 13.[address] [facility] EO # 0.4 [facility] PLT 173 [facility] RBC 4.53 Low [facility] WBC 6.1 [facility] ALL LIPID PROFILE (FASTING)o n 01-25-2024 CHOL HDL RATIO 3.4 [facility] Comment on above: 3.3 - 4.4 LOW RISK 4.4 - 7.1 AVERAGE RISK 7.1 - 11.0 MODERATE RISK >11.0 HIGH RISK Cholesterol [Mass/Vol] 149 mg/dL NINF - 200 mg/dL [facility] Cholesterol in HDL [Mass/Vol] 44 mg/dL 40 - 60 mg/dL [facility] Comment on above: > or =60 mg/dl - LOW CARDIOVASCULAR RISK <40 mg/dl - HIGH CARDIOVASCULAR RISK Magnesium [Mass/Vol] 70.0 mg/dL [facility] Comment on above: <100 mg/dl OPTIMAL 100-129 mg/dl NEAR OR ABOVE OPTIMAL 130-159 mg/dl BORDERLINE HIGH 160-189 mg/dl HIGH >190 mg/dl VERY HIGH Magnesium [Mass/Vol] 35.6 mg/dL [facility] Triglyceride [Mass/Vol] 178 mg/dL High NINF - 150 mg/dL [facility] CMP (CMP) (FOR REMOTE FH C USE)on 01-25-2024 Albumin [Mass/Vol] 3.3 g/dL Low 3.4 - 5.0 g/dL [facility] ALBUMIN GLOBULIN RATIO 0.8 NO [facility] ALP [Catalytic activity/Vol] 63 U/L 46 - 116 U/L [facility] ALT [Catalytic activity/Vol] 46 U/L 16 - 63 U/L [facility] Anion gap [Moles/Vol] 13.2 mmol/L NO [facility] AST [Catalytic activity/Vol] 21 U/L 15 - 37 U/L [facility] Bilirubin [Mass/Vol] 1.0 mg/dL 0.2 - 1 .0 mg/dL [facility] Calcium [Mass/Vol] 8.8 mg/dL 8.5 - 10. 1 mg/dL [facility] Chloride [Moles/Vol] 103 mmol/L 98 - 10 7 mmol/L [facility] CO2 [Moles/Vol] 27.3 mmol/L 21.0 - 32.0 mmol/L [facility] Creatinine [Mass/Vol] 1.09 mg/dL 0.70 - 1.30 mg/dL [facility] GFR/1.73 sq M.predicted CKD-EPI (S/P/Bld) [Vol rate/Area] >60 60 - PINF [facility] Globulin (S) [Mass/Vol] 4.0 g/dL N [facility] Glucose [Mass/Vol] 147 mg/dL High 74 - 106 mg/dL [facility] Potassium [Moles/Vol] 4.5 mmol/L 3.5 - 5.1 mmol/L [facility] Protein [Mass/Vol] 7.3 g/dL 6.4 - 8.2 g/dL [facility] Sodium [Moles/Vol] 139 mmol/L 136 - 145 mmol/L [facility] EGFR-NON AF [place] >60 60 - PINF [facility] Urea nitrogen [Mass/Vol] 28.0 mg/dL High 7.0 - 18.0 mg/dL [facility] Urea nitrogen/Creatinine [Mass ratio] 25.7 mg/mg [facility] No Panel Informationon 01-24 Interpretation and review of laboratory results Abnormal [facility] Glucose Glucometer (BldC) [M ass/Vol]Ordered By: Silver Briceño on 09-10-2022 Glucose [Mass/Vol] 137 mg/dL [facility] Comment on above: Random Glucose Refer ence Range is dependent on time and content of last meal. Glucose of more than 200 mg/dL in a nonstressed, ambulatory subject supports the diagnosis of Diabetes Mellitus. Glucose [Mass/Vol] 131 mg/dL [facility] Comment on above: Random Glucose Refer ence Range is dependent on time and content of last meal. Glucose of more than 200 mg/dL in a nonstressed, ambulatory subject supports the diagnosis of Diabetes Mellitus. Glucose Poct Glucometerson 0 09-10-2022 Glucose [Mass/Vol] 137 mg/dL Normal [facility] Comment on above: Result Comment: [facility] Glucose Reference Range is dependent on time and content of last meal. Glucose of more than 200 mg/dL in a nonstressed, ambulatory subject supports the diagnosis of Diabetes Mellitus. PERFORMED BY: [address] [place] [address] PATHOLOGIST SALES REPRESENTATIVE [employer] TEOFILO KHAN M.D. Performed By: #### G RUDOLPH #### Point of Care testing , Glucose [Mass/Vol] 131 mg/dL Normal [facility] Comment on above: Result Comment: [facility] Glucose Reference Range is dependent on time and content of last meal. Glucose of more than 200 mg/dL in a nonstressed, ambulatory subject supports the diagnosis of Diabetes Mellitus. PERFORMED BY: [place] [address] PATHOLOGIST SALES REPRESENTATIVE [employer] TEOFILO KHAN M.D. Performed By: #### G RUDOLPH #### Point of Care testing , Basic Metabolic Panelon 04-0 Anion gap [Moles/Vol] 13.5 mmol/L Normal 6.0-15.0 [facility] Comment on above: Performed By: #### C BC, BMP #### [address] Calcium [Mass/Vol] 9.4 mg/dL Normal 8.6-10.3 [facility] Comment on above: Result Comment: PERF ORMED BY: [place] [address] PATHOLOGIST SALES REPRESENTATIVE [employer] TEOFILO KHAN M.D. Performed By: #### C BC, BMP #### [address] Chloride [Moles/Vol] 102 mmol/L Normal 98-107 [facility] Comment on above: Performed By: #### C BC, BMP #### [address] CO2 [Moles/Vol] 28.5 mmol/L Normal 21.0-31.0 [facility] Comment on above: Performed By: #### C BC, BMP #### [address] Creatinine [Mass/Vol] 0.99 mg/dL Normal 0.70-1.30 [facility] Comment on above: Performed By: #### C BC, BMP #### [facility] [address] [place] [address] [place] GFR/1.73 sq M.predicted MDRD (S/P/Bld) [Vol rate/Area] mL/min/{1.73_m2} Normal [facility] Comment on above: Performed By: #### C BC, BMP #### [facility] [address] Glucose [Mass/Vol] 114 mg/dL High 70-100 [facility] Comment on above: Result Comment: [facility] Glucose Reference Range is dependent on time and content of last meal. Glucose of more than 200 mg/dL in a nonstressed, ambulatory subject supports the diagnosis of Diabetes Mellitus. ADA recommended reference range Performed By: #### C BC, BMP #### [facility] [address] Potassium [Moles/Vol] 4.0 mmol/L Normal 3.5-5.1 [facility] Comment on above: Performed By: #### C BC, BMP #### [facility] [address] Sodium [Moles/Vol] 140 mmol/L Normal 136-145 [facility] Comment on above: Performed By: #### C SAI, BMP #### [facility] [address] Urea nitrogen [Mass/Vol] 21 mg/dL Normal 7-25 [facility] Comment on above: Performed By: #### C SAI, BMP #### [facility] [address] Basophils Auto (Bld) [#/Vol] Ordered By: Silver Briceño on 08-30-2022 Basophils (Bld) [#/Vol] 0.0 10*3/uL 0.0-0.2 [facility] Basophils/100 WBC Auto (Bld) Ordered By: Silver Briceño on 08-30-2022 Basophils/100 WBC (Bld) 0.7 % . [facility] Calcium [Mass/volume] in Ser um or PlasmaOrdered By: Silver Briceño on 08-30-2022 Calcium [Mass/Vol] 9.4 mg/dL 8.6-10.3 [facility] Carbon dioxide, total [Moles /volume] in Serum or PlasmaOrdered By: Silver Briceño on 08-30-2022 CO2 [Moles/Vol] 28.5 mmol/L 21.0-31.0 [facility] Chloride [Moles/volume] in S gela or PlasmaOrdered By: Silver Briceño on 08-30-2022 Chloride [Moles/Vol] 102 mmol/L 98-107 [facility] Complete Blood Count Auto Di ffon 08-30-2022 Basophils (Bld) [#/Vol] 0.0 10*3/uL Normal 0.0-0.2 [facility] Comment on above: Result Comment: PERF ORMED BY: [place] [address] PATHOLOGIST SALES REPRESENTATIVE [employer] TE[employer] KHAN M.D. Performed By: #### C BC, BMP #### [address] Basophils/100 WBC (Bld) 0.7 % Normal . [facility] Comment on above: Performed By: #### C BC, BMP #### [address] [address] Eosinophils (Bld) [#/Vol] 0.3 10*3/uL Normal 0.0-0.45 [facility] Comment on above: Performed By: #### C BC, BMP #### [address] Eosinophils/100 WBC (Bld) 6.1 % Normal . [facility] Comment on above: Performed By: #### C BC, BMP #### [facility] [address] [place] [address] Erythrocyte distribution width (RBC) [Ratio] 14.5 % Normal 12.0-14.8 [facility] Comment on above: Performed By: #### C BC, BMP #### [address] Hematocrit (Bld) [Volume fraction] 36.5 % Low 38.8-50.0 [facility] Comment on above: Performed By: #### C BC, BMP #### [address] Hemoglobin (Bld) [Mass/Vol] 12.5 g/dL Low 13.0-17.0 [facility] Comment on above: Performed By: #### C BC, BMP #### [facility] [address] [place] [address] [place] Lymphocytes (Bld) [#/Vol] 1.8 10*3/uL Normal 1.00-4.8 [facility] Comment on above: Performed By: #### C BC, BMP #### [facility] [address] Lymphocytes/100 WBC (Bld) 35.5 % Normal . [facility] Comment on above: Performed By: #### C BC, BMP #### [facility] [address] MCH (RBC) [Entitic mass] 29.2 pg Normal 27.5-35.2 [facility] Comment on above: Performed By: #### C BC, BMP #### [facility] [address] MCV (RBC) [Entitic vol] 85.1 fL Normal 83.5-101 [facility] Comment on above: Performed By: #### C BC, BMP #### [facility] [address] Mean Corpuscular HGB Conc 34.3 g/dL Normal 32.5-35.6 [facility] Comment on above: Performed By: #### C BC, BMP #### [facility] [address] [place] [address] [place] Monocytes (Bld) [#/Vol] 0.4 10*3/uL Normal 0.0-0.8 [facility] Comment on above: Performed By: #### C BC, BMP #### [facility] [address] [place] [address] [place] Monocytes/100 WBC (Bld) 8.2 % Normal . [facility] Comment on above: Performed By: #### C BC, BMP #### [facility] [address] Neutrophils (Bld) [#/Vol] 2.5 10*3/uL Normal 1.8-7.7 [facility] Comment on above: Performed By: #### C BC, BMP #### [facility] [address] [place] [address] [place] Neutrophils/100 WBC (Bld) 49.5 % Normal . [facility] Comment on above: Performed By: #### C BC, BMP #### [facility] [address] [place] [address] [place] NRBC% 0.2 /100{WBC} Normal 0-0.5 [facility] Comment on above: Performed By: #### C BC, BMP #### [facility] [address] Platelet mean volume (Bld) [Entitic vol] 8.8 fL Normal 6.6-10.1 [facility] Comment on above: Performed By: #### C BC, BMP #### [facility] [address] [place] [address] [place] Platelets (Bld) [#/Vol] 155 10*3/uL Normal 150-450 [facility] Comment on above: Performed By: #### C BC, BMP #### [facility] [address] [place] [address] [place] RBC (Bld) [#/Vol] 4.29 10*6/uL Normal 3.90-5.60 [facility] Comment on above: Performed By: #### C BC, BMP #### [facility] [address] [place] [id number] [place] WBC (Bld) [#/Vol] 5.1 10*3/uL Normal 4.1-10.5 [facility] Comment on above: Performed By: #### C BC, BMP #### [facility] [address] [place] [address] [place] Creatinine [Mass/volume] in Serum or PlasmaOrdered By: Silver Briceño on 08-30-2022 Creatinine [Mass/Vol] 0.99 mg/dL 0.70-1.30 [facility] ECG 12 lead ECGon 08-30-2022 ECG 12 lead ECG [facility] [address] [place] [address] Electrocardiograph Report Signed Patient: Dante Dietz MR#: [id number] : 1965 Acct:[id number] Age/Sex: 57 / M ADM Date: 08/30/22 Loc: PS Room: Type: [facility] Attending Dr: Silver Briceño DO Ordering [...] [facility] Transcribed By: MUS Signed By Leo Love MD 08/31/22 1223 Normal [facility] Eosinophils Auto (Bld) [#/Vo l]Ordered By: Silver Briceño on 08-30-2022 Eosinophils (Bld) [#/Vol] 0.3 10*3/uL 0.0-0.45 [facility] Eosinophils/100 WBC Auto (Bl d)Ordered By: Silver Briceño on 08-30-2022 Eosinophils/100 WBC (Bld) 6.1 % . [facility] Erythrocyte distribution wid th Auto (RBC) [Ratio]Ordered By: Silver Briceño on 08-30-2022 Erythrocyte distribution width (RBC) [Ratio] 14.5 % 12.0-14.8 [facility] Glucose [Mass/volume] in Ser um or PlasmaOrdered By: Silver Briceño on 08-30-2022 Glucose [Mass/Vol] 114 mg/dL 70-100 [facility] Comment on above: ADA recommended refe rence rangeRandom Glucose Reference Range is dependent on time and content of last meal. Glucose of more than 200 mg/dL in a nonstressed, ambulatory subject supports the diagnosis of Diabetes Mellitus. Hematocrit Auto (Bld) [Volum e fraction]Ordered By: Silver Briceño on 08-30-2022 Hematocrit (Bld) [Volume fraction] 36.5 % 38.8-50.0 [facility] Hemoglobin [Mass/volume] in BloodOrdered By: Silver Briceño on 08-30-2022 Hemoglobin (Bld) [Mass/Vol] 12.5 g/dL 13.0-17.0 [facility] Leukocytes [#/volume] correc shashi for nucleated erythrocytes in Blood by Automated counOrdered By: Silver Briceño on 08-30-2022 WBC corrected for nucl RBC Auto (Bld) [#/Vol] 5.1 10*3/uL 4.1-10.5 [facility] Lymphocytes Auto (Bld) [#/Vo l]Ordered By: Silver Briceño on 08-30-2022 Lymphocytes (Bld) [#/Vol] 1.8 10*3/uL 1.00-4.8 [facility] Lymphocytes/100 WBC Auto (Bl d)Ordered By: Silver Briceño on 08-30-2022 Lymphocytes/100 WBC (Bld) 35.5 % . [facility] MCH Auto (RBC) [Entitic mass ]Ordered By: Silver Briceño on 08-30-2022 MCH (RBC) [Entitic mass] 29.2 pg 27.5-35.2 [facility] MCHC Auto (RBC) [Mass/Vol]Or dered By: Silver Briceño on 08-30-2022 MCHC (RBC) [Mass/Vol] 34.3 g/dL 32.5-35.6 [facility] MCV Auto (RBC) [Entitic vol] Ordered By: Silver Briceño on 08-30-2022 MCV (RBC) [Entitic vol] 85.1 fL 83.5-101 [facility] Monocytes Auto (Bld) [#/Vol] Ordered By: Silver Briceño on 08-30-2022 Monocytes (Bld) [#/Vol] 0.4 10*3/uL 0.0-0.8 [facility] Monocytes/100 WBC Auto (Bld) Ordered By: Sliver Briceño on 04-06-2023 Monocytes/100 WBC (Bld) 8.2 % . [facility] Neutrophils Auto (Bld) [#/Vo l]Ordered By: Silver Briceño on 08-30-2022 Neutrophils (Bld) [#/Vol] 2.5 10*3/uL 1.8-7.7 [facility] Neutrophils/100 WBC Auto (Bl d)Ordered By: Silver Briceño on 08-30-2022 Neutrophils/100 WBC (Bld) 49.5 % . [facility] No Panel InformationOrdered By: Silver Briceño on 08-30-2022 Estimated GFR (CKD-EPI) > 60.0 mL/Min [facility] Creatinine Clearance (Chem N/A [facility] Nucleated erythrocytes [Pres ence] in Blood by Automated countOrdered By: Silver Briceño on 08-30-2022 Nucleated RBC Auto Ql (Bld) 0.2 /100{WBC} 0-0.5 [facility] Platelet mean volume Auto (B ld) [Entitic vol]Ordered By: Silver Briceño on 08-30-2022 Platelet mean volume (Bld) [Entitic vol] 8.8 fL 6.6-10.1 [facility] Platelets Auto (Bld) [#/Vol] Ordered By: Silver Briceño on 08-30-2022 Platelets (Bld) [#/Vol] 155 10*3/uL 150-450 [facility] Potassium [Moles/volume] in Serum or PlasmaOrdered By: Silver Briceño on 08-30-2022 Potassium [Moles/Vol] 4.0 mmol/L 3.5-5.1 [facility] RBC Auto (Bld) [#/Vol]Ordere d By: Silver Briceño on 08-30-2022 RBC (Bld) [#/Vol] 4.29 10*6/uL 3.90-5.60 [facility] Serum or plasma anion gap de terminationOrdered By: Silver Briceño on 08-30-2022 Anion gap [Moles/Vol] 13.5 mmol/L 6.0-15.0 [facility] Sodium [Moles/volume] in Ser um or PlasmaOrdered By: Silver Brcieño on 08-30-2022 Sodium [Moles/Vol] 140 mmol/L 136-145 [facility] Urea nitrogen [Mass/volume] in Serum or PlasmaOrdered By: Silver Briceño on 08-30-2022 Urea nitrogen [Mass/Vol] 21 mg/dL 7-25 [facility] WBC Auto (Bld) [#/Vol]Ordere d By: Silver Briceño on 08-30-2022 WBC (Bld) [#/Vol] 5.1 10*3/uL 4.1-10.5 [facility] GLYCOHEMOGLOBIN A1Con 2022 ADA RECOMMENDATION SEE BELOW Normal [facility] Comment on above: Result Comment: ADA RECOMMENDED LIMIT 4.0 - 6.0 ADA THERAPEUTIC TARGET < 7.0 ACTION SUGGESTED > 7.0 Performed By: #### A 1C #### [facility] [address] [place] [address] Dr. Idania Tai Glucose [Mass/Vol] 243 mg/dL Normal [facility] Comment on above: Performed By: #### A 1C #### [facility] [address] [place] [address] [address] Idania Tai HbA1c (Bld) [Mass fraction] 10.1 % Critically high 4.5-6.2 [facility] Comment on above: Performed By: #### A 1C #### [facility] [address] [place] [address] Dr. Idania Tai LIPID PROFILEon 07-07-2022 CHOL-HDL RATIO NORM SEE BELOW Normal [facility] Comment on above: Result Comment: 3.3 - 4.4 LOW RISK 4.4 - 7.1 AVERAGE RISK 7.1 - 11.0 MODERATE RISK >11.0 HIGH RISK Performed By: #### B MP, LIPID #### [facility] [address] [place] [address] [address] Idania Tai Cholesterol [Mass/Vol] 172 mg/dL Normal <=200 Th [facility] Comment on above: Performed By: #### B MP, LIPID #### [facility] [address] [place] [address] Dr. Idania Tai Cholesterol in HDL [Mass/Vol] 48 mg/dL Normal 40-60 [facility] Comment on above: Performed By: #### B MP, LIPID #### [facility] [address] [place] [address] [address] Idania Tai Cholesterol in LDL [Mass/Vol] 95.6 mg/dL Normal [facility] Comment on above: Performed By: #### B MP, LIPID #### [facility] [address] [place] [address] [address] Idania Tai Cholesterol.total/Choles terol in HDL [Mass ratio] 3.6 {ratio} Normal [facility] Comment on above: Performed By: #### B MP, LIPID #### [facility] [address] [place] [address] Dr. Idania Tai HDL NORMAL > or = 60 mg/dl - LOW CARDIOVASCULAR RISK <40 mg/dl - HIGH CARDIOVASCULAR RISK Normal [facility] Comment on above: Performed By: #### B MP, LIPID #### [facility] [address] [place] [address] Dr. Idania Tai LDL CALC NORMAL SEE BELOW Normal [facility] Comment on above: Result Comment: <100 mg/dl OPTIMAL 100 - 129 mg/dl NEAR OR ABOVE OPTIMAL 130 - 159 mg/dl BORDERLINE HIGH 160 - 189 mg/dl HIGH >190 mg/dl VERY HIGH Performed By: #### B MP, LIPID #### [facility] [address] [place] [address] Dr. Idania Tai Triglyceride [Mass/Vol] 142 mg/dL Normal <=150 T [facility] Comment on above: Performed By: #### B MP, LIPID #### [facility] [address] [place] [address] Dr. Idania Tai VLDL CALC 28.4 mg/dL Normal [facility] Comment on above: Performed By: #### B MP, LIPID #### [facility] [address] [place] [address] Dr. Idania Tai PROF CHEM 8 (BAS METB)on Anion gap [Moles/Vol] 11.0 mmol/L Normal [facility] Comment on above: Performed By: #### B MP, LIPID #### [facility] [address] [place] [address] [address] Idania Tai Calcium [Mass/Vol] 9.1 mg/dL Normal 8.5-10.1 [facility] Comment on above: Performed By: #### B MP, LIPID #### [facility] [address] [place] [address] Dr. Idania Tai Chloride [Moles/Vol] 100 mmol/L Normal 98-107 [facility] Comment on above: Performed By: #### B MP, LIPID #### [facility] [address] [place] [address] [address] Idania Tai CO2 [Moles/Vol] 32.6 mmol/L Critically high 21.0-32.0 [facility] Comment on above: Performed By: #### B MP, LIPID #### [facility] [address] [place] [address] Dr. Idania Tai Creatinine [Mass/Vol] 0.81 mg/dL Normal 0.70-1.30 [facility] Comment on above: Performed By: #### B MP, LIPID #### [facility] [address] [place] [address] Dr. Idania Tai EGFR-AF MOSOTHO >60 Normal >=60 [facility] Comment on above: Performed By: #### B MP, LIPID #### [facility] [address] [place] [address] Dr. Idania Tai EGFR-NON AF MOSOTHO >60 Normal >=60 [facility] Comment on above: Performed By: #### B MP, LIPID #### [facility] [address] [place] [address] [address] Idania Tai Glucose [Mass/Vol] 157 mg/dL Critically high 74-106 [facility] Comment on above: Performed By: #### B MP, LIPID #### [facility] [address] [place] [address] [address] Idania Tai Potassium [Moles/Vol] 3.6 mmol/L Normal 3.5-5.1 [facility] Comment on above: Performed By: #### B MP, LIPID #### [facility] [address] [place] [address] [address] Idania Tai Sodium [Moles/Vol] 140 mmol/L Normal 136-145 [facility] Comment on above: Performed By: #### B MP, LIPID #### [facility] [address] [place] [address] [address] Idania Tai Urea nitrogen [Mass/Vol] 16.0 mg/dL Normal 7.0-18.0 [facility] Comment on above: Performed By: #### B MP, LIPID #### [facility] [address] [place] [address] [address] Idania Tai Urea nitrogen/Creatinine [Mass ratio] 19.8 mg/mg Normal [facility] Comment on above: Performed By: #### B MP, LIPID #### [facility] [address] [place] [address] Dr. Idania Tai PROF CHEM 8 (BAS METB)on Anion gap [Moles/Vol] 16.1 mmol/L Normal [facility] Comment on above: Performed By: #### B MP #### [facility] [address] [place] [address] [address] Idania Tai Calcium [Mass/Vol] 9.4 mg/dL Normal 8.5-10.1 [facility] Comment on above: Performed By: #### B MP #### [facility] [address] [place] [address] [address] Idania Tai Chloride [Moles/Vol] 98 mmol/L Normal 98-107 [facility] Comment on above: Performed By: #### B MP #### [facility] [address] [place] [address] [address] Idania Tai CO2 [Moles/Vol] 26.0 mmol/L Normal 21.0-32.0 [facility] Comment on above: Performed By: #### B MP #### [facility] [address] [place] [address] Dr. Idania Tai Creatinine [Mass/Vol] 0.78 mg/dL Normal 0.70-1.30 [facility] Comment on above: Performed By: #### B MP #### [facility] [address] [place] [address] [address] Idania Tai EGFR-AF MOSOTHO >60 Normal >=60 [facility] Comment on above: Performed By: #### B MP #### [facility] [id number] Idania Tai EGFR-NON AF MOSOTHO >60 Normal >=60 [facility] Comment on above: Performed By: #### B MP #### [facility] [address] [place] [address] [address] Idania Tai Glucose [Mass/Vol] 131 mg/dL Critically high 74-106 [facility] Comment on above: Performed By: #### B MP #### [facility] [address] [place] [address] [address] Idania Tai Potassium [Moles/Vol] 4.1 mmol/L Normal 3.5-5.1 [facility] Comment on above: Performed By: #### B MP #### [facility] [address] [place] [address] [address] Idania Tai Sodium [Moles/Vol] 136 mmol/L Normal 136-145 [facility] Comment on above: Performed By: #### B MP #### [facility] [address] [place] [address] [address] Idania Tai Urea nitrogen [Mass/Vol] 19.0 mg/dL Critically high 7.0-18 .0 [facility] Comment on above: Performed By: #### B MP #### [facility] [address] [place] [address] [address] Idania Tai Urea nitrogen/Creatinine [Mass ratio] 24.4 mg/mg Normal [facility] Comment on above: Performed By: #### B MP #### [facility] [id number] Idania Tai Glucose Glucometer (BldC) [M ass/Vol]Ordered By: Sav Andrews on 12-22-2021 Glucose [Mass/Vol] 113 mg/dL [facility] Comment on above: Random Glucose Refer ence Range is dependent on time and content of last meal. Glucose of more than 200 mg/dL in a nonstressed, ambulatory subject supports the diagnosis of Diabetes Mellitus. Glucose Poct Glucometerson 0 12-22-2021 Glucose [Mass/Vol] 113 mg/dL Normal [facility] Comment on above: Result Comment: [place] om Glucose Reference Range is dependent on time and content of last meal. Glucose of more than 200 mg/dL in a nonstressed, ambulatory subject supports the diagnosis of Diabetes Mellitus. PERFORMED BY: [facility] [address] [place] [address] PATHOLOGIST SALES REPRESENTATIVE [employer] TEOFIOL KHAN M.D. Performed By: #### G LUBASAI #### Point of Care testing , COVID-19 [...] developed and its performance characteristic determined by [employer] and validated at [facility]. This test has not been FDA [...] for SARS Antigen by [facility] PERFORMED BY: [place] [address] PATHOLOGIST SALES REPRESENTATIVE [employer] TEOFILO KHAN M.D. Normal [facility] Comment on above: Performed By: #### C OVID-19 MAYRA, SOFIANEG #### [address] COVID-19 SOFIAOrdered By: Bebe Andrews on 12-20-2021 SARS-CoV+SARS-CoV-2 (COVID-19) Ag IA.rapid Ql (Resp) Negative Negative [facility] Comment on above: This is a duplicate Mayra SARS Antigen (SIN) result to be used for statistical tracking purpose only. No Panel InformationOrdered By: Sav Andrews on 12-20-2021 SARS Antigen (LFIA) [facility] Mayra Ag Negativeon 12-21-19 22 Mayra Ag Negative Negative Normal Negative [facility] Comment on above: Result Comment: This is a duplicate Mayra SARS Antigen (SIN) result to be used for statistical tracking purpose only. PERFORMED BY: [place] [address] PATHOLOGIST SALES REPRESENTATIVE [employer] TE[employer] KHAN M.D. Performed By: #### C OVID-19 MAYRA, SOFIANEG #### [address] ANKLE RT WO CONon 022 [...] severe tricompartmental osteoarthropathy of the knee with [id number]-[id number] articulation of the lateral compartment. SOFT TISSUES: Negative. No visible soft tissue swelling. EFFUSION: None visible. OTHER: Negative. IMPRESSION: Progression of subchondral degenerative cystic changes of the tibial plafond and calcaneus Moderate to severe knee osteoarthritis with tcri-nr-yuvi articulation of the lateral compartment Electronically authenticated by: GERA BLUM Date: 2021-11-14 16:32 Normal [facility] CBC AUTO DIFFon 09-11-2021 BASO # 0.1 103/ul Normal 0.0-0.1 [facility] Comment on above: Performed By: #### C BC ####[facility] [address] [place], [place] [address]Dr. Idania Tai Basophils/100 WBC (Bld) 0.8 % Normal 0.2-2.0 [facility] Comment on above: Performed By: #### C BC ####[facility] [address] [place], [place] [address]DrAlly Tai EO # 0.2 103/ul Normal 0.0-0.7 [facility] Comment on above: Performed By: #### C BC ####[facility] [address] [place], [place] [address]Dr. Idania Tai Eosinophils/100 WBC (Bld) 2.2 % Normal 0.9-7.0 [facility] Comment on above: Performed By: #### C BC ####[facility] [address] [place] [address]DrAlly Tai Erythrocyte distribution width (RBC) [Ratio] 13.1 % Normal 11.0-15.0 [facility] Comment on above: Performed By: #### C BC ####[facility] [address] [place], [place] [address]DrAlly Tai Hematocrit (Bld) [Volume fraction] 44.5 % Normal 42.0-54.0 [facility] Comment on above: Performed By: #### C BC ####[facility] [address] [place] [address]Dr. Idania Tai Hemoglobin (Bld) [Mass/Vol] 14.9 g/dL Normal 14.0-18.0 [facility] Comment on above: Performed By: #### C BC ####[facility] [address] [place] [address]Dr. Idania Tai IG # 0.13 10e3/ul Critically high 0.00-0.03 [facility] Comment on above: Performed By: #### C BC ####[facility] [address] [place] [address]Dr. Idania Tai IG % 1.5 % Critically high 0.0-0.5 [facility] Comment on above: Performed By: #### C BC ####[facility] [address] [place], [place] [address]Dr. Idania Tai LYMPH # 2.4 103/ul Normal 1.2-3.8 [facility] Comment on above: Performed By: #### C BC ####[facility] [address] [place] [address]Dr. Idania Tai Lymphocytes/100 WBC (Bld) 27.7 % Normal 20.5-60.0 [facility] Comment on above: Performed By: #### C BC ####[facility] [address] [place] [address]Dr. Idania Tai MANUAL DIFF REQ NO Normal [facility] Comment on above: Performed By: #### C BC ####[facility] [address] [place], [place] [address]Dr. Idania Tai MCH (RBC) [Entitic mass] 28.9 pg Normal 25.9-34.0 [facility] Comment on above: Performed By: #### C BC ####[facility] [address] [place], [place] [address]Dr. Idania Tai MCHC (RBC) [Mass/Vol] 33.5 g/dL Normal 29.9-35.2 [facility] Comment on above: Performed By: #### C BC ####[facility] [address] [place] [id number]. Idania Tai MCV (RBC) [Entitic vol] 86.4 fL Normal 80.0-94.0 [facility] Comment on above: Performed By: #### C BC ####[facility] [address] [place] [id number]. Idania Tai MONO # 0.6 103/ul Normal 0.3-0.8 [facility] Comment on above: Performed By: #### C BC ####[facility] [address] [place], [place] [address]Dr. Idania Zaire Monocytes/100 WBC (Bld) 6.4 % Normal 1.7-12.0 [facility] Comment on above: Performed By: #### C BC ####[facility] [address] [place], [place] [address]Dr. Idania Tai NEUT # 5.3 103/ul Normal 1.4-6.5 [facility] Comment on above: Performed By: #### C BC ####[facility] [address] [place], [place] [address]Dr. Idania Zaire Neutrophils/100 WBC (Bld) 61.4 % Normal 43.0-75.0 [facility] Comment on above: Performed By: #### C BC ####[facility] [address] [place], [place] [address]Dr. Idania Zaire Platelet mean volume (Bld) [Entitic vol] 9.7 fL Normal 9.5-13.5 [facility] Comment on above: Performed By: #### C BC ####[facility] [address] [place], [place] [address]Dr. Idania Zaire PLT 219 103/ul Normal 150-450 [facility] Comment on above: Performed By: #### C BC ####[facility] [address] [place] [id number]. Idania Tai RBC 5.15 106/ul Normal 4.70-6.10 [facility] Comment on above: Performed By: #### C BC ####[facility] [address] [place] [id number]. Idania Tai WBC 8.6 103/ul Normal 4.0-11.0 [facility] Comment on above: Performed By: #### C BC ####[facility] [address] [place] [id number]. Idania Tai GLYCOHEMOGLOBIN A1Con 2021 ADA RECOMMENDATION ADA THERAPEUTIC TARGET 6.0 - 7.0 ACTION SUGGESTED > 7.0 Normal [facility] Comment on above: Performed By: #### A 1C ####[facility] [address] [place] [address]Dr. Idania Tai Glucose [Mass/Vol] 128 mg/dL Normal [facility] Comment on above: Performed By: #### A 1C ####[facility] [address] [place] [address]Dr. Idania Tai HbA1c (Bld) [Mass fraction] 6.1 % Critically high <=6.0 [facility] Comment on above: Performed By: #### A 1C ####[facility] [address] [place] [address]DrAlly Tai LIPID PROFILEon 09-11-2021 CHOL-HDL RATIO NORM SEE BELOW Normal [facility] Comment on above: Result Comment: 3.3 - 4.4 LOW RISK 4.4 - 7.1 AVERAGE RISK 7.1 - 11.0 MODERATE RISK >11.0 HIGH RISK Performed By: #### L IPID, CMP #### [facility] [address] [place] [address] [address] Idania Tai Cholesterol [Mass/Vol] 175 mg/dL Normal <=200 [facility] Comment on above: Performed By: #### L IPID, CMP #### [facility] [address] [place] [address] [address] Idania Tai Cholesterol in HDL [Mass/Vol] 54 mg/dL Normal 40-60 [facility] Comment on above: Performed By: #### L IPID, CMP #### [facility] [address] [place] [address] [address] Idania Tai Cholesterol in LDL [Mass/Vol] 87.2 mg/dL Normal [facility] Comment on above: Performed By: #### L IPID, CMP #### [facility] [address] [place] [address] Dr. Idania Tai Cholesterol.total/Choles terol in HDL [Mass ratio] 3.2 {ratio} Normal [facility] Comment on above: Performed By: #### L IPID, CMP #### [facility] [address] [place] [address] Dr. Idania Tai HDL NORMAL > or = 60 mg/dl - LOW CARDIOVASCULAR RISK <40 mg/dl - HIGH CARDIOVASCULAR RISK Normal [facility] Comment on above: Performed By: #### L IPID, CMP #### [facility] [address] [place] [address] Dr. Idania Tai LDL CALC NORMAL SEE BELOW Normal [facility] Comment on above: Result Comment: <100 mg/dl OPTIMAL 100 - 129 mg/dl NEAR OR ABOVE OPTIMAL 130 - 159 mg/dl BORDERLINE HIGH 160 - 189 mg/dl HIGH >190 mg/dl VERY HIGH Performed By: #### L IPID, CMP #### [facility] [address] [place] [address] Dr. Idania Tai Triglyceride [Mass/Vol] 169 mg/dL Critically high <=150 [facility] Comment on above: Performed By: #### L IPID, CMP #### [facility] [address] [place] [address] Dr. Idania Tai VLDL CALC 33.8 mg/dL Normal [facility] Comment on above: Performed By: #### L IPID, CMP #### [facility] [address] [address] [address] Idania Tai MICROALBUMIN, RAND URon 08-25 mALB 1.9 mg/L Normal <=30.0 [facility] Comment on above: Performed By: #### M ALBR #### [facility] [address] [place] [address] Dr. Idania Tai PROF 14(COMP METB)on 022 Albumin [Mass/Vol] 3.7 g/dL Normal 3.4-5.0 [facility] Comment on above: Performed By: #### L IPID, CMP #### [facility] [address] [address] [address] Idania Tai Albumin/Globulin [Mass ratio] 0.9 {ratio} Normal [facility] Comment on above: Performed By: #### L IPID, CMP #### [facility] [address] [address] [address] Idania Tai ALP [Catalytic activity/Vol] 73 U/L Normal 46-116 [facility] Comment on above: Performed By: #### L IPID, CMP #### [facility] [address] [address] [address] Idania Tai ALT [Catalytic activity/Vol] 68 U/L Critically high 16-63 [facility] Comment on above: Performed By: #### L IPID, CMP #### [facility] [address] [address] [address] Idania Tai Anion gap [Moles/Vol] 10.2 mmol/L Normal [facility] Comment on above: Performed By: #### L IPID, CMP #### [facility] [address] [place] [address] Dr. Idania Tai AST [Catalytic activity/Vol] 30 U/L Normal 15-37 [facility] Comment on above: Performed By: #### L IPID, CMP #### [facility] [address] [address] [address] Idania Tai Bilirubin [Mass/Vol] 1.0 mg/dL Normal 0.2-1.3 [facility] Comment on above: Performed By: #### L IPID, CMP #### [facility] [address] [address] [address] Idania Tai Calcium [Mass/Vol] 8.5 mg/dL Normal 8.5-10.1 [facility] Comment on above: Performed By: #### L IPID, CMP #### [facility] [address] [address] [address] Idania Tai Chloride [Moles/Vol] 101 mmol/L Normal 98-107 [facility] Comment on above: Performed By: #### L IPID, CMP #### [facility] [address] [address] [address] Idania Tai CO2 [Moles/Vol] 31.6 mmol/L Critically high 22.0-30.0 [facility] Comment on above: Performed By: #### L IPID, CMP #### [facility] [address] [address] [address] Idania Tai Creatinine [Mass/Vol] 0.67 mg/dL Normal 0.66-1.25 [facility] Comment on above: Performed By: #### L IPID, CMP #### [facility] [address] [place] [address] Dr. Idania Tai EGFR-AF MOSOTHO >60 Normal >=60 [facility] Comment on above: Performed By: #### L IPID, CMP #### [facility] [address] [place] [address] Dr. Idania Tai EGFR-NON AF MOSOTHO >60 Normal >=60 [facility] Comment on above: Performed By: #### L IPID, CMP #### [facility] [address] [place] [address] Dr. Idania Tai Globulin (S) [Mass/Vol] 4.0 g/dL Normal [facility] Comment on above: Performed By: #### L IPID, CMP #### [facility] [address] [address] [address] Idania Tai Glucose [Mass/Vol] 114 mg/dL Critically high 74-106 [facility] Comment on above: Performed By: #### L IPID, CMP #### [facility] [address] [address] [address] Idania Tai Potassium [Moles/Vol] 4.8 mmol/L Normal 3.4-5.0 [facility] Comment on above: Performed By: #### L IPID, CMP #### [facility] [address] [place] [address] Dr. Idania Tai Protein [Mass/Vol] 7.7 g/dL Normal 6.1-8.2 [facility] Comment on above: Performed By: #### L IPID, CMP #### [facility] [address] [address] [address] Idania Tai Sodium [Moles/Vol] 138 mmol/L Normal 137-145 [facility] Comment on above: Performed By: #### L IPID, CMP #### [facility] [address] [address] [address] Idania Tai Urea nitrogen [Mass/Vol] 12.0 mg/dL Normal 7.0-18.0 [facility] Comment on above: Performed By: #### L IPID, CMP #### [facility] [address] [address] [address] Idania Tai Urea nitrogen/Creatinine [Mass ratio] 17.9 mg/mg Normal [facility] Comment on above: Performed By: #### L IPID, CMP #### [facility] [address] [address] [address] Idania Tai Vital Signs Date Time Vital Sign Value Performing Clinician Facility 07-29-2024 15:27-0500 Body height 167.6 cm Luci Rios RISK MANAGEMENT CONSULTANT Work Phone: [facility] 07-29-2024 15:27-0500 Body mass index (BMI) [Ratio] 39.29 kg/m2 Luci Rios RISK MANAGEMENT CONSULTANT Work Phone: [facility] 07-29-2024 15:27-0500 Body temperature 97.81 [degF] Luci Rios RISK MANAGEMENT CONSULTANT Work Phone: [facility] 07-29-2024 15:27-0500 Body weight 110.41 kg Luci Rios RISK MANAGEMENT CONSULTANT Work Phone: [facility] 07-29-2024 15:27-0500 Diastolic blood pressure 120 mm[Hg] Luci Rios RISK MANAGEMENT CONSULTANT Work Phone: [facility] 07-29-2024 15:27-0500 Heart rate 76 /min Lucimaddy Goinsholz RISK MANAGEMENT CONSULTANT Work Phone: [facility] 07-29-2024 15:27-0500 Respiratory rate 20 /min Lucimaddy Goinsholz RISK MANAGEMENT CONSULTANT Work Phone: [facility] 07-29-2024 15:27-0500 SaO2% (BldA) [Mass fraction] 97 % Lucimaddy Goinsholz RISK MANAGEMENT CONSULTANT Work Phone: [facility] 07-29-2024 15:27-0500 Systolic blood pressure 172 mm[Hg] Lucimaddy Goinsholz RISK MANAGEMENT CONSULTANT Work Phone: [facility] 04-27-2024 15:05-0500 Body height 167.6 cm Marquis Velasquez RISK MANAGEMENT CONSULTANT Work Phone: [facility] 04-27-2024 15:05-0500 Body mass index (BMI) [Ratio] 38.41 kg/m2 Marquis Velasquez RISK MANAGEMENT CONSULTANT Work Phone: [facility] 04-27-2024 15:05-0500 Body weight 107.96 kg Marquis Velasquez RISK MANAGEMENT CONSULTANT Work Phone: [facility] 04-27-2024 15:05-0500 Diastolic blood pressure 90 mm[Hg] Marquis Velasquez RISK MANAGEMENT CONSULTANT Work Phone: [facility] 04-27-2024 15:05-0500 Heart rate 67 /min Marquis Velasquez RISK MANAGEMENT CONSULTANT Work Phone: [facility] 04-27-2024 15:05-0500 Respiratory rate 14 /min Marquis Velasquez RISK MANAGEMENT CONSULTANT Work Phone: [facility] 04-27-2024 15:05-0500 SaO2% (BldA) [Mass fraction] 98 % Marquis Velasquez RISK MANAGEMENT CONSULTANT Work Phone: [facility] 04-27-2024 15:05-0500 Systolic blood pressure 138 mm[Hg] Marquis Velasquez RISK MANAGEMENT CONSULTANT Work Phone: [facility] 02-24-2024 15:32-0400 Body height 167.6 cm Abisai Boateng DPM Work Phone: [facility] 02-24-2024 15:32-0400 Body mass index (BMI) [Ratio] 39.22 kg/m2 Abisai Boateng DPM Work Phone: [facility] 02-24-2024 15:32-0400 Body weight 110.22 kg Abisai Boateng DPM Work Phone: [facility] 01-22-2024 15:57-0400 Body height 167.6 cm Marquis Velasquez RISK MANAGEMENT CONSULTANT Work Phone: [facility] 01-22-2024 15:57-0400 Body mass index (BMI) [Ratio] 39.22 kg/m2 Marquis Velasquez RISK MANAGEMENT CONSULTANT Work Phone: [facility] 01-22-2024 15:57-0400 Body temperature 98.29 [degF] Marquis Velasquez RISK MANAGEMENT CONSULTANT Work Phone: [facility] 01-22-2024 15:57-0400 Body weight 110.22 kg Marquis Velasquez RISK MANAGEMENT CONSULTANT Work Phone: [facility] 01-22-2024 15:57-0400 Diastolic blood pressure 78 mm[Hg] Marquis Velasquez RISK MANAGEMENT CONSULTANT Work Phone: [facility] 01-22-2024 15:57-0400 Heart rate 61 /min Marquis Velasquez RISK MANAGEMENT CONSULTANT Work Phone: [facility] Comment on above: 98% O2 01-22-2024 15:57-0400 Systolic blood pressure 112 mm[Hg] Marquis Velasquez RISK MANAGEMENT CONSULTANT Work Phone: [facility] 09-10-2022 13:15-0400 Diastolic blood pressure 64 mm[Hg] MD Shaikh Baker Work Phone: [facility] 09-10-2022 13:15-0400 Heart rate 54 /min MD Shaikh Baker Work Phone: [facility] 09-10-2022 13:15-0400 Respiratory rate 16 /min MD Shaikh Baker Work Phone: [facility] 09-10-2022 13:15-0400 SaO2% (BldA) [Mass fraction] 97 % MD Shaikh Baker Work Phone: [facility] 09-10-2022 13:15-0400 Systolic blood pressure 100 mm[Hg] MD Shaikh Baker Work Phone: [facility] 09-10-2022 12:25-0400 Body temperature 97.5 [degF] MD Shaikh Baker Work Phone: [facility] 09-10-2022 11:55-0400 Inhaled oxygen flow rate 8 L/min MD Shaikh Baker Work Phone: [facility] 09-10-2022 10:54-0400 Body height 165.1 cm MD Shaikh Baker Work Phone: [facility] 09-10-2022 10:54-0400 Body mass index (BMI) [Ratio] 38.6 kg/m2 MD Shaikh Baker Work Phone: [facility] 09-10-2022 10:54-0400 Body weight 105.4 kg MD Shaikh Baker Work Phone: [facility] 12-22-2021 10:00-0400 Diastolic blood pressure 87 mm[Hg] MD Sav Andrews Work Phone: [facility] 12-22-2021 10:00-0400 Heart rate 54 /min MD Sav Andrews Work Phone: [facility] 12-22-2021 10:00-0400 Respiratory rate 18 /min MD Sav Andrews Work Phone: [facility] 12-22-2021 10:00-0400 SaO2% (BldA) [Mass fraction] 100 % MD Sav Andrews Work Phone: [facility] 12-22-2021 10:00-0400 Systolic blood pressure 139 mm[Hg] MD Sav Andrews Work Phone: [facility] 12-22-2021 07:37-0400 Body height 170.18 cm MD Sav Andrews Work Phone: [facility] 12-22-2021 07:37-0400 Body temperature 97.9 [degF] MD Sav Andrews Work Phone: [facility] 12-22-2021 07:37-0400 Body weight 81.64 kg MD Sav Andrews Work Phone: [facility] Encounters Encounter Date Encounter Type Care Provider Facility Start: 07-29-2024 End: 07-29-2024 Office outpatient visit 25 minutes Luci Rios RISK MANAGEMENT CONSULTANT Work Phone: [facility] Comment on above: Primary hypertension (CMS/HCC) (Primary Dx); Type 2 diabetes mellitus without complications (CMS/HCC); watermelon inspector (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 (CMS/HCC); Morbid (severe) obesity due to excess calories (CMS/HCC); Gastro-esophageal reflux disease without esophagitis; Body mass index (BMI) 38.0-38.9, adult; 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); Type 2 diabetes mellitus with diabetic polyneuropathy, with long-term current use of insulin (CMS/HCC); Severe persistent asthma without complication (CMS/HCC); Mixed hyperlipidemia (CMS/HCC) Start: 07-29-2024 End: 07-29-2024 ambulatory LUCIMaddy RIOS Not Available Start: 07-29-2024 End: 07-29-2024 Bamboo flowsheet Luci Rios RISK MANAGEMENT CONSULTANT Work Phone: [facility] Start: 07-29-2024 End: 07-29-2024 Bamboo flowsheet Luci Goinsleandrobraulio RISK MANAGEMENT CONSULTANT Work Phone: [facility] Start: 07-18-2024 End: 07-18-2024 Clinisync Result Encounter Marquis Velasquez RISK MANAGEMENT CONSULTANT Work Phone: [facility] External Department Unsolicited Start: 07-18-2024 End: 07-18-2024 Clinisync Result Encounter Marquis Velasquez RISK MANAGEMENT CONSULTANT Work Phone: [facility] External Department Unsolicited Start: 06-13-2024 End: 06-16-2024 Refill Marquis Velasquez RISK MANAGEMENT CONSULTANT Work Phone: [facility] Comment on above: Severe persistent as thma without complication (CMS/HCC) Start: 05-06-2024 End: 05-06-2024 Refill Cassie Stroud MA [facility] Comment on above: Type 2 diabetes addy itus with diabetic polyneuropathy, with long-term current use of insulin (CMS/HCC) (Primary Dx) Start: 04-27-2024 End: 04-27-2024 Office outpatient visit 15 minutes Marquis Vailtrick RISK MANAGEMENT CONSULTANT Work Phone: [facility] Comment on above: Type 2 diabetes addy itus with diabetic polyneuropathy, with long-term current use of insulin (CMS/HCC) (Primary Dx); Resistant hypertension (CMS/[facility]); Gastroesophageal reflux disease without esophagitis Start: 04-27-2024 End: 04-27-2024 ambulatory MARQUIS VELASQUEZ Not Available Start: 04-27-2024 End: 04-27-2024 Bamboo flowsheet Marquis Velasquez RISK MANAGEMENT CONSULTANT Work Phone: [facility] Start: 04-27-2024 End: 04-27-2024 Bamboo flowsheet Marquis Velasquez RISK MANAGEMENT CONSULTANT Work Phone: [facility] Start: 03-18-2024 End: 03-19-2024 Refill Marquis Velasquez RISK MANAGEMENT CONSULTANT Work Phone: [facility] Comment on above: Type 2 diabetes addy itus without complication, with long-term current use of insulin (CMS/HCC) Start: 02-24-2024 End: 02-24-2024 Office outpatient new 30 minutes Abisai Boateng DPM Work Phone: [facility] Comment on above: Onychodystrophy ([facility] Dx); Type 2 diabetes mellitus with diabetic polyneuropathy, with long-term current use of insulin (CMS/HCC); Onychomycosis Start: 02-24-2024 End: 02-24-2024 ambulatory ABISAI BOATENG Not Available Start: 02-24-2024 End: 02-24-2024 Bamboo flowsheet Abisai Boateng DPM Work Phone: [facility] Start: 02-24-2024 End: 02-24-2024 Bamboo flowsheet Aibsai Boateng DPM Work Phone: [facility] Start: 01-25-2024 End: 01-25-2024 Clinisync Result Encounter Shaikh Samuel GUPTA Work Phone: [facility] External Department Unsolicited Start: 01-25-2024 End: 01-25-2024 Clinisync Result Encounter Shaikh Samuel GUPTA Work Phone: [facility] External Department Unsolicited Start: 01-22-2024 End: 01-22-2024 Office outpatient visit 25 minutes Marquis Velasquez RISK MANAGEMENT CONSULTANT Work Phone: [facility] Comment on above: Type 2 diabetes addy itus with diabetic polyneuropathy, with long-term current use of insulin (CMS/HCC) (Primary Dx); Severe persistent asthma without complication (CMS/HCC); Resistant hypertension (CMS/HCC); Gastroesophageal reflux disease without esophagitis; Mixed hyperlipidemia (CMS/HCC); Type 2 diabetes mellitus without complication, with long-term current use of insulin (CMS/HCC); Primary hypertension (CMS/HCC); Hyperlipidemia, unspecified hyperlipidemia type (CMS/HCC) Start: 01-22-2024 End: 01-22-2024 ambulatory MARQUIS VELASQUEZ Not Available Start: 01-22-2024 End: 01-22-2024 Bamboo flowsheet Marquis Velasquez RISK MANAGEMENT CONSULTANT Work Phone: [facility] Start: 01-22-2024 End: 01-22-2024 Bamboo flowsheet Marquis Velasquez RISK MANAGEMENT CONSULTANT Work Phone: [facility] Start: 10-24-2023 End: 10-24-2023 ambulatory SHAIKH SAMUEL Not Available Start: 09-16-2023 End: 09-16-2023 ambulatory SHAIKH SAMUEL Not Available Start: 08-07-2023 End: 08-07-2023 ambulatory SHAIKH SAMUEL Not Available Start: 09-10-2022 End: 09-10-2022 ambulatory [facility] Facility:[facility] Start: 09-10-2022 End: 09-10-2022 Admission to same day surgery center MD Shaikh Baker Work Phone: [facility] Start: 09-10-2022 End: 09-10-2022 ambulatory MD Shaikh Baker Work Phone: [facility] Work Phone: Start: 08-30-2022 End: 08-30-2022 [facility] Start: 08-30-2022 End: 08-30-2022 ambulatory MD Shaikh Baker Work Phone: [facility] Work Phone: Start: 08-30-2022 End: 08-30-2022 Patient encounter procedure MD Shaikh Baker Work Phone: [facility] Work Phone: Start: 07-07-2022 End: 07-08-2022 ambulatory SHAIKH Adan CROWLEYCecile Facility:[facility] Start: 03-13-2022 End: 03-14-2022 ambulatory SHAIKH Adan SERENANyasiaTREMAYNE Facility:[facility] Start: 12-22-2021 End: 12-22-2021 ambulatory Sav Andrews Facility:[facility] Start: 12-22-2021 End: 12-22-2021 Admission to same day surgery center MD Sav Andrews Work Phone: [facility] Start: 12-20-2021 End: 12-20-2021 ambulatory Sav Andrews Facility:[facility] Start: 12-20-2021 End: 12-20-2021 Patient encounter procedure MD Sav Andrews Work Phone: [facility] Start: 11-14-2021 End: 11-15-2021 ambulatory REY PEREZ Facility:[facility] Start: 10-25-2021 End: 10-26-2021 ambulatory REY PEREZ Facility:[facility] Start: 09-11-2021 End: 09-12-2021 ambulatory SHAIKH Adan BAKER Facility:[facility] Start: 09-05-2021 End: 09-06-2021 ambulatory LIZETH MARTIN Facility:[facility] Start: 08-03-2021 End: 08-03-[address] ASA AL Facility:[facility] Procedures Date Procedure Procedure Detail Performing Clinician Start: 07-18-2024 ALL CBC WITH AUTO DIFF Marquis Velasquez RISK MANAGEMENT CONSULTANT Work Phone: Start: 01-25-2024 ALL LIPID PROFILE (FASTING) Shaikh Samuel GUPTA Work Phone: Start: 01-25-2024 [facility] CMP (CMP) (FOR R [facility] USE) Shaikh Samuel GUPTA Work Phone: Start: 09-10-2022 Hemorrhoidectomy MD Beltran Baker Work Phone: Start: 01-26-2022 Colonoscopy Marquis F itzpatrick RISK MANAGEMENT CONSULTANT Work Phone: Start: 12-22-2021 Screening colonoscopy Ev Andrews Work Phone: SARS Antigen (LFIA) MD Fuentes Andrews Work Phone: Plan of Treatment Date Care Activity Detail Author Start: 01-27-2032 Screening for malign ant neoplasm of colon [facility] Start: 08-29-2025 Glaucoma screening Diabetes: R etinopathy Screening [facility] Start: 07-18-2025 Urine screening for protein Diabetes: Urine Protein Screening [facility] Start: 10-15-2024 Hemoglobin A1c measurement Diabetes: Hemoglobin A1C [facility] Start: 08-29-2024 Glaucoma screening Diabetes: R etinopathy Screening [facility] Start: 08-24-2024 End: 08-24-2024 Patient encounter procedure 08/24/2024 3:30 PM EDT Procedure Visit [facility] [address] [place] [phone] Abisai Boateng, DPM [address] [place] [address] [facility] Start: 08-18-2024 End: 08-18-2024 Patient encounter procedure 08/18/2024 3:00 PM EDT Office Visit [facility] [address] [place] [phone] Luci Rios, MARIA FERNANDA [address] [place] [phone] [facility] Start: 08-07-2024 Urine screening for protein Diabetes: Urine Protein Screening 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); Severe persistent asthma without complication (CMS/HCC); Primary hypertension (CMS/HCC); Mixed hyperlipidemia (CMS/HCC) Start: 07-28-2024 End: 07-28-2024 Patient encounter procedure 07/28/2024 4:00 PM EST Office Visit [facility] [address] [place] [address] Marquis Velasquez NP [address] [place] [address] [facility] Start: 07-26-2024 End: 04-27-2025 CBC W Auto Differential panel - Blood CBC and differential Lab Routine Type 2 diabetes mellitus with diabetic polyneuropathy, with long-term current use of insulin (CMS/HCC) Resistant hypertension (CMS/HCC) Expected: 07/26/2024 (Approximate), Expires: 04/27/2025 [facility] Comment on above: Expected: 07/26/2024 (Approximate), Expires: 04/27/2025 Start: 07-26-2024 End: 04-27-2025 Comprehensive metabolic 2000 panel - Serum or Plasma Comprehensive metabolic panel Lab Routine Type 2 diabetes mellitus with diabetic polyneuropathy, with long-term current use of insulin (CMS/HCC) Resistant hypertension (CMS/HCC) Expected: 07/26/2024 (Approximate), Expires: 04/27/2025 [facility] Comment on above: Expected: 07/26/2024 (Approximate), Expires: 04/27/2025 Start: 07-26-2024 End: 04-27-2025 Hemoglobin A1c/Hemoglobin.total in Blood Hemoglobin A1c Lab Routine Type 2 diabetes mellitus with diabetic polyneuropathy, with long-term current use of insulin (CMS/HCC) Resistant hypertension (CMS/HCC) Expected: 07/26/2024 (Approximate), Expires: 04/27/2025 [facility] Comment on above: Expected: 07/26/2024 (Approximate), Expires: 04/27/2025 Start: 07-26-2024 End: 04-27-2025 Microalbumin/Creatinine panel in random Urine Microalbumin / creatinine urine ratio Lab Routine Type 2 diabetes mellitus with diabetic polyneuropathy, with long-term current use of insulin ([facility]) Resistant hypertension ([facility]) Expected: 07/26/2024 (Approximate), Expires: 04/27/2025 [facility] Work Phone: Comment on above: Expected: 07/26/2024 (Approximate), Expires: 04/27/2025 Start: 04-27-2024 End: 04-27-2024 Patient encounter procedure [facility] Comment on above: Arrived Start: 04-22-2024 End: 04-22-2024 Patient encounter procedure 04/22/2024 3:30 PM EST Office Visit [facility] [address] [place] [phone] Marquis Velasquez, MARIA FERNANDA [address] [place] [phone] [facility] Start: 02-24-2024 End: 02-24-2024 Patient encounter procedure 02/24/2024 3:30 PM EDT Office Visit [facility] [address] [place] [phone] Abisai Boateng, DPM [address] [place], [place] [id number] Type 2 diabetes mellitus with diabetic polyneuropathy, with long-term current use of insulin ([facility]) [facility] Comment on above: Type 2 diabetes addy itus with diabetic polyneuropathy, with long-term current use of insulin ([facility]) Start: 01-26-2024 Influenza vaccination Influenza Vacc ine (#1) [facility] Start: 01-22-2024 End: 01-22-2024 Patient encounter procedure 01/22/2024 4:00 PM EDT Office Visit [facility] [address] [place] [phone] Marquis Velasquez, RISK MANAGEMENT CONSULTANT [address] [facility] [facility] [place] [address] Type 2 diabetes mellitus with diabetic polyneuropathy, with long-term current use of insulin (CMS/HCC) (Primary Dx); Severe persistent asthma without complication (CMS/HCC); Resistant hypertension (CMS/HCC); Gastroesophageal reflux disease without esophagitis; Mixed hyperlipidemia (CMS/HCC) [facility] Comment on above: Type 2 diabetes addy itus with diabetic polyneuropathy, with long-term current use of insulin (CMS/HCC) (Primary Dx); Severe persistent asthma without complication (CMS/HCC); Resistant hypertension (CMS/HCC); Gastroesophageal reflux disease without esophagitis; Mixed hyperlipidemia ([facility]/HCC) Start: 11-08-2023 Hemoglobin A1c measurement Diabetes: Hemoglobin A1C [facility] Start: 09-10-2022 End: 09-10-2022 [facility] Start: 12-22-2021 [facility] [facility] Work Phone: Start: 1965 Screening for malign ant neoplasm of colon [facility] Patient Education Hemorrhoids [facility] Work Phone: Immunizations Immunization Date Immunization Notes Care Provider Serena coelho 05-28-2024 influenza virus vaccine, unspecified formulation Luci Rios RISK MANAGEMENT CONSULTANT Work Phone: [facility] 03-23-2022 tetanus toxoid, reduced diphtheria toxoid, and acellular pertussis vaccine, adsorbed Marquis Velasquez RISK MANAGEMENT CONSULTANT Work Phone: [facility] 03-23-2022 zoster vaccine recombinant Marquis Velasquez RISK MANAGEMENT CONSULTANT Work Phone: [facility] 05-10-2021 Influenza, injectabl e, Madin [place] Canine Kidney, preservative free, quadrivalent Marquis Velasquez RISK MANAGEMENT CONSULTANT Work Phone: [facility] 05-10-2021 influenza virus vaccine, unspecified formulation Marquis Velasquez RISK MANAGEMENT CONSULTANT Work Phone: [facility] 10-10-2020 COVID-19 mRNASoniya (Pfizer) MD Sav Andrews Work Phone: [facility] 09-19-2020 COVID-19 Soniya Benavides (Pfizer) MD Sav Andrews Work Phone: [facility] 02-17-2020 Influenza, injectabl e, Madin [place] Canine Kidney, preservative free, quadrivalent Marquis Velasquez RISK MANAGEMENT CONSULTANT Work Phone: [facility] 03-09-2019 influenza, seasonal, injectable Marquis Velasquez RISK MANAGEMENT CONSULTANT Work Phone: [facility] 03-12-2017 influenza, injectabl e, quadrivalent, preservative free Marquis Velasquez RISK MANAGEMENT CONSULTANT Work Phone: [facility] Healthcare Payers Date Payer Category Payer [facility] BCBS [id number] 2022 Unknown BCBS BCBS [id number] 2022-Present [phone] [address] [place] [address] [id number] 2021 Self-pay [id number] 1966 Unknown [id number] 2.16.840.1.229992.3.579. 2.593 1966 Unknown [id number] 2.16.840.1.261937.3.579. 2.593 1966 Unknown [id number] 2.16.840.1.409681.3.579. 2.593 1966 Unknown [id number] 2.16.840.1.814849.3.579. 2.593 1966 Unknown [id number] 2.16.840.1.894765.3.579. 2.593 1966 Unknown [id number] 2.16.840.1.325411.3.579. 2.593 1966 Unknown [id number] 2.16.840.1.778506.3.579. 2.593 1966 Unknown [id number] 2.16.840.1.252497.3.579. 2.1259 1966 Unknown [id number] 2.16.840.1.892269.3.579. 2.1259 1966 Unknown [id number] 2.16.840.1.112733.3.579. 2.125 1966 Unknown [id number] 2.16.840.1.179494.3.579. 2.1259 1966 Unknown [id number] 2.16.840.1.951261.3.579. 2.125 1966 Unknown [id number] 2.16.840.1.622093.3.579. 2.125 1966 Unknown [id number] 2.16.840.1.148552.3.579. 2.1259 1959 Unknown [id number] Unknown [id number] 2.16.840.1.093008.3.579. 2.531 Unknown [id number] 2.16.840.1.073384.3.579. 2.531 Unknown [id number] 2.16.840.1.593897.3.579. 2.531 Unknown [id number] 2.16.840.1.236228.3.579. 2.531 Social History Date Type Detail Facility Start: 12-22-2021 End: 08-07-2023 Tobacco smoking status NHIS Ex-smoker (finding) [facility] Start: 1965 Sex Assigned At Male F [facility] History of tobacco use Current smoker [facility] History of tobacco use Cigarette Smoker [facility] History of tobacco use Passive smoker [facility] Start: 08-07-2023 Tobacco use and exposure Smoke less tobacco non-user [facility] Start: 02-24-2024 End: 07-29-2024 Alcoholic beverage intake Lifetime non-drinker (finding) [facility] Start: 01-21-2024 End: 01-22-2024 History of Social function [facility] Start: 01-21-2024 End: 01-22-2024 [id number] Health Literacy [facility] How often do you nee d to have someone help you when you read instructions, pamphlets, or other written material from your doctor or pharmacy [SILS] Sometimes [facility] Do you belong to any clubs or organizations such as lutheran groups, unions, fraternal or athletic groups, or [...] Origin al Text Equipment Identifier Dates Daily [id number] Start: 10-24-2023 End: 10-23-2024 Daily [id number] Start: 04-27-2024 End: 04-27-2025 Goals Date Patient Goal Desired Activity /State Clinical Notes 09-05-2021 to 07-29-2024 REKHA GRIDER - 07/29/2024 3:20 PM ESTLisa Aichholz, RISK MANAGEMENT CONSULTANT - 07/29/2024 3:20 PM ESTLisa Aichholz, RISK MANAGEMENT CONSULTANT - 07/29/2024 7:44 AM ESTLisa Aichholz, RISK MANAGEMENT CONSULTANT - 07/29/2024 7:44 AM ESTPatient Instructions Note Date & Type Note Facility 07-29-2024 History of Present illness Narrative Pt states that about 2 weeks ago he had pain in his right knee and swelling in the right leg. Pt states it happened just the one time. Pt is having pin and needles in the left hand. 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 Dante Dewey is a 59 y.o. male presents with chief complaint of No chief complaint on file. HPI: Pt states that about 2 weeks ago he had pain in his right knee and swelling in the right leg. Pt states it happened just the one time. Pt is having pin and needles in the left hand. 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 Pt needs a refill on his trelegy and albuterol inhaler wants to know if he can be on mounjaro Pt does not take januvia 100mg insurance will not pay for it- $600 a month for bottle CGM readings: 7 day, avg 235, >250 46%, 181-250 36%, 70-181 18% 14 day avg 210, 8.3%, >250 30%, 181-250 32%, 70-41968% 30 day avg 190, 7.9%, >250 18%, 181-250 32%, 70-180 48% 90 day avg 189, 7.8%, >250 16%, 181-250 33%, 70-181 51% No low blood sugars Uses the CGM daily, helps with monitoring food spikes and triggers for low blood sugars Asthma He complains of cough, difficulty breathing, frequent throat clearing, shortness of breath (occ) and wheezing. There is no chest tightness. This is a chronic problem. The current episode started more than 1 year ago. The problem occurs daily. The problem has been gradually worsening. The cough is non-productive. Associated symptoms include dyspnea on exertion. Pertinent negatives include no appetite change, ear pain, sneezing, trouble swallowing or weight loss. His symptoms are aggravated by nothing. Relieved by: trelegy, has been out for 3 months. He reports significant improvement on treatment. His past medical history is significant for asthma. There is no history of COPD or emphysema. Diabetes He presents for his follow-up diabetic visit. He has type 2 diabetes mellitus. His disease course has been fluctuating. There are no hypoglycemic associated symptoms. Pertinent negatives for hypoglycemia include no dizziness, nervousness/anxiousness, seizures or tremors. Associated symptoms include fatigue, foot paresthesias, polydipsia (occ) and polyuria (occ). Pertinent negatives for diabetes include no blurred vision, no visual change and no weight loss. There are no hypoglycemic complications. Symptoms are worsening. Diabetic complications include peripheral neuropathy. Pertinent negatives for diabetic complications include no heart disease or PVD. Risk factors for coronary artery disease include diabetes mellitus, dyslipidemia, hypertension, male sex, obesity and sedentary lifestyle. Current diabetic treatment includes oral agent (triple therapy) and insulin injections. He is compliant with treatment most of the time. An VERONICA inhibitor/angiotensin II receptor blanca is being taken. Hypertension This is a chronic problem. The current episode started more than 1 year ago. The problem has been waxing and waning since onset. The problem is uncontrolled. Associated symptoms include peripheral edema and shortness of breath (occ). Pertinent negatives include no blurred vision or palpitations. There are no associated agents to hypertension. Risk factors for coronary artery disease include diabetes mellitus, dyslipidemia, male gender, obesity and sedentary lifestyle. Past treatments include angiotensin blockers, beta blockers, calcium channel blockers and diuretics. The current treatment provides moderate improvement. There are no compliance problems. Hypertensive end-organ damage includes kidney disease. There is no history of heart failure or PVD. SUBJECTIVE: MEDICATIONS: Current Outpatient Medications Medication Instructions albuterol HFA 90 mcg/act inhaler 2 puffs, Inhalation, Every 4 hours PRN amLODIPine (NORVASC) 10 mg, Oral, Daily aspirin 81 mg, Oral, Daily RT atorvastatin (LIPITOR) 40 mg, Oral, Daily carvedilol (COREG) 25 mg, Oral, 2 times daily with meals Continuous Glucose Logistics Planning Manager (MobileIronStyle Era 2 [place]) device 1 each, Does not apply, 4 times daily Continuous Glucose Sensor (FreeStyle Era 3 Plus Sensor) [facility] [place] 1 SENSOR EVERY 15 DAYS TO MONITOR BLOOD SUGAR. furosemide (LASIX) 40 mg, Daily glipiZIDE (GLUCOTROL) 5 mg, Oral, 2 times daily before meals insulin glargine-yfgn (SEMGLEE (YFGN)) 20 Units, Subcutaneous, Nightly insulin pen needle (B-D ULTRAFINE III SHORT PEN) 31G X [address] [facility] Daily losartan-hydroCHLOROthiazide (Hyzaar) 100-25 MG tablet 1 tablet, Oral, Daily metFORMIN (GLUCOPHAGE) 850 mg, Oral, 2 times daily with meals omeprazole (PRILOSEC) 40 mg, Oral, Daily before breakfast spironolactone (ALDACTONE) 50 mg, Oral, Daily Trelegy Ellipta 200-62.5-25 MCG/ACT aerosol powder INHALE 1 PUFF ONCE DAILY ALLERGIES: No Known Allergies REVIEW OF SYMPTOMS: Review of Systems Constitutional: Positive for fatigue. Negative for activity change, appetite change, unexpected weight change and weight loss. HENT: Negative for ear pain, nosebleeds, sneezing, trouble swallowing and voice change. Eyes: Negative for blurred vision, pain, discharge and visual disturbance. Respiratory: Positive for cough, shortness of breath (occ) and wheezing. Negative for apnea and chest tightness. Cardiovascular: Positive for dyspnea on exertion and leg swelling. Negative for palpitations. Gastrointestinal: Negative for abdominal distention, blood in stool, constipation and diarrhea. Genitourinary: Negative for decreased urine volume, difficulty urinating, dysuria and hematuria. Musculoskeletal: Positive for arthralgias. Skin: Negative for color change. Neurological: Negative for dizziness, tremors and seizures. Psychiatric/Behavioral: Negative for agitation, decreased concentration, hallucinations, self-injury and suicidal ideas. The patient is not nervous/anxious. Hematological: Negative for adenopathy. Does not bruise/bleed easily. Endocrine: Positive for polydipsia (occ) and polyuria (occ). Negative for cold intolerance and heat intolerance. Allergic/Immunologic: Negative for environmental allergies and food allergies. PAST MEDICAL HISTORY Past Medical History: Diagnosis Date AYESHA (acute [...] pain Right leg swelling Severe persistent asthma (CMS/HCC) Skin tags, multiple acquired Sprain of right ankle, sequela T2DM (type 2 diabetes mellitus) ([facility]) Past Surgical History: Procedure Laterality Date ANKLE SURGERY Right COLONOSCOPY 2021 HEMORRHOID SURGERY 09/10/2022 banding of hemorrhoids family history includes Diabetes in his sister; Stroke in his father. OBJECTIVE: Visit Vitals BP (!) 172/120 (BP Location: Left arm, Patient Position: Sitting, BP Cuff Size: Adult long) Pulse 76 Temp 97.8 F (Temporal) Resp 20 Ht 5' 6 Wt 243 lb 6.4 oz SpO2 97% BMI 39.29 kg/m Smoking Status Former BSA 2.26 m Physical Exam Vitals and nursing note reviewed. Constitutional: Appearance: Normal appearance. He is obese. He is not ill-appearing. HENT: Head: Normocephalic. Right Ear: Tympanic membrane, ear canal and external ear normal. Left Ear: Tympanic membrane, ear canal and external ear normal. Nose: Nose normal. No congestion or rhinorrhea. Mouth/Throat: Mouth: Mucous membranes are moist. Pharynx: Oropharynx is clear. Eyes: Extraocular Movements: Extraocular movements intact. Conjunctiva/sclera: Conjunctivae normal. Neck: Vascular: No carotid bruit. Cardiovascular: Rate and Rhythm: Normal rate and regular rhythm. Pulses: Normal pulses. Heart sounds: Normal heart sounds. Pulmonary: Effort: Pulmonary effort is normal. Breath sounds: Wheezing (faint exp wheeze) present. Abdominal: General: Bowel sounds are normal. There is no distension. Palpations: Abdomen is soft. Tenderness: There is no abdominal tenderness. There is no guarding or rebound. Musculoskeletal: Cervical back: Neck supple. Right lower leg: Edema present. Left lower leg: No edema. Lymphadenopathy: Cervical: No cervical adenopathy. Skin: General: Skin is warm and dry. Capillary Refill: Capillary refill takes 2 to 3 seconds. Findings: No rash. Neurological: General: No focal deficit present. Mental Status: He is alert. Psychiatric: Mood and Affect: Mood normal. Behavior: Behavior normal. Thought Content: Thought content normal. Judgment: Judgment normal. ASSESSMENT AND PLAN: Follow up in about 2 days (around 07/31/2024) for Recheck. Problem List Items Addressed This Visit Type 2 diabetes mellitus with diabetic polyneuropathy, with long-term current use of insulin ([facility]) - Primary No current treatment Recommend proper fitting toes, freq foot inspections, good glycemic control Severe persistent asthma without complication ([facility]) Current meds: trelegy, albuterol #2 samples of trelegy: 100's, lot MV9W, exp 06/21 In the past has used trelegy 200, symbicort 160, and flovent Finds benefit with trelegy 100's Has seen pulmonology in the past Relevant Medications Dzjrlycnjnd-Jnhmkgjru-Fvrqkr (Trelegy Ellipta) 200-62.5-25 MCG/ACT aerosol powder albuterol HFA 90 mcg/act inhaler Gastro-esophageal reflux disease without esophagitis Recommendations: freq small meals, nothing to eat or drink at least 2 hours prior to bed, limit caffeine, alcohol, as well as spicy foods Meds to limit or avoid if possible: NSAIDS Elevate HOB if possible Med: omeprazole Hyperlipidemia ([facility]) On statin therapy Check labs yearly, and prn dose changes Type 2 diabetes mellitus without complications ([facility]) Check blood sugars daily, notify if <70 [...] diet low in carbohydrates, and simple sugars. Current med: statin, arb, glipizide, insulin Trial adding SGLT 2, and then possibly a GLP 1 he has no contraindications for that A1c 8.3% 07/18/24 Relevant Medications dapagliflozin (Farxiga) 5 MG watermelon inspector (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 ([facility]) Continue with insulin Morbid (severe) obesity due to excess calories ([facility]) Discussed with patient their BMI (actual, verses recommended). We have also discussed lifestyle modifications: attempts to perform physical activity as chronic conditions allow, also to monitor dietary intake: increasing protein/fruits/veggies and lowering carb intake (unless contraindicated). Limit sodas, juices, and sugary drinks. Body mass index (BMI) 38.0-38.9, adult Idiopathic aseptic necrosis of right foot ([facility]/HCC) Has seen podiatry in the past Primary hypertension ([facility]) Please check blood pressure daily and record DASH diet Limit caffeine Take medication as directed Contact office if chest pain, pressure, dizziness, shortness of breath, swelling legs Recommend slow position changes Current meds: amlodipine, carvedilol, losartan/hydrochlorothiazide, aldactone Will increase dose on aldactone to 100mg daily Recheck blood pressure in 2 weeks-currently no symptoms Associated Problem(s): snf (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 ([facility]) Continue with insulin Associated Problem(s): Hyperlipidemia ([facility]) On statin therapy Check labs yearly, and prn dose changes Associated Problem(s): Type 2 diabetes mellitus without complications ([facility]) Check blood sugars daily, notify if <70 [...] diet low in carbohydrates, and simple sugars. Current med: statin, arb, glipizide, insulin Trial adding SGLT 2, and then possibly a GLP 1 he has no contraindications for that A1c 8.3% 07/18/24 Associated Problem(s): Morbid (severe) obesity due to excess calories (CMS/HCC) Discussed with patient their BMI (actual, verses recommended). We have also discussed lifestyle modifications: attempts to perform physical activity as chronic conditions allow, also to monitor dietary intake: increasing protein/fruits/veggies and lowering carb intake (unless contraindicated). Limit sodas, juices, and sugary drinks. Associated Problem(s): 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) Has seen podiatry in the past Associated Problem(s): Gastro-esophageal reflux disease without esophagitis Recommendations: freq small meals, nothing to eat or drink at least 2 hours prior to bed, limit caffeine, alcohol, as well as spicy foods Meds to limit or avoid if possible: NSAIDS Elevate HOB if possible Med: omeprazole Associated Problem(s): Primary hypertension (CMS/HCC) Please check blood pressure daily and record DASH diet Limit caffeine Take medication as directed Contact office if chest pain, pressure, dizziness, shortness of breath, swelling legs Recommend slow position changes Current meds: amlodipine, carvedilol, losartan/hydrochlorothiazide, aldactone Will increase dose on aldactone to 100mg daily Recheck blood pressure in 2 weeks-currently no symptoms Associated Problem(s): Severe persistent asthma without complication ([facility]) Current meds: trelegy, albuterol #2 samples of trelegy: 100's, lot MV9W, exp 06/21 In the past has used trelegy 200, symbicort 160, and flovent Finds benefit with trelegy 100's Has seen pulmonology in the past Associated Problem(s): Type 2 diabetes mellitus with diabetic polyneuropathy, with long-term current use of insulin ([facility]) No current treatment Recommend proper fitting toes, freq foot inspections, good glycemic control documented in this encounter [facility] 07-29-2024 Instructions Luci Rios NP - 07/29/2024 3:20 PM EST Aldactone increase to 2 pills daily (total 100mg) Diabetes: I want to check with insurance about either Farxiga or Jardiance -it will be 1 pill daily, pulls sugar out through the urine. I will also check into the Mounjaro/Ozempic/Trulicity documented in this encounter [facility] 04-27-2024 History of Present illness Narrative Images [...] with long-term current use of insulin (CMS/HCC) - Primary Glipizide 5mg Metformin 850mg Januvia [...] MG DR capsule Associated Problem(s): Resistant hypertension ([facility]) Currently taking Amlodipine 10mg Carvedilol 25mg Losartan-hydrochlorothiazide 100-25mg Spironlactone 50mg Checks BP at home; Averages are Denies orthostatic changes, dizziness, cough, shortness of breath, swelling in extremities. Continue current regimen Associated Problem(s): Type 2 diabetes mellitus with diabetic polyneuropathy, with long-term current use of insulin ([facility]) Glipizide 5mg Metformin 850mg Januvia 100mg Semglee [...] Continue current regimen. documented in this encounter [facility] 04-27-2024 Instructions Marquis Velasquez NP - 04/27/2024 3:30 PM EST Keep up the good work! Call if you need anything!!! documented in this encounter [facility] 02-24-2024 History of Present illness Narrative Images from the original note were not included. Subjective Patient ID: Dante Dewey is a 59 y.o. male who presents for DM Foot Care (Dante Dewey 59yo male, New [facility] for diabetic nail care and polyneuropathy.Patient [...] History: Diagnosis Date AYESHA (acute kidney injury) ([facility]) Arthritis of ankle, right Asthma ([facility]) Avascular necrosis of talus, right ([facility]/HCC) Dietrich cyst, right Enlarged and hypertrophic nails Eosinophilia Equinus contracture of right ankle Gastroesophageal reflux disease Hemorrhoids Hyperlipemia, mixed ([facility]) Hypertension ([facility]) Onychomycosis of toenail Osteoarthritis of both knees, unspecified osteoarthritis type Osteochondral defect of talus Pain, foot, right, chronic Peroneal tendinitis, right Right ankle pain Right leg swelling Severe persistent asthma ([facility]) Skin tags, multiple acquired Sprain of right ankle, sequela T2DM (type 2 diabetes mellitus) ([facility]) Medications Current Outpatient Medications: albuterol HFA 90 [...] Disp: 180 tablet, Rfl: 1 Continuous Glucose Logistics Planning Manager (FreeStyle Era 2 [place]) device, 1 each in the morning and 1 each at noon and 1 each in the evening and 1 each before bedtime., Disp: 1 each, Rfl: 0 Mytvormlpah-Xniajnrrs-Raiorx (Trelegy Ellipta) 200-62.5-25 MCG/ACT aerosol powder , [...] III SHORT PEN) 31G X 8 mm misc, Daily, Disp: 100 each, Rfl: 12 losartan-hydroCHLOROthiazide [...] polyneuropathy, with long-term current use of insulin ([facility]) E11.42 Ambulatory referral to Podiatry Z79.4 3. Onychomycosis B35.1 Patient was examined and evaluated. Patient is low risk for diabetic foot complications. He does have some mild loss of vibratory sensation bilaterally to suggest early neuropathy. No preulcerative lesions. 10 toenails were debrided in length and thickness today utilizing a nail nipper and electric bur swing grinder without incident. I have discussed the importance [...] Abisai Boateng DPM documented in this encounter [facility] 01-22-2024 History of Present illness Narrative Associated Problem(s): Severe persistent asthma without complication ([facility]) Trelegy And Albuterol PRN. Feels symptoms are well managed. Denies any exacerbations, cough, shortness of breath. Associated Problem(s): Type 2 diabetes mellitus with diabetic polyneuropathy, with long-term current use of insulin ([facility]) Glipizide 5mg Metformin 850mg Januvia 100mg Most [...] for Follow-up (3MO, ) and Poison Suzi ([facility] WAS GIVEN STEROID AND CREAM. [...] polyneuropathy, with long-term current use of insulin ([facility]) - Primary Glipizide 5mg Metformin 850mg Januvia [...] UNIT/ML injection Severe persistent asthma without complication (CMS/HCC) Trelegy And Albuterol PRN. Feels symptoms are well managed. Denies any exacerbations, cough, shortness of breath. Relevant Medications albuterol HFA 90 mcg/act inhaler Fdoiactqzqt-Myxhizaij-Zsdmld (Trelegy Ellipta) 200-62.5-25 MCG/ACT aerosol powder Gastroesophageal reflux disease without esophagitis Relevant Medications omeprazole (PriLOSEC) [address] capsule Hyperlipidemia ([facility]) Atorvastatin 40mg Denies myalgias Continue current regimen. Relevant Medications metFORMIN (Glucophage) 850 MG tablet aspirin 81 MG chewable tablet atorvastatin (Lipitor) 40 MG tablet Other Visit Diagnoses Type 2 diabetes mellitus without complication, with long-term current use of insulin ([facility] [facility]) Relevant Medications Continuous Glucose Logistics Planning Manager (FreeStyle Era 2 [place]) device Primary hypertension ([facility]) Relevant Medications losartan-hydroCHLOROthiazide (Hyzaar) 100-25 MG tablet amLODIPine (Norvasc) 10 MG tablet documented in this encounter [facility] 01-22-2024 Instructions Marquis Velasquez NP - 01/22/2024 [...] and simple sugars. documented in this encounter [facility] 12-22-2021 Procedure note [facility] 10-26-2021 Note PROCEDURE: XR ANKLE RT MIN [...] authenticated by: MICHELLE IBRAHIM Date: 2021-10-26 08:54 [facility] 09-05-2021 Note PROCEDURE: XR ANKLE RT MIN 3 VIEWS COMPARISON: None. 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 No acute fracture, dislocation or mechanical failure. Stable degenerative changes. Mild enthesopathic spurring of the calcaneus SOFT TISSUES:Mild soft tissue swelling EFFUSION:None visible. OTHER: Negative. IMPRESSION: Stable talus arthroplasty Electronically authenticated by: GERA BLUM Date: 2021-09-05 15:22 [facility] Evaluation note No assessment inform ation available [facility] Work Phone: Evaluation note Diagnosis [...] insulin (CMS/HCC) documented in this encounter [facility] HealthcareEvaluation note* Diagnosis Primary hypertension ([facility]/HCC)- Primary Unspecified essential hypertension Type 2 diabetes mellitus with diabetic polyneuropathy, with long-term current use of insulin ([facility]/HCC) Other hyperlipidemia ([facility]/HCC) Gastroesophageal reflux disease without esophagitis Esophageal reflux Type 2 diabetes mellitus with diabetic polyneuropathy, with long-term current use of insulin ([facility])- Primary Resistant hypertension ([facility]/HCC) Hyperlipidemia, unspecified hyperlipidemia type ([facility]/HCC)- Primary Resistant hypertension (CMS/HCC) Type 2 diabetes mellitus with diabetic polyneuropathy, with long-term current use of insulin ([facility]) Gastroesophageal reflux disease without esophagitis Esophageal reflux Primary hypertension ([facility]/HCC) Unspecified essential hypertension Type 2 diabetes mellitus with diabetic polyneuropathy, with long-term current use of insulin ([facility])- Primary Severe persistent asthma without complication ([facility]/HCC) Resistant hypertension ([facility]/HCC) Gastroesophageal reflux disease without esophagitis Esophageal reflux Mixed hyperlipidemia ([facility]) Mixed hyperlipidemia Type 2 diabetes mellitus without complication, with long-term current use of insulin ([facility]) Primary hypertension ([facility]/HCC) Unspecified essential hypertension Hyperlipidemia, unspecified hyperlipidemia type ([facility]) Type 2 diabetes mellitus with diabetic polyneuropathy, with long-term current use of insulin ([facility])- Primary Resistant hypertension ([facility]/HCC) Gastroesophageal reflux disease without esophagitis Esophageal reflux documented in this encounter [facility] HealthcareEvaluation note* Diagnosis Primary hypertension ([facility]/HCC)- Primary Unspecified essential hypertension Type 2 diabetes mellitus with diabetic polyneuropathy, with long-term current use of insulin ([facility]) Other hyperlipidemia ([facility]) Gastroesophageal reflux disease without esophagitis Esophageal reflux Type 2 diabetes mellitus with diabetic polyneuropathy, with long-term current use of insulin ([facility])- Primary Resistant hypertension ([facility]/HCC) Hyperlipidemia, unspecified hyperlipidemia type ([facility]/HCC)- Primary Resistant hypertension ([facility]) Type 2 diabetes mellitus with diabetic polyneuropathy, with long-term current use of insulin ([facility]) Gastroesophageal reflux disease without esophagitis Esophageal reflux Primary hypertension ([facility]/HCC) Unspecified essential hypertension Type 2 diabetes mellitus with diabetic polyneuropathy, with long-term current use of insulin ([facility])- Primary Severe persistent asthma without complication ([facility]/HCC) Resistant hypertension (CMS/HCC) Gastroesophageal reflux disease without [...] (CMS/HCC)- Primary documented in this encounter [facility] HealthcareEvaluation note* Diagnosis Type 2 diabetes mellitus with diabetic polyneuropathy, with long-term current use of insulin ([facility]/HCC)- Primary Severe persistent asthma without complication (CMS/HCC) Resistant hypertension (CMS/HCC) Gastroesophageal reflux disease without esophagitis Esophageal reflux Mixed hyperlipidemia (CMS/HCC) Mixed hyperlipidemia Type 2 diabetes mellitus without complication, with long-term current use of insulin ([facility]) Primary hypertension ([facility]CC) Unspecified essential hypertension Hyperlipidemia, unspecified hyperlipidemia type (CMS/HCC) documented in this encounter [facility] HealthcareEvaluation note* Diagnosis Onychodystrophy- Primary Other specified disease of nail Type 2 diabetes mellitus with diabetic polyneuropathy, with long-term current use of insulin ([facility]) Onychomycosis Dermatophytosis of nail documented in this encounter [facility] HealthcareEvaluation note* Diagnosis Primary hypertension ([facility]/HCC)- Primary Unspecified essential hypertension Type 2 diabetes mellitus with diabetic polyneuropathy, with long-term current use of insulin ([facility]CC) Other hyperlipidemia ([facility]CC) Gastroesophageal reflux disease without esophagitis Esophageal reflux [...] polyneuropathy, with long-term current use of insulin ([facility]/HCC)- Primary Severe persistent asthma without complication (CMS/HCC) [...] without complication (CMS/HCC) documented in this encounter [facility] HealthcareEvaluation note* Diagnosis Primary hypertension (CMS/HCC)- Primary Unspecified essential hypertension Type 2 diabetes mellitus with diabetic polyneuropathy, with long-term current use of insulin (CMS/HCC) Other hyperlipidemia (CMS/HCC) Gastroesophageal reflux disease without esophagitis Esophageal reflux Type 2 diabetes mellitus with diabetic polyneuropathy, with long-term current use of insulin ([facility])- Primary Resistant hypertension (CMS/HCC) Hyperlipidemia, unspecified hyperlipidemia type (CMS/HCC)- Primary Resistant hypertension (CMS/HCC) Type 2 diabetes mellitus with diabetic polyneuropathy, with long-term current use of insulin ([facility]) Gastroesophageal reflux disease without esophagitis Esophageal reflux Primary hypertension (CMS/HCC) Unspecified essential hypertension Type 2 diabetes mellitus with diabetic polyneuropathy, with long-term current use of insulin ([facility])- Primary Severe persistent asthma without complication (CMS/HCC) Resistant hypertension (CMS/HCC) Gastroesophageal reflux disease without esophagitis Esophageal reflux Mixed hyperlipidemia (CMS/HCC) Mixed hyperlipidemia Type 2 diabetes mellitus without complication, with long-term current use of insulin ([facility]) Primary hypertension (CMS/HCC) Unspecified essential hypertension Hyperlipidemia, unspecified hyperlipidemia type ([facility]) Type 2 diabetes mellitus with diabetic polyneuropathy, with long-term current use of insulin ([facility])- Primary Resistant hypertension (CMS/HCC) Gastroesophageal reflux disease without esophagitis Esophageal reflux Primary hypertension ([facility])- Primary Unspecified essential hypertension Type 2 diabetes mellitus without complications ([facility]CC) watermelon inspector (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 ([facility]/HCC) Morbid (severe) obesity due to excess calories ([facility]) Gastro-esophageal reflux disease without esophagitis Body mass index (BMI) 38.0-38.9, adult Idiopathic aseptic necrosis of right foot ([facility]/HCC) Type 2 diabetes mellitus with diabetic polyneuropathy, with long-term current use of insulin (CMS/HCC) Severe persistent asthma without complication ([facility]/HCC) Mixed hyperlipidemia ([facility]) Mixed hyperlipidemia documented in this encounter [facility] and [facility] note Author Sav Andrews [facility] December 22, 2021 9:32am Note Date/Time December 22, 2021 9:32 am [facility] [address] [place] [address] Gastroenterology H&P Signed Patient: Dante Dietz MR #: [id number] : 1965 Acct:[id number] Age/Sex: 56 / M Adm Date: 2 Loc: Room: Type: [facility] Attending Dr: Sav Andrews MD Copies [...] signed by Sav Andrews MD> 12/22/21 0932 [facility] Work Phone: Reason for referral (narrative)* Consultation (Routine) - Pending Review Specialty Diagnoses / Procedures Referred By Contac t Referred To Contact Podiatry Diagnoses Type 2 diabetes mellitus with diabetic polyneuropathy, with long-term current use of insulin ([facility]) Procedures [place] OFFICE/OUTPATIENT [facility] MDM 60 MINUTES Marquis Velasquez NP [address] [place] [address] Rita Mejia, DPM [address] [place] [address] Referral ID Status Reason Start Date Expiration Date Visits Requested Visits Authorized [id number] Pending Review Specialty Services Required 01/22/2024 07/20/2024 [...] Active Silver Briceño DO Attending Provider Active Dry Cleaner Hand Relationship Specialty Start Date End Date Antwan Perez MD [address] [place] [address] PCP - General Family Medicine 12/30/23 Marquis Velasquez NP [address] [place] [address] Nurse Practitioner Family Medicine 12/30/23 Dry Cleaner Hand Relationship Specialty Start Date End Date Antwan Perez MD [address] [place] [address] PCP - General Family Medicine 12/30/23 Shaikh Baker MD [address] [place] [address] PCP - [facility] 02/25/24 Marquis Velasquez NP [address] [place] [address] Nurse Practitioner Family Medicine 12/30/23 Dry Cleaner Hand Relationship Specialty Start Date End Date Antwan Perez MD [address] [place] [phone] PCP - General Family Medicine 12/30/23 Shaikh Baker MD [address] [place] [address] PCP - [facility] 02/25/24 Marquis Velasquez NP [address] [place] [address] Nurse Practitioner Family Medicine 12/30/23 Dry Cleaner Hand Relationship Specialty Start Date End Date Antwan Perez MD [address] [place] [address] PCP - General Family Medicine 12/30/23 Shaikh Baker MD [address] [place] [address] PCP - [facility] 02/25/24 Marquis Velasquez NP [address] [place] [address] Nurse Practitioner Family Medicine 12/30/23 Dry Cleaner Hand Relationship Specialty Start Date End Date Antwan Perez MD [address] [place] [address] PCP - General Family Medicine 12/30/23 Marquis Velasquez NP [address] [place] [address] Nurse Practitioner Family Medicine 12/30/23 Dry Cleaner Hand Relationship Specialty Start Date End Date Antwan Perez MD [address] [place] [address] PCP - General Family Medicine 12/30/23 Marquis Velasquez NP [address] [place] [address] Nurse Practitioner Family Medicine 12/30/23 Dry Cleaner Hand Relationship Specialty Start Date End Date Antwan Perez MD [address] [place] [address] PCP - General Family Medicine 12/30/23 Marquis Velasquez NP [address] [place] [address] Nurse Practitioner Family Medicine 12/30/23 Dry Cleaner Hand Relationship Specialty Start Date End Date Antwan Perez MD [address] [place] [address] PCP - General Family Medicine 12/30/23 Marquis Velasquez NP [address] [place] [address] Nurse Practitioner Family Medicine 12/30/23 Dry Cleaner Hand Relationship Specialty Start Date End Date Antwan Perez MD [address] [place] [address] PCP - General Family Medicine 12/30/23 Marquis Velasquez, MARIA FERNANDA [address] [place] [address] Nurse Practitioner Family Medicine 12/30/23 Dry Cleaner Hand Relationship Specialty Start Date End Date Antwan Perez MD [address] [place] [address] PCP - General Family Medicine 12/30/23 Shaikh Baker MD [address] [place] [address] PCP - [facility] 02/25/24 Marquis Velasquez NP [address] [place] [address] Nurse Practitioner Family Medicine 12/30/23 Dry Cleaner Hand Relationship Specialty Start Date End Date Antwan Perez MD [address] [place] [address] PCP - General Family Medicine 12/30/23 Shaikh Baker MD [address] [place] [address] PCP - [facility] 02/25/24 Marquis Velasquez NP [address] [place] [address] Nurse Practitioner Family Medicine 12/30/23 Dry Cleaner Hand Relationship Specialty Start Date End Date Antwan Perez MD [address] [place] [address] PCP - General Family Medicine 12/30/23 Shaikh Baker MD [address] [place] [address] PCP - [facility] 02/25/24 Marquis Velasquez NP [address] [place] [address] Nurse Practitioner Family Medicine 12/30/23 Dry Cleaner Hand Relationship Specialty Start Date End Date Antwan Perez MD [address] [place] [address] PCP - General Family Medicine 12/30/23 Shaikh Baker MD [address] [place] [address] PCP - [facility] 02/25/24 Marquis Velasquez NP [address] [place] [address] Nurse Practitioner Family Medicine 12/30/23 (unrecognized sect ion and content) No Status Records FoundNo Status Records FoundNo Status Records Found INFORMATION SOURCE (unrecogn ized section and content) DATE CREATED AUTHOR 07/14/2022 [facility] DATE CREATED AUTHOR AUTHOR'S ORGANIZ ATION 10/02/2022 [facility] DATE CREATED AUTHOR AUTHOR'S ORGANIZ ATION 07/31/2024 [facility] EPIC Goals (unrecognized section and content) Goals may be documented in a n alternate section Reason for Visit (unrecogniz ed section and content) Reason Onset Date Comments Med Refill 03/18/2024 Reason Comments Follow-up Med Refills Reason Onset Date Comments Med Refill 05/06/2024 Reason Comments Follow-up 3MO, Poison [facility] WAS GIVEN FADI ROID AND CREAM. [...] polyneuropathy, with long-term current use of insulin ([facility]) Procedures [place] OFFICE/OUTPATIENT [facility] MDM 60 MINUTES Marquis Velasquez NP [address] [place] [address] Rita Mejia, DPM [address] [place] [address] Referral ID Status Reason Start Date Expiration Date V isits Requested Visits Authorized [id number] Closed Specialty Services Required 01/22/2024 07/20/2024 1 [...] BE BASED ON THE PRIMARY CLINICAL RECORDS. [facility]. provides no warranty or guarantee of the accuracy or completeness of information in this document.
[2024-08-18 17:04] LABS: Anion Gap 14.4; BUN Creatinine Ratio 19.4; Calcium 8.5 mg/dL (8.5-10.1); Carbon Dioxide 24.4 mmol/L (21.0-32.0); Chloride 100 mmol/L (98-107); Estimated GFR (African America >60 (>=60 mL/min/1.73m^2); Estimated GFR (Non-African Ame 50 (>=60 mL/min/1.73m^2); Glucose 193 mg/dL (74-106); Potassium 4.8 mmol/L (3.5-5.1); Sodium 134 mmol/L (136-145)
== END 2024-08-18 16:09 | disposition home or self-care (01) ==
LOC: LAB 16:10
PROVIDERS: PCP Nurse Practitioner; Visit Provider Nurse Practitioner
DX: R60.0 Localized edema (principal); E11.9 Type 2 diabetes mellitus without complications; Z79.4 Long term (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; I1A.0 Resistant hypertension
CPT/HCPCS: 36415; 80048

== ENCOUNTER 2024-08-29 07:55 | Outpatient (OUT) | payer BC, SELFPAY ==
--- OUTSIDE RECORDS SUMMARY | 2024-08-29 07:58 | XMS_ITS | CCD ---
Author Organization [facility] Care Team Providers Care Medical Genetics Director Name Role Phone MD Sav Andrews Attending [...] Care Unavailable Silver Briceño Attending Unavailable Silver Bricñeo Admitting Unavailable Shaikh Baker Primary Care Unavailable Sav Andrews Admitting Unavailable Sav Andrews Attending Unavailable Silver Briceño Attending Unavailable Silver Briceño Admitting Unavailable Shaikh Baker Primary Care Unavailable Antwan Perez MD Primary Care Provider [phone] Eva RN HEART, Marquis Unavailable [phone] Samuel GUPTA, Unavailable Eva RN HEART, Marquis Unavailable [phone] LUCI RIOS Attending Unavailable LUCI RIOS Attending Unavailable SHAIKH BAKER Attending Unavailable SHAIKH BAKER Attending Unavailable MARQUIS VELASQUEZ Attending UnavailABISAI Gomez Attending Unavailable ABISAI BOATENG Attending Unavailable MARQUIS VELASQUEZ Referring MARQUIS Alberto Attending Alessia reardon Medications Current Medications Medication Drug Class(es) Dates Sig (Normalized) Sig (Original) [id number] 200 actuat albuterol 0.09 mg/actuat metered dose inhaler (20 sources) beta2-Adrenergic Agonist Start: 05-08-2023 End: 11-06-2024 take 2 puff(s) by inhalation every four hours albuterol HFA 90 mcg/act inhaler Indications: Severe persistent asthma without complication (CMS/HCC) Inhale 2 puffs every 4 (four) hours if needed for shortness of breath 18 g 07/29/2024 11/06/2024 Active Start: 12-22-2021 take 1 puff(s) by in halation four times daily Albuterol Sulfate Active 1 PUFF INHALATION Four times daily December 22, 2021 12:00am amLODIPine 10 mg oral tablet (20 sources) Dihydropyridine Calcium Channel Blanca Start: 08-18-2024 End: 02-14-2025 take 1 tablet by mouth once daily amLODIPine (Norvasc) 10 MG tablet Indications: Primary hypertension (CMS/HCC) Take 1 tablet (10 mg) by mouth Daily 90 tablet 1 08/18/2024 02/14/2025 Active Start: 10-24-2023 End: 07-20-2024 take 1 tablet [...] tablet (20 sources) HMG-CoA Reductase Inhibitor Start: 08-18-2024 End: 02-14-2025 take 1 tablet by mouth once daily atorvastatin (Lipitor) 40 MG tablet Indications: Hyperlipidemia, unspecified hyperlipidemia type (CMS/HCC) Take 1 tablet (40 mg) by mouth Daily 90 tablet 1 08/18/2024 02/14/2025 Active Start: 10-24-2023 End: 07-20-2024 take 1 tablet [...] (20 sources) alpha-Adrenergic Blanca, beta-Adrenergic Blanca Start: 08-18-2024 End: 02-14-2025 take 1 tablet by mouth in the morning carvedilol (Coreg) 25 MG tablet Indications: Resistant hypertension (CMS/HCC) Take 1 tablet (25 mg) by mouth in the morning and 1 tablet (25 mg) in the evening. Take with meals. 180 tablet 1 08/18/2024 02/14/2025 Active Start: 10-24-2023 End: 07-20-2024 take 1 tablet [...] daily August 30, 2022 12:00am Continuous Glucose Water Valve Mechanic (FreeStyle Era 2 [place]) device (20 sources) Start: 03-19-2024 End: 03-19-2025 Continuous Glucose Water Valve Mechanic (FreeStyle Era 2 [place]) device Indications: Type 2 diabetes mellitus without complication, with long-term current use of insulin 1 each in the morning and 1 each at noon and 1 each in the evening and 1 each before bedtime. 1 each 03/19/2024 03/19/2025 Active Start: 03-19-2024 End: 03-19-2025 Continuous Glucose Water Valve Mechanic (FreeStyle Era 2 [place]) device Indications: Type 2 diabetes mellitus without complication, with long-term current use of insulin (CMS/HCC) 1 each in the morning and 1 each at noon and 1 each in the evening and 1 each before bedtime. 1 each 03/19/2024 03/19/2025 Active Start: 01-22-2024 End: 03-18-2024 Continuous Glucose Water Valve Mechanic (FreeStyle Era 2 [place]) device Indications: Type 2 diabetes mellitus without complication, with long-term current use of insulin (CMS/HCC) 1 each in the morning and 1 each at noon and 1 each in the evening and 1 each before bedtime. 1 each 01/22/2024 03/18/2024 Discontinued (Reorder) Start: 01-22-2024 End: 01-21-2025 Continuous Glucose Water Valve Mechanic (FreeStyle Era 2 [place]) device Indications: Type 2 diabetes mellitus without [...] Glucose Sensor (FreeStyle Era 2 Plus Sensor) [facility] Indications: Type 2 diabetes mellitus with diabetic polyneuropathy, with long-term current use of insulin (CMS/HCC) 1 each continuously for 28 days 2 each 04/27/2024 05/25/2024 Active Continuous Glucose Sensor (FreeStyle Era 3 Plus Sensor) misc (8 sources) Start: 07-23-2024 Continuous Glu cose Sensor (FreeStyle Era 3 Plus Sensor) [facility] USE 1 SENSOR EVERY 15 DAYS TO MONITOR BLOOD SUGAR. 07/23/2024 Active Start: 05-06-2024 End: 06-03-2024 Continuous Glucose Sensor (F reeStyle Era 3 Plus Sensor) [facility] Indications: Type 2 diabetes mellitus with diabetic polyneuropathy, with long-term current use of insulin (CMS/HCC) 1 each continuously for 28 days 2 each 05/06/2024 06/03/2024 Active End: 05-06-2024 Continuous Glucose Sensor (F reeStyle Era 3 Plus Sensor) [facility] 05/06/2024 Discontinued (Reorder) dapagliflozin 5 mg oral tablet (5 sources) Sodium-Glucose Cotransporter 2 Inhibitor Start: 07-29-2024 End: 10-27-2024 take 1 tablet by mouth once daily dapagliflozin (Farxiga) 5 MG Indications: Type 2 diabetes mellitus without complications Take 1 tablet (5 mg) by mouth Daily 90 tablet 07/29/2024 10/27/2024 Active Fluticasone-Umeclid in-Vilant (Trelegy Ellipta) 200-62.5-25 MCG/ACT aerosol powder (19 sources) Start: 07-29-2024 End: 08-28-2024 take 1 puff(s) by mouth once daily, then take 1 puff(s) by mouth once daily Fluticasone-Umecli din-Vilant (Trelegy Ellipta) 200-62.5-25 MCG/ACT aerosol powder Indications: Severe persistent asthma without complication (CMS/HCC) Inhale 1 puff Daily INHALE 1 PUFF ONCE DAILY, rinse mouth after use 1 each 5 07/29/2024 08/28/2024 Active Start: 01-22-2024 take 1 puff(s) by inhalation once daily Jsineamjzxe-Llcvenxau-Ltexwk (Trelegy Ellipta) 200-62.5-25 MCG/ACT aerosol powder Indications: Severe persistent asthma without complication (CMS/HCC) Inhale 1 puff Daily 3 each 01/22/2024 Active Start: 01-22-2024 End: 04-21-2024 take 1 puff(s) by inhalation once daily Opubbwiraxc-Zaihntour-Hkpoll (Trelegy Ellipta) 200-62.5-25 MCG/ACT aerosol powder Indications: Severe persistent asthma without complication (CMS/HCC) Inhale 1 puff Daily 3 each 01/22/2024 04/21/2024 Active Start: 05-08-2023 End: 01-22-2024 take 1 puff(s) by inhalation in the morning Ptfnxtttpcz-Ypbepdndo-Rvpbex (Trelegy Ellipta) 200-62.5-25 MCG/ACT aerosol powder Indications: Severe persistent asthma without complication (CMS/HCC) Inhale 1 puff in the morning. 3 each 05/08/2023 01/22/2024 Discontinued (Reorder) Start: 05-08-2023 take 1 puff(s) by inhalation in the morning Wwlbmzylikh-Rlacuzzbw-Jpmxmq (Trelegy Ellipta) 200-62.5-25 MCG/ACT aerosol powder Indications: Severe persistent asthma without complication (CMS/HCC) Inhale 1 puff in the morning. 3 each 05/08/2023 Active Muryqoonosk-Lianyxgva-Mbmzsf er (4 sources) Start: 12-22-2021 Rkooriatgzk-Yfssjplms-Xyetvx er (Trelegy Ellipta) 200-62.5-25 mcg Blister With [...] Daily Active glipiZIDE 5 mg oral tablet (20 sources) Sulfonylurea Start: 08-18-2024 End: 02-14-2025 take 1 tablet by mouth in the morning glipiZIDE (Glucotrol) 5 MG tablet Indications: Type 2 diabetes mellitus with diabetic polyneuropathy, with long-term current use of insulin (CMS/HCC) Take 1 tablet (5 mg) by mouth in the morning and 1 tablet (5 mg) in the evening. Take before meals. 180 tablet 1 08/18/2024 02/14/2025 Active Start: 10-24-2023 End: 07-20-2024 take 1 tablet [...] Thiazide Diuretic, Angiotensin 2 Receptor Blanca Start: 08-18-2024 End: 02-14-2025 take 1 tablet by mouth once daily losartan-hydroCHLOROthiazide (Hyzaar) 100-25 MG tablet Indications: Primary hypertension (CMS/HCC) Take 1 tablet by mouth Daily 90 tablet 1 08/18/2024 02/14/2025 Active Start: 10-24-2023 End: 07-20-2024 take 1 tablet by mouth once daily losartan-hydroCHLOROthiazide (Hyzaar) 10 0-25 MG tablet Indications: Primary hypertension (CMS/HCC) Take [...] glargine-yfgn (Semgl ee, yfgn,) 100 UNIT/ML injection (20 sources) Start: 04-27-2024 End: 04-27-2025 insulin glargine-yfgn [...] the skin at bedtime 7.5 mL 01/22/2024 04/27/2024 Discontinued (Dose adjustment) Start: 01-22-2024 [...] mg oral tablet (20 sources) Biguanide Start: 08-18-2024 End: 02-14-2025 take 1 tablet by mouth in the morning metFORMIN (Glucophage) 850 MG tablet Indications: Hyperlipidemia, unspecified hyperlipidemia type (CMS/HCC) Take 1 tablet (850 mg) by mouth in the morning and 1 tablet (850 mg) in the evening. Take with meals. 180 tablet 1 08/18/2024 02/14/2025 Active Start: 10-24-2023 End: 07-20-2024 take 1 tablet [...] 12-22-2021 take 850 mg by mouth once daily Metformin Active 850 MG PO Daily December 22, 2021 12:00am [place] 6-Ljn-Wfk-Fish Oil (Fish Oil) 1,200 (144-216) mg Capsule (4 sources) Start: 12-22-2021 take 1 capsule by mouth twice daily [place] 6-Tae-Zgx-Fish Oil (Fish Oil) 1,200 (144-216) mg Capsule Active 1 CAP PO Twice daily December 22, 2021 12:00am omeprazole 40 mg delayed release oral capsule (20 sources) Proton Pump Inhibitor Start: 10-24-2023 End: 02-14-2025 take 1 capsule by mouth before mealtime omeprazole (PriLOSEC) [address] capsule Indications: Gastroesophageal reflux disease without esophagitis Take 1 capsule (40 mg) by mouth in the morning. Take before meals. 90 capsule 1 08/18/2024 02/14/2025 Active Start: 12-22-2021 take 40 mg by mouth once daily in the morning Omeprazole Active 40 MG PO Every morning December 22, 2021 12:00am spironolactone 50 mg oral tablet (20 sources) Aldosterone Antagonist Start: 08-19-2024 End: 11-17-2024 take 2 tablets by mouth once daily spironolactone (Aldactone) 50 MG tablet Indications: Resistant hypertension (CMS/HCC) Take 2 tablets (100 mg) by mouth Daily 180 tablet 08/19/2024 11/17/2024 Active Start: 10-24-2023 End: 10-24-2024 take 1 tablet [...] Sig (Normalized) Sig (Original) Continuous Blood Gluc Water Valve Mechanic (FreeStyle Era 2 [place]) device (3 sources) Start: 07-18-2023 End: 01-22-2024 Continuous Blood Gluc Water Valve Mechanic (FreeStyle Era 2 [place]) device Indications: Type 2 diabetes mellitus without complication, with long-term current use of insulin (CMS/HCC) 1 each in the morning and 1 each at noon and 1 each in the evening and 1 each before bedtime. 1 each 07/18/2023 01/22/2024 Discontinued (Reorder) Start: 07-18-2023 End: 07-17-2024 Continuous Blood Gluc Receiv er (FreeStyle Era 2 [place]) device Indications: Type 2 diabetes mellitus without [...] polyneuropathy, with long-term current use of insulin ([facility]/HCC) Inject 25 Units under the skin at [...] 09-14-2021 08-07-2023 Chronic Diabetes mellitus without complication (14 sources) Type 2 diabetes mellitus without complications; [...] disorder] Onset: 07-07-2022 Resolved: 07-29-2024 Chronic Mycoses (3 sources) Onychomycosis; Translations: [Tinea unguium] 02-24-2024 Episodic Other aftercare (8 sources) Long-term current use of insulin; Translations: [halfway (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] Onset: 07-29-2024 07-29-2024 Episodic Other bone disease and musculoskeletal deformities (4 sources) Idiopathic aseptic necrosis of right ankle; Translations: [IDIOPATH ASEPTIC NECROSIS RT ANKLE] Onset: 11-14-2021 Chronic Other bone disease and musculoskeletal deformities (8 sources) Idiopathic aseptic necrosis of right foot; Translations: [Aseptic necrosis of bone, other] Onset: 07-29-2024 07-29-2024 Chronic Other nutritional; endocrine; and metabolic disorders (8 sources) Obesity caused by energy imbalance; Translations: [Morbid (severe) obesity due to excess calories] Onset: 07-29-2024 07-29-2024 Chronic Other nutritional; endocrine; and metabolic disorders (8 sources) Body mass index 30+ - obesity; Translations: [Body mass index (BMI) 38.0-38.9, adult] Onset: 07-29-2024 07-29-2024 Chronic Other screening for suspected conditions (not mental disorders or infectious disease) (4 sources) Serum creatinine raised; Translations: [Other specified abnormal findings of blood chemistry] Onset: 08-19-2024 08-19-2024 Episodic Other skin disorders (3 sources) Dystrophia unguium; Translations: [Nail dystrophy] 02-24-2024 Episodic Residual codes; unclassified (3 sources) Bilateral lower limb edema; Translations: [Localized edema] Onset: 08-18-2024 08-18-2024 Episodic Unclassified (1 source) Second degree hemorrhoids; [...] Problem Date Documented Da te Episodic/Chronic Hemorrhoids (20 sources) Hemorrhoids; Translations: [Unspecified hemorrhoids] Onset: 08-07-2023 [...] AUTO DIFFon BASOPHILS ABSOLUTE AUTO 0.1 N [facility] Basophils/100 WBC (Bld) 0.8 % 0.2 - 2.0 % [facility] Eosinophils/100 WBC (Bld) 7.1 % High 0.9 - 7.0 % [facility] Erythrocyte distribution width (RBC) [Ratio] 13.2 % 11.0 - 15.0 % [facility] Hematocrit (Bld) [Volume fraction] 39.4 % Low 42.0 - 54.0 % [facility] Hemoglobin (Bld) [Mass/Vol] 13.4 g/dL Low 14.0 - 18.0 g/dL [facility] IMMATURE GRANULOCYTES ABS AUTO 0.07 High [facility] Immature granulocytes/100 WBC (Bld) 1.2 % High 0.0 - 0.5 % [facility] Interpretation and review of laboratory results Abnormal [facility] LYMPHOCYTES ABSOLUTE AUTO 2 [facility] Lymphocytes/100 WBC (Bld) 32.4 % 20.5 - 60.0 % [facility] MCH (RBC) [Entitic mass] 29.6 pg 25. 9 - 34.0 pg [facility] MCHC (RBC) [Mass/Vol] 34 g/dL 29.9 - 35.2 g/dL [facility] MCV (RBC) [Entitic vol] 87 fL 80.0 - 94.0 fL [facility] MONOCYTES ABSOLUTE AUTO 0.4 N [facility] Monocytes/100 WBC (Bld) 6.4 % 1.7 - 12.0 % [facility] NEUTROPHILS ABSOLUTE AUTO 3.2 [facility] Neutrophils/100 WBC (Bld) 52.1 % 43.0 - 75.0 % [facility] Platelet mean volume (Bld) [Entitic vol] 10.5 fL 9.5 - 13.5 fL [facility] EO # 0.4 [facility] PLT 173 [facility] RBC 4.53 Low [facility] WBC 6.1 [facility] ALL LIPID PROFILE (FASTING)o n 01-25-2024 CHOL HDL RATIO 3.4 [facility] Comment on above: 3.3 - 4.4 LOW RISK 4.4 - 7.1 AVERAGE RISK 7.1 - 11.0 MODERATE RISK >11.0 HIGH RISK Cholesterol [Mass/Vol] 149 mg/dL NINF - 200 mg/dL [facility] Cholesterol in HDL [Mass/Vol] 44 mg/dL 40 - 60 mg/dL [facility] Comment on above: > or =60 mg/dl - LOW CARDIOVASCULAR RISK <40 mg/dl - HIGH CARDIOVASCULAR RISK Magnesium [Mass/Vol] 70.0 mg/dL [facility] Comment on above: <100 mg/dl OPTIMAL 100-129 mg/dl NEAR OR ABOVE OPTIMAL 130-159 mg/dl BORDERLINE HIGH 160-189 mg/dl HIGH >190 mg/dl VERY HIGH Magnesium [Mass/Vol] 35.6 mg/dL [facility] Triglyceride [Mass/Vol] 178 mg/dL High NINF - 150 mg/dL [facility] CMP (CMP) (FOR REMOTE FH C USE)on 01-25-2024 Albumin [Mass/Vol] 3.3 g/dL Low 3.4 - 5.0 g/dL [facility] ALBUMIN GLOBULIN RATIO 0.8 NO [facility] ALP [Catalytic activity/Vol] 63 U/L 46 - 116 U/L [facility] ALT [Catalytic activity/Vol] 46 U/L 16 - 63 U/L [facility] Anion gap [Moles/Vol] 13.2 mmol/L [facility] AST [Catalytic activity/Vol] 21 U/L 15 - 37 U/L [facility] Bilirubin [Mass/Vol] 1.0 mg/dL 0.2 - 1 .0 mg/dL [facility] Calcium [Mass/Vol] 8.8 mg/dL 8.5 - 10. 1 mg/dL [facility] Chloride [Moles/Vol] 103 mmol/L 98 - 10 7 mmol/L [facility] CO2 [Moles/Vol] 27.3 mmol/L 21.0 - 32.0 mmol/L [facility] Creatinine [Mass/Vol] 1.09 mg/dL 0.70 - 1.30 mg/dL [facility] GFR/1.73 sq M.predicted CKD-EPI (S/P/Bld) [Vol rate/Area] >60 60 - PINF [facility] Globulin (S) [Mass/Vol] 4.0 g/dL [facility] Glucose [Mass/Vol] 147 mg/dL High 74 - 106 mg/dL [facility] Potassium [Moles/Vol] 4.5 mmol/L 3.5 - 5.1 mmol/L [facility] Protein [Mass/Vol] 7.3 g/dL 6.4 - 8.2 g/dL [facility] Sodium [Moles/Vol] 139 mmol/L 136 - 145 mmol/L [facility] EGFR-NON AF [place] >60 60 - PINF [facility] Urea nitrogen [Mass/Vol] 28.0 mg/dL High 7.0 - 18.0 mg/dL [facility] Urea nitrogen/Creatinine [Mass ratio] 25.7 mg/mg [facility] No Panel Informationon 01-24 Interpretation and review of laboratory results Abnormal [facility] Glucose Glucometer (BldC) [M ass/Vol]Ordered By: Silver Briceño on 09-10-2022 Glucose [Mass/Vol] 137 mg/dL [facility] Comment on above: Random Glucose Refer ence Range is dependent on time and content of last meal. Glucose of more than 200 mg/dL in a nonstressed, ambulatory subject supports the diagnosis of Diabetes Mellitus. Glucose [Mass/Vol] 131 mg/dL [facility] Comment on above: Random Glucose Refer ence Range is dependent on time and content of last meal. Glucose of more than 200 mg/dL in a nonstressed, ambulatory subject supports the diagnosis of Diabetes Mellitus. Glucose Poct Glucometerson 0 09-10-2022 Glucose [Mass/Vol] 137 mg/dL Normal [facility] Comment on above: Result Comment: [place] om Glucose Reference Range is dependent on time and content of last meal. Glucose of more than 200 mg/dL in a nonstressed, ambulatory subject supports the diagnosis of Diabetes Mellitus. PERFORMED BY: [facility] [address] [place] [address] PATHOLOGIST EMERGENCY SPECIALIST TEOFILO KHAN M.D. Performed By: #### G RUDOLPH #### Point of Care testing , Glucose [Mass/Vol] 131 mg/dL Normal [facility] Comment on above: Result Comment: [place] om Glucose Reference Range is dependent on time and content of last meal. Glucose of more than 200 mg/dL in a nonstressed, ambulatory subject supports the diagnosis of Diabetes Mellitus. PERFORMED BY: [facility] [address] [place] [address] PATHOLOGIST EMERGENCY SPECIALIST TEOFILO KHAN M.D. Performed By: #### G RUDOLPH #### Point of Care testing , Basic Metabolic Panelon 04-0 Anion gap [Moles/Vol] 13.5 mmol/L Normal 6.0-15.0 [facility] Comment on above: Performed By: #### C BC, BMP #### [facility] [address] [place] [address] [place] Calcium [Mass/Vol] 9.4 mg/dL Normal 8.6-10.3 [facility] Comment on above: Result Comment: PERF ORMED BY: [facility] [address] [place] [address] PATHOLOGIST EMERGENCY SPECIALIST TEOFILO KHAN M.D. Performed By: #### C BC, BMP #### [facility] [address] [place] [address] [place] Chloride [Moles/Vol] 102 mmol/L Normal 98-107 [facility] Comment on above: Performed By: #### C BC, BMP #### [facility] [address] [place] [id number] [place] CO2 [Moles/Vol] 28.5 mmol/L Normal 21.0-31.0 [facility] Comment on above: Performed By: #### C BC, BMP #### [facility] [address] [place] [id number] [place] Creatinine [Mass/Vol] 0.99 mg/dL Normal 0.70-1.30 [facility] Comment on above: Performed By: #### C BC, BMP #### [facility] [address] [place] [address] [place] GFR/1.73 sq M.predicted MDRD (S/P/Bld) [Vol rate/Area] mL/min/{1.73_m2} Normal [facility] Comment on above: Performed By: #### C BC, BMP #### [facility] [address] [place] [address] [place] Glucose [Mass/Vol] 114 mg/dL High 70-100 [facility] Comment on above: Result Comment: [place] Glucose Reference Range is dependent on time and content of last meal. Glucose of more than 200 mg/dL in a nonstressed, ambulatory subject supports the diagnosis of Diabetes Mellitus. ADA recommended reference range Performed By: #### C BC, BMP #### [facility] [address] [place] [id number] [place] Potassium [Moles/Vol] 4.0 mmol/L Normal 3.5-5.1 [facility] Comment on above: Performed By: #### C BC, BMP #### [facility] [address] [place] [id number] [place] Sodium [Moles/Vol] 140 mmol/L Normal 136-145 [facility] Comment on above: Performed By: #### C BC, BMP #### [facility] [address] [place] [id number] [place] Urea nitrogen [Mass/Vol] 21 mg/dL Normal 7-25 [facility] Comment on above: Performed By: #### C BC, BMP #### [facility] [address] [place] [address] [place] Basophils Auto (Bld) [#/Vol] Ordered By: Silver Briceño on 08-30-2022 Basophils (Bld) [#/Vol] 0.0 10*3/uL 0.0-0.2 [facility] Basophils/100 WBC Auto (Bld) Ordered By: Silver Briceño on 08-30-2022 Basophils/100 WBC (Bld) 0.7 % . [facility] Calcium [Mass/volume] in Ser um or PlasmaOrdered By: Silver Briceño on 08-30-2022 Calcium [Mass/Vol] 9.4 mg/dL 8.6-10.3 [facility] Carbon dioxide, total [Moles /volume] in Serum or PlasmaOrdered By: Silver Briceño on 08-30-2022 CO2 [Moles/Vol] 28.5 mmol/L 21.0-31.0 [facility] Chloride [Moles/volume] in S gela or PlasmaOrdered By: Silver Briceño on 08-30-2022 Chloride [Moles/Vol] 102 mmol/L 98-107 [facility] Complete Blood Count Auto Di ffon 08-30-2022 Basophils (Bld) [#/Vol] 0.0 10*3/uL Normal 0.0-0.2 [facility] Comment on above: Result Comment: PERF ORMED BY: [place] [address] PATHOLOGIST EMERGENCY SPECIALIST TEOFILO KHAN M.D. Performed By: #### C BC, BMP #### [place] [address] [place] Basophils/100 WBC (Bld) 0.7 % Normal . [facility] Comment on above: Performed By: #### C BC, BMP #### [facility] [address] [place] [address] [place] Eosinophils (Bld) [#/Vol] 0.3 10*3/uL Normal 0.0-0.45 [facility] Comment on above: Performed By: #### C BC, BMP #### [place] [address] Eosinophils/100 WBC (Bld) 6.1 % Normal . [facility] Comment on above: Performed By: #### C BC, BMP #### [address] Erythrocyte distribution width (RBC) [Ratio] 14.5 % Normal 12.0-14.8 [facility] Comment on above: Performed By: #### C BC, BMP #### [address] Hematocrit (Bld) [Volume fraction] 36.5 % Low 38.8-50.0 [facility] Comment on above: Performed By: #### C BC, BMP #### [address] Hemoglobin (Bld) [Mass/Vol] 12.5 g/dL Low 13.0-17.0 [facility] Comment on above: Performed By: #### C BC, BMP #### [address] Lymphocytes (Bld) [#/Vol] 1.8 10*3/uL Normal 1.00-4.8 [facility] Comment on above: Performed By: #### C BC, BMP #### [address] Lymphocytes/100 WBC (Bld) 35.5 % Normal . [facility] Comment on above: Performed By: #### C BC, BMP #### [address] MCH (RBC) [Entitic mass] 29.2 pg Normal 27.5-35.2 [facility] Comment on above: Performed By: #### C BC, BMP #### [address] MCV (RBC) [Entitic vol] 85.1 fL Normal 83.5-101 [facility] Comment on above: Performed By: #### C BC, BMP #### [address] Mean Corpuscular HGB Conc 34.3 g/dL Normal 32.5-35.6 [facility] Comment on above: Performed By: #### C BC, BMP #### [address] Monocytes (Bld) [#/Vol] 0.4 10*3/uL Normal 0.0-0.8 [facility] Comment on above: Performed By: #### C BC, BMP #### [address] Monocytes/100 WBC (Bld) 8.2 % Normal . [facility] Comment on above: Performed By: #### C BC, BMP #### [address] Neutrophils (Bld) [#/Vol] 2.5 10*3/uL Normal 1.8-7.7 [facility] Comment on above: Performed By: #### C BC, BMP #### [address] Neutrophils/100 WBC (Bld) 49.5 % Normal . [facility] Comment on above: Performed By: #### C BC, BMP #### [address] NRBC% 0.2 /100{WBC} Normal 0-0.5 [facility] Comment on above: Performed By: #### C BC, BMP #### [address] Platelet mean volume (Bld) [Entitic vol] 8.8 fL Normal 6.6-10.1 [facility] Comment on above: Performed By: #### C BC, BMP #### [place] [address] [place] Platelets (Bld) [#/Vol] 155 10*3/uL Normal 150-450 [facility] Comment on above: Performed By: #### C BC, BMP #### [place] [address] [place] RBC (Bld) [#/Vol] 4.29 10*6/uL Normal 3.90-5.60 [facility] Comment on above: Performed By: #### C SAI, BMP #### [facility] [address] WBC (Bld) [#/Vol] 5.1 10*3/uL Normal 4.1-10.5 [facility] Comment on above: Performed By: #### C SAI, BMP #### [address] Creatinine [Mass/volume] in Serum or PlasmaOrdered By: Silver Briceño on 08-30-2022 Creatinine [Mass/Vol] 0.99 mg/dL 0.70-1.30 [facility] ECG 12 lead ECGon 08-30-2022 ECG 12 lead ECG [facility] Main [place] [address] [place] [address] Electrocardiograph Report Signed Patient: Dante Dietz MR#: [id number] : 1965 Acct:[id number] Age/Sex: 57 / M ADM Date: 08/30/22 Loc: Room: Type: [facility] Attending Dr: Silver Briceño DO Ordering [...] previous ECGs available Confirmed by KATE GUPTA [facility] ([id number]) on 08/31/2022 12:23:25 PM Referred By: FREDDY Electronically Signed By:LEANNA LOVE MD, FACC Transcribed By: MUS Signed By Leo Love MD 08/31/22 1223 [facility] Eosinophils Auto (Bld) [#/Vo l]Ordered By: Silver Briceño on 08-30-2022 Eosinophils (Bld) [#/Vol] 0.3 10*3/uL 0.0-0.45 [facility] Eosinophils/100 WBC Auto (Bl d)Ordered By: Silver Briceño on 08-30-2022 Eosinophils/100 WBC (Bld) 6.1 % . [facility] Erythrocyte distribution wid th Auto (RBC) [Ratio]Ordered By: Silver Briceño on 08-30-2022 Erythrocyte distribution width (RBC) [Ratio] 14.5 % 12.0-14.8 [facility] Glucose [Mass/volume] in Ser um or PlasmaOrdered By: Silver Briceño on 08-30-2022 Glucose [Mass/Vol] 114 mg/dL 70-100 [facility] Comment on above: ADA recommended refe rence rangeRandom Glucose Reference Range is dependent on time and content of last meal. Glucose of more than 200 mg/dL in a nonstressed, ambulatory subject supports the diagnosis of Diabetes Mellitus. Hematocrit Auto (Bld) [Volum e fraction]Ordered By: Silver Briceño on 08-30-2022 Hematocrit (Bld) [Volume fraction] 36.5 % 38.8-50.0 [facility] Hemoglobin [Mass/volume] in BloodOrdered By: Silver Briceño on 08-30-2022 Hemoglobin (Bld) [Mass/Vol] 12.5 g/dL 13.0-17.0 [facility] Leukocytes [#/volume] correc shashi for nucleated erythrocytes in Blood by Automated counOrdered By: Silver Briceño on 08-30-2022 WBC corrected for nucl RBC Auto (Bld) [#/Vol] 5.1 10*3/uL 4.1-10.5 [facility] Lymphocytes Auto (Bld) [#/Vo l]Ordered By: Silver Briceño on 08-30-2022 Lymphocytes (Bld) [#/Vol] 1.8 10*3/uL 1.00-4.8 [facility] Lymphocytes/100 WBC Auto (Bl d)Ordered By: Silver Briceño on 08-30-2022 Lymphocytes/100 WBC (Bld) 35.5 % . [facility] MCH Auto (RBC) [Entitic mass ]Ordered By: Silver Briceño on 08-30-2022 MCH (RBC) [Entitic mass] 29.2 pg 27.5-35.2 [facility] MCHC Auto (RBC) [Mass/Vol]Or dered By: Silver Briceño on 08-30-2022 MCHC (RBC) [Mass/Vol] 34.3 g/dL 32.5-35.6 [facility] MCV Auto (RBC) [Entitic vol] Ordered By: Silver Briceño on 08-30-2022 MCV (RBC) [Entitic vol] 85.1 fL 83.5-101 [facility] Monocytes Auto (Bld) [#/Vol] Ordered By: Silver Briceño on 08-30-2022 Monocytes (Bld) [#/Vol] 0.4 10*3/uL 0.0-0.8 [facility] Monocytes/100 WBC Auto (Bld) Ordered By: Silver Briceño on 08-30-2022 Monocytes/100 WBC (Bld) 8.2 % . [facility] Neutrophils Auto (Bld) [#/Vo l]Ordered By: Silver Briceño on 08-30-2022 Neutrophils (Bld) [#/Vol] 2.5 10*3/uL 1.8-7.7 [facility] Neutrophils/100 WBC Auto (Bl d)Ordered By: Silver Briceño on 08-30-2022 Neutrophils/100 WBC (Bld) 49.5 % . [facility] No Panel InformationOrdered By: Silver Briceño on 08-30-2022 Estimated GFR (CKD-EPI) > 60.0 mL/Min [facility] Pharmacy Creatinine Clearance (Chem N/A [facility] Nucleated erythrocytes [Pres ence] in Blood by Automated countOrdered By: Silver Briceño on 08-30-2022 Nucleated RBC Auto Ql (Bld) 0.2 /100{WBC} 0-0.5 [facility] Platelet mean volume Auto (B ld) [Entitic vol]Ordered By: Silver Briceño on 08-30-2022 Platelet mean volume (Bld) [Entitic vol] 8.8 fL 6.6-10.1 [facility] Platelets Auto (Bld) [#/Vol] Ordered By: Silver Briceño on 08-30-2022 Platelets (Bld) [#/Vol] 155 10*3/uL 150-450 [facility] Potassium [Moles/volume] in Serum or PlasmaOrdered By: Silver Briceño on 08-30-2022 Potassium [Moles/Vol] 4.0 mmol/L 3.5-5.1 [facility] RBC Auto (Bld) [#/Vol]Ordere d By: Silver Briceño on 08-30-2022 RBC (Bld) [#/Vol] 4.29 10*6/uL 3.90-5.60 [facility] Serum or plasma anion gap de terminationOrdered By: Silver Briceño on 08-30-2022 Anion gap [Moles/Vol] 13.5 mmol/L 6.0-15.0 [facility] Sodium [Moles/volume] in Ser um or PlasmaOrdered By: Silver Briceño on 08-30-2022 Sodium [Moles/Vol] 140 mmol/L 136-145 [facility] Urea nitrogen [Mass/volume] in Serum or PlasmaOrdered By: Silver Briceño on 08-30-2022 Urea nitrogen [Mass/Vol] 21 mg/dL 7-25 [facility] WBC Auto (Bld) [#/Vol]Ordere d By: Silver Briceño on 08-30-2022 WBC (Bld) [#/Vol] 5.1 10*3/uL 4.1-10.5 [facility] GLYCOHEMOGLOBIN A1Con 2022 ADA RECOMMENDATION SEE BELOW Normal [facility] Comment on above: Result Comment: ADA RECOMMENDED LIMIT 4.0 - 6.0 ADA THERAPEUTIC TARGET < 7.0 ACTION SUGGESTED > 7.0 Performed By: #### A 1C #### [facility] [address] [address] [address] Idania Tai Glucose [Mass/Vol] 243 mg/dL Normal [facility] Comment on above: Performed By: #### A 1C #### [facility] [address] [place], [place] [address] Dr. Idania Tai HbA1c (Bld) [Mass fraction] 10.1 % Critically high 4.5-6.2 [facility] Comment on above: Performed By: #### A 1C #### [facility] [address] [address] [address] Idania Tai LIPID PROFILEon 07-07-2022 CHOL-HDL RATIO NORM SEE BELOW Normal [facility] Comment on above: Result Comment: 3.3 - 4.4 LOW RISK 4.4 - 7.1 AVERAGE RISK 7.1 - 11.0 MODERATE RISK >11.0 HIGH RISK Performed By: #### B MP, LIPID #### [facility] [address] [place], [place] [address] Dr. Idania Tai Cholesterol [Mass/Vol] 172 mg/dL Normal <=200 [facility] Comment on above: Performed By: #### B MP, LIPID #### [facility] [address] [address] [address] Idania Tai Cholesterol in HDL [Mass/Vol] 48 mg/dL Normal 40-60 [facility] Comment on above: Performed By: #### B MP, LIPID #### [facility] [address] [address] [address] Idania Tai Cholesterol in LDL [Mass/Vol] 95.6 mg/dL Normal [facility] Comment on above: Performed By: #### B MP, LIPID #### [facility] [address] [place], [place] [address] Dr. Idania Tai Cholesterol.total/Choles terol in HDL [Mass ratio] 3.6 {ratio} Normal [facility] Comment on above: Performed By: #### B MP, LIPID #### [facility] [address] [place], [place] [address] Dr. Idania Tai HDL NORMAL > or = 60 mg/dl - LOW CARDIOVASCULAR RISK <40 mg/dl - HIGH CARDIOVASCULAR RISK Normal [facility] Comment on above: Performed By: #### B MP, LIPID #### [facility] [address] [id number] Idania Tai LDL CALC NORMAL SEE BELOW Normal [facility] Comment on above: Result Comment: <100 mg/dl OPTIMAL 100 - 129 mg/dl NEAR OR ABOVE OPTIMAL 130 - 159 mg/dl BORDERLINE HIGH 160 - 189 mg/dl HIGH >190 mg/dl VERY HIGH Performed By: #### B MP, LIPID #### [facility] [address] [place] [address] Dr. Idania Tai Triglyceride [Mass/Vol] 142 mg/dL Normal <=150 [facility] Comment on above: Performed By: #### B MP, LIPID #### [facility] [address] [place] [address] Dr. Idania Tai VLDL CALC 28.4 mg/dL Normal [facility] Comment on above: Performed By: #### B MP, LIPID #### [facility] [address] [place] [address] Dr. Idania Tai PROF CHEM 8 (BAS METB)on Anion gap [Moles/Vol] 11.0 mmol/L Normal [facility] Comment on above: Performed By: #### B MP, LIPID #### [facility] [address] [place] [address] Dr. Idania Tai Calcium [Mass/Vol] 9.1 mg/dL Normal 8.5-10.1 [facility] Comment on above: Performed By: #### B MP, LIPID #### [facility] [address] [place] [address] Dr. Idania Tai Chloride [Moles/Vol] 100 mmol/L Normal 98-107 [facility] Comment on above: Performed By: #### B MP, LIPID #### [facility] [address] [place] [address] Dr. Idania Tai CO2 [Moles/Vol] 32.6 mmol/L Critically high 21.0-32.0 [facility] Comment on above: Performed By: #### B MP, LIPID #### [facility] [address] [place] [address] Dr. Idania Tai Creatinine [Mass/Vol] 0.81 mg/dL Normal 0.70-1.30 [facility] Comment on above: Performed By: #### B MP, LIPID #### [facility] [address] [place] [address] Dr. Idania Tai EGFR-AF VIET[place]ESE >60 Normal >=60 [facility] Comment on above: Performed By: #### B MP, LIPID #### [facility] [address] [place] [address] Dr. Idania Tai EGFR-NON AF VIET[place]ESE >60 Normal >=60 [facility] Comment on above: Performed By: #### B MP, LIPID #### [facility] [address] [place] [address] Dr. Idania Tai Glucose [Mass/Vol] 157 mg/dL Critically high 74-106 T [facility] Comment on above: Performed By: #### B MP, LIPID #### [facility] [address] [place] [address] Dr. Idania Tai Potassium [Moles/Vol] 3.6 mmol/L Normal 3.5-5.1 [facility] Comment on above: Performed By: #### B MP, LIPID #### [facility] [address] [place] [address] Dr. Idania Tai Sodium [Moles/Vol] 140 mmol/L Normal 136-145 [facility] Comment on above: Performed By: #### B MP, LIPID #### [facility] [address] [place] [address] Dr. Idania Tai Urea nitrogen [Mass/Vol] 16.0 mg/dL Normal 7.0-18.0 [facility] Comment on above: Performed By: #### B MP, LIPID #### [facility] [address] [place] [address] Dr. Idania Tai Urea nitrogen/Creatinine [Mass ratio] 19.8 mg/mg Normal [facility] Comment on above: Performed By: #### B MP, LIPID #### [facility] [address] [place] [address] Dr. Idania Tai PROF CHEM 8 (BAS METB)on Anion gap [Moles/Vol] 16.1 mmol/L Normal [facility] Comment on above: Performed By: #### B MP #### [facility] [address] [place] [address] Dr. Idania Tai Calcium [Mass/Vol] 9.4 mg/dL Normal 8.5-10.1 [facility] Comment on above: Performed By: #### B MP #### [facility] [address] [address] [address] Idania Tai Chloride [Moles/Vol] 98 mmol/L Normal 98-107 [facility] Comment on above: Performed By: #### B MP #### [facility] [address] [address] [address] Idania Tai CO2 [Moles/Vol] 26.0 mmol/L Normal 21.0-32.0 [facility] Comment on above: Performed By: #### B MP #### [facility] [address] [place] [address] Dr. Idania Tai Creatinine [Mass/Vol] 0.78 mg/dL Normal 0.70-1.30 [facility] Comment on above: Performed By: #### B MP #### [facility] [address] [place] [address] Dr. Idania Tai EGFR-AF VIET[place]ESE >60 Normal >=60 [facility] Comment on above: Performed By: #### B MP #### [facility] [address] [place] [address] Dr. Idania Tai EGFR-NON AF VIET[place]ESE >60 Normal >=60 [facility] Comment on above: Performed By: #### B MP #### [facility] [address] [place] [address] Dr. Idania Tai Glucose [Mass/Vol] 131 mg/dL Critically high 74-106 [facility] Comment on above: Performed By: #### B MP #### [facility] [address] [address] [address] Idania Tai Potassium [Moles/Vol] 4.1 mmol/L Normal 3.5-5.1 [facility] Comment on above: Performed By: #### B MP #### [facility] [address] [place] [address] Dr. Idania Tai Sodium [Moles/Vol] 136 mmol/L Normal 136-145 The [facility] Comment on above: Performed By: #### B MP #### [facility] [address] [place], [place] [address] Dr. Idania Tai Urea nitrogen [Mass/Vol] 19.0 mg/dL Critically high 7.0-18 .0 [facility] Comment on above: Performed By: #### B MP #### [facility] [address] [place], [place] [address] Dr. Idania Tai Urea nitrogen/Creatinine [Mass ratio] 24.4 mg/mg Normal [facility] Comment on above: Performed By: #### B MP #### [facility] [address] [place], [place] [address] Dr. Idania Tai Glucose Glucometer (dC) [M ass/Vol]Ordered By: Sav Andrews on 12-22-2021 Glucose [Mass/Vol] 113 mg/dL [facility] Comment on above: Random Glucose Refer ence Range is dependent on time and content of last meal. Glucose of more than 200 mg/dL in a nonstressed, ambulatory subject supports the diagnosis of Diabetes Mellitus. Glucose Poct Glucometerson 0 12-22-2021 Glucose [Mass/Vol] 113 mg/dL Normal [facility] Comment on above: Result Comment: [place] Glucose Reference Range is dependent on time and content of last meal. Glucose of more than 200 mg/dL in a nonstressed, ambulatory subject supports the diagnosis of Diabetes Mellitus. PERFORMED BY: [facility] [address] [place] [address] PATHOLOGIST EMERGENCY SPECIALIST TEOFILO KHAN M.D. Performed By: #### G [...] developed and its performance characteristic determined by [employer] and validated at [facility] This test has not been FDA cleared [...] for SARS Antigen by [facility] PERFORMED BY: [place] [address] PATHOLOGIST EMERGENCY SPECIALIST TEOFILO KHAN M.D. Normal [facility] Comment on above: Performed By: #### C OVID-19 MAYRA, SOFIANEG #### [address] COVID-19 SOFIAOrdered By: Bebe Andrews on 12-20-2021 SARS-CoV+SARS-CoV-2 (COVID-19) Ag IA.rapid Ql (Resp) Negative Negative [facility] Comment on above: This is a duplicate Mayra SARS Antigen (SIN) result to be used for statistical tracking purpose only. No Panel InformationOrdered By: Sav Andrews on 12-20-2021 SARS Antigen (LFIA) [facility] Mayra Ag Negativeon 12-21-19 Mayra Ag Negative Negative Normal Negative [facility] Comment on above: Result Comment: This is a duplicate Mayra SARS Antigen (SIN) result to be used for statistical tracking purpose only. PERFORMED BY: [place] [address] PATHOLOGIST EMERGENCY SPECIALIST TEOFILO KHAN M.D. Performed By: #### C OVID-19 MAYRA, JACKIANEG #### [address] ANKLE RT WO CONon 022 [...] severe tricompartmental osteoarthropathy of the knee with wmvz-ja-uohz articulation of the lateral compartment. SOFT TISSUES: Negative. No visible soft tissue swelling. EFFUSION: None visible. OTHER: Negative. IMPRESSION: Progression of subchondral degenerative cystic changes of the tibial plafond and calcaneus Moderate to severe knee osteoarthritis with aqla-xb-xiwm articulation of the lateral compartment Electronically authenticated by: GERA BLUM Date: 2021-11-14 16:32 Normal [facility] CBC AUTO DIFFon 09-11-2021 BASO # 0.1 103/ul Normal 0.0-0.1 [facility] Comment on above: Performed By: #### C BC ####[facility] [address] [address]DrAlly Tai Basophils/100 WBC (Bld) 0.8 % Normal 0.2-2.0 [facility] Comment on above: Performed By: #### C BC ####[facility] [address] [address]DrAlly Tai EO # 0.2 103/ul Normal 0.0-0.7 [facility] Comment on above: Performed By: #### C BC ####[facility] [address] [address]Dr. Idania Tai Eosinophils/100 WBC (Bld) 2.2 % Normal 0.9-7.0 [facility] Comment on above: Performed By: #### C BC ####[facility] [address] [place], [place] [address]Dr. Idania Tai Erythrocyte distribution width (RBC) [Ratio] 13.1 % Normal 11.0-15.0 [facility] Comment on above: Performed By: #### C BC ####[facility] [address] [place], [place] [address]Dr. Idania Tai Hematocrit (Bld) [Volume fraction] 44.5 % Normal 42.0-54.0 [facility] Comment on above: Performed By: #### C BC ####[facility] [address] [place], [place] [address]Dr. Idania Tai Hemoglobin (Bld) [Mass/Vol] 14.9 g/dL Normal 14.0-18.0 [facility] Comment on above: Performed By: #### C BC ####[facility] [address] [place], [place] [address]Dr. Idania Tai IG # 0.13 10e3/ul Critically high 0.00-0.[address] [facility] Comment on above: Performed By: #### C BC ####[facility] [address] [place], [place] [address]Dr. Idania Tai IG % 1.5 % Critically high 0.0-0.5 [facility] Comment on above: Performed By: #### C BC ####[facility] [address] [place], [place] [address]DrAlly Idania Tai LYMPH # 2.4 103/ul Normal 1.2-3.8 [facility] Comment on above: Performed By: #### C BC ####[facility] [address] [place], [place] [address]Dr. Idania Tai Lymphocytes/100 WBC (Bld) 27.7 % Normal 20.5-60.0 [facility] Comment on above: Performed By: #### C BC ####[facility] [address] [address]Dr. Idania Tai MANUAL DIFF REQ NO Normal [facility] Comment on above: Performed By: #### C BC ####[facility] [address] [address]Dr. Idania Tai MCH (RBC) [Entitic mass] 28.9 pg Normal 25.9-34.0 [facility] Comment on above: Performed By: #### C BC ####[facility] [address] [place], [place] [address]Dr. Idania Tai MCHC (RBC) [Mass/Vol] 33.5 g/dL Normal 29.9-35.2 [facility] Comment on above: Performed By: #### C BC ####[facility] [address] [place], [place] [address]Dr. Idania Tai MCV (RBC) [Entitic vol] 86.4 fL Normal 80.0-94.0 [facility] Comment on above: Performed By: #### C BC ####[facility] [address] [place], [place] [address]Dr. Idania Tai MONO # 0.6 103/ul Normal 0.3-0.8 [facility] Comment on above: Performed By: #### C BC ####[facility] [address] [place], [place] [address]Dr. Idania Tai Monocytes/100 WBC (Bld) 6.4 % Normal 1.7-12.0 [facility] Comment on above: Performed By: #### C BC ####[facility] [address] [place], [place] [address]Dr. Idania Tai NEUT # 5.3 103/ul Normal 1.4-6.5 [facility] Comment on above: Performed By: #### C BC ####[facility] [address] [place], [place] [address]Dr. Idania Zaire Neutrophils/100 WBC (Bld) 61.4 % Normal 43.0-75.0 [facility] Comment on above: Performed By: #### C BC ####[facility] [address] [address]Dr. Idania Tai Platelet mean volume (Bld) [Entitic vol] 9.7 fL Normal 9.5-13.5 [facility] Comment on above: Performed By: #### C BC ####[facility] [address] [address]Dr. Idania Zaire PLT 219 103/ul Normal 150-450 [facility] Comment on above: Performed By: #### C BC ####[facility] [address] [place], [place] [address]Dr. Idania Tai RBC 5.15 106/ul Normal 4.70-6.10 [facility] Comment on above: Performed By: #### C BC ####[facility] [address] [place], [place] [address]Dr. Idania Zaire WBC 8.6 103/ul Normal 4.0-11.0 [facility] Comment on above: Performed By: #### C BC ####[facility] [address] [place], [place] [address]DrAlly Idania Zaire GLYCOHEMOGLOBIN A1Con 2021 ADA RECOMMENDATION ADA THERAPEUTIC TARGET 6.0 - 7.0 ACTION SUGGESTED > 7.0 Normal [facility] Comment on above: Performed By: #### A 1C ####[facility] [address] [address]DrAlly Tai Glucose [Mass/Vol] 128 mg/dL Normal [facility] Comment on above: Performed By: #### A 1C ####[facility] [address] [address]DrAlly Colbygisselle Zaire HbA1c (Bld) [Mass fraction] 6.1 % Critically high <=6.0 [facility] Comment on above: Performed By: #### A 1C ####[facility] [address] [place], [place] [address]Dr. Idania Tai LIPID PROFILEon 09-11-2021 CHOL-HDL RATIO NORM SEE BELOW Normal [facility] Comment on above: Result Comment: 3.3 - 4.4 LOW RISK 4.4 - 7.1 AVERAGE RISK 7.1 - 11.0 MODERATE RISK >11.0 HIGH RISK Performed By: #### L IPID, CMP #### [facility] [address] [place], [place] [address] Dr. Idania Tai Cholesterol [Mass/Vol] 175 mg/dL Normal <=[address] [facility] Comment on above: Performed By: #### L IPID, CMP #### [facility] [address] [id number] Idania Tai Cholesterol in HDL [Mass/Vol] 54 mg/dL Normal 40-60 [facility] Comment on above: Performed By: #### L IPID, CMP #### [facility] [address] [address] [address] Idania Tai Cholesterol in LDL [Mass/Vol] 87.2 mg/dL Normal [facility] Comment on above: Performed By: #### L IPID, CMP #### [facility] [address] [address] [address] Idania Tai Cholesterol.total/Choles terol in HDL [Mass ratio] 3.2 {ratio} Normal [facility] Comment on above: Performed By: #### L IPID, CMP #### [facility] [address] [address] [address] Idania Tai HDL NORMAL > or = 60 mg/dl - LOW CARDIOVASCULAR RISK <40 mg/dl - HIGH CARDIOVASCULAR RISK Normal [facility] Comment on above: Performed By: #### L IPID, CMP #### [facility] [address] [id number] Idania Tai LDL CALC NORMAL SEE BELOW Normal [facility] Comment on above: Result Comment: <100 mg/dl OPTIMAL 100 - 129 mg/dl NEAR OR ABOVE OPTIMAL 130 - 159 mg/dl BORDERLINE HIGH 160 - 189 mg/dl HIGH >190 mg/dl VERY HIGH Performed By: #### L IPID, CMP #### [facility] [address] [address] [address] Idania Tai Triglyceride [Mass/Vol] 169 mg/dL Critically high <=150 [facility] Comment on above: Performed By: #### L IPID, CMP #### [facility] [address] [place] [address] Dr. Idania Tai VLDL CALC 33.8 mg/dL Normal [facility] Comment on above: Performed By: #### L IPID, CMP #### [facility] [address] [address] [address] Idania Tai MICROALBUMIN, RAND URon - mALB 1.9 mg/L Normal <=30.0 [facility] Comment on above: Performed By: #### M ALBR #### [facility] [address] [place] [address] Dr. Idania Tai PROF 14(COMP METB)on 022 Albumin [Mass/Vol] 3.7 g/dL Normal 3.4-5.0 [facility] Comment on above: Performed By: #### L IPID, CMP #### [facility] [address] [place] [address] Dr. Idania Tai Albumin/Globulin [Mass ratio] 0.9 {ratio} Normal [facility] Comment on above: Performed By: #### L IPID, CMP #### [facility] [address] [place] [address] Dr. Idania Tai ALP [Catalytic activity/Vol] 73 U/L Normal 46-116 [facility] Comment on above: Performed By: #### L IPID, CMP #### [facility] [address] [place] [address] Dr. Idania Tai ALT [Catalytic activity/Vol] 68 U/L Critically high 16-63 [facility] Comment on above: Performed By: #### L IPID, CMP #### [facility] [address] [place] [address] Dr. Idania Tai Anion gap [Moles/Vol] 10.2 mmol/L Normal [facility] Comment on above: Performed By: #### L IPID, CMP #### [facility] [address] [address] [address] Idania Tai AST [Catalytic activity/Vol] 30 U/L Normal 15-37 [facility] Comment on above: Performed By: #### L IPID, CMP #### [facility] [address] [address] [address] Idania Tai Bilirubin [Mass/Vol] 1.0 mg/dL Normal 0.2-1.3 [facility] Comment on above: Performed By: #### L IPID, CMP #### [facility] [address] [address] [address] Idania Tai Calcium [Mass/Vol] 8.5 mg/dL Normal 8.5-10.1 [facility] Comment on above: Performed By: #### L IPID, CMP #### [facility] [address] [place] [address] Dr. Idania Tai Chloride [Moles/Vol] 101 mmol/L Normal 98-107 [facility] Comment on above: Performed By: #### L IPID, CMP #### [facility] [address] [address] [address] Idania Tai CO2 [Moles/Vol] 31.6 mmol/L Critically high 22.0-30.0 [facility] Comment on above: Performed By: #### L IPID, CMP #### [facility] [address] [address] [address] Idania Tai Creatinine [Mass/Vol] 0.67 mg/dL Normal 0.66-1.25 [facility] Comment on above: Performed By: #### L IPID, CMP #### [facility] [address] [address] [address] Idania Tai EGFR-AF VIET[place]ESE >60 Normal >=60 [facility] Comment on above: Performed By: #### L IPID, CMP #### [facility] [address] [address] [address] Idania Tai EGFR-NON AF VIET[place]ESE >60 Normal >=60 [facility] Comment on above: Performed By: #### L IPID, CMP #### [facility] [address] [address] [address] Idania Tai Globulin (S) [Mass/Vol] 4.0 g/dL Normal [facility] Comment on above: Performed By: #### L IPID, CMP #### [facility] [address] [address] [address] Idania Tai Glucose [Mass/Vol] 114 mg/dL Critically high 74-106 [facility] Comment on above: Performed By: #### L IPID, CMP #### [facility] [address] [address] [address] Idania Tai Potassium [Moles/Vol] 4.8 mmol/L Normal 3.4-5.0 [facility] Comment on above: Performed By: #### L IPID, CMP #### [facility] [address] [place] [address] Dr. Idania Tai Protein [Mass/Vol] 7.7 g/dL Normal 6.1-8.2 [facility] Comment on above: Performed By: #### L IPID, CMP #### [facility] [address] [place] [address] Dr. Idania Tai Sodium [Moles/Vol] 138 mmol/L Normal 137-145 [facility] Comment on above: Performed By: #### L IPID, CMP #### [facility] [address] [place] [address] Dr. Idania Tai Urea nitrogen [Mass/Vol] 12.0 mg/dL Normal 7.0-18.0 [facility] Comment on above: Performed By: #### L IPID, CMP #### [facility] [address] [place] [address] Dr. Idania Tia Urea nitrogen/Creatinine [Mass ratio] 17.9 mg/mg Normal [facility] Comment on above: Performed By: #### L IPID, CMP #### [facility] [address] [place] [address] Dr. Idania Tai Vital Signs Date Time Vital Sign Value Performing Clinician Facility 08-24-2024 15:27-0400 Body height 167.6 cm Abisai Boateng DPM Work Phone: [facility] 08-24-2024 15:27-0400 Body mass index (BMI) [Ratio] 39.09 kg/m2 Abisai Boateng DPM Work Phone: [facility] 08-24-2024 15:27-0400 Body weight 109.86 kg Abisai Boateng DPM Work Phone: [facility] 07-29-2024 15:27-0500 Body height 167.6 cm Luciemma Uptonadanholz RN HEART Work Phone: [facility] 07-29-2024 15:27-0500 Body mass index (BMI) [Ratio] 39.29 kg/m2 Luci Aichholz RN HEART Work Phone: [facility] 07-29-2024 15:27-0500 Body temperature 97.81 [degF] Luci Alexsandrahholz RN HEART Work Phone: [facility] 07-29-2024 15:27-0500 Body weight 110.41 kg Luci Aichholz RN HEART Work Phone: [facility] 07-29-2024 15:27-0500 Diastolic blood pressure 120 mm[Hg] Luci Aichholz RN HEART Work Phone: [facility] 07-29-2024 15:27-0500 Heart rate 76 /min Luci Alexsandrahholz RN HEART Work Phone: [facility] 07-29-2024 15:27-0500 Respiratory rate 20 /min Luci Aichholz RN HEART Work Phone: [facility] 07-29-2024 15:27-0500 SaO2% (BldA) [Mass fraction] 97 % Luci Alexsandrahholz RN HEART Work Phone: [facility] 07-29-2024 15:27-0500 Systolic blood pressure 172 mm[Hg] Luci Aichholz RN HEART Work Phone: [facility] 04-27-2024 15:05-0500 Body height 167.6 cm Marquis Velasquez RN HEART Work Phone: [facility] 04-27-2024 15:05-0500 Body mass index (BMI) [Ratio] 38.41 kg/m2 Marquis Velasquez RN HEART Work Phone: [facility] 04-27-2024 15:05-0500 Body weight 107.96 kg Marquis Velasquez RN HEART Work Phone: [facility] 04-27-2024 15:05-0500 Diastolic blood pressure 90 mm[Hg] Marquis Velasquez RN HEART Work Phone: [facility] 04-27-2024 15:05-0500 Heart rate 67 /min Marquis Velasquez RN HEART Work Phone: [facility] 04-27-2024 15:05-0500 Respiratory rate 14 /min Marquis Velasquez RN HEART Work Phone: [facility] 04-27-2024 15:05-0500 SaO2% (BldA) [Mass fraction] 98 % Marquis Velasquez RN HEART Work Phone: [facility] 04-27-2024 15:05-0500 Systolic blood pressure 138 mm[Hg] Marquis Evlasquez RN HEART Work Phone: [facility] 02-24-2024 15:32-0400 Body height 167.6 cm Abisai Boateng DPM Work Phone: [facility] 02-24-2024 15:32-0400 Body mass index (BMI) [Ratio] 39.22 kg/m2 Abisai Boateng DPM Work Phone: [facility] 02-24-2024 15:32-0400 Body weight 110.22 kg Abisai Boateng DPM Work Phone: [facility] 01-22-2024 15:57-0400 Body height 167.6 cm Marquis Velasquez RN HEART Work Phone: [facility] 01-22-2024 15:57-0400 Body mass index (BMI) [Ratio] 39.22 kg/m2 Marquis Velasquez RN HEART Work Phone: [facility] 01-22-2024 15:57-0400 Body temperature 98.29 [degF] Marquis Velasquez RN HEART Work Phone: [facility] 01-22-2024 15:57-0400 Body weight 110.22 kg Marquis Vazquezpatrick RN HEART Work Phone: [facility] 01-22-2024 15:57-0400 Diastolic blood pressure 78 mm[Hg] Marquis Velasquez RN HEART Work Phone: [facility] 01-22-2024 15:57-0400 Heart rate 61 /min Marquis Velasquez RN HEART Work Phone: [facility] Comment on above: 98% O2 01-22-2024 15:57-0400 Systolic blood pressure 112 mm[Hg] Maqruis Knoxzpatrick RN HEART Work Phone: [facility] 09-10-2022 13:15-0400 Diastolic blood pressure 64 mm[Hg] MD Shaikh Baker Work Phone: [facility] 09-10-2022 13:15-0400 Heart rate 54 /min MD Shaikh Baker Work Phone: [facility] 09-10-2022 13:15-0400 Respiratory rate 16 /min MD Shaikh Baker Work Phone: [facility] 09-10-2022 13:15-0400 SaO2% (BldA) [Mass fraction] 97 % MD Shaikh Baker Work Phone: [facility] 09-10-2022 13:15-0400 Systolic blood pressure 100 mm[Hg] MD Shaikh Baker Work Phone: [facility] 09-10-2022 12:25-0400 Body temperature 97.5 [degF] MD Shaikh Baker Work Phone: [facility] 09-10-2022 11:55-0400 Inhaled oxygen flow rate 8 L/min MD Shaikh Baker Work Phone: [facility] 09-10-2022 10:54-0400 Body height 165.1 cm MD Shaikh Baker Work Phone: [facility] 09-10-2022 10:54-0400 Body mass index (BMI) [Ratio] 38.6 kg/m2 MD Shaikh Baker Work Phone: [facility] 09-10-2022 10:54-0400 Body weight 105.4 kg MD Shaikh Baker Work Phone: [facility] 12-22-2021 10:00-0400 Diastolic blood pressure 87 mm[Hg] MD Sav Andrews Work Phone: [facility] 12-22-2021 10:00-0400 Heart rate 54 /min MD Sav Andrews Work Phone: [facility] 12-22-2021 10:00-0400 Respiratory rate 18 /min MD Sav Andrews Work Phone: [facility] 12-22-2021 10:00-0400 SaO2% (BldA) [Mass fraction] 100 % MD Sav Andrews Work Phone: [facility] 12-22-2021 10:00-0400 Systolic blood pressure 139 mm[Hg] MD Sav Andrews Work Phone: [facility] 12-22-2021 07:37-0400 Body height 170.18 cm MD Sav Andrews Work Phone: [facility] 12-22-2021 07:37-0400 Body temperature 97.9 [degF] MD Sav Andrews Work Phone: [facility] 12-22-2021 07:37-0400 Body weight 81.64 kg MD Sav Andrews Work Phone: [facility] Encounters Encounter Date Encounter Type Care Provider Facility Start: 08-24-2024 End: 08-24-2024 Office outpatient visit 15 minutes Abisai Boateng DPM Work Phone: [facility] Comment on above: Onychodystrophy (Lizbeth hilda Dx); Onychomycosis; Type 2 diabetes mellitus with diabetic polyneuropathy, with long-term current use of insulin (CMS/HCC) Start: 08-24-2024 End: 08-24-2024 ambulatory ABISAI BOATENG Not Available Start: 08-24-2024 End: 08-24-2024 Bamboo flowsheet Abisai Boateng DPM Work Phone: [facility] Start: 08-24-2024 End: 08-24-2024 Bamboo flowsheet Abisai Boateng DPM Work Phone: [facility] Start: 08-19-2024 End: 08-19-2024 Orders Only Luci Rios RN HEART [facility] Phone[facility] Comment on above: Elevated serum creat inine (Primary Dx) Start: 08-18-2024 End: 08-18-2024 ambulatory LUCI AICLENZ Not Available Start: 07-29-2024 End: 07-29-2024 Office outpatient visit 25 minutes Luci Blanca RN HEART [facility] Phone[facility] Comment on above: Primary hypertension (CMS/HCC) (Primary Dx); Type 2 diabetes mellitus without complications (CMS/HCC); director long term care (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 (CMS/HCC); Morbid (severe) obesity due to excess calories (CMS/HCC); Gastro-esophageal reflux disease without esophagitis; Body mass index (BMI) 38.0-38.9, adult; Idiopathic aseptic necrosis of right foot ([facility]/HCC); Type 2 diabetes mellitus with diabetic polyneuropathy, with long-term current use of insulin ([facility] Severe persistent asthma without complication ([facility]); Mixed hyperlipidemia ([facility]/HCC) Start: 07-29-2024 End: 07-29-2024 ambulatory LUCI AICHHOLZ Not Available Start: 07-29-2024 End: 07-29-2024 Bamboo flowsheet Luci Aichholz RN HEART Work Phone: [facility] Start: 07-29-2024 End: 07-29-2024 Bamboo flowsheet Luci Aichholz RN HEART Work Phone: [facility] Start: 07-18-2024 End: 07-18-2024 Clinisync Result Encounter Marquis Asenciok RN HEART Work Phone: [facility] External Department Unsolicited Start: 07-18-2024 End: 07-18-2024 Clinisync Result Encounter Marquis Asenciok RN HEART Work Phone: [facility] Unsolicited Start: 06-13-2024 End: 06-16-2024 Refill Marquis Asenciok RN HEART Work Phone: [facility] Comment on above: Severe persistent as thma without complication ([facility]/HCC) Start: 05-06-2024 End: 05-06-2024 Refill Cassie Stroud MA [facility] Comment on above: Type 2 diabetes addy itus with diabetic polyneuropathy, with long-term current use of insulin ([facility]) (Primary Dx) Start: 04-27-2024 End: 04-27-2024 Office outpatient visit 15 minutes Marquis Velasquez RN HEART Work Phone: [facility] Comment on above: Type 2 diabetes addy itus with diabetic polyneuropathy, with long-term current use of insulin ([facility]) (Primary Dx); Resistant hypertension ([facility]); Gastroesophageal reflux disease without esophagitis Start: 04-27-2024 End: 04-27-2024 ambulatory MARQUIS VELASQUEZ Not Available Start: 04-27-2024 End: 04-27-2024 Bamboo flowsheet Marquis Vazquezpatrick RN HEART Work Phone: [facility] Start: 04-27-2024 End: 04-27-2024 Bamboo flowsheet Marquis Knoxzpatrick RN HEART Work Phone: [facility] Start: 03-18-2024 End: 03-19-2024 Refill Marquis Vazquezpatrick RN HEART Work Phone: [facility] Comment on above: Type 2 diabetes addy itus without complication, with long-term current use of insulin ([facility]) Start: 02-24-2024 End: 02-24-2024 Office outpatient new 30 minutes Abisai Boateng DPM Work Phone: [facility] Comment on above: Onychodystrophy (Lizbeth hilda Dx); Type 2 diabetes mellitus with diabetic polyneuropathy, with long-term current use of insulin ([facility]); Onychomycosis Start: 02-24-2024 End: 02-24-2024 ambulatory ABISAI BOATENG Not Available Start: 02-24-2024 End: 02-24-2024 Bamboo flowsheet Abisai Boateng DPM Work Phone: [facility] Start: 02-24-2024 End: 02-24-2024 Bamboo flowsheet Abisai Boateng DPM Work Phone: [facility] Start: 01-25-2024 End: 01-25-2024 Clinisync Result Encounter Shaikh Samuel GUPTA Work Phone: [facility] External Department Unsolicited Start: 01-25-2024 End: 01-25-2024 Clinisync Result Encounter Shaikh Samuel GUPTA Work Phone: [facility] External Department Unsolicited Start: 01-22-2024 End: 01-22-2024 Office outpatient visit 25 minutes Marquis Asenciok RN HEART Work Phone: [facility] Comment on above: Type 2 diabetes addy itus with diabetic polyneuropathy, with long-term current use of insulin ([facility]) (Primary Dx); Severe persistent asthma without complication ([facility]); Resistant hypertension ([facility]); Gastroesophageal reflux disease without esophagitis; Mixed hyperlipidemia ([facility]); Type 2 diabetes mellitus without complication, with long-term current use of insulin ([facility]); Primary hypertension ([facility]); Hyperlipidemia, unspecified hyperlipidemia type ([facility]) Start: 01-22-2024 End: 01-22-2024 ambulatory MARQUIS MILLERTRICK Not Available Start: 01-22-2024 End: 01-22-2024 Bamboo flowsheet Marquis Velasquez RN HEART Work Phone: [facility] Start: 01-22-2024 End: 01-22-2024 Bamboo flowsheet Marquis Velasquez RN HEART Work Phone: [facility] Start: 10-24-2023 End: 10-24-2023 ambulatory SHAIKH SAMUEL Not Available Start: 09-16-2023 End: 09-16-2023 ambulatory SHAIKH SAMUEL Not Available Start: 09-10-2022 End: 09-10-2022 ambulatory Silver Briceño Facility:[facility] Start: 09-10-2022 End: 09-10-2022 Admission to same day surgery center MD Shaikh Baker Work Phone: [facility] [place] Start: 09-10-2022 End: 09-10-2022 ambulatory MD Shaikh Baker Work Phone: [facility] Work Phone: Start: 08-30-2022 End: 08-30-2022 ambulatory Silver Briceño Facility:[facility] Start: 08-30-2022 End: 08-30-2022 ambulatory MD Shaikh Baker Work Phone: [facility] Work Phone: Start: 08-30-2022 End: 08-30-2022 Patient encounter procedure MD Shaikh Baker Work Phone: [facility] Work Phone: Start: 07-07-2022 End: 07-08-2022 ambulatory SHAIKH Adan BAKER Facility:[facility] Start: 03-13-2022 End: 03-14-2022 ambulatory SHAIKH Adan BAKER Facility:[facility] Start: 12-22-2021 End: 12-22-2021 ambulatory Sav Andrews Facility:[facility] Start: 12-22-2021 End: 12-22-2021 Admission to same day surgery center MD Sav Andrews Work Phone: [facility] Start: 12-20-2021 End: 12-20-2021 ambulatory Sav Andrews Facility:[facility] Start: 12-20-2021 End: 12-20-2021 Patient encounter procedure MD Sav Andrews Work Phone: [facility] Start: 11-14-2021 End: 11-15-2021 ambulatory REY PEREZ Facility:[facility] Start: 10-25-2021 End: 10-26-2021 ambulatory REY Huber [facility] Facility:[facility] Start: 09-11-2021 End: 09-12-2021 ambulatory SHAIKH Adan BAKER Facility:[facility] Start: 09-05-2021 End: 09-06-2021 ambulatory LIZETH MARTIN Facility:[facility] Start: 08-03-2021 End: 08-03-[address] ASA AL Facility:[facility] Procedures Date Procedure Procedure Detail Performing Clinician Start: 07-30-2024 Colonoscopy Luci flores RN HEART Work Phone: Start: 07-18-2024 ALL CBC WITH AUTO DIFF Marquis Velasquez RN HEART Work Phone: Start: 01-25-2024 ALL LIPID PROFILE (FASTING) Shaikh Samuel GUPTA Work Phone: Start: 01-25-2024 [facility] CMP (CMP) (FOR R EMOTE [facility] USE) Shaikh Samuel GUPTA Work Phone: Start: 09-10-2022 Hemorrhoidectomy MD Beltran Baker Work Phone: Start: 01-26-2022 Colonoscopy Marquis hurley RN HEART Work Phone: Start: 12-22-2021 Screening colonoscopy Ev Ang Darryl Work Phone: SARS Antigen ([facility]) [employer] Work Phone: Plan of Treatment Date Care Activity Detail Author Start: 07-30-2034 Screening for malign ant neoplasm of colon [facility] Start: 01-27-2032 Screening for malign ant neoplasm of colon [facility] Start: 08-29-2025 Glaucoma screening Diabetes: R etinopathy Screening [facility] Start: 07-18-2025 Urine screening for protein Diabetes: Urine Protein Screening [facility] Start: 02-23-2025 End: 02-23-2025 Patient encounter procedure 02/23/2025 3:15 PM EDT Procedure Visit [facility] [address] [place] [phone] Abisai Boateng, DPM [address] [place], [place] [id number] [facility] Start: 10-15-2024 Hemoglobin A1c measurement Diabetes: Hemoglobin A1C [facility] Start: 10-08-2024 End: 10-08-2024 Patient encounter procedure 10/08/2024 3:40 PM EDT Office Visit [facility] [address] [place] [phone] Luci Rios, MARIA FERNANDA [address] [place] [phone] [facility] Start: 08-29-2024 Glaucoma screening Diabetes: R etinopathy Screening [facility] Start: 08-26-2024 End: 08-19-2025 Basic metabolic 1998 panel - Serum or Plasma Basic metabolic panel Lab Routine Elevated serum creatinine Expected: 08/26/2024 (Approximate), Expires: 08/19/2025 [facility] Work Phone: Comment on above: Expected: 08/26/2024 (Approximate), Expires: 08/19/2025 Start: 08-24-2024 End: 08-24-2024 Patient encounter procedure [facility] Comment on above: Arrived Start: 08-18-2024 End: 08-18-2024 Patient encounter procedure 08/18/2024 3:00 PM EDT Office Visit [facility] [address] [place] [phone] Luci Rios NP [address] [place] [phone] [facility] Start: 08-07-2024 Urine screening for protein Diabetes: Urine Protein Screening [facility] Start: 07-29-2024 End: 07-29-2024 Patient encounter procedure [facility] Comment on above: Type 2 diabetes addy itus with diabetic polyneuropathy, with long-term current use of insulin ([facility]/HCC) (Primary Dx); Type 2 diabetes mellitus without complications ([facility]/HCC); director long term care (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 (CMS/HCC); Morbid (severe) obesity due to excess calories (CMS/HCC); Gastro-esophageal reflux disease without esophagitis; Body mass index (BMI) 38.0-38.9, adult; 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); Severe persistent asthma without complication (CMS/HCC); Primary hypertension (CMS/HCC); Mixed hyperlipidemia (CMS/HCC) Start: 07-28-2024 End: 07-28-2024 Patient encounter procedure 07/28/2024 4:00 PM EST Office Visit [facility] [address] [place] [phone] Marquis Velasquez, MARIA FERNANDA [address] [facility] [place] [place] [address] [facility] Start: 07-26-2024 End: 04-27-2025 CBC W Auto Differential panel - Blood CBC and differential Lab Routine Type 2 diabetes mellitus with diabetic polyneuropathy, with long-term current use of insulin (CMS/HCC) Resistant hypertension (CMS/HCC) Expected: 07/26/2024 (Approximate), Expires: 04/27/2025 [facility] Comment on above: Expected: 07/26/2024 (Approximate), Expires: 04/27/2025 Start: 07-26-2024 End: 04-27-2025 Comprehensive metabolic 2000 panel - Serum or Plasma Comprehensive metabolic panel Lab Routine Type 2 diabetes mellitus with diabetic polyneuropathy, with long-term current use of insulin (CMS/HCC) Resistant hypertension (CMS/HCC) Expected: 07/26/2024 (Approximate), Expires: 04/27/2025 [facility] Comment on above: Expected: 07/26/2024 (Approximate), Expires: 04/27/2025 Start: 07-26-2024 End: 04-27-2025 Hemoglobin A1c/Hemoglobin.total in Blood Hemoglobin A1c Lab Routine Type 2 diabetes mellitus with diabetic polyneuropathy, with long-term current use of insulin (CMS/HCC) Resistant hypertension (CMS/HCC) Expected: 07/26/2024 (Approximate), Expires: 04/27/2025 [facility] Comment on above: Expected: 07/26/2024 (Approximate), Expires: 04/27/2025 Start: 07-26-2024 End: 04-27-2025 Microalbumin/Creatinine panel in random Urine Microalbumin / creatinine urine ratio Lab Routine Type 2 diabetes mellitus with diabetic polyneuropathy, with long-term current use of insulin (CMS/HCC) Resistant hypertension (CMS/HCC) Expected: 07/26/2024 (Approximate), Expires: 04/27/2025 [facility] Work Phone: Comment on above: Expected: 07/26/2024 (Approximate), Expires: 04/27/2025 Start: 04-27-2024 End: 04-27-2024 Patient encounter procedure [facility] Comment on above: Arrived Start: 04-22-2024 End: 04-22-2024 Patient encounter procedure 04/22/2024 3:30 PM EST Office Visit [facility] [address] [place] [address] Marquis Velasquez, RN HEART [address] [place] [address] [facility] Start: 02-24-2024 End: 02-24-2024 Patient encounter procedure 02/24/2024 3:30 PM EDT Office Visit [facility] [address] [place] [phone] Abisai Boateng, DPM [address], [place] [id number] Type 2 diabetes mellitus with diabetic polyneuropathy, with long-term current use of insulin ([facility]) [facility] Comment on above: Type 2 diabetes addy itus with diabetic polyneuropathy, with long-term current use of insulin (CMS/HCC) Start: 01-26-2024 Influenza vaccination Influenza Vacc ine (#1) [facility] Start: 01-22-2024 End: 01-22-2024 Patient encounter procedure 01/22/2024 4:00 PM EDT Office Visit [facility] [address] [place] [address] Marquis Velasquez NP [address] [place] [phone] Type 2 diabetes mellitus with diabetic polyneuropathy, with long-term current use of insulin (CMS/HCC) (Primary Dx); Severe persistent asthma without complication (CMS/HCC); Resistant hypertension (CMS/HCC); Gastroesophageal reflux disease without esophagitis; Mixed hyperlipidemia (CMS/HCC) [facility] Comment on above: Type 2 diabetes addy itus with diabetic polyneuropathy, with long-term current use of insulin ([facility]) (Primary Dx); Severe persistent asthma without complication ([facility]); Resistant hypertension ([facility]); Gastroesophageal reflux disease without esophagitis; Mixed hyperlipidemia ([facility]) Start: 11-08-2023 Hemoglobin A1c measurement Diabetes: Hemoglobin A1C [facility] Start: 09-10-2022 End: 09-10-2022 [facility] Start: 12-22-2021 [facility] Work Phone: Start: 1965 Screening for malign ant neoplasm of colon [facility] Patient Education Hemorrhoids [facility] Work Phone: Immunizations Immunization Date Immunization Notes Care Provider Jose elder 05-28-2024 influenza, seasonal, injectable, preservative free Luci Aichholz RN HEART Work Phone: [facility] 05-28-2024 measles, mumps and rubella virus vaccine Luci Aichholz RN HEART Work Phone: [facility] 05-28-2024 Pneumococcal conjuga te vaccine, 21 valent (PCV21), polysaccharide [id number] conjugate, preservative free Luci Aichholz RN HEART Work Phone: [facility] 05-28-2024 influenza virus vaccine, unspecified formulation Luci Aichholz RN HEART Work Phone: [facility] 03-23-2022 tetanus toxoid, redu bj diphtheria toxoid, and acellular pertussis vaccine, adsorbed Marquis Velasquez RN HEART Work Phone: [facility] 03-23-2022 zoster vaccine recombinant Marquis Velasquez RN HEART Work Phone: [facility] 03-13-2022 influenza, seasonal, injectable Luci Aichholz RN HEART Work Phone: [facility] 05-10-2021 Influenza, injectabl e, Madin Carrie Canine Kidney, preservative free, quadrivalent Marquis Velasquez RN HEART Work Phone: [facility] 05-10-2021 influenza virus vaccine, unspecified formulation Marquis Velasquez RN HEART Work Phone: [facility] 10-10-2020 COVID-19 Soniya Benavides (Pfizer) MD Sav Andrews Work Phone: [facility] 09-19-2020 COVID-19 mRNASoniya (Pfizer) MD Sav Andrews Work Phone: [facility] 02-17-2020 Influenza, injectabl e, Madin [place] Canine Kidney, preservative free, quadrivalent Marquis Velasquez RN HEART Work Phone: [facility] 03-09-2019 influenza, seasonal, injectable Marquis Velasquez RN HEART Work Phone: [facility] 03-12-2017 influenza, injectabl e, quadrivalent, preservative free Marquis Velasquez RN HEART Work Phone: [facility] Payers Date Payer Category Payer [facility] [id number] 2022 Unknown [facility] [id number] 2022-Present [phone] [address] [place] [address] [id number] 2021 Self-pay [id number] 1965 Unknown [id number] 2.16.840.1.653067.3.579. 2.593 1966 Unknown [id number] 2.16.840.1.743164.3.579. 2.593 1966 Unknown [id number] 2.16.840.1.443194.3.579. 2. 1966 Unknown [id number] 2.16.840.1.446406.3.579. 2.59 1966 Unknown [id number] 2.16.840.1.238632.3.579. 2. 1966 Unknown [id number] 2.16.840.1.806600.3.579. 2.3 1966 Unknown [id number] 2.16.840.1.419908.3.579. 2.59 1966 Unknown [id number] 2.16.840.1.725915.3.579. 2.1258 1966 Unknown [id number] 2.16.840.1.662955.3.579. 2.1258 1966 Unknown [id number] 2.16.840.1.063753.3.579. 2.1258 1966 Unknown [id number] 2.16.840.1.460426.3.579. 2.1258 1966 Unknown [id number] 2.16.840.1.424962.3.579. 2.1258 1966 Unknown [id number] 2.16.840.1.489008.3.579. 2.1258 1966 Unknown [id number] 2.16.840.1.294022.3.579. 2.1258 1966 Unknown [id number] 2.16.840.1.962140.3.579. 2.1259 1959 Unknown [id number] Unknown [id number] 2.16.840.1.014666.3.579. 2.531 Unknown [id number] 2.16.840.1.707334.3.579. 2.531 Unknown [id number] 2.16.840.1.444056.3.579. 2.531 Unknown [id number] 2.16840.1.487335.3.579. 2.531 Social History Date Type Detail Facility Start: 12-22-2021 End: 08-07-2023 Tobacco smoking status NHIS Ex-smoker (finding) [facility] Start: 1965 Sex Assigned At Male F [facility] History of tobacco use Current smoker [facility] History of tobacco use Cigarette Smoker [facility] History of tobacco use Passive smoker [facility] Start: 08-07-2023 Tobacco use and exposure Smoke less tobacco non-user [facility] Start: 02-24-2024 End: 08-24-2024 Alcoholic beverage intake Lifetime non-drinker (finding) [facility] [...] to any clubs or organizations such as restorationist groups, unions, fraternal or athletic groups, or [...] Origin al Text Equipment Identifier Dates Daily [id number] Start: 10-24-2023 End: 10-23-2024 Daily [id number] Start: 04-27-2024 End: 04-27-2025 Goals Date Patient Goal Desired Activity /State Clinical Notes 09-05-2021 to 08-24-2024 Abisai Boateng, VAL - 08/24/2024 3:30 PM EDTHUMBREKHA ZEPEDA - 07/29/2024 3:20 PM Shahid Rios, RN HEART - 07/29/2024 3:20 PM Shahid Rios, RN HEART - 07/29/2024 7:44 AM ESTPatient Instructions Note Date & Type Note Facility 08-24-2024 History of Present illness Narrative Images from the original note were not included. Subjective Patient ID: Dante Dewey is a 59 y.o. male who presents for DM Foot Care (PCP: Luci Phillips LV 08/18/24, A1C: 8.3, BS: 142). HPI Established patient returns to clinic for diabetic foot evaluation. Review of Systems Constitutional: Negative for activity [...] injury) (CMS/HCC) Arthritis of ankle, right Asthma Avascular necrosis of talus, right (CMS/HCC) Dietrich cyst, right Enlarged and hypertrophic nails Eosinophilia Equinus contracture of right ankle Gastroesophageal reflux disease Hemorrhoids Hyperlipemia, mixed (CMS/HCC) Hypertension (CMS/HCC) Onychomycosis of toenail Osteoarthritis of both knees, unspecified osteoarthritis type Osteochondral defect of talus Pain, foot, right, chronic Peroneal tendinitis, right Right ankle pain Right leg swelling Severe persistent asthma Skin tags, multiple acquired Sprain of right ankle, sequela T2DM (type 2 diabetes mellitus) ([facility]) Medications Current Outpatient Medications: albuterol HFA 90 [...] Disp: 180 tablet, Rfl: 1 Continuous Glucose Water Valve Mechanic (FreeStyle Era 2 [place]) device, 1 each in the morning and 1 each at noon and 1 each in the evening and 1 each before bedtime., Disp: 1 each, Rfl: 0 Continuous Glucose Sensor (FreeStyle Era 3 Plus Sensor) [facility], USE 1 SENSOR EVERY 15 DAYS TO MONITOR BLOOD SUGAR., Disp: , Rfl: dapagliflozin (Farxiga) 5 MG, Take 1 tablet (5 mg) by mouth Daily, Disp: 90 tablet, Rfl: 0 Pqttegitvws-Vyxkytnpl-Nkxkaf (Trelegy Ellipta) 200-62.5-25 MCG/ACT aerosol powder , Inhale 1 puff Daily INHALE 1 PUFF ONCE DAILY, rinse mouth after use, Disp: 1 each, Rfl: 5 glipiZIDE (Glucotrol) 5 MG tablet, Take 1 tablet (5 mg) by mouth in the morning and 1 tablet (5 mg) in the evening. Take before meals., Disp: 180 tablet, Rfl: 1 insulin glargine-yfgn (Lata yfgn,) 100 UNIT/ML injection, Inject 20 Units under the skin at bedtime, Disp: , Rfl: insulin pen needle (B-D ULTRAFINE III SHORT [...] before meals., Disp: 90 capsule, Rfl: 1 spironolactone (Aldactone) 50 MG tablet, Take 2 tablets (100 mg) by mouth Daily, Disp: 180 tablet, Rfl: 0 Allergies Patient has no known allergies. Past [...] normal. Assessment/Plan ICD-10-CM 1. Onychodystrophy L60.3 2. Onychomycosis B35.1 3. Type 2 diabetes mellitus with diabetic polyneuropathy, with long-term current use of insulin ([facility]) E11.42 Z79.4 Patient was examined and evaluated. Diabetic foot evaluation performed. Patient is low risk for diabetic foot complications. He does have some mild neuropathy but currently has no preulcerative lesions. 10 toenails were debrided in length and thickness today utilizing a nail nipper and electric bur gear and spline grinder without incident. I have discussed the importance of daily foot examinations and tight blood sugar control. We will follow up in 6 months for low risk diabetic foot evaluation. Patient was fitted for and dispensed power step orthotics today. This note was created with the assistance of a speech recognition program. While intending to generate a timely document that accurately reflects the content of the visit, no guarantee can be provided that every grammatical or spelling mistake has been or will be identified or corrected. Thank you for your understanding. Abisai Boateng DPM documented in this encounter [facility] 07-29-2024 History of Present illness Narrative Pt states that about 2 weeks ago he had pain in his right knee and swelling in the right leg. Pt states it happened just the one time. Pt is having pin and needles in the left hand. 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 Pt needs a refill on his trelegy and albuterol inhaler wants to know if he can be on mounjaro Pt does not take januvia 100mg insurance will not pay for it- $600 a month for bottle CGM readings: 7 day, avg 235, >250 46%, 181-250 36%, 70-181 18% 14 day avg 210, 8.3%, >250 30%, 181-250 32%, 70-12869% 30 day avg 190, 7.9%, >250 18%, [...] 2 times daily with meals Continuous Glucose Water Valve Mechanic (E.M.A.R.C.Style Era 2 [place]wood) device 1 each, Does not apply, 4 times daily Continuous Glucose Sensor (FreeStyle Era 3 Plus Sensor) [facility] USE 1 SENSOR EVERY 15 DAYS TO MONITOR BLOOD SUGAR. furosemide (LASIX) 40 mg, Daily glipiZIDE (GLUCOTROL) 5 mg, Oral, 2 times daily before meals insulin glargine-yfgn (SEMGLEE (YFGN)) 20 Units, Subcutaneous, Nightly insulin pen needle (B-D ULTRAFINE III SHORT PEN) 31G X 8 mm [facility] Daily losartan-hydroCHLOROthiazide (Hyzaar) 100-25 MG tablet 1 [...] injury) (CMS/HCC) Arthritis of ankle, right Asthma (CMS/[facility]) Avascular necrosis of talus, right (CMS/[facility]) Dietrich cyst, right Enlarged and hypertrophic nails [...] ankle, sequela T2DM (type 2 diabetes mellitus) (CMS/[facility]) Past Surgical History: Procedure Laterality Date ANKLE [...] polyneuropathy, with long-term current use of insulin ([facility]) - Primary No current treatment Recommend proper fitting toes, freq foot inspections, good glycemic control Severe persistent asthma without complication ([facility]) Current meds: trelegy, albuterol #2 samples of trelegy: 100's, lot MV9W, exp 06/21 In the past has used trelegy 200, symbicort 160, and flovent Finds benefit with trelegy 100's Has seen pulmonology in the past Relevant Medications Uiqlciojwwd-Mkssbunxb-Cawemo (Trelegy Ellipta) 200-62.5-25 MCG/ACT aerosol powder albuterol HFA 90 mcg/act inhaler Gastro-esophageal reflux disease without esophagitis Recommendations: freq small meals, nothing to eat or drink at least 2 hours prior to bed, limit caffeine, alcohol, as well as spicy foods Meds to limit or avoid if possible: NSAIDS Elevate HOB if possible Med: omeprazole Hyperlipidemia ([facility]/HCC) On statin therapy Check labs yearly, and prn dose changes Type 2 diabetes mellitus without complications ([facility]) Check blood sugars daily, notify if <70 [...] 07/18/24 Relevant Medications dapagliflozin (Farxiga) 5 MG director long term care (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 ([facility]) Continue with insulin Morbid (severe) obesity due to excess calories ([facility]) Discussed with patient their BMI (actual, verses recommended). We have also discussed lifestyle modifications: attempts to perform physical activity as chronic conditions allow, also to monitor dietary intake: increasing protein/fruits/veggies and lowering carb intake (unless contraindicated). Limit sodas, juices, and sugary drinks. Body mass index (BMI) 38.0-38.9, adult Idiopathic aseptic necrosis of right foot ([facility]/HCC) Has seen podiatry in the past Primary hypertension ([facility]) Please check blood pressure daily and record DASH diet Limit caffeine Take medication as directed Contact office if chest pain, pressure, dizziness, shortness of breath, swelling legs Recommend slow position changes Current meds: amlodipine, carvedilol, losartan/hydrochlorothiazide, aldactone Will increase dose on aldactone to 100mg daily Recheck blood pressure in 2 weeks-currently no symptoms Associated Problem(s): halfway (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 ([facility]) Continue with insulin Associated Problem(s): Hyperlipidemia ([facility]) On statin therapy Check labs yearly, and prn dose changes Associated Problem(s): Type 2 diabetes mellitus without complications (CMS/HCC) Check blood sugars daily, notify if <70 [...] Associated Problem(s): Severe persistent asthma without complication ([facility]) Current meds: trelegy, albuterol #2 samples of trelegy: 100's, lot MV9W, exp 06/21 In the past has used trelegy 200, symbicort 160, and flovent Finds benefit with trelegy 100's Has seen pulmonology in the past Associated Problem(s): Type 2 diabetes mellitus with diabetic polyneuropathy, with long-term current use of insulin (CMS/HCC) No current treatment Recommend proper fitting toes, freq foot inspections, good glycemic control documented in this encounter [facility] 07-29-2024 Instructions Luci Rios NP - 07/29/2024 3:20 PM EST Aldactone increase to 2 pills daily (total 100mg) Diabetes: I want to check with insurance about either Farxiga or Jardiance -it will be 1 pill daily, pulls sugar out through the urine. I will also check into the Mounjaro/Derrickempic/Trulicity documented in this encounter [facility] 04-27-2024 History of Present illness Narrative Images [...] Continue current regimen. documented in this encounter [facility] 04-27-2024 Instructions Marquis Velasquez NP - 04/27/2024 3:30 PM EST Keep up the good work! Call if you need anything!!! documented in this encounter [facility] 02-24-2024 History of Present illness Narrative Images from the original note were not included. Subjective Patient ID: Dante Dewey is a 59 y.o. male who presents for DM Foot Care (Dante Dewey 59yo male, New [facility] diabetic nail care [...] History: Diagnosis Date AYESHA (acute kidney injury) ([facility]) Arthritis of ankle, right Asthma ([facility]) Avascular necrosis of talus, right ([facility]) Dietrich cyst, right Enlarged and hypertrophic nails Eosinophilia Equinus contracture of right ankle Gastroesophageal reflux disease Hemorrhoids Hyperlipemia, mixed ([facility]) Hypertension ([facility]) Onychomycosis of toenail Osteoarthritis of both knees, unspecified osteoarthritis type Osteochondral defect of talus Pain, foot, right, chronic Peroneal tendinitis, right Right ankle pain Right leg swelling Severe persistent asthma ([facility]) Skin tags, multiple acquired Sprain of right ankle, sequela T2DM (type 2 diabetes mellitus) ([facility]) Medications Current Outpatient Medications: albuterol HFA 90 [...] Disp: 180 tablet, Rfl: 1 Continuous Glucose Water Valve Mechanic (E.M.A.R.C.Style Era 2 [place]) device, 1 each in the morning and 1 each at noon and 1 each in the evening and 1 each before bedtime., Disp: 1 each, Rfl: 0 Bktugtgccdf-Nnfrwlinj-Koqsty (Trelegy Ellipta) 200-62.5-25 MCG/ACT aerosol powder , [...] polyneuropathy, with long-term current use of insulin ([facility]) E11.42 Ambulatory referral to Podiatry Z79.4 3. Onychomycosis B35.1 Patient was examined and evaluated. Patient is low risk for diabetic foot complications. He does have some mild loss of vibratory sensation bilaterally to suggest early neuropathy. No preulcerative lesions. 10 toenails were debrided in length and thickness today utilizing a nail nipper and electric bur gear and spline grinder without incident. I have discussed the [...] Abisai Boateng DPM documented in this encounter [facility] 01-22-2024 History of Present illness Narrative Associated Problem(s): Severe persistent asthma without complication ([facility]) Trelegy And Albuterol PRN. Feels symptoms are [...] Continue current regimen. Associated Problem(s): Resistant hypertension ([facility]/HCC) Currently taking Amlodipine 10mg Carvedilol 25mg Losartan-hydrochlorothiazide 100-25mg Spironlactone 50mg Checks BP at home; Averages are Denies orthostatic changes, dizziness, cough, shortness of breath, swelling in extremities. Continue current regimen. Images from the original note were not included. Subjective Patient ID: Dante Dewey is a 58 y.o. male who presents for Follow-up (3MO, ) and Poison Suzi ([facility] WAS GIVEN STEROID AND CREAM. PT [...] polyneuropathy, with long-term current use of insulin ([facility]) - Primary Glipizide 5mg Metformin 850mg Januvia [...] glipiZIDE (Glucotrol) 5 MG tablet insulin glargine-yfgn (Mattglkandi, yfgn,) 100 UNIT/ML injection Severe persistent asthma without complication (CMS/HCC) Trelegy And Albuterol PRN. Feels symptoms are well managed. Denies any exacerbations, cough, shortness of breath. Relevant Medications albuterol HFA 90 mcg/act inhaler Mhbrqsydpew-Kjnhjaxhp-Sivacp (Trelegy Ellipta) 200-62.5-25 MCG/ACT aerosol powder Gastroesophageal reflux disease without esophagitis Relevant Medications omeprazole (PriLOSEC) [address] capsule Hyperlipidemia (CMS/HCC) Atorvastatin 40mg Denies myalgias Continue current regimen. Relevant Medications metFORMIN (Glucophage) 850 MG tablet aspirin 81 MG chewable tablet atorvastatin (Lipitor) 40 MG tablet Other Visit Diagnoses Type 2 diabetes mellitus without complication, with long-term current use of insulin (CMS/[facility]) Relevant Medications Continuous Glucose Water Valve Mechanic (ReachTax Era 2 [place]) device Primary hypertension (CMS/HCC) Relevant Medications losartan-hydroCHLOROthiazide (Hyzaar) 100-25 MG tablet amLODIPine (Norvasc) 10 MG tablet documented in this encounter [facility] 01-22-2024 Instructions Marquis Velasquez NP - 01/22/2024 [...] and simple sugars. documented in this encounter [facility] 12-22-2021 Procedure note [facility] 10-26-2021 Note PROCEDURE: XR ANKLE RT [...] authenticated by: MICHELLE IBRAHIM Date: 2021-10-26 08:54 [facility] 09-05-2021 Note PROCEDURE: XR ANKLE RT MIN 3 VIEWS COMPARISON: None. 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 No acute fracture, dislocation or mechanical failure. Stable degenerative changes. Mild enthesopathic spurring of the calcaneus SOFT TISSUES:Mild soft tissue swelling EFFUSION:None visible. OTHER: Negative. IMPRESSION: Stable talus arthroplasty Electronically authenticated by: GERA BLUM Date: 2021-09-05 15:22 [facility] Evaluation note No assessment inform ation available [facility] Work Phone: Evaluation note Diagnosis Primary hypertension ([facility]/HCC)- Primary Unspecified essential hypertension Type 2 diabetes mellitus with diabetic polyneuropathy, with long-term current use of insulin ([facility]) Other hyperlipidemia ([facility]) Gastroesophageal reflux disease without esophagitis Esophageal reflux Type 2 diabetes mellitus with diabetic polyneuropathy, with long-term current use of insulin ([facility]/HCC)- Primary Resistant hypertension ([facility]/HCC) Hyperlipidemia, unspecified hyperlipidemia type ([facility]/HCC)- Primary Resistant hypertension (CMS/HCC) Type 2 diabetes mellitus with diabetic polyneuropathy, with long-term current use of insulin ([facility] [facility]) Gastroesophageal reflux disease without esophagitis Esophageal reflux Primary hypertension (CMS/HCC) Unspecified essential hypertension Type 2 diabetes mellitus with diabetic polyneuropathy, with long-term current use of insulin ([facility])- Primary Severe persistent asthma without complication (CMS/HCC) Resistant hypertension (CMS/HCC) Gastroesophageal reflux disease without esophagitis Esophageal reflux Mixed hyperlipidemia (CMS/HCC) Mixed hyperlipidemia Type 2 diabetes mellitus without complication, with long-term current use of insulin ([facility]) Primary hypertension ([facility]) Unspecified essential hypertension Hyperlipidemia, unspecified hyperlipidemia type (CMS/HCC) Type 2 diabetes mellitus without complication, with long-term current use of insulin ([facility]) documented in this encounter [facility] HealthcareEvaluation note* Diagnosis Primary hypertension ([facility])- Primary Unspecified essential hypertension Type 2 diabetes mellitus with diabetic polyneuropathy, with long-term current use of insulin ([facility]) Other hyperlipidemia ([facility]) Gastroesophageal reflux disease without esophagitis Esophageal reflux Type 2 diabetes mellitus with diabetic polyneuropathy, with long-term current use of insulin ([facility])- Primary Resistant hypertension ([facility]CC) Hyperlipidemia, unspecified hyperlipidemia type ([facility])- Primary Resistant hypertension ([facility]) Type 2 diabetes mellitus with diabetic polyneuropathy, with long-term current use of insulin ([facility]) Gastroesophageal reflux disease without esophagitis Esophageal reflux Primary hypertension ([facility]) Unspecified essential hypertension Type 2 diabetes mellitus with diabetic polyneuropathy, with long-term current use of insulin ([facility])- Primary Severe persistent asthma without complication ([facility]) Resistant hypertension ([facility]CC) Gastroesophageal reflux disease without esophagitis Esophageal reflux Mixed hyperlipidemia ([facility]) Mixed hyperlipidemia Type 2 diabetes mellitus without complication, with long-term current use of insulin ([facility]) Primary hypertension ([facility]) Unspecified essential hypertension Hyperlipidemia, unspecified hyperlipidemia type ([facility]) Type 2 diabetes mellitus with diabetic polyneuropathy, with long-term current use of insulin ([facility])- Primary Resistant hypertension ([facility]HCC) Gastroesophageal reflux disease without esophagitis Esophageal reflux documented in this encounter [facility] HealthcareEvaluation note* Diagnosis Primary hypertension ([facility])- Primary Unspecified essential hypertension Type 2 diabetes mellitus with diabetic polyneuropathy, with long-term current use of insulin ([facility]) Other hyperlipidemia ([facility]) Gastroesophageal reflux disease without esophagitis Esophageal reflux Type 2 diabetes mellitus with diabetic polyneuropathy, with long-term current use of insulin ([facility])- Primary Resistant hypertension ([facility]) Hyperlipidemia, unspecified hyperlipidemia type ([facility])- Primary Resistant hypertension ([facility]) Type 2 diabetes mellitus with diabetic polyneuropathy, with long-term current use of insulin ([facility]) Gastroesophageal reflux disease without esophagitis Esophageal reflux Primary hypertension ([facility]) Unspecified essential hypertension Type 2 diabetes mellitus with diabetic polyneuropathy, with long-term current use of insulin ([facility])- Primary Severe persistent asthma without complication (CMS/HCC) Resistant hypertension ([facility]) Gastroesophageal reflux disease without esophagitis Esophageal reflux Mixed hyperlipidemia ([facility]) Mixed hyperlipidemia Type 2 diabetes mellitus without complication, with long-term current use of insulin ([facility]) Primary hypertension ([facility]) Unspecified essential hypertension Hyperlipidemia, unspecified hyperlipidemia type ([facility]) Type 2 diabetes mellitus with diabetic polyneuropathy, with long-term current use of insulin ([facility])- Primary Resistant hypertension ([facility]) Gastroesophageal reflux disease without esophagitis Esophageal reflux Type 2 diabetes mellitus with diabetic polyneuropathy, with long-term current use of insulin ([facility])- Primary documented in this encounter [facility] HealthcareEvaluation note* Diagnosis Type 2 diabetes mellitus with diabetic polyneuropathy, with long-term current use of insulin ([facility])- Primary Severe persistent asthma without complication ([facility] Resistant hypertension ([facility]) Gastroesophageal reflux disease without esophagitis Esophageal reflux Mixed hyperlipidemia ([facility]) Mixed hyperlipidemia Type 2 diabetes mellitus without complication, with long-term current use of insulin ([facility]) Primary hypertension ([facility]) Unspecified essential hypertension Hyperlipidemia, unspecified hyperlipidemia type ([facility]CC) documented in this encounter [facility] HealthcareEvaluation note* Diagnosis Onychodystrophy- Primary Other specified disease of nail Type 2 diabetes mellitus with diabetic polyneuropathy, with long-term current use of insulin ([facility]) Onychomycosis Dermatophytosis of nail documented in this encounter [facility] HealthcareEvaluation note* Diagnosis Primary hypertension ([facility])- Primary Unspecified essential hypertension Type 2 diabetes mellitus with diabetic polyneuropathy, with long-term current use of insulin ([facility]) Other hyperlipidemia ([facility]) Gastroesophageal reflux disease without esophagitis Esophageal reflux Type 2 diabetes mellitus with diabetic polyneuropathy, with long-term current use of insulin ([facility])- Primary Resistant hypertension ([facility]) Hyperlipidemia, unspecified hyperlipidemia type ([facility])- Primary Resistant hypertension ([facility]) Type 2 diabetes mellitus with diabetic polyneuropathy, [...] without complication (CMS/HCC) documented in this encounter [facility] HealthcareEvaluation note* Diagnosis Primary hypertension [...] disease without esophagitis Esophageal reflux Primary hypertension (CMS/HCC)- Primary Unspecified essential hypertension Type 2 diabetes mellitus without complications (CMS/HCC) director long term care (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 (CMS/HCC) Morbid (severe) obesity due to excess calories (CMS/HCC) Gastro-esophageal reflux disease without esophagitis Body mass index (BMI) 38.0-38.9, adult 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 polyneuropathy, with long-term current use of insulin (CMS/HCC) Severe persistent asthma without complication (CMS/HCC) Mixed hyperlipidemia (CMS/HCC) Mixed hyperlipidemia documented in this encounter [facility] HealthcareEvaluation note* Diagnosis Primary hypertension [...] disease without esophagitis Esophageal reflux Primary hypertension (CMS/HCC)- Primary Unspecified essential hypertension Type 2 diabetes mellitus without complications (CMS/HCC) halfway (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 (CMS/HCC) Morbid (severe) obesity due to excess calories (CMS/HCC) Gastro-esophageal reflux disease without esophagitis Body mass index (BMI) 38.0-38.9, adult 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 polyneuropathy, with long-term current use of insulin (CMS/HCC) Severe persistent asthma without complication (CMS/HCC) Mixed hyperlipidemia (CMS/HCC) Mixed hyperlipidemia Primary hypertension (CMS/HCC)- Primary Unspecified essential hypertension Morbid (severe) obesity due to excess calories (CMS/HCC) Type 2 diabetes mellitus without complication, with long-term current use of insulin ([facility]) Hyperlipidemia, unspecified hyperlipidemia type (CMS/HCC) Resistant hypertension (CMS/HCC) Type 2 diabetes mellitus with diabetic polyneuropathy, with long-term current use of insulin ([facility]) Gastroesophageal reflux disease without esophagitis Esophageal reflux Edema of both lower extremities Elevated serum creatinine- Primary Other nonspecific findings on examination of blood documented in this encounter [facility] HealthcareEvaluation note* Diagnosis Primary hypertension ([facility])- Primary Unspecified essential hypertension Type 2 diabetes mellitus with diabetic polyneuropathy, with long-term current use of insulin ([facility]) Other hyperlipidemia Gastroesophageal reflux disease without esophagitis Esophageal reflux Type 2 diabetes mellitus with diabetic polyneuropathy, with long-term current use of insulin ([facility])- Primary Resistant hypertension (CMS/HCC) Hyperlipidemia, unspecified hyperlipidemia type (CMS/HCC)- Primary Resistant hypertension (CMS/HCC) Type 2 diabetes mellitus with diabetic polyneuropathy, with long-term current use of insulin ([facility]) Gastroesophageal reflux disease without esophagitis Esophageal reflux Primary hypertension (CMS/HCC) Unspecified essential hypertension Type 2 diabetes mellitus with diabetic polyneuropathy, with long-term current use of insulin ([facility])- Primary Severe persistent asthma without complication ([facility]) Resistant hypertension (CMS/HCC) Gastroesophageal reflux disease without esophagitis Esophageal reflux Mixed hyperlipidemia (CMS/HCC) Mixed hyperlipidemia Type 2 diabetes mellitus without complication, with long-term current use of insulin Primary hypertension ([facility]CC) Unspecified essential hypertension Hyperlipidemia, unspecified hyperlipidemia type ([facility]) Type 2 diabetes mellitus with diabetic polyneuropathy, with long-term current use of insulin ([facility])- Primary Resistant hypertension (CMS/HCC) Gastroesophageal reflux disease without esophagitis Esophageal reflux Primary hypertension (CMS/HCC)- Primary Unspecified essential hypertension Type 2 diabetes mellitus without complications director long term care (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 ([facility]CC) Morbid (severe) obesity due to excess calories ([facility]) Gastro-esophageal reflux disease without esophagitis Body mass index (BMI) 38.0-38.9, adult 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 polyneuropathy, with long-term current use of insulin (CMS/HCC) Severe persistent asthma without complication (CMS/HCC) Mixed hyperlipidemia (CMS/HCC) Mixed hyperlipidemia Primary hypertension (CMS/HCC)- Primary Unspecified essential hypertension Morbid (severe) obesity due to excess calories (CMS/HCC) Type 2 diabetes mellitus without complication, with long-term current use of insulin Hyperlipidemia, unspecified hyperlipidemia type (CMS/HCC) Resistant hypertension (CMS/HCC) Type 2 diabetes mellitus with diabetic polyneuropathy, with long-term current use of insulin (CMS/HCC) Gastroesophageal reflux disease without esophagitis Esophageal reflux Edema of both lower extremities Onychodystrophy- Primary Other specified disease of nail Onychomycosis Dermatophytosis of nail Type 2 diabetes mellitus with diabetic polyneuropathy, with long-term current use of insulin ([facility]) documented in this encounter [facility] HealthcareHistory and physical note Author Sav Andrews [facility] December 22, 2021 9:32am Note Date/Time December 22, 2021 9:32 am [facility] [address] [place] [address] Gastroenterology H&P Signed Patient: Dante Dietz MR #: [id number] : 1965 Acct:[id number] Age/Sex: 56 / M Adm Date: 2 Loc: Room: Type: [facility] Attending Dr: Sav Andrews MD Copies to: [...] by Sav Andrews MD> 12/22/21931 [facility] Work Phone: Reason for referral (narrative)* Consultation (Routine) - Pending Review Specialty Diagnoses / Procedures Referred By Magdy charlton Referred To Contact Podiatry Diagnoses Type 2 diabetes mellitus with diabetic polyneuropathy, with long-term current use of insulin ([facility]) Procedures MT OFFICE/OUTPATIENT NEW HIGH MDM 60 MINUTES Marquis Velasquez NP [address] [place] [phone] Rita Me[place], [place] [address] [place] [id number] Referral ID Status Reason Start Date Expiration Date Visits Requested Visits Authorized [id number] Pending Review Specialty Services Required 01/22/2024 07/20/2024 [...] Active Silver Briceño DO Attending Provider Active Medical Genetics Director Relationship Specialty Start Date End Date Antwan Perez MD [address] [place] [phone] PCP - General Family Medicine 12/30/23 Marquis Velasquez NP [address] [place] [address] Nurse Practitioner Family Medicine 12/30/23 Medical Genetics Director Relationship Specialty Start Date End Date Antwan Perez MD [address] [place] [phone] PCP - General Family Medicine 12/30/23 Shaikh Baker MD [address] [place] [address] PCP - [facility] 02/25/24 Marquis Velasquez NP [address] [place] [phone] Nurse Practitioner Family Medicine 12/30/23 Medical Genetics Director Relationship Specialty Start Date End Date Antwan Perez MD [address] [place] [phone] PCP - General Family Medicine 12/30/23 Shaikh Baker MD [address] [place] [phone] PCP - [facility] 02/25/24 Marquis Velasquez NP [address] [place] [phone] Nurse Practitioner Family Medicine 12/30/23 Medical Genetics Director Relationship Specialty Start Date End Date Antwan Perez MD [address] [place] [phone] PCP - General Family Medicine 12/30/23 Shaikh Baker MD [address] [place] [phone] PCP - [facility] [employer] 02/25/24 Marquis Velasquez NP [address] [place] [address] Nurse Practitioner Family Medicine 12/30/23 Medical Genetics Director Relationship Specialty Start Date End Date Anwtan Perez MD [address] [place] [phone] PCP - General Family Medicine 12/30/23 Marquis Velasquez, MARIA FERNANDA [address] [place] [address] Nurse Practitioner Family Medicine 12/30/23 Medical Genetics Director Relationship Specialty Start Date End Date Antwan Perez MD [address] [place] [address] PCP - General Family Medicine 12/30/23 Marquis Velasquez NP [address] [place] [address] Nurse Practitioner Family Medicine 12/30/23 Medical Genetics Director Relationship Specialty Start Date End Date Antwan Perez MD [address] [place] [address] PCP - General Family Medicine 12/30/23 Marquis Velasquez NP [address] [place] [address] Nurse Practitioner Family Medicine 12/30/23 Medical Genetics Director Relationship Specialty Start Date End Date Antwan Perez MD [address] [place] [phone] PCP - General Family Medicine 12/30/23 Marquis Velasquez NP [address] [place] [address] Nurse Practitioner Family Medicine 12/30/23 Medical Genetics Director Relationship Specialty Start Date End Date Antwan Perez MD [address] [place] [address] PCP - General Family Medicine 12/30/23 Marquis Velasquez NP [address] [place] [address] Nurse Practitioner Family Medicine 12/30/23 Medical Genetics Director Relationship Specialty Start Date End Date Antwan Perez MD [address] [place] [phone] PCP - General Family Medicine 12/30/23 Shaikh Baker MD [address] [place] [address] PCP - [facility] [employer] 02/25/24 Marquis Velasquez NP [address] [place] [address] Nurse Practitioner Family Medicine 12/30/23 Medical Genetics Director Relationship Specialty Start Date End Date Antwan Perez MD [address] [place] [phone] PCP - General Family Medicine 12/30/23 Shaikh Baker MD [address] [place] [address] PCP - [facility] [employer] 02/25/24 Marquis Velasquez NP [address] [place] [address] Nurse Practitioner Family Medicine 12/30/23 Medical Genetics Director Relationship Specialty Start Date End Date Antwan Perez MD [address] [place] [address] PCP - General Family Medicine 12/30/23 Shaikh Baker MD [address] [place] [address] PCP - [facility] 02/25/24 Marquis Velasquez NP [address] [place] [address] Nurse Practitioner Family Medicine 12/30/23 Medical Genetics Director Relationship Specialty Start Date End Date Antwan Perez MD [address] [place] [phone] PCP - General Family Medicine 12/30/23 Shaikh Baker MD [address] [place] [phone] PCP - [facility] [employer] 02/25/24 Marquis Velasquez NP [address] [place] [address] Nurse Practitioner Family Medicine 12/30/23 Medical Genetics Director Relationship Specialty Start Date End Date Antwan Perez MD [address] [place] [phone] PCP - General Family Medicine 12/30/23 Shaikh Baker MD [address] [place] [address] PCP - [facility] [employer] 02/25/24 Marquis Velasquez NP [address] [place] [address] Nurse Practitioner Family Medicine 12/30/23 Medical Genetics Director Relationship Specialty Start Date End Date Antwan Perez MD [address] [place] [address] PCP - General Family Medicine 12/30/23 Shaikh Baker MD [address] [place] [phone] PCP - [facility] [employer] 02/25/24 Marquis Velasquez NP [address] [place] [address] Nurse Practitioner Family Medicine 12/30/23 Medical Genetics Director Relationship Specialty Start Date End Date Antwan Perez MD [address] [place] [phone] PCP - General Family Medicine 12/30/23 Shaikh Baker MD [address] [place] [address] PCP - [facility] [employer] 02/25/24 Marquis Velasquez NP [address] [place] [address] Nurse Practitioner Family Medicine 12/30/23 (unrecognized sect ion and content) No Status Records FoundNo Status Records FoundNo Status Records Found INFORMATION SOURCE (unrecogn ized section and content) DATE CREATED AUTHOR 07/14/2022 Ivan nicholas DATE CREATED AUTHOR AUTHOR'S ORGANIZ ATION 10/02/2022 [facility] DATE CREATED AUTHOR AUTHOR'S ORGANIZ ATION 08/25/[address] [facility] dical Specialists EPIC Goals (unrecognized section and content) Goals may be documented in a n alternate section Reason for Visit (unrecogniz ed section and content) Reason Onset Date Comments Med Refill 03/18/2024 Reason Comments Follow-up Med Refills Reason Onset Date Comments Med Refill 05/06/2024 Reason Comments Follow-up 3MO, Poison Suzi [facility] WAS GIVEN FADI ROID AND CREAM. [...] polyneuropathy, with long-term current use of insulin ([facility]) Procedures MT OFFICE/OUTPATIENT NEW HIGH MDM 60 MINUTES Marquis Velasquez, RN HEART [address] [place] [address] Rita Mejia, DPM [address] [place] [address] Referral ID Status Reason Start Date Expiration Date V isits Requested Visits Authorized [id number] Closed Specialty Services Required 01/22/2024 07/20/2024 1 1 Reason Comments Med Refill Reason Comments DM Foot Care PCP: Luci SEO 08/18/24, A1C: 8.3, BS: 142 FOR RECORDS PERTAINING TO PATIENTS WHO ARE [...] BE BASED ON THE PRIMARY CLINICAL RECORDS. [email or web address] [facility]. provides no warranty or guarantee of the accuracy or completeness of information in this document.
[2024-08-29 09:06] LABS: BUN Creatinine Ratio 21.3; Calcium 9.2 mg/dL (8.5-10.1); Carbon Dioxide 26.2 mmol/L (21.0-32.0); Chloride 106 mmol/L (98-107); Estimated GFR (African America >60 (>=60 mL/min/1.73m^2); Estimated GFR (Non-African Ame >60 (>=60 mL/min/1.73m^2); Glucose 148 mg/dL (74-106); Potassium 5.2 mmol/L (3.5-5.1); Sodium 142 mmol/L (136-145)
== END 2024-08-29 07:56 | disposition home or self-care (01) ==
LOC: LAB 07:56
PROVIDERS: PCP Nurse Practitioner; Visit Provider Nurse Practitioner
DX: R79.89 Other specified abnormal findings of blood chemistry (principal)
CPT/HCPCS: 36415; 80048

== ENCOUNTER 2024-09-09 14:54 | Outpatient (OUT) | payer BC, SELFPAY ==
[2024-09-09 15:34] LABS: Anion Gap 13.6; BUN Creatinine Ratio 19.6; Calcium 8.4 mg/dL (8.5-10.1); Carbon Dioxide 26.2 mmol/L (21.0-32.0); Chloride 102 mmol/L (98-107); Estimated GFR (African America 48 (>=60 mL/min/1.73m^2); Estimated GFR (Non-African Ame 39 (>=60 mL/min/1.73m^2); Glucose 78 mg/dL (74-106); Potassium 4.8 mmol/L (3.5-5.1); Sodium 137 mmol/L (136-145)
== END 2024-09-09 14:55 | disposition home or self-care (01) ==
LOC: LAB 14:56
PROVIDERS: PCP Nurse Practitioner; Visit Provider Nurse Practitioner
DX: R79.89 Other specified abnormal findings of blood chemistry (principal)
CPT/HCPCS: 36415; 80048

== ENCOUNTER 2024-10-24 08:43 | Outpatient (OUT) | payer BC, SELFPAY ==
--- OUTSIDE RECORDS SUMMARY | 2020-12-27 11:20 | XMS_ITS | Continuity of Care Document ---
Author Organization [facility] Address [address] [place] [address] Phone Care Team Providers Care Clinic Clerk Name Role Phone Keith Collins MD Unavailable Unavailable Allergies, Adverse Reactions, Alerts Substance Reaction Status Criticality No Known Allergies Active No Inform ation Medications Medication Instructions Dosage Effective Dates (start - stop) Status Comments metformin 850 mg tablet take 1 tablet by oral route 2 times every day with morning and evening meals 850 MG - Active atorvastatin 10 mg tablet take 1 tablet by oral route every day 10 MG - Active aspirin 81 mg tablet,delayed release take 1 tablet by oral route every day 81 MG - Active Saxenda 3 mg/0.5 mL (18 mg/3 mL) subcutaneous pen injector inject (3MG) by subcutaneous route every day in the abdomen, thigh, or upper arm 3 MG - Active Fish Oil 1,000 mg (120 mg-180 mg) capsule twice daily - Active Procedures Procedure Date Ophthal DX Image Post Retina I And R Uni Or Bi OFFICE/OUTPATIENT VISIT, EST, Low Ophthal DX Image Post Retina I And R Uni Or Bi OFFICE/OUTPATIENT VISIT, EST, Low Fundus Photography With I And R Sergio bradford Eye Exam Established Patient Comprehensi ve 1 Or More Visits Advance Directives Directive Yes / No Effective Date File Name No Information Encounters Encounter Description Practice Location Reason(s) For Visit Diagnoses Date Provider Providers Copied on Encounter OFFICE/OUTPA TIENT VISIT, EST, Low [facility]ician s, [address] [place], [address], [place] tel:[phone] [facility] [place] central serous (chief complaint)st able vision (chief complaint) Central serous chorioretinopat hy of right eyeMacular pigment epithelial detachment of right eyeVitreous degeneration of both eyesType 2 diabetes mellitus without complications 1 Dennis Parker. [address], [address], [place], [place], [id number] , [place]. tel:[phone] Referring Provider: Eddi Schultz OD, [address] [place], [address]. tel:[phone] OFFICE/OUTPA TIENT VISIT, EST, Low [facility], [address] [place], [address], [place] tel:[phone] [facility] [place] central serous retinopathy (chief complaint) Central serous chorioretinopat hy of right eyeMacular pigment epithelial detachment of right eyeVitreous degeneration of both eyesType 2 diabetes mellitus without complications 1 Dennis Parker. [address], [address], [place], [place], [id number] , [place]. tel:[phone] Referring Provider: Keith Parikh, [address] [facility], [place], [address]. tel:[phone] [facility], [address] [place], [address], [place] tel:[phone] [facility] [place] area of elevation superior to macula vs paramacular cys (chief complaint)de crease in vision (chief complaint) Central serous chorioretinopat hy of right eyeVitreous degeneration of both eyesMacular pigment epithelial detachment of right eyeType 2 diabetes mellitus without complications 0 Dennis Parker. [address], [address], [place], [place], [id number] , [place]. tel:[phone] Referring Provider: Eddi Schultz, [address] [place], [address]. tel:[phone] Family History Family Member Type Diagnosis Age At Onset Problem Family history of Diabetes jeny figueroa Payers Payer name Insurance type Covered republican ID Eva jorgensen(s) [place] [employer] [facility] [place] [id number] Social History Type Description Quantity Date Captured Comments Alcohol Use Details No Caffeine Use Details No Tobacco Use Status Ex-cigarette smoker Smoking Status Former smoker Smoking Tobacco Use Details Cigarette: Age Started: 15, Age Stopped: 33, Years Used 19 Cigarette: 20 Cigarettes per day, Pack Year: 18 Sex Male Vital Signs Date / Time: Height Weight BMI Pulse Rate Blood Pressure Temperature Respiratory Rate Body Surface Area Head Circumference Head Circ. Percentile Wt./Scott. Percentile BMI percentile Pulse Ox Inhaled Ox 3:10 PM 141/76 mm[Hg] Chief Complaint And Reason For Visit From encounter dated '12/27/2020 15:20'. central serous (chief complaint). Description: The 55 year old male presents for evaluation of central serous in the right eye. stable vision (chief complaint). Description: The patient reports stable vision in the right eye. It started about 6 month(s) ago. It occurs constantly. It affects both near and distance vision. Reason For Referral Reason For Referral No Information Plan Of Treatment Date Type Action Status Goal Tobacco cessation counseling completed Goal Tobacco cessation counseling completed Goal Tobacco cessation counseling completed History Of Present Illness Encounter Date Complaint History Of Prese nt Illness central serous The 55 year old male presents for evaluation of central serous in the right eye. stable vision The patient repo rts stable vision in the right eye. It started about 6 month(s) ago. It occurs constantly. It affects both near and distance vision. central serous retinopathy The 6 4 year old male presents for evaluation of central serous retinopathy in the right eye. Last seen about 3 month(s) ago. The pt reports no noticeable vision changes. Patient denies eye pain and flashes. area of elevation gambino perior to macula vs paramacular cys The 55 year old male referred by Dr. Schultz for a possible area of elevation 1.0 dd superior to macula vs paramacular cyst in the right eye. decrease in vision The patient i s present for evaluation of decrease in vision in the right eye. It started about 3 year(s) ago. The onset was gradual. It affects decrease in distance vision. The symptom is all of the time. The condition is mild. In addition, the condition is associated with daily activities and chores. Patient denies flashes. Patient reports intermittent floaters noticeable in the morning lasting about 30 minutes then go away in the right eye x years. Patient reports no visual changes in the left eye. 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 Return in 6 months w hiram Collins MD for follow up and OCT Related to Central serous chorioretinopathy of right eye Impression/Plan Related to 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 Impression/Plan Related to Vitre ous degeneration of both eyes Impression/Plan Related to Type 2 diabetes mellitus without complications Impression/Plan Related to Centr al serous chorioretinopathy of right eye Return in Related to Centr al serous chorioretinopathy of right eye Impression/Plan Related to Type 2 diabetes mellitus without complications Impression/Plan Related to 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 Right. Conditions: improving assessment Macular pigment epithelial detac hment of right eye impression Macular pigment epit helial detachment of right eye: H35.721. Conditions: resolved assessment Vitreous degeneration of both ey es impression Vitreous degeneratio n of both eyes: H43.813. Bilateral. Conditions: established, stable assessment Type 2 diabetes mellitus without complications impression Type 2 diabetes addy itus without complications: E11.9. Conditions: established Patient Care Teams Name Effective Dates (start - stop) Status Members No Information
--- OUTSIDE RECORDS SUMMARY | 2024-08-03 04:36 | XMS_ITS ---
Author Organization [facility] [place] Address [address] [place] [address] Care Team Providers Care Staff Cytotechnologist Name Role Phone Luci Rios CNP Primary Care Provider Lane Dominguez Unavailable [phone] REASON FOR VISIT Appt Reschedule Encounters Encounter Location Date Provider Diagnosis Pulmonary Medicine [place] [address] [place] [address] 08/03/2024 [address] Durbin Plan Of Treatment Next Appt Details Provider Name:Lane Durbin, 08/03/2025 04:30:00 PM, [address] [place], [address], Progress Notes * Dante ESCOBEDODOB: (59 yo M)Acc No.[id number]:08/03/2024 Patient: Hai ONOFRE Dante GARCIA :1965 A ge:59 Y S ex:Male Address:[facility], [address] * true * Date: Generated for Kassidy rain/Emam/eTransmitting on: 0 10/24/2024 08:50 AM EDT
--- OUTSIDE RECORDS SUMMARY | 2024-08-04 12:30 | XMS_ITS ---
Author Organization [facility] in [place] Address [address] [place] [address] Care Team Providers Care Molded Parts Inspector Name Role Phone Luci Rios CNP Primary Care Provider Unavail able Lane Durbin Unavailable [phone] Allergies No Known Allergies REASON FOR VISIT [...] Encounter Location Date Provider Diagnosis Pulmonary Medicine [address] [address] 08/04/2024 Lane Durbin Severe persistent asthma, uncomplicated J45.50 ; Peripheral eosinophilia D72.19 ; Diabetes mellitus type 2, uncomplicated E11.9 ; USP (current) use of inhaled steroids Z79.51 and [...] to manage diabetes in this situation. 08/04/2024 USP (current) use of inhaled steroids (ICD-10 - [...] plan to manage diabetes in this situation. USP (current) use of i nhaled steroids Patient was counseled to rinse & gargle with water after inhaled corticosteroid use. Obesity, unspecified He has gained some weight since last visit (235 on 03/26/2023 to 249 today). Weight loss indicated: Decrease calories, increase activity. Next Appt Details Follow Up: 1 Year, Reason: A emma Provider Name:Lanesuraj Thomas, 08/03/2025 04:30:00 PM, [address] [place], [address], Procedure Notes * Category Sub-Category Detail Notes PFT Interpretation FEV1/FVC: PFT 12/01/2020: -FEV1/FVC: 57%-FEV1: 38%-FVC: 53%-Bronchodilator response: Positive-RV: 195%-T%-DLCO: 111%-Flow-volume loop: Severe obstruction Progress Notes * Dante ESCOBEDODOB: (59 yo M)Acc No.[id number]:08/04/2024 Follow Up Patient: Dante GRAY Provider: Shani Durbin DO :1965 A ge:59 Y S ex:Male Date:08/04/2024 Address:[facility] [address] [facility], [id number] Pcp:Luci Rios CNP Check In:04:27 PM ESTCheck [...] Peripheral eosinophi kathy Modified On:08/06/2023U Status:confirmed 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 Modified On:08/06/2023 [...] morning meal Orally Once a day Trelegy Ellipta(Yohlyqfcacr-Fvewjuvyj-Pucmke) 100-62.5-25 MCG/ACT Aerosol Powder Breath Activated 1 [...] meal Orally Once a day Taking Trelegy Ellipta(Ugilzivcykc-Ecfkwxgon-Nqlmrj) 100-62.5-25 MCG/ACT Aerosol Powder Breath Activated 1 [...] Education on smoking effects provided?08/04/2024 Former B [place] ACTION PLAN Above Normal BMI Follow-up D ietary management education, guidance, and counseling * Follow Up: 1 Year (Reason: Asthma) * * Sign off status: Completed Visit Status: C HK (Check Out) true * Provider: Shani Durbin DO Date: 0 08/04/2024 Generated for Kassidy rain/Emma/Tawannaitting on: 0 10/24/2024 08:51 AM EDT History and Physical Notes * [...] APPEARANCE: Appears stated age Skin Normal Mouth [place] and moist. No c andidiasis Trachea Midline [...]
--- OUTSIDE RECORDS SUMMARY | 2024-10-14 11:30 | XMS_ITS ---
Author Organization The [facility] in [place] Address [address] [place] [address] Care Team Providers Care Pulp Drier Name Role Phone Luci Rios CNP Primary Care Provider Bharath Mireles [phone] REASON FOR VISIT 6 month f/u Encounters Encounter Location Date Provider Diagnosis [facility] (PODIATRY) [address] [place] [address] [place] [address] 10/14/2024 Bhaarth Perez Plan Of Treatment Next Appt Details Provider Name:Lane Durbin, 08/03/2025 04:30:00 PM, [address] [place], [address], Progress Notes * CHRISTIAN AMAYAANTES DanteDOB: (59 yo M)Acc No.[id number]:10/14/2024 UNLOCKED PROGRESS NOTE Follow Up Patient: Hai GARCIA Dante Provider: Kishore Perez DPM, MS :1965 A ge:59 Y S ex:Male Date:10/14/2024 Address[place], [place] Pcp:Luci Rios CNP Subjective: * Chief Complaints: * 1 . 6 month f/u. * Medical History: Objective: * Vitals: Assessment: Plan: * Treatment: * * Electronic signature of Thang Perez DPM on 10/24/2024 at 08:51 AM EDT Sign off status: Pending Visit Status: C ANC (Cancelled) * Provider: Kishore Perez DPM, MS Date: 0 10/14/2024 Generated for Kassidy Young/Sameer on: 0 10/24/2024 08:51 AM EDT
--- NOTE | 2024-10-24 | US_ITS ---
The [address] [address] Patient Name: LAVERN GARCIA MRN: [id number] date: 1965 Sex: M Assigned Patient Location: US Current Patient Location: US Accession/Order Number: [id number] Exam Date: 10/24/2024 11:36 Report Date: 10/24/2024 11:37 At the request of: DEANN GILBERT MACHINE OPERATOR TRANSPLANTER Procedure: US renal BI Bilateral Renal Ultrasound HISTORY: Elevated creatinine COMPARISON: None RIGHT kidney measures 11.3 cm. LEFT kidney measures 10.3 cm. Hydronephrosis: None RENAL STONE: No shadowing renal calculus is seen. RENAL LESIONS: 17 mm anechoic right renal cyst URINARY BLADDER: Unremarkable REPRODUCTIVE STRUCTURES Not assessed IMPRESSION : No hydronephrosis. Impression dictated by: Arslan Dunn M.D. 10/24/2024 11:37 AM Dictation Location: [place] [address] Electronically authenticated by: [id number] Y Date: 10/24/2024 11:37
--- OUTSIDE RECORDS SUMMARY | 2024-10-24 08:50 | XMS_ITS | Encounter Summary ---
Author Organization [facility] Address [address] [place] [address] Care Team Providers Care Chemical Engineering Technologist Name Role Phone Antwan Perez MD Primary Care Provider [phone] Georgina Velasquez NP Unavailable [phone] Shaikh ALONSO Baker Unavailable [phone] Encounter Details Date Type Department Care Team (Late st Contact Info) Description 01/17/2024 Clinisync Result Encounter [facility] External Department Unsolicited Provider, Generic External Data Social History Tobacco Use Types Packs/Day Years Used Date Smoking Tobacco: Former Cigarettes Passive Smoke Exposure: Past Smokeless Tobacco: Never Alcohol Use Standard Drinks/Week Comments Never 0 (1 standard drink = 0.6 oz pur e alcohol) B1300 Health Literacy Answer Date Recor ded How often do you need to hav e someone help you when you read instructions, pamphlets, or other written material from your doctor or pharmacy? Sometimes 01/21/2024 Social Connection and Isolat ion Panel [NHANES] Answer Date Recorded In a typical week, how many times do you talk on the phone with family, friends, or neighbors? More than three times a week 01/21/2024 How often do you get togethe r with friends or relatives? Never 01/21/2024 How often do you attend chur ch or adventist services? More than 4 times per year 01/21/2024 Do you belong to any clubs o r organizations such as temple groups, unions, fraternal or athletic groups, or school groups? Yes 01/21/2024 Attends Club or Organization Meetings Not on luis e 01/21/2024 Marital Status Not on file 01/21/2024 AUDIT-C Answer Date Recorded Q1: How often do you have a drink containing alcohol? Never 01/21/2024 Q2: How many drinks containi ng alcohol do you have on a typical day when you are drinking? Patient does not drink Q3: How often do you have si x or more drinks on one occasion? Never 01/21/2024 Overall Financial Resource Strain (CARDIA) Answe r Date Recorded How hard is it for you to pa y for the very basics like food, housing, medical care, and heating? Not very hard 01/21/2024 PHQ-2 Answer Date Recorded Patient Health Questionnaire-2 Score 0 10/24/2023 [facility] - Occupational Stress Questionnaire Answer Date Recorded Do you feel stress - tense, restless, nervous, or anxious, or unable to sleep at night because your mind is troubled all the time - these days? Not at all 01/21/2024 Exercise Vital Sign Answer Date Recorde d On average, how many days pe r week do you engage in moderate to strenuous exercise (like a brisk walk)? Patient declined On average, how many minutes do you engage in exercise at this level? Patient declined 01/21/2024 Hunger Vital Sign Answer Date Recorded Within the past 12 months, y ou worried that your food would run out before you got the money to buy more. Never true 01/21/20 24 Within the past 12 months, t he food you bought just didn't last and you didn't have money to get more. Never true 01/21/2024 PRAPARE - Transportation Answer Date Re corded In the past 12 months, has l ack of transportation kept you from medical appointments or from getting medications? No 12/26 In the past 12 months, has l ack of transportation kept you from meetings, work, or from getting things needed for daily living? No 01/21/2024 Housing Stability Vital Sign Answer Dash e Recorded In the last 12 months, was t here a time when you were not able to pay the mortgage or rent on time? No 01/21/2024 In the past 12 months, how m any times have you moved where you were living? 0 01/21/2024 At any time in the past 12 m [facility], were you homeless or living in a group home (including now)? No 01/21/2024 Sex and Gender Information Value Date Recorded Sex Assigned at Not on file Legal Sex Male 11:39 PM EDT Gender Identity Not on file Sexual Orientation Not on file documented as of this encounter Plan of Treatment Upcoming Encounters Date Type Department Care Team (Late st Contact Info) Description 11/19/2024 3:40 PM EDT Office Visit [facility] [address] [place] [address] Luci Rios NP [address] [place] [address] 02/23/2025 3:15 PM EDT Procedure Visit [facility] [address] [place] [address] Abisai Boateng, DPM [address] [place], [place] [address] documented as of this encounter Procedures Procedure Name Priority Date/Time Associated Diagnosis Comments XR ANKLE RT MIN 3V 01/17/2024 6: 46 AM EDT documented in this encounter Results * XR ANKLE RT MIN 3V (01/17/2024 6:46 AM EDT) Anatomical Region Laterality Modality Other 01/17/2024 6:46 AM EDT Narrative 01/17/2024 6:49 AM EDT The [place] [id number] XRay Report Signed Patient: LAVERN ESCOBEDO MR#: [id number] : 1965 Acct:[id number] Age/Sex: 58 / M ADM Date: 01/16/24 Loc: EC Attending Dr: Lizeth Martin Ordering Physician: Lizeth Martin Date of Service: 01/16/24 Procedure(s): XR ankle RT min 3V Accession Number(s): [id number] cc: Shaikh Heather Baker; Lizeth Martin [place] [id number] Patient Name: LAVERN GARCIA MRN: [id number] date: 1965 Sex: M Assigned Patient Location: Current Patient Location: Accession/Order Number: [id number] Exam Date: 01/16/2024 14:55 Report Date: 01/17/2024 06:46 At the request of: LIZETH MARTIN Procedure: XR ankle RT min 3V PROCEDURE: XR ankle RT min 3V HISTORY: RIGHT ANKLE PAIN COMPARISON: XR ankle right 10/22/2023 FINDINGS: BONES:Prior ankle and hindfoot fusion via intramedullary marci and locking screws. Prosthetic replacement of the talus. No appreciable hardware fracture loosening. No acute bone fracture or dislocation. SOFT TISSUES:Soft tissue swelling surrounding the ankle. EFFUSION:None visible. OTHER: Negative. XR/XR ankle RT min 3V IMPRESSION: 1. Stable surgical changes without evidence of hardware failure or change in alignment. Electronically authenticated by: ROBERT FITZGERALD Date: 01/17/2024 06:46 Dictated By: Robert Fitzgerald M.D. Signed By: 01/17/2449 DD/ TD/TT: Cognos Analyst: Procedure Note Radiology, Radiologist, MD - 01/17/2024 [place] [address] XRay Report Signed Patient: LAVERN ESCOBEDOMR#: [id number] : 1965Acct:[id number] Age/Sex: 58 / MADM Date: 01/16/24 Loc: EC Attending Dr: Lizeth Martin Ordering Physician: Lizeth Martin Date of Service: 01/16/24 Procedure(s): XR ankle RT min 3V Accession Number(s): [id number] cc: Shaikh Heather Baker; Lizeth Martin [place] [id number] Patient Name: LAVERN GARCIA MRN: [id number] date: 1965 Sex: M Assigned Patient Location: Current Patient Location: Accession/Order Number: [id number] Exam Date: 01/16/2024 14:55 Report Date: 01/17/2024 06:46 At the request of: LIZETH MARTIN Procedure: XR ankle RT min 3V PROCEDURE: XR ankle RT min 3V HISTORY: RIGHT ANKLE PAIN COMPARISON: XR ankle right 10/22/2023 FINDINGS: BONES:Prior ankle and hindfoot fusion via intramedullary marci and locking screws. Prosthetic replacement of the talus. No appreciable hardwarefracture loosening. No acute bone fracture or dislocation. SOFT TISSUES:Soft tissue swelling surrounding the ankle. EFFUSION:None visible. OTHER: Negative. XR/XR ankle RT min 3V IMPRESSION: 1. Stable surgical changes without evidence of hardware failure or changein alignment. Electronically authenticated by: ROBERT FITZGERALD Date: 01/17/2024 06:46 Dictated By: Robert Fitzgerald M.D. Signed By:01/17/2449 DD/ TD/TT: Cognos Analyst: Generic External Data Provider [facility] Final Result documented in this encounter Visit Diagnoses Not on filedocumented in this encounter Care Teams Chemical Engineering Technologist Relationship Specialty Start Date End Date Antwan Perez MD [address] [place] [address] PCP - General Family Medicine 12/30/23 Shaikh Baker MD [address] [place] [address] PCP - [employer] 02/25/24 Georgina Velasquez NP [address] [place] [address] Nurse Practitioner Family Medicine 12/30/23 documented as of this encounter
--- OUTSIDE RECORDS SUMMARY | 2024-10-24 08:50 | XMS_ITS | Encounter Summary ---
Author Organization [facility] Address [address] [place] [address] Care Team Providers Care Multi Operation Machine Operator Name Role Phone Shaikh ALONSO Baker Primary Care Provider Shaikh ALONSO Baker Primary Care Provider Antwan Perez MD Primary Care Provider [phone] Georgina Velasquez NP Unavailable Shaikh ALONSO Baker Unavailable [phone] Encounter Details Date Type Department Care Team (Late st Contact Info) Description 06/10/2023 Orders Only [facility] [address] [place] [address] Bharath Perez MD [address] [place] [address] [place] [address] Social History Tobacco Use Types Packs/Day Years Used Date Smoking Tobacco: Never Assessed Sex and Gender Information Value Date Recorded Sex Assigned at Not on file Legal Sex Male 11:39 PM EDT Gender Identity Not on file Sexual Orientation Not on file documented as of this encounter Plan of Treatment Upcoming Encounters Date Type Department Care Team (Late st Contact Info) Description 11/19/2024 3:40 PM EDT [facility] [address] [place] [address] Luci Rios NP [address] [place] [address] 02/23/2025 3:15 PM EDT Procedure Visit [facility] [address] [place] [address] Abisai Boateng, DPM [address] [place], [place] [address] documented as of this encounter Procedures Procedure Name Priority Date/Time Associated Diagnosis Comments -X RAY : ANKLE, THREE VIEWS Routine 06/10/2023 7:59 PM EST documented in this encounter Results * -X RAY : ANKLE, THREE VIEWS (06/10/2023 7:59 PM EST) Anatomical Region Laterality Modality Radiographic Juliann ging us Bharath Perez MD IMG XR PROCEDURES Final Re sult documented in this encounter Visit Diagnoses Not on filedocumented in this encounter Care Teams Multi Operation Machine Operator Relationship Specialty Start Date End Date Shaikh Baker MD PCP - General Internal Medicine 12/05/22 06/24/23 Shaikh Baker MD [address] [place] [address] PCP - General Internal Medicine 06/25/23 12/29/23 Antwan Perez MD [address] [place] [address] PCP - General Family Medicine 12/30/23 Shaikh Baker MD [address] [place] [address] PCP - [facility] 02/25/24 Georgina Velasquez NP [address] [place] [address] Nurse Practitioner Family Medicine 12/30/23 documented as of this encounter
--- OUTSIDE RECORDS SUMMARY | 2024-10-24 08:50 | XMS_ITS | Patient Health Record ---
Author Organization [facility] [place] Address [address] [place] [address] Care Team Providers Care Newspaper Vendor Name Role Phone Luci Rios CNP Primary Care Provider Unavail able Rey Perez Unavailable [phone] Lizeth Martin Unavailable [phone] Lane Durbin Unavailable [phone] Allergies No Known Allergies Results Component Value Reference Range Notes XR ankle RT min 3V (Not yet reviewed by provider) Interpretation: Performing Lab: Notes/Report: Source Facility: [place] [address] XRay Report Signed Patient: LAVERN ESCOBEDO MR#: [id number] : 1965 Acct:[id number] Age/Sex: 59 / M ADM Date: 04/15/24 Loc: RAD Attending Dr: Rey Perez D.P.M. Ordering Physician: Rey Perez D.P.M. Date of Service: 04/15/24 Procedure(s): XR ankle RT min 3V Accession Number(s): [id number] cc: Shaikh Heather Baker; Rey Perez D.P.M. [place] [address] Patient Name: LAVERN GARCIA MRN: [id number] date: 1965 Sex: M Assigned Patient Location: RAD Current Patient Location: RAD Accession/Order Number: [id number] Exam Date: 04/15/2024 15:10 Report Date: 04/17/2024 15:14 At the request of: REY PEREZ Procedure: XR ankle RT min 3V PROCEDURE: XR ankle RT min 3V HISTORY: RIGHT ANKLE PAIN COMPARISON: XR ankle right 01/16/2024 FINDINGS: BONES:Mechanical fusion of the ankle joint and hindfoot via intramedullary marci and locking screws. Prosthetic spacer replacement of the talus. No appreciable hardware fracture loosening. No bone fracture or dislocation. SOFT TISSUES:Soft tissue swelling surrounding the ankle, slightly increased. EFFUSION:None visible. OTHER: Negative. XR/XR ankle RT min 3V IMPRESSION: 1. Stable surgical changes without evidence of hardware failure or change in alignment. Electronically authenticated by: ROBERT FITZGERALD Date: 04/17/2024 15:14 Dictated By: Robert Fitzgerald M.D. Signed By: 04/17/241516 DD/ 13 TD/TT: Janitorial Supervisor: [place] [address] XRay Report Signed Patient: LAVERN HARKINS MR#: [id number] : 1965 Acct:[id number] Age/Sex: 59 / M ADM Date: 04/15/24 Loc: [facility] Attending Dr: Rey Perez D.P.M. Ordering Physician: Rey Perez D.P.M. Date of Service: 04/15/24 Procedure(s): XR ank le RT min 3V Accession Number(s): [id number] cc: Shaikh Mala Baker; Rey Perez D.P.M. The [place] [address] Patient Name: LAVERN GARCIA MRN: [id number] date: 1965 Sex: M Assigned Patient Location: RAD Current Patient Location: RAD Accession/Order Numb er: [id number] Exam Date: 15:10 Report Date: 04/17/2024 15:14 At the request of: REY PEREZ Procedure: XR ankle RT min 3V PROCEDURE: XR ankle RT min 3V HISTORY: RIGHT ANKLE PAIN COMPARISON: XR ankle right 01/16/2024 FINDINGS: BONES:Mechanical fus ion of the ankle joint and hindfoot via intramedullary marci and locking screws. Prosthetic spacer replacement of the talus. No appreciable hardware fracture lo osening. No bone fracture or dislocation. SOFT TISSUES:Soft ti ssue swelling surrounding the ankle, slightly increased. EFFUSION:None visible. OTHER: Negative. X R/XR ankle RT min 3V IMPRESSION: 1. Stable surgical c hanges without evidence of hardware failure or change in alignment. Electronically authe nticated by: ROBERT FITZGERALD Date: 04/17/2024 15:14 Dictated By: Robert Fitzgerald M.D. Signed By: 04/17/241516 DD/ 13 TD/TT: Janitorial Supervisor: XR ankle RT min 3V (Not yet reviewed by provider) Interpretation: Performing Lab: Notes/Report: Source Facility: [place] [address] XRay Report Signed Patient: LAVERN ESCOBEDO MR#: [id number] : 1965 Acct:[id number] Age/Sex: 58 / M ADM Date: 01/16/24 Loc: Attending Dr: Lizeht Martin Ordering Physician: Lizeth Martin Date of Service: 01/16/24 Procedure(s): XR ankle RT min 3V Accession Number(s): [id number] cc: Shaikh Heather Baker; Lizeth Martin [place] [address] Patient Name: LAVERN GARCIA MRN: [id number] date: 1965 Sex: M Assigned Patient Location: Current Patient Location: Accession/Order Number: [id number] Exam Date: 01/16/2024 14:55 Report Date: 01/17/2024 [...] Robert Fitzgerald M.D. Signed By: 01/17/2449 DD/ 5 TD/TT: Janitorial Supervisor: [place] [address] XRay Report Signed Patient: LAVERN HARKINS MR#: [id number] : 1965 Acct:[id number] Age/Sex: 58 / M ADM Date: 01/16/24 Loc: EC Attending Dr: Lizeth Martin Ordering Physician: Lizeth Martin Date of Service: 01/16/24 Procedure(s): XR ank le RT min 3V Accession Number(s): [id number] cc: Shaikh Mala Baker; Lizeth Martin [place] [address] Patient Name: LAVERN GARCIA MRN: [id number] date: 1965 Sex: M Assigned Patient Location: Current Patient Location: Accession/Order Numb er: [id number] Exam Date: 01/16/2024 14:55 Report Date: 01/17/2024 06:46 At the request of: LIZETH MARTIN Procedure: XR ankle RT min 3V PROCEDURE: XR ankle RT min 3V HISTORY: RIGHT ANKLE PAIN COMPARISON: XR ankle right 10/22/2023 FINDINGS: BONES:Prior ankle an d hindfoot fusion via intramedullary marci and locking screws. Prosthetic r eplacement of the talus. No appreciable hardware fracture loosening. No acute bone fracture or dislocation. SOFT TISSUES:Soft ti ssue swelling surrounding the ankle. EFFUSION:None visible. OTHER: Negative. X R/XR ankle RT min 3V IMPRESSION: 1. Stable surgical c hanges without evidence of hardware failure or change in alignment. Electronically authe nticated by: ROBERT FITZGERALD Date: 01/17/2024 06:46 Dictated By: Robert Fitzgerald M.D. Signed By: 01/17/2449 DD/ 5 TD/TT: Janitorial Supervisor: Reason For Referral No Information Medications Medication SIG (Take, Route, Frequency, Duration) Notes Start Date End Date Status EQ Vegetable Laxative 8.6 MG Oral for 7 Days Active Coreg 25 MG 1 tablet with food Orally Twice a day Active Carvedilol 25 MG Oral for 90 Days Active Calcium 500 MG 1 tablet with meals Orally daily for 90 days 04/17/2023 Active Meloxicam 15 MG TAKE 1 TABLET BY JAVAN ONCE DAILY NEEDED FOR PAIN for 30 Active Losartan Potassium-HCTZ 100-25 MG 1 tablet Orally Once a day Active Levemir FlexTouch 100 UNIT/ML as directed Subcutaneous Active Fish Oil 1200 MG 1 capsule Orally Onc e a day Active Vitamin D3 Maximum Strength 125 MCG (5000 UT) Oral for 90 Days Active Atorvastatin Calcium 40 MG 1 tablet Orally Once a day Active Trelegy Ellipta 100-62.5-25 MCG/ACT 1 puff [...] yaneli l Orally Once a day Active Immunizations Vaccine Route Administration Date Status Comme nts Capvaxive Pneumococcal 21 0. 5mL pre-filled syringe Unknown 05/28/2024 Administered Flu, (80759) -historic- Whole Unknown 05/28/2024 Admini stered Flu, Unspecified Unknown 03/13/2022 Administered SARS-COV-2 (COVID 19 Pfizer 30mcg/0.3mL) Unknown 10/10/2020 Administered Tdap (Boostrix) Unknown 03/23/2022 Administered ZOSTER (SHINGLES) VACCINE (HZV) Unknown 03/23/2022 Admi nistered Social History Tobacco Use: Social History Observation Description Date Details (start date - stop date) Former Smoker NA - NA Tobacco Control (Standard) Question Answer Notes Tobacco use: Former smoker How long has it been since y ou last smoked? 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 Problem 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 Problem 527240691 meterman (current) use of inhaled steroids (Z79.51) Active confirmed Problem 127079242 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) Active confirmed Problem Hypertension (87517193) Hypertension (I10) Active confirmed Problem Asthma (822808208) Asthma (J45.909) Active conf irmed Problem Gastroesophageal reflux disease (483560426) GERD (gastroesophagea l reflux disease) (K21.9) Active confirmed Problem Arthralgia of the ankle and/or foot (874467748) Right ankle pain (M25.571) Active confirmed Problem Acquired equinus deformity of right foot (M21.6X1) Active confirmed Problem Diabetes mellitus type 2 (50492760) Diabetes mellitus type 2, uncomplicated (E11.9) Active confirmed Problem Localized, primary osteoarthritis of the ankle and/or foot (229431664) Osteoarthritis of right ankle (M19.071) Active confirmed Problem Diabetic autonomic neuropathy due to type 2 diabetes mellitus (450638182) Type 2 diabetes mellitus with peripheral neuropathy (E11.43) Active confirmed Problem Avascular necrosis of bone (448671457) Avascular necrosis of bone (M87.00) Active confirmed Problem 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) Active confirmed Problem Diabetes mellitus (49187762) Diabetes mellitus (E11.9) Active confirmed Problem 530630860 Body mass index [BMI] 39.0-39.9, adult (Z68.39) Active confirmed Problem Peripheral eosinophilia (D72.19) Active confirmed Vital Signs Heart Rate 60 /min 08/04/2024 Temperature 97.1 degrees Fahrenheit 08/04/2024 Respiratory Rate 18 /min 08/04/2024 Blood pressure diastolic 89 mm Hg 08/04/2024 Oximetry 97 % 08/04/2024 Height 67 in 08/04/2024 Blood pressure systolic 157 mm Hg 08/04/2024 Weight 238.6 lbs 08/04/2024 BMI 37.37 kg/m2 08/04/2024 Encounters Encounter Location Date Provider Diagnosis [facility] (PODIATRY) [address] [place] [address] [place] [address] 01/16/2024 Lizeth Martin Osteoarthritis of right ankle M19.071 and Idiopathic aseptic necrosis of right ankle M87.071 [facility] (PODIATRY) [address] [place] [address] [place] [address] 04/15/2024 Lizeth Martin Right ankle pain M25.571 ; Primary osteoarthritis, right ankle and foot M19.071 and Idiopathic aseptic necrosis of right foot M87.074 [facility] [place] [address] [place] [address] 08/04/2024 [facility] Severe persistent asthma, uncomplicated J45.50 ; Peripheral eosinophilia D72.19 ; Diabetes mellitus type 2, uncomplicated E11.9 ; [facility] (current) use of inhaled steroids Z79.51 and Obesity, unspecified E66.9 [facility] [place] [address] [place] [address] 08/03/2024 [facility] Assessments Encounter Date Diagnosis (ICD Code) Assessment [...] biologics. 08/04/2024 Peripheral eosinophilia (ICD-10 - D72.19) 01/16/2024 Osteoarthritis of right ankle (ICD-10 - M19.071) Lavern is 9 months status post tibiotalar calcaneal fusion with custom implant, DOS: 04/11/2023.He is doing well. He is working 40 hours/week with minimal complaints.He states he is doing much better than he was prior to surgery and is very happy he underwent ankle fusion.He may continue activity as tolerated with no specific restrictions.Deja w-up in [address] Perez, sooner if any issues arise. I would like weightbearing ankle x-rays at follow-up. 01/16/2024 Idiopathic aseptic necrosis of right ankle (ICD-10 - M87.071) 04/15/2024 Right ankle pain (ICD-10 - M25.571) 04/15/2024 Primary osteoarthritis, right ankle and foot (ICD-10 - M19.071) Lavern is 1 year status post tibiotalar calcaneal fusion with custom implant, DOS: 04/11/2023.He is doing well. He is working 40 hours/week with minimal complaints.He states he is doing much better than he was prior to surgery and is very happy he underwent ankle fusion.He may continue activity as tolerated with no specific restrictions.Deja w-up in [address] Perez, sooner if any issues arise. I would like weightbearing ankle x-rays at follow-up. 04/15/2024 Idiopathic aseptic necrosis of right foot (ICD-10 - M87.074) 08/04/2024 Diabetes mellitus type 2, uncomplicated (ICD-10 - E11.9) Steroids prescribed for this patient's underlying pulmonary disease can adversely affect blood glucose levels, inducing hyperglycemia and worsening underlying diabetes. The patient is encouraged to follow up with the primary care provider to create a plan to manage diabetes in this situation. 08/04/2024 meterman (current) use of inhaled steroids (ICD-10 - Z79.51) Patient was counseled to rinse & gargle with water after inhaled corticosteroid use. 08/04/2024 Obesity, unspecified (ICD-10 - E66.9) He has gained some weight since last visit (235 on 03/26/2023 to 249 today). Weight loss indicated: Decrease calories, increase activity. Plan Of Treatment Pending Test Test Name Order Date XR Ankle RT (3 views) * (161) 01/16/2024 XR Ankle RT (3 views) * (161) 04/15/2024 XR ankle RT min 3V 01/17/2024 XR ankle RT min 3V 04/17/2024 Next Appt Details Provider Name:Lane Durbin, 08/03/2025 04:30:00 PM, [address] [place], [address], Insurance Providers Payer Name Payer Address Payer Phone Subscriber Number Group Number Insured Name Patient Relationship to Insured Coverage Start Date Coverage End Date [employer] PPO PLUS LOCAL PLAN [address] [place] [address] [id number] Lavern Escobedo Self - patient is the insured 9 Medical (General) History Medical History History ICD Code Severe persistent asthma, uncomplicated J45.50 Peripheral eosinophilia D72.19 Diabetes mellitus type 2, uncomplicated E11.9 Type 2 diabetes mellitus with peripheral neuropathy E11.43 Gastroesophageal reflux disease K21.9 Hyperlipidemia E78.5 Osteoarthritis of both knees M17.0 Intra-articular loose body M24.00 Wyatt's itch B35.0 Dermatophytic onychia B35.1 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
--- OUTSIDE RECORDS SUMMARY | 2024-10-24 08:50 | XMS_ITS | Encounter Summary ---
Author Organization [facility] Address [address] [place] [address] Care Team Providers Care Preassembler And Inspector Name Role Phone Shaikh ALONSO Baker Primary Care Provider [phone] Antwan Perez MD Primary Care Provider [phone] Georgina Velasquez NP Unavailable [phone] Shaikh ALONSO Baker Unavailable [phone] Encounter Details Date Type Department Care Team (Late st Contact Info) Description 10/23/2023 Clinisync Result Encounter [facility] Department Unsolicited Provider, Generic External Data Social History Tobacco Use Types Packs/Day Years Used Date Smoking Tobacco: Former Cigarettes Passive Smoke Exposure: Past Smokeless Tobacco: Never Alcohol Use Standard Drinks/Week Comments Never 0 (1 standard drink = 0.6 oz pur e alcohol) PHQ-2 Answer Date Recorded Patient Health Questionnaire-2 Score 0 10/24/2023 Sex and Gender Information Value Date Recorded Sex Assigned at Not on file Legal Sex Male 11:39 PM EDT Gender Identity Not on file Sexual Orientation Not on file documented as of this encounter Functional Status * Over the past 2 weeks, how often have you been bothered by any of the following problems? Question Answer Date of Assessment Author Little interest or pleasure in doing things Not at all 10/24/2023 3:08 PM EDT Lis Godinez M A Feeling down, depressed, or hopeless Not at all 10/24/2023 3:08 PM EDT Lis Godinez M A Patient Health Questionnaire -2 Score 0 10/24/2023 3:08 PM EDT Lis Godinez M A documented as of this encounter Plan of Treatment Upcoming Encounters Date Type Department Care Team (Late st Contact Info) Description 11/19/2024 3:40 PM EDT Office Visit [facility] [address] [place] [address] Luci Rios NP [address] [facility] [place] [address] 02/23/2025 3:15 PM EDT Procedure Visit [facility] [address] [place] [address] Abisai Boateng, DPM [address] [place], [place] [phone] documented as of this encounter Procedures Procedure Name Priority Date/Time Associated Diagnosis Comments XR ANKLE RT MIN 3V 10/23/2023 7: 35 AM EDT documented in this encounter Results * XR ANKLE RT MIN 3V (10/23/2023 7:35 AM EDT) Anatomical Region Laterality Modality Other 10/23/2023 7:35 AM EDT Narrative 10/23/2023 7:38 AM EDT The [address] [address] XRay Report Signed Patient: LAVERN ESCOBEDO MR#: [id number] : 1965 Acct:[id number] Age/Sex: 58 / M ADM Date: 10/22/23 Loc: EC Attending Dr: Rey Perez D.P.M. Ordering Physician: Rey Perez D.P.M. Date of Service: 10/22/23 Procedure(s): XR ankle RT min 3V Accession Number(s): [id number] cc: Shaikh Heather Baker; Rey Perez D.P.M. The [place] [address] Patient Name: LAVERN GARCIA MRN: [id number] date: 1965 Sex: M Assigned Patient Location: Current Patient Location: Accession/Order Number: [id number] Exam Date: 10/22/2023 15:17 Report Date: 10/23/2023 07:35 At the request of: REY PEREZ Procedure: XR ankle RT min 3V PROCEDURE: XR ankle RT min 3V COMPARISON: 09/10/2023 HISTORY: RIGHT ANKLE PAIN FINDINGS: BONES:Stable ankle fusion with talus spacer. No acute fracture, dislocation or mechanical failure. Degenerative changes of the midfoot hindfoot junction with joint space narrowing. Heterotopic bone. SOFT TISSUES:Mild diffuse soft tissue swelling, stable EFFUSION:None visible. OTHER: Negative. XR/XR ankle RT min 3V IMPRESSION: Stable ankle fusion with no mechanical failure Electronically authenticated by: GERA BLUM Date: 10/23/2023 07:35 Dictated By: Gera Blum M.D. Signed By: 10/23/23 0738 DD/ 0735 TD/TT: Assembler Dc Field Ring: Procedure Note Radiology, Radiologist, MD - 10/23/2023 [place] [address] XRay Report Signed Patient: LAVERN ESCOBEDOMR#: [id number] : 1965Acct:[id number] Age/Sex: 58 / MADM Date: 10/22/23 Loc: EC Attending Dr: Rey Perez D.P.M. Ordering Physician: Rey Perez D.P.M. Date of Service: 10/22/23 Procedure(s): XR ankle RT min 3V Accession Number(s): [id number] cc: Shaikh Heather Baker; Rey Perez D.P.M. The [address] [address] Patient Name: LAVERN GARCIA MRN: [id number] date: 1965 Sex: M Assigned Patient Location: Current Patient Location: Accession/Order Number: [id number] Exam Date: 10/22/2023 15:17 Report Date: 10/23/2023 07:35 At the request of: REY PEREZ Procedure: XR ankle RT min 3V PROCEDURE: XR ankle RT min 3V COMPARISON: 09/10/2023 HISTORY: RIGHT ANKLE PAIN FINDINGS: BONES:Stable ankle fusion with talus spacer. No acute fracture,dislocation or mechanical failure. Degenerative changes of the midfoot hindfoot junctionwith joint space narrowing. Heterotopic bone. SOFT TISSUES:Mild diffuse soft tissue swelling, stable EFFUSION:None visible. OTHER: Negative. XR/XR ankle RT min 3V IMPRESSION: Stable ankle fusion with no mechanical failure Electronically authenticated by: GERA BLUM Date: 10/23/2023 07:35 Dictated By: Gera Blum M.D. Signed By:10/23/2338 DD/ TD/TT: Assembler Dc Field Ring: Generic External Data Provider [facility] Final Result documented in this encounter Visit Diagnoses Not on filedocumented in this encounter Care Teams Preassembler And Inspector Relationship Specialty Start Date End Date Shaikh Baker MD [address] [place] [phone] PCP - General Internal Medicine 06/25/23 12/29/23 Antwan Perez MD [address] [place] [address] PCP - General Family Medicine 12/30/23 Shaikh Baker MD [address] [place] [address] PCP - [facility] 02/25/24 Georgina Velasquez NP [address] [place] [address] Nurse Practitioner Family Medicine 12/30/23 documented as of this encounter
--- OUTSIDE RECORDS SUMMARY | 2024-10-24 08:50 | XMS_ITS | Referral Summary ---
Author Organization [facility] Address [address] [place] [address] Care Team Providers Care Grease Renderer Name Role Phone Unavailable Primary Care Provider Unavailabl e Social History Tobacco Use Types Packs/Day Years Used Date Smoking Tobacco: Never Assessed [place] Safety & Environment Answer Date Rec orded Fear of Current or Ex-Partner Not on file Emotionally Abused Not on file 07/18/2023 Physically Abused Not on file 07/18/2023 Sexually Abused Not on file 07/18/2023 Physically or Sexually Abused Not on file Sex and Gender Information Value Date Recorded Sex Assigned at Not on file Gender Identity Not on file Sexual Orientation Not on file Plan of Treatment Not on file
--- OUTSIDE RECORDS SUMMARY | 2024-10-24 08:50 | XMS_ITS | Encounter Summary ---
Author Organization [facility] Address [address] [place] [address] Care Team Providers Care Medical Secretary Receptionist Name Role Phone Antwan Perez MD Primary Care Provider [phone] Georgina Velasquez NP Unavailable [phone] Shaikh ALONSO Baker Unavailable [phone] Encounter Details Date Type Department Care Team (Late st Contact Info) Description 04/17/2024 Clinisync Result Encounter [facility] External Department Unsolicited [...] often do you attend chur ch or baptist services? More than 4 times per year 01/21/2024 Do you belong to any clubs o r organizations such as worship groups, unions, fraternal or athletic groups, or [...] Date Recorded Patient Health Questionnaire-2 Score 0 01/22/2024 [facility] - Occupational Stress Questionnaire Answer Date Recorded [...] any time in the past 12 m [place], were you homeless or living in a mcc (including now)? No 01/21/2024 Sex and Gender [...] [facility] [address] [place] [address] Luci Rios, MARIA FERNANDA [address] [facility] [place] [address] 02/23/2025 3:15 PM EDT Procedure Visit [facility] [address] [place] [address] Abisai Boateng, DPM [address] [place] [address] documented as of this encounter Procedures Procedure Name Priority Date/Time Associated Diagnosis Comments XR ANKLE RT MIN 3V 04/17/2024 3: 14 PM EST documented in this encounter Results * XR ANKLE RT MIN 3V (04/17/2024 3:14 PM EST) Anatomical Region Laterality Modality Other 04/17/2024 3:14 PM EST Narrative 04/17/2024 3:17 PM EST The [address] [address] XRay Report Signed Patient: LAVERN ESCOBEDO MR#: [id number] : 1965 Acct:[id number] Age/Sex: 59 / M ADM Date: 04/15/24 Loc: RAD Attending Dr: Rey Perez D.P.M. Ordering Physician: Rey Perez D.P.M. Date of Service: 04/15/24 Procedure(s): XR ankle RT min 3V Accession Number(s): [id number] cc: Shaikh Heather Baker; Rey Perez D.P.M. The [place] [address] Patient Name: LAVERN GARCIA MRN: [id number] date: 1965 Sex: M Assigned Patient Location: RAD Current Patient Location: RAD Accession/Order Number: [id number] Exam Date: 04/15/2024 15:10 Report Date: 04/17/2024 [...] Dictated By: Robert Fitzgerald M.D. Signed By: 04/17/24 1517 DD/ 13 TD/TT: Construction Skills Teacher: Procedure Note Radiology, Radiologist, MD - 04/17/2024 [place] [address] XRay Report Signed Patient: LAVERN ESCOBEDOMR#: [id number] : 1965Acct:[id number] Age/Sex: 59 / MADM Date: 04/15/24 Loc: RAD Attending Dr: Rey Perez D.P.M. Ordering Physician: Rey Perez D.P.M. Date of Service: 04/15/24 Procedure(s): XR ankle RT min 3V Accession Number(s): [id number] cc: Shaikh Heather Baker; Rey Perez D.P.M. [place] [id number] Patient Name: LAVERN GARCIA MRN: [id number] date: 1965 Sex: M Assigned Patient Location: RAD Current Patient Location: RAD Accession/Order Number: [id number] Exam Date: 04/15/2024 15:10 Report Date: 04/17/2024 15:14 At the request of: REY PEREZ Procedure: XR ankle RT min 3V PROCEDURE: XR ankle RT min 3V HISTORY: RIGHT ANKLE PAIN COMPARISON: XR ankle right 01/16/2024 FINDINGS: BONES:Mechanical fusion of the ankle joint and hindfoot via intramedullaryrod and locking screws. Prosthetic spacer replacement of the talus. Noappreciable hardware fracture loosening. No bone fracture or dislocation. SOFT TISSUES:Soft tissue swelling surrounding the ankle, slightlyincreased. EFFUSION:None visible. OTHER: Negative. XR/XR ankle RT min 3V IMPRESSION: 1. Stable surgical changes without evidence of hardware failure or changein alignment. Electronically authenticated by: ROBERT FITZGERALD Date: 04/17/2024 15:14 Dictated By: Robert Fitzgerald M.D. Signed By:04/17/24 1517 DD/ TD/TT: Construction Skills Teacher: Generic External Data Provider [facility] Final Result documented in this encounter Visit Diagnoses Not on filedocumented in this encounter Care Teams Medical Secretary Receptionist Relationship Specialty Start Date End Date Antwan Perez MD [address] [place] [address] PCP - General Family Medicine 12/30/23 Shaikh Baker MD [address] [place] [address] [facility] 02/25/24 Georgina Velasquez NP [address] [place] [address] Nurse Practitioner Family Medicine 12/30/23 documented as of this encounter
--- OUTSIDE RECORDS SUMMARY | 2024-10-24 08:50 | XMS_ITS | Clinical Summary ---
Author Organization [facility] Address [address] [place] [address] Care Team Providers Care Accounting Advisory Services Manager Name Role Phone Unavailable Primary Care Provider Unavailabl e Social History Tobacco Use Types Packs/Day Years Used Date Smoking Tobacco: Never Assessed [facility] Safety & Environment Answer Date Rec orded [...]
--- OUTSIDE RECORDS SUMMARY | 2024-10-24 08:50 | XMS_ITS | Encounter Summary ---
Author Organization [facility] Address [address] [place] [address] Care Team Providers Care Inspector Quality Assurance Name Role Phone Shaikh ALONSO Baker Primary Care Provider Antwan Perez MD Primary Care Provider Georgina Velasquez NP Unavailable Shaikh ALONSO Baker Unavailable [phone] Encounter Details Date Type Department Care Team (Late st Contact Info) Description 06/25/2023 Clinisync Result Encounter [facility] External Department Unsolicited Provider, Generic External Data Social History Tobacco Use Types Packs/Day Years Used Date Smoking Tobacco: Former Cigarettes Sex and Gender Information Value Date Recorded Sex Assigned at Not on file Legal Sex Male 11:39 PM EDT Gender Identity Not on file Sexual Orientation Not on file documented as of this encounter Plan of Treatment Upcoming Encounters Date Type Department Care Team (Late st Contact Info) Description 11/19/2024 3:40 PM EDT Office Visit [facility] [address] [place] [address] Luci Rios NP [address] [place] [address] 02/23/2025 3:15 PM EDT Procedure Visit [facility] [address] [place] [address] Abisai Boateng, DPEv [address] [address] documented as of this encounter Procedures Procedure Name Priority Date/Time Associated Diagnosis Comments CT ANKLE RT WO CON 06/25/2023 4: 07 PM EST documented in this encounter Results * CT ANKLE RT WO CON (06/25/2023 4:07 PM EST) Anatomical Region Laterality Modality Other 06/25/2023 4:07 PM EST Narrative 06/25/2023 4:10 [place] [address] CT Scan Report Signed Patient: LAVERN ESCOBEDO MR#: [id number] : 1965 Acct:[id number] Age/Sex: 58 / M ADM Date: 06/25/23 Loc: CT Attending Dr: Rey Perez D.P.M. Ordering Physician: Rey Perez D.P.M. Date of Service: 06/25/23 Procedure(s): CT ankle RT wo con Accession Number(s): [id number] cc: Shaikh Heather Baker [address] [address] Patient Name: LAVERN GARCIA MRN: [id number] date: 1965 Sex: M Assigned Patient Location: CT Current Patient Location: CT Accession/Order Number: [id number] Exam Date: 06/25/2023 15:11 Report Date: 06/25/2023 16:07 At the request of: REY PEREZ Procedure: CT ankle RT wo con EXAMINATION: CT ankle RT wo con HISTORY: Degenerative Disc Disease Right Ankle M87.071 COMPARISON: 12/04/2022, 06/05/2023 TECHNIQUE: Multi-planar CT images were created without IV contrast. Dose reduction techniques were achieved by using automated exposure control and/or adjustment of mA and/or kV according to patient size and/or use of iterative reconstruction technique. FINDINGS: BONES: Stable ankle fusion with a talus spacer and retrograde intramedullary marci extending through the calcaneus into the tibia and proximally and distally. No acute fracture, dislocation or mechanical failure. No evidence of loosening. Stable degenerative changes with joint space narrowing. Moderate to marked permeative pattern of the bones consistent with osteopenia . Moderate to severe degenerative osteoarthropathy of the knee with plvl-tz-vnga articulation and remodeling of the lateral compartment SOFT TISSUES: Negative. No visible soft tissue swelling. EFFUSION: None visible. OTHER: Negative. CT/CT ankle RT wo con IMPRESSION: Stable ankle fusion Diffuse osteopenia Moderate to severe degenerative osteoarthritis of the knee Electronically authenticated by: GERA BLUM Date: 06/25/2023 16:07 Dictated By: Gera Blum M.D. Signed By: 06/25/23 1610 DD/ 1607 TD/TT: Emergency Services Director: Procedure Note Radiology, Radiologist, MD - 06/25/2023 [place] [address] CT Scan Report Signed Patient: LAVERN ESCOBEDOMR#: [id number] : 1965Acct:[id number] Age/Sex: 58 / MADM Date: 06/25/23 Loc: CT Attending Dr: Rey Perez D.P.M. Ordering Physician: Rey Perez D.P.M. Date of Service: 06/25/23 Procedure(s): CT ankle RT wo con Accession Number(s): [id number] cc: Shaikh Heather Baker The [place] [address] Patient Name: LAVERN GARCIA MRN: [id number] date: 1965 Sex: M Assigned Patient Location: CT Current Patient Location: CT Accession/Order Number: [id number] Exam Date: 06/25/2023 15:11 Report Date: 06/25/2023 16:07 At the request of: REY PEREZ Procedure: CT ankle RT wo con EXAMINATION: CT ankle RT wo con HISTORY: Degenerative Disc Disease Right Ankle M87.071 COMPARISON: 12/04/2022, 06/05/2023 TECHNIQUE: Multi-planar CT images were created without IV contrast. Dose reduction techniques were achieved by using automated exposure controland/or adjustment of mA and/or kV according to patient size and/or use ofiterative reconstruction technique. FINDINGS: BONES: Stable ankle fusion with a talus spacer and retrogradeintramedullary marci extending through the calcaneus into the tibia and proximally and distally. No acute fracture, dislocation or mechanical failure. No evidence of loosening. Stable degenerative changes with joint space narrowing. Moderate to marked permeative pattern of the bones consistent with osteopenia . Moderate to severe degenerative osteoarthropathy of the knee with xowl-gk-rjrb articulationand remodeling of the lateral compartment SOFT TISSUES: Negative. No visible soft tissue swelling. EFFUSION: None visible. OTHER: Negative. CT/CT ankle RT wo con IMPRESSION: Stable ankle fusion Diffuse osteopenia Moderate to severe degenerative osteoarthritis of the knee Electronically authenticated by: GERA BLUM Date: 06/25/2023 16:07 Dictated By: Gera Blum M.D. Signed By:06/25/23 1610 DD/ 1607 TD/TT: Emergency Services Director: us Generic External Data Provider [facility] Final Result documented in this encounter Visit Diagnoses Not on filedocumented in this encounter Care Teams Inspector Quality Assurance Relationship Specialty Start Date End Date Shaikh Baker MD [address] [place] [address] PCP - General Internal Medicine 06/25/23 12/29/23 Antwan Perez MD [address] [place] [address] PCP - General Family Medicine 12/30/23 Shaikh Baker MD [address] [place] [address] PCP - [facility] 02/25/24 Georgina Velasquez NP [address] [place] [address] Nurse Practitioner Family Medicine 12/30/23 documented as of this encounter
--- OUTSIDE RECORDS SUMMARY | 2024-10-24 08:50 | XMS_ITS | Encounter Summary ---
Author Organization [facility] Address [address] [place] [address] Care Team Providers Care Scrap Burner Name Role Phone Shaikh ALONSO Baker Primary Care Provider [phone] Shaikh ALONSO Baker Primary Care Provider Antwan Perez MD Primary Care Provider [phone] Georgina Velasquez NP Unavailable Shaikh ALONSO Baker Unavailable [phone] Encounter Details Date Type Department Care Team (Late st Contact Info) Description 06/06/2023 Clinisync Result Encounter [facility] External Department Unsolicited [...] 11/19/2024 3:40 PM EDT Office Visit [facility] [address] [place] [address] Luci Rios NP [address] [place] [address] 02/23/2025 3:15 PM EDT Procedure Visit [facility] [place] [place] [address] Abisai Boateng, DPM [address] [place] [address] documented as of this encounter Procedures Procedure Name Priority Date/Time Associated Diagnosis Comments XR ANKLE RT MIN 3V 06/06/2023 7: 20 AM EST documented in this encounter Results * XR ANKLE RT MIN 3V (06/06/2023 7:20 AM EST) Anatomical Region Laterality Modality Other 06/06/2023 7:20 AM EST Narrative 06/06/2023 7:22 AM EST [address] [address] XRay Report Signed Patient: LAVERN ESCOBEDO MR#: [id number] : 1965 Acct:[id number] Age/Sex: 58 / M ADM Date: 06/05/23 Loc: RAD Attending Dr: Rey Perez D.P.M. Ordering Physician: Rey Perez D.P.M. Date of Service: 06/05/23 Procedure(s): XR ankle RT min 3V Accession Number(s): [id number] cc: Shaikh Heather Baker; Rey Perez D.P.M. [address] [address] Patient Name: LAVERN GARCIA MRN: [id number] date: 1965 Sex: M Assigned Patient Location: [facility] Current Patient Location: Accession/Order Number: [id number] Exam Date: 06/05/2023 15:01 Report Date: 06/06/2023 07:20 At the request of: REY PEREZ Procedure: XR ankle RT min 3V PROCEDURE: XR ankle RT min 3V COMPARISON: 05/23/2023 HISTORY: RIGHT ANKLE PAIN FINDINGS: BONES:Stable ankle fusion with talar implant utilizing a retrograde intramedullary nail and proximally and distally. Heterotopic bone graft material. Permanent pattern of the midfoot suggests osteopenia. No acute fracture, dislocation or mechanical failure SOFT TISSUES:Negative. No visible soft tissue swelling. EFFUSION:None visible. OTHER: Negative. XR/XR ankle RT min 3V IMPRESSION: Stable subtalar fusion with interval development of osteopenia Electronically authenticated by: GERA BLUM Date: 06/06/2023 07:20 Dictated By: Gera Blum M.D. Signed By: 06/06/23721 DD/ 9 TD/TT: Ground Water Technician: Procedure Note Radiology, Radiologist, MD - 07/31/2023 [place] [address] XRay Report Signed Patient: LAVERN ESCOBEDOMR#: [id number] : 1965Acct:[id number] Age/Sex: 58 / MADM Date: 06/05/23 Loc: RAD Attending Dr: Rey Perez D.P.M. Ordering Physician: Rey Perez D.P.M. Date of Service: 06/05/23 Procedure(s): XR ankle RT min 3V Accession Number(s): [id number] cc: Shaikh Heather Baker; Rey Perez D.P.M. The [place] [id number] Patient Name: LAVERN GARCAI MRN: [id number] date: 1965 Sex: M Assigned Patient Location: [facility] Current Patient Location: Accession/Order Number: [id number] Exam Date: 06/05/2023 15:01 Report Date: 06/06/2023 07:20 At the request of: REY PEREZ Procedure: XR ankle RT min 3V PROCEDURE: XR ankle RT min 3V COMPARISON: 05/23/2023 HISTORY: RIGHT ANKLE PAIN FINDINGS: BONES:Stable ankle fusion with talar implant utilizing a retrograde intramedullary nail and proximally and distally. Heterotopic bone graft material. Permanent pattern of the midfoot suggests osteopenia. No acute fracture, dislocation or mechanical failure SOFT TISSUES:Negative. No visible soft tissue swelling. EFFUSION:None visible. OTHER: Negative. XR/XR ankle RT min 3V IMPRESSION: Stable subtalar fusion with interval development of osteopenia Electronically authenticated by: GERA BLUM Date: 06/06/2023 07:20 Dictated By: Gera Blum M.D. Signed By:06/06/23721 DD/ 9 TD/TT: Ground Water Technician: us Generic External Data Provider [facility] Final Result documented in this encounter Visit Diagnoses Not on filedocumented in this encounter Care Teams Scrap Burner Relationship Specialty Start Date End Date Shaikh Baker MD PCP - General Internal Medicine 12/05/22 06/24/23 Shaikh Baker MD [address] [place] [address] PCP - General Internal Medicine 06/25/23 12/29/23 Antwan Perez MD [address] [place] [address] PCP - General Family Medicine 12/30/23 Shaikh Baker MD [address] [place] [address] PCP - [facility] [employer] 02/25/24 Georgina Velasquez NP [address] [place] [address] Nurse Practitioner Family Medicine 12/30/23 documented as of this encounter
--- OUTSIDE RECORDS SUMMARY | 2024-10-24 08:50 | XMS_ITS | Encounter Summary ---
Author Organization [facility] Address [address] [place] [address] Care Team Providers Care Plunket Nurse Name Role Phone Shaikh ALONSO Baker Primary Care Provider Shaikh ALONSO Baker Primary Care Provider Antwan Perez MD Primary Care Provider Georgina Velasquez NP Unavailable Shaikh ALONSO Baker Unavailable [phone] Encounter Details Date Type Department Care Team (Late st Contact Info) Description 06/05/2023 Orders Only [facility] [address] [place] [address] Bharath Perez Social History Tobacco Use Types Packs/Day Years [...] 11/19/2024 3:40 PM EDT Office Visit [facility] [address] [place] [address] Luci Rios TELEPHONE OPERATOR CHIEF [address] [place] [address] 02/23/2025 3:15 PM EDT Procedure Visit [facility] [address] [place] [address] Abisai Boateng DPM [address] [place], [place] [address] documented as of this encounter Procedures Procedure Name Priority Date/Time Associated Diagnosis Comments XR FOOT 3+ VIEWS RIGHT Routine 05/23/2023 9:45 AM EST documented in this encounter Results * XR foot 3+ views right (05/23/2023 9:45 AM EST) Anatomical Region Laterality Modality Lower Extremities, Foot Right Radiogra phic Imaging us Bharath Perez IMG XR PROCEDURES Final Resul t documented in this encounter Visit Diagnoses Not on filedocumented in this encounter Care Teams Plunket Nurse Relationship Specialty Start Date End Date Shaikh Baker MD PCP - General Internal Medicine 12/05/22 06/24/23 Shaikh Baker MD [address] [place] [address] PCP - General Internal Medicine 06/25/23 12/29/23 Antwan Perez MD [address] [place] [address] PCP - General Family Medicine 12/30/23 Shaikh Baker MD [address] [place] [address] PCP - [facility] 02/25/24 Georgina Velasquez NP [address] [place] [address] Nurse Practitioner Family Medicine 12/30/23 documented as of this encounter
--- OUTSIDE RECORDS SUMMARY | 2024-10-24 08:51 | XMS_ITS | Encounter Summary ---
Author Organization [facility] Address [address] [place] [address] Care Team Providers Care Business Project Manager Name Role Phone Antwan Perez MD Primary Care Provider [phone] Georgina Velasquez NP Unavailable Shaikh ALONSO Baker Unavailable [phone] Encounter Details Date Type Department Care Team (Late st Contact Info) Description 07/30/2024 Orders Only [facility] [address] [place] [address] Sav Andrews MD [address] [facility] [address] [place] [address] Social History Tobacco Use Types Packs/Day Years [...] Never 01/21/2024 How often do you attend [facility] or jain services? More than 4 times per year 01/21/2024 Do you belong to any clubs o r organizations such as rastafarian groups, unions, fraternal or athletic groups, or [...] Recorded Patient Health Questionnaire-2 Score 0 [facility] - [facility]ational Stress Questionnaire Answer Date [...] any time in the past 12 m [place], were you homeless or living in a m[facility]p (including now)? No 01/21/2024 Sex and Gender Information Value Date Recorded Sex Assigned at Not on file Legal Sex Male 11:39 PM EDT Gender Identity Not on file Sexual Orientation Not on file documented as of this encounter Plan of Treatment Upcoming Encounters Date Type Department Care Team (Late st Contact Info) Description 11/19/2024 3:40 PM EDT Office Visit [facility] [address] [place] [address] Luci Rios NP [address] [place] [address] 02/23/2025 3:15 PM EDT Procedure Visit [facility] [address] [facility] [place] [address] Abisai Boateng, DPM [address] [place] [address] documented as of this encounter Procedures Procedure Name Priority Date/Time Associated Diagnosis Comments COLONOSCOPY DIAGNOSTIC Routine 07/30/2024 9:25 AM EST documented in this encounter Results * COLONOSCOPY DIAGNOSTIC (07/30/2024 9:25 AM EST) Anatomical Region Laterality Modality Radiographic Juliann ging us Sav Andrews MD IMG XR PROCEDURES Final Result documented in this encounter Visit Diagnoses Not on filedocumented in this encounter Care Teams Business Project Manager Relationship Specialty Start Date End Date Antwan Perez MD [address] [place] [address] PCP - General Family Medicine 12/30/23 Shaikh Baker MD [address] [place] [address] PCP - [facility] 02/25/24 Georgina Velasquez NP [address] [place] [address] Nurse Practitioner Family Medicine 12/30/23 documented as of this encounter
--- OUTSIDE RECORDS SUMMARY | 2024-10-24 08:51 | XMS_ITS | Encounter Summary ---
Author Organization [facility] Address [address] [place] [address] Care Team Providers Care Senior Controls Analyst Name Role Phone Shaikh ALONSO Baker Primary Care Provider Antwan Perez MD Primary Care Provider [phone] Georgina Velasquez NP Unavailable Shaikh ALONSO Baker Unavailable [phone] Encounter Details Date Type Department Care Team (Late st Contact Info) Description 07/11/2023 Orders Only [facility] [address] [place] [address] Bharath Perez Social History Tobacco Use Types [...] 11/19/2024 3:40 PM EDT Office Visit [facility] [address] [place] [address] Luci Rios HIGH SCHOOL FOREIGN LANGUAGE TEACHER [address] [place] [address] 02/23/2025 3:15 PM EDT Procedure Visit [facility] [address] [place] [address] Abisai Boateng, DPM [address] [place], [place] [address] documented as of this encounter Procedures Procedure Name Priority Date/Time Associated Diagnosis Comments XR ANKLE 3+ VIEWS RIGHT Routine 06/26/2023 12:05 PM EST documented in this encounter Results * XR ankle 3+ views right (06/26/2023 12:05 PM EST) Anatomical Region Laterality Modality Lower Extremities, Ankle Right Radiogr aphic Imaging Bharath Perez IMG XR PROCEDURES Final Resul t documented in this encounter Visit Diagnoses Not on filedocumented in this encounter Care Teams Senior Controls Analyst Relationship Specialty Start Date End Date Shaikh Baker MD [address] [place] [address] PCP - General Internal Medicine 06/25/23 12/29/23 Antwan Perez MD [address] [place] [address] PCP - General Family Medicine 12/30/23 Shaikh Baker MD [address] [place] [address] PCP - [facility] 02/25/24 Georgina Velasquez NP [address] [place] [address] Nurse Practitioner Family Medicine 12/30/23 documented as of this encounter
--- OUTSIDE RECORDS SUMMARY | 2024-10-24 08:51 | XMS_ITS | Encounter Summary ---
Author Organization [facility] Address [address] [place] [address] Care Team Providers Care Biomathematician Name Role Phone Shaikh ALONSO Baker Primary Care Provider Antwan Perez MD Primary Care Provider [phone] Georgina Velasquez NP Unavailable [phone] Shaikh ALONSO Baker Unavailable [phone] Encounter Details Date Type Department Care Team (Late st Contact Info) Description 07/29/2023 Orders Only [facility] [address] [place] [address] Bharath Perez Social History Tobacco [...] 11/19/2024 3:40 PM EDT Office Visit [facility] [address] [place] [address] Luci Rios [employer]UFACTURING SUPERVISOR [address] [place] [address] 02/23/2025 3:15 PM EDT Procedure Visit [facility] [address] [place] [address] Abisai Boateng, DPEv [address] [place], [place] [address] documented as of this encounter Procedures Procedure Name Priority Date/Time Associated Diagnosis Comments XR ANKLE 3+ VIEWS RIGHT Routine 07/16/2023 1:41 PM EST XR FOOT 3+ VIEWS RIGHT Routine 07/16/2023 1:40 PM EST documented in this encounter Results * XR ankle 3+ views right (07/16/2023 1:41 PM EST) Anatomical Region Laterality Modality Lower Extremities, Ankle Right Radiogr aphic Imaging Bharath Perez IM XR PROCEDURES Final Resul t * XR foot 3+ views right (07/16/2023 1:40 PM EST) Anatomical Region Laterality Modality Lower Extremities, Foot Right Radiogra phic Imaging [place]harath Perez [facility] [place]ED[place] Final Resul t documented in this encounter Visit Diagnoses Not on filedocumented in this encounter Care Teams Biomathematician Relationship Specialty Start Date End Date Shaikh Baker MD [address] [place] [address] PCP - General Internal Medicine 06/25/23 12/29/23 Antwan Perez MD [address] [place] [address] PCP - General Family Medicine 12/30/23 Shaikh Baker MD [address] [place] [address] PCP - [facility] 02/25/24 Georgina Velasquez NP [address] [place] [address] Nurse Practitioner Family Medicine 12/30/23 documented as of this encounter
--- OUTSIDE RECORDS SUMMARY | 2024-10-24 08:51 | XMS_ITS | Encounter Summary ---
Author Organization [facility] Address [address] [place] [address] Care Team Providers Care Hole Digger Name Role Phone Shaikh ALONSO Baker Primary Care Provider Antwan Perez MD Primary Care Provider Georgina Velasquez NP Unavailable Shaikh ALONSO Baker Unavailable [phone] Encounter Details Date Type Department Care Team (Late st Contact Info) Description 07/17/2023 Clinisync Result Encounter [facility] External Department Unsolicited [...] Visit [facility] [address] [place] [address] Luci Rios NP [address] [place] [address] 02/23/2025 3:15 PM EDT Procedure Visit [facility] [address] [place] [address] Abisai Boateng, DPEv [address] [address] documented as of this encounter Procedures Procedure Name Priority Date/Time Associated Diagnosis Comments XR FOOT RT MIN 3V 07/17/2023 6:5 2 AM EST documented in this encounter Results * XR FOOT RT MIN 3V (07/17/2023 6:52 AM EST) Anatomical Region Laterality Modality Other 07/17/2023 6:52 AM EST Narrative 07/17/2023 6:54 [place] [address] XRay Report Signed Patient: LAVERN ESCOBEDO MR#: [id number] : 1965 Acct:[id number] Age/Sex: 58 / M ADM Date: 07/16/23 Loc: RAD Attending Dr: Rey Perez D.P.M. Ordering Physician: Rey Perez D.P.M. Date of Service: 07/16/23 Procedure(s): XR foot RT min 3V Accession Number(s): [id number] cc: Shaikh Heather Baker; Rey Perez D.P.M. [address] [address] Patient Name: LAVERN GARCIA MRN: [id number] date: 1965 Sex: M Assigned Patient Location: [facility] Current Patient Location: Accession/Order Number: [id number] Exam Date: 07/16/2023 13:10 Report Date: 07/17/2023 06:52 At the request of: REY PEREZ Procedure: XR foot RT min 3V PROCEDURE: XR ankle RT min 3V, XR foot RT min 3V HISTORY: RIGHT ANKLE PAIN COMPARISON: XR ankle right 06/26/2023 FINDINGS: BONES:Prior ankle and hindfoot fusion via intramedullary lot and locking screws. Prosthetic spacer replacement of the talus. No appreciable hardware fracture or loosening. No bone fracture dislocation. Mild-moderate degenerative changes of the midfoot. SOFT TISSUES:No visible soft tissue swelling. EFFUSION:None visible. OTHER: Negative. XR/XR foot RT min 3V IMPRESSION: 1. Stable surgical changes without evidence of hardware failure or change in alignment. Electronically authenticated by: ROBERT FITZGERALD Date: 07/17/2023 06:52 Dictated By: Robert Fitzgerald M.D. Signed By: 07/17/2354 DD/ TD/TT: Journeyman Plumber: Procedure Note Radiology, Radiologist, MD - 07/31/2023 [place] [address] XRay Report Signed Patient: LAVERN ESCOBEDOMR#: [id number] : 1965Acct:[id number] Age/Sex: 58 / MADM Date: 07/16/23 Loc: RAD Attending Dr: Rey Perez D.P.M. Ordering Physician: Rey Perez D.P.M. Date of Service: 07/16/23 Procedure(s): XR foot RT min 3V Accession Number(s): [id number] cc: Shaikh Heather Baker; Rey Perez D.P.M. The [place] [id number] Patient Name: LAVERN GARCIA MRN: [id number] date: 1965 Sex: M Assigned Patient Location: [facility] Current Patient Location: Accession/Order Number: [id number] Exam Date: 07/16/2023 13:10 Report Date: 07/17/2023 06:52 At the request of: REY PEREZ Procedure: XR foot RT min 3V PROCEDURE: XR ankle RT min 3V, XR foot RT min 3V HISTORY: RIGHT ANKLE PAIN COMPARISON: XR ankle right 06/26/2023 FINDINGS: BONES:Prior ankle and hindfoot fusion via intramedullary lot and locking screws. Prosthetic spacer replacement of the talus. No appreciablehardware fracture or loosening. No bone fracture dislocation. Mild-moderate degenerative changes of the midfoot. SOFT TISSUES:No visible soft tissue swelling. EFFUSION:None visible. OTHER: Negative. XR/XR foot RT min 3V IMPRESSION: 1. Stable surgical changes without evidence of hardware failure or changein alignment. Electronically authenticated by: ROBERT FITZGERALD Date: 07/17/2023 06:52 Dictated By: Robert Fitzgerald M.D. Signed By:07/17/2354 DD/ TD/TT: Journeyman Plumber: us Generic External Data Provider [facility] Final Result documented in this encounter Visit Diagnoses Not on filedocumented in this encounter Care Teams Hole Digger Relationship Specialty Start Date End Date Shaikh Baker MD [address] [place] [address] PCP - General Internal Medicine 06/25/23 12/29/23 Antwan Perez MD [address] [place] [address] PCP - General Family Medicine 12/30/23 Shaikh Baker MD [address] [place] [address] PCP - [facility] 02/25/24 Georgina Velasquez NP [address] [place] [address] Nurse Practitioner Family Medicine 12/30/23 documented as of this encounter
--- OUTSIDE RECORDS SUMMARY | 2024-10-24 08:51 | XMS_ITS | Encounter Summary ---
Author Organization [facility] Address [address] [place] [address] Care Team Providers Care Filtration Operator Name Role Phone Shaikh ALONSO Baker Primary Care Provider Shaikh ALONSO Baker Primary Care Provider Antwan Perez MD Primary Care Provider [phone] Georgina Velasquez NP Unavailable [phone] Shaikh ALONSO Baker Unavailable [phone] Encounter Details Date Type Department Care Team (Late st Contact Info) Description 05/02/2023 Clinisync Result Encounter [facility] External Department Unsolicited [...] Visit [facility] [address] [place] [address] Luci Rios NP [address] [place] [address] 02/23/2025 3:15 PM EDT Procedure Visit [facility] [place] [place] [address] Abisai Boateng, DPM [address] [facility] [place], [place] [address] documented as of this encounter Procedures Procedure Name Priority Date/Time Associated Diagnosis Comments XR FOOT RT MIN 3V 05/02/2023 2:3 6 PM EST documented in this encounter Results * XR FOOT RT MIN 3V (05/02/2023 2:36 PM EST) Anatomical Region Laterality Modality Other 05/02/2023 2:36 PM EST Narrative 05/02/2023 2:38 PM EST [address] [address] XRay Report Signed Patient: LAVERN ESCOBEDO MR#: [id number] : 1965 Acct:[id number] Age/Sex: 58 / M ADM Date: 05/02/23 Loc: RAD Attending Dr: Rey Perez D.P.M. Ordering Physician: Rey Perez D.P.M. Date of Service: 05/02/23 Procedure(s): XR foot RT min 3V Accession Number(s): [id number] cc: Shaikh Heather Baker; Rey Perez D.P.M. The [address] [id number] Patient Name: LAVERN GARCIA MRN: [id number] date: 1965 Sex: M Assigned Patient Location: RAD Current Patient Location: RAD Accession/Order Number: [id number] Exam Date: 05/02/2023 13:40 Report Date: 05/02/2023 14:36 At the request of: REY PEREZ Procedure: XR foot RT min 3V PROCEDURE: XR foot RT min 3V, XR ankle RT min 3V COMPARISON: 04/11/2023 HISTORY: RIGT FOOT PAIN FINDINGS: BONES:Again demonstrated is ankle fusion utilizing a retrograde intramedullary nail and proximally and distally. Remote talus resection with talus spacer. Heterotopic ossification likely representing bone graft material. Degenerative changes of the midfoot with underlying osteopenia. No acute fracture, dislocation or mechanical failure SOFT TISSUES:Negative. No visible soft tissue swelling. EFFUSION:None visible. OTHER: Negative. XR/XR foot RT min 3V IMPRESSION: Stable ankle fusion Electronically authenticated by: GERA BLUM Date: 05/02/2023 14:36 Dictated By: Gera Blum M.D. Signed By: 05/02/23 1438 DD/ 1436 TD/TT: Director Graphics: Procedure Note Radiology, Radiologist, MD - 05/02/2023 [place] [address] XRay Report Signed Patient: LAVERN ESCOBEDOMR#: [id number] : 1965Acct:[id number] Age/Sex: 58 / MADM Date: 05/02/23 Loc: RAD Attending Dr: Rey Perez D.P.M. Ordering Physician: Rey Perez D.P.M. Date of Service: 05/02/23 Procedure(s): XR foot RT min 3V Accession Number(s): [id number] cc: Shaikh Heather Baker; Rey Perez D.P.M. The [place] [address] Patient Name: LAVERN GARCIA MRN: [id number] date: 1965 Sex: M Assigned Patient Location: [facility] Current Patient Location: [facility] Accession/Order Number: [id number] Exam Date: 05/02/2023 13:40 Report Date: 05/02/2023 14:36 At the request of: REY PEREZ Procedure: XR foot RT min 3V PROCEDURE: XR foot RT min 3V, XR ankle RT min 3V COMPARISON: 04/11/2023 HISTORY: RIGT FOOT PAIN FINDINGS: BONES:Again demonstrated is ankle fusion utilizing a retrogradeintramedullary nail and proximally and distally. Remote talus resection with talusspacer. Heterotopic ossification likely representing bone graft material.Degenerative changes of the midfoot with underlying osteopenia. No acute fracture, dislocation or mechanical failure SOFT TISSUES:Negative. No visible soft tissue swelling. EFFUSION:None visible. OTHER: Negative. XR/XR foot RT min 3V IMPRESSION: Stable ankle fusion Electronically authenticated by: GERA BLUM Date: 05/02/2023 14:36 Dictated By: Gera Blum M.D. Signed By:05/02/23 1438 DD/ 35 TD/TT: Director Graphics: us Generic External Data Provider [facility] Final Result documented in this encounter Visit Diagnoses Not on filedocumented in this encounter Care Teams Filtration Operator Relationship Specialty Start Date End Date Shaikh Baker MD PCP - General Internal Medicine 12/05/22 06/24/23 Shaikh Baker MD [address] [place] [address] PCP - General Internal Medicine 06/25/23 12/29/23 Antwan Perez MD [address] [place] [address] PCP - General Family Medicine 12/30/23 Shaikh Baker MD [address] [place] [address] [facility] - [facility] 02/25/24 Georgina Velasquez NP [address] [place] [address] Nurse Practitioner Family Medicine 12/30/23 documented as of this encounter
--- OUTSIDE RECORDS SUMMARY | 2024-10-24 08:51 | XMS_ITS | Encounter Summary ---
Author Organization [facility] Address [address] [place] [address] Care Team Providers Care Derrick Worker Name Role Phone Shaikh ALONSO Baker Primary Care Provider [phone] Shaikh ALONSO Baker Primary Care Provider Antwan Perez MD Primary Care Provider Georgina Velasquez NP Unavailable [phone] Shaikh ALONSO Baker Unavailable [phone] Encounter Details Date Type Department Care Team (Late st Contact Info) Description 05/23/2023 Orders Only [facility] [address] [place] [address] Bharath Perez Social History Tobacco Use Types [...] 11/19/2024 3:40 PM EDT Office Visit [facility] [address] [place] [address] Luci Rios JIGGER CROWN POUNCING MACHINE OPERATOR [address] [place] [address] 02/23/2025 3:15 PM EDT Procedure Visit [facility] [address] [place] [address] Abisai Boateng DPM [address] [place], [place] [address] documented as of this encounter Procedures Procedure Name Priority Date/Time Associated Diagnosis Comments XR FOOT 3+ VIEWS RIGHT Routine 05/02/2023 11:02 AM EST documented in this encounter Results * XR foot 3+ views right (05/02/2023 11:02 AM EST) Anatomical Region Laterality Modality Lower Extremities, Foot Right Radiogra phic Imaging us Bharath Perez IM XR PROCEDURES Final Resul t documented in this encounter Visit Diagnoses Not on filedocumented in this encounter Care Teams Derrick Worker Relationship Specialty Start Date End Date Shaikh Baker MD PCP - General Internal Medicine 12/05/22 06/24/23 Shaikh Baker MD [address] [place] [address] PCP - General Internal Medicine 06/25/23 12/29/23 Antwan Perez MD [address] [place] [address] PCP - General Family Medicine 12/30/23 Shaikh Baker MD [address] [place] [address] PCP - [facility] 02/25/24 Georgina Velasquez NP [address] [place] [address] Nurse Practitioner Family Medicine 12/30/23 documented as of this encounter
--- OUTSIDE RECORDS SUMMARY | 2024-10-24 08:51 | XMS_ITS | Clinical Summary ---
Author Organization [facility] Healthcare Address [address] [place] [address] Care Team Providers Care Superior Court Judge Name Role Phone Antwan Perez MD Primary Care Provider [phone] Georgina Velasquez REGULATORY AGENCY DIRECTOR Unavailable [phone] Allergies No known active allergies Medications aspirin 81 MG chewable tabletIndications: Hyperlipidemia, unspecified hyperlipidemia type (CMS/HCC) Chew 1 tablet (81 mg) in the morning. 30 tablet 2 01/22/20 24 Active Continuous Glucose Paper Gluing Operator (FreeStyle Era 2 [place]) deviceIndications: Type 2 diabetes mellitus without complication, with long-term current use of insulin 1 each in the morning and 1 each at noon and 1 each in the evening and 1 each before bedtime. 1 each 03/19/20 24 025 Active insulin glargine-yfgn (Lata, yfgn,) 100 UNIT/ML injectionIndicatio ns:Type 2 diabetes mellitus with diabetic polyneuropathy, with long-term current use of insulin (CMS/HCC) Inject 20 Units under the skin at bedtime 04/27/20 24 025 Active insulin pen needle (B-D ULTRAFINE III SHORT PEN) 31G X 8 mm miscIndications:Ty pe 2 diabetes mellitus with diabetic polyneuropathy, with long-term current use of insulin (CMS/HCC) Daily 100 each 12 04/27/20 24 025 Active Continuous Glucose Sensor (FreeStyle Era 3 Plus Sensor) misc USE 1 SENSOR EVERY 15 DAYS TO MONITOR BLOOD SUGAR. 07/23/19 25 Active dapagliflozin (Farxiga) 5 MGIndications:Type 2 diabetes mellitus without complications Take 1 tablet (5 mg) by mouth Daily 90 tablet 07/30/19 25 025 Active albuterol HFA 90 mcg/act inhalerIndications :Severe persistent asthma without complication (CMS/HCC) Inhale 2 puffs every 4 (four) hours if needed for shortness of breath 18 g 07/30/19 25 025 Active atorvastatin (Lipitor) 40 MG tabletIndications: Hyperlipidemia, unspecified hyperlipidemia type (CMS/HCC) Take 1 tablet (40 mg) by mouth Daily 90 tablet 1 08/19/19 025 Active carvedilol (Coreg) 25 MG tabletIndications: Resistant hypertension (CMS/HCC) Take 1 tablet (25 mg) by mouth in the morning and 1 tablet (25 mg) in the evening. Take with meals. 180 tablet 1 08/19/19 025 Active amLODIPine (Norvasc) 10 MG tabletIndications: Primary hypertension (CMS/HCC) Take 1 tablet (10 mg) by mouth Daily 90 tablet 1 08/19/19 25 025 Active glipiZIDE (Glucotrol) 5 MG tabletIndications: Type 2 diabetes mellitus with diabetic polyneuropathy, with long-term current use of insulin (CMS/HCC) Take 1 tablet (5 mg) by mouth in the morning and 1 tablet (5 mg) in the evening. Take before meals. 180 tablet 1 08/19/19 025 Active losartan-hydroCHLO ROthiazide (Hyzaar) 100-25 MG tabletIndications: Primary hypertension (CMS/HCC) Take 1 tablet by mouth Daily 90 tablet 1 08/19/19 25 025 Active metFORMIN (Glucophage) 850 MG tabletIndications: Hyperlipidemia, unspecified hyperlipidemia type (CMS/HCC) Take 1 tablet (850 mg) by mouth in the morning and 1 tablet (850 mg) in the evening. Take with meals. 180 tablet 1 08/19/19 25 025 Active omeprazole (PriLOSEC) [address] capsuleIndications :Gastroesophageal reflux disease without esophagitis Take 1 capsule (40 mg) by mouth in the morning. Take before meals. 90 capsule 1 08/19/19 25 025 Active spironolactone (Aldactone) 50 MG tabletIndications: Resistant hypertension (CMS/HCC) Take 2 tablets (100 mg) by mouth Daily 180 tablet 08/20/19 25 025 Active Fluticasone-Umecli din-Vilant (Trelegy Ellipta) 200-62.5-25 MCG/ACT aerosol powderIndications: Severe persistent asthma without complication (CMS/HCC) Inhale 1 puff Daily INHALE 1 PUFF ONCE DAILY, rinse mouth after use 1 each 5 10/09/19 25 025 Active Fluticasone-Umecli din-Vilant (Trelegy Ellipta) 200-62.5-25 MCG/ACT aerosol powderIndications: Severe persistent asthma without complication (CMS/HCC) Inhale 1 puff Daily INHALE 1 PUFF ONCE DAILY, rinse mouth after use 1 each 5 07/30/19 25 025 Discontin ued(Reord er) Active Problems Problem Noted Date Diagnosed Date Elevated serum creatinine 08/19/2024 Assessment & Plan (10/08/2024 4:18 PM EDT): Recheck labs, still has not heard anything about renal US at [facility] We will refax Edema of both lower extremities 08/18/2024 Assessment & Plan (10/08/2024 7:08 AM EDT): Current meds: aldactone, hydrochlorothiazide in losartan Assessment & Plan (08/18/2024 4:18 PM EDT): improved Type 2 diabetes mellitus without complications 0 07/29/2024 Assessment & Plan (10/08/2024 4:18 PM EDT): Check blood sugars daily, notify if <70 [...] no contraindications for that A1c 8.3% 07/18/24 CGM looking great!!! Keep up the great work Assessment & Plan (08/18/2024 7:03 AM EDT): Check blood sugars daily, notify if <70 [...] no contraindications for that A1c 8.3% 07/18/24 Assessment & Plan (07/29/2024 7:24 PM EST): Check blood sugars daily, notify if <70 [...] no contraindications for that A1c 8.3% 07/18/24 residential (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 07/29/2024 Assessment & Plan (07/29/2024 7:44 AM EST): Continue with insulin Morbid (severe) obesity due to excess calories 0 07/29/2024 Assessment & Plan (10/08/2024 7:08 AM EDT): Discussed with patient their BMI (actual, verses recommended). We have also discussed lifestyle modifications: attempts to perform physical activity as chronic conditions allow, also to monitor dietary intake: increasing protein/fruits/veggies and lowering carb intake (unless contraindicated). Limit sodas, juices, and sugary drinks. Assessment & Plan (08/18/2024 7:02 AM EDT): Discussed with patient their BMI (actual, verses recommended). We have also discussed lifestyle modifications: attempts to perform physical activity as chronic conditions allow, also to monitor dietary intake: increasing protein/fruits/veggies and lowering carb intake (unless contraindicated). Limit sodas, juices, and sugary drinks. Assessment & Plan (07/29/2024 7:43 AM EST): Discussed with patient their BMI (actual, verses recommended). We have also discussed lifestyle modifications: attempts to perform physical activity as chronic conditions allow, also to monitor dietary intake: increasing protein/fruits/veggies and lowering carb intake (unless contraindicated). Limit sodas, juices, and sugary drinks. Body mass index (BMI) 38.0-38.9, adult Idiopathic aseptic necrosis of right foot 2024 Assessment & Plan (07/29/2024 7:42 AM EST): Has seen podiatry in the past Primary hypertension 07/29/2024 Assessment & Plan (10/08/2024 7:08 AM EDT): Please check blood pressure daily and record DASH diet Limit caffeine Take medication as directed Contact office if chest pain, pressure, dizziness, shortness of breath, swelling legs Recommend slow position changes Current meds: amlodipine, carvedilol, losartan/hydrochlorothiazide, aldactone Assessment & Plan (08/18/2024 4:18 PM EDT): Please check blood pressure daily and record DASH diet Limit caffeine Take medication as directed Contact office if chest pain, pressure, dizziness, shortness of breath, swelling legs Recommend slow position changes Current meds: amlodipine, carvedilol, losartan/hydrochlorothiazide, aldactone Much improved, fu in 4-6 weeks Assessment & Plan (07/29/2024 7:23 PM EST): Please check blood pressure daily and record DASH diet Limit caffeine Take medication as directed Contact office if chest pain, pressure, dizziness, shortness of breath, swelling legs Recommend slow position changes Current meds: amlodipine, carvedilol, losartan/hydrochlorothiazide, aldactone Will increase dose on aldactone to 100mg daily Recheck blood pressure in 2 weeks-currently no symptoms Hyperlipidemia 10/24/2023 Assessment & Plan (07/29/2024 7:44 AM EST): On statin therapy Check labs yearly, and prn dose changes Assessment & Plan (04/27/2024 3:24 PM EST): Atorvastatin 40mg Denies myalgias Continue current regimen. Assessment & Plan (01/22/2024 4:27 PM EDT): Atorvastatin 40mg Denies myalgias Continue current regimen. Assessment & Plan (10/24/2023 3:17 PM EDT): On lipitor 40 mg. Check lipid panel Grade II internal hemorrhoids 08/07/2023 Type 2 diabetes mellitus wit h diabetic polyneuropathy, with long-term current use of insulin 08/07/2023 Assessment & Plan (10/08/2024 7:07 AM EDT): No current treatment Recommend proper fitting toes, freq foot inspections, good glycemic control Assessment & Plan (07/29/2024 7:41 AM EST): No current treatment Recommend proper fitting toes, freq foot inspections, good glycemic control Assessment & Plan (04/27/2024 3:30 PM EST): Glipizide 5mg Metformin 850mg Januvia 100mg Semglee [...] began drinking more water and protein shakes. Assessment & Plan (01/22/2024 4:28 PM EDT): Glipizide 5mg Metformin 850mg Januvia 100mg Most [...] noted. DM eye exam- 3 months ago Assessment & Plan (10/24/2023 3:16 PM EDT): A1C 11.2 08/17, FSBS are now better with adjustment in medications - 150-200 He is currently on Metformin, Januvia, glipizide 5 q12. He is also on glargine 25 units. Patient encouraged to eat well, lose weight, increase physical activity Check labs before next appt Assessment & Plan (09/16/2023 4:00 PM EDT): Poorly controlled - improved a little after increasing levemir to 25 units. A1C is 11.2 He is currently on Metformin, Januvia and Levemir. Add glipizide 5 q12. Patient instructed to bring home glucose log next appt and will review his blood glucose and adjust meds as needed Assessment & Plan (08/07/2023 4:01 PM EDT): Poorly controlled - reports his blood glucose have been poorly controlled. He reports his FSBS have been persistently above 250 He is currently on Metformin, Januvia and Levemir. I will increase his insulin to 25 units from 15 units daily Will order labs. Follow up in one month Patient instructed to bring home glucose log next appt. Severe persistent asthma without complication Assessment & Plan (07/29/2024 7:32 PM EST): Current meds: trelegy, albuterol #2 samples of trelegy: 100's, lot MV9W, exp 06/21 In the past has used trelegy 200, symbicort 160, and flovent Finds benefit with trelegy 100's Has seen pulmonology in the past Assessment & Plan (01/22/2024 4:29 PM EDT): Trelegy And Albuterol PRN. Feels symptoms are well managed. Denies any exacerbations, cough, shortness of breath. Gastro-esophageal reflux disease without esophag itis 08/07/2023 Assessment & Plan (07/29/2024 7:42 AM EST): Recommendations: freq small meals, nothing to eat or drink at least 2 hours prior to bed, limit caffeine, alcohol, as well as spicy foods Meds to limit or avoid if possible: NSAIDS Elevate HOB if possible Med: omeprazole Resolved Problems Problem Noted Date Diagnosed Date Resolved Date Resistant hypertension 08/07/202307/29 Assessment & Plan (04/27/2024 3:25 PM EST): Currently taking Amlodipine 10mg Carvedilol 25mg Losartan-hydrochlorothiazide 100-25mg Spironlactone 50mg Checks BP at home; Averages are Denies orthostatic changes, dizziness, cough, shortness of breath, swelling in extremities. Continue current regimen Assessment & Plan (01/22/2024 4:27 PM EDT): Currently taking Amlodipine 10mg Carvedilol 25mg Losartan-hydrochlorothiazide 100-25mg Spironlactone 50mg Checks BP at home; Averages are Denies orthostatic changes, dizziness, cough, shortness of breath, swelling in extremities. Continue current regimen. Assessment & Plan (10/24/2023 3:17 PM EDT): Resistent HTN. He is also on coreg, losartan-hydrochlorothiazide, amlodipine. Last appt, started on aldactone - follow up BMP - normal cr, potassium Patient counseled and educated on adverse effects, drug interactions and to reach out to office/pharmacy if questions or concerns related to new medications. C/w current regimen Labs before next appt Assessment & Plan (09/16/2023 4:01 PM EDT): Resistent HTN. Last appointment -he was started on amlodipine. Tolerating it, no adverse effects He is also on coreg, losartan-hydrochlorothiazide Added aldactone Check BMP in 2 weeks Patient counseled and educated on adverse effects, drug interactions and to reach out to office/pharmacy if questions or concerns related to new medications. Follow up in one month to review /assess response to changes in his regimen. Assessment & Plan (08/07/2023 4:01 PM EDT): Poorly controlled, above goal. On losartan-hydrochlorothiazide and coreg Asymptomatic. Patient will be started on norvasc 10 mg. Patient asked to maintain home BP log and bring his home BP log next appt. Other hyperlipidemia 08/07/2023 025 Assessment & Plan (08/07/2023 4:02 PM EDT): On lipitor, check lipid panel Encounters Date Type Department Care Team Description 10/08/2024 3:40 PM EDT Office Visit [facility] [address] [place] [id number] Luci Rios NP Type 2 diabetes mellitus without complication, with long-term current use of insulin (Primary Dx); Type 2 diabetes mellitus with diabetic polyneuropathy, with long-term current use of insulin (CMS/HCC); Primary hypertension (CMS/HCC); Edema of both lower extremities; residential (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 ([facility]); Morbid (severe) obesity due to excess calories ([facility]); Severe persistent asthma without complication ([facility]); Elevated serum creatinine 10/08/2024 Bamboo flowsheet [facility] [address] [place] [address] AicLuci tobias, REGULATORY AGENCY DIRECTOR 09/17/2024 4:00 PM EDT Office Visit [facility] [address] [place] [address] Aicmicheline Luci, REGULATORY AGENCY DIRECTOR Elevated serum creatinine (Primary Dx); Primary hypertension ([facility]); Type 2 diabetes mellitus without complication, with long-term current use of insulin 09/17/2024 Bamboo flowsheet [facility] [address] [place] [address] Vivian Riosa, REGULATORY AGENCY DIRECTOR 09/09/2024 Clinisync Result Encounter [facility] External Department Unsolicited Aicmicheline Luci, REGULATORY AGENCY DIRECTOR 08/31/2024 Orders Only [facility] [address] [place] [address] Vivian Riosa, REGULATORY AGENCY DIRECTOR Elevated serum creatinine (Primary Dx) 08/29/2024 Clinisync Result Encounter [facility] External Department Unsolicited Vivian Riosa, REGULATORY AGENCY DIRECTOR 08/24/2024 3:30 PM EDT Procedure Visit [facility] [address] [place] [address] Abisai Boateng DPM Onychodystrophy (Primary Dx); Onychomycosis; Type 2 diabetes mellitus with diabetic polyneuropathy, with long-term current use of insulin ([facility]) 08/24/2024 Bamboo flowsheet [facility] [address] [place] [address] Abisai Boateng DPM 08/24/2024 Travel 08/20/2024 Travel 08/19/2024 Orders Only [facility] [address] [place] [address] Luci Rios NP Elevated serum creatinine (Primary Dx) 08/18/2024 3:00 PM EDT Office Visit [facility] [address] [place] [address] Luci Rios NP Primary hypertension (CMS/HCC) (Primary Dx); Morbid (severe) obesity due to excess calories (CMS/HCC); Type 2 diabetes mellitus without complication, with long-term current use of insulin (CMS/HCC); Hyperlipidemia, unspecified hyperlipidemia type (CMS/HCC); Resistant hypertension (CMS/HCC); Type 2 diabetes mellitus with diabetic polyneuropathy, with long-term current use of insulin (CMS/HCC); Gastroesophageal reflux disease without esophagitis; Edema of both lower extremities 08/18/2024 Clinisync Result Encounter [facility] External Department Unsolicited Luci Rios NP 08/18/2024 Bamboo flowsheet [facility] [address] [place] [address] Luci Rios NP 07/30/2024 Orders Only [facility] [address] [place] [address] Sav Andrews MD 07/29/2024 3:20 PM EST Office Visit [facility] [address] [place] [address] Luci Rios NP Primary hypertension (CMS/HCC) (Primary Dx); Type 2 diabetes mellitus without complications (CMS/HCC) ; residential (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 (CMS/HCC); Morbid (severe) obesity due to excess calories (CMS/HCC); Gastro-esophageal reflux disease without esophagitis; Body mass index (BMI) 38.0-38.9, adult; 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) ; Type 2 diabetes mellitus with diabetic polyneuropathy, with long-term current use of insulin (CMS/HCC); Severe persistent asthma without complication (CMS/HCC) ; Mixed hyperlipidemia (CMS/HCC) 07/29/2024 Bamboo flowsheet [facility] [address] [place] [address] Luci Rios NP from Last 3 Months Immunizations Immunization Administration Dates Next Due Influenza, injectable, MDCK, preservative free, quadrivalent 05/10/2021,02/17/2020 Influenza, injectable, quadrivalent, preservativ e free 03/12/2017 Influenza, seasonal, injectable 03/13/2022,03/09 Influenza, seasonal, injectable, preservative fr ee 05/28/2024 MMR 05/28/2024 Pneumococcal conjugate vacci ne, 21 valent (PCV21), polysaccharide [id number] conjugate, preservative free 05/28/2024 Tdap 03/23/2022 Zoster, Recombinant 03/23/2022 Family History Medical History Relation Name Comments Stroke Father Diabetes Sister Relation Name Status Comments Father Sister Social History Tobacco Use Types Packs/Day Years Used Date Smoking Tobacco: Former Cigarettes Passive Smoke Exposure: Past Smokeless Tobacco: Never Tobacco Cessation:Counseling Given: Not Answered Alcohol Use Standard Drinks/Week Comments Never 0 [...] 01/21/2024 How often do you attend chur or sikh services? More than 4 times per year 01/21/2024 Do you belong to any clubs o r organizations such as yarsanism groups, unions, fraternal or athletic groups, or [...] Recorded Patient Health Questionnaire-2 Score 0 01/22/2024 [facility] - Occupational Stress Questionnaire Answer Date [...] [facility] the [facility] were you homeless or living in a retirement (including now)? No 01/21/2024 Sex and Gender Information Value Date Recorded Sex Assigned at Not on file Legal Sex Male 11:39 PM EDT Gender Identity Not on file Sexual Orientation Not on file Last Filed Vital Signs Vital Sign Reading Time Taken Comments Blood Pressure 130/80 10/08/2024 3:51 PM EDT Pulse 67 10/08/2024 3:51 PM EDT Temperature 37.1 C (98.7 F) 10/08/2024 3:51 PM EDT Respiratory Rate 20 10/08/2024 3:51 PM EDT Oxygen Saturation 95% 10/08/2024 3:51 PM EDT Inhaled Oxygen Concentration - - Weight 109 kg (240 lb 6.4 oz) 10/08/2024 3:51 PM EDT Height 167.6 cm (5' 6 ) 08/24/2024 3:27 PM EDT Body Mass Index 38.8 08/24/2024 3:27 PM EDT Plan of Treatment Upcoming Encounters Date Type Department Care Team (Late st Contact Info) Description 11/19/2024 3:40 PM EDT Office Visit [facility] [address] [place] [address] Luci Rios NP [address] [place] [address] 02/23/2025 3:15 PM EDT Procedure Visit [facility] [address] [place] [phone] Abisai Boateng, DPM [address] [place], [place] [id number] Health Maintenance Due Date Last Done Comments CT Colonography 1966 FIT-DNA 1966 FIT 1966 FOBT 1966 Sigmoidoscopy 1966 Diabetes: Retinopathy Screening 08/29/2024 Diabetes: Hemoglobin A1C 10/15/2024 025, 08/08/2023, 01/25/2018 Diabetes: Urine Protein Screening 07/18/2025 025, 08/08/2023 Colonoscopy 07/30/2034 07/30/2024, 090 06/2021, 12/22/2021 Colorectal Cancer Screening 07/30/2034 Influenza Vaccine Completed 05/28/2024, , 05/10/2021, Additional history exists Procedures Procedure Name Priority Date/Time Associated Diagnosis Comments ALL BASIC METABOLIC PANEL Routine 09/09/2024 3:07 PM EDT ALL BASIC METABOLIC PANEL Routine 08/29/2024 8:02 AM EDT ALL BASIC METABOLIC PANEL Routine 08/18/2024 4:21 PM EDT COLONOSCOPY DIAGNOSTIC Routine 07/30/2024 9:25 AM EST from Last 3 Months Results * (ABNORMAL) ALL BASIC METABOLIC PANEL (09/09/2024 3:07 PM EDT) Only the most recent of3 resultswithin the time period is included. SODIUM 137 136 - 145 mmol/L [facility] POTASSIUM 4.8 3.5 - 5.1 mmol/L [facility] CHLORIDE 102 98 - 107 mmol/L [facility] CARBON DIOXIDE 26.2 21.0 - 32.0 mmol/L [facility] ANION GAP 13.6 [facility] GLUCOSE 78 74 - 106 mg/dL [facility] BLOOD UREA NITROGEN 35.0(H) 7.0 - 18.0 mg/dL [facility] CREATININE 1.79(H) 0.70 - 1.30 mg/dL [facility] EGFR-AF NIUEAN 48(L) >=60 mL/min/1.7 3m 2 TB[facility] EGFR-NON AF NIUEAN 39(L) >=60 mL/min/1.7 3m 2 [facility] BUN CREATININE RATIO 19.6 [facility] CALCIUM 8.4(L) 8.5 - 10.1 mg/dL [facility] 09/09/2024 3:07 PM EDT 09/09/2024 3:09 PM EDT Narrative [facility] - 09/09/2024 3:36 PM EDT us Luci Rios NP CLINISYRAMSEY Final Result [facility] * COLONOSCOPY DIAGNOSTIC (07/30/2024 9:25 AM EST) Anatomical Region Laterality Modality Radiographic Juliann ging Sav Andrews MD IMG XR PROCEDURES Final Result from Last 3 Months Insurance [facility] Care Teams Superior [address] Judge Relationship Specialty Start Date End Date Antwan Perez MD [address] [place] [phone] PCP - General Family Medicine 12/30/23 Georgina Velasquez NP [address] [place] [address] Nurse Practitioner Family Medicine 12/30/23
--- OUTSIDE RECORDS SUMMARY | 2024-10-24 08:51 | XMS_ITS | CCD ---
Author Organization [facility] Care Team Providers Care Supervisor Keymodule Assembly Name Role Phone MD Sav Andrews Attending Provider [phone] MD Deana Baker Primary Care Provider DR [...] Unavailable FAWWAD, LEBLANC H Attending Unavailable REY PEREZ Attending Unavailable REY PEREZ Admitting Unavailable FAWWAD, LEBLANC H Primary Care Unavailable ALEXANDRIA, DR MICHELLE Valles Consulting Unavailable HIGHLREY EVERETT Consulting Unavailable REY PEREZ Admitting Unavailable ULISES, DR GERA Kwan Consulting Unavailable REY PEREZ Attending Unavailable FAWWAD, LEBLANC H Primary Care Unavailable REY PEREZ Consulting Unavailable FAWWAD, LEBLANC H Admitting Unavailable FAWWAD, LEBLANC H Primary Care Unavailable FAWWAD, LEBLANC H Consulting Unavailable FAWWAD, LEBLANC H Attending Unavailable FAWWAD, LEBLANC H Primary Care Unavailable FAWWAD, LEBLANC H Consulting Unavailable SWEETIEWACecile, LEBLANC H Attending Unavailable SAMUEL, LEBLANC H Admitting Unavailable MD Deana Baker Primary Care Provider [phone] DO Silver Briceño Attending Provider Sav Andrews Attending Unavailable Sav Andrews Admitting Unavailable Shaikh Baker Primary Care Unavailable Silver Briceño Attending Unavailable Silver Briceño Admitting Unavailable Beltran Bakerikh Primary Care Unavailable Sav Andrews Admitting Unavailable Sav Andrews Attending Unavailable Silver Briceño Attending Unavailable Silver Briceño Admitting Unavailable Samuel, Leblanc Primary Care Unavailable Antwan Perez MD Primary Care Provider [phone] Eva BOTTOM FINISHER, Marquis Unavailable [phone] Samuel GUPTA, Unavailable Eva BOTTOM FINISHER, Marquis Unavailable [phone] LUCI RIOS Attending Unavailable MARQUIS VELASQUEZ Attending UnavailABISAI Gomez Attending Unavailable MARQUIS VELASQUEZ Referring UnavailLUCI Fitzgerald Attending Unavailable ABISAI BOATENG Attending Unavailable SHAIKH BAKER Attending Unavailable LUCI RIOS Attending Unavailable LUCI RIOS Attending Unavailable MARQUIS VELASQUEZ Attending Unavailabl e Medications Current Medications Medication Drug Class(es) Dates Sig (Normalized) Sig (Original) [id number] 200 actuat albuterol 0.09 mg/actuat metered dose inhaler (20 sources) beta2-Adrenergic Agonist Start: 05-08-2023 End: 11-06-2024 take 2 puff(s) by inhalation every four hours albuterol HFA 90 mcg/act inhaler Indications: Severe persistent asthma without complication ([facility]/HCC) Inhale 2 puffs every 4 (four) hours [...] daily August 30, 2022 12:00am Continuous Glucose Polisher Hand (FreeStyle Era 2 Gem) device (20 sources) Start: 03-19-2024 End: 03-19-2025 Continuous Glucose Polisher Hand (FreeStyle Era 2 Gem) device Indications: Type 2 diabetes mellitus without complication, with long-term current use of insulin 1 each in the morning and 1 each at noon and 1 each in the evening and 1 each before bedtime. 1 each 03/19/2024 03/19/2025 Active Start: 03-19-2024 End: 03-19-2025 Continuous Glucose Polisher Hand (FreeStyle Era 2 Gem) device Indications: Type 2 diabetes mellitus without complication, with long-term current use of insulin (CMS/HCC) 1 each in the morning and 1 each at noon and 1 each in the evening and 1 each before bedtime. 1 each 03/19/2024 03/19/2025 Active Start: 01-22-2024 End: 03-18-2024 Continuous Glucose Polisher Hand (FreeStyle Era 2 Gem) device Indications: Type 2 diabetes mellitus without complication, with long-term current use of insulin (CMS/HCC) 1 each in the morning and 1 each at noon and 1 each in the evening and 1 each before bedtime. 1 each 01/22/2024 03/18/2024 Discontinued (Reorder) Start: 01-22-2024 End: 01-21-2025 Continuous Glucose Polisher Hand (FreeStyle Era 2 Gem) device Indications: Type 2 diabetes mellitus without complication, with long-term current use of insulin (CMS/[facility]) 1 each in the morning and 1 each at noon and 1 each in the evening and 1 each before bedtime. 1 each 01/22/2024 01/21/2025 Active Continuous Glucose Sensor (FreeStyle Era 2 Plus Sensor) [facility] ([facility] Start: 04-27-2024 End: 05-25-2024 Continuous Glucose Sensor (FreeStyle Era 2 Plus Sensor) [facility] Indications: Type 2 diabetes mellitus with diabetic polyneuropathy, with long-term current use of insulin (CMS/HCC) 1 each continuously for 28 days 2 each 04/27/2024 05/25/2024 Active Continuous Glucose Sensor (FreeStyle Era 3 Plus Sensor) misc (17 sources) Start: 07-23-2024 Continuous Glu cose Sensor (FreeStyle Era 3 Plus Sensor) [facility] USE 1 SENSOR EVERY 15 DAYS TO MONITOR BLOOD SUGAR. 07/23/2024 Active Start: 05-06-2024 End: 06-03-2024 Continuous Glucose Sensor (F reeStyle Era 3 Plus Sensor) [facility] Indications: Type 2 diabetes mellitus with diabetic polyneuropathy, with long-term current use of insulin ([facility]) 1 each continuously for 28 days 2 each 05/06/2024 06/03/2024 Active End: 05-06-2024 Continuous Glucose Sensor (F reeStyle Era 3 Plus Sensor) [facility] 05/06/2024 Discontinued (Reorder) dapagliflozin 5 mg oral tablet (14 sources) Sodium-Glucose Cotransporter 2 Inhibitor Start: 07-29-2024 End: 10-27-2024 take 1 tablet by mouth once daily dapagliflozin (Farxiga) 5 MG Indications: Type 2 diabetes mellitus without complications Take 1 tablet (5 mg) by mouth Daily 90 tablet 07/29/2024 10/27/2024 Active Fluticasone-Umeclid in-Vilant (Trelegy Ellipta) 200-62.5-25 MCG/ACT aerosol powder (20 sources) Start: 10-08-2024 End: 11-07-2024 take 1 puff(s) by mouth once daily, then take 1 puff(s) by mouth once daily Fluticasone-Umecli din-Vilant (Trelegy Ellipta) 200-62.5-25 MCG/ACT aerosol powder Indications: Severe persistent asthma without complication (CMS/HCC) Inhale 1 puff Daily INHALE 1 PUFF ONCE DAILY, rinse mouth after use 1 each 5 10/08/2024 11/07/2024 Active Start: 07-29-2024 End: 10-08-2024 take 1 puff(s) by mouth once daily, then take 1 puff(s) by mouth once daily Zpzavvtprqq-Gmybkqxwe-Vvhgiv (Trelegy Ellipta) 200-62.5-25 MCG/ACT aerosol powder Indications: Severe persistent asthma without complication (CMS/HCC) Inhale 1 puff Daily INHALE 1 PUFF ONCE DAILY, rinse mouth after use 1 each 5 07/29/2024 10/08/2024 Discontinued (Reorder) Start: 07-29-2024 take 1 puff(s) by mo uth once daily, then take 1 puff(s) by mouth once daily Npjaygalowj-Kaxcwlgic-Fytrqj (Trelegy Ellipta) 200-62.5-25 MCG/ACT aerosol powder Indications: Severe persistent asthma without complication (CMS/HCC) Inhale 1 puff Daily INHALE 1 PUFF ONCE DAILY, rinse mouth after use 1 each 5 07/29/2024 Active Start: 07-29-2024 End: 08-28-2024 take 1 puff(s) by mouth once daily, then take 1 puff(s) by mouth once daily Jtcsjjshigu-Oftwggeqo-Ahkgox (Trelegy Ellipta) 200-62.5-25 MCG/ACT aerosol powder Indications: Severe persistent asthma without complication (CMS/HCC) Inhale 1 puff Daily INHALE 1 PUFF ONCE DAILY, rinse mouth after use 1 each 5 07/29/2024 08/28/2024 Active Start: 01-22-2024 take 1 puff(s) by inhalation once daily Diaphnmzjsw-Vfxcbhsfq-Xvtdyr (Trelegy Ellipta) 200-62.5-25 MCG/ACT aerosol powder Indications: Severe persistent asthma without complication (CMS/HCC) Inhale 1 puff Daily 3 each 01/22/2024 Active Start: 01-22-2024 End: 04-21-2024 take 1 puff(s) by inhalation once daily Nsdfmspuwnx-Coygvrchg-Lyaqgb (Trelegy Ellipta) 200-62.5-25 MCG/ACT aerosol powder Indications: Severe persistent asthma without complication (CMS/HCC) Inhale 1 puff Daily 3 each 01/22/2024 04/21/2024 Active Start: 05-08-2023 End: 01-22-2024 take 1 puff(s) by inhalation in the morning Alohcqjhlbf-Ohznsshbh-Qfqzsy (Trelegy Ellipta) 200-62.5-25 MCG/ACT aerosol powder Indications: Severe persistent asthma without complication (CMS/HCC) Inhale 1 puff in the morning. 3 each 05/08/2023 01/22/2024 Discontinued (Reorder) Start: 05-08-2023 take 1 puff(s) by inhalation in the morning Guvvzjnhnix-Pegxkmiwo-Wicuqc (Trelegy Ellipta) 200-62.5-25 MCG/ACT aerosol powder Indications: Severe persistent asthma without complication (CMS/HCC) Inhale 1 puff in the morning. 3 each 05/08/2023 Active Mbmvvjilaxg-Dbqlahhdi-Rfgqaa er (4 sources) Start: 12-22-2021 Zdwlwqjpdvw-Ovtftsdfc-Itywcz er (Trelegy Ellipta) 200-62.5-25 mcg Blister With [...] MG PO Daily December 22, 2021 12:00am [place] 9-Vio-Htq-Fish Oil (Fish Oil) 1,200 (144-216) mg Capsule (4 sources) Start: 12-22-2021 take 1 capsule by mouth twice daily [place] 0-Qyr-Vzu-Fish Oil (Fish Oil) 1,200 (144-216) mg Capsule [...] Sig (Normalized) Sig (Original) Continuous Blood Gluc Polisher Hand (FreeStyle Era 2 Gem) device (3 sources) Start: 07-18-2023 End: 01-22-2024 Continuous Blood Gluc Polisher Hand (FreeStyle Era 2 Gem) device Indications: Type 2 diabetes mellitus without complication, with long-term current use of insulin (CMS/HCC) 1 each in the morning and 1 each at noon and 1 each in the evening and 1 each before bedtime. 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] Onset: 07-29-2024 07-29-2024 Episodic Other bone disease and musculoskeletal deformities (4 sources) Idiopathic aseptic necrosis of right ankle; Translations: [IDIOPATH ASEPTIC NECROSIS RT ANKLE] Onset: 11-14-2021 Chronic Other bone disease and musculoskeletal deformities (17 sources) Idiopathic aseptic necrosis of right foot; Translations: [Aseptic necrosis of bone, other] Onset: 07-29-2024 07-29-2024 Chronic Other nutritional; endocrine; and metabolic disorders (19 sources) Obesity caused by energy imbalance; Translations: [Morbid (severe) obesity due to excess calories] Onset: 07-29-2024 07-29-2024 Chronic Other nutritional; endocrine; and metabolic disorders (17 sources) Body mass index 30+ - obesity; Translations: [Body mass index (BMI) 38.0-38.9, adult] Onset: 07-29-2024 07-29-2024 Chronic Other screening for suspected conditions (not mental disorders or infectious disease) (18 sources) Serum creatinine raised; Translations: [Other specified abnormal findings of blood chemistry] Onset: 08-19-2024 08-19-2024 Episodic Other skin disorders (3 sources) Dystrophia unguium; Translations: [Nail dystrophy] 02-24-2024 Episodic Residual codes; unclassified (14 sources) Bilateral lower limb edema; Translations: [Localized [...] Name Value Interpretation Reference Range Facility ALL BASIC METABOLIC PANELon 09-09-2024 Anion gap [Moles/Vol] 13.6 mmol/L [facility] Calcium [Mass/Vol] 8.4 mg/dL Low 8.5 - 10. 1 mg/dL [facility] Chloride [Moles/Vol] 102 mmol/L 98 - 10 7 mmol/L [facility] CO2 [Moles/Vol] 26.2 mmol/L 21.0 - 32.0 mmol/L [facility] Creatinine [Mass/Vol] 1.79 mg/dL High 0.70 - 1.30 mg/dL [facility] GFR/1.73 sq M.predicted CKD-EPI (S/P/Bld) [Vol rate/Area] 48 Low >=60 mL/min/1.73m 2 [facility] Glucose [Mass/Vol] 78 mg/dL 74 - 106 mg/dL [facility] Interpretation and review of laboratory results Abnormal [facility] Potassium [Moles/Vol] 4.8 mmol/L 3.5 - 5.1 mmol/L [facility] Sodium [Moles/Vol] 137 mmol/L 136 - 145 mmol/L [facility] TBH EGFR-NON AF [place] 39 Low >=6 0 mL/min/1.73m 2 [facility] Urea nitrogen [Mass/Vol] 35 mg/dL High 7.0 - 18.0 mg/dL [facility] Urea nitrogen/Creatinine [Mass ratio] 19.6 mg/mg [facility] ALL BASIC METABOLIC PANELon 08-29-2024 Anion gap [Moles/Vol] 15 mmol/L [facility] Calcium [Mass/Vol] 9.2 mg/dL 8.5 - 10. 1 mg/dL [facility] Chloride [Moles/Vol] 106 mmol/L 98 - 10 7 mmol/L [facility] CO2 [Moles/Vol] 26.2 mmol/L 21.0 - 32.0 mmol/L [facility] Creatinine [Mass/Vol] 1.08 mg/dL 0.70 - 1.30 mg/dL [facility] GFR/1.73 sq M.predicted CKD-EPI (S/P/Bld) [Vol rate/Area] >60 >=60 mL/min/1.73m 2 [facility] Glucose [Mass/Vol] 148 mg/dL High 74 - 106 mg/dL [facility] Interpretation and review of laboratory results Abnormal [facility] Potassium [Moles/Vol] 5.2 mmol/L High 3.5 - 5.1 mmol/L [facility] Sodium [Moles/Vol] 142 mmol/L 136 - 145 mmol/L [facility] TBH EGFR-NON AF [place] >60 >=6 0 mL/min/1.73m 2 [facility] Urea nitrogen [Mass/Vol] 23 mg/dL High 7.0 - 18.0 mg/dL [facility] Urea nitrogen/Creatinine [Mass ratio] 21.3 mg/mg [facility] ALL CBC WITH AUTO DIFFon BASOPHILS ABSOLUTE AUTO 0.1 N [facility] Basophils/100 WBC (Bld) 0.8 % 0.2 - 2.0 % [facility] Eosinophils/100 WBC (Bld) 7.1 % High 0.9 - 7.0 % [facility] Erythrocyte distribution width (RBC) [Ratio] 13.2 % 11.0 - 15.0 % [facility] Hematocrit (Bld) [Volume fraction] 39.4 % Low 42.0 - 54.0 % [facility] Hemoglobin (Bld) [Mass/Vol] 13.4 g/dL Low 14.0 - 18.0 g/dL [facility] IMMATURE GRANULOCYTES ABS AUTO 0.07 High [facility] Immature granulocytes/100 WBC (Bld) 1.2 % High 0.0 - 0.5 % [facility] Interpretation and review of laboratory results Abnormal [facility] LYMPHOCYTES ABSOLUTE AUTO 2 [facility] Lymphocytes/100 WBC (Bld) 32.4 % 20.5 - 60.0 % [facility] MCH (RBC) [Entitic mass] 29.6 pg 25. 9 - 34.0 pg [facility] MCHC (RBC) [Mass/Vol] 34 g/dL 29.9 - 35.2 g/dL [facility] MCV (RBC) [Entitic vol] 87 fL 80.0 - 94.0 fL [facility] MONOCYTES ABSOLUTE AUTO 0.4 N [facility] Monocytes/100 WBC (Bld) 6.4 % 1.7 - 12.0 % [facility] NEUTROPHILS ABSOLUTE AUTO 3.2 [facility] Neutrophils/100 WBC (Bld) 52.1 % 43.0 - 75.0 % [facility] Platelet mean volume (Bld) [Entitic vol] 10.5 fL 9.5 - 13.5 fL [facility] TBH EO # 0.4 [facility] TB PLT [address] [facility] RBC 4.53 Low [facility] TB WBC 6.1 [facility] ALL LIPID PROFILE (FASTING)o n 01-25-2024 CHOL HDL RATIO 3.4 [facility] Comment on above: 3.3 - 4.4 LOW RISK 4.4 - 7.1 AVERAGE RISK 7.1 - 11.0 MODERATE RISK >11.0 HIGH RISK Cholesterol [Mass/Vol] 149 mg/dL NINF - 200 mg/dL [facility] Cholesterol in HDL [Mass/Vol] 44 mg/dL 40 - 60 mg/dL [facility] Comment on above: > or =60 mg/dl - LOW CARDIOVASCULAR RISK <40 mg/dl - HIGH CARDIOVASCULAR RISK Magnesium [Mass/Vol] 70.0 mg/dL [facility] Comment on above: <100 mg/dl OPTIMAL 100-129 mg/dl NEAR OR ABOVE OPTIMAL 130-159 mg/dl BORDERLINE HIGH 160-189 mg/dl HIGH >190 mg/dl VERY HIGH Magnesium [Mass/Vol] 35.6 mg/dL [facility] Triglyceride [Mass/Vol] 178 mg/dL High NINF - 150 mg/dL [facility] CMP (CMP) (FOR REMOTE FH C USE)on 01-25-2024 Albumin [Mass/Vol] 3.3 g/dL Low 3.4 - 5.0 g/dL [facility] ALBUMIN GLOBULIN RATIO 0.8 NO [facility] ALP [Catalytic activity/Vol] 63 U/L 46 - 116 U/L [facility] ALT [Catalytic activity/Vol] 46 U/L 16 - 63 U/L [facility] Anion gap [Moles/Vol] 13.2 mmol/L NO [facility] AST [Catalytic activity/Vol] 21 U/L 15 - 37 U/L [facility] Bilirubin [Mass/Vol] 1.0 mg/dL 0.2 - 1 .0 mg/dL [facility] Calcium [Mass/Vol] 8.8 mg/dL 8.5 - 10. 1 mg/dL [facility] Chloride [Moles/Vol] 103 mmol/L 98 - 10 7 mmol/L [facility] CO2 [Moles/Vol] 27.3 mmol/L 21.0 - 32.0 mmol/L [facility] Creatinine [Mass/Vol] 1.09 mg/dL 0.70 - 1.30 mg/dL [facility] GFR/1.73 sq M.predicted CKD-EPI (S/P/Bld) [Vol rate/Area] >60 60 - PINF [facility] Globulin (S) [Mass/Vol] 4.0 g/dL N [facility] Glucose [Mass/Vol] 147 mg/dL High 74 - 106 mg/dL [facility] Potassium [Moles/Vol] 4.5 mmol/L 3.5 - 5.1 mmol/L [facility] Protein [Mass/Vol] 7.3 g/dL 6.4 - 8.2 g/dL [facility] Sodium [Moles/Vol] 139 mmol/L 136 - 145 mmol/L [facility] TBH EGFR-NON AF [place] >60 60 - PINF [facility] Urea nitrogen [Mass/Vol] 28.0 mg/dL High 7.0 - 18.0 mg/dL [facility] Urea nitrogen/Creatinine [Mass ratio] 25.7 mg/mg [facility] No Panel Informationon 01-24 Interpretation and review of laboratory results Abnormal [facility] Glucose Glucometer (BldC) [M ass/Vol]Ordered By: Silver Briceño on 09-10-2022 Glucose [Mass/Vol] 137 mg/dL [facility] Comment on above: Random Glucose Refer ence Range is dependent on time and content of last meal. Glucose of more than 200 mg/dL in a nonstressed, ambulatory subject supports the diagnosis of Diabetes Mellitus. Glucose [Mass/Vol] 131 mg/dL [facility] Comment on above: Random Glucose Refer ence Range is dependent on time and content of last meal. Glucose of more than 200 mg/dL in a nonstressed, ambulatory subject supports the diagnosis of Diabetes Mellitus. Glucose Poct Glucometerson 0 09-10-2022 Glucose [Mass/Vol] 137 mg/dL Normal [facility] Comment on above: Result Comment: [place] Glucose Reference Range is dependent on time and content of last meal. Glucose of more than 200 mg/dL in a nonstressed, ambulatory subject supports the diagnosis of Diabetes Mellitus. PERFORMED BY: [facility] [address] [address] PATHOLOGIST KNITTING MACHINE OPERATOR HELPER TEOFILO KHAN M.D. Performed By: #### G LULS #### Point of Care testing , Glucose [Mass/Vol] 131 mg/dL Normal [facility] Comment on above: Result Comment: [place] Glucose Reference Range is dependent on time and content of last meal. Glucose of more than 200 mg/dL in a nonstressed, ambulatory subject supports the diagnosis of Diabetes Mellitus. PERFORMED BY: [address] [address] PATHOLOGIST KNITTING MACHINE OPERATOR HELPER TEOFILO KHAN M.D. Performed By: #### G LULS #### Point of Care testing , Basic Metabolic Panelon 04-0 Anion gap [Moles/Vol] 13.5 mmol/L Normal 6.0-15.0 [facility] Comment on above: Performed By: #### C BC, BMP #### [facility] [address] [place] [address] [place] Calcium [Mass/Vol] 9.4 mg/dL Normal 8.6-10.3 [facility] Comment on above: Result Comment: PERF ORMED BY: [facility] [address] [place] [address] PATHOLOGIST KNITTING MACHINE OPERATOR HELPER TEOFILO KHAN M.D. Performed By: #### C BC, BMP #### [address] [address] [place] Chloride [Moles/Vol] 102 mmol/L Normal 98-107 [facility] Comment on above: Performed By: #### C BC, BMP #### [address] [place] [address] [place] CO2 [Moles/Vol] 28.5 mmol/L Normal 21.0-31.0 [facility] Comment on above: Performed By: #### C SAI, BMP #### [facility] [address] Creatinine [Mass/Vol] 0.99 mg/dL Normal 0.70-1.30 [facility] Comment on above: Performed By: #### C SAI, BMP #### [facility] [address] [place] [address] [place] GFR/1.73 sq M.predicted MDRD (S/P/Bld) [Vol rate/Area] mL/min/{1.73_m2} Normal [facility] Comment on above: Performed By: #### C SAI, BMP #### [facility] [address] Glucose [Mass/Vol] 114 mg/dL High 70-100 [facility] Comment on above: Result Comment: [place] Glucose Reference Range is dependent on time and content of last meal. Glucose of more than 200 mg/dL in a nonstressed, ambulatory subject supports the diagnosis of Diabetes Mellitus. ADA recommended reference range Performed By: #### C SAI, BMP #### [facility] [address] [place] [address] [place] Potassium [Moles/Vol] 4.0 mmol/L Normal 3.5-5.1 [facility] Comment on above: Performed By: #### C SAI, BMP #### [facility] [address] [place] [address] [place] Sodium [Moles/Vol] 140 mmol/L Normal 136-145 [facility] Comment on above: Performed By: #### C BC, BMP #### [facility] [address] [place] [address] [place] Urea nitrogen [Mass/Vol] 21 mg/dL Normal 7-25 [facility] Comment on above: Performed By: #### C BC, BMP #### [facility] [address] [place] [address] [place] Basophils Auto (Bld) [#/Vol] Ordered By: Silver Briceño on 08-30-2022 Basophils (Bld) [#/Vol] 0.0 10*3/uL 0.0-0.2 [facility] Basophils/100 WBC Auto (Bld) Ordered By: Silver Briceño on 08-30-2022 Basophils/100 WBC (Bld) 0.7 % . F [facility] [place] [facility] Calcium [Mass/volume] in Ser um or PlasmaOrdered By: Silver Briceño on 08-30-2022 Calcium [Mass/Vol] 9.4 mg/dL 8.6-10.3 [facility] Carbon dioxide, total [Moles /volume] in Serum or PlasmaOrdered By: Silver Briceño on 08-30-2022 CO2 [Moles/Vol] 28.5 mmol/L 21.0-31.0 [facility] Chloride [Moles/volume] in S gela or PlasmaOrdered By: Silver Briceño on 08-30-2022 Chloride [Moles/Vol] 102 mmol/L 98-107 [facility] Complete Blood Count Auto Di ffon 08-30-2022 Basophils (Bld) [#/Vol] 0.0 10*3/uL Normal 0.0-0.2 [facility] Comment on above: Result Comment: PERF ORMED BY: [place] [address] PATHOLOGIST KNITTING MACHINE OPERATOR HELPER TEOFILO KHAN M.D. Performed By: #### C SAI, BMP #### [place] [address] [place] Basophils/100 WBC (Bld) 0.7 % Normal . F [facility] [place] [facility] Comment on above: Performed By: #### C BC, BMP #### [facility] [address] [place] [address] [place] Eosinophils (Bld) [#/Vol] 0.3 10*3/uL Normal 0.0-0.45 [facility] Comment on above: Performed By: #### C BC, BMP #### [facility] [address] [place] [address] [place] Eosinophils/100 WBC (Bld) 6.1 % Normal . [facility] Comment on above: Performed By: #### C BC, BMP #### [facility] [address] Erythrocyte distribution width (RBC) [Ratio] 14.5 % Normal 12.0-14.8 [facility] Comment on above: Performed By: #### C BC, BMP #### [address] Hematocrit (Bld) [Volume fraction] 36.5 % Low 38.8-50.0 [facility] [facility] [place] Comment on above: Performed By: #### C BC, BMP #### [address] Hemoglobin (Bld) [Mass/Vol] 12.5 g/dL Low 13.0-17.0 [facility] [place] Comment on above: Performed By: #### C BC, BMP #### [address] Lymphocytes (Bld) [#/Vol] 1.8 10*3/uL Normal 1.00-4.8 [facility] [place] Comment on above: Performed By: #### C BC, BMP #### [address] Lymphocytes/100 WBC (Bld) 35.5 % Normal . [facility] [place] Comment on above: Performed By: #### C BC, BMP #### [address] MCH (RBC) [Entitic mass] 29.2 pg Normal 27.5-35.2 [facility] [place] Comment on above: Performed By: #### C BC, BMP #### [address] MCV (RBC) [Entitic vol] 85.1 fL Normal 83.5-101 F [facility] Comment on above: Performed By: #### C BC, BMP #### [address] Mean Corpuscular HGB Conc 34.3 g/dL Normal 32.5-35.6 [facility] [place] Comment on above: Performed By: #### C BC, BMP #### [facility] [address] [place] [address] [place] Monocytes (Bld) [#/Vol] 0.4 10*3/uL Normal 0.0-0.8 [facility] [place] Comment on above: Performed By: #### C BC, BMP #### [facility] [address] [place] [address] [place] Monocytes/100 WBC (Bld) 8.2 % Normal . F [facility] Comment on above: Performed By: #### C BC, BMP #### [facility] [address] Neutrophils (Bld) [#/Vol] 2.5 10*3/uL Normal 1.8-7.7 [facility] [place] Comment on above: Performed By: #### C BC, BMP #### [facility] [address] [place] [address] [place] Neutrophils/100 WBC (Bld) 49.5 % Normal . [facility] [place] Comment on above: Performed By: #### C BC, BMP #### [facility] [address] [place] [address] [place] NRBC% 0.2 /100{WBC} Normal 0-0.5 [facility] [place] Comment on above: Performed By: #### C BC, BMP #### [facility] [address] [place] [address] [place] Platelet mean volume (Bld) [Entitic vol] 8.8 fL Normal 6.6-10.1 [facility] [place] Comment on above: Performed By: #### C BC, BMP #### [facility] [address] [place] [address] [place] Platelets (Bld) [#/Vol] 155 10*3/uL Normal 150-450 [facility] [place] Comment on above: Performed By: #### C BC, BMP #### [facility] [address] [place] [address] [place] RBC (Bld) [#/Vol] 4.29 10*6/uL Normal 3.90-5.60 [facility] Comment on above: Performed By: #### C SAI, BMP #### [facility] [address] WBC (Bld) [#/Vol] 5.1 10*3/uL Normal 4.1-10.5 [facility] Comment on above: Performed By: #### C SAI, BMP #### [facility] [address] Creatinine [Mass/volume] in Serum or PlasmaOrdered By: Silver Briceño on 08-30-2022 Creatinine [Mass/Vol] 0.99 mg/dL 0.70-1.30 [facility] ECG 12 lead ECGon 08-30-2022 ECG 12 lead ECG [facility] Main [place] [address] [place] [address] Electrocardiograph Report Signed Patient: Dante Dietz MR#: [id number] : 1965 Acct:[id number] Age/Sex: 57 / M ADM Date: 08/30/22 Loc: Room: Type: [facility] Attending Dr: Silver Briceño DO Ordering [...] previous ECGs available Confirmed by KATE GU[facility]A [facility] ([id number]) on 08/31/2022 12:23:25 PM Referred By: FREDDY Electronically Signed By:LEANNA LOVE MD FAC Transcribed By: MUS Signed By Leo Love MD 08/31/22 1223 Normal [facility] [place] Eosinophils Auto (Bld) [#/Vo l]Ordered By: Silver Briceño on 08-30-2022 Eosinophils (Bld) [#/Vol] 0.3 10*3/uL 0.0-0.45 [facility] [place] Eosinophils/100 WBC Auto (Bl d)Ordered By: Silver Briceño on 08-30-2022 Eosinophils/100 WBC (Bld) 6.1 % . [facility] [place] Erythrocyte distribution wid th Auto (RBC) [Ratio]Ordered By: Silver Briceño on 08-30-2022 Erythrocyte distribution width (RBC) [Ratio] 14.5 % 12.0-14.8 [facility] [place] Glucose [Mass/volume] in Ser um or PlasmaOrdered By: Silver Briceño on 08-30-2022 Glucose [Mass/Vol] 114 mg/dL 70-100 [facility] Comment on above: ADA recommended refe rence rangeRandom Glucose Reference Range is dependent on time and content of last meal. Glucose of more than 200 mg/dL in a nonstressed, ambulatory subject supports the diagnosis of Diabetes Mellitus. Hematocrit Auto (Bld) [Volum e fraction]Ordered By: Silver Briceño on 08-30-2022 Hematocrit (Bld) [Volume fraction] 36.5 % 38.8-50.0 [facility] [place] Hemoglobin [Mass/volume] in BloodOrdered By: Silver Briceño on 08-30-2022 Hemoglobin (Bld) [Mass/Vol] 12.5 g/dL 13.0-17.0 [facility] [place] Leukocytes [#/volume] correc shashi for nucleated erythrocytes in Blood by Automated counOrdered By: Silver Briceño on 08-30-2022 WBC corrected for nucl RBC Auto (Bld) [#/Vol] 5.1 10*3/uL 4.1-10.5 [facility] [place] Lymphocytes Auto (Bld) [#/Vo l]Ordered By: Silver Briceño on 08-30-2022 Lymphocytes (Bld) [#/Vol] 1.8 10*3/uL 1.00-4.8 [facility] [place] Lymphocytes/100 WBC Auto (Bl d)Ordered By: Silver Briceño on 08-30-2022 Lymphocytes/100 WBC (Bld) 35.5 % . [facility] [place] MCH Auto (RBC) [Entitic mass ]Ordered By: Silver Briceño on 08-30-2022 MCH (RBC) [Entitic mass] 29.2 pg 27.5-35.2 [facility] [place] MCHC Auto (RBC) [Mass/Vol]Or dered By: Silver Briceño on 08-30-2022 MCHC (RBC) [Mass/Vol] 34.3 g/dL 32.5-35.6 [facility] MCV Auto (RBC) [Entitic vol] Ordered By: Silver Briceño on 08-30-2022 MCV (RBC) [Entitic vol] 85.1 fL 83.5-101 F [facility] Monocytes Auto (Bld) [#/Vol] Ordered By: Silver Briceño on 08-30-2022 Monocytes (Bld) [#/Vol] 0.4 10*3/uL 0.0-0.8 [facility] [place] Monocytes/100 WBC Auto (Bld) Ordered By: Silver Briceño on 08-30-2022 Monocytes/100 WBC (Bld) 8.2 % . F [facility] Neutrophils Auto (Bld) [#/Vo l]Ordered By: Silver Briceño on 08-30-2022 Neutrophils (Bld) [#/Vol] 2.5 10*3/uL 1.8-7.7 [facility] [place] Neutrophils/100 WBC Auto (Bl d)Ordered By: Silver Briceño on 08-30-2022 Neutrophils/100 WBC (Bld) 49.5 % . [facility] [place] No Panel InformationOrdered By: Silver Briceño on 08-30-2022 Estimated GFR (CKD-EPI) > 60.0 mL/Min [facility] [place] Pharmacy Creatinine Clearance (Chem N/A [facility] [place] Nucleated erythrocytes [Pres ence] in Blood by Automated countOrdered By: Silver Briceño on 08-30-2022 Nucleated RBC Auto Ql (Bld) 0.2 /100{WBC} 0-0.5 [facility] [place] Platelet mean volume Auto (B ld) [Entitic vol]Ordered By: Silver Briceño on 08-30-2022 Platelet mean volume (Bld) [Entitic vol] 8.8 fL 6.6-10.1 [facility] [place] Platelets Auto (Bld) [#/Vol] Ordered By: Silver Briceño on 08-30-2022 Platelets (Bld) [#/Vol] 155 10*3/uL 150-450 [facility] [place] Potassium [Moles/volume] in Serum or PlasmaOrdered By: Silver Briceño on 08-30-2022 Potassium [Moles/Vol] 4.0 mmol/L 3.5-5.1 [facility] RBC Auto (Bld) [#/Vol]Ordere d By: Silver Briceño on 08-30-2022 RBC (Bld) [#/Vol] 4.29 10*6/uL 3.90-5.60 [facility] Serum or plasma anion gap de terminationOrdered By: Silver Briceño on 08-30-2022 Anion gap [Moles/Vol] 13.5 mmol/L 6.0-15.0 [facility] Sodium [Moles/volume] in Ser um or PlasmaOrdered By: Silver Briceño on 08-30-2022 Sodium [Moles/Vol] 140 mmol/L 136-145 [facility] Urea nitrogen [Mass/volume] in Serum or PlasmaOrdered By: Silver Briceño on 08-30-2022 Urea nitrogen [Mass/Vol] 21 mg/dL 7-25 [facility] [place] WBC Auto (Bld) [#/Vol]Ordere d By: Silver Briceño on 08-30-2022 WBC (Bld) [#/Vol] 5.1 10*3/uL 4.1-10.5 [facility] GLYCOHEMOGLOBIN A1Con 2022 ADA RECOMMENDATION SEE BELOW Normal [facility] Comment on above: Result Comment: ADA RECOMMENDED LIMIT 4.0 - 6.0 ADA THERAPEUTIC TARGET < 7.0 ACTION SUGGESTED > 7.0 Performed By: #### A 1C #### [facility] [address] [place] [address] [address] Idania Tai Glucose [Mass/Vol] 243 mg/dL Normal [facility] Comment on above: Performed By: #### A 1C #### [facility] [address] [place], [place] [address] Dr. Idania Tai HbA1c (Bld) [Mass fraction] 10.1 % Critically high 4.5-6.2 [facility] Comment on above: Performed By: #### A 1C #### [facility] [address] [place] [address] [address] Idania Tai LIPID PROFILEon 07-07-2022 CHOL-HDL RATIO NORM SEE BELOW Normal [facility] Comment on above: Result Comment: 3.3 - 4.4 LOW RISK 4.4 - 7.1 AVERAGE RISK 7.1 - 11.0 MODERATE RISK >11.0 HIGH RISK Performed By: #### B MP, LIPID #### [facility] [address] [address] [address] Idania Tai Cholesterol [Mass/Vol] 172 mg/dL Normal <=200 [facility] Comment on above: Performed By: #### B MP, LIPID #### [facility] [address] [place] [address] [address] Idania Tai Cholesterol in HDL [Mass/Vol] 48 mg/dL Normal 40-60 [facility] Comment on above: Performed By: #### B MP, LIPID #### [facility] [address] [place] [address] [address] Idania Tai Cholesterol in LDL [Mass/Vol] 95.6 mg/dL Normal [facility] Comment on above: Performed By: #### B MP, LIPID #### [facility] [address] [place] [address] [address] Idania Tai Cholesterol.total/Choles terol in HDL [Mass ratio] 3.6 {ratio} Normal [facility] Comment on above: Performed By: #### B MP, LIPID #### [facility] [address] [place] [address] [address] Idania Tai HDL NORMAL > or = 60 mg/dl - LOW CARDIOVASCULAR RISK <40 mg/dl - HIGH CARDIOVASCULAR RISK Normal [facility] Comment on above: Performed By: #### B MP, LIPID #### [facility] [address] [place] [address] [address] Idania Tai LDL CALC NORMAL SEE BELOW Normal [facility] Comment on above: Result Comment: <100 mg/dl OPTIMAL 100 - 129 mg/dl NEAR OR ABOVE OPTIMAL 130 - 159 mg/dl BORDERLINE HIGH 160 - 189 mg/dl HIGH >190 mg/dl VERY HIGH Performed By: #### B MP, LIPID #### [facility] [address] [place] [address] Dr. Idania Tai Triglyceride [Mass/Vol] 142 mg/dL Normal <=150 [facility] Comment on above: Performed By: #### B MP, LIPID #### [facility] [address] [place] [address] Dr. Idania Tai VLDL CALC 28.4 mg/dL Normal [facility] Comment on above: Performed By: #### B MP, LIPID #### [facility] [address] [place] [address] Dr. Idania Tai PROF CHEM 8 (BAS METB)on Anion gap [Moles/Vol] 11.0 mmol/L Normal [facility] Comment on above: Performed By: #### B MP, LIPID #### [facility] [address] [place] [address] Dr. Idania Tai Calcium [Mass/Vol] 9.1 mg/dL Normal 8.5-10.1 [facility] Comment on above: Performed By: #### B MP, LIPID #### [facility] [address] [place] [address] Dr. Idania Tai Chloride [Moles/Vol] 100 mmol/L Normal 98-107 [facility] Comment on above: Performed By: #### B MP, LIPID #### [facility] [address] [place] [address] Dr. Idania Tai CO2 [Moles/Vol] 32.6 mmol/L Critically high 21.0-32.0 [facility] Comment on above: Performed By: #### B MP, LIPID #### [facility] [address] [place] [address] Dr. Idania Tai Creatinine [Mass/Vol] 0.81 mg/dL Normal 0.70-1.30 [facility] Comment on above: Performed By: #### B MP, LIPID #### [facility] [address] [place] [address] Dr. Idania Tai EGFR-AF [place]THER[place] >60 Normal >=60 [facility] Comment on above: Performed By: #### B MP, LIPID #### [facility] [address] [place] [address] [address] Idania Tai EGFR-NON AF [place] >60 Normal >=60 [facility] Comment on above: Performed By: #### B MP, LIPID #### [facility] [address] [place] [address] [address] Idania Tai Glucose [Mass/Vol] 157 mg/dL Critically high 74-106 [facility] Comment on above: Performed By: #### B MP, LIPID #### [facility] [address] [place] [address] [address] Idania Tai Potassium [Moles/Vol] 3.6 mmol/L Normal 3.5-5.1 [facility] Comment on above: Performed By: #### B MP, LIPID #### [facility] [address] [place] [address] [address] Idania Tai Sodium [Moles/Vol] 140 mmol/L Normal 136-145 [facility] Comment on above: Performed By: #### B MP, LIPID #### [facility] [address] [place] [address] [address] Idania Tai Urea nitrogen [Mass/Vol] 16.0 mg/dL Normal 7.0-18.0 [facility] Comment on above: Performed By: #### B MP, LIPID #### [facility] [address] [place] [address] [address] Idania Tai Urea nitrogen/Creatinine [Mass ratio] 19.8 mg/mg Normal [facility] Comment on above: Performed By: #### B MP, LIPID #### [facility] [address] [place] [address] [address] Idania Tai PROF CHEM 8 (BAS METB)on Anion gap [Moles/Vol] 16.1 mmol/L Normal [facility] Comment on above: Performed By: #### B MP #### [facility] [address] [place] [address] [address] Idania Tai Calcium [Mass/Vol] 9.4 mg/dL Normal 8.5-10.1 [facility] Comment on above: Performed By: #### B MP #### [facility] [address] [place] [address] Dr. Idania Tai Chloride [Moles/Vol] 98 mmol/L Normal 98-107 [facility] Comment on above: Performed By: #### B MP #### [facility] [address] [place] [address] Dr. Idania Tai CO2 [Moles/Vol] 26.0 mmol/L Normal 21.0-32.0 [facility] Comment on above: Performed By: #### B MP #### [facility] [address] [place] [address] Dr. Idania Tai Creatinine [Mass/Vol] 0.78 mg/dL Normal 0.70-1.30 [facility] Comment on above: Performed By: #### B MP #### [facility] [address] [place] [address] Dr. Idania Tai EGFR-AF [place] >60 Normal >=60 [facility] Comment on above: Performed By: #### B MP #### [facility] [address] [place] [address] Dr. Idania Tai EGFR-NON AF [place] >60 Normal >=60 [facility] Comment on above: Performed By: #### B MP #### [facility] [address] [place] [address] Dr. Idania Tai Glucose [Mass/Vol] 131 mg/dL Critically high 74-106 [facility] Comment on above: Performed By: #### B MP #### [facility] [address] [place] [address] Dr. Idania Tai Potassium [Moles/Vol] 4.1 mmol/L Normal 3.5-5.1 [facility] Comment on above: Performed By: #### B MP #### [facility] [address] [place] [address] Dr. Idania Tai Sodium [Moles/Vol] 136 mmol/L Normal 136-145 [facility] Comment on above: Performed By: #### B MP #### [facility] [address] [place], [place] [address] Dr. Idania Tai Urea nitrogen [Mass/Vol] 19.0 mg/dL Critically high 7.0-18 .0 [facility] Comment on above: Performed By: #### B MP #### [facility] [address] [place], [place] [address] Dr. Idania Tai Urea nitrogen/Creatinine [Mass ratio] 24.4 mg/mg Normal [facility] Comment on above: Performed By: #### B MP #### [facility] [address] [place], [place] [address] Dr. Idania Tai Glucose Glucometer (BldC) [M ass/Vol]Ordered By: Sav Andrews on 12-22-2021 Glucose [Mass/Vol] 113 mg/dL [facility] Comment on above: Random Glucose Refer ence Range is dependent on time and content of last meal. Glucose of more than 200 mg/dL in a nonstressed, ambulatory subject supports the diagnosis of Diabetes Mellitus. Glucose Poct Glucometerson 0 12-22-2021 Glucose [Mass/Vol] 113 mg/dL Normal [facility] Comment on above: Result Comment: [place] om Glucose Reference Range is dependent on time and content of last meal. Glucose of more than 200 mg/dL in a nonstressed, ambulatory subject supports the diagnosis of Diabetes Mellitus. PERFORMED BY: [facility] [address] [place] [address] PATHOLOGIST KNITTING MACHINE OPERATOR HELPER TEOFILO KHAN M.D. Performed By: #### G LU #### Point of Care testing , COVID-19 [...] developed and its performance characteristic determined by [employer] and validated at [facility] [place]. This test has not been FDA cleared [...] for SARS Antigen by [facility]IN PERFORMED BY: [place] [address] PATHOLOGIST KNITTING MACHINE OPERATOR HELPER TEOFILO KHAN M.D. Normal [facility] [place] Comment on above: Performed By: #### C OVID-19 MAYRA, SOFIANEG #### [address] COVID-19 SOFIAOrdered By: Bebe Andrews on 12-20-2021 SARS-CoV+SARS-CoV-2 (COVID-19) Ag IA.rapid Ql (Resp) Negative Negative [facility] [place] Comment on above: This is a duplicate Mayra SARS Antigen (SIN) result to be used for statistical tracking purpose only. No Panel InformationOrdered By: Sav Andrews on 12-20-2021 SARS Antigen (LFIA) [facility] Mayra Ag Negativeon 12-21-19 22 Mayra Ag Negative Negative Normal Negative [facility] Comment on above: Result Comment: This is a duplicate Mayra SARS Antigen (SIN) result to be used for statistical tracking purpose only. PERFORMED BY: [facility] [address] [place] [address] PATHOLOGIST KNITTING MACHINE OPERATOR HELPER TEOFILO KHAN M.D. Performed By: #### C OVID-19 SAE NUNEZ #### [facility] [id number] [facility] CT ANKLE RT WO CONon 022 CT [...] severe tricompartmental osteoarthropathy of the knee with [id number] articulation of the lateral compartment. SOFT TISSUES: Negative. No visible soft tissue swelling. EFFUSION: None visible. OTHER: Negative. IMPRESSION: Progression of subchondral degenerative cystic changes of the tibial plafond and calcaneus Moderate to severe knee osteoarthritis with [id number] articulation of the lateral compartment Electronically authenticated by: GREA BLUM Date: 2021-11-14 16:32 Normal [facility] CBC AUTO DIFFon 09-11-2021 BASO # 0.1 103/ul Normal 0.0-0.1 [facility] Comment on above: Performed By: #### C BC ####[facility] [address] [id number] Tai Basophils/100 WBC (Bld) 0.8 % Normal 0.2-2.0 [facility] Comment on above: Performed By: #### C BC ####[facility] [address] [place], [place] [address]Cr. Idania Tai EO # 0.2 103/ul Normal 0.0-0.7 [facility] Comment on above: Performed By: #### C BC ####[facility] [address] [address]Dr. Idania Tai Eosinophils/100 WBC (Bld) 2.2 % Normal 0.9-7.0 [facility] Comment on above: Performed By: #### C BC ####[facility] [address] [place] [address] [address]Dr. Idania Tai Erythrocyte distribution width (RBC) [Ratio] 13.1 % Normal 11.0-15.0 [facility] Comment on above: Performed By: #### C BC ####[facility] [address] [address]Dr. Idania Tai Hematocrit (Bld) [Volume fraction] 44.5 % Normal 42.0-54.0 [facility] Comment on above: Performed By: #### C BC ####[facility] [address] [place], [place] [address]Dr. Idania Tai Hemoglobin (Bld) [Mass/Vol] 14.9 g/dL Normal 14.0-18.0 [facility] Comment on above: Performed By: #### C BC ####[facility] [address] [place], [place] [address]Dr. Idania Tai IG # 0.13 10e3/ul Critically high 0.00-0.03 [facility] Comment on above: Performed By: #### C BC ####[facility] [address] [place], [place] [address]Dr. Idania Tai IG % 1.5 % Critically high 0.0-0.5 [facility] Comment on above: Performed By: #### C BC ####[facility] [address] [place], [place] [address]Dr. Idania Tai LYMPH # 2.4 103/ul Normal 1.2-3.8 [facility] Comment on above: Performed By: #### C BC ####[facility] [address] [place], [place] [address]Dr. Idania Zaire Lymphocytes/100 WBC (Bld) 27.7 % Normal 20.5-60.0 [facility] Comment on above: Performed By: #### C BC ####[facility] [address] [address]DrAlly Tai MANUAL DIFF REQ NO Normal [facility] [place] Comment on above: Performed By: #### C BC ####[facility] [address] [place] [address]Dr. Idania Tai MCH (RBC) [Entitic mass] 28.9 pg Normal 25.9-34.0 [facility] Comment on above: Performed By: #### C BC ####[facility] [address] [place], [place] [address]Dr. Idania Tai MCHC (RBC) [Mass/Vol] 33.5 g/dL Normal 29.9-35.2 [facility] Comment on above: Performed By: #### C BC ####[facility] [address] [place], [place] [address]Dr. Idania Tai MCV (RBC) [Entitic vol] 86.4 fL Normal 80.0-94.0 [facility] Comment on above: Performed By: #### C BC ####[facility] [address] [place], [place] [address]DrAlly Tai MONO # 0.6 103/ul Normal 0.3-0.8 [facility] Comment on above: Performed By: #### C BC ####[facility] [address] [place], [place] [address]Dr. Idania Tai Monocytes/100 WBC (Bld) 6.4 % Normal 1.7-12.0 [facility] Comment on above: Performed By: #### C BC ####[facility] [address] [place], [place] [address]DrAlly Tai NEUT # 5.3 103/ul Normal 1.4-6.5 [facility] Comment on above: Performed By: #### C BC ####[facility] [facility] [address] [place], [place] [address]DrAlly Tai Neutrophils/100 WBC (Bld) 61.4 % Normal 43.0-75.0 [facility] Comment on above: Performed By: #### C BC ####[facility] [address] [place] [address]DrAlly Idania Tai Platelet mean volume (Bld) [Entitic vol] 9.7 fL Normal 9.5-13.5 [facility] Comment on above: Performed By: #### C BC ####[facility] [address] [address]Dr. Idania Tai PLT 219 103/ul Normal 150-450 [facility] Comment on above: Performed By: #### C BC ####[facility] [address] [address]Dr. Idania Tai RBC 5.15 106/ul Normal 4.70-6.10 [facility] Comment on above: Performed By: #### C BC ####[facility] [address] [place], [place] [address]Dr. Idania Tai WBC 8.6 103/ul Normal 4.0-11.0 [facility] Comment on above: Performed By: #### C BC ####[facility] [address] [place] [address]DrAlly Idania Tai GLYCOHEMOGLOBIN A1Con 2021 ADA RECOMMENDATION ADA THERAPEUTIC TARGET 6.0 - 7.0 ACTION SUGGESTED > 7.0 Normal [facility] Comment on above: Performed By: #### A 1C ####[facility] [address] [place] [address]DrAlly Idania Tai Glucose [Mass/Vol] 128 mg/dL Normal [facility] Comment on above: Performed By: #### A 1C ####[facility] [address] [place] [id number] Idania Tai HbA1c (Bld) [Mass fraction] 6.1 % Critically high <=6.0 [facility] Comment on above: Performed By: #### A 1C ####[facility] [address] [place], [place] [address]DrAlly Idania Zaire LIPID PROFILEon 09-11-2021 CHOL-HDL RATIO NORM SEE BELOW Normal [facility] Comment on above: Result Comment: 3.3 - 4.4 LOW RISK 4.4 - 7.1 AVERAGE RISK 7.1 - 11.0 MODERATE RISK >11.0 HIGH RISK Performed By: #### L IPID, CMP #### [facility] [address] [address] [address] Idania Tai Cholesterol [Mass/Vol] 175 mg/dL Normal <=200 Th [facility] Comment on above: Performed By: #### L IPID, CMP #### [facility] [address] [address] [address] Idania Tai Cholesterol in HDL [Mass/Vol] 54 mg/dL Normal 40-60 [facility] Comment on above: Performed By: #### L IPID, CMP #### [facility] [address] [address] [address] Idania Tai Cholesterol in LDL [Mass/Vol] 87.2 mg/dL Normal [facility] Comment on above: Performed By: #### L IPID, CMP #### [facility] [address] [address] [address] Idania Tai Cholesterol.total/Choles terol in HDL [Mass ratio] 3.2 {ratio} Normal [facility] Comment on above: Performed By: #### L IPID, CMP #### [facility] [address] [address] [address] Idania Tai HDL NORMAL > or = 60 mg/dl - LOW CARDIOVASCULAR RISK <40 mg/dl - HIGH CARDIOVASCULAR RISK Normal [facility] Comment on above: Performed By: #### L IPID, CMP #### [facility] [address] [address] [address] Idania Tai LDL CALC NORMAL SEE BELOW Normal [facility] Comment on above: Result Comment: <100 mg/dl OPTIMAL 100 - 129 mg/dl NEAR OR ABOVE OPTIMAL 130 - 159 mg/dl BORDERLINE HIGH 160 - 189 mg/dl HIGH >190 mg/dl VERY HIGH Performed By: #### L IPID, CMP #### [facility] [address] [address] [address] Idania Tai Triglyceride [Mass/Vol] 169 mg/dL Critically high <=150 [facility] Comment on above: Performed By: #### L IPID, CMP #### [facility] [address] [place] [address] Dr. Idania Tai VLDL CALC 33.8 mg/dL Normal [facility] Comment on above: Performed By: #### L IPID, CMP #### [facility] [address] [place] [address] Dr. Idania Tai MICROALBUMIN, RAND URon 08-25 mALB 1.9 mg/L Normal <=30.0 [facility] Comment on above: Performed By: #### M ALBR #### [facility] [address] [place] [address] Dr. Idania Tai PROF 14(COMP METB)on 022 Albumin [Mass/Vol] 3.7 g/dL Normal 3.4-5.0 [facility] Comment on above: Performed By: #### L IPID, CMP #### [facility] [address] [place] [address] Dr. Idania Tai Albumin/Globulin [Mass ratio] 0.9 {ratio} Normal [facility] Comment on above: Performed By: #### L IPID, CMP #### [facility] [address] [place] [address] Dr. Idania Tai ALP [Catalytic activity/Vol] 73 U/L Normal 46-116 [facility] Comment on above: Performed By: #### L IPID, CMP #### [facility] [address] [place] [address] Dr. Idania Tai ALT [Catalytic activity/Vol] 68 U/L Critically high 16-63 [facility] Comment on above: Performed By: #### L IPID, CMP #### [facility] [address] [place] [address] Dr. Idania Tai Anion gap [Moles/Vol] 10.2 mmol/L Normal [facility] Comment on above: Performed By: #### L IPID, CMP #### [facility] [address] [address] [address] Idania Tai AST [Catalytic activity/Vol] 30 U/L Normal 15-37 [facility] Comment on above: Performed By: #### L IPID, CMP #### [facility] [address] [place] [address] Dr. Idania Tai Bilirubin [Mass/Vol] 1.0 mg/dL Normal 0.2-1.3 [facility] Comment on above: Performed By: #### L IPID, CMP #### [facility] [address] [place] [address] Dr. Idania Tai Calcium [Mass/Vol] 8.5 mg/dL Normal 8.5-10.1 [facility] Comment on above: Performed By: #### L IPID, CMP #### [facility] [address] [place] [address] Dr. Idania Tai Chloride [Moles/Vol] 101 mmol/L Normal 98-107 [facility] Comment on above: Performed By: #### L IPID, CMP #### [facility] [address] [place] [address] Dr. Idania Tai CO2 [Moles/Vol] 31.6 mmol/L Critically high 22.0-30.0 [facility] Comment on above: Performed By: #### L IPID, CMP #### [facility] [address] [place] [address] Dr. Idania Tai Creatinine [Mass/Vol] 0.67 mg/dL Normal 0.66-1.25 [facility] Comment on above: Performed By: #### L IPID, CMP #### [facility] [address] [place] [address] Dr. Idania Tai EGFR-AF [place] >60 Normal >=[address] [facility] Comment on above: Performed By: #### L IPID, CMP #### [facility] [address] [place] [address] Dr. Idania Tai EGFR-NON AF [place] >60 Normal >=60 [facility] Comment on above: Performed By: #### L IPID, CMP #### [facility] [address] [address] [address] Idania Tai Globulin (S) [Mass/Vol] 4.0 g/dL Normal [facility] Comment on above: Performed By: #### L IPID, CMP #### [facility] [address] [place] [address] Dr. Idania Tai Glucose [Mass/Vol] 114 mg/dL Critically high 74-106 [facility] Comment on above: Performed By: #### L IPID, CMP #### [facility] [address] [place] [address] Dr. Idania Tia Potassium [Moles/Vol] 4.8 mmol/L Normal 3.4-5.0 [facility] Comment on above: Performed By: #### L IPID, CMP #### [facility] [address] [place] [address] Dr. Idania Tai Protein [Mass/Vol] 7.7 g/dL Normal 6.1-8.2 [facility] Comment on above: Performed By: #### L IPID, CMP #### [facility] [address] [place] [address] Dr. Idania Tai Sodium [Moles/Vol] 138 mmol/L Normal 137-145 [facility] Comment on above: Performed By: #### L IPID, CMP #### [facility] [address] [place] [address] Dr. Idania Tai Urea nitrogen [Mass/Vol] 12.0 mg/dL Normal 7.0-18.0 [facility] Comment on above: Performed By: #### L IPID, CMP #### [facility] [address] [place] [address] Dr. Idania Tai Urea nitrogen/Creatinine [Mass ratio] 17.9 mg/mg Normal [facility] Comment on above: Performed By: #### L IPID, CMP #### [facility] [address] [place] [address] Dr. Idania Tai Vital Signs Date Time Vital Sign Value Performing Clinician Facility 10-08-2024 15:51-0400 Body mass index (BMI) [Ratio] 38.8 kg/m2 Luci Alexsandrahholz [employer]ER Work Phone: [facility] 10-08-2024 15:51-0400 Body temperature 98.71 [degF] Luci Aichholz [employer] Work Phone: [facility] 10-08-2024 15:51-0400 Body weight 109.05 kg Luci Aichholz [employer] Work Phone: [facility] 10-08-2024 15:51-0400 Diastolic blood pressure 80 mm[Hg] Luci Aichholz [employer] Work Phone: [facility] 10-08-2024 15:51-0400 Heart rate 67 /min Luci Aichholz [employer] Work Phone: [facility] 10-08-2024 15:51-0400 Respiratory rate 20 /min Luci Aichholz [employer] Work Phone: [facility] 10-08-2024 15:51-0400 SaO2% (BldA) [Mass fraction] 95 % Luci Aichholz [employer] Work Phone: [facility] 10-08-2024 15:51-0400 Systolic blood pressure 130 mm[Hg] Luci Aichholz [employer] Work Phone: [facility] 09-17-2024 16:06-0400 Body mass index (BMI) [Ratio] 38.54 kg/m2 Luci Aichholz [employer] Work Phone: [facility] 09-17-2024 16:06-0400 Body temperature 98.1 [degF] Luci Aichholz [employer] Work Phone: [facility] 09-17-2024 16:06-0400 Body weight 108.32 kg Luci Aichholz [employer] Work Phone: [facility] 09-17-2024 16:06-0400 Diastolic blood pressure 82 mm[Hg] Luci Aichholz [employer] Work Phone: [facility] 09-17-2024 16:06-0400 Heart rate 66 /min Luci Rios [employer] Work Phone: [facility] 09-17-2024 16:06-0400 Respiratory rate 18 /min Luci Rios [employer] Work Phone: [facility] 09-17-2024 16:06-0400 SaO2% (BldA) [Mass fraction] 97 % Luci Rios [employer] Work Phone: [facility] 09-17-2024 16:06-0400 Systolic blood pressure 140 mm[Hg] Luci Rios [employer]ER Work Phone: [facility] 08-24-2024 15:27-0400 Body height 167.6 cm Abisai Boateng DPM Work Phone: [facility] 08-24-2024 15:27-0400 Body mass index (BMI) [Ratio] 39.09 kg/m2 Abisai Boateng DPM Work Phone: [facility] 08-24-2024 15:27-0400 Body weight 109.86 kg Abisai Boateng DPM Work Phone: [facility] 07-29-2024 15:27-0500 Body height 167.6 cm Luci Rios [employer] Work Phone: [facility] 07-29-2024 15:27-0500 Body mass index (BMI) [Ratio] 39.29 kg/m2 Luci Rios [employer] Work Phone: [facility] 07-29-2024 15:27-0500 Body temperature 97.81 [degF] Luci Rios [employer] Work Phone: [facility] 07-29-2024 15:27-0500 Body weight 110.41 kg Luci Rios [employer] Work Phone: [facility] 07-29-2024 15:27-0500 Diastolic blood pressure 120 mm[Hg] Luci Goinsruddy [employer]ER Work Phone: [facility] 07-29-2024 15:27-0500 Heart rate 76 /min Luci Rios [employer] Work Phone: [facility] 07-29-2024 15:27-0500 Respiratory rate 20 /min Luci Rios [employer] FIN[employer] Work Phone: [facility] 07-29-2024 15:27-0500 SaO2% (BldA) [Mass fraction] 97 % Luci Rios [employer] FIN[employer]ER Work Phone: [facility] 07-29-2024 15:27-0500 Systolic blood pressure 172 mm[Hg] Luci Jollyz [employer]ER Work Phone: [facility] 04-27-2024 15:05-0500 Body height 167.6 cm Marquis Velasquez [employer]ER Work Phone: [facility] 04-27-2024 15:05-0500 Body mass index (BMI) [Ratio] 38.41 kg/m2 Marquis Velasquez [employer] Work Phone: [facility] 04-27-2024 15:05-0500 Body weight 107.96 kg Marquis Velasquez [employer]OTT[employer] Work Phone: [facility] 04-27-2024 15:05-0500 Diastolic blood pressure 90 mm[Hg] Marquis Velasquez [employer] Work Phone: [facility] 04-27-2024 15:05-0500 Heart rate 67 /min Marquis Velasquez [employer] Work Phone: [facility] 04-27-2024 15:05-0500 Respiratory rate 14 /min Marquis Velasquez [employer] Work Phone: [facility] 04-27-2024 15:05-0500 SaO2% (BldA) [Mass fraction] 98 % Marquis Velasquez [employer] Work Phone: [facility] 04-27-2024 15:05-0500 Systolic blood pressure 138 mm[Hg] Marquis Velasquez [employer]ER Work Phone: [facility] 02-24-2024 15:32-0400 Body height 167.6 cm Abisai Boateng DPM Work Phone: [facility] 02-24-2024 15:32-0400 Body mass index (BMI) [Ratio] 39.22 kg/m2 Abisai Boateng DPM Work Phone: [facility] 02-24-2024 15:32-0400 Body weight 110.22 kg Abisai Boateng DPM Work Phone: [facility] 01-22-2024 15:57-0400 Body height 167.6 cm Marquis Velasquez [employer]ER Work Phone: [facility] 01-22-2024 15:57-0400 Body mass index (BMI) [Ratio] 39.22 kg/m2 Marquis Velasquez [employer] Work Phone: [facility] 01-22-2024 15:57-0400 Body temperature 98.29 [degF] Marquis Velasquez [employer]OTT[employer]ER Work Phone: [facility] 01-22-2024 15:57-0400 Body weight 110.22 kg Marquis Velasquez [employer]OTT[employer]ER Work Phone: [facility] 01-22-2024 15:57-0400 Diastolic blood pressure 78 mm[Hg] Marquis Velasquez [employer]OTT[employer]ER Work Phone: [facility] 01-22-2024 15:57-0400 Heart rate 61 /min Marquis Velasquez [employer]OTT[employer]ER Work Phone: [facility] Comment on above: 98% O2 01-22-2024 15:57-0400 Systolic blood pressure 112 mm[Hg] Marquis Velasquez [employer]OTT[employer]ER Work Phone: [facility] 09-10-2022 13:15-0400 Diastolic blood pressure 64 mm[Hg] MD Shaikh Baker Work Phone: [facility] 09-10-2022 13:15-0400 Heart rate 54 /min MD Shaikh Baker Work Phone: [facility] 09-10-2022 13:15-0400 Respiratory rate 16 /min MD Shaikh Baker Work Phone: [facility] 09-10-2022 13:15-0400 SaO2% (BldA) [Mass fraction] 97 % MD Shaikh Baker Work Phone: [facility] 09-10-2022 13:15-0400 Systolic blood pressure 100 mm[Hg] MD Shaikh Baker Work Phone: [facility] 09-10-2022 12:25-0400 Body temperature 97.5 [degF] MD Shaikh Baker Work Phone: [facility] 09-10-2022 11:55-0400 Inhaled oxygen flow rate 8 L/min MD Shaikh Baker Work Phone: [facility] 09-10-2022 10:54-0400 Body height 165.1 cm MD Shaikh Baker Work Phone: [facility] 09-10-2022 10:54-0400 Body mass index (BMI) [Ratio] 38.6 kg/m2 MD Shaikh Baker Work Phone: [facility] 09-10-2022 10:54-0400 Body weight 105.4 kg MD Shaikh Baker Work Phone: [facility] 12-22-2021 10:00-0400 Diastolic blood pressure 87 mm[Hg] MD Sav Andrews Work Phone: [facility] 12-22-2021 10:00-0400 Heart rate 54 /min MD Sav Andrews Work Phone: [facility] 12-22-2021 10:00-0400 Respiratory rate 18 /min MD Sav Andrews Work Phone: [facility] 12-22-2021 10:00-0400 SaO2% (BldA) [Mass fraction] 100 % MD Sav Andrews Work Phone: [facility] 12-22-2021 10:00-0400 Systolic blood pressure 139 mm[Hg] MD Sav Andrews Work Phone: [facility] 12-22-2021 07:37-0400 Body height 170.18 cm MD Sav Andrews Work Phone: [facility] 12-22-2021 07:37-0400 Body temperature 97.9 [degF] MD Sav Andrews Work Phone: [facility] 12-22-2021 07:37-0400 Body weight 81.64 kg MD Sav Andrews Work Phone: [facility] Encounters Encounter Date Encounter Type Care Provider Facility Start: 10-08-2024 End: 10-08-2024 Office outpatient visit 25 minutes Luci Rios [employer]ER Work Phone: [facility] Comment on above: Type 2 diabetes addy itus without complication, with long-term current use of insulin (Primary Dx); Type 2 diabetes mellitus with diabetic polyneuropathy, with long-term current use of insulin (CMS/HCC); Primary hypertension (CMS/HCC); Edema of both lower extremities; MCFP (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 (CMS/HCC); Morbid (severe) obesity due to excess calories (CMS/HCC); Severe persistent asthma without complication (CMS/HCC); Elevated serum creatinine Start: 10-08-2024 End: 10-08-2024 ambulatory LUCI AICHHOLZ Not Available Start: 10-08-2024 End: 10-08-2024 Bamboo flowsheet Luci Aichholz BOTT[employer] FINISHER Work Phone: [facility] Start: 10-08-2024 End: 10-08-2024 Bamboo flowsheet Luci Aichholz BOTTOM FINISHER Work Phone: [facility] Start: 09-17-2024 End: 09-17-2024 ambulatory LUCI RIKZ Not Available Start: 09-17-2024 End: 09-17-2024 Office outpatient visit 25 minutes Luci Rikz [employer]OTT[employer] FINISHER Work Phone: [facility] Comment on above: Elevated serum creat inine (Primary Dx); Primary hypertension (CMS/HCC); Type 2 diabetes mellitus without complication, with long-term current use of insulin Start: 09-17-2024 End: 09-17-2024 Bamboo flowsheet Luci Aichholz BOTTOM FINISHER Work Phone: [facility] Start: 09-17-2024 End: 09-17-2024 Bamboo flowsheet Luci Alexsandrahholz BOTTOM FINISHER Work Phone: [facility] Start: 09-09-2024 End: 09-09-2024 Clinisync Result Encounter Luci Alexsandrahholz BOTTOM FINISHER Work Phone: [facility] Unsolicited Start: 09-09-2024 End: 09-09-2024 Clinisync Result Encounter Luci Briseidaholz [employer]OTT[employer] FINISHER Work Phone: [facility] Unsolicited Start: 08-31-2024 End: 08-31-2024 Orders Only Luci Alexsandrahholz BOTTOM FINISHER Work Phone: [facility] Comment on above: Elevated serum creat inine (Primary Dx) Start: 08-29-2024 End: 08-29-2024 Clinisync Result Encounter Luci Alexsandrahholz BOTTOM FINISHER Work Phone: [facility] Unsolicited Start: 08-29-2024 End: 08-29-2024 Clinisync Result Encounter Luci Aichholz BOTTOM FINISHER Work Phone: [facility] Unsolicited Start: 08-24-2024 End: 08-24-2024 Office outpatient visit 15 minutes Abisai Boateng DPM Work Phone: [facility] Comment on above: Onychodystrophy ([facility] hilda Dx); Onychomycosis; Type 2 diabetes mellitus with diabetic polyneuropathy, with long-term current use of insulin (CMS/HCC) Start: 08-24-2024 End: 08-24-2024 ambulatory ABISAI BOATENG Not Available Start: 08-24-2024 End: 08-24-2024 Bamboo flowsheet Abisai Boateng DPM Work Phone: [facility] Start: 08-24-2024 End: 08-24-2024 Bamboo flowsheet Abisai Boateng DPM Work Phone: [facility] Start: 08-19-2024 End: 08-19-2024 Orders Only Luci Rios BOTTOM FINISHER Work Phone: [facility] Comment on above: Elevated serum creat inine (Primary Dx) Start: 08-18-2024 End: 08-18-2024 ambulatory LUCI AICHHOLZ Not Available Start: 07-29-2024 End: 07-29-2024 Office outpatient visit 25 minutes Luci Rios BOTTOM FINISHER Work Phone: 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); Type 2 diabetes mellitus with diabetic polyneuropathy, with long-term current use of insulin (CMS/HCC); Severe persistent asthma without complication (CMS/HCC); Mixed hyperlipidemia (CMS/HCC) Start: 07-29-2024 End: 07-29-2024 ambulatory LUCI AICHHOLZ Not Available Start: 07-29-2024 End: 07-29-2024 Bamboo flowsheet Luci Aicmarkyz [employer]OTT[employer] FINISHER Work Phone: [facility] Start: 07-29-2024 End: 07-29-2024 Bamboo flowsheet Luci Goinsruddy [employer]OTT[employer] FINISHER Work Phone: [facility] Start: 07-18-2024 End: 07-18-2024 Clinisync Result Encounter Marquis Velasquez BOTTOM FINISHER Work Phone: [facility] Unsolicited Start: 07-18-2024 End: 07-18-2024 Clinisync Result Encounter Marquis Velasquez BOTTOM FINISHER Work Phone: [facility] Unsolicited Start: 06-13-2024 End: 06-16-2024 Refill Marquis Velasquez BOTTOM FINISHER Work Phone: [facility] Comment on above: Severe persistent as thma without complication (CMS/HCC) Start: 05-06-2024 End: 05-06-2024 Refill Cassie Stroud MA [facility] Comment on above: Type 2 diabetes addy itus with diabetic polyneuropathy, with long-term current use of insulin (CMS/HCC) (Primary Dx) Start: 04-27-2024 End: 04-27-2024 Office outpatient visit 15 minutes Marquis Vailtrick [employer]OTT[employer] FINISHER Work Phone: [facility] Comment on above: Type 2 diabetes addy itus with diabetic polyneuropathy, with long-term current use of insulin (CMS/HCC) (Primary Dx); Resistant hypertension (CMS/HCC); Gastroesophageal reflux disease without esophagitis Start: 04-27-2024 End: 04-27-2024 ambulatory MARQUIS VELASQUEZ Not Available Start: 04-27-2024 End: 04-27-2024 Bamboo flowsheet Marquis Velasquez BOTTOM FINISHER Work Phone: [facility] Start: 04-27-2024 End: 04-27-2024 Bamboo flowsheet Marquis Velasquez BOTTOM FINISHER Work Phone: [facility] Start: 03-18-2024 End: 03-19-2024 Refill Marquis Velasquez BOTTOM FINISHER Work Phone: [facility] Comment on above: Type 2 diabetes addy itus without complication, with long-term current use of insulin (CMS/HCC) Start: 02-24-2024 End: 02-24-2024 Office outpatient new 30 minutes Abisai Boateng DPM Work Phone: [facility] Comment on above: Onychodystrophy ([facility] Dx); Type 2 diabetes mellitus with diabetic polyneuropathy, with long-term current use of insulin (CMS/HCC); Onychomycosis Start: 02-24-2024 End: 02-24-2024 ambulatory ABISAI BOATENG Not Available Start: 02-24-2024 End: 02-24-2024 Bamboo flowsheet Abisai Boateng DPM Work Phone: [facility] Start: 02-24-2024 End: 02-24-2024 Bamboo flowsheet Abisai Boateng DPM Work Phone: [facility] Start: 01-25-2024 End: 01-25-2024 Clinisync Result Encounter Shaikh Samuel GUPTA Work Phone: [facility] External Department Unsolicited Start: 01-25-2024 End: 01-25-2024 Clinisync Result Encounter Shaikh Samuel GUPTA Work Phone: [facility] External Department Unsolicited Start: 01-22-2024 End: 01-22-2024 Office outpatient visit 25 minutes Marquis Velasquez BOTTOM FINISHER Work Phone: [facility] Comment on above: Type 2 diabetes [...] 01-22-2024 End: 01-22-2024 Bamboo flowsheet Marquis Velasquez BOTTOM FINISHER Work Phone: [facility] Start: 01-22-2024 End: 01-22-2024 Bamboo flowsheet Marquis Velasquez BOTTOM FINISHER Work Phone: [facility] Start: 10-24-2023 End: 10-24-2023 ambulatory SHAIKH SAMUEL Not Available Start: 09-10-2022 End: 09-10-2022 ambulatory Silver Briceño Facility:[facility] Start: 09-10-2022 End: 09-10-2022 Admission to same day surgery center MD Shaikh Baker Work Phone: [facility] [place] Start: 09-10-2022 End: 09-10-2022 ambulatory MD Shaikh Baker Work Phone: [facility] Work Phone: Start: 08-30-2022 End: 08-30-2022 ambulatory Silver Alcantaraurora Facility:[facility] [place] Start: 08-30-2022 End: 08-30-2022 ambulatory MD Shaikh Baker Work Phone: [facility] Work Phone: Start: 08-30-2022 End: 08-30-2022 Patient encounter procedure MD Shaikh Baker Work Phone: [facility] [facility] Work Phone: Start: 07-07-2022 End: 07-08-2022 ambulatory SHAIKH Adan BAKER Facility:[facility] Start: 03-13-2022 End: 03-14-2022 ambulatory SHAIKH Adan BAKER Facility:[facility] Start: 12-22-2021 End: 12-22-2021 ambulatory Sav Andrews Facility:[facility] [place] Start: 12-22-2021 End: 12-22-2021 Admission to same day surgery center MD Sav Andrews Work Phone: [facility] Start: 12-20-2021 End: 12-20-2021 ambulatory Sav Andrews Facility:[facility] [place] Start: 12-20-2021 End: 12-20-2021 Patient encounter procedure MD Sav Andrews Work Phone: [facility] [employer] [facility] Start: 11-14-2021 End: 11-15-2021 ambulatory REY PEREZ Facility:[facility] Start: 10-25-2021 End: 10-26-2021 ambulatory REY PEREZ Facility:[facility] Start: 09-11-2021 End: 09-12-2021 ambulatory SHAIKH Adan BAKER Facility:[facility] Start: 09-05-2021 End: 09-06-2021 ambulatory LIZETH MARTIN Facility:[facility] Start: 08-03-2021 End: 08-03-[address] ASA AL Facility:[facility] Procedures Date Procedure Procedure Detail Performing Clinician Start: 09-09-2024 ALL BASIC METABOLIC PANEL Luci Rikz BOTTOM FINISHER Work Phone: Start: 08-29-2024 ALL BASIC METABOLIC PANEL Luci Aichholz BOTTOM FINISHER Work Phone: Start: 07-30-2024 Colonoscopy Luci Erma flores BOTTOM FINISHER Work Phone: Start: 07-18-2024 ALL CBC WITH AUTO DIFF Marquis Velasquez BOTTOM FINISHER Work Phone: Start: 01-25-2024 ALL LIPID PROFILE (FASTING) Shaikh Samuel GUPTA Work Phone: Start: 01-25-2024 [facility] CMP (CMP) (FOR R EMOTE [facility] USE) Shaikh Samuel GUPTA Work Phone: Start: 09-10-2022 Hemorrhoidectomy MD Beltran Baker Work Phone: Start: 01-26-2022 Colonoscopy Marquis hurley NP Work Phone: Start: 12-22-2021 Screening colonoscopy Ev Andrews Work Phone: SARS Antigen (LFIA) MD Dill on Darryl Work Phone: Plan of Treatment Date Care Activity Detail Author Start: 07-30-2034 Screening for malign ant neoplasm of colon [facility] Start: 01-27-2032 Screening for malign ant neoplasm of colon [facility] Start: 08-29-2025 Glaucoma screening Diabetes: R etinopathy Screening [facility] Start: 07-18-2025 Urine screening for protein Diabetes: Urine Protein Screening [facility] Start: 02-23-2025 End: 02-23-2025 Patient encounter procedure 02/23/2025 3:15 PM EDT Procedure Visit [facility] [address] [place] [phone] Abisai Boateng, DP [address] [place] [address] [facility] Start: 11-19-2024 End: 11-19-2024 Patient encounter procedure 11/19/2024 3:40 PM EDT Office Visit [facility] [address] [place] [phone] Luci Rios NP [address] [place] [phone] [facility] Start: 10-15-2024 Hemoglobin A1c measurement Diabetes: Hemoglobin A1C [facility] Start: 10-08-2024 End: 10-08-2024 Patient encounter procedure [facility] Comment on above: Type 2 diabetes addy itus with diabetic polyneuropathy, with long-term current use of insulin (CMS/HCC) (Primary Dx); Primary hypertension (CMS/HCC); Edema of both lower extremities; MCFP (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 (CMS/HCC); Morbid (severe) obesity due to excess calories ([facility]); Type 2 diabetes mellitus without complication, with long-term current use of insulin; Severe persistent asthma without complication ([facility]/HCC) Start: 09-17-2024 End: 09-17-2025 Basic metabolic 1997 panel - Serum or Plasma Basic metabolic panel Lab Routine Primary hypertension ([facility]) Type 2 diabetes mellitus without complication, with long-term current use of insulin Expected: 09/17/2024 (Approximate), Expires: 09/17/2025 [facility] Work Phone: Comment on above: Expected: 09/17/2024 (Approximate), Expires: 09/17/2025 Start: 09-17-2024 End: 09-17-2025 US Kidney US renal complete Imaging Routine Elevated serum creatinine Primary hypertension ([facility]) Type 2 diabetes mellitus without complication, with long-term current use of insulin Expected: 09/17/2024, Expires: 09/17/2025 [facility] Comment on above: Expected: 09/17/2024 , Expires: 09/17/2025 Start: 09-14-2024 End: 08-31-2025 Basic metabolic 1997 panel - Serum or Plasma Basic metabolic panel Lab Routine Elevated serum creatinine Expected: 09/14/2024 (Approximate), Expires: 08/31/2025 [facility] Work Phone: Comment on above: Expected: 09/14/2024 (Approximate), Expires: 08/31/2025 Start: 08-29-2024 Glaucoma screening Diabetes: R etinopathy Screening [facility] Start: 08-26-2024 End: 08-19-2025 Basic metabolic 1997 panel - Serum or Plasma Basic metabolic panel Lab Routine Elevated serum creatinine Expected: 08/26/2024 (Approximate), Expires: 08/19/2025 [facility] Work Phone: Comment on above: Expected: 08/26/2024 (Approximate), Expires: 08/19/2025 Start: 08-24-2024 End: 08-24-2024 Patient encounter procedure [facility] Comment on above: Arrived Start: 08-18-2024 End: 08-18-2024 Patient encounter procedure 08/18/2024 3:00 PM EDT Office Visit [facility] [address] [place] [phone] Luci Rios NP [address] [place] [address] [facility] Start: 08-07-2024 Urine screening for protein Diabetes: Urine Protein Screening [facility] Start: 07-29-2024 End: 07-29-2024 Patient encounter procedure [facility] Comment on above: Type 2 diabetes addy itus with diabetic polyneuropathy, with long-term current use of insulin (CMS/HCC) (Primary Dx); Type 2 diabetes mellitus without complications (CMS/HCC); MCFP (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 (CMS/HCC); Morbid (severe) obesity due to excess calories (CMS/HCC); Gastro-esophageal reflux disease without esophagitis; Body mass index (BMI) 38.0-38.9, adult; 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); Severe persistent asthma without complication (CMS/HCC); Primary hypertension (CMS/HCC); Mixed hyperlipidemia (CMS/HCC) Start: 07-28-2024 End: 07-28-2024 Patient encounter procedure 07/28/2024 4:00 PM EST Office Visit [facility] [address] [place] [address] Marquis Velasquez NP [address] [place] [phone] [facility] Start: 07-26-2024 End: 04-27-2025 CBC W Auto Differential panel - Blood CBC and differential Lab Routine Type 2 diabetes mellitus with diabetic polyneuropathy, with long-term current use of insulin (CMS/HCC) Resistant hypertension (CMS/HCC) Expected: 07/26/2024 (Approximate), Expires: 04/27/2025 [facility] Comment on above: Expected: 07/26/2024 (Approximate), Expires: 04/27/2025 Start: 07-26-2024 End: 04-27-2025 Comprehensive metabolic 2000 panel - Serum or Plasma Comprehensive metabolic panel Lab Routine Type 2 diabetes mellitus with diabetic polyneuropathy, with long-term current use of insulin (CMS/HCC) Resistant hypertension (CMS/HCC) Expected: 07/26/2024 (Approximate), Expires: 04/27/2025 [facility] Comment on above: Expected: 07/26/2024 (Approximate), Expires: 04/27/2025 Start: 07-26-2024 End: 04-27-2025 Hemoglobin A1c/Hemoglobin.total in Blood Hemoglobin A1c Lab Routine Type 2 diabetes mellitus with diabetic polyneuropathy, with long-term current use of insulin (CMS/HCC) Resistant hypertension (CMS/HCC) Expected: 07/26/2024 (Approximate), Expires: 04/27/2025 [facility] Comment on above: Expected: 07/26/2024 (Approximate), Expires: 04/27/2025 Start: 07-26-2024 End: 04-27-2025 Microalbumin/Creatinine panel in random Urine Microalbumin / creatinine urine ratio Lab Routine Type 2 diabetes mellitus with diabetic polyneuropathy, with long-term current use of insulin (CMS/HCC) Resistant hypertension (CMS/HCC) Expected: 07/26/2024 (Approximate), Expires: 04/27/2025 [facility] Work Phone: Comment on above: Expected: 07/26/2024 (Approximate), Expires: 04/27/2025 Start: 04-27-2024 End: 04-27-2024 Patient encounter procedure [facility] Comment on above: Arrived Start: 04-22-2024 End: 04-22-2024 Patient encounter procedure 04/22/2024 3:30 PM EST Office Visit [facility] [address] [place] [address] Marquis Velasquez NP [address] [place] [address] [facility] Start: 02-24-2024 End: 02-24-2024 Patient encounter procedure 02/24/2024 3:30 PM EDT Office Visit [facility] [address] [facility] [phone] Abisai Boateng DPEv [address] [place], [place] [phone] Type 2 diabetes mellitus with diabetic polyneuropathy, with long-term current use of insulin ([facility]) [facility] Comment on above: Type 2 diabetes addy itus with diabetic polyneuropathy, with long-term current use of insulin ([facility]/HCC) Start: 01-26-2024 Influenza vaccination Influenza Vacc ine (#1) [facility] Start: 01-22-2024 End: 01-22-2024 Patient encounter procedure 01/22/2024 4:00 PM EDT Office Visit [facility] [address] [place] [phone] Marquis Velasquez NP [address] [place] [address] Type 2 diabetes mellitus with diabetic polyneuropathy, with long-term current use of insulin (CMS/HCC) (Primary Dx); Severe persistent asthma without complication (CMS/HCC); Resistant hypertension (CMS/HCC); Gastroesophageal reflux disease without esophagitis; Mixed hyperlipidemia (CMS/HCC) [facility] Comment on above: Type 2 diabetes addy itus with diabetic polyneuropathy, with long-term current use of insulin ([facility]/HCC) (Primary Dx); Severe persistent asthma without complication (CMS/HCC); Resistant hypertension (CMS/HCC); Gastroesophageal reflux disease without esophagitis; Mixed hyperlipidemia (CMS/HCC) Start: 11-08-2023 Hemoglobin A1c measurement Diabetes: Hemoglobin A1C [facility] Start: 09-10-2022 End: 09-10-2022 [facility] Start: 12-22-2021 [facility] Work Phone: Start: 1965 Screening for malign ant neoplasm of colon [facility] Patient Education Hemorrhoids [facility] Work Phone: Immunizations Immunization Date Immunization Notes Care Provider [facility] 05-28-2024 influenza, seasonal, injectable, preservative free Luci Aichholz BOTTOM FINISHER Work Phone: [facility] 05-28-2024 measles, mumps and rubella virus vaccine Luci Aichholz BOTTOM FINISHER Work Phone: [facility] 05-28-2024 Pneumococcal conjuga te vaccine, 21 valent (PCV21), polysaccharide [id number] conjugate, preservative free Luci Aichholz BOTTOM FINISHER Work Phone: [facility] 05-28-2024 influenza virus vaccine, unspecified formulation Luci Aichholz BOTTOM FINISHER Work Phone: [facility] 03-23-2022 tetanus toxoid, redu bj diphtheria toxoid, and acellular pertussis vaccine, adsorbed Marquis Velasquez BOTTOM FINISHER Work Phone: [facility] 03-23-2022 zoster vaccine recombinant Marquis Velasquez BOTTOM FINISHER Work Phone: [facility] 03-13-2022 influenza, seasonal, injectable Luci Aichholz BOTTOM FINISHER Work Phone: [facility] 05-10-2021 Influenza, injectabl e, Madin [place] Canine Kidney, preservative free, quadrivalent Marquis Velasquez BOTTOM FINISHER Work Phone: [facility] 05-10-2021 influenza virus vaccine, unspecified formulation Marquis Velasquez BOTTOM FINISHER Work Phone: [facility] 10-10-2020 COVID-19 mRNA Comirnatjoey (Pfizer) MD Sav Andrews Work Phone: [facility] 09-19-2020 COVID-19 mRNA Comirnatjoey (Pfizer) MD Sav Andrews Work Phone: [facility] 02-17-2020 Influenza, injectabl e, Madin [place] Canine Kidney, preservative free, quadrivalent Marquis Velasquez BOTTOM FINISHER Work Phone: [facility] 03-09-2019 influenza, seasonal, injectable Marquis Velasquez BOTTOM FINISHER Work Phone: [facility] 03-12-2017 influenza, injectabl e, quadrivalent, preservative free Marquis Velasquez BOTTOM FINISHER Work Phone: [facility] Payers Date Payer Category Payer [facility] BCBS [id number] 2022 Unknown BCBS BCBS [id number] 2022-Present [phone] [address] [place], [place] [address] [id number] 2021 Self-pay [id number] 1966 Unknown [id number] 2.16.840.1.290853.3.579. 2.59 1966 Unknown [id number] .16.840.1.906339.3.579. 2.59 1966 Unknown [id number] 2.16.840.1.464369.3.579. 2.59 1966 Unknown [id number] 2.16.840.1.642352.3.579. 2.593 1966 Unknown [id number] 2.16.840.1.947679.3.579. 2.593 1966 Unknown [id number] 2.16.840.1.426681.3.579. 2.593 1966 Unknown [id number] 2.16.840.1.249320.3.579. 2.593 1966 Unknown [id number] 2.16.840.1.908247.3.579. 2.1258 1966 Unknown [id number] 2.16.840.1.658018.3.579. 2.125 1966 Unknown [id number] 2.16.840.1.121649.3.579. 2.1258 1966 Unknown [id number] 2.16.840.1.405617.3.579. 2.1258 1966 Unknown [id number] 2.16.840.1.258845.3.579. 2.1258 1966 Unknown [id number] 2.16.840.1.626269.3.579. 2.1258 1966 Unknown [id number] 2.16.840.1.846114.3.579. 2.1258 1966 Unknown [id number] 2.16.840.1.323852.3.579. 2.1258 1966 Unknown [id number] 2.16.840.1.461824.3.579. 2.1259 1959 Unknown [id number] Unknown [id number] 2.16.840.1.536885.3.579. 2.531 Unknown [id number] 2.16.840.1.379628.3.579. 2.531 Unknown [id number] 2.16.840.1.441476.3.579. 2.531 Unknown [id number] 2.16.840.1.343349.3.579. 2.531 Social History Date Type Detail Facility Start: 12-22-2021 End: 08-07-2023 Tobacco smoking status NHIS Ex-smoker (finding) [facility] Start: 1965 Sex Assigned At Male F [facility] History of tobacco use Current smoker [facility] History of tobacco use Cigarette Smoker [facility] History of tobacco use Passive smoker [facility] Start: 08-07-2023 Tobacco use and exposure Smoke less tobacco non-user [facility] Start: 02-24-2024 End: 10-08-2024 Alcoholic beverage intake Lifetime non-drinker (finding) [facility] [...] to any clubs or organizations such as rastafari groups, unions, fraternal or athletic groups, or [...] Not at all [facility] (I/We) worried wheshirin er (my/our) food would run out before (I/we) got money to buy more. Never true [facility] In the past 12 month s, was there a time when you were not able to pay the mortgage or rent on time? No [facility] Start: 1965 Sex assigned at Not on file [facility] How often do you nee d to have someone help you when you read instructions, pamphlets, or other written material from your doctor or pharmacy [SILS] Sometimes [facility] Medical Equipment Procedure Code Equipment Code Equipment Origin al Text Equipment Identifier Dates Daily [id number] Start: 10-24-2023 End: 10-23-2024 Daily [id number] Start: 04-27-2024 End: 04-27-2025 Goals Date Patient Goal Desired Activity /State Clinical Notes 09-05-2021 to 10-08-2024 Luci Rios NP - 10/08/2024 4:18 PM EDREHKA VIDAL - 10/08/2024 3:40 PM Terra Rios NP - 10/08/2024 3:40 PM Terra Rios NP - 10/08/2024 7:09 AM EDTPatient Instructions Note Date & Type Note Facility 10-08-2024 History of Present illness Narrative Associated Problem(s): Elevated serum creatinine Recheck labs, still has not heard anything about renal US at [facility] We will refax Pt has not eaten since 10-10:30 am Era: 83 Glucose: 80 States he will eat again around 6/7PM Images from the original note were not included. Dante Dewey is a 59 y.o. male presents with chief complaint of Hypertension HPI: CGM reads: 7 day av 14 day av 30 day av 90 day av Time in range: 3 day 90%, 14 day 86%, 30 day 78%, 90 day 60% GMI 6.5% (3) 7.5% (90) Hypertension This is a chronic problem. The current episode started more than 1 year ago. The problem is unchanged. The problem is controlled. Associated symptoms include peripheral edema. Pertinent negatives include no palpitations or shortness of breath. There are no associated agents to hypertension. Risk factors for coronary artery disease include diabetes mellitus, dyslipidemia, male gender, obesity and sedentary lifestyle. Past treatments include beta blockers, calcium channel blockers, diuretics and angiotensin blockers. The current treatment provides significant improvement. Hypertensive end-organ damage includes kidney disease. SUBJECTIVE: MEDICATIONS: Current Outpatient Medications Medication Instructions albuterol HFA 90 mcg/act inhaler 2 puffs, Inhalation, Every 4 hours PRN amLODIPine (NORVASC) 10 mg, Oral, Daily aspirin 81 mg, Oral, Daily RT atorvastatin (LIPITOR) 40 mg, Oral, Daily carvedilol (COREG) 25 mg, Oral, 2 times daily with meals Continuous Glucose Polisher Hand (FreeStyle Era 2 Gem) device 1 each, Does not apply, 4 times daily Continuous Glucose Sensor (FreeStyle Era 3 Plus Sensor) [facility] USE 1 SENSOR EVERY 15 DAYS TO MONITOR BLOOD SUGAR. dapagliflozin (FARXIGA) 5 mg, Oral, Daily Wrdhafhteqj-Nghwdbekg-Cfcpbj (Trelegy Ellipta) 200-62.5-25 MCG/ACT aerosol powder 1 puff, Inhalation, Daily, INHALE 1 PUFF ONCE DAILY, rinse mouth after use glipiZIDE (GLUCOTROL) 5 mg, Oral, 2 times daily before meals insulin glargine-yfgn (SEMGLEE (YFGN)) 20 Units, Subcutaneous, Nightly insulin pen needle (B-D ULTRAFINE III SHORT PEN) 31G X 8 mm [facility] Daily losartan-hydroCHLOROthiazide (Hyzaar) 100-25 MG tablet 1 tablet, Oral, Daily metFORMIN (GLUCOPHAGE) 850 mg, Oral, 2 times daily with meals omeprazole (PRILOSEC) 40 mg, Oral, Daily before breakfast spironolactone (ALDACTONE) 100 mg, Oral, Daily ALLERGIES: No Known Allergies REVIEW OF SYMPTOMS: Review of Systems Constitutional: Negative for activity change, appetite change and unexpected weight change. HENT: Negative for ear pain, nosebleeds, sneezing, trouble swallowing and voice change. Eyes: Negative for pain, discharge and visual disturbance. Respiratory: Negative for apnea, chest tightness, shortness of breath and wheezing. Cardiovascular: Positive for leg swelling. Negative for palpitations. Gastrointestinal: Negative for abdominal distention, blood in stool, constipation and diarrhea. Genitourinary: Negative for decreased urine volume, difficulty urinating, dysuria and hematuria. Skin: Negative for color change. Neurological: Negative for dizziness, tremors and seizures. Psychiatric/Behavioral: Negative for agitation, decreased concentration, hallucinations, self-injury and suicidal ideas. The patient is not nervous/anxious. Hematological: Negative for adenopathy. Does not bruise/bleed easily. Endocrine: Negative for cold intolerance, heat intolerance, polydipsia and polyuria. Allergic/Immunologic: Negative for environmental allergies and food allergies. PAST MEDICAL HISTORY Past Medical History: Diagnosis Date AYESHA (acute kidney injury) ([facility]) Arthritis of ankle, right Asthma Avascular necrosis of talus, right (CMS/HCC) Dietrich cyst, right Enlarged and hypertrophic nails Eosinophilia Equinus contracture of right ankle Gastroesophageal reflux disease Hemorrhoids Hyperlipemia, mixed ([facility]) Hypertension ([facility]) Onychomycosis of toenail Osteoarthritis of both knees, unspecified osteoarthritis type Osteochondral defect of talus Pain, foot, right, chronic Peroneal tendinitis, right Right ankle pain Right leg swelling Severe persistent asthma Skin tags, multiple acquired Sprain of right ankle, sequela T2DM (type 2 diabetes mellitus) ([facility]) Past Surgical History: Procedure Laterality Date ANKLE SURGERY Right COLONOSCOPY 2021 HEMORRHOID SURGERY 09/10/2022 banding of hemorrhoids family history includes Diabetes in his sister; Stroke in his father. OBJECTIVE: Visit Vitals BP 130/80 (BP Location: Left arm, Patient Position: Sitting, BP Cuff Size: Large adult) Pulse 67 Temp 98.7 F (Temporal) Resp 20 Wt 240 lb 6.4 oz SpO2 95% BMI 38.80 kg/m Smoking Status Former BSA 2.25 m Physical Exam Vitals and nursing note reviewed. Constitutional: Appearance: Normal appearance. HENT: Head: Normocephalic. Right Ear: External ear normal. Left Ear: External ear normal. Nose: Nose normal. Mouth/Throat: Mouth: Mucous membranes are moist. Pharynx: Oropharynx is clear. Eyes: Extraocular Movements: Extraocular movements intact. Conjunctiva/sclera: Conjunctivae normal. Cardiovascular: Rate and Rhythm: Normal rate and regular rhythm. Pulses: Normal pulses. Heart sounds: Normal heart sounds. Pulmonary: Effort: Pulmonary effort is normal. Breath sounds: Normal breath sounds. Abdominal: General: Bowel sounds are normal. Palpations: Abdomen is soft. Musculoskeletal: Cervical back: Neck supple. Right lower leg: Edema present. Left lower leg: Edema present. Comments: Trace-1+ bilat pre tibial Skin: General: Skin is warm and dry. Capillary Refill: Capillary refill takes 2 to 3 seconds. Neurological: General: No focal deficit present. Mental Status: He is alert. Psychiatric: Mood and Affect: Mood normal. Behavior: Behavior normal. Thought Content: Thought content normal. Judgment: Judgment normal. ASSESSMENT AND PLAN: No follow-ups on file. Problem List Items Addressed This Visit Type 2 diabetes mellitus with diabetic polyneuropathy, with long-term current use of insulin (CMS/HCC) No current treatment Recommend proper fitting toes, freq foot inspections, good glycemic control Severe persistent asthma without complication (CMS/HCC) Relevant Medications Xreparjlehi-Kqpysuerp-Vryaqq (Trelegy Ellipta) 200-62.5-25 MCG/ACT aerosol powder Type 2 diabetes mellitus without complications - Primary Check blood sugars daily, notify if <70 [...] looking great!!! Keep up the great work [facility] (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 (CMS/HCC) Morbid (severe) obesity due to excess calories (CMS/HCC) Discussed with patient their BMI (actual, verses recommended). We have also discussed lifestyle modifications: attempts to perform physical activity as chronic conditions allow, also to monitor dietary intake: increasing protein/fruits/veggies and lowering carb intake (unless contraindicated). Limit sodas, juices, and sugary drinks. Primary hypertension (CMS/HCC) Please check blood pressure daily and record DASH diet Limit caffeine Take medication as directed Contact office if chest pain, pressure, dizziness, shortness of breath, swelling legs Recommend slow position changes Current meds: amlodipine, carvedilol, losartan/hydrochlorothiazide, aldactone Edema of both lower extremities Current meds: aldactone, hydrochlorothiazide in losartan Elevated serum creatinine Recheck labs, still has not heard anything about renal US at [facility] We will refax Associated Problem(s): Type 2 diabetes mellitus without complications Check blood sugars daily, notify if <70 [...] looking great!!! Keep up the great work Associated Problem(s): Morbid (severe) obesity due to excess calories (CMS/HCC) Discussed with patient their BMI (actual, verses recommended). We have also discussed lifestyle modifications: attempts to perform physical activity as chronic conditions allow, also to monitor dietary intake: increasing protein/fruits/veggies and lowering carb intake (unless contraindicated). Limit sodas, juices, and sugary drinks. Associated Problem(s): Edema of both lower extremities Current meds: aldactone, hydrochlorothiazide in losartan Associated Problem(s): Primary hypertension (CMS/HCC) Please check blood pressure daily and record DASH diet Limit caffeine Take medication as directed Contact office if chest pain, pressure, dizziness, shortness of breath, swelling legs Recommend slow position changes Current meds: amlodipine, carvedilol, losartan/hydrochlorothiazide, aldactone Associated Problem(s): Type 2 diabetes mellitus with diabetic polyneuropathy, with long-term current use of insulin ([facility]) No current treatment Recommend proper fitting toes, freq foot inspections, good glycemic control documented in this encounter [facility] 10-08-2024 Instructions Luci Rios NP - 10/08/2024 3:40 PM EDT No dose changes in meds Keep up the great work Order for labs no fasting Number to hospital: [phone] ext [phone] documented in this encounter [facility] 09-17-2024 History of Present illness Narrative Images from the original note were not included. Dante Dewey is a 59 y.o. male presents with chief complaint of No chief complaint on file. HPI: Here early for recheck Persistent elevation in kidney function despite changing dose of diuretics Swelling is better in LE, is wearing compression stocking on RLE Reviewed meds with him to make sure no duplicates etc, he does occ miss second dose of QUILES, and b blanca No chest pain/pressure CGM 7 day: avg 176, 61% in range, 31% high 8% very high 14 day: 172, 62%, 31%, and 7% SUBJECTIVE: MEDICATIONS: Current Outpatient Medications Medication Instructions albuterol HFA 90 mcg/act inhaler 2 puffs, Inhalation, Every 4 hours PRN amLODIPine (NORVASC) 10 mg, Oral, Daily aspirin 81 mg, Oral, Daily RT atorvastatin (LIPITOR) 40 mg, Oral, Daily carvedilol (COREG) 25 mg, Oral, 2 times daily with meals Continuous Glucose Polisher Hand (YuMe Era 2 Gem) device 1 each, Does not apply, 4 times daily Continuous Glucose Sensor (FreeStyle Era 3 Plus Sensor) [facility] USE 1 SENSOR EVERY 15 DAYS TO MONITOR BLOOD SUGAR. dapagliflozin (FARXIGA) 5 mg, Oral, Daily Ikvyvgkwryd-Aocszccul-Tfssys (Trelegy Ellipta) 200-62.5-25 MCG/ACT aerosol powder 1 puff, Inhalation, Daily, INHALE 1 PUFF ONCE DAILY, rinse mouth after use glipiZIDE (GLUCOTROL) 5 mg, Oral, 2 times daily before meals insulin glargine-yfgn (SEMGLEE (YFGN)) 20 Units, Subcutaneous, Nightly insulin pen needle (B-D ULTRAFINE III SHORT PEN) 31G X 8 mm [facility] Daily losartan-hydroCHLOROthiazide (Hyzaar) 100-25 MG tablet 1 tablet, Oral, Daily metFORMIN (GLUCOPHAGE) 850 mg, Oral, 2 times daily with meals omeprazole (PRILOSEC) 40 mg, Oral, Daily before breakfast spironolactone (ALDACTONE) 100 mg, Oral, Daily ALLERGIES: No Known Allergies REVIEW OF SYMPTOMS: Review of Systems Constitutional: Negative for activity change, appetite change and unexpected weight change. HENT: Negative for ear pain, nosebleeds, sneezing, trouble swallowing and voice change. Eyes: Negative for pain, discharge and visual disturbance. Respiratory: Negative for apnea, chest tightness and wheezing. Cardiovascular: Positive for leg swelling. Gastrointestinal: Negative for abdominal distention, blood in stool, constipation and diarrhea. Genitourinary: Negative for decreased urine volume, difficulty urinating, dysuria and hematuria. Skin: Negative for color change. Neurological: Negative for dizziness, tremors and seizures. Psychiatric/Behavioral: Negative for agitation, decreased concentration, hallucinations, self-injury and suicidal ideas. The patient is not nervous/anxious. Hematological: Negative for adenopathy. Does not bruise/bleed easily. Endocrine: Negative for cold intolerance, heat intolerance, polydipsia and polyuria. Allergic/Immunologic: Negative for environmental allergies and food [...] ankle, sequela T2DM (type 2 diabetes mellitus) (CMS/HCC) Past Surgical History: Procedure Laterality Date ANKLE SURGERY Right COLONOSCOPY 2021 HEMORRHOID SURGERY 09/10/2022 banding of hemorrhoids family history includes Diabetes in his sister; Stroke in his father. OBJECTIVE: Visit Vitals BP 140/82 (BP Location: Left arm, Patient Position: Sitting, BP Cuff Size: Large adult) Pulse 66 Temp 98.1 F (Temporal) Resp 18 Wt 238 lb 12.8 oz SpO2 97% BMI 38.54 kg/m Smoking Status Former BSA 2.24 m Physical Exam Vitals and nursing note reviewed. Constitutional: Appearance: Normal appearance. HENT: Head: Normocephalic. Right Ear: External ear normal. Left Ear: External ear normal. Nose: Nose normal. Mouth/Throat: Mouth: Mucous membranes are moist. Pharynx: Oropharynx is clear. Eyes: Extraocular Movements: Extraocular movements intact. Conjunctiva/sclera: Conjunctivae normal. Cardiovascular: Rate and Rhythm: Normal rate and regular rhythm. Pulses: Normal pulses. Heart sounds: Normal heart sounds. Pulmonary: Effort: Pulmonary effort is normal. Breath sounds: Normal breath sounds. No wheezing or rhonchi. Abdominal: General: Bowel sounds are normal. There is no distension. Palpations: Abdomen is soft. Tenderness: There is no abdominal tenderness. Musculoskeletal: Cervical back: Neck supple. Right lower leg: Edema present. Left lower leg: Edema present. Skin: General: Skin is warm and dry. Capillary Refill: Capillary refill takes 2 to 3 seconds. Neurological: General: No focal deficit present. Mental Status: He is alert. Psychiatric: Mood and Affect: Mood normal. Behavior: Behavior normal. Thought Content: Thought content normal. Judgment: Judgment normal. ASSESSMENT AND PLAN: Follow up for Next scheduled follow-up. Problem List Items Addressed This Visit Type 2 diabetes mellitus without complications Relevant Orders Basic metabolic panel US renal complete Primary hypertension (CMS/HCC) Relevant Orders Basic metabolic panel US renal complete Elevated serum creatinine - Primary Relevant Orders US renal complete documented in this encounter [facility] 09-17-2024 Instructions Luci Rios NP - 09/17/2024 4:00 PM EDT No med changes, keep your follow up appt I am going to order an Ultrasound of [facility] Same day as the Ultrasound recheck blood work documented in this encounter [facility] 08-24-2024 History of Present illness Narrative Images from the original note were not included. Subjective Patient ID: Dante Dewey is a 59 y.o. male who presents for DM Foot Care (PCP: Luci Phillips 08/18/24, A1C: 8.3, BS: 142). HPI Established [...] History: Diagnosis Date AYESHA (acute kidney injury) ([facility]/HCC) Arthritis of ankle, right Asthma Avascular necrosis of talus, right ([facility]/HCC) Dietrich cyst, right Enlarged and hypertrophic nails Eosinophilia Equinus contracture of right ankle Gastroesophageal reflux disease Hemorrhoids Hyperlipemia, mixed ([facility]) Hypertension ([facility]) Onychomycosis of toenail Osteoarthritis of both knees, unspecified osteoarthritis type Osteochondral defect of talus Pain, foot, right, chronic Peroneal tendinitis, right Right ankle pain Right leg swelling Severe persistent asthma Skin tags, multiple acquired Sprain of right ankle, sequela T2DM (type 2 diabetes mellitus) ([facility]) Medications Current Outpatient Medications: albuterol HFA 90 [...] Disp: 180 tablet, Rfl: 1 Continuous Glucose Polisher Hand (FreeStyle Era 2 Gem) device, 1 each in the morning and 1 each at noon and 1 each in the evening and 1 each before bedtime., Disp: 1 each, Rfl: 0 Continuous Glucose Sensor (FreeStyle Era 3 Plus Sensor) [facility], USE 1 SENSOR EVERY 15 DAYS TO MONITOR BLOOD SUGAR., Disp: , Rfl: dapagliflozin (Farxiga) 5 MG, Take 1 tablet (5 mg) by mouth Daily, Disp: 90 tablet, Rfl: 0 Yqupipncwwr-Meqoziakb-Hbgjzk (Trelegy Ellipta) 200-62.5-25 MCG/ACT aerosol powder , [...] glargine-yfgn (Semglee, yfgn,) 100 UNIT/ML injection, Inject 20 Units under the skin at bedtime, Disp: , Rfl: insulin pen needle (B-D ULTRAFINE III SHORT PEN) 31G X 8 mm [facility], Daily, Disp: 100 each, Rfl: 12 losartan-hydroCHLOROthiazide [...] polyneuropathy, with long-term current use of insulin (CMS/[facility]) E11.42 Z79.4 Patient was examined and evaluated. Diabetic foot evaluation performed. Patient is low risk for diabetic foot complications. He does have some mild neuropathy but currently has no preulcerative lesions. 10 toenails were debrided in length and thickness today utilizing a nail nipper and electric bur grinder set up operator jig without incident. I have discussed the importance [...] Abisai Boateng DPM documented in this encounter [facility] 07-29-2024 History of Present illness Narrative Pt states that about 2 weeks ago he had pain in his right knee and swelling in the right leg. Pt states it happened just the one time. Pt is having pin and needles in the left hand. 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, happens about 2-3x daily Pt needs a refill on his trelegy and albuterol inhaler wants to know if he can be on mounjaro Pt does not take januvia 100mg insurance will not pay for it- $600 a month for bottle CGM readings: 7 day, avg 235, >250 46%, 181-250 36%, 70-181 18% 14 day avg 210, 8.3%, >250 30%, 181-250 32%, 70-48953% 30 day avg 190, 7.9%, >250 18%, [...] 2 times daily with meals Continuous Glucose Polisher Hand (ARTtwo50Style Era 2 Gem) device 1 each, Does not apply, 4 times daily Continuous Glucose Sensor (FreeStyle Era 3 Plus Sensor) [facility] USE 1 SENSOR EVERY 15 DAYS TO MONITOR BLOOD SUGAR. furosemide (LASIX) 40 mg, Daily glipiZIDE (GLUCOTROL) 5 mg, Oral, 2 times daily before meals insulin glargine-yfgn (SEMGLEE (YFGN)) 20 Units, Subcutaneous, Nightly insulin pen needle (B-D ULTRAFINE III SHORT PEN) 31G X 8 mm [facility] Daily losartan-hydroCHLOROthiazide (Hyzaar) 100-25 MG tablet 1 [...] History: Diagnosis Date AYESHA (acute kidney injury) ([facility]) Arthritis of ankle, right Asthma ([facility]) Avascular necrosis of talus, right ([facility]) Dietrich cyst, right Enlarged and hypertrophic nails Eosinophilia Equinus contracture of right ankle Gastroesophageal reflux disease Hemorrhoids Hyperlipemia, mixed ([facility]) Hypertension ([facility]) Onychomycosis of toenail Osteoarthritis of both knees, unspecified osteoarthritis type Osteochondral defect of talus Pain, foot, right, chronic Peroneal tendinitis, right Right ankle pain Right leg swelling Severe persistent asthma ([facility]) Skin tags, multiple acquired Sprain of right ankle, sequela T2DM (type 2 diabetes mellitus) ([facility]) Past Surgical History: Procedure Laterality Date ANKLE [...] polyneuropathy, with long-term current use of insulin ([facility]) - Primary No current treatment Recommend proper fitting toes, freq foot inspections, good glycemic control Severe persistent asthma without complication ([facility]) Current meds: trelegy, albuterol #2 samples of trelegy: 100's, lot MV9W, exp 06/21 In the past has used trelegy 200, symbicort 160, and flovent Finds benefit with trelegy 100's Has seen pulmonology in the past Relevant Medications Hgephkahvpf-Qvqzpfdhx-Gekkyr (Trelegy Ellipta) 200-62.5-25 MCG/ACT aerosol powder albuterol HFA 90 mcg/act inhaler Gastro-esophageal reflux disease without esophagitis Recommendations: freq small meals, nothing to eat or drink at least 2 hours prior to bed, limit caffeine, alcohol, as well as spicy foods Meds to limit or avoid if possible: NSAIDS Elevate HOB if possible Med: omeprazole Hyperlipidemia ([facility]) On statin therapy Check labs yearly, and prn dose changes Type 2 diabetes mellitus without complications ([facility]) Check blood sugars daily, notify if <70 [...] 07/18/24 Relevant Medications dapagliflozin (Farxiga) 5 MG [facility] (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 ([facility]) Continue with insulin Morbid (severe) obesity due to excess calories ([facility]) Discussed with patient their BMI (actual, verses recommended). We have also discussed lifestyle modifications: attempts to perform physical activity as chronic conditions allow, also to monitor dietary intake: increasing protein/fruits/veggies and lowering carb intake (unless contraindicated). Limit sodas, juices, and sugary drinks. Body mass index (BMI) 38.0-38.9, adult Idiopathic aseptic necrosis of right foot ([facility]/HCC) Has seen podiatry in the past Primary hypertension ([facility]) Please check blood pressure daily and record DASH diet Limit caffeine Take medication as directed Contact office if chest pain, pressure, dizziness, shortness of breath, swelling legs Recommend slow position changes Current meds: amlodipine, carvedilol, losartan/hydrochlorothiazide, aldactone Will increase dose on aldactone to 100mg daily Recheck blood pressure in 2 weeks-currently no symptoms 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 ([facility]) Continue with insulin Associated Problem(s): Hyperlipidemia ([facility]) On statin therapy Check labs yearly, and prn dose changes Associated Problem(s): Type 2 diabetes mellitus without complications ([facility]) Check blood sugars daily, notify if <70 [...] Associated Problem(s): Severe persistent asthma without complication ([facility]) Current meds: trelegy, albuterol #2 samples of trelegy: 100's, lot MV9W, exp 06/21 In the past has used trelegy 200, symbicort 160, and flovent Finds benefit with trelegy 100's Has seen pulmonology in the past Associated Problem(s): Type 2 diabetes mellitus with diabetic polyneuropathy, with long-term current use of insulin ([facility]) No current treatment Recommend proper fitting toes, freq foot inspections, good glycemic control documented in this encounter [facility] 07-29-2024 Instructions Luci Rios NP - 07/29/2024 3:20 PM EST Aldactone increase to 2 pills daily (total 100mg) Diabetes: I want to check with insurance about either Farxiga or Jardiance -it will be 1 pill daily, pulls sugar out through the urine. I will also check into the Mounjaro/Ozempic/Trulicity documented in this encounter [facility] 04-27-2024 History of Present illness Narrative Images [...] polyneuropathy, with long-term current use of insulin ([facility]/HCC) - Primary Glipizide 5mg Metformin 850mg Januvia [...] Continue current regimen. documented in this encounter [facility] 04-27-2024 Instructions Marquis Velasquez NP - 04/27/2024 3:30 PM EST Keep up the good work! Call if you need anything!!! documented in this encounter [facility] 02-24-2024 History of Present illness Narrative Images from the original note were not included. Subjective Patient ID: Dante Dewey is a 59 y.o. male who presents for DM Foot Care (Dante Dewey 59yo male, New [facility] for diabetic nail care and polyneuropathy.Patient [...] History: Diagnosis Date AYESHA (acute kidney injury) ([facility]) Arthritis of ankle, right Asthma ([facility]) Avascular necrosis of talus, right ([facility]) Dietrich cyst, right Enlarged and hypertrophic nails Eosinophilia Equinus contracture of right ankle Gastroesophageal reflux disease Hemorrhoids Hyperlipemia, mixed ([facility]) Hypertension ([facility]) Onychomycosis of toenail Osteoarthritis of both knees, unspecified osteoarthritis type Osteochondral defect of talus Pain, foot, right, chronic Peroneal tendinitis, right Right ankle pain Right leg swelling Severe persistent asthma ([facility]) Skin tags, multiple acquired Sprain of right ankle, sequela T2DM (type 2 diabetes mellitus) ([facility]) Medications Current Outpatient Medications: albuterol HFA 90 [...] Disp: 180 tablet, Rfl: 1 Continuous Glucose Polisher Hand (FreeStyle Era 2 Gem) device, 1 each in the morning and 1 each at noon and 1 each in the evening and 1 each before bedtime., Disp: 1 each, Rfl: 0 Djglwfxymlb-Xddfiamjc-Yuydxg (Trelegy Ellipta) 200-62.5-25 MCG/ACT aerosol powder , [...] polyneuropathy, with long-term current use of insulin ([facility]) E11.42 Ambulatory referral to Podiatry Z79.4 3. Onychomycosis B35.1 Patient was examined and evaluated. Patient is low risk for diabetic foot complications. He does have some mild loss of vibratory sensation bilaterally to suggest early neuropathy. No preulcerative lesions. 10 toenails were debrided in length and thickness today utilizing a nail nipper and electric bur grinder set up operator jig without incident. I have discussed the importance [...] Abisai Boateng DPM documented in this encounter [facility] 01-22-2024 History of Present illness Narrative Associated Problem(s): Severe persistent asthma without complication ([facility]) Trelegy And Albuterol PRN. Feels symptoms are well managed. Denies any exacerbations, cough, shortness of breath. Associated Problem(s): Type 2 diabetes mellitus with diabetic polyneuropathy, with long-term current use of insulin ([facility]) Glipizide 5mg Metformin 850mg Januvia 100mg Most [...] for Follow-up (3MO, ) and Poison Suzi ([facility] WAS GIVEN STEROID AND CREAM. [...] polyneuropathy, with long-term current use of insulin ([facility]) - Primary Glipizide 5mg Metformin 850mg Januvia [...] Relevant Medications albuterol HFA 90 mcg/act inhaler Elfnuixfcgi-Fdejqfwbf-Gbpwij (Trelegy Ellipta) 200-62.5-25 MCG/ACT aerosol powder Gastroesophageal reflux disease without esophagitis Relevant Medications omeprazole (PriLOSEC) [address] cruz Hyperlipidemia ([facility]/HCC) Atorvastatin 40mg Denies myalgias Continue current regimen. Relevant Medications metFORMIN (Glucophage) 850 MG tablet aspirin 81 MG chewable tablet atorvastatin (Lipitor) 40 MG tablet Other Visit Diagnoses Type 2 diabetes mellitus without complication, with long-term current use of insulin (CMS/[facility]) Relevant Medications Continuous Glucose Polisher Hand (ARTtwo50Style Era 2 Gem) device Primary hypertension (CMS/HCC) Relevant Medications losartan-hydroCHLOROthiazide (Hyzaar) 100-25 MG tablet amLODIPine (Norvasc) 10 MG tablet documented in this encounter [facility] 01-22-2024 Instructions Marquis Velasquez NP - 01/22/2024 [...] and simple sugars. documented in this encounter [facility] 12-22-2021 Procedure note [facility] 10-26-2021 Note PROCEDURE: XR ANKLE RT MIN [...] authenticated by: MICHELLE IBRAHIM Date: 2021-10-26 08:54 [facility] 09-05-2021 Note PROCEDURE: XR ANKLE RT MIN 3 VIEWS COMPARISON: None. 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 No acute fracture, dislocation or mechanical failure. Stable degenerative changes. Mild enthesopathic spurring of the calcaneus SOFT TISSUES:Mild soft tissue swelling EFFUSION:None visible. OTHER: Negative. IMPRESSION: Stable talus arthroplasty Electronically authenticated by: GERA BLUM Date: 2021-09-05 15:22 [facility] Evaluation note No assessment inform ation [facility] Work Phone: Evaluation note Diagnosis Primary hypertension (CMS/HCC)- Primary Unspecified essential hypertension Type 2 diabetes mellitus with diabetic polyneuropathy, with long-term current use of insulin ([facility]/HCC) Other hyperlipidemia (CMS/HCC) Gastroesophageal reflux disease without esophagitis Esophageal reflux Type 2 diabetes mellitus with diabetic polyneuropathy, with long-term current use of insulin ([facility]/HCC)- Primary Resistant hypertension (CMS/HCC) Hyperlipidemia, unspecified hyperlipidemia [...] complication, with long-term current use of insulin ([facility]/HCC) documented in this encounter [facility] HealthcareEvaluation note* Diagnosis Primary hypertension (CMS/HCC)- Primary Unspecified essential hypertension Type 2 diabetes mellitus with diabetic polyneuropathy, with long-term current use of insulin (CMS/HCC) Other hyperlipidemia (CMS/HCC) Gastroesophageal reflux disease without esophagitis Esophageal reflux Type 2 diabetes mellitus with diabetic polyneuropathy, with long-term current use of insulin ([facility]/HCC)- Primary Resistant hypertension (CMS/HCC) Hyperlipidemia, unspecified hyperlipidemia type (CMS/HCC)- Primary Resistant hypertension (CMS/HCC) Type 2 diabetes mellitus with diabetic polyneuropathy, with long-term current use of insulin ([facility]/HCC) Gastroesophageal reflux disease without esophagitis Esophageal reflux Primary hypertension ([facility]/HCC) Unspecified essential hypertension Type 2 diabetes mellitus with diabetic polyneuropathy, with long-term current use of insulin ([facility]/HCC)- Primary Severe persistent asthma without complication (CMS/HCC) Resistant hypertension ([facility]/HCC) Gastroesophageal reflux disease without esophagitis Esophageal reflux Mixed hyperlipidemia ([facility]/HCC) Mixed hyperlipidemia Type 2 diabetes mellitus without complication, with long-term current use of insulin ([facility]/HCC) Primary hypertension ([facility]/HCC) Unspecified essential hypertension Hyperlipidemia, unspecified hyperlipidemia type ([facility]/HCC) Type 2 diabetes mellitus with diabetic polyneuropathy, with long-term current use of insulin ([facility]/HCC)- Primary Resistant hypertension (CMS/HCC) Gastroesophageal reflux disease without esophagitis Esophageal reflux documented in this encounter [facility] HealthcareEvaluation note* Diagnosis Primary hypertension ([facility]/HCC)- Primary Unspecified essential hypertension Type 2 diabetes mellitus with diabetic polyneuropathy, with long-term current use of insulin ([facility]/HCC) Other hyperlipidemia ([facility]/HCC) Gastroesophageal reflux disease without esophagitis Esophageal reflux Type 2 diabetes mellitus with diabetic polyneuropathy, with long-term current use of insulin ([facility]/HCC)- Primary Resistant hypertension (CMS/HCC) Hyperlipidemia, unspecified hyperlipidemia type ([facility]/HCC)- Primary Resistant hypertension (CMS/HCC) Type 2 diabetes mellitus with diabetic polyneuropathy, with long-term current use of insulin ([facility]/HCC) Gastroesophageal reflux disease without esophagitis Esophageal reflux Primary hypertension ([facility]/HCC) Unspecified essential hypertension Type 2 diabetes mellitus with diabetic polyneuropathy, with long-term current use of insulin ([facility]/HCC)- Primary Severe persistent asthma without complication (CMS/HCC) Resistant hypertension (CMS/HCC) Gastroesophageal reflux disease without esophagitis Esophageal reflux Mixed hyperlipidemia (CMS/HCC) Mixed hyperlipidemia Type 2 diabetes mellitus without complication, with long-term current use of insulin ([facility]/HCC) Primary hypertension ([facility]/HCC) Unspecified essential hypertension Hyperlipidemia, unspecified hyperlipidemia type ([facility]/HCC) Type 2 diabetes mellitus with diabetic polyneuropathy, with long-term current use of insulin ([facility])- Primary Resistant hypertension (CMS/HCC) Gastroesophageal reflux disease without esophagitis Esophageal reflux Type 2 diabetes mellitus with diabetic polyneuropathy, with long-term current use of insulin ([facility])- Primary documented in this encounter [facility] HealthcareEvaluation note* Diagnosis Type 2 diabetes mellitus with diabetic polyneuropathy, with long-term current use of insulin ([facility])- Primary Severe persistent asthma without complication ([facility]) Resistant hypertension ([facility]) Gastroesophageal reflux disease without esophagitis Esophageal reflux Mixed hyperlipidemia ([facility]) Mixed hyperlipidemia Type 2 diabetes mellitus without complication, with long-term current use of insulin ([facility]) Primary hypertension ([facility]) Unspecified essential hypertension Hyperlipidemia, unspecified hyperlipidemia type ([facility]/HCC) documented in this encounter [facility] HealthcareEvaluation note* Diagnosis Onychodystrophy- Primary Other specified disease of nail Type 2 diabetes mellitus with diabetic polyneuropathy, with long-term current use of insulin ([facility]) Onychomycosis Dermatophytosis of nail documented in this encounter [facility] HealthcareEvaluation note* Diagnosis Primary hypertension ([facility]/HCC)- Primary Unspecified essential hypertension Type 2 diabetes mellitus with diabetic polyneuropathy, with long-term current use of insulin ([facility]) Other hyperlipidemia ([facility]) Gastroesophageal reflux disease without esophagitis Esophageal reflux Type 2 diabetes mellitus with diabetic polyneuropathy, with long-term current use of insulin ([facility])- Primary Resistant hypertension ([facility]/HCC) Hyperlipidemia, unspecified hyperlipidemia type ([facility]/HCC)- Primary Resistant hypertension ([facility]/HCC) Type 2 diabetes mellitus with diabetic polyneuropathy, with long-term current use of insulin ([facility]) Gastroesophageal reflux disease without esophagitis Esophageal reflux Primary hypertension ([facility]/HCC) Unspecified essential hypertension Type 2 diabetes mellitus with diabetic polyneuropathy, with long-term current use of insulin ([facility])- Primary Severe persistent asthma without complication (CMS/HCC) [...] without complication (CMS/HCC) documented in this encounter [facility] HealthcareEvaluation note* Diagnosis Primary hypertension (CMS/HCC)- Primary Unspecified essential hypertension Type 2 diabetes mellitus with diabetic polyneuropathy, with long-term current use of insulin (CMS/HCC) Other hyperlipidemia (CMS/HCC) Gastroesophageal reflux disease without esophagitis Esophageal reflux Type 2 diabetes mellitus with diabetic polyneuropathy, with long-term current use of insulin ([facility]/HCC)- Primary Resistant hypertension (CMS/HCC) Hyperlipidemia, unspecified hyperlipidemia type (CMS/HCC)- Primary Resistant hypertension (CMS/HCC) Type 2 diabetes mellitus with diabetic polyneuropathy, with long-term current use of insulin (CMS/HCC) Gastroesophageal reflux disease without esophagitis Esophageal reflux Primary hypertension (CMS/HCC) Unspecified essential hypertension Type 2 diabetes mellitus with diabetic polyneuropathy, with long-term current use of insulin ([facility]/HCC)- Primary Severe persistent asthma without complication (CMS/HCC) Resistant hypertension (CMS/HCC) Gastroesophageal reflux disease without esophagitis Esophageal reflux Mixed hyperlipidemia (CMS/HCC) Mixed hyperlipidemia Type 2 diabetes mellitus without complication, with long-term current use of insulin (CMS/HCC) Primary hypertension (CMS/HCC) Unspecified essential hypertension Hyperlipidemia, unspecified hyperlipidemia type (CMS/HCC) Type 2 diabetes mellitus with diabetic polyneuropathy, with long-term current use of insulin ([facility]/HCC)- Primary Resistant hypertension (CMS/HCC) Gastroesophageal reflux disease without esophagitis Esophageal reflux Primary hypertension (CMS/HCC)- Primary Unspecified essential hypertension Type 2 diabetes mellitus without complications (CMS/HCC) [facility] (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 ([facility]/HCC) Morbid (severe) obesity due to excess calories (CMS/HCC) Gastro-esophageal reflux disease without esophagitis Body mass index (BMI) 38.0-38.9, adult 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 polyneuropathy, with long-term current use of insulin (CMS/HCC) Severe persistent asthma without complication (CMS/HCC) Mixed hyperlipidemia (CMS/HCC) Mixed hyperlipidemia documented in this encounter [facility] HealthcareEvaluation note* Diagnosis Primary hypertension (CMS/HCC)- Primary [...] Type 2 diabetes mellitus without complications (CMS/HCC) 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 (CMS/HCC) Morbid (severe) [...] with long-term current use of insulin (CMS/HCC) Hyperlipidemia, unspecified hyperlipidemia type (CMS/HCC) Resistant hypertension (CMS/HCC) Type 2 diabetes mellitus with diabetic polyneuropathy, with long-term current use of insulin (CMS/HCC) Gastroesophageal reflux disease without esophagitis Esophageal reflux Edema of both lower extremities Elevated serum creatinine- Primary Other nonspecific findings on examination of blood documented in this encounter [facility] HealthcareEvaluation note* Diagnosis Primary hypertension (CMS/HCC)- Primary Unspecified essential hypertension Type 2 diabetes mellitus with diabetic polyneuropathy, with long-term current use of insulin (CMS/HCC) Other hyperlipidemia Gastroesophageal reflux disease without esophagitis Esophageal reflux Type 2 diabetes mellitus with diabetic polyneuropathy, with long-term current use of insulin (CMS/HCC)- Primary Resistant hypertension (CMS/HCC) Hyperlipidemia, unspecified hyperlipidemia type (CMS/HCC)- Primary Resistant hypertension (CMS/HCC) Type 2 diabetes mellitus with diabetic polyneuropathy, with long-term current use of insulin ([facility]) Gastroesophageal reflux disease without esophagitis Esophageal reflux Primary hypertension (CMS/HCC) Unspecified essential hypertension Type 2 diabetes mellitus with diabetic polyneuropathy, with long-term current use of insulin ([facility]/HCC)- Primary Severe persistent asthma without complication (CMS/HCC) Resistant hypertension (CMS/HCC) Gastroesophageal reflux disease without esophagitis Esophageal reflux Mixed hyperlipidemia (CMS/HCC) Mixed hyperlipidemia Type 2 diabetes mellitus without complication, with long-term current use of insulin Primary hypertension (CMS/HCC) Unspecified essential hypertension Hyperlipidemia, unspecified hyperlipidemia type (CMS/HCC) Type 2 diabetes mellitus with diabetic polyneuropathy, with long-term current use of insulin ([facility]/HCC)- Primary Resistant hypertension (CMS/HCC) Gastroesophageal reflux disease without esophagitis Esophageal reflux Primary hypertension (CMS/HCC)- Primary Unspecified essential hypertension 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 ([facility]/HCC) Morbid (severe) obesity due to excess calories (CMS/HCC) Gastro-esophageal reflux disease without esophagitis Body mass index (BMI) 38.0-38.9, adult 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 polyneuropathy, with long-term current use of insulin ([facility]/HCC) Severe persistent asthma without complication (CMS/HCC) Mixed [...] of insulin (CMS/HCC) documented in this encounter [facility] HealthcareEvaluation note* Diagnosis Primary hypertension (CMS/HCC)- Primary Unspecified essential hypertension Type 2 diabetes mellitus with diabetic polyneuropathy, with long-term current use of insulin (CMS/HCC) Other hyperlipidemia Gastroesophageal reflux disease without esophagitis [...] long-term current use of insulin Primary hypertension (CMS/HCC) Unspecified essential hypertension Hyperlipidemia, unspecified hyperlipidemia type (CMS/HCC) Type 2 diabetes mellitus with diabetic polyneuropathy, with long-term current use of insulin (CMS/HCC)- Primary Resistant hypertension (CMS/HCC) Gastroesophageal reflux disease without esophagitis Esophageal reflux Primary hypertension (CMS/HCC)- Primary Unspecified essential hypertension Type 2 diabetes mellitus without complications [facility] (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 (CMS/HCC) Morbid (severe) [...] examination of blood documented in this encounter [facility] HealthcareEvaluation note* Diagnosis Primary hypertension (CMS/HCC)- Primary Unspecified essential hypertension Type 2 diabetes mellitus with diabetic polyneuropathy, with long-term current use of insulin (CMS/HCC) Other hyperlipidemia Gastroesophageal reflux disease without esophagitis [...] long-term current use of insulin Primary hypertension (CMS/HCC) Unspecified essential hypertension Hyperlipidemia, unspecified hyperlipidemia type (CMS/HCC) Type 2 diabetes mellitus with diabetic polyneuropathy, with long-term current use of insulin (CMS/HCC)- Primary Resistant hypertension (CMS/HCC) Gastroesophageal reflux disease without esophagitis Esophageal reflux Primary hypertension (CMS/HCC)- Primary Unspecified essential hypertension 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 (CMS/HCC) Morbid (severe) [...] Other nonspecific findings on examination of blood Primary hypertension (CMS/HCC) Unspecified essential hypertension Type 2 diabetes mellitus without complication, with long-term current use of insulin documented in this encounter [facility] HealthcareEvaluation note* Diagnosis Primary hypertension (CMS/HCC)- Primary Unspecified essential hypertension Type 2 diabetes mellitus with diabetic polyneuropathy, with long-term current use of insulin (CMS/HCC) Other hyperlipidemia Gastroesophageal reflux disease without esophagitis Esophageal reflux Type 2 diabetes mellitus with diabetic polyneuropathy, with long-term current use of insulin ([facility]/HCC)- Primary Resistant hypertension (CMS/HCC) Hyperlipidemia, unspecified hyperlipidemia type (CMS/HCC)- Primary Resistant hypertension (CMS/HCC) Type 2 diabetes mellitus with diabetic polyneuropathy, with long-term current use of insulin ([facility]/HCC) Gastroesophageal reflux disease without esophagitis Esophageal reflux Primary hypertension (CMS/HCC) Unspecified essential hypertension Type 2 diabetes mellitus with diabetic polyneuropathy, with long-term current use of insulin (CMS/HCC)- Primary Severe persistent asthma without complication (CMS/HCC) Resistant hypertension (CMS/HCC) Gastroesophageal reflux disease without esophagitis Esophageal reflux Mixed hyperlipidemia (CMS/HCC) Mixed hyperlipidemia Type 2 diabetes mellitus without complication, with long-term current use of insulin Primary hypertension (CMS/HCC) Unspecified essential hypertension Hyperlipidemia, unspecified hyperlipidemia type (CMS/HCC) Type 2 diabetes mellitus with diabetic polyneuropathy, with long-term current use of insulin (CMS/HCC)- Primary Resistant hypertension (CMS/HCC) Gastroesophageal reflux disease without esophagitis Esophageal reflux Primary hypertension (CMS/HCC)- Primary Unspecified essential hypertension Type 2 diabetes mellitus without complications [facility] (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 (CMS/HCC) Morbid (severe) [...] Esophageal reflux Edema of both lower extremities Type 2 diabetes mellitus without complication, with long-term current use of insulin- Primary Type 2 diabetes mellitus with diabetic polyneuropathy, with long-term current use of insulin (CMS/HCC) Primary hypertension (CMS/HCC) Unspecified essential hypertension Edema of both lower extremities 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 ([facility]/HCC) Morbid (severe) obesity due to excess calories (CMS/HCC) Severe persistent asthma without complication (CMS/HCC) Elevated serum creatinine Other nonspecific findings on examination of blood documented in this encounter [facility] HealthcareHistory and physical note Author Sav Andrews [facility] December 22, 2021 9:32am Note Date/Time December 22, 2021 9:32 am [facility] [address] [place] [address] Gastroenterology H&P Signed Patient: Dante Dietz MR #: [id number] : 1965 Acct:[id number] Age/Sex: 56 / M Adm Date: 2 Loc: Room: Type: [facility] Attending Dr: Sav Andrews MD Copies [...] signed by Sav Andrews MD> 12/22/21 0932 [facility] Work Phone: Reason for referral (narrative)* Consultation (Routine) - Pending Review Specialty Diagnoses / Procedures Referred By Magdy t Referred To Contact Podiatry Diagnoses Type 2 diabetes mellitus with diabetic polyneuropathy, with long-term current use of insulin ([facility]) Procedures OR OFFICE/OUTPATIENT NEW HIGH MDM 60 MINUTES Marquis Velasquez NP [address] [place] [address] Rita Mejia, DPM [address] [place] [address] Referral ID Status Reason Start Date Expiration Date Visits Requested Visits Authorized [id number] Pending Review Specialty Services Required 01/22/2024 07/20/2024 [...] Active Silver Briceño DO Attending Provider Active 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 Specialty Start Date End Date Antwan Perez MD [address] [place] [address] PCP - General Family Medicine 12/30/23 Marquis Velasquez NP [address] [place] [address] Nurse Practitioner Family Medicine 12/30/23 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 Specialty Start Date End Date Antwan Perez MD [address] [place] [address] PCP - General Family Medicine 12/30/23 Shaikh Baker MD [address] [place] [address] PCP - [employer] 02/25/24 Marquis Velasquez NP [address] [place] [address] Nurse Practitioner Family Medicine 12/30/23 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 Specialty Start Date End Date Antwan Perez MD [address] [place] [address] PCP - General Family Medicine 12/30/23 Shaikh Baker MD [address] [place] [address] PCP - [employer] 02/25/24 Marquis Velasquez NP [address] [place] [address] Nurse Practitioner Family Medicine 12/30/23 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 Specialty Start Date End Date Antwan Perez MD [address] [place] [address] PCP - General Family Medicine 12/30/23 Shaikh Baker MD [address] [place] [address] PCP - [employer] 02/25/24 Marquis Velasquez NP [address] [place] [address] Nurse Practitioner Family Medicine 12/30/23 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 Specialty Start Date End Date Antwan Perez MD [address] [place] [address] PCP - General Family Medicine 12/30/23 Marquis Velasquez NP [address] [place] [address] Nurse Practitioner Family Medicine 12/30/23 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 Specialty Start Date End Date Antwan Perez MD [address] [place] [address] PCP - General Family Medicine 12/30/23 Marquis Velasquez NP [address] [place] [address] Nurse Practitioner Family Medicine 12/30/23 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 Specialty Start Date End Date Antwan Perez MD [address] [place] [address] PCP - General Family Medicine 12/30/23 Marquis Velasquez NP [address] [place] [address] Nurse Practitioner Family Medicine 12/30/23 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 Specialty Start Date End Date Antwan Perez MD [address] [place] [address] PCP - General Family Medicine 12/30/23 Marquis Velasquez NP [address] [place] [address] Nurse Practitioner Family Medicine 12/30/23 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 Specialty Start Date End Date Antwan Perez MD [address] [place] [address] PCP - General Family Medicine 12/30/23 Marquis Velasquez NP [address] [place] [address] Nurse Practitioner Family Medicine 12/30/23 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 Specialty Start Date End Date Antwan Perez MD [address] [place] [address] PCP - General Family Medicine 12/30/23 Shaikh Baker MD [address] [place] [address] PCP - [employer] 02/25/24 Marquis Velasquez NP [address] [place] [address] Nurse Practitioner Family Medicine 12/30/23 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 Specialty Start Date End Date Antwan Perez MD [address] [place] [address] PCP - General Family Medicine 12/30/23 Shaikh Baker MD [address] [place] [address] PCP - [employer] 02/25/24 Marquis Velasquez NP [address] [place] [address] Nurse Practitioner Family Medicine 12/30/23 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 Specialty Start Date End Date Antwan Perez MD [address] [place] [address] PCP - General Family Medicine 12/30/23 Shaikh Baker MD [address] [place] [address] PCP - [employer] 02/25/24 Marquis Velasquez NP [address] [place] [address] Nurse Practitioner Family Medicine 12/30/23 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 Specialty Start Date End Date Antwan Perez MD [address] [place] [address] PCP - General Family Medicine 12/30/23 Shaikh Baker MD [address] [place] [address] PCP - [employer] 02/25/24 Marquis Velasquez NP [address] [place] [address] Nurse Practitioner Family Medicine 12/30/23 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 Specialty Start Date End Date Antwan Perez MD [address] [place] [address] PCP - General Family Medicine 12/30/23 Shaikh Baker MD [address] [place] [address] PCP - [employer] 02/25/24 Marquis Velasquez NP [address] [place] [address] Nurse Practitioner Family Medicine 12/30/23 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 Specialty Start Date End Date Antwan Perez MD [address] [place] [address] PCP - General Family Medicine 12/30/23 Shaikh Baker MD [address] [place] [address] PCP - [employer] 02/25/24 Marquis Velasquez NP [address] [place] [address] Nurse Practitioner Family Medicine 12/30/23 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 Specialty Start Date End Date Antwan Perez MD [address] [place] [address] PCP - General Family Medicine 12/30/23 Shaikh Baker MD [address] [place] [address] PCP - [employer] 02/25/24 Marquis Velasquez NP [address] [place] [address] Nurse Practitioner Family Medicine 12/30/23 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 Specialty Start Date End Date Antwan Perez MD [address] [place] [address] PCP - General Family Medicine 12/30/23 Shaikh Baker MD [address] [place] [address] PCP [facility] 02/25/24 Marquis Velasquez NP [address] [place] [address] Nurse Practitioner Family Medicine 12/30/23 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 Specialty Start Date End Date Antwan Perez MD [address] [place] [address] PCP - General Family Medicine 12/30/23 Marquis Velasquez NP [address] [place] [address] Nurse Practitioner Family Medicine 12/30/23 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 Specialty Start Date End Date Antwan Perez MD [address] [place] [address] PCP - General Family Medicine 12/30/23 Marquis Velasquez NP [address] [place] [address] Nurse Practitioner Family Medicine 12/30/23 (unrecognized sect ion and content) No Status Records FoundNo Status Records FoundNo Status Records Found INFORMATION SOURCE (unrecogn ized section and content) DATE CREATED AUTHOR 07/14/2022 [facility] DATE CREATED AUTHOR AUTHOR'S ORGANIZ ATION 10/02/2022 [facility] DATE CREATED AUTHOR AUTHOR'S ORGANIZ ATION 10/10/2024 [facility] dical Specialists EPIC Goals (unrecognized section and content) Goals may be documented in a n alternate section Reason for Visit (unrecogniz ed section and content) Reason Onset Date Comments Med Refill 03/18/2024 Reason Comments Follow-up Med Refills Reason Onset Date Comments Med Refill 05/06/2024 Reason Comments Follow-up 3MO, Poison Suzi [facility] WAS GIVEN FADI ROID AND CREAM. [...] polyneuropathy, with long-term current use of insulin ([facility]) Procedures OR OFFICE/OUTPATIENT NEW HIGH MDM 60 MINUTES Marquis Velasquez, BOTTOM FINISHER [address] [place] [address] Rita Mejia, DPM [address] [place] [address] Referral ID Status Reason Start Date Expiration Date V isits Requested Visits Authorized [id number] Closed Specialty Services Required 01/22/2024 07/20/2024 1 1 Reason Comments Med Refill Reason Comments DM Foot Care PCP: Luci Phillips LV 08/18/24, A1C: 8.3, BS: 142 Reason Comments Hypertension FOR RECORDS PERTAINING TO PATIENTS WHO ARE [...] BE BASED ON THE PRIMARY CLINICAL RECORDS. [facility] provides no warranty or guarantee of the accuracy or completeness of information in this document.
--- OUTSIDE RECORDS SUMMARY | 2024-10-24 08:51 | XMS_ITS | Encounter Summary ---
Author Organization [facility] Address [address] [place] [address] Care Team Providers Care Furnace Filler Name Role Phone Shaikh ALONSO Baker Primary Care Provider [phone] Antwan Perez MD Primary Care Provider [phone] Georgina Velasquez NP Unavailable [phone] Shaikh ALONSO Baker Unavailable [phone] Encounter Details Date Type Department Care Team (Late st Contact Info) Description 09/11/2023 Clinisync Result Encounter [facility] External Department Unsolicited Provider, Generic External Data Social History Tobacco Use Types Packs/Day Years Used Date Smoking Tobacco: Former Cigarettes Passive Smoke Exposure: Past Smokeless Tobacco: Never Alcohol Use Standard Drinks/Week Comments Never 0 (1 standard drink = 0.6 oz pur e alcohol) PHQ-2 Answer Date Recorded Patient Health Questionnaire-2 Score 0 08/07/2023 Sex and Gender Information Value Date Recorded Sex Assigned at Not on file Legal Sex Male 11:39 PM EDT Gender Identity Not on file Sexual Orientation Not on file documented as of this encounter Plan of Treatment Upcoming Encounters Date Type Department Care Team (Late st Contact Info) Description 11/19/2024 3:40 PM EDT Office Visit [facility] [address] [place] [address] Luci Rios, MARIA FERNANDA [address] [place] [address] 02/23/2025 3:15 PM EDT Procedure Visit [facility] [address] [facility] [place] [address] Abisai Boateng, DPM [address] [place] [address] documented as of this encounter Procedures Procedure Name Priority Date/Time Associated Diagnosis Comments XR ANKLE RT MIN 3V 09/11/2023 8: 52 AM EDT documented in this encounter Results * XR ANKLE RT MIN 3V (09/11/2023 8:52 AM EDT) Anatomical Region Laterality Modality Other 09/11/2023 8:52 AM EDT Narrative 09/11/2023 8:54 [place] [address] XRay Report Signed Patient: LAVERN ESCOBEDO MR#: [id number] : 1965 Acct:[id number] Age/Sex: 58 / M ADM Date: 09/10/23 Loc: EC Attending Dr: Rey Perez D.P.M. Ordering Physician: Rey Perez D.P.M. Date of Service: 09/10/23 Procedure(s): XR ankle RT min 3V Accession Number(s): [id number] cc: Shaikh Heather Baker; Rey Perez D.P.M. The [place] [id number] Patient Name: LAVERN GARCIA MRN: [id number] date: 1965 Sex: M Assigned Patient Location: EC Current Patient Location: Accession/Order Number: [id number] Exam Date: 09/10/2023 14:38 Report Date: 09/11/2023 08:52 At the request of: REY PEREZ Procedure: XR ankle RT min 3V PROCEDURE: XR ankle RT min 3V COMPARISON: 07/16/2023 HISTORY: RIGHT ANKLE PAIN FINDINGS: BONES:Stable ankle fusion with a talus replacement. Intramedullary marci extends from the calcaneus into the tibia and proximally and distally. Heterotopic bone likely from graft. Degenerative changes of the midfoot. SOFT TISSUES:Mild soft tissue swelling EFFUSION:None visible. OTHER: Negative. XR/XR ankle RT min 3V IMPRESSION: Stable ankle fusion Electronically authenticated by: GERA BLUM Date: 09/11/2023 08:52 Dictated By: Gera Blum M.D. Signed By: 09/11/2354 DD/ TD/TT: Sr. Payroll Processor: Procedure Note Radiology, Radiologist, MD - 09/11/2023 [place] [address] XRay Report Signed Patient: LAVERN ESCOBEDOMR#: [id number] : 1965Acct:[id number] Age/Sex: 58 / MADM Date: 09/10/23 Loc: EC Attending Dr: Rey Perez D.P.M. Ordering Physician: Rey Perez D.P.M. Date of Service: 09/10/23 Procedure(s): XR ankle RT min 3V Accession Number(s): [id number] cc: Shaikh Heather Baker; Rey Perez D.P.M. The [place] [address] Patient Name: LAVERN GARCIA MRN: [id number] date: 1965 Sex: M Assigned Patient Location: Current Patient Location: Accession/Order Number: [id number] Exam Date: 09/10/2023 14:38 Report Date: 09/11/2023 08:52 At the request of: REY PEREZ Procedure: XR ankle RT min 3V PROCEDURE: XR ankle RT min 3V COMPARISON: 07/16/2023 HISTORY: RIGHT ANKLE PAIN FINDINGS: BONES:Stable ankle fusion with a talus replacement. Intramedullary rodextends from the calcaneus into the tibia and proximally and distally. Heterotopic bone likely from graft. Degenerative changes of the midfoot. SOFT TISSUES:Mild soft tissue swelling EFFUSION:None visible. OTHER: Negative. XR/XR ankle RT min 3V IMPRESSION: Stable ankle fusion Electronically authenticated by: GERA BLUM Date: 09/11/2023 08:52 Dictated By: Gera Blum M.D. Signed By:09/11/2354 DD/ TD/TT: Sr. Payroll Processor: us Generic External Data Provider [facility] Final Result documented in this encounter Visit Diagnoses Not on filedocumented in this encounter Care Teams Furnace Filler Relationship Specialty Start Date End Date Shaikh Baker MD [address] [place] [address] PCP - General Internal Medicine 06/25/23 12/29/23 Antwan Perez MD [address] [place] [address] PCP - General Family Medicine 12/30/23 Shaikh Baker MD [address] [place] [address] PCP - [facility] 02/25/24 Georgina Velasquez NP [address] [place] [address] Nurse Practitioner Family Medicine 12/30/23 documented as of this encounter
--- OUTSIDE RECORDS SUMMARY | 2024-10-24 08:51 | XMS_ITS | Encounter Summary ---
Author Organization [facility] Address [address] [place] [address] Care Team Providers Care Crm Marketing Manager Name Role Phone Shaikh ALONSO Baker Primary Care Provider [phone] Antwan Perez MD Primary Care Provider [phone] Georgina Velasquez NP Unavailable [phone] Shaikh ALONSO Baker Unavailable [phone] Encounter Details Date Type Department Care Team (Late st Contact Info) Description 08/19/2023 Clinisync Result Encounter [facility] External Department Unsolicited [...] Visit [facility] [address] [place] [address] Luci Rios, MARIA FERNANDA [address] [place] [address] 02/23/2025 3:15 PM EDT Procedure Visit [facility] [address] [place] [address] Abisai Boateng, DPM [address] [place] [address] documented as of this encounter Procedures Procedure Name Priority Date/Time Associated Diagnosis Comments CT ANKLE RT WO CON 08/19/2023 7: 23 AM EDT documented in this encounter Results * CT ANKLE RT WO CON (08/19/2023 7:23 AM EDT) Anatomical Region Laterality Modality Other 08/19/2023 7:2 3 AM EDT Narrative 08/19/2023 7:25 [place] [address] CT Scan Report Signed Patient: LAVERN ESCOBEDO MR#: [id number] : 1965 Acct:[id number] Age/Sex: 58 / M ADM Date: 08/16/23 Loc: CT Attending Dr: Rey Perez D.P.M. Ordering Physician: Rey Perez D.P.M. Date of Service: 08/16/23 Procedure(s): CT ankle RT wo con Accession Number(s): [id number] cc: Shaikh Heather Baker [place] [id number] Patient Name: LAVERN GARCIA MRN: [id number] date: 1965 Sex: M Assigned Patient Location: CT Current Patient Location: Accession/Order Number: [id number] Exam Date: 08/16/2023 15:26 Report Date: 08/19/2023 07:23 At the request of: REY PEREZ Procedure: CT ankle RT wo con EXAMINATION: CT ankle RT wo con HISTORY: Ankle DJD, AVN COMPARISON: 06/25/2023 TECHNIQUE: Multi-planar CT images were created without IV contrast. Dose reduction techniques were achieved by using automated exposure control and/or adjustment of mA and/or kV according to patient size and/or use of iterative reconstruction technique. FINDINGS: BONES: Stable ankle fusion with placement of a talus spacer. Retrograde intramedullary marci and proximally and distally. No acute fracture, dislocation or mechanical failure. Bone graft identified in the expected location of the anterior talus. There is a permanent pattern of the bones most significant in the navicular, stable from the prior exam. No significant interval bone formation is observed SOFT TISSUES: Diffuse soft tissue swelling EFFUSION: None visible. OTHER: Negative. CT/CT ankle RT wo con IMPRESSION: Stable ankle fusion with no acute fracture, dislocation or mechanical failure Electronically authenticated by: GERA BLUM Date: 08/19/2023 07:23 Dictated By: Gera Blum M.D. Signed By: 08/19/23724 DD/ 2 TD/TT: Broadband Installer: Procedure Note Radiology, Radiologist, MD - 08/19/2023 [place] [address] CT Scan Report Signed Patient: LAVERN ESCOBEDOMR#: [id number] : 1965Acct:[id number] Age/Sex: 58 / MADM Date: 08/16/23 Loc: CT Attending Dr: Rey Perez D.P.M. Ordering Physician: Rey Perez D.P.M. Date of Service: 08/16/23 Procedure(s): CT ankle RT wo con Accession Number(s): [id number] cc: Shaikh Heather Baker The [place] [address] Patient Name: LAVERN GARCIA MRN: [id number] date: 1965 Sex: M Assigned Patient Location: CT Current Patient Location: Accession/Order Number: [id number] Exam Date: 08/16/2023 15:26 Report Date: 08/19/2023 07:23 At the request of: REY PEREZ Procedure: CT ankle RT wo con EXAMINATION: CT ankle RT wo con HISTORY: Ankle DJD, AVN COMPARISON: 06/25/2023 TECHNIQUE: Multi-planar CT images were created without IV contrast. Dose reduction techniques were achieved by using automated exposure controland/or adjustment of mA and/or kV according to patient size and/or use ofiterative reconstruction technique. FINDINGS: BONES: Stable ankle fusion with placement of a talus spacer. Retrograde intramedullary marci and proximally and distally. No acute fracture,dislocation or mechanical failure. Bone graft identified in the expected location ofthe anterior talus. There is a permanent pattern of the bones most significantin the navicular, stable from the prior exam. No significant interval bone formation is observed SOFT TISSUES: Diffuse soft tissue swelling EFFUSION: None visible. OTHER: Negative. CT/CT ankle RT wo con IMPRESSION: Stable ankle fusion with no acute fracture, dislocation or mechanicalfailure Electronically authenticated by: GERA BLUM Date: 08/19/2023 07:23 Dictated By: Gera Blum M.D. Signed By:08/19/23724 DD/ 2 TD/TT: Broadband Installer: Generic External Data Provider [facility] Final Result documented in this encounter Visit Diagnoses Not on filedocumented in this encounter Care Teams Crm Marketing Manager Relationship Specialty Start Date End Date Shaikh Baker MD [address] [place] [address] PCP - General Internal Medicine 06/25/23 12/29/23 Antwan Perez MD [address] [place] [address] PCP - General Family Medicine 12/30/23 Shaikh Baker MD [address] [place] [address] PCP - [facility] 02/25/24 Georgina Velasquez NP [address] [place] [address] Nurse Practitioner Family Medicine 12/30/23 documented as of this encounter
--- OUTSIDE RECORDS SUMMARY | 2024-10-24 08:51 | XMS_ITS | Encounter Summary ---
Author Organization [facility] Address [address] [place] [address] Care Team Providers Care Trim Technician Name Role Phone Shaikh ALONSO Baker Primary Care Provider [phone] Antwan Perez MD Primary Care Provider Georgina Velasquez NP Unavailable Shaikh ALONSO Baker Unavailable [phone] Encounter Details Date Type Department Care Team [...] Visit [facility] [address] [place] [address] Luci Rios NP [address] [place] [address] 02/23/2025 3:15 PM EDT Procedure Visit [facility] [address] [place] [address] Abisai Boateng, DPM [address] [place] [address] documented as of this encounter Procedures Procedure Name Priority Date/Time Associated Diagnosis Comments XR ANKLE RT MIN 3V 07/17/2023 6: 52 AM EST documented in this encounter Results * XR ANKLE RT MIN 3V (07/17/2023 6:52 AM EST) Anatomical Region Laterality Modality Other 07/17/2023 6:52 AM EST Narrative 07/17/2023 6:55 AM EST [address] [address] XRay Report Signed Patient: LAVERN ESCOBEDO MR#: [id number] : 1965 Acct:[id number] Age/Sex: 58 / M ADM Date: 07/16/23 Loc: RAD Attending Dr: Rey Perez D.P.M. Ordering Physician: Rey Perez D.P.M. Date of Service: 07/16/23 Procedure(s): XR ankle RT min 3V Accession Number(s): [id number] cc: Shaikh Heather Baker; Rey Perez D.P.M. [address] [address] Patient Name: LAVERN GARCIA MRN: [id number] date: 1965 Sex: M Assigned Patient Location: RAD Current Patient Location: Accession/Order Number: [id number] Exam Date: 07/16/2023 13:10 Report Date: 07/17/2023 [...] Dictated By: Robert Fitzgerald M.D. Signed By: 07/17/2355 DD/ 1 TD/TT: Reading Assistant: Procedure Note Radiology, Radiologist, MD - 07/31/2023 [place] [address] XRay Report Signed Patient: LAVERN ESCOBEDOMR#: [id number] : 1965Acct:[id number] Age/Sex: 58 / MADM Date: 07/16/23 Loc: RAD Attending Dr: Rey Perez D.P.M. Ordering Physician: Rey Perez D.P.M. Date of Service: 07/16/23 Procedure(s): XR ankle RT min 3V Accession Number(s): [id number] cc: Shaikh Heather Baker; Rey Perez D.P.M. The [place] [id number] Patient Name: LAVERN GARCIA MRN: [id number] date: 1965 Sex: M Assigned Patient Location: [facility] Current Patient Location: Accession/Order Number: [id number] Exam Date: 07/16/2023 13:10 Report Date: 07/17/2023 [...] 06:52 Dictated By: Robert Fitzgerald M.D. Signed By:07/17/2355 DD/ TD/TT: Reading Assistant: us Generic External Data Provider [facility] Final Result documented in this encounter Visit Diagnoses Not on filedocumented in this encounter Care Teams Trim Technician Relationship Specialty Start Date End Date Shaikh Baker MD [address] [place] [address] PCP - General Internal Medicine 06/25/23 12/29/23 Antwan Perez MD [address] [place] [address] PCP - General Family Medicine 12/30/23 Shaikh Baker MD [address] [place] [address] PCP - [facility] 02/25/24 Georgina Velasquez NP [address] [place] [address] Nurse Practitioner Family Medicine 12/30/23 documented as of this encounter
--- OUTSIDE RECORDS SUMMARY | 2024-10-24 08:51 | XMS_ITS | Encounter Summary ---
Author Organization [facility] Address [address] [place] [address] Care Team Providers Care Piped Pocket Machine Operator Name Role Phone Shaikh ALONSO Baker Primary Care Provider [phone] Shaikh ALONSO Baker Primary Care Provider [phone] Antwan Perez MD Primary Care Provider [phone] Georgina Velasquez NP Unavailable Shaikh ALONSO Baker Unavailable [phone] Encounter Details Date Type Department Care [...] Visit [facility] [address] [place] [address] Luci Rios NP [address] [place] [address] 02/23/2025 3:15 PM EDT Procedure Visit [facility] [address] [place] [address] Abisai Boateng, DPM [address] [facility] [address] documented as of this encounter Procedures Procedure Name Priority Date/Time Associated Diagnosis Comments XR ANKLE RT MIN 3V 05/02/2023 2: 36 PM EST documented in this encounter Results * XR ANKLE RT MIN 3V (05/02/2023 2:36 PM EST) Anatomical Region Laterality Modality Other 05/02/2023 2:36 PM EST Narrative 05/02/2023 2:38 PM EST [address] [address] XRay Report Signed Patient: LAVERN ESCOBEDO MR#: [id number] : 1965 Acct:[id number] Age/Sex: 58 / M ADM Date: 05/02/23 Loc: RAD Attending Dr: Rey Perez D.P.M. Ordering Physician: Rey Perez D.P.M. Date of Service: 05/02/23 Procedure(s): XR ankle RT min 3V Accession Number(s): [id number] cc: Shaikh Heather Baker; Rey Perez D.P.M. The [address] [address] Patient Name: LAVERN GARCIA MRN: [id number] date: 1965 Sex: M Assigned Patient Location: RAD Current Patient Location: RAD Accession/Order Number: [id number] Exam Date: 05/02/2023 13:40 Report Date: 05/02/2023 14:36 At the request of: REY PEREZ Procedure: XR ankle RT min 3V PROCEDURE: XR foot RT [...] Blum M.D. Signed By: 05/02/23 1438 DD/ 35 TD/TT: Store Associate: Procedure Note Radiology, Radiologist, MD - 05/02/2023 [place] [address] XRay Report Signed Patient: LAVERN ESCOBEDOMR#: [id number] : 1965Acct:[id number] Age/Sex: 58 / MADM Date: 05/02/23 Loc: RAD Attending Dr: Rey Perez D.P.M. Ordering Physician: Rey Perez D.P.M. Date of Service: 05/02/23 Procedure(s): XR ankle RT min 3V Accession Number(s): [id number] cc: Shaikh Heather Baker; Rey Perez D.P.M. The [place] [address] Patient Name: LAVERN GARCIA MRN: [id number] date: 1965 Sex: M Assigned Patient Location: [facility] Current Patient Location: [facility] Accession/Order Number: [id number] Exam Date: 05/02/2023 13:40 Report Date: 05/02/2023 14:36 At the request of: REY PEREZ Procedure: XR ankle RT min 3V PROCEDURE: XR foot RT [...] M.D. Signed By:05/02/23 1438 DD/ 35 TD/TT: Store Associate: Generic External Data Provider [facility] Final Result documented in this encounter Visit Diagnoses Not on filedocumented in this encounter Care Teams Piped Pocket Machine Operator Relationship Specialty Start Date End Date Shaikh Baker MD PCP - General Internal Medicine 12/05/22 06/24/23 Shaikh Baker MD [address] [place] [address] PCP - General Internal Medicine 06/25/23 12/29/23 Antwan Perez MD [address] [place] [address] PCP - General Family Medicine 12/30/23 Shaikh Baker MD [address] [place] [address] [facility] 02/25/24 Georgina Velasquez NP [address] [place] [address] Nurse Practitioner Family Medicine 12/30/23 documented as of this encounter
--- OUTSIDE RECORDS SUMMARY | 2024-10-24 08:51 | XMS_ITS | Encounter Summary ---
Author Organization [facility] Address [address] [place] [address] Care Team Providers Care Material Chaser Name Role Phone Shaikh ALONSO Baker Primary Care Provider Antwan Perez MD Primary Care Provider Georgina Velasquez NP Unavailable Shaikh ALONSO Baker Unavailable [phone] Encounter Details Date Type Department Care Team (Late st Contact Info) Description 06/26/2023 Clinisync Result Encounter [facility] External Department Unsolicited [...] Visit [facility] [address] [place] [address] Luci Rios NP [address] [place] [address] 02/23/2025 3:15 PM EDT Procedure Visit [facility] [address] [place] [address] Abisai Boateng, DPM [address] [place] [address] documented as of this encounter Procedures Procedure Name Priority Date/Time Associated Diagnosis Comments XR ANKLE RT MIN 3V 06/26/2023 4: 31 PM EST documented in this encounter Results * XR ANKLE RT MIN 3V (06/26/2023 4:31 PM EST) Anatomical Region Laterality Modality Other 06/26/2023 4:31 PM EST Narrative 06/26/2023 4:33 [place] [address] XRay Report Signed Patient: LAVERN ESCOBEDO MR#: [id number] : 1965 Acct:[id number] Age/Sex: 58 / M ADM Date: 06/26/23 Loc: RAD Attending Dr: Rey Perez D.P.M. Ordering Physician: Rey Perez D.P.M. Date of Service: 06/26/23 Procedure(s): XR ankle RT min 3V Accession Number(s): [id number] cc: Shaikh Heather Baker; Rey Perez D.P.M. [address] [address] Patient Name: LAVERN GARCIA MRN: [id number]:[id number] date: 1965 Sex: M Assigned Patient Location: [facility] Current Patient Location: [facility] Accession/Order Number: [id number] Exam Date: 06/26/2023 13:56 Report Date: 06/26/2023 16:31 At the request of: REY PEREZ Procedure: XR ankle RT min 3V PROCEDURE: XR ankle RT min 3V COMPARISON: 06/05/2023 HISTORY: RIGHT ANKLE PAIN FINDINGS: BONES:Remote resection of the talus. Stable ankle fusion with a talar cage. Retrograde intramedullary marci and distally extending through the calcaneus into the tibia. No mechanical failure. Bone graft material in the anterior talus resection bed. No acute fracture, dislocation or mechanical failure . Permeative pattern of the midfoot, osteopenia SOFT TISSUES:Negative. No visible soft tissue swelling. EFFUSION:None visible. OTHER: Negative. XR/XR ankle RT min 3V IMPRESSION: Stable ankle fusion Electronically authenticated by: GERA BLUM Date: 06/26/2023 16:31 Dictated By: Gera Blum M.D. Signed By: 06/26/23 163 DD/ 163 TD/TT: Pastry Sous Chef: Procedure Note Radiology, Radiologist, MD - 07/31/2023 [place] [address] XRay Report Signed Patient: LAVERN ESCOBEDOMR#: [id number] : 1965Acct:[id number] Age/Sex: 58 / MADM Date: 06/26/23 Loc: RAD Attending Dr: Rey Perez D.P.M. Ordering Physician: Rey Perez D.P.M. Date of Service: 06/26/23 Procedure(s): XR ankle RT min 3V Accession Number(s): [id number] cc: Shaikh Heather Baker; Rey Perez D.P.M. The [place] [id number] Patient Name: LAVERN GARCIA MRN: [id number]:[id number] date: 1965 Sex: M Assigned Patient Location: [facility] Current Patient Location: [facility] Accession/Order Number: [id number] Exam Date: 06/26/2023 13:56 Report Date: 06/26/2023 16:31 At the request of: REY EPREZ Procedure: XR ankle RT min 3V PROCEDURE: XR ankle RT min 3V COMPARISON: 06/05/2023 HISTORY: RIGHT ANKLE PAIN FINDINGS: BONES:Remote resection of the talus. Stable ankle fusion with a talarcage. Retrograde intramedullary marci and distally extending through the calcaneus into the tibia. No mechanical failure. Bone graft material in the anteriortalus resection bed. No acute fracture, dislocation or mechanical failure . Permeative pattern of the midfoot, osteopenia SOFT TISSUES:Negative. No visible soft tissue swelling. EFFUSION:None visible. OTHER: Negative. XR/XR ankle RT min 3V IMPRESSION: Stable ankle fusion Electronically authenticated by: GERA BLUM Date: 06/26/2023 16:31 Dictated By: Gera Blum M.D. Signed By:06/26/23 1633 DD/ 1631 TD/TT: Pastry Sous Chef: us Generic External Data Provider [facility] Final Result documented in this encounter Visit Diagnoses Not on filedocumented in this encounter Care Teams Material Chaser Relationship Specialty Start Date End Date Shaikh Baker MD [address] [place] [address] PCP - General Internal Medicine 06/25/23 12/29/23 Antwan Perez MD [address] [place] [address] PCP - General Family Medicine 12/30/23 Shaikh Baker MD [address] [place] [address] PCP - [facility] 02/25/24 Georgina Velasquez NP [address] [place] [address] Nurse Practitioner Family Medicine 12/30/23 documented as of this encounter
--- OUTSIDE RECORDS SUMMARY | 2024-10-24 08:52 | XMS_ITS | Encounter Summary ---
Author Organization [facility] Address [address] [place] [address] Care Team Providers Care Truck Driver Supervisor Name Role Phone Shaikh ALONSO Baker Primary Care Provider [phone] Shaikh ALONSO Baker Primary Care Provider Antwan Perez MD Primary Care Provider Georgina Velasquez NP Unavailable [phone] Shaikh ALONSO Baker Unavailable [phone] Encounter Details Date Type Department Care Team (Late st Contact Info) Description 05/22/2023 Abstract [facility] [address] [place] [address] Shaikh Baker MD [address] [place] [address] Social History Tobacco Use Types Packs/Day Years [...] 11/19/2024 3:40 PM EDT Office Visit [facility] [address] [place] [address] Luci Rios NP [address] [place] [address] 02/23/2025 3:15 PM EDT Procedure Visit [facility] [address] [place] [address] Abisai Boateng, DPM [address] [place], [place] [address] documented as of this encounter Visit Diagnoses Not on filedocumented in this encounter Care Teams Truck Driver Supervisor Relationship Specialty Start Date End Date Shaikh Baker MD PCP - General Internal Medicine 12/05/22 06/24/23 Shaikh Baker MD [address] [place] [address] PCP - General Internal Medicine 06/25/23 12/29/23 Antwan Perez MD [address] [place] [address] PCP - General Family Medicine 12/30/23 Shaikh Baker MD [address] [place] [address] PCP - [facility] 02/25/24 Georgina Velasquez NP [address] [place] [address] Nurse Practitioner Family Medicine 12/30/23 documented as of this encounter
--- OUTSIDE RECORDS SUMMARY | 2024-10-24 08:52 | XMS_ITS | Encounter Summary ---
Author Organization [facility] Address [address] [place] [address] Care Team Providers Care Greaser Operator Name Role Phone Shaikh ALONSO Baker Primary Care Provider Shaikh ALONSO Baker Primary Care Provider Antwan Perez MD Primary Care Provider Georgina Velasquez NP Unavailable [phone] Shaikh ALONSO Baker Unavailable [phone] Encounter Details Date Type Department Care Team (Late st Contact Info) Description 05/25/2023 Clinisync Result Encounter [facility] External Department Unsolicited [...] Visit [facility] [address] [place] [address] Luci Rios NP [address] [place] [address] 02/23/2025 3:15 PM EDT Procedure Visit [facility] [address] [place] [address] Abisai Boateng, DPM [address] [place] [address] documented as of this encounter Procedures Procedure Name Priority Date/Time Associated Diagnosis Comments XR ANKLE LT MIN 3V 05/25/2023 6: 11 PM EST documented in this encounter Results * XR ANKLE LT MIN 3V (05/25/2023 6:11 PM EST) Anatomical Region Laterality Modality Other 05/25/2023 6:11 PM EST Narrative 05/25/2023 6:14 PM EST [address] [address] XRay Report Signed Patient: LAVERN ESCOBEDO MR#: [id number] : 1965 Acct:[id number] Age/Sex: 58 / M ADM Date: 05/23/23 Loc: RAD Attending Dr: Rey Perez D.P.M. Ordering Physician: Rey Perez D.P.M. Date of Service: 05/23/23 Procedure(s): XR ankle LT min 3V Accession Number(s): [id number] cc: Shaikh Heather Baker; Rey Perez D.P.M. [address] [address] Patient Name: LAVERN GARCIA MRN: [id number] date: 1965 Sex: M Assigned Patient Location: [facility] Current Patient Location: Accession/Order Number: [id number] Exam Date: 05/23/2023 14:15 Report Date: 05/25/2023 18:11 At the request of: REY PREEZ Procedure: XR ankle LT min 3V EXAM: XR ankle LT min 3V HISTORY: POST OP IMAGING COMPARISON: None. FINDINGS/IMPRESSION: 1. Intramedullary marci of the distal tibia extending to the calcaneus. There is screw fixation at the calcaneus. There is a talar implant. 2. No acute fracture. 3. Soft tissue swelling about the ankle. Electronically authenticated by: SONY RAE Date: 05/25/2023 18:11 Dictated By: Sony Rae M.D. Signed By: 05/25/231813 DD/ 10 TD/TT: Tmd Teacher: Procedure Note Radiology, Radiologist, - 05/25/2023 [place] [address] XRay Report Signed Patient: LAVERN ESCOBEDOMR#: [id number] : 1965Acct:[id number] Age/Sex: 58 / MADM Date: 05/23/23 Loc: RAD Attending Dr: Rey Perez D.P.M. Ordering Physician: Rey Perez D.P.M. Date of Service: 05/23/23 Procedure(s): XR ankle LT min 3V Accession Number(s): [id number] cc: Shaikh Heather Baker; Rey Perez D.P.M. The [place] [address] Patient Name: LAVERN GARCIA MRN: [id number] date: 1965 Sex: M Assigned Patient Location: [facility] Current Patient Location: Accession/Order Number: [id number] Exam Date: 05/23/2023 14:15 Report Date: 05/25/2023 18:11 At the request of: REY PEREZ Procedure: XR ankle LT min 3V EXAM: XR ankle LT min 3V HISTORY: POST OP IMAGING COMPARISON: None. FINDINGS/IMPRESSION: 1. Intramedullary marci of the distal tibia extending to the calcaneus.There is screw fixation at the calcaneus. There is a talar implant. 2. No acute fracture. 3. Soft tissue swelling about the ankle. Electronically authenticated by: SONY RAE Date: 05/25/2023 18:11 Dictated By: Sony Rae M.D. Signed By:05/25/231813 DD/ 10 TD/TT: Tmd Teacher: us Generic External Data Provider [facility] Final Result documented in this encounter Visit Diagnoses Not on filedocumented in this encounter Care Teams Greaser Operator Relationship Specialty Start Date End Date Shaikh Baker MD PCP - General Internal Medicine 12/05/22 06/24/23 Shaikh Baker MD [address] [place] [address] PCP - General Internal Medicine 06/25/23 12/29/23 Antwan Perez MD [address] [place] [address] PCP - General Family Medicine 12/30/23 Shaikh Baker MD [address] [place] [address] PCP - [facility] 02/25/24 Georgina Velasquez NP [address] [place] [address] Nurse Practitioner Family Medicine 12/30/23 documented as of this encounter
--- OUTSIDE RECORDS SUMMARY | 2024-10-24 08:52 | XMS_ITS | Encounter Summary ---
Author Organization [facility] Address [address] [place] [address] Care Team Providers Care Help Desk Assistant Name Role Phone Shaikh ALONSO Baker Primary Care Provider Shaikh ALONSO Baker Primary Care Provider Antwan Perez MD Primary Care Provider [phone] Georgina Velasquez NP Unavailable [phone] Shaikh ALONSO Baker Unavailable [phone] Encounter Details Date Type Department Care [...] Visit [facility] [address] [place] [address] Luci Rios NP [address] [place] [address] 02/23/2025 3:15 PM EDT Procedure Visit [facility] [place] [address] Abisai Boateng, DPM [address] [place] [address] documented as of this encounter Procedures Procedure Name Priority Date/Time Associated Diagnosis Comments XR FOOT RT MIN 3V 05/25/2023 7:2 5 PM EST documented in this encounter Results * XR FOOT RT MIN 3V (05/25/2023 7:25 PM EST) Anatomical Region Laterality Modality Other 05/25/2023 7:25 PM EST Narrative 05/25/2023 7:27 PM EST [address] [address] XRay Report Signed Patient: LAVERN ESCOBEDO MR#: [id number] : 1965 Acct:[id number] Age/Sex: 58 / M ADM Date: 05/23/23 Loc: RAD Attending Dr: Rey Perez D.P.M. Ordering Physician: Rey Perez D.P.M. Date of Service: 05/23/23 Procedure(s): XR foot RT min 3V Accession Number(s): [id number] cc: Shaikh Heather Baker; Rey Perez D.P.M. The [address] [id number] Patient Name: LAVERN GARCIA MRN: [id number]:[id number] date: 1965 Sex: M Assigned Patient Location: [facility] Current Patient Location: RAD Accession/Order Number: [id number] Exam Date: 05/23/2023 14:15 Report Date: 05/25/2023 19:25 At the request of: REY PEREZ Procedure: XR foot RT min 3V EXAM: XR foot RT min 3V HISTORY: RIGHT FOOT POST OP COMPARISON: 05/02/2023 FINDINGS/IMPRESSION: 1. No acute fracture or dislocation 2. Intramedullary marci of the distal tibia extending to the calcaneus. There is a talar prosthesis. 3. Mild degeneration of the first metatarsophalangeal joint. Electronically authenticated by: SONY RAE Date: 05/25/2023 19:25 Dictated By: Sony Rae M.D. Signed By: 05/25/231926 DD/ 24 TD/TT: It Support Engineer: Procedure Note Radiology, Radiologist, MD - 07/31/2023 [place] [address] XRay Report Signed Patient: LAVERN ESCOBEDOMR#: [id number] : 1965Acct:[id number] Age/Sex: 58 / MADM Date: 05/23/23 Loc: RAD Attending Dr: Rey Perez D.P.M. Ordering Physician: Rey Perez D.P.M. Date of Service: 05/23/23 Procedure(s): XR foot RT min 3V Accession Number(s): [id number] cc: Shaikh Heather Baker; Rey Perez D.P.M. The [place] [id number] Patient Name: LAVERN GARCIA MRN: [facility]:[id number] date: 1965 Sex: M Assigned Patient Location: [facility] Current Patient Location: [facility] Accession/Order Number: [id number] Exam Date: 05/23/2023 14:15 Report Date: 05/25/2023 19:25 At the request of: REY PEREZ Procedure: XR foot RT min 3V EXAM: XR foot RT min 3V HISTORY: RIGHT FOOT POST OP COMPARISON: 05/02/2023 FINDINGS/IMPRESSION: 1. No acute fracture or dislocation 2. Intramedullary marci of the distal tibia extending to the calcaneus.There is a talar prosthesis. 3. Mild degeneration of the first metatarsophalangeal joint. Electronically authenticated by: SONY RAE Date: 05/25/2023 19:25 Dictated By: Sony Rae M.D. Signed By:05/25/231926 DD/ 24 TD/TT: It Support Engineer: us Generic External Data Provider [facility] Final Result documented in this encounter Visit Diagnoses Not on filedocumented in this encounter Care Teams Help Desk Assistant Relationship Specialty Start Date End Date Shaikh Baker MD PCP - General Internal Medicine 12/05/22 06/24/23 Shaikh Baker MD [address] [place] [address] PCP - General Internal Medicine 06/25/23 12/29/23 Antwan Perez MD [address] [place] [address] PCP - General Family Medicine 12/30/23 Shaikh Baker MD [address] [place] [address] PCP - [facility] 02/25/24 Georgina Velasquez NP [address] [place] [address] Nurse Practitioner Family Medicine 12/30/23 documented as of this encounter
--- OUTSIDE RECORDS SUMMARY | 2024-10-24 08:52 | XMS_ITS | Encounter Summary ---
Author Organization [facility] Address [address] [place] [address] Care Team Providers Care Snowboarding Instructor Name Role Phone Shaikh ALONSO Baker Primary Care Provider [phone] Shaikh ALONSO Baker Primary Care Provider Antwan Perez MD Primary Care Provider Georgina Velasquez NP Unavailable Shaikh ALONSO Baker Unavailable [phone] Encounter Details Date Type Department Care Team (Late st Contact Info) Description 05/30/2023 Orders Only [facility] [address] [place] [address] Bharath Perez Social History Tobacco Use Types [...] Office Visit [facility] [address] [place] [address] Luci Rios DRAGGER [address] [place] [address] 02/23/2025 3:15 PM EDT Procedure Visit [facility] [address] [place] [address] Abisai Boateng DPM [address] [place], [place] [address] documented as of this encounter Procedures Procedure Name Priority Date/Time Associated Diagnosis Comments XR ANKLE 3+ VIEWS RIGHT Routine 05/23/2023 10:04 AM EST documented in this encounter Results * XR ankle 3+ views right (05/23/2023 10:04 AM EST) Anatomical Region Laterality Modality Lower Extremities, Ankle Right Radiogr aphic Imaging us Bharath Perez IMEthan XR PROCEDURES Final Resul t documented in this encounter Visit Diagnoses Not on filedocumented in this encounter Care Teams Snowboarding Instructor Relationship Specialty Start Date End Date Shaikh Baker MD PCP - General Internal Medicine 12/05/22 06/24/23 Shaikh Baker MD [address] [place] [address] PCP - General Internal Medicine 06/25/23 12/29/23 Antwan Perez MD [address] [place] [address] PCP - General Family Medicine 12/30/23 Shaikh Baker MD [address] [place] [address] PCP - [facility] 02/25/24 Georgina Velasquez NP [address] [place] [address] Nurse Practitioner Family Medicine 12/30/23 documented as of this encounter
--- OUTSIDE RECORDS SUMMARY | 2024-10-24 08:52 | XMS_ITS | Encounter Summary ---
Author Organization [facility] Address [address] [place] [address] Care Team Providers Care Sr. Unix System Administrator Name Role Phone Shaikh ALONSO Baker Primary Care Provider Shaikh ALONSO Baker Primary Care Provider Antwan Perez MD Primary Care Provider [phone] Georgina Velasquez NP Unavailable [phone] Shaikh ALONSO Baker Unavailable [phone] Encounter Details Date Type Department Care [...] Visit [facility] [address] [place] [address] Luci Rios NP [address] [place] [address] 02/23/2025 3:15 PM EDT Procedure Visit [facility] [address] [place] [address] Abisai Boateng, DPM [address] [facility] [place] [address] documented as of this encounter Procedures Procedure Name Priority Date/Time Associated Diagnosis Comments XR ANKLE RT MIN 3V 05/25/2023 6: 11 PM EST documented in this encounter Results * XR ANKLE RT MIN 3V (05/25/2023 6:11 PM EST) Anatomical Region Laterality Modality Other 05/25/2023 6:11 PM EST Narrative 05/29/2023 9:09 AM EST [address] [address] XRay Report Signed Patient: LAVERN ESCOBEDO MR#: [id number] : 1965 Acct:[id number] Age/Sex: 58 / M ADM Date: 05/23/23 Loc: RAD Attending Dr: Rey Perez D.P.M. Ordering Physician: Rey Perez D.P.M. Date of Service: 05/23/23 Procedure(s): XR ankle RT min 3V Accession Number(s): [id number] cc: Shaikh Heather Baker; Rey Perez D.P.M. [address] [address] Patient Name: LAVERN GARCIA MRN: [id number]:[id number] date: 1965 Sex: M Assigned Patient Location: RAD Current Patient Location: RAD Accession/Order Number: [id number] Exam Date: 05/23/2023 14:15 Report Date: 05/25/2023 18:11 At the request of: REY PEREZ Procedure: XR ankle RT min 3V EXAM: XR ankle LT min 3V HISTORY: POST OP IMAGING COMPARISON: None. FINDINGS/IMPRESSION: 1. Intramedullary marci of the distal tibia extending to the calcaneus. There is screw fixation at the calcaneus. There is a talar implant. 2. No acute fracture. 3. Soft tissue swelling about the ankle. Electronically authenticated by: SHWETHA RAE Date: 05/25/2023 18:11 Dictated By: Shwetha Rae M.D. Signed By: 05/29/23908 DD/ 10 TD/TT: Vibrator Operator: Procedure Note Radiology, Radiologist, - 07/31/2023 [place] [address] XRay Report Signed Patient: LAVERN ESCOBEDOMR#: [id number] : 1965Acct:[id number] Age/Sex: 58 / MADM Date: 05/23/23 Loc: RAD Attending Dr: Rey Perez D.P.M. Ordering Physician: Rey Perez D.P.M. Date of Service: 05/23/23 Procedure(s): XR ankle RT min 3V Accession Number(s): [id number] cc: Shaikh Heather Baker; Rey Perez D.P.M. The [place] [phone] Patient Name: LAVERN GARCIA MRN: [facility]:[id number] date: 1965 Sex: M Assigned Patient Location: [facility] Current Patient Location: [facility] Accession/Order Number: [id number] Exam Date: 05/23/2023 14:15 Report Date: 05/25/2023 18:11 At the request of: REY PEREZ Procedure: XR ankle RT min 3V EXAM: XR ankle LT min 3V HISTORY: POST OP IMAGING COMPARISON: None. FINDINGS/IMPRESSION: 1. Intramedullary marci of the distal tibia extending to the calcaneus.There is screw fixation at the calcaneus. There is a talar implant. 2. No acute fracture. 3. Soft tissue swelling about the ankle. Electronically authenticated by: SHWETHA RAE Date: 05/25/2023 18:11 Dictated By: Shwetha Rae M.D. Signed By:05/29/2309 DD/ 10 TD/TT: Vibrator Operator: us Generic External Data Provider [facility] Final Result documented in this encounter Visit Diagnoses Not on filedocumented in this encounter Care Teams Sr. Unix System Administrator Relationship Specialty Start Date End Date Shaikh Baker MD PCP - General Internal Medicine 12/05/22 06/24/23 Shaikh Baker MD [address] [place] [address] PCP - General Internal Medicine 06/25/23 12/29/23 Antwan Perez MD [address] [place] [address] PCP - General Family Medicine 12/30/23 Shaikh Baker MD [address] [place] [address] [facility]/25/24 Georgina Velasquez NP [address] [place] [address] Nurse Practitioner Family Medicine 12/30/23 documented as of this encounter
[2024-10-24 09:50] LABS: Anion Gap 14.6; Calcium 8.8 mg/dL (8.5-10.1); Carbon Dioxide 27.2 mmol/L (21.0-32.0); Chloride 102 mmol/L (98-107); Estimated GFR (African America >60 (>=60 mL/min/1.73m^2); Estimated GFR (Non-African Ame >60 (>=60 mL/min/1.73m^2); Glucose 143 mg/dL (74-106); Potassium 4.8 mmol/L (3.5-5.1); Sodium 139 mmol/L (136-145)
== END 2024-10-24 08:44 | disposition home or self-care (01) ==
PROVIDERS: PCP Nurse Practitioner; Visit Provider Nurse Practitioner
DX: R79.89 Other specified abnormal findings of blood chemistry (principal); I10 Essential (primary) hypertension; E11.9 Type 2 diabetes mellitus without complications; Z79.4 Long term (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; N28.1 Cyst of kidney, acquired
CPT/HCPCS: 36415; 76775; 80048

== ENCOUNTER 2024-11-30 15:02 | Outpatient (OUT) | payer BC, SELFPAY ==
--- OUTSIDE RECORDS SUMMARY | 2024-11-19 14:51 | XMS_ITS ---
Author Name Auto Generated Organization [place] Care Team Providers Care Skid Worker Name Role Phone DEANN GILBERT Attending Unavailable DEANN GILBERT Attending Unavailable NORA CHOWDARY Attending Unavailable DEANN GILBERT Attending Unavailable DEANN GILBERT Attending Unavailable DEANN GILBERT Attending Unavailable MARQUIS BAKER Attending UnavailNORA Gomez Attending Unavailable MARQUIS BAKER Referring Unavailabl e MARQUIS BAKER Attending Unavailabl e PROBLEMS No Problem Records Found PROCEDURES No Procedure Records Found RESULTS No Result Records Found ALLERGIES No Allergies Records Found ENCOUNTERS ADMIT/DISCHARGE ACCOUNT NUMBER ADMITTING ENCOUNTER CLASS LOCATION SOURCE 11/19/2024/ 5 [id number] Ambulatory Building:[facility] 10/08/2024/ 5 [id number] Ambulatory Building:[facility] 09/17/2024/ 5 [id number] Ambulatory Building:[facility] 08/24/2024/ 5 [id number] Ambulatory Building:[facility] 08/18/2024/ 5 [id number] Ambulatory Building:[facility] 07/29/2024/ 5 [id number] Ambulatory Building:[facility] 04/27/2024/ 4 [id number] Ambulatory Building:[facility] 02/24/2024/ 4 [id number] Ambulatory Building:[facility] 01/22/2024/ 4 [id number] Ambulatory Building:[facility] PAYERS ENCOUNTER GUARANTOR PAYER SUBSCRIBER SOURCE 11/19/2024 LAVERN GRECOB: [place] [address]Arb: (HP) (WP) Primary Insurance:[facility] licy Number: [id number] ctive Date:2022-05-27 LAVERN BURK: [id number] [place] [address] [facility] 10/08/2024 LAVERN GRECOB: [place] [address]Spi: (HP) (WP) Primary Insurance:[employer] licy Number: [id number] ctive Date:2022-05-27 LAVERN GARCIADOB: [id number] [place] [address] [facility] EPIC 09/17/2024 LAVERN GARCIADOB: [place] [address]Bda: (HP) (WP) Primary Insurance:BCBSPo licy Number: [id number] ctive Date:2022-05-27 LAVERN GARCIADOB: [id number] [place] [address] [facility] EPIC 08/24/2024 LAVERN GARCIADOB: [place] [address]Isf: (HP) (WP) Primary Insurance:BCBSPo licy Number: [id number] ctive Date:2022-05-27 LAVERN GARCIADOB: [id number] [place] [address] [facility] EPIC 08/18/2024 LAVERN GARCIADOB: [id number] [place] [address]Erz: (HP) (WP) Primary Insurance:BCBSPo licy Number: [id number] ctive Date:2022-05-27 LAVERN GARCIADOB: [id number] [place] [address] [facility] 07/29/2024 LAVERN GARCIADOB: [id number] [place] [address]Abx: (HP) (WP) Primary Insurance:BCBSPo licy Number: [id number] ctive Date:2022-05-27 LAVERN GARCIADOB: [id number] [place] [address] [facility] EP[facility] 04/27/2024 LAVERN GARCIADOB: [id number] [place] [address]Isg: (HP) (WP) Primary Insurance:BCBSPo licy Number: [id number] ctive Date:2022-05-27 LAVERN GARCIADOB: [id number] [place] [address] [facility] EP[facility] 02/24/2024 LAVERN GARCIADOB: [id number] [place] [address]Gcz: (HP) (WP) Primary Insurance:BCBSPo licy Number: [id number] ctive Date:2022-05-27 LAVERN GARCIADOB: [id number] [place] [address] [facility] EP[facility] 01/22/2024 LAVERN GARCIADOB: [id number] [place] [address]Olt: (HP) (WP) Primary Insurance:BCBSPo licy Number: [id number] ctive Date:2022-05-27 LAVERN GARCIADOB: [id number] [place] [address] [facility] EPIC
--- OUTSIDE RECORDS SUMMARY | 2024-11-19 15:40 | XMS_ITS | Encounter Summary ---
Author Organization [facility] Address [address] [place] [address] Care Team Providers Care Munitions Factory Worker Name Role Phone Antwan Perez MD Primary Care Provider [phone] Georgina Velasquez NP Unavailable [phone] Reason for Referral * Medications - Denied Specialty Diagnoses / Procedures Referred By Magdy charlton Referred To Contact Diagnoses Type 2 diabetes mellitus without complications (HCC) Luci Rios NP [address] [place] [address] Phone: tel: fax: Referral ID Status Reason Start Date Expiration Date Visits Re quested Visits Authorized [id number] Denied 1 1 Reason for Visit * Reason Comments Diabetes Encounter Details Date Type Department Care Team (Late st Contact Info) Description 11/19/2024 3:40 PM EDT Office Visit [facility] [address] [place] [address] Luci Rios NP [address] [place] [address] Type 2 diabetes mellitus with diabetic polyneuropathy, with long-term current use of insulin (HCC) (Primary Dx); Primary hypertension ; Morbid (severe) obesity due to excess calories ([facility]); Type 2 diabetes mellitus without complication, with long-term current use of insulin (HCC); Resistant hypertension ; Hyperlipidemia, unspecified hyperlipidemia type ; Type 2 diabetes mellitus without complications (HCC); Severe persistent asthma without complication (HCC); Gastroesophageal reflux disease without esophagitis Social History Tobacco Use Types Packs/Day Years [...] Never 01/21/2024 How often do you attend [facility] or scientologist services? More than 4 times per year 01/21/2024 Do you belong to any clubs o r organizations such as confucianist groups, unions, fraternal or athletic groups, or [...] Recorded Patient Health Questionnaire-2 Score 0 01/22/2024 [facility] of Occupat ional Health - Occupational Stress Questionnaire Answer Date Recorded [...] any time in the past 12 m [facility], were you homeless or living in a prison (including now)? No 01/21/2024 Sex and Gender Information Value Date Recorded Sex Assigned at Not on file Legal Sex Male 11:39 PM EDT Gender Identity Not on file Sexual Orientation Not on file documented as of this encounter Last Filed Vital Signs Vital Sign Reading Time Taken Comments Blood Pressure 124/78 11/19/2024 3:43 PM EDT Pulse 81 11/19/2024 3:43 PM EDT Temperature 36.6 C (97.8 F) 11/19/2024 3:43 PM EDT Respiratory Rate 18 11/19/2024 3:43 PM EDT Oxygen Saturation 96% 11/19/2024 3:43 PM EDT Inhaled Oxygen Concentration - - Weight 111 kg (245 lb 12.8 oz) 11/19/2024 3:43 P M EDT Height - - Body Mass Index 39.67 08/24/2024 3:27 PM EDT documented in this encounter Progress Notes * Luci Blanca, HEALTH SERVICE COORDINATOR - 11/19/2024 3:40 PM EDT Images from the original note were not included. Dante Dewey is a 59 y.o. male presents with chief complaint of Diabetes HPI: CGM: Av d 160, 72% TIR, 22% high, 6 % very high 14: 168, 63%, 26%, 11%, GMI 7.3 30: 163, 68%, 25% 8%, 7.2 90: 159, 71%, 23%, 6%, 7.1 Hypertension This is a chronic problem. The current episode started more than 1 year ago. The problem is unchanged. The problem is controlled. Associated symptoms include peripheral edema. Pertinent negatives include no chest pain, headaches, orthopnea or shortness of breath. There are no associated agents to hy pertension. Risk factors for coronary artery disease include diabetes mellitus, dyslipidemia, male gender and obesity. Past treatments include beta blockers, calcium channel blockers, diuretics and angiotensin blockers. The current treatment provides significant improvement. There are no complianceproblems. There is no history of CAD/NC, heart failure or retinopathy. Diabetes He presents for his follow-up diabetic visit. He has type 2 diabetes mellitus. His disease course has been improving. There are no hypoglycemic associated symptoms. Pertinent negatives for hypoglycemia include no dizziness, headaches, nervousness/anxiousness, seizures or tremors. Pertinent negatives for diabetes include no chest pain, no fatigue, no polydipsia, no polyphagia and no polyuria. There are no hypoglycemic complications. Symptoms are stable. Diabetic complications include nephropathy. Pertinent negatives for diabetic complications include no peripheral neuropathy or retinopathy. Risk factors for coronary artery disease include diabetes mellitus, dyslipidemia, hypertension, male sex and obesity. Current diabetic treatment includes oral agent (triple therapy) and insulin injections. An VERONICA inhibitor/angiotensin II receptor blanca is being taken. He does not see a tankman.Eye exam is not current. SUBJECTIVE: MEDICATIONS: Current Outpatient Medications Medication Instructions albuterol HFA 90 mcg/act inhaler 2 puffs, Inhalation, Every 4 hours PRN amLODIPine (NORVASC) 10 mg, Oral, Daily aspirin 81 mg, Oral, Daily RT atorvastatin (LIPITOR) 40 mg, Oral, Daily carvedilol (COREG) 25 mg, Oral, 2 times daily with meals Continuous Glucose Steward/Stewardess Economy Class (FreeStyle Era 2 [place]) device 1 each, Does not apply, 4 times daily Continuous Glucose Sensor (FreeStyle Era 3 Plus Sensor) misc 1 each, Other, Continuous, USE 1 SENSOR EVERY 15 DAYS TO MONITOR BLOOD SUGAR. dapagliflozin (FARXIGA) 5 mg, Oral, Daily Zqxtalolirp-Dysgyovch-Zmxbzq (Trelegy Ellipta) 200-62.5-25 MCG/ACT aerosol powder 1 puff, Inhalation, Daily, INHALE 1 PUFF ONCE DAILY, rinse mouth after use glipiZIDE (GLUCOTROL) 5 mg, Oral, 2 times daily before meals insulin glargine-yfgn (SEMGLEE (YFGN)) 20 Units, Subcutaneous, Nightly, Inject 20 Units under the skin at bedtime insulin pen needle (B-D ULTRAFINE III SHORT PEN) 31G X 8 mm misc Daily losartan-hydroCHLOROthiazide (Hyzaar) 100-25 MG tablet 1 tablet, Oral, Daily metFORMIN (GLUCOPHAGE) 850 mg, Oral, 2 times daily with meals omeprazole (PRILOSEC) 40 mg, Oral, Daily before breakfast spironolactone (ALDACTONE) 50 mg, Oral, Daily ALLERGIES: No Known Allergies REVIEW OF SYMPTOMS: Review of Systems Constitutional: Negative for activity change, appetite change, fatigue and unexpected weight change. HENT: Negative for ear pain, nosebleeds, sneezing, trouble swallowing and voice change. Eyes: Negative for pain, discharge and visual disturbance. Respiratory: Negative for apnea, chest tightness, shortness of breath and wheezing. Cardiovascular: Positive for leg swelling. Negative for chest pain and orthopnea. Gastrointestinal: Negative for abdominal distention, blood in stool, constipation and diarrhea. Genitourinary: Negative for decreased urine volume, difficulty urinating, dysuria and hematuria. Musculoskeletal: Positive for arthralgias. Skin: Negative for color change. Neurological: Negative for dizziness, tremors, seizures and headaches. Psychiatric/Behavioral: Negative for agitation, decreased concentration, hallucinations, self-injury and suicidal ideas. The patient is not nervous/anxious. Hematological: Negative for adenopathy. Does not bruise/bleed easily. Endocrine: Negative for cold intolerance, heat intolerance, polydipsia, polyphagia and polyuria. Allergic/Immunologic: Negative for environmental allergies and food allergies. PAST MEDICAL HISTORY Past Medical History: Diagnosis Date AYESHA (acute kidney injury) Arthritis of ankle, right Asthma (HCC) Avascular necrosis of talus, right (HCC) Dietrich cyst, right Enlarged and hypertrophic nails Eosinophilia Equinus contracture of right ankle Gastroesophageal reflux disease Hemorrhoids Hyperlipemia, mixed Hypertension Onychomycosis of toenail Osteoarthritis of both knees, unspecified osteoarthritis type Osteochondral defect of talus Pain, foot, right, chronic Peroneal tendinitis, right Right ankle pain Right leg swelling Severe persistent asthma (HCC) Skin tags, multiple acquired Sprain of right ankle, sequela T2DM (type 2 diabetes mellitus) ([facility]) Past Surgical History: Procedure Laterality Date ANKLE SURGERY Right COLONOSCOPY 2021 HEMORRHOID SURGERY 09/10/2022 banding of hemorrhoids family history includes Diabetes in his sister; Stroke in his father. OBJECTIVE: Visit Vitals BP 124/78 (BP Location: Left arm, Patient Position: Sitting, BP Cuff Size: Large adult) Pulse 81 Temp 97.8 ??F (Temporal) Resp 18 Wt 245 lb 12.8 oz SpO2 96% BMI 39.67 kg/m?? Smoking Status Former BSA 2.27 m?? Physical Exam Vitals and nursing note reviewed. [...] Effort: Pulmonary effort is normal. Breath sounds: No wheezing or rhonchi. Abdominal: General: Bowel sounds are normal. Palpations: Abdomen is soft. Musculoskeletal: Cervical back: Neck supple. Right lower leg: Edema present. Left lower leg: Edema present. Comments: 1+ RLE, ankle as well Calf is soft Right knee: mild swelling, no laxity, +crepitus Skin: General: Skin is warm and dry. Capillary Refill: Capillary refill takes 2 to 3 seconds. Neurological: General: No focal deficit present. Mental Status: He is alert. Psychiatric: Mood and Affect: Mood normal. Behavior: Behavior normal. Thought Content: Thought content normal. Judgment: Judgment normal. ASSESSMENT AND PLAN: Follow up in about 6 weeks (around 12/31/2024) for Recheck. Problem List Items Addressed This Visit Type 2 diabetes mellitus with diabetic polyneuropathy, with long-term current use of insulin (HCC) Relevant Medications glipiZIDE (Glucotrol) 5 MG tablet insulin glargine-yfgn (Semglee, yfgn,) 100 UNIT/ML injection insulin pen needle (B-D ULTRAFINE III SHORT PEN) 31G X 8 mm misc Severe persistent asthma without complication (HCC) Relevant Medications Bhixypkjzcx-Zifufhruz-Ivxqkd (Trelegy Ellipta) 200-62.5-25 MCG/ACT aerosol powder Hyperlipidemia Relevant Medications atorvastatin (Lipitor) 40 MG tablet metFORMIN (Glucophage) 850 MG tablet Type 2 diabetes mellitus without complications (HCC) Check blood sugars daily, notify if <70 or >200. Take medications (pills or insulin) as directed. Monitor for s/s of hypoglycemia (sweaty, dizziness, nausea, vomiting, or shakiness). Watch for increase in thirst, urination, or appetite. Inspect feet frequently monitoring for open wounds , andalso recommend yearly eye exam. Pt should attempt to remain as physically active as chronic conditions allow, as well as trying to follow a diet low in carbohydrates, and simple sugars. Current med: statin, arb, glipizide, insulin, farxiga A1c 7.0% 11/19/24, 8.3% 07/18/24 Relevant Medications Continuous Glucose Sensor (FreeStyle Era 3 Plus Sensor) [facility] dapagliflozin (Farxiga) 5 MG Other Relevant Orders POCT glycosylated hemoglobin (Hb A1C) docked device (Completed) Morbid (severe) obesity due to excess calories ([facility]) Discussed with patient their BMI (actual, verses recommended). We have also discussed lifestyle modifications: attempts to perform physical activity as chronic conditions allow, also to monitor dietary intake: increasing protein/fruits/veggies and lowering carb intake (unless contraindicated). Limit sodas, juices, and sugary drinks. Primary hypertension - Primary Please check blood pressure daily and record DASH diet Limit caffeine Take medication as directed Contact office if chest pain, pressure, dizziness, shortness of breath, swelling legs Recommend slow position changes Current meds: amlodipine, carvedilol, losartan/hydrochlorothiazide, aldactone Relevant Medications amLODIPine (Norvasc) 10 MG tablet losartan-hydroCHLOROthiazide (Hyzaar) 100-25 MG tablet Other Visit Diagnoses Resistant hypertension Relevant Medications carvedilol (Coreg) 25 MG tablet spironolactone (Aldactone) 50 MG tablet Gastroesophageal reflux disease without esophagitis Relevant Medications omeprazole (PriLOSEC) [address] capsule * REKHA GRIDER - 11/19/2024 3:40 PM EDT Pt needs a refill on the insulin pen * Luci Rios NP - 11/19/2024 7:31 AM EDTAssociated Problem(s): Type 2 diabetes mellitus without complications (HCC) Check blood sugars daily, notify if <70 or >200. Take medications (pills or insulin) as directed. Monitor for s/s of hypoglycemia (sweaty, dizziness, nausea, vomiting, or shakiness). Watch for increase in thirst, urination, or appetite. Inspect feet frequently monitoring for open wounds , andalso recommend yearly eye exam. Pt should attempt to remain as physically active as chronic conditions allow, as well as trying to follow a diet low in carbohydrates, and simple sugars. Current med: statin, arb, glipizide, insulin, farxiga A1c 7.0% 11/19/24, 8.3% 07/18/24 * Luci Rios NP - 11/19/2024 7:30 AM EDTAssociated Problem(s): Morbid (severe) obesity due to excess calories ([facility]) Discussed with patient their BMI (actual, verses recommended). We have also discussed lifestyle modifications: attempts to perform physical activity as chronic conditions allow, also to monitor dietary intake: increasing protein/fruits/veggies and lowering carb intake (unless contraindicated). Limit sodas, juices, and sugary drinks. * Luci Rios NP - 11/19/2024 7:30 AM EDTAssociated Problem(s): Primary hypertension Please check blood pressure daily and record DASH diet Limit caffeine Take medication as directed Contact office if chest pain, pressure, dizziness, shortness of breath, swelling legs Recommend slow position changes Current meds: amlodipine, carvedilol, losartan/hydrochlorothiazide, aldactone documented in this encounter Plan of Treatment Upcoming Encounters Date Type Department Care Team (Late st Contact Info) Description 12/31/2024 3:40 PM EDT [facility] [address] [place] [address] Luci Rios NP [address] [place] [address] 02/23/2025 3:15 PM EDT Procedure Visit [facility] [address] [place] [id number] Abisai Boateng DPM [address] [place] [address] documented as of this encounter Procedures Procedure Name Priority Date/Time Associated Diagnosis Comments POCT GLYCOSYLATED HEMOGLOBIN (HGB A1C) Routine 11/19/2024 3:57 PM EDT Type 2 diabetes mellitus without complication, with long-term current use of insulin (HCC) documented in this encounter Results * (ABNORMAL) POCT glycosylated hemoglobin (Hb A1C) docked device (11/19/2024 3:57 PM EDT) Hemoglobin A1C 7.0 Blood Venous blood specimen / Unknown 11/19/2024 3:57 PM EDT Luci Rios NP POINT OF CARE TEST ENTER/EDIT O RDERABLES Final Result documented in this encounter Visit Diagnoses Diagnosis Type 2 diabetes mellitus with diabetic polyneuropathy, with long-term current use of insulin ([facility])- Primary Primary hypertension Unspecified essential hypertension Morbid (severe) obesity due to excess calories ([facility]) Type 2 diabetes mellitus without complication, with long-term current use of insulin ([facility]) Resistant hypertension Hyperlipidemia, unspecified hyperlipidemia type Type 2 diabetes mellitus without complications ([facility]) Severe persistent asthma without complication ([facility]) Gastroesophageal reflux disease without esophagitis Esophageal reflux documented in this encounter Care Teams Munitions Factory Worker Relationship Specialty Start Date End Date Antwan Perez MD [address] [place] [address] PCP - General Family Medicine 12/30/23 Georgina Velasquez NP [address] [place] [address] Nurse Practitioner Family Medicine 12/30/23 documented as of this encounter
--- OUTSIDE RECORDS SUMMARY | 2024-11-30 15:06 | XMS_ITS | Encounter Summary ---
Author Organization [facility] Address [address] [place] [address] Care Team Providers Care Electronics Engineering Technologist Name Role Phone Shaikh ALONSO Baker Primary Care Provider Antwan Perez MD Primary Care Provider [phone] Georgina Velasquez NP Unavailable Shaikh ALONSO Baker Unavailable [phone] Encounter Details Date Type Department Care Team (Late st Contact Info) Description 07/29/2023 Orders [address] [facility] [address] [place] [address] Bharath Perez Social History Tobacco [...] 12/31/2024 3:40 PM EDT Office Visit [facility] [address] [place] [address] Luci Rios LANDSCAPE GARDENER [address] [place] [address] 02/23/2025 3:15 PM EDT Procedure Visit [facility] [address] [place] [address] Abisai Boateng, DPEv [address] [place], [place] [id number] documented as of this encounter Procedures Procedure [...] Foot Right Radiogra phic Imaging Bharath Perez [facility] XR PROCEDURES Final Resul t documented in this encounter Visit Diagnoses Not on filedocumented in this encounter Care Teams Electronics Engineering Technologist Relationship Specialty Start Date End Date Shaikh Baker MD [address] [place] [address] PCP - General Internal Medicine 06/25/23 12/29/23 Antwan Perez MD [address] [place] [address] PCP - General Family Medicine 12/30/23 Shaikh Baker MD [address] [place] [address] PCP - [facility] 02/25/24 Georgina Velasquez NP [address] [place] [address] Nurse Practitioner Family Medicine 12/30/23 documented as of this encounter
--- OUTSIDE RECORDS SUMMARY | 2024-11-30 15:06 | XMS_ITS | Encounter Summary ---
Author Organization [facility] Address [address] [place] [address] Care Team Providers Care Nurse Aide Name Role Phone Antwan Perez MD Primary Care Provider [phone] Georgina Velasquez PRIVATE HOUSEHOLD WORKER Unavailable [phone] Encounter Details Date Type Department Care Team (Late st Contact Info) Description 11/19/2024 Bamboo flowsheet [facility] [address] [place] [address] Luci Rios NP [address] [place] [address] Social History Tobacco Use Types Packs/Day Years [...] Never 01/21/2024 [facility]? More than 4 times per year 01/21/2024 Do you belong to any clubs o r organizations such as adventism groups, unions, fraternal or athletic groups, or [...] Recorded Patient Health Questionnaire-2 Score 0 01/22/2024 [facility] - Occupational Stress Questionnaire Answer Date Recorded [...] any time in the past 12 m [facility], were you homeless or living in a fci (including now)? No 01/21/2024 Sex and Gender Information Value Date Recorded Sex Assigned at Not on file Legal Sex Male 11:39 PM EDT Gender Identity Not on file Sexual Orientation Not on file documented as of this encounter Plan of Treatment Upcoming Encounters Date Type Department Care Team (Late st Contact Info) Description 12/31/2024 3:40 PM EDT Office Visit [facility] [address] [place] [address] Luci Rios NP [address] [place] [address] 02/23/2025 3:15 PM EDT Procedure Visit [facility] [address] [place] [address] Abisai Boateng, DPM [address] [place] [address] documented as of this encounter Visit Diagnoses Not on filedocumented in this encounter Care Teams Nurse Aide Relationship Specialty Start Date End Date Antwan Perez MD [address] [place] [address] PCP - General Family Medicine 12/30/23 Georgina Velasquez NP [address] [place] [address] Nurse Practitioner Family Medicine 12/30/23 documented as of this encounter
--- OUTSIDE RECORDS SUMMARY | 2024-11-30 15:06 | XMS_ITS | Encounter Summary ---
Author Organization [facility] Address [address] [place] [address] Care Team Providers Care Merchandise Marker Name Role Phone Shaikh ALONSO Baker Primary Care Provider Antwan Perez MD Primary Care Provider Georgina Velasquez NP Unavailable [phone] Shaikh ALONSO Baker Unavailable [phone] Encounter Details Date Type Department Care [...] Visit [facility] [address] [place] [address] Luci Rios NP [address] [place] [address] 02/23/2025 3:15 PM EDT Procedure Visit [facility] [address] [place] [address] Abisai Boateng, DPEv [address] [facility] [place] [address] documented as of this encounter Procedures Procedure Name Priority Date/Time Associated Diagnosis Comments XR FOOT RT MIN 3V 07/17/2023 6:5 2 AM EST documented in this encounter Results * XR FOOT RT MIN 3V (07/17/2023 6:52 AM EST) Anatomical Region Laterality Modality Other 07/17/2023 6:52 AM EST Narrative 07/17/2023 6:54 [place] [address] XRay Report Signed Patient: LAVERN ESCOBEDO MR#: [id number] : 1965 Acct:[id number] Age/Sex: 58 / M ADM Date: 07/16/23 Loc: RAD Attending Dr: Rey Perez D.P.M. Ordering Physician: Rey Perez D.P.M. Date of Service: 07/16/23 Procedure(s): XR foot RT min 3V Accession Number(s): [id number] cc: Shaikh Heather Baker; Rey Perez D.P.M. [address] [address] Patient Name: LAVERN GARCIA MRN: [id number] date: 1965 Sex: M Assigned Patient Location: [facility] Current Patient Location: Accession/Order Number: [id number] Exam Date: 07/16/2023 13:10 Report Date: 07/17/2023 [...] Fitzgerald M.D. Signed By: 07/17/2354 DD/ TD/TT: Biological Plant Operator: Procedure Note Radiology, Radiologist, MD - 07/31/2023 [place] [address] XRay Report Signed Patient: LAVERN ESCOBEDOMR#: [id number] : 1965Acct:[id number] Age/Sex: 58 / MADM Date: 07/16/23 Loc: RAD Attending Dr: Rey Perez D.P.M. Ordering Physician: Rey Perez D.P.M. Date of Service: 07/16/23 Procedure(s): XR foot RT min 3V Accession Number(s): [id number] cc: Shaikh Heather Baker; Rey Perez D.P.M. The [place] [id number] Patient Name: LAVERN GARCIA MRN: [id number] date: 1965 Sex: M Assigned Patient Location: [facility] Current Patient Location: Accession/Order Number: [id number] Exam Date: 07/16/2023 13:10 Report Date: 07/17/2023 [...] Robert Fitzgerald M.D. Signed By:07/17/2354 DD/ TD/TT: Biological Plant Operator: us Generic External Data Provider [facility] Final Result documented in this encounter Visit Diagnoses Not on filedocumented in this encounter Care Teams Merchandise Marker Relationship Specialty Start Date End Date Shaikh Baker MD [address] [place] [address] PCP - General Internal Medicine 06/25/23 12/29/23 Antwan Perez MD [address] [place] [address] PCP - General Family Medicine 12/30/23 Shaikh Baker MD [address] [place] [address] PCP - [facility] 02/25/24 Georgina Velasquez NP [address] [place] [address] Nurse Practitioner Family Medicine 12/30/23 documented as of this encounter
--- OUTSIDE RECORDS SUMMARY | 2024-11-30 15:06 | XMS_ITS | Clinical Summary ---
Author Organization The [facility] Address [address] [place] [address] Care Team Providers Care Ice Cream Machine Operator Name Role Phone Unavailable Primary Care Provider Unavailabl e Social History Tobacco Use Types Packs/Day Years Used Date Smoking Tobacco: Never Assessed [place] Safety & Environment Answer Date Rec orded Fear of Current or Ex-Partner Not on file Emotionally Abused Not on file 07/18/2023 Physically Abused Not on file 07/18/2023 Sexually Abused Not on file 07/18/2023 Physically or Sexually Abused Not on file Sex and Gender Information Value Date Recorded Sex Assigned at Not on file Legal Sex Male 12:38 AM EDT Gender Identity Not on file Sexual Orientation Not on file Plan of Treatment Not on file
--- OUTSIDE RECORDS SUMMARY | 2024-11-30 15:06 | XMS_ITS | Encounter Summary ---
Author Organization [facility] Address [address] [place] [address] Care Team Providers Care Oracle Financials Developer Name Role Phone Shaikh ALONSO Baker Primary Care Provider [phone] Antwan Perez MD Primary Care Provider Georgina Velasquez NP Unavailable Shaikh ALONSO Baker Unavailable [phone] Encounter Details Date Type Department Care [...] Visit [facility] [address] [place] [address] Luci Rios NP [address] [place] [address] 02/23/2025 3:15 PM EDT Procedure Visit [facility] [address] [place] [address] Abisai Boateng, DPM [address] [place] [address] documented as of this encounter Procedures Procedure Name Priority Date/Time Associated Diagnosis Comments XR ANKLE RT MIN 3V 07/17/2023 6: 52 AM EST documented in this encounter Results * XR ANKLE RT MIN 3V (07/17/2023 6:52 AM EST) Anatomical Region Laterality Modality Other 07/17/2023 6:52 AM EST Narrative 07/17/2023 6:55 AM EST [address] [address] XRay Report Signed Patient: LAVERN ESCOBEDO MR#: [id number] : 1965 Acct:[id number] Age/Sex: 58 / M ADM Date: 07/16/23 Loc: RAD Attending Dr: Rey Perez D.P.M. Ordering Physician: Rey Perez D.P.M. Date of Service: 07/16/23 Procedure(s): XR ankle RT min 3V Accession Number(s): [id number] cc: Shaikh Heather Baker; Rey Perez D.P.M. [address] [address] Patient Name: LAVERN GARCIA MRN: [id number] date: 1965 Sex: M Assigned Patient Location: RAD Current Patient Location: Accession/Order Number: [id number] Exam Date: 07/16/2023 13:10 Report Date: 07/17/2023 [...] M.D. Signed By: 07/17/2355 DD/ 1 TD/TT: Quality Improvement Specialist: Procedure Note Radiology, Radiologist, MD - 07/31/2023 [place] [address] XRay Report Signed Patient: LAVERN ESCOBEDOMR#: [id number] : 1965Acct:[id number] Age/Sex: 58 / MADM Date: 07/16/23 Loc: RAD Attending Dr: Rey Perez D.P.M. Ordering Physician: Rey Perez D.P.M. Date of Service: 07/16/23 Procedure(s): XR ankle RT min 3V Accession Number(s): [id number] cc: Shaikh Heather Baker; Rey Perez D.P.M. The [place] [id number] Patient Name: LAVERN GARCIA MRN: [id number] date: 1965 Sex: M Assigned Patient Location: [facility] Current Patient Location: Accession/Order Number: [id number] Exam Date: 07/16/2023 13:10 Report Date: 07/17/2023 [...] Robert Fitzgerald M.D. Signed By:07/17/2355 DD/ TD/TT: Quality Improvement Specialist: us Generic External Data Provider [facility] Final Result documented in this encounter Visit Diagnoses Not on filedocumented in this encounter Care Teams Oracle Financials Developer Relationship Specialty Start Date End Date Shaikh Baker MD [address] [place] [address] PCP - General Internal Medicine 06/25/23 12/29/23 Antwan Perez MD [address] [place] [address] PCP - General Family Medicine 12/30/23 Shaikh Baker MD [address] [place] [address] PCP - [facility] 02/25/24 Georgina Velasquez NP [address] [place] [address] Nurse Practitioner Family Medicine 12/30/23 documented as of this encounter
--- OUTSIDE RECORDS SUMMARY | 2024-11-30 15:06 | XMS_ITS | Encounter Summary ---
Author Organization [facility] Address [address] [place] [address] Care Team Providers Care Geomagnetician Name Role Phone Antwan ePrez MD Primary Care Provider [phone] Georgina Velasquez WIRELESS MANAGER Unavailable [phone] Encounter Details Date Type Department Care Team (Late st Contact Info) Description 11/23/2024 Abstract [facility] [address] [place] [address] Luci Rios NP [address] [place] [address] Social History Tobacco Use Types Packs/Day Years [...] [facility] you attend [facility] or mormonism services? More than 4 times per year 01/21/2024 Do you belong to any clubs o r organizations such as cheondoism groups, unions, fraternal or athletic groups, or [...] Recorded Patient Health Questionnaire-2 Score 0 01/22/2024 [facility] - Occupational Stress Questionnaire Answer [...] any time in the past 12 m [facility], were you homeless or living in a usp (including now)? No 01/21/2024 Sex and Gender Information Value Date Recorded Sex Assigned at Not on file Legal Sex Male 11:39 PM EDT Gender Identity Not on file Sexual Orientation Not on file documented as of this encounter Plan of Treatment Upcoming Encounters Date Type Department Care Team (Late st Contact Info) Description 12/31/2024 3:40 PM EDT Office Visit [facility] [address] [place] [address] Luci Rios NP [address] [place] [address] 02/23/2025 3:15 PM EDT Procedure Visit [facility] [address] [place] [address] Abisai Boateng, DPM [address] [place] [address] documented as of this encounter Visit Diagnoses Not on filedocumented in this encounter Care Teams Geomagnetician Relationship Specialty Start Date End Date Antwan Perez MD [address] [place] [address] PCP - General Family Medicine 12/30/23 Georgina Velasquez NP [address] [place] [address] Nurse Practitioner Family Medicine 12/30/23 documented as of this encounter
--- OUTSIDE RECORDS SUMMARY | 2024-11-30 15:06 | XMS_ITS | Encounter Summary ---
Author Organization [facility] Address [address] [place] [address] Care Team Providers Care Derrick Boat Operator Name Role Phone Shaikh ALONSO Baker Primary Care Provider [phone] Antwan Perez MD Primary Care Provider Georgina Velasquez NP Unavailable Shaikh ALONSO Bakre Unavailable [phone] Encounter Details Date Type Department Care Team (Late st Contact Info) Description 07/11/2023 Orders Only [facility] [address] [place] [address] Bharath Perez Social History Tobacco [...] 12/31/2024 3:40 PM EDT Office Visit [facility] [address] [place] [address] Luci Rios LAUNDRY ASSISTANT [address] [place] [address] 02/23/2025 3:15 PM EDT Procedure Visit [facility] [address] [place] [address] Abisai Boateng, DPM [address] [place], [place] [address] documented as of this encounter Procedures Procedure [...] filedocumented in this encounter Care Teams Derrick Boat Operator Relationship Specialty Start Date End Date Shaikh Baker MD [address] [place] [address] PCP - General Internal Medicine 06/25/23 12/29/23 Antwan Perez MD [address] [place] [address] PCP - General Family Medicine 12/30/23 Shaikh Baker MD [address] [place] [address] PCP - [facility] 02/25/24 Georgina Velasquez NP [address] [place] [address] Nurse Practitioner Family Medicine 12/30/23 documented as of this encounter
--- OUTSIDE RECORDS SUMMARY | 2024-11-30 15:06 | XMS_ITS | Encounter Summary ---
Author Organization [facility] Address [address] [place] [address] Care Team Providers Care Publication Distributor Name Role Phone Antwan Perez MD Primary Care Provider Georgina Velasquez PROJECT PLANNER Unavailable [phone] Encounter Details Date Type Department Care Team (Late st Contact Info) Description 11/24/2024 Refill [facility] [address] [place] [address] Luci Rios NP [address] [place] [address] Type 2 diabetes mellitus without complication, with long-term current use of insulin (HCC) (Primary Dx) Social History Tobacco Use Types Packs/Day Years [...] often do you attend chur ch or yarsanism services? More than 4 times per year 01/21/2024 Do you belong to any clubs o r organizations such as islam groups, unions, fraternal or athletic groups, or [...] Recorded Patient Health Questionnaire-2 Score 0 01/22/2024 [facility] of Occupat ional [facility] - Occupational Stress Questionnaire Answer Date Recorded [...] any time in the past 12 m [facility], were you homeless or living in a skilled nursing (including now)? No 01/21/2024 Sex and Gender Information Value Date Recorded Sex Assigned at Not on file Legal Sex Male 11:39 PM EDT Gender Identity Not on file Sexual Orientation Not on file documented as of this encounter Plan of Treatment Upcoming Encounters Date Type Department Care Team (Late st Contact Info) Description 12/31/2024 3:40 PM EDT Office Visit [facility] [address] [place] [address] Luci Rios NP [address] [place] [address] 02/23/2025 3:15 PM EDT Procedure Visit [facility] [address] [place] [address] Abisai Boateng, DPM [address] [place] [address] documented as of this encounter Visit Diagnoses Diagnosis Type 2 diabetes mellitus without complication, with long-term current use of insulin (HCC)- Primary documented in this encounter Care Teams Publication Distributor Relationship Specialty Start Date End Date Antwan Perez MD [address] [place] [address] PCP - General Family Medicine 12/30/23 Georgina Velasquez NP [address] [place] [address] Nurse Practitioner Family Medicine 12/30/23 documented as of this encounter
--- OUTSIDE RECORDS SUMMARY | 2024-11-30 15:06 | XMS_ITS | Encounter Summary ---
Author Organization [facility] Address [address] [place] [address] Care Team Providers Care Customer Records Division Supervisor Name Role Phone Shaikh ALONSO Baker Primary Care Provider [phone] Shaikh ALONSO Baker Primary Care Provider Antwan Perez MD Primary Care Provider Georgina Velasquez NP Unavailable Shaikh ALONSO Baker Unavailable [phone] Encounter Details Date Type Department Care Team (Late st Contact Info) Description 06/10/[address] [facility] [address] [place] [address] Bharath Perez MD [address] [place] [address] [place] [address] Social History Tobacco Use Types [...] 12/31/2024 3:40 PM EDT [facility] [address] [place] [address] Luci Rios NP [address] [place] [address] 02/23/2025 3:15 PM EDT Procedure Visit [facility] [address] [place] [address] Abisai Boateng, DPM [address] [place], [place] [address] documented as of this encounter Procedures Procedure [...] on filedocumented in this encounter Care Teams Customer Records Division Supervisor Relationship Specialty Start Date End Date Shaikh Baker MD PCP - General Internal Medicine 12/05/22 06/24/23 Shaikh Baker MD [address] [place] [address] PCP - General Internal Medicine 06/25/23 12/29/23 Antwan Perez MD [address] [place] [address] PCP - General Family Medicine 12/30/23 Shaikh Baker MD [address] [place] [address] PCP - [facility] 02/25/24 Georgina Velasquez NP [address] [place] [address] Nurse Practitioner Family Medicine 12/30/23 documented as of this encounter
--- OUTSIDE RECORDS SUMMARY | 2024-11-30 15:06 | XMS_ITS | Encounter Summary ---
Author Organization [facility] Address [address] [place] [address] Care Team Providers Care Vehicle Calibration Engineer Name Role Phone Antwan Perez MD Primary Care Provider [phone] Georgina Velasquez ASSEMBLING FABRICATOR Unavailable [phone] Encounter Details Date Type Department Care Team (Late st Contact Info) Description 11/23/2024 Abstract [facility] [address] [place] [address] Luci Rios NP [address] [place] [address] Social History Tobacco Use Types Packs/Day Years [...] Never 01/21/2024 How often do you attend [facility] or mosque services? More than 4 times per year 01/21/2024 Do you belong to any clubs o r organizations such as adventist groups, unions, fraternal or athletic groups, or [...] Recorded Patient Health Questionnaire-2 Score 0 01/22/2024 [facility] - Occupational Stress Questionnaire Answer Date [...] any time in the past 12 m [facility], were you homeless or living in a correction (including now)? No 01/21/2024 Sex and Gender [...] Office Visit [facility] [address] [place] [address] Luci Rios NP [address] [place] [address] 02/23/2025 3:15 PM EDT Procedure Visit [facility] [address] [address] Abisai Boateng, DPM [address] [place] [address] documented as of this encounter Visit Diagnoses Not on filedocumented in this encounter Care Teams Vehicle Calibration Engineer Relationship Specialty Start Date End Date Antwan Perze MD [address] [place] [address] PCP - General Family Medicine 12/30/23 Georgina Velasquez NP [address] [place] [address] Nurse Practitioner Family Medicine 12/30/23 documented as of this encounter
--- OUTSIDE RECORDS SUMMARY | 2024-11-30 15:06 | XMS_ITS | Encounter Summary ---
Author Organization [facility] Address [address] [place] [address] Care Team Providers Care Client Application Support Engineer Name Role Phone Shaikh ALONSO Baker Primary Care Provider [phone] Antwan Perez MD Primary Care Provider Georgina Velasquez NP Unavailable Shaikh ALONSO Baker Unavailable [phone] Encounter Details Date Type Department Care [...] Visit [facility] [address] [place] [address] Luci Rios NP [address] [place] [address] 02/23/2025 3:15 PM EDT Procedure Visit [facility] [address] [place] [address] Abisai Boateng, DPM [address] [place] [address] documented as of this encounter Procedures Procedure Name Priority Date/Time Associated Diagnosis Comments XR ANKLE RT MIN 3V 06/26/2023 4: 31 PM EST documented in this encounter Results * XR ANKLE RT MIN 3V (06/26/2023 4:31 PM EST) Anatomical Region Laterality Modality Other 06/26/2023 4:31 PM EST Narrative 06/26/2023 4:33 [place] [address] XRay Report Signed Patient: LAVERN ESCOBEDO MR#: [id number] : 1965 Acct:[id number] Age/Sex: 58 / M ADM Date: 06/26/23 Loc: RAD Attending Dr: Rey Perez D.P.M. Ordering Physician: Rey Perez D.P.M. Date of Service: 06/26/23 Procedure(s): XR ankle RT min 3V Accession Number(s): [id number] cc: Shaikh Heather Baker; Rey Perez D.P.M. [address] [address] Patient Name: LAVERN GARCIA MRN: [id number] date: 1965 Sex: M Assigned Patient Location: [facility] Current Patient Location: [facility] Accession/Order Number: [id number] Exam Date: 06/26/2023 13:56 Report Date: 06/26/2023 [...] Signed By: 06/26/23 163 DD/ 163 TD/TT: Intermediate Accountant: Procedure Note Radiology, Radiologist, MD - 07/31/2023 [place] [address] XRay Report Signed Patient: LAVERN ESCOBEDOMR#: [id number] : 1965Acct:[id number] Age/Sex: 58 / MADM Date: 06/26/23 Loc: RAD Attending Dr: Rey Perez D.P.M. Ordering Physician: Rey Peerz D.P.M. Date of Service: 06/26/23 Procedure(s): XR ankle RT min 3V Accession Number(s): [id number] cc: Shaikh Heather Baker; Rey Perez D.P.M. The [place] [address] Patient Name: LAVERN GARCIA MRN: [id number] date: 1965 Sex: M Assigned Patient Location: [facility] Current Patient Location: [facility] Accession/Order Number: [id number] Exam Date: 06/26/2023 13:56 Report Date: 06/26/2023 [...] M.D. Signed By:06/26/23 1633 DD/ 1631 TD/TT: Intermediate Accountant: us Generic External Data Provider [facility] Final Result documented in this encounter Visit Diagnoses Not on filedocumented in this encounter Care Teams Client Application Support Engineer Relationship Specialty Start Date End Date Shaikh Baker MD [address] [place] [address] PCP - General Internal Medicine 06/25/23 12/29/23 Antwan Perez MD [address] [place] [address] PCP - General Family Medicine 12/30/23 Shaikh Baker MD [address] [place] [address] PCP - [facility] 02/25/24 Georgina Velasquez NP [address] [place] [address] Nurse Practitioner Family Medicine 12/30/23 documented as of this encounter
--- OUTSIDE RECORDS SUMMARY | 2024-11-30 15:06 | XMS_ITS | Encounter Summary ---
Author Organization [facility] Address [address] [place] [address] Care Team Providers Care Lead Software Engineer Name Role Phone Antwan Perez MD Primary Care Provider [phone] Georgina Velasquez NP Unavailable [phone] Shaikh ALONSO Baker Unavailable [phone] Encounter Details Date Type Department Care [...] often do you attend chur ch or pentecostal services? More than 4 times per year [...] Recorded Patient Health Questionnaire-2 Score 0 01/22/2024 [facility] - Occupational Stress Questionnaire Answer Date [...] any time in the past 12 m [facility], were you homeless or living in [...] [facility] [address] [place] [address] Luci Rios, MARIA FERNANDA [address] [place] [address] 02/23/2025 3:15 PM EDT Procedure Visit [facility] [address] [place] [address] Abisai Boateng, DPM [address] [place] [address] documented as of this encounter Procedures Procedure Name Priority Date/Time Associated Diagnosis Comments XR ANKLE RT MIN 3V 04/17/2024 3: 14 PM EST documented in this encounter Results * XR ANKLE RT MIN 3V (04/17/2024 3:14 PM EST) Anatomical Region Laterality Modality Other 04/17/2024 3:14 PM EST Narrative 04/17/2024 3:17 PM EST The [address] [address] XRay Report Signed Patient: LAVERN ESCOBEDO MR#: [id number] : 1965 Acct:[id number] Age/Sex: 59 / M ADM Date: 04/15/24 Loc: RAD Attending Dr: Rey Perez D.P.M. Ordering Physician: Rey Perez D.P.M. Date of Service: 04/15/24 Procedure(s): XR ankle RT min 3V Accession Number(s): [id number] cc: Shaikh Heather Baker; Rey Perez D.P.M. The [place] [address] Patient Name: LAVERN GARCIA MRN: [id number] date: 1965 Sex: M Assigned Patient Location: RAD Current Patient Location: RAD Accession/Order Number: [id number] Exam Date: 04/15/2024 15:10 Report Date: 04/17/2024 [...] Signed By: 04/17/24 1517 DD/ 13 TD/TT: Fast Food Crew Lead: Procedure Note Radiology, Radiologist, MD - 04/17/2024 [place] [address] XRay Report Signed Patient: LAVERN ESCOBEDOMR#: [id number] : 1965Acct:[id number] Age/Sex: 59 / MADM Date: 04/15/24 Loc: RAD Attending Dr: Rey Perez D.P.M. Ordering Physician: Rey Perez D.P.M. Date of Service: 04/15/24 Procedure(s): XR ankle RT min 3V Accession Number(s): [id number] cc: Shaikh Heather Baker; Rey Perez D.P.M. [place] [id number] Patient Name: LAVERN GARCIA MRN: [id number] date: 1965 Sex: M Assigned Patient Location: RAD Current Patient Location: RAD Accession/Order Number: [id number] Exam Date: 04/15/2024 15:10 Report Date: 04/17/2024 [...] Fitzgerald M.D. Signed By:04/17/24 1517 DD/ TD/TT: Fast Food Crew Lead: Generic External Data Provider [facility] Final Result documented in this encounter Visit Diagnoses Not on filedocumented in this encounter Care Teams Lead Software Engineer Relationship Specialty Start Date End Date Antwan Perez MD [address] [place] [address] PCP - General Family Medicine 12/30/23 Shaikh Baker MD [address] [place] [address] [facility] 02/25/24 Georgina Velasquez NP [address] [place] [address] Nurse Practitioner Family Medicine 12/30/23 documented as of this encounter
--- OUTSIDE RECORDS SUMMARY | 2024-11-30 15:06 | XMS_ITS | Encounter Summary ---
Author Organization [facility] Address [address] [place] [address] Care Team Providers Care Tv News Director Name Role Phone Shaikh ALONSO Baker Primary Care Provider Antwan Perez MD Primary Care Provider Georgina Velasquez NP Unavailable Shaikh ALONSO Baker Unavailable [phone] Encounter Details Date Type Department Care [...] Visit [facility] [address] [place] [address] Luci Rios NP [address] [place] [address] 02/23/2025 3:15 PM EDT Procedure Visit [facility] [address] [place] [address] Abisai Boateng, DPEv [address] [place] [address] documented as of this encounter Procedures Procedure Name Priority Date/Time Associated Diagnosis Comments CT ANKLE RT WO CON 06/25/2023 4: 07 PM EST documented in this encounter Results * CT ANKLE RT WO CON (06/25/2023 4:07 PM EST) Anatomical Region Laterality Modality Other 06/25/2023 4:07 PM EST Narrative 06/25/2023 4:10 [place] [address] CT Scan Report Signed Patient: LAVERN ESCOBEDO MR#: [id number] : 1965 Acct:[id number] Age/Sex: 58 / M ADM Date: 06/25/23 Loc: CT Attending Dr: Rey Perez D.P.M. Ordering Physician: Rey Perez D.P.M. Date of Service: 06/25/23 Procedure(s): CT ankle RT wo con Accession Number(s): [id number] cc: Shaikh Heather Baker [address] [address] Patient Name: LAVERN GARCIA MRN: [id number] date: 1965 Sex: M Assigned Patient Location: CT Current Patient Location: CT Accession/Order Number: [id number] Exam Date: 06/25/2023 15:11 Report Date: 06/25/2023 [...] severe degenerative osteoarthropathy of the knee with mfga-hi-llyo articulation and remodeling of the lateral compartment SOFT TISSUES: Negative. No visible soft tissue swelling. EFFUSION: None visible. OTHER: Negative. CT/CT ankle RT wo con IMPRESSION: Stable ankle fusion Diffuse osteopenia Moderate to severe degenerative osteoarthritis of the knee Electronically authenticated by: GERA BLUM Date: 06/25/2023 16:07 Dictated By: Gera Blum M.D. Signed By: 06/25/23 1610 DD/ 1607 TD/TT: Strainer Cleaner: Procedure Note Radiology, Radiologist, MD - 06/25/2023 [place] [address] CT Scan Report Signed Patient: LAVERN ESCOBEDOMR#: [id number] : 1965Acct:[id number] Age/Sex: 58 / MADM Date: 06/25/23 Loc: CT Attending Dr: Rey Perez D.P.M. Ordering Physician: Rey Perez D.P.M. Date of Service: 06/25/23 Procedure(s): CT ankle RT wo con Accession Number(s): [id number] cc: Shaikh Heather Baker The [place] [address] Patient Name: LAVERN GARCIA MRN: [id number] date: 1965 Sex: M Assigned Patient Location: CT Current Patient Location: CT Accession/Order Number: [id number] Exam Date: 06/25/2023 15:11 Report Date: 06/25/2023 [...] severe degenerative osteoarthropathy of the knee with qfqc-gr-rfan articulationand remodeling of the lateral compartment SOFT TISSUES: Negative. No visible soft tissue swelling. EFFUSION: None visible. OTHER: Negative. CT/CT ankle RT wo con IMPRESSION: Stable ankle fusion Diffuse osteopenia Moderate to severe degenerative osteoarthritis of the knee Electronically authenticated by: GERA BLUM Date: 06/25/2023 16:07 Dictated By: Gera Blum M.D. Signed By:06/25/23 1610 DD/ 1607 TD/TT: Strainer Cleaner: us Generic External Data Provider [facility] Final Result documented in this encounter Visit Diagnoses Not on filedocumented in this encounter Care Teams Tv News Director Relationship Specialty Start Date End Date Shaikh Baker MD [address] [place] [address] PCP - General Internal Medicine 06/25/23 12/29/23 Antwan Perez MD [address] [place] [address] PCP - General Family Medicine 12/30/23 Shaikh Baker MD [address] [place] [address] PCP - [facility] 02/25/24 Georgina Velasquez NP [address] [place] [address] Nurse Practitioner Family Medicine 12/30/23 documented as of this encounter
--- OUTSIDE RECORDS SUMMARY | 2024-11-30 15:06 | XMS_ITS | Encounter Summary ---
Author Organization [facility] Address [address] [place] [address] Care Team Providers Care Ferryboat Deckhand Name Role Phone Shaikh ALONSO Baker Primary Care Provider [phone] Antwan Perez MD Primary Care Provider [phone] Georgina Velasquez NP Unavailable [phone] Shaikh ALONSO Baker Unavailable [phone] Encounter Details Date Type Department Care [...] 12/31/2024 3:40 PM EDT Office Visit [facility] [address] [place] [address] Luci Rios, MARIA FERNANDA [address] [place] [address] 02/23/2025 3:15 PM EDT Procedure Visit [facility] [address] [place] [address] Abisai Boateng, DPM [address] [place] [address] documented as of this encounter Procedures Procedure Name Priority Date/Time Associated Diagnosis Comments CT ANKLE RT WO CON 08/19/2023 7: 23 AM EDT documented in this encounter Results * CT ANKLE RT WO CON (08/19/2023 7:23 AM EDT) Anatomical Region Laterality Modality Other 08/19/2023 7:23 AM EDT Narrative 08/19/2023 7:25 [place] [address] CT Scan Report Signed Patient: LAVERN ESCOBEDO MR#: [id number] : 1965 Acct:[id number] Age/Sex: 58 / M ADM Date: 08/16/23 Loc: CT Attending Dr: Rey Perez D.P.M. Ordering Physician: Rey Perez D.P.M. Date of Service: 08/16/23 Procedure(s): CT ankle RT wo con Accession Number(s): [id number] cc: Shaikh Heather Baker [address] [address] Patient Name: LAVERN GARCIA MRN: [id number] date: 1965 Sex: M Assigned Patient Location: CT Current Patient Location: Accession/Order Number: [id number] Exam Date: 08/16/2023 15:26 Report Date: 08/19/2023 [...] M.D. Signed By: 08/19/23724 DD/ 2 TD/TT: Baseball Club Manager: Procedure Note Radiology, Radiologist, MD - 08/19/2023 [place] [address] CT Scan Report Signed Patient: LAVERN ESCOBEDOMR#: [id number] : 1965Acct:[id number] Age/Sex: 58 / MADM Date: 08/16/23 Loc: CT Attending Dr: Rey Perez D.P.M. Ordering Physician: Rey Perez D.P.M. Date of Service: 08/16/23 Procedure(s): CT ankle RT wo con Accession Number(s): [id number] cc: Shaikh Heather Baker The [place] [address] Patient Name: LAVERN GARCIA MRN: [id number] date: 1965 Sex: M Assigned Patient Location: CT Current Patient Location: Accession/Order Number: [id number] Exam Date: 08/16/2023 15:26 Report Date: 08/19/2023 [...] Blum M.D. Signed By:08/19/23724 DD/ 2 TD/TT: Baseball Club Manager: Generic External Data Provider [facility] Final Result documented in this encounter Visit Diagnoses Not on filedocumented in this encounter Care Teams Ferryboat Deckhand Relationship Specialty Start Date End Date Shaikh Baker MD [address] [place] [address] PCP - General Internal Medicine 06/25/23 12/29/23 Antwan Perez MD [address] [place] [address] PCP - General Family Medicine 12/30/23 Shaikh Baker MD [address] [place] [address] PCP - [facility] 02/25/24 Georgina Velasquez NP [address] [place] [address] Nurse Practitioner Family Medicine 12/30/23 documented as of this encounter
--- OUTSIDE RECORDS SUMMARY | 2024-11-30 15:06 | XMS_ITS | Encounter Summary ---
Author Organization [facility] Address [address] [place] [address] Care Team Providers Care Heel Seat Trimmer Name Role Phone Shaikh ALONSO Baker Primary Care Provider Shaikh ALONSO Baker Primary Care Provider [phone] Antwan Perez MD Primary Care Provider Georgina Velasquez NP Unavailable [phone] Shaikh ALONSO Baker Unavailable [phone] Encounter Details Date Type Department Care [...] 12/31/2024 3:40 PM EDT Office Visit [facility] [address] [place] [address] Luci Rios NP [address] [place] [address] 02/23/2025 3:15 PM EDT Procedure Visit [facility] [place] [address] Abisai Boateng, DPM [address] [facility] [place] [address] documented as of this encounter Procedures Procedure Name Priority Date/Time Associated Diagnosis Comments XR ANKLE RT MIN 3V 06/06/2023 7: 20 AM EST documented in this encounter Results * XR ANKLE RT MIN 3V (06/06/2023 7:20 AM EST) Anatomical Region Laterality Modality Other 06/06/2023 7:20 AM EST Narrative 06/06/2023 7:22 AM EST [address] [address] XRay Report Signed Patient: LAVERN ESCOBEDO MR#: [id number] : 1965 Acct:[id number] Age/Sex: 58 / M ADM Date: 06/05/23 Loc: RAD Attending Dr: Rey Perez D.P.M. Ordering Physician: Rey Perez D.P.M. Date of Service: 06/05/23 Procedure(s): XR ankle RT min 3V Accession Number(s): [id number] cc: Shaikh Heather Baker; Rey Perez D.P.M. [address] [address] Patient Name: LAVERN GARCIA MRN: [id number] date: 1965 Sex: M Assigned Patient Location: [facility] Current Patient Location: Accession/Order Number: [id number] Exam Date: 06/05/2023 15:01 Report Date: 06/06/2023 [...] M.D. Signed By: 06/06/23721 DD/ 9 TD/TT: Power Lineman Technician: Procedure Note Radiology, Radiologist, MD - 07/31/2023 [place] [address] XRay Report Signed Patient: LAVERN ESCOBEDOMR#: [id number] : 1965Acct:[id number] Age/Sex: 58 / MADM Date: 06/05/23 Loc: RAD Attending Dr: Rey Perez D.P.M. Ordering Physician: Rey Perez D.P.M. Date of Service: 06/05/23 Procedure(s): XR ankle RT min 3V Accession Number(s): [id number] cc: Shaikh Heather Baker; Rye Perez D.P.M. The [place] [id number] Patient Name: LAVERN GARCIA MRN: [id number] date: 1965 Sex: M Assigned Patient Location: [facility] Current Patient Location: Accession/Order Number: [id number] Exam Date: 06/05/2023 15:01 Report Date: 06/06/2023 [...] Blum M.D. Signed By:06/06/23721 DD/ 9 TD/TT: Power Lineman Technician: us Generic External Data Provider [facility] Final Result documented in this encounter Visit Diagnoses Not on filedocumented in this encounter Care Teams Heel Seat Trimmer Relationship Specialty Start Date End Date Shaikh Baker MD PCP - General Internal Medicine 12/05/22 06/24/23 Shaikh Baker MD [address] [place] [address] PCP - General Internal Medicine 06/25/23 12/29/23 Antwan Perez MD [address] [place] [address] PCP - General Family Medicine 12/30/23 Shaikh Baker MD [address] [place] [address] PCP - [facility] [employer] [employer] 02/25/24 Georgina Velasquez NP [address] [place] [address] Nurse Practitioner Family Medicine 12/30/23 documented as of this encounter
--- OUTSIDE RECORDS SUMMARY | 2024-11-30 15:06 | XMS_ITS | Clinical Summary ---
Author Organization [facility] Healthcare Address [address] [place] [address] Care Team Providers Care Quality Control Operator Name Role Phone Antwan Perez MD Primary Care Provider [phone] Georgina Velasquez CO [employer] Unavailable [phone] Allergies No known active allergies Medications aspirin 81 MG chewable tabletIndications: Hyperlipidemia, unspecified hyperlipidemia type Chew 1 tablet (81 mg) in the morning. 30 tablet 2 01/22/20 24 Active Continuous Glucose Motor Operator ([employer] S.AStyle Era 2 [place]) deviceIndications: Type 2 diabetes mellitus without complication, with long-term current use of insulin (HCC) 1 each in the morning and 1 each at noon and 1 each in the evening and 1 each before bedtime. 1 each 03/19/20 24 025 Active albuterol HFA 90 mcg/act inhalerIndications :Severe persistent asthma without complication (HCC) Inhale 2 puffs every 4 (four) hours if needed for shortness of breath 18 g 07/30/19 25 Active amLODIPine (Norvasc) 10 MG tabletIndications: Primary hypertension Take 1 tablet (10 mg) by mouth Daily 90 tablet 1 11/20/19 25 025 Active atorvastatin (Lipitor) 40 MG tabletIndications: Hyperlipidemia, unspecified hyperlipidemia type Take 1 tablet (40 mg) by mouth Daily 90 tablet 1 11/20/19 25 025 Active carvedilol (Coreg) 25 MG tabletIndications: Resistant hypertension Take 1 tablet (25 mg) by mouth in the morning and 1 tablet (25 mg) in the evening. Take with meals. 180 tablet 1 11/20/19 025 Active Continuous Glucose Sensor (FreeStyle Era 3 Plus Sensor) miscIndications:Ty pe 2 diabetes mellitus without complications (HCC) 1 each by Other route continuously USE 1 SENSOR EVERY 15 DAYS TO MONITOR BLOOD SUGAR. 2 each 11/20/19 025 Active dapagliflozin (Farxiga) 5 MGIndications:Type 2 diabetes mellitus without complications (HCC) Take 1 tablet (5 mg) by mouth Daily 90 tablet 1 11/20/19 25 025 Active Fluticasone-Umecli din-Vilant (Trelegy Ellipta) 200-62.5-25 MCG/ACT aerosol powderIndications: Severe persistent asthma without complication (HCC) Inhale 1 puff Daily INHALE 1 PUFF ONCE DAILY, rinse mouth after use 1 each 11/20/19 025 Active glipiZIDE (Glucotrol) 5 MG tabletIndications: Type 2 diabetes mellitus with diabetic polyneuropathy, with long-term current use of insulin (HCC) Take 1 tablet (5 mg) by mouth in the morning and 1 tablet (5 mg) in the evening. Take before meals. 180 tablet 11/20/19 025 Active insulin pen needle (B-D ULTRAFINE III SHORT PEN) 31G X 8 mm miscIndications:Ty pe 2 diabetes mellitus with diabetic polyneuropathy, with long-term current use of insulin (HCC) Daily 100 each 3 11/20/19 026 Active losartan-hydroCHLO ROthiazide (Hyzaar) 100-25 MG tabletIndications: Primary hypertension Take 1 tablet by mouth Daily 90 tablet 1 11/20/19 025 Active metFORMIN (Glucophage) 850 MG tabletIndications: Hyperlipidemia, unspecified hyperlipidemia type Take 1 tablet (850 mg) by mouth in the morning and 1 tablet (850 mg) in the evening. Take with meals. 180 tablet 1 11/20/19 25 025 Active omeprazole (PriLOSEC) [address] capsuleIndications :Gastroesophageal reflux disease without esophagitis Take 1 capsule (40 mg) by mouth in the morning. Take before meals. 90 capsule 1 11/20/19 25 025 Active spironolactone (Aldactone) 50 MG tabletIndications: Resistant hypertension Take 1 tablet (50 mg) by mouth Daily 90 tablet 1 11/20/19 25 025 Active insulin glargine (Lantus SoloStar) 100 UNIT/ML penIndications:Typ e 2 diabetes mellitus without complication, with long-term current use of insulin (HCC) Inject 20 Units under the skin at bedtime 18 mL 2 11/25/19 025 Active insulin glargine-yfgn (Semglee, yfgn,) 100 UNIT/ML injectionIndicatio ns:Type 2 diabetes mellitus with diabetic polyneuropathy, with long-term current use of insulin (HCC) Inject 20 Units under the skin at bedtime 04/27/20 24 025 Discontin ued(Reord er) insulin pen needle (B-D ULTRAFINE III SHORT PEN) 31G X 8 mm miscIndications:Ty pe 2 diabetes mellitus with diabetic polyneuropathy, with long-term current use of insulin (HCC) Daily 100 each 12 04/27/20 24 025 Discontin ued(Reord er) Continuous Glucose Sensor (FreeStyle Era 3 Plus Sensor) [facility] USE 1 SENSOR EVERY 15 DAYS TO MONITOR BLOOD SUGAR. 07/23/19 025 Discontin ued(Reord er) dapagliflozin (Farxiga) 5 MGIndications:Type 2 diabetes mellitus without complications (HCC) Take 1 tablet (5 mg) by mouth Daily 90 tablet 07/30/19 25 025 Discontin ued(Reord er) atorvastatin (Lipitor) 40 MG tabletIndications: Hyperlipidemia, unspecified hyperlipidemia type Take 1 tablet (40 mg) by mouth Daily 90 tablet 1 08/19/19 25 025 Discontin ued(Reord er) carvedilol (Coreg) 25 MG tabletIndications: Resistant hypertension Take 1 tablet (25 mg) by mouth in the morning and 1 tablet (25 mg) in the evening. Take with meals. 180 tablet 1 08/19/19 25 025 Discontin ued(Reord er) amLODIPine (Norvasc) 10 MG tabletIndications: Primary hypertension Take 1 tablet (10 mg) by mouth Daily 90 tablet 1 08/19/19 025 Discontin ued(Reord er) glipiZIDE (Glucotrol) 5 MG tabletIndications: Type 2 diabetes mellitus with diabetic polyneuropathy, with long-term current use of insulin (HCC) Take 1 tablet (5 mg) by mouth in the morning and 1 tablet (5 mg) in the evening. Take before meals. 180 tablet 1 08/19/19 025 Discontin ued(Reord er) losartan-hydroCHLO ROthiazide (Hyzaar) 100-25 MG tabletIndications: Primary hypertension Take 1 tablet by mouth Daily 90 tablet 1 08/19/19 025 Discontin ued(Reord er) metFORMIN (Glucophage) 850 MG tabletIndications: Hyperlipidemia, unspecified hyperlipidemia type Take 1 tablet (850 mg) by mouth in the morning and 1 tablet (850 mg) in the evening. Take with meals. 180 tablet 1 08/19/19 025 Discontin ued(Reord er) omeprazole (PriLOSEC) [address] capsuleIndications :Gastroesophageal reflux disease without esophagitis Take 1 capsule (40 mg) by mouth in the morning. Take before meals. 90 capsule 1 08/19/19 025 Discontin ued(Reord er) spironolactone (Aldactone) 50 MG tabletIndications: Resistant hypertension Take 2 tablets (100 mg) by mouth Daily 180 tablet 08/20/19 025 Discontin ued(Reord er) Fluticasone-Umecli din-Vilant (Trelegy Ellipta) 200-62.5-25 MCG/ACT aerosol powderIndications: Severe persistent asthma without complication (HCC) Inhale 1 puff Daily INHALE 1 PUFF ONCE DAILY, rinse mouth after use 1 each 5 10/09/19 025 Discontin ued(Reord er) spironolactone (Aldactone) 50 MG tabletIndications: Resistant hypertension Take 1 tablet (50 mg) by mouth Daily 90 tablet 1 11/20/19 025 Discontin ued(Reord er) insulin glargine-yfgn (Semglee, yfgn,) 100 UNIT/ML injectionIndicatio ns:Type 2 diabetes mellitus with diabetic polyneuropathy, with long-term current use of insulin (HCC) Inject 20 Units under the skin at bedtime Inject 20 Units under the skin at bedtime 10 mL 1 11/20/19 25 025 Discontin ued(Cost of medicatio n) Active Problems Problem Noted Date Diagnosed Date Elevated serum creatinine 08/19/2024 Assessment & Plan (10/08/2024 4:18 PM EDT): Recheck labs, still has not heard anything about renal US at [facility] We will refax Edema of both lower extremities 08/18/2024 Assessment & Plan (10/08/2024 7:08 AM EDT): Current meds: aldactone, hydrochlorothiazide in losartan Assessment & Plan (08/18/2024 4:18 PM EDT): improved Type 2 diabetes mellitus without complications 0 07/29/2024 Assessment & Plan (11/19/2024 3:58 PM EDT): Check blood sugars daily, notify [...] insulin, farxiga A1c 7.0% 11/19/24, 8.3% 07/18/24 Assessment & Plan (10/08/2024 4:18 PM EDT): [...] no contraindications for that A1c 8.3% 07/18/24 prison (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 07/29/2024 Assessment & Plan (07/29/2024 7:44 AM EST): Continue with insulin Morbid (severe) obesity due to excess calories 0 07/29/2024 Assessment & Plan (11/19/2024 7:30 AM EDT): Discussed with patient their BMI (actual, verses recommended). We have also discussed lifestyle modifications: attempts to perform physical activity as chronic conditions allow, also to monitor dietary intake: increasing protein/fruits/veggies and lowering carb intake (unless contraindicated). Limit sodas, juices, and sugary drinks. Assessment & Plan (10/08/2024 7:08 AM EDT): [...] past Primary hypertension 07/29/2024 Assessment & Plan (11/19/2024 7:30 AM EDT): Please check blood pressure daily and record DASH diet Limit caffeine Take medication as directed Contact office if chest pain, pressure, dizziness, shortness of breath, swelling legs Recommend slow position changes Current meds: amlodipine, carvedilol, losartan/hydrochlorothiazide, aldactone Assessment & Plan (10/08/2024 7:08 AM EDT): [...] Encounters Date Type Department Care Team Description 11/24/2024 Refill [facility] [address] [place] [address] Luci Rios, MARIA FERNANDA Type 2 diabetes mellitus without complication, with long-term current use of insulin ([facility]) (Primary Dx) 11/23/2024 Abstract [facility] [address] [place] [address] Luci Rios, MARIA FERNANDA 11/23/2024 [facility] [address] [place] [address] Luci Rios, CO [employer] 11/23/2024 Abstract [facility] [address] [place] [address] Luci Rios, MARIA FERNANDA 11/19/2024 3:40 PM EDT [facility] [address] [place] [address] Luci Rios, MARIA FERNANDA Type 2 diabetes mellitus with diabetic polyneuropathy, with long-term current use of insulin (HCC) (Primary Dx); Primary hypertension ; Morbid (severe) obesity due to excess calories ([facility]-H[facility]); Type 2 diabetes mellitus without complication, with long-term current use of insulin ([facility]); Resistant hypertension ; Hyperlipidemia, unspecified hyperlipidemia type ; Type 2 diabetes mellitus without complications (HCC); Severe persistent asthma without complication ([facility]); Gastroesophageal reflux disease without esophagitis 11/19/2024 Bamboo flowsheet [facility] [address] [place] [address] Luci Rios, CO [employer] 10/24/2024 Clinisync Result Encounter [facility] External Department Unsolicited Luci Rios, MARIA FERNANDA 10/24/2024 Clinisync Result Encounter [facility] External Department Unsolicited Luci Rios, MARIA FERNANDA 10/08/2024 3:40 PM EDT Office Visit [facility] [address] [place] [address] Luci Rios, MARIA FERNANDA Type 2 diabetes mellitus without complication, with long-term current use of insulin ([facility]) (Primary Dx); Type 2 diabetes mellitus with diabetic polyneuropathy, with long-term current use of insulin ([facility]); Primary hypertension ; Edema of both lower extremities; prison (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 ([facility]); Morbid (severe) obesity due to excess calories ([facility]-H[facility]); Severe persistent asthma without complication ([facility]); Elevated serum creatinine 10/08/2024 Bamboo flowsheet [facility] [address] [place] [address] Luci Rios, MARIA FERNANDA 09/17/2024 4:00 PM EDT Office Visit [facility] [address] [place] [address] Luci Rios, MARIA FERNANDA Elevated serum creatinine (Primary Dx); Primary hypertension ; Type 2 diabetes mellitus without complication, with long-term current use of insulin ([facility]) 09/17/2024 Bamboo flowsheet [facility] [address] [place] [address] Luci Rios, MARIA FERNANDA 09/09/2024 Clinisync Result Encounter [facility] External Department Unsolicited Luci Rios NP 08/31/2024 Orders Only [facility] [address] [place] [address] Luci Rios, MARIA FERNANDA Elevated serum creatinine (Primary Dx) from Last 3 Months Immunizations Immunization Administration Dates Next Due Influenza, injectable, MDCK, preservative free, quadrivalent 05/10/2021,02/17/2020 Influenza, injectable, quadrivalent, preservativ e free 03/12/2017 Influenza, seasonal, injectable 03/13/2022,03/09 Influenza, seasonal, injectable, preservative fr ee 05/28/2024 MMR 05/28/2024 Pneumococcal conjugate vacci ne, 21 valent (PCV21), polysaccharide ZKP004 conjugate, preservative free 05/28/2024 Tdap 03/23/2022 Zoster, [...] often do you attend chur ch or yarsani services? More than 4 times per year 01/21/2024 Do you belong to any clubs o r organizations such as shinto groups, unions, fraternal or athletic groups, or [...] Recorded Patient Health Questionnaire-2 Score 0 01/22/2024 [facility] - Occupational Stress Questionnaire Answer [...] any time in the past 12 m [facility], were you homeless or living in a chcf (including now)? No 01/21/2024 Sex and Gender [...] oz) 11/19/2024 3:43 P M EDT Height 167.6 cm (5' 6 ) 08/24/2024 3:27 PM EDT Body Mass Index 39.67 08/24/2024 3:27 PM EDT Plan of Treatment Upcoming Encounters Date Type Department Care Team (Late st Contact Info) Description 12/31/2024 3:40 PM EDT Office Visit [facility] [address] [place] [address] Luci Rios NP [address] [place] [address] 02/23/2025 3:15 PM EDT Procedure Visit [facility] [address] [place] [place] [address] Abisai Boateng, DPM [address], [place] [address] Health Maintenance Due Date Last Done Comments CT Colonography 1966 FIT-DNA 1966 FIT 1965 FOBT 1965 Sigmoidoscopy 1965 Diabetes: Retinopathy Screening 08/29/2024 Influenza Vaccine (#1) 2025 , 03/13/2022, 05/10/2021, Additional history exists Diabetes: Hemoglobin A1C 02/19/2025 025, 07/18/2024, 08/08/2023, Additional history exists Diabetes: Urine Protein Screening 07/18/2025 025, 08/08/2023 Colonoscopy 07/30/2034 07/30/2024, 0906/2021, 12/22/2021 Colorectal Cancer Screening 07/30/2034 Procedures Procedure Name Priority Date/Time Associated Diagnosis Comments POCT GLYCOSYLATED HEMOGLOBIN (HGB A1C) Routine 11/19/2024 3:57 PM EDT Type 2 diabetes mellitus without complication, with long-term current use of insulin (HCC) US RENAL BI 10/24/2024 11:37 AM EDT ALL BASIC METABOLIC PANEL Routine 10/24/2024 9:08 AM EDT ALL BASIC METABOLIC PANEL Routine 09/09/2024 3:07 PM EDT COLONOSCOPY DIAGNOSTIC Routine 07/30/2024 9:25 AM EST from Last 3 Months or Most Recently Relevant to Health Maintenance Results * (ABNORMAL) POCT glycosylated hemoglobin (Hb A1C) docked device (11/19/2024 3:57 PM EDT) Hemoglobin A1C 7.0 Blood Venous blood specimen / Unknown 11/19/2024 3:57 PM EDT us Luci Rios NP POINT OF CARE TEST ENTER/EDIT O RDERABLES Final Result * US RENAL BI (10/24/2024 11:37 AM EDT) Anatomical Region Laterality Modality Other 10/24/2024 11:3 7 AM EDT Narrative 10/24/2024 11:39 AM EDT [address] [address] Ultrasound Report Signed Patient: LAVERN ESCOBEDO MR#: [id number] : 1965 Acct:[id number] Age/Sex: 59 / M ADM Date: 10/24/24 Loc: US Attending Dr: Luci Rios NP Ordering Physician: Luci Rios NP Date of Service: 10/24/24 Procedure(s): US renal BI Accession Number(s): [id number] cc: Luci Rios NP [address] [address] Patient Name: LAVERN GARCIA MRN: [facility]:[id number] date: 1965 Sex: M Assigned Patient Location: US Current Patient Location: US Accession/Order Number: [id number] Exam Date: 10/24/2024 11:36 Report Date: 10/24/2024 11:37 At the request of: LUCI RIOS NP Procedure: US renal BI Bilateral Renal Ultrasound HISTORY: Elevated creatinine COMPARISON: None RIGHT kidney measures 11.3 cm. LEFT kidney measures 10.3 cm. Hydronephrosis: None RENAL STONE: No shadowing renal calculus is seen. RENAL LESIONS: 17 mm anechoic right renal cyst URINARY BLADDER: Unremarkable REPRODUCTIVE STRUCTURES Not assessed IMPRESSION : No hydronephrosis. Impression dictated by: Arslan Dunn M.D. 10/24/2024 11:37 AM Dictation Location: [place] [address] Electronically authenticated by: [id number] Y Date: 10/24/2024 11:37 Dictated By: Arslan Dunn D.O. Signed By: 10/24/24 1139 DD/ 1137 TD/TT: Multisensor Intelligence Officer: Procedure Note Radiology, Radiologist, MD - 10/24/2024 [place] [address] Ultrasound Report Signed Patient: LAVERN ESCOBEDOMR#: [id number] : 1965Acct:[id number] Age/Sex: 59 / MADM Date: 10/24/24 Loc: US Attending Dr: Luci Rios NP Ordering Physician: Luci Rios NP Date of Service: 10/24/24 Procedure(s): US renal BI Accession Number(s): [id number] cc: Luci Rios NP The [address] [address] Patient Name: LAVERN GARCIA MRN: [id number] date: 1965 Sex: M Assigned Patient Location: US Current Patient Location: US Accession/Order Number: [id number] Exam Date: 10/24/2024 11:36 Report Date: 10/24/2024 11:37 At the request of: LUCI RIOS NP Procedure: US renal BI Bilateral Renal Ultrasound HISTORY: Elevated creatinine COMPARISON: None RIGHT kidney measures 11.3 cm. LEFT kidney measures 10.3 cm. Hydronephrosis: None RENAL STONE: No shadowing renal calculus is seen. RENAL LESIONS: 17 mm anechoic right renal cyst URINARY BLADDER: Unremarkable REPRODUCTIVE STRUCTURES Not assessed IMPRESSION : No hydronephrosis. Impression dictated by: Arslan Dunn M.D. 10/24/2024 11:37 AM Dictation Location: [place] [address] Electronically authenticated by: [id number] Y Date: 1:37 Dictated By: Arslan Dunn D.O. Signed By:10/24/24 1139 DD/ 1137 TD/TT: Multisensor Intelligence Officer: Luci Rios NP [facility] Final Result * (ABNORMAL) ALL BASIC METABOLIC PANEL (10/24/2024 9:08 AM EDT) Only the most recent of2 resultswithin the time period is included. SODIUM 139 136 - 145 mmol/L [facility] POTASSIUM 4.8 3.5 - 5.1 mmol/L [facility] CHLORIDE 102 98 - 107 mmol/L [facility] CARBON DIOXIDE 27.2 21.0 - 32.0 mmol/L [facility] ANION GAP 14.6 [facility] GLUCOSE 143(H) 74 - 106 mg/dL [facility] BLOOD UREA NITROGEN 20.0(H) 7.0 - 18.0 mg/dL [facility] CREATININE 1.00 0.70 - 1.30 mg/dL [facility] EGFR-AF OMANI >60 >=60 mL/min/1.7 3m 2 [facility] EGFR-NON AF OMANI >60 >=60 mL/min/1.7 3m 2 [facility] BUN CREATININE RATIO 20.0 [facility] CALCIUM 8.8 8.5 - 10.1 mg/dL [facility] 10/24/2024 9:08 AM EDT 10/24/2024 9:29 AM EDT Narrative [facility] - 10/24/2024 9:51 AM EDT Luci Rios NP [facility] Final Result [facility] * COLONOSCOPY DIAGNOSTIC (07/30/2024 9:25 AM EST) Anatomical Region Laterality Modality Radiographic Juliann ging Sav Andrews MD IMG XR PROCEDURES Final Result from Last 3 Months or Most Recently Relevant to Health Maintenance Insurance BS Care Teams Quality Control Operator Relationship Specialty Start Date End Date Antwan Perez MD [address] [place] [address] PCP - General Family Medicine 12/30/23 Georgina Velasquez NP [address] [place] [address] Nurse Practitioner Family Medicine 12/30/23
--- OUTSIDE RECORDS SUMMARY | 2024-11-30 15:06 | XMS_ITS | Encounter Summary ---
Author Organization [facility] Address [address] [place] [address] Care Team Providers Care Copywriter Name Role Phone Antwan Perez MD Primary Care Provider [phone] Georgina Velasquez FINANCIAL MANAGER Unavailable [phone] Encounter Details Date Type Department Care Team (Late st Contact Info) Description 11/23/2024 Abstract [facility] [address] [place] [address] Luci Rios NP [address] [place] [address] Social History Tobacco Use Types Packs/Day Years [...] Never 01/21/2024 How often do you attend [facility] or latter-day services? More than 4 times per year [...] Recorded Patient Health Questionnaire-2 Score 0 01/22/2024 [facility] - Occupational Stress Questionnaire Answer Date [...] time in the past 12 m [facility], were you homeless or living in a fdc (including now)? No 01/21/2024 Sex and Gender [...] Office Visit [facility] [address] [place] [address] Luci Rios NP [address] [place] [address] 02/23/2025 3:15 PM EDT Procedure Visit [facility] [address] [place] [address] Abisai Boateng, DPM [address] [place] [address] documented as of this encounter Visit Diagnoses Not on filedocumented in this encounter Care Teams Copywriter Relationship Specialty Start Date End Date Antwan Perez MD [address] [place] [address] PCP - General Family Medicine 12/30/23 Georgina Velasquez NP [address] [place] [address] Nurse Practitioner Family Medicine 12/30/23 documented as of this encounter
--- OUTSIDE RECORDS SUMMARY | 2024-11-30 15:06 | XMS_ITS | Encounter Summary ---
Author Organization [facility] Address [address] [place] [address] Care Team Providers Care Functional Consultant Name Role Phone Antwan Perez MD Primary Care Provider [phone] Georgina Velasquez NP Unavailable [phone] Shaikh ALONSO Baker Unavailable [phone] Encounter Details Date Type Department Care [...] often do you attend chur ch or sikh services? More than 4 times per year 01/21/2024 Do you belong to any clubs o r organizations such as oriental orthodox groups, unions, fraternal or athletic groups, or [...] Recorded Patient Health Questionnaire-2 Score 0 10/24/2023 [facility] - Occupational Stress Questionnaire Answer Date [...] time in the past 12 m [facility], were you homeless or living in a [...] [facility] [address] [place] [address] Luci Rios NP [address] [place] [address] 02/23/2025 3:15 PM EDT Procedure Visit [facility] [address] [place] [address] Abisai Boateng, DPM [address] [place], [place] [address] documented as of this encounter Procedures Procedure Name Priority Date/Time Associated Diagnosis Comments XR ANKLE RT MIN 3V 01/17/2024 6: 46 AM EDT documented in this encounter Results * XR ANKLE RT MIN 3V (01/17/2024 6:46 AM EDT) Anatomical Region Laterality Modality Other 01/17/2024 6:46 AM EDT Narrative 01/17/2024 6:49 AM EDT The [place] [id number] XRay Report Signed Patient: LAVERN ESCOBEDO MR#: [id number] : 1965 Acct:[id number] Age/Sex: 58 / M ADM Date: 01/16/24 Loc: EC Attending Dr: Lizeth Martin Ordering Physician: Lizeth Martin Date of Service: 01/16/24 Procedure(s): XR ankle RT min 3V Accession Number(s): [id number] cc: Shaikh Heather Baker; Lizeth Martin [place] [id number] Patient Name: LAVERN GARCIA MRN: [id number]:[id number] date: 1965 Sex: M Assigned Patient Location: Current Patient Location: Accession/Order Number: [id number] Exam Date: 01/16/2024 14:55 Report Date: 01/17/2024 [...] Fitzgerald M.D. Signed By: 01/17/2449 DD/ TD/TT: Dipper Operator: Procedure Note Radiology, Radiologist, MD - 01/17/2024 [place] [address] XRay Report Signed Patient: LAVERN ESCOBEDOMR#: [id number] : 1965Acct:[id number] Age/Sex: 58 / MADM Date: 01/16/24 Loc: EC Attending Dr: Lizeth Martin Ordering Physician: Lizeth Martin Date of Service: 01/16/24 Procedure(s): XR ankle RT min 3V Accession Number(s): [id number] cc: Shaikh Heather Baker; Lizeth Martin [place] [id number] Patient Name: LAVERN GARCIA MRN: [id number] date: 1965 Sex: M Assigned Patient Location: Current Patient Location: Accession/Order Number: [id number] Exam Date: 01/16/2024 14:55 Report Date: 01/17/2024 [...] Robert Fitzgerald M.D. Signed By:01/17/2449 DD/ TD/TT: Dipper Operator: Generic External Data Provider [facility] Final Result documented in this encounter Visit Diagnoses Not on filedocumented in this encounter Care Teams Functional Consultant Relationship Specialty Start Date End Date Antwan Perez MD [address] [place] [address] PCP - General Family Medicine 12/30/23 Shaikh Baker MD [address] [place] [address] PCP - [employer] 02/25/24 Georgina Velasquez NP [address] [place] [address] Nurse Practitioner Family Medicine 12/30/23 documented as of this encounter
--- OUTSIDE RECORDS SUMMARY | 2024-11-30 15:06 | XMS_ITS | Encounter Summary ---
Author Organization [facility] Address [address] [place] [address] Care Team Providers Care Mortgage Loan Interviewer Name Role Phone Shaikh ALONSO Baker Primary Care Provider [phone] Shaikh ALONSO Baker Primary Care Provider Antwan Perez MD Primary Care Provider Georgina Velasquez NP Unavailable Shaikh ALONSO Baker Unavailable [phone] Encounter Details Date Type Department Care Team (Late st Contact Info) Description 06/05/2023 Orders Only [facility] [address] [place] [address] Bharath Perez Social History Tobacco Use Types [...] 12/31/2024 3:40 PM EDT Office Visit [facility] [address] [place] [address] Luci Rios WARP HAND [address] [place] [address] 02/23/2025 3:15 PM EDT Procedure Visit [facility] [address] [place] [address] Abisai Boateng DPM [address] [place], [place] [address] documented as of this encounter Procedures Procedure [...] on filedocumented in this encounter Care Teams Mortgage Loan Interviewer Relationship Specialty Start Date End Date Shaikh Baker MD PCP - General Internal Medicine 12/05/22 06/24/23 Shaikh Baker MD [address] [place] [address] PCP - General Internal Medicine 06/25/23 12/29/23 Antwan Perez MD [address] [place] [address] PCP - General Family Medicine 12/30/23 Shaikh Baker MD [address] [place] [address] PCP - [facility] 02/25/24 Georgina Velasquez NP [address] [place] [address] Nurse Practitioner Family Medicine 12/30/23 documented as of this encounter
--- OUTSIDE RECORDS SUMMARY | 2024-11-30 15:06 | XMS_ITS | Encounter Summary ---
Author Organization [facility] Address [address] [place] [address] Care Team Providers Care Hand Gluer And Slicer Name Role Phone Shaikh ALONSO Baker Primary Care Provider [phone] Antwan Perez MD Primary Care Provider [phone] Georgina Velasquez NP Unavailable [phone] Shaikh ALONSO Baker Unavailable [phone] Encounter Details Date Type Department Care [...] 0 10/24/2023 3:08 PM EDT Lis Godinez Ev Castañeda documented as of this encounter Plan of Treatment Upcoming Encounters Date Type Department Care Team (Late st Contact Info) Description 12/31/2024 3:40 PM EDT Office Visit [facility] [address] [place] [address] Luci Rios NP [address] [facility] [place] [address] 02/23/2025 3:15 PM EDT Procedure Visit [facility] [address] [place] [address] Abisai Boateng, DPM [address] [place] [place], [place] [address] documented as of this encounter Procedures Procedure Name Priority Date/Time Associated Diagnosis Comments XR ANKLE RT MIN 3V 10/23/2023 7: 35 AM EDT documented in this encounter Results * XR ANKLE RT MIN 3V (10/23/2023 7:35 AM EDT) Anatomical Region Laterality Modality Other 10/23/2023 7:35 AM EDT Narrative 10/23/2023 7:38 AM EDT The [address] [address] XRay Report Signed Patient: LAVERN ESCOBEDO MR#: [id number] : 1965 Acct:[id number] Age/Sex: 58 / M ADM Date: 10/22/23 Loc: EC Attending Dr: Rey Perez D.P.M. Ordering Physician: Rey Perez D.P.M. Date of Service: 10/22/23 Procedure(s): XR ankle RT min 3V Accession Number(s): [id number] cc: Shaikh Heather Baker; Rey Perez D.P.M. The [place] [address] Patient Name: LAVERN GARCIA MRN: [id number]:[id number] date: 1965 Sex: M Assigned Patient Location: Current Patient Location: Accession/Order Number: [id number] Exam Date: 10/22/2023 15:17 Report Date: 10/23/2023 [...] Signed By: 10/23/23 0738 DD/ 0735 TD/TT: Supervisor Forming Department: Procedure Note Radiology, Radiologist, MD - 10/23/2023 [place] [address] XRay Report Signed Patient: LAVERN ESCOBEDOMR#: [id number] : 1965Acct:[id number] Age/Sex: 58 / MADM Date: 10/22/23 Loc: EC Attending Dr: Rey Perez D.P.M. Ordering Physician: Rey Perez D.P.M. Date of Service: 10/22/23 Procedure(s): XR ankle RT min 3V Accession Number(s): [id number] cc: Shaikh Heather Baker; Rey Perez D.P.M. The [address] [address] Patient Name: LAVERN GARCIA MRN: [id number] date: 1965 Sex: M Assigned Patient Location: Current Patient Location: Accession/Order Number: [id number] Exam Date: 10/22/2023 15:17 Report Date: 10/23/2023 [...] Gera Blum M.D. Signed By:10/23/2338 DD/ TD/TT: Supervisor Forming Department: Generic External Data Provider [facility] Final Result documented in this encounter Visit Diagnoses Not on filedocumented in this encounter Care Teams Hand Gluer And Slicer Relationship Specialty Start Date End Date Shaikh Baker MD [address] [place] [address] PCP - General Internal Medicine 06/25/23 12/29/23 Antwan Perez MD [address] [place] [address] PCP - General Family Medicine 12/30/23 Shaikh Baker MD [address] [place] [address] PCP - [facility] 02/25/24 Georgina Velasquez NP [address] [place] [address] Nurse Practitioner Family Medicine 12/30/23 documented as of this encounter
--- OUTSIDE RECORDS SUMMARY | 2024-11-30 15:06 | XMS_ITS | Encounter Summary ---
Author Organization [facility] Address [address] [place] [address] Care Team Providers Care Student Success Advisor Name Role Phone Shaikh ALONSO Baker Primary Care Provider [phone] Antwan Perez MD Primary Care Provider [phone] Georgina Velasquez NP Unavailable [phone] Shaikh ALONSO Baker Unavailable [phone] Encounter Details Date Type Department Care [...] Visit [facility] [address] [place] [address] Luci Rios, MARIA FERNANDA [address] [place] [address] 02/23/2025 3:15 PM EDT Procedure Visit [facility] [address] [facility] [facility] [address] Abisai Boateng, DPM [address] [place] [address] documented as of this encounter Procedures Procedure Name Priority Date/Time Associated Diagnosis Comments XR ANKLE RT MIN 3V 09/11/2023 8: 52 AM EDT documented in this encounter Results * XR ANKLE RT MIN 3V (09/11/2023 8:52 AM EDT) Anatomical Region Laterality Modality Other 09/11/2023 8:52 AM EDT Narrative 09/11/2023 8:54 [place] [address] XRay Report Signed Patient: LAVERN ESCOBEDO MR#: [id number] : 1965 Acct:[id number] Age/Sex: 58 / M ADM Date: 09/10/23 Loc: EC Attending Dr: Rey Perez D.P.M. Ordering Physician: Rey Perez D.P.M. Date of Service: 09/10/23 Procedure(s): XR ankle RT min 3V Accession Number(s): [id number] cc: Shaikh Heather Baker; Rey Perez D.P.M. The [place] [id number] Patient Name: LAVERN GARCIA MRN: [id number] date: 1965 Sex: M Assigned Patient Location: EC Current Patient Location: Accession/Order Number: [id number] Exam Date: 09/10/2023 14:38 Report Date: 09/11/2023 [...] Blum M.D. Signed By: 09/11/2354 DD/ TD/TT: Bioinformatics Technician: Procedure Note Radiology, Radiologist, MD - 09/11/2023 [place] [address] XRay Report Signed Patient: LAVERN ESCOBEDOMR#: [id number] : 1965Acct:[id number] Age/Sex: 58 / MADM Date: 09/10/23 Loc: EC Attending Dr: Rey Perez D.P.M. Ordering Physician: Rey Perez D.P.M. Date of Service: 09/10/23 Procedure(s): XR ankle RT min 3V Accession Number(s): [id number] cc: Shaikh Heather Baker; Rey Perez D.P.M. The [place] [address] Patient Name: LAVERN GARCIA MRN: [id number] date: 1965 Sex: M Assigned Patient Location: Current Patient Location: Accession/Order Number: [id number] Exam Date: 09/10/2023 14:38 Report Date: 09/11/2023 [...] Gera Blum M.D. Signed By:09/11/2354 DD/ TD/TT: Bioinformatics Technician: us Generic External Data Provider [facility] Final Result documented in this encounter Visit Diagnoses Not on filedocumented in this encounter Care Teams Student Success Advisor Relationship Specialty Start Date End Date Shaikh Baker MD [address] [place] [address] PCP - General Internal Medicine 06/25/23 12/29/23 Antwan Perez MD [address] [place] [address] PCP - General Family Medicine 12/30/23 Shaikh Baker MD [address] [place] [address] PCP - [facility] 02/25/24 Georgina Velasquez NP [address] [place] [address] Nurse Practitioner Family Medicine 12/30/23 documented as of this encounter
--- NOTE | 2024-11-30 15:07 | XR_ITS ---
[place] [address] Patient Name: LAVERN GARCIA MRN: [id number] date: 1965 Sex: M Assigned Patient Location: RAD Current Patient Location: [facility] Accession/Order Number: [id number] Exam Date: 11/30/2024 16:31 Report Date: 11/30/2024 16:33 At the request of: REY ALCARAZ DPEv Procedure: XR ankle RT min 3V 3 views right ankle plain film standing position COMPARISON: 04/15/2024 HISTORY: Chronic right ankle pain. ACUTE FINDINGS: None DEGENERATIVE CHANGE: Unremarkable SOFT TISSUE FINDINGS: Unremarkable JOINT EFFUSION: None POSTOP CHANGES: Ankle fusion hardware and intramedullary marci in score screw present. Prosthetic spacer of the talus. Stable hardware without failure. BONE MINERALIZATION: Adequate XR/XR ankle RT min 3V IMPRESSION: Stable postsurgical changes. No hardware failure Impression dictated by: Arslan Dunn M.D. 11/30/2024 4:33 PM Dictation Location: [place] [address] Electronically authenticated by: [id number] Y Date: 11/30/2024 16:33
--- OUTSIDE RECORDS SUMMARY | 2024-11-30 15:07 | XMS_ITS | Encounter Summary ---
Author Organization [facility] Address [address] [place] [address] Care Team Providers Care State Game Warden Name Role Phone Shaikh ALONSO Baker Primary Care Provider [phone] Shaikh ALONSO Baker Primary Care Provider [phone] Antwan Perez MD Primary Care Provider [phone] Georgina Velasquez NP Unavailable [phone] Shaikh ALONSO Baker Unavailable [phone] Encounter Details Date Type Department Care [...] Visit [facility] [address] [place] [address] Luci Rios NP [address] [place] [address] 02/23/2025 3:15 PM EDT Procedure Visit [facility] [place] [address] Abisai Boateng, DPM [address] [place] [address] documented as of this encounter Procedures Procedure Name Priority Date/Time Associated Diagnosis Comments XR FOOT RT MIN 3V 05/25/2023 7:2 5 PM EST documented in this encounter Results * XR FOOT RT MIN 3V (05/25/2023 7:25 PM EST) Anatomical Region Laterality Modality Other 05/25/2023 7:25 PM EST Narrative 05/25/2023 7:27 PM EST [address] [address] XRay Report Signed Patient: LAVERN ESCOBEDO MR#: [id number] : 1965 Acct:[id number] Age/Sex: 58 / M ADM Date: 05/23/23 Loc: RAD Attending Dr: Rey Perez D.P.M. Ordering Physician: Rey Perez D.P.M. Date of Service: 05/23/23 Procedure(s): XR foot RT min 3V Accession Number(s): [id number] cc: Shaikh Heather Baker; Rey Perez D.P.M. The [address] [id number] Patient Name: LAVERN GARCIA MRN: [id number] date: 1965 Sex: M Assigned Patient Location: [facility] Current Patient Location: RAD Accession/Order Number: [id number] Exam Date: 05/23/2023 14:15 Report Date: 05/25/2023 [...] M.D. Signed By: 05/25/231926 DD/ 24 TD/TT: Credit Cashier: Procedure Note Radiology, Radiologist, MD - 07/31/2023 [place] [address] XRay Report Signed Patient: LAVERN ESCOBEDOMR#: [id number] : 1965Acct:[id number] Age/Sex: 58 / MADM Date: 05/23/23 Loc: RAD Attending Dr: Rey Perez D.P.M. Ordering Physician: Rey Perez D.P.M. Date of Service: 05/23/23 Procedure(s): XR foot RT min 3V Accession Number(s): [id number] cc: Shaikh Heather Baker; Rey Perez D.P.M. The [place] [id number] Patient Name: LAVERN GARCIA MRN: [facility]:[id number] date: 1965 Sex: M Assigned Patient Location: [facility] Current Patient Location: [facility] Accession/Order Number: [id number] Exam Date: 05/23/2023 14:15 Report Date: 05/25/2023 [...] Rae M.D. Signed By:05/25/231926 DD/ 24 TD/TT: Credit Cashier: us Generic External Data Provider [facility] Final Result documented in this encounter Visit Diagnoses Not on filedocumented in this encounter Care Teams State Game Warden Relationship Specialty Start Date End Date Shaikh Baker MD PCP - General Internal Medicine 12/05/22 06/24/23 Shaikh Baker MD [address] [place] [address] PCP - General Internal Medicine 06/25/23 12/29/23 Antwan Perez MD [address] [place] [address] PCP - General Family Medicine 12/30/23 Shaikh Baker MD [address] [place] [address] PCP - [facility] 02/25/24 Georgina Velasquez NP [address] [place] [address] Nurse Practitioner Family Medicine 12/30/23 documented as of this encounter
--- OUTSIDE RECORDS SUMMARY | 2024-11-30 15:07 | XMS_ITS | Encounter Summary ---
Author Organization [facility] Address [address] [place] [address] Care Team Providers Care Injection Operator Name Role Phone Shaikh ALONSO Baker Primary Care Provider Shaikh ALONSO Baker Primary Care Provider [phone] Antwan Perez MD Primary Care Provider [phone] Georgina Velasquez NP Unavailable Shaikh ALONSO Baker Unavailable [phone] Encounter Details Date Type Department Care [...] Visit [facility] [address] [place] [address] Luci Rios NP [address] [place] [address] 02/23/2025 3:15 PM EDT Procedure Visit [facility] [address] [place] [address] Abisai Boateng, DPM [address] [facility] [place] [address] documented as of this encounter Procedures Procedure Name Priority Date/Time Associated Diagnosis Comments XR ANKLE RT MIN 3V 05/02/2023 2: 36 PM EST documented in this encounter Results * XR ANKLE RT MIN 3V (05/02/2023 2:36 PM EST) Anatomical Region Laterality Modality Other 05/02/2023 2:36 PM EST Narrative 05/02/2023 2:38 PM EST [address] [address] XRay Report Signed Patient: LAVERN ESCOBEDO MR#: [id number] : 1965 Acct:[id number] Age/Sex: 58 / M ADM Date: 05/02/23 Loc: RAD Attending Dr: Rey Perez D.P.M. Ordering Physician: Rey Perez D.P.M. Date of Service: 05/02/23 Procedure(s): XR ankle RT min 3V Accession Number(s): [id number] cc: Shaikh Heather Baker; Rey Perez D.P.M. The [address] [address] Patient Name: LAVERN GARCIA MRN: [id number] date: 1965 Sex: M Assigned Patient Location: RAD Current Patient Location: RAD Accession/Order Number: [id number] Exam Date: 05/02/2023 13:40 Report Date: 05/02/2023 [...] Signed By: 05/02/23 1438 DD/ 35 TD/TT: Reimbursement Specialist: Procedure Note Radiology, Radiologist, MD - 05/02/2023 [place] [address] XRay Report Signed Patient: LAVERN ESCOBEDOMR#: [id number] : 1965Acct:[id number] Age/Sex: 58 / MADM Date: 05/02/23 Loc: RAD Attending Dr: Rey Perez D.P.M. Ordering Physician: Rey Perez D.P.M. Date of Service: 05/02/23 Procedure(s): XR ankle RT min 3V Accession Number(s): [id number] cc: Shaikh Heather Baker; Rey Perez D.P.M. The [place] [address] Patient Name: LAVERN GARCIA MRN: [id number] date: 1965 Sex: M Assigned Patient Location: [facility] Current Patient Location: [facility] Accession/Order Number: [id number] Exam Date: 05/02/2023 13:40 Report Date: 05/02/2023 [...] M.D. Signed By:05/02/23 1438 DD/ 35 TD/TT: Reimbursement Specialist: Generic External Data Provider [facility] Final Result documented in this encounter Visit Diagnoses Not on filedocumented in this encounter Care Teams Injection Operator Relationship Specialty Start Date End Date Shaikh Baker MD PCP - General Internal Medicine 12/05/22 06/24/23 Shaikh Baker MD [address] [place] [address] PCP - General Internal Medicine 06/25/23 12/29/23 Antwan Perez MD [address] [place] [address] PCP - General Family Medicine 12/30/23 Shaikh Baker MD [address] [place] [address] [facility] 02/25/24 Georgina Velasquez NP [address] [place] [address] Nurse Practitioner Family Medicine 12/30/23 documented as of this encounter
--- OUTSIDE RECORDS SUMMARY | 2024-11-30 15:07 | XMS_ITS | Encounter Summary ---
Author Organization [facility] Address [address] [place] [address] Care Team Providers Care Beef Trimmer Name Role Phone Antwan Perez MD Primary Care Provider [phone] Georgina Velasquez NP Unavailable Shaikh ALONSO Baker Unavailable [phone] Encounter Details Date Type Department Care Team (Late st Contact Info) Description 07/30/2024 Orders Only [facility] [address] [place] [address] Sav Andrews MD [address] [facility] [address] [place] [address] Social History Tobacco Use Types [...] 01/21/2024 How often do you attend [facility] or [facility]? More than 4 times per year 01/21/2024 Do you belong to any clubs o r organizations such as denominational groups, unions, fraternal or athletic groups, or [...] Recorded Patient Health Questionnaire-2 Score 0 01/22/2024 [facility] - Occupational Stress Questionnaire Answer [...] Office Visit [facility] [address] [place] [address] Luci Rios NP [address] [place] [address] 02/23/2025 3:15 PM EDT Procedure Visit [facility] [address] [facility] [address] Abisai Boateng, DPM [address] [place] [address] documented as of this encounter Procedures Procedure Name Priority Date/Time Associated Diagnosis Comments COLONOSCOPY DIAGNOSTIC Routine 07/30/2024 9:25 AM EST documented in this encounter Results * COLONOSCOPY DIAGNOSTIC (07/30/2024 9:25 AM EST) Anatomical Region Laterality Modality Radiographic Juliann ging us Sav Andrews MD IMG XR PROCEDURES Final Result documented in this encounter Visit Diagnoses Not on filedocumented in this encounter Care Teams Beef Trimmer Relationship Specialty Start Date End Date Antwan Perez MD [address] [place] [address] PCP - General Family Medicine 12/30/23 Shaikh Baker MD [address] [place] [address] PCP - [facility] 02/25/24 Georgina Velasquez NP [address] [place] [address] Nurse Practitioner Family Medicine 12/30/23 documented as of this encounter
--- OUTSIDE RECORDS SUMMARY | 2024-11-30 15:07 | XMS_ITS | Encounter Summary ---
Author Organization [facility] Address [address] [place] [address] Care Team Providers Care Material Damage Adjuster Name Role Phone Shaikh ALONSO Baker Primary Care Provider [phone] Shaikh ALONSO Baker Primary Care Provider [phone] Antwan Perez MD Primary Care Provider Georgina Velasquez NP Unavailable Shaikh ALONSO Baker Unavailable [phone] Encounter Details Date Type Department Care Team (Late st Contact Info) Description 05/22/2023 Abstract [facility] [address] [place] [address] Shaikh Baker MD [address] [place] [address] Social History Tobacco Use Types Packs/Day Years [...] 3:40 PM EDT Office Visit [facility] [address] [place] [address] Luci Rios NP [address] [place] [address] 02/23/2025 3:15 PM EDT Procedure Visit [facility] [address] [place] [address] Abisai Boateng, DPM [address] [place], [place] [address] documented as of this encounter Visit Diagnoses Not on filedocumented in this encounter Care Teams Material Damage Adjuster Relationship Specialty Start Date End Date Shaikh Baker MD PCP - General Internal Medicine 12/05/22 06/24/23 Shaikh Baker MD [address] [place] [address] PCP - General Internal Medicine 06/25/23 12/29/23 Antwan Perez MD [address] [place] [address] PCP - General Family Medicine 12/30/23 Shaikh Baker MD [address] [place] [address] PCP - [facility] 02/25/24 Georgina Velasquez NP [address] [place] [address] Nurse Practitioner Family Medicine 12/30/23 documented as of this encounter
--- OUTSIDE RECORDS SUMMARY | 2024-11-30 15:07 | XMS_ITS | Encounter Summary ---
Author Organization [facility] Address [address] [place] [address] Care Team Providers Care Air Crew Officer Name Role Phone Shaikh ALONSO Baker Primary Care Provider Shaikh ALONSO Baker Primary Care Provider Antwan Perez MD Primary Care Provider Georgina Velasquez NP Unavailable [phone] Shaikh ALONSO Baker Unavailable [phone] Encounter Details Date Type Department Care Team (Late st Contact Info) Description 05/23/2023 [facility] [address] [place] [address] Bharath Perez Social History Tobacco Use Types [...] Office Visit [facility] [address] [place] [address] Luci Rios TRAVEL PROFESSIONAL [address] [place] [address] 02/23/2025 3:15 PM EDT Procedure Visit [facility] [address] [place] [address] Abisai Boateng DPM [address] [place], [place] [address] documented as of this encounter Procedures Procedure [...] on filedocumented in this encounter Care Teams Air Crew Officer Relationship Specialty Start Date End Date Shaikh Baker MD PCP - General Internal Medicine 12/05/22 06/24/23 Shaikh Baker MD [address] [place] [address] PCP - General Internal Medicine 06/25/23 12/29/23 Antwan Perez MD [address] [place] [address] PCP - General Family Medicine 12/30/23 Shaikh Baker MD [address] [place] [address] PCP - [facility] 02/25/24 Georgina Velasquez NP [address] [place] [address] Nurse Practitioner Family Medicine 12/30/23 documented as of this encounter
--- OUTSIDE RECORDS SUMMARY | 2024-11-30 15:07 | XMS_ITS | Encounter Summary ---
Author Organization [facility] Address [address] [place] [address] Care Team Providers Care Avionics Repair Technician Name Role Phone Shaikh ALONSO Baker Primary Care Provider Shaikh ALONSO Baker Primary Care Provider Antwan Perez MD Primary Care Provider [phone] Georgina Velasquez NP Unavailable Shaikh ALONSO Baker Unavailable [phone] Encounter Details Date Type Department Care [...] Visit [facility] [address] [place] [address] Luci Rios NP [address] [place] [address] 02/23/2025 3:15 PM EDT Procedure Visit [facility] [address] [address] Abisai Boateng, DPM [address] [place] [address] documented as of this encounter Procedures Procedure Name Priority Date/Time Associated Diagnosis Comments XR ANKLE LT MIN 3V 05/25/2023 6: 11 PM EST documented in this encounter Results * XR ANKLE LT MIN 3V (05/25/2023 6:11 PM EST) Anatomical Region Laterality Modality Other 05/25/2023 6:11 PM EST Narrative 05/25/2023 6:14 PM EST [address] [address] XRay Report Signed Patient: LAVERN ESCOBEDO MR#: [id number] : 1965 Acct:[id number] Age/Sex: 58 / M ADM Date: 05/23/23 Loc: RAD Attending Dr: Rey Perez D.P.M. Ordering Physician: Rey Perez D.P.M. Date of Service: 05/23/23 Procedure(s): XR ankle LT min 3V Accession Number(s): [id number] cc: Shaikh Heather Baker; Rey Perez D.P.M. [address] [address] Patient Name: LAVERN GARCIA MRN: [id number] date: 1965 Sex: M Assigned Patient Location: [facility] Current Patient Location: Accession/Order Number: [id number] Exam Date: 05/23/2023 14:15 Report Date: 05/25/2023 [...] M.D. Signed By: 05/25/231813 DD/ 10 TD/TT: Wastewater Plant Operator: Procedure Note Radiology, Radiologist, - 05/25/2023 [place] [address] XRay Report Signed Patient: LAVERN ESCOBEDOMR#: [id number] : 1965Acct:[id number] Age/Sex: 58 / MADM Date: 05/23/23 Loc: RAD Attending Dr: Rey Perez D.P.M. Ordering Physician: Rey Perez D.P.M. Date of Service: 05/23/23 Procedure(s): XR ankle LT min 3V Accession Number(s): [id number] cc: Shaikh Heather Baker; Rey Perez D.P.M. The [place] [id number] Patient Name: LAVERN GARCIA MRN: [id number] date: 1965 Sex: M Assigned Patient Location: [facility] Current Patient Location: Accession/Order Number: [id number] Exam Date: 05/23/2023 14:15 Report Date: 05/25/2023 [...] Rae M.D. Signed By:05/25/231813 DD/ 10 TD/TT: Wastewater Plant Operator: us Generic External Data Provider [facility] Final Result documented in this encounter Visit Diagnoses Not on filedocumented in this encounter Care Teams Avionics Repair Technician Relationship Specialty Start Date End Date Shaikh Baker MD PCP - General Internal Medicine 12/05/22 06/24/23 Shaikh Baker MD [address] [place] [address] PCP - General Internal Medicine 06/25/23 12/29/23 Antwan Perez MD [address] [place] [address] PCP - General Family Medicine 12/30/23 Shaikh Baker MD [address] [place] [address] PCP - [facility] 02/25/24 Georgina Velasquez NP [address] [place] [address] Nurse Practitioner Family Medicine 12/30/23 documented as of this encounter
--- OUTSIDE RECORDS SUMMARY | 2024-11-30 15:07 | XMS_ITS | Encounter Summary ---
Author Organization [facility] Address [address] [place] [address] Care Team Providers Care Special Warfare Operator Name Role Phone Shaikh ALONSO Baker Primary Care Provider Shaikh ALONSO Baker Primary Care Provider [phone] Antwan Perez MD Primary Care Provider Georgina Velasquez NP Unavailable Shaikh ALONSO Baker Unavailable [phone] Encounter Details Date Type Department Care [...] Visit [facility] [address] [place] [address] Luci Rios NP [address] [place] [address] 02/23/2025 3:15 PM EDT Procedure Visit [facility] [place] [address] Abisai Boateng, DPM [address] [facility] [place], [place] [address] documented as of this encounter Procedures Procedure Name Priority Date/Time Associated Diagnosis Comments XR FOOT RT MIN 3V 05/02/2023 2:3 6 PM EST documented in this encounter Results * XR FOOT RT MIN 3V (05/02/2023 2:36 PM EST) Anatomical Region Laterality Modality Other 05/02/2023 2:36 PM EST Narrative 05/02/2023 2:38 PM EST [address] [address] XRay Report Signed Patient: LAVERN ESCOBEDO MR#: [id number] : 1965 Acct:[id number] Age/Sex: 58 / M ADM Date: 05/02/23 Loc: RAD Attending Dr: Rey Perez D.P.M. Ordering Physician: Rey Perez D.P.M. Date of Service: 05/02/23 Procedure(s): XR foot RT min 3V Accession Number(s): [id number] cc: Shaikh Heather Baker; Rey Perez D.P.M. The [address] [id number] Patient Name: LAVERN GARCIA MRN: [id number] date: 1965 Sex: M Assigned Patient Location: RAD Current Patient Location: RAD Accession/Order Number: [id number] Exam Date: 05/02/2023 13:40 Report Date: 05/02/2023 [...] Signed By: 05/02/23 1438 DD/ 1436 TD/TT: Butter Printer: Procedure Note Radiology, Radiologist, MD - 05/02/2023 [place] [address] XRay Report Signed Patient: LAVERN ESCOBEDOMR#: [id number] : 1965Acct:[id number] Age/Sex: 58 / MADM Date: 05/02/23 Loc: RAD Attending Dr: Rey Perez D.P.M. Ordering Physician: Rey Perez D.P.M. Date of Service: 05/02/23 Procedure(s): XR foot RT min 3V Accession Number(s): [id number] cc: Shaikh Heather Baker; Rey Perez D.P.M. The [place] [address] Patient Name: LAVERN GARCIA MRN: [id number] date: 1965 Sex: M Assigned Patient Location: [facility] Current Patient Location: [facility] Accession/Order Number: [id number] Exam Date: 05/02/2023 13:40 Report Date: 05/02/2023 [...] M.D. Signed By:05/02/23 1438 DD/ 35 TD/TT: Butter Printer: us Generic External Data Provider [facility] Final Result documented in this encounter Visit Diagnoses Not on filedocumented in this encounter Care Teams Special Warfare Operator Relationship Specialty Start Date End Date Shaikh Baker MD PCP - General Internal Medicine 12/05/22 06/24/23 Shaikh Baker MD [address] [place] [address] PCP - General Internal Medicine 06/25/23 12/29/23 Antwan Perez MD [address] [place] [address] PCP - General Family Medicine 12/30/23 Shaikh Baker MD [address] [place] [address] [facility] 02/25/24 Georgina Velasquez NP [address] [place] [address] Nurse Practitioner Family Medicine 12/30/23 documented as of this encounter
--- OUTSIDE RECORDS SUMMARY | 2024-11-30 15:07 | XMS_ITS | Encounter Summary ---
Author Organization [facility] Address [address] [place] [address] Care Team Providers Care Barber Instructor Name Role Phone Shaikh ALONSO Baker Primary Care Provider [phone] Shaikh ALONSO Baker Primary Care Provider [phone] Antwan Perez MD Primary Care Provider Georgina Velasquez NP Unavailable Shaikh ALONSO Baker Unavailable [phone] Encounter Details Date Type Department Care [...] Visit [facility] [address] [place] [address] Luci Rios NP [address] [place] [address] 02/23/2025 3:15 PM EDT Procedure Visit [facility] [address] [place] [address] Abisai Boateng, DPM [address] [facility] [place] [address] documented as of this encounter Procedures Procedure Name Priority Date/Time Associated Diagnosis Comments XR ANKLE RT MIN 3V 05/25/2023 6: 11 PM EST documented in this encounter Results * XR ANKLE RT MIN 3V (05/25/2023 6:11 PM EST) Anatomical Region Laterality Modality Other 05/25/2023 6:11 PM EST Narrative 05/29/2023 9:09 AM EST [address] [address] XRay Report Signed Patient: LAVERN ESCOBEDO MR#: [id number] : 1965 Acct:[id number] Age/Sex: 58 / M ADM Date: 05/23/23 Loc: RAD Attending Dr: Rey Perez D.P.M. Ordering Physician: Rey Perez D.P.M. Date of Service: 05/23/23 Procedure(s): XR ankle RT min 3V Accession Number(s): [id number] cc: Shaikh Heather Baker; Rey Perez D.P.M. [address] [address] Patient Name: LAVERN GARCIA MRN: [id number] date: 1965 Sex: M Assigned Patient Location: RAD Current Patient Location: RAD Accession/Order Number: [id number] Exam Date: 05/23/2023 14:15 Report Date: 05/25/2023 [...] M.D. Signed By: 05/29/23908 DD/ 10 TD/TT: Circuit Manager: Procedure Note Radiology, Radiologist, - 07/31/2023 [place] [address] XRay Report Signed Patient: LAVERN ESCOBEDOMR#: [id number] : 1965Acct:[id number] Age/Sex: 58 / MADM Date: 05/23/23 Loc: RAD Attending Dr: Rey Perez D.P.M. Ordering Physician: Rey Perez D.P.M. Date of Service: 05/23/23 Procedure(s): XR ankle RT min 3V Accession Number(s): [id number] cc: Shaikh Heather Baker; Rey Perez D.P.M. The [place] [id number] Patient Name: LAVERN GARCIA MRN: [facility]:[id number] date: 1965 Sex: M Assigned Patient Location: [facility] Current Patient Location: [facility] Accession/Order Number: [id number] Exam Date: 05/23/2023 14:15 Report Date: 05/25/2023 [...] Rae M.D. Signed By:05/29/2309 DD/ 10 TD/TT: Circuit Manager: us Generic External Data Provider [facility] Final Result documented in this encounter Visit Diagnoses Not on filedocumented in this encounter Care Teams Barber Instructor Relationship Specialty Start Date End Date Shaikh Baker MD PCP - General Internal Medicine 12/05/22 06/24/23 Shaikh Baker MD [address] [place] [address] PCP - General Internal Medicine 06/25/23 12/29/23 Antwan Perez MD [address] [place] [address] PCP - General Family Medicine 12/30/23 Shaikh Baker MD [address] [place] [address] [facility] 02/25/24 Georgina Velasquez NP [address] [place] [address] Nurse Practitioner Family Medicine 12/30/23 documented as of this encounter
--- OUTSIDE RECORDS SUMMARY | 2024-11-30 15:07 | XMS_ITS | Encounter Summary ---
Author Organization [facility] Address [address] [place] [address] Care Team Providers Care Milled Rubber Tender Name Role Phone Shaikh ALONSO Baker Primary Care Provider Shaikh ALONSO Baker Primary Care Provider Antwan Perez MD Primary Care Provider Georgina Velasquez NP Unavailable Shaikh ALONSO Baker Unavailable [phone] Encounter Details Date Type Department Care Team (Late st Contact Info) Description 05/30/2023 Orders Only [facility] [address] [place] [address] Bharath Perez Social History Tobacco Use Types [...] Office Visit [facility] [address] [place] [address] Luci Rios FILM CREW MEMBER [address] [place] [address] 02/23/2025 3:15 PM EDT Procedure Visit [facility] [address] [place] [address] Abisai Boateng DPM [address] [place], [place] [address] documented as of this encounter Procedures Procedure [...] on filedocumented in this encounter Care Teams Milled Rubber Tender Relationship Specialty Start Date End Date Shaikh Baker MD PCP - General Internal Medicine 12/05/22 06/24/23 Shaikh Baker MD [address] [place] [address] PCP - General Internal Medicine 06/25/23 12/29/23 Antwan Perez MD [address] [place] [address] PCP - General Family Medicine 12/30/23 Shaikh Baker MD [address] [place] [address] PCP - [facility] 02/25/24 Georgina Velasquez NP [address] [place] [address] Nurse Practitioner Family Medicine 12/30/23 documented as of this encounter
== END 2024-11-30 15:03 | disposition home or self-care (01) ==
LOC: RAD 15:03
PROVIDERS: PCP Nurse Practitioner; Visit Provider Podiatrist Foot & Ankle Surgery
DX: M25.571 Pain in right ankle and joints of right foot (principal); Z98.890 Other specified postprocedural states
CPT/HCPCS: 73610

== ENCOUNTER 2024-12-31 16:56 | Outpatient (OUT) | payer BC, SELFPAY ==
--- OUTSIDE RECORDS SUMMARY | 2024-08-04 12:30 | XMS_ITS ---
Author Organization [facility] in [place] Address [address] [place] [address] Care Team Providers Care Front End Developer Designer Name Role Phone Luci Rios CNP Primary Care Provider Unavail able Lane Durbin Unavailable [phone] Allergies No Known Allergies REASON FOR VISIT 1YEAR-ASTHMA Medications Medication SIG (Take, Route, Frequency, Duration) Notes Start Date End Date Status Vitamin D3 Maximum Strength 125 MCG (5000 UT) Oral for 90 Days Active Trelegy Ellipta 100-62.5-25 MCG/ACT 1 puff Inhalation QD for 90 days Rinse after use Active Omeprazole 40 MG 1 capsule 30 minutes before morning meal Orally Once a day Active Albuterol Sulfate HFA 108 (90 Base) MCG/ACT 2 puffs as needed for SOB Inhalation Q4H for 90 days Active metFORMIN HCl 850 MG 1 tablet with a yaneli l Orally Once a day Active EQ Vegetable Laxative 8.6 MG Oral for 7 Days Active Meloxicam 15 MG TAKE 1 TABLET BY JAVAN TH ONCE DAILY NEEDED FOR PAIN for 30 Active Losartan Potassium-HCTZ 100-25 MG 1 tablet Orally Once a day Active Levemir FlexTouch 100 UNIT/ML as directed Subcutaneous Active Fish Oil 1200 MG 1 capsule Orally Onc e a day Active Coreg 25 MG 1 tablet with food Orally Twice a day Active Carvedilol 25 MG Oral for 90 Days Active Calcium 500 MG 1 tablet with meals Orally daily for 90 days 04/17/2023 Active Atorvastatin Calcium 40 MG 1 tablet Orally Once a day Active Social History Tobacco Use: Social History Observation Description Date Details (start date - stop date) Former Smoker NA - NA Tobacco Control (Standard) Question Answer Notes Tobacco use: Former smoker How long has it been since y ou last smoked? Greater than 10 years Additional Findings: Tobacco non-user Ex -very heavy cigarette smoker (40+/day) Vital Signs Temperature 97.1 degrees Fahrenheit 08/05/19 25 Blood pressure systolic 157 mm Hg 08/05/19 25 Blood pressure diastolic 89 mm Hg 025 Heart Rate 60 /min 08/04/2024 Respiratory Rate 18 /min 08/04/2024 Height 67 in 08/04/2024 Weight 238.6 lbs 08/04/2024 BMI 37.37 kg/m2 08/04/2024 Oximetry 97 % 08/04/2024 Encounters Encounter Location Date Provider Diagnosis Pulmonary Medicine [address] [address] 08/04/2024 Lane Durbin Severe persistent asthma, uncomplicated J45.50 ; Peripheral eosinophilia D72.19 ; Diabetes mellitus type 2, uncomplicated E11.9 ; correction (current) use of inhaled steroids Z79.51 and Obesity, unspecified E66.9 Assessments Encounter Date Diagnosis (ICD Code) Assessment Notes Treatment Notes Treatment Clinical Notes Section Notes 08/04/2024 Severe persistent asthma, uncomplicated (ICD-10 - J45.50) Prior inhalers: Trelegy 200 > Symbicort 160 > Flovent Having difficulty affording Trelegy again, causing a 2 month lapse in therapy. He was able to get some samples to carry him through today. I provided him with a Trelegy co-pay card; hopefully he will be able to get it covered that way. If not, I wrote down on a paper for him to contact his insurance to receive the formulary for inhaled pulmonary medications to look for alternatives. He was previously on Flovent and Symbicort 160 which were less efficacious than Trelegy 200. The next step if his breathing declines would be to look into biologics. 08/04/2024 Peripheral eosinophilia (ICD-10 - D72.19) 08/04/2024 Diabetes mellitus type 2, uncomplicated (ICD-10 - E11.9) Steroids prescribed for this patient's underlying pulmonary disease can adversely affect blood glucose levels, inducing hyperglycemia and worsening underlying diabetes. The patient is encouraged to follow up with the primary care provider to create a plan to manage diabetes in this situation. 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 08/04/2024 Obesity, unspecified (ICD-10 - E66.9) He has gained some weight since last visit (235 on 03/26/2023 to 249 today). Weight loss indicated: Decrease calories, increase activity. Plan Of Treatment Medication Medication Name Sig Start Date Stop Date Notes Trelegy Ellipta 100-62.5-25 MCG/ACT 1 puff Inhalation QD for 90 days Rinse after use Albuterol Sulfate HFA 108 (90 Base) MCG/ACT 2 puffs as needed for SOB Inhalation Q4H for 90 days Treatment Notes Assessment Notes Severe persistent asthma, uncomplicated Having difficulty affording Trelegy again, causing a 2 month lapse in therapy. He was able to get some samples to carry him through today. I provided him with a Trelegy co-pay card; hopefully he will be able to get it covered that way. If not, I wrote down on a paper for him to contact his insurance to receive the formulary for inhaled pulmonary medications to look for alternatives. He was previously on Flovent and Symbicort 160 which were less efficacious than Trelegy 200. The next step if his breathing declines would be to look into biologics. Diabetes mellitus type 2, uncomplicated Steroids prescribed for this patient's underlying pulmonary disease can adversely affect blood glucose levels, inducing hyperglycemia and worsening underlying diabetes. The patient is encouraged to follow up with the primary care provider to create a plan to manage diabetes in this situation. beater tender (current) use of i nhaled steroids Patient was counseled to rinse & gargle with water after inhaled corticosteroid use. Obesity, unspecified He has gained some weight since last visit (235 on 03/26/2023 to 249 today). Weight loss indicated: Decrease calories, increase activity. Next Appt Details Follow Up: 1 Year, Reason: A emma Provider Name:Lanesuraj Thomas, 08/03/2025 04:30:00 PM, [address] [place], [address], Procedure Notes * Category Sub-Category Detail Notes PFT Interpretation FEV1/FVC: PFT 12/01/2020: -FEV1/FVC: 57%-FEV1: 38%-FVC: 53%-Bronchodilator response: Positive-RV: 195%-T%-DLCO: 111%-Flow-volume loop: Severe obstruction Progress Notes * Dante ESCOBEDODOB: (59 yo M)Acc No.[id number]:08/04/2024 Follow Up Patient: Dante GRAY Provider: Shani Durbin DO :1965 A ge:59 Y S ex:Male Date:08/04/2024 Address:[facility], [id number] Pcp:Luci Rios CNP Check In:04:27 PM ESTCheck O ut:05:05 PM EST Subjective: * Chief Complaints: * 1 YEAR-ASTHMA * HPI: G eneral: Patient states Trelegy 200 continues to work well for him.? However, he has difficulty affording the prescriptions - it was sometimes costing ~$250+, something he is unable to afford. He was without Trelegy for ~2 months and was having some difficulty breathing. He was able to get some samples and his breathing has improved. He is currently not requiring any albuterol. MA Intake Comments:. Patient presents for a follow-up for Asthma. Patient complains of SOB with exertion. Patient is using Trelegy daily with benefit. Patient states he is unable to afford the Trelegy and was given two samples from his PCP. Patient states he has problems on and off with insurance covering Trelegy. Patient reports rare albuterol use. Patient denies tobacco use. * ROS: G eneral/Constitutional: Fever or sweats d enies. D epression d enies. C hange of appetite d enies. C hills d enies. W eight Change d enies. ? H EENT: Dry mouth o ccasional. S ore throat d enies. O ral Ulcers d enies. P ost Nasal Drip D enies.?Hoarseness D enies. C ardiovascular: Tachycardia d enies. C hest pain d enies. P alpitations d enies. R espiratory: Pleurisy D enies. D yspnea w ith strenuous activity. C ough a dmits. H emoptysis d enies. W heezing a dmits. G astrointestinal: Acid Reflux/GERD/Heartburn d enies. D ysphagia d enies. M usculoskeletal: Arthralgias/joint pain D enies. B ack pain d enies.? S kin: Easy bruising d enies. R raza d enies. ? N eurologic: Seizures d enies. T remor d enies. H ematology: Abnormal Bleeding d enies. P sychiatric: Anxiety d enies. 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, right ankle and foot Modified On:09/06/2023U Status:confirmed 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 Modified On:06/21/2023U Status:confirmed 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 Modified On:12/05/2022U Status:confirmed 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 Modified On:06/10/2023U Status:confirmed 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 Modified On:06/10/2023U Status:confirmed E11.9 Diabetes mellitus Modified On:06/10/2023U Status:confirmed I10 Hypertension Modified On:06/10/2023U Status:confirmed J45.909 Asthma Modified On:06/10/2023/U Status:confirmed K21.9 GERD (gastroesophage al reflux disease) Modified On:06/10/2023U Status:confirmed M87.00 Avascular necrosis o f bone Modified On:07/16/2023U Status:confirmed M21.6X1 Acquired equinus def ormity of right foot Modified On:06/21/2023U Status:confirmed 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 Modified On:07/16/2023U Status:confirmed Z68.39 Body mass index [BMI ] 39.0-39.9, adult Modified On:08/06/2023U Status:confirmed M25.571 Right ankle pain Modified On:10/22/2023 Status:confirmed * Medical History: * Surgical History: R ight total talus replacement with 3-D printed implant 01/21/2020right ankle arthroscopy 10/10/2020ight ankle and subtalar joint fusions with 3D printed patient specific talar cage, removal of orthopedic hardware/implant, harvest of tibial bone graft, tendo Achilles lengthening, intra op fluoro exam 04/11/2023 * Hospitalization/Major Diagno stic Procedure: R ight total talus replacement 01/21/2020 * Family History: F ather: stroke. S ister(s): diagnosed with Diabetes mellitus without mention of complication, type II or unspecified type, not stated as uncontrolled. * Social History: T obacco Use: T obacco Control (Standard) T obacco use: F ormer smoker H ow long has it been since you last smoked??Greater than 10 years A dditional Findings: Tobacco non-user E x-very heavy cigarette smoker (40+/day) Electronic Cigarette use C urrent user N o LM: Additional Tobacco Questions N umber of Years Pt Smoked: 1 4 N umber of Packs per Day: 2 When did you stop smokin. M iscellaneous: C affeine: 1-2 cups per day. 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 N o D oes the Patient have a History of Drug Abuse in the Past? N o Caffeine I ntake: 1 -2 cups per day Coffee Do you drink alcohol?: No. Do you smoke marijuana?: Denies. * Medications: T akingAlbuterol Sulfate HFA 108 (90 Base) MCG/ACT Aerosol Solution 2 puffs as needed for SOB Inhalation Q4H Atorvastatin Calcium 40 MG Tablet 1 tablet Orally Once a day Calcium 500 MG Tablet 1 tablet with meals Orally daily Carvedilol 25 MG Tablet Oral Coreg(Carvedilol) 25 MG Tablet 1 tablet with food Orally Twice a day EQ Vegetable Laxative(Sennosides) 8.6 MG Tablet Oral Fish Oil 1200 MG Capsule 1 capsule Orally Once a day Levemir FlexTouch 100 UNIT/ML Solution Pen-injector as directed Subcutaneous Losartan Potassium-HCTZ 100-25 MG Tablet 1 tablet Orally Once a day Meloxicam 15 MG Tablet TAKE 1 TABLET BY MOUTH ONCE DAILY NEEDED FOR PAIN metFORMIN HCl 850 MG Tablet 1 tablet with a meal Orally Once a day Omeprazole 40 MG Capsule Delayed Release 1 capsule 30 minutes before morning meal Orally Once a day Trelegy Ellipta(Siuacsgitbm-Iwniwlhyv-Wgttpr) 100-62.5-25 MCG/ACT Aerosol Powder Breath Activated 1 puff Inhalation QD , Notes to Pharmacist: Rinse after useVitamin D3 Maximum Strength(Cholecalciferol) 125 MCG (5000 UT) Capsule Oral Medication List reviewed and reconciled with the patientTaking Albuterol Sulfate HFA 108 (90 Base) MCG/ACT Aerosol Solution 2 puffs as needed for SOB Inhalation Q4H Taking Atorvastatin Calcium 40 MG Tablet 1 tablet Orally Once a day Taking Calcium 500 MG Tablet 1 tablet with meals Orally daily Taking Carvedilol 25 MG Tablet Oral Taking Coreg(Carvedilol) 25 MG Tablet 1 tablet with food Orally Twice a day Taking EQ Vegetable Laxative(Sennosides) 8.6 MG Tablet Oral Taking Fish Oil 1200 MG Capsule 1 capsule Orally Once a day Taking Levemir FlexTouch 100 UNIT/ML Solution Pen-injector as directed Subcutaneous Taking Losartan Potassium-HCTZ 100-25 MG Tablet 1 tablet Orally Once a day Taking Meloxicam 15 MG Tablet TAKE 1 TABLET BY MOUTH ONCE DAILY NEEDED FOR PAIN Taking metFORMIN HCl 850 MG Tablet 1 tablet with a meal Orally Once a day Taking Omeprazole 40 MG Capsule Delayed Release 1 capsule 30 minutes before morning meal Orally Once a day Taking Trelegy Ellipta(Iizwrsjlgzu-Ktqxzeabf-Qswrlx) 100-62.5-25 MCG/ACT Aerosol Powder Breath Activated 1 puff Inhalation QD , Notes to Pharmacist: Rinse after useTaking Vitamin D3 Maximum Strength(Cholecalciferol) 125 MCG (5000 UT) Capsule Oral Medication List reviewed and reconciled with the patient * Allergies: N .K.D.A.no[Allergies Verified] Objective: * Vitals: W t:238.6lbs, Ht: 67 in, BP:sittin/89mm Hg, Temp:Forehead:97.1F, HR:60/min, RR:18/min, BMI:37.37Index, Oxygen sat %:Room Air:97%, Peak Flow:430I/min, Ht-cm: 170.18 cm, Wt-k.23 kg. * Examination: E xam: GENERAL APPEARANCE: A ppears stated age. Skin N ormal. Mouth P ink and moist. No candidiasis. Oropharynx/Tongue M allampati Class IV. M acroglossia.?Tongue - Ridging. Trachea M idline. Chest N ormal. Respiratory Normal M ovements, E ffort N ormal. Auscultation M ore diminished than usual, but no wheezes.? Cardiac B radycardic with a regular r hythm. Gastrointestinal I ncreased central adiposity. Vascular N o edema. Musculoskeletal N ormal posture. Neurological F ocal, intact. Psychiatric A lert and oriented x3. Mentation/Cognition N ormal. Assessment: * Assessment: 1. S evere persistent asthma, uncomplicated - J45.50 (Primary) N otes :Prior inhalers: Trelegy 200 > Symbicort 160 > Flovent 2 . P eripheral eosinophilia - D72.19 3 . D iabetes mellitus type 2, uncomplicated - E11.9 4 . L astrid term (current) use of inhaled steroids - Z79.51 5 . O besity, unspecified - E66.9 Plan: * Treatment: 2. D iabetes mellitus type 2, uncomplicated Notes: Steroids prescribed for this patient's underlying pulmonary disease can adversely affect blood glucose levels, inducing hyperglycemia and worsening underlying diabetes. The patient is encouraged to follow up with the primary care provider to create a plan to manage diabetes in this situation. ? 3. L astrid term (current) use of inhaled steroids Notes: Patient was counseled to rinse & gargle with water after inhaled corticosteroid use. 4. O besity, unspecified Notes: He has gained some weight since last visit (235 on 03/26/2023 to 249 today). Weight loss indicated: Decrease calories, increase activity. * Procedures: P FT Interpretation: FEV1/FVC: P FT 12/01/2020:-FEV1/FVC: 57%-FEV1: 38%-FVC: 53%-Bronchodilator response: Positive- RV: 195%-T%-DLCO: 111%-Flow-volume loop: Severe obstruction?. * Procedure Codes: * Preventive Medicine: COVID Vaccination: H as patient had COVID Vaccination? COVID Vaccination Y es 10/10/2020 Immunization Status: P neumovacc C apvaxive Pneumococcal 21-05/28/2024.? I nfluenza 0 05/28/2024. Z ostivax 1 . B oostrix 1 . Screenings/Counseling: F ALL RISK SCREENING Fall Risk Assessment: N o falls in the past year Are you afraid of falling? N o T OBACCO ACTION PLAN Patient counselled on the dangers of tobacco use and urged to quit. 0 08/04/2024 Former Education on smoking effects provided?08/04/2024 Former B [place] ACTION PLAN Above Normal BMI Follow-up D ietary management education, guidance, and counseling * Follow Up: 1 Year (Reason: Asthma) * * Sign off status: Completed Visit Status: C HK (Check Out) true * Provider: Shani Durbin DO Date: 0 08/04/2024 Generated for Kassidy rain/Emma/Tawannaitting on: 0 12/31/2024 06:49 AM EDT History and Physical Notes * HPI (History of Present Illness) Category Sub-Category Detail Notes Category Not es General Patient present s for a follow-up for Asthma. Patient complains of SOB with exertion. Patient is using Trelegy daily with benefit. Patient states he is unable to afford the Trelegy and was given two samples from his PCP. Patient states he has problems on and off with insurance covering Trelegy. Patient reports rare albuterol use. Patient denies tobacco use. Examination Category Sub-Category Detail Notes Category Not es Exam GENERAL APPEARANCE: Appears stated age Skin Normal Mouth [place] and moist. No c andidiasis Trachea Midline Chest Normal Respiratory Normal Movements, Ef fort Normal Auscultation More diminished than usual, but no wheezes Percussion Egophony Bronchophony Fremitus Whispered pectoriloquy Cardiac Bradycardic with a r egular rhythm Gastrointestinal Increased central ad iposity Vascular No edema Musculoskeletal Normal posture Neurological Focal, intact Psychiatric Alert and oriented x 3 Mentation/Cognition Normal Oropharynx/Tongue Mallampati Class IV. Macroglossia. Tongue - Ridging
--- OUTSIDE RECORDS SUMMARY | 2024-10-14 11:30 | XMS_ITS ---
Author Organization The [facility] in [place] Address [address] [place] [address] Care Team Providers Care Aircraft Pilot Name Role Phone Luci Rios CNP Primary Care Provider Bharath Mireles [phone] REASON FOR VISIT 6 month f/u Encounters Encounter Location Date Provider Diagnosis [facility] (PODIATRY) [address] [place] [address] [place] [address] 10/14/2024 Bharath Perez Plan Of Treatment Next Appt Details Provider Name:Lane Durbin, 08/03/2025 04:30:00 PM, [address] [place], [address], Progress Notes * CHRISTIAN AMAYAANTES DanteDOB: (59 yo M)Acc No.[id number]:10/14/2024 UNLOCKED PROGRESS NOTE Follow Up Patient: Dante GRAY Provider: Kishore Perez DPM, MS :1965 A ge:59 Y S ex:Male Date:10/14/2024 Address[place] Pcp:Luci Rios CNP Subjective: * Chief Complaints: * 1 . 6 month f/u. * Medical History: Objective: * Vitals: Assessment: Plan: * Treatment: * * Electronic signature of Thang Perez DPM on 12/31/2024 at 05:03 PM EDT Sign off status: Pending Visit Status: C ANC (Cancelled) * Provider: Kishore Perez DPM, MS Date: 0 10/14/2024 Generated for Kassidy Young/Sameer on: 0 12/31/2024 05:03 PM EDT
--- OUTSIDE RECORDS SUMMARY | 2024-11-03 12:30 | XMS_ITS ---
Author Organization [facility] [place] Address [address] [place] [address] Care Team Providers Care Food Processing Scientist Name Role Phone Luci Rios CNP Primary Care Provider Unavail Lane Powell Unavailable [phone] REASON FOR VISIT 1y F/U - Asthma Encounters Encounter Location Date Provider Diagnosis Pulmonary Medicine [place] [address] [place] [address] 11/03/2024 Lane Durbin Plan Of Treatment Next Appt Details Provider Name:Lane Durbin, 08/03/2025 04:30:00 PM, [address] [place], [address], Progress Notes * GODINEZDante CASTDOB: (59 yo M)Acc No.[id number]:11/03/2024 UNLOCKED PROGRESS NOTE Follow Up Patient: Hai GARCIA Dante Provider: Shani Durbin DO :1965 A ge:59 Y S ex:Male Date:11/03/2024 Address:[address] [place], [place] Pcp:Luci Rios CNP Subjective: * Chief Complaints: * 1 . 1y F/U - Asthma. * Medical History: Objective: * Vitals: Assessment: Plan: * Treatment: * * Electronic signature of Anay Durbin DO on 12/31/2024 at 06:49 AM EDT Sign off status: Pending Visit Status: R /S (Rescheduled) * Provider: Shani Durbin DO Date: 0 11/03/2024 Generated for Kassidy rain/Emma/Sameer on: 0 12/31/2024 06:49 AM EDT
--- NOTE | 2024-12-31 | XR_ITS ---
The [place] [address] Patient Name: LAVERN GARCIA MRN: [id number] date: 1965 Sex: M Assigned Patient Location: RAD Current Patient Location: [facility] Accession/Order Number: [id number] Exam Date: 12/31/2024 21:47 Report Date: 12/31/2024 21:51 At the request of: DEANN GILBERT NP Procedure: XR ankle RT min 3V RIGHT ANKLE - 3 views CLINICAL HISTORY: chronic pain of right ankle M25.571 COMPARISON: 11/30/2024 FINDINGS: Postsurgical changes status post tibial/talar screws calcaneal fusion with talar cage hardware. Hardware appears intact without loosening or fracture. There is bony fragmentation and joint effusion identified anterior aspect of the talar hardware XR/XR ankle RT min 3V IMPRESSION: Stable postsurgical changes. Impression dictated by: Alvin Pan M.D. 12/31/2024 9:51 PM Dictation Location: [place] [address] Electronically authenticated by: [id number] Y Date: 12/31/2024 21:51
--- OUTSIDE RECORDS SUMMARY | 2024-12-31 15:40 | XMS_ITS | Encounter Summary ---
Author Organization [facility] Address [address] [place] [address] Care Team Providers Care [address] Light Cleaner Name Role Phone Antwan Perez MD Primary Care Provider [phone] Georgina Velasquez CIRCULAR RIPSAW OPERATOR Unavailable [phone] Reason for Visit * Reason Comments Diabetes Encounter Details Date Type Department Care Team (Late st Contact Info) Description 12/31/2024 3:40 PM EDT [facility] [address] [place] [address] Luci Rios NP [address] [place] [address] Type 2 diabetes mellitus with diabetic polyneuropathy, with long-term current use of insulin (HCC) (Primary Dx); Primary hypertension ; Type 2 diabetes mellitus without complication, with long-term current use of insulin (HCC); Morbid (severe) obesity due to excess calories ([facility]); Severe persistent asthma without complication (HCC); Edema of both lower extremities; Chronic pain of right ankle Social History Tobacco Use Types Packs/Day Years [...] often do you attend chur ch or advent services? More than 4 times per year 01/21/2024 Do you belong to any clubs o r organizations such as religion groups, unions, fraternal or athletic groups, or [...] Recorded Patient Health Questionnaire-2 Score 0 01/22/2024 [facility] Questionnaire Answer Date [...] were you homeless or living in a alf (including now)? No 01/21/2024 Sex and Gender Information Value Date Recorded Sex Assigned at Not on file Legal Sex Male 11:39 PM EDT Gender Identity Not on file Sexual Orientation Not on file documented as of this encounter Last Filed Vital Signs Vital Sign Reading Time Taken Comments Blood Pressure 132/78 12/31/2024 3:54 PM EDT Pulse 56 12/31/2024 3:54 PM EDT Temperature 36.6 C (97.8 F) 12/31/2024 3:54 PM EDT Respiratory Rate 20 12/31/2024 3:54 PM EDT Oxygen Saturation 96% 12/31/2024 3:54 PM EDT Inhaled Oxygen Concentration - - Weight 113 kg (249 lb 12.8 oz) 12/31/2024 3:54 P M EDT Height - - Body Mass Index 40.32 08/24/2024 3:27 PM EDT documented in this encounter Patient Instructions * Patient Instructions* Luci Rios NP - 12/31/2024 3:40 PM EDT Try diclofenac twice a day with food for swelling and pain Get labs check in about 10 days or so documented in this encounter Progress Notes * Luci Rios NP - 12/31/2024 6:52 AM EDTAssociated Problem(s): Edema of both lower extremities Current meds: aldactone, hydrochlorothiazide in losartan * Luci Rios NP - 12/31/2024 6:52 AM EDTAssociated Problem(s): Severe persistent asthma without complication (HCC) In the past has used trelegy 200, symbicort 160, and flovent, has seen pulmonary in the past Finds benefit with trelegy 100's Current meds: trelegy, albuterol * Luci Rios NP - 12/31/2024 6:51 AM EDTAssociated Problem(s): Morbid (severe) obesity due to excess calories ([facility]) Discussed with patient their BMI (actual, verses recommended). We have also discussed lifestyle modifications: attempts to perform physical activity as chronic conditions allow, also to monitor dietary intake: increasing protein/fruits/veggies and lowering carb intake (unless contraindicated). Limit sodas, juices, and sugary drinks. * Luci Rios NP - 12/31/2024 6:51 AM EDTAssociated Problem(s): Type 2 diabetes mellitus [...] 8.3% 07/18/24 * Luci Rios NP - 12/31/2024 6:50 AM EDTAssociated Problem(s): Primary hypertension Please check blood pressure daily and record DASH diet Limit caffeine Take medication as directed Contact office if chest pain, pressure, dizziness, shortness of breath, swelling legs Recommend slow position changes Current meds: amlodipine, carvedilol, losartan/hydrochlorothiazide, aldactone * Luci Rios NP - 12/31/2024 6:50 AM EDTAssociated Problem(s): Type 2 diabetes mellitus with diabetic polyneuropathy, with long-term current use of insulin (HCC) No current treatment Recommend proper fitting toes, freq foot inspections, good glycemic control documented in this encounter Plan of Treatment Upcoming Encounters Date Type Department Care Team (Late st Contact Info) Description 02/11/2025 3:00 PM EDT Office Visit [facility] [address] [place] [address] Luci Rios NP [address] [place] [address] 02/23/2025 3:15 PM EDT Procedure Visit [facility] [address] [place] [address] Abisai Boateng DPM [address] [place], [place] [address] Scheduled Orders Name Type Priority Associated Diagnoses Orde r Schedule Basic metabolic panel Lab Routine Primary hypertension Type 2 diabetes mellitus without complication, with long-term current use of insulin (HCC) Edema of both lower extremities Expected: 12/31/2024 (Approximate), Expires: 12/31/2025 XR ankle 3+ views right Imaging Routine Chronic pain of right ankle Expected: 12/31/2024, Expires: 12/31/2025 documented as of this encounter Visit Diagnoses Diagnosis Type 2 diabetes mellitus with diabetic polyneuropathy, with long-term current use of insulin (HCC)- Primary Primary hypertension Unspecified essential hypertension Type 2 diabetes mellitus without complication, with long-term current use of insulin (HCC) Morbid (severe) obesity due to excess calories ([facility]) Severe persistent asthma without complication ([facility]) Edema of both lower extremities Chronic pain of right ankle documented in this encounter Care Teams Street Light Cleaner Relationship Specialty Start Date End Date Antwan Perez MD [address] [place] [address] PCP - General Family Medicine 12/30/23 Georgina Velasquez NP [address] [place] [address] Nurse Practitioner Family Medicine 12/30/23 documented as of this encounter
--- OUTSIDE RECORDS SUMMARY | 2024-12-31 17:01 | XMS_ITS | Encounter Summary ---
Author Organization [facility] Address [address] [place] [address] Care Team Providers Care Javascript Engineer Name Role Phone Antwan Perez MD Primary Care Provider [phone] Georgina Velasquez WAREHOUSE ADMINISTRATIVE ASSISTANT Unavailable [phone] Encounter Details Date Type Department Care Team (Late st Contact Info) Description 11/23/2024 Abstract [facility] [address] [place] [address] Luci Rios NP [address] [place] [address] Social History Tobacco Use Types Packs/Day Years [...] Never 01/21/2024 How often do you attend [facility] or latter day services? More than 4 times per year 01/21/2024 Do you belong to any clubs o r organizations such as jewish groups, unions, fraternal or athletic groups, or [...] Recorded Patient Health Questionnaire-2 Score 0 01/22/2024 [facility] - Occupational Stress Questionnaire Answer [...] any time in the past 12 m [facility], were you homeless or living in a penitentiary (including now)? No 01/21/2024 Sex and Gender Information Value Date Recorded Sex Assigned at Not on file Legal Sex Male 11:39 PM EDT Gender Identity Not on file Sexual Orientation Not on file documented as of this encounter Plan of Treatment Upcoming Encounters Date Type Department Care Team (Late st Contact Info) Description 02/11/2025 3:00 PM EDT Office Visit [facility] [address] [place] [address] Luci Rios NP [address] [place] [address] 02/23/2025 3:15 PM EDT Procedure Visit [facility] [address] [place] [address] Abisai Boateng DPEv [address] [place] [address] documented as of this encounter Visit Diagnoses Not on filedocumented in this encounter Care Teams Javascript Engineer Relationship Specialty Start Date End Date Antwan Perez MD [address] [place] [address] PCP - General Family Medicine 12/30/23 Georgina Velasquez NP [address] [place] [address] Nurse Practitioner Family Medicine 12/30/23 documented as of this encounter
--- OUTSIDE RECORDS SUMMARY | 2024-12-31 17:01 | XMS_ITS | Encounter Summary ---
Author Organization [facility] Address [address] [place] [address] Care Team Providers Care Chinese Medicine Practitioner Name Role Phone Antwan Perez MD Primary Care Provider [phone] Georgina Velasquez NP Unavailable [phone] Shaikh ALONSO Baker Unavailable [phone] Encounter Details Date Type Department Care [...] often do you attend chur ch or buddhist services? More than 4 times per year 01/21/2024 Do you belong to any clubs o r organizations such as judaism groups, unions, fraternal or athletic groups, or [...] Recorded Patient Health Questionnaire-2 Score 0 10/24/2023 [facility] - Occupational Stress Questionnaire Answer [...] 3:00 PM EDT Office Visit [facility] [address] [place] [address] Luci Rios NP [address] [place] [address] 02/23/2025 3:15 PM EDT Procedure Visit [facility] [address] [place] [address] Abisai Boateng, DPM [address] [place], [place] [address] documented as of this encounter Procedures Procedure Name Priority Date/Time Associated Diagnosis Comments XR ANKLE RT MIN 3V 01/17/2024 6: 46 AM EDT documented in this encounter Results * XR ANKLE RT MIN 3V (01/17/2024 6:46 AM EDT) Anatomical Region Laterality Modality Other 01/17/2024 6:46 AM EDT Narrative 01/17/2024 6:49 AM EDT The [place] [id number] XRay Report Signed Patient: LAVERN ESCOBEDO MR#: [id number] : 1965 Acct:[id number] Age/Sex: 58 / M ADM Date: 01/16/24 Loc: EC Attending Dr: Lizeth Martin Ordering Physician: Lizeth Martin Date of Service: 01/16/24 Procedure(s): XR ankle RT min 3V Accession Number(s): [id number] cc: Shaikh Heather Baker; Lizeth Martin [place] [id number] Patient Name: LAVERN GARCIA MRN: [id number] date: 1965 Sex: M Assigned Patient Location: Current Patient Location: Accession/Order Number: [id number] Exam Date: 01/16/2024 14:55 Report Date: 01/17/2024 [...] Fitzgerald M.D. Signed By: 01/17/2449 DD/ TD/TT: Stain Applicator: Procedure Note Radiology, Radiologist, MD - 01/17/2024 [place] [address] XRay Report Signed Patient: LAVERN ESCOBEDOMR#: [id number] : 1965Acct:[id number] Age/Sex: 58 / MADM Date: 01/16/24 Loc: Attending Dr: Lizeth Martin Ordering Physician: Lizeth Martin Date of Service: 01/16/24 Procedure(s): XR ankle RT min 3V Accession Number(s): [id number] cc: Shaikh Heather Baker; Lizeth Martin The [address] [address] Patient Name: LAVERN GARCIA MRN: [id number] date: 1965 Sex: M Assigned Patient Location: Current Patient Location: Accession/Order Number: [id number] Exam Date: 01/16/2024 14:55 Report Date: 01/17/2024 [...] Robert Fitzgerald M.D. Signed By:01/17/2449 DD/ TD/TT: Stain Applicator: Generic External Data Provider [facility] Final Result documented in this encounter Visit Diagnoses Not on filedocumented in this encounter Care Teams Chinese Medicine Practitioner Relationship Specialty Start Date End Date Antwan Perez MD [address] [place] [address] PCP - General Family Medicine 12/30/23 Shaikh Baker MD [address] [place] [address] PCP - [place] [employer] 02/25/24 Georgina Velasquez NP [address] [place] [address] Nurse Practitioner Family Medicine 12/30/23 documented as of this encounter
--- OUTSIDE RECORDS SUMMARY | 2024-12-31 17:01 | XMS_ITS | Encounter Summary ---
Author Organization [facility] Address [address] [place] [address] Care Team Providers Care Pomology Teacher Name Role Phone Shaikh ALONSO Baker Primary Care Provider [phone] Antwan Perez MD Primary Care Provider [phone] Georgina Velasquez NP Unavailable [phone] Shaikh ALONSO Baker Unavailable [phone] Encounter Details Date Type Department Care [...] -2 Score 0 10/24/2023 3:08 PM EDT Mike Godineznikolas Ev Castañeda documented as of this encounter Plan of Treatment Upcoming Encounters Date Type Department Care Team (Late st Contact Info) Description 02/11/2025 3:00 PM EDT Office Visit [facility] [address] [place] [address] Luci Rios NP [address] [facility] [place] [address] 02/23/2025 3:15 PM EDT Procedure Visit [facility] [address] [place] [address] Abisai Boateng DPM [address] [place], [place] [address] documented as of this encounter Procedures Procedure Name Priority Date/Time Associated Diagnosis Comments XR ANKLE RT MIN 3V 10/23/2023 7: 35 AM EDT documented in this encounter Results * XR ANKLE RT MIN 3V (10/23/2023 7:35 AM EDT) Anatomical Region Laterality Modality Other 10/23/2023 7:35 AM EDT Narrative 10/23/2023 7:38 AM EDT The [address] [address] XRay Report Signed Patient: LAVERN ESCOBEDO MR#: [id number] : 1965 Acct:[id number] Age/Sex: 58 / M ADM Date: 10/22/23 Loc: EC Attending Dr: Rey Perez D.P.M. Ordering Physician: Rey Perez D.P.M. Date of Service: 10/22/23 Procedure(s): XR ankle RT min 3V Accession Number(s): [id number] cc: Shaikh Heather Baker; Rey Perez D.P.M. The [address] [address] Patient Name: LAVERN GARCIA MRN: [id number] date: 1965 Sex: M Assigned Patient Location: Current Patient Location: Accession/Order Number: [id number] Exam Date: 10/22/2023 15:17 Report Date: 10/23/2023 [...] Signed By: 10/23/23 0738 DD/ 0735 TD/TT: Thread Roller: Procedure Note Radiology, Radiologist, - 10/23/2023 [place] [address] XRay Report Signed Patient: LAVERN ESCOBEDOMR#: [id number] : 1965Acct:[id number] Age/Sex: 58 / MADM Date: 10/22/23 Loc: EC Attending Dr: Rey Perez D.P.M. Ordering Physician: Rey Perez D.P.M. Date of Service: 10/22/23 Procedure(s): XR ankle RT min 3V Accession Number(s): [id number] cc: Shaikh Heather Baker; Rey Perez D.P.M. The [address] [address] Patient Name: LAVERN GARCIA MRN: [id number] date: 1965 Sex: M Assigned Patient Location: Current Patient Location: Accession/Order Number: [id number] Exam Date: 10/22/2023 15:17 Report Date: 10/23/2023 [...] Gera Blum M.D. Signed By:10/23/2338 DD/ TD/TT: Thread Roller: Generic External Data Provider [facility] Final Result documented in this encounter Visit Diagnoses Not on filedocumented in this encounter Care Teams Pomology Teacher Relationship Specialty Start Date End Date Shaikh Baker MD [address] [place] [address] PCP - General Internal Medicine 06/25/23 12/29/23 Antwan Perez MD [address] [place] [address] PCP - General Family Medicine 12/30/23 Shaikh Baker MD [address] [place] [address] PCP - [facility] 02/25/24 Georgina Velasquez NP [address] [place] [address] Nurse Practitioner Family Medicine 12/30/23 documented as of this encounter
--- OUTSIDE RECORDS SUMMARY | 2024-12-31 17:01 | XMS_ITS | Encounter Summary ---
Author Organization [facility] Address [address] [place] [address] Care Team Providers Care Beef Cattle Grazier Name Role Phone Antwan Perez MD Primary Care Provider [phone] Georgina Velasquez RABBLER Unavailable [phone] Encounter Details Date Type Department Care Team (Late st Contact Info) Description 11/23/2024 Abstract [facility] [address] [place] [address] Luci Rios NP [address] [place] [address] Social History Tobacco Use Types Packs/Day Years [...] Never 01/21/2024 How often do you attend [facility] or gnosticist services? More than 4 times per year 01/21/2024 Do you belong to any clubs o r organizations such as spiritism groups, unions, fraternal or athletic groups, or [...] [facility] - Occupational Stress Questionnaire Answer Date Recorded [...] any time in the past 12 m [facility], were you homeless or living in a halfway (including now)? No 01/21/2024 Sex and Gender [...] Visit [facility] [address] [place] [address] Luci Rios NP [address] [place] [address] 02/23/2025 3:15 PM EDT Procedure Visit [facility] [address] [place] [address] Abisai Boateng DPEv [address] [place] [address] documented as of this encounter Visit Diagnoses Not on filedocumented in this encounter Care Teams Beef Cattle Grazier Relationship Specialty Start Date End Date Antwan Perez MD [address] [place] [address] PCP - General Family Medicine 12/30/23 Georgina Velasquez NP [address] [place] [address] Nurse Practitioner Family Medicine 12/30/23 documented as of this encounter
--- OUTSIDE RECORDS SUMMARY | 2024-12-31 17:01 | XMS_ITS | Encounter Summary ---
Author Organization [facility] Address [address] [place] [address] Care Team Providers Care Neurosurgical Nurse Name Role Phone Antwan Perez MD Primary Care Provider [phone] Georgina Velasquez FINANCIAL AID COUNSELOR Unavailable [phone] Encounter Details Date Type Department Care Team (Late st Contact Info) Description 11/23/2024 Abstract [facility] [address] [place] [address] Luci Rios NP [address] [place] [address] Social History Tobacco Use Types Packs/Day Years [...] Never 01/21/2024 How often do you attend [facility] or pentecostalism services? More than 4 times per year 01/21/2024 Do you belong to any clubs o r organizations such as bahai groups, unions, fraternal or athletic groups, or [...] Recorded Patient Health Questionnaire-2 Score 0 01/22/2024 [facility] - Occupational Stress Questionnaire Answer [...] any time in the past 12 m [facility], were you homeless or living in a detention (including now)? No 01/21/2024 Sex and Gender [...] Visit [facility] [address] [place] [address] Luci Rios NP [address] [place] [address] 02/23/2025 3:15 PM EDT Procedure Visit [facility] [address] [place] [address] Abisai Boateng DPEv [address] [place] [address] documented as of this encounter Visit Diagnoses Not on filedocumented in this encounter Care Teams Neurosurgical Nurse Relationship Specialty Start Date End Date Antwan Perez MD [address] [place] [address] PCP - General Family Medicine 12/30/23 Georgina Velasquez NP [address] [place] [address] Nurse Practitioner Family Medicine 12/30/23 documented as of this encounter
--- OUTSIDE RECORDS SUMMARY | 2024-12-31 17:01 | XMS_ITS | Patient Health Record ---
Author Organization [facility] [place] Address [address] [place] [address] Care Team Providers Care National Sales Manager Name Role Phone Luci Rios CNP Primary Care Provider Unavail able Rey Perez Unavailable [phone] Lizeth Martin Unavailable [phone] [address] Durbin Unavailable [phone] Allergies No Known Allergies Results Component Value Reference Range Notes XR ankle RT min 3V (Not yet reviewed by provider) Interpretation: Performing Lab: Notes/Report: Source Facility: [place] [address] XRay Report Signed Patient: LAVERN ESCOBEDO MR#: [id number] : 1965 Acct:[id number] Age/Sex: 59 / M ADM Date: 04/15/24 Loc: RAD Attending Dr: Rey Perez D.P.M. Ordering Physician: Rey Perez D.P.M. Date of Service: 04/15/24 Procedure(s): XR ankle RT min 3V Accession Number(s): [id number] cc: Shaikh Heather Baker; Rey Perez D.P.M. [place] [address] Patient Name: LAVERN GARCIA MRN: [id number] date: 1965 Sex: M Assigned Patient Location: RAD Current Patient Location: RAD Accession/Order Number: [id number] Exam Date: 04/15/2024 15:10 Report Date: 04/17/2024 [...] M.D. Signed By: 04/17/241516 DD/ 13 TD/TT: Wash House Worker: [place] [address] XRay Report Signed Patient: LAVERN HARKINS MR#: [id number] : 1965 Acct:[id number] Age/Sex: 59 / M ADM Date: 04/15/24 Loc: [facility] Attending Dr: Rey Perez D.P.M. Ordering Physician: Rey Perez D.P.M. Date of Service: 04/15/24 Procedure(s): XR ank le RT min 3V Accession Number(s): [id number] cc: Shaikh Mala Baker; Rey Perez D.P.M. The [place] [address] Patient Name: LAVERN GARCIA MRN: [id number] date: 1965 Sex: M Assigned Patient Location: RAD Current Patient Location: RAD Accession/Order Numb er: [id number] Exam Date: 15:10 Report Date: 04/17/2024 15:14 [...] M.D. Signed By: 04/17/241516 DD/ 13 TD/TT: Wash House Worker: XR ankle RT min 3V (Not yet reviewed by provider) Interpretation: Performing Lab: Notes/Report: Source Facility: [place] [address] XRay Report Signed Patient: LAVERN ESCOBEDO MR#: [id number] : 1965 Acct:[id number] Age/Sex: 58 / M ADM Date: 01/16/24 Loc: Attending Dr: Lizeth Martin Ordering Physician: Lizeth Martin Date of Service: 01/16/24 Procedure(s): XR ankle RT min 3V Accession Number(s): [id number] cc: Shaikh Heather Baker; Lizeth Martin [place] [address] Patient Name: LAVERN GARCIA MRN: [id number] date: 1965 Sex: M Assigned Patient Location: Current Patient Location: Accession/Order Number: [id number] Exam Date: 01/16/2024 14:55 Report Date: 01/17/2024 [...] M.D. Signed By: 01/17/2449 DD/ 5 TD/TT: Wash House Worker: [place] [address] XRay Report Signed Patient: LAVERN HARKINS MR#: [id number] : 1965 Acct:[id number] Age/Sex: 58 / M ADM Date: 01/16/24 Loc: EC Attending Dr: Lizeth Martin Ordering Physician: Lizeth Martin Date of Service: 01/16/24 Procedure(s): XR ank le RT min 3V Accession Number(s): [id number] cc: Shaikh Mala Baker; Lizeth Martin [place] [address] Patient Name: LAVERN GARCIA MRN: [id number] date: 1965 Sex: M Assigned Patient Location: Current Patient Location: Accession/Order Numb er: [id number] Exam Date: 01/16/2024 14:55 Report Date: 01/17/2024 [...] M.D. Signed By: 01/17/2449 DD/ 5 TD/TT: Wash House Worker: Reason For Referral No Information Medications Medication [...] 5mL pre-filled syringe Unknown 05/28/2024 Administered Flu, (90831) -historic- Whole Unknown 05/28/2024 Admini stered Flu, [...] Problem Status W/U Status Risk Notes Problem 630350729 Obesity, unspecified (E66.9) Active confirmed Problem Uncomplicated severe persistent asthma (123095494) Severe persistent asthma, uncomplicated (J45.50) Active confirmed Prior inhalers: Trelegy 200 > Symbicort 160 > Flovent Problem 433466604156083 Primary osteoarthritis, right ankle and foot (M19.071) Active confirmed Problem 229459173 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 Problem 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 Problem 275717673 detention (current) use of inhaled steroids (Z79.51) Active confirmed Problem 900239105 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) Active confirmed Problem Hypertension (44701598) Hypertension (I10) Active confirmed Problem Asthma (737046608) Asthma (J45.909) Active conf irmed Problem Gastroesophageal reflux disease (604351181) GERD (gastroesophagea l reflux disease) (K21.9) Active confirmed Problem Arthralgia of the ankle and/or foot (166648951) Right ankle pain (M25.571) Active confirmed Problem Acquired equinus deformity of right foot (M21.6X1) Active confirmed Problem Diabetes mellitus type 2 (08967056) Diabetes mellitus type 2, uncomplicated (E11.9) Active confirmed Problem Localized, primary osteoarthritis of the ankle and/or foot (178131052) Osteoarthritis of right ankle (M19.071) Active confirmed Problem Diabetic autonomic neuropathy due to type 2 diabetes mellitus (035627055) Type 2 diabetes mellitus with peripheral neuropathy (E11.43) Active confirmed Problem Avascular necrosis of bone (491750526) Avascular necrosis of bone (M87.00) Active confirmed Problem 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) Active confirmed Problem Diabetes mellitus (13924080) Diabetes mellitus (E11.9) Active confirmed Problem 048209587 Body mass index [BMI] 39.0-39.9, adult (Z68.39) [...] 08/04/2024 Encounters Encounter Location Date Provider Diagnosis [address] [address] 08/04/2024 [address] Durbin Severe persistent asthma, uncomplicated J45.50 ; Peripheral eosinophilia D72.19 ; Diabetes mellitus type 2, uncomplicated E11.9 ; detention (current) use of inhaled steroids Z79.51 and Obesity, unspecified E66.9 [facility] (PODIATRY) [address] [place] [address] [place] [address] 01/16/2024 Lizeth Martin Osteoarthritis of right ankle M19.071 and Idiopathic aseptic necrosis of right ankle M87.071 [facility] (PODI[facility]) [address] [place] [address] [place] [address] 04/15/2024 Lizeth Martin Right ankle pain M25.571 ; Primary osteoarthritis, right ankle and foot M19.071 and Idiopathic aseptic necrosis of right foot M87.074 [facility] [place] [address] [place] [address] 08/03/2024 Lane Durbin Assessments Encounter Date Diagnosis (ICD Code) Assessment [...] to manage diabetes in this situation. 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
--- OUTSIDE RECORDS SUMMARY | 2024-12-31 17:01 | XMS_ITS | Encounter Summary ---
Author Organization [facility] Address [address] [place] [address] Care Team Providers Care Medical Recruiter Name Role Phone Antwan Perez MD Primary Care Provider [phone] Georgina Velasquez NP Unavailable [phone] Shaikh ALONSO Baker Unavailable [phone] Encounter Details Date Type Department Care [...] often do you attend chur ch or episcopal services? More than 4 times per year 01/21/2024 Do you belong to any clubs o r organizations such as jehovah's witness groups, unions, fraternal or athletic groups, or [...] Recorded Patient Health Questionnaire-2 Score 0 01/22/2024 [facility] - Occupational Stress Questionnaire Answer Date [...] time in the past 12 m [facility], were you homeless or living in [...] [facility] [address] [place] [address] Luci Rios NP [address] [facility] [address] 02/23/2025 3:15 PM EDT Procedure Visit [facility] [address] [place] [address] Abisai Boateng, DPM [address] [place], [place] [address] documented as of this encounter Procedures Procedure Name Priority Date/Time Associated Diagnosis Comments XR ANKLE RT MIN 3V 04/17/2024 3: 14 PM EST documented in this encounter Results * XR ANKLE RT MIN 3V (04/17/2024 3:14 PM EST) Anatomical Region Laterality Modality Other 04/17/2024 3:14 PM EST Narrative 04/17/2024 3:17 PM EST The [address] [address] XRay Report Signed Patient: LAVERN ESCOBEDO MR#: [id number] : 1965 Acct:[id number] Age/Sex: 59 / M ADM Date: 04/15/24 Loc: RAD Attending Dr: Rey Perez D.P.M. Ordering Physician: Rey Perez D.P.M. Date of Service: 04/15/24 Procedure(s): XR ankle RT min 3V Accession Number(s): [id number] cc: Shaikh Heather Baker; Rey Perez D.P.M. The [place] [address] Patient Name: LAVERN GARCIA MRN: [id number] date: 1965 Sex: M Assigned Patient Location: RAD Current Patient Location: RAD Accession/Order Number: [id number] Exam Date: 04/15/2024 15:10 Report Date: 04/17/2024 [...] Signed By: 04/17/24 1517 DD/ 13 TD/TT: [employer]: Procedure Note Radiology, Radiologist, MD - 04/17/2024 [place] [address] XRay Report Signed Patient: LAVERN ESCOBEDOMR#: [id number] : 1965Acct:[id number] Age/Sex: 59 / MADM Date: 04/15/24 Loc: RAD Attending Dr: Rey Perez D.P.M. Ordering Physician: Rey Perez D.P.M. Date of Service: 04/15/24 Procedure(s): XR ankle RT min 3V Accession Number(s): [id number] cc: Shaikh Haether Baker; Rey Perez D.P.M. [place] [address] Patient Name: LAVERN GARCIA MRN: [id number] date: 1965 Sex: M Assigned Patient Location: RAD Current Patient Location: RAD Accession/Order Number: [id number] Exam Date: 04/15/2024 15:10 Report Date: 04/17/2024 [...] Robert Fitzgerald M.D. Signed By:04/17/24 1517 DD/ 13 TD/TT: [employer]: Generic External Data Provider [facility] Final Result documented in this encounter Visit Diagnoses Not on filedocumented in this encounter Care Teams Medical Recruiter Relationship Specialty Start Date End Date Antwan Perez MD [address] [place] [address] PCP - General Family Medicine 12/30/23 Shaikh Baker MD [address] [place] [address] PCP - [place] [employer] 02/25/24 Georgina Velasquez NP [address] [place] [address] Nurse Practitioner Family Medicine 12/30/23 documented as of this encounter
--- OUTSIDE RECORDS SUMMARY | 2024-12-31 17:02 | XMS_ITS | Clinical Summary ---
Author Organization [facility] Address [address] [facility] [place] [address] Care Team Providers Care Wet Roller Name Role Phone Unavailable Primary Care Provider Unavailabl e Social History Tobacco Use Types Packs/Day Years Used Date Smoking Tobacco: Never Assessed [place] Safety & Environment Answer Date Rec orded [...]
--- OUTSIDE RECORDS SUMMARY | 2024-12-31 17:02 | XMS_ITS | Encounter Summary ---
Author Organization [facility] Address [address] [place] [address] Care Team Providers Care Hydrochloric Acid Operator Name Role Phone Shaikh ALONSO Baker Primary Care Provider [phone] Shaikh ALONSO Baker Primary Care Provider Antwan Perez MD Primary Care Provider [phone] Georgina Velasquez NP Unavailable [phone] Shaikh ALONSO Baker Unavailable [phone] Encounter Details Date Type Department Care [...] Office Visit [facility] [address] [place] [address] Luci Rios NP [address] [place] [address] 02/23/2025 3:15 PM EDT Procedure Visit [facility] [address] [place] [phone] Abisai Boateng, DPEv [address] [place], [place] [address] documented as of this encounter Procedures Procedure Name Priority Date/Time Associated Diagnosis Comments XR ANKLE RT MIN 3V 06/06/2023 7: 20 AM EST documented in this encounter Results * XR ANKLE RT MIN 3V (06/06/2023 7:20 AM EST) Anatomical Region Laterality Modality Other 06/06/2023 7:20 AM EST Narrative 06/06/2023 7:22 AM EST [address] [address] XRay Report Signed Patient: LAVERN ESCOBEDO MR#: [id number] : 1965 Acct:[id number] Age/Sex: 58 / M ADM Date: 06/05/23 Loc: RAD Attending Dr: Rey Perez D.P.M. Ordering Physician: Rey Perez D.P.M. Date of Service: 06/05/23 Procedure(s): XR ankle RT min 3V Accession Number(s): [id number] cc: Shaikh Heather Baker; Rey Perez D.P.M. The [address] [id number] Patient Name: LAVERN GARCIA MRN: [id number] date: 1965 Sex: M Assigned Patient Location: [facility] Current Patient Location: Accession/Order Number: [id number] Exam Date: 06/05/2023 15:01 Report Date: 06/06/2023 [...] M.D. Signed By: 06/06/23721 DD/ 9 TD/TT: Cementer Machine Applicator: Procedure Note Radiology, Radiologist, MD - 07/31/2023 [place] [address] XRay Report Signed Patient: LAVERN ESCOBEDOMR#: [id number] : 1965Acct:[id number] Age/Sex: 58 / MADM Date: 06/05/23 Loc: RAD Attending Dr: Rey Perez D.P.M. Ordering Physician: Rey Perez D.P.M. Date of Service: 06/05/23 Procedure(s): XR ankle RT min 3V Accession Number(s): [id number] cc: Shaikh Heather Baker; Rey Perez D.P.M. The [place] [address] Patient Name: LAVERN GARCIA MRN: [id number] date: 1965 Sex: M Assigned Patient Location: [facility] Current Patient Location: Accession/Order Number: [id number] Exam Date: 06/05/2023 15:01 Report Date: 06/06/2023 [...] Blum M.D. Signed By:06/06/23721 DD/ 9 TD/TT: Cementer Machine Applicator: us Generic External Data Provider [facility] Final Result documented in this encounter Visit Diagnoses Not on filedocumented in this encounter Care Teams Hydrochloric Acid Operator Relationship Specialty Start Date End Date Shaikh Baker MD PCP - General Internal Medicine 12/05/22 06/24/23 Shaikh Baker MD [address] [place] [address] PCP - General Internal Medicine 06/25/23 12/29/23 Antwan Perez MD [address] [place] [address] PCP - General Family Medicine 12/30/23 Shaikh Baker MD [address] [place] [address] PCP - [place] [employer] 02/25/24 Georgina Velasquez NP [address] [place] [address] Nurse Practitioner Family Medicine 12/30/23 documented as of this encounter
--- OUTSIDE RECORDS SUMMARY | 2024-12-31 17:02 | XMS_ITS | Encounter Summary ---
Author Organization [facility] Address [address] [place] [address] Care Team Providers Care Save All Operator Name Role Phone Shaikh ALONSO Baker Primary Care Provider Shaikh ALONSO Baker Primary Care Provider Antwan Perez MD Primary Care Provider Georgina Velasquez NP Unavailable Shaikh ALONSO Baker Unavailable [phone] Encounter Details Date Type Department Care Team (Late st Contact Info) Description 06/05/2023 Orders Only [facility] [address] [place] [address] Bharath Perez Social History Tobacco Use Types [...] 02/11/2025 3:00 PM EDT Office Visit [facility] [address] [place] [address] Luci Rios [address] WORKER [address] [place] [address] 02/23/2025 3:15 PM EDT Procedure Visit [facility] [place] [facility] [address] [place] [address] Abisai Boateng DPM [address] [place] [id number] documented as of this encounter Procedures Procedure [...] on filedocumented in this encounter Care Teams Save All Operator Relationship Specialty Start Date End Date Shaikh Baker MD PCP - General Internal Medicine 12/05/22 06/24/23 Shaikh Baker MD [address] [place] [address] PCP - General Internal Medicine 06/25/23 12/29/23 Antwan Perez MD [address] [place] [address] PCP - General Family Medicine 12/30/23 Shaikh Baker MD [address] [place] [address] PCP - [facility] 02/25/24 Georgina Velasquez NP [address] [place] [address] Nurse Practitioner Family Medicine 12/30/23 documented as of this encounter
--- OUTSIDE RECORDS SUMMARY | 2024-12-31 17:03 | XMS_ITS | Encounter Summary ---
Author Organization [facility] Address [address] [place] [address] Care Team Providers Care Business Representative Name Role Phone Shaikh ALONSO Baker Primary Care Provider Antwan Perez MD Primary Care Provider [phone] Georgina Velasquez NP Unavailable Shaikh ALONSO Baker Unavailable [phone] Encounter Details Date Type Department Care Team [...] Visit [facility] [address] [place] [address] Luci Rios NP [address] [place] [address] 02/23/2025 3:15 PM EDT Procedure Visit [facility] [address] [place] [address] Abisai Boateng, DPM [address] [place] [address] documented as of this encounter Procedures Procedure Name Priority Date/Time Associated Diagnosis Comments XR ANKLE RT MIN 3V 07/17/2023 6: 52 AM EST documented in this encounter Results * XR ANKLE RT MIN 3V (07/17/2023 6:52 AM EST) Anatomical Region Laterality Modality Other 07/17/2023 6:52 AM EST Narrative 07/17/2023 6:55 [place] [address] XRay Report Signed Patient: LAVERN SECOBEDO MR#: [id number] : 1965 Acct:[id number] Age/Sex: 58 / M ADM Date: 07/16/23 Loc: RAD Attending Dr: Rey Perez D.P.M. Ordering Physician: Rey Perez D.P.M. Date of Service: 07/16/23 Procedure(s): XR ankle RT min 3V Accession Number(s): [id number] cc: Shaikh Heather Baker; Rey Perez D.P.M. The [address] [id number] Patient Name: LAVERN GARCIA MRN: [id number] date: 1965 Sex: M Assigned Patient Location: [facility] Current Patient Location: Accession/Order Number: [id number] Exam Date: 07/16/2023 13:10 Report Date: 07/17/2023 [...] Robert Fitzgerald M.D. Signed By: 07/17/2355 DD/ TD/TT: Electric Train Driver: Procedure Note Radiology, Radiologist, MD - 07/31/2023 [place] [address] XRay Report Signed Patient: LAVERN ESCOBEDOMR#: [id number] : 1965Acct:[id number] Age/Sex: 58 / MADM Date: 07/16/23 Loc: RAD Attending Dr: Rey Perez D.P.M. Ordering Physician: Rey Perez D.P.M. Date of Service: 07/16/23 Procedure(s): XR ankle RT min 3V Accession Number(s): [id number] cc: Shaikh Heather Baker; Rey Perez D.P.M. The [place] [id number] Patient Name: LAVERN GARCIA MRN: [id number] date: 1965 Sex: M Assigned Patient Location: [facility] Current Patient Location: Accession/Order Number: [id number] Exam Date: 07/16/2023 13:10 Report Date: 07/17/2023 [...] Robert Fitzgerald M.D. Signed By:07/17/2355 DD/ TD/TT: Electric Train Driver: us Generic External Data Provider [facility] Final Result documented in this encounter Visit Diagnoses Not on filedocumented in this encounter Care Teams Business Representative Relationship Specialty Start Date End Date Shaikh Baker MD [address] [place] [address] PCP - General Internal Medicine 06/25/23 12/29/23 Antwan Perez MD [address] [place] [address] PCP - General Family Medicine 12/30/23 Shaikh Baker MD [address] [place] [address] PCP - [facility] 02/25/24 Georgina Velasquez NP [address] [place] [address] Nurse Practitioner Family Medicine 12/30/23 documented as of this encounter
--- OUTSIDE RECORDS SUMMARY | 2024-12-31 17:03 | XMS_ITS | Encounter Summary ---
Author Organization [facility] Address [address] [place] [address] Care Team Providers Care Customer Support Consultant Name Role Phone Shaikh ALONSO Baker Primary Care Provider Antwan Perez MD Primary Care Provider [phone] Georgina Velasquez NP Unavailable Shaikh ALONSO Baker Unavailable [phone] Encounter Details Date Type Department Care [...] Visit [facility] [address] [place] [address] Luci Rios NP [address] [place] [address] 02/23/2025 3:15 PM EDT Procedure Visit [facility] [address] [address] Abisai Boateng, DPM [address] [place] [address] documented as of this encounter Procedures Procedure Name Priority Date/Time Associated Diagnosis Comments XR ANKLE RT MIN 3V 06/26/2023 4: 31 PM EST documented in this encounter Results * XR ANKLE RT MIN 3V (06/26/2023 4:31 PM EST) Anatomical Region Laterality Modality Other 06/26/2023 4:31 PM EST Narrative 06/26/2023 4:33 [place] [address] XRay Report Signed Patient: LAVERN ESCOBEDO MR#: [id number] : 1965 Acct:[id number] Age/Sex: 58 / M ADM Date: 06/26/23 Loc: RAD Attending Dr: Rey Perez D.P.M. Ordering Physician: Rey Perez D.P.M. Date of Service: 06/26/23 Procedure(s): XR ankle RT min 3V Accession Number(s): [id number] cc: Shaikh Heather Baker; Rey Perez D.P.M. The [address] [id number] Patient Name: LAVERN GARCIA MRN: [id number] date: 1965 Sex: M Assigned Patient Location: [facility] Current Patient Location: [facility] Accession/Order Number: [id number] Exam Date: 06/26/2023 13:56 Report Date: 06/26/2023 [...] Signed By: 06/26/23 163 DD/ 163 TD/TT: Net Making Supervisor: Procedure Note Radiology, Radiologist, MD - 07/31/2023 [place] [address] XRay Report Signed Patient: LAVERN ESCOBEDOMR#: [id number] : 1965Acct:[id number] Age/Sex: 58 / MADM Date: 06/26/23 Loc: RAD Attending Dr: Rey Perez D.P.M. Ordering Physician: Rey Perez D.P.M. Date of Service: 06/26/23 Procedure(s): XR ankle RT min 3V Accession Number(s): [id number] cc: Shaikh Heather Baker; Rey Perez D.P.M. The [address] [id number] Patient Name: LAVERN GARCIA MRN: [id number] date: 1965 Sex: M Assigned Patient Location: [facility] Current Patient Location: [facility] Accession/Order Number: [id number] Exam Date: 06/26/2023 13:56 Report Date: 06/26/2023 [...] M.D. Signed By:06/26/23 1633 DD/ 1631 TD/TT: Net Making Supervisor: us Generic External Data Provider [facility] Final Result documented in this encounter Visit Diagnoses Not on filedocumented in this encounter Care Teams Customer Support Consultant Relationship Specialty Start Date End Date Shaikh Baker MD [address] [place] [address] PCP - General Internal Medicine 06/25/23 12/29/23 Antwan Perez MD [address] [place] [address] PCP - General Family Medicine 12/30/23 Shaikh Baker MD [address] [place] [address] PCP - [facility] 02/25/24 Georgina Velasquez NP [address] [place] [address] Nurse Practitioner Family Medicine 12/30/23 documented as of this encounter
--- OUTSIDE RECORDS SUMMARY | 2024-12-31 17:03 | XMS_ITS | Clinical Summary ---
Author Organization [facility] Healthcare Address [address] [place] [address] Care Team Providers Care Grain Trader Name Role Phone Antwan Perez MD Primary Care Provider [phone] Georgina Velasquez DEVELOPER AUTOMATIC Unavailable [phone] Allergies No known active allergies Medications aspirin 81 MG chewable tabletIndications :Hyperlipidemia, unspecified hyperlipidemia type Chew 1 tablet (81 mg) in the morning. 30 tablet 2 01/22/20 24 Active Continuous Glucose Part Time (VimaginoStyle Era 2 Butternut) deviceIndications :Type 2 diabetes mellitus without complication, with long-term current use of insulin (HCC) 1 each in the morning and 1 each at noon and 1 each in the evening and 1 each before bedtime. 1 each 03/19/20 24 025 Active albuterol HFA 90 mcg/act inhalerIndication s:Severe persistent asthma without complication (HCC) Inhale 2 puffs every 4 (four) hours if needed for shortness of breath 18 g 07/30/19 25 Active amLODIPine (Norvasc) 10 MG tabletIndications :Primary hypertension Take 1 tablet (10 mg) by mouth Daily 90 tablet 1 11/20/19 25 025 Active atorvastatin (Lipitor) 40 MG tabletIndications :Hyperlipidemia, unspecified hyperlipidemia type Take 1 tablet (40 mg) by mouth Daily 90 tablet 1 11/20/19 25 025 Active carvedilol (Coreg) 25 MG tabletIndications :Resistant hypertension Take 1 tablet (25 mg) by mouth in the morning and 1 tablet (25 mg) in the evening. Take with meals. 180 tablet 1 11/20/19 025 Active dapagliflozin (Farxiga) 5 MGIndications:Typ e 2 diabetes mellitus without complications (HCC) Take 1 tablet (5 mg) by mouth Daily 90 tablet 1 11/20/19 25 025 Active Fluticasone-Umecl idin-Vilant (Trelegy Ellipta) 200-62.5-25 MCG/ACT aerosol powderIndications :Severe persistent asthma without complication (HCC) Inhale 1 puff Daily INHALE 1 PUFF ONCE DAILY, rinse mouth after use 1 each 11/20/19 Active glipiZIDE (Glucotrol) 5 MG tabletIndications :Type 2 diabetes mellitus with diabetic polyneuropathy, with long-term current use of insulin ([facility]) Take 1 tablet (5 mg) by mouth in the morning and 1 tablet (5 mg) in the evening. Take before meals. 180 tablet 11/20/19 025 Active insulin pen needle (B-D ULTRAFINE III SHORT PEN) 31G X 8 mm miscIndications:T ype 2 diabetes mellitus with diabetic polyneuropathy, with long-term current use of insulin ([facility]) Daily 100 each 3 11/20/19 25 026 Active losartan-hydroCHL OROthiazide (Hyzaar) 100-25 MG tabletIndications :Primary hypertension Take 1 tablet by mouth Daily 90 tablet 11/20/19 025 Active metFORMIN (Glucophage) 850 MG tabletIndications :Hyperlipidemia, unspecified hyperlipidemia type Take 1 tablet (850 mg) by mouth in the morning and 1 tablet (850 mg) in the evening. Take with meals. 180 tablet 11/20/19 025 Active omeprazole (PriLOSEC) [address] capsuleIndication s:Gastroesophagea l reflux disease without esophagitis Take 1 capsule (40 mg) by mouth in the morning. Take before meals. 90 capsule 1 11/20/19 025 Active spironolactone (Aldactone) 50 MG tabletIndications :Resistant hypertension Take 1 tablet (50 mg) by mouth Daily 90 tablet 1 11/20/19 25 025 Active insulin glargine (Lantus SoloStar) 100 UNIT/ML penIndications:Ty pe 2 diabetes mellitus without complication, with long-term current use of insulin ([facility]) Inject 20 Units under the skin at bedtime 18 mL 2 11/25/19 25 025 Active Continuous Glucose Sensor (Dexcom G7 Sensor) miscIndications:T ype 2 diabetes mellitus without complication, with long-term current use of insulin ([facility]) 1 each Daily 3 each 12/10/19 25 025 Active diclofenac (Cataflam) 50 MG tabletIndications :Chronic pain of right ankle Take 1 tablet (50 mg) by mouth in the morning and 1 tablet (50 mg) in the evening. Take with food. 60 tablet 01/01/20 25 025 Active Continuous Glucose Sensor (FreeStyle Era 3 Plus Sensor) miscIndications:T ype 2 diabetes mellitus without complications ([facility]) 1 each by Other route continuously USE 1 SENSOR EVERY 15 DAYS TO MONITOR BLOOD SUGAR. 2 each 11/20/19 025 Continuous Glucose Sensor (Dexcom G7 Sensor) misc 1 each Daily 025 Discontinu ed(Reorder ) Active Problems Problem Noted Date Diagnosed Date Chronic pain of right ankle 12/31/2024 Elevated serum creatinine 08/19/2024 Assessment & Plan (10/08/2024 4:18 PM EDT): Recheck labs, still has not heard anything about renal US at [facility] We will refax Edema of both lower extremities 08/18/2024 Assessment & Plan (12/31/2024 6:52 AM EDT): Current meds: aldactone, hydrochlorothiazide in losartan Assessment & Plan (10/08/2024 7:08 AM EDT): Current meds: aldactone, hydrochlorothiazide in losartan Assessment & Plan (08/18/2024 4:18 PM EDT): improved Type 2 diabetes mellitus without complications 0 07/29/2024 Assessment & Plan (12/31/2024 6:51 AM EDT): Check blood sugars daily, notify [...] 7.0% 11/19/24, 8.3% 07/18/24 Assessment & Plan (11/19/2024 3:58 PM EDT): [...] no contraindications for that A1c 8.3% 07/18/24 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 (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 We have also discussed lifestyle modifications: attempts to perform physical activity as chronic conditions allow, also to monitor dietary intake: increasing protein/fruits/veggies and lowering carb intake (unless contraindicated). Limit sodas, juices, and sugary drinks. Assessment & Plan (11/19/2024 7:30 AM EDT): [...] past Primary hypertension 07/29/2024 Assessment & Plan (12/31/2024 6:50 AM EDT): Please check blood pressure daily and record DASH diet Limit caffeine Take medication as directed Contact office if chest pain, pressure, dizziness, shortness of breath, swelling legs Recommend slow position changes Current meds: amlodipine, carvedilol, losartan/hydrochlorothiazide, aldactone Assessment & Plan (11/19/2024 7:30 AM EDT): [...] use of insulin 08/07/2023 Assessment & Plan (12/31/2024 6:50 AM EDT): No current treatment Recommend proper fitting toes, freq foot inspections, good glycemic control Assessment & Plan (10/08/2024 7:07 AM EDT): [...] persistent asthma without complication Assessment & Plan (12/31/2024 6:52 AM EDT): In the past has used trelegy 200, symbicort 160, and flovent, has seen pulmonary in the past Finds benefit with trelegy 100's Current meds: trelegy, albuterol Assessment & Plan (07/29/2024 7:32 PM EST): [...] home BP log next appt. Other hyperlipidemia 08/07/2023// 025 Assessment & Plan (08/07/2023 4:02 PM EDT): On lipitor, check lipid panel Encounters Date Type Department Care Team Description 12/31/2024 3:40 PM EDT Office Visit [facility] [address] [place] [address] Luci Rios NP Type 2 diabetes mellitus with diabetic polyneuropathy, with long-term current use of insulin (HCC) (Primary Dx); Primary hypertension ; Type 2 diabetes mellitus without complication, with long-term current use of insulin (HCC); Morbid (severe) obesity due to excess calories ([facility]); Severe persistent asthma without complication (HCC); Edema of both lower extremities; Chronic pain of right ankle 12/31/2024 Bamboo flowsheet [facility] [address] [place] [address] Luci Rios NP 12/09/2024 Abstract [facility] [address] [place] [address] Aichholz, Luci, DEVELOPER AUTOMATIC 12/09/2024 Telephone [facility] [address] [place] [address] Aichholz, Luci, DEVELOPER AUTOMATIC 12/09/2024 Refill [facility] [address] [place] [address] Aichholz, Luci, DEVELOPER AUTOMATIC Type 2 diabetes mellitus without complication, with long-term current use of insulin (HCC) (Primary Dx) 12/07/2024 Abstract [facility] [address] [place] [address] Aichholz, Luci, DEVELOPER AUTOMATIC 11/30/2024 Clinisync Result Encounter [facility] External Department Unsolicited Provider, Generic External Data 11/24/2024 Refill [facility] [address] [place] [address] Aichholz, Luci, DEVELOPER AUTOMATIC Type 2 diabetes mellitus without complication, with long-term current use of insulin (HCC) (Primary Dx) 11/23/2024 Abstract [facility] [address] [place] [address] Aichholz, Luci, DEVELOPER AUTOMATIC 11/23/2024 Abstract [facility] [address] [place] [address] Aichholz, Luci, DEVELOPER AUTOMATIC 11/23/2024 Abstract [facility] [address] [place] [address] Aichholz, Luci, DEVELOPER AUTOMATIC 11/19/2024 3:40 PM EDT Office Visit [facility] [address] [place] [address] Aichholz, Luci, DEVELOPER AUTOMATIC Type 2 diabetes mellitus with diabetic polyneuropathy, with long-term current use of insulin (HCC) (Primary Dx); Primary hypertension ; Morbid (severe) obesity due to excess calories (CMS-HCC); Type 2 diabetes mellitus without complication, with long-term current use of insulin (HCC); Resistant hypertension ; Hyperlipidemia, unspecified hyperlipidemia type ; Type 2 diabetes mellitus without complications (HCC); Severe persistent asthma without complication (HCC); Gastroesophageal reflux disease without esophagitis 11/19/2024 Bamboo flowsheet [facility] [address] [place] [address] Luci Rios NP 10/24/2024 Clinisync Result Encounter [facility] External Department Unsolicited Luci Rios NP 10/24/2024 Clinisync Result Encounter [facility] External Department Unsolicited Luci Rios NP 10/08/2024 3:40 PM EDT Office Visit [facility] [address] [facility] [place] [address] Luci Rios, MARIA FERNANDA Type 2 diabetes mellitus without complication, with long-term current use of insulin (HCC) (Primary Dx); Type 2 diabetes mellitus with diabetic polyneuropathy, with long-term current use of insulin (HCC); Primary hypertension ; Edema of both lower extremities; 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 (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 (HCC); Morbid (severe) obesity due to excess calories (CMS-HCC); Severe persistent asthma without complication (HCC); Elevated serum creatinine 10/08/2024 Bamboo flowsheet [facility] [address] [facility] [place] [address] Luci Rios NP from Last 3 Months Immunizations Immunization Administration Dates Next Due Influenza, injectable, MDCK, preservative free, quadrivalent 05/10/2021,02/17/2020 Influenza, injectable, quadrivalent, preservativ e free 03/12/2017 Influenza, seasonal, injectable 03/13/2022,03/09 Influenza, seasonal, injectable, preservative fr ee 05/28/2024 MMR 05/28/2024 Pneumococcal conjugate vacci ne, 21 valent (PCV21), polysaccharide SPP769 conjugate, preservative free 05/28/2024 Tdap 03/23/2022 Zoster, [...] Never 01/21/2024 How often do you attend [facility] or spiritism services? More than 4 times per year 01/21/2024 Do you belong to any clubs o r organizations such as uatsdin groups, unions, fraternal or athletic groups, or [...] Recorded Patient Health Questionnaire-2 Score 0 01/22/2024 [facility] of Occupat ional Health - Occupational Stress [...] any time in the past 12 m [facility], were you homeless or living in a [...] oz) 12/31/2024 3:54 P M EDT Height 167.6 cm (5' 6 ) 08/24/2024 3:27 PM EDT Body Mass Index 40.32 08/24/2024 3:27 PM EDT Plan of Treatment Upcoming Encounters Date Type Department Care Team (Late st Contact Info) Description 02/11/2025 3:00 PM EDT Office Visit [facility] [address] [place] [address] Luci Rios NP [address] [place] [address] 02/23/2025 3:15 PM EDT Procedure Visit [facility] [place] [facility] [address] [place] [address] Abisai Boateng DPM [address] [place] [address] Health Maintenance Due Date Last Done Comments [...] Diagnosis Comments XR ANKLE RT MIN 3V 11/30/2024 4: 33 PM EDT POCT GLYCOSYLATED HEMOGLOBIN (HGB A1C) Routine 11/19/2024 3:57 PM EDT Type 2 diabetes mellitus without complication, with long-term current use of insulin (HCC) US RENAL BI 10/24/2024 11:37 AM EDT ALL BASIC METABOLIC PANEL Routine 10/24/2024 9:08 AM EDT COLONOSCOPY DIAGNOSTIC Routine 07/30/2024 9:25 AM EST from Last 3 Months or Most Recently Relevant to Health Maintenance Results * XR ANKLE RT MIN 3V (11/30/2024 4:33 PM EDT) Anatomical Region Laterality Modality Other 11/30/2024 4:33 PM EDT Narrative 11/30/2024 4:36 [place] [address] XRay Report Signed Patient: LAVERN ESCOBEDO MR#: [id number] : 1965 Acct:[id number] Age/Sex: 59 / M ADM Date: 11/30/24 Loc: RAD Attending Dr: Rey Perez D.P.M. Ordering Physician: Rey Perez D.P.M. Date of Service: 11/30/24 Procedure(s): XR ankle RT min 3V Accession Number(s): [id number] cc: Luci Rios DEVELOPER AUTOMATIC; Rey Perez D.P.M. The [place] [address] Patient Name: LAVERN DEWEY MRN: [id number] date: 1965 Sex: M Assigned Patient Location: [facility] Current Patient Location: [facility] Accession/Order Number: [id number] Exam Date: 11/30/2024 16:31 Report Date: 11/30/2024 16:33 At the request of: REY PEREZ DPEv Procedure: XR ankle RT min 3V 3 views right ankle plain film standing position COMPARISON: 04/15/2024 HISTORY: Chronic right ankle pain. ACUTE FINDINGS: None DEGENERATIVE CHANGE: Unremarkable SOFT TISSUE FINDINGS: Unremarkable JOINT EFFUSION: None POSTOP CHANGES: Ankle fusion hardware and intramedullary marci in score screw present. Prosthetic spacer of the talus. Stable hardware without failure. BONE MINERALIZATION: Adequate XR/XR ankle RT min 3V IMPRESSION: Stable postsurgical changes. No hardware failure Impression dictated by: Arslan Dunn M.D. 11/30/2024 4:33 PM Dictation Location: [place] [address] Electronically authenticated by: [id number] Y Date: 11/30/2024 16:33 Dictated By: Arslan Dunn D.O. Signed By: 11/30/24 1636 DD/ 32 TD/TT: Vending Supervisor: Procedure Note Radiology, Radiologist, MD - 11/30/2024 [place] [address] XRay Report Signed Patient: LAVERN ESCOBEDOMR#: [id number] : 1965Acct:[id number] Age/Sex: 59 / MADM Date: 11/30/24 Loc: RAD Attending Dr: Rey Perez D.P.M. Ordering Physician: Rey Perez D.P.M. Date of Service: 11/30/24 Procedure(s): XR ankle RT min 3V Accession Number(s): [id number] cc: Luci Rios DEVELOPER AUTOMATIC; Rey Perez D.P.M. The [place] [id number] Patient Name: LAVERN DEWEY MRN: [id number] date: 1965 Sex: M Assigned Patient Location: [facility] Current Patient Location: [facility] Accession/Order Number: [id number] Exam Date: 11/30/2024 16:31 Report Date: 11/30/2024 16:33 At the request of: REY PEREZ DPEv Procedure: XR ankle RT min 3V 3 views right ankle plain film standing position COMPARISON: 04/15/2024 HISTORY: Chronic right ankle pain. ACUTE FINDINGS: None DEGENERATIVE CHANGE: Unremarkable SOFT TISSUE FINDINGS: Unremarkable JOINT EFFUSION: None POSTOP CHANGES: Ankle fusion hardware and intramedullary marci in scorescrew present. Prosthetic spacer of the talus. Stable hardware withoutfailure. BONE MINERALIZATION: Adequate XR/XR ankle RT min 3V IMPRESSION: Stable postsurgical changes. No hardware failure Impression dictated by: Arslan Dunn M.D. 11/30/2024 4:33 PM Dictation Location: [place] [address] Electronically authenticated by: [id number] Y Date: 6:33 Dictated By: Arslan Dunn D.O. Signed By:11/30/246 DD/ 163 TD/TT: Vending Supervisor: us Generic External Data Provider [facility] Final Result * (ABNORMAL) POCT glycosylated hemoglobin (Hb A1C) docked device (11/19/2024 3:57 PM EDT) Hemoglobin A1C 7.0 Blood Venous blood specimen / Unknown 11/19/2024 3:57 PM EDT Luci Rios NP POINT OF CARE TEST ENTER/EDIT O RDERABLES Final Result * US RENAL BI (10/24/2024 11:37 AM EDT) Anatomical Region Laterality Modality Other 10/24/2024 11:3 7 AM EDT Narrative 10/24/2024 11:39 AM EDT [address] [address] Ultrasound Report Signed Patient: LAVERN ESCOBEDO MR#: [id number] : 1965 Acct:[id number] Age/Sex: 59 / M ADM Date: 10/24/24 Loc: US Attending Dr: Luci Rios DEVELOPER AUTOMATIC Ordering Physician: Luci Rios NP Date of Service: 10/24/24 Procedure(s): US renal BI Accession Number(s): [id number] cc: Luci Rios NP [address] [address] Patient Name: LAVERN DEWEY MRN: [id number] date: 1965 Sex: M Assigned Patient Location: US Current Patient Location: US Accession/Order Number: [id number] Exam Date: 10/24/2024 11:36 Report Date: 10/24/2024 11:37 At the request of: LCUI RIOS NP Procedure: US renal BI Bilateral [...] Dunn M.D. 10/24/2024 11:37 AM Dictation Location: [place] [address] Electronically authenticated by: [id number] Y Date: 10/24/2024 11:37 Dictated By: Arslan Dunn D.O. Signed By: 10/24/24 1139 DD/ 1137 TD/TT: Vending Supervisor: Procedure Note Radiology, Radiologist, MD - 10/24/2024 [place] [address] Ultrasound Report Signed Patient: LAVERN ESCOBEDOMR#: [id number] : 1965Acct:[id number] Age/Sex: 59 / MADM Date: 10/24/24 Loc: US Attending Dr: Luci Rios NP Ordering Physician: Luci Rios NP Date of Service: 10/24/24 Procedure(s): US renal BI Accession Number(s): [id number] cc: Luci Rios NP The [place] [id number] Patient Name: LAVERN DEWEY MRN: [id number] date: 1965 Sex: M Assigned Patient Location: US Current Patient Location: US Accession/Order Number: [id number] Exam Date: 10/24/2024 11:36 Report Date: 10/24/2024 [...] Dunn M.D. 10/24/2024 11:37 AM Dictation Location: [place] [address] Electronically authenticated by: [id number] Y Date: 1:37 Dictated By: Arslan Dunn D.O. Signed By:10/24/24 1139 DD/ 1137 TD/TT: Vending Supervisor: Luci Rios NP [facility] Final Result * (ABNORMAL) ALL BASIC METABOLIC PANEL (10/24/2024 9:08 AM EDT) SODIUM 139 136 - 145 mmol/L TB[facility] POTASSIUM 4.8 3.5 - 5.1 mmol/L [facility] CHLORIDE 102 98 - 107 mmol/L [facility] CARBON DIOXIDE 27.2 21.0 - 32.0 mmol/L [facility] ANION GAP 14.6 [facility] GLUCOSE 143(H) 74 - 106 mg/dL [facility] BLOOD UREA NITROGEN 20.0(H) 7.0 - 18.0 mg/dL [facility] CREATININE 1.00 0.70 - 1.30 mg/dL TB[facility] TBH EGFR-AF DUTCH >60 >=60 mL/min/1.7 3m 2 TBH TBH EGFR-NON AF DUTCH >60 >=60 mL/min/1.7 3m 2 [facility] BUN CREATININE RATIO 20.0 [facility] CALCIUM 8.8 8.5 - 10.1 mg/dL [facility] 10/24/2024 9:08 AM EDT 10/24/2024 9:29 AM EDT Narrative [facility] - 10/24/2024 9:51 AM EDT Luci Rios NP [facility] Final Result [facility] * COLONOSCOPY DIAGNOSTIC (07/30/2024 9:25 AM EST) Anatomical Region Laterality Modality Radiographic Juliann ging Sav Andrews MD IMG XR PROCEDURES Final Result from Last 3 Months or Most Recently Relevant to Health [place] [address] [employer]BS Care Teams Grain Trader Relationship Specialty Start Date End Date Antwan Perez MD [address] [place] [address] PCP - General Family Medicine 12/30/23 Georgina Velasquez NP [address] [place] [address] Nurse Practitioner Family Medicine 12/30/23
--- OUTSIDE RECORDS SUMMARY | 2024-12-31 17:03 | XMS_ITS | Encounter Summary ---
Author Organization [facility] Address [address] [place] [address] Care Team Providers Care Pond Sawyer Name Role Phone Shaikh ALONSO Baker Primary Care Provider Shaikh ALONSO Baker Primary Care Provider Antwan Perez MD Primary Care Provider Georgina Velasquez NP Unavailable Shaikh ALONSO Baker Unavailable [phone] Encounter Details Date Type Department Care Team (Late st Contact Info) Description 05/23/2023 Orders Only [facility] [address] [place] [address] Bharath Perez Social History Tobacco Use Types [...] Office Visit [facility] [address] [place] [address] Luci Rios HAT CONDITIONER [address] [place] [address] 02/23/2025 3:15 PM EDT Procedure Visit [facility] [address] [place] [address] Abisai Boateng DPM [address] [place] [id number] documented as of this encounter Procedures Procedure [...] on filedocumented in this encounter Care Teams Pond Sawyer Relationship Specialty Start Date End Date Shaikh Baker MD PCP - General Internal Medicine 12/05/22 06/24/23 Shaikh Baker MD [address] [place] [address] PCP - General Internal Medicine 06/25/23 12/29/23 Antwan Perez MD [address] [place] [address] PCP - General Family Medicine 12/30/23 Shaikh Baker MD [address] [place] [address] PCP - [facility] 02/25/24 Georgina Velasquez NP [address] [place] [address] Nurse Practitioner Family Medicine 12/30/23 documented as of this encounter
--- OUTSIDE RECORDS SUMMARY | 2024-12-31 17:03 | XMS_ITS | Encounter Summary ---
Author Organization [facility] Address [address] [place] [address] Care Team Providers Care Drywall Stripper Name Role Phone Antwan Perez MD Primary Care Provider [phone] Georgina Velasquez SECTION SUPERVISOR Unavailable [phone] Encounter Details Date Type Department Care Team (Late st Contact Info) Description 12/31/2024 Bamboo flowsheet [facility] [address] [place] [address] Luci Rios NP [address] [place] [address] Social History Tobacco Use Types [...] Never 01/21/2024 How often do you attend [facility] or rastafarian services? More than 4 times per year [...] Recorded Patient Health Questionnaire-2 Score 0 01/22/2024 [facility] of Occupat ional [facility] - Occupational Stress Questionnaire Answer [...] time in the past 12 m [facility], were you homeless or living [...] 02/11/2025 3:00 PM EDT Office Visit [facility] [address] [place] [address] Luci Rios NP [address] [place] [address] 02/23/2025 3:15 PM EDT Procedure Visit [facility] [address] [place] [address] Abisai Boateng, DPM [address] [place] [address] documented as of this encounter Visit Diagnoses Not on filedocumented in this encounter Care Teams Drywall Stripper Relationship Specialty Start Date End Date Antwan Perez MD [address] [place] [address] PCP - General Family Medicine 12/30/23 Georgina Velasquez NP [address] [place] [address] Nurse Practitioner Family Medicine 12/30/23 documented as of this encounter
--- OUTSIDE RECORDS SUMMARY | 2024-12-31 17:03 | XMS_ITS | Encounter Summary ---
Author Organization [facility] Address [address] [place] [address] Care Team Providers Care Navy Fighter Pilot Name Role Phone Shaikh ALONSO Baker Primary Care Provider Shaikh ALONSO Baker Primary Care Provider Antwan Perez MD Primary Care Provider Georgina Velasquez NP Unavailable Shaikh ALONSO Baker Unavailable [phone] Encounter Details Date Type Department Care [...] Visit [facility] [address] [place] [address] Luci Rios NP [address] [place] [address] 02/23/2025 3:15 PM EDT Procedure Visit [facility] [address] [place] [address] Abisai Boateng, DPEv [address] [place], [place] [address] documented as of this encounter Procedures Procedure Name Priority Date/Time Associated Diagnosis Comments XR ANKLE LT MIN 3V 05/25/2023 6: 11 PM EST documented in this encounter Results * XR ANKLE LT MIN 3V (05/25/2023 6:11 PM EST) Anatomical Region Laterality Modality Other 05/25/2023 6:11 PM EST Narrative 05/25/2023 6:14 PM EST [address] [address] XRay Report Signed Patient: LAVERN ESCOBEDO MR#: [id number] : 1965 Acct:[id number] Age/Sex: 58 / M ADM Date: 05/23/23 Loc: RAD Attending Dr: Rey Perez D.P.M. Ordering Physician: Rey Perez D.P.M. Date of Service: 05/23/23 Procedure(s): XR ankle LT min 3V Accession Number(s): [id number] cc: Shaikh Heather Baker; Rey Perez D.P.M. The [address] [id number] Patient Name: LAVERN GARCIA MRN: [facility]:[id number] date: 1965 Sex: M Assigned Patient Location: [facility] Current Patient Location: Accession/Order Number: [id number] Exam Date: 05/23/2023 14:15 Report Date: 05/25/2023 [...] M.D. Signed By: 05/25/231813 DD/ 10 TD/TT: Wet Pan Mixer: Procedure Note Radiology, Radiologist, MD - 05/25/2023 [place] [address] XRay Report Signed Patient: LAVERN ESCOBEDOMR#: [id number] : 1965Acct:[id number] Age/Sex: 58 / MADM Date: 05/23/23 Loc: RAD Attending Dr: Rey Perez D.P.M. Ordering Physician: Rey Perez D.P.M. Date of Service: 05/23/23 Procedure(s): XR ankle LT min 3V Accession Number(s): [id number] cc: Shaikh Heather Baker; Rey Perez D.P.M. The [address] [address] Patient Name: LAVERN GARCIA MRN: [facility]:[id number] date: 1965 Sex: M Assigned Patient Location: [facility] Current Patient Location: Accession/Order Number: [id number] Exam Date: 05/23/2023 14:15 Report Date: 05/25/2023 [...] Rae M.D. Signed By:05/25/231813 DD/ 10 TD/TT: Wet Pan Mixer: us Generic External Data Provider [facility] Final Result documented in this encounter Visit Diagnoses Not on filedocumented in this encounter Care Teams Navy Fighter Pilot Relationship Specialty Start Date End Date Shaikh Baker MD PCP - General Internal Medicine 12/05/22 06/24/23 Shaikh Baker MD [address] [place] [address] PCP - General Internal Medicine 06/25/23 12/29/23 Antwan Perez MD [address] [place] [address] PCP - General Family Medicine 12/30/23 Shaikh Baker MD [address] [place] [address] [facility] 02/25/24 Georgina Velasquez NP [address] [place] [address] Nurse Practitioner Family Medicine 12/30/23 documented as of this encounter
--- OUTSIDE RECORDS SUMMARY | 2024-12-31 17:03 | XMS_ITS | Encounter Summary ---
Author Organization [facility] Address [address] [place] [address] Care Team Providers Care Handle Bender Name Role Phone Shaikh ALONSO Baker Primary Care Provider Antwan Perez MD Primary Care Provider Georgina Velasquez NP Unavailable Shaikh ALONSO Baker Unavailable [phone] Encounter Details Date Type Department Care Team (Late st Contact Info) Description 07/29/2023 [facility] [address] [place] [address] Bharath Perez Social History Tobacco [...] EDT Office Visit [facility] [address] [place] [address] Luci Rios NP [address] [place] [address] 02/23/2025 3:15 PM EDT Procedure Visit [facility] [address] [place] [address] Abisai Boateng, DPEv [address] [place], [place] [address] documented as of this encounter Procedures Procedure [...] Perez IMG XR PROCEDURES Final Resul t * XR foot 3+ views right (07/16/2023 1:40 PM EST) Anatomical Region Laterality Modality Lower Extremities, Foot Right Radiogra phic Imaging Bharath Perez IM XR PROCEDURES Final Resul t documented in this encounter Visit Diagnoses Not on filedocumented in this encounter Care Teams Handle Bender Relationship Specialty Start Date End Date Shaikh Baker MD [address] [place] [address] PCP - General Internal Medicine 06/25/23 12/29/23 Antwan Perez MD [address] [place] [address] PCP - General Family Medicine 12/30/23 Shaikh Baker MD [address] [place] [address] PCP - [facility] 02/25/24 Georgina Velasquez NP [address] [place] [address] Nurse Practitioner Family Medicine 12/30/23 documented as of this encounter
--- OUTSIDE RECORDS SUMMARY | 2024-12-31 17:03 | XMS_ITS | Encounter Summary ---
Author Organization [facility] Address [address] [place] [address] Care Team Providers Care Manganese Breaker Name Role Phone Antwan Perez MD Primary Care Provider [phone] Georgina Velasquez COUNSELOR CAMP Unavailable Encounter Details Date Type Department Care Team (Late st Contact Info) Description 12/09/2024 Abstract [facility] [address] [place] [address] Luci Rios NP [address] [place] [address] Social History Tobacco Use Types Packs/Day Years [...] Never 01/21/2024 How often do you attend [facility] or restorationism services? More than 4 times per year 01/21/2024 Do you belong to any clubs o r organizations such as confucianism groups, unions, fraternal or athletic groups, or [...] Recorded Patient Health Questionnaire-2 Score 0 01/22/2024 [facility]ational Stress Questionnaire Answer Date [...] any time in the past 12 m [facility], were you homeless or living in a [...] Visit [facility] [address] [place] [address] Luci Rios NP [address] [place] [address] 02/23/2025 3:15 PM EDT Procedure Visit [facility] [address] [place] [address] Abisai Boateng DPEv [address] [place] [address] documented as of this encounter Visit Diagnoses Not on filedocumented in this encounter Care Teams Manganese Breaker Relationship Specialty Start Date End Date Antwan Perez MD [address] [place] [address] PCP - General Family Medicine 12/30/23 Georgina Velasquez NP [address] [place] [address] Nurse Practitioner Family Medicine 12/30/23 documented as of this encounter
--- OUTSIDE RECORDS SUMMARY | 2024-12-31 17:03 | XMS_ITS | Encounter Summary ---
Author Organization [facility] Address [address] [place] [address] Care Team Providers Care Store Assistant Name Role Phone Shaikh ALONSO Baker Primary Care Provider [phone] Antwan Perez MD Primary Care Provider Georgina Velasquez NP Unavailable Shaikh ALONSO Baker Unavailable [phone] Encounter Details Date Type Department Care [...] Visit [facility] [address] [place] [address] Luci Rios NP [address] [place] [address] 02/23/2025 3:15 PM EDT Procedure Visit [facility] [address] [place] [address] Abisai Boateng, DPM [address] [place] [address] documented as of this encounter Procedures Procedure Name Priority Date/Time Associated Diagnosis Comments CT ANKLE RT WO CON 06/25/2023 4: 07 PM EST documented in this encounter Results * CT ANKLE RT WO CON (06/25/2023 4:07 PM EST) Anatomical Region Laterality Modality Other 06/25/2023 4:07 PM EST Narrative 06/25/2023 4:10 PM EST [address] [address] [address] Scan Report Signed Patient: LAVERN ESCOBEDO MR#: [id number] : 1965 Acct:[id number] Age/Sex: 58 / M ADM Date: 06/25/23 Loc: CT Attending Dr: Rey Perez D.P.M. Ordering Physician: Rey Perez D.P.M. Date of Service: 06/25/23 Procedure(s): CT ankle RT wo con Accession Number(s): [id number] cc: Shaikh Heather Baker [address] [address] Patient Name: LAVERN GARCIA MRN: [id number] date: 1965 Sex: M Assigned Patient Location: CT Current Patient Location: CT Accession/Order Number: [id number] Exam Date: 06/25/2023 15:11 Report Date: 06/25/2023 [...] severe degenerative osteoarthropathy of the knee with jptt-kw-fhgg articulation and remodeling of the lateral compartment SOFT TISSUES: Negative. No visible soft tissue swelling. EFFUSION: None visible. OTHER: Negative. CT/CT ankle RT wo con IMPRESSION: Stable ankle fusion Diffuse osteopenia Moderate to severe degenerative osteoarthritis of the knee Electronically authenticated by: EGRA BLUM Date: 06/25/2023 16:07 Dictated By: Gera Blum M.D. Signed By: 06/25/23 1610 DD/ 1607 TD/TT: School Age Lead Teacher: Procedure Note Radiology, Radiologist, MD - 06/25/2023 [place] [address] CT Scan Report Signed Patient: LAVERN ESCOBEDOMR#: [id number] : 1965Acct:[id number] Age/Sex: 58 / MADM Date: 06/25/23 Loc: CT Attending Dr: Rey Perez D.P.M. Ordering Physician: Rey Perez D.P.M. Date of Service: 06/25/23 Procedure(s): CT ankle RT wo con Accession Number(s): [id number] cc: Shaikh Heather Baker The [place] [address] Patient Name: LAVERN GARCIA MRN: [id number] date: 1965 Sex: M Assigned Patient Location: CT Current Patient Location: CT Accession/Order Number: [id number] Exam Date: 06/25/2023 15:11 Report Date: 06/25/2023 [...] severe degenerative osteoarthropathy of the knee with khqe-ly-ujyt articulationand remodeling of the lateral compartment SOFT TISSUES: Negative. No visible soft tissue swelling. EFFUSION: None visible. OTHER: Negative. CT/CT ankle RT wo con IMPRESSION: Stable ankle fusion Diffuse osteopenia Moderate to severe degenerative osteoarthritis of the knee Electronically authenticated by: GERA BLUM Date: 06/25/2023 16:07 Dictated By: Gera Blum M.D. Signed By:06/25/23 1610 DD/ 1607 TD/TT: School Age Lead Teacher: us Generic External Data Provider [facility] Final Result documented in this encounter Visit Diagnoses Not on filedocumented in this encounter Care Teams Store Assistant Relationship Specialty Start Date End Date Shaikh Baker MD [address] [place] [address] PCP - General Internal Medicine 06/25/23 12/29/23 Antwan Perez MD [address] [place] [address] PCP - General Family Medicine 12/30/23 Shaikh Baker MD [address] [place] [address] [facility] 02/25/24 Georgina Velasquez NP [address] [place] [address] Nurse Practitioner Family Medicine 12/30/23 documented as of this encounter
--- OUTSIDE RECORDS SUMMARY | 2024-12-31 17:03 | XMS_ITS | Encounter Summary ---
Author Organization [facility] Address [address] [place] [address] Care Team Providers Care Veneer Gluer Name Role Phone Shaikh ALONSO Baker Primary Care Provider [phone] Antwan Perez MD Primary Care Provider Georgina Velasquez NP Unavailable Shaikh ALONSO Baker Unavailable [phone] Encounter Details Date Type Department Care Team [...] Visit [facility] [address] [place] [address] Luci Rios NP [address] [place] [address] 02/23/2025 3:15 PM EDT Procedure Visit [facility] [address] [place] [address] Abisai Boateng, DPM [address] [place] [address] documented as of this encounter Procedures Procedure Name Priority Date/Time Associated Diagnosis Comments XR FOOT RT MIN 3V 07/17/2023 6:5 2 AM EST documented in this encounter Results * XR FOOT RT MIN 3V (07/17/2023 6:52 AM EST) Anatomical Region Laterality Modality Other 07/17/2023 6:52 AM EST Narrative 07/17/2023 6:54 [place] [address] XRay Report Signed Patient: LAVERN ESCOBEDO MR#: [id number] : 1965 Acct:[id number] Age/Sex: 58 / M ADM Date: 07/16/23 Loc: RAD Attending Dr: Rey Perez D.P.M. Ordering Physician: Rey Perez D.P.M. Date of Service: 07/16/23 Procedure(s): XR foot RT min 3V Accession Number(s): [id number] cc: Shaikh Heather Baker; Rey Perez D.P.M. [address] [id number] Patient Name: LAVERN GARCIA MRN: [id number] date: 1965 Sex: M Assigned Patient Location: [facility] Current Patient Location: Accession/Order Number: [id number] Exam Date: 07/16/2023 13:10 Report Date: 07/17/2023 [...] Fitzgerald M.D. Signed By: 07/17/2354 DD/ TD/TT: Recorder Gravity Prospecting: Procedure Note Radiology, Radiologist, MD - 07/31/2023 [place] [address] XRay Report Signed Patient: LAVERN ESCOBEDOMR#: [id number] : 1965Acct:[id number] Age/Sex: 58 / MADM Date: 07/16/23 Loc: RAD Attending Dr: Rey Perez D.P.M. Ordering Physician: Rey Perez D.P.M. Date of Service: 07/16/23 Procedure(s): XR foot RT min 3V Accession Number(s): [id number] cc: Shaikh Heather Baker; Rey Perez D.P.M. The [place] [id number] Patient Name: LAVERN GARCIA MRN: [id number] date: 1965 Sex: M Assigned Patient Location: [facility] Current Patient Location: Accession/Order Number: [id number] Exam Date: 07/16/2023 13:10 Report Date: 07/17/2023 [...] Robert Fitzgerald M.D. Signed By:07/17/2354 DD/ TD/TT: Recorder Gravity Prospecting: Generic External Data Provider [facility] Final Result documented in this encounter Visit Diagnoses Not on filedocumented in this encounter Care Teams Veneer Gluer Relationship Specialty Start Date End Date Shaikh Baker MD [address] [place] [address] PCP - General Internal Medicine 06/25/23 12/29/23 Antwan Perez MD [address] [place] [address] PCP - General Family Medicine 12/30/23 Shaikh Baker MD [address] [place] [address] PCP - [facility] 02/25/24 Georgina Velasquez NP [address] [place] [address] Nurse Practitioner Family Medicine 12/30/23 documented as of this encounter
--- OUTSIDE RECORDS SUMMARY | 2024-12-31 17:03 | XMS_ITS | Encounter Summary ---
Author Organization [facility] Address [address] [place] [address] Care Team Providers Care Biologics Specialist Name Role Phone Antwan Perez MD Primary Care Provider [phone] Georgina Velasquez SCORE CALLER Unavailable [phone] Encounter Details Date Type Department Care Team (Late st Contact Info) Description 12/07/2024 Abstract [facility] [address] [place] [address] Luci Rios NP [address] [place] [address] Social History Tobacco Use Types Packs/Day Years [...] Never 01/21/2024 How often do you attend [facility] or adventist services? More than 4 times per year 01/21/2024 Do you belong to any clubs o r organizations such as sabianism groups, unions, fraternal or athletic groups, or [...] Recorded Patient Health Questionnaire-2 Score 0 01/22/2024 [facility] - Occupational Stress Questionnaire Answer Date Recorded [...] were you homeless or living in a senior care (including now)? No 01/21/2024 Sex and Gender [...] Visit [facility] [address] [place] [address] Luci Rios NP [address] [place] [address] 02/23/2025 3:15 PM EDT Procedure Visit [facility] [address] [place] [address] Abisai Boateng DPEv [address] [place] [address] documented as of this encounter Visit Diagnoses Not on filedocumented in this encounter Care Teams Biologics Specialist Relationship Specialty Start Date End Date Antwan Perez MD [address] [place] [address] PCP - General Family Medicine 12/30/23 Georgina Velasquez NP [address] [place] [address] Nurse Practitioner Family Medicine 12/30/23 documented as of this encounter
--- OUTSIDE RECORDS SUMMARY | 2024-12-31 17:03 | XMS_ITS | Encounter Summary ---
Author Organization [facility] Address [address] [place] [address] Care Team Providers Care General Warehouse Worker Name Role Phone Shaikh ALONSO Baker Primary Care Provider [phone] Antwan Perez MD Primary Care Provider Georgina Velasquez NP Unavailable Shaikh ALONSO Baker Unavailable [phone] Encounter Details Date Type Department Care Team (Late st Contact Info) Description 07/11/2023 [facility] [address] [place] [address] Bharath Perez Social History Tobacco [...] Office Visit [facility] [address] [place] [address] Luci Rios NP [address] [place] [address] 02/23/2025 3:15 PM EDT Procedure Visit [facility] [address] [place] [address] Abisai Boateng, DPEv [address] [place], [place] [address] documented as of this encounter Procedures Procedure [...] on filedocumented in this encounter Care Teams General Warehouse Worker Relationship Specialty Start Date End Date Shaikh Baker MD [address] [place] [address] PCP - General Internal Medicine 06/25/23 12/29/23 Antwan Perez MD [address] [place] [address] PCP - General Family Medicine 12/30/23 Shaikh Baker MD [address] [place] [address] PCP - [facility] 02/25/24 Georgina Velasquez NP [address] [place] [address] Nurse Practitioner Family Medicine 12/30/23 documented as of this encounter
--- OUTSIDE RECORDS SUMMARY | 2024-12-31 17:03 | XMS_ITS | Encounter Summary ---
Author Organization [facility] Address [address] [place] [address] Care Team Providers Care Ornament Setter Name Role Phone Shaikh ALONSO Baker Primary Care Provider [phone] Shaikh ALONSO Baker Primary Care Provider [phone] Antwan Perez MD Primary Care Provider Georgina Velasquez NP Unavailable [phone] Shaikh ALONSO Baker Unavailable [phone] Encounter Details Date Type Department Care [...] Visit [facility] [address] [place] [address] Luci Rios NP [address] [place] [address] 02/23/2025 3:15 PM EDT Procedure Visit [facility] [address] [place] [address] Abisai Boateng, DPEv [address] [place], [place] [address] documented as of this encounter Procedures Procedure Name Priority Date/Time Associated Diagnosis Comments XR FOOT RT MIN 3V 05/25/2023 7:2 5 PM EST documented in this encounter Results * XR FOOT RT MIN 3V (05/25/2023 7:25 PM EST) Anatomical Region Laterality Modality Other 05/25/2023 7:25 PM EST Narrative 05/25/2023 7:27 PM EST [address] [address] XRay Report Signed Patient: LAVERN ESCOBEDO MR#: [id number] : 1965 Acct:[id number] Age/Sex: 58 / M ADM Date: 05/23/23 Loc: RAD Attending Dr: Rey Perez D.P.M. Ordering Physician: Rey Perez D.P.M. Date of Service: 05/23/23 Procedure(s): XR foot RT min 3V Accession Number(s): [id number] cc: Shaikh Heather Baker; Rey Perez D.P.M. The [address] [id number] Patient Name: LAVERN GARCIA MRN: [id number] date: 1965 Sex: M Assigned Patient Location: [facility] Current Patient Location: [facility] Accession/Order Number: [id number] Exam Date: 05/23/2023 14:15 Report Date: 05/25/2023 [...] M.D. Signed By: 05/25/231926 DD/ 24 TD/TT: Tele Rn: Procedure Note Radiology, Radiologist, MD - 07/31/2023 [place] [address] XRay Report Signed Patient: LAVERN ESCOBEDOMR#: [id number] : 1965Acct:[id number] Age/Sex: 58 / MADM Date: 05/23/23 Loc: RAD Attending Dr: Rey Perez D.P.M. Ordering Physician: Rey Perez D.P.M. Date of Service: 05/23/23 Procedure(s): XR foot RT min 3V Accession Number(s): [id number] cc: Shaikh Heather Baker; Rey Perez D.P.M. The [place] [id number] Patient Name: LAVERN GARCIA MRN: [facility]:[id number] date: 1965 Sex: M Assigned Patient Location: [facility] Current Patient Location: [facility] Accession/Order Number: [id number] Exam Date: 05/23/2023 14:15 Report Date: 05/25/2023 [...] Rae M.D. Signed By:05/25/231926 DD/ 24 TD/TT: Tele Rn: us Generic External Data Provider [facility] Final Result documented in this encounter Visit Diagnoses Not on filedocumented in this encounter Care Teams Ornament Setter Relationship Specialty Start Date End Date Shaikh Baker MD PCP - General Internal Medicine 12/05/22 06/24/23 Shaikh Baker MD [address] [place] [address] PCP - General Internal Medicine 06/25/23 12/29/23 Antwan Perez MD [address] [place] [address] PCP - General Family Medicine 12/30/23 Shaikh Baker MD [address] [place] [address] PCP - [facility] 02/25/24 Georgina Velasquez NP [address] [place] [address] Nurse Practitioner Family Medicine 12/30/23 documented as of this encounter
--- OUTSIDE RECORDS SUMMARY | 2024-12-31 17:03 | XMS_ITS | Encounter Summary ---
Author Organization [facility] Address [address] [place] [address] Care Team Providers Care Communications Controller Name Role Phone Antwan Perez MD Primary Care Provider Georgina Velasquez NP Unavailable [phone] Shaikh ALONSO Baker Unavailable [phone] Encounter Details Date Type Department Care Team (Late st Contact Info) Description 07/30/2024 Orders Only [facility] [address] [place] [address] Sav Andrews MD [address] [facility] [address] [place] [address] Social History Tobacco Use Types [...] 01/21/2024 How often do you attend [facility] or samaritan services? More than 4 times per year 01/21/2024 Do you belong to any clubs o r organizations such as episcopalian groups, unions, fraternal or athletic groups, or [...] Recorded Patient Health Questionnaire-2 Score 0 01/22/2024 [facility] - Occupational Stress Questionnaire Answer Date [...] Office Visit [facility] [address] [place] [address] Luci Rios NP [address] [facility] [place] [address] 02/23/2025 3:15 PM EDT Procedure Visit [facility] [address] [place] [address] Abisai Boateng DPM [address] [place], [place] [address] documented as of this encounter Procedures Procedure Name Priority Date/Time Associated Diagnosis Comments COLONOSCOPY DIAGNOSTIC Routine 07/30/2024 9:25 AM EST documented in this encounter Results * COLONOSCOPY DIAGNOSTIC (07/30/2024 9:25 AM EST) Anatomical Region Laterality Modality Radiographic Juliann ging us Sav Andrews MD IMG XR PROCEDURES Final Result documented in this encounter Visit Diagnoses Not on filedocumented in this encounter Care Teams Communications Controller Relationship Specialty Start Date End Date Antwan Perez MD [address] [place] [address] PCP - General Family Medicine 8/5/24 Shaikh Baker MD [address] [place] [address] PCP - [facility] 02/25/24 Georgina Velasquez NP [address] [place] [address] Nurse Practitioner Family Medicine 12/30/23 documented as of this encounter
--- OUTSIDE RECORDS SUMMARY | 2024-12-31 17:03 | XMS_ITS | Encounter Summary ---
Author Organization [facility] Address [address] [place] [address] Care Team Providers Care Senior Asic Design Engineer Name Role Phone Shaikh ALONSO Baker Primary Care Provider [phone] Shaikh ALONSO Baker Primary Care Provider Antwan Perez MD Primary Care Provider Georgina Velasquez NP Unavailable Shaikh ALONSO Baker Unavailable [phone] Encounter Details Date Type Department Care Team (Late st Contact Info) Description 05/22/2023 Abstract [facility] [address] [place] [address] Shaikh Baker MD [address] [place] [address] Social History Tobacco Use Types Packs/Day Years [...] 02/11/2025 3:00 PM EDT Office Visit [facility] [address] [place] [address] Luci Rios NP [address] [place] [address] 02/23/2025 3:15 PM EDT Procedure Visit [facility] [address] [place] [address] Abisai Boateng DPEv [address] [place], [place] [address] documented as of this encounter Visit Diagnoses Not on filedocumented in this encounter Care Teams Senior Asic Design Engineer Relationship Specialty Start Date End Date Shaikh Baker MD PCP - General Internal Medicine 12/05/22 06/24/23 Shaikh Baker MD [address] [place] [address] PCP - General Internal Medicine 06/25/23 12/29/23 Antwan Perez MD [address] [place] [address] PCP - General Family Medicine 12/30/23 Shaikh Baker MD [address] [place] [address] PCP - [facility] 02/25/24 Georgina Velasquez NP [address] [place] [address] Nurse Practitioner Family Medicine 12/30/23 documented as of this encounter
--- OUTSIDE RECORDS SUMMARY | 2024-12-31 17:03 | XMS_ITS | Encounter Summary ---
Author Organization [facility] Address [address] [place] [address] Care Team Providers Care Picker And Sorter Load And Unload Name Role Phone Shaikh ALONSO Baker Primary Care Provider [phone] Antwan Perez MD Primary Care Provider [phone] Georgina Velasquez NP Unavailable [phone] Shaikh ALONSO Baker Unavailable [phone] Encounter Details Date Type Department Care [...] 02/11/2025 3:00 PM EDT [facility] [address] [place] [address] Luci Rios, MARIA FERNANDA [address] [place] [address] 02/23/2025 3:15 PM EDT Procedure Visit [facility] [address] [place] [address] Abisai Boateng, DPM [address] [place], [place] [address] documented as of this encounter Procedures Procedure Name Priority Date/Time Associated Diagnosis Comments CT ANKLE RT WO CON 08/19/2023 7: 23 AM EDT documented in this encounter Results * CT ANKLE RT WO CON (08/19/2023 7:23 AM EDT) Anatomical Region Laterality Modality Other 08/19/2023 7:23 AM EDT Narrative 08/19/2023 7:25 [place] [address] CT Scan Report Signed Patient: LAVERN ESCOBEDO MR#: [id number] : 1965 Acct:[id number] Age/Sex: 58 / M ADM Date: 08/16/23 Loc: CT Attending Dr: Rey Perez D.P.M. Ordering Physician: Rey Perez D.P.M. Date of Service: 08/16/23 Procedure(s): CT ankle RT wo con Accession Number(s): [id number] cc: Shaikh Heather Baker [place] [id number] Patient Name: LAVERN GARCIA MRN: [id number] date: 1965 Sex: M Assigned Patient Location: CT Current Patient Location: Accession/Order Number: [id number] Exam Date: 08/16/2023 15:26 Report Date: 08/19/2023 [...] M.D. Signed By: 08/19/23724 DD/ 2 TD/TT: Roof Technician: Procedure Note Radiology, Radiologist, MD - 08/19/2023 [place] [address] CT Scan Report Signed Patient: LAVERN ESCOBEDOMR#: [id number] : 1965Acct:[id number] Age/Sex: 58 / MADM Date: 08/16/23 Loc: CT Attending Dr: Rey Perez D.P.M. Ordering Physician: Rey Perez D.P.M. Date of Service: 08/16/23 Procedure(s): CT ankle RT wo con Accession Number(s): [id number] cc: Shaikh Heather Baker The [place] [address] Patient Name: LAVERN GARCIA MRN: [id number] date: 1965 Sex: M Assigned Patient Location: CT Current Patient Location: Accession/Order Number: [id number] Exam Date: 08/16/2023 15:26 Report Date: 08/19/2023 [...] Blum M.D. Signed By:08/19/23724 DD/ 2 TD/TT: Roof Technician: Generic External Data Provider [facility] Final Result documented in this encounter Visit Diagnoses Not on filedocumented in this encounter Care Teams Picker And Sorter Load And Unload Relationship Specialty Start Date End Date Shaikh Baker MD [address] [place] [address] PCP - General Internal Medicine 06/25/23 12/29/23 Antwan Perez MD [address] [place] [address] PCP - General Family Medicine 12/30/23 Shaikh Baker MD [address] [place] [address] PCP - [facility] 02/25/24 Georgina Velasquez NP [address] [place] [address] Nurse Practitioner Family Medicine 12/30/23 documented as of this encounter
--- OUTSIDE RECORDS SUMMARY | 2024-12-31 17:03 | XMS_ITS | Encounter Summary ---
Author Organization [facility] Address [address] [place] [address] Care Team Providers Care Property And Supply Officer Name Role Phone Shaikh ALONSO Baker Primary Care Provider Shaikh ALONSO Baker Primary Care Provider [phone] Antwan Perez MD Primary Care Provider Georgina Velasquez NP Unavailable Shaikh ALONSO Baker Unavailable [phone] Encounter Details Date Type Department Care [...] Visit [facility] [address] [place] [address] Luci Rios NP [address] [place] [address] 02/23/2025 3:15 PM EDT Procedure Visit [facility] [address] [place] [address] Abisai Boateng, DPEv [address] [place], [place] [address] documented as of this encounter Procedures Procedure Name Priority Date/Time Associated Diagnosis Comments XR ANKLE RT MIN 3V 05/02/2023 2: 36 PM EST documented in this encounter Results * XR ANKLE RT MIN 3V (05/02/2023 2:36 PM EST) Anatomical Region Laterality Modality Other 05/02/2023 2:36 PM EST Narrative 05/02/2023 2:38 PM EST [address] [address] XRay Report Signed Patient: LAVERN ESCOBEDO MR#: [id number] : 1965 Acct:[id number] Age/Sex: 58 / M ADM Date: 05/02/23 Loc: RAD Attending Dr: Rey Perez D.P.M. Ordering Physician: Rey Perez D.P.M. Date of Service: 05/02/23 Procedure(s): XR ankle RT min 3V Accession Number(s): [id number] cc: Shaikh Heather Baker; Rey Perez D.P.M. The [address] [id number] Patient Name: LAVERN GARCIA MRN: [id number] date: 1965 Sex: M Assigned Patient Location: RAD Current Patient Location: RAD Accession/Order Number: [id number] Exam Date: 05/02/2023 13:40 Report Date: 05/02/2023 [...] Blum M.D. Signed By: 05/02/23 1438 DD/ TD/TT: Torpedoman'S Mate: Procedure Note Radiology, Radiologist, MD - 05/02/2023 [place] [address] XRay Report Signed Patient: LAVERN ESCOBEDOMR#: [id number] : 1965Acct:[id number] Age/Sex: 58 / MADM Date: 05/02/23 Loc: RAD Attending Dr: Rey Perez D.P.M. Ordering Physician: Rey Perez D.P.M. Date of Service: 05/02/23 Procedure(s): XR ankle RT min 3V Accession Number(s): [id number] cc: Shaikh Heather Baker; Rey Perez D.P.M. The [place] [address] Patient Name: LAVERN GARCIA MRN: [id number] date: 1965 Sex: M Assigned Patient Location: [facility] Current Patient Location: [facility] Accession/Order Number: [id number] Exam Date: 05/02/2023 13:40 Report Date: 05/02/2023 [...] M.D. Signed By:05/02/23 1438 DD/ 35 TD/TT: Torpedoman'S Mate: us Generic External Data Provider [facility] Final Result documented in this encounter Visit Diagnoses Not on filedocumented in this encounter Care Teams Property And Supply Officer Relationship Specialty Start Date End Date Shaikh Baker MD PCP - General Internal Medicine 12/05/22 06/24/23 Shaikh Baker MD [address] [place] [address] PCP - General Internal Medicine 06/25/23 12/29/23 Antwan Perez MD [address] [place] [address] PCP - General Family Medicine 12/30/23 Shaikh Baker MD [address] [place] [address] [facility] - [facility] 02/25/24 Georgina Velasquez NP [address] [place] [address] Nurse Practitioner Family Medicine 12/30/23 documented as of this encounter
--- OUTSIDE RECORDS SUMMARY | 2024-12-31 17:03 | XMS_ITS | Encounter Summary ---
Author Organization [facility] Address [address] [place] [address] Care Team Providers Care Slot Floorperson Name Role Phone Shaikh ALONSO Baker Primary Care Provider [phone] Shaikh ALONSO Baker Primary Care Provider [phone] Antwan Perez MD Primary Care Provider [phone] Georgina Velasquez NP Unavailable Shaikh ALONSO Baker Unavailable [phone] Encounter Details Date Type Department Care [...] Visit [facility] [address] [place] [address] Luci Rios NP [address] [place] [address] 02/23/2025 3:15 PM EDT Procedure Visit [facility] [address] [place] [address] Abisai Boateng, DPEv [address] [place] [place], [place] [address] documented as of this encounter Procedures Procedure Name Priority Date/Time Associated Diagnosis Comments XR FOOT RT MIN 3V 05/02/2023 2:3 6 PM EST documented in this encounter Results * XR FOOT RT MIN 3V (05/02/2023 2:36 PM EST) Anatomical Region Laterality Modality Other 05/02/2023 2:36 PM EST Narrative 05/02/2023 2:38 PM EST [address] [address] XRay Report Signed Patient: LAVERN ESCOBEDO MR#: [id number] : 1965 Acct:[id number] Age/Sex: 58 / M ADM Date: 05/02/23 Loc: RAD Attending Dr: Rey Perez D.P.M. Ordering Physician: Rey Perez D.P.M. Date of Service: 05/02/23 Procedure(s): XR foot RT min 3V Accession Number(s): [id number] cc: Shaikh Heather Baker; Rey Perez D.P.M. The [address] [address] Patient Name: LAVERN GARCIA MRN: [id number] date: 1965 Sex: M Assigned Patient Location: RAD Current Patient Location: RAD Accession/Order Number: [id number] Exam Date: 05/02/2023 13:40 Report Date: 05/02/2023 [...] Signed By: 05/02/23 1438 DD/ 35 TD/TT: Esthetician Makeup Artist: Procedure Note Radiology, Radiologist, MD - 05/02/2023 [place] [address] XRay Report Signed Patient: LAVERN ESCOBEDOMR#: [id number] : 1965Acct:[id number] Age/Sex: 58 / MADM Date: 05/02/23 Loc: RAD Attending Dr: Rey Perez D.P.M. Ordering Physician: Rey Perez D.P.M. Date of Service: 05/02/23 Procedure(s): XR foot RT min 3V Accession Number(s): [id number] cc: Shaikh Heather Baker; Rey Perez D.P.M. The [place] [address] Patient Name: LAVERN GARCIA MRN: [id number] date: 1965 Sex: M Assigned Patient Location: [facility] Current Patient Location: [facility] Accession/Order Number: [id number] Exam Date: 05/02/2023 13:40 Report Date: 05/02/2023 [...] M.D. Signed By:05/02/23 1438 DD/ 35 TD/TT: Esthetician Makeup Artist: Generic External Data Provider [facility] Final Result documented in this encounter Visit Diagnoses Not on filedocumented in this encounter Care Teams Slot Floorperson Relationship Specialty Start Date End Date Shaikh Baker MD PCP - General Internal Medicine 12/05/22 06/24/23 Shaikh Baker MD [address] [place] [address] PCP - General Internal Medicine 06/25/23 12/29/23 Antwan Perez MD [address] [place] [address] PCP - General Family Medicine 12/30/23 Shaikh Baker MD [address] [place] [address] PCP - [employer] 02/25/24 Georgina Velasquez NP [address] [place] [address] Nurse Practitioner Family Medicine 12/30/23 documented as of this encounter
--- OUTSIDE RECORDS SUMMARY | 2024-12-31 17:03 | XMS_ITS | Encounter Summary ---
Author Organization [facility] Address [address] [place] [address] Care Team Providers Care Bushel Girl Name Role Phone Shaikh ALONSO Baker Primary Care Provider [phone] Antwan Peerz MD Primary Care Provider [phone] Georgina Velasquez NP Unavailable [phone] Shaikh ALONSO Baker Unavailable [phone] Encounter Details Date Type Department Care [...] 02/11/2025 3:00 PM EDT Office Visit [facility] [address] [place] [address] Luci Rios, MARIA FERNANDA [address] [place] [address] 02/23/2025 3:15 PM EDT Procedure Visit [facility] [address] [place] [address] Abisai Boateng, DPM [address] [place], [place] [address] documented as of this encounter Procedures Procedure Name Priority Date/Time Associated Diagnosis Comments XR ANKLE RT MIN 3V 09/11/2023 8: 52 AM EDT documented in this encounter Results * XR ANKLE RT MIN 3V (09/11/2023 8:52 AM EDT) Anatomical Region Laterality Modality Other 09/11/2023 8:52 AM EDT Narrative 09/11/2023 8:54 [place] [address] XRay Report Signed Patient: LAVERN ESCOBEDO MR#: [id number] : 1965 Acct:[id number] Age/Sex: 58 / M ADM Date: 09/10/23 Loc: EC Attending Dr: Rey Perez D.P.M. Ordering Physician: Rey Perez D.P.M. Date of Service: 09/10/23 Procedure(s): XR ankle RT min 3V Accession Number(s): [id number] cc: Shaikh Heather Baker; Rey Perez D.P.M. The [address] [address] Patient Name: LAVERN GARCIA MRN: [id number] date: 1965 Sex: M Assigned Patient Location: EC Current Patient Location: Accession/Order Number: [id number] Exam Date: 09/10/2023 14:38 Report Date: 09/11/2023 [...] Dictated By: Gera Blum M.D. Signed By: 09/11/23 0854 DD/ 0852 TD/TT: Leather Repairer: Procedure Note Radiology, Radiologist, MD - 09/11/2023 [place] [address] XRay Report Signed Patient: LAVERN ESCOBEDOMR#: [id number] : 1965Acct:[id number] Age/Sex: 58 / MADM Date: 09/10/23 Loc: EC Attending Dr: Rey Perez D.P.M. Ordering Physician: Rey Perez D.P.M. Date of Service: 09/10/23 Procedure(s): XR ankle RT min 3V Accession Number(s): [id number] cc: Shaikh Heather Baker; Rey Perez D.P.M. The [address] [address] Patient Name: LAVERN GARCIA MRN: [facility]:[id number] date: 1965 Sex: M Assigned Patient Location: Current Patient Location: Accession/Order Number: [id number] Exam Date: 09/10/2023 14:38 Report Date: 09/11/2023 [...] 08:52 Dictated By: Gera Blum M.D. Signed By:09/11/23 0854 DD/ TD/TT: Leather Repairer: us Generic External Data Provider [facility] Final Result documented in this encounter Visit Diagnoses Not on filedocumented in this encounter Care Teams Bushel Girl Relationship Specialty Start Date End Date Shaikh Baker MD [address] [place] [address] PCP - General Internal Medicine 06/25/23 12/29/23 Antwan Perez MD [address] [place] [address] PCP - General Family Medicine 12/30/23 Shaikh Baker MD [address] [place] [address] PCP - [facility] 02/25/24 Georgina Velasquez NP [address] [place] [address] Nurse Practitioner Family Medicine 12/30/23 documented as of this encounter
--- OUTSIDE RECORDS SUMMARY | 2024-12-31 17:03 | XMS_ITS | Encounter Summary ---
Author Organization [facility] Address [address] [place] [address] Care Team Providers Care Sock Turner Name Role Phone Shaikh ALONSO Baker Primary Care Provider [phone] Shaikh ALONSO Baker Primary Care Provider [phone] Antwan Perez MD Primary Care Provider Georgina Velasquez NP Unavailable [phone] Shaikh ALONSO Baker Unavailable [phone] Encounter Details Date Type Department Care Team (Late st Contact Info) Description 06/10/2023 Orders Only [facility] [address] [place] [address] Bharath Perez MD [address] [place] [address] [place] [address] Social History Tobacco Use Types [...] 02/11/2025 3:00 PM EDT Office Visit [facility] [address] [place] [address] Luci Rios NP [address] [place] [address] 02/23/2025 3:15 PM EDT Procedure Visit [facility] [address] [place] [address] Abisai Boateng DPEv [address] [place], [place] [address] documented as of this encounter Procedures Procedure [...] on filedocumented in this encounter Care Teams Sock Turner Relationship Specialty Start Date End Date Shaikh Baker MD PCP - General Internal Medicine 12/05/22 06/24/23 Shaikh Baker MD [address] [place] [address] PCP - General Internal Medicine 06/25/23 12/29/23 Antwan Perez MD [address] [place] [address] PCP - General Family Medicine 12/30/23 Shaikh Baker MD [address] [place] [address] PCP - [facility] 02/25/24 Georgina Velasquez NP [address] [place] [address] Nurse Practitioner Family Medicine 12/30/23 documented as of this encounter
--- OUTSIDE RECORDS SUMMARY | 2024-12-31 17:04 | XMS_ITS | Encounter Summary ---
Author Organization [facility] Address [address] [place] [address] Care Team Providers Care Display Mechanic Name Role Phone Shaikh ALONSO Baker Primary Care Provider Shaikh ALONSO Baker Primary Care Provider Antwan Perez MD Primary Care Provider Georgina Velasquez NP Unavailable Shaikh ALONSO Baker Unavailable [phone] Encounter Details Date Type Department Care Team (Late st Contact Info) Description 05/30/2023 Orders Only [facility] [address] [place] [address] Bharath Perez Social History Tobacco Use Types [...] Office Visit [facility] [address] [place] [address] Luci Rios TRAUMA NURSE [address] [place] [address] 02/23/2025 3:15 PM EDT Procedure Visit [facility] [place] [facility] [address] [place] [address] Abisai Boateng DPM [address] [place] [address] documented as of this encounter Procedures Procedure Name Priority Date/Time Associated Diagnosis Comments XR ANKLE 3+ VIEWS RIGHT Routine 05/23/2023 10:04 AM EST documented in this encounter Results * XR ankle 3+ views right (05/23/2023 10:04 AM EST) Anatomical Region Laterality Modality Lower Extremities, Ankle Right Radiogr aphic Imaging us Bharath Perez IM XR PROCEDURES Final Resul t documented in this encounter Visit Diagnoses Not on filedocumented in this encounter Care Teams Display Mechanic Relationship Specialty Start Date End Date Shaikh Baker MD PCP - General Internal Medicine 12/05/22 06/24/23 Shaikh Baker MD [address] [place] [address] PCP - General Internal Medicine 06/25/23 12/29/23 Antwan Perez MD [address] [place] [address] PCP - General Family Medicine 12/30/23 Shaikh Baker MD [address] [place] [address] PCP - [facility] 02/25/24 Georgina Velasquez NP [address] [place] [address] Nurse Practitioner Family Medicine 12/30/23 documented as of this encounter
--- OUTSIDE RECORDS SUMMARY | 2024-12-31 17:04 | XMS_ITS | Encounter Summary ---
Author Organization [facility] Address [address] [place] [address] Care Team Providers Care Transmitter Operator Name Role Phone Shaikh ALONSO Baker Primary Care Provider Shaikh ALONSO Baker Primary Care Provider [phone] Antwan Perez MD Primary Care Provider Georgina Velasquez NP Unavailable [phone] Shaikh ALONSO Baker Unavailable [phone] Encounter Details Date Type Department Care [...] Visit [facility] [address] [place] [address] Luci Rios NP [address] [place] [address] 02/23/2025 3:15 PM EDT Procedure Visit [facility] [address] [place] [address] Abisai Boateng, DPEv [address] [place], [place] [address] documented as of this encounter Procedures Procedure Name Priority Date/Time Associated Diagnosis Comments XR ANKLE RT MIN 3V 05/25/2023 6: 11 PM EST documented in this encounter Results * XR ANKLE RT MIN 3V (05/25/2023 6:11 PM EST) Anatomical Region Laterality Modality Other 05/25/2023 6:11 PM EST Narrative 05/29/2023 9:09 AM EST [address] [address] XRay Report Signed Patient: LAVERN ESCOBEDO MR#: [id number] : 1965 Acct:[id number] Age/Sex: 58 / M ADM Date: 05/23/23 Loc: RAD Attending Dr: Rey Perez D.P.M. Ordering Physician: Rey Perez D.P.M. Date of Service: 05/23/23 Procedure(s): XR ankle RT min 3V Accession Number(s): [id number] cc: Shaikh Heather Baker; Rey Perez D.P.M. The [address] [id number] Patient Name: LAVERN GARCIA MRN: [id number] date: 1965 Sex: M Assigned Patient Location: RAD Current Patient Location: RAD Accession/Order Number: [id number] Exam Date: 05/23/2023 14:15 Report Date: 05/25/2023 [...] Dictated By: Sony Rae M.D. Signed By: 05/29/23908 DD/ 10 TD/TT: Bed Setter: Procedure Note Radiology, Radiologist, - 07/31/2023 [place] [address] XRay Report Signed Patient: LAVERN ESCOBEDOMR#: [id number] : 1965Acct:[id number] Age/Sex: 58 / MADM Date: 05/23/23 Loc: RAD Attending Dr: Rey Perez D.P.M. Ordering Physician: Rey Perez D.P.M. Date of Service: 05/23/23 Procedure(s): XR ankle RT min 3V Accession Number(s): [id number] cc: Shaikh Heather Baker; Rey Perez D.P.M. The [place] [id number] Patient Name: LAVERN GARCIA MRN: [facility]:[id number] date: 1965 Sex: M Assigned Patient Location: [facility] Current Patient Location: [facility] Accession/Order Number: [id number] Exam Date: 05/23/2023 14:15 Report Date: 05/25/2023 [...] 18:11 Dictated By: Sony Rae M.D. Signed By:05/29/23908 DD/ 10 TD/TT: Bed Setter: us Generic External Data Provider [facility] Final Result documented in this encounter Visit Diagnoses Not on filedocumented in this encounter Care Teams Transmitter Operator Relationship Specialty Start Date End Date Shaikh Baker MD PCP - General Internal Medicine 12/05/22 06/24/23 Shaikh Baker MD [address] [place] [address] PCP - General Internal Medicine 06/25/23 12/29/23 Antwan Perez MD [address] [place] [address] PCP - General Family Medicine 12/30/23 Shaikh Baker MD [address] [place] [address] PCP - [facility] 02/25/24 Georgina Velasquez NP [address] [place] [address] Nurse Practitioner Family Medicine 12/30/23 documented as of this encounter
--- OUTSIDE RECORDS SUMMARY | 2024-12-31 17:17 | XMS_ITS | CCD ---
Author Organization [facility] Care Team Providers Care Geophysical Support Specialist Name Role Phone MD Sav Andrews Attending Provider [phone] MD Deana Baker Primary Care Provider DR ASA AL Attending Unavailable ACACIA JENKINS Primary Care Unavailable MIKAELA, DR BRAY Admitting Unavailable LIZETH MARTIN Attending Unavailable ULISES, DR GERA Kwan Consulting Unavailable MARIO, LIZETH Admitting Unavailable GREGORY ACACIAMARY JO ELIZALDE Primary Care Unavailable MARIOLIZETH Consulting Unavailable FAWWAD, LEBLANC H Admitting Unavailable FAWWAD, LEBLANC H Primary Care Unavailable FAWWAD, LEBLANC H Consulting Unavailable FAWWAD, LEBLACN H Attending Unavailable REY PEREZ Attending Unavailable [...] Andrews Attending Unavailable Sav Andrews Admitting Unavailable Beltran Bakerikh Primary Care Unavailable Silver Briceño Attending Unavailable Silver Briceño Admitting Unavailable [facility] Primary Care Unavailable Sav Andrews Admitting Unavailable Sav Andrews Attending Unavailable Silver Briceño Attending Unavailable Silver Briceño Admitting Unavailable [facility] Primary Care Unavailable Antwan Perez MD Primary Care Provider Eva TICKET BROKER, Marquis Unavailable [phone] Samuel GUPTA, Unavailable Eva TICKET BROKER, Marquis Unavailable LUCI RIOS Attending Unavailable BLANCA, LUCI Attending Unavailable ABISAI BOATENG Attending Unavailable LUCI RIOS Attending Unavailable LUCI RIOS Attending Unavailable LUCI RIOS Attending Unavailable MARQUIS VELASQUEZ Attending UnavailABISAI Gomez Attending Unavailable MARQUIS VELASQUEZ Referring UnavailMARQUIS Carlos Attending Unavailmichael e Medications Current Medications Medication Drug Class(es) Dates Sig (Normalized) Sig (Original) [id number] 200 actuat albuterol 0.09 mg/actuat metered dose inhaler (20 sources) beta2-Adrenergic Agonist Start: 05-08-2023 End: 11-06-2024 take 2 puff(s) by inhalation every four hours albuterol HFA 90 mcg/act inhaler Indications: Severe persistent asthma without complication (HCC) Inhale 2 puffs every 4 (four) hours if needed for shortness of breath 18 g 07/29/2024 Active Start: 12-22-2021 take 1 puff(s) by in halation four times daily Albuterol Sulfate Active 1 PUFF INHALATION Four times daily December 22, 2021 12:00am amLODIPine 10 mg oral tablet (20 sources) Dihydropyridine Calcium Channel Blanca Start: 08-18-2024 End: 05-18-2025 take 1 tablet by mouth once daily amLODIPine (Norvasc) 10 MG tablet Indications: Primary hypertension Take 1 tablet (10 mg) by mouth Daily 90 tablet 1 11/19/2024 05/18/2025 Active Start: 10-24-2023 End: 07-20-2024 take 1 [...] chewable tablet Indications: Hyperlipidemia, unspecified hyperlipidemia type Chew 1 tablet (81 mg) in the morning. 30 tablet 2 01/22/2024 Active Start: 12-22-2021 take 81 mg by mouth once daily in the morning Aspirin Active 81 MG PO Every morning December 22, 2021 12:00am atorvastatin 40 mg oral tablet (20 sources) HMG-CoA Reductase Inhibitor Start: 08-18-2024 End: 05-18-2025 take 1 tablet by mouth once daily atorvastatin (Lipitor) 40 MG tablet Indications: Hyperlipidemia, unspecified hyperlipidemia type Take 1 tablet (40 mg) by mouth Daily 90 tablet 1 11/19/2024 05/18/2025 Active Start: 10-24-2023 End: 07-20-2024 take 1 [...] alpha-Adrenergic Blanca, beta-Adrenergic Blanca Start: 08-18-2024 End: 05-18-2025 take 1 tablet by mouth in the morning carvedilol (Coreg) 25 MG tablet Indications: Resistant hypertension Take 1 tablet (25 mg) by mouth in the morning and 1 tablet (25 mg) in the evening. Take with meals. 180 tablet 1 11/19/2024 05/18/2025 Active Start: 10-24-2023 End: 07-20-2024 take 1 [...] daily August 30, 2022 12:00am Continuous Glucose Inside Sales Supervisor (FreeStyle Agueda 2 Knox) device (20 sources) Start: 03-19-2024 End: 03-19-2025 Continuous Glucose Inside Sales Supervisor (FreeStyle Agueda 2 Knox) device Indications: Type 2 diabetes mellitus without complication, with long-term current use of insulin (HCC) 1 each in the morning and 1 each at noon and 1 each in the evening and 1 each before bedtime. 1 each 03/19/2024 03/19/2025 Active Start: 03-19-2024 End: 03-19-2025 Continuous Glucose Inside Sales Supervisor (FreeStyle Agueda 2 Knox) device Indications: Type 2 diabetes mellitus without complication, with long-term current use of insulin 1 each in the morning and 1 each at noon and 1 each in the evening and 1 each before bedtime. 1 each 03/19/2024 03/19/2025 Active Start: 03-19-2024 End: 03-19-2025 Continuous Glucose Inside Sales Supervisor (FreeStyle Agueda 2 Knox) device Indications: Type 2 diabetes mellitus without complication, with long-term current use of insulin (CMS/HCC) 1 each in the morning and 1 each at noon and 1 each in the evening and 1 each before bedtime. 1 each 03/19/2024 03/19/2025 Active Start: 01-22-2024 End: 03-18-2024 Continuous Glucose Inside Sales Supervisor (FreeStyle Agueda 2 Knox) device Indications: Type 2 diabetes mellitus without complication, with long-term current use of insulin (CMS/HCC) 1 each in the morning and 1 each at noon and 1 each in the evening and 1 each before bedtime. 1 each 01/22/2024 03/18/2024 Discontinued (Reorder) Start: 01-22-2024 End: 01-21-2025 Continuous Glucose Inside Sales Supervisor (FreeStyle Agueda 2 Knox) device Indications: Type 2 diabetes mellitus without complication, with long-term current use of insulin (CMS/HCC) 1 each in the morning and 1 each at noon and 1 each in the evening and 1 each before bedtime. 1 each 01/22/2024 01/21/2025 Active Continuous Glucose Sensor (Dexcom G7 Sensor) misc (5 sources) Start: 12-09-2024 End: 01-08-2025 Continuous Glucose Sensor (D excom G7 Sensor) misc Indications: Type 2 diabetes mellitus without complication, with long-term current use of insulin (HCC) 1 each Daily 3 each 12/09/2024 01/08/2025 Active End: 12-09-2024 Continuous Glucose Sensor (D excom G7 Sensor) misc 1 each Daily 12/09/2024 Discontinued (Reorder) Continuous Glucose Sensor (FreeStyle Agueda 2 Plus Sensor) misc (2 sources) Start: 04-27-2024 End: 05-25-2024 Continuous Glucose Sensor (FreeStyle Agueda 2 Plus Sensor) misc Indications: Type 2 diabetes mellitus with diabetic polyneuropathy, with long-term current use of insulin (CMS/HCC) 1 each continuously for 28 days 2 each 11 04/27/2024 05/25/2024 Active Continuous Glucose Sensor (FreeStyle Agueda 3 Plus Sensor) misc (20 sources) Start: 11-19-2024 End: 12-19-2024 Continuous Glucose Sensor (FreeStyle Agueda 3 Plus Sensor) misc Indications: Type 2 diabetes mellitus without complications (HCC) 1 each by Other route continuously USE 1 SENSOR EVERY 15 DAYS TO MONITOR BLOOD SUGAR. 2 each 11 11/19/2024 12/19/2024 Active Start: 07-23-2024 End: 11-19-2024 Continuous Glucose Sensor (F reeStyle Agueda 3 Plus Sensor) misc USE 1 SENSOR EVERY 15 DAYS TO MONITOR BLOOD SUGAR. 07/23/2024 11/19/2024 Discontinued (Reorder) Start: 07-23-2024 Continuous Glu cose Sensor (FreeStyle Agueda 3 Plus Sensor) [facility] USE 1 SENSOR EVERY 15 DAYS TO MONITOR BLOOD SUGAR. 07/23/2024 Active Start: 05-06-2024 End: 06-03-2024 Continuous Glucose Sensor (F reeStyle Agueda 3 Plus Sensor) [facility] Indications: Type 2 diabetes mellitus with diabetic polyneuropathy, with long-term current use of insulin ([facility]) 1 each continuously for 28 days 2 each 05/06/2024 06/03/2024 Active End: 05-06-2024 Continuous Glucose Sensor (F reeStyle Agueda 3 Plus Sensor) [facility] 05/06/2024 Discontinued (Reorder) dapagliflozin 5 mg oral tablet (20 sources) Sodium-Glucose Cotransporter 2 Inhibitor Start: 07-29-2024 End: 02-17-2025 take 1 tablet by mouth once daily dapagliflozin (Farxiga) 5 MG Indications: Type 2 diabetes mellitus without complications (HCC) Take 1 tablet (5 mg) by mouth Daily 90 tablet 1 11/19/2024 02/17/2025 Active diclofenac potassium 50 mg oral tablet (1 source) Nonsteroidal Anti-inflammatory Drug Start: 12-31-2024 End: 01-30-2025 take 1 tablet by mouth in the morning diclofenac (Cataflam) 50 MG tablet Indications: Chronic pain of right ankle Take 1 tablet (50 mg) by mouth in the morning and 1 tablet (50 mg) in the evening. Take with food. 60 tablet 12/31/2024 01/30/2025 Active Fluticasone-Umeclid in-Vilant (Trelegy Ellipta) 200-62.5-25 MCG/ACT aerosol powder (20 sources) Start: 11-19-2024 take 1 puff(s) by mouth once daily, then take 1 puff(s) by mouth once daily Fluticasone-Umecli din-Vilant (Trelegy Ellipta) 200-62.5-25 MCG/ACT aerosol powder Indications: Severe persistent asthma without complication (HCC) Inhale 1 puff Daily INHALE 1 PUFF ONCE DAILY, rinse mouth after use 1 each 5 11/19/2024 Active Start: 11-19-2024 End: 12-19-2024 take 1 puff(s) by mouth once daily, then take 1 puff(s) by mouth once daily Kaagtpgmpgy-Hzrjdzgox-Vzzkhz (Trelegy Ellipta) 200-62.5-25 MCG/ACT aerosol powder Indications: Severe persistent asthma without complication (HCC) Inhale 1 puff Daily INHALE 1 PUFF ONCE DAILY, rinse mouth after use 1 each 11/19/2024 12/19/2024 Active Start: 10-08-2024 End: 11-19-2024 take 1 puff(s) by mouth once daily, then take 1 puff(s) by mouth once daily Bsyrefzhtid-Hxfhhwsga-Hntndg (Trelegy Ellipta) 200-62.5-25 MCG/ACT aerosol powder Indications: Severe persistent asthma without complication (HCC) Inhale 1 puff Daily INHALE 1 PUFF ONCE DAILY, rinse mouth after use 1 each 5 10/08/2024 11/19/2024 Discontinued (Reorder) Start: 10-08-2024 take 1 puff(s) by mo ut once daily, then take 1 puff(s) by mouth once daily Dapvdwswjre-Izduwyygo-Amdxkr (Trelegy Ellipta) 200-62.5-25 MCG/ACT aerosol powder Indications: Severe persistent asthma without complication (HCC) Inhale 1 puff Daily INHALE 1 PUFF ONCE DAILY, rinse mouth after use 1 each 5 10/08/2024 Active Start: 10-08-2024 End: 11-07-2024 take 1 puff(s) by mouth once daily, then take 1 puff(s) by mouth once daily Fyrontlbjvv-Xmdoaqrqf-Mewvoq (Trelegy Ellipta) 200-62.5-25 MCG/ACT aerosol powder Indications: Severe persistent asthma without complication (CMS/HCC) Inhale 1 puff Daily INHALE 1 PUFF ONCE DAILY, rinse mouth after use 1 each 5 10/08/2024 11/07/2024 Active Start: 07-29-2024 End: 10-08-2024 take 1 puff(s) by mouth once daily, then take 1 puff(s) by mouth once daily Fugighqxcjb-Lrqunwoil-Scnsii (Trelegy Ellipta) 200-62.5-25 MCG/ACT aerosol powder Indications: Severe persistent asthma without complication (CMS/HCC) Inhale 1 puff Daily INHALE 1 PUFF ONCE DAILY, rinse mouth after use 1 each 5 07/29/2024 10/08/2024 Discontinued (Reorder) Start: 07-29-2024 take 1 puff(s) by mo uth once daily, then take 1 puff(s) by mouth once daily Gfbenlqypkt-Lzhgayjpi-Myjfcq (Trelegy Ellipta) 200-62.5-25 MCG/ACT aerosol powder Indications: Severe persistent asthma without complication (CMS/HCC) Inhale 1 puff Daily INHALE 1 PUFF ONCE DAILY, rinse mouth after use 1 each 5 07/29/2024 Active Start: 07-29-2024 End: 08-28-2024 take 1 puff(s) by mouth once daily, then take 1 puff(s) by mouth once daily Ofywavisvuy-Jhusmcibh-Ntnhkh (Trelegy Ellipta) 200-62.5-25 MCG/ACT aerosol powder Indications: Severe persistent asthma without complication (CMS/HCC) Inhale 1 puff Daily INHALE 1 PUFF ONCE DAILY, rinse mouth after use 1 each 5 07/29/2024 08/28/2024 Active Start: 01-22-2024 take 1 puff(s) by inhalation once daily Axmvivlhcsg-Domxjweqh-Vfnvhv (Trelegy Ellipta) 200-62.5-25 MCG/ACT aerosol powder Indications: Severe persistent asthma without complication (CMS/HCC) Inhale 1 puff Daily 3 each 01/22/2024 Active Start: 01-22-2024 End: 04-21-2024 take 1 puff(s) by inhalation once daily Enzqvvndrse-Gdqgccykw-Ktxffw (Trelegy Ellipta) 200-62.5-25 MCG/ACT aerosol powder Indications: Severe persistent asthma without complication (CMS/HCC) Inhale 1 puff Daily 3 each 01/22/2024 04/21/2024 Active Start: 05-08-2023 End: 01-22-2024 take 1 puff(s) by inhalation in the morning Hqjirndjoza-Uqqmzrltq-Vruacv (Trelegy Ellipta) 200-62.5-25 MCG/ACT aerosol powder Indications: Severe persistent asthma without complication (CMS/HCC) Inhale 1 puff in the morning. 3 each 05/08/2023 01/22/2024 Discontinued (Reorder) Start: 05-08-2023 take 1 puff(s) by inhalation in the morning Aqvqmtbrlyy-Loxdxyvyz-Ovaanl (Trelegy Ellipta) 200-62.5-25 MCG/ACT aerosol powder Indications: Severe persistent asthma without complication (CMS/HCC) Inhale 1 puff in the morning. 3 each 05/08/2023 Active Lnuaqrirmoc-Bquwxuorf-Chfbyw er (4 sources) Start: 12-22-2021 Wioaqlttqgj-Nviywixgb-Xvfsxp er (Trelegy Ellipta) 200-62.5-25 mcg Blister With [...] tablet (20 sources) Sulfonylurea Start: 08-18-2024 End: 05-18-2025 take 1 tablet by mouth in the morning glipiZIDE (Glucotrol) 5 MG tablet Indications: Type 2 diabetes mellitus with diabetic polyneuropathy, with long-term current use of insulin ([facility]) Take 1 tablet (5 mg) by mouth in the morning and 1 tablet (5 mg) in the evening. Take before meals. 180 tablet 1 11/19/2024 05/18/2025 Active Start: 10-24-2023 End: 07-20-2024 take 1 [...] Angiotensin 2 Receptor Blanca Start: 08-18-2024 End: 05-18-2025 take 1 tablet by mouth once daily losartan-hydroCHLOROthiazide (Hyzaar) 100-25 MG tablet Indications: Primary hypertension Take 1 tablet by mouth Daily 90 tablet 1 11/19/2024 05/18/2025 Active Start: 10-24-2023 End: 07-20-2024 take 1 [...] SUBCUT Every morning August 30, 2022 12:00am 3 ml insulin glargine 100 unt/ml pen injector (6 sources) Insulin Analog Start: 11-24-2024 End: 02-22-2025 insulin glargine (Lantus SoloStar) 100 UNIT/ML pen Indications: Type 2 diabetes mellitus without complication, with long-term current use of insulin ([facility]) Inject 20 Units under the skin at bedtime 18 mL 2 11/24/2024 02/22/2025 Active insulin glargine-yfgn (Semglee, yfgn,) 100 UNIT/ML injection (20 sources) Start: 11-19-2024 End: 11-24-2024 inject 20 [IU] by subcutaneous injection at bedtime insulin glargine-yfgn (Semglee, yfgn,) 100 UNIT/ML injection Indications: Type 2 diabetes mellitus with diabetic polyneuropathy, with long-term current use of insulin ([facility]) Inject 20 Units under the skin at bedtime Inject 20 Units under the skin at bedtime 10 mL 1 11/19/2024 11/24/2024 Discontinued (Cost of medication) Start: 11-19-2024 End: 02-17-2025 inject 20 [IU] by subcutaneous injection at bedtime insulin glargine-yfgn (Semglee, yfgn,) 100 UNIT/ML injection Indications: Type 2 diabetes mellitus with diabetic polyneuropathy, with long-term current use of insulin (HCC) Inject 20 Units under the skin at bedtime Inject 20 Units under the skin at bedtime 10 mL 1 11/19/2024 02/17/2025 Active Start: 04-27-2024 End: 11-19-2024 insulin glargine-yfgn (Semgl ee, yfgn,) 100 UNIT/ML injection Indications: Type 2 diabetes mellitus with diabetic polyneuropathy, with long-term current use of insulin (HCC) Inject 20 Units under the skin at bedtime 04/27/2024 11/19/2024 Discontinued (Reorder) Start: 04-27-2024 End: 04-27-2025 insulin glargine-yfgn (Semgl ee, yfgn,) 100 UNIT/ML injection Indications: Type 2 diabetes mellitus with diabetic polyneuropathy, with long-term current use of insulin (HCC) Inject 20 Units under the skin at bedtime 04/27/2024 04/27/2025 Active Start: 04-27-2024 End: 04-27-2025 insulin glargine-yfgn (Semgl [...] tablet (20 sources) Biguanide Start: 08-18-2024 End: 05-18-2025 take 1 tablet by mouth in the morning metFORMIN (Glucophage) 850 MG tablet Indications: Hyperlipidemia, unspecified hyperlipidemia type Take 1 tablet (850 mg) by mouth in the morning and 1 tablet (850 mg) in the evening. Take with meals. 180 tablet 1 11/19/2024 05/18/2025 Active Start: 10-24-2023 End: 07-20-2024 take 1 [...] MG PO Daily December 22, 2021 12:00am [place] 0-Sxt-Ewc-Fish Oil (Fish Oil) 1,200 (144-216) mg Capsule (4 sources) Start: 12-22-2021 take 1 capsule by mouth twice daily [place] 0-Djz-Qzp-Fish Oil (Fish Oil) 1,200 (144-216) mg Capsule Active 1 CAP PO Twice daily December 22, 2021 12:00am omeprazole 40 mg delayed release oral capsule (20 sources) Proton Pump Inhibitor Start: 10-24-2023 End: 05-18-2025 take 1 capsule by mouth before mealtime omeprazole (PriLOSEC) [address] capsule Indications: Gastroesophageal reflux disease without esophagitis Take 1 capsule (40 mg) by mouth in the morning. Take before meals. 90 capsule 1 11/19/2024 05/18/2025 Active Start: 12-22-2021 take 40 mg by mouth once daily in the morning Omeprazole Active 40 MG PO Every morning December 22, 2021 12:00am spironolactone 50 mg oral tablet (20 sources) Aldosterone Antagonist Start: 11-19-2024 End: 02-17-2025 take 1 tablet by mouth once daily spironolactone (Aldactone) 50 MG tablet Indications: Resistant hypertension Take 1 tablet (50 mg) by mouth Daily 90 tablet 1 11/19/2024 02/17/2025 Active Start: 08-19-2024 End: 11-19-2024 take 2 tablets by mouth once daily spironolactone (Aldactone) 50 MG tablet Indications: Resistant hypertension Take 2 tablets (100 mg) by mouth Daily 180 tablet 08/19/2024 11/19/2024 Discontinued (Reorder) Start: 10-24-2023 End: 10-24-2024 take 1 tablet by mouth once daily spironolactone (Aldactone) 50 MG tablet Indications: Resistant hypertension (CMS/HCC) Take 1 tablet (50 mg) by mouth Daily 90 tablet 1 04/27/2024 10/24/2024 Active traMADol hydrochloride 50 mg oral tablet (1 source) Opioid Agonist Start: 09-10-2022 take 50 mg by mouth every six hours Tramadol Active 50 MG PO Q6H 30 September 10, 2022 12:00am Completed/Discontinued Medications Medication Drug Class(es) Dates Sig (Normalized) Sig (Original) Continuous Blood Gluc Inside Sales Supervisor (FreeStyle Agueda 2 Knox) device (3 sources) Start: 07-18-2023 End: 01-22-2024 Continuous Blood Gluc Inside Sales Supervisor (FreeStyle Agueda 2 Knox) device Indications: Type 2 diabetes mellitus without complication, with long-term current use of insulin (CMS/HCC) 1 each in the morning and 1 each at noon and 1 each in the evening and 1 each before bedtime. 1 each 07/18/2023 01/22/2024 Discontinued (Reorder) Start: 07-18-2023 End: 07-17-2024 Continuous Blood Gluc Receiv er (FreeStyle Agueda 2 Knox) device Indications: Type 2 diabetes mellitus without [...] Chronic Other bone disease and musculoskeletal deformities (20 sources) Idiopathic aseptic necrosis of right foot; Translations: [Aseptic necrosis of bone, other] Onset: 07-29-2024 07-29-2024 Chronic Other non-traumatic joint disorders (2 sources) Chronic ankle pain; Translations: [Pain in right ankle and joints of right foot] Onset: 12-31-2024 12-31-2024 Episodic Other nutritional; endocrine; and metabolic disorders (20 sources) Obesity caused by energy imbalance; Translations: [Morbid (severe) obesity due to excess calories] Onset: 07-29-2024 07-29-2024 Chronic Other nutritional; endocrine; and metabolic disorders (20 sources) Body mass index 30+ - obesity; Translations: [Body mass index (BMI) 38.0-38.9, adult] Onset: 07-29-2024 07-29-2024 Chronic Other skin disorders (3 sources) Dystrophia unguium; Translations: [Nail dystrophy] 02-24-2024 Episodic Residual codes; unclassified (20 sources) Bilateral lower limb edema; Translations: [Localized [...] [Unspecified hemorrhoids] Onset: 08-07-2023 09-10-2022 Episodic Other aftercare (20 sources) Long-term current use of insulin; Translations: [FDC (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] Onset: 07-29-2024 07-29-2024 Episodic Other non-traumatic joint disorders (4 sources) Pain in right ankle and joints of right foot; Translations: [PAIN IN RIGHT ANKLE] Onset: 10-25-2021 Episodic Other screening for suspected conditions (not mental disorders or infectious disease) (20 sources) Serum creatinine raised; Translations: [Other specified abnormal findings of blood chemistry] Onset: 08-19-2024 08-19-2024 Episodic Residual codes; unclassified (4 sources) Procedure and treatment not carried out for other reasons; Translations: [PROC AND TX NOT CARRIED OUT OTH REASONS] Onset: 08-03-2021 Episodic Results Test Name Value Interpretation Reference Range Facility XR ANKLE RT MIN 3Von [address] [address] XRay Report Signed Patient: LAVERN ESCOBEDO MR#: [id number] : 1965 Acct:[id number] Age/Sex: 59 / M ADM Date: 11/30/24 Loc: RAD Attending Dr: Rey Perez D.P.M. Ordering Physician: Rey Perez D.P.M. Date of Service: 11/30/24 Procedure(s): XR ankle RT min 3V Accession Number(s): [id number] cc: Luci Rios TICKET BROKER; Rey Perez D.P.M. [place] [address] Patient Name: LAVERN DEWEY MRN: [facility]:[id number] date: 1965 Sex: M Assigned Patient Location: [facility] Current Patient Location: [facility] Accession/Order Number: [id number] Exam Date: 11/30/2024 16:31 Report Date: 11/30/2024 [...] Dunn M.D. 11/30/2024 4:33 PM Dictation Location: [place] [address] Electronically authenticated by: [id number] Y Date: 11/30/2024 16:33 Dictated By: Arslan Dunn D.O. Signed By: 11/30/241635 DD/ 32 TD/TT: Radiological Metallurgist: [facility] Radiology, Radiologist, MD - 11/30/2024 [place] [address] XRay Report Signed Patient: LAVERN ESCOBEDO MR#: [id number] : 1965 Acct:[id number] Age/Sex: 59 / M ADM Date: 11/30/24 Loc: RAD Attending Dr: Rey Perez D.P.M. Ordering Physician: Rey Perez D.P.M. Date of Service: 11/30/24 Procedure(s): XR ankle RT min 3V Accession Number(s): [id number] cc: Luci Rios TICKET BROKER; Rey Perez D.P.M. The [place] [address] Patient Name: LAVERN DEWEY MRN: [facility]:[id number] date: 1965 Sex: M Assigned Patient Location: [facility] Current Patient Location: [facility] Accession/Order Number: [id number] Exam Date: 11/30/2024 16:31 Report Date: 11/30/2024 16:33 At the request of: REY PEREZ DPM Procedure: XR ankle RT min 3V 3 [...] Dunn M.D. 11/30/2024 4:33 PM Dictation Location: [place] [address] Electronically authenticated by: [id number] Y Date: 11/30/2024 16:33 Dictated By: Arslan Dunn D.O. Signed By: 11/30/241635 DD/ 32 TD/TT: Radiological Metallurgist: [facility] Radiology Study observation (narrative) [facility] XR ANKLE RT MIN 3VOrdered By : Radiologist Radiology on 11-30-2024 [facility] Work Phone: HbA1c (Bld) [Mass fraction]o n 11-19-2024 Interpretation and review of laboratory results Abnormal [facility] - Hematology and Cell countson 11-19-2024 HbA1c (Bld) [Mass fraction] 7 % [facility] ALL BASIC METABOLIC PANELon 10-24-2024 Anion gap [Moles/Vol] 14.6 mmol/L [facility] Calcium [Mass/Vol] 8.8 mg/dL 8.5 - 10. 1 mg/dL [facility] Chloride [Moles/Vol] 102 mmol/L 98 - 10 7 mmol/L [facility] CO2 [Moles/Vol] 27.2 mmol/L 21.0 - 32.0 mmol/L [facility] Creatinine [Mass/Vol] 1 mg/dL 0.70 - 1.30 mg/dL [facility] GFR/1.73 sq M.predicted CKD-EPI (S/P/Bld) [Vol rate/Area] >60 >=60 mL/min/1.73m 2 [facility] Glucose [Mass/Vol] 143 mg/dL High 74 - 106 mg/dL [facility] Interpretation and review of laboratory results Abnormal [facility] Potassium [Moles/Vol] 4.8 mmol/L 3.5 - 5.1 mmol/L [facility] Sodium [Moles/Vol] 139 mmol/L 136 - 145 mmol/L [facility] TBH EGFR-NON AF ESTONIAN >60 >=6 0 mL/min/1.73m 2 [facility] Urea nitrogen [Mass/Vol] 20 mg/dL High 7.0 - 18.0 mg/dL [facility] Urea nitrogen/Creatinine [Mass ratio] 20 mg/mg [facility] US RENAL BIon 10-24-[address] [address] Ultrasound Report Signed Patient: LAVERN ESCOBEDO MR#: [id number] : 1965 Acct:[id number] Age/Sex: 59 / M ADM Date: 10/24/24 Loc: US Attending Dr: Luci Rios TICKET BROKER Ordering Physician: Luci Rios NP Date of Service: 10/24/24 Procedure(s): US renal BI Accession Number(s): [id number] cc: Luci Rios NP [address] [id number] Patient Name: LAVERN DEWEY MRN: [facility]:[id number] date: 1965 Sex: M Assigned Patient Location: [place] Current Patient Location: [place] Accession/Order Number: [id number] Exam Date: 10/24/2024 11:36 Report Date: 10/24/2024 [...] Dunn M.D. 10/24/2024 11:37 AM Dictation Location: [place] [address] Electronically authenticated by: [id number] Y Date: 10/24/2024 11:37 Dictated By: Arslan Dunn D.O. Signed By: 10/24/24 1139 DD/ 1137 TD/TT: Radiological Metallurgist: [facility] Radiology, Radiologist, MD - 10/24/2024 [place] [id number] Ultrasound Report Signed Patient: LAVERN ESCOBEDO MR#: [id number] : 1965 Acct:[id number] Age/Sex: 59 / M ADM Date: 10/24/24 Loc: US Attending Dr: Luci Rios NP Ordering Physician: Luci Rios NP Date of Service: 10/24/24 Procedure(s): US renal BI Accession Number(s): [id number] cc: Luci Rios NP [address] [id number] Patient Name: LAVERN DEWEY MRN: [id number] date: 1965 Sex: M Assigned Patient Location: [place] Current Patient Location: [place] Accession/Order Number: [id number] Exam Date: 10/24/2024 11:36 Report Date: 10/24/2024 [...] Dunn M.D. 10/24/2024 11:37 AM Dictation Location: [place] [address] Electronically authenticated by: [id number] Y Date: 10/24/2024 11:37 Dictated By: Arslan Dunn D.O. Signed By: 10/24/24 1139 DD/ 1137 TD/TT: Radiological Metallurgist: [facility] Radiology Study observation (narrative) [facility] RENAL BIOrdered By: [facility] on 10-24-2024 [facility] Work Phone: ALL BASIC METABOLIC PANELon 09-09-2024 Anion gap [Moles/Vol] 13.6 mmol/L [facility] Calcium [Mass/Vol] 8.4 mg/dL Low 8.5 - 10. 1 mg/dL [facility] Chloride [Moles/Vol] 102 mmol/L 98 - 10 7 mmol/L [facility] CO2 [Moles/Vol] 26.2 mmol/L 21.0 - 32.0 mmol/L [facility] Creatinine [Mass/Vol] 1.79 mg/dL High 0.70 - 1.30 mg/dL [facility] GFR/1.73 sq M.predicted CKD-EPI (S/P/Bld) [Vol rate/Area] 48 Low >=60 mL/min/1.73m 2 [facility] Glucose [Mass/Vol] 78 mg/dL 74 - 106 mg/dL [facility] Interpretation and review of laboratory results Abnormal [facility] Potassium [Moles/Vol] 4.8 mmol/L 3.5 - 5.1 mmol/L [facility] Sodium [Moles/Vol] 137 mmol/L 136 - 145 mmol/L [facility] EGFR-NON AF ESTONIAN 39 Low >=6 0 mL/min/1.73m 2 [facility] Urea nitrogen [Mass/Vol] 35 mg/dL High 7.0 - 18.0 mg/dL [facility] Urea nitrogen/Creatinine [Mass ratio] 19.6 mg/mg [facility] ALL BASIC METABOLIC PANELon 08-29-2024 Anion gap [Moles/Vol] 15 mmol/L [facility] Calcium [Mass/Vol] 9.2 mg/dL 8.5 - 10. 1 mg/dL [facility] Chloride [Moles/Vol] 106 mmol/L 98 - 10 7 mmol/L [facility] CO2 [Moles/Vol] 26.2 mmol/L 21.0 - 32.0 mmol/L [facility] Creatinine [Mass/Vol] 1.08 mg/dL 0.70 - 1.30 mg/dL [facility] GFR/1.73 sq M.predicted CKD-EPI (S/P/Bld) [Vol rate/Area] >60 >=60 mL/min/1.73m 2 [facility] Glucose [Mass/Vol] 148 mg/dL High 74 - 106 mg/dL [facility] Interpretation and review of laboratory results Abnormal [facility] Potassium [Moles/Vol] 5.2 mmol/L High 3.5 - 5.1 mmol/L [facility] Sodium [Moles/Vol] 142 mmol/L 136 - 145 mmol/L [facility] EGFR-NON AF ESTONIAN >60 >=6 0 mL/min/1.73m 2 [facility] Urea nitrogen [Mass/Vol] 23 mg/dL High 7.0 - 18.0 mg/dL [facility] Urea nitrogen/Creatinine [Mass ratio] 21.3 mg/mg [facility] WITH AUTO DIFFon BASOPHILS ABSOLUTE AUTO 0.1 N [facility] Basophils/100 WBC (Bld) 0.8 % 0.2 - 2.0 % [facility] Eosinophils/100 WBC (Bld) 7.1 % High 0.9 - 7.0 % [facility] Erythrocyte distribution width (RBC) [Ratio] 13.2 % 11.0 - 15.0 % [facility] Hematocrit (Bld) [Volume fraction] 39.4 % Low 42.0 - 54.0 % [facility] Hemoglobin (Bld) [Mass/Vol] 13.4 g/dL Low 14.0 - 18.0 g/dL [facility] IMMATURE GRANULOCYTES ABS AUTO 0.07 High [facility] Immature granulocytes/100 WBC (Bld) 1.2 % High 0.0 - 0.5 % [facility] Interpretation and review of laboratory results Abnormal [facility] LYMPHOCYTES ABSOLUTE AUTO 2 [facility] Lymphocytes/100 WBC (Bld) 32.4 % 20.5 - 60.0 % [facility] MCH (RBC) [Entitic mass] 29.6 pg 25. 9 - 34.0 pg [facility] MCHC (RBC) [Mass/Vol] 34 g/dL 29.9 - 35.2 g/dL [facility] MCV (RBC) [Entitic vol] 87 fL 80.0 - 94.0 fL [facility] MONOCYTES ABSOLUTE AUTO 0.4 N [facility] Monocytes/100 WBC (Bld) 6.4 % 1.7 - 12.0 % [facility] NEUTROPHILS ABSOLUTE AUTO 3.2 [facility] Neutrophils/100 WBC (Bld) 52.1 % 43.0 - 75.0 % [facility] Platelet mean volume (Bld) [Entitic vol] 10.5 fL 9.5 - 13.5 fL [facility] TBH EO # 0.4 [facility] TBH PLT 173 [facility] RBC 4.53 Low [facility] WBC 6.1 [facility] ALL LIPID PROFILE (FASTING)o n 01-25-2024 CHOL HDL RATIO 3.4 [facility] Comment on above: 3.3 - 4.4 LOW RISK 4.4 - 7.1 AVERAGE RISK 7.1 - 11.0 MODERATE RISK >11.0 HIGH RISK Cholesterol [Mass/Vol] 149 mg/dL NINF - 200 mg/dL [facility] Cholesterol in HDL [Mass/Vol] 44 mg/dL 40 - 60 mg/dL [facility] Comment on above: > or =60 mg/dl - LOW CARDIOVASCULAR RISK <40 mg/dl - HIGH CARDIOVASCULAR RISK Magnesium [Mass/Vol] 70.0 mg/dL [facility] Comment on above: <100 mg/dl OPTIMAL 100-129 mg/dl NEAR OR ABOVE OPTIMAL 130-159 mg/dl BORDERLINE HIGH 160-189 mg/dl HIGH >190 mg/dl VERY HIGH Magnesium [Mass/Vol] 35.6 mg[facility] Triglyceride [Mass/Vol] 178 mg/dL High NINF - 150 mg/dL [facility] CCF CMP (CMP) (FOR REMOTE FH C USE)on 01-25-2024 Albumin [Mass/Vol] 3.3 g/dL Low 3.4 - 5.0 g/dL [facility] ALBUMIN GLOBULIN RATIO 0.8 NO [facility] ALP [Catalytic activity/Vol] 63 U/L 46 - 116 U/L [facility] ALT [Catalytic activity/Vol] 46 U/L 16 - 63 U/L [facility] Anion gap [Moles/Vol] 13.2 mmol/L NO [facility] AST [Catalytic activity/Vol] 21 U/L 15 - 37 U/L [facility] Bilirubin [Mass/Vol] 1.0 mg/dL 0.2 - 1 .0 mg/dL [facility] Calcium [Mass/Vol] 8.8 mg/dL 8.5 - 10. 1 mg/dL [facility] Chloride [Moles/Vol] 103 mmol/L 98 - 10 7 mmol/L [facility] CO2 [Moles/Vol] 27.3 mmol/L 21.0 - 32.0 mmol/L [facility] Creatinine [Mass/Vol] 1.09 mg/dL 0.70 - 1.30 mg/dL [facility] GFR/1.73 sq M.predicted CKD-EPI (S/P/Bld) [Vol rate/Area] >60 60 - PINF [facility] Globulin (S) [Mass/Vol] 4.0 g/dL N [facility] Glucose [Mass/Vol] 147 mg/dL High 74 - 106 mg/dL [facility] Potassium [Moles/Vol] 4.5 mmol/L 3.5 - 5.1 mmol/L [facility] Protein [Mass/Vol] 7.3 g/dL 6.4 - 8.2 g/dL [facility] Sodium [Moles/Vol] 139 mmol/L 136 - 145 mmol/L [facility] TBH EGFR-NON AF ESTONIAN >60 60 - PINF [facility] Urea nitrogen [Mass/Vol] 28.0 mg/dL High 7.0 - 18.0 mg/dL [facility] Urea nitrogen/Creatinine [Mass ratio] 25.7 mg/mg [facility] No Panel Informationon 01-24 Interpretation and review of laboratory results Abnormal [facility] Glucose Glucometer (BldC) [M ass/Vol]Ordered By: Silver Briceño on 09-10-2022 Glucose [Mass/Vol] 137 mg/dL [facility] Comment on above: Random Glucose Refer ence Range is dependent on time and content of last meal. Glucose of more than 200 mg/dL in a nonstressed, ambulatory subject supports the diagnosis of Diabetes Mellitus. Glucose [Mass/Vol] 131 mg/dL [facility] Comment on above: Random Glucose Refer ence Range is dependent on time and content of last meal. Glucose of more than 200 mg/dL in a nonstressed, ambulatory subject supports the diagnosis of Diabetes Mellitus. Glucose Poct Glucometerson 0 09-10-2022 Glucose [Mass/Vol] 137 mg/dL Normal [facility] Comment on above: Result Comment: [place] Glucose Reference Range is dependent on time and content of last meal. Glucose of more than 200 mg/dL in a nonstressed, ambulatory subject supports the diagnosis of Diabetes Mellitus. PERFORMED BY: [facility] [address] [facility] [place] [address] PATHOLOGIST SENIOR RESEARCH ASSOCIATE TEOFILO KHAN M.D. Performed By: #### G LULS #### Point of Care testing , Glucose [Mass/Vol] 131 mg/dL Normal [facility] Comment on above: Result Comment: [place] Glucose Reference Range is dependent on time and content of last meal. Glucose of more than 200 mg/dL in a nonstressed, ambulatory subject supports the diagnosis of Diabetes Mellitus. PERFORMED BY: [facility] [address] [facility] [place] [address] PATHOLOGIST SENIOR RESEARCH ASSOCIATE TEOFILO KHAN M.D. Performed By: #### G LULS #### Point of Care testing , Basic Metabolic Panelon - Anion gap [Moles/Vol] 13.5 mmol/L Normal 6.0-15.0 [facility] Comment on above: Performed By: #### C BC, BMP #### [facility] [address] [place] [address] [place] Calcium [Mass/Vol] 9.4 mg/dL Normal 8.6-10.3 [facility] Comment on above: Result Comment: PERF ORMED BY: [place] [address] PATHOLOGIST SENIOR RESEARCH ASSOCIATE TEOFILO KHAN M.D. Performed By: #### C BC, BMP #### [facility] [address] [place] [address] [place] Chloride [Moles/Vol] 102 mmol/L Normal 98-107 [facility] Comment on above: Performed By: #### C BC, BMP #### [facility] [address] [place] [address] [place] CO2 [Moles/Vol] 28.5 mmol/L Normal 21.0-31.0 [facility] Comment on above: Performed By: #### C BC, BMP #### [facility] [address] [place] [address] [place] Creatinine [Mass/Vol] 0.99 mg/dL Normal 0.70-1.30 [facility] Comment on above: Performed By: #### C BC, BMP #### [facility] [address] [place] [address] [place] GFR/1.73 sq M.predicted MDRD (S/P/Bld) [Vol rate/Area] mL/min/{1.73_m2} Normal [facility] Comment on above: Performed By: #### C BC, BMP #### [facility] [address] [place] [address] [place] Glucose [Mass/Vol] 114 mg/dL High 70-100 [facility] Comment on above: Result Comment: [place] Glucose Reference Range is dependent on time and content of last meal. Glucose of more than 200 mg/dL in a nonstressed, ambulatory subject supports the diagnosis of Diabetes Mellitus. ADA recommended reference range Performed By: #### C BC, BMP #### [facility] [address] Potassium [Moles/Vol] 4.0 mmol/L Normal 3.5-5.1 [facility] Comment on above: Performed By: #### C BC, BMP #### [facility] [address] Sodium [Moles/Vol] 140 mmol/L Normal 136-145 [facility] Comment on above: Performed By: #### C BC, BMP #### [facility] [address] Urea nitrogen [Mass/Vol] 21 mg/dL Normal 7-25 [facility] Comment on above: Performed By: #### C BC, BMP #### [facility] [address] Basophils Auto (Bld) [#/Vol] Ordered By: Silver Briceño on 08-30-2022 Basophils (Bld) [#/Vol] 0.0 10*3/uL 0.0-0.2 [facility] Basophils/100 WBC Auto (Bld) Ordered By: Silver Briceño on 08-30-2022 Basophils/100 WBC (Bld) 0.7 % . F [facility] Calcium [Mass/volume] in Ser um or PlasmaOrdered By: Silver Briceño on 08-30-2022 Calcium [Mass/Vol] 9.4 mg/dL 8.6-10.3 [facility] Carbon dioxide, total [Moles /volume] in Serum or PlasmaOrdered By: Silver Briceño on 08-30-2022 CO2 [Moles/Vol] 28.5 mmol/L 21.0-31.0 [facility] Chloride [Moles/volume] in S gela or PlasmaOrdered By: Silver Briceño on 08-30-2022 Chloride [Moles/Vol] 102 mmol/L 98-107 [facility] Complete Blood Count Auto Di ffon 08-30-2022 Basophils (Bld) [#/Vol] 0.0 10*3/uL Normal 0.0-0.2 [facility] Comment on above: Result Comment: PERF ORMED BY: [place] [address] PATHOLOGIST SENIOR RESEARCH ASSOCIATE TEOFILO KHAN M.D. Performed By: #### C BC, BMP #### [facility] [address] Basophils/100 WBC (Bld) 0.7 % Normal . F [facility] Comment on above: Performed By: #### C BC, BMP #### [facility] [address] Eosinophils (Bld) [#/Vol] 0.3 10*3/uL Normal 0.0-0.45 [facility] Comment on above: Performed By: #### C BC, BMP #### [address] Eosinophils/100 WBC (Bld) 6.1 % Normal . [facility] Comment on above: Performed By: #### C BC, BMP #### [address] Erythrocyte distribution width (RBC) [Ratio] 14.5 % Normal 12.0-14.8 [facility] Comment on above: Performed By: #### C BC, BMP #### [address] Hematocrit (Bld) [Volume fraction] 36.5 % Low 38.8-50.0 [facility] Comment on above: Performed By: #### C BC, BMP #### [address] Hemoglobin (Bld) [Mass/Vol] 12.5 g/dL Low 13.0-17.0 [facility] Comment on above: Performed By: #### C BC, BMP #### [address] Lymphocytes (Bld) [#/Vol] 1.8 10*3/uL Normal 1.00-4.8 [facility] Comment on above: Performed By: #### C BC, BMP #### [address] Lymphocytes/100 WBC (Bld) 35.5 % Normal . [facility] Comment on above: Performed By: #### C BC, BMP #### [address] MCH (RBC) [Entitic mass] 29.2 pg Normal 27.5-35.2 [facility] Comment on above: Performed By: #### C BC, BMP #### [address] MCV (RBC) [Entitic vol] 85.1 fL Normal 83.5-101 F [facility] Comment on above: Performed By: #### C BC, BMP #### [address] Mean Corpuscular HGB Conc 34.3 g/dL Normal 32.5-35.6 [facility] Comment on above: Performed By: #### C BC, BMP #### [address] Monocytes (Bld) [#/Vol] 0.4 10*3/uL Normal 0.0-0.8 [facility] Comment on above: Performed By: #### C BC, BMP #### [address] Monocytes/100 WBC (Bld) 8.2 % Normal . F [facility] Comment on above: Performed By: #### C BC, BMP #### [address] Neutrophils (Bld) [#/Vol] 2.5 10*3/uL Normal 1.8-7.7 [facility] Comment on above: Performed By: #### C BC, BMP #### [address] Neutrophils/100 WBC (Bld) 49.5 % Normal . [facility] Comment on above: Performed By: #### C BC, BMP #### [address] NRBC% 0.2 /100{WBC} Normal 0-0.5 [facility] Comment on above: Performed By: #### C SAI, BMP #### [facility] [address] Platelet mean volume (Bld) [Entitic vol] 8.8 fL Normal 6.6-10.1 [facility] Comment on above: Performed By: #### C SAI, BMP #### [address] Platelets (Bld) [#/Vol] 155 10*3/uL Normal 150-450 [facility] Comment on above: Performed By: #### C SAI, BMP #### [address] RBC (Bld) [#/Vol] 4.29 10*6/uL Normal 3.90-5.60 [facility] Comment on above: Performed By: #### C SAI, BMP #### [address] WBC (Bld) [#/Vol] 5.1 10*3/uL Normal 4.1-10.5 [facility] Comment on above: Performed By: #### Rina GIBBS, BMP #### [address] Creatinine [Mass/volume] in Serum or PlasmaOrdered By: Silver Briceño on 08-30-2022 Creatinine [Mass/Vol] 0.99 mg/dL 0.70-1.30 [facility] ECG 12 lead ECGon 08-30-2022 ECG 12 lead ECG [facility] [place] [address] [place] [address] Electrocardiograph Report Signed Patient: Lavern Escobedo MR#: [id number] : 1965 Acct:[id number] Age/Sex: 57 / M ADM Date: 08/30/22 Loc: Room: Type: [facility] Attending Dr: Silver Briceño DO [...] previous ECGs available Confirmed by [id number] on 08/31/2022 12:23:25 PM Referred By: KEYANNA Electronically Signed By:LEANNA LOVE MD [facility] Transcribed By: ESTELLE Signed By Leo Love MD 08/31/22 1223 Normal [facility] Eosinophils Auto (Bld) [#/Vo l]Ordered By: Silver Briceño on 08-30-2022 Eosinophils (Bld) [#/Vol] 0.3 10*3/uL 0.0-0.45 [facility] Eosinophils/100 WBC Auto (Bl d)Ordered By: Silver Briceño on 08-30-2022 Eosinophils/100 WBC (Bld) 6.1 % . [facility] Erythrocyte distribution wid th Auto (RBC) [Ratio]Ordered By: Silver Briceño on 08-30-2022 Erythrocyte distribution width (RBC) [Ratio] 14.5 % 12.0-14.8 [facility] Glucose [Mass/volume] in Ser um or PlasmaOrdered By: Silver Briceño on 08-30-2022 Glucose [Mass/Vol] 114 mg/dL 70-100 [facility] Comment on above: ADA recommended refe rence rangeRandom Glucose Reference Range is dependent on time and content of last meal. Glucose of more than 200 mg/dL in a nonstressed, ambulatory subject supports the diagnosis of Diabetes Mellitus. Hematocrit Auto (Bld) [Volum e fraction]Ordered By: Silver Briceño on 08-30-2022 Hematocrit (Bld) [Volume fraction] 36.5 % 38.8-50.0 [facility] Hemoglobin [Mass/volume] in BloodOrdered By: Silver Briceño on 08-30-2022 Hemoglobin (Bld) [Mass/Vol] 12.5 g/dL 13.0-17.0 [facility] Leukocytes [#/volume] correc shashi for nucleated erythrocytes in Blood by Automated counOrdered By: Silver Briceño on 08-30-2022 WBC corrected for nucl RBC Auto (Bld) [#/Vol] 5.1 10*3/uL 4.1-10.5 [facility] Lymphocytes Auto (Bld) [#/Vo l]Ordered By: Silver Briceño on 08-30-2022 Lymphocytes (Bld) [#/Vol] 1.8 10*3/uL 1.00-4.8 [facility] Lymphocytes/100 WBC Auto (Bl d)Ordered By: Silver Briceño on 08-30-2022 Lymphocytes/100 WBC (Bld) 35.5 % . [facility] MCH Auto (RBC) [Entitic mass ]Ordered By: Silver Briceño on 08-30-2022 MCH (RBC) [Entitic mass] 29.2 pg 27.5-35.2 [facility] MCHC Auto (RBC) [Mass/Vol]Or dered By: Silver Briceño on 08-30-2022 MCHC (RBC) [Mass/Vol] 34.3 g/dL 32.5-35.6 [facility] MCV Auto (RBC) [Entitic vol] Ordered By: Silver Briceño on 08-30-2022 MCV (RBC) [Entitic vol] 85.1 fL 83.5-101 F [facility] Monocytes Auto (Bld) [#/Vol] Ordered By: Silver Briceño on 08-30-2022 Monocytes (Bld) [#/Vol] 0.4 10*3/uL 0.0-0.8 [facility] Monocytes/100 WBC Auto (Bld) Ordered By: Silver Briceño on 08-30-2022 Monocytes/100 WBC (Bld) 8.2 % . F [facility] Neutrophils Auto (Bld) [#/Vo l]Ordered By: Silver Briceño on 08-30-2022 Neutrophils (Bld) [#/Vol] 2.5 10*3/uL 1.8-7.7 [facility] Neutrophils/100 WBC Auto (Bl d)Ordered By: Silver Briceño on 08-30-2022 Neutrophils/100 WBC (Bld) 49.5 % . [facility] No Panel InformationOrdered By: Silver Briceño on 08-30-2022 Estimated GFR (CKD-EPI) > 60.0 mL/Min [facility] Creatinine Clearance (Chem N/A [facility] Nucleated erythrocytes [Pres ence] in Blood by Automated countOrdered By: Silver Briceño on 08-30-2022 Nucleated RBC Auto Ql (Bld) 0.2 /100{WBC} 0-0.5 [facility] Platelet mean volume Auto (B ld) [Entitic vol]Ordered By: Silver Briceño on 08-30-2022 Platelet mean volume (Bld) [Entitic vol] 8.8 fL 6.6-10.1 [facility] Platelets Auto (Bld) [#/Vol] Ordered By: Silver Briceño on 08-30-2022 Platelets (Bld) [#/Vol] 155 10*3/uL 150-450 [facility] Potassium [Moles/volume] in Serum or PlasmaOrdered By: Silver Briceño on 08-30-2022 Potassium [Moles/Vol] 4.0 mmol/L 3.5-5.1 [facility] RBC Auto (Bld) [#/Vol]Ordere d By: Silver Briceño on 08-30-2022 RBC (Bld) [#/Vol] 4.29 10*6/uL 3.90-5.60 [facility] Serum or plasma anion gap de terminationOrdered By: Silver Briceño on 08-30-2022 Anion gap [Moles/Vol] 13.5 mmol/L 6.0-15.0 [facility] Sodium [Moles/volume] in Ser um or PlasmaOrdered By: Silver Briceño on 08-30-2022 Sodium [Moles/Vol] 140 mmol/L 136-145 [facility] Urea nitrogen [Mass/volume] in Serum or PlasmaOrdered By: Silver Briceño on 08-30-2022 Urea nitrogen [Mass/Vol] 21 mg/dL 7-25 [facility] WBC Auto (Bld) [#/Vol]Ordere d By: Silver Briceño on 08-30-2022 WBC (Bld) [#/Vol] 5.1 10*3/uL 4.1-10.5 [facility] GLYCOHEMOGLOBIN A1Con 2022 ADA RECOMMENDATION SEE BELOW Normal [facility] Comment on above: Result Comment: ADA RECOMMENDED LIMIT 4.0 - 6.0 ADA THERAPEUTIC TARGET < 7.0 ACTION SUGGESTED > 7.0 Performed By: #### A 1C #### [facility] [address] [place] [address] Dr. Idania Tai Glucose [Mass/Vol] 243 mg/dL Normal [facility] Comment on above: Performed By: #### A 1C #### [facility] [address] [place] [address] Dr. Idania Tai HbA1c (Bld) [Mass fraction] 10.1 % Critically high 4.5-6.2 [facility] Comment on above: Performed By: #### A 1C #### [facility] [address] [place] [address] Dr. Idania Tai LIPID PROFILEon 07-07-2022 CHOL-HDL RATIO NORM SEE BELOW Normal [facility] Comment on above: Result Comment: 3.3 - 4.4 LOW RISK 4.4 - 7.1 AVERAGE RISK 7.1 - 11.0 MODERATE RISK >11.0 HIGH RISK Performed By: #### B MP, LIPID #### [facility] [address] [place] [address] Dr. Idania Tai Cholesterol [Mass/Vol] 172 mg/dL Normal <=200 [facility] Comment on above: Performed By: #### B MP, LIPID #### [facility] [address] [place] [address] Dr. Idania Tai Cholesterol in HDL [Mass/Vol] 48 mg/dL Normal 40-60 [facility] Comment on above: Performed By: #### B MP, LIPID #### [facility] [address] [place] [address] Dr. Idania Tai Cholesterol in LDL [Mass/Vol] 95.6 mg/dL Normal [facility] Comment on above: Performed By: #### B MP, LIPID #### [facility] [address] [place] [address] [address] Idania Tai Cholesterol.total/Choles terol in HDL [Mass ratio] 3.6 {ratio} Normal [facility] Comment on above: Performed By: #### B MP, LIPID #### [facility] [address] [place] [address] [address] Idania Tai HDL NORMAL > or = 60 mg/dl - LOW CARDIOVASCULAR RISK <40 mg/dl - HIGH CARDIOVASCULAR RISK Normal [facility] Comment on above: Performed By: #### B MP, LIPID #### [facility] [address] [place] [address] Dr. Idania Tai LDL CALC NORMAL SEE BELOW Normal [facility] Comment on above: Result Comment: <100 mg/dl OPTIMAL 100 - 129 mg/dl NEAR OR ABOVE OPTIMAL 130 - 159 mg/dl BORDERLINE HIGH 160 - 189 mg/dl HIGH >190 mg/dl VERY HIGH Performed By: #### B MP, LIPID #### [facility] [address] [place] [address] Dr. Idania Tai Triglyceride [Mass/Vol] 142 mg/dL Normal <=150 [facility] Comment on above: Performed By: #### B MP, LIPID #### [facility] [address] [place] [address] Dr. Idania Tai VLDL CALC 28.4 mg/dL Normal [facility] Comment on above: Performed By: #### B MP, LIPID #### [facility] [address] [place] [address] Dr. Idania Tai PROF CHEM 8 (BAS METB)on Anion gap [Moles/Vol] 11.0 mmol/L Normal [facility] Comment on above: Performed By: #### B MP, LIPID #### [facility] [address] [place] [address] Dr. Idania Tai Calcium [Mass/Vol] 9.1 mg/dL Normal 8.5-10.1 [facility] Comment on above: Performed By: #### B MP, LIPID #### [facility] [address] [place] [address] Dr. Idania Tai Chloride [Moles/Vol] 100 mmol/L Normal 98-107 [facility] Comment on above: Performed By: #### B MP, LIPID #### [facility] [address] [place] [address] Dr. Idania Tai CO2 [Moles/Vol] 32.6 mmol/L Critically high 21.0-32.0 [facility] Comment on above: Performed By: #### B MP, LIPID #### [facility] [address] [place] [address] Dr. Idania Tai Creatinine [Mass/Vol] 0.81 mg/dL Normal 0.70-1.30 [facility] Comment on above: Performed By: #### B MP, LIPID #### [facility] [address] [place] [address] Dr. Idania Tai EGFR-AF ESTONIAN >60 Normal >=60 [facility] Comment on above: Performed By: #### B MP, LIPID #### [facility] [address] [place] [address] Dr. Idania Tai EGFR-NON AF ESTONIAN >60 Normal >=60 [facility] Comment on above: Performed By: #### B MP, LIPID #### [facility] [address] [place] [address] Dr. Idania Tai Glucose [Mass/Vol] 157 mg/dL Critically high 74-106 [facility] Comment on above: Performed By: #### B MP, LIPID #### [facility] [address] [place] [address] Dr. Idania Tai Potassium [Moles/Vol] 3.6 mmol/L Normal 3.5-5.1 [facility] Comment on above: Performed By: #### B MP, LIPID #### [facility] [address] [place] [address] Dr. Idania Tai Sodium [Moles/Vol] 140 mmol/L Normal 136-145 [facility] Comment on above: Performed By: #### B MP, LIPID #### [facility] [address] [place] [address] Dr. Idania Tai Urea nitrogen [Mass/Vol] 16.0 mg/dL Normal 7.0-18.0 [facility] Comment on above: Performed By: #### B MP, LIPID #### [facility] [address] [place] [address] Dr. Idania Tai Urea nitrogen/Creatinine [Mass ratio] 19.8 mg/mg Normal [facility] Comment on above: Performed By: #### B MP, LIPID #### [facility] [address] [place] [address] Dr. Idania Tai PROF CHEM 8 (BAS METB)on Anion gap [Moles/Vol] 16.1 mmol/L Normal [facility] Comment on above: Performed By: #### B MP #### [facility] [address] [place] [address] Dr. Idania Tai Calcium [Mass/Vol] 9.4 mg/dL Normal 8.5-10.1 [facility] Comment on above: Performed By: #### B MP #### [facility] [address] [place] [address] Dr. Idania Tai Chloride [Moles/Vol] 98 mmol/L Normal 98-107 [facility] Comment on above: Performed By: #### B MP #### [facility] [address] [place] [address] Dr. Idania Tai CO2 [Moles/Vol] 26.0 mmol/L Normal 21.0-32.0 [facility] Comment on above: Performed By: #### B MP #### [facility] [address] [place] [address] Dr. Idania Tai Creatinine [Mass/Vol] 0.78 mg/dL Normal 0.70-1.30 [facility] Comment on above: Performed By: #### B MP #### [facility] [address] [place] [address] Dr. Idania Tai EGFR-AF ESTONIAN >60 Normal >=60 [facility] Comment on above: Performed By: #### B MP #### [facility] [address] [place] [address] Dr. Idania Tai EGFR-NON AF ESTONIAN >60 Normal >=60 [facility] Comment on above: Performed By: #### B MP #### [facility] [address] [address] [address] Idania Tai Glucose [Mass/Vol] 131 mg/dL Critically high 74-106 [facility] Comment on above: Performed By: #### B MP #### [facility] [address] [address] [address] Idania Tai Potassium [Moles/Vol] 4.1 mmol/L Normal 3.5-5.1 [facility] Comment on above: Performed By: #### B MP #### [facility] [address] [address] [address] Idania Tai Sodium [Moles/Vol] 136 mmol/L Normal 136-145 [facility] Comment on above: Performed By: #### B MP #### [facility] [address] [address] [address] Idania Tai Urea nitrogen [Mass/Vol] 19.0 mg/dL Critically high 7.0-18 .0 [facility] Comment on above: Performed By: #### B MP #### [facility] [address] [address] [address] Idania Tai Urea nitrogen/Creatinine [Mass ratio] 24.4 mg/mg Normal [facility] Comment on above: Performed By: #### B MP #### [facility] [address] [address] [address] Idania Tai Glucose Glucometer (dC) [M ass/Vol]Ordered By: Sav Andrews on 12-22-2021 Glucose [Mass/Vol] 113 mg/dL [facility] Comment on above: Random Glucose Refer ence Range is dependent on time and content of last meal. Glucose of more than 200 mg/dL in a nonstressed, ambulatory subject supports the diagnosis of Diabetes Mellitus. Glucose Poct Glucometerson 0 12-22-2021 Glucose [Mass/Vol] 113 mg/dL Normal [facility] Comment on above: Result Comment: [place] om Glucose Reference Range is dependent on time and content of last meal. Glucose of more than 200 mg/dL in a nonstressed, ambulatory subject supports the diagnosis of Diabetes Mellitus. PERFORMED BY: [facility] [address] [place] [address] PATHOLOGIST SENIOR RESEARCH ASSOCIATE TEOFILO KHAN M.D. Performed By: #### G [...] developed and its performance characteristic determined by [employer] and validated at [facility]. This test has not been [...] for SARS Antigen by SIN PERFORMED BY: [facility] [address] [place] [address] PATHOLOGIST SENIOR RESEARCH ASSOCIATE TEOFILO KHAN M.D. Normal [facility] Comment on above: Performed By: #### C OVID-19 MAYRA, SOFIANEG #### [facility] [address] COVID-19 SOFIAOrdered By: Bebe Andrews on 12-20-2021 SARS-CoV+SARS-CoV-2 (COVID-19) Ag IA.rapid Ql (Resp) Negative Negative [facility] Comment on above: This is a duplicate Mayra SARS Antigen (SIN) result to be used for statistical tracking purpose only. No Panel InformationOrdered By: Sav Andrews on 12-20-2021 SARS Antigen (LFIA) [facility] Mayra Ag Negativeon 12-21-19 Mayra Ag Negative Negative Normal Negative [facility] Comment on above: Result Comment: This is a duplicate Mayra SARS Antigen (SIN) result to be used for statistical tracking purpose only. PERFORMED BY: [facility] [address] [place] [address] PATHOLOGIST SENIOR RESEARCH ASSOCIATE TEOFILO KHAN M.D. Performed By: #### C OVID-19 MAYRA, SOFIANEG #### [facility] [address] ANKLE RT WO CONon 022 [...] severe tricompartmental osteoarthropathy of the knee with crch-[id number] articulation of the lateral compartment. SOFT TISSUES: Negative. No visible soft tissue swelling. EFFUSION: None visible. OTHER: Negative. IMPRESSION: Progression of subchondral degenerative cystic changes of the tibial plafond and calcaneus Moderate to severe knee osteoarthritis with iwfd-jh-gqjf articulation of the lateral compartment Electronically authenticated by: GERA BLUM Date: 2021-11-14 16:32 Normal [facility] CBC AUTO DIFFon 09-11-2021 BASO # 0.1 103/ul Normal 0.0-0.1 [facility] Comment on above: Performed By: #### C BC ####[facility] [address] [address]Dr. Idania Tai Basophils/100 WBC (Bld) 0.8 % Normal 0.2-2.0 [facility] Comment on above: Performed By: #### C BC ####[facility] [address] [address]Dr. Idania Tai EO # 0.2 103/ul Normal 0.0-0.7 [facility] Comment on above: Performed By: #### C BC ####[facility] [address] [address]Dr. Idania Tai Eosinophils/100 WBC (Bld) 2.2 % Normal 0.9-7.0 [facility] Comment on above: Performed By: #### C BC ####[facility] [address] [address]Dr. Idania Tai Erythrocyte distribution width (RBC) [Ratio] 13.1 % Normal 11.0-15.0 [facility] Comment on above: Performed By: #### C BC ####[facility] [address] [address]Dr. Idania Tai Hematocrit (Bld) [Volume fraction] 44.5 % Normal 42.0-54.0 [facility] Comment on above: Performed By: #### C BC ####[facility] [address] [place], [place] [address]Dr. Idania Tai Hemoglobin (Bld) [Mass/Vol] 14.9 g/dL Normal 14.0-18.0 [facility] Comment on above: Performed By: #### C BC ####[facility] [address] [address]Dr. Earnestinegisselle Zaire IG # 0.13 10e3/ul Critically high 0.00-0.03 [facility] Comment on above: Performed By: #### C BC ####[facility] [address] [address]Dr. Idania Zaire IG % 1.5 % Critically high 0.0-0.[address] [facility] Comment on above: Performed By: #### C BC ####[facility] [address] [address]Dr. Idania Tai LYMPH # 2.4 103/ul Normal 1.2-3.8 [facility] Comment on above: Performed By: #### C BC ####[facility] [address] [place], [place] [address]Dr. Idania Tai Lymphocytes/100 WBC (Bld) 27.7 % Normal 20.5-60.0 [facility] Comment on above: Performed By: #### C BC ####[facility] [address] [place], [place] [address]Dr. Earnestinegisselle Tai MANUAL DIFF REQ NO Normal [facility] Comment on above: Performed By: #### C BC ####[facility] [address] [place], [place] [address]Dr. Idania Tai MCH (RBC) [Entitic mass] 28.9 pg Normal 25.9-34.0 [facility] Comment on above: Performed By: #### C BC ####[facility] [address] [address]Dr. Idania Zaire MCHC (RBC) [Mass/Vol] 33.5 g/dL Normal 29.9-35.2 [facility] Comment on above: Performed By: #### C BC ####[facility] [address] [address]Dr. Idania Zaire MCV (RBC) [Entitic vol] 86.4 fL Normal 80.0-94.0 [facility] Comment on above: Performed By: #### C BC ####[facility] [address] [place], [place] [id number]. Idania Tai MONO # 0.6 103/ul Normal 0.3-0.8 [facility] Comment on above: Performed By: #### C BC ####[facility] [address] [id number]. Idania Tai Monocytes/100 WBC (Bld) 6.4 % Normal 1.7-12.0 [facility] Comment on above: Performed By: #### C BC ####[facility] [address] [address]Dr. Idania Tai NEUT # 5.3 103/ul Normal 1.4-6.5 [facility] Comment on above: Performed By: #### C BC ####[facility] [address] [address]Dr. Idania Tai Neutrophils/100 WBC (Bld) 61.4 % Normal 43.0-75.0 [facility] Comment on above: Performed By: #### C BC ####[facility] [address] [place] [address]Dr. Idania Tai Platelet mean volume (Bld) [Entitic vol] 9.7 fL Normal 9.5-13.5 [facility] Comment on above: Performed By: #### C BC ####[facility] [address] [id number]. Idania Tai PLT 219 103/ul Normal 150-450 [facility] Comment on above: Performed By: #### C BC ####[facility] [address] [place], [place] [id number]. Idania Tai RBC 5.15 106/ul Normal 4.70-6.10 [facility] Comment on above: Performed By: #### C BC ####[facility] [address] [place], [place] [address]Dr. Idania Tai WBC 8.6 103/ul Normal 4.0-11.0 [facility] Comment on above: Performed By: #### C BC ####[facility] [address] [address]Dr. Idania Tai GLYCOHEMOGLOBIN A1Con 2021 ADA RECOMMENDATION ADA THERAPEUTIC TARGET 6.0 - 7.0 ACTION SUGGESTED > 7.0 Normal [facility] Comment on above: Performed By: #### A 1C ####[facility] [address] [place], [place] [address]RcAlly Tai Glucose [Mass/Vol] 128 mg/dL Normal [facility] Comment on above: Performed By: #### A 1C ####[facility] [address] [place], [place] [address]VcAlly Tai HbA1c (Bld) [Mass fraction] 6.1 % Critically high <=6.0 [facility] Comment on above: Performed By: #### A 1C ####[facility] [address] [address]DrAlly Tai LIPID PROFILEon 09-11-2021 CHOL-HDL RATIO NORM SEE BELOW Normal [facility] Comment on above: Result Comment: 3.3 - 4.4 LOW RISK 4.4 - 7.1 AVERAGE RISK 7.1 - 11.0 MODERATE RISK >11.0 HIGH RISK Performed By: #### L IPID, CMP #### [facility] [address] [address] [address] Idania Tai Cholesterol [Mass/Vol] 175 mg/dL Normal <=200 [facility] Comment on above: Performed By: #### L IPID, CMP #### [facility] [address] [address] [address] Idania Tai Cholesterol in HDL [Mass/Vol] 54 mg/dL Normal 40-60 [facility] Comment on above: Performed By: #### L IPID, CMP #### [facility] [address] [address] [address] Idania Tai Cholesterol in LDL [Mass/Vol] 87.2 mg/dL Normal [facility] Comment on above: Performed By: #### L IPID, CMP #### [facility] [address] [address] [address] Idania Tai Cholesterol.total/Choles terol in HDL [Mass ratio] 3.2 {ratio} Normal [facility] Comment on above: Performed By: #### L IPID, CMP #### [facility] [address] [address] [address] Idania Tai HDL NORMAL > or = 60 mg/dl - LOW CARDIOVASCULAR RISK <40 mg/dl - HIGH CARDIOVASCULAR RISK Normal [facility] Comment on above: Performed By: #### L IPID, CMP #### [facility] [address] [address] [address] Idania Tai LDL CALC NORMAL SEE BELOW Normal [facility] Comment on above: Result Comment: <100 mg/dl OPTIMAL 100 - 129 mg/dl NEAR OR ABOVE OPTIMAL 130 - 159 mg/dl BORDERLINE HIGH 160 - 189 mg/dl HIGH >190 mg/dl VERY HIGH Performed By: #### L IPID, CMP #### [facility] [address] [address] [address] Idania Tai Triglyceride [Mass/Vol] 169 mg/dL Critically high <=150 [facility] Comment on above: Performed By: #### L IPID, CMP #### [facility] [address] [address] [address] Idania Tai VLDL CALC 33.8 mg/dL Normal [facility] Comment on above: Performed By: #### L IPID, CMP #### [facility] [address] [place] [address] Dr. Idania Tai MICROALBUMIN, RAND URon 04- mALB 1.9 mg/L Normal <=30.0 [facility] Comment on above: Performed By: #### M ALBR #### [facility] [address] [place] [address] Dr. Idania Tai PROF 14(COMP METB)on 022 Albumin [Mass/Vol] 3.7 g/dL Normal 3.4-5.0 [facility] Comment on above: Performed By: #### L IPID, CMP #### [facility] [address] [place] [address] Dr. Idania Tai Albumin/Globulin [Mass ratio] 0.9 {ratio} Normal [facility] Comment on above: Performed By: #### L IPID, CMP #### [facility] [address] [address] [address] Idania Tai ALP [Catalytic activity/Vol] 73 U/L Normal 46-116 [facility] Comment on above: Performed By: #### L IPID, CMP #### [facility] [address] [address] [address] Idania Tai ALT [Catalytic activity/Vol] 68 U/L Critically high 16-63 [facility] Comment on above: Performed By: #### L IPID, CMP #### [facility] [address] [address] [address] Idania Tai Anion gap [Moles/Vol] 10.2 mmol/L Normal [facility] Comment on above: Performed By: #### L IPID, CMP #### [facility] [address] [place] [address] Dr. Idania Tai AST [Catalytic activity/Vol] 30 U/L Normal 15-37 [facility] Comment on above: Performed By: #### L IPID, CMP #### [facility] [address] [address] [address] Idania Tai Bilirubin [Mass/Vol] 1.0 mg/dL Normal 0.2-1.3 [facility] Comment on above: Performed By: #### L IPID, CMP #### [facility] [address] [address] [address] Idania Tai Calcium [Mass/Vol] 8.5 mg/dL Normal 8.5-10.1 [facility] Comment on above: Performed By: #### L IPID, CMP #### [facility] [address] [address] [address] Idania Tai Chloride [Moles/Vol] 101 mmol/L Normal 98-107 [facility] Comment on above: Performed By: #### L IPID, CMP #### [facility] [address] [address] [address] Idania Tai CO2 [Moles/Vol] 31.6 mmol/L Critically high 22.0-30.0 [facility] Comment on above: Performed By: #### L IPID, CMP #### [facility] [address] [address] [address] Idania Tai Creatinine [Mass/Vol] 0.67 mg/dL Normal 0.66-1.25 [facility] Comment on above: Performed By: #### L IPID, CMP #### [facility] [address] [address] [address] Idania Tai EGFR-AF ESTONIAN >60 Normal >=60 [facility] Comment on above: Performed By: #### L IPID, CMP #### [facility] [address] [address] [address] Idania Tai EGFR-NON AF ESTONIAN >60 Normal >=60 [facility] Comment on above: Performed By: #### L IPID, CMP #### [facility] [address] [address] [address] Idania Tai Globulin (S) [Mass/Vol] 4.0 g/dL Normal [facility] Comment on above: Performed By: #### L IPID, CMP #### [facility] [address] [address] [address] Idania Tai Glucose [Mass/Vol] 114 mg/dL Critically high 74-106 [facility] Comment on above: Performed By: #### L IPID, CMP #### [facility] [address] [address] [address] Idania Tai Potassium [Moles/Vol] 4.8 mmol/L Normal 3.4-5.0 [facility] Comment on above: Performed By: #### L IPID, CMP #### [facility] [address] [address] [address] Idania Tai Protein [Mass/Vol] 7.7 g/dL Normal 6.1-8.2 [facility] Comment on above: Performed By: #### L IPID, CMP #### [facility] [address] [address] [address] Idania Tai Sodium [Moles/Vol] 138 mmol/L Normal 137-145 [facility] Comment on above: Performed By: #### L IPID, CMP #### [facility] [address] [address] [address] Idania Tai Urea nitrogen [Mass/Vol] 12.0 mg/dL Normal 7.0-18.0 [facility] Comment on above: Performed By: #### L IPID, CMP #### [facility] [address] [address] [address] Idania Tai Urea nitrogen/Creatinine [Mass ratio] 17.9 mg/mg Normal [facility] Comment on above: Performed By: #### L IPID, CMP #### [facility] [address] [address] [address] Idania Tai Vital Signs Date Time Vital Sign Value Performing Clinician Facility 12-31-2024 15:54-0400 Body mass index (BMI) [Ratio] 40.32 kg/m2 Luci Rios [employer] Work Phone: [facility] 12-31-2024 15:54-0400 Body temperature 97.81 [degF] Luci Blanca [employer] Work Phone: [facility] 12-31-2024 15:54-0400 Body weight 113.31 kg Luci Rios [employer] Work Phone: [facility] 12-31-2024 15:54-0400 Diastolic blood pressure 78 mm[Hg] Luci Blanca [employer] Work Phone: [facility] 12-31-2024 15:54-0400 Heart rate 56 /min Luci Alexsandrahleandroz [employer] Work Phone: [facility] 12-31-2024 15:54-0400 Respiratory rate 20 /min Luci Blanca [employer] Work Phone: [facility] 12-31-2024 15:54-0400 SaO2% (BldA) [Mass fraction] 96 % Luci Blanca [employer] Work Phone: [facility] 12-31-2024 15:54-0400 Systolic blood pressure 132 mm[Hg] Luci Jollyz [employer] Work Phone: [facility] 11-19-2024 15:43-0400 Body mass index (BMI) [Ratio] 39.67 kg/m2 Luci Briseidaholz [employer] Work Phone: [facility] 11-19-2024 15:43-0400 Body temperature 97.81 [degF] Luci Briseidaholz [employer] Work Phone: [facility] 11-19-2024 15:43-0400 Body weight 111.49 kg Luci Briseidaholz [employer] Work Phone: [facility] 11-19-2024 15:43-0400 Diastolic blood pressure 78 mm[Hg] Luci Briseidaholz [employer] Work Phone: [facility] 11-19-2024 15:43-0400 Heart rate 81 /min Luci Briseidaholz [employer] Work Phone: [facility] 11-19-2024 15:43-0400 Respiratory rate 18 /min Luci Briseidaholz [employer] Work Phone: [facility] 11-19-2024 15:43-0400 SaO2% (BldA) [Mass fraction] 96 % Luci Briseidaholz [employer] Work Phone: [facility] 11-19-2024 15:43-0400 Systolic blood pressure 124 mm[Hg] Luci Briseidaholz [employer] Work Phone: [facility] 10-08-2024 15:51-0400 Body mass index (BMI) [Ratio] 38.8 kg/m2 Luci Briseidaholz [employer] Work Phone: [facility] 10-08-2024 15:51-0400 Body temperature 98.71 [degF] Luci Briseidaholz [employer] Work Phone: [facility] 10-08-2024 15:51-0400 Body weight 109.05 kg Luci Alexsandrahholz [employer] Work Phone: [facility] 10-08-2024 15:51-0400 Diastolic blood pressure 80 mm[Hg] Luci Briseidaholz [employer] Work Phone: [facility] 10-08-2024 15:51-0400 Heart rate 67 /min Luci Aichholz [employer] Work Phone: [facility] 10-08-2024 15:51-0400 Respiratory rate 20 /min Luci Aichholz [employer] Work Phone: [facility] 10-08-2024 15:51-0400 SaO2% (BldA) [Mass fraction] 95 % Luci Aichholz [employer] Work Phone: [facility] 10-08-2024 15:51-0400 Systolic blood pressure 130 mm[Hg] Luci Aichholz [employer] Work Phone: [facility] 09-17-2024 16:06-0400 Body mass index (BMI) [Ratio] 38.54 kg/m2 Luci Alexsandrahholz [employer] Work Phone: [facility] 09-17-2024 16:06-0400 Body temperature 98.1 [degF] Luci Aichholz [employer] Work Phone: [facility] 09-17-2024 16:06-0400 Body weight 108.32 kg Luci Briseidaholz [employer] Work Phone: [facility] 09-17-2024 16:06-0400 Diastolic blood pressure 82 mm[Hg] Luci Aichholz [employer] Work Phone: [facility] 09-17-2024 16:06-0400 Heart rate 66 /min Luci Aichholz [employer] Work Phone: [facility] 09-17-2024 16:06-0400 Respiratory rate 18 /min Luci Aichholz [employer] Work Phone: [facility] 09-17-2024 16:06-0400 SaO2% (BldA) [Mass fraction] 97 % Luci Aichholz TICKET BR[employer]ER Work Phone: [facility] 09-17-2024 16:06-0400 Systolic blood pressure 140 mm[Hg] Luci Uptonmicheline TICKET BROKER Work Phone: [facility] 08-24-2024 15:27-0400 Body height 167.6 cm Abisai Boateng DPM Work Phone: [facility] 08-24-2024 15:27-0400 Body mass index (BMI) [Ratio] 39.09 kg/m2 Abisai Boateng DPM Work Phone: [facility] 08-24-2024 15:27-0400 Body weight 109.86 kg Abisai Boateng DPM Work Phone: [facility] 07-29-2024 15:27-0500 Body height 167.6 cm Luci Uptonmicheline [employer]ICK[employer] BROKER Work Phone: [facility] 07-29-2024 15:27-0500 Body mass index (BMI) [Ratio] 39.29 kg/m2 Luci Uptonmicheline [employer]ICK[employer] BROKER Work Phone: [facility] 07-29-2024 15:27-0500 Body temperature 97.81 [degF] Luci Blanca [employer]ER Work Phone: [facility] 07-29-2024 15:27-0500 Body weight 110.41 kg Luci Uptonmarkyz [employer] BR[employer]ER Work Phone: [facility] 07-29-2024 15:27-0500 Diastolic blood pressure 120 mm[Hg] Luci Blanca [employer]ER Work Phone: [facility] 07-29-2024 15:27-0500 Heart rate 76 /min Luci Rikz [employer] Work Phone: [facility] 07-29-2024 15:27-0500 Respiratory rate 20 /min Luci Rikz [employer]ER Work Phone: [facility] 07-29-2024 15:27-0500 SaO2% (BldA) [Mass fraction] 97 % Luci Blanca [employer] BR[employer]ER Work Phone: [facility] 07-29-2024 15:27-0500 Systolic blood pressure 172 mm[Hg] Luci Rios [employer] BR[employer]ER Work Phone: [facility] 04-27-2024 15:05-0500 Body height 167.6 cm Marquis Velasquez [employer]ER Work Phone: [facility] 04-27-2024 15:05-0500 Body mass index (BMI) [Ratio] 38.41 kg/m2 Marquis Velasquez [employer] BR[employer]ER Work Phone: [facility] 04-27-2024 15:05-0500 Body weight 107.96 kg Marquis Velasquez [employer] BR[employer]ER Work Phone: [facility] 04-27-2024 15:05-0500 Diastolic blood pressure 90 mm[Hg] Marquis Velasquez [employer] BR[employer]ER Work Phone: [facility] 04-27-2024 15:05-0500 Heart rate 67 /min Marquis Velasquez [employer] BR[employer]ER Work Phone: [facility] 04-27-2024 15:05-0500 Respiratory rate 14 /min Marquis Velasquez [employer] BR[employer]ER Work Phone: [facility] 04-27-2024 15:05-0500 SaO2% (BldA) [Mass fraction] 98 % Marquis Velasquez [employer] BR[employer]ER Work Phone: [facility] 04-27-2024 15:05-0500 Systolic blood pressure 138 mm[Hg] Marquis Velasquez [employer] BR[employer]ER Work Phone: [facility] 02-24-2024 15:32-0400 Body height 167.6 cm Abisai Boateng DPM Work Phone: [facility] 02-24-2024 15:32-0400 Body mass index (BMI) [Ratio] 39.22 kg/m2 Abisai Boateng DPM Work Phone: [facility] 02-24-2024 15:32-0400 Body weight 110.22 kg Abisai Boateng DPM Work Phone: [facility] 01-22-2024 15:57-0400 Body height 167.6 cm Marquis Velasquez [employer]ER Work Phone: [facility] 01-22-2024 15:57-0400 Body mass index (BMI) [Ratio] 39.22 kg/m2 Marquis Velasquez [employer]ER Work Phone: [facility] 01-22-2024 15:57-0400 Body temperature 98.29 [degF] Marquis Velasquez [employer] BR[employer]ER Work Phone: [facility] 01-22-2024 15:57-0400 Body weight 110.22 kg Marquis Velasquez [employer]ER Work Phone: [facility] 01-22-2024 15:57-0400 Diastolic blood pressure 78 mm[Hg] Marquis Velasquez [employer]ER Work Phone: [facility] 01-22-2024 15:57-0400 Heart rate 61 /min Marquis Velasquez [employer]ER Work Phone: [facility] Comment on above: 98% O2 01-22-2024 15:57-0400 Systolic blood pressure 112 mm[Hg] Marquis Velasquez [employer] BR[employer]ER Work Phone: [facility] 09-10-2022 13:15-0400 Diastolic blood pressure 64 mm[Hg] MD Shaikh Baker Work Phone: [facility] 09-10-2022 13:15-0400 Heart rate 54 /min MD Shaikh Baker Work Phone: [facility] 09-10-2022 13:15-0400 Respiratory rate 16 /min MD Shaikh Baker Work Phone: [facility] 09-10-2022 13:15-0400 SaO2% (BldA) [Mass fraction] 97 % MD Shaikh Baker Work Phone: [facility] 09-10-2022 13:15-0400 Systolic blood pressure 100 mm[Hg] MD Shaikh Baker Work Phone: [facility] 09-10-2022 12:25-0400 Body temperature 97.5 [degF] MD Shaikh Baker Work Phone: [facility] 09-10-2022 11:55-0400 Inhaled oxygen flow rate 8 L/min MD Shaikh Baker Work Phone: [facility] 09-10-2022 10:54-0400 Body height 165.1 cm MD Shaikh Baker Work Phone: [facility] 09-10-2022 10:54-0400 Body mass index (BMI) [Ratio] 38.6 kg/m2 MD Shaikh Baker Work Phone: [facility] 09-10-2022 10:54-0400 Body weight 105.4 kg MD Shaikh Baker Work Phone: [facility] 12-22-2021 10:00-0400 Diastolic blood pressure 87 mm[Hg] MD Sav Andrews Work Phone: [facility] 12-22-2021 10:00-0400 Heart rate 54 /min MD Sav Andrews Work Phone: [facility] 12-22-2021 10:00-0400 Respiratory rate 18 /min MD Sav Andrews Work Phone: [facility] 12-22-2021 10:00-0400 SaO2% (BldA) [Mass fraction] 100 % MD Sav Andrews Work Phone: [facility] 12-22-2021 10:00-0400 Systolic blood pressure 139 mm[Hg] MD Sav Andrews Work Phone: [facility] 12-22-2021 07:37-0400 Body height 170.18 cm MD Sav Andrews Work Phone: [facility] 12-22-2021 07:37-0400 Body temperature 97.9 [degF] MD Sav Andrews Work Phone: [facility] 12-22-2021 07:37-0400 Body weight 81.64 kg MD Sav Andrews Work Phone: [facility] Encounters Encounter Date Encounter Type Care Provider Facility Start: 12-31-2024 End: 12-31-2024 Office outpatient visit 25 minutes Luci Rios [employer]ER Work Phone: [facility] Comment on above: Chronic pain of righ t ankle (Primary Dx); Type 2 diabetes mellitus with diabetic polyneuropathy, with long-term current use of insulin ([facility]); Primary hypertension ; Type 2 diabetes mellitus without complication, with long-term current use of insulin ([facility]); Morbid (severe) obesity due to excess calories ([facility]); Severe persistent asthma without complication ([facility]); Edema of both lower extremities Start: 12-31-2024 End: 12-31-2024 Bamboo flowsheet Luci Rios [employer]ICK[employer] BROKER Work Phone: [facility] Start: 12-31-2024 End: 12-31-2024 Bamboo flowsheet Luci Rios [employer] BR[employer]ER Work Phone: [facility] Start: 12-09-2024 End: 12-09-2024 Refill Luciemma Rios [employer] BR[employer]ER Work Phone: [facility] Comment on above: Type 2 diabetes addy itus without complication, with long-term current use of insulin (HCC) (Primary Dx) Start: 11-30-2024 End: 11-30-2024 Clinisync Result Encounter Generic External Data Provider [facility] External [facility] Unsolicited Start: 11-30-2024 End: 11-30-2024 Clinisync Result Encounter Generic External Data Provider [facility] Unsolicited Start: 11-24-2024 End: 11-24-2024 Refill Luci Aichholz [employer] BR[employer]ER Work Phone: [facility] Comment on above: Type 2 diabetes addy itus without complication, with long-term current use of insulin (HCC) (Primary Dx) Start: 11-19-2024 End: 11-19-2024 Office outpatient visit 25 minutes Luci Aichholz [employer]ICK[employer] BROKER Work Phone: [facility] Comment on above: Type 2 diabetes addy itus with diabetic polyneuropathy, with long-term current use of insulin (HCC) (Primary Dx); Primary hypertension ; Morbid (severe) obesity due to excess calories ([facility]); Type 2 diabetes mellitus without complication, with long-term current use of insulin (HCC); Resistant hypertension ; Hyperlipidemia, unspecified hyperlipidemia type ; Type 2 diabetes mellitus without complications (HCC); Severe persistent asthma without complication (HCC); Gastroesophageal reflux disease without esophagitis Start: 11-19-2024 End: 11-19-2024 ambulatory LUCI AICHHOLZ Not Available Start: 11-19-2024 End: 11-19-2024 Bamboo flowsheet Luci Aichholz [employer]ICK[employer] BROKER Work Phone: [facility] Start: 11-19-2024 End: 11-19-2024 Bamboo flowsheet Luci Aichholz TICKET BROKER Work Phone: [facility] Start: 10-24-2024 End: 10-24-2024 Clinisync Result Encounter Luci Aichholz TICKET BROKER Work Phone: [facility] External Department Unsolicited Start: 10-24-2024 End: 10-24-2024 Clinisync Result Encounter Luci Aichholz [employer] BR[employer]ER Work Phone: [facility] External Department Unsolicited Start: 10-08-2024 End: 10-08-2024 Office outpatient visit 25 minutes Luci Aichholz [employer] BROKER Work Phone: [facility] Comment on above: Type 2 diabetes addy itus without complication, with long-term current use of insulin (Primary Dx); Type 2 diabetes mellitus with diabetic polyneuropathy, with long-term current use of insulin (CMS/HCC); Primary hypertension (CMS/HCC); Edema of both lower extremities; 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 (CMS/HCC); Morbid (severe) obesity due to excess calories (CMS/HCC); Severe persistent asthma without complication (CMS/HCC); Elevated serum creatinine Start: 10-08-2024 End: 10-08-2024 ambulatory LUCI AICHHOLZ Not Available Start: 10-08-2024 End: 10-08-2024 Bamboo flowsheet Luci Aichholz [employer]ICK[employer] BR[employer]ER Work Phone: [facility] Start: 10-08-2024 End: 10-08-2024 Bamboo flowsheet Luci Aichholz [employer]ICK[employer] BROKER Work Phone: [facility] Start: 09-17-2024 End: 09-17-2024 ambulatory LUCI AICHHOLZ Not Available Start: 09-17-2024 End: 09-17-2024 Office outpatient visit 25 minutes Luci Briseidaholz [employer] BROKER Work Phone: [facility] Comment on above: Elevated serum creat inine (Primary Dx); Primary hypertension (CMS/HCC); Type 2 diabetes mellitus without complication, with long-term current use of insulin Start: 09-17-2024 End: 09-17-2024 Bamboo flowsheet Luci Aichholz [employer]ICK[employer] BROKER Work Phone: [facility] Start: 09-17-2024 End: 09-17-2024 Bamboo flowsheet Luci Aichholz [employer]ICKET BROKER Work Phone: [facility] Start: 09-09-2024 End: 09-09-2024 Clinisync Result Encounter Luci Briseidaholz TICKET BROKER Work Phone: [facility] External Department Unsolicited Start: 09-09-2024 End: 09-09-2024 Clinisync Result Encounter Luci Aichholz TICKET BROKER Work Phone: [facility] External Department Unsolicited Start: 08-31-2024 End: 08-31-2024 Orders Only Luci Aichholz [employer] BR[employer]ER Work Phone: [facility] Comment on above: Elevated serum creat inine (Primary Dx) Start: 08-29-2024 End: 08-29-2024 Clinisync Result Encounter Luci Aichholz TICKET BROKER Work Phone: [facility] External Department Unsolicited Start: 08-29-2024 End: 08-29-2024 Clinisync Result Encounter Luci Aichholz TICKET BROKER Work Phone: [facility] External Department Unsolicited Start: 08-24-2024 End: 08-24-2024 Office outpatient visit 15 minutes Abisai Boateng DPM Work Phone: [facility] Comment on above: Onychodystrophy (Lizbeth hilda Dx); Onychomycosis; Type 2 diabetes mellitus with diabetic polyneuropathy, with long-term current use of insulin ([facility]) Start: 08-24-2024 End: 08-24-2024 ambulatory ABISAI BOATENG Not Available Start: 08-24-2024 End: 08-24-2024 Bamboo flowsheet Abisai Boateng DPM Work Phone: [facility] Start: 08-24-2024 End: 08-24-2024 Bamboo flowsheet Abisai Boateng DPM Work Phone: [facility] Start: 08-19-2024 End: 08-19-2024 Orders Only Luci Aichholz [employer] BR[employer]ER Work Phone: [facility] Comment on above: Elevated serum creat inine (Primary Dx) Start: 08-18-2024 End: 08-18-2024 ambulatory LUCI AICHHOLZ Not Available Start: 07-29-2024 End: 07-29-2024 Office outpatient visit 25 minutes Luci Aichholz [employer]ICK[employer] BR[employer]ER Work Phone: [facility] Comment on above: Primary hypertension (CMS/HCC) (Primary Dx); Type 2 diabetes mellitus without complications (CMS/[facility]); FDC (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 ([facility]); Morbid (severe) obesity due to excess calories ([facility]); Gastro-esophageal reflux disease without esophagitis; Body mass index (BMI) 38.0-38.9, adult; Idiopathic aseptic necrosis of right foot ([facility]); Type 2 diabetes mellitus with diabetic polyneuropathy, with long-term current use of insulin ([facility]); Severe persistent asthma without complication ([facility]); Mixed hyperlipidemia ([facility]) Start: 07-29-2024 End: 07-29-2024 ambulatory LUCI AICHHOLZ Not Available Start: 07-29-2024 End: 07-29-2024 Bamboo flowsheet Luci Aicadanholz [employer]ICK[employer] BROKER Work Phone: [facility] Start: 07-29-2024 End: 07-29-2024 Bamboo flowsheet Luci Briseidaholz [employer]ICK[employer] BROKER Work Phone: [facility] Start: 07-18-2024 End: 07-18-2024 Clinisync Result Encounter Marquis Asenciok [employer]ET BROKER Work Phone: [facility] Unsolicited Start: 07-18-2024 End: 07-18-2024 Clinisync Result Encounter Marquis Vailtrick [employer]ICKET BROKER Work Phone: [facility] Unsolicited Start: 06-13-2024 End: 06-16-2024 Refill Marquis Asenciok TICKET BROKER Work Phone: [facility] Comment on above: Severe persistent as thma without complication ([facility]) Start: 05-06-2024 End: 05-06-2024 Refill Cassie Stroud MA [facility] Comment on above: Type 2 diabetes addy itus with diabetic polyneuropathy, with long-term current use of insulin ([facility]) (Primary Dx) Start: 04-27-2024 End: 04-27-2024 Office outpatient visit 15 minutes Marquis Velasquez [employer]ICK[employer] BR[employer]ER Work Phone: [facility] Comment on above: Type 2 diabetes addy itus with diabetic polyneuropathy, with long-term current use of insulin ([facility]) (Primary Dx); Resistant hypertension ([facility]); Gastroesophageal reflux disease without esophagitis Start: 04-27-2024 End: 04-27-2024 ambulatory MARQUIS VELASQUEZ Not Available Start: 04-27-2024 End: 04-27-2024 Bamboo flowsheet Marquis Vazquezpatrick [employer] BROKER Work Phone: [facility] Start: 04-27-2024 End: 04-27-2024 Bamboo flowsheet Marquis Velasquez TICKET BROKER Work Phone: [facility] Start: 03-18-2024 End: 03-19-2024 Refill Marquis Vailtrick [employer]ICK[employer] BROKER Work Phone: [facility] Comment on above: Type 2 diabetes addy itus without complication, with long-term current use of insulin ([facility]) Start: 02-24-2024 End: 02-24-2024 Office outpatient new 30 minutes Abisai Boateng DPM Work Phone: [facility] Comment on above: Onychodystrophy (Lizbeth hilda Dx); Type 2 diabetes mellitus with diabetic polyneuropathy, with long-term current use of insulin ([facility]); Onychomycosis Start: 02-24-2024 End: 02-24-2024 ambulatory ABISAI BOATENG Not Available Start: 02-24-2024 End: 02-24-2024 Bamboo flowsheet Abisai Boateng DPM Work Phone: [facility] Start: 02-24-2024 End: 02-24-2024 Bamboo flowsheet Abisai Boateng DPM Work Phone: [facility] Start: 01-25-2024 End: 01-25-2024 Clinisync Result Encounter Shaikh Samuel GUPTA Work Phone: [facility] External Department Unsolicited Start: 01-25-2024 End: 01-25-2024 Clinisync Result Encounter Shaikh Samuel GUPTA Work Phone: [facility] External Department Unsolicited Start: 01-22-2024 End: 01-22-2024 Office outpatient visit 25 minutes Marquis Velasquez TICK[employer] BROKER Work Phone: [facility] Comment on above: Type 2 diabetes addy itus with diabetic polyneuropathy, with long-term current use of insulin ([facility]) (Primary Dx); Severe persistent asthma without complication ([facility]); Resistant hypertension ([facility]); Gastroesophageal reflux disease without esophagitis; Mixed hyperlipidemia ([facility]); Type 2 diabetes mellitus without complication, with long-term current use of insulin ([facility]); Primary hypertension ([facility]); Hyperlipidemia, unspecified hyperlipidemia type ([facility]) Start: 01-22-2024 End: 01-22-2024 ambulatory MARQUIS VELASQUEZ Not Available Start: 01-22-2024 End: 01-22-2024 Bamboo flowsheet Marquis Velasquez TICKET BROKER Work Phone: [facility] Start: 01-22-2024 End: 01-22-2024 Bamboo flowsheet Marquis Velasquez TICKET BROKER Work Phone: [facility] Start: 09-10-2022 End: 09-10-2022 ambulatory Silver Keyanna Facility:[facility] Start: 09-10-2022 End: 09-10-2022 Admission to same day surgery center MD Shaikh Baker Work Phone: [facility] [place] Start: 09-10-2022 End: 09-10-2022 ambulatory MD Shaikh Baker Work Phone: [facility] Work Phone: Start: 08-30-2022 End: 08-30-2022 ambulatory Silver Keyanna Facility:[facility] Start: 08-30-2022 End: 08-30-2022 ambulatory MD Shaikh Baker Work Phone: [facility] Work Phone: Start: 08-30-2022 End: 08-30-2022 Patient encounter procedure MD Shaikh Baker Work Phone: [id number] Work Phone: Start: 07-07-2022 End: 07-08-2022 ambulatory SHAIKH Adan BAKER Facility:[facility] Start: 03-13-2022 End: 03-14-2022 ambulatory SHAIKH Adan BAKER Facility:[facility] Start: 12-22-2021 End: 12-22-2021 ambulatory Sav Andrews Facility:[facility] Start: 12-22-2021 End: 12-22-2021 Admission to same day surgery center MD Sav Andrews Work Phone: [facility] Start: 12-20-2021 End: 12-20-2021 ambulatory Sav Andrews Facility:[facility] Start: 12-20-2021 End: 12-20-2021 Patient encounter procedure MD Sav Andrews Work Phone: [facility] Start: 11-14-2021 End: 11-15-2021 ambulatory REY PEREZ Facility:[facility] Start: 10-25-2021 End: 10-26-2021 ambulatory REY PEREZ Facility:[facility] Start: 09-11-2021 End: 09-12-2021 ambulatory SHAIKH Adan BAKER Facility:[facility] Start: 09-05-2021 End: 09-06-2021 ambulatory LIZETH MARTIN Facility:[facility] Start: 08-03-2021 End: 08-03-[address] ASA AL Facility:[facility] Procedures Date Procedure Procedure Detail Performing Clinician Start: 11-30-2024 XR ANKLE RT MIN 3V Gene karlos External Data Provider Start: 11-19-2024 Hemoglobin glycosylated a1c Luci Rios [employer]ER Work Phone: Start: 10-24-2024 US RENAL BI Luci flores [employer]ICKET BROKER Work Phone: Start: 10-24-2024 ALL BASIC METABOLIC PANEL Luci Rios [employer] BROKER Work Phone: Start: 09-09-2024 ALL BASIC METABOLIC PANEL Luci Rios [employer] BROKER Work Phone: Start: 08-29-2024 ALL BASIC METABOLIC PANEL Luci Rios [employer] BROKER Work Phone: Start: 07-30-2024 Colonoscopy Luci flores [employer]ICK[employer] BROKER Work Phone: Start: 07-18-2024 ALL CBC WITH AUTO DIFF Marquis Velasquez TICK[employer] BROKER Work Phone: Start: 01-25-2024 ALL LIPID PROFILE (FASTING) Shaikh Samuel GUPTA Work Phone: Start: 01-25-2024 [facility] CMP (CMP) (FOR [facility] USE) Shaikh Samuel GUPTA Work Phone: Start: 09-10-2022 Hemorrhoidectomy MD Beltran Baker Work Phone: Start: 01-26-2022 Colonoscopy Marquis soliszpatrick [employer]ER Work Phone: Start: 12-22-2021 Screening colonoscopy Ev Andrews Work Phone: SARS Antigen (LFIA) MD Dill on Darryl Work Phone: Plan of Treatment Date Care Activity Detail Author Start: 07-30-2034 Screening for malign ant neoplasm of colon [facility] Start: 01-27-2032 Screening for malign ant neoplasm of colon [facility] Start: 08-29-2025 Glaucoma screening Diabetes: R etinopathy Screening [facility] Start: 07-18-2025 Urine screening for protein Diabetes: Urine Protein Screening [facility] Start: 02-23-2025 End: 02-23-2025 Patient encounter [address] [facility] Start: 02-19-2025 Hemoglobin A1c measurement Diabetes: Hemoglobin A1C [facility] Start: 02-11-2025 End: 02-11-2025 Patient encounter procedure 02/11/2025 3:00 PM EDT Office Visit [facility] [address] [place] [address] Luci Rios NP [address] [place] [address] [facility] Start: 01-25-2025 Influenza vaccination Influenza Vacc ine (#1) [facility] Start: 12-31-2024 End: 12-31-2024 Patient encounter procedure [facility] Comment on above: Type 2 diabetes addy itus with diabetic polyneuropathy, with long-term current use of insulin (HCC) (Primary Dx); Primary hypertension ; Type 2 diabetes mellitus without complication, with long-term current use of insulin (HCC); Morbid (severe) obesity due to excess calories (CMS-HCC); Severe persistent asthma without complication (HCC); Edema of both lower extremities Start: 12-31-2024 End: 12-31-2025 Basic metabolic 1998 panel - Serum or Plasma Basic metabolic panel Lab Routine Primary hypertension Type 2 diabetes mellitus without complication, with long-term current use of insulin (HCC) Edema of both lower extremities Expected: 12/31/2024 (Approximate), Expires: 12/31/2025 [facility] Work Phone: Comment on above: Expected: 12/31/2024 (Approximate), Expires: 12/31/2025 Start: 12-31-2024 End: 12-31-2025 XR Ankle - right 3 Views XR ankle 3+ views right Imaging Routine Chronic pain of right ankle Expected: 12/31/2024, Expires: 12/31/2025 [facility] Comment on above: Expected: 12/31/2024 , Expires: 12/31/2025 Start: 11-19-2024 End: 11-19-2024 Patient encounter procedure [facility] Comment on above: Primary hypertension (Primary Dx); Morbid (severe) obesity due to excess calories (CMS-HCC); Type 2 diabetes mellitus without complication, with long-term current use of insulin (HCC) Start: 10-15-2024 Hemoglobin A1c measurement Diabetes: Hemoglobin A1C 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/HCC); Morbid (severe) obesity due to excess calories (CMS/HCC); Type 2 diabetes mellitus without complication, with long-term current use of insulin; Severe persistent asthma without complication (CMS/HCC) Start: 09-17-2024 End: 09-17-2025 Basic metabolic 1997 panel - Serum or Plasma Basic metabolic panel Lab Routine Primary hypertension (CMS/HCC) Type 2 diabetes mellitus without complication, with long-term current use of insulin Expected: 09/17/2024 (Approximate), Expires: 09/17/2025 [facility] [employer] Work Phone: Comment on above: Expected: 09/17/2024 (Approximate), Expires: 09/17/2025 Start: 09-17-2024 End: 09-17-2025 US Kidney US renal complete Imaging Routine Elevated serum creatinine Primary hypertension (CMS/HCC) Type 2 diabetes mellitus without complication, with long-term current use of insulin Expected: 09/17/2024, Expires: 09/17/2025 [facility] Comment on above: Expected: 09/17/2024 , Expires: 09/17/2025 Start: 09-14-2024 End: 08-31-2025 Basic metabolic 1997 panel - Serum or Plasma Basic metabolic panel Lab Routine Elevated serum creatinine Expected: 09/14/2024 (Approximate), Expires: 08/31/2025 [facility] [employer] Work Phone: Comment on above: Expected: 09/14/2024 (Approximate), Expires: 08/31/2025 Start: 08-29-2024 Glaucoma screening Diabetes: R etinopathy Screening [facility] Start: 08-26-2024 End: 08-19-2025 Basic metabolic 1997 panel - Serum or Plasma Basic metabolic panel Lab Routine Elevated serum creatinine Expected: 08/26/2024 (Approximate), Expires: 08/19/2025 [facility] Work Phone: Comment on above: Expected: 08/26/2024 (Approximate), Expires: 08/19/2025 Start: 08-24-2024 End: 08-24-2024 Patient encounter [address] [facility] Comment on above: Arrived Start: 08-18-2024 End: 08-18-2024 Patient encounter procedure 08/18/2024 3:00 PM EDT Office Visit [facility] [address] [place] [address] Luci Rios NP [address] [place] [id number] [facility] Start: 08-07-2024 Urine screening for protein Diabetes: Urine Protein Screening 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 (CMS/HCC); Morbid (severe) obesity due to excess calories (CMS/HCC); Gastro-esophageal reflux disease without esophagitis; Body mass index (BMI) 38.0-38.9, adult; 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); Severe persistent asthma without complication (CMS/HCC); Primary hypertension (CMS/HCC); Mixed hyperlipidemia (CMS/HCC) Start: 07-28-2024 End: 07-28-2024 Patient encounter procedure 07/28/2024 4:00 PM EST Office Visit [facility] [address] [place] [address] Marquis Velasquez NP [address] [place] [address] [facility] Start: 07-26-2024 End: 04-27-2025 CBC W Auto Differential panel - Blood CBC and differential Lab Routine Type 2 diabetes mellitus with diabetic polyneuropathy, with long-term current use of insulin (CMS/HCC) Resistant hypertension (CMS/HCC) Expected: 07/26/2024 (Approximate), Expires: 04/27/2025 [facility] Comment on above: Expected: 07/26/2024 (Approximate), Expires: 04/27/2025 Start: 07-26-2024 End: 04-27-2025 Comprehensive metabolic 2000 panel - Serum or Plasma Comprehensive metabolic panel Lab Routine Type 2 diabetes mellitus with diabetic polyneuropathy, with long-term current use of insulin (CMS/HCC) Resistant hypertension (CMS/HCC) Expected: 07/26/2024 (Approximate), Expires: 04/27/2025 [facility] Comment on above: Expected: 07/26/2024 (Approximate), Expires: 04/27/2025 Start: 07-26-2024 End: 04-27-2025 Hemoglobin A1c/Hemoglobin.total in Blood Hemoglobin A1c Lab Routine Type 2 diabetes mellitus with diabetic polyneuropathy, with long-term current use of insulin (CMS/HCC) Resistant hypertension (CMS/HCC) Expected: 07/26/2024 (Approximate), Expires: 04/27/2025 [facility] Comment on above: Expected: 07/26/2024 (Approximate), Expires: 04/27/2025 Start: 07-26-2024 End: 04-27-2025 Microalbumin/Creatinine panel in random Urine Microalbumin / creatinine urine ratio Lab Routine Type 2 diabetes mellitus with diabetic polyneuropathy, with long-term current use of insulin (CMS/HCC) Resistant hypertension (CMS/HCC) Expected: 07/26/2024 (Approximate), Expires: 04/27/2025 [facility] Work Phone: Comment on above: Expected: 07/26/2024 (Approximate), Expires: 04/27/2025 Start: 04-27-2024 End: 04-27-2024 Patient encounter procedure [facility] Comment on above: Arrived Start: 04-22-2024 End: 04-22-2024 Patient encounter procedure 04/22/2024 3:30 PM EST Office Visit [facility] [address] [place] [address] Marquis Velasquez, MARIA FERNANDA [address] [place] [address] [facility] Start: 02-24-2024 End: 02-24-2024 Patient encounter procedure 02/24/2024 3:30 PM EDT Office Visit [facility] [address] [place] [phone] Abisai Boateng, DPM [address] [place] [address] Type 2 diabetes mellitus with diabetic polyneuropathy, with long-term current use of insulin ([facility]) [facility] Comment on above: Type 2 diabetes addy itus with diabetic polyneuropathy, with long-term current use of insulin ([facility]/HCC) Start: 01-26-2024 Influenza vaccination Influenza Vacc ine (#1) [facility] Start: 01-22-2024 End: 01-22-2024 Patient encounter procedure 01/22/2024 4:00 PM EDT Office Visit [facility] [address] [place] [phone] Marquis Velasquez, MARIA FERNANDA [address] [place] [phone] Type 2 diabetes mellitus with diabetic polyneuropathy, with long-term current use of insulin ([facility]/HCC) (Primary Dx); Severe persistent asthma without complication (CMS/HCC); Resistant hypertension (CMS/HCC); Gastroesophageal reflux disease without esophagitis; Mixed hyperlipidemia ([facility]) [facility] Comment on above: Type 2 diabetes addy itus with diabetic polyneuropathy, with long-term current use of insulin ([facility]) (Primary Dx); Severe persistent asthma without complication (CMS/HCC); Resistant hypertension (CMS/HCC); Gastroesophageal reflux disease without esophagitis; Mixed hyperlipidemia ([facility]) Start: 11-08-2023 Hemoglobin A1c measurement Diabetes: Hemoglobin A1C [facility] Start: 09-10-2022 End: 09-10-2022 [facility] Start: 12-22-2021 [facility] Work Phone: Start: 1965 Screening for malign ant neoplasm of colon [facility] Patient Education Hemorrhoids [facility] Work Phone: Immunizations Immunization Date Immunization Notes Care Provider Fa cility 05-28-2024 influenza, seasonal, injectable, preservative free Luci Aichholz [employer] Work Phone: [facility] 05-28-2024 measles, mumps and rubella virus vaccine Luci Aichholz [employer] Work Phone: [facility] 05-28-2024 Pneumococcal conjuga te vaccine, 21 valent (PCV21), polysaccharide [id number] conjugate, preservative free Luci Aichholz [employer] Work Phone: [facility] 05-28-2024 influenza virus vaccine, unspecified formulation Luci Aichholz [employer] Work Phone: [facility] 03-23-2022 tetanus toxoid, redu bj diphtheria toxoid, and acellular pertussis vaccine, adsorbed Marquis Velasquez [employer] Work Phone: [facility] 03-23-2022 zoster vaccine recombinant Marquis Velasquez [employer] Work Phone: [facility] 03-13-2022 influenza, seasonal, injectable Luci Aichholz [employer] Work Phone: [facility] 05-10-2021 Influenza, injectabl e, Madin Wedron Canine Kidney, preservative free, quadrivalent Marquis Velasquez [employer] Work Phone: [facility] 05-10-2021 influenza virus vaccine, unspecified formulation Marquis Velasquez [employer] Work Phone: [facility] 10-10-2020 COVID-19 Soniya Benavides (Pfizer) MD Sav Andrews Work Phone: [facility] 09-19-2020 COVID-19 Soniya Benavides (Pfizer) MD Sav Andrews Work Phone: [facility] 02-17-2020 Influenza, injectabl e, Madin Wedron Canine Kidney, preservative free, quadrivalent Marquis Velasquez [employer]ICKET BROKER Work Phone: [facility] 03-09-2019 influenza, seasonal, injectable Marquis Velasquez [employer]ER Work Phone: [facility] 03-12-2017 influenza, injectabl e, quadrivalent, preservative free Marquis Velasquez TICKET BROKER Work Phone: [facility] Payers Date Payer Category [facility] [id number] 2022 Unknown [facility] [id number] 2022-Present [phone] [address] [place] [address] [id number] 2021 Self-pay [id number] 1965 Unknown [id number] 2.16.840.1.344045.3.579. 2.593 1966 Unknown [id number] .16.840.1.611479.3.579. 2.593 1966 Unknown [id number] 2.16.840.1.947744.3.579. 2.593 1966 Unknown [id number] 2.16.840.1.722861.3.579. 2.59 1966 Unknown [id number] 2.16.840.1.447754.3.579. 2.59 1966 Unknown [id number] 2.16.840.1.307408.3.579. 2.59 1966 Unknown [id number] 2.16.840.1.368349.3.579. 2.59 1966 Unknown [id number] 2.16.840.1.248161.3.579. 2.1258 1966 Unknown [id number] 2.16.840.1.977410.3.579. 2.1258 1966 Unknown [id number] 2.16.840.1.554691.3.579. 2.1258 1966 Unknown [id number] 2.16.840.1.608730.3.579. 2.1258 1966 Unknown [id number] 2.16.840.1.309215.3.579. 2.1258 1966 Unknown [id number] 2.16.840.1.509274.3.579. 2.1258 1966 Unknown [id number] 2.16.840.1.591965.3.579. 2.1258 1966 Unknown [id number] 2.16.840.1.659164.3.579. 2.1258 1966 Unknown [id number] 2.16.840.1.785387.3.579. 2.125 1959 Unknown [id number] Unknown [id number] 2.16.840.1.354849.3.579. 2.531 Unknown [id number] 2.16.840.1.225582.3.579. 2.531 Unknown [id number] 2.16.840.1.517988.3.579. 2.531 Unknown [id number] 2.16.840.1.105695.3.579. 2.531 Social History Date Type Detail Facility Start: 12-22-2021 End: 08-07-2023 Tobacco smoking status NHIS Ex-smoker (finding) [facility] Start: 1965 Sex Assigned At Male F [facility] History of tobacco use Current smoker [facility] History of tobacco use Cigarette Smoker [facility] History of tobacco use Passive smoker [facility] Start: 08-07-2023 Tobacco use and exposure Smoke less tobacco non-user [facility] Start: 02-24-2024 End: 12-31-2024 Alcoholic beverage intake Lifetime non-drinker (finding) [facility] [...] to any clubs or organizations such as sabianism groups, unions, fraternal [...] Sex assigned at Not on file [facility] How often do you nee d to have someone help you when you read instructions, pamphlets, or other written material from your doctor or pharmacy [SILS] Sometimes [facility] Medical Equipment Procedure Code Equipment Code Equipment Origin al Text Equipment Identifier Dates Daily [id number] Start: 10-24-2023 End: 10-23-2024 Daily [id number] Start: 04-27-2024 End: 04-27-2025 Daily [id number] Start: 11-19-2024 End: 11-19-2025 Goals Date Patient Goal Desired Activity /State Clinical Notes 09-05-2021 to 12-31-2024 Luci Rios NP - 12/31/2024 5:09 PM EDREKHA VIDAL - 12/31/2024 3:40 PM Terra Rios NP - 12/31/2024 3:40 PM Terra Rios NP - 12/31/2024 6:52 AM EDTPatient Instructions Note Date & Type Note Facility 12-31-2024 History of Present illness Narrative Associated Problem(s): Chronic pain of right ankle Attempted to call Dr Perez's office they were closed Will send for xray and venous doppler to r/o DVT Pt had surgery last year in right ankle- pt came in limping today pain in that right ankle, swelling ankles and legs, and bruising. He sees that dr sophy until jamison perez Current BG is 98 Fasting range 100-140s Images from the original note were not included. Lavern Dewey is a 59 y.o. male presents with chief complaint of Diabetes HPI: Ankle Pain The incident occurred more than 1 week ago. The pain is present in the right ankle. The quality of the pain is described as aching. The pain is moderate. The pain has been Fluctuating since onset. Associated symptoms include an inability to bear weight. He reports no foreign bodies present. The symptoms are aggravated by movement and weight bearing. He has tried acetaminophen for the symptoms. The treatment provided mild relief. SUBJECTIVE: MEDICATIONS: Current Outpatient Medications Medication Instructions albuterol HFA 90 mcg/act inhaler 2 puffs, Inhalation, Every 4 hours PRN amLODIPine (NORVASC) 10 mg, Oral, Daily aspirin 81 mg, Oral, Daily RT atorvastatin (LIPITOR) 40 mg, Oral, Daily carvedilol (COREG) 25 mg, Oral, 2 times daily with meals Continuous Glucose Inside Sales Supervisor (SkillPixelsyle Agueda 2 Knox) device 1 each, Does not apply, 4 times daily Continuous Glucose Sensor (Dexcom G7 Sensor) misc 1 each, Does not apply, Daily dapagliflozin (FARXIGA) 5 mg, Oral, Daily diclofenac (CATAFLAM) 50 mg, Oral, 2 times daily, Take with food Itzzvanjzeu-Ktpgzlmmy-Wbblze (Trelegy Ellipta) 200-62.5-25 MCG/ACT aerosol powder 1 puff, Inhalation, Daily, INHALE 1 PUFF ONCE DAILY, rinse mouth after use glipiZIDE (GLUCOTROL) 5 mg, Oral, 2 times daily before meals insulin pen needle (B-D ULTRAFINE III SHORT PEN) 31G X 8 mm misc Daily Lantus SoloStar 20 Units, Subcutaneous, Nightly losartan-hydroCHLOROthiazide (Hyzaar) 100-25 MG tablet 1 tablet, [...] kidney injury) Arthritis of ankle, right Asthma ([facility]) Avascular necrosis of talus, right (HCC) Dietrich cyst, right Enlarged and hypertrophic nails Eosinophilia Equinus contracture of right ankle Gastroesophageal reflux disease Hemorrhoids Hyperlipemia, mixed Hypertension Onychomycosis of toenail Osteoarthritis of both knees, unspecified osteoarthritis type Osteochondral defect of talus Pain, foot, right, chronic Peroneal tendinitis, right Right ankle pain Right leg swelling Severe persistent asthma ([facility]) Skin tags, multiple acquired Sprain of right ankle, sequela T2DM (type 2 diabetes mellitus) ([facility]) Past Surgical History: Procedure Laterality Date ANKLE SURGERY Right COLONOSCOPY 2021 HEMORRHOID SURGERY 09/10/2022 banding of hemorrhoids family history includes Diabetes in his sister; Stroke in his father. OBJECTIVE: Visit Vitals BP 132/78 (BP Location: Left arm, Patient Position: Sitting, BP Cuff Size: Large adult) Pulse 56 Temp 97.8 F (Temporal) Resp 20 Wt 249 lb 12.8 oz SpO2 96% BMI 40.32 kg/m Smoking Status Former BSA 2.29 m Physical Exam Vitals and nursing note [...] Normal pulses. Heart sounds: Normal heart sounds. No murmur heard. Pulmonary: Effort: Pulmonary effort is normal. Breath sounds: Normal breath sounds. No wheezing. Abdominal: General: Bowel sounds are normal. Palpations: Abdomen is soft. Musculoskeletal: Cervical back: Neck supple. Right lower leg: Edema present. Left lower leg: No edema. Comments: Ankle STS, mod tenderness, limited ROM Calf sl tender and swelling from knee down into foot +PT/DP pulse Skin: General: Skin is warm and dry. Capillary Refill: Capillary refill takes 2 to 3 seconds. Neurological: General: No focal deficit present. Mental Status: He is alert. Psychiatric: Mood and Affect: Mood normal. Behavior: Behavior normal. Thought Content: Thought content normal. Judgment: Judgment normal. ASSESSMENT AND PLAN: Follow up in about 6 weeks (around 02/11/2025) for Recheck. Problem List Items Addressed This Visit Type 2 diabetes mellitus with diabetic polyneuropathy, with long-term current use of insulin (HCC) - Primary No current treatment Recommend proper fitting toes, freq foot inspections, good glycemic control Severe persistent asthma without complication ([facility]) In the past has used trelegy 200, symbicort 160, and flovent, has seen pulmonary in the past Finds benefit with trelegy 100's Current meds: trelegy, albuterol Type 2 diabetes mellitus without complications ([facility]) Check blood sugars daily, notify [...] farxiga A1c 7.0% 11/19/24, 8.3% 07/18/24 Relevant Orders Basic metabolic panel Morbid (severe) obesity due to excess calories ([facility]) Discussed with patient their BMI (actual, verses recommended). We have also discussed lifestyle modifications: attempts to perform physical activity as chronic conditions allow, also to monitor dietary intake: increasing protein/fruits/veggies and lowering carb intake (unless contraindicated). Limit sodas, juices, and sugary drinks. Primary hypertension Please check blood pressure daily and record DASH diet Limit caffeine Take medication as directed Contact office if chest pain, pressure, dizziness, shortness of breath, swelling legs Recommend slow position changes Current meds: amlodipine, carvedilol, losartan/hydrochlorothiazide, aldactone Relevant Orders Basic metabolic panel Edema of both lower extremities Current meds: aldactone, hydrochlorothiazide in losartan Relevant Orders Basic metabolic panel Chronic pain of right ankle Attempted to call Dr Perez's office they were closed Will send for xray and venous doppler to r/o DVT Relevant Medications diclofenac (Cataflam) 50 MG tablet Other Relevant Orders XR ankle 3+ views right Associated Problem(s): Edema of both lower extremities Current meds: aldactone, hydrochlorothiazide in losartan Associated Problem(s): Severe persistent asthma without complication (HCC) In the past has used trelegy 200, symbicort 160, and flovent, has seen pulmonary in the past Finds benefit with trelegy 100's Current meds: trelegy, albuterol Associated Problem(s): Morbid (severe) obesity due to excess calories ([facility]) Discussed with patient their BMI (actual, verses recommended). We have also discussed lifestyle modifications: attempts to perform physical activity as chronic conditions allow, also to monitor dietary intake: increasing protein/fruits/veggies and lowering carb intake (unless contraindicated). Limit sodas, juices, and sugary drinks. Associated Problem(s): Type 2 diabetes mellitus without [...] insulin, farxiga A1c 7.0% 11/19/24, 8.3% 07/18/24 Associated Problem(s): Primary hypertension Please check blood pressure [...] good glycemic control documented in this encounter [facility] 12-31-2024 Instructions Luci Rios NP - 12/31/2024 3:40 PM EDT Try diclofenac twice a day with food for swelling and pain Get labs check in about 10 days or so documented in this encounter [facility] 12-09-2024 Telephone encounter Note Contact pt, let him know his insurance is denying Freestyle agueda 3 device They want him to use a different CGM system, wants him to use dexcom, I have a floor cleaner and 2 sensor samples, [place] [facility] 12-09-2024 Miscellaneous Notes Contact pt, let him know his insurance is denying Freestyle agueda 3 device They want him to use a different CGM system, wants him to use dexcom, I have a floor cleaner and 2 sensor samples, [place] documented in this encounter [facility] 11-19-2024 History of Present illness Narrative Images from the original note were not included. Lavern Dewey is a 59 y.o. male presents [...] treatment provides significant improvement. There are no compliance problems. There is no history of CAD/MN, heart failure or retinopathy. Diabetes He presents [...] being taken. 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 SUBJECTIVE: MEDICATIONS: Current Outpatient Medications Medication Instructions albuterol HFA 90 mcg/act inhaler 2 puffs, Inhalation, Every 4 hours PRN amLODIPine (NORVASC) 10 mg, Oral, Daily aspirin 81 mg, Oral, Daily RT atorvastatin (LIPITOR) 40 mg, Oral, Daily carvedilol (COREG) 25 mg, Oral, 2 times daily with meals Continuous Glucose Inside Sales Supervisor (FreeStyle Agueda 2 Knox) device 1 each, Does not apply, 4 times daily Continuous Glucose Sensor (FreeStyle Agueda 3 Plus Sensor) misc 1 each, Other, Continuous, USE 1 SENSOR EVERY 15 DAYS TO MONITOR BLOOD SUGAR. dapagliflozin (FARXIGA) 5 mg, Oral, Daily Gmsvrqmktpt-Sbmpusyfi-Wdelvb (Trelegy Ellipta) 200-62.5-25 MCG/ACT aerosol powder 1 [...] pain Right leg swelling Severe persistent asthma ([facility]) Skin tags, multiple acquired Sprain of right ankle, sequela T2DM (type 2 diabetes mellitus) ([facility]) Past Surgical History: Procedure Laterality Date ANKLE SURGERY Right COLONOSCOPY 2021 HEMORRHOID SURGERY 09/10/2022 banding of hemorrhoids family history includes Diabetes in his sister; Stroke in his father. OBJECTIVE: Visit Vitals BP 124/78 (BP Location: Left arm, Patient Position: Sitting, BP Cuff Size: Large adult) Pulse 81 Temp 97.8 F (Temporal) Resp 18 Wt 245 lb 12.8 oz SpO2 96% BMI 39.67 kg/m Smoking Status Former BSA 2.27 m Physical Exam Vitals and nursing note [...] mm misc Severe persistent asthma without complication ([facility]) Relevant Medications Ulkvdalslko-Ssuhgbnbw-Tyilof (Trelegy Ellipta) 200-62.5-25 MCG/ACT aerosol powder Hyperlipidemia Relevant Medications atorvastatin (Lipitor) 40 MG tablet metFORMIN (Glucophage) 850 MG tablet Type 2 diabetes mellitus without complications ([facility]) Check blood sugars daily, notify [...] 07/18/24 Relevant Medications Continuous Glucose Sensor (FreeStyle Agueda 3 Plus Sensor) [facility] dapagliflozin (Farxiga) 5 MG Other Relevant Orders POCT glycosylated hemoglobin (Hb A1C) docked device (Completed) Morbid (severe) obesity due to excess calories ([facility]) Discussed with patient their BMI [...] Medications omeprazole (PriLOSEC) [address] capsule Pt needs a refill on the insulin pen Associated Problem(s): Type 2 diabetes mellitus without [...] insulin, farxiga A1c 7.0% 11/19/24, 8.3% 07/18/24 Associated Problem(s): Morbid (severe) obesity due to excess calories ([facility]) Discussed with patient their BMI (actual, verses recommended). We have also discussed lifestyle modifications: attempts to perform physical activity as chronic conditions allow, also to monitor dietary intake: increasing protein/fruits/veggies and lowering carb intake (unless contraindicated). Limit sodas, juices, and sugary drinks. Associated Problem(s): Primary hypertension Please check blood pressure daily and record DASH diet Limit caffeine Take medication as directed Contact office if chest pain, pressure, dizziness, shortness of breath, swelling legs Recommend slow position changes Current meds: amlodipine, carvedilol, losartan/hydrochlorothiazide, aldactone documented in this encounter [facility] 10-08-2024 History of Present illness Narrative Associated Problem(s): Elevated serum creatinine Recheck labs, still has not heard anything about renal US at [facility] We will refax Pt has not eaten since 10-10:30 am Agueda: 83 Glucose: 80 States he will eat again around 6/7PM Images from the original note were not included. Lavern Dewey is a 59 y.o. male presents [...] 2 times daily with meals Continuous Glucose Inside Sales Supervisor (FreeStyle Agueda 2 Knox) device 1 each, Does not apply, 4 times daily Continuous Glucose Sensor (FreeStyle Agueda 3 Plus Sensor) [facility] USE 1 SENSOR EVERY 15 DAYS TO MONITOR BLOOD SUGAR. dapagliflozin (FARXIGA) 5 mg, Oral, Daily Vynlvcqpeyk-Knlboijat-Gbswri (Trelegy Ellipta) 200-62.5-25 MCG/ACT aerosol powder 1 puff, Inhalation, Daily, INHALE 1 PUFF ONCE DAILY, rinse mouth after use glipiZIDE (GLUCOTROL) 5 mg, Oral, 2 times daily before meals insulin glargine-yfgn (SEMGLEE (YFGN)) 20 Units, Subcutaneous, Nightly insulin pen needle (B-D ULTRAFINE III SHORT PEN) 31G X 8 mm [facility] Daily losartan-hydroCHLOROthiazide (Hyzaar) 100-25 MG tablet 1 [...] History: Diagnosis Date AYESHA (acute kidney injury) ([facility]) Arthritis of ankle, right Asthma Avascular necrosis of talus, right ([facility]) Dietrich cyst, right Enlarged and hypertrophic nails Eosinophilia Equinus contracture of right ankle Gastroesophageal reflux disease Hemorrhoids Hyperlipemia, mixed ([facility]) Hypertension ([facility]) Onychomycosis of toenail Osteoarthritis of both knees, unspecified osteoarthritis type Osteochondral defect of talus Pain, foot, right, chronic Peroneal tendinitis, right Right ankle pain Right leg swelling Severe persistent asthma Skin tags, multiple acquired Sprain of right ankle, sequela T2DM (type 2 diabetes mellitus) ([facility]) Past Surgical History: Procedure Laterality [...] persistent asthma without complication (CMS/HCC) Relevant Medications Qotfjqkatwb-Anmvpknqr-Mrznte (Trelegy Ellipta) 200-62.5-25 MCG/ACT aerosol powder Type [...] looking great!!! 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 10-08-2024 Instructions Luci Rios NP - 10/08/2024 3:40 PM EDT No dose changes in meds Keep up the great work Order for labs no fasting Number to hospital: [phone] ext [phone] documented in this encounter [facility] 09-17-2024 History of Present illness Narrative Images from the original note were not included. Lavern Dewey is a 59 y.o. male presents [...] 2 times daily with meals Continuous Glucose Inside Sales Supervisor ([employer] Agueda 2 Knox) device 1 each, Does not apply, 4 times daily Continuous Glucose Sensor (FreeStyle Agueda 3 Plus Sensor) [facility] USE 1 SENSOR EVERY 15 DAYS TO MONITOR BLOOD SUGAR. dapagliflozin (FARXIGA) 5 mg, Oral, Daily Tfdquxwgsku-Gbrvurxxh-Ozuebo (Trelegy Ellipta) 200-62.5-25 MCG/ACT aerosol powder 1 puff, Inhalation, Daily, INHALE 1 PUFF ONCE DAILY, rinse mouth after use glipiZIDE (GLUCOTROL) 5 mg, Oral, 2 times daily before meals insulin glargine-yfgn (SEMGLEE (YFGN)) 20 Units, Subcutaneous, Nightly insulin pen needle (B-D ULTRAFINE III SHORT PEN) 31G X 8 mm [facility] Daily losartan-hydroCHLOROthiazide (Hyzaar) 100-25 MG tablet 1 [...] Asthma Avascular necrosis of talus, right (CMS/HCC) Idetrich cyst, right Enlarged and hypertrophic nails Eosinophilia [...] US renal complete documented in this encounter [facility] 09-17-2024 Instructions Luci Rios NP - 09/17/2024 4:00 PM EDT No med changes, keep your follow up appt I am going to order an Ultrasound of [facility] Same day as the Ultrasound recheck blood work documented in this encounter [facility] 08-24-2024 History of Present illness Narrative Images from the original note were not included. Subjective Patient ID: Lavern Dewey is a 59 y.o. male who [...] History: Diagnosis Date AYESHA (acute kidney injury) ([facility]/HCC) Arthritis of ankle, right Asthma Avascular necrosis of talus, right (CMS/HCC) Dietrich cyst, right Enlarged and hypertrophic nails Eosinophilia Equinus contracture of right ankle Gastroesophageal reflux disease Hemorrhoids Hyperlipemia, mixed ([facility]/HCC) Hypertension (CMS/HCC) Onychomycosis of toenail Osteoarthritis of both knees, unspecified osteoarthritis type Osteochondral defect of talus Pain, foot, right, chronic Peroneal tendinitis, right Right ankle pain Right leg swelling Severe persistent asthma Skin tags, multiple acquired Sprain of right ankle, sequela T2DM (type 2 diabetes mellitus) ([facility]) Medications Current Outpatient Medications: albuterol [...] Disp: 180 tablet, Rfl: 1 Continuous Glucose Inside Sales Supervisor (FreeStyle Agueda 2 Knox) device, 1 each in the morning and 1 each at noon and 1 each in the evening and 1 each before bedtime., Disp: 1 each, Rfl: 0 Continuous Glucose Sensor (FreeStyle Agueda 3 Plus Sensor) [facility], USE 1 SENSOR EVERY 15 DAYS TO MONITOR BLOOD SUGAR., Disp: , Rfl: dapagliflozin (Farxiga) 5 MG, Take 1 tablet (5 mg) by mouth Daily, Disp: 90 tablet, Rfl: 0 Bgneoevtyqq-Faicduwkr-Rztgxf (Trelegy Ellipta) 200-62.5-25 MCG/ACT aerosol powder , [...] III SHORT PEN) 31G X 8 mm [facility], Daily, Disp: 100 each, Rfl: 12 losartan-hydroCHLOROthiazide [...] polyneuropathy, with long-term current use of insulin (CMS/[facility]) E11.42 Z79.4 Patient was examined and evaluated. Diabetic foot evaluation performed. Patient is low risk for diabetic foot complications. He does have some mild neuropathy but currently has no preulcerative lesions. 10 toenails were debrided in length and thickness today utilizing a nail nipper and electric bur chisel grinder without incident. I have discussed the [...] Abisai Boateng DPM documented in this encounter [facility] 07-29-2024 History of Present illness Narrative Pt states that about 2 weeks ago he had pain in his right knee and swelling in the right leg. Pt states it happened just the one time. Pt is having pin and needles in the left hand. 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 Lavern Dewey is a 59 y.o. male presents with chief complaint of No chief complaint on file. HPI: Pt states that about 2 weeks ago he had pain in his right knee and swelling in the right leg. Pt states it happened just the one time. Pt is having pin and needles in the left hand. 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 Pt needs a refill on his trelegy and albuterol inhaler wants to know if he can be on mounjaro Pt does not take januvia 100mg insurance will not pay for it- $600 a month for bottle CGM readings: 7 day, avg 235, >250 46%, 181-250 36%, 70-181 18% 14 day avg 210, 8.3%, >250 30%, 181-250 32%, 70-16492% 30 day avg 190, 7.9%, >250 18%, [...] 2 times daily with meals Continuous Glucose Inside Sales Supervisor (Q [employer] Agueda 2 Knox) device 1 each, Does not apply, 4 times daily Continuous Glucose Sensor (FreeStyle Agueda 3 Plus Sensor) [facility] USE 1 SENSOR EVERY 15 DAYS TO MONITOR BLOOD SUGAR. furosemide (LASIX) 40 mg, Daily glipiZIDE (GLUCOTROL) 5 mg, Oral, 2 times daily before meals insulin glargine-yfgn (SEMGLEE (YFGN)) 20 Units, Subcutaneous, Nightly insulin pen needle (B-D ULTRAFINE III SHORT PEN) 31G X 8 mm [facility] Daily losartan-hydroCHLOROthiazide (Hyzaar) 100-25 MG tablet 1 [...] pain Right leg swelling Severe persistent asthma (CMS/[facility]) Skin tags, multiple acquired Sprain of right ankle, sequela T2DM (type 2 diabetes mellitus) ([facility]) Past Surgical History: Procedure Laterality [...] polyneuropathy, with long-term current use of insulin ([facility]) - Primary No current treatment Recommend proper fitting toes, freq foot inspections, good glycemic control Severe persistent asthma without complication ([facility]) Current meds: trelegy, albuterol #2 samples of trelegy: 100's, lot MV9W, exp 06/21 In the past has used trelegy 200, symbicort 160, and flovent Finds benefit with trelegy 100's Has seen pulmonology in the past Relevant Medications Tnwfihtwjpw-Csjdygpgo-Hyweod (Trelegy Ellipta) 200-62.5-25 MCG/ACT aerosol powder albuterol HFA 90 mcg/act inhaler Gastro-esophageal reflux disease without esophagitis Recommendations: freq small meals, nothing to eat or drink at least 2 hours prior to bed, limit caffeine, alcohol, as well as spicy foods Meds to limit or avoid if possible: NSAIDS Elevate HOB if possible Med: omeprazole Hyperlipidemia ([facility]) On statin therapy Check labs yearly, and prn dose changes Type 2 diabetes mellitus without complications ([facility]) Check blood sugars daily, notify [...] 07/18/24 Relevant Medications dapagliflozin (Farxiga) 5 MG 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 We have also discussed lifestyle modifications: attempts to perform physical activity as chronic conditions allow, also to monitor dietary intake: increasing protein/fruits/veggies and lowering carb intake (unless contraindicated). Limit sodas, juices, and sugary drinks. Body mass index (BMI) 38.0-38.9, adult Idiopathic aseptic necrosis of right foot ([facility]) Has seen podiatry in the past Primary hypertension ([facility]) Please check blood pressure daily and record DASH diet Limit caffeine Take medication as directed Contact office if chest pain, pressure, dizziness, shortness of breath, swelling legs Recommend slow position changes Current meds: amlodipine, carvedilol, losartan/hydrochlorothiazide, aldactone Will increase dose on aldactone to 100mg daily Recheck blood pressure in 2 weeks-currently no symptoms 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 ([facility]) Continue with insulin Associated Problem(s): Hyperlipidemia ([facility]) On statin therapy Check labs yearly, and prn dose changes Associated Problem(s): Type 2 diabetes mellitus without complications ([facility]) Check blood sugars daily, notify [...] Associated Problem(s): Severe persistent asthma without complication ([facility]) Current meds: trelegy, albuterol #2 samples of trelegy: 100's, lot MV9W, exp 06/21 In the past has used trelegy 200, symbicort 160, and flovent Finds benefit with trelegy 100's Has seen pulmonology in the past Associated Problem(s): Type 2 diabetes mellitus with diabetic polyneuropathy, with long-term current use of insulin ([facility]) No current treatment Recommend proper fitting toes, freq foot inspections, good glycemic control documented in this encounter [facility] 07-29-2024 Instructions Luci Rios NP - 07/29/2024 3:20 PM EST Aldactone increase to 2 pills daily (total 100mg) Diabetes: I want to check with insurance about either Farxiga or Jardiance -it will be 1 pill daily, pulls sugar out through the urine. I will also check into the Mounjaro/Ozempic/Trulicity documented in this encounter [facility] 04-27-2024 History of Present illness Narrative Images from the original note were not included. Subjective Patient ID: aLvern Dewey is a 59 y.o. male who [...] shakes. Relevant Medications Continuous Glucose Sensor (FreeStyle Agueda 2 Plus Sensor) misc insulin glargine-yfgn (Semglee, [...] Continue current regimen. documented in this encounter [facility] 04-27-2024 Instructions Marquis Velasquez NP - 04/27/2024 3:30 PM EST Keep up the good work! Call if you need anything!!! documented in this encounter [facility] 02-24-2024 History of Present illness Narrative Images from the original note were not included. Subjective Patient ID: Lavern Dewey is a 59 y.o. male who presents for DM Foot Care (Lavern Dewey 59yo male, New Patient presents with [...] History: Diagnosis Date AYESHA (acute kidney injury) ([facility]) Arthritis of ankle, right Asthma ([facility]) Avascular necrosis of talus, right ([facility]) Dietrich cyst, right Enlarged and hypertrophic nails Eosinophilia Equinus contracture of right ankle Gastroesophageal reflux disease Hemorrhoids Hyperlipemia, mixed ([facility]) Hypertension ([facility]) Onychomycosis of toenail Osteoarthritis of both knees, unspecified osteoarthritis type Osteochondral defect of talus Pain, foot, right, chronic Peroneal tendinitis, right Right ankle pain Right leg swelling Severe persistent asthma ([facility]) Skin tags, multiple acquired Sprain of right ankle, sequela T2DM (type 2 diabetes mellitus) ([facility]) Medications Current Outpatient Medications: albuterol [...] Disp: 180 tablet, Rfl: 1 Continuous Glucose Inside Sales Supervisor ([employer] Agueda 2 Knox) device, 1 each in the morning and 1 each at noon and 1 each in the evening and 1 each before bedtime., Disp: 1 each, Rfl: 0 Amaxojtuscp-Kxwewpwsw-Tfihqf (Trelegy Ellipta) 200-62.5-25 MCG/ACT aerosol powder , [...] polyneuropathy, with long-term current use of insulin ([facility]) E11.42 Ambulatory referral to Podiatry Z79.4 3. Onychomycosis B35.1 Patient was examined and evaluated. Patient is low risk for diabetic foot complications. He does have some mild loss of vibratory sensation bilaterally to suggest early neuropathy. No preulcerative lesions. 10 toenails were debrided in length and thickness today utilizing a nail nipper and electric bur chisel grinder without incident. I have discussed the [...] Abisai Boateng DPM documented in this encounter [facility] 01-22-2024 History of Present illness Narrative Associated Problem(s): Severe persistent asthma without complication ([facility]) Trelegy And Albuterol PRN. Feels symptoms are well managed. Denies any exacerbations, cough, shortness of breath. Associated Problem(s): Type 2 diabetes mellitus with diabetic polyneuropathy, with long-term current use of insulin ([facility]) Glipizide 5mg Metformin 850mg Januvia [...] note were not included. Subjective Patient ID: Lavern Dewey is a 58 y.o. male who presents for Follow-up (3MO, ) and Poison Suzi ([facility] ER WAS GIVEN STEROID AND CREAM. [...] polyneuropathy, with long-term current use of insulin ([facility]) - Primary Glipizide 5mg Metformin [...] glipiZIDE (Glucotrol) 5 MG tablet insulin glargine-yfgn (Semglkandi, yfgn,) 100 UNIT/ML injection Severe persistent asthma without complication (CMS/HCC) Trelegy And Albuterol PRN. Feels symptoms are well managed. Denies any exacerbations, cough, shortness of breath. Relevant Medications albuterol HFA 90 mcg/act inhaler Mayvkoricxb-Iqhorwdlv-Ttiisi (Trelegy Ellipta) 200-62.5-25 MCG/ACT aerosol powder Gastroesophageal reflux disease without esophagitis Relevant Medications omeprazole (PriLOSEC) [address] cruz Hyperlipidemia ([facility]) Atorvastatin 40mg Denies myalgias Continue current regimen. Relevant Medications metFORMIN (Glucophage) 850 MG tablet aspirin 81 MG chewable tablet atorvastatin (Lipitor) 40 MG tablet Other Visit Diagnoses Type 2 diabetes mellitus without complication, with long-term current use of insulin ([facility]) Relevant Medications Continuous Glucose Inside Sales Supervisor ([employer] Agueda 2 Knox) device Primary hypertension ([facility]) Relevant Medications losartan-hydroCHLOROthiazide (Hyzaar) 100-25 MG tablet amLODIPine (Norvasc) 10 MG tablet documented in this encounter [facility] 01-22-2024 Instructions Marquis Velasquez NP - [...] and simple sugars. documented in this encounter [facility] 12-22-2021 Procedure note [facility] 10-26-2021 Note PROCEDURE: XR ANKLE RT [...] authenticated by: MICHELLE IBRAHIM Date: 2021-10-26 08:54 [facility] 09-05-2021 Note PROCEDURE: XR ANKLE RT MIN 3 VIEWS COMPARISON: None. 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 No acute fracture, dislocation or mechanical failure. Stable degenerative changes. Mild enthesopathic spurring of the calcaneus SOFT TISSUES:Mild soft tissue swelling EFFUSION:None visible. OTHER: Negative. IMPRESSION: Stable talus arthroplasty Electronically authenticated by: GERA BLUM Date: 2021-09-05 15:22 [facility] Evaluation note No assessment inform ation [facility] Work Phone: Evaluation note Diagnosis Primary hypertension (CMS/HCC)- Primary Unspecified essential hypertension Type 2 diabetes mellitus with diabetic polyneuropathy, with long-term current use of insulin ([facility]/HCC) Other hyperlipidemia (CMS/HCC) Gastroesophageal reflux disease without esophagitis Esophageal reflux Type 2 diabetes mellitus with diabetic polyneuropathy, with long-term current use of insulin ([facility]/HCC)- Primary Resistant hypertension (CMS/HCC) Hyperlipidemia, unspecified hyperlipidemia [...] complication, with long-term current use of insulin ([facility]/HCC) documented in this encounter [facility]* Diagnosis Primary hypertension (CMS/HCC)- Primary Unspecified essential hypertension Type 2 diabetes mellitus with diabetic polyneuropathy, with long-term current use of insulin (CMS/HCC) Other hyperlipidemia (CMS/HCC) Gastroesophageal reflux disease without esophagitis Esophageal reflux Type 2 diabetes mellitus with diabetic polyneuropathy, with long-term current use of insulin ([facility]/HCC)- Primary Resistant hypertension (CMS/HCC) Hyperlipidemia, unspecified hyperlipidemia type (CMS/HCC)- Primary Resistant hypertension (CMS/HCC) Type 2 diabetes mellitus with diabetic polyneuropathy, with long-term current use of insulin ([facility]/HCC) Gastroesophageal reflux disease without esophagitis Esophageal reflux Primary hypertension ([facility]/HCC) Unspecified essential hypertension Type 2 diabetes mellitus with diabetic polyneuropathy, with long-term current use of insulin ([facility]/HCC)- Primary Severe persistent asthma without complication ([facility]) Resistant hypertension ([facility]/HCC) Gastroesophageal reflux disease without esophagitis Esophageal reflux Mixed hyperlipidemia ([facility]/HCC) Mixed hyperlipidemia Type 2 diabetes mellitus without complication, with long-term current use of insulin ([facility]/HCC) Primary hypertension ([facility]/HCC) Unspecified essential hypertension Hyperlipidemia, unspecified hyperlipidemia type ([facility]/HCC) Type 2 diabetes mellitus with diabetic polyneuropathy, with long-term current use of insulin ([facility]/HCC)- Primary Resistant hypertension (CMS/HCC) Gastroesophageal reflux disease without esophagitis Esophageal reflux documented in this encounter [facility]* Diagnosis Primary hypertension ([facility]/HCC)- Primary Unspecified essential hypertension Type 2 diabetes mellitus with diabetic polyneuropathy, with long-term current use of insulin ([facility]/HCC) Other hyperlipidemia ([facility]/HCC) Gastroesophageal reflux disease without esophagitis Esophageal reflux Type 2 diabetes mellitus with diabetic polyneuropathy, with long-term current use of insulin ([facility]/HCC)- Primary Resistant hypertension (CMS/HCC) Hyperlipidemia, unspecified hyperlipidemia type ([facility]/HCC)- Primary Resistant hypertension (CMS/HCC) Type 2 diabetes mellitus with diabetic polyneuropathy, with long-term current use of insulin ([facility]/HCC) Gastroesophageal reflux disease without esophagitis Esophageal reflux Primary hypertension ([facility]/HCC) Unspecified essential hypertension Type 2 diabetes mellitus with diabetic polyneuropathy, with long-term current use of insulin ([facility]/HCC)- Primary Severe persistent asthma without complication (CMS/HCC) Resistant hypertension (CMS/HCC) Gastroesophageal reflux disease without esophagitis Esophageal reflux Mixed hyperlipidemia (CMS/HCC) Mixed hyperlipidemia Type 2 diabetes mellitus without complication, with long-term current use of insulin (CMS/HCC) Primary hypertension (CMS/HCC) Unspecified essential hypertension Hyperlipidemia, unspecified hyperlipidemia type (CMS/HCC) Type 2 diabetes mellitus with diabetic polyneuropathy, with long-term current use of insulin ([facility]/HCC)- Primary Resistant hypertension (CMS/HCC) Gastroesophageal reflux disease without esophagitis Esophageal reflux Type 2 diabetes mellitus with diabetic polyneuropathy, with long-term current use of insulin ([facility]/HCC)- Primary documented in this encounter [facility]* Diagnosis Type 2 diabetes mellitus with diabetic polyneuropathy, with long-term current use of insulin ([facility])- Primary Severe persistent asthma without complication ([facility]/HCC) Resistant hypertension ([facility]/HCC) Gastroesophageal reflux disease without esophagitis Esophageal reflux Mixed hyperlipidemia ([facility]) Mixed hyperlipidemia Type 2 diabetes mellitus without complication, with long-term current use of insulin ([facility]) Primary hypertension ([facility]) Unspecified essential hypertension Hyperlipidemia, unspecified hyperlipidemia type ([facility]/HCC) documented in this encounter [facility]* Diagnosis Onychodystrophy- Primary Other specified disease of nail Type 2 diabetes mellitus with diabetic polyneuropathy, with long-term current use of insulin ([facility]) Onychomycosis Dermatophytosis of nail documented in this encounter [facility]* Diagnosis Primary hypertension ([facility]/HCC)- Primary Unspecified essential hypertension Type 2 diabetes mellitus with diabetic polyneuropathy, with long-term current use of insulin ([facility]) Other hyperlipidemia ([facility]) Gastroesophageal reflux disease without esophagitis Esophageal reflux Type 2 diabetes mellitus with diabetic polyneuropathy, with long-term current use of insulin ([facility])- Primary Resistant hypertension (CMS/HCC) Hyperlipidemia, unspecified hyperlipidemia type ([facility]/HCC)- Primary Resistant hypertension (CMS/HCC) Type 2 diabetes mellitus with diabetic polyneuropathy, with long-term current use of insulin ([facility]/HCC) Gastroesophageal reflux disease without esophagitis Esophageal reflux Primary hypertension ([facility]/HCC) Unspecified essential hypertension Type 2 diabetes mellitus with diabetic polyneuropathy, with long-term current use of insulin ([facility])- Primary Severe persistent asthma without [...] without complication (CMS/HCC) documented in this encounter [facility]* Diagnosis Primary hypertension (CMS/HCC)- Primary [...] Type 2 diabetes mellitus without complications (CMS/HCC) FDC (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 (CMS/HCC) Morbid (severe) obesity due to excess calories (CMS/HCC) Gastro-esophageal reflux disease without esophagitis Body mass index (BMI) 38.0-38.9, adult 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 polyneuropathy, with long-term current use of insulin (CMS/HCC) Severe persistent asthma without complication (CMS/HCC) Mixed hyperlipidemia (CMS/HCC) Mixed hyperlipidemia documented in this encounter [facility]* Diagnosis Primary hypertension (CMS/HCC)- Primary [...] Type 2 diabetes mellitus without complications (CMS/HCC) 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 (CMS/HCC) Morbid (severe) [...] examination of blood documented in this encounter [facility]* Diagnosis Primary hypertension (CMS/HCC)- Primary [...] polyneuropathy, with long-term current use of insulin ([facility]) Gastroesophageal reflux disease without esophagitis [...] hypertension Type 2 diabetes mellitus without complications FDC (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 (CMS/HCC) Morbid (severe) obesity due to excess calories (CMS/HCC) Gastro-esophageal reflux disease without esophagitis Body mass index (BMI) 38.0-38.9, adult 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 polyneuropathy, with long-term current use of insulin ([facility]/HCC) Severe persistent asthma without complication (CMS/HCC) Mixed [...] of insulin (CMS/HCC) documented in this encounter [facility]* Diagnosis Primary hypertension (CMS/HCC)- Primary Unspecified essential hypertension Type 2 diabetes mellitus with diabetic polyneuropathy, with long-term current use of insulin (CMS/HCC) Other hyperlipidemia Gastroesophageal reflux disease without esophagitis Esophageal reflux Type 2 diabetes mellitus with diabetic polyneuropathy, with long-term current use of insulin ([facility]/HCC)- Primary Resistant hypertension (CMS/HCC) Hyperlipidemia, unspecified hyperlipidemia [...] hypertension Type 2 diabetes mellitus without complications 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 (CMS/HCC) Morbid (severe) [...] examination of blood documented in this encounter [facility]* Diagnosis Primary hypertension (CMS/HCC)- Primary [...] hypertension Type 2 diabetes mellitus without complications FDC (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 (CMS/HCC) Morbid (severe) [...] use of insulin documented in this encounter [facility]* Diagnosis Primary hypertension (CMS/HCC)- Primary Unspecified essential hypertension Type 2 diabetes mellitus with diabetic polyneuropathy, with long-term current use of insulin (CMS/HCC) Other hyperlipidemia Gastroesophageal reflux disease without esophagitis Esophageal reflux Type 2 diabetes mellitus with diabetic polyneuropathy, with long-term current use of insulin ([facility]/HCC)- Primary Resistant hypertension (CMS/HCC) Hyperlipidemia, unspecified hyperlipidemia type (CMS/HCC)- Primary Resistant hypertension (CMS/HCC) Type 2 diabetes mellitus with diabetic polyneuropathy, with long-term current use of insulin ([facility]/HCC) Gastroesophageal reflux disease without esophagitis Esophageal reflux [...] hypertension Type 2 diabetes mellitus without complications 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 (CMS/HCC) Morbid (severe) [...] essential hypertension Edema of both lower extremities 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 (CMS/HCC) Morbid (severe) obesity due to excess calories (CMS/HCC) Severe persistent asthma without complication (CMS/HCC) Elevated serum creatinine Other nonspecific findings on examination of blood documented in this encounter [facility]* Diagnosis Primary hypertension- Primary Unspecified essential hypertension Type 2 diabetes mellitus with diabetic polyneuropathy, with long-term current use of insulin (HCC) Other hyperlipidemia Gastroesophageal reflux disease without esophagitis Esophageal reflux Type 2 diabetes mellitus with diabetic polyneuropathy, with long-term current use of insulin (HCC)- Primary Resistant hypertension Hyperlipidemia, unspecified hyperlipidemia type- Primary Resistant hypertension Type 2 diabetes mellitus with diabetic polyneuropathy, with long-term current use of insulin (HCC) Gastroesophageal reflux disease without esophagitis Esophageal reflux Primary hypertension Unspecified essential hypertension Type 2 diabetes mellitus with diabetic polyneuropathy, with long-term current use of insulin (HCC)- Primary Severe persistent asthma without complication (HCC) Resistant hypertension Gastroesophageal reflux disease without esophagitis Esophageal reflux Mixed hyperlipidemia Mixed hyperlipidemia Type 2 diabetes mellitus without complication, with long-term current use of insulin (HCC) Primary hypertension Unspecified essential hypertension Hyperlipidemia, unspecified hyperlipidemia type Type 2 diabetes mellitus with diabetic polyneuropathy, with long-term current use of insulin (HCC)- Primary Resistant hypertension Gastroesophageal reflux disease without esophagitis Esophageal reflux Primary hypertension- Primary Unspecified essential hypertension Type 2 diabetes mellitus without complications (HCC) FDC (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 (HCC) Morbid (severe) obesity due to excess calories ([facility]-HCC) Gastro-esophageal reflux disease without esophagitis Body mass index (BMI) 38.0-38.9, adult 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) Type 2 diabetes mellitus with diabetic polyneuropathy, with long-term current use of insulin (HCC) Severe persistent asthma without complication (HCC) Mixed hyperlipidemia Mixed hyperlipidemia Primary hypertension- Primary Unspecified essential hypertension Morbid (severe) obesity due to excess calories ([facility]-HCC) Type 2 diabetes mellitus without complication, with long-term current use of insulin (HCC) Hyperlipidemia, unspecified hyperlipidemia type Resistant hypertension Type 2 diabetes mellitus with diabetic polyneuropathy, with long-term current use of insulin (HCC) Gastroesophageal reflux disease without esophagitis Esophageal reflux Edema of both lower extremities Type 2 diabetes mellitus without complication, with long-term current use of insulin (HCC)- Primary Type 2 diabetes mellitus with diabetic polyneuropathy, with long-term current use of insulin (HCC) Primary hypertension Unspecified essential hypertension Edema of both lower extremities FDC (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 (HCC) Morbid (severe) obesity due to excess calories ([facility]-HCC) Severe persistent asthma without complication (HCC) Elevated serum creatinine Other nonspecific findings on examination of blood Type 2 diabetes mellitus with diabetic polyneuropathy, with long-term current use of insulin (HCC)- Primary Primary hypertension Unspecified essential hypertension Morbid (severe) obesity due to excess calories (CMS-HCC) Type 2 diabetes mellitus without complication, with long-term current use of insulin (HCC) Resistant hypertension Hyperlipidemia, unspecified hyperlipidemia type Type 2 diabetes mellitus without complications (HCC) Severe persistent asthma without complication (HCC) Gastroesophageal reflux disease without esophagitis Esophageal reflux documented in this encounter [facility]* Diagnosis Primary hypertension- Primary Unspecified essential hypertension Type 2 diabetes mellitus with diabetic polyneuropathy, with long-term current use of insulin (HCC) Other hyperlipidemia Gastroesophageal reflux disease without esophagitis Esophageal reflux Type 2 diabetes mellitus with diabetic polyneuropathy, with long-term current use of insulin (HCC)- Primary Resistant hypertension Hyperlipidemia, unspecified hyperlipidemia type- Primary Resistant hypertension Type 2 diabetes mellitus with diabetic polyneuropathy, with long-term current use of insulin (HCC) Gastroesophageal reflux disease without esophagitis Esophageal reflux Primary hypertension Unspecified essential hypertension Type 2 diabetes mellitus with diabetic polyneuropathy, with long-term current use of insulin (HCC)- Primary Severe persistent asthma without complication (HCC) Resistant hypertension Gastroesophageal reflux disease without esophagitis Esophageal reflux Mixed hyperlipidemia Mixed hyperlipidemia Type 2 diabetes mellitus without complication, with long-term current use of insulin (HCC) Primary hypertension Unspecified essential hypertension Hyperlipidemia, unspecified hyperlipidemia type Type 2 diabetes mellitus with diabetic polyneuropathy, with long-term current use of insulin (HCC)- Primary Resistant hypertension Gastroesophageal reflux disease without esophagitis Esophageal reflux Primary hypertension- Primary Unspecified essential hypertension Type 2 diabetes mellitus without complications (HCC) FDC (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 (HCC) Morbid (severe) obesity due to excess calories (CMS-HCC) Gastro-esophageal reflux disease without esophagitis Body mass index (BMI) 38.0-38.9, adult 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) Type 2 diabetes mellitus with diabetic polyneuropathy, with long-term current use of insulin (HCC) Severe persistent asthma without complication (HCC) Mixed hyperlipidemia Mixed hyperlipidemia Primary hypertension- Primary Unspecified essential hypertension Morbid (severe) obesity due to excess calories (CMS-HCC) Type 2 diabetes mellitus without complication, with long-term current use of insulin (HCC) Hyperlipidemia, unspecified hyperlipidemia type Resistant hypertension Type 2 diabetes mellitus with diabetic polyneuropathy, with long-term current use of insulin (HCC) Gastroesophageal reflux disease without esophagitis Esophageal reflux Edema of both lower extremities Type 2 diabetes mellitus without complication, with long-term current use of insulin (HCC)- Primary Type 2 diabetes mellitus with diabetic polyneuropathy, with long-term current use of insulin (HCC) Primary hypertension Unspecified essential hypertension Edema of both lower extremities FDC (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 (HCC) Morbid (severe) obesity due to excess calories (CMS-HCC) Severe persistent asthma without complication (HCC) Elevated serum creatinine Other nonspecific findings on examination of blood Type 2 diabetes mellitus with diabetic polyneuropathy, with long-term current use of insulin (HCC)- Primary Primary hypertension Unspecified essential hypertension Morbid (severe) obesity due to excess calories (CMS-HCC) Type 2 diabetes mellitus without complication, with long-term current use of insulin (HCC) Resistant hypertension Hyperlipidemia, unspecified hyperlipidemia type Type 2 diabetes mellitus without complications (HCC) Severe persistent asthma without complication (HCC) Gastroesophageal reflux disease without esophagitis Esophageal reflux Type 2 diabetes mellitus without complication, with long-term current use of insulin (HCC)- Primary documented in this encounter [facility]* Diagnosis Primary hypertension- Primary Unspecified essential hypertension Type 2 diabetes mellitus with diabetic polyneuropathy, with long-term current use of insulin (HCC) Other hyperlipidemia Gastroesophageal reflux disease without esophagitis Esophageal reflux Type 2 diabetes mellitus with diabetic polyneuropathy, with long-term current use of insulin (HCC)- Primary Resistant hypertension Hyperlipidemia, unspecified hyperlipidemia type- Primary Resistant hypertension Type 2 diabetes mellitus with diabetic polyneuropathy, with long-term current use of insulin (HCC) Gastroesophageal reflux disease without esophagitis Esophageal reflux Primary hypertension Unspecified essential hypertension Type 2 diabetes mellitus with diabetic polyneuropathy, with long-term current use of insulin (HCC)- Primary Severe persistent asthma without complication (HCC) Resistant hypertension Gastroesophageal reflux disease without esophagitis Esophageal reflux Mixed hyperlipidemia Mixed hyperlipidemia Type 2 diabetes mellitus without complication, with long-term current use of insulin (HCC) Primary hypertension Unspecified essential hypertension Hyperlipidemia, unspecified hyperlipidemia type Type 2 diabetes mellitus with diabetic polyneuropathy, with long-term current use of insulin (HCC)- Primary Resistant hypertension Gastroesophageal reflux disease without esophagitis Esophageal reflux Primary hypertension- Primary Unspecified essential hypertension Type 2 diabetes mellitus without complications (HCC) FDC (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 (HCC) Morbid (severe) obesity due to excess calories ([facility]-HCC) Gastro-esophageal reflux disease without esophagitis Body mass index (BMI) 38.0-38.9, adult 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) Type 2 diabetes mellitus with diabetic polyneuropathy, with long-term current use of insulin (HCC) Severe persistent asthma without complication (HCC) Mixed hyperlipidemia Mixed hyperlipidemia Primary hypertension- Primary Unspecified essential hypertension Morbid (severe) obesity due to excess calories (CMS-HCC) Type 2 diabetes mellitus without complication, with long-term current use of insulin (HCC) Hyperlipidemia, unspecified hyperlipidemia type Resistant hypertension Type 2 diabetes mellitus with diabetic polyneuropathy, with long-term current use of insulin (HCC) Gastroesophageal reflux disease without esophagitis Esophageal reflux Edema of both lower extremities Type 2 diabetes mellitus without complication, with long-term current use of insulin (HCC)- Primary Type 2 diabetes mellitus with diabetic polyneuropathy, with long-term current use of insulin (HCC) Primary hypertension Unspecified essential hypertension Edema of both lower extremities FDC (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 (HCC) Morbid (severe) obesity due to excess calories (CMS-HCC) Severe persistent asthma without complication (HCC) Elevated serum creatinine Other nonspecific findings on examination of blood Type 2 diabetes mellitus with diabetic polyneuropathy, with long-term current use of insulin (HCC)- Primary Primary hypertension Unspecified essential hypertension Morbid (severe) obesity due to excess calories (CMS-HCC) Type 2 diabetes mellitus without complication, with long-term current use of insulin (HCC) Resistant hypertension Hyperlipidemia, unspecified hyperlipidemia type Type 2 diabetes mellitus without complications (HCC) Severe persistent asthma without complication (HCC) Gastroesophageal reflux disease without esophagitis Esophageal reflux Type 2 diabetes mellitus without complication, with long-term current use of insulin (HCC)- Primary documented in this encounter [facility]Evaluation note* Diagnosis Primary hypertension- Primary Unspecified essential hypertension Type 2 diabetes mellitus with diabetic polyneuropathy, with long-term current use of insulin (HCC) Other hyperlipidemia Gastroesophageal reflux disease without esophagitis Esophageal reflux Type 2 diabetes mellitus with diabetic polyneuropathy, with long-term current use of insulin (HCC)- Primary Resistant hypertension Hyperlipidemia, unspecified hyperlipidemia type- Primary Resistant hypertension Type 2 diabetes mellitus with diabetic polyneuropathy, with long-term current use of insulin (HCC) Gastroesophageal reflux disease without esophagitis Esophageal reflux Primary hypertension Unspecified essential hypertension Type 2 diabetes mellitus with diabetic polyneuropathy, with long-term current use of insulin (HCC)- Primary Severe persistent asthma without complication (HCC) Resistant hypertension Gastroesophageal reflux disease without esophagitis Esophageal reflux Mixed hyperlipidemia Mixed hyperlipidemia Type 2 diabetes mellitus without complication, with long-term current use of insulin (HCC) Primary hypertension Unspecified essential hypertension Hyperlipidemia, unspecified hyperlipidemia type Type 2 diabetes mellitus with diabetic polyneuropathy, with long-term current use of insulin (HCC)- Primary Resistant hypertension Gastroesophageal reflux disease without esophagitis Esophageal reflux Primary hypertension- Primary Unspecified essential hypertension Type 2 diabetes mellitus without complications (HCC) FDC (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 (HCC) Morbid (severe) obesity due to excess calories (CMS-HCC) Gastro-esophageal reflux disease without esophagitis Body mass index (BMI) 38.0-38.9, adult 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) Type 2 diabetes mellitus with diabetic polyneuropathy, with long-term current use of insulin (HCC) Severe persistent asthma without complication (HCC) Mixed hyperlipidemia Mixed hyperlipidemia Primary hypertension- Primary Unspecified essential hypertension Morbid (severe) obesity due to excess calories (CMS-HCC) Type 2 diabetes mellitus without complication, with long-term current use of insulin (HCC) Hyperlipidemia, unspecified hyperlipidemia type Resistant hypertension Type 2 diabetes mellitus with diabetic polyneuropathy, with long-term current use of insulin (HCC) Gastroesophageal reflux disease without esophagitis Esophageal reflux Edema of both lower extremities Type 2 diabetes mellitus without complication, with long-term current use of insulin (HCC)- Primary Type 2 diabetes mellitus with diabetic polyneuropathy, with long-term current use of insulin (HCC) Primary hypertension Unspecified essential hypertension Edema of both lower extremities 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 (HCC) Morbid (severe) obesity due to excess calories (CMS-HCC) Severe persistent asthma without complication (HCC) Elevated serum creatinine Other nonspecific findings on examination of blood Type 2 diabetes mellitus with diabetic polyneuropathy, with long-term current use of insulin (HCC)- Primary Primary hypertension Unspecified essential hypertension Morbid (severe) obesity due to excess calories (CMS-HCC) Type 2 diabetes mellitus without complication, with long-term current use of insulin (HCC) Resistant hypertension Hyperlipidemia, unspecified hyperlipidemia type Type 2 diabetes mellitus without complications (HCC) Severe persistent asthma without complication (HCC) Gastroesophageal reflux disease without esophagitis Esophageal reflux Chronic pain of right ankle- Primary Type 2 diabetes mellitus with diabetic polyneuropathy, with long-term current use of insulin (HCC) Primary hypertension Unspecified essential hypertension Type 2 diabetes mellitus without complication, with long-term current use of insulin (HCC) Morbid (severe) obesity due to excess calories (CMS-HCC) Severe persistent asthma without complication (HCC) Edema of both lower extremities documented in this encounter [facility] note Author Sav Andrews [facility] December 22, 2021 9:32am Note Date/Time December 22, 2021 9:32 am [facility] [address] [place] [address] Gastroenterology H&P Signed Patient: Lavern Escobedo MR #: [id number] : 1965 Acct:[id number] Age/Sex: 56 / M Adm Date: 2 Loc: Room: Type: [facility] Attending Dr: Sav Andrews MD Copies [...] <Electronically signed by Sav Andrews MD> 12/22/21931 [facility] Work Phone: Reason for referral (narrative)* Consultation (Routine) - Pending Review Specialty Diagnoses / Procedures Referred By Magdy charlton Referred To Contact Podiatry Diagnoses Type 2 diabetes mellitus with diabetic polyneuropathy, with long-term current use of insulin ([facility]) Procedures [place] OFFICE/OUTPATIENT NEW HIGH MDM 60 MINUTES Marquis Velasquez NP [address] [place] [phone] MejiaRita, DPM [address] [place] [address] Referral ID Status Reason Start Date Expiration Date Visits Requested Visits Authorized [id number] Pending Review Specialty Services Required 01/22/2024 07/20/2024 [...] Active Silver Briceño DO Attending Provider Active Geophysical Support Specialist Relationship Specialty Start Date End Date Antwan Perez MD [address] [place] [phone] PCP - General Family Medicine 12/30/23 Marquis Velasquez NP [address] [place] [address] Nurse Practitioner Family Medicine 12/30/23 Geophysical Support Specialist Relationship Specialty Start Date End Date Antwan Perez MD [address] [place] [phone] PCP - General Family Medicine 12/30/23 Shaikh Baker MD [address] [place] [phone] PCP - [employer] 02/25/24 Marquis Velasquez NP [address] [place] [address] Nurse Practitioner Family Medicine 12/30/23 Geophysical Support Specialist Relationship Specialty Start Date End Date Antwan Perez MD [address] [place] [phone] PCP - General Family Medicine 12/30/23 Shaikh Baker MD [address] [place] [phone] PCP - [employer] 02/25/24 Marquis Velasquez NP [address] [place] [address] Nurse Practitioner Family Medicine 12/30/23 Geophysical Support Specialist Relationship Specialty Start Date End Date Antwan Perez MD [address] [place] [phone] PCP - General Family Medicine 12/30/23 Shaikh Baker MD [address] [place] [phone] PCP - [employer] 02/25/24 Marquis Velasquez NP [address] [place] [address] Nurse Practitioner Family Medicine 12/30/23 Geophysical Support Specialist Relationship Specialty Start Date End Date Antwan Perez MD [address] [place] [phone] PCP - General Family Medicine 12/30/23 Marquis Velasquez NP [address] [place] [address] Nurse Practitioner Family Medicine 12/30/23 Geophysical Support Specialist Relationship Specialty Start Date End Date Antwan Perez MD [address] [place] [phone] PCP - General Family Medicine 12/30/23 Marquis Velasquez NP [address] [place] [address] Nurse Practitioner Family Medicine 12/30/23 Geophysical Support Specialist Relationship Specialty Start Date End Date Antwan Perez MD [address] [place] [phone] PCP - General Family Medicine 12/30/23 Marquis Velasquez NP [address] [place] [address] Nurse Practitioner Family Medicine 12/30/23 Geophysical Support Specialist Relationship Specialty Start Date End Date Antwan Perez MD [address] [place] [phone] PCP - General Family Medicine 12/30/23 Marquis Velasquez NP [address] [place] [address] Nurse Practitioner Family Medicine 12/30/23 Geophysical Support Specialist Relationship Specialty Start Date End Date Antwan Perez MD [address] [place] [phone] PCP - General Family Medicine 12/30/23 Marquis Velasquez NP [address] [place] [address] Nurse Practitioner Family Medicine 12/30/23 Geophysical Support Specialist Relationship Specialty Start Date End Date Antwan Perez MD [address] [place] [phone] PCP - General Family Medicine 12/30/23 Shaikh Baker MD [address] [place] [phone] PCP - [facility] 02/25/24 Marquis Velasquez NP [address] [place] [address] Nurse Practitioner Family Medicine 12/30/23 Geophysical Support Specialist Relationship Specialty Start Date End Date Antwan Perez MD [address] [place] [phone] PCP - General Family Medicine 12/30/23 Shaikh Baker MD [address] [place] [address] PCP - [employer] 02/25/24 Marquis Velasquez NP [address] [place] [address] Nurse Practitioner Family Medicine 12/30/23 Geophysical Support Specialist Relationship Specialty Start Date End Date Antwan Perez MD [address] [place] [address] PCP - General Family Medicine 12/30/23 Shaikh Baker MD [address] [place] [phone] PCP - [employer] 02/25/24 Marquis Velasquez NP [address] [place] [address] Nurse Practitioner Family Medicine 12/30/23 Geophysical Support Specialist Relationship Specialty Start Date End Date Antwan Perez MD [address] [place] [phone] PCP - General Family Medicine 12/30/23 Shaikh Baker MD [address] [place] [address] PCP - [employer] 02/25/24 Marquis Velasquez NP [address] [place] [address] Nurse Practitioner Family Medicine 12/30/23 Geophysical Support Specialist Relationship Specialty Start Date End Date Antwan Perez MD [address] [place] [address] PCP - General Family Medicine 12/30/23 Shaikh Baker MD [address] [place] [address] PCP - [employer] 02/25/24 Marquis Velasquez NP [address] [place] [address] Nurse Practitioner Family Medicine 12/30/23 Geophysical Support Specialist Relationship Specialty Start Date End Date Antwan Perez MD [address] [place] [address] PCP - General Family Medicine 12/30/23 Shaikh Baker MD [address] [place] [address] PCP - [employer] 02/25/24 Marquis Velasquez NP [address] [place] [address] Nurse Practitioner Family Medicine 12/30/23 Geophysical Support Specialist Relationship Specialty Start Date End Date Antwan Perez MD [address] [place] [address] PCP - General Family Medicine 12/30/23 Shaikh Baker MD [address] [place] [address] PCP - [employer] 02/25/24 Marquis Velasquez NP [address] [place] [address] Nurse Practitioner Family Medicine 12/30/23 Geophysical Support Specialist Relationship Specialty Start Date End Date Antwan Perez MD [address] [place] [address] PCP - General Family Medicine 12/30/23 Shaikh Baker MD [address] [place] [address] PCP - [facility] 02/25/24 Marquis Velasquez NP [address] [place] [address] Nurse Practitioner Family Medicine 12/30/23 Geophysical Support Specialist Relationship Specialty Start Date End Date Antwan Perez MD [address] [place] [address] PCP - General Family Medicine 12/30/23 Marquis Velasquez NP [address] [place] [address] Nurse Practitioner Family Medicine 12/30/23 Geophysical Support Specialist Relationship Specialty Start Date End Date Antwan Perez MD [address] [place] [address] PCP - General Family Medicine 12/30/23 Marquis Velasquez NP [address] [place] [address] Nurse Practitioner Family Medicine 12/30/23 Geophysical Support Specialist Relationship Specialty Start Date End Date Antwan Perez MD [address] [place] [address] PCP - General Family Medicine 12/30/23 Marquis Velasquez NP [address] [place] [address] Nurse Practitioner Family Medicine 12/30/23 Geophysical Support Specialist Relationship Specialty Start Date End Date Antwan Perez MD [address] [place] [address] PCP - General Family Medicine 12/30/23 Marquis Velasquez NP [address] [place] [address] Nurse Practitioner Family Medicine 12/30/23 Geophysical Support Specialist Relationship Specialty Start Date End Date Antwan Perez MD [address] [place] [address] PCP - General Family Medicine 12/30/23 Marquis Velasquez NP [address] [place] [address] Nurse Practitioner Family Medicine 12/30/23 Geophysical Support Specialist Relationship Specialty Start Date End Date Antwan Perez MD [address] [place] [address] PCP - General Family Medicine 12/30/23 Marquis Velasquez NP [address] [place] [address] Nurse Practitioner Family Medicine 12/30/23 Geophysical Support Specialist Relationship Specialty Start Date End Date Antwan Perez MD [address] [place] [address] PCP - General Family Medicine 12/30/23 Marquis Velasquez NP [address] [place] [address] Nurse Practitioner Family Medicine 12/30/23 Geophysical Support Specialist Relationship Specialty Start Date End Date Antwan Perez MD [address] [place] [address] PCP - General Family Medicine 12/30/23 Marquis Velasquez NP [address] [place] [address] Nurse Practitioner Family Medicine 12/30/23 Geophysical Support Specialist Relationship Specialty Start Date End Date Antwan Perez MD [address] [place] [address] PCP - General Family Medicine 12/30/23 Marquis Velasquez NP [address] [place] [address] Nurse Practitioner Family Medicine 12/30/23 Geophysical Support Specialist Relationship Specialty Start Date End Date Antwan Perez MD [address] [place] [phone] PCP - General Family Medicine 12/30/23 Marquis Velasquez NP [address] [place] [address] Nurse Practitioner Family Medicine 12/30/23 (unrecognized sect ion and content) No Status Records FoundNo Status Records FoundNo Status Records Found INFORMATION SOURCE (unrecogn ized section and content) DATE CREATED AUTHOR 07/14/2022 [facility] DATE CREATED AUTHOR AUTHOR'S ORGANIZ ATION 10/02/2022 [facility] DATE CREATED AUTHOR AUTHOR'S ORGANIZ ATION 11/21/2024 [facility] EPIC Goals (unrecognized section and content) Goals may be documented in a n alternate section Reason for Visit (unrecogniz ed section and content) Reason Onset Date Comments Med Refill 03/18/2024 Reason Comments Follow-up Med Refills Reason Onset Date Comments Med Refill 05/06/2024 Reason Comments Follow-up 3MO, Poison [facility] WAS GIVEN FADI ROID AND CREAM. PT HAS BEEN DONE FOR ONE WEEK, BUT RASH IS STILL PRESENT AND BLISTERING. Reason Comments DM Foot Care Lavern Morgan s 59yo male, New Patient presents with referral from Marquis Velasquez 01/22/2024 for diabetic nail care and polyneuropathy.Patient relates his nails are thick and difficult to trim. BS 01/22/2024 A1C SS 9.5 Specialty Diagnoses / Procedures Referred By Magdy charlton Referred To Contact Podiatry Diagnoses Type 2 diabetes mellitus with diabetic polyneuropathy, with long-term current use of insulin ([facility]) Procedures [place] OFFICE/OUTPATIENT NEW HIGH MDM 60 MINUTES Marquis Velasquez, [employer] [address] [place] [address] Rita Mejia, DPM [address] [place] [address] Referral ID Status Reason Start Date Expiration Date V isits Requested Visits Authorized [id number] Closed Specialty Services Required 01/22/2024 07/20/2024 1 1 Reason Comments Med Refill Reason Comments DM Foot Care PCP: Luci Phillips LV 08/18/24, A1C: 8.3, BS: 142 Reason Comments Hypertension Reason Comments Diabetes Reason Comments Diabetes FOR RECORDS PERTAINING TO PATIENTS WHO ARE [...] BE BASED ON THE PRIMARY CLINICAL RECORDS. [facility] [employer] [facility]. provides no warranty or guarantee of the accuracy or completeness of information in this document.
== END 2024-12-31 16:57 | disposition home or self-care (01) ==
LOC: RAD 16:58
PROVIDERS: PCP Nurse Practitioner; Visit Provider Nurse Practitioner
DX: R60.0 Localized edema (principal); M25.571 Pain in right ankle and joints of right foot; G89.29 Other chronic pain; M24.671 Ankylosis, right ankle
CPT/HCPCS: 73610; 93971

== ENCOUNTER 2025-04-28 14:59 | Outpatient (OUT) | payer BC, SELFPAY ==
--- OUTSIDE RECORDS SUMMARY | 2024-10-14 10:30 | XMS_ITS ---
Author Organization The [facility] in [place] Address [address] [place] [address] Care Team Providers Care Stock Parts Inspector Name Role Phone Luci Rios CNP Primary Care Provider Unavail Bharath Reyes Unavailable [phone] REASON FOR VISIT 6 month f/u Encounters Encounter Location Date Provider Diagnosis [facility] (PODIATRY) [address] [place] [address] [place] [address] 10/14/2024 Bharath Perez Plan Of Treatment No Information Progress Notes * Dante ESCOBEDODOB: (60 yo M)Acc No.[id number]:10/14/2024 UNLOCKED PROGRESS NOTE Follow Up Patient: Dante GRAY :?Bharath Perez DPM, MSDOB:1965???Age: 59 Y???Sex:MaleDate:10/14/2024Phone:[phone]:[id number]:Luci Rios CNP Subjective: * Chief Complaints: * 1 . 6 month f/u. * Medical History: Objective: * Vitals: Assessment: Plan: * Treatment: * * Electronic signature of Bharath Perez DPM on 04/28/2025 at 03:05 PM ESTSign off status: PendingVisit Status:?CANC (Cancelled) * Provider: Kishore Perez DPM, MS Date: 0 10/14/2024 Generated for Printing/Faxing/eTransmitting on:?04/28/2025 03:05 PM EST
--- OUTSIDE RECORDS SUMMARY | 2024-11-03 11:30 | XMS_ITS ---
Author Organization [facility] [place] Address [address] [place] [address] Care Team Providers Care Rib Puller Name Role Phone Luci Rios CNP Primary Care Provider Unavail Lane Powell Unavailable [phone] REASON FOR VISIT 1y F/U - Asthma Encounters Encounter Location Date Provider Diagnosis Pulmonary Medicine [address] [address] 11/03/2024 [address] Durbin Plan Of Treatment No Information Progress Notes * HERBERT AMAYAANTESDanteDOB: (60 yo M)Acc No.[id number]:11/03/2024 UNLOCKED PROGRESS NOTE Follow Up Patient: Hai GARCIA Dante :?Lane Durbin DODOB:1965???Age:59 Y ???Sex:MaleDate:11/03/2024Phone:[phone]:ANASTASIYA PASCUAL [id number]:Luci Rios CNP Subjective: * Chief Complaints: * 1 . 1y F/U - Asthma. * Medical History: Objective: * Vitals: Assessment: Plan: * Treatment: * * Electronic signature of Lane Durbin DO on 04/28/2025 at 03:05 PM ESTSign off status: PendingVisit Status:?R/S (Rescheduled) * Provider: Shani Durbin DO Date: 0 11/03/2024 Generated for Printing/Faxing/eTransmitting on:?04/28/2025 03:05 PM EST
--- NOTE | 2025-04-28 | ECG_ITS ---
The [facility] Test Date: 2025-04-28 Pat Name: LAVERN GARCIA Department: Room: - Gender: Male Field Assistant: : 1965 Requested By: DEANN GILBERT Order Number: [id number] Reading MD: KEVIN CRAWFORD M.D. Measurements Intervals [place] Rate: 54 P: 51 OR: 148 QRS: 44 QRSD: 102 T: -2 QT: 410 QTc: 389 Interpretive Statements SINUS BRADYCARDIA INCOMPLETE RIGHT BUNDLE BRANCH BLOCK [90+ ms QRS DURATION, TERMINAL R IN V1/V2, 40+ ms S IN I/aVL/V4/V5/V6] NONSPECIFIC T-WAVE ABNORMALITY Abnormal ECG Compared to ECG 02/25/2023 15:17:34 T-wave abnormality now present Electronically Signed On 04-28-2025 19:51:53 EST by KEVIN CRAWFORD M.D.
--- OUTSIDE RECORDS SUMMARY | 2025-04-28 15:04 | XMS_ITS | CCD ---
Author Organization [facility] Care Team Providers Care Recenterer Name Role Phone MD Sav Andrews Attending Provider [phone] MD Deana Baker Primary Care Provider [phone] DR ASA AL Attending Unavailable ACACIA JENKINS Primary Care Unavailable MIKAELA, DR BRAY Admitting Unavailable KATIE COKER Attending Unavailable ULISES, DR GERA Kwan Consulting Unavailable MARIO, KATIE Admitting Unavailable GREGORY ACACIAMARY JO ELIZALDE Primary Care Unavailable MARIOKATIE Consulting Unavailable FAWWAD, ANGELO H Admitting Unavailable FAWWAD, ANGELO H Primary Care Unavailable FAWWAD, ANGELO H Consulting Unavailable FAWWAD, ANGELO H Attending Unavailable REY ALCARAZ Attending Unavailable REY ALCARAZ Admitting Unavailable FAWWAD, ANGELO H Primary Care Unavailable ALEXANDRIA, DR MICHELLE Valles Consulting Unavailable HIGHLREY EVERETT Consulting Unavailable REY ALCARAZ Admitting Unavailable ULISES, DR GERA Kwan Consulting Unavailable REY ALCARAZ [...] Care Provider DO Silver Briceño Attending Provider [phone] Sav Andrews Attending Unavailable Sav Andrews Admitting Unavailable Samuel, Angelo Primary Care Unavailable Silver Briceño Attending Unavailable Silver Briceño Admitting Unavailable Fawivonned, [facility] Primary Care Unavailable Sav Andrews Admitting Unavailable Sav Andrews Attending Unavailable Silver Briceño Attending Unavailable Silver Briceño Admitting Unavailable Faelzbieta, [facility] Primary Care Unavailable Antwan Perez MD Primary Care Provider Eva TENNIS PLAYER, Marquis Unavailable Samuel GUPTA, Unavailable Eva TENNIS PLAYER, Marquis Unavailable [phone] Blanca TENNIS PLAYER-C, Luci Olivera Primary Care Provider Blanca TENNIS PLAYER-C, Luci Olivera Attending Provider Antwan Perez MD Primary Care Provider Aicmicheline TENNIS PLAYER, Luci Unavailable AICHMARIKA, LUCI Attending Unavailable AICHHOLZ, LUCI Attending Unavailable ABISAI BOATENG Attending Unavailable AICHHOLZ, LUCI Attending Unavailable AICHHOLZ, LUCI Attending Unavailable AICHHOLZ, LUCI Attending Unavailable VELASQUEZ, MARQUIS Attending Unavailabl e AICHHOLZ, LUCI Attending Unavailable ABISAI BOATENG Attending Unavailable Ana GUPTA, Antwan Primary Care Provider Eva TENNIS PLAYER, Marquis Unavailable [phone] Shaikh Baker MD Unavailable Blanca TENNIS PLAYER, Luci Unavailable Samuel GUPTA, Primary Care Provider Samuel GUPTA, Primary Care Provider Medications Current Medications MedicationDrug Class(es)DatesSig (Normalized)Sig (Original)[id number] 200 actuat albuterol 0.09 mg/actuat metered dose inhaler (20 sources)beta2-Adrenergic AgonistStart: 05-08-2023 End: 78-73-5237cgoi 2 puff(s) by inhalation every four hoursalbuterol HFA 90 mcg/act inhaler Indications: Severe persistent asthma without complication (HCC) Inhale 2 puffs every 4 (four) hours if needed for shortness of breath 18 g 07/29/2024 ActiveStart: 77-20-4517hlgv 1 puff(s) by inhalation four times daily as neededAlbuterol Sulfate 90 mcg/actuation Hfa Aerosol Inhaler Active 1 PUFF INHALATION Four times daily asneeded for Shortness Of Breath December 22, 2021 12:00am Complies with drug therapyamLODIPine 10 mg oral tablet (20 sources)Dihydropyridine Calcium Channel BlockerStart: 08-18-2024 End: 45-08-5151vjjn 1 tablet by mouth once dailyamLODIPine (Norvasc) 10 MG tablet Indications: Primary hypertension Take 1 tablet (10 mg) by mouth Daily 90 tablet 1 11/19/2024 05/18/2025 ActiveStart: 10-24-2023 End: 81-65-7914akui 1 tablet by mouth once dailyamLODIPine (Norvasc) 10 MG tablet Indications: Primary hypertension (CMS/HCC) Take 1 tablet (10 mg)by mouth Daily 90 tablet 1 01/22/2024 ActiveStart: 12-22-2021 End: 70-47-6243xejc 1 tablet by mouth once daily in the morningAmlodipine 5 mg Tablet Discontinued 5 MG PO Every morning December 22, 2021 12:00am February 10, 2025 3:00pmaspirin 81 mg chewable tablet (20 sources)Platelet Aggregation Inhibitor, Nonsteroidal Anti-inflammatory Drug Start: 01-22-2024 End: 21-29-1380orqkxmm 81 MG chewable tablet Indications: Hyperlipidemia, unspecified hyperlipidemia type Chew 1 tablet (81 mg) in the morning. 30 tablet 2 01/22/2024 ActiveStart: 52-39-8143aahp 1 tablet by mouth once daily in the morningAspirin 81 mg Tablet,Delayed Release (Dr/Ec) Active 81 MG PO Every morning December 22, 2021 12:00am Complies with drug therapyatorvastatin 40 mg oral tablet (20 sources)HMG-CoA Reductase InhibitorStart: 08-18-2024 End: 77-90-6315cbpy 1 tablet by mouth once dailyatorvastatin (Lipitor) 40 MG tablet Indications: Hyperlipidemia, unspecified hyperlipidemia type Take 1 tablet (40 mg) by mouth Daily 90 tablet 1 11/19/2024 05/18/2025 ActiveStart: 08-30-2022 End: 59-27-0697tjpz 1 tablet by mouth once dailyatorvastatin (Lipitor) 40 MG tablet Indications: Hyperlipidemia, unspecified hyperlipidemia type (CMS/HCC) Take 1 tablet (40 mg) by mouth Daily 90 tablet 1 01/22/2024 ActiveStart: 12-22-2021 End: 12-58-7491zsjq 1 tablet by mouth once dailyAtorvastatin 10 mg Tablet Discontinued 10 MG PO Daily December 22, 2021 12:00am August 30, 2022 5:17pm carvedilol 25 mg oral tablet (20 sources)alpha-Adrenergic Blanca, beta-Adrenergic BlockerStart: 08-18-2024 End: 20-09-9156mbaf 1 tablet by mouth in the morningcarvedilol (Coreg) 25 MG tablet Indications: Resistant hypertension Take 1 tablet (25 mg) by mouth in the morning and 1 tablet (25 mg) in the evening. Take with meals. 180 tablet 1 11/19/2024 05/18/2025 ActiveStart: 08-30-2022 End: 36-59-2691pigm 1 tablet by mouth in the morningcarvedilol (Coreg) 25 MG tablet Indications: Resistant hypertension (CMS/HCC) Take 1 tablet (25 mg)by mouth in the morning and 1 tablet (25 mg) in the evening. Take with meals. 180 tablet 1 01/22/2024 ActiveContinuous Glucose Supervisor [place] (FreeStyle Agueda 2 [place]) device (20 sources)Start: 03-19-2024 End: 00-72-4196Mqbukathuw Glucose Supervisor [place] (FreeStyle Agueda 2 [place]) device Indications: Type 2 diabetes mellituswithout complication, with long-term current use of insulin (HCC) 1 each in the morning and 1 each at noon and 1 each in the evening and 1 each before bedtime. 1 each 03/19/2024 03/19/2025 Active Start: 03-19-2024 End: 65-20-2901Eypzdyrzct Glucose Supervisor [place] (FreeStyle Agueda 2 [place]) device Indications: Type 2 diabetes mellituswithout complication, with long-term current use of insulin 1 each in the morning and 1 each at noon and 1 each in the evening and 1 each before bedtime. 1 each 03/19/2024 03/19/2025 ActiveStart: 03-19-2024 End: 75-08-5892Wvvfmwfzxh Glucose Supervisor [place] (FreeStyle Agueda 2 [place]) device Indications: Type 2 diabetes mellituswithout complication, with long-term current use of insulin (CMS/HCC) 1 each in the morning and 1 each at noon and 1 each in the evening and 1 each before bedtime. 1 each 03/19/2024 03/19/2025 ActiveStart: 01-22-2024 End: 75-19-8825Mvreqlfovf Glucose Supervisor [place] (FreeStyle Agueda 2 [place]) device Indications: Type 2 diabetes mellituswithout complication, with long-term current use of insulin (CMS/HCC) 1 each in the morning and 1 each at noon and 1 each in the evening and 1 each before bedtime. 1 each 01/22/2024 03/18/2024 Discontinued (Reorder)Start: 01-22-2024 End: 93-68-4953Ruekhlxodb Glucose Supervisor [place] (FreeStyle Agueda 2 [place]) device Indications: Type 2 diabetes mellituswithout complication, with long-term current use of insulin (CMS/HCC) 1 each in the morning and 1 each at noon and 1 each in the evening and 1 each before bedtime. 1 each 01/22/2024 01/21/2025 ActiveContinuous Glucose Sensor (Dexcom G7 Sensor) misc (6 sources)Start: 12-09-2024 End: 95-89-7874Cwrrgoeqop Glucose Sensor (Dexcom G7 Sensor) misc Indications: Type 2 diabetes mellitus without complication, with long-term current use of insulin (HCC) 1 each Daily 3 each 12/09/2024 01/08/2025 Active End: 20-55-5646Qyblvjdtyh Glucose Sensor (Dexcom G7 Sensor) misc 1 each Daily 12/09/2024 Discontinued (Reorder)Continuous Glucose Sensor (FreeStyle Agueda 2 Plus Sensor) misc (2 sources)Start: 04-27-2024 End: 29-18-0897Xuzagqwicx Glucose Sensor (FreeStyle Agueda 2 Plus Sensor) [facility] [place]ications: Type 2 diabetes mellitus with diabetic polyneuropathy, with long- term current use of insulin (CMS/HCC) 1 each continuously for 28 days 2 each 04/27/2024 05/25/2024 ActiveContinuous Glucose Sensor (FreeStyle Agueda 3 Plus Sensor) [facility] [place] (20 sources)Start: 11-19-2024 End: 09-85-4503Miexzzddql Glucose Sensor (FreeStyle Agueda 3 Plus Sensor) [facility] [place] Indications: Type 2 diabetes mellitus without complications (HCC) 1 each by Other route continuously USE 1 SENSOR EVERY 15 DAYS TO MONITOR BLOOD SUGAR. 2 each 11/19/2024 12/19/2024 ActiveStart: 07-23-2024 End: 24-73-5004Gfkielcdpz Glucose Sensor (FreeStyle Agueda 3 Plus Sensor) [facility] [place] USE 1 SENSOR EVERY 15 DAYS TO MONITOR BLOOD SUGAR. 07/23/2024 11/19/2024 Discontinued (Reorder)Start: 02-44-6334Mwhxbcvssu Glucose Sensor (FreeStyle Agueda 3 Plus Sensor) [facility] [place] 1 SENSOR EVERY 15 DAYS TO MONITOR BLOOD SUGAR. 07/23/2024 ActiveStart: 05-06-2024 End: 39-87-0065Eadbzjvgex Glucose Sensor (FreeStyle Agueda 3 Plus Sensor) [facility] [place] Indications: Type 2 diabetes mellitus with diabetic polyneuropathy, with long- term current use of insulin (CMS/[facility]) 1 each continuously for 28 days 2 each 05/06/2024 06/03/2024 Active End: 57-81-6249Ulsbvswqqg Glucose Sensor (FreeStyle Agueda 3 Plus Sensor) [facility] [place] 05/06/2024 Discontinued (Reorder)dapagliflozin 10 mg oral tablet (20 sources)Sodium-Glucose Cotransporter 2 InhibitorStart: 87-51-0686emrs 1 tablet by mouth once dailyDapagliflozin Propanediol (Farxiga) 10 mg tablet Active 10 MG PO Daily February 10, 2025 12:00amComplies with drug therapy Start: 07-29-2024 End: 46-73-6497dsmd 1 tablet by mouth once dailydapagliflozin (Farxiga) 5 MG Indications: Type 2 diabetes mellitus without complications (HCC) Take1 tablet (5 mg) by mouth Daily 90 tablet 1 11/19/2024 Activediclofenac potassium 50 mg oral tablet (3 sources)Nonsteroidal Anti-inflammatory DrugStart: 18-38-2705zwuf 1 tablet by mouth twice daily as needed for painDiclofenac Potassium 50 mg tablet Active 50 MG PO Twice daily as needed for pain February 10, 2025 12:00am Complies with drug therapyStart: 12-31-2024 End: 67-45-1130udhf 1 tablet by mouth in the morningdiclofenac (Cataflam) 50 MG tablet Indications: Chronic pain of right ankle Take 1 tablet (50 mg) by mouth in the morning and 1 tablet (50 mg) in the evening. Take with food. 60 tablet 12/31/2024 01/30/2025 OghowgNacwxetofzg-Ygaoyegvg-Mbfvin (Trelegy Ellipta) 200-62.5-25 MCG/ACT aerosol powder (20 sources)Start: 52-68-1859rmjb 1 puff(s) by mouth once daily, then take 1 puff(s) by mouth once txdmiMmvwgfxjrdl-Jtllbregn-Mclqht (Trelegy Ellipta) 200-62.5-25 MCG/ACT aerosol powder Indications: Severe persistent asthma without complication (HCC) Inhale 1 puff Daily INHALE 1 PUFF ONCE DAILY, rinse mouth after use 1 each 5 11/19/2024 ActiveStart: 11-19-2024 End: 21-68-9416bizi 1 puff(s) by mouth once daily, then take 1 puff(s) by mouth once xwpdvArqbjrkvdxr-Emxwvzdpi-Khfwln (Trelegy Ellipta) 200-62.5-25 MCG/ACT aerosol powder Indications: Severe persistent asthma without complication (HCC) Inhale 1 puff Daily INHALE 1 PUFF ONCE DAILY, rinse mouth after use 1 each 5 11/19/2024 12/19/2024 ActiveStart: 10-08-2024 End: 05-29-5296vmqb 1 puff(s) by mouth once daily, then take 1 puff(s) by mouth once dahzkVcyzscjikds-Laplunlie-Aayaqd (Trelegy Ellipta) 200-62.5-25 MCG/ACT aerosol powder Indications: Severe persistent asthma without complication (HCC) Inhale 1 puff Daily INHALE 1 PUFF ONCE DAILY, rinse mouth after use 1 each 10/08/2024 11/19/2024 Discontinued (Reorder)Start: 59-40-6119wqyf 1 puff(s) by mouth once daily, then take 1 puff(s) by mouth once daily Kvvcnoynpnn-Xfxedgpfk-Whnaog (Trelegy Ellipta) 200-62.5-25 MCG/ACT aerosol powder Indications: Severe persistent asthma without complication (HCC) Inhale 1 puff Daily INHALE 1 PUFF ONCE DAILY, rinse mouth after use 1 each 5 10/08/2024 ActiveStart: 10-08-2024 End: 04-43-8819tsdp 1 puff(s) by mouth once daily, then take 1 puff(s) by mouth once invjhGmhaslvelaq-Cwfcrlfwd-Jrjmsr (Trelegy Ellipta) 200-62.5-25 MCG/ACT aerosol powder Indications: Severe persistent asthma without complication (CMS/HCC) Inhale 1 puff Daily INHALE 1 PUFF ONCE DAILY, rinse mouth after use 1 each 5 10/08/2024 11/07/2024 ActiveStart: 07-29-2024 End: 48-16-2293tpye 1 puff(s) by mouth once daily, then take 1 puff(s) by mouth once tgygdGamuneeibcw-Curlhpvis-Lrrrak (Trelegy Ellipta) 200-62.5-25 MCG/ACT aerosol powder Indications: Severe persistent asthma without complication (CMS/HCC) Inhale 1 puff Daily INHALE 1 PUFF ONCE DAILY, rinse mouth after use 1 each 5 07/29/2024 10/08/2024 Discontinued (Reorder)Start: 11-22-4881iecw 1 puff(s) by mouth once daily, then take 1 puff(s) by mouth once daily Jdbkjsbfwuf-Biwtmsrcy-Ufteuu (Trelegy Ellipta) 200-62.5-25 MCG/ACT aerosol powder Indications: Severe persistent asthma without complication (CMS/HCC) Inhale 1 puff Daily INHALE 1 PUFF ONCE DAILY, rinse mouth after use 1 each 5 07/29/2024 ActiveStart: 07-29-2024 End: 65-42-8620lmcn 1 puff(s) by mouth once daily, then take 1 puff(s) by mouth once rbieeYyjafykwnwq-Njigqnjpa-Wcgszt (Trelegy Ellipta) 200-62.5-25 MCG/ACT aerosol powder Indications: Severe persistent asthma without complication (CMS/HCC) Inhale 1 puff Daily INHALE 1 PUFF ONCE DAILY, rinse mouth after use 1 each 5 07/29/2024 08/28/2024 ActiveStart: 69-66-3035qdvs 1 puff(s) by inhalation once fpaefBpuvksoughw-Thtbhehyd-Ozbcok (Trelegy Ellipta) 200-62.5-25 MCG/ACT aerosol powder Indications: Severe persistent asthma without complication (CMS/HCC) Inhale 1 puff Daily 3 each 01/22/2024 ActiveStart: 01-22-2024 End: 89-77-6123pzmo 1 puff(s) by inhalation once daily Tgwexciqhzu-Yivhwmxxf-Dooiba (Trelegy Ellipta) 200-62.5-25 MCG/ACT aerosol powder Indications: Severe persistent asthma without complication (CMS/HCC) Inhale 1 puff Daily 3 each 01/22/2024 04/21/2024ctiveStart: 05-08-2023 End: 57-84-0828vays 1 puff(s) by inhalation in the morning Yhrtwvzgxxg-Khyztagyc-Bywmkw (Trelegy Ellipta) 200-62.5-25 MCG/ACT aerosol powder Indications: Severe persistent asthma without complication (CMS/HCC) Inhale 1 puff in the morning. 3 each 05/08/2023 01/22/2024 Discontinued (Reorder)Start: 03-91-8825cnap 1 puff(s) by inhalation in the morning Lhbgzdfnrli-Cabdezggw-Icathw (Trelegy Ellipta) 200-62.5-25 MCG/ACT aerosol powder Indications: Severe persistent asthma without complication (CMS/HCC) Inhale 1 puff in the morning. 3 each 05/08/2023 Active Eejdomjcpqs-Kzvqkbzly-Rdpommqf (5 sources)Start: 11-82-6034Bxsaxszjxlj-Umeclidin-Vilanter (Trelegy Ellipta) 200-62.5-25 mcg Blister With Device Active 1 INH INHALATION Every morning December 22, 2021 12:00am Complies with drug therapyStart: 12-22-2021 Keygznmwbix-Cbcvmuosk-Ipyjvrot (Trelegy Ellipta) 200-62.5-25 mcg Blister With Device Active 1 INH INHALATION Every morning December 22, 2021 12:00amStart: 25-01-6468Xstaebmmsxl-Umeclidin-Vilanter (Trelegy Ellipta) 200-62.5-25 mcg Blister With Device Active 1 INH INHALATION Daily December 22, 2021 12:00am furosemide 40 mg oral tablet (2 sources)Loop Diuretictake 1 tablet by mouth once dailyfurosemide (Lasix) 40 MG tablet Take 40 mg by mouth Daily ActiveglipiZIDE 5 mg oral tablet (20 sources)SulfonylureaStart: 08-18-2024 End: 40-84-1541vjzm 1 tablet by mouth in the morningglipiZIDE (Glucotrol) 5 MG tablet Indications: Type 2 diabetes mellitus with diabetic polyneuropathy, with long-term current use of insulin ([facility]) Take 1 tablet (5 mg) by mouth in the morning and 1 tablet (5 mg) in the evening. Take before meals. 180 tablet 1 11/19/2024 05/18/2025 ActiveStart: 10-24-2023 End: 11-96-7731whca 1 tablet by mouth in the morningglipiZIDE (Glucotrol) 5 MG tablet Indications: Type 2 diabetes mellitus with diabetic polyneuropathy, with long-term current use of insulin ([facility]) Take 1 tablet (5 mg) by mouth in the morning and 1 tablet (5 mg) in the evening. Take before meals. 180 tablet 1 01/22/2024 ActivehydroCHLOROthiazide 25 mg / losartan potassium 100 mg oral tablet (20 sources)Thiazide Diuretic, Angiotensin 2 Receptor BlockerStart: 08-18-2024 End: 00-99-3508ieqr 1 tablet by mouth once dailylosartan-hydroCHLOROthiazide (Hyzaar) 100-25 MG tablet Indications: Primary hypertension Take 1 tablet by mouth Daily 90 tablet 1 11/19/2024 05/18/2025 ActiveStart: 08-30-2022 End: 52-88-8640obwn 1 tablet by mouth once dailylosartan-hydroCHLOROthiazide (Hyzaar) 100-25 MG tablet Indications: Primary hypertension (CMS/HCC) Take 1 tablet by mouth Daily 90 tablet 1 01/22/2024 Active3 ml insulin detemir 100 unt/ml pen injector (2 sources)Insulin AnalogStart: 62-56-8742Dlcpjai Detemir U-100 (Levemir Flexpen) 100 unit/mL (3 mL) insulin pen Active 20 UNIT SUBCUT Every morning February 10, 2025 3:01pm Complies with drug therapyStart: 08-30-2022 End: 17-31-7993Cbdzpsa Detemir U-100 (Levemir Flexpen) 100 unit/mL (3 mL) insulin pen Discontinued 15 UNIT SUBCUT Every morning August 30, 2022 12:00am February 10, 2025 3:03pmInsulin Detemir U-100 (Levemir Flexpen) 100 unit/mL (3 mL) insulin pen (2 sources)Start: 42-79-9846Dqpewbz Detemir U-100 (Levemir Flexpen) 100 unit/mL (3 mL) insulin pen Active 15 UNIT SUBCUT Every morning August 30, 2022 12:00am3 ml insulin glargine 100 unt/ml pen injector (9 sources)Insulin AnalogStart: 11-24-2024 End: 83-79-5912uvhfrgn glargine (Lantus SoloStar) 100 UNIT/ML pen Indications: Type 2 diabetes mellitus without complication, with long-term current use of insulin ([facility]) Inject 20 Units under the skin at bedtime 18mL 2 11/24/2024 Active insulin glargine-yfgn (Semglee, yfgn,) 100 UNIT/ML injection (20 sources)Start: 11-19-2024 End: 39-29-2356hlvsri 20 [IU] by subcutaneous injection at bedtimeinsulin glargine-yfgn (Semglee, yfgn,) 100 UNIT/ML injection Indications: Type 2 diabetes mellitus with diabetic polyneuropathy, with long-term current use of insulin ([facility]) Inject 20 Units under the skin at bedtime Inject 20 Units under the skin at bedtime 10 mL 1 11/19/2024 11/24/2024 Discontinued(Cost of medication)Start: 11-19-2024 End: 38-83-1645qiuzov 20 [IU] by subcutaneous injection at bedtimeinsulin glargine-yfgn (Semglee, yfgn,) 100 UNIT/ML injection Indications: Type 2 diabetes mellitus with diabetic polyneuropathy, with long-term current use of insulin (HCC) Inject 20 Units under the skin at bedtime Inject 20 Units under the skin at bedtime 10 mL 1 11/19/2024 02/17/2025 ActiveStart: 04-27-2024 End: 64-63-2240zxamrdx glargine-yfgn (Semglee, yfgn,) 100 UNIT/ML injection Indications: Type 2 diabetes mellitus with diabetic polyneuropathy, with long- term current use of insulin (HCC) Inject 20 Units under the skin at bedtime 04/27/2024 11/19/2024 Discontinued (Reorder)Start: 04-27-2024 End: 32-34-6247uvrmmrl glargine-yfgn (Semglee, yfgn,) 100 UNIT/ML injection Indications: Type 2 diabetes mellitus with diabetic polyneuropathy, with long- term current use of insulin (HCC) Inject 20 Units under the skin at bedtime 04/27/2024 04/27/2025 ActiveStart: 04-27-2024 End: 99-45-6068pxbflwu glargine-yfgn (Semglee, yfgn,) 100 UNIT/ML injection Indications: Type 2 diabetes mellitus with diabetic polyneuropathy, with long- term current use of insulin (CMS/HCC) Inject 20 Units under the skin at bedtime 04/27/2024 04/27/2025 ActiveStart: 01-22-2024 End: 41-63-7223acsrrht glargine-yfgn (Semglee, yfgn,) 100 UNIT/ML injection Indications: Type 2 diabetes mellitus with diabetic polyneuropathy, with long- term current use of insulin (CMS/HCC) Inject 25 Units under the skin at bedtime 7.5 mL 11 01/22/2024 04/27/2024 Discontinued (Dose adjustment)Start: 01-22-2024 End: 90-38-9256hfgqzpv glargine-yfgn (Semglee, yfgn,) 100 UNIT/ML injection Indications: Type 2 diabetes mellitus with diabetic polyneuropathy, with long- term current use of insulin (CMS/HCC) Inject 25 Units under the skin at bedtime 7.5 mL 11 01/22/2024 01/21/2025 ActivemetFORMIN hydrochloride 850 mg oral tablet (20 sources)BiguanideStart: 08-18-2024 End: 33-74-7923pyfd 1 tablet by mouth in the morningmetFORMIN (Glucophage) 850 MG tablet Indications: Hyperlipidemia, unspecified hyperlipidemia type Take 1 tablet (850 mg) by mouth in the morning and 1 tablet (850 mg) in the evening. Take with meals.180 tablet 1 11/19/2024 05/18/2025 ActiveStart: 12-22-2021 End: 91-87-0169hecn 1 tablet by mouth in the morningmetFORMIN (Glucophage) 850 MG tablet Indications: Hyperlipidemia, unspecified hyperlipidemia type (CMS/HCC) Take 1 tablet (850 mg) by mouth in the morning and 1 tablet (850 mg) in the evening. Take with meals. 180 tablet 1 01/22/2024 ActiveStart: 53-48-6133nwpz 850 mg by mouth once dailyMetformin Active 850 MG PO Daily December 22, 2021 12:00amOmega 0-Min-Eyq-Fish Oil (Fish Oil) 1,200 (144-216) mg Capsule (5 sources)Start: 23-06-6176bxrp 1 capsule by mouth twice dailyStart: 12-22-2021 take 1 capsule by mouth twice dailyOmega 0-Tmr-Joa-Fish Oil (Fish Oil) 1,200 (144-216) mg Capsule Active 1 CAP PO Twice daily December 22, 2021 12:00am omeprazole 40 mg delayed release oral capsule (20 sources)Proton Pump InhibitorStart: 12-22-2021 End: 64-86-2822fkpv 1 capsule by mouth before mealtimeomeprazole (PriLOSEC) [address] capsule Indications: Gastroesophageal reflux disease without esophagitis Take 1 capsule (40 mg) by mouth in the morning. Take before meals. 90 capsule 1 11/19/2024 05/18/2025 Activespironolactone 50 mg oral tablet (20 sources)Aldosterone AntagonistStart: 11-19-2024 End: 00-65-5204nkmj 1 tablet by mouth once dailyspironolactone (Aldactone) 50 MG tablet Indications: Resistant hypertension Take 1 tablet (50 mg) by mouth Daily 90 tablet 1 11/19/2024 ActiveStart: 08-19-2024 End: 75-26-4430ivyi 2 tablets by mouth once dailyspironolactone (Aldactone) 50 MG tablet Indications: Resistant hypertension Take 2 tablets (100 mg)by mouth Daily 180 tablet 08/19/2024 11/19/2024 Discontinued (Reorder)Start: 10-24-2023 End: 23-77-6636faws 1 tablet by mouth once dailyspironolactone (Aldactone) 50 MG tablet Indications: Resistant hypertension (CMS/HCC) Take 1 tablet(50 mg) by mouth Daily 90 tablet 1 04/27/2024 10/24/2024 Active Completed/Discontinued Medications MedicationDrug Class(es)DatesSig (Normalized)Sig (Original)Continuous Blood Gluc Supervisor [place] (FreeStyle Agueda 2 [place]) device (3 sources)Start: 07-18-2023 End: 46-93-3142Yaidyoialn Blood Gluc Supervisor [place] (FreeStyle Agueda 2 [place]) device Indications: Type 2 diabetes mellitus without complication, with long-term current use of insulin (CMS/HCC) 1 each in the morning and 1 each at noon and 1 each in the evening and 1 each before bedtime. 1 each 07/18/2023 01/22/2024 Disc ontinued (Reorder)Start: 07-18-2023 End: 82-39-8962Uljgqoipmr Blood Gluc Supervisor [place] (FreeStyle Agueda 2 [place]) device Indications: Type 2 diabetes mellitus without complication, with long-term current use of insulin (CMS/HCC) 1 each in the morning and 1 each at noon and 1 each in the evening and 1 each before bedtime. 1 each 07/18/2023 07/17/2024 Acti veempagliflozin 10 mg oral tablet (2 sources)Sodium-Glucose Cotransporter 2 Inhibitor End: 46-56-3785luuw 10 mg by mouth once dailyempagliflozin (Jardiance) 10 MG Indications: Type 2 Diabetes Mellitus Take 10 mg by mouth Daily 07/29/2024 Discontinued (Therapy completed)insulin glargine-yfgn (Semglee, yfgn,) 100 UNIT/ML pen (3 sources)Start: 10-24-2023 End: 79-76-5183lwswzdd glargine-yfgn (Semglee, yfgn,) 100 UNIT/ML pen Indications: Type 2 diabetes mellitus with diabetic polyneuropathy, with long- term current use of insulin (CMS/[facility]) Inject 25 Units under the skin at bedtime 22.5 mL 1 10/24/2023 01/22/2024 Discontinued (Reorder)Start: 10-24-2023 End: 01-97-8955kacbpiy glargine-yfgn (Semglee, yfgn,) 100 UNIT/ML pen Indications: Type 2 diabetes mellitus with diabetic polyneuropathy, with long- term current use of insulin (CMS/HCC) Inject 25 Units under the skin at bedtime 22.5 mL 1 10/24/2023 04/21/2024 Activemeloxicam 15 mg oral tablet (5 sources)Nonsteroidal Anti-inflammatory DrugStart: 12-22-2021 End: 52-83-6215cwql 1 tablet by mouth once daily in the morningMeloxicam 15 mg Tablet Discontinued 15 MG PO Every morning December 22, 2021 12:00am February 10, 2025 3:02pmSITagliptin 100 mg oral tablet (20 sources)Dipeptidyl Peptidase 4 InhibitorStart: 08-30-2022 End: 55-33-5785cqqr 1 tablet by mouth once dailySITagliptin (Januvia) 100 MG tablet Indications: Type 2 diabetes mellitus with diabetic polyneuropathy, with long-term current use of insulin ([facility]) Take 1 tablet (100 mg) by mouth Daily 90 tablet1 01/22/2024 07/29/2024 Discontinued (Therapy completed)traMADol hydrochloride 50 mg oral tablet (2 sources)Opioid AgonistStart: 09-10-2022 End: 47-61-1831cupt 1 tablet by mouth every six hours as needed for painTramadol 50 mg tablet Discontinued 50 MG PO Q6H as needed for pain 23 12September 10, 2022 12:00am February 10, 2025 3:02pmTrelegy Ellipta 200-62.5-25 MCG/ACT aerosol powder (5 sources)Start: 06-16-2024 End: 97-80-0759edpe 1 puff(s) by inhalation once dailyTrelegy Ellipta 200-62.5-25 MCG/ACT aerosol powder Indications: Severe persistent asthma without complication (CMS/HCC) INHALE 1 PUFF ONCE DAILY 180 each 06/16/2024 07/29/2024 Discontinued (Reorder)Start: 95-59-8265mmem 1 puff(s) by inhalation once daily Trelegy Ellipta 200-62.5-25 MCG/ACT aerosol powder Indications: Severe persistent asthma without complication (CMS/HCC) INHALE 1 PUFF ONCE DAILY 180 each 06/16/2024 Active Problems Active Problems Problem ClassificationProblemDateDocumented DateEpisodic/ChronicAsthma (20 sources)Uncomplicated severe persistent asthma; Translations: [Severe persistent asthma, uncomplicated]Onset: 468032-08-1599LamktvrPfqwyxwt mellitus with complications (20 sources)Type 2 diabetes mellitus with diabetic autonomic (poly)neuropathy; Translations: [Polyneuropathy due to type 2 diabetes mellitus]Onset: 09-14-2021 86-29-4838RuajdmjFwoguuzo mellitus without complication (20 sources)Type 2 diabetes mellitus without complications; Translations: [Type 2 diabetes mellitus without complication]Onset: hronic Disorders of lipid metabolism (20 sources)Hyperlipidemia, unspecified; Translations: [Mixed hyperlipidemia] Onset: 09-14-2021 Resolved: 586174-05-7920NercmafHukwynlaqi disorders (20 sources)Gastroesophageal reflux disease without esophagitis; Translations: [Gastro-esophageal reflux disease without esophagitis]Onset: 08-07-2023 96-66-9817KzcfsbxOseijdbzt hypertension (20 sources)Essential (primary) hypertension; Translations: [Resistant hypertensive disorder]Onset: 07-07-2022 Resolved: 61-50-8275JfvgfhwRpmmjrp (4 sources)Onychomycosis; Translations: [Tinea unguium]92-54-2252XevsnzfpIanud bone disease and musculoskeletal deformities (4 sources)Idiopathic aseptic necrosis of right ankle; Translations: [IDIOPATH ASEPTIC NECROSIS RT ANKLE]Onset: 90-68-0114SiaialjEfnhl bone disease and musculoskeletal deformities (20 sources)Idiopathic aseptic necrosis of right foot; Translations: [Aseptic necrosis of bone, other]Onset: 993240-92-4524OtdsowwPegsl non-traumatic joint disorders (20 sources)Chronic ankle pain; Translations: [Pain in right ankle and joints of right foot]Onset: 488394-79-3305NevhputoRptci nutritional; endocrine; and metabolic disorders (20 sources)Obesity caused by energy imbalance; Translations: [Morbid (severe) obesity due to excess calories]Onset: 026662-38-4871CiamjpaXegno nutritional; endocrine; and metabolic disorders (20 sources)Body mass index 30+ - obesity; Translations: [Body mass index (BMI) 38.0-38.9, adult]Onset: 439372-61-4454HrvfjqzMqbjs skin disorders (4 sources)Dystrophia unguium; Translations: [Nail dystrophy]37-96-3485Egskelzy Unclassified (1 source)Second degree hemorrhoids; Translations: [Second degree hemorrhoids] Onset: 25-76-3098Qwkgtpsfotad (1 source)Encounter for preprocedural laboratory examination; Translations: [Encounter for preprocedural laboratory examination]Onset: 08-30-2022 Unclassified (1 source)Encounter for screening for malignant neoplasm of colon; Translations: [Encounter for screening formalignant neoplasm of colon]Onset: 12-22-2021 Past or Other Problems Problem ClassificationProblemDateDocumented DateEpisodic/ChronicHemorrhoids (20 sources)Hemorrhoids; Translations: [Unspecified hemorrhoids]Onset: 754667-29-2967CasegajcWepniam on above:Problem List clean-up per request of Phys. EHR CmteOther aftercare (20 sources)Long-term current use of insulin; Translations: [penitentiary (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]Onset: 014865-61-6429DoqvokwkXvoav non-traumatic joint disorders (4 sources)Pain in right ankle and joints of right foot; Translations: [PAIN IN RIGHT ANKLE]Onset: 62-10-2488YjalohfvJhcwo screening for suspected conditions (not mental disorders or infectious disease) (20 sources)Serum creatinine raised; Translations: [Other specified abnormal findings of blood chemistry]Onset: 04-28-865613720562-35-3083ZukhucjpGtmpntny codes; unclassified (4 sources)Procedure and treatment not carried out for other reasons; Translations: [PROC AND TX NOT CARRIED OUT OTH REASONS]Onset: 73-54-8142Kdvjqlkt Residual codes; unclassified (20 sources)Bilateral lower limb edema; Translations: [Localized edema]Onset: 752668-00-0727Wmkfibxj Results Test NameValueInterpretationReference RangeFacilityXR ANKLE RT MIN 3Von 96-47-0285InbB[place] [address] XRay Report Signed Patient: LAVERN DIETZ MR#: [id number] : 1965 Acct:[id number] Age/Sex: 59 / M ADM Date: 12/31/24 Loc: YANCY Attending Dr: Luci Rios NP Ordering Physician: Luci Rios NP Date of Service: 12/31/24 Procedure(s): XR ankle RT min 3V Accession Number(s): [id number] cc: Luci Rios NP [place] [address] Patient Name: LAVERN DEWEY MRN: [id number] date: 1965 Sex: M Assigned Patient Location: [facility] Current Patient Location: [facility] Accession/Order Number: [id number] Exam Date: 12/31/2024 21:47 Report Date: 12/31/2024 21:51 At the request of: LUCI RIOS NP Procedure: XR ankle RT min 3V RIGHT ANKLE - 3 views CLINICAL HISTORY: chronic pain of right ankle M25.571 COMPARISON: 11/30/2024 FINDINGS: Postsurgical changes status post tibial/talar screws calcaneal fusion with talar cage hardware. Hardware appears intact without loosening or fracture. There is bony fragmentation and joint effusion identified anterior aspect of the talar hardware XR/XR ankle RT min 3V IMPRESSION: Stable postsurgical changes. Impression dictated by: Alvin Pan M.D. 12/31/2024 9:51 PM Dictation Location: RADIO-PC-29 Electronically authenticated by: [id number] Y Date: 12/31/2024 21:51 Dictated By: Alvin Pan M.D. Signed By: 12/31/242152 DD/ 50 TD/TT: Sampler And Test Preparer:BRAXTONHRadiology, Radiologist, - 12/31/2024 [place] [address] XRay Report Signed Patient: LAVERN DIETZ MR#: [id number] : 1965 Acct:[id number] Age/Sex: 59 / M ADM Date: 12/31/24 Loc: YANCY Attending Dr: Luci Rios NP Ordering Physician: Luci Rios NP Date of Service: 12/31/24 Procedure(s): XR ankle RT min 3V Accession Number(s): [id number] cc: Luci Rios NP [facility] [place] [id number] Patient Name: LAVERN DEWEY MRN: [id number] date: 1965 Sex: M Assigned Patient Location: [facility] Current Patient Location: [facility] Accession/Order Number: [id number] Exam Date: 12/31/2024 21:47 Report Date: 12/31/2024 21:51 At the request of: LUCI RIOS NP Procedure: XR ankle RT min 3V RIGHT ANKLE - 3 views CLINICAL HISTORY: chronic pain of right ankle M25.571 COMPARISON: 11/30/2024 FINDINGS: Postsurgical changes status post tibial/talar screws calcaneal fusion with talar cage hardware. Hardware appears intact without loosening or fracture. There is bony fragmentation and joint effusion identified anterior aspect of the talar hardware XR/XR ankle RT min 3V IMPRESSION: Stable postsurgical changes. Impression dictated by: Alvin Pan M.D. 12/31/2024 9:51 PM Dictation Location: [facility]IO-PC-29 Electronically authenticated by: [id number] Y Date: 12/31/2024 21:51 Dictated By: Alvin Pan M.D. Signed By: 12/31/242152 DD/ 50 TD/TT: Sampler And Test Preparer: SELENA HealthcareRadiology Study observation (narrative)SELENA HealthcareXR ANKLE RT MIN 3VOrdered By: Radiologist Radiology on 51-19-2218[facility] Work Phone: XR ANKLE RT MIN 3Von 31-89-8301Laa[place], [place] [address] XRay Report Signed Patient: LAVERN DIETZ MR#: [id number] : 1965 Acct:[id number] Age/Sex: 59 / M ADM Date: 11/30/24 Loc: RAD Attending Dr: Rey Alcaraz D.P.M. Ordering Physician: Rey Alcaraz D.P.M. Date of Service: 11/30/24 Procedure(s): XR ankle RT min 3V Accession Number(s): [id number] cc: Luci Rios TENNIS PLAYER; Rey Alcaraz D.P.M. [place] [address] Patient Name: LAVERN DEWEY MRN: [id number] date: 1965 Sex: M Assigned Patient Location: [facility] Current Patient Location: [facility] Accession/Order Number: [id number] Exam Date: 11/30/2024 16:31 Report Date: 11/30/2024 16:33 At the request of: REY ALCARAZ DPEv Procedure: XR ankle RT min 3V [...] Dunn M.D. 11/30/2024 4:33 PM Dictation Location: [place] [address] Electronically authenticated by: [id number] Y Date: 11/30/2024 16:33 Dictated By: Arslan Dunn D.O. Signed By: 11/30/241635 DD/ 32 TD/TT: Sampler And Test Preparer:RASadiolcarols Radiologist, - 11/30/2024 [place] [address] XRay Report Signed Patient: LAVERN DIETZ MR#: [id number] : 1965 Acct:[id number] Age/Sex: 59 / M ADM Date: 11/30/24 Loc: RAD Attending Dr: Rey Alcaraz D.P.M. Ordering Physician: Rey Alcaraz D.P.M. Date of Service: 11/30/24 Procedure(s): XR ankle RT min 3V Accession Number(s): [id number] cc: Luci Rios TENNIS PLAYER; Rey Alcaraz D.P.M. [facility] [place] [address] Patient Name: LAVERN DEWEY MRN: [id number] date: 1965 Sex: M Assigned Patient Location: [facility] Current Patient Location: [facility] Accession/Order Number: [id number] Exam Date: 11/30/2024 16:31 Report Date: 11/30/2024 16:33 At the request of: REY ALCARAZ DPEv Procedure: XR ankle RT min 3V [...] Dunn M.D. 11/30/2024 4:33 PM Dictation Location: [place] [address] Electronically authenticated by: [id number] Y Date: 11/30/2024 16:33 Dictated By: Arslan Dunn D.O. Signed By: 11/30/24 1636 DD/ 32 TD/TT: Sampler And Test Preparer: SELENA [facility] Medical CenterRadiology Study observation (narrative)[facility] Health CareXR ANKLE RT MIN 3VOrdered By: Radiologist Radiology on 63-58-1702[facility] Work Phone: HbA1c (Bld) [Mass fraction]on 01-82-2261Iibwoyrkvbjqsd and review of laboratory resultsAbnormalSaint Joseph Hospital of [facility] HealthcareLaboratory - Hematology and Cell countson 02-31-0465NlJ1d (Bld) [Mass fraction]7 %[facility] HealthcareALL BASIC METABOLIC PANELon 97-88-3121Epboi gap [Moles/Vol]14.6 mmol/L [facility] HealthcareCalcium [Mass/Vol]8.8 mg/dL8.5 - 10.1 mg/dLNOAK Healthcare Chloride [Moles/Vol]102 mmol/L98 - 107 mmol/LNOMS HealthcareCO2 [Moles/Vol]27.2 mmol/L21.0 - 32.0 mmol/LNOMS HealthcareCreatinine [Mass/Vol]1 mg/dL0.70 - 1.30 mg/dLNOAK HealthcareGFR/1.73 sq M.predicted CKD-EPI (S/P/Bld) [Vol rate/Area]>60 >=60 mL/min/1.73m 2NOMS HealthcareGlucose [Mass/Vol]143 mg/gWCsgo23 - 106 mg/dL [facility] CareInterpretation and review of laboratory resultsAbMyMichigan Medical Center GladwinPotassium [Moles/Vol]4.8 mmol/L3.5 - 5.1 mmol/LNOMS HealthcareSodium [Moles/Vol]139 mmol/L136 - 145 mmol/LNOMS HealthcareTBH EGFR-NON AF CITIZEN [place]>60 >=60 mL/min/1.73m 2NOMS HealthcareUrea nitrogen [Mass/Vol]20 mg/dLHigh7.0 - 18.0 mg/dLNOAK HealthcareUrea nitrogen/Creatinine [Mass ratio]20 mg/mgNOMS HealthcareCLINISYNCNOMS HealthcareUS RENAL BIon 59-84-9994[address] [address] Ultrasound Report Signed Patient: LAVERN DIETZ MR#: [id number] : 1965 Acct:[id number] Age/Sex: 59 / M ADM Date: 10/24/24 Loc: US Attending Dr: Luci Rios NP Ordering Physician: Luci Rios NP Date of Service: 10/24/24 Procedure(s): US renal BI Accession Number(s): [id number] cc: Luci Rios NP [facility] [place] [id number] Patient Name: LAVERN DEWEY MRN: [id number] date: 1965 Sex: M Assigned Patient Location: US Current Patient Location: US Accession/Order Number: [id number] Exam Date: 10/24/2024 11:36 Report Date: 10/24/2024 [...] Dunn M.D. 10/24/2024 11:37 AM Dictation Location: [place] [address] Electronically authenticated by: [id number] Y Date: 10/24/2024 11:37 Dictated By: Arslan Dunn D.O. Signed By: 10/24/24 1139 DD/ 1137 TD/TT: Sampler And Test Preparer:TBHRadiology, Radiologist, MD - 10/24/2024 [place] [address] Ultrasound Report Signed Patient: LAVERN DIETZ MR#: [id number] : 1965 Acct:[id number] Age/Sex: 59 / M ADM Date: 10/24/24 Loc: US Attending Dr: Luci Rios NP Ordering Physician: Luci Rios NP Date of Service: 10/24/24 Procedure(s): US renal BI Accession Number(s): [id number] cc: Luci Rios NP [address] [address] Patient Name: LAVERN DEWEY MRN: [id number] date: 1965 Sex: M Assigned Patient Location: US Current Patient Location: US Accession/Order Number: [id number] Exam Date: 10/24/2024 11:36 Report Date: 10/24/2024 [...] Dunn M.D. 10/24/2024 11:37 AM Dictation Location: [place] [address] Electronically authenticated by: [id number] Y Date: 10/24/2024 11:37 Dictated By: Arslan Dunn D.O. Signed By: 10/24/24 1139 DD/ 1137 TD/TT: Sampler And Test Preparer: SELENA HealthcareRadiology Study observation (narrative)NOM HealthcareUS RENAL BI Ordered By: Radiologist Radiology on 04-37-7581[facility] Work Phone: all BASIC METABOLIC PANELon 60-80-3032Jhqei gap [Moles/Vol]13.6 mmol/LNOMS HealthcareCalcium [Mass/Vol]8.4 mg/dLLow8.5 - 10.1 mg/dLNOMS HealthcareChloride [Moles/Vol]102 mmol/L98 - 107 mmol/LNOMS Healthcare CO2 [Moles/Vol]26.2 mmol/L21.0 - 32.0 mmol/LNOMS HealthcareCreatinine [Mass/Vol] 1.79 mg/dLHigh0.70 - 1.30 mg/dLNOMS HealthcareGFR/1.73 sq M.predicted CKD-EPI (S/P/Bld) [Vol rate/Area]48Low>=60 mL/min/1.73m 2NOMS HealthcareGlucose [Mass/Vol]78 mg/dL74 - 106 mg/dLNOAK HealthcareInterpretation and review of laboratory resultsAbnormalNOMS HealthcarePotassium [Moles/Vol]4.8 mmol/L3.5 - 5.1 mmol/LNOMS HealthcareSodium [Moles/Vol]137 mmol/L136 - 145 mmol/LNOMS [facility] CenterTB EGFR-NON AF [id number]>=60 mL/min/1.73m 2NOMS HealthcareUrea nitrogen [Mass/Vol]35 mg/dLHigh7.0 - 18.0 mg/dLNOAK HealthcareUrea nitrogen/Creatinine [Mass ratio]19.6 mg/mgNOAK HealthcareCLINISYNShriners Hospitals for Children - [facility] BASIC METABOLIC PANELon 48-29-1520Aqfcr gap [Moles/Vol]15 mmol/L NOMS HealthcareCalcium [Mass/Vol]9.2 mg/dL8.5 - 10.1 mg/dLNOOzarks Medical Center Chloride [Moles/Vol]106 mmol/L98 - 107 mmol/LNOMS HealthcareCO2 [Moles/Vol]26.2 mmol/L21.0 - 32.0 mmol/LNOMS HealthcareCreatinine [Mass/Vol]1.08 mg/dL0.70 - 1.30 mg/dLNOAK HealthcareGFR/1.73 sq M.predicted CKD-EPI (S/P/Bld) [Vol rate/Area]>60>=60 mL/min/1.73m 2NMERCY HEALTH LOVE COUNTY – MARIETTA HealthcareGlucose [Mass/Vol]148 mg/uSMpcp74 - 106 mg/dLNOAK HealthcareInterpretation and review of laboratory results AbnormalNOMS HealthcarePotassium [Moles/Vol]5.2 mmol/LHigh3.5 - 5.1 mmol/LNOMS HealthcareSodium [Moles/Vol]142 mmol/L136 - 145 mmol/LNOMS [facility] CenterTB EGFR- NON AF CITIZEN OF [place]>60>=60 mL/min/1.73m 2NOMS HealthcareUrea nitrogen [Mass/Vol]23 mg/dLHigh7.0 - 18.0 mg/dLNOAK HealthcareUrea nitrogen/Creatinine [Mass ratio] 21.3 mg/mgNOAK HealthcareCLINISYNCNOMS HealthcareALL CBC WITH AUTO DIFFon 14-54-6298TJOCHPBHF ABSOLUTE AUTO0.1NOMS HealthcareBasophils/100 WBC (Bld)0.8 % 0.2 - 2.0 %NOMS HealthcareEosinophils/100 WBC (Bld)7.1 %High0.9 - 7.0 %NOMS HealthcareErythrocyte distribution width (RBC) [Ratio]13.2 %11.0 - 15.0 %NOMS HealthcareHematocrit (Bld) [Volume fraction]39.4 %Low42.0 - 54.0 %NOMS HealthcareHemoglobin (Bld) [Mass/Vol]13.4 g/dLLow14.0 - 18.0 g/dLSSM Health Care IMMATURE GRANULOCYTES ABS AUTO0.07HighNOOzarks Medical CenterImmature granulocytes/100 WBC (Bld)1.2 %High0.0 - 0.5 %[facility] HealthcareInterpretation and review of laboratory resultsAbnormalNOOzarks Medical CenterLYMPHOCYTES ABSOLUTE UTHF1LLRPOzarks Medical CenterLymphocytes/100 WBC (Bld)32.4 %20.5 - 60.0 %[facility] SpringfieldH (RBC) [Entitic mass]29.6 pg25.9 - 34.0 pgNOUniversity of Missouri Health CareHC (RBC) [Mass/Vol]34 g/dL 29.9 - 35.2 g/dLDoctors Hospital of SpringfieldV (RBC) [Entitic vol]87 fL80.0 - 94.0 fLNOOzarks Medical CenterMONOCYTES ABSOLUTE AUTO0.4NOOzarks Medical CenterMonocytes/100 WBC (Bld)6.4 % 1.7 - 12.0 %NOMSt. Luke'S HospitalNEUTROPHILS ABSOLUTE AUTO3.2NOMS Healthcare Neutrophils/100 WBC (Bld)52.1 %43.0 - 75.0 %NOMSt. Luke'S HospitalPlatelet mean volume (Bld) [Entitic vol]10.5 fL9.5 - 13.5 fLNOOzarks Medical CenterTBH EO #0.4NOMS [facility] TBH HHV711OLGJ [facility] RBC4.53LowNOMS [facility] WBC6.1NOMS [facility] CLINISYNCNOAK HealthcareXR ANKLE RT MIN 3Von 33-79-3885[address] [address] XRay Report Signed Patient: LAVERN DIETZ MR#: [id number] : 1965 Acct:[id number] Age/Sex: 59 / M ADM Date: 04/15/24 Loc: RAD Attending Dr: Rey Alcaraz D.P.M. Ordering Physician: Rey Alcaraz D.P.M. Date of Service: 04/15/24 Procedure(s): XR ankle RT min 3V Accession Number(s): [id number] cc: Shaikh Heather Baker; Rey Alcaraz D.P.M. The [address] [address] Patient Name: LAVERN DEWEY MRN: [facility]:[id number] date: 1965 Sex: M Assigned Patient Location: [facility] Current Patient Location: [facility] Accession/Order Number: [id number] Exam Date: 04/15/2024 15:10 Report Date: 04/17/2024 15:14 At the request of: REY ALCARAZ Procedure: XR ankle RT min 3V PROCEDURE: [...] or change in alignment. Electronically authenticated by: MICHELLE IBRAHIM Date: 04/17/2024 15:14 Dictated By: Michelle Ibrahim M.D. Signed By: 04/17/24 1517 DD/ 13 TD/TT: Sampler And Test Preparer:BRAXTONHRadiology, Radiologist, MD - 04/17/2024 The [place] [id number] XRay Report Signed Patient: LAVERN DIETZ MR#: [id number] : 1965 Acct:[id number] Age/Sex: 59 / M ADM Date: 04/15/24 Loc: RAD Attending Dr: Rey Alcaraz D.P.M. Ordering Physician: Rey Alcaraz D.P.M. Date of Service: 04/15/24 Procedure(s): XR ankle RT min 3V Accession Number(s): [id number] cc: Shaikh Heather Baker; Rey Alcaraz D.P.M. [place] [address] Patient Name: LAVERN DEWEY MRN: [facility]:[id number] date: 1965 Sex: M Assigned Patient Location: RAD Current Patient Location: [facility] Accession/Order Number: [id number] Exam Date: 04/15/2024 15:10 Report Date: 04/17/2024 15:14 At the request of: REY ALCARAZ Procedure: XR ankle RT min 3V PROCEDURE: [...] or change in alignment. Electronically authenticated by: MICHELLE IBRAHIM Date: 04/17/2024 15:14 Dictated By: Michelle Ibrahim M.D. Signed By: 04/17/24 1517 DD/ 13 TD/TT: Sampler And Test Preparer: NOMS HealthcareRadiology Study observation (narrative)NOMS HealthcareXR ANKLE RT MIN 3VOrdered By: Radiologist Radiology on 19-43-6062[facility] Work Phone: aLL LIPID PROFILE (FASTING)on 59-81-7990BHEP HDL RATIO 3.4NOMS HealthcareComment on above:3.3 - 4.4 LOW RISK 4.4 - 7.1 AVERAGE RISK 7.1 - 11.0 MODERATE RISK >11.0 HIGH RISK Cholesterol [Mass/Vol]149 mg/dLNINF - 200 mg/dLNOAK HealthcareCholesterol in HDL [Mass/Vol]44 mg/dL40 - 60 mg/dLNOAK HealthcareComment on above:> or =60 mg/dl - LOW CARDIOVASCULAR RISK <40 mg/dl - HIGH CARDIOVASCULAR RISK Magnesium [Mass/Vol]70.0 mg/dLNOAK HealthcareComment on above:<100 mg/dl OPTIMAL 100-129 mg/dl NEAR OR ABOVE OPTIMAL 130-159 mg/dl BORDERLINE HIGH 160-189 mg/dl HIGH >190 mg/dl VERY HIGH Magnesium [Mass/Vol]35.6 mg/dLNOAK HealthcareTriglyceride [Mass/Vol]178 mg/dL HighNINF - 150 mg/dLNOAK HealthcareCCF CMP (CMP) (FOR REMOTE [facility] USE)on 36-99-5376Pxmrhgs [Mass/Vol]3.3 g/dLLow3.4 - 5.0 g/dLNOAK HealthcareALBUMIN GLOBULIN RATIO0.8NOAK HealthcareALP [Catalytic activity/Vol]63 U/L46 - 116 U/L [facility] HealthcareALT [Catalytic activity/Vol]46 U/L16 - 63 U/LNOMS HealthcareAnion gap [Moles/Vol]13.2 mmol/LNOMS HealthcareAST [Catalytic activity/Vol]21 U/L15 - 37 U/LNOMS HealthcareBilirubin [Mass/Vol]1.0 mg/dL0.2 - 1.0 mg/dLNOAK Healthcare Calcium [Mass/Vol]8.8 mg/dL8.5 - 10.1 mg/dLNOAK HealthcareChloride [Moles/Vol] 103 mmol/L98 - 107 mmol/LNOMS HealthcareCO2 [Moles/Vol]27.3 mmol/L21.0 - 32.0 mmol/LNOMS HealthcareCreatinine [Mass/Vol]1.09 mg/dL0.70 - 1.30 mg/dLNOAK HealthcareGFR/1.73 sq M.predicted CKD-EPI (S/P/Bld) [Vol rate/Area]>6060 - [facility] HealthcareGlobulin (S) [Mass/Vol]4.0 g/dLNOAK HealthcareGlucose [Mass/Vol] 147 mg/qWAmgp98 - 106 mg/dLNOMS HealthcarePotassium [Moles/Vol]4.5 mmol/L3.5 - 5.1 mmol/LNOMS HealthcareProtein [Mass/Vol]7.3 g/dL6.4 - 8.2 g/dLNOMS Healthcare Sodium [Moles/Vol]139 mmol/L136 - 145 mmol/LNOMS HealthcareTBH EGFR-NON AF CITIZEN OF [place]>6060 - PINFNOMS HealthcareUrea nitrogen [Mass/Vol]28.0 mg/dLHigh7.0 - 18.0 mg/dLNOMS HealthcareUrea nitrogen/Creatinine [Mass ratio]25.7 mg/mgNOMS HealthcareNo Panel Informationon 66-18-8917Fiffmltvinsuql and review of laboratory resultsAbnormalNOMS HealthcareCLINISYNCNOMS HealthcareXR ANKLE RT MIN 3Von 03-58-8045[place]jnB[place], [place] [address] XRay Report Signed Patient: LAVERN DIETZ MR#: [id number] : 1965 Acct:[id number] Age/Sex: 58 / M ADM Date: 01/16/24 Loc: Attending Dr: Katie Coker Ordering Physician: Katie Coker Date of Service: 01/16/24 Procedure(s): XR ankle RT min 3V Accession Number(s): [id number] cc: Shaikh [place] Baker; Katie Coker [place] [address] Patient Name: LAVERN DEWEY MRN: [id number] date: 1965 Sex: M Assigned Patient Location: Current Patient Location: Accession/Order Number: [id number] Exam Date: 01/16/2024 14:55 Report Date: 01/17/2024 06:46 At the request of: KATIE COKER Procedure: XR ankle RT min 3V PROCEDURE: [...] or change in alignment. Electronically authenticated by: MICHELLE IBRAHIM Date: 01/17/2024 06:46 Dictated By: Michelle Ibrahim M.D. Signed By: 01/17/2449 DD/ TD/TT: Sampler And Test Preparer:TBHRadiology, Radiologist, MD - 01/17/2024 [place] [address] XRay Report Signed Patient: LAVERN DIETZ MR#: [id number] : 1965 Acct:[id number] Age/Sex: 58 / M ADM Date: 01/16/24 Loc: Attending Dr: Katie Coker Ordering Physician: Katie Coker Date of Service: 01/16/24 Procedure(s): XR ankle RT min 3V Accession Number(s): [id number] cc: Shaikh Heather Baker; Katie Coker The [place] [id number] Patient Name: LAVERN DEWEY MRN: [facility]:[id number] date: 1965 Sex: M Assigned Patient Location: Current Patient Location: Accession/Order Number: [id number] Exam Date: 01/16/2024 14:55 Report Date: 01/17/2024 06:46 At the request of: KATIE COKER Procedure: XR ankle RT min 3V PROCEDURE: [...] or change in alignment. Electronically authenticated by: MICHELLE IBRAHIM Date: 01/17/2024 06:46 Dictated By: Michelle Ibrahim M.D. Signed By: 01/17/2449 DD/ TD/TT: Sampler And Test Preparer: SELENA HealthcareRadiology Study observation (narrative)SELENA HealthcareXR ANKLE RT MIN 3VOrdered By: Radiologist Radiology on 36-07-4206Z[facility] Work Phone: XR ANKLE RT MIN 3Von 50-34-9783[place], [place] [address] XRay Report Signed Patient: LAVERN DIETZ MR#: [id number] : 1965 Acct:[id number] Age/Sex: 58 / M ADM Date: 10/22/23 Loc: [facility] Attending Dr: Rey Alcaraz D.P.M. Ordering Physician: Rey Alcaraz D.P.M. Date of Service: 10/22/23 Procedure(s): XR ankle RT min 3V Accession Number(s): [id number] cc: Shaikh Heather Baker; Rey Alcaraz D.P.M. [place] [id number] Patient Name: LAVERN DEWEY MRN: [id number] date: 1965 Sex: M Assigned Patient Location: Current Patient Location: Accession/Order Number: [id number] Exam Date: 10/22/2023 15:17 Report Date: 10/23/2023 07:35 At the request of: REY ALCARAZ Procedure: XR ankle RT min 3V PROCEDURE: [...] no mechanical failure Electronically authenticated by: GERA Márquez: 10/23/2023 07:35 Dictated By: Gera Montgomery M.D. Signed By: 10/23/23737 DD/ 4 TD/TT: Sampler And Test Preparer:RASadiologjoey, Radiologist, - 10/23/2023 [place] [address] XRay Report Signed Patient: LAVERN DIETZ MR#: [id number] : 1965 Acct:[id number] Age/Sex: 58 / M ADM Date: 10/22/23 Loc: EC Attending Dr: Rey Alcaraz D.P.M. Ordering Physician: Rey Alcaraz D.P.M. Date of Service: 10/22/23 Procedure(s): XR ankle RT min 3V Accession Number(s): [id number] cc: Shaikh Heather Baker; Rey Alcaraz D.P.M. [facility] [place] [address] Patient Name: LAVERN DEWEY MRN: [facility]:[id number] date: 1965 Sex: M Assigned Patient Location: Current Patient Location: Accession/Order Number: [id number] Exam Date: 10/22/2023 15:17 Report Date: 10/23/2023 07:35 At the request of: REY ALCARAZ Procedure: XR ankle RT min 3V PROCEDURE: [...] no mechanical failure Electronically authenticated by: GERA MONTGOMERY Date: 10/23/2023 07:35 Dictated By: Gera Montgomery M.D. Signed By: 10/23/2338 DD/ 4 TD/TT: Sampler And Test Preparer: SELENA HealthcareRadiology Study observation (narrative)NOM HealthcareXR ANKLE RT MIN 3VOrdered By: Radiologist Radiology on 69-09-4533ZSUR Healthcare Work Phone: XR ANKLE RT MIN 3Von 04-89-[place]302[place], [place] [address] XRay Report Signed Patient: LAVERN DIETZ MR#: [id number] : 1965 Acct:[id number] Age/Sex: 58 / M ADM Date: 09/10/23 Loc: EC Attending Dr: Rey Alcaraz D.P.M. Ordering Physician: Rey Alcaraz D.P.M. Date of Service: 09/10/23 Procedure(s): XR ankle RT min 3V Accession Number(s): [id number] cc: Shaikh Heather Baker; Rey Alcaraz D.P.M. [facility] [place] [id number] Patient Name: LAVERN DEWEY MRN: [id number]:[id number] date: 1965 Sex: M Assigned Patient Location: Current Patient Location: Accession/Order Number: [id number] Exam Date: 09/10/2023 14:38 Report Date: 09/11/2023 08:52 At the request of: REY ALCARAZ Procedure: XR ankle RT min 3V PROCEDURE: [...] Stable ankle fusion Electronically authenticated by: GERA MONTGOMERY Date: 09/11/2023 08:52 Dictated By: Gera Montgomery M.D. Signed By: 09/11/23 0854 DD/ 0852 TD/TT: Sampler And Test Preparer:BRAXTONHRadiology, Radiologist, - 09/11/2023 [facility] [place] [id number] XRay Report Signed Patient: LAVERN DIETZ MR#: [id number] : 1965 Acct:[id number] Age/Sex: 58 / M ADM Date: 09/10/23 Loc: EC Attending Dr: Rey Alcaraz D.P.M. Ordering Physician: Rey Alcaraz D.P.M. Date of Service: 09/10/23 Procedure(s): XR ankle RT min 3V Accession Number(s): [id number] cc: Shaikh Heather Baker; Rey Alcaraz D.P.M. [facility] [place] [phone] Patient Name: LAVERN DEWEY MRN: [facility]:[id number] date: 1965 Sex: M Assigned Patient Location: Current Patient Location: Accession/Order Number: [id number] Exam Date: 09/10/2023 14:38 Report Date: 09/11/2023 08:52 At the request of: REY ALCARAZ Procedure: XR ankle RT min 3V PROCEDURE: [...] Stable ankle fusion Electronically authenticated by: GERA MONTGOMERY Date: 09/11/2023 08:52 Dictated By: Gera Montgomery M.D. Signed By: 09/11/2354 DD/ TD/TT: Sampler And Test Preparer: SELENA HealthcareRadiology Study observation (narrative)[facility]OMS HealthcareXR ANKLE RT MIN 3VOrdered By: Radiologist Radiology on 47-17-7885[facility] Work Phone: ct ANKLE RT WO CONon 01-32-4601[address] [address] [address] Scan Report Signed Patient: LAVERN DIETZ MR#: [id number] : 1965 Acct:[id number] Age/Sex: 58 / M ADM Date: 08/16/23 Loc: CT Attending Dr: Rye Alcaraz D.P.M. Ordering Physician: Rey Alcaraz D.P.M. Date of Service: 08/16/23 Procedure(s): CT ankle RT wo con Accession Number(s): [id number] cc: Shaikh Heather Baker [address] [address] Patient Name: LAVERN DEWEY MRN: [id number]:[id number] date: 1965 Sex: M Assigned Patient Location: CT Current Patient Location: Accession/Order Number: [id number] Exam Date: 08/16/2023 15:26 Report Date: 08/19/2023 07:23 At the request of: REY ALCARAZ Procedure: CT ankle RT wo con EXAMINATION: [...] or mechanical failure Electronically authenticated by: GERA MONTGOMERY Date: 08/19/2023 07:23 Dictated By: Gera Montgomery M.D. Signed By: 08/19/23724 DD/ 0723 TD/TT: Sampler And Test Preparer:TBHRadiology, Radiologist, - 08/19/2023 [place] [address] CT Scan Report Signed Patient: LAVERN DIETZ MR#: [id number] : 1965 Acct:[id number] Age/Sex: 58 / M ADM Date: 08/16/23 Loc: CT Attending Dr: Rey Alcaraz D.P.M. Ordering Physician: Rey Alcaraz D.P.M. Date of Service: 08/16/23 Procedure(s): CT ankle RT wo con Accession Number(s): [id number] cc: Shaikh Heather Baker [place] [address] Patient Name: LAVERN DEWEY MRN: [id number] date: 1965 Sex: M Assigned Patient Location: CT Current Patient Location: Accession/Order Number: [id number] Exam Date: 08/16/2023 15:26 Report Date: 08/19/2023 07:23 At the request of: REY ALCARAZ Procedure: CT ankle RT wo con EXAMINATION: [...] or mechanical failure Electronically authenticated by: GERA MONTGOMERY Date: 08/19/2023 07:23 Dictated By: Gera Montgomery M.D. Signed By: 08/19/2325 DD/ 2 TD/TT: Sampler And Test Preparer: SELENA HealthcareRadiology Study observation (narrative)NOMS HealthcareCT ANKLE RT WO CONOrdered By: Radiologist Radiology on 40-04-2854AEQX [facility] Work Phone: No Panel Informationon 70-65-8658Eyhyxfodp Study observation (narrative)NOMS HealthcareXR ANKLE RT MIN 3Von 49-97-2119[place], [place] [address] XRay Report Signed Patient: LAVERN DIETZ MR#: [id number] : 1965 Acct:[id number] Age/Sex: 58 / M ADM Date: 07/16/23 Loc: RAD Attending Dr: Rey Alcaraz D.P.M. Ordering Physician: Rey Alcaraz D.P.M. Date of Service: 07/16/23 Procedure(s): XR ankle RT min 3V Accession Number(s): [id number] cc: Shaikh Heather Baker; Rey Alcaraz D.P.M. [place] [address] Patient Name: LAVERN DEWEY MRN: [id number]:[id number] date: 1965 Sex: M Assigned Patient Location: [facility] Current Patient Location: Accession/Order Number: [id number] Exam Date: 07/16/2023 13:10 Report Date: 07/17/2023 06:52 At the request of: REY ALCARAZ Procedure: XR ankle RT min 3V PROCEDURE: [...] or change in alignment. Electronically authenticated by: MICHELLE IBRAHIM Date: 07/17/2023 06:52 Dictated By: Michelle Ibrahim M.D. Signed By: 07/17/23654 DD/ 1 TD/TT: Sampler And Test Preparer:RASadiology, Radiologist, - 07/31/2023 [place] [address] XRay Report Signed Patient: LAVERN DIETZ MR#: [id number] : 1965 Acct:[id number] Age/Sex: 58 / M ADM Date: 07/16/23 Loc: RAD Attending Dr: Rey Alcaraz D.P.M. Ordering Physician: Rey Alcaraz D.P.M. Date of Service: 07/16/23 Procedure(s): XR ankle RT min 3V Accession Number(s): [id number] cc: Shaikh Heather Baker; Rey Alcaraz D.P.M. [facility] [place] [address] Patient Name: LAVERN DEWEY MRN: [facility]:[id number] date: 1965 Sex: M Assigned Patient Location: [facility] Current Patient Location: Accession/Order Number: [id number] Exam Date: 07/16/2023 13:10 Report Date: 07/17/2023 06:52 At the request of: REY ALCARAZ Procedure: XR ankle RT min 3V PROCEDURE: [...] or change in alignment. Electronically authenticated by: MICHELLE IBRAHIM Date: 07/17/2023 06:52 Dictated By: Michelle Ibrahim M.D. Signed By: 07/17/2355 DD/ 1 TD/TT: Sampler And Test Preparer: SELENA MazariegosXR ANKLE RT MIN 3VOrdered By: Radiologist Radiology on 07-17-2023 [facility] [employer] Work Phone: XR FOOT RT MIN 3Von 14-87-6679[place], [place] [address] XRay Report Signed Patient: LAVERN DIETZ MR#: [id number] : 1965 Acct:[id number] Age/Sex: 58 / M ADM Date: 07/16/23 Loc: RAD Attending Dr: Rey Alcaraz D.P.M. Ordering Physician: Rey Alcaraz D.P.M. Date of Service: 07/16/23 Procedure(s): XR foot RT min 3V Accession Number(s): [id number] cc: Shaikh Heather Baker; Rey Alcaraz D.P.M. [place] [address] Patient Name: LAVERN DEWEY MRN: [id number]:[id number] date: 1965 Sex: M Assigned Patient Location: [facility] Current Patient Location: Accession/Order Number: [id number] Exam Date: 07/16/2023 13:10 Report Date: 07/17/2023 06:52 At the request of: REY ALCARAZ Procedure: XR foot RT min 3V PROCEDURE: [...] or change in alignment. Electronically authenticated by: MICHELLE IBRAHIM Date: 07/17/2023 06:52 Dictated By: Michelle Ibrahim M.D. Signed By: 07/17/2354 DD/ 1 TD/TT: Sampler And Test Preparer:RASadiologjoey, Radiologist, - 07/31/2023 [place] [address] XRay Report Signed Patient: LAVERN DIETZ MR#: [id number] : 1965 Acct:[id number] Age/Sex: 58 / M ADM Date: 07/16/23 Loc: RAD Attending Dr: Rey Alcaraz D.P.M. Ordering Physician: Rey Alcaraz D.P.M. Date of Service: 07/16/23 Procedure(s): XR foot RT min 3V Accession Number(s): [id number] cc: Shaikh Heather Baker; Rey Alcaraz D.P.M. [facility] [place] [address] Patient Name: LAVERN DEWEY MRN: [facility]:[id number] date: 1965 Sex: M Assigned Patient Location: [facility] Current Patient Location: Accession/Order Number: [id number] Exam Date: 07/16/2023 13:10 Report Date: 07/17/2023 06:52 At the request of: REY ALCARAZ Procedure: XR foot RT min 3V PROCEDURE: [...] or change in alignment. Electronically authenticated by: MICHELLE IBRAHIM Date: 07/17/2023 06:52 Dictated By: Michelle Ibrahim M.D. Signed By: 07/17/23 0654 DD/ TD/TT: Sampler And Test Preparer: SELENA MazariegosXR FOOT RT MIN 3VOrdered By: Radiologist Radiology on 07-17-2023 SELENA [employer] Work Phone: XR ANKLE RT MIN 3Von 60-94-9293[place]mf[place], [place] [address] XRay Report Signed Patient: LAVERN DIETZ MR#: [id number] : 1965 Acct:[id number] Age/Sex: 58 / M ADM Date: 06/26/23 Loc: RAD Attending Dr: Rey Alcaraz D.P.M. Ordering Physician: Rey Alcaraz D.P.M. Date of Service: 06/26/23 Procedure(s): XR ankle RT min 3V Accession Number(s): [id number] cc: Shaikh Heather Baker; Rey Alcaraz D.P.M. [place] [address] Patient Name: LAVERN DEWEY MRN: [id number] date: 1965 Sex: M Assigned Patient Location: [facility] Current Patient Location: [facility] Accession/Order Number: [id number] Exam Date: 06/26/2023 13:56 Report Date: 06/26/2023 16:31 At the request of: REY ALCARAZ Procedure: XR ankle RT min 3V PROCEDURE: [...] Stable ankle fusion Electronically authenticated by: GERA MONTGOMERY Date: 06/26/2023 16:31 Dictated By: Gera Montgomery M.D. Signed By: 06/26/23 1633 DD/ 1631 TD/TT: Sampler And Test Preparer:BRAXTONHRadiology, Radiologist, - 07/31/2023 [place] [address] XRay Report Signed Patient: LAVERN DIETZ MR#: [id number] : 1965 Acct:[id number] Age/Sex: 58 / M ADM Date: 06/26/23 Loc: RAD Attending Dr: Rey Alcaraz D.P.M. Ordering Physician: Rey Alcaraz D.P.M. Date of Service: 06/26/23 Procedure(s): XR ankle RT min 3V Accession Number(s): [id number] cc: Shaikh Heather Baker; Rey Alcaraz D.P.M. [facility] [place] [address] Patient Name: LAVERN DEWEY MRN: [id number]:[id number] date: 1965 Sex: M Assigned Patient Location: [facility] Current Patient Location: [facility] Accession/Order Number: [id number] Exam Date: 06/26/2023 13:56 Report Date: 06/26/2023 16:31 At the request of: REY ALCARAZ Procedure: XR ankle RT min 3V PROCEDURE: [...] Stable ankle fusion Electronically authenticated by: GERA MONTGOMERY Date: 06/26/2023 16:31 Dictated By: Gera Montgomery M.D. Signed By: 06/26/231632 DD/ 163 TD/TT: Sampler And Test Preparer: SELENA HealthcareRadiology Study observation (narrative)SELENA HealthcareXR ANKLE RT MIN 3VOrdered By: Radiologist Radiology on 32-68-7044DF[facility] Work Phone: ct ANKLE RT WO CONon 06-79-8229[place]as[place], [place] [address] CT Scan Report Signed Patient: LAVERN DIETZ MR#: [id number] : 1965 Acct:[id number] Age/Sex: 58 / M ADM Date: 06/25/23 Loc: CT Attending Dr: Rey Alcaraz D.P.M. Ordering Physician: Rey Alcaraz D.P.M. Date of Service: 06/25/23 Procedure(s): CT ankle RT wo con Accession Number(s): [id number] cc: Shaikh Heather Baker [place] [id number] Patient Name: LAVERN DEWEY MRN: [id number] date: 1965 Sex: M Assigned Patient Location: CT Current Patient Location: CT Accession/Order Number: [id number] Exam Date: 06/25/2023 15:11 Report Date: 06/25/2023 16:07 At the request of: REY ALCARAZ Procedure: CT ankle RT wo con EXAMINATION: [...] severe degenerative osteoarthropathy of the knee with hqwr-xa-eojx articulation and remodeling of the lateral compartment SOFT TISSUES: Negative. No visible soft tissue swelling. EFFUSION: None visible. OTHER: Negative. CT/CT ankle RT wo con IMPRESSION: Stable ankle fusion Diffuse osteopenia Moderate to severe degenerative osteoarthritis of the knee Electronically authenticated by: GERA MONTGOMERY Date: 06/25/2023 16:07 Dictated By: Gera Montgomery M.D. Signed By: 06/25/23 1610 DD/ 1607 TD/TT: Sampler And Test Preparer:TBHRadiology, Radiologist, MD - 06/25/2023 [place] [address] CT Scan Report Signed Patient: LAVERN DIETZ MR#: [id number] : 1965 Acct:[id number] Age/Sex: 58 / M ADM Date: 06/25/23 Loc: CT Attending Dr: Rey Alcaraz D.P.M. Ordering Physician: Rey Alcaraz D.P.M. Date of Service: 06/25/23 Procedure(s): CT ankle RT wo con Accession Number(s): [id number] cc: Shaikh Heather Baker [facility] [place] [id number] Patient Name: LAVERN DEWEY MRN: [id number]:[id number] date: 1965 Sex: M Assigned Patient Location: CT Current Patient Location: CT Accession/Order Number: [id number] Exam Date: 06/25/2023 15:11 Report Date: 06/25/2023 16:07 At the request of: REY ALCARAZ Procedure: CT ankle RT wo con EXAMINATION: [...] severe degenerative osteoarthropathy of the knee with mxbh-ji-bmim articulation and remodeling of the lateral compartment SOFT TISSUES: Negative. No visible soft tissue swelling. EFFUSION: None visible. OTHER: Negative. CT/CT ankle RT wo con IMPRESSION: Stable ankle fusion Diffuse osteopenia Moderate to severe degenerative osteoarthritis of the knee Electronically authenticated by: GERA MONTGOMERY Date: 06/25/2023 16:07 Dictated By: Gera Montgomery M.D. Signed By: 06/25/23 1610 DD/ 1607 TD/TT: Sampler And Test Preparer: SELENA HealthcareRadiology Study observation (narrative)[facility] HealthcareCT ANKLE RT WO CONOrdered By: Radiologist Radiology on 22-44-2599ZBAB [facility] Work Phone: XR ANKLE RT MIN 3Von 39-43-2681[place], [place] [address] XRay Report Signed Patient: LAVERN DIETZ MR#: [id number] : 1965 Acct:[id number] Age/Sex: 58 / M ADM Date: 06/05/23 Loc: RAD Attending Dr: Rey Alcaraz D.P.M. Ordering Physician: Rey Alcaraz D.P.M. Date of Service: 06/05/23 Procedure(s): XR ankle RT min 3V Accession Number(s): [id number] cc: Shaikh Heather Baker; Rey Alcaraz D.P.M. [facility] [place] [address] Patient Name: LAVERN DEWEY MRN: [id number] date: 1965 Sex: M Assigned Patient Location: RAD Current Patient Location: Accession/Order Number: [id number] Exam Date: 06/05/2023 15:01 Report Date: 06/06/2023 07:20 At the request of: REY ALCARAZ Procedure: XR ankle RT min 3V PROCEDURE: [...] development of osteopenia Electronically authenticated by: GERA MONTGOMERY Date: 06/06/2023 07:20 Dictated By: Gera Montgomery M.D. Signed By: 06/06/23721 DD/ 9 TD/TT: Sampler And Test Preparer:BRAXTONHRadiology, Radiologist, - 07/31/2023 [place] [address] XRay Report Signed Patient: LAVERN DIETZ MR#: [id number] : 1965 Acct:[id number] Age/Sex: 58 / M ADM Date: 06/05/23 Loc: RAD Attending Dr: Rey Alcaraz D.P.M. Ordering Physician: Rey Alcaraz D.P.M. Date of Service: 06/05/23 Procedure(s): XR ankle RT min 3V Accession Number(s): [id number] cc: Shaikh Heather Baker; Rey Alcaraz D.P.M. [place] [address] Patient Name: LAVERN DEWEY MRN: [id number] date: 1965 Sex: M Assigned Patient Location: [facility] Current Patient Location: Accession/Order Number: [id number] Exam Date: 06/05/2023 15:01 Report Date: 06/06/2023 07:20 At the request of: REY ALCARAZ Procedure: XR ankle RT min 3V PROCEDURE: [...] development of osteopenia Electronically authenticated by: GERA MONTGOMERY Date: 06/06/2023 07:20 Dictated By: Gera Montgomery M.D. Signed By: 06/06/23721 DD/ 9 TD/TT: Sampler And Test Preparer: [facility] HealthcareRadiology Study observation (narrative)[facility] HealthcareXR ANKLE RT MIN 3VOrdered By: Radiologist Radiology on 14-20-5363[facility] Work Phone: XR ANKLE RT MIN 3Von 17-65-0326Pal[place], [place] [address] XRay Report Signed Patient: LAVERN DIETZ MR#: [id number] : 1965 Acct:[id number] Age/Sex: 58 / M ADM Date: 05/23/23 Loc: RAD Attending Dr: Rey Alcaraz D.P.M. Ordering Physician: Rey Alcaraz D.P.M. Date of Service: 05/23/23 Procedure(s): XR ankle RT min 3V Accession Number(s): [id number] cc: Shaikh Heather Baker; Rey Alcaraz D.P.M. [facility] [place] [phone] Patient Name: LAVERN DEWEY MRN: [id number] date: 1965 Sex: M Assigned Patient Location: [facility] Current Patient Location: [facility] Accession/Order Number: [id number] Exam Date: 05/23/2023 14:15 Report Date: 05/25/2023 18:11 At the request of: REY ALCARAZ Procedure: XR ankle RT min 3V EXAM: [...] M.D. Signed By: 05/29/23908 DD/ 10 TD/TT: Sampler And Test Preparer:BRAXTONHRadiology, Radiologist, - 07/31/2023 [place] [address] XRay Report Signed Patient: LAVERN DIETZ MR#: [id number] : 1965 Acct:[id number] Age/Sex: 58 / M ADM Date: 05/23/23 Loc: RAD Attending Dr: Rey Alcaraz D.P.M. Ordering Physician: Rey Alcaraz D.P.M. Date of Service: 05/23/23 Procedure(s): XR ankle RT min 3V Accession Number(s): [id number] cc: Shaikh Heather Baker; Rey Alcaraz D.P.M. [facility] [place] [phone] Patient Name: LAVERN DEWEY MRN: [id number] date: 1965 Sex: M Assigned Patient Location: [facility] Current Patient Location: [facility] Accession/Order Number: [id number] Exam Date: 05/23/2023 14:15 Report Date: 05/25/2023 18:11 At the request of: REY ALCARAZ Procedure: XR ankle RT min 3V EXAM: [...] Dictated By: Sony Rae M.D. Signed By: 05/29/2309 DD/ 10 TD/TT: Sampler And Test Preparer: SELENA MazariegosXR ANKLE RT MIN 3VOrdered By: Radiologist Radiology on 05-29-2023 [facility] Healthcare Work Phone: No Panel Informationon 36-27-2207Hsqydsdnu Study observation (narrative)SELENA HealthcareXR ANKLE LT MIN 3Von 26-74-7522[place], [place] [address] XRay Report Signed Patient: LAVERN DIETZ MR#: [id number] : 1965 Acct:[id number] Age/Sex: 58 / M ADM Date: 05/23/23 Loc: RAD Attending Dr: Rey Alcaraz D.P.M. Ordering Physician: Rey Alcaraz D.P.M. Date of Service: 05/23/23 Procedure(s): XR ankle LT min 3V Accession Number(s): [id number] cc: Shaikh Heather Baker; Rey Alcaraz D.P.M. [place] [address] Patient Name: LAVERN DEWEY MRN: [id number] date: 1965 Sex: M Assigned Patient Location: [facility] Current Patient Location: Accession/Order Number: [id number] Exam Date: 05/23/2023 14:15 Report Date: 05/25/2023 18:11 At the request of: REY ALCARAZ Procedure: XR ankle LT min 3V EXAM: [...] M.D. Signed By: 05/25/231813 DD/ 10 TD/TT: Sampler And Test Preparer:RASadiologjoey, Radiologist, - 05/25/2023 [place] [address] XRay Report Signed Patient: LAVERN DIETZ MR#: [id number] : 1965 Acct:[id number] Age/Sex: 58 / M ADM Date: 05/23/23 Loc: RAD Attending Dr: Rey Alcaraz D.P.M. Ordering Physician: Rey Alcaraz D.P.M. Date of Service: 05/23/23 Procedure(s): XR ankle LT min 3V Accession Number(s): [id number] cc: Shaikh Heather Baker; Rey Alcaraz D.P.M. [facility] [place] [address] Patient Name: LAVERN DEWEY MRN: [id number] date: 1965 Sex: M Assigned Patient Location: [facility] Current Patient Location: Accession/Order Number: [id number] Exam Date: 05/23/2023 14:15 Report Date: 05/25/2023 18:11 At the request of: REY ALCARAZ Procedure: XR ankle LT min 3V EXAM: [...] M.D. Signed By: 05/25/231813 DD/ 10 TD/TT: Sampler And Test Preparer: SELENA MazariegosXR ANKLE LT MIN 3VOrdered By: Radiologist Radiology on 05-25-2023 [facility] [employer] Work Phone: XR FOOT RT MIN 3Von 24-36-7423[place], [place] [address] XRay Report Signed Patient: LAVERN DIETZ MR#: [id number] : 1965 Acct:[id number] Age/Sex: 58 / M ADM Date: 05/23/23 Loc: RAD Attending Dr: Rey Alcaraz D.P.M. Ordering Physician: Rey Alcaraz D.P.M. Date of Service: 05/23/23 Procedure(s): XR foot RT min 3V Accession Number(s): [id number] cc: Shaikh Heather Baker; Rey Alcaraz D.P.M. [facility] [place] [address] Patient Name: LAVERN DEWEY MRN: [id number] date: 1965 Sex: M Assigned Patient Location: RAD Current Patient Location: RAD Accession/Order Number: [id number] Exam Date: 05/23/2023 14:15 Report Date: 05/25/2023 19:25 At the request of: REY ALCARAZ Procedure: XR foot RT min 3V EXAM: [...] M.D. Signed By: 05/25/231926 DD/ 24 TD/TT: Sampler And Test Preparer:TBHRadiology, Radiologist, - 07/31/2023 [place] [address] XRay Report Signed Patient: LAVERN DIETZ MR#: [id number] : 1965 Acct:[id number] Age/Sex: 58 / M ADM Date: 05/23/23 Loc: RAD Attending Dr: Rey Alcaraz D.P.M. Ordering Physician: Rey Alcaraz D.P.M. Date of Service: 05/23/23 Procedure(s): XR foot RT min 3V Accession Number(s): [id number] cc: Shaikh Heather Baker; Rey Alcaraz D.P.M. [place] [address] Patient Name: LAVERN DEWEY MRN: [id number] date: 1965 Sex: M Assigned Patient Location: RAD Current Patient Location: RAD Accession/Order Number: [id number] Exam Date: 05/23/2023 14:15 Report Date: 05/25/2023 19:25 At the request of: REY ALCARAZ Procedure: XR foot RT min 3V EXAM: [...] M.D. Signed By: 05/25/231926 DD/ 24 TD/TT: Sampler And Test Preparer: SELENA HealthcareRadiology Study observation (narrative)[facility] HealthcareXR FOOT RT MIN 3VOrdered By: Radiologist Radiology on 70-89-5520[facility] Work Phone: Glucose Glucometer (BldC) [Mass/Vol]Ordered By: Silver Briceño on 67-12-2502Pjudcvd [Mass/Vol]137 mg/dLSt. [facility] Comment on above:Random Glucose Reference Range is dependent on time and content of last meal. Glucose of more than 200 mg/dL in a nonstressed, ambulatory subject supports the diagnosis of Diabetes Mellitus.Glucose [Mass/Vol]131 mg/dL [facility] CenterComment on above:Random Glucose Reference Range is dependent on time and content of last meal. Glucose of more than 200 mg/dL in a nonstressed, ambulatory subject supports the diagnosis of Diabetes Mellitus.Glucose Poct Glucometerson 04-30-3500Bszfutc [Mass/Vol]137 mg/dLNormal St. [facility] Medical CenterComment on above:Result Comment: Random Glucose Reference Range is dependent on time and content of last meal. Glucose of more than 200 mg/dL in a nonstressed, ambulatory subject supports the diagnosis of Diabetes Mellitus. PERFORMED BY: [facility] [address] [place] [address] PATHOLOGIST LEG BREAKER TEOFILO KHAN M.D.Performed By: #### GLULS #### Point of Care testing ,Glucose [Mass/Vol]131 mg/dLNormalSt. Mary'S Medical CenterComment on above:Result Comment: Random Glucose Reference Range is dependent on time and content of last meal. Glucose of more than 200 mg/dL in a nonstressed, ambulatory subject supports the diagnosis of Diabetes Mellitus. PERFORMED BY: [place] [address] PATHOLOGIST LEG BREAKER TEOFILO KHAN M.D.Performed By: #### GLULS #### Point of Care testing ,Basic Metabolic Panelon 26-56-6136Isntx gap [Moles/Vol]13.5 mmol/LNormal 6.0-15.0St. [facility] Medical CenterComment on above:Performed By: #### CBC, BMP #### [facility] [address] [place] [address] USACalcium [Mass/Vol]9.4 mg/dLNormal8.6-10.3FHolmes County Joel Pomerene Memorial HospitalComment on above:Result Comment: PERFORMED BY: [place] [address] PATHOLOGIST LEG BREAKER TEOFILO KHAN M.D.Performed By: #### CBC, BMP #### [facility] [address] [place] [address] USAChloride [Moles/Vol]102 mmol/KOcttxt12-986XlaiovqqrSt. Mary'S Medical CenterComment on above:Performed By: #### CBC, BMP #### [facility] [address] [place] [address] USACO2 [Moles/Vol]28.5 mmol/AGfvdap24.0-31.0St. [facility]'S Medical CenterComment on above:Performed By: #### CBC, BMP #### [facility] [address] [place] [address] USACreatinine [Mass/Vol]0.99 mg/dLNormal0.70-1.30St. Mary'S Medical CenterComment on above:Performed By: #### CBC, BMP #### [facility] [address] [place] [address] USAGFR/1.73 sq M.predicted MDRD (S/P/Bld) [Vol rate/Area] mL/min/{1.73_m2}NormalSt. Mary'S Medical CenterComment on above: Performed By: #### CBC, BMP #### [facility] [address] [place], [place] [address] USAGlucose [Mass/Vol]114 mg/cQXmdp19-997KkjlxbvrySt. Mary'S Medical CenterComment on above:Result Comment: Random Glucose Reference Range is dependent on time and content of last meal. Glucose of more than 200 mg/dL in a nonstressed, ambulatory subject supports the diagnosis of Diabetes Mellitus. ADA recommended reference rangePerformed By: #### CBC, BMP #### [facility] [address] [place] [address] USAPotassium [Moles/Vol]4.0 mmol/LNormal3.5-5.1FHolmes County Joel Pomerene Memorial HospitalComment on above:Performed By: #### CBC, BMP #### [facility] [address] [place] [address] USASodium [Moles/Vol]140 mmol/MRfrpob548-517JxnqktirqSt. Mary'S Medical CenterComment on above:Performed By: #### CBC, BMP #### [facility] [address] [place] [address] USAUrea nitrogen [Mass/Vol]21 mg/dLNormal7-25St. Mary'S Medical CenterComment on above:Performed By: #### CBC, BMP #### [place] [address] USABasophils Auto (Bld) [#/Vol]Ordered By: Silver Briceño on 28-42-5051Uofsdkhek (Bld) [#/Vol]0.0 10*3/uL0.0-0.2FHolmes County Joel Pomerene Memorial HospitalBasophils/100 WBC Auto (Bld)Ordered By: Silver Briceño on 08-30-2022 Basophils/100 WBC (Bld)0.7 %.St. [facility]'S Medical CenterCalcium [Mass/volume] in Serum or PlasmaOrdered By: Silver Briceño on 87-89-8399Ryemtix [Mass/Vol]9.4 mg/dL8.6-10.3FHolmes County Joel Pomerene Memorial HospitalCarbon dioxide, total [Moles/volume] in Serum or PlasmaOrdered By: Silver Briceño on 32-75-9220JN0 [Moles/Vol]28.5 mmol/L21.0-31.0St. [facility]S Medical CenterChloride [Moles/volume] in Serum or PlasmaOrdered By: Silver Briceño on 28-25-6088Bacekkxs [Moles/Vol]102 mmol/W68-019DjpbggefpSt. Mary'S Medical CenterComplete Blood Count Auto Diffon 84-73-8991Wqgeermsm (Bld) [#/Vol]0.0 10*3/uLNormal0.0-0.2FHolmes County Joel Pomerene Memorial HospitalComment on above:Result Comment: PERFORMED BY: [place] [address] PATHOLOGIST LEG BREAKER TEOFILO KHAN M.D.Performed By: #### CBC, BMP #### [facility] [address] [place] [address] USABasophils/100 WBC (Bld)0.7 %Normal.St. Mary'S Medical CenterComment on above:Performed By: #### CBC, BMP #### [facility] [address] [place] [address] USAEosinophils (Bld) [#/Vol]0.3 10*3/uLNormal0.0-0.45 [facility]S Medical CenterComment on above:Performed By: #### CBC, BMP #### [facility] [address] [place] [address] USAEosinophils/100 WBC (Bld)6.1 %Normal.St. Mary'S Medical CenterComment on above:Performed By: #### CBC, BMP #### [facility] [address] [place] [address] USAErythrocyte distribution width (RBC) [Ratio]14.5 %Normal 12.0-14.8St. Mary'S Medical CenterComment on above:Performed By: #### CBC, BMP #### [facility] [address] [place] [address] USAHematocrit (Bld) [Volume fraction]36.5 %Low38.8-50.0 [facility]S Medical CenterComment on above:Performed By: #### CBC, BMP #### [facility] [address] [place] [address] USAHemoglobin (Bld) [Mass/Vol]12.5 g/dLLow13.0-17.0St. Mary'S Medical CenterComment on above:Performed By: #### CBC, BMP #### [facility] [address] [place] [address] USALymphocytes (Bld) [#/Vol]1.8 10*3/uLNormal1.00-4.8 [facility]S Medical CenterComment on above:Performed By: #### CBC, BMP #### [facility] [address] [place] [address] USALymphocytes/100 WBC (Bld)35.5 %Normal.St. Mary'S Medical CenterComment on above:Performed By: #### CBC, BMP #### [facility] [address] [place] [address] USAMCH (RBC) [Entitic mass]29.2 zqNpkmeb60.5-35.2FHolmes County Joel Pomerene Memorial HospitalComment on above:Performed By: #### CBC, BMP #### [facility] [address] [place] [id number] USAMCV (RBC) [Entitic vol]85.1 xAXrxatu03.5-101St. Mary'S Medical CenterComment on above:Performed By: #### CBC, BMP #### [facility] [address] [place] [address] USAMean Corpuscular HGB Conc34.3 g/gGPtgjua08.5-35.6FHolmes County Joel Pomerene Memorial HospitalComment on above:Performed By: #### CBC, BMP #### [facility] [address] [place] [address] USAMonocytes (Bld) [#/Vol]0.4 10*3/uLNormal0.0-0.8St. Mary'S Medical CenterComment on above:Performed By: #### CBC, BMP #### [facility] [address] [place] [address] USAMonocytes/100 WBC (Bld)8.2 %Normal.St. [facility]'S Medical CenterComment on above:Performed By: #### CBC, BMP #### [facility] [address] [place] [address] USANeutrophils (Bld) [#/Vol]2.5 10*3/uLNormal1.8-7.7FHolmes County Joel Pomerene Memorial HospitalComment on above:Performed By: #### CBC, BMP #### [facility] [address] [place] [address] USANeutrophils/100 WBC (Bld)49.5 %Normal.St. [facility]'S Medical CenterComment on above:Performed By: #### CBC, BMP #### [facility] [address] [place] [address] USANRBC%0.2 /100{WBC}Normal0-0.5FHolmes County Joel Pomerene Memorial HospitalComsouthwest regional rehabilitation center on above:Performed By: #### CBC, BMP #### [facility] [address] [place] [address] USAPlatelet mean volume (Bld) [Entitic vol]8.8 fLNormal 6.6-10.1FHolmes County Joel Pomerene Memorial HospitalComment on above:Performed By: #### CBC, BMP #### [facility] [address] [place] [address] USAPlatelets (Bld) [#/Vol]155 10*3/oRSsfutp287-040SduwngpcySt. Mary'S Medical CenterComment on above:Performed By: #### CBC, BMP #### [facility] [address] [place] [address] USARBC (Bld) [#/Vol]4.29 10*6/uLNormal3.90-5.60St. [facility]'S Medical CenterComment on above:Performed By: #### CBC, BMP #### [facility] [address] [place] [address] USAWBC (Bld) [#/Vol]5.1 10*3/uLNormal4.1-10.5FHolmes County Joel Pomerene Memorial HospitalComment on above:Performed By: #### CBC, BMP #### [facility] [address] [place] [address] USACreatinine [Mass/volume] in Serum or PlasmaOrdered By: Silver Briceño on 94-21-0182Voxouvhagw [Mass/Vol]0.99 mg/dL0.70-1.30St. [facility]S Medical CenterECG 12 lead ECGon 99-74-7906NNT 12 lead ECGSOUTHVIEW MED[facility] Main [place] [address] [place], [place] [id number] Electrocardiograph Report Signed Patient: Lavern Dietz MR#: [id number] : 1965 Acct:[id number] Age/Sex: 57 / M ADM Date: 08/30/22 Loc: Room: Type: [facility] Attending Dr: Silver Briceño DO Ordering [...] previous ECGs available Confirmed by KATE GUPTA FACLEANNA Flynn ([id number]) on 08/31/2022 12:23:25 PM Referred By: FREDDY Electronically Signed By:LEANNA ROBINS MD, FACC Transcribed By: MUS Signed By Leo Robins MD 08/31/22 1223NoDayton VA Medical CenterEosinophils Auto (Bld) [#/Vol]Ordered By: Silver Briceño on 51-96-6425Dhwwjgkilmn (Bld) [#/Vol]0.3 10*3/uL 0.0-0.45St. [facility]'S Medical CenterEosinophils/100 WBC Auto (Bld)Ordered By: Silver Briceño on 28-43-7083Ddgzmonazqb/100 WBC (Bld)6.1 %.St. [facility]'S Medical CenterErythrocyte distribution width Auto (RBC) [Ratio]Ordered By: Silver Briceño on 74-21-3944Zsdvmrljbgy distribution width (RBC) [Ratio]14.5 %12.0-14.8 [facility] Medical CenterGlucose [Mass/volume] in Serum or PlasmaOrdered By: Silver Briceño on 26-55-0745Wrolfff [Mass/Vol]114 mg/sE43-753GqhvtirkeSt. Mary'S Medical CenterComment on above:ADA recommended reference rangeRandom Glucose Reference Range is dependent on time and content of last meal. Glucose of more than 200 mg/dL in a nonstressed, ambulatory subject supports the diagnosisof Diabetes Mellitus.Hematocrit Auto (Bld) [Volume fraction]Ordered By: Silver Briceño on 59-72-8500Bzjbjpohna (Bld) [Volume fraction]36.5 %38.8-50.0 [facility] Medical CenterHemoglobin [Mass/volume] in BloodOrdered By: Silver Briceño on 99-93-6933Blbxsvhodo (Bld) [Mass/Vol]12.5 g/dL13.0-17.0St. [facility]'S Medical CenterLeukocytes [#/volume] corrected for nucleated erythrocytes in Blood by Automated counOrdered By: Silver Briceño on 49-33-8162MZW corrected for nucl RBC Auto (Bld) [#/Vol]5.1 10*3/uL4.1-10.5FHolmes County Joel Pomerene Memorial HospitalLymphocytes Auto (Bld) [#/Vol]Ordered By: Silver Briceño on 48-18-0032Yyewbifvnvs (Bld) [#/Vol]1.8 10*3/uL1.00-4.8St. [facility]'S Medical CenterLymphocytes/100 WBC Auto (Bld)Ordered By: Silver Briceño on 08-30-2022 Lymphocytes/100 WBC (Bld)35.5 %.[facility]S Medical CenterMCH Auto (RBC) [Entitic mass]Ordered By: Silver Briceño on 66-80-5944DDR (RBC) [Entitic mass]29.2 pg27.5-35.2FHolmes County Joel Pomerene Memorial HospitalMCHC Auto (RBC) [Mass/Vol]Ordered By: Silver Briceño on 48-82-9455KTJO (RBC) [Mass/Vol]34.3 g/dL32.5-35.6FHolmes County Joel Pomerene Memorial HospitalMCV Auto (RBC) [Entitic vol]Ordered By: Silver Briceño on 22-21-7197WYA (RBC) [Entitic vol]85.1 fL83.5-101St. [facility]S Medical CenterMonocytes Auto (Bld) [#/Vol]Ordered By: Silver Briceño on 08-40-7587Uewbjufpu (Bld) [#/Vol]0.4 10*3/uL0.0-0.8St. [facility] Medical CenterMonocytes/100 WBC Auto (Bld)Ordered By: Silver Briceño on 89-66-8719Kmwaffvnc/100 WBC (Bld)8.2 %. [facility]S Medical CenterNeutrophils Auto (Bld) [#/Vol]Ordered By: Silver Briceño on 49-74-2018Mboqcithvts (Bld) [#/Vol]2.5 10*3/uL1.8-7.7FHolmes County Joel Pomerene Memorial HospitalNeutrophils/100 WBC Auto (Bld)Ordered By: Silver Briceño on 71-42-7605Angqjnutcod/100 WBC (Bld)49.5 %.[facility] Medical CenterNo Panel InformationOrdered By: Silver Briceño on 45-34-9461Dtpnmftos GFR (CKD-EPI)> 60.0 mL/MinSt. Mary'S Medical CenterPharmacy Creatinine Clearance (Chem N/AFHolmes County Joel Pomerene Memorial HospitalNucleated erythrocytes [Presence] in Blood by Automated countOrdered By: Silver Briceño on 26-23-7717Ldstcafdh RBC Auto Ql (Bld)0.2 /100{WBC}0-0.5FHolmes County Joel Pomerene Memorial HospitalPlatelet mean volume Auto (Bld) [Entitic vol]Ordered By: Silver Briceño on 94-23-6682Sktkgjxy mean volume (Bld) [Entitic vol]8.8 fL6.6-10.1FHolmes County Joel Pomerene Memorial Hospital Platelets Auto (Bld) [#/Vol]Ordered By: Silver Briceño on 07-41-4704Suuhqnlcl (Bld) [#/Vol]155 10*3/sY769-586CrgysvxgwSt. Mary'S Medical CenterPotassium [Moles/volume] in Serum or PlasmaOrdered By: Silver Briceño on 69-91-7529Bqkmgbqmc [Moles/Vol]4.0 mmol/L3.5-5.1FHolmes County Joel Pomerene Memorial HospitalRBC Auto (Bld) [#/Vol]Ordered By: Silver Briceño on 66-35-9450YQY (Bld) [#/Vol]4.29 10*6/uL 3.90-5.60[facility] Centererum or plasma anion gap determinationOrdered By: Silver Briceño on 10-96-1529Ognll gap [Moles/Vol]13.5 mmol/L6.0-15.0[facility] Centerodium [Moles/volume] in Serum or PlasmaOrdered By: Silver Briceño on 42-89-5854Bdkkqp [Moles/Vol]140 mmol/F691-022 [facility]S Medical CenterUrea nitrogen [Mass/volume] in Serum or Plasma Ordered By: Silver Briceño on 46-22-5851Utsi nitrogen [Mass/Vol]21 mg/dL7-25 [facility] Medical CenterWBC Auto (Bld) [#/Vol]Ordered By: Silver Briceño on 04-69-3453UZN (Bld) [#/Vol]5.1 10*3/uL4.1-10.5FHolmes County Joel Pomerene Memorial HospitalGLYCOHEMOGLOBIN A1Con 24-43-8545IGG RECOMMENDATIONSEE [facility]aut Medical CenterComment on above:Result Comment: ADA RECOMMENDED LIMIT 4.0 - 6.0 ADA THERAPEUTIC TARGET < 7.0 ACTION SUGGESTED > 7.0Performed By: #### A1C #### [facility] [address] [place] [address] [address] Idania TaiGlucose [Mass/Vol]243 mg/dLNoSt. Charles HospitalComment on above:Performed By: #### A1C #### [facility] [address] [address] [address] Idania TaiHbA1c (Bld) [Mass fraction]10.1 %Critically high4.5-6.2Day[facility] Osteopathic HospitalComment on above:Performed By: #### A1C #### [facility] [address] [address] [address] Idania CannonID PROFILEon 48-23-7954YGQH-HDL RATIO NORMSEE [facility] CenterComment on above:Result Comment: 3.3 - 4.4 LOW RISK 4.4 - 7.1 AVERAGE RISK 7.1 - 11.0 MODERATE RISK >11.0 HIGH RISKPerformed By: #### BMP, LIPID #### [facility] [address] [place] [address] Dr. Idania TaiCholesterol [Mass/Vol]172 mg/dLNormal<=200The [facility] Comment on above:Performed By: #### BMP, LIPID #### [facility] [address] [place] [address] Dr. Idania Lawrenceesterol in HDL [Mass/Vol]48 mg/mRXnuonb54-63Fzb [facility] HospitalComment on above:Performed By: #### BMP, LIPID #### [facility] [address] [place] [address] Dr. Idania TaiCholesterol in LDL [Mass/Vol]95.6 mg/dLKettering Health PrebleComment on above:Performed By: #### BMP, LIPID #### [facility] [address] [address] [address] Idania Lawrenceesternorman.total/Cholesterol in HDL [Mass ratio]3.6 {ratio} NormalThe [facility] HospitalComment on above:Performed By: #### BMP, LIPID #### [facility] [address] [place] [address] Dr. Idania AlonsoL NORMAL> or = 60 mg/dl - LOW CARDIOVASCULAR RISK <40 mg/dl - HIGH CARDIOVASCULAR RISKKettering Health PrebleComment on above:Performed By: #### BMP, LIPID #### [facility] [address] [address] [address] Idania Fleming CALC NORMALSEE BELOWKettering Health PrebleComment on above:Result Comment: <100 mg/dl OPTIMAL 100 - 129 mg/dl NEAR OR ABOVE OPTIMAL 130 - 159 mg/dl BORDERLINE HIGH 160 - 189 mg/dl HIGH >190 mg/dl VERY HIGH Performed By: #### BMP, LIPID #### [facility] [address] [address] [address] Idania TaiTriglyceride [Mass/Vol]142 mg/dLNormal<=150[facility] Comment on above:Performed By: #### BMP, LIPID #### [facility] [address] [address] [address] Idania TaiVLDL CALC28.4 mg/dLKettering Health PrebleComment on above: Performed By: #### BMP, LIPID #### [facility] [address] [place] [address] Dr. Idania TaiPROF CHEM 8 (BAS METB)on 11-03-2841Tfveh gap [Moles/Vol]11.0 mmol/LNormalDayton Osteopathic HospitalComsouthwest regional rehabilitation center on above:Performed By: #### BMP, LIPID #### [facility] [address] [place] [address] Dr. Idania TaiCalcium [Mass/Vol]9.1 mg/dLNormal8.5-10.1[facility] Comment on above:Performed By: #### BMP, LIPID #### [facility] [address] [address] [address] Idania TaiChloride [Moles/Vol]100 mmol/HYsgyif82-046WufDayton Osteopathic Hospital Comment on above:Performed By: #### BMP, LIPID #### [facility] [address] [address] [address] Idania TaiCO2 [Moles/Vol]32.6 mmol/LCritically high21.0-32.0[facility] HospitalComment on above:Performed By: #### BMP, LIPID #### [facility] [address] [address] [address] Idania TaiCreatinine [Mass/Vol]0.81 mg/dLNormal0.70-1.30The [facility] HospitalComment on above:Performed By: #### BMP, LIPID #### [facility] [address] [address] [address] Idania CasperGFR-AF CITIZEN OF [place]>60Normal>=60The [facility] HospitalComment on above:Performed By: #### BMP, LIPID #### [facility] [address] [address] [address] Idania CasperGFR-NON AF CITIZEN OF [place]>60Normal>=60The [facility] HospitalComment on above:Performed By: #### BMP, LIPID #### [facility] [address] [address] [address] Idania TaiGlucose [Mass/Vol]157 mg/dLCritically koxt94-270Boo [facility] HospitalComment on above:Performed By: #### BMP, LIPID #### [facility] [address] [address] [address] Idania TaiPotassium [Moles/Vol]3.6 mmol/LNormal3.5-5.1[facility] Comment on above:Performed By: #### BMP, LIPID #### [facility] [address] [address] [address] Idania TaiSodium [Moles/Vol]140 mmol/UNwgzwq646-902Uzi [facility] Comment on above:Performed By: #### BMP, LIPID #### [facility] [address] [address] [address] Idania TaiUrea nitrogen [Mass/Vol]16.0 mg/dLNormal7.0-18.0The [facility]zer Health Systemment on above:Performed By: #### BMP, LIPID #### [facility] [address] [address] [address] Idania TaiUrea nitrogen/Creatinine [Mass ratio]19.8 mg/mgNormalThe [facility] HospitalComment on above:Performed By: #### BMP, LIPID #### [facility] [address] [address] [address] Idania TaiPROF CHEM 8 (BAS METB)on 50-18-3584Eoxmx gap [Moles/Vol]16.1 mmol/LNormalThe [facility] HospitalComment on above:Performed By: #### BMP #### [facility] [address] [address] [address] Idania TaiCalcium [Mass/Vol]9.4 mg/dLNormal8.5-10.1The [facility] Comment on above:Performed By: #### BMP #### [facility] [address] [place] [address] Dr. Idania TaiChloride [Moles/Vol]98 mmol/NZotoog76-886QxzDayton Osteopathic Hospital Comment on above:Performed By: #### BMP #### [facility] [address] [place] [address] Dr. Idania TaiCO2 [Moles/Vol]26.0 mmol/LEtoejr94.0-32.0The [facility] Comment on above:Performed By: #### BMP #### [facility] [address] [place] [address] Dr. Idania TaiCreatinine [Mass/Vol]0.78 mg/dLNormal0.70-1.30The [facility] HospitalComment on above:Performed By: #### BMP #### [facility] [address] [place] [address] Dr. Idania CasperGFR-AF CITIZEN OF [place]>60Normal>=60The [facility] HospitalComment on above:Performed By: #### BMP #### [facility] [address] [address] [address] Idania CasperGFR-NON AF CITIZEN OF [place]>60Normal>=60The [facility] HospitalComment on above:Performed By: #### BMP #### [facility] [address] [place] [address] Dr. Idania TaiGlucose [Mass/Vol]131 mg/dLCritically hekg07-435Hsr [facility] HospitalComment on above:Performed By: #### BMP #### [facility] [address] [place], [place] [address] Dr. Idania TaiPotassium [Moles/Vol]4.1 mmol/LNormal3.5-5.1[facility] Comment on above:Performed By: #### BMP #### [facility] [address] [place], [place] [address] Dr. Idania TaiSodium [Moles/Vol]136 mmol/FUuomug760-994Mch [facility] Comment on above:Performed By: #### BMP #### [facility] [address] [address] [address] Idania TaiUrea nitrogen [Mass/Vol]19.0 mg/dLCritically high7.0-18.0The [facility] HospitalComment on above:Performed By: #### BMP #### [facility] [address] [address] [address] Idania TaiUrea nitrogen/Creatinine [Mass ratio]24.4 mg/mgNoalThWright-Patterson Medical CenterComment on above:Performed By: #### BMP #### [facility] [address] [id number] Idania TaiGlucose Glucometer ([facility]) [Mass/Vol]Ordered By: Sav Andrews on 20-93-6129Lcyyqcl [Mass/Vol]113 mg/dLSt. Mary'S Medical CenterComment on above:Random Glucose Reference Range is dependent on time and content of last meal. Glucose of more than 200 mg/dL in a nonstressed, ambulatory subject supports the diagnosis of Diabetes Mellitus.Glucose Poct Glucometerson 56-38-4060Lietieq [Mass/Vol]113 mg/dLNoDayton VA Medical Center Comment on above:Result Comment: Random Glucose Reference Range is dependent on time and content of last meal. Glucose of more than 200 mg/dL in a nonstressed, ambulatory subject supports the diagnosis of Diabetes Mellitus. PERFORMED BY: [address] [address] PATHOLOGIST LEG BREAKER TEOFILO KHAN M.D.Performed By: #### GLULS #### Point of Care testing ,COVID-19 Antigenon 02-40-5021WKXWZ-19 AntigenHealthcare Worker?: N Reference Range: Negative Negative results, [...] developed and its performance characteristic determined by [employer] and validated at [facility]. This test has not been [...] for SARS Antigen by SIN PERFORMED BY: [address] [address] PATHOLOGIST LEG BREAKER TEOFILO KHAN M.D.[facility]ina HospitalComment on above: Performed By: #### COVID-19 MAYRA, SOFIANEG #### [place] [address] USACOVID-19 SOFIAOrdered By: Sav Andrews on 07-27-2022 SARS-CoV+SARS-CoV-2 (COVID-19) Ag IA.rapid Ql (Resp)NegativeNegativeSt. Mary'S Medical CenterComment on above:This is a duplicate Mayra SARS Antigen (SIN) result to be used for statistical tracking purpose only.No Panel InformationOrdered By: Sav Andrews on 77-16-8753NASR Antigen (LFIA)[facility] Centerofia Ag Negativeon 27-34-6901Ryxhx Ag NegativeNegative NormalNegativeSt. Mary'S Medical CenterComment on above:Result Comment: This is a duplicate Mayra SARS Antigen (SIN) result to be used for statistical tracking purpose only. PERFORMED BY: [place] [address] PATHOLOGIST LEG BREAKER TEOFILO KHAN M.D.Performed By: #### COVID-19 MAYRA, SOFIANEG #### [place] [address] USACT ANKLE RT WO CONon 28-65-5500XC ANKLE RT WO CON EXAMINATION: CT ANKLE [...] severe tricompartmental osteoarthropathy of the knee with olzc-ve-dgkc articulation of the lateral compartment. SOFT TISSUES: Negative. No visible soft tissue swelling. EFFUSION: None visible. OTHER: Negative. IMPRESSION: Progression of subchondral degenerative cystic changes of the tibial plafond and calcaneus Moderate to severe knee osteoarthritis with tplb-he-bzen articulation of the lateral compartment Electronically authenticated by: GERA MONTGOMERY Date: 2021-11-14 16:[address] [place] [address] AUTO DIFFon 04-40-3722NKIO #0.1 103/ulNormal0.0-0.1The [facility] HospitalComment on above:Performed By: #### CBC ####[facility] X[address] [place], [place] [address]Dr.Idania ChangBasophils/100 WBC (Bld)0.8 %Normal0.2-2.0The [facility] HospitalComment on above:Performed By: #### CBC ####[facility] Bclecae[address] [place], [place] [address]Dr.Yilan ChangEO #0.2 103/ulNormal0.0-0.7The [facility] HospitalComment on above:Performed By: #### CBC ####[facility] Pr[address]wrsx[address] [place], [place] [address]Dr.Idania ChangEosinophils/100 WBC (Bld)2.2 %Normal 0.9-7.0The [facility] HospitalComment on above:Performed By: #### CBC ####[facility] [address] [place], [place] [address]Dr.Idania Tai Erythrocyte distribution width (RBC) [Ratio]13.1 %Xjcfwz35.0-15.0The [facility] HospitalComsouthwest regional rehabilitation center on above:Performed By: #### CBC ####[facility] Uuitbyocli[address] [place], [place] [address]Dr.Idania ChangHematocrit (Bld) [Volume fraction]44.5 %Zqievh04.0-54.0The [facility] HospitalComment on above:Performed By: #### CBC ####[facility] Rxnctppgms[address] [place], [place] [address]Dr.Idania ChangHemoglobin (Bld) [Mass/Vol]14.9 g/dL Wgsxbn33.0-18.0The [facility] HospitalComment on above:Performed By: #### CBC ####[facility] V[address]ufgouci[address] [place], [place] [address]Dr. Idania ChangIG #0.13 10e3/ulCritically high0.00-0.03The [facility] HospitalComment on above:Performed By: #### CBC ####[facility] [address] [address]Dr.Idania TaiIG %1.5 %Critically high0.0-0.5The [facility] HospitalComment on above:Performed By: #### CBC ####[facility] [address] [address]Dr.Idania TaiLYMPH #2.4 103/ulNormal1.2-3.8The [facility] HospitalComment on above:Performed By: #### CBC ####[facility] [address]ib[address] [place], [place] [address]Dr. Idania TaiLymphocytes/100 WBC (Bld)27.7 %Eqobdd02.5-60.0The [facility] Comment on above:Performed By: #### CBC ####[facility] En[address]zywn[address] [place], [place] [address]Dr.Idania TaiMANUAL DIFF REQNONormalThe [facility] HospitalComment on above:Performed By: #### CBC ####[facility] Ejlbfcxqkm[address] [place], [place] [address]Dr.Idania TaiH (RBC) [Entitic mass]28.9 fwDcmoxu44.9-34.0The [facility] HospitalComment on above: Performed By: #### CBC ####[facility] Buqmytnx[address] [place], [place] [address]Dr.Idania TaiHC (RBC) [Mass/Vol]33.5 g/dLNormal 29.9-35.2The [facility] HospitalComment on above:Performed By: #### CBC ####[facility] Tojpnzrhag[address] [place], [place] [address]Dr. Idania TaiV (RBC) [Entitic vol]86.4 jLTupctv93.0-94.0The [facility] Comment on above:Performed By: #### CBC ####[facility] Qwftxewfdp[address] [place], [place] [address]Dr.Idania TaiMONO #0.6 103/ulNormal0.3-0.8 The [facility] HospitalComment on above:Performed By: #### CBC ####[facility] [address] [address]Dr.Idania Tai Monocytes/100 WBC (Bld)6.4 %Normal1.7-12.0The [facility] HospitalComment on above: Performed By: #### CBC ####[facility] [address] [address]Dr.Idania TaiNEUT #5.3 103/ulNormal1.4-6.5The [facility] HospitalComment on above:Performed By: #### CBC ####[facility] Tryiuqcsdh[address] [place], [place] [address]Dr.Idania TaiNeutrophils/100 WBC (Bld)61.4 %Zubvzw33.0-75.0The [facility] HospitalComment on above:Performed By: #### CBC ####[facility] Jnbrneuool[address] [place], [place] [address]Dr.Idania TaiPlatelet mean volume (Bld) [Entitic vol]9.7 fLNormal9.5-13.5 The [facility] HospitalComment on above:Performed By: #### CBC ####[facility] Esafxdmwcw[address] [place], [place] [address]Dr.Idania CgbdoBJK118 103/nlOjosgc467-815Mkb [facility] HospitalComment on above:Performed By: #### CBC ####[facility] Rojdbnjsxz[address] [place], [place] [address]Dr. Idania ChangRBC5.15 106/ulNormal4.70-6.10The [facility] HospitalComment on above: Performed By: #### CBC ####[facility] Vajhtkcxft[address] [place], [place] [address]Dr.Idania ChangWBC8.6 103/ulNormal4.0-11.0The [facility] HospitalComment on above:Performed By: #### CBC ####[facility] Epbgkmtmyi[address] [place], [place] [address]Dr.Idania TaiGLYCOHEMOGLOBIN A1Con 65-90-5154IVD RECOMMENDATIONADA THERAPEUTIC TARGET 6.0 - 7.0 ACTION SUGGESTED > 7.0NoSt. Charles HospitalComment on above:Performed By: #### A1C ####[facility] [address] [address]Dr. Idania TaiGlucose [Mass/Vol]128 mg/dLNoSt. Charles HospitalComment on above:Performed By: #### A1C ####[facility] [address] [address]Dr.Yilan TaiHbA1c (Bld) [Mass fraction]6.1 % Critically high<=6.0The [facility] HospitalComment on above:Performed By: #### A1C ####[facility] [address] [address]Dr. Idania TaiLIPID PROFILEon 09-21-7619QSDD-HDL RATIO NORMSEE BELOWKettering Health PrebleComment on above:Result Comment: 3.3 - 4.4 LOW RISK 4.4 - 7.1 AVERAGE RISK 7.1 - 11.0 MODERATE RISK >11.0 HIGH RISKPerformed By: #### LIPID, CMP #### [facility] [address] [address] [address] Idania Lawrenceesterol [Mass/Vol]175 mg/dLNormal<=200The [facility] Comment on above:Performed By: #### LIPID, CMP #### [facility] [address] [address] [address] Idania TaiCholesterol in HDL [Mass/Vol]54 mg/lXJsdstw29-23Erc [facility] HospitalComment on above:Performed By: #### LIPID, CMP #### [facility] [address] [address] [address] Idania Lawrenceesterol in LDL [Mass/Vol]87.2 mg/dLKettering Health PrebleComment on above:Performed By: #### LIPID, CMP #### [facility] [address] [address] [address] Idania Pratt.total/Cholesterol in HDL [Mass ratio]3.2 {ratio} NormalThe Neil HospitalComment on above:Performed By: #### LIPID, CMP #### [facility] [address] [address] [address] Idania Blakely NORMAL> or = 60 mg/dl - LOW CARDIOVASCULAR RISK <40 mg/dl - HIGH CARDIOVASCULAR RISKAdena Fayette Medical [facility] on above:Performed By: #### LIPID, CMP #### [facility] [address] [address] [address] Idania TaiLDL CALC NORMALSEE BELOWNoSt. Charles HospitalComment on above:Result Comment: <100 mg/dl OPTIMAL 100 - 129 mg/dl NEAR OR ABOVE OPTIMAL 130 - 159 mg/dl BORDERLINE HIGH 160 - 189 mg/dl HIGH >190 mg/dl VERY HIGH Performed By: #### LIPID, CMP #### [facility] [address] [place] [address] Dr. Idania TaiTriglyceride [Mass/Vol]169 mg/dLCritically high<=150The [facility] on above:Performed By: #### LIPID, CMP #### [facility] [address] [place] [address] Dr. Idania TaiVLDL CALC33.8 mg/dLNoSt. Charles HospitalComsouthwest regional rehabilitation center on above: Performed By: #### LIPID, CMP #### [facility] [address] [place] [address] Dr. Idania PaizROALBUMIN, RAND URon 33-34-7412gJPH2.9 mg/LNormal<=30.0The [facility] on above:Performed By: #### MALBR #### [facility] [address] [place] [address] Dr. Idania TaiPROF 14(COMP METB)on 02-80-6717Mwmtbzv [Mass/Vol]3.7 g/dLNormal 3.4-5.0The [facility] on above:Performed By: #### LIPID, CMP #### [facility] [address] [place] [address] Dr. Idania TaiAlbumin/Globulin [Mass ratio]0.9 {ratio}NormalThe [facility] HospitalComment on above:Performed By: #### LIPID, CMP #### [facility] [address] [address] [address] Idania Woodson [Catalytic activity/Vol]73 U/TUpgtlj11-225Xnn [facility] HospitalComment on above:Performed By: #### LIPID, CMP #### [facility] [address] [address] [address] Idania Marie [Catalytic activity/Vol]68 U/LCritically bpcd11-86Vag [facility] HospitalComment on above:Performed By: #### LIPID, CMP #### [facility] [address] [address] [address] Idania Osman gap [Moles/Vol]10.2 mmol/LNormalThe [facility] Comment on above:Performed By: #### LIPID, CMP #### [facility] [address] [address] [address] Idania TaiAST [Catalytic activity/Vol]30 U/XKowetv23-43Lql [facility] HospitalComment on above:Performed By: #### LIPID, CMP #### [facility] [address] [address] [address] Idania TaiBilirubin [Mass/Vol]1.0 mg/dLNormal0.2-1.3The [facility] Comment on above:Performed By: #### LIPID, CMP #### [facility] [address] [address] [address] Idania TaiCalcium [Mass/Vol]8.5 mg/dLNormal8.5-10.1The [facility] Comment on above:Performed By: #### LIPID, CMP #### [facility] [address] [address] [address] Idania TaiChloride [Moles/Vol]101 mmol/UBkcnon76-685Ukg [facility] Comment on above:Performed By: #### LIPID, CMP #### [facility] [address] [address] [address] Idania TaiCO2 [Moles/Vol]31.6 mmol/LCritically high22.0-30.0The [facility] HospitalComment on above:Performed By: #### LIPID, CMP #### [facility] [address] [address] [address] Idania TaiCreatinine [Mass/Vol]0.67 mg/dLNormal0.66-1.25The [facility] Systemment on above:Performed By: #### LIPID, CMP #### [facility] [address] [address] [address] Idania CasperGFR-AF CITIZEN OF [place]>60Normal>=60The [facility] HospitalComment on above:Performed By: #### LIPID, CMP #### [facility] [address] [address] [address] Idania CasperGFR-NON AF CITIZEN OF [place]>60Normal>=60The [facility] Systemment on above:Performed By: #### LIPID, CMP #### [facility] [address] [address] [address] Idania TaiGlobulin (S) [Mass/Vol]4.0 g/dLNormalThe [facility] HospitalComment on above:Performed By: #### LIPID, CMP #### [facility] [address] [address] [address] Idania TaiGlucose [Mass/Vol]114 mg/dLCritically ckxz72-375Ilc [facility] Systemment on above:Performed By: #### LIPID, CMP #### [facility] [address] [address] [address] Idania TaiPotassium [Moles/Vol]4.8 mmol/LNormal3.4-5.0The [facility] Comment on above:Performed By: #### LIPID, CMP #### [facility] [address] [address] [address] Idania TaiProtein [Mass/Vol]7.7 g/dLNormal6.1-8.2The [facility] Comment on above:Performed By: #### LIPID, CMP #### [facility] [address] [address] [address] Idania TaiSodium [Moles/Vol]138 mmol/NFtsfsk133-570Aof [facility] Comment on above:Performed By: #### LIPID, CMP #### [facility] [address] [place], [place] [address] Dr. Idania TaiUrea nitrogen [Mass/Vol]12.0 mg/dLNormal7.0-18.0[facility] HospitalComment on above:Performed By: #### LIPID, CMP #### [facility] [address] [place], [place] [address] Dr. Idania TaiUrea nitrogen/Creatinine [Mass ratio]17.9 mg/mgNormalThe [facility] HospitalComment on above:Performed By: #### LIPID, CMP #### [facility] [address] [place], [place] [address] Dr. Idania Tai Vital Signs Date TimeVital SignValuePerforming WlfukitmhTmhyuntn10-40-6515 15:23-0400Body xiwgqw443.6 cmAnthony Rusher DPM Work Phone: [phone]20[facility] CareVyaylvliyp73-96-7581 15:23-0400Body mass index (BMI) [Ratio]39.22 kg/y0Yeelego Rusher DPM Work Phone: [phone]09-30-2025 15:23-0400Body vfmopg232.22 kgAnthony Rusher DPM Work Phone: [phone]09-18-2025 15:12-0400Body yjqqkj830.28 cmLisa Aichholz TENNIS PLAYER-C Work Phone: [facility]09-18-2025 15:12-0400 Body mass index (BMI) [Ratio]39.2 kg/m2Lisa Aichholz TENN[employer] PLAYER-C Work Phone: [facility]09-18-2025 15:12-0400 Body sopkzbqenne77.8 [degF]Luci Aichholz TENN[employer] PLAYER-C Work Phone: [facility]09-18-2025 15:12-0400 Body ktpsaa896.18 kgLisa Aichholz TENNIS PLAYER-C Work Phone: [phone] [place], [place] [address]9-18-2025 15:12-0400 Diastolic blood eejpinyw19 mm[Hg]Luci Briseidaholz TENNIS PLAYER-C Work Phone: [phone] [place], [place] [address]9-18-2025 15:12-0400 Heart rate69 /minLisa Aichholz TENNIS PLAYER-C Work Phone: [phone]09-18-2025 15:12-0400 Respiratory rate20 /minLisa Aichholz TENN[employer] PLAYER-C Work Phone: [phone]09-18-2025 15:12-0400 SaO2% (BldA) [Mass fraction]96 %Luci Aichholz TENN[employer] PLAYER-C Work Phone: [phone]09-18-2025 15:12-0400 Systolic blood ztzxkbbi850 mm[Hg]Luci Alexsandrahholz TENNIS PLAYER-C Work Phone: [phone])[address]08-07-2025 15:54-0400 Body mass index (BMI) [Ratio]40.32 kg/m2Lisa Aichholz TENNIS PLAYER Work Phone: [facility] CareJgssmmvcjx83-94-6709 15:54-0400Body temperature 97.81 [degF]Luci Alexsandrahholz TENNIS PLAYER Work Phone: [facility] CareUkoosdbvmg60-85-8390 15:54-0400Body ugkimj012.31 kgLisa Aichholz TENNIS PLAYER Work Phone: [facility] CareGynarsscxa31-21-3853 15:54-0400Diastolic blood swuwnefv40 mm[Hg]Luci Aichholz TENNIS PLAYER Work Phone: [facility] CareCdklssjsoo66-83-1441 15:54-0400Heart rate56 /min Luci Aichholz TENNIS PLAYER Work Phone: [facility] CareVqwacezfit30-71-8557 15:54-0400Respiratory rate20 /minLisa Aichholz TENNIS PLAYER Work Phone: [facility] CareQynfwpxtee90-11-7885 15:54-2988JtL1% (BldA) [Mass fraction]96 %Luci Rios TENNIS PLAYER Work Phone: [facility] CareTnzxyrwady11-23-9307 15:54-0400Systolic blood cmpmgqed109 mm[Hg]Luci Jollyz TENNIS PLAYER Work Phone: [facility] CareYajrllzwcu28-17-5133 15:43-0400Body mass index (BMI) [Ratio]39.67 kg/m2Lisa Briseidaholz TENNIS PLAYER Work Phone: [facility] CareJqieatcwbi71-80-2416 15:43-0400Body temperature 97.81 [degF]Luci Rikz TENNIS PLAYER Work Phone: [facility] CareQafucldtqb87-66-2150 15:43-0400Body izlluh449.49 kgLisa Jollyz TENNIS PLAYER Work Phone: [facility] CareAtrtlgnkek37-06-7948 15:43-0400Diastolic blood ojghkiid97 mm[Hg]Luci Rios TENNIS PLAYER Work Phone: [facility] CareNwagnggecc71-58-3359 15:43-0400Heart rate81 /min Luciemma Jollyz TENNIS PLAYER Work Phone: [facility] CareAutaiezrkb21-07-6985 15:43-0400Respiratory rate18 /minLisa Rios TENNIS PLAYER Work Phone: [facility] CareRuvmtjpjon46-70-2748 15:43-0711AwZ5% (BldA) [Mass fraction]96 %Luci Jollyz TENNIS PLAYER Work Phone: [facility] CareZvlczjhtuf61-23-4155 15:43-0400Systolic blood njineara843 mm[Hg]Luci Rikz TENNIS PLAYER Work Phone: [facility] CareZpvapvmfwo64-38-6462 15:51-0400Body mass index (BMI) [Ratio]38.8 kg/m2Ewasa Rikz TENNIS PLAYER Work Phone: [facility] CareJtzuzedviu95-41-2153 15:51-0400Body temperature 98.71 [degF]Luci Briseidaholz TENNIS PLAYER Work Phone: [facility] CareQxtakbrnjl33-23-8832 15:51-0400Body fecegf185.05 kgLisa Briseidaholz TENNIS PLAYER Work Phone: [facility] CareHzehormvqv10-90-4840 15:51-0400Diastolic blood pvzmannf46 mm[Hg]Luci Briseidaholz TENNIS PLAYER Work Phone: [facility] CareUipcteyeyg35-57-2633 15:51-0400Heart rate67 /min Luci Briseidaholz TENNIS PLAYER Work Phone: [facility] CareUbbvtdcgne00-41-9797 15:51-0400Respiratory rate20 /minLisa Alexsandrahholz TENNIS PLAYER Work Phone: [facility] CareIsqpautfwx20-08-6722 15:51-5303ZeL2% (BldA) [Mass fraction]95 %Luci Briseidaholz TENNIS PLAYER Work Phone: [facility] CareLmpkpplgpt46-27-1609 15:51-0400Systolic blood lylchuas004 mm[Hg]Luci Briseidaholz TENNIS PLAYER Work Phone: [facility] CareLzbgnledud19-38-1046 16:06-0400Body mass index (BMI) [Ratio]38.54 kg/m2Lisa Briseidaholz TENNIS PLAYER Work Phone: [facility] CareWlaxoilibm96-23-5995 16:06-0400Body temperature 98.1 [degF]Luci Briseidaholz TENNIS PLAYER Work Phone: [facility] CareNewddceows43-56-1472 16:06-0400Body gmmyex066.32 kgLisa Briseidaholz TENNIS PLAYER Work Phone: [facility] CareShydqgaaxe95-10-0970 16:06-0400Diastolic blood rkoedcxr84 mm[Hg]Luci Briseidaholz TENNIS PLAYER Work Phone: [facility] CareUnmngrooop82-67-2397 16:06-0400Heart rate66 /min Luci Alexsandrahholz TENNIS PLAYER Work Phone: [facility] CareBettmvftck73-91-9668 16:06-0400Respiratory rate18 /minLisa Rios TENNIS PLAYER Work Phone: [facility] CareBxfmsutlge89-35-1502 16:06-4914EsK4% (BldA) [Mass fraction]97 %Luci Rios TENNIS PLAYER Work Phone: [facility] CareKkegngawnl04-01-9480 16:06-0400Systolic blood idcdushz894 mm[Hg]Luci Rios TENNIS PLAYER Work Phone: [facility] CareLyhbfwcoeh62-40-3092 15:27-0400Body tjeeql940.6 cmAnthony Rusher DPM Work Phone: [facility] CareKdkmafgelu50-96-2574 15:27-0400Body mass index (BMI) [Ratio]39.09 kg/q5Zuakrnl Rusher DPM Work Phone: [facility] CareEdtckamrek38-80-5368 15:27-0400Body hdcwka834.86 kgAnthony Rusher DPM Work Phone: [facility] CareKpakruqjit10-68-3952 15:27-0500Body ygszhb037.6 Cristian Rios TENNIS PLAYER Work Phone: [facility] CareFegxfyzvly79-30-6240 15:27-0500Body mass index (BMI) [Ratio]39.29 kg/m2Luci Jollyz TENNIS PLAYER Work Phone: [facility] CarePayqyjhciv54-85-4641 15:27-0500Body temperature 97.81 [degF]Luci Rios TENNIS PLAYER Work Phone: [facility] CareMxbhdrcxqr59-34-4647 15:27-0500Body cumcbo013.41 kgLuci Goinsholz TENNIS PLAYER Work Phone: [facility] CareVrizckncic25-51-3006 15:27-0500Diastolic blood gifjgpgy600 mm[Hg]Luci Rios TENNIS PLAYER Work Phone: [facility] CareQzzmxfhoja41-19-7179 15:27-0500Heart rate76 /min Luci Rios TENNIS PLAYER Work Phone: [place] [address]Ymdajhvzcv43-43-8853 15:27-0500Respiratory rate20 /minLuci Rios TENNIS PLAYER Work Phone: [phone] CareTxkganmfbi88-80-8100 15:27-1913QeL9% (BldA) [Mass fraction]97 %Luci Rios TENNIS PLAYER Work Phone: [facility] CareWqqohjncey26-02-6106 15:27-0500Systolic blood ggrybios661 mm[Hg]Luci Rios TENNIS PLAYER Work Phone: [facility] CareCussaxdlrw01-83-2458 15:05-0500Body azcpvm291.6 cmBramanda Velasquez TENNIS PLAYER Work Phone: [facility] CareYzhngwvczb62-36-5288 15:05-0500Body mass index (BMI) [Ratio]38.41 kg/n9Hmdfflzf Velasquez TENNIS PLAYER Work Phone: [facility] CareAufobijfzq56-65-9744 15:05-0500Body ugjiqm989.96 kgBramanda Velasquez TENNIS PLAYER Work Phone: [facility] CareArjfnfslxf59-41-0443 15:05-0500Diastolic blood aexntvts41 mm[Hg]Marquis Velasquez TENNIS PLAYER Work Phone: [facility] CareTfgjapyulq44-53-3301 15:05-0500Heart rate67 /min Marquis Velasquez TENNIS PLAYER Work Phone: [facility] CareQhmidsmsow28-42-4639 15:05-0500Respiratory rate14 /minBramanda Velasquez TENNIS PLAYER Work Phone: [facility] CareLydxhjxepo62-17-3971 15:05-6493YkJ2% (BldA) [Mass fraction]98 %Marquis Velasquez TENNIS PLAYER Work Phone: [facility] CareUlvuyuceaf78-58-3190 15:05-0500Systolic blood nnsyyjkh367 mm[Hg]Marquis Velasquez TENNIS PLAYER Work Phone: [phone] [place], [place] [address]Juawxamudp56-31-4372 15:32-0400Body zjqgop488.6 cmAntgeorgiana Boateng DPM Work Phone: [facility] CareFlpqomrdat46-47-0484 15:32-0400Body mass index (BMI) [Ratio]39.22 kg/p4Baqpdgz Rusher DPM Work Phone: [facility]OO[facility] CenterTiscgpixff05-98-6970 15:32-0400Body awpnkw333.22 kgAnthje Rusher DPM Work Phone: [facility] CareZncpcaxewm25-84-1498 15:57-0400Body kidnde952.6 cmBrhortenciaany Velasquez TENNIS PLAYER Work Phone: [facility] CareJzsorqwemy13-14-1480 15:57-0400Body mass index (BMI) [Ratio]39.22 kg/s0Mamyjhww Velasquez TENNIS PLAYER Work Phone: [facility] CareKshrtkgwvz27-43-8015 15:57-0400Body temperature 98.29 [degF]Marquis Velasquez TENNIS PLAYER Work Phone: [facility] CarePysljlirot17-92-8078 15:57-0400Body dihhoj740.22 kgBrittany Velasquez TENNIS PLAYER Work Phone: [facility] CareNiqqmfipia56-83-2453 15:57-0400Diastolic blood okcyvczn21 mm[Hg]Marquis Velasquez TENNIS PLAYER Work Phone: [facility] CareHhjolvgdmq19-15-6720 15:57-0400Heart rate61 /min Marquis Velasquez TENNIS PLAYER Work Phone: [facility] CareComment on above:98% M013-21-5231 15:57-0400Systolic blood aubeamsk991 mm[Hg]Marquis Velasquez TENNIS PLAYER Work Phone: [facility] CareArklnkmjgu40-94-5481 13:15-0400Diastolic blood ebndrcrs00 mm[Hg]MD Shaikh Baker Work Phone: [facility]04-17-2023 13:15-0400 Heart rate54 /minMD Shaikh Baker Work Phone: [phone] [place], [place] [address]4-17-2023 13:15-0400 Respiratory rate16 /minMD Shaikh Baker Work Phone: [phone] [place], [place] 960[address]4-17-2023 13:15-0400 SaO2% (BldA) [Mass fraction]97 %MD Shaikh Baker Work Phone: [phone] [place], [place] [address]4-17-2023 13:15-0400 Systolic blood firozsll770 mm[Hg]MD Shaikh Baker Work Phone: [phone]04-17-2023 12:25-0400 Body cnmplrvjqaa14.5 [degF]MD Shaikh Baker Work Phone: [phone]04-17-2023 11:55-0400 Inhaled oxygen flow rate8 L/minMD Shaikh Baker Work Phone: [phone] [place], [place] [address]4-17-2023 10:54-0400 Body .1 cmMD Shaikh Baker Work Phone: [phone]04-17-2023 10:54-0400 Body mass index (BMI) [Ratio]38.6 kg/m2MD Shaikh Baker Work Phone: [phone] [place], [place] [address]4-17-2023 10:54-0400 Body bqixmg636.4 kgMD Shaikh Samuel Work Phone: [facility]07-29-2022 10:00-0400 Diastolic blood hkdputxy30 mm[Hg]MD Sav Andrews Work Phone: [facility]07-29-2022 10:00-0400 Heart rate54 /minMD Sav Andrews Work Phone: [facility]07-29-2022 10:00-0400 Respiratory rate18 /minMD Sav Andrews Work Phone: 1(244)967-[address] [place], [place] 3788707-29-2022 10:00-0400 SaO2% (BldA) [Mass fraction]100 %MD Sav Andrews Work Phone: 1(911)328-[address] [place], [place] 3788707-29-2022 10:00-0400 Systolic blood mm[Hg]MD Sav Andrews Work Phone: [phone]07-29-2022 07:37-0400 Body uxeimb547.18 cm aSv Andrews Work Phone: [phone] [place], [place] 1362807-29-2022 07:37-0400 Body .9 [degF]MD Sav Andrews Work Phone: [phone] [place], [place] 3010407-29-2022 07:37-0400 Body doqdia16.64 kgMD Ang Harinijoey Work Phone: [phone] [place] [address] Encounters Encounter DateEncounter TypeCare ProviderFacilityStart: 02-23-2025 End: 46-19-4039ircrunruegPBWWCLI S RUSHERNot AvailableStart: 02-23-2025 End: 69-98-4836Fudivjh encounter procedureAnthje Boateng DPM Work Phone: noB[facility] PodiatryComment on above:Onychodystrophy (Primary Dx); Onychomycosis; Type 2 diabetes mellitus with diabetic polyneuropathy, with long-term current use of insulin (HCC)Start: 02-23-2025 End: 01-15-5413Ndcohg flowsheetAnthony S Rusher DPM Work Phone: no[facility] PodiatryStart: 02-23-2025 End: 94-44-3627Dyruyc flowsheetAnthony S Rusher DPM Work Phone: noB[facility] PodiatryStart: 02-11-2025 End: 10-34-3558zokfxgcasbQxzrGrace DOLAN Work Phone: [facility] Work Phone: Start: 02-11-2025 End: 72-85-6339Zxnqiyo encounter procedureLuci Rios TENNIS PLAYER-C-[facility] Work Phone: Start: 12-31-2024 End: 87-45-7860Qwgruk outpatient visit 25 minutesEwa Blanca TENNIS PLAYER Work Phone: noms CWM FMComment on above:Chronic pain of right ankle (Primary Dx); Type 2 diabetes mellitus with diabetic polyneuropathy, with long-term current use of insulin (HCC); Primary hypertension ; Type 2 diabetes mellitus without complication, with long-term current use of insulin (HCC); Morbid (severe) obesity due to excess calories (CMS-HCC); Severe persistent asthma without complication (HCC); Edema of both lower extremitiesStart: 12-31-2024 End: 66-15-7291sjolruweslEZMS AICHHOLZNot AvailableStart: 12-31-2024 End: 87-25-0627Bqhsqb flowsheetEwasa Uptontripmarika TENNIS PLAYER Work Phone: noms CWM FMStart: 12-31-2024 End: 80-01-3983Zswczp flowsTiagosa Uptontripmarika TENNIS PLAYER Work Phone: noms CWM FMStart: 12-31-2024 End: 65-53-9765Lyxhjynuj Result EncounterEwa Blanca TENNIS PLAYER Work Phone: noms External Department UnsolicitedStart: 12-09-2024 End: 67-02-2369VmkobdPlas Aichholz TENNIS PLAYER Work Phone: noms CWM FMComment on above:Type 2 diabetes mellitus without complication, with long-term current use of insulin (HCC) (PrimaryDx) Start: 11-30-2024 End: 88-91-7480Nsmtzaxvg Result EncounterGeneric External Data ProviderNOMS External Department UnsolicitedStart: 11-30-2024 End: 57-31-9774Qphevjknl Result EncounterGeneric External Data ProviderNOMS External Department UnsolicitedStart: 11-24-2024 End: 17-97-6304HxtcgyLoeq Aichholz TENNIS [employer]ER Work Phone: [facility] FMComment on above:Type 2 diabetes mellitus without complication, with long-term current use of insulin (HCC) (PrimaryDx) Start: 11-19-2024 End: 41-60-6041Nioggr outpatient visit 25 minutesLisa Briseidaholz TENNIS PLAYER Work Phone: [facility] FMComment on above:Type 2 diabetes mellitus with diabetic polyneuropathy, with long-term current use of insulin (HCC) ( Primary Dx); Primary hypertension ; Morbid (severe) obesity due to excess calories ([facility]-HCC); Type 2 diabetes mellitus without complication, with long-term current use of insulin (HCC); Resistant hypertension ; Hyperlipidemia, unspecified hyperlipidemia type ; Type 2 diabetes mellitus without complications (HCC); Severe persistent asthma without complication (HCC); Gastroesophageal reflux disease without esophagitisStart: 11-19-2024 End: 13-45-5319slvrcfxyasLKYT AICHHOLZNot AvailableStart: 11-19-2024 End: 60-96-6938Ggrska flowsheetLisa Alexsandrahholz TENN[employer] PLAYER Work Phone: [facility] FMStart: 11-19-2024 End: 43-93-4278Riixwa flowsheetLisa Aichholz TENNIS PLAYER Work Phone: [facility] FMStart: 10-24-2024 End: 95-55-8105Xvdeqnxps Result EncounterLisa Alexsandrahholz TENNIS PLAYER Work Phone: noms External Department UnsolicitedStart: 10-24-2024 End: 13-96-4667Ivshimshw Result EncounterLisa Alexsandrahholz TENNIS PLAYER Work Phone: noms External Department UnsolicitedStart: 10-08-2024 End: 52-74-6741Zrysvm outpatient visit 25 minutesLisa Alexsandrahholz TENNIS PLAYER Work Phone: noms CW FMComment on above:Type 2 diabetes mellitus without complication, with long-term current use of insulin (Primary Dx); Type 2 diabetes mellitus with diabetic polyneuropathy, with long-term current use of insulin (CMS/HCC); Primary hypertension (CMS/HCC); Edema of both lower extremities; 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); Morbid (severe) obesity due to excess calories (CMS/HCC); Severe persistent asthma without complication ([facility]/HCC); Elevated serum creatinineStart: 10-08-2024 End: 93-17-1282xhypihrlvjBLWA AICHHOLZNot AvailableStart: 10-08-2024 End: 24-80-7853Ncwpjj flowsheetLisa Aichholz TENNIS PLAYER Work Phone: noms CW FMStart: 10-08-2024 End: 06-79-3482Naccbq flowsheetLisa Aichholz TENNIS PLAYER Work Phone: noms CW FMStart: 09-17-2024 End: 66-50-5362emvhnxztaoYWUC AICHHOLZNot AvailableStart: 09-17-2024 End: 69-95-0384Qslabf outpatient visit 25 minutesLisa Aichholz TENNIS PLAYER Work Phone: noms [facility] FMComment on above:Elevated serum creatinine (Primary Dx); Primary hypertension (CMS/HCC); Type 2 diabetes mellitus without complication, with long-term current use of insulinStart: 09-17-2024 End: 43-60-9021Frzmmk flowsheetLisa Aichholz TENNIS PLAYER Work Phone: noms [facility] FMStart: 09-17-2024 End: 94-38-2152Vtxyxo flowsheetLisa Aichholz TENNIS PLAYER Work Phone: noms [facility] FMStart: 09-09-2024 End: 92-92-5318Cfrxgmxmp Result EncounterLisa Aichholz TENNIS PLAYER Work Phone: noms External Department UnsolicitedStart: 09-09-2024 End: 48-56-8719Hnyrbfifd Result EncounterLisa Aichholz TENNIS PLAYER Work Phone: noms External Department UnsolicitedStart: 08-31-2024 End: 72-75-9249Rhibfo OnlyLisa Aichholz TENNIS PLAYER Work Phone: noms CWM FMComment on above:Elevated serum creatinine (Primary Dx)Start: 08-29-2024 End: 62-69-1309Izjbvzesy Result EncounterLisa Aichholz TENNIS PLAYER Work Phone: noms External Department UnsolicitedStart: 08-29-2024 End: 45-88-5119Hcplqgeci Result EncounterLisa Aichholz TENNIS PLAYER Work Phone: noms External Department UnsolicitedStart: 08-24-2024 End: 06-35-4672Ekuapm outpatient visit 15 minutesAnthony S Rusher DPM Work Phone: noms PODIATRYComment on above:Onychodystrophy (Primary Dx); Onychomycosis; Type 2 diabetes mellitus with diabetic polyneuropathy, with long-term current use of insulin ([facility])Start: 08-24-2024 End: 36-52-1790kxxlmkpytkCQBMATW S RUSHERNot AvailableStart: 08-24-2024 End: 29-32-2946Pkgzua flowsheetAnthony S Rusher DPM Work Phone: noms PODIATRYStart: 08-24-2024 End: 60-33-3444Epxsks flowsheetAnthony S Rusher DPM Work Phone: noms FH PODIATRYStart: 08-19-2024 End: 92-61-5167Qzaidk OnlyLisa Aichholz TENNIS PLAYER Work Phone: noms CWM FMComment on above:Elevated serum creatinine (Primary Dx)Start: 08-18-2024 End: 40-89-1910haqgxhzfdcOLZD AICHHOLZNot AvailableStart: 07-29-2024 End: 23-09-3254Llccap outpatient visit 25 minutesLisa Aichholz TENNIS PLAYER Work Phone: noms CWM FMComment on above:Primary hypertension (CMS/HCC) (Primary Dx); Type 2 diabetes mellitus without complications (CMS/HCC); penitentiary (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 (CMS/HCC); Morbid (severe) obesity due to excess calories (CMS/HCC); Gastro-esophageal reflux disease without esophagitis; Body mass index (BMI) 38.0-38.9, adult; 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); Type 2 diabetes mellitus with diabetic polyneuropathy, with long-term current use of insulin (CMS/HCC); Severe persistent asthma without complication (CMS/HCC); Mixed hyperlipidemia (CMS/HCC)Start: 07-29-2024 End: 38-33-5076qbokumrptuAXET AICHHOLZNot AvailableStart: 07-29-2024 End: 63-73-0232Qtchgq flowsheetLisa Aichholz TENNIS PLAYER Work Phone: NOMS CWM FMStart: 07-29-2024 End: 18-48-2151Ybiknm flowsheetLisa Aichholz TENNIS PLAYER Work Phone: NOMS CWM FMStart: 07-18-2024 End: 34-22-1537Tcejuiwdt Result EncounterBrittany Velasquez TENNIS PLAYER Work Phone: noms External Department UnsolicitedStart: 07-18-2024 End: 39-49-8894Wqraduxuk Result EncounterBrittany Velasquez TENNIS PLAYER Work Phone: NOQB External Department UnsolicitedStart: 06-13-2024 End: 01-32-6566JbhfxyFiycaoda Velasquez TENNIS PLAYER Work Phone: NOBG CWM FMComment on above:Severe persistent asthma without complication (CMS/HCC)Start: 05-06-2024 End: 79-45-3154FhkornUskaVashti HYDE CWM FMComment on above:Type 2 diabetes mellitus with diabetic polyneuropathy, with long-term current use of insulin ([facility]/HCC) (Primary Dx)Start: 04-27-2024 End: 29-64-6418Xkaxjl outpatient visit 15 minutesBramanda Velasquez TENNIS PLAYER Work Phone: noms CWM FMComment on above:Type 2 diabetes mellitus with diabetic polyneuropathy, with long-term current use of insulin ([facility]) (Primary Dx); Resistant hypertension ([facility]); Gastroesophageal reflux disease without esophagitisStart: 04-27-2024 End: 78-72-7541idjbvfsxijXBRPPKWL FITZHANETRICKNot AvailableStart: 04-27-2024 End: 29-61-8722Qphckv flowsheetBrittany Velasquez TENNIS PLAYER Work Phone: noms CWM FMStart: 04-27-2024 End: 39-98-6607Euhjya flowsheetMarianelaany Velasquez TENNIS PLAYER Work Phone: noms CWM FMStart: 04-17-2024 End: 75-83-8366Proybaxca Result EncounterGeneric External Data ProviderNOMS External Department UnsolicitedStart: 04-17-2024 End: 87-11-4737Keikvvzwu Result EncounterGeneric External Data ProviderNOMS External Department UnsolicitedStart: 03-18-2024 End: 40-96-4178HigblvQdsvauem Velasquez TENNIS PLAYER Work Phone: noms CWM FMComment on above:Type 2 diabetes mellitus without complication, with long-term current use of insulin ([facility])Start: 02-24-2024 End: 63-95-1817Rpyzgn outpatient new 30 minutesAnthony S Kilo DPM Work Phone: noms PODIATRYComment on above:Onychodystrophy (Primary Dx); Type 2 diabetes mellitus with diabetic polyneuropathy, with long-term current use of insulin ([facility]); OnychomycosisStart: 02-24-2024 End: 27-20-3503Agiggo Gaby S Kilo DPM Work Phone: noms FH PODIATRYStart: 02-24-2024 End: 81-17-3658Jtlzet flowsheetAnthony S Shoaibher DPM Work Phone: noms PODIATRYStart: 01-25-2024 End: 43-67-7099Hdzhghlns Result EncounterSchasidy Baker MD Work Phone: noMS External Department UnsolicitedStart: 01-25-2024 End: 18-33-2606Btjyufbnb Result EncounterSchasidy Baker MD Work Phone: noms External Department UnsolicitedStart: 01-22-2024 End: 48-44-6401Pehldy outpatient visit 25 minutesBramanda Velasquez TENNIS PLAYER Work Phone: NOMS [facility] FMComment on above:Type 2 diabetes mellitus with diabetic polyneuropathy, with long-term current use of insulin (CMS/HCC) (Primary Dx); Severe persistent asthma without complication (CMS/HCC); Resistant hypertension (CMS/[facility]); Gastroesophageal reflux disease without esophagitis; Mixed hyperlipidemia (CMS/[facility]); Type 2 diabetes mellitus without complication, with long-term current use of insulin (CMS/[facility]); Primary hypertension (CMS/[facility]); Hyperlipidemia, unspecified hyperlipidemia type (CMS/HCC)Start: 01-22-2024 End: 05-49-6719Ipymkj flowsheetMarquis Vailtrick TENNIS PLAYER Work Phone: NOMS [facility] FMStart: 01-22-2024 End: 85-34-4903Cpnyiu flowsheetMarianelawesly Velasquez TENNIS PLAYER Work Phone: noMS [facility] FMStart: 01-17-2024 End: 21-42-0700Izykqimgo Result EncounterGeneric External Data ProviderNOMS External Department UnsolicitedStart: 01-17-2024 End: 93-80-4241Rmkqnqcvm Result EncounterGeneric External Data ProviderNOMS External Department UnsolicitedStart: 10-23-2023 End: 09-49-2308Kxnfwwonf Result EncounterGeneric External Data ProviderNOMS External Department UnsolicitedStart: 10-23-2023 End: 67-22-8736Xgsctaoml Result EncounterGeneric External Data ProviderNOMS External Department UnsolicitedStart: 09-11-2023 End: 57-51-2435Czrfkmizc Result EncounterGeneric External Data ProviderNOMS External Department UnsolicitedStart: 09-11-2023 End: 67-43-4626Xpdypdcdp Result EncounterGeneric External Data ProviderNOMS External Department UnsolicitedStart: 08-19-2023 End: 27-52-9523Fuvosiulg Result EncounterGeneric External Data ProviderNOMS External Department UnsolicitedStart: 08-19-2023 End: 64-81-8862Wcugopdhh Result EncounterGeneric External Data ProviderNOMS External Department UnsolicitedStart: 07-17-2023 End: 19-31-6968Byxvnkdjs Result EncounterGeneric External Data ProviderNOMS External Department UnsolicitedStart: 07-17-2023 End: 81-57-3115Ezunbjnss Result EncounterGeneric External Data ProviderNOMS External Department UnsolicitedStart: 06-26-2023 End: 53-79-5896Lcicmbehc Result EncounterGeneric External Data ProviderNOMS External Department UnsolicitedStart: 06-26-2023 End: 65-92-9449Pmzmgmwgw Result EncounterGeneric External Data ProviderNOMS External Department UnsolicitedStart: 06-25-2023 End: 25-08-1105Viarvsfbp Result EncounterGeneric External Data ProviderNOMS External Department UnsolicitedStart: 06-25-2023 End: 58-83-7804Ipoqvdogz Result EncounterGeneric External Data ProviderNOMS External Department UnsolicitedStart: 06-06-2023 End: 37-72-8477Kfzrcujyf Result EncounterGeneric External Data ProviderNOMS External Department UnsolicitedStart: 06-06-2023 End: 88-34-6726Urdrzlamx Result EncounterGeneric External Data ProviderNOMS External Department UnsolicitedStart: 05-25-2023 End: 47-90-6160Mzpbeariy Result EncounterGeneric External Data ProviderNOMS External Department UnsolicitedStart: 05-25-2023 End: 00-63-7213Cyrfhibeu Result EncounterGeneric External Data ProviderNOMS External Department UnsolicitedStart: 09-10-2022 End: 28-82-6209vmvnqsosplYonz LaffayFacility:[facility] Start: 09-10-2022 End: 48-63-2972Izdybknvl to same day surgery centerMD Shaikh Baker Work Phone: [facility] CampusStart: 09-10-2022 End: 60-05-2797umbdlohslsIE Shaikh Fawwad Work Phone: [facility] Work Phone: Start: 08-30-2022 End: 79-62-0693iytysqfvfsPubn LaffayFacility:[facility] Start: 08-30-2022 End: 45-90-5401rxuudrprjlKB Shaikh Fawwad Work Phone: [facility] Work Phone: Start: 08-30-2022 End: 05-88-5776Tpgtgvt encounter procedureMD Shaikh Samuel Work Phone: [facility]Pre[facility]Surgical [facility] Work Phone: Start: 07-07-2022 End: 66-03-9337pvrsjoitakBDBHHQ H FAWWADFacility:L5Bswvh: 03-13-2022 End: 21-09-6317qrjztnzwqxCHBQSO H FAWWADFacility:F8Wwxel: 12-22-2021 End: 02-14-9692srvmhnisfdXyapcyl J DittyFacility:[facility]art: 12-22-2021 End: 70-24-4978Smhvaisgq to same day surgery centerMD Sav Andrews Work Phone: [facility]Dig[facility] HealthStart: 12-20-2021 End: 11-55-6378fplghdhvdzOeaewff J DittyFacility:[facility] Centertart: 12-20-2021 End: 01-69-4441Iyuqdvc encounter procedureMD Sav Andrews Work Phone: [facility] Start: 11-14-2021 End: 35-56-9383tellzvpyksLSRBI D HIGHLANDERFacility:S6Aamer: 10-25-2021 End: 99-91-2930oekmpukaddNQTXJ D HIGHLANDERFacility:K4Mpjxk: 09-11-2021 End: 91-41-9803gorpkerqxgSHDPCV H FAWWADFacility:X0Ctvff: 09-05-2021 End: 78-43-0123vltnuzxpbyXADVMVMG CULLENFacility:A6Axdko: 08-03-2021 End: 56-08-2878mzhieavlqnFB ASA HAYFacility:H1 Procedures DateProcedureProcedure DetailPerforming ClinicianStart: 54-65-0414FE ANKLE RT MIN 3VLisa Blanca TENNIS PLAYER Work Phone: Start: 02-81-5123AJ ANKLE RT MIN 3VGeneric External Data ProviderStart: 32-48-3892Dwvioflwej glycosylated r1kAbqq Briseidaholbraulio TENNIS PLAYER Work Phone: Start: 63-17-3008QV RENAL BILisa Blanac TENNIS PLAYER Work Phone: Start: 72-84-4504HDI BASIC METABOLIC PANELLisa Alexsandrahholz TENNIS PLAYER Work Phone: Start: 65-74-5385BDD BASIC METABOLIC PANELLisa Aichholz TENNIS PLAYER Work Phone: Start: 24-37-6091RWH BASIC METABOLIC PANELLisa Aicholz TENNIS PLAYER Work Phone: Start: 09-06-9764EwtbujlvkftBmuj Aicholz TENNIS PLAYER Work Phone: Start: 51-05-6212WGF CBC WITH AUTO DIFFBrittany Velasquez TENNIS PLAYER Work Phone: Start: 05-99-8772JM ANKLE RT MIN 3VGeneric External Data ProviderStart: 48-62-0714ABY LIPID PROFILE (FASTING)Shaikh Samuel GUPTA Work Phone: Start: 45-56-2529OPR CMP (CMP) (FOR REMOTE [facility] USE) Shaikh Samuel GUPTA Work Phone: Start: 00-96-2396YZ ANKLE RT MIN 3VGeneric External Data ProviderStart: 81-89-7480TJ ANKLE RT MIN 3VGeneric External Data Provider Start: 14-08-3908XH ANKLE RT MIN 3VGeneric External Data ProviderStart: 88-15-7140UE ANKLE RT WO CONGeneric External Data ProviderStart: 30-01-0890PQ ANKLE RT MIN 3VGeneric External Data ProviderStart: 57-41-4428NK FOOT RT MIN 3V Generic External Data ProviderStart: 10-02-1288RU ANKLE RT MIN 3VGeneric External Data ProviderStart: 68-55-5164GK ANKLE RT WO CONGeneric External Data ProviderStart: 12-58-2435AZ ANKLE RT MIN 3VGeneric External Data ProviderStart: 81-23-9512IY FOOT RT MIN 3VGeneric External Data ProviderStart: 35-93-4505FK ANKLE LT MIN 3VGeneric External Data ProviderStart: 31-14-9650NT ANKLE RT MIN 3V Generic External Data ProviderStart: 67-99-9984CdtsbiwtuibckthgJO Shaikh Samuel Work Phone: Start: 76-26-4613CimppuuhqwoQfmjltsr Velasquez TENNIS PLAYER Work Phone: Start: 83-08-6539Qfxwyzbww colonoscopyMD Sav Andrews Work Phone: SARS Antigen (LFIA)MD Sav Andrews Work Phone: Plan of Treatment DateCare ActivityDetailAuthorStart: 07-25-1815Krhhtqhoi for malignant neoplasm of colonNOMS HealthcareStart: 77-67-6584Ogfrbwbxe for malignant neoplasm of colonNOMS HealthcareStart: 82-50-0441Prrlhnyr screeningDiabetes: Retinopathy ScreeningNOMS HealthcareStart: 08-23-2025 End: 01-43-4497Ovkyrur encounter ooimtnuev85/30/2026 3:15 PM EDT Procedure Visit [facility] [place] [facility] [address] [place] [address] Abisai Boateng, DPM [address] [place], [place] [id number] [facility] [place] PodiatryStart: 05-75-0101Bxdoy screening for proteinDiabetes: Urine Protein ScreeningMCKAY-[facility] HealthcareStart: 02-23-2025 End: 97-10-1009Qmihefi encounter procedureNOSAINT JO[facility]PH [facility] PODIATRYStart: 02-19-2025 Hemoglobin A1c measurementDiabetes: Hemoglobin F7XZEZE HealthcareStart: 02-11-2025 End: 22-56-6841Tvoeecj encounter qltpbwcom93/18/2025 3:00 PM EDT Office Visit [facility] [address] [place] [address] Luci Rios, MARIA FERNANDA [address] [place] [address] [facility] FMStart: 50-54-2254Xrcrwlwme vaccinationInfluenza Vaccine (#1)[facility] CareStart: 12-31-2024 End: 78-86-7052Dwmcvzm encounter procedureNOHARMON MEM[facility]IAL [facility] FMComment on above:Type 2 diabetes mellitus with diabetic polyneuropathy, with long-term current use of insulin (HCC) (Primary Dx); Primary hypertension ; Type 2 diabetes mellitus without complication, with long-term current use of insulin (HCC); Morbid (severe) obesity due to excess calories ([facility]-HCC); Severe persistent asthma without complication (HCC); Edema of both lower extremitiesStart: 12-31-2024 End: 10-30-6670Iubrn metabolic 1998 panel - Serum or PlasmaBasic metabolic panel Lab Routine Primary hypertension Type 2 diabetes mellitus without complication, with long-term current use of insulin (HCC) Edema of both lower extremities Expected: 12/31/2024 (Approximate), Expires: 12/31/2025[facility] Work Phone: Comment on above:Expected: 12/31/2024 (Approximate), Expires: 12/31/2025Start: 12-31-2024 End: 55-51-6938JK Ankle - right 3 ViewsXR ankle 3+ views right Imaging Routine Chronic pain of right ankle Expected: 12/31/2024, Expires: 12/31/2025[facility] HealthcareComment on above:Expected: 12/31/2024, Expires: 12/31/2025Start: 11-19-2024 End: 55-81-6273Dbqucje encounter procedureNOHARMON MEMORIAL [facility] FMComment on above:Primary hypertension (Primary Dx); Morbid (severe) obesity due to excess calories (CMS-HCC); Type 2 diabetes mellitus without complication, with long-term current use of insulin (HCC)Start: 86-03-6199Knghejynej A1c measurementDiabetes: Hemoglobin A1C [facility] HealthcareStart: 10-08-2024 End: 10-16-1473Qiqgkji encounter procedureNOHARMON MEMORIAL [facility] FMComment on above:Type 2 diabetes mellitus with diabetic polyneuropathy, with long-term current use of insulin (CMS/HCC) (Primary Dx); Primary hypertension (CMS/HCC); Edema of both lower extremities; penitentiary (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 (CMS/HCC); Morbid (severe) obesity due to excess calories (CMS/HCC); Type 2 diabetes mellitus without complication, with long-term current use of insulin; Severe persistent asthma without complication (CMS/HCC)Start: 09-17-2024 End: 02-47-1924Hmisl metabolic 1998 panel - Serum or PlasmaBasic metabolic panel Lab Routine Primary hypertension (CMS/HCC) Type 2 diabetes mellitus without co mplication, with long-term current use of insulin Expected: 09/17/2024 (Approximate), Expires: 09/17/2025[facility] Healthcare Work Phone: Comment on above:Expected: 09/17/2024 (Approximate), Expires: 09/17/2025Start: 09-17-2024 End: 57-65-7024QZ KidneyUS renal complete Imaging Routine Elevated serum creatinine Primary hypertension (CMS/HCC) Type 2 diabetes mellitus without complication, with long-term current use of insulin Expected: 09/17/2024, Ex jose alejandro: 09/17/2025[facility] HealthcareComment on above:Expected: 09/17/2024, Expires: 09/17/2025Start: 09-14-2024 End: 42-42-8995Gxikm metabolic 1998 panel - Serum or PlasmaBasic metabolic panel Lab Routine Elevated serum creatinine Expected: 09/14/2024 (Approximate), Expi res: 08/31/2025[facility] Healthcare Work Phone: Comment on above:Expected: 09/14/2024 (Approximate), Expires: 08/31/2025Start: 16-65-4989Aodobwec screeningDiabetes: Retinopathy ScreeningNOAK HealthcareStart: 08-26-2024 End: 39-70-6322Vcdbs metabolic 1998 panel - Serum or PlasmaBasic metabolic panel Lab Routine Elevated serum creatinine Expected: 08/26/2024 (Approximate), Expi res: 08/19/2025[facility] Healthcare Work Phone: Comment on above:Expected: 08/26/2024 (Approximate), Expires: 08/19/2025Start: 08-24-2024 End: 46-23-4602Mzmseer encounter procedureNOSAINT JOSEPH [facility]PITAL [facility] PODIATRYComment on above: ArrivedStart: 08-18-2024 End: 03-01-8222Yuvnycg encounter xekordkat99/25/2025 3:00 PM EDT Office Visit [facility] [address] [place] [address] Luci Rios NP [address] [place] [address] [facility]ios PETTY FMStart: 13-53-8584Utcmk screening for protein Diabetes: Urine Protein ScreeningMCKAY-[facility]E [facility] HealthcareStart: 07-29-2024 End: 32-02-9753Cdznfkd encounter procedureNOMS 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 ([facility]); Morbid (severe) obesity due to excess calories ([facility]); Gastro-esophageal reflux disease without esophagitis; Body mass index (BMI) 38.0-38.9, adult; 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); Severe persistent asthma without complication (CMS/HCC); Primary hypertension (CMS/HCC); Mixed hyperlipidemia (CMS/HCC)Start: 07-28-2024 End: 79-52-7159Mznzlvx encounter qthpxassd97/04/2025 4:00 PM EST Office Visit [facility] [address] [place] [address] Marquis Velasquez, MARIA FERNANDA [address] [place] [address] [facility] FMStart: 07-26-2024 End: 03-69-8701DFW W Auto Differential panel - BloodCBC and differential Lab Routine Type 2 diabetes mellitus with diabetic polyneuropathy, with long-term current use of insulin (CMS/HCC) Resistant hypertension (CMS/HCC) Expected: 07/26/2024 (Approximate), Expires: 04/27/2025NO[facility] HealthcareComment on above: Expected: 07/26/2024 (Approximate), Expires: 04/27/2025Start: 07-26-2024 End: 20-14-1883Tszgnnlfbkpzq metabolic 2000 panel - Serum or PlasmaComprehensive metabolic panel Lab Routine Type 2 diabetes mellitus with diabetic polyneuropathy, with long-term current use of insulin (CMS/HCC) Resistant hypertension (CMS/HCC) Expected: 07/26/2024 (Approximate), Expires: 04/27/2025 NOM HealthcareComment on above:Expected: 07/26/2024 (Approximate), Expires: 04/27/2025Start: 07-26-2024 End: 47-88-0184Cfhhrgcsid A1c/Hemoglobin.total in BloodHemoglobin A1c Lab Routine Type 2 diabetes mellitus with diabetic polyneuropathy, with long-term current use of insulin (CMS/HCC) Resistant hypertension (CMS/HCC) Expected: 07/26/2024 (Approximate), Expires: 04/27/2025[facility] HealthcareComment on above: Expected: 07/26/2024 (Approximate), Expires: 04/27/2025Start: 07-26-2024 End: 85-52-7840Rddtzbmxokki/Creatinine panel in random UrineMicroalbumin / creatinine urine ratio Lab Routine Type 2 diabetes mellitus with diabetic polyneuropathy, with long-term current use of insulin (CMS/[facility]) Resistant hypertension (CMS/HCC) Expected: 07/26/2024 (Approximate), Expires: 04/27/2025 [facility] Work Phone: Comment on above:Expected: 07/26/2024 (Approximate), Expires: 04/27/2025Start: 04-27-2024 End: 10-47-4937Mqrdcrv encounter procedureNOMS CWM FMComment on above:Arrived Start: 04-22-2024 End: 87-51-1147Poanhvp encounter tpvrxvcze80/27/2024 3:30 PM EST Office [facility] [address] [place] [address] Marquis Velasquez, TENNIS PLAYER [address] [place] [address] [facility] FMStart: 02-24-2024 End: 20-23-3292Xqhrwoq encounter gnciyrllt91/30/2024 3:30 PM EDT Office Visit [facility] [address] [place] [address] Abisai Boateng, DPM [address] [place], [place] [phone] Type 2 diabetes mellitus with diabetic polyneuropathy, with long-term current use of insulin ([facility])NOMS PODIATRYComment on above:Type 2 diabetes mellitus with diabetic polyneuropathy, with long-term current use of insulin (CMS/HCC)Start: 42-99-1568Fwmnrcvcp vaccinationInfluenza Vaccine (#1)NOM HealthcareStart: 01-22-2024 End: 57-80-5289Bkgtffl encounter vejyibcrs35/28/2024 4:00 PM EDT Office Visit [facility] [address] [place] [address] Marquis Velasquez, MARIA FERNANDA [address] [place] [address] Type 2 diabetes mellitus with diabetic polyneuropathy, with long-term current use of insulin (CMS/HCC) (Primary Dx); Severe persistent asthma without complication (CMS/HCC); Resistant hypertension (CMS/HCC); Gastroesophageal reflux disease without esophagitis; Mixed hyperlipidemia (CMS/HCC)[facility] FMComment on above:Type 2 diabetes mellitus with diabetic polyneuropathy, with long-term current use of insulin (CMS/HCC) (Primary Dx); Severe persistent asthma without complication (CMS/HCC); Resistant hypertension (CMS/HCC); Gastroesophageal reflux disease without esophagitis; Mixed hyperlipidemia ([facility]/HCC)Start: 71-22-3832Ettgrgkcbk A1c measurement Diabetes: Hemoglobin W6LKSMBSSM Health CareStart: 09-10-2022 End: 87-18-1731HenndekrbHighland District Hospital CenterStart: 57-82-7145LbttjodubHighland District Hospital Ctr Work Phone: Start: 06-84-9823Hphpgmbjm for malignant neoplasm of colonMCKAY-DEE HOSPITAL CENTER HealthcarePatient EducationHemorrhoidsHighland District Hospital Ctr Work Phone: Immunizations Immunization DateImmunizationNotesCare LfsfxctnHpfjjlef32-88-5356esrotdwkx, seasonal, injectable, preservative freeLisa Aichholz TENNIS PLAYER Work Phone: [facility] CareTltjowpzqz05-01-6846wwoewsw, mumps and rubella virus vaccineLisa Aichholz TENNIS PLAYER Work Phone: [facility] CenterUyjnjpmapn26-99-2406Qrddxqlrafko conjugate vaccine, 21 valent (PCV21), polysaccharide FDQ640 conjugate, preservative free Luci Aichholz TENNIS PLAYER Work Phone: [facility] CenterJyuboufodi25-67-2780dbccrqqhb virus vaccine, unspecified formulationLisa Aichholz TENNIS PLAYER Work Phone: [phone] [place], [place] [address]Nnmxqijvqt06-41-6816phbalxe toxoid, reduced diphtheria toxoid, and acellular pertussis vaccine, adsorbedBrittany Velasquez TENNIS PLAYER Work Phone: [facility] CareNrqawdpkyt85-45-8491aulywc vaccine recombinant Marquis Velasquez TENNIS PLAYER Work Phone: [facility] CareDybqlfhyux08-39-7740tatndbnvk, seasonal, injectableLisa Aichholz TENNIS PLAYER Work Phone: [facility] CareWrugydwzss49-32-9880Npznjindu, injectable, Madin Carrie Canine Kidney, preservative free, quadrivalentBrittany Velasquez TENNIS PLAYER Work Phone: [facility] CareMzqdbscuak83-93-5400vbwgmlbbj virus vaccine, unspecified formulationBrittany Velasquez TENNIS PLAYER Work Phone: [phone] [place], [place] [address]Eoemxukvmn85-87-9705TNWRK-30 mRNA Comcrystal (Pfizer)MD Sav Andrews Work Phone: [facility]04-26-2021COVID-19 mRNA Comirmichelle (Pfizer)MD Sav Andrews Work Phone: [facility]09-23-2020Influenza, injectable, Madin Hollis Canine Kidney, preservative free, quadrivalentBrittany Velasquez TENNIS PLAYER Work Phone: [facility] CareRodlpvwwht93-22-1252yiaficook, seasonal, injectableBrittany Velasquez TENNIS PLAYER Work Phone: [facility] CareOwmsyritja15-46-3511vfwqiafra, injectable, quadrivalent, preservative freeBrittany Velasquez TENNIS PLAYER Work Phone: [facility] Payers DatePayer CategoryPayerPolicy [id number] Member Subscriber Plan / Payer (Effective 2022-Present) Name: Lavern Dietz Relation to Subscriber: Self Name: Lavern Dietz Payer ID: Not on file Type: Not on file Address: [address] [place] [id number] BCBS BCBS [id number] 2022-Present [phone] [address] [place] [id number]-piy 8ddt4sjz-[id number]-xr5k-n654w[id number] 2.0.1.732602.3.57[id number] 2..1.440583.3.57[id number] 2.0.1.494597.3.57[id number] 2.0.1.558892.3.57[id number] 2.0.1.239475.3.57[id number] 2.0.1.008772.3.57[id number] 2.0.1.393074.3.57[id number] 2.840.1.007513.3.579.[id number] 2.0.1.953720.3.579.[id number] 2.0.1.638038.3.57[id number] 2.0.1.347861.3.57[id number] 2..840.1.501160.3.579.2.[id number] 2.0.1.581475.3.57[id number] 2.0.1.526249.3.57[id number] 2.0.1.932749.3.579.[id number] 2.0.1.622911.3.579.2.401798-73-2311HgirflbGNF367N25504 612f163h-7gi4-0694-cw49-[id number] 2.0.1.2[id number] 2.0.1.371526.3.579.2.531 [id number] 2..1.9[id number] 2..1.139741.3.579.2.531 Social History DateTypeDetailFacilityStart: 12-22-2021 End: 64-77-4800Yzrbsac smoking status NHISEx-smoker (finding)[facility] Centertart: 99-83-4707Bnl [facility] SpringfieldHistory of tobacco useCurrent smokerNOMS HealthcareHistory of tobacco useCigarette SmokerNOMS HealthcareHistory of tobacco usePassive smoker N[facility]S HealthcareStart: 26-46-0354Vxqqsoo use and exposureSmokeless tobacco non-userNOMS HealthcareStart: 09-16-2023 End: 58-31-9600Akxhbpgqm beverage intakeLifetime non-drinker (finding)[facility] HealthcareStart: 10-24-2023 End: 71-58-6901Hgzvtst of Social functionNOMS HealthcareStart: 10-24-2023 End: 07-84-4042M8368 Health LiteracyNOMS HealthcareStart: 98-30-6835Aqe often do you need to have someone help you when you read instructions, pamphlets, or other written material from your doctor or pharmacy [SILS]SometimesNOMS HealthcareDo you belong to any clubs or organizations such as sikhism groups, unions, fraternal or athletic groups, or school groups?YesNOMS HealthcareHow often to you have a drink containing alcohol?NeverNOMS HealthcareHow hard is it for you to pay for the very basics like food, housing, medical care, and heating Not very hardNOMS HealthcareDo you feel stress - tense, restless, nervous, or anxious, or unable to sleep at night because yourmind is troubled all the time - these days [OSQ]Not at allNOMS Healthcare(I/We) worried whether (my/our) food would run out before (I/we) got money to buy more.Never trueNOMS HealthcareIn the past 12 months, was there a time when you were not able to pay the mortgage or rent on time?NoNOMS HealthcareStart: 43-70-3259Bdm assigned at birthNot on fileNOMS HealthcareHow often do you need to have someone help you when you read instructions, pamphlets, or other written material from your doctor or pharmacy [SILS]SometimesNOMS HealthcareSexMale (finding)[facility] Tobacco smoking status NHISTobacco smoking consumption unknownNOAK Healthcare Medical Equipment Procedure CodeEquipment CodeEquipment Original TextEquipment IdentifierDates [id number]: 10-24-2023 End: [id number]: 04-27-2024 End: [id number]: 11-19-2024 End: 11-19-2025 Goals DatePatient GoalDesired Activity/State Functional Status ZszxTndocxqutpHrvudaCcucqsxl44-16-9796Rorfwza Health Questionnaire 2 item (PHQ- 2) [Reported][facility] CareDtmodcwnqe59-82-1648Yedti score [AUDIT-C]0 01/21/2024 5:27 PM EDT Danielle Coto Zdkadypimr79-83-6713Eap often do you have a drink containing alcohol?Never 01/21/2024 5:27 PM EDT Leahhart, Generic CynthiaNOOzarks Medical CenterUllnnyvesd37-33-3503Mfmmdyipqh statusPatient does not drink 01/21/2024 5:27 PM EDT [facility], Generic Patient does not drinkSSM Health CareXeufybocsd29-25-6777Icb often do you have 6 or more drinks on 1 occasion?Never 01/21/2024 5:27 PM EDT [facility], Generic CynthiaSSM Health CareHjrbfihsww30-92-4358Izuroct Health Questionnaire 2 item (PHQ- 2) [Reported][facility] Health CareGniipqlmyn07-60-8645Aamdudq Health Questionnaire 2 item (PHQ- 2) [Reported][facility] Health CareDhjuizglyj21-58-3380Degdulq Health Questionnaire 2 item (PHQ- 2) [Reported][facility] Clinical Notes 09-05-2021 to 02-23-2025 Note Date & BlpjTqwaJuuggexe96-82-1026 History of Present illness Narrative* Abisai Boateng, [facility] - 02/23/2025 3:15 PM EDT Images from the original note were not included. Subjective Patient ID: Lavern Dewey is a 60 y.o. male who presents for Diabetic foot check (Lavern Dewey is a 60 y.o. male who presents for DM Foot Care PCP: Luci SEO 02/11/25, A1C: 8.3,BS: 175). HPI Established patient returns to clinic for [...] kidney injury) Arthritis of ankle, right Asthma ([facility]) Avascular necrosis of talus, right ([facility]) Dietrich cyst, right Enlarged and hypertrophic nails Eosinophilia Equinus contracture of right ankle Gastroesophageal reflux disease Hemorrhoids Hyperlipemia, mixed Hypertension Onychomycosis of toenail Osteoarthritis of both knees, unspecified osteoarthritis type Osteochondral defect of talus Pain, foot, right, chronic Peroneal tendinitis, right Right ankle pain Right leg swelling Severe persistent asthma ([facility]) Skin tags, multiple acquired Sprain of right ankle, sequela T2DM (type 2 diabetes mellitus) ([facility]) Medications Current Outpatient Medications: albuterol HFA [...] in the morning and 1 tablet (25 mg)in the evening. Take with meals., Disp: 180 tablet, Rfl: 1 Continuous Glucose Supervisor [employer] (FreeStyle Agueda 2 [place]) device, 1 each in the morning and 1 each at noon and 1 each in the evening and 1 each before bedtime., Disp: 1 each, Rfl: 0 dapagliflozin (Farxiga) 5 MG, Take 1 tablet (5 mg) by mouth Daily, Disp: 90 tablet, Rfl: 1 Ccseunwceiw-Oqkhwphyd-Hwbjwa (Trelegy Ellipta) 200-62.5-25 MCG/ACT aerosol powder , Inhale 1 puff Daily INHALE 1 PUFF ONCE DAILY, rinse mouth after use, Disp: 1 each, Rfl: 5 glipiZIDE (Glucotrol) 5 MG tablet, Take 1 tablet (5 mg) by mouth in the morning and 1 tablet (5 mg)in the evening. Take before meals., Disp: 180 tablet, Rfl: 1 insulin glargine (Lantus SoloStar) 100 UNIT/ML pen, Inject 20 Units under the skin at bedtime, Disp: 18 mL, Rfl: 2 insulin pen needle (B-D ULTRAFINE III SHORT PEN) 31G X 8 mm misc, Daily, Disp: 100 each, Rfl: 3 losartan-hydroCHLOROthiazide (Hyzaar) 100-25 MG tablet, Take 1 [...] mg) by mouth in the morning. Take beforemeals., Disp: 90 capsule, Rfl: 1 spironolactone (Aldactone) 50 MG tablet, Take 1 tablet (50 mg) by mouth Daily, Disp: 90 tablet, Rfl: 1 Allergies Patient has no known allergies. Past Surgical History Past Surgical History: Procedure Laterality Date ANKLE SURGERY Right COLONOSCOPY 2021 HEMORRHOID SURGERY 09/10/2022 banding of hemorrhoids Family History Family History Problem Relation Name Age of Onset Stroke Father Keith Godinez Diabetes Sister Mariam Godinez Objective Physical Exam Constitutional: General: He is not in acute distress. Appearance: He is obese. Comments: Accompanied by his . Cardiovascular: Comments: DP pulse: 2/4 PT pulse: 2/4 Skin temperature is warm to warm bilaterally Edema: Moderate edema bilaterally, worse on the right lower extremity. Multiple telangiectasias andvaricosities bilaterally. Hemosiderin deposition present bilaterally. Pulmonary: Effort: [...] with long-term current use of insulin (HCC) E11.42 Z79.4 Patient was examined and evaluated. 10 toenails were debrided in length and thickness today utilizing a nail nipper and electric bur terrazzo grinder without incident. I have discussed the importance of dailyfoot examinations and tight blood sugar control. We [...] understanding. Abisai Boateng DPM documented in this encounterSSM Health CareEqkqibjpec05-55-7506 History of Present illness Narrative* Luci Rios NP - 12/31/2024 5:09 PM EDTAssociated Problem(s): Chronic pain of right ankle Attempted to call Dr Alcaraz's office they were closed Will send for xray and venous doppler to r/o DVT * REKHA GRIDER - 12/31/2024 3:40 PM EDT Pt had surgery last year in right ankle- pt came in limping today pain in that right ankle, swelling ankles and legs, and bruising. He sees that dr not until jamison alcaraz Current BG is 98 Fasting range 100-140s * Luci Rios NP - 12/31/2024 3:40 PM EDT Images from the original [...] 2 times daily with meals Continuous Glucose Supervisor [employer] Farm (ModaMiyle Agueda 2 Sanford) device 1 each, Does not apply, 4 times daily Continuous Glucose Sensor (Dexcom G7 Sensor) misc 1 each, Does not apply, Daily dapagliflozin (FARXIGA) 5 mg, Oral, Daily diclofenac (CATAFLAM) 50 mg, Oral, 2 times daily, Take with food Eoxysejattr-Bcwefyfqg-Hlswcg (Trelegy Ellipta) 200-62.5-25 MCG/ACT aerosol powder 1 [...] kidney injury) Arthritis of ankle, right Asthma ([facility]) Avascular necrosis of talus, right ([facility]) Dietrich cyst, right Enlarged and hypertrophic nails Eosinophilia Equinus contracture of right ankle Gastroesophageal reflux disease Hemorrhoids Hyperlipemia, mixed Hypertension Onychomycosis of toenail Osteoarthritis of both knees, unspecified osteoarthritis type Osteochondral defect of talus Pain, foot, right, chronic Peroneal tendinitis, right Right ankle pain Right leg swelling Severe persistent asthma ([facility]) Skin tags, multiple acquired Sprain of right ankle, sequela T2DM (type 2 diabetes mellitus) ([facility]) Past Surgical History: Procedure Laterality Date [...] glycemic control Severe persistent asthma without complication (HCC) In the past has used trelegy 200, symbicort 160, and flovent, has seen pulmonary in the past Finds benefit with trelegy 100's Current meds: trelegy, albuterol Type 2 diabetes mellitus without complications (HCC) [...] obesity due to excess calories ([facility]) Discussed with patient their BMI (actual, [...] of right ankle Attempted to call Dr Alcaraz's office they were closed Will send for xray and venous doppler to r/o DVT Relevant Medications diclofenac (Cataflam) 50 MG tablet Other Relevant Orders XR ankle 3+ views right * Luci Rios NP - 12/31/2024 6:52 [...] obesity due to excess calories ([facility]) Discussed with patient their BMI (actual, verses [...] inspections, good glycemic control documented in this encounterSSM Health CareKjiqyvpucy60-59-5976 Instructions* Patient Instructions* Luci Rios NP - 12/31/2024 3:40 PM EDT Try diclofenac twice a day with food for swelling and pain Get labs check in about 10 days or so documented in this encounterSSM Health CareQnrpvbaqek07-12-1320 Telephone encounter Note* Telephone Encounter - Luci Rios NP - 12/09/2024 6:13 AM EDT Contact pt, let him know his insurance is denying Freestyle agueda 3 device They want him to use a different CGM system, wants him to use dexcom, I have a housekeeping aide and 2 sensor samples, [place] [facility] CareNzeinruzly59-37-7820 Miscellaneous Notes* Telephone Encounter - Luci Rios NP - 12/09/2024 6:13 AM EDT Contact pt, let him know his insurance is denying Freestyle agueda 3 device They want him to use a different CGM system, wants him to use dexcom, I have a housekeeping aide and 2 sensor samples, [place] documented in this encounterSSM Health CareTdyijmurjr67-82-7048 History of Present illness Narrative* Luci Rios NP - 11/19/2024 3:40 PM EDT Images from [...] no complianceproblems. There is no history of CAD/DC, heart failure or retinopathy. Diabetes He presents [...] being taken. 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 SUBJECTIVE: MEDICATIONS: Current Outpatient Medications Medication Instructions albuterol HFA 90 mcg/act inhaler 2 puffs, Inhalation, Every 4 hours PRN amLODIPine (NORVASC) 10 mg, Oral, Daily aspirin 81 mg, Oral, Daily RT atorvastatin (LIPITOR) 40 mg, Oral, Daily carvedilol (COREG) 25 mg, Oral, 2 times daily with meals Continuous Glucose Supervisor [employer] (FreeStyle Agueda 2 [place]ford) device 1 each, Does not apply, 4 times daily Continuous Glucose Sensor (FreeStyle Agueda 3 Plus Sensor) misc 1 each, Other, Continuous, USE 1 SENSOR EVERY 15 DAYS TO MONITOR BLOOD SUGAR. dapagliflozin (FARXIGA) 5 mg, Oral, Daily Vreqvyrvioc-Ibktsxlqf-Vpstrd (Trelegy Ellipta) 200-62.5-25 MCG/ACT aerosol powder 1 [...] kidney injury) Arthritis of ankle, right Asthma ([facility]) Avascular necrosis of talus, right ([facility]) Dietrich cyst, right Enlarged and hypertrophic nails Eosinophilia Equinus contracture of right ankle Gastroesophageal reflux disease Hemorrhoids Hyperlipemia, mixed Hypertension Onychomycosis of toenail Osteoarthritis of both knees, unspecified osteoarthritis type Osteochondral defect of talus Pain, foot, right, chronic Peroneal tendinitis, right Right ankle pain Right leg swelling Severe persistent asthma ([facility]) Skin tags, multiple acquired Sprain of right ankle, sequela T2DM (type 2 diabetes mellitus) ([facility]) Past Surgical History: Procedure Laterality Date [...] persistent asthma without complication (HCC) Relevant Medications Ppjnpvhygfz-Mnimvefzl-Gerllq (Trelegy Ellipta) 200-62.5-25 MCG/ACT aerosol powder Hyperlipidemia [...] Sensor (FreeStyle Agueda 3 Plus Sensor) misc dapagliflozin (Farxiga) 5 MG Other Relevant Orders POCT glycosylated hemoglobin (Hb A1C) docked device (Completed) Morbid (severe) obesity due to excess calories ([facility]) Discussed with patient their BMI (actual, [...] obesity due to excess calories ([facility]) Discussed with patient their BMI (actual, verses [...] amlodipine, carvedilol, losartan/hydrochlorothiazide, aldactone documented in this encounterSSM Health CareNyxktssqip73-94-9238 History of Present illness Narrative* Luci Rios NP - 10/08/2024 4:18 PM EDTAssociated Problem(s): Elevated serum creatinine Recheck labs, still has not heard anything about renal US at [facility] We will refax * REKHA GRIDER - 10/08/2024 3:40 PM EDT Pt has not eaten since 10-10:30 am Agueda: 83 Glucose: 80 States he will eat again around 6/7PM * Luci Rios NP - 10/08/2024 3:40 PM EDT Images from the original [...] The current treatment provides significant improvement. Hypertensive end-organdamage includes kidney disease. SUBJECTIVE: MEDICATIONS: Current Outpatient Medications Medication Instructions albuterol HFA 90 mcg/act inhaler 2 puffs, Inhalation, Every 4 hours PRN amLODIPine (NORVASC) 10 mg, Oral, Daily aspirin 81 mg, Oral, Daily RT atorvastatin (LIPITOR) 40 mg, Oral, Daily carvedilol (COREG) 25 mg, Oral, 2 times daily with meals Continuous Glucose Supervisor [employer] (FreeStyle Agueda 2 Sanford) device 1 each, Does not apply, 4 times daily Continuous Glucose Sensor (FreeStyle Agueda 3 Plus Sensor) [facility] [place] USE 1 SENSOR EVERY 15 DAYS TO MONITOR BLOOD SUGAR. dapagliflozin (FARXIGA) 5 mg, Oral, Daily Vpbjozokipa-Qbmgplgnl-Hquqan (Trelegy Ellipta) 200-62.5-25 MCG/ACT aerosol powder 1 puff, Inhalation, Daily, INHALE 1 PUFF ONCE DAILY, rinse mouth after use glipiZIDE (GLUCOTROL) 5 mg, Oral, 2 times daily before meals insulin glargine-yfgn (SEMGLEE (YFGN)) 20 Units, Subcutaneous, Nightly insulin pen needle (B-D ULTRAFINE III SHORT PEN) 31G X 8 mm [facility] Daily losartan-hydroCHLOROthiazide (Hyzaar) 100-25 MG tablet 1 [...] ankle, sequela T2DM (type 2 diabetes mellitus) ([facility]) Past Surgical History: Procedure Laterality Date [...] persistent asthma without complication (CMS/HCC) Relevant Medications Hqftjhkdxkp-Ipfangcix-Xdceqj (Trelegy Ellipta) 200-62.5-25 MCG/ACT aerosol powder Type [...] looking great!!! 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 Keep up the great work * Luci Rios NP - 10/08/2024 7:08 AM EDTAssociated Problem(s): Morbid (severe) obesity due to excess calories (CMS/HCC) Discussed with patient their BMI (actual, verses recommended). We have also discussed lifestyle modifications: attempts to perform physical activity as chronic conditions allow, also to monitor dietary intake: increasing protein/fruits/veggies and lowering carb intake (unless contraindicated). Limit sodas, juices, and sugary drinks. * Luci Rios NP - 10/08/2024 7:08 AM EDTAssociated Problem(s): Edema of both lower extremities Current meds: aldactone, hydrochlorothiazide in losartan * Luci Rios NP - 10/08/2024 7:08 AM EDTAssociated Problem(s): Primary hypertension (CMS/HCC) Please check blood pressure daily and record DASH diet Limit caffeine Take medication as directed Contact office if chest pain, pressure, dizziness, shortness of breath, swelling legs Recommend slow position changes Current meds: amlodipine, carvedilol, losartan/hydrochlorothiazide, aldactone * Luci Rios NP - 10/08/2024 7:07 AM EDTAssociated Problem(s): Type 2 diabetes mellitus with diabetic polyneuropathy, with long-term current use of insulin ([facility]) No current treatment Recommend proper fitting toes, freq foot inspections, good glycemic control documented in this encounterSSM Health CareUfifphxlkl08-70-3481 Instructions* Patient Instructions* Luci Rios NP - 10/08/2024 3:40 PM EDT No dose changes in meds Keep up the great work Order for labs no fasting [facility] to [facility]: [phone] documented in this encounterSSM Health CareDybawzjlqm26-62-9133 History of Present illness Narrative* Luci Rios NP - 09/17/2024 4:00 PM EDT Images from the original note [...] 2 times daily with meals Continuous Glucose Supervisor [employer] (FreeStyle Agueda 2 [place]) device 1 each, Does not apply, 4 times daily Continuous Glucose Sensor (FreeStyle Agueda 3 Plus Sensor) [facility] [place] USE 1 SENSOR EVERY 15 DAYS TO MONITOR BLOOD SUGAR. dapagliflozin (FARXIGA) 5 mg, Oral, Daily Pmgxjacisyu-Jxactnutr-Rvbels (Trelegy Ellipta) 200-62.5-25 MCG/ACT aerosol powder 1 puff, Inhalation, Daily, INHALE 1 PUFF ONCE DAILY, rinse mouth after use glipiZIDE (GLUCOTROL) 5 mg, Oral, 2 times daily before meals insulin glargine-yfgn (SEMGLEE (YFGN)) 20 Units, Subcutaneous, Nightly insulin pen needle (B-D ULTRAFINE III SHORT PEN) 31G X 8 mm [facility] Daily losartan-hydroCHLOROthiazide (Hyzaar) 100-25 MG tablet 1 [...] Date AYESHA (acute kidney injury) ([facility]) Arthritis of ankle, right Asthma Avascular necrosis of talus, right ([facility]) Dietrich cyst, right Enlarged and hypertrophic nails Eosinophilia Equinus contracture of right ankle Gastroesophageal reflux disease Hemorrhoids Hyperlipemia, mixed (CMS/HCC) Hypertension ([facility]) Onychomycosis of toenail Osteoarthritis of both knees, unspecified osteoarthritis type Osteochondral defect of talus Pain, foot, right, chronic Peroneal tendinitis, right Right ankle pain Right leg swelling Severe persistent asthma Skin tags, multiple acquired Sprain of right ankle, sequela T2DM (type 2 diabetes mellitus) ([facility]) Past Surgical History: Procedure Laterality Date [...] Orders US renal complete documented in this encounterSSM Health [id number] Instructions* Patient Instructions* Luci Rios NP - 09/17/2024 4:00 PM EDT No med changes, keep your follow up appt I am going to order an Ultrasound of kidneys [facility] Same day as the Ultrasound recheck blood work documented in this [facility]03-31-2025 History of Present illness Narrative* Abisai Boateng DPM - 08/24/2024 3:30 PM EDT Images from the original note [...] Date AYESHA (acute kidney injury) ([facility]) Arthritis of ankle, right Asthma Avascular necrosis of talus, right ([facility]) Dietrich cyst, right Enlarged and hypertrophic nails Eosinophilia Equinus contracture of right ankle Gastroesophageal reflux disease Hemorrhoids Hyperlipemia, mixed ([facility]) Hypertension ([facility]) Onychomycosis of toenail Osteoarthritis of both knees, unspecified osteoarthritis type Osteochondral defect of talus Pain, foot, right, chronic Peroneal tendinitis, right Right ankle pain Right leg swelling Severe persistent asthma Skin tags, multiple acquired Sprain of right ankle, sequela T2DM (type 2 diabetes mellitus) ([facility]) Medications Current Outpatient Medications: albuterol HFA [...] in the morning and 1 tablet (25 mg)in the evening. Take with meals., Disp: 180 tablet, Rfl: 1 Continuous Glucose Supervisor [employer] (FreeStyle Agueda 2 [place]) device, 1 each in the morning and 1 each at noon and 1 each in the evening and 1 each before bedtime., Disp: 1 each, Rfl: 0 Continuous Glucose Sensor (FreeStyle Agueda 3 Plus Sensor) [facility] [place], USE 1 SENSOR EVERY 15 DAYS TO MONITOR BLOOD SUGAR., Disp: , Rfl: dapagliflozin (Farxiga) 5 MG, Take 1 tablet (5 mg) by mouth Daily, Disp: 90 tablet, Rfl: 0 Zxdylfcrfim-Khjjdzlrs-Iucyun (Trelegy Ellipta) 200-62.5-25 MCG/ACT aerosol powder , Inhale 1 puff Daily INHALE 1 PUFF ONCE DAILY, rinse mouth after use, Disp: 1 each, Rfl: 5 glipiZIDE (Glucotrol) 5 MG tablet, Take 1 tablet (5 mg) by mouth in the morning and 1 tablet (5 mg)in the evening. Take before meals., Disp: 180 [...] mg) by mouth in the morning. Take beforemeals., Disp: 90 capsule, Rfl: 1 spironolactone (Aldactone) [...] on the right lower extremity. Multiple telangiectasias andvaricosities bilaterally. Hemosiderin deposition present bilaterally. Pulmonary: Effort: [...] long-term current use of insulin ([facility]) E11.42 Z79.4 Patient was examined and evaluated. Diabetic foot evaluation performed. Patient is low risk for diabetic foot complications. He does have some mild neuropathy but currently has no preulcerative lesions. 10 toenails were debrided in length and thickness today utilizing a nail nipper and electric burgrinder without incident. I have discussed the importance [...] understanding. Abisai Boateng DPM documented in this encounterSSM Health [id number] History of Present illness Narrative* REKHA GRIDER - 07/29/2024 3:20 PM EST Pt states that about 2 weeks ago he had pain in his right knee and swelling in the right leg. Pt states it happened just the one time. Pt is having pin and needles in the left hand. 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 The current episode started morethan 1 year ago. The problem occurs daily. [...] dyslipidemia, hypertension, male sex, obesity and sedentary lifestyle.Current diabetic treatment includes oral agent (triple therapy) [...] are no compliance problems. Hypertensive end-organ damage includeskidney disease. There is no history of heart failure or PVD. SUBJECTIVE: MEDICATIONS: Current Outpatient Medications Medication Instructions albuterol HFA 90 mcg/act inhaler 2 puffs, Inhalation, Every 4 hours PRN amLODIPine (NORVASC) 10 mg, Oral, Daily aspirin 81 mg, Oral, Daily RT atorvastatin (LIPITOR) 40 mg, Oral, Daily carvedilol (COREG) 25 mg, Oral, 2 times daily with meals Continuous Glucose Supervisor [place] (FreeStyle Agueda 2 [place]) device 1 each, Does not apply, 4 times daily Continuous Glucose Sensor (FreeStyle Agueda 3 Plus Sensor) [facility] [place] 1 SENSOR EVERY 15 DAYS TO MONITOR BLOOD SUGAR. furosemide (LASIX) 40 mg, Daily glipiZIDE (GLUCOTROL) 5 mg, Oral, 2 times daily before meals insulin glargine-yfgn (SEMGLEE (YFGN)) 20 Units, Subcutaneous, Nightly insulin pen needle (B-D ULTRAFINE III SHORT PEN) 31G X 8 mm [facility] [place] Daily losartan-hydroCHLOROthiazide (Hyzaar) 100-25 MG tablet 1 [...] polyuria (occ). Negative for cold intolerance and heatintolerance. Allergic/Immunologic: Negative for environmental allergies and food allergies. PAST MEDICAL HISTORY Past Medical History: Diagnosis Date AYESHA (acute kidney injury) ([facility]/HCC) Arthritis of ankle, right Asthma (CMS/[facility]) Avascular necrosis of talus, right (CMS/HCC) Dietrich [...] T2DM (type 2 diabetes mellitus) ([facility]) Past Surgical History: Procedure Laterality Date [...] current use of insulin (CMS/HCC) - Primary No current treatment Recommend proper fitting toes, freq foot inspections, good glycemic control Severe persistent asthma without complication (CMS/HCC) Current meds: trelegy, albuterol #2 samples of trelegy: 100's, lot MV9W, exp 1/26 In the past has used trelegy 200, symbicort 160, and flovent Finds benefit with trelegy 100's Has seen pulmonology in the past Relevant Medications Rcrplyemkiz-Zlyfyrdsz-Fbkwen (Trelegy Ellipta) 200-62.5-25 MCG/ACT aerosol powder albuterol HFA 90 mcg/act inhaler Gastro-esophageal reflux disease without esophagitis Recommendations: freq small meals, nothing to eat or drink at least 2 hours prior to bed, limit caffeine, alcohol, as well as spicy foods Meds to limit or avoid if possible: NSAIDS Elevate HOB if possible Med: omeprazole Hyperlipidemia ([facility]) On statin therapy Check labs yearly, and prn dose changes Type 2 diabetes mellitus without complications ([facility]) Check blood sugars daily, notify if [...] 07/18/24 Relevant Medications dapagliflozin (Farxiga) 5 MG 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 We have also discussed lifestyle modifications: attempts to perform physical activity as chronic conditions allow, also to monitor dietary intake: increasing protein/fruits/veggies and lowering carb intake (unless contraindicated). Limit sodas, juices, and sugary drinks. Body mass index (BMI) 38.0-38.9, adult Idiopathic aseptic necrosis of right foot ([facility]) Has seen podiatry in the past Primary hypertension ([facility]) Please check blood pressure daily and record DASH diet Limit caffeine Take medication as directed Contact office if chest pain, pressure, dizziness, shortness of breath, swelling legs Recommend slow position changes Current meds: amlodipine, carvedilol, losartan/hydrochlorothiazide, aldactone Will increase dose on aldactone to 100mg daily Recheck blood pressure in 2 weeks-currently no symptoms * Luci Rios NP - 07/29/2024 7:44 AM ESTAssociated Problem(s): penitentiary (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 ([facility]) Continue with insulin * Luci Rios NP - 07/29/2024 7:44 AM ESTAssociated Problem(s): Hyperlipidemia ([facility]) On statin therapy Check labs yearly, and prn dose changes * Luci Rios NP - 07/29/2024 7:44 AM ESTAssociated Problem(s): Type 2 diabetes mellitus without complications ([facility]) Check blood sugars daily, notify if [...] no contraindications for that A1c 8.3% 07/18/24 * Luic Rios NP - 07/29/2024 7:43 AM ESTAssociated Problem(s): Morbid (severe) obesity due to excess calories (CMS/HCC) Discussed with patient their BMI (actual, verses recommended). We have also discussed lifestyle modifications: attempts to perform physical activity as chronic conditions allow, also to monitor dietary intake: increasing protein/fruits/veggies and lowering carb intake (unless contraindicated). Limit sodas, juices, and sugary drinks. * Luci Rios NP - 07/29/2024 7:42 AM ESTAssociated Problem(s): 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) Has seen podiatry in the past * Luci Rios NP - 07/29/2024 7:42 AM ESTAssociated Problem(s): Gastro- esophageal reflux disease without esophagitis Recommendations: freq small meals, nothing to eat or drink at least 2 hours prior to bed, limit caffeine, alcohol, as well as spicy foods Meds to limit or avoid if possible: NSAIDS Elevate HOB if possible Med: omeprazole * Luci Rios NP - 07/29/2024 7:42 AM ESTAssociated Problem(s): Primary hypertension (CMS/HCC) Please check blood pressure daily and record DASH diet Limit caffeine Take medication as directed Contact office if chest pain, pressure, dizziness, shortness of breath, swelling legs Recommend slow position changes Current meds: amlodipine, carvedilol, losartan/hydrochlorothiazide, aldactone Will increase dose on aldactone to 100mg daily Recheck blood pressure in 2 weeks-currently no symptoms * Luci Rios NP - 07/29/2024 7:41 AM ESTAssociated Problem(s): Severe persistent asthma without complication ([facility]) Current meds: trelegy, albuterol #2 samples of trelegy: 100's, lot MV9W, exp 06/21 In the past has used trelegy 200, symbicort 160, and flovent Finds benefit with trelegy 100's Has seen pulmonology in the past * Luci Rios NP - 07/29/2024 7:41 AM ESTAssociated Problem(s): Type 2 diabetes mellitus with diabetic polyneuropathy, with long-term current use of insulin ([facility]) No current treatment Recommend proper fitting toes, freq foot inspections, good glycemic control documented in this encounterSSM Health [id number] Instructions* Patient Instructions* Luci Rios NP - 07/29/2024 3:20 PM EST Aldactone increase to 2 pills daily (total 100mg) Diabetes: I want to check with insurance about either Farxiga or Jardiance -it will be 1 pill daily, pulls sugar out through the urine. I will also check into the Mounjaro/Ozempic/Trulicity documented in this [facility]12-02-2024 History of Present illness Narrative* Marquis Velasquez NP - 04/27/2024 3:30 PM EST Images from the original note were not [...] has stopped eating once he is full andbegan drinking more water and protein shakes. Review [...] Neurological: Negative for dizziness, tremors, syncope, weakness, light- headedness and headaches. Psychiatric/Behavioral: Negative for decreased concentration and suicidal ideas. The patient is notnervous/anxious. Hematological: Does not bruise/bleed easily. Endocrine: Negative [...] long-term current use of insulin ([facility]) - Primary Glipizide 5mg Metformin 850mg [...] has stopped eating once he is full andbegan drinking more water and protein shakes. Relevant [...] omeprazole (PriLOSEC) [address] capsule * Marquis Velasquez NP - 04/27/2024 3:25 PM ESTAssociated Problem(s): Resistant hypertension (CMS/HCC) Currently taking Amlodipine 10mg Carvedilol 25mg Losartan-hydrochlorothiazide 100-25mg Spironlactone 50mg Checks BP at home; Averages are Denies orthostatic changes, dizziness, cough, shortness of breath, swelling in extremities. Continue current regimen * Marquis Velasquez NP - 04/27/2024 3:25 PM ESTAssociated Problem(s): Type 2 diabetes mellitus with diabetic [...] has stopped eating once he is full andbegan drinking more water and protein shakes. * Marquis Velasquez NP - 04/27/2024 3:24 PM ESTAssociated Problem(s): Hyperlipidemia (CMS/HCC) Atorvastatin 40mg Denies myalgias Continue current regimen. documented in this [facility]12-02-2024 Instructions* Patient Instructions* Marquis Velasquez NP - 04/27/2024 3:30 PM EST Keep up the good work! Call if you need anything!!! documented in this [facility]09-30-2024 History of Present illness Narrative* Abisai Boateng DPM - 02/24/2024 3:30 PM EDT Images from the original note were not included. Subjective Patient ID: Lavern Dewey is a 59 y.o. male who presents for DM Foot Care (Lavern Dewey 59yo male, New Patient presents with referral from Marquis Velasquez 01/22/2024 for diabeticnail care and polyneuropathy.Patient relates his nails are thick and difficult to trim. BS 01/22/2024 A1C SS 9.5). HPI This is a new patient who was referred to me for diabetic foot evaluation. Patient denies history of ulceration, amputation. Denies significant numbness to his feet. He does have a history of right ankle surgery with Dr. Alcaraz. Review of Systems Constitutional: Negative for activity [...] Date AYESHA (acute kidney injury) ([facility]) Arthritis of ankle, right Asthma ([facility]) Avascular necrosis of talus, right ([facility]) Dietrich cyst, right Enlarged and hypertrophic nails Eosinophilia Equinus contracture of right ankle Gastroesophageal reflux disease Hemorrhoids Hyperlipemia, mixed ([facility]) Hypertension ([facility]) Onychomycosis of toenail Osteoarthritis of both knees, unspecified osteoarthritis type Osteochondral defect of talus Pain, foot, right, chronic Peroneal tendinitis, right Right ankle pain Right leg swelling Severe persistent asthma ([facility]) Skin tags, multiple acquired Sprain of right ankle, sequela T2DM (type 2 diabetes mellitus) ([facility]) Medications Current Outpatient Medications: albuterol HFA [...] in the morning and 1 tablet (25 mg)in the evening. Take with meals., Disp: 180 tablet, Rfl: 1 Continuous Glucose Supervisor [place] (ModaMiyle Agueda 2 [place]) device, 1 each in the morning and 1 each at noon and 1 each in the evening and 1 each before bedtime., Disp: 1 each, Rfl: 0 Ikboshkpxjc-Rpbioqxib-Svlacb (Trelegy Ellipta) 200-62.5-25 MCG/ACT aerosol powder , Inhale 1 puff Daily, Disp: 3 each, Rfl: 0 glipiZIDE (Glucotrol) 5 MG tablet, Take 1 tablet (5 mg) by mouth in the morning and 1 tablet (5 mg)in the evening. Take before meals., Disp: 180 [...] mg) by mouth in the morning. Take beforemeals., Disp: 90 capsule, Rfl: 1 SITagliptin (Januvia) [...] on the right lower extremity. Multiple telangiectasias andvaricosities bilaterally. Hemosiderin deposition present bilaterally. Pulmonary: Effort: [...] long-term current use of insulin ([facility]) E11.42 Ambulatory referral to Podiatry Z79.4 3. Onychomycosis B35.1 Patient was examined and evaluated. Patient is low risk for diabetic foot complications. He does have some mild loss of vibratory sensation bilaterally to suggest early neuropathy. No preulcerative lesions. 10 toenails were debrided in length and thickness today utilizing a nail nipper and electricbur terrazzo grinder without incident. I have discussed the [...] understanding. Abisai Boateng DPM documented in this encounterSSM Health [id number] History of Present illness Narrative* Marquis Velasquez NP - 01/22/2024 4:29 PM EDTAssociated Problem(s): Severe persistent asthma without complication ([facility]) Trelegy And Albuterol PRN. Feels symptoms are well managed. Denies any exacerbations, cough, shortness of breath. * Marquis Velasquez NP - 01/22/2024 4:28 PM EDTAssociated Problem(s): Type 2 diabetes mellitus with [...] noted. DM eye exam- 3 months ago * Marquis Velasquez NP - 01/22/2024 4:27 PM EDTAssociated Problem(s): Hyperlipidemia (CMS/HCC) Atorvastatin 40mg Denies myalgias Continue current regimen. * Marquis Velasquez NP - 01/22/2024 4:27 PM EDTAssociated Problem(s): Resistant hypertension (CMS/HCC) Currently taking Amlodipine 10mg Carvedilol 25mg Losartan-hydrochlorothiazide 100-25mg Spironlactone 50mg Checks BP at home; Averages are Denies orthostatic changes, dizziness, cough, shortness of breath, swelling in extremities. Continue current regimen. * Marquis Velasquez NP - 01/22/2024 4:00 PM EDT Images from the original note were not included. Subjective Patient ID: Lavern Dewey is a 58 y.o. male who presents for Follow-up (3MO, ) and Poison Suzi ([facility] WAS GIVEN STEROID AND CREAM. PT HAS BEEN DONE FOR ONE WEEK, BUT RASH IS STILL PRESENT ANDBLISTERING. ). HPI Labs all need to be [...] Neurological: Negative for dizziness, tremors, syncope, weakness, light- headedness and headaches. Psychiatric/Behavioral: Negative for decreased concentration and suicidal ideas. The patient is notnervous/anxious. Hematological: Does not bruise/bleed easily. Endocrine: Negative [...] UNIT/ML injection Severe persistent asthma without complication ([facility]) Trelegy And Albuterol PRN. Feels symptoms are well managed. Denies any exacerbations, cough, shortness of breath. Relevant Medications albuterol HFA 90 mcg/act inhaler Dbeubmejnuo-Eacnjtjjb-Cipabx (Trelegy Ellipta) 200-62.5-25 MCG/ACT aerosol powder Gastroesophageal reflux disease without esophagitis Relevant Medications omeprazole (PriLOSEC) [address] capsule Hyperlipidemia (CMS/HCC) Atorvastatin 40mg Denies myalgias Continue current regimen. Relevant Medications metFORMIN (Glucophage) 850 MG tablet aspirin 81 MG chewable tablet atorvastatin (Lipitor) 40 MG tablet Other Visit Diagnoses Type 2 diabetes mellitus without complication, with long-term current use of insulin (CMS/HCC) Relevant Medications Continuous Glucose Supervisor [place] (Endorse.meStyle Agueda 2 [place]) device Primary hypertension ([facility]) Relevant Medications losartan-hydroCHLOROthiazide (Hyzaar) 100-25 MG tablet amLODIPine (Norvasc) 10 MG tablet documented in this encounterSSM Health [id number] Instructions* Patient Instructions* Marquis Velasquez NP - 01/22/2024 4:00 PM [...] carbohydrates, and simple sugars. documented in this encounterSSM Health [id number] [facility] NotePROCEDURE: XR ANKLE RT MIN 3 VIEWS HISTORY: [...] Electronically authenticated by: MICHELLE IBRAHIM Date: 2021-10-26 08:54[facility]04-12-2022 NotePROCEDURE: XR ANKLE RT MIN 3 VIEWS COMPARISON: None. 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 No acute fracture, dislocation or mechanical failure. Stable degenerative changes. Mild enthesopathic spurring of the calcaneus SOFT TISSUES:Mild soft tissue swelling EFFUSION:None visible. OTHER: Negative. IMPRESSION: Stable talus arthroplasty Electronically authenticated by: GERA MONTGOMERY Date: 2021-09-05 15:22[facility]Evaluation noteNo assessment information availableMccullough-[facility] Work Phone: Evaluation note* Diagnosis Primary hypertension (CMS/HCC)- Primary Unspecified [...] of insulin (CMS/HCC) documented in this encounter [facility] HealthcareEvaluation [facility]* Diagnosis Primary hypertension (CMS/HCC)- [...] esophagitis Esophageal reflux documented in [facility] encounter [facility]Evaluation [facility]* Diagnosis Primary hypertension ([facility]/HCC)- Primary Unspecified essential hypertension Type 2 diabetes mellitus with diabetic polyneuropathy, with long-term current use of insulin ([facility]/HCC) Other hyperlipidemia ([facility]/HCC) Gastroesophageal reflux disease without esophagitis Esophageal reflux Type 2 diabetes mellitus with diabetic polyneuropathy, with long-term current use of insulin ([facility])- Primary Resistant hypertension ([facility]/HCC) Hyperlipidemia, unspecified hyperlipidemia type ([facility]/HCC)- Primary Resistant hypertension ([facility]/HCC) Type 2 diabetes mellitus with diabetic polyneuropathy, with long-term current use of insulin ([facility]) Gastroesophageal reflux disease without esophagitis Esophageal reflux Primary hypertension ([facility]/HCC) Unspecified essential hypertension Type 2 diabetes mellitus with diabetic polyneuropathy, with long-term current use of insulin ([facility])- Primary Severe persistent asthma without complication ([facility]/HCC) Resistant hypertension ([facility]/HCC) Gastroesophageal reflux disease without esophagitis Esophageal reflux Mixed hyperlipidemia ([facility]) Mixed hyperlipidemia Type 2 diabetes mellitus without complication, with long-term current use of insulin ([facility]) Primary hypertension ([facility]/HCC) Unspecified essential hypertension Hyperlipidemia, unspecified hyperlipidemia type ([facility]/HCC) Type 2 diabetes mellitus with diabetic polyneuropathy, with long-term current use of insulin ([facility])- Primary Resistant hypertension ([facility]/HCC) Gastroesophageal reflux disease without esophagitis Esophageal reflux Type 2 diabetes mellitus with diabetic polyneuropathy, with long-term current use of insulin ([facility])- Primary documented in this encounter [facility] HealthcareEvaluation note* Diagnosis Type 2 diabetes mellitus with diabetic polyneuropathy, with long-term current use of insulin ([facility])- Primary Severe persistent asthma without complication ([facility]) Resistant hypertension ([facility]/HCC) Gastroesophageal reflux disease without esophagitis Esophageal reflux Mixed hyperlipidemia ([facility]/HCC) Mixed hyperlipidemia Type 2 diabetes mellitus without complication, with long-term current use of insulin ([facility]) Primary hypertension ([facility]/HCC) Unspecified essential hypertension Hyperlipidemia, unspecified hyperlipidemia type ([facility]/HCC) documented in this encounter [facility] HealthcareEvaluation note* Diagnosis Onychodystrophy- Primary Other specified disease of nail Type 2 diabetes mellitus with diabetic polyneuropathy, with long-term current use of insulin ([facility]) Onychomycosis Dermatophytosis of nail documented in this encounter [facility] HealthcareEvaluation note* Diagnosis Primary hypertension (CMS/HCC)- [...] without complication (CMS/HCC) documented in this encounter [facility] HealthcareEvaluation note* Diagnosis Primary hypertension (CMS/HCC)- [...] Type 2 diabetes mellitus without complications (CMS/HCC) 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) Morbid (severe) obesity due to excess calories (CMS/HCC) Gastro-esophageal reflux disease without esophagitis Body mass index (BMI) 38.0-38.9, adult 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 polyneuropathy, with long-term current use of insulin ([facility]/HCC) Severe persistent asthma without complication (CMS/HCC) Mixed hyperlipidemia ([facility]/HCC) Mixed hyperlipidemia documented in this encounter [facility] HealthcareEvaluation note* Diagnosis Primary hypertension ([facility]/HCC)- Primary Unspecified essential hypertension Type 2 diabetes mellitus with diabetic polyneuropathy, with long-term current use of insulin ([facility]/HCC) Other hyperlipidemia (CMS/HCC) Gastroesophageal reflux disease without [...] Type 2 diabetes mellitus without complications (CMS/HCC) 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) Morbid (severe) [...] current use of insulin ([facility]/HCC) Hyperlipidemia, unspecified hyperlipidemia type (CMS/HCC) Resistant hypertension (CMS/HCC) Type 2 diabetes mellitus with diabetic polyneuropathy, with long-term current use of insulin ([facility]) Gastroesophageal reflux disease without esophagitis Esophageal reflux Edema of both lower extremities Elevated serum creatinine- Primary Other nonspecific findings on examination of blood documented in this encounter [facility] HealthcareEvaluation note* Diagnosis Primary hypertension (CMS/HCC)- [...] current use of insulin ([facility]/HCC) Gastroesophageal reflux disease without [...] long-term current use of insulin ([facility])- Primary Resistant hypertension (CMS/HCC) Gastroesophageal reflux disease without esophagitis Esophageal reflux Primary hypertension (CMS/HCC)- Primary Unspecified essential hypertension Type 2 diabetes mellitus without complications intermediate project manager (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 ([facility]) Morbid (severe) obesity due to excess calories ([facility]) Gastro-esophageal reflux disease without esophagitis Body mass index (BMI) 38.0-38.9, adult Idiopathic aseptic necrosis of right foot ([facility]) Type 2 diabetes mellitus with diabetic polyneuropathy, with long-term current use of insulin ([facility]) Severe persistent asthma without complication ([facility]) Mixed hyperlipidemia ([facility]) Mixed hyperlipidemia Primary hypertension ([facility])- Primary Unspecified essential hypertension Morbid (severe) obesity due to excess calories ([facility]) Type 2 diabetes mellitus without complication, with long-term current use of insulin Hyperlipidemia, unspecified hyperlipidemia type ([facility]/HCC) Resistant hypertension ([facility]) Type 2 diabetes mellitus with diabetic polyneuropathy, with long-term current use of insulin ([facility]) Gastroesophageal reflux disease without esophagitis Esophageal reflux Edema of both lower extremities Onychodystrophy- Primary Other specified disease of nail Onychomycosis Dermatophytosis of nail Type 2 diabetes mellitus with diabetic polyneuropathy, with long-term current use of insulin ([facility]) documented in this encounter [facility] HealthcareEvaluation note* Diagnosis Primary hypertension ([facility]/HCC)- Primary Unspecified essential hypertension Type 2 diabetes mellitus with diabetic polyneuropathy, with long-term current use of insulin ([facility]) Other hyperlipidemia Gastroesophageal reflux disease without esophagitis Esophageal reflux Type 2 diabetes mellitus with diabetic polyneuropathy, with long-term current use of insulin ([facility])- Primary Resistant hypertension ([facility]) Hyperlipidemia, unspecified hyperlipidemia type ([facility]/HCC)- Primary Resistant hypertension ([facility]/HCC) Type 2 diabetes mellitus with diabetic polyneuropathy, with long-term current use of insulin ([facility]) Gastroesophageal reflux disease without esophagitis Esophageal reflux Primary hypertension ([facility]) Unspecified essential hypertension Type 2 diabetes mellitus [...] hypertension Type 2 diabetes mellitus without complications 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) Morbid (severe) obesity due to excess calories (CMS/HCC) Gastro-esophageal reflux disease without esophagitis Body mass index (BMI) 38.0-38.9, adult Idiopathic aseptic necrosis of right foot ([facility]) Type 2 diabetes mellitus with diabetic [...] examination of blood documented in this encounter [facility] HealthcareEvaluation note* Diagnosis Primary hypertension (CMS/HCC)- [...] hypertension Type 2 diabetes mellitus without complications penitentiary (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 (CMS/HCC) Morbid (severe) obesity due to excess calories (CMS/HCC) Gastro-esophageal reflux disease without esophagitis Body mass index (BMI) 38.0-38.9, adult Idiopathic aseptic necrosis of right foot ([facility]) Type 2 diabetes mellitus with diabetic [...] current use of insulin ([facility]/HCC) Gastroesophageal reflux disease without esophagitis Esophageal reflux Edema of both lower extremities Elevated serum creatinine- Primary Other nonspecific findings on examination of blood Primary hypertension (CMS/HCC) Unspecified essential hypertension Type 2 diabetes mellitus without complication, with long-term current use of insulin documented in this encounter [facility] HealthcareEvaluation note* Diagnosis Primary hypertension (CMS/HCC)- [...] hypertension Type 2 diabetes mellitus without complications penitentiary (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 (CMS/HCC) Morbid (severe) [...] essential hypertension Edema of both lower extremities penitentiary (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 (CMS/HCC) Morbid (severe) obesity due to excess calories (CMS/HCC) Severe persistent asthma without complication (CMS/HCC) Elevated serum creatinine Other nonspecific findings on examination of blood documented in this encounter [facility] HealthcareEvaluation note* Diagnosis Primary hypertension- Primary Unspecified [...] Type 2 diabetes mellitus without complications (HCC) intermediate project manager (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 (HCC) Morbid (severe) obesity due to excess calories ([facility]-HCC) Gastro-esophageal reflux disease without esophagitis Body mass [...] essential hypertension Edema of both lower extremities penitentiary (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 (HCC) Morbid (severe) [...] esophagitis Esophageal reflux [facility] Primary hypertension- Primary Unspecified essential [...] Type 2 diabetes mellitus without complications (HCC) penitentiary (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 (HCC) Morbid (severe) [...] essential hypertension Edema of both lower extremities intermediate project manager (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 (HCC) Morbid (severe) [...] insulin (HCC)- Primary documented in this encounter [facility] HealthcareEvaluation note* Diagnosis Primary hypertension- Primary Unspecified [...] Type 2 diabetes mellitus without complications (HCC) penitentiary (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 (HCC) Morbid (severe) [...] essential hypertension Edema of both lower extremities intermediate project manager (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 (HCC) Morbid (severe) [...] insulin (HCC)- Primary [facility] Primary hypertension- Primary Unspecified essential [...] Type 2 diabetes mellitus without complications (HCC) intermediate project manager (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 (HCC) Morbid (severe) obesity due to excess calories ([facility]-HCC) Gastro-esophageal reflux disease without esophagitis Body mass index (BMI) 38.0-38.9, adult 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) Type 2 diabetes mellitus with diabetic polyneuropathy, with long-term current use of insulin (HCC) Severe persistent asthma without complication (HCC) Mixed hyperlipidemia Mixed hyperlipidemia Primary hypertension- Primary Unspecified essential hypertension Morbid (severe) obesity due to excess calories ([facility]) Type 2 diabetes mellitus without complication, with [...] essential hypertension Edema of both lower extremities penitentiary (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 (HCC) Morbid (severe) [...] both lower extremities documented in this encounter [facility] HealthcareEvaluation note* Diagnosis Onset Date Resolution Status Admit Date Chronic pain of right ankle acuteSept2024 3:00pmEdema of both lower extremitiesacuteSept2024 3:00pmLong term current use of insulinacuteSept2024 3:00pmMorbid (severe) obesity due to excess caloriesacuteSept2024 3:00pmPrimary hypertensionacuteSept2024 3:00pmType 2 diabetes mellitus with diabetic polyneuropathy, with long-term curreacuteSeptember 2024 3:00pm [facility] Work Phone: Evaluation note* Diagnosis Primary hypertension- Primary Unspecified essential [...] disease without esophagitis Esophageal reflux Mixed hyperlipidemia Type 2 diabetes mellitus without complication, with long-term current use of insulin (HCC) Primary hypertension Unspecified essential hypertension Hyperlipidemia, unspecified hyperlipidemia type Type 2 diabetes mellitus with diabetic polyneuropathy, with long-term current use of insulin (HCC)- Primary Resistant hypertension Gastroesophageal reflux disease without esophagitis Esophageal reflux Primary hypertension- Primary Unspecified essential hypertension Type 2 diabetes mellitus without complications (HCC) intermediate project manager (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 (HCC) Morbid (severe) obesity due to excess calories (CMS-HCC) Gastro-esophageal reflux disease without esophagitis Body mass index (BMI) 38.0-38.9, adult 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) Type 2 diabetes mellitus with diabetic polyneuropathy, with long-term current use of insulin (HCC) Severe persistent asthma without complication (HCC) Mixed hyperlipidemia Primary hypertension- Primary Unspecified essential [...] essential hypertension Edema of both lower extremities penitentiary (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 (HCC) Morbid (severe) [...] complication (HCC) Edema of both lower extremities Onychodystrophy- Primary Other specified disease of nail Onychomycosis Dermatophytosis of nail Type 2 diabetes mellitus with diabetic polyneuropathy, with long-term current use of insulin (HCC) documented [facility] encounter [facility] Author Sav Andrews [facility] December 22, 2021 9:32amNote Date/TimeJuly 2021 9:32[place] [address] Gastroenterology H&P Signed Patient: Lavern Dietz MR #: [id number] : 1965 Acct:[id number] Age/Sex: 56 / M Adm Date: 2 Loc: Room: Type: [facility] Attending Dr: Sav Andrews MD Copies to: MD Shaikh Samuel Souza MD~ Date of Service: 12/22/2021 HISTORY & PHYSICAL: Patient's history with special attention to the cardiovascular, pulmonary systems and the current problem was reviewed with the patient immediately prior to the procedure. Present medications and doses reviewed in the EMR. Allergies and pertinent laboratory tests were also re viewedat this time in the EMR. The physical [...] <Electronically signed by Sav Andrews MD> 12/22/21931 [facility] Work Phone: Reason for referral (narrative)* Consultation (Routine) - Pending ReviewSpecialtyDiagnoses / ProceduresReferred By Contact Referred To ContactPodiatry Diagnoses Type 2 diabetes mellitus with diabetic polyneuropathy, with long-term current use of insulin ([facility]) Procedures [place] OFFICE/OUTPATIENT NEW HIGH MDM 60 MINUTES Marquis Velasquez NP [address] [facility] [place] [address] Roberto Rita W, DPM [address] [place] [address] Referral IDStatusReasonStart DateExpiration DateVisits RequestedVisits [id number] Review Specialty Services Required / SELENA Evans for referral (narrative)No reason for referral information availableSelect [facility] Work Phone: Chief Complaint and Reason for Visit Chief Complaint Screening Screening Chief Complaint Hemorrhoids, Rectal Bleeding Chief Complaint Hemorrhoids, Rectal Bleeding Hemorrhoids, Rectal Bleeding Chief Complaint Admit Date 6W February 11, 2025 3:00pm Reason for Visit Admit Date Chronic pain of right ankle February 112024 3:00pm Edema of both lower [facility] 3:00pm intermediate project manager current use of insulin [facility] er 2024 3:00pm Morbid (severe) obesity due to excess ca lories February 11, 2025 3:00pm Primary hypertension February 11 3:00pm Type 2 diabetes mellitus wit h diabetic polyneuropathy, with long-term curre February 11, 2025 3:00pm Advance Directives Advance Directive Response Recorded Date/ Time Advance Directives No December 20 3:46pm Summary Purpose Family History Relationship Condition Age at Onset Recorded Date/T betty father Cerebrovascular accident (CVA) Unknown sisterType 2 diabetes mellitusUnknownNo Family History Records Found Additional Source Comments Care Teams (unrecognized sec tion and content) Team Status: Inactive Member Role Status Dates Sav Andrews MD Attending Provider Active Team Status: Inactive Member Role Status Dates Sav Andrews MD Attending Provider Active Hermelindo Vicente Care ProviderActive Team Status: Active Member Role Status Dates Shaikh Samuel MD Primary Care Provider Active Team Status: Inactive Member Role Status Dates Shaikh Samuel MD Primary Care Provider Active Serenity Cordoba ProviderActiveTeam MemberRelationshipSpecialtyStart DateEnd Date Antwan Perez MD [address] [place] [address] [facility]12/30/23 Marquis Velasquez NP [address] [place] [address] Nurse PractitionerWell[facility]12/30/23Team MemberRelationshipSpecialtyStart DateEnd Date Antwan Perez MD [address] [place] [address] PCP - [facility]12/30/23 Shaikh Baker MD [address] [place] [address] PCP - [facility] Fbkufztdkv43/1/24 Marquis Velasquez, TENNIS PLAYER [address] [place] [address] Nurse PractitionerWell[facility]12/30/23Team MemberRelationshipSpecialtyStart DateEnd Date Antwan Perez MD [address] [place] [address] PCP - [facility]12/30/23 Shaikh Baker MD [address] [place] [address] PCP - [facility] Uyaohxspui98/1/24 Marquis Velasquez NP [address] [place] [address] Nurse PractitionerWell[facility]12/30/23Team MemberRelationshipSpecialtyStart DateEnd Date Antwan Perez MD [address] [place] [address] PCP - [facility]12/30/23 Shaikh Baker MD [address] [place] [address] [facility] - [facility] Marquis Velasquez, MARIA FERNANDA [address] [place] [address] Nurse PractitionerWell[facility]12/30/23Team MemberRelationshipSpecialtyStart DateEnd Date Antwan Perez MD [address] [place] [address] PCP - [facility]Well[facility]12/30/23 Marquis Velasquez, MARIA FERNANDA [address] [place] [address] Nurse PractitionerWell[facility]12/30/23Team MemberRelationshipSpecialtyStart DateEnd Date Antwan Perez MD [address] [place] [address] PCP - Generalmi Medicine12/30/23 Marquis Velasquez NP [address] [place] [address] Nurse PractitionerWell[facility]12/30/23Team MemberRelationshipSpecialtyStart DateEnd Date Antwan Perez MD [address] [place] [address] PCP - [facility]12/30/23 Marquis Velasquez NP [address] [place] [address] Nurse PractitionerWell[facility]12/30/23Team MemberRelationshipSpecialtyStart DateEnd Date Antwan Perez MD [address] [place] [address] PCP - [facility]Well[facility]12/30/23 Marquis Velasquez, MARIA FERNANDA [address] [place] [address] Nurse PractitionerWell[facility]12/30/23Team MemberRelationshipSpecialtyStart DateEnd Date Antwan Perez MD [address] [place] [address] [facility] - [facility]12/30/23 Marquis Velasquez NP [address] [place] [address] Nurse [facility]erChi [facility]12/30/23Team MemberRelationshipSpecialtyStart DateEnd Date Antwan Perez MD [address] [place] [address] PCP - [facility]Chi [facility]12/30/23 Shaikh Baker MD [address] [place] [address] PCP - [facility] Lezdpotnfj99/1/24 Marquis Velasquez NP [address] [place] [address] Nurse Pract[facility]12/30/23Team MemberRelationshipSpecialtyStart DateEnd Date Antwan Perez MD [address] [place] [address] PCP - [facility]12/30/23 Shaikh Baker MD [address] [place] [address] PCP - [facility] Gjubznxrvi15/1/24 Marquis Velasquez, MARIA FERNANDA [address] [place] [address] [facility]12/30/23Team MemberRelationshipSpecialtyStart DateEnd Date Antwan Perez MD [address] [place] [address] PCP - GeneralFamily Medicine12/30/23 Shaikh Baker MD [address] [place] [address] PCP - [facility] Pmvrvewvut05/1/24 Marquis Velasquez, TENNIS PLAYER [address] [place] [address] Nurse Practitionermily Medicine12/30/23Team MemberRelationshipSpecialtyStart DateEnd Date Antwan Perez MD [address] [place] [address] PCP - Generalmily Medicine12/30/23 Shaikh Baker MD [address] [place] [address] PCP - [facility] Psnezcukfk11/1/24 Marquis Velasquez NP [address] [place] [address] [facility]erChi [facility]12/30/23Team MemberRelationshipSpecialtyStart DateEnd Date Antwan Perez MD [address] [place] [address] PCP - Generalmily Medicine12/30/23 Shaikh Baker MD [address] [place] [address] PCP - [facility] Bjkjeguvbt84/1/24 Marquis Velasquez NP [address] [place] [address] Nurse [facility]12/30/23Team MemberRelationshipSpecialtyStart DateEnd Date Antwan Perez MD [address] [place] [address] PCP - [facility]Chi [facility]12/30/23 Shaikh Baker MD [address] [place] [address] PCP - [facility] Smkfgwelsi45/1/24 Marquis Velasquez NP [address] [place] [address] [facility]12/30/23Team MemberRelationshipSpecialtyStart DateEnd Date Antwan Perez MD [address] [place] [address] PCP - [facility]Chi [facility]12/30/23 Shaikh Baker MD [address] [place] [address] PCP - [facility] Ylnrgsrzzm68/1/24 Marquis Velasquez NP [address] [place] [address] Nurse [facility]12/30/23Team MemberRelationshipSpecialtyStart DateEnd Date Antwan Perez MD [address] [place] [address] PCP - [facility]12/30/23 Shaikh Baker MD [address] [place] [address] P[facility] - [facility]02/25/24 Marquis Velasquez NP [address] [place] [address] Nurse PractitionerWell[facility]12/30/23Team MemberRelationshipSpecialtyStart DateEnd Date Antwan Perez MD [address] [place] [address] PCP - [facility]12/30/23 Marquis Velasquez NP [address] [place] [address] Nurse Pract[facility]erWell[facility]12/30/23Team MemberRelationshipSpecialtyStart DateEnd Date Antwan Perez MD [address] [place] [address] PCP - [facility]12/30/23 Marquis Velasquez NP [address] [place] [address] Nurse Pract[facility]er[facility]12/30/23Team MemberRelationshipSpecialtyStart DateEnd Date Antwan Perez MD [address] [place] [address] PCP - [facility]12/30/23 Marquis Velasquez NP [address] [place] [address] Nurse Practitionermily Medicine12/30/23Team MemberRelationshipSpecialtyStart DateEnd Date Antwan Perez MD [address] [place] [address] PCP - GeneralFamily Medicine12/30/23 Marquis Velasquez, MARIA FERNANDA [address] [place] [address] [facility]12/30/23Team MemberRelationshipSpecialtyStart DateEnd Date Antwan Perez MD [address] [place] [address] PCP - Generalmi Medicine12/30/23 Marquis Velasquez NP [address] [place] [address] [facility]12/30/23Team MemberRelationshipSpecialtyStart DateEnd Date Antwan Perez MD [address] [place] [address] PCP - GeneralFamily Medicine12/30/23 Marquis Velasquez, MARIA FERNANDA [address] [place] [address] [facility]12/30/23Team MemberRelationshipSpecialtyStart DateEnd Date Antwan Perez MD [address] [place] [address] PCP - Generalmily Medicine12/30/23 Marquis Velasquez NP [address] [place] [address] Nurse Pract[facility]12/30/23Team MemberRelationshipSpecialtyStart DateEnd Date Antwan Perez MD [address] [place] [address] PCP - [facility]12/30/23 Marquis Velasquez NP [address] [place] [address] Nurse Pract[facility]12/30/23Team MemberRelationshipSpecialtyStart DateEnd Date Antwan Perez MD [address] [place] [address] PCP - [facility]12/30/23 Marquis Velasquez NP [address] [place] [address] Nurse [facility]12/30/23Team MemberRelationshipSpecialtyStart DateEnd Date Antwan Perez MD [address] [place] [address] PCP - [facility]12/30/23 Marquis Velasquez NP [address] [place] [address] Nurse [facility]12/30/23Team MemberRelationshipSpecialtyStart DateEnd Date Antwan Perez MD [address] [place] [address] PCP - [facility]12/30/23 Marquis Velasquez NP [address] [place] [address] [facility]12/30/23 Team Status: Active Member Role Status Dates Luci Rios TENNIS PLAYER-C Primary Care Provider Active Team Status: Inactive Member Role Status Dates Luci Rios NP-C Primary Care Provider Active Start: February 11, 2025 End: February 11, 2025Luci Rios NP-CAttending ProviderActiveStart: February 11, 2025 End: February 11, 2025Team MemberRelationshipSpecialtyStart DateEnd Date Antwan Perez MD [address] [place] [address] PCP - [facility]12/30/23 Luci Rios NP [address] [place] [address] Nurse [facility]02/23/25Team MemberRelationshipSpecialtyStart DateEnd Date Antwan Perez MD [address] [place] [address] [facility] - [facility]12/30/23 Luci Rios NP [address] [place] [address] Nurse [facility]02/23/25Team MemberRelationshipSpecialtyStart DateEnd Date Antwan Perez MD [address] [place] [address] PCP - GeneralFamily Medicine12/30/23 Shaikh Baker MD [address] [place] [address] PCP - [facility] Nyjiagercv65/1/244 Marquis Velasquez NP Nurse PractitionerFaazly Medicine Luci Rios NP [address] [place] [address] Nurse PractitionerFa[facility] Medicine02/23/25Team MemberRelationshipSpecialtyStart DateEnd Date Shaikh Baker MD PCP - GeneralInternal Medicine Antwan Perez MD [address] [place] [address] PCP - Generalmily Medicine12/30/23 Shaikh Baker MD [address] [place] [address] PCP - [facility] Dysjcmiuuq78/1/244 Marquis Velasquez NP Nurse PractitionerFa[facility] Medicine Luci Rios NP [address] [place] [address] Nurse PractitionerFamily Medicine02/23/25Team MemberRelationshipSpecialtyStart DateEnd Date Shaikh Baker MD PCP - GeneralInternal Medicine Shaikh Baker MD PCP - GeneralInternal Medicine Antwan Perez MD [address] [place] [address] [facility] - [facility]12/30/23 Shaikh Baker MD [address] [place] [address] PCP - [facility] Abzrgnrizp95/1/244 Marquis Velasquez NP [facility] Luci Rios NP [address] [place] [address] [facility]02/23/25Team MemberRelationshipSpecialtyStart DateEnd Date Antwan Perez MD [address] [place] [address] PCP - [facility]12/30/23 Shaikh Baker MD [address] [place] [address] PCP - Johanna Sgbmbvlktx68/1/244 Marquis Velasquez NP [facility] Luci Rios NP [address] [place] [address] Nurse PractitionerFamily Medicine02/23/25 (unrecognized sect ion and content) No Status Records FoundNo Status Records FoundNo Status Records Found INFORMATION SOURCE (unrecogn ized section and content) DATE CREATED AUTHOR 07/14/2022 [facility] DATE CREATED AUTHOR AUTHOR'S ORGANIZ ATION 10/02/2022 [facility] DATE CREATED AUTHOR AUTHOR'S ORGANIZ ATION 03/01/2025 [facility] EPIC Goals (unrecognized section and content) Goals may be documented in a n alternate sectionGoals may be documented in an alternate section Reason for Visit (unrecogniz ed section and content) ReasonOnset DateCommentsMed Bvnndv624ReasonCommentsFollow-upMed Refills ReasonOnset DateCommentsMed Rfzoae404ReasonCommentsFollow-up3MO,[facility] WAS GIVEN STEROID AND CREAM. PT HAS BEEN DONE FOR ONE WEEK, BUT RASH IS STILL PRESENT AND BLISTERING.ReasonCommentsDM Foot CareCruz Godinez Dewey 59yo male, New Patient presents with referral from Marquis Velasquez for diabetic nail care and polyneuropathy.Patient relates his nails are thick and difficult to trim. BS 01/22/2024 A1C SS 9.5SpecialtyDiagnoses / ProceduresReferred By ContactReferred To ContactPodiatry Diagnoses Type 2 diabetes mellitus with diabetic polyneuropathy, with long-term current use of insulin ([facility]) Procedures [place] OFFICE/OUTPATIENT NEW HIGH MDM 60 MINUTES Marquis Velasquez NP [address] [place] [address] Rita Mejia, DPM [address] [place] [address] Referral IDStatusReasonStart DateExpiration DateVisits RequestedVisits [id number] Specialty Services Required /[id number] RefillReasonCommentsDM Foot CarePCP: Luci SEO 08/18/24, A1C: 8.3, BS: 142ReasonCommentsHypertensionReasonComments DiabetesReasonCommentsDiabetesReasonCommentsDiabetic foot checkCruz Herbert Dewey is a 60 y.o. male who presents for DM Foot Care PCP: Luci SEO 02/11/25,A1C: 8.3, BS: 175 FOR RECORDS PERTAINING TO PATIENTS WHO ARE [...] BE BASED ON THE PRIMARY CLINICAL RECORDS. [facility] [email or web address] [facility]. provides no warranty or guarantee of the accuracy or completeness of information in this document.
--- OUTSIDE RECORDS SUMMARY | 2025-04-28 15:05 | XMS_ITS | Clinical Summary ---
Author Organization [facility] Address [address] [place] [address] Care Team Providers Care Education Liaison Name Role Phone Unavailable Primary Care Provider Unavailabl e Social History Tobacco UseTypesPacks/DayYears UsedDateSmoking Tobacco: Never AssessedUT Safety & EnvironmentAnswerDate RecordedFear of Current or Ex-PartnerNot on file 07/18/2023Emotionally AbusedNot on file07/18/2023hysically AbusedNot on file 07/18/2023Sexually AbusedNot on file07/18/2023hysically or Sexually AbusedNot on file07/18/2023Sex and Gender InformationValueDate RecordedSex Assigned at BirthNot on fileLegal XkzAlsl1911/23/2021 12:38 AM EDTGender IdentityNot on file Sexual OrientationNot on file Plan of Treatment Not on file
--- OUTSIDE RECORDS SUMMARY | 2025-04-28 15:05 | XMS_ITS | Patient Health Record ---
Author Organization [facility] Address [address] [address], [place] [address] Care Team Providers Care Yardage Estimator Name Role Phone Bharath Perez Unavailable [phone] Allergies No Known Allergies Reason For Referral No Information Medications Medication SIG (Take, Route, Frequency, Duration) Notes Start Date End Date Status Meloxicam 15 MG Tablet 1 tablet Orally Once a da y ActiveCalcium 500 MG Tablet1 tablet with meals Orally Twice a dayActivemetFORMIN HCl 850 MG TabletOral; Duration: 90 DaysActiveVitamin K2ImgfskXzhumevz Potassium-HCTZ 100-25 MG TabletOral; Duration: 90 DaysActiveFish OilActive Albuterol Sulfate HFA 108 (90 Base) MCG/ACT Aerosol SolutionInhalation; Duration: 50 DaysActiveLevemirActiveCoreg 25 MG Tablet1 tablet with food Orally Twice a dayActiveTrelegy Ellipta 200-62.5-25 MCG/ACT Aerosol Powder Breath ActivatedInhalation; Duration: 30 DaysActiveOmeprazole 40 MG Capsule Delayed ReleaseTAKE 1 CAPSULE BY MOUTH IN THE MORNING BEFORE MEAL(S) Oral; Duration: 30 DaysActiveAtorvastatin Calcium 40 MG TabletTAKE 1 TABLET BY MOUTH ONCE DAILY Oral; Duration: 90 DaysActiveCarvedilol 25 MG Tablet1 tablet with food Orally Twice a dayActive Problems Problem Type SNOMED Code ICD Code Onset Dates Problem Status W/U Status Risk Notes Problem Other osteonecrosis, 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)Activeconfirmed Encounters Encounter Location Date Provider Diagnosis [employer] [facility] [address] [address], [place] [address] 11/30/2024 Bharath Perez Arthritis of right ankle M19.071 and Other osteonecrosis, right ankle M87.871 Assessments Encounter Date Diagnosis (ICD Code) Assessment Notes Treatment Notes Treatment Clinical Notes Section Notes 11/30/2024 Other osteonecrosis, right ankle (ICD-10 - M87.871) 11/30/2024rthritis of right ankle (ICD-10 - M19.071) Mr Herbert Dewey presents for his right ankle which is painful on a daily basis consistent with post-static dykinesia. His pain does not limit him and he relates is tremendously better since undergoing fusion in 2022. I reviewed xrays which were obtained today and compared them to films obtainedlast year. There has been progression in bony fusion of the ankle/STJ adjacent to his 3D printed talar cage and all hardware remains stable. He may take OTC tylenol/ibuprofen prn as well as recommended RICE therapy. I do not have any restrictions for him. At follow up I would like WB ankle xrays. Plan Of Treatment Next Appt Details Provider Name:Bharath ortega, 06/14/2025 03:30:00 PM, [address] [facility], [address], [address], [place], [address], Insurance Providers Payer Name Payer Address Payer Phone Subscriber Number Group Number Insured Name Patient Relationship to Insured Coverage Start Date Coverage End Date [facility] [address] [place] [address] [id number] Herbert DeweyShanel - patient is the insured Medical (General) History Medical History History ICD Code Asthma DiabetesHigh Blood PressureRefluxHyperlipidemiaSurgical History Surgery Date(Month/Year) Right Total Talus 2019 Right Ankle Arthroscopy 2020 Right Ankle SJF, removal of hardware, le ngthening Achilles 2022
--- OUTSIDE RECORDS SUMMARY | 2025-04-28 15:05 | XMS_ITS | Patient Health Record ---
Author Organization [facility] [place] Address [address] [place] [address] Care Team Providers Care Ticket Printer Name Role Phone Luci Rios CNP Primary Care Provider Unavail able Bharath Perez Unavailable [phone] Durbin Unavailable [phone] Allergies No Known Allergies Reason For Referral No Information Medications Medication SIG (Take, Route, Frequency, Duration) Notes Start Date End Date Status EQ Vegetable Laxative 8.6 MG Oral; Duration: 7 D ays ActiveCoreg 25 MG1 tablet with food Orally Twice a dayActiveCarvedilol 25 MG Oral; Duration: 90 DaysActiveCalcium 500 MG1 tablet with meals Orally daily; Duration: 90 days04/17/2023ctiveMeloxicam 15 MGTAKE 1 TABLET BY MOUTH ONCE DAILY NEEDED FOR PAIN; Duration: 30ActiveLosartan Potassium-HCTZ 100-25 MG1 tablet Orally Once a dayActiveLevemir FlexTouch 100 UNIT/MLas directed SubcutaneousActiveFish Oil 1200 MG1 capsule Orally Once a dayActiveVitamin D3 Maximum Strength 125 MCG (5000 UT)Oral; Duration: 90 DaysActiveAtorvastatin Calcium 40 MG1 tablet Orally Once a dayActiveTrelegy Ellipta 100-62.5-25 MCG/ACT 1 puff Inhalation QD; Duration: 90 daysRinse after useActiveOmeprazole 40 MG1 capsule 30 minutes before morning meal Orally Once a dayActiveAlbuterol Sulfate HFA 108 (90 Base) MCG/ACT2 puffs as needed for SOB Inhalation Q4H; Duration: 90 daysActivemetFORMIN HCl 850 MG1 tablet with a meal Orally Once a dayActive Immunizations Vaccine Route Administration Date Status Comme nts Capvaxive Pneumococcal 21 0. 5mL pre-filled syringe Unknown 05/28/2024 Administered Flu, (60351) -historic- QqmknPpniyfq65/02/2025AdministeredFlu, Unspecified Wdaxbkv3903/13/20224257GragopalinfaEJLY-ZKK-1 (COVID 19 Pfizer 30mcg/0.3mL)Unknown 1AdministeredTdap (Boostrix)Hqqhffc3703/23/2022dministeredZOSTER (SHINGLES) VACCINE (HZV)Jsnkwms8603/23/2022dministered Social History Tobacco Use: Social History Observation Description Date Details (start date - stop date) Former Smoker NA - NA Tobacco Control (Standard) Question Answer Notes Tobacco use: Former smoker How long has it been since you last smoked?Greater than 10 yearsAdditional Findings: Tobacco wlm-gyujMg-xiap heavy cigarette smoker (40+/day) Problems Problem Type SNOMED Code ICD Code Onset Dates Problem Status W/U Status Risk Notes Problem Obesity (971681846) Obesity, unspecified (E66.9) ActiveconfirmedProblemUncomplicated severe persistent asthma (220648630)Severe persistent asthma, uncomplicated (J45.50)ActiveconfirmedPrior inhalers: Trelegy 200 > Symbicort 160 > FloventProblemLocalized, primary osteoarthritis of the ankle and/or foot (373298268)Primary osteoarthritis, right ankle and foot (M19.071)ActiveconfirmedProblemIdiopathic aseptic necrosis of unspecified bone (M87.00)ActiveconfirmedProblemIdiopathic aseptic necrosis of right ankle (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)ActiveconfirmedProblemLong-term current use of inhaled steroid (278789015)nursing home (current) use of inhaled steroids (Z79.51)Activeconfirmed Problem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)ActiveconfirmedProblem Hypertension (87125960)Hypertension (I10)ActiveconfirmedProblemAsthma (682850898)Asthma (J45.909)ActiveconfirmedProblemGastroesophageal reflux disease (803094382)GERD (gastroesophageal reflux disease) (K21.9)ActiveconfirmedProblem Arthralgia of the ankle and/or foot (007725753)Right ankle pain (M25.571)Active confirmedProblemAcquired equinus deformity of right foot (M21.6X1)Active confirmedProblemDiabetes mellitus type 2 (03529848)Diabetes mellitus type 2, uncomplicated (E11.9)ActiveconfirmedProblemLocalized, primary osteoarthritis of the ankle and/or foot (184569825)Osteoarthritis of right ankle (M19.071)Active confirmedProblemDiabetic autonomic neuropathy due to type 2 diabetes mellitus (321494556)Type 2 diabetes mellitus with peripheral neuropathy (E11.43)Active confirmedProblemAvascular necrosis of bone (575474419)Avascular necrosis of bone (M87.00)ActiveconfirmedProblem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)Active confirmedProblemDiabetes mellitus (78855509)Diabetes mellitus (E11.9)Active confirmedProblemBody mass index 35.00 to 39.99 (627770986400547)Body mass index [BMI] 39.0-39.9, adult (Z68.39)ActiveconfirmedProblemPeripheral eosinophilia (D72.19)Activeconfirmed Vital Signs Heart Rate 60 /min 08/04/2024 Pikkjggdciw12.1 degrees Enrpqkfheh23/11/2025Respiratory Rate18 /min08/04/2024 Ydsirrnm48 %08/04/2024lood pressure joycjgnfi61 mm Hg08/04/20244129Usffqj52 in 08/04/2024lood pressure baceioei962 mm Hg08/04/20248637Mphjsv998.6 lbs08/04/2024MI 37.37 kg/m208/04/2024 Encounters Encounter Location Date Provider Diagnosis Pulmonary Medicine [address] [address] 08/04/2024 [address] Severe persistent asthma, uncomplicated J45.50 ; Peripheral eosinophilia D72.19 ; Diabetes mellitus type 2, uncomplicated E11.9 ; nursing home (current) use of inhaled steroids Z79.51 and Obesity, unspecified E66.9 Pulmonary Medicine [place] [address] [place] [address] 08/03/2024 [facility] [address] [place] [address]/ [facility] Assessments Encounter Date Diagnosis (ICD Code) Assessment Notes Treatment Notes Treatment Clinical Notes Section Notes 08/04/2024 Severe persistent as thma, uncomplicated (ICD-10 - J45.50) Prior inhalers: Trelegy [...] declines would be to look into biologics. 08/04/2024Peripheral eosinophilia (ICD-10 - D72.19)08/04/2024Diabetes mellitus type 2, uncomplicated (ICD-10 - E11.9) Steroids prescribed for this patient's underlying pulmonary disease can adversely affect blood glucose levels, inducing hyperglycemia and worsening underlying diabetes. The patient is encouraged to follow up with the primary care provider to create a plan to manage diabetes in this situation. 08/04/2024Long term (current) use of inhaled steroids (ICD-10 - Z79.51) Patient was counseled to rinse & gargle with water after inhaled corticosteroid use. 08/04/2024Obesity, unspecified (ICD-10 - E66.9) He has gained some weight since last visit (235 on 03/26/2023 to 249 today). Weight loss indicated:Decrease calories, increase activity. Plan Of Treatment Pending Test Test Name Order Date XR Ankle RT (3 views) * (161) 01/16/2024 XR Ankle RT (3 views) * (161) 04/15/2024 XR ankle RT min 3V 01/17/2024 XR ankle RT min 3V 04/17/2024 Insurance Providers Payer Name Payer Address Payer Phone Subscriber Number Group Number Insured Name Patient Relationship to Insured Coverage Start Date Coverage End Date [employer] [address] [place] [address] [phone] [id number] Dante Dietz Self - patient is the insured [id number] [...]
--- OUTSIDE RECORDS SUMMARY | 2025-04-28 15:06 | XMS_ITS | Clinical Summary ---
Author Organization [facility] Healthcare Address [address] [place] [address] Care Team Providers [facility] Executive Director Name Role Phone Antwan Perez MD Primary Care Provider [phone] Luci Rios HEALTH SCIENCE INSTRUCTOR Unavailable [phone] Allergies No known active allergies Medications MedicationSigDispense QuantityRefillsLast FilledStart DateEnd DateStatus aspirin 81 MG chewable tablet Indications:Hyperlipidemia, unspecified hyperlipidemia typeChew 1 tablet (81 mg) in the morning. 30 tablet 4Active albuterol HFA 90 mcg/act inhaler Indications:Severe persistent asthma without complication (HCC)Inhale 2 puffs every 4 (four) hours if needed for shortness of breath 18 g 5Active amLODIPine (Norvasc) 10 MG tablet Indications:Primary hypertensionTake 1 tablet (10 mg) by mouth Daily 90 tablet 5Active atorvastatin (Lipitor) 40 MG tablet Indications:Hyperlipidemia, unspecified hyperlipidemia typeTake 1 tablet (40 mg) by mouth Daily 90 tablet 5Active carvedilol (Coreg) 25 MG tablet Indications:Resistant hypertensionTake 1 tablet (25 mg) by mouth in the morning and 1 tablet (25 mg) in the evening. Take with meals. 180 tablet 5Active dapagliflozin (Farxiga) 5 MG Indications:Type 2 diabetes mellitus without complications (HCC)Take 1 tablet (5 mg) by mouth Daily 90 tablet 5Active Qwseoofnfjp-Kzjwsukdj-Lvjnsm (Trelegy Ellipta) 200-62.5-25 MCG/ACT aerosol powder Indications:Severe persistent asthma without complication (HCC)Inhale 1 puff Daily INHALE 1 PUFF ONCE DAILY, rinse mouth after use 1 each 5Active glipiZIDE (Glucotrol) 5 MG tablet Indications:Type 2 diabetes mellitus with diabetic polyneuropathy, with long- term current use of insulin (HCC)Take 1 tablet (5 mg) by mouth in the morning and 1 tablet (5 mg) in the evening. Take before meals. 180 tablet tive insulin pen needle (B-D ULTRAFINE III SHORT PEN) 31G X 8 mm [facility] [place] Indications:Type 2 diabetes mellitus with diabetic polyneuropathy, with long- term current use of insulin (HCC)Daily 100 each //6Active losartan-hydroCHLOROthiazide (Hyzaar) 100-25 MG tablet Indications:Primary hypertensionTake 1 tablet by mouth Daily 90 tablet tive metFORMIN (Glucophage) 850 MG tablet Indications:Hyperlipidemia, unspecified hyperlipidemia typeTake 1 tablet (850 mg) by mouth in the morning and 1 tablet (850 mg) in the evening. Take with meals. 180 tablet tive omeprazole (PriLOSEC) [address] capsule Indications:Gastroesophageal reflux disease without esophagitisTake 1 capsule (40 mg) by mouth in the morning. Take before meals. 90 capsule 5Active spironolactone (Aldactone) 50 MG tablet Indications:Resistant hypertensionTake 1 tablet (50 mg) by mouth Daily 90 tablet tive insulin glargine (Lantus SoloStar) 100 UNIT/ML pen Indications:Type 2 diabetes mellitus without complication, with long-term current use of insulin ([facility])Inject 20 Units under the skin at bedtime 18 mL 5Active Active Problems ProblemNoted DateDiagnosed DateChronic pain of right ankle12/31/2024 Assessment & Plan (12/31/2024 5:09 PM EDT): Attempted to call Dr Perez's office they were closed Will send for xray and venous doppler to r/o DVT Elevated serum cyezylytdy20/26/2025 Assessment & Plan (10/08/2024 4:18 PM EDT): Recheck labs, still has not heard anything about renal US at [facility] We will refax Edema of both lower iskesfgvyno83/25/2025 Assessment & Plan (12/31/2024 6:52 AM EDT): Current meds: aldactone, hydrochlorothiazide in losartan Assessment & Plan (10/08/2024 7:08 AM EDT): Current meds: aldactone, hydrochlorothiazide in losartan Assessment & Plan (08/18/2024 4:18 PM EDT): improved Type 2 diabetes mellitus without shbedtghbxouz79/05/2025 Assessment & Plan (12/31/2024 6:51 AM EDT): [...] no contraindications for that A1c 8.3% 07/18/24 terminologist (current) use of pwekrvu0707/29/2024 Assessment & Plan (07/29/2024 7:44 AM EST): Continue with insulin Morbid (severe) obesity due to excess xjwixsvx31/05/2025 Assessment & Plan (12/31/2024 6:51 AM EDT): [...] sugary drinks. Body mass index (BMI) 38.0-38.9, adult07/29/2024Idiopathic aseptic necrosis of right foot07/29/2024 Assessment & Plan (07/29/2024 7:42 AM EST): Has seen podiatry in the past Primary qvynzrwydwou33/05/2025 Assessment & Plan (12/31/2024 6:50 AM EDT): [...] blood pressure in 2 weeks-currently no symptoms Eivpmnqqqoejpg31/30/2024 Assessment & Plan (07/29/2024 7:44 AM EST): On statin therapy Check labs yearly, and prn dose changes Assessment & Plan (04/27/2024 3:24 PM EST): Atorvastatin 40mg Denies myalgias Continue current regimen. Assessment & Plan (01/22/2024 4:27 PM EDT): Atorvastatin 40mg Denies myalgias Continue current regimen. Assessment & Plan (10/24/2023 3:17 PM EDT): On lipitor 40 mg. Check lipid panel Grade II internal hmebysunaar95/13/2024Type 2 diabetes mellitus with diabetic polyneuropathy, with long-term current use of akculxb2508/07/2023 Assessment & Plan (12/31/2024 6:50 AM EDT): [...] andbegan drinking more water and protein shakes. Assessment [...] and will review his blood glucose and adjustmeds as needed Assessment & Plan (08/07/2023 4:01 PM EDT): Poorly controlled - reports his blood glucose have been poorly controlled. He reports his FSBS havebeen persistently above 250 He is currently on Metformin, Januvia and Levemir. I will increase his insulin to 25 units from 15 units daily Will order labs. Follow up in one month Patient instructed to bring home glucose log next appt. Severe persistent asthma without tnrvqartkuqu72/13/2024 Assessment & Plan (12/31/2024 6:52 AM EDT): [...] shortness of breath. Gastro-esophageal reflux disease without ohcatnaqjzk43/13/2024 Assessment & Plan (07/29/2024 7:42 AM EST): Recommendations: freq small meals, nothing to eat or drink at least 2 hours prior to bed, limit caffeine, alcohol, as well as spicy foods Meds to limit or avoid if possible: NSAIDS Elevate HOB if possible Med: omeprazole Resolved Problems ProblemNoted DateDiagnosed DateResolved DateResistant ymfyvxjdcesr61/13/2024 07/29/2024 Assessment & Plan (04/27/2024 3:25 PM EST): [...] on coreg, losartan-hydrochlorothiazide, amlodipine. Last appt, started onaldactone - follow up BMP - normal cr, [...] his home BP log next appt. Other vtuqrdukkhcboh08/13/202403/09/2024 Assessment & Plan (08/07/2023 4:02 PM EDT): On lipitor, check lipid panel Encounters DateTypeDepartmentCare JgdlQdwpqdnndue90/30/2025 3:15 PM EDTProcedure Visit [facility] [address] [place] [phone] Abisai Boateng DPM Onychodystrophy (Primary Dx); Onychomycosis; Type 2 diabetes mellitus with diabetic polyneuropathy, with long-term current use of insulin (HCC)02/23/2025amboo flowsheet [facility] [address] [place] [phone] Abisai Boateng DPM 02/23/20253705Ugcyvc83/29/2025Travelfrom Last 3 Months Immunizations ImmunizationAdministration DatesNext DueInfluenza, injectable, MDCK, preservative free, xponxrmxgzak43/15/2021,02/17/2020Influenza, injectable, quadrivalent, preservative free03/12/2017Influenza, seasonal, injectable 03/13/2022,03/09/2019Influenza, seasonal, injectable, preservative free 05/28/2024MMR05/28/2024Pneumococcal conjugate vaccine, 21 valent (PCV21), polysaccharide PVP161 conjugate, preservative free05/28/2024Tdap1 Zoster, Elfaktromjp08/28/2022 Family History Medical HistoryRelationNameCommentsStrokeFatherJose RoblesDiabetesSisterChavela RoblesRelationNameStatusCommentsFatherJose RoblesSisterChavela Godinez Social History Tobacco UseTypesPacks/DayYears UsedDateSmoking Tobacco: FormerCigarettesPassive Smoke Exposure: PastSmokeless Tobacco: Never Tobacco Cessation:Counseling Given: Not Answered Alcohol UseStandard Drinks/WeekCommentsNever0 (1 standard drink = 0.6 oz pure alcohol)B1300 Health LiteracyAnswerDate RecordedHow often do you need to have someone help you when you read instructions, pamphlets, or other written material from your doctor or pharmacy?Wqzmtlfkx39/27/2024Social Connection and Isolation PanelAnswerDate RecordedIn a typical week, how many times do you talk on the phone with family, friends, or neighbors?More than three times a week 01/21/2024How often do you get together with friends or relatives?Never 01/21/2024How often do you attend anabaptism or jain services?More than 4 times per year01/21/2024o you belong to any clubs or organizations such as anabaptism groups, unions, fraternal or athletic groups, or school groups?Yes01/21/2024 Attends Club or Organization MeetingsNot on file01/21/2024Marital StatusNot on file01/21/2024UDIT-CAnswerDate RecordedQ1: How often do you have a drink containing alcohol?Never01/21/2024Q2: How many drinks containing alcohol do you have on a typical day when you are drinking?Patient does not drink01/21/2024Q3: How often do you have six or more drinks on one occasion?Never01/21/2024Overall Financial Resource Strain (CARDIA)AnswerDate RecordedHow hard is it for you to pay for the very basics like food, housing, medical care, and heating?Not very hard01/21/2024HQ-2AnswerDate RecordedPatient Health Questionnaire-2 Score0 10/24/2023[place] [facility] of Occupational Health - Occupational Stress QuestionnaireAnswerDate RecordedDo you feel stress - tense, restless, nervous, or anxious, or unable to sleep at night because yourmind is troubled all the time - these days?Not at all01/21/2024Exercise Vital SignAnswerDate RecordedOn average, how many days per week do you engage in moderate to strenuous exercise (like a brisk walk)?Patient /27/2024On average, how many minutes do you engage in exercise at this level?Patient ezjiklpc20/27/2024Hunger Vital Sign AnswerDate RecordedWithin the past 12 months, you worried that your food would run out before you got the money to buymore.Never true01/21/2024Within the past 12 months, the food you bought just didn't last and you didn't have money to get more.Never true01/21/2024RAPARE - TransportationAnswerDate RecordedIn the past 12 months, has lack of transportation kept you from medical appointments or from getting medications?No01/21/2024In the past 12 months, has lack of transportation kept you from meetings, work, or from getting things needed for daily living?No01/21/2024Housing Stability Vital SignAnswerDate RecordedIn the last 12 months, was there a time when you were not able to pay the mortgage or rent on time?No01/21/2024In the past 12 months, how many times have you moved where you were living?t any time in the past 12 months, were you homeless or living in a halfway (including now)?No01/21/2024Sex and Gender InformationValueDate RecordedSex Assigned at BirthNot on fileLegal SexMale 08/08/2022 11:39 PM EDTGender IdentityNot on fileSexual OrientationNot on file Last Filed Vital Signs Vital SignReadingTime TakenCommentsBlood Nlwkjtjs313/7808 3:54 PM EDT Aehxk625112/31/2024 3:54 PM OJNBwatycixtdu47.6 ??C (97.8 ??F)12/31/2024 3:54 PM EDTRespiratory Abbj835612/31/2024 3:54 PM EDTOxygen Vehzulenng60%12/31/2024 3:54 PM EDTInhaled Oxygen Concentration--Ueccuh105 kg (243 lb)02/23/2025 3:23 PM EDT Fzelwu570.6 cm (5' 6 )02/23/2025 3:23 PM EDTBody Mass Index39.22002/23/2025 3:23 PM EDT Plan of Treatment DateTypeDepartmentCare Team (Latest Contact Info)Qusnzmjaymk20/30/2026 3:15 PM EDTProcedure Visit [facility] [address] [place] [phone] Abisai Boateng, VAL [address] [place] [address] Health MaintenanceDue DateLast DoneCommentsCT Zjzvntuoumkx1966FIT-DNA 1965FIT1965FOBT1965 3396Vxtphvpwjrljj1966COVID-19 Vaccine (2024- season)/, 09/19/2020Influenza Vaccine (#1) 501/06/2024, 03/13/2022, 05/10/2021, Additional history exists Axcjufzfzya48/06/692293/10/2024, 01/26/2022, 2Colorectal Cancer Vtfuddcib33/06/2035Pneumococcal Vaccine: Pediatrics (0 to 5 Years) and At-Risk Patients (6 to 64 Years)Aged OutNo longer eligible based on patient's age to complete this topic Procedures Procedure NamePriorityDate/TimeAssociated DiagnosisCommentsCOLONOSCOPY LASVAKRCTBNqbwqtw82/06/2025 9:25 AM ESTfrom Last 3 Months or Most Recently Relevant to Health Maintenance Results * COLONOSCOPY DIAGNOSTIC (07/30/2024 9:25 AM EST)Anatomical RegionLaterality ModalityRadiographic Imaging Narrative Authorizing ProviderResult TypeResult StatusCamdominik Andrews MDIMG XR PROCEDURES Final Result from Last 3 Months or Most Recently Relevant to Health Maintenance Insurance * Guarantor: Dante DietzAccount TypeRelation to PatientDate of PhoneBilling AddressPersonal/MeqdiiCijb[address] [facility] [place] [address] Care Teams Team MemberRelationshipSpecialtyStart DateEnd Date Antwan Perez MD [address] [place] [phone] PCP - GeneralFacoly Medicine12/30/23 Luci Rios NP [address] [place] [phone] Nurse PractitionerDoctors Hospital Of Augusta02/23/25
--- NOTE | 2025-04-28 15:30 | CA_ITS ---
Patient Name: LAVERN GARCIA MR#: [id number] : 1965 Exam Date: 04/28/2025 Ordering Doctor: JAMEL GILBERT CNP ECHOCARDIOGRAM REPORT PROCEDURE: CA ECHO DOPPLER COMPLETE INDICATIONS: Chest pain, HTN, DMII COMPARISON: None. DESCRIPTION: COMPLETE ECHOCARDIOGRAM Real-time transthoracic echocardiography with 2D, M-mode, spectral and color flow Doppler performed. QUALITY: Technical quality was good. LEFT VENTRICLE: Normal chamber size. Normal left ventricular wall thickness. Systolic function is normal. Estimated left ventricular ejection fraction is 60%. LV EF: Normal left ventricular ejection fraction, (>55%). DIASTOLIC: Normal diastolic function. ATRIAL SEPTUM: LEFT ATRIUM: Mild dilatation. RIGHT ATRIUM: Mild dilatation. RIGHT VENTRICLE: Normal chamber size. Normal right ventricular systolic function. TRICUSPID VALVE: Normal mobility and thickness. No stenosis with trivial regurgitation. No evidence of pulmonary hypertension. RVSP 18 mmHg MITRAL VALVE: Normal mobility and thickness. No evidence of mitral valve stenosis. There is no mitral annular calcification. No mitral regurgitation. AORTIC VALVE: Normal trileaflet appearance. No visible sclerosis. Normal leaflet mobility. No evidence of aortic valve stenosis. No aortic regurgitation. AORTIC ROOT: Normal diameter and appearance, measuring 3.4 cm. Ascending aorta is normal in size, measuring 3.4 cm. PULMONIC VALVE: Normal thickness and mobility. No stenosis. Trivial regurgitation. PERICARDIUM: No evidence of pericardial effusion. IVC: Collapses with inspiration. PLEURA: CONCLUSION: 1. Normal left ventricular size and systolic function. Estimated LVEF is 60%. 2. Normal right ventricular size and systolic function. 3. Normal diastolic function. 4. Mild biatrial dilatation. 5. No significant valvular dysfunction. 6. Normal right-sided pressures. Adult Echocardiography Procedure Report Left Ventricle LVEDD (3.7 - 5.6 cm): 5.54 cm LVESD (2.2 - 4.0 cm): 3.37 cm LVIVS thickness (0.6 - 1.2 cm): 1.03 cm LVPW thickness (0.5 - 1.0 cm): 1.09 cm e': 0.10 m/s E - e': 8.10 LVOT Max Gradient: 4.35 mm[Hg] LVOT Area (cm2): 1.04 m/s Peak Velocity (LVOT): 1.04 m/s Mean Velocity (LVOT): 0.69 m/s LVOT Diameter 1.92 cm Left Ventricular Ejection Fraction: 60 % Left Atrium LA Volume Index (2D A2C): 41.22 ml/m2 Left Atrium Systolic Dimension: 4.20 cm Mitral Valve MV E to A Ratio: 1.14 Mitral Valve A-Wave Peak Velocity: 0.71 m/s Mitral Valve E-Wave Peak Velocity: 0.81 m/s Right Ventricle Aorta AO Root Diam: 3.42 cm Ascending Ao Diam: 3.39 cm Aortic Valve AoV Area (Peak Wang): 1.88 cm2, 1.88 cm2 AoV Area (VTI): 1.91 cm2, 1.91 cm2 Peak Velocity(Antegrade Flow): 1.61 m/s Peak Gradient(Antegrade Flow): 10.38 mm[Hg] Mean Velocity(Antegrade Flow): 0.99 m/s Mean Gradient(Antegrade Flow): 4.73 mm[Hg] Velocity Time Integral: 37.94 cm Tricuspid Valve Peak Velocity (Regurgitant Flow): 1.95 m/s Pulmonic Valve Mean Gradient: 4.06 mm[Hg] Mean Velocity: 0.92 m/s Peak Velocity: 1.55 m/s Peak Gradient: 9.58 mm[Hg] Right Atrium Right Atrium Systolic Pressure: 60.15 ml, 60.15 ml Dictated by: Quinten Donnelly M.D. on 04/28/2025 at 19:09 Approved by: Quinten Donnelly M.D. on 04/28/2025 at 19:13
== END 2025-04-28 15:00 | disposition home or self-care (01) ==
LOC: CARD 15:00
PROVIDERS: PCP Nurse Practitioner; Visit Provider Nurse Practitioner
DX: E07.9 Disorder of thyroid, unspecified (principal); I10 Essential (primary) hypertension; E11.42 Type 2 diabetes mellitus with diabetic polyneuropathy; Z79.4 Long term (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; I45.19 Other right bundle-branch block; R94.31 Abnormal electrocardiogram [ECG] [EKG]
CPT/HCPCS: 93005; 93306

== ENCOUNTER 2025-05-01 06:57 | Outpatient (OUT) | payer BC, SELFPAY ==
--- OUTSIDE RECORDS SUMMARY | 2024-10-14 10:30 | XMS_ITS ---
Author Organization The [facility] in [place] Address [address] [place] [address] Care Team Providers Care Supervisor Plasma Name Role Phone Luci Rios CNP Primary Care Provider Unavail Bharath Reyes Unavailable [phone] REASON FOR VISIT 6 month f/u Encounters Encounter Location Date Provider Diagnosis [facility] (PODIATRY) [address] [place] [address] [place] [address] 10/14/2024 Bharath Perez Plan Of Treatment No Information Progress Notes * Dante ESCOBEDODOB: (60 yo M)Acc No.[id number]:10/14/2024 UNLOCKED PROGRESS NOTE Follow Up Patient: Dante GRAY :?Bharath Perez DPM, MSDOB:1965???Age: 59 Y???Sex:MaleDate:10/14/2024Phone:[phone]:[id number]:Luci Rios CNP Subjective: * Chief Complaints: * 1 . 6 month f/u. * Medical History: Objective: * Vitals: Assessment: Plan: * Treatment: * * Electronic signature of Bharath Perez DPM on 05/01/2025 at 07:01 AM ESTSign off status: PendingVisit Status:?CANC (Cancelled) * Provider: Kishore Perez DPM, MS Date: 0 10/14/2024 Generated for Printing/Faxing/eTransmitting on:?05/01/2025 07:01 AM EST
--- OUTSIDE RECORDS SUMMARY | 2024-11-03 11:30 | XMS_ITS ---
Author Organization [facility] [place] Address [address] [place] [address] Care Team Providers Care Finnish Rubber Name Role Phone Luci Rios CNP Primary Care Provider Unavail Lane Powell Unavailable [phone] REASON FOR VISIT 1y F/U - Asthma Encounters Encounter Location Date Provider Diagnosis Pulmonary Medicine [address] [address] 11/03/2024 Lane Durbin Plan Of Treatment No Information Progress Notes * HERBERT AMAYAANTESDanteDOB: (60 yo M)Acc No.[id number]:11/03/2024 UNLOCKED PROGRESS NOTE Follow Up Patient: Hai GARCIA Dante :?Lane Durbin DODOB:1965???Age:59 Y ???Sex:MaleDate:11/03/2024Phone:[phone]:ANASTASIYA PASCUAL [id number]:Luci Rios CNP Subjective: * Chief Complaints: * 1 . 1y F/U - Asthma. * Medical History: Objective: * Vitals: Assessment: Plan: * Treatment: * * Electronic signature of Lane Durbin DO on 05/01/2025 at 07:01 AM ESTSign off status: PendingVisit Status:?R/S (Rescheduled) * Provider: Shani Durbin DO Date: 0 11/03/2024 Generated for Printing/Faxing/eTransmitting on:?05/01/2025 07:01 AM EST
--- OUTSIDE RECORDS SUMMARY | 2025-05-01 07:00 | XMS_ITS | CCD ---
Author Organization [facility] Care Team Providers Care Electronic Integrated Systems Mechanic Name Role Phone MD Sav Andrews Attending [...] Unavailable MD Deana Baker Primary Care Provider [phone] Silver Briceño Attending Provider [phone] Sav Andrews Attending Unavailable Sav Andrews Admitting Unavailable Samuel, Angelo Primary Care Unavailable Silver Briceño Attending Unavailable Silver Briceño Admitting Unavailable Fawivonned, [facility] Primary Care Unavailable Sav Andrews Admitting Unavailable Sav Andrews Attending Unavailable Silver Briceño Attending Unavailable Silver Briceño Admitting Unavailable Faelzbieta, [facility] Primary Care Unavailable Antwan Perez MD Primary Care Provider Eva TRANSIT PLANNING MANAGER, Marquis Unavailable Samuel GUPTA, Unavailable Eva TRANSIT PLANNING MANAGER, Marquis Unavailable Blanca TRANSIT PLANNING MANAGER-C, Luci Olivera Primary Care Provider Blanca TRANSIT PLANNING MANAGER-C, Luci Olivera Attending Provider Antwan Perez MD Primary Care Provider Aicmicheline TRANSIT PLANNING MANAGER, Luci Unavailable AICHMARIKA, LUCI Attending Unavailable AICHHOLZ, LUCI Attending Unavailable ABISAI BOATENG Attending Unavailable AICHHOLZ, LUCI Attending Unavailable AICHHOLZ, LUCI Attending Unavailable AICHHOLZ, LUCI Attending Unavailable VELASQUEZ, MARQUIS Attending Unavailabl e AICHHOLZ, LUCI Attending Unavailable ABISAI BOATENG Attending Unavailable Ana GUPTA, Antwan Primary Care Provider [phone] Eva TRANSIT PLANNING MANAGER, Marquis Unavailable Shaikh Baker MD Unavailable Blanca TRANSIT PLANNING MANAGER, Luci Unavailable Samuel GUPTA, Primary Care Provider Samuel GUPTA, Primary Care Provider Medications Current Medications MedicationDrug Class(es)DatesSig (Normalized)Sig (Original)[id number] 200 actuat albuterol 0.09 mg/actuat metered dose inhaler (20 sources)beta2-Adrenergic AgonistStart: 05-08-2023 End: 41-68-1299zzpc 2 puff(s) by inhalation every four hoursalbuterol HFA 90 mcg/act inhaler Indications: Severe persistent asthma without complication (HCC) Inhale 2 puffs every 4 (four) hours if needed for shortness of breath 18 g 07/29/2024 ActiveStart: 22-79-3264vhza 1 puff(s) by inhalation four times daily as neededAlbuterol Sulfate 90 mcg/actuation Hfa Aerosol Inhaler Active 1 PUFF INHALATION Four times daily asneeded for Shortness Of Breath December 22, 2021 12:00am Complies with drug therapyamLODIPine 10 mg oral tablet (20 sources)Dihydropyridine Calcium Channel BlockerStart: 08-18-2024 End: 27-98-8522petj 1 tablet by mouth once dailyamLODIPine (Norvasc) 10 MG tablet Indications: Primary hypertension Take 1 tablet (10 mg) by mouth Daily 90 tablet 1 11/19/2024 05/18/2025 ActiveStart: 10-24-2023 End: 02-68-4099suwu 1 tablet by mouth once dailyamLODIPine (Norvasc) 10 MG tablet Indications: Primary hypertension (CMS/HCC) Take 1 tablet (10 mg)by mouth Daily 90 tablet 1 01/22/2024 ActiveStart: 12-22-2021 End: 95-95-3463iaqk 1 tablet by mouth once daily in the morningAmlodipine 5 mg Tablet Discontinued 5 MG PO Every morning December 22, 2021 12:00am February 10, 2025 3:00pmaspirin 81 mg chewable tablet (20 sources)Platelet Aggregation Inhibitor, Nonsteroidal Anti-inflammatory Drug Start: 01-22-2024 End: 19-56-0498qxaubfe 81 MG chewable tablet Indications: Hyperlipidemia, unspecified hyperlipidemia type Chew 1 tablet (81 mg) in the morning. 30 tablet 2 01/22/2024 ActiveStart: 06-04-2198liad 1 tablet by mouth once daily in the morningAspirin 81 mg Tablet,Delayed Release (Dr/Ec) Active 81 MG PO Every morning December 22, 2021 12:00am Complies with drug therapyatorvastatin 40 mg oral tablet (20 sources)HMG-CoA Reductase InhibitorStart: 08-18-2024 End: 88-80-5228qzkk 1 tablet by mouth once dailyatorvastatin (Lipitor) 40 MG tablet Indications: Hyperlipidemia, unspecified hyperlipidemia type Take 1 tablet (40 mg) by mouth Daily 90 tablet 1 11/19/2024 05/18/2025 ActiveStart: 08-30-2022 End: 31-54-3727ugum 1 tablet by mouth once dailyatorvastatin (Lipitor) 40 MG tablet Indications: Hyperlipidemia, unspecified hyperlipidemia type (CMS/HCC) Take 1 tablet (40 mg) by mouth Daily 90 tablet 1 01/22/2024 ActiveStart: 12-22-2021 End: 67-80-7721ycog 1 tablet by mouth once dailyAtorvastatin 10 mg Tablet Discontinued 10 MG PO Daily December 22, 2021 12:00am August 30, 2022 5:17pm carvedilol 25 mg oral tablet (20 sources)alpha-Adrenergic Blanca, beta-Adrenergic BlockerStart: 08-18-2024 End: 25-96-6406jcdu 1 tablet by mouth in the morningcarvedilol (Coreg) 25 MG tablet Indications: Resistant hypertension Take 1 tablet (25 mg) by mouth in the morning and 1 tablet (25 mg) in the evening. Take with meals. 180 tablet 1 11/19/2024 05/18/2025 ActiveStart: 08-30-2022 End: 19-49-1148dqyd 1 tablet by mouth in the morningcarvedilol (Coreg) 25 MG tablet Indications: Resistant hypertension (CMS/HCC) Take 1 tablet (25 mg)by mouth in the morning and 1 tablet (25 mg) in the evening. Take with meals. 180 tablet 1 01/22/2024 ActiveContinuous Glucose Cna Gna (FreeStyle Agueda 2 Niotaze) device (20 sources)Start: 03-19-2024 End: 20-04-0357Lbfcmwyive Glucose Cna Gna (FreeStyle Agueda 2 Niotaze) device Indications: Type 2 diabetes mellituswithout complication, with long-term current use of insulin (HCC) 1 each in the morning and 1 each at noon and 1 each in the evening and 1 each before bedtime. 1 each 03/19/2024 03/19/2025 Active Start: 03-19-2024 End: 60-49-8484Hmdsoakmed Glucose Cna Gna (FreeStyle Agueda 2 Niotaze) device Indications: Type 2 diabetes mellituswithout complication, with long-term current use of insulin 1 each in the morning and 1 each at noon and 1 each in the evening and 1 each before bedtime. 1 each 03/19/2024 03/19/2025 ActiveStart: 03-19-2024 End: 99-72-3714Ikteqadeyb Glucose Cna Gna (FreeStyle Agueda 2 Niotaze) device Indications: Type 2 diabetes mellituswithout complication, with long-term current use of insulin (CMS/HCC) 1 each in the morning and 1 each at noon and 1 each in the evening and 1 each before bedtime. 1 each 03/19/2024 03/19/2025 ActiveStart: 01-22-2024 End: 75-85-9621Xpmrzrtcmx Glucose Cna Gna (FreeStyle Agueda 2 Niotaze) device Indications: Type 2 diabetes mellituswithout complication, with long-term current use of insulin (CMS/HCC) 1 each in the morning and 1 each at noon and 1 each in the evening and 1 each before bedtime. 1 each 01/22/2024 03/18/2024 Discontinued (Reorder)Start: 01-22-2024 End: 82-25-2308Tkocbjdlhc Glucose Cna Gna (FreeStyle Agueda 2 Niotaze) device Indications: Type 2 diabetes mellituswithout complication, with long-term current use of insulin (CMS/HCC) 1 each in the morning and 1 each at noon and 1 each in the evening and 1 each before bedtime. 1 each 01/22/2024 01/21/2025 ActiveContinuous Glucose Sensor (Dexcom G7 Sensor) misc (6 sources)Start: 12-09-2024 End: 86-43-5264Maaeohrlfd Glucose Sensor (Dexcom G7 Sensor) misc Indications: Type 2 diabetes mellitus without complication, with long-term current use of insulin (HCC) 1 each Daily 3 each 12/09/2024 01/08/2025 Active End: 71-18-9171Jzozlrrhpa Glucose Sensor (Dexcom G7 Sensor) misc 1 each Daily 12/09/2024 Discontinued (Reorder)Continuous Glucose Sensor (FreeStyle Agueda 2 Plus Sensor) misc (2 sources)Start: 04-27-2024 End: 42-90-4902Ppfhhumgwq Glucose Sensor (FreeStyle Agueda 2 Plus Sensor) [facility] [place] Indications: Type 2 diabetes mellitus with diabetic polyneuropathy, with long- term current use of insulin (CMS/HCC) 1 each continuously for 28 days 2 each 04/27/2024 05/25/2024 ActiveContinuous Glucose Sensor (FreeStyle Agueda 3 Plus Sensor) [facility] [place] (20 sources)Start: 11-19-2024 End: 58-36-2998Tmkvhvyfnu Glucose Sensor (FreeStyle Agueda 3 Plus Sensor) [facility] [place] Indications: Type 2 diabetes mellitus without complications (HCC) 1 each by Other route continuously USE 1 SENSOR EVERY 15 DAYS TO MONITOR BLOOD SUGAR. 2 each 11/19/2024 12/19/2024 ActiveStart: 07-23-2024 End: 80-44-0808Ylyznluljl Glucose Sensor (FreeStyle Agueda 3 Plus Sensor) [facility] [place] USE 1 SENSOR EVERY 15 DAYS TO MONITOR BLOOD SUGAR. 07/23/2024 11/19/2024 Discontinued (Reorder)Start: 37-12-0240Toibbvjeyx Glucose Sensor (FreeStyle Agueda 3 Plus Sensor) [facility] [place] USE 1 SENSOR EVERY 15 DAYS TO MONITOR BLOOD SUGAR. 07/23/2024 ActiveStart: 05-06-2024 End: 26-75-5294Nklilmqnbe Glucose Sensor (FreeStyle Agueda 3 Plus Sensor) [facility] [place] Indications: Type 2 diabetes mellitus with diabetic polyneuropathy, with long- term current use of insulin (CMS/[facility]) 1 each continuously for 28 days 2 each 05/06/2024 06/03/2024 Active End: 99-80-1650Krjxldndfc Glucose Sensor (FreeStyle Agueda 3 Plus Sensor) [facility] [place] 05/06/2024 Discontinued (Reorder)dapagliflozin 10 mg oral tablet (20 sources)Sodium-Glucose Cotransporter 2 InhibitorStart: 30-21-6966cyux 1 tablet by mouth once dailyDapagliflozin Propanediol (Farxiga) 10 mg tablet Active 10 MG PO Daily February 10, 2025 12:00amComplies with drug therapy Start: 07-29-2024 End: 20-38-3257poil 1 tablet by mouth once dailydapagliflozin (Farxiga) 5 MG Indications: Type 2 diabetes mellitus without complications (HCC) Take1 tablet (5 mg) by mouth Daily 90 tablet 1 11/19/2024 Activediclofenac potassium 50 mg oral tablet (3 sources)Nonsteroidal Anti-inflammatory DrugStart: 09-35-4730oiai 1 tablet by mouth twice daily as needed for painDiclofenac Potassium 50 mg tablet Active 50 MG PO Twice daily as needed for pain February 10, 2025 12:00am Complies with drug therapyStart: 12-31-2024 End: 69-32-9611pqxu 1 tablet by mouth in the morningdiclofenac (Cataflam) 50 MG tablet Indications: Chronic pain of right ankle Take 1 tablet (50 mg) by mouth in the morning and 1 tablet (50 mg) in the evening. Take with food. 60 tablet 12/31/2024 01/30/2025 SrvwtpXyddmtggogy-Ocpsfcywp-Zaonzc (Trelegy Ellipta) 200-62.5-25 MCG/ACT aerosol powder (20 sources)Start: 17-91-4045edak 1 puff(s) by mouth once daily, then take 1 puff(s) by mouth once eerjvFglwqnkhzmz-Fmtvapxsl-Pwinft (Trelegy Ellipta) 200-62.5-25 MCG/ACT aerosol powder Indications: Severe persistent asthma without complication (HCC) Inhale 1 puff Daily INHALE 1 PUFF ONCE DAILY, rinse mouth after use 1 each 5 11/19/2024 ActiveStart: 11-19-2024 End: 68-81-8151qwov 1 puff(s) by mouth once daily, then take 1 puff(s) by mouth once rkivvHtgiokgssby-Fxuyqjrrc-Acqaqh (Trelegy Ellipta) 200-62.5-25 MCG/ACT aerosol powder Indications: Severe persistent asthma without complication (HCC) Inhale 1 puff Daily INHALE 1 PUFF ONCE DAILY, rinse mouth after use 1 each 5 11/19/2024 12/19/2024 ActiveStart: 10-08-2024 End: 36-05-3538lnmk 1 puff(s) by mouth once daily, then take 1 puff(s) by mouth once ofzavYbymtyosule-Nobyfvhzr-Ixtsvi (Trelegy Ellipta) 200-62.5-25 MCG/ACT aerosol powder Indications: Severe persistent asthma without complication (HCC) Inhale 1 puff Daily INHALE 1 PUFF ONCE DAILY, rinse mouth after use 1 each 10/08/2024 11/19/2024 Discontinued (Reorder)Start: 24-30-4190hcqj 1 puff(s) by mouth once daily, then take 1 puff(s) by mouth once daily Kfkradbtavc-Pmxijdyte-Ttcgsp (Trelegy Ellipta) 200-62.5-25 MCG/ACT aerosol powder Indications: Severe persistent asthma without complication (HCC) Inhale 1 puff Daily INHALE 1 PUFF ONCE DAILY, rinse mouth after use 1 each 5 10/08/2024 ActiveStart: 10-08-2024 End: 43-09-0986whhg 1 puff(s) by mouth once daily, then take 1 puff(s) by mouth once rhmbcClbcelfqvhe-Nhwkcthix-Jobthc (Trelegy Ellipta) 200-62.5-25 MCG/ACT aerosol powder Indications: Severe persistent asthma without complication (CMS/HCC) Inhale 1 puff Daily INHALE 1 PUFF ONCE DAILY, rinse mouth after use 1 each 5 10/08/2024 11/07/2024 ActiveStart: 07-29-2024 End: 06-42-2569aepc 1 puff(s) by mouth once daily, then take 1 puff(s) by mouth once lqunkFbadultavyz-Ouladbwau-Dzmiqo (Trelegy Ellipta) 200-62.5-25 MCG/ACT aerosol powder Indications: Severe persistent asthma without complication (CMS/HCC) Inhale 1 puff Daily INHALE 1 PUFF ONCE DAILY, rinse mouth after use 1 each 5 07/29/2024 10/08/2024 Discontinued (Reorder)Start: 97-55-9446rjvi 1 puff(s) by mouth once daily, then take 1 puff(s) by mouth once daily Udzdszvdkru-Kkhlzbvew-Uyscfo (Trelegy Ellipta) 200-62.5-25 MCG/ACT aerosol powder Indications: Severe persistent asthma without complication (CMS/HCC) Inhale 1 puff Daily INHALE 1 PUFF ONCE DAILY, rinse mouth after use 1 each 5 07/29/2024 ActiveStart: 07-29-2024 End: 47-26-0069lyka 1 puff(s) by mouth once daily, then take 1 puff(s) by mouth once mvjmdRczvblqedmw-Yzuyqmshv-Ggemho (Trelegy Ellipta) 200-62.5-25 MCG/ACT aerosol powder Indications: Severe persistent asthma without complication (CMS/HCC) Inhale 1 puff Daily INHALE 1 PUFF ONCE DAILY, rinse mouth after use 1 each 5 07/29/2024 08/28/2024 ActiveStart: 19-15-1261whfy 1 puff(s) by inhalation once ukclhReoztfopcay-Wqikrlyyo-Astjlj (Trelegy Ellipta) 200-62.5-25 MCG/ACT aerosol powder Indications: Severe persistent asthma without complication (CMS/HCC) Inhale 1 puff Daily 3 each 01/22/2024 ActiveStart: 01-22-2024 End: 09-25-6066vrfk 1 puff(s) by inhalation once daily Tlmavigyrav-Zmtkkfrut-Epvpkp (Trelegy Ellipta) 200-62.5-25 MCG/ACT aerosol powder Indications: Severe persistent asthma without complication (CMS/HCC) Inhale 1 puff Daily 3 each 01/22/2024 04/21/2024ctiveStart: 05-08-2023 End: 98-97-1244crve 1 puff(s) by inhalation in the morning Dhjvglbjrds-Asctbtvbj-Mzupeh (Trelegy Ellipta) 200-62.5-25 MCG/ACT aerosol powder Indications: Severe persistent asthma without complication (CMS/HCC) Inhale 1 puff in the morning. 3 each 05/08/2023 01/22/2024 Discontinued (Reorder)Start: 41-93-0730swhi 1 puff(s) by inhalation in the morning Gvvdngdzalv-Tlmshcaca-Jrylfg (Trelegy Ellipta) 200-62.5-25 MCG/ACT aerosol powder Indications: Severe persistent asthma without complication (CMS/HCC) Inhale 1 puff in the morning. 3 each 05/08/2023 Active Ijtgvjpkcfq-Vmqnjyiiy-Zvzijuwa (5 sources)Start: 12-78-4708Ccamdulewsn-Umeclidin-Vilanter (Trelegy Ellipta) 200-62.5-25 mcg Blister With Device Active 1 INH INHALATION Every morning December 22, 2021 12:00am Complies with drug therapyStart: 12-22-2021 Bmynkmrpyja-Yeyszykec-Uoxkparl (Trelegy Ellipta) 200-62.5-25 mcg Blister With Device Active 1 INH INHALATION Every morning December 22, 2021 12:00amStart: 34-79-0413Undgsbveqjn-Umeclidin-Vilanter (Trelegy Ellipta) 200-62.5-25 mcg Blister With Device Active 1 INH INHALATION Daily December 22, 2021 12:00am furosemide 40 mg oral tablet (2 sources)Loop Diuretictake 1 tablet by mouth once dailyfurosemide (Lasix) 40 MG tablet Take 40 mg by mouth Daily ActiveglipiZIDE 5 mg oral tablet (20 sources)SulfonylureaStart: 08-18-2024 End: 77-69-3411fljb 1 tablet by mouth in the morningglipiZIDE (Glucotrol) 5 MG tablet Indications: Type 2 diabetes mellitus with diabetic polyneuropathy, with long-term current use of insulin ([facility]) Take 1 tablet (5 mg) by mouth in the morning and 1 tablet (5 mg) in the evening. Take before meals. 180 tablet 1 11/19/2024 05/18/2025 ActiveStart: 10-24-2023 End: 41-84-4636pvdo 1 tablet by mouth in the morningglipiZIDE (Glucotrol) 5 MG tablet Indications: Type 2 diabetes mellitus with diabetic polyneuropathy, with long-term current use of insulin ([facility]) Take 1 tablet (5 mg) by mouth in the morning and 1 tablet (5 mg) in the evening. Take before meals. 180 tablet 1 01/22/2024 ActivehydroCHLOROthiazide 25 mg / losartan potassium 100 mg oral tablet (20 sources)Thiazide Diuretic, Angiotensin 2 Receptor BlockerStart: 08-18-2024 End: 89-17-0019wydj 1 tablet by mouth once dailylosartan-hydroCHLOROthiazide (Hyzaar) 100-25 MG tablet Indications: Primary hypertension Take 1 tablet by mouth Daily 90 tablet 1 11/19/2024 05/18/2025 ActiveStart: 08-30-2022 End: 54-39-4596piyh 1 tablet by mouth once dailylosartan-hydroCHLOROthiazide (Hyzaar) 100-25 MG tablet Indications: Primary hypertension (CMS/HCC) Take 1 tablet by mouth Daily 90 tablet 1 01/22/2024 Active3 ml insulin detemir 100 unt/ml pen injector (2 sources)Insulin AnalogStart: 07-70-0072Mzzcwmz Detemir U-100 (Levemir Flexpen) 100 unit/mL (3 mL) insulin pen Active 20 UNIT SUBCUT Every morning February 10, 2025 3:01pm Complies with drug therapyStart: 08-30-2022 End: 80-39-1959Chvgujy Detemir U-100 (Levemir Flexpen) 100 unit/mL (3 mL) insulin pen Discontinued 15 UNIT SUBCUT Every morning August 30, 2022 12:00am February 10, 2025 3:03pmInsulin Detemir U-100 (Levemir Flexpen) 100 unit/mL (3 mL) insulin pen (2 sources)Start: 95-30-0350Nxwhmmf Detemir U-100 (Levemir Flexpen) 100 unit/mL (3 mL) insulin pen Active 15 UNIT SUBCUT Every morning August 30, 2022 12:00am3 ml insulin glargine 100 unt/ml pen injector (9 sources)Insulin AnalogStart: 11-24-2024 End: 67-68-0120hfrudcx glargine (Lantus SoloStar) 100 UNIT/ML pen Indications: Type 2 diabetes mellitus without complication, with long-term current use of insulin ([facility]) Inject 20 Units under the skin at bedtime 18mL 2 11/24/2024 Active insulin glargine-yfgn (Semglee, yfgn,) 100 UNIT/ML injection (20 sources)Start: 11-19-2024 End: 92-24-3496uunexr 20 [IU] by subcutaneous injection at bedtimeinsulin glargine-yfgn (Semglee, yfgn,) 100 UNIT/ML injection Indications: Type 2 diabetes mellitus with diabetic polyneuropathy, with long-term current use of insulin ([facility]) Inject 20 Units under the skin at bedtime Inject 20 Units under the skin at bedtime 10 mL 1 11/19/2024 11/24/2024 Discontinued(Cost of medication)Start: 11-19-2024 End: 30-22-4742skjlaf 20 [IU] by subcutaneous injection at bedtimeinsulin glargine-yfgn (Semglee, yfgn,) 100 UNIT/ML injection Indications: Type 2 diabetes mellitus with diabetic polyneuropathy, with long-term current use of insulin (HCC) Inject 20 Units under the skin at bedtime Inject 20 Units under the skin at bedtime 10 mL 1 11/19/2024 02/17/2025 ActiveStart: 04-27-2024 End: 22-83-7542tscsqwg glargine-yfgn (Semglee, yfgn,) 100 UNIT/ML injection Indications: Type 2 diabetes mellitus with diabetic polyneuropathy, with long- term current use of insulin (HCC) Inject 20 Units under the skin at bedtime 04/27/2024 11/19/2024 Discontinued (Reorder)Start: 04-27-2024 End: 12-42-9183sxaeqsm glargine-yfgn (Semglee, yfgn,) 100 UNIT/ML injection Indications: Type 2 diabetes mellitus with diabetic polyneuropathy, with long- term current use of insulin (HCC) Inject 20 Units under the skin at bedtime 04/27/2024 04/27/2025 ActiveStart: 04-27-2024 End: 32-84-5803wfqptxg glargine-yfgn (Semglee, yfgn,) 100 UNIT/ML injection Indications: Type 2 diabetes mellitus with diabetic polyneuropathy, with long- term current use of insulin (CMS/HCC) Inject 20 Units under the skin at bedtime 04/27/2024 04/27/2025 ActiveStart: 01-22-2024 End: 50-67-1566knceppf glargine-yfgn (Semglee, yfgn,) 100 UNIT/ML injection Indications: Type 2 diabetes mellitus with diabetic polyneuropathy, with long- term current use of insulin (CMS/HCC) Inject 25 Units under the skin at bedtime 7.5 mL 11 01/22/2024 04/27/2024 Discontinued (Dose adjustment)Start: 01-22-2024 End: 49-34-8409uccpajb glargine-yfgn (Semglee, yfgn,) 100 UNIT/ML injection Indications: Type 2 diabetes mellitus with diabetic polyneuropathy, with long- term current use of insulin (CMS/HCC) Inject 25 Units under the skin at bedtime 7.5 mL 11 01/22/2024 01/21/2025 ActivemetFORMIN hydrochloride 850 mg oral tablet (20 sources)BiguanideStart: 08-18-2024 End: 49-02-6721aojq 1 tablet by mouth in the morningmetFORMIN (Glucophage) 850 MG tablet Indications: Hyperlipidemia, unspecified hyperlipidemia type Take 1 tablet (850 mg) by mouth in the morning and 1 tablet (850 mg) in the evening. Take with meals.180 tablet 1 11/19/2024 05/18/2025 ActiveStart: 12-22-2021 End: 22-14-1795ygex 1 tablet by mouth in the morningmetFORMIN (Glucophage) 850 MG tablet Indications: Hyperlipidemia, unspecified hyperlipidemia type (CMS/HCC) Take 1 tablet (850 mg) by mouth in the morning and 1 tablet (850 mg) in the evening. Take with meals. 180 tablet 1 01/22/2024 ActiveStart: 41-39-1255nvlc 850 mg by mouth once dailyMetformin Active 850 MG PO Daily December 22, 2021 12:00amOmega 7-Anb-Jbm-Fish Oil (Fish Oil) 1,200 (144-216) mg Capsule (5 sources)Start: 72-32-2796frva 1 capsule by mouth twice dailyStart: 12-22-2021 take 1 capsule by mouth twice dailyOmega 5-Uhk-Tgs-Fish Oil (Fish Oil) 1,200 (144-216) mg Capsule Active 1 CAP PO Twice daily December 22, 2021 12:00am omeprazole 40 mg delayed release oral capsule (20 sources)Proton Pump InhibitorStart: 12-22-2021 End: 73-95-6122uayd 1 capsule by mouth before mealtimeomeprazole (PriLOSEC) [address] capsule Indications: Gastroesophageal reflux disease without esophagitis Take 1 capsule (40 mg) by mouth in the morning. Take before meals. 90 capsule 1 11/19/2024 05/18/2025 Activespironolactone 50 mg oral tablet (20 sources)Aldosterone AntagonistStart: 11-19-2024 End: 61-28-9664ueaj 1 tablet by mouth once dailyspironolactone (Aldactone) 50 MG tablet Indications: Resistant hypertension Take 1 tablet (50 mg) by mouth Daily 90 tablet 1 11/19/2024 ActiveStart: 08-19-2024 End: 56-26-4881ehlm 2 tablets by mouth once dailyspironolactone (Aldactone) 50 MG tablet Indications: Resistant hypertension Take 2 tablets (100 mg)by mouth Daily 180 tablet 08/19/2024 11/19/2024 Discontinued (Reorder)Start: 10-24-2023 End: 76-47-7599lqwp 1 tablet by mouth once dailyspironolactone (Aldactone) 50 MG tablet Indications: Resistant hypertension (CMS/HCC) Take 1 tablet(50 mg) by mouth Daily 90 tablet 1 04/27/2024 10/24/2024 Active Completed/Discontinued Medications MedicationDrug Class(es)DatesSig (Normalized)Sig (Original)Continuous Blood Gluc Cna Gna (FreeStyle Agueda 2 Niotaze) device (3 sources)Start: 07-18-2023 End: 63-79-8169Menypvzeom Blood Gluc Cna Gna (FreeStyle Agueda 2 Niotaze) device Indications: Type 2 diabetes mellitus without complication, with long-term current use of insulin (CMS/HCC) 1 each in the morning and 1 each at noon and 1 each in the evening and 1 each before bedtime. 1 each 07/18/2023 01/22/2024 Disc ontinued (Reorder)Start: 07-18-2023 End: 25-36-1808Oiyuvcoogm Blood Gluc Cna Gna (FreeStyle Agueda 2 Niotaze) device Indications: Type 2 diabetes mellitus without complication, with long-term current use of insulin (CMS/HCC) 1 each in the morning and 1 each at noon and 1 each in the evening and 1 each before bedtime. 1 each 07/18/2023 07/17/2024 Acti veempagliflozin 10 mg oral tablet (2 sources)Sodium-Glucose Cotransporter 2 Inhibitor End: 82-40-1553rnfe 10 mg by mouth once dailyempagliflozin (Jardiance) 10 MG Indications: Type 2 Diabetes Mellitus Take 10 mg by mouth Daily 07/29/2024 Discontinued (Therapy completed)insulin glargine-yfgn (Semglee, yfgn,) 100 UNIT/ML pen (3 sources)Start: 10-24-2023 End: 72-11-0257nfivrnp glargine-yfgn (Semglee, yfgn,) 100 UNIT/ML pen Indications: Type 2 diabetes mellitus with diabetic polyneuropathy, with long- term current use of insulin (CMS/[facility]) Inject 25 Units under the skin at bedtime 22.5 mL 1 10/24/2023 01/22/2024 Discontinued (Reorder)Start: 10-24-2023 End: 21-12-1776hiwjhjh glargine-yfgn (Semglee, yfgn,) 100 UNIT/ML pen Indications: Type 2 diabetes mellitus with diabetic polyneuropathy, with long- term current use of insulin (CMS/HCC) Inject 25 Units under the skin at bedtime 22.5 mL 1 10/24/2023 04/21/2024 Activemeloxicam 15 mg oral tablet (5 sources)Nonsteroidal Anti-inflammatory DrugStart: 12-22-2021 End: 80-90-7624jtnq 1 tablet by mouth once daily in the morningMeloxicam 15 mg Tablet Discontinued 15 MG PO Every morning December 22, 2021 12:00am February 10, 2025 3:02pmSITagliptin 100 mg oral tablet (20 sources)Dipeptidyl Peptidase 4 InhibitorStart: 08-30-2022 End: 57-51-4335hobc 1 tablet by mouth once dailySITagliptin (Januvia) 100 MG tablet Indications: Type 2 diabetes mellitus with diabetic polyneuropathy, with long-term current use of insulin ([facility]) Take 1 tablet (100 mg) by mouth Daily 90 tablet1 01/22/2024 07/29/2024 Discontinued (Therapy completed)traMADol hydrochloride 50 mg oral tablet (2 sources)Opioid AgonistStart: 09-10-2022 End: 73-30-0383vrzd 1 tablet by mouth every six hours as needed for painTramadol 50 mg tablet Discontinued 50 MG PO Q6H as needed for pain 23 12September 10, 2022 12:00am February 10, 2025 3:02pmTrelegy Ellipta 200-62.5-25 MCG/ACT aerosol powder (5 sources)Start: 06-16-2024 End: 23-36-2081ggub 1 puff(s) by inhalation once dailyTrelegy Ellipta 200-62.5-25 MCG/ACT aerosol powder Indications: Severe persistent asthma without complication (CMS/HCC) INHALE 1 PUFF ONCE DAILY 180 each 06/16/2024 07/29/2024 Discontinued (Reorder)Start: 60-17-0567jmrf 1 puff(s) by inhalation once daily Trelegy Ellipta 200-62.5-25 MCG/ACT aerosol powder Indications: Severe persistent asthma without complication (CMS/HCC) INHALE 1 PUFF ONCE DAILY 180 each 06/16/2024 Active Problems Active Problems Problem ClassificationProblemDateDocumented DateEpisodic/ChronicAsthma (20 sources)Uncomplicated severe persistent asthma; Translations: [Severe persistent asthma, uncomplicated]Onset: 123542-08-6007XzacaqqRivbpsob mellitus with complications (20 sources)Type 2 diabetes mellitus with diabetic autonomic (poly)neuropathy; Translations: [Polyneuropathy due to type 2 diabetes mellitus]Onset: 09-14-2021 68-16-4516IuzsovdMahnmyqm mellitus without complication (20 sources)Type 2 diabetes mellitus without complications; Translations: [Type 2 diabetes mellitus without complication]Onset: hronic Disorders of lipid metabolism (20 sources)Hyperlipidemia, unspecified; Translations: [Mixed hyperlipidemia] Onset: 09-14-2021 Resolved: 957253-89-6727JflvkzlDxojmhqexe disorders (20 sources)Gastroesophageal reflux disease without esophagitis; Translations: [Gastro-esophageal reflux disease without esophagitis]Onset: 08-07-2023 63-88-1322YqjornpKsqogeulf hypertension (20 sources)Essential (primary) hypertension; Translations: [Resistant hypertensive disorder]Onset: 07-07-2022 Resolved: 13-83-9490BsmdfwhCbyjjeh (4 sources)Onychomycosis; Translations: [Tinea unguium]39-87-8500YglyqkyrWysnz bone disease and musculoskeletal deformities (4 sources)Idiopathic aseptic necrosis of right ankle; Translations: [IDIOPATH ASEPTIC NECROSIS RT ANKLE]Onset: 67-41-1249JyhzwyqYegvq bone disease and musculoskeletal deformities (20 sources)Idiopathic aseptic necrosis of right foot; Translations: [Aseptic necrosis of bone, other]Onset: 292826-78-7883OggvsqkJwiko non-traumatic joint disorders (20 sources)Chronic ankle pain; Translations: [Pain in right ankle and joints of right foot]Onset: 759809-32-3573SenrkupqGkrfx nutritional; endocrine; and metabolic disorders (20 sources)Obesity caused by energy imbalance; Translations: [Morbid (severe) obesity due to excess calories]Onset: 072944-89-2644KgxuphnAlksb nutritional; endocrine; and metabolic disorders (20 sources)Body mass index 30+ - obesity; Translations: [Body mass index (BMI) 38.0-38.9, adult]Onset: 150723-70-9777HkuleguAkqsl skin disorders (4 sources)Dystrophia unguium; Translations: [Nail dystrophy]39-64-9393Bfwqeyyc Unclassified (1 source)Second degree hemorrhoids; Translations: [Second degree hemorrhoids] Onset: 42-89-8196Ovkojagntvie (1 source)Encounter for preprocedural laboratory examination; Translations: [Encounter for preprocedural laboratory examination]Onset: 08-30-2022 Unclassified (1 source)Encounter for screening for malignant neoplasm of colon; Translations: [Encounter for screening formalignant neoplasm of colon]Onset: 12-22-2021 Past or Other Problems Problem ClassificationProblemDateDocumented DateEpisodic/ChronicHemorrhoids (20 sources)Hemorrhoids; Translations: [Unspecified hemorrhoids]Onset: 316057-41-1889CcdkglwnGrycozc on above:Problem List clean-up per request of Phys. EHR CmteOther aftercare (20 sources)Long-term current use of insulin; Translations: [retirement (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]Onset: 512303-23-6420TxpmivzlYsbcc non-traumatic joint disorders (4 sources)Pain in right ankle and joints of right foot; Translations: [PAIN IN RIGHT ANKLE]Onset: 10-41-0834SwvzqsmqFhczw screening for suspected conditions (not mental disorders or infectious disease) (20 sources)Serum creatinine raised; Translations: [Other specified abnormal findings of blood chemistry]Onset: 18-84-849196760839-14-0329WuoslyelBzxtdjoq codes; unclassified (4 sources)Procedure and treatment not carried out for other reasons; Translations: [PROC AND TX NOT CARRIED OUT OTH REASONS]Onset: 10-96-6902Txboqapg Residual codes; unclassified (20 sources)Bilateral lower limb edema; Translations: [Localized edema]Onset: 721455-09-8667Ugzuyskl Results Test NameValueInterpretationReference RangeFacilityXR ANKLE RT MIN 3Von 92-92-9174Tw[place]ill[place] [address] XRay Report Signed Patient: LAVERN DIETZ MR#: [id number] : 1965 Acct:[id number] Age/Sex: 59 / M ADM Date: 12/31/24 Loc: YANCY Attending Dr: Luci Rios NP Ordering Physician: Luci Rios NP Date of Service: 12/31/24 Procedure(s): XR ankle RT min 3V Accession Number(s): [id number] cc: Luci Rios NP [place] [address] Patient Name: LAVERN DEWEY MRN: [id number] date: 1965 Sex: M Assigned Patient Location: [facility] Current Patient Location: [facility] Accession/Order Number: [id number] Exam Date: 12/31/2024 21:47 Report Date: 12/31/2024 [...] PM Dictation Location: RADIO-PC-29 Electronically authenticated by: [id number] Y Date: 12/31/2024 21:51 Dictated By: Alvin Pan M.D. Signed By: 12/31/242152 DD/ 50 TD/TT: Registered Dental Assistant:BRAXTONHRadiology, Radiologist, - 12/31/2024 [place] [address] XRay Report Signed Patient: LAVERN DIETZ MR#: [id number] : 1965 Acct:[id number] Age/Sex: 59 / M ADM Date: 12/31/24 Loc: YANCY Attending Dr: Luci Rios NP Ordering Physician: Luci Rios NP Date of Service: 12/31/24 Procedure(s): XR ankle RT min 3V Accession Number(s): [id number] cc: Luci Rios NP The [place] [id number] Patient Name: LAVERN DEWEY MRN: [id number] date: 1965 Sex: M Assigned Patient Location: [facility] Current Patient Location: [facility] Accession/Order Number: [id number] Exam Date: 12/31/2024 21:47 Report Date: 12/31/2024 [...] PM Dictation Location: RADIO-PC-29 Electronically authenticated by: [id number] Y Date: 12/31/2024 21:51 Dictated By: Alvin Pan M.D. Signed By: 12/31/242152 DD/ 50 TD/TT: Registered Dental Assistant: SELENA HealthcareRadiology Study observation (narrative)SELENA HealthcareXR ANKLE RT MIN 3VOrdered By: Radiologist Radiology on 72-32-6213PQ[facility] Work Phone: XR ANKLE RT MIN 3Von 76-68-2008[place]vf[place], [place] [address] XRay Report Signed Patient: LAVERN DIETZ MR#: [id number] : 1965 Acct:[id number] Age/Sex: 59 / M ADM Date: 11/30/24 Loc: RAD Attending Dr: Rey Alcaraz D.P.M. Ordering Physician: Rey Alcaraz D.P.M. Date of Service: 11/30/24 Procedure(s): XR ankle RT min 3V Accession Number(s): [id number] cc: Luci Rios TRANSIT PLANNING MANAGER; Rey Alcaraz D.P.M. [place] [address] Patient Name: LAVERN DEWEY MRN: [id number] date: 1965 Sex: M Assigned Patient Location: [facility] Current Patient Location: [facility] Accession/Order Number: [id number] Exam Date: 11/30/2024 16:31 Report Date: 11/30/2024 [...] Dunn M.D. 11/30/2024 4:33 PM Dictation Location: [place] [address] Electronically authenticated by: [id number] Y Date: 11/30/2024 16:33 Dictated By: Arslan Dunn D.O. Signed By: 11/30/241635 DD/ 32 TD/TT: Registered Dental Assistant:RASadiolcarlos Radiologist, - 11/30/2024 [place] [address] XRay Report Signed Patient: LAVERN DIETZ MR#: [id number] : 1965 Acct:[id number] Age/Sex: 59 / M ADM Date: 11/30/24 Loc: RAD Attending Dr: Rey Alcaraz D.P.M. Ordering Physician: Rey Alcaraz D.P.M. Date of Service: 11/30/24 Procedure(s): XR ankle RT min 3V Accession Number(s): [id number] cc: Luci Rios TRANSIT PLANNING MANAGER; Rey Alcaraz D.P.M. The [place] [address] Patient Name: LAVERN DEWEY MRN: [id number] date: 1965 Sex: M Assigned Patient Location: [facility] Current Patient Location: [facility] Accession/Order Number: [id number] Exam Date: 11/30/2024 16:31 Report Date: 11/30/2024 [...] Dunn M.D. 11/30/2024 4:33 PM Dictation Location: [place] [address] Electronically authenticated by: [id number] Y Date: 11/30/2024 16:33 Dictated By: Arslan Dunn D.O. Signed By: 11/30/24 1636 DD/ 32 TD/TT: Registered Dental Assistant: SELENA [facility] DublinRadiology Study observation (narrative)[facility] CenterXR ANKLE RT MIN 3VOrdered By: Radiologist Radiology on 01-52-8292[facility] Work Phone: HbA1c (Bld) [Mass fraction]on 82-53-5931Uejjghpjzlkteq and review of laboratory resultsAbnormalLiberty Hospital HealthcareLaboratory - Hematology and Cell countson 07-52-0750SvZ1i (Bld) [Mass fraction]7 %[facility] HealthcareALL BASIC METABOLIC PANELon 43-34-1733Ygbdp gap [Moles/Vol]14.6 mmol/L [facility] HealthcareCalcium [Mass/Vol]8.8 mg/dL8.5 - 10.1 mg/dLNOOH Healthcare Chloride [Moles/Vol]102 mmol/L98 - 107 mmol/LNOMS HealthcareCO2 [Moles/Vol]27.2 mmol/L21.0 - 32.0 mmol/LNOMS HealthcareCreatinine [Mass/Vol]1 mg/dL0.70 - 1.30 mg/dLNOOH HealthcareGFR/1.73 sq M.predicted CKD-EPI (S/P/Bld) [Vol rate/Area]>60 >=60 mL/min/1.73m 2NOMS HealthcareGlucose [Mass/Vol]143 mg/sPXlpf97 - 106 mg/dL [facility] CenterInterpretation and review of laboratory resultsAbBronson South Haven HospitalPotassium [Moles/Vol]4.8 mmol/L3.5 - 5.1 mmol/LNOMS HealthcareSodium [Moles/Vol]139 mmol/L136 - 145 mmol/LNOMS HealthcareTBH EGFR-NON AF CITIZEN OF [place]>60 >=60 mL/min/1.73m 2NOMS HealthcareUrea nitrogen [Mass/Vol]20 mg/dLHigh7.0 - 18.0 mg/dLNOOH HealthcareUrea nitrogen/Creatinine [Mass ratio]20 mg/mgNOMS HealthcareCLINISYNCNOMS HealthcareUS RENAL BIon 76-69-0026V[address] [address] Ultrasound Report Signed Patient: LAVERN DIETZ MR#: [id number] : 1965 Acct:[id number] Age/Sex: 59 / M ADM Date: 10/24/24 Loc: US Attending Dr: Luci Rios NP Ordering Physician: Luci Rios NP Date of Service: 10/24/24 Procedure(s): US renal BI Accession Number(s): [id number] cc: Luci Rios NP [facility] [place] [id number] Patient Name: LAVERN DEWEY MRN: [id number] date: 1965 Sex: M Assigned Patient Location: US Current Patient Location: US Accession/Order Number: [id number] Exam Date: 10/24/2024 11:36 Report Date: 10/24/2024 [...] Dunn M.D. 10/24/2024 11:37 AM Dictation Location: [place] [address] Electronically authenticated by: [id number] Y Date: 10/24/2024 11:37 Dictated By: Arslan Dunn D.O. Signed By: 10/24/24 1139 DD/ 1137 TD/TT: Registered Dental Assistant:TBHRadiology, Radiologist, MD - 10/24/2024 [place] [address] Ultrasound Report Signed Patient: LAVERN DIETZ MR#: [id number] : 1965 Acct:[id number] Age/Sex: 59 / M ADM Date: 10/24/24 Loc: US Attending Dr: Luci Rios NP Ordering Physician: Luci Rios NP Date of Service: 10/24/24 Procedure(s): US renal BI Accession Number(s): [id number] cc: Luci Rios NP [address] [address] Patient Name: LAVERN DEWEY MRN: [id number] date: 1965 Sex: M Assigned Patient Location: US Current Patient Location: US Accession/Order Number: [id number] Exam Date: 10/24/2024 11:36 Report Date: 10/24/2024 [...] Dunn M.D. 10/24/2024 11:37 AM Dictation Location: [place] [address] Electronically authenticated by: [id number] Y Date: 10/24/2024 11:37 Dictated By: Arslan Dunn D.O. Signed By: 10/24/24 1139 DD/ 1137 TD/TT: Registered Dental Assistant: SELENA HealthcareRadiology Study observation (narrative)NOM HealthcareUS RENAL BI Ordered By: Radiologist Radiology on 47-65-1210Y[facility] Work Phone: all BASIC METABOLIC PANELon 09-77-3349Jnrwz gap [Moles/Vol]13.6 mmol/LNOMS HealthcareCalcium [Mass/Vol]8.4 mg/dLLow8.5 - 10.1 mg/dLNOMS HealthcareChloride [Moles/Vol]102 mmol/L98 - 107 mmol/LNOMS Healthcare CO2 [Moles/Vol]26.2 mmol/L21.0 - 32.0 mmol/LNOMS HealthcareCreatinine [Mass/Vol] 1.79 mg/dLHigh0.70 - 1.30 mg/dLNOMS HealthcareGFR/1.73 sq M.predicted CKD-EPI (S/P/Bld) [Vol rate/Area]48Low>=60 mL/min/1.73m 2NOMS HealthcareGlucose [Mass/Vol]78 mg/dL74 - 106 mg/dLNOOH HealthcareInterpretation and review of laboratory resultsAbnormalNOMS HealthcarePotassium [Moles/Vol]4.8 mmol/L3.5 - 5.1 mmol/LNOMS HealthcareSodium [Moles/Vol]137 mmol/L136 - 145 mmol/LNOMS [facility] DublinTB EGFR-NON AF PPEXPAQH11Blf>=60 mL/min/1.73m 2NOMS HealthcareUrea nitrogen [Mass/Vol]35 mg/dLHigh7.0 - 18.0 mg/dLNOOH HealthcareUrea nitrogen/Creatinine [Mass ratio]19.6 mg/mgNOOH HealthcareCLINISYNAiken Regional Medical Center BASIC METABOLIC PANELon 32-85-0377Zxazs gap [Moles/Vol]15 mmol/L NOMS HealthcareCalcium [Mass/Vol]9.2 mg/dL8.5 - 10.1 mg/dLNOCrossroads Regional Medical Center Chloride [Moles/Vol]106 mmol/L98 - 107 mmol/LNOMS HealthcareCO2 [Moles/Vol]26.2 mmol/L21.0 - 32.0 mmol/LNOMS HealthcareCreatinine [Mass/Vol]1.08 mg/dL0.70 - 1.30 mg/dLNOOH HealthcareGFR/1.73 sq M.predicted CKD-EPI (S/P/Bld) [Vol rate/Area]>60>=60 mL/min/1.73m 2[facility] HealthcareGlucose [Mass/Vol]148 mg/aTJqcu23 - 106 mg/dLNOOH HealthcareInterpretation and review of laboratory results AbnormalNOMS HealthcarePotassium [Moles/Vol]5.2 mmol/LHigh3.5 - 5.1 mmol/LNOMS HealthcareSodium [Moles/Vol]142 mmol/L136 - 145 mmol/LNOMS [facility] DublinTB EGFR- NON AF CITIZEN OF [place]>60>=60 mL/min/1.73m 2NOMS HealthcareUrea nitrogen [Mass/Vol]23 mg/dLHigh7.0 - 18.0 mg/dLNOOH HealthcareUrea nitrogen/Creatinine [Mass ratio] 21.3 mg/mgNOOH HealthcareCLINISYNCNOMS HealthcareALL CBC WITH AUTO DIFFon 22-41-3467SAEMGXIMQ ABSOLUTE AUTO0.1NOMS HealthcareBasophils/100 WBC (Bld)0.8 % 0.2 - 2.0 %NOMS HealthcareEosinophils/100 WBC (Bld)7.1 %High0.9 - 7.0 %NOMS HealthcareErythrocyte distribution width (RBC) [Ratio]13.2 %11.0 - 15.0 %NOMS HealthcareHematocrit (Bld) [Volume fraction]39.4 %Low42.0 - 54.0 %NOMS HealthcareHemoglobin (Bld) [Mass/Vol]13.4 g/dLLow14.0 - 18.0 g/dLMiss[facility] Rehabilitation Center IMMATURE GRANULOCYTES ABS AUTO0.07HighNOCrossroads Regional Medical CenterImmature granulocytes/100 WBC (Bld)1.2 %High0.0 - 0.5 %[facility] HealthcareInterpretation and review of laboratory resultsAbnormalNOCrossroads Regional Medical CenterLYMPHOCYTES ABSOLUTE QHTY9SSUYCrossroads Regional Medical CenterLymphocytes/100 WBC (Bld)32.4 %20.5 - 60.0 %[facility] CenterH (RBC) [Entitic mass]29.6 pg25.9 - 34.0 pgNONortheast Missouri Rural Health NetworkHC (RBC) [Mass/Vol]34 g/dL 29.9 - 35.2 g/dLMissouri Baptist Medical CenterV (RBC) [Entitic vol]87 fL80.0 - 94.0 fLNOCrossroads Regional Medical CenterMONOCYTES ABSOLUTE AUTO0.4NOCrossroads Regional Medical CenterMonocytes/100 WBC (Bld)6.4 % 1.7 - 12.0 %NOMWestern Missouri Medical CenterNEUTROPHILS ABSOLUTE AUTO3.2N[facility]S Healthcare Neutrophils/100 WBC (Bld)52.1 %43.0 - 75.0 %NOMWestern Missouri Medical CenterPlatelet mean volume (Bld) [Entitic vol]10.5 fL9.5 - 13.5 fLNOCrossroads Regional Medical CenterTBH EO #0.4NOMS [facility] TBH [id number] [facility] RBC4.53LowNOMS [facility] WBC6.1NOMS [facility] CLINISYNCNOOH HealthcareXR ANKLE RT MIN 3Von 34-93-7366U[address] [address] XRay Report Signed Patient: LAVERN DIETZ MR#: [id number] : 1965 Acct:[id number] Age/Sex: 59 / M ADM Date: 04/15/24 Loc: RAD Attending Dr: Rey Alcaraz D.P.M. Ordering Physician: Rey Alcaraz D.P.M. Date of Service: 04/15/24 Procedure(s): XR ankle RT min 3V Accession Number(s): [id number] cc: Shaikh Heather Baker; Rey Alcaraz D.P.M. The [address] [address] Patient Name: LAVERN DEWEY MRN: [facility]:[id number] date: 1965 Sex: M Assigned Patient Location: [facility] Current Patient Location: [facility] Accession/Order Number: [id number] Exam Date: 04/15/2024 15:10 Report Date: 04/17/2024 [...] Signed By: 04/17/24 1517 DD/ 13 TD/TT: Registered Dental Assistant:BRAXTONHRadiology, Radiologist, MD - 04/17/2024 The [place] [id number] XRay Report Signed Patient: LAVERN DIETZ MR#: [id number] : 1965 Acct:[id number] Age/Sex: 59 / M ADM Date: 04/15/24 Loc: RAD Attending Dr: Rey Alcaraz D.P.M. Ordering Physician: Rey Alcaraz D.P.M. Date of Service: 04/15/24 Procedure(s): XR ankle RT min 3V Accession Number(s): [id number] cc: Shaikh Heather Baker; Rey Alcaraz D.P.M. [place] [address] Patient Name: LAVERN DEWEY MRN: [facility]:[id number] date: 1965 Sex: M Assigned Patient Location: RAD Current Patient Location: [facility] Accession/Order Number: [id number] Exam Date: 04/15/2024 15:10 Report Date: 04/17/2024 [...] Signed By: 04/17/24 1517 DD/ 13 TD/TT: Registered Dental Assistant: NOMS HealthcareRadiology Study observation (narrative)NOMS HealthcareXR ANKLE RT MIN 3VOrdered By: Radiologist Radiology on 69-43-3223[facility] Work Phone: aLL LIPID PROFILE (FASTING)on 12-22-2194QHFF HDL RATIO 3.4NOMS HealthcareComment on above:3.3 - 4.4 LOW RISK 4.4 - 7.1 AVERAGE RISK 7.1 - 11.0 MODERATE RISK >11.0 HIGH RISK Cholesterol [Mass/Vol]149 mg/dLNINF - 200 mg/dLNOOH HealthcareCholesterol in HDL [Mass/Vol]44 mg/dL40 - 60 mg/dLNOOH HealthcareComment on above:> or =60 mg/dl - LOW CARDIOVASCULAR RISK <40 mg/dl - HIGH CARDIOVASCULAR RISK Magnesium [Mass/Vol]70.0 mg/dLNOOH HealthcareComment on above:<100 mg/dl OPTIMAL 100-129 mg/dl NEAR OR ABOVE OPTIMAL 130-159 mg/dl BORDERLINE HIGH 160-189 mg/dl HIGH >190 mg/dl VERY HIGH Magnesium [Mass/Vol]35.6 mg/dLNOOH HealthcareTriglyceride [Mass/Vol]178 mg/dL HighNINF - 150 mg/dLNOOH HealthcareCCF CMP (CMP) (FOR REMOTE [facility] USE)on 37-27-4803Tojcgtl [Mass/Vol]3.3 g/dLLow3.4 - 5.0 g/dLNOOH HealthcareALBUMIN GLOBULIN RATIO0.8NOOH HealthcareALP [Catalytic activity/Vol]63 U/L46 - 116 U/L [facility] HealthcareALT [Catalytic activity/Vol]46 U/L16 - 63 U/LNOMS HealthcareAnion gap [Moles/Vol]13.2 mmol/LNOMS HealthcareAST [Catalytic activity/Vol]21 U/L15 - 37 U/LNOMS HealthcareBilirubin [Mass/Vol]1.0 mg/dL0.2 - 1.0 mg/dLNOOH Healthcare Calcium [Mass/Vol]8.8 mg/dL8.5 - 10.1 mg/dLNOOH HealthcareChloride [Moles/Vol] 103 mmol/L98 - 107 mmol/LNOMS HealthcareCO2 [Moles/Vol]27.3 mmol/L21.0 - 32.0 mmol/LNOMS HealthcareCreatinine [Mass/Vol]1.09 mg/dL0.70 - 1.30 mg/dLNOOH HealthcareGFR/1.73 sq M.predicted CKD-EPI (S/P/Bld) [Vol rate/Area]>6060 - [facility] HealthcareGlobulin (S) [Mass/Vol]4.0 g/dLNOOH HealthcareGlucose [Mass/Vol] 147 mg/tUMjib31 - 106 mg/dLNOMS HealthcarePotassium [Moles/Vol]4.5 mmol/L3.5 - 5.1 mmol/LNOMS HealthcareProtein [Mass/Vol]7.3 g/dL6.4 - 8.2 g/dLNOMS Healthcare Sodium [Moles/Vol]139 mmol/L136 - 145 mmol/LNOMS HealthcareTBH EGFR-NON AF CITIZEN OF [place]>6060 - PINFNOMS HealthcareUrea nitrogen [Mass/Vol]28.0 mg/dLHigh7.0 - 18.0 mg/dLNOMS HealthcareUrea nitrogen/Creatinine [Mass ratio]25.7 mg/mgNOMS HealthcareNo Panel Informationon 47-49-6484Rdtjbvxmotudoi and review of laboratory resultsAbnormalNOMS HealthcareCLINISYNCNOMS HealthcareXR ANKLE RT MIN 3Von 71-47-9505ParMill[place] [address] XRay Report Signed Patient: LAVERN DIETZ MR#: [id number] : 1965 Acct:[id number] Age/Sex: 58 / M ADM Date: 01/16/24 Loc: Attending Dr: Katie Coker Ordering Physician: Katie Coker Date of Service: 01/16/24 Procedure(s): XR ankle RT min 3V Accession Number(s): [id number] cc: Shaikh Heather Baker; Katie Coker [place] [address] Patient Name: LAVERN DEWEY MRN: [id number] date: 1965 Sex: M Assigned Patient Location: Current Patient Location: Accession/Order Number: [id number] Exam Date: 01/16/2024 14:55 Report Date: 01/17/2024 [...] Ibrahim M.D. Signed By: 01/17/2449 DD/ TD/TT: Registered Dental Assistant:TBHRadiology, Radiologist, MD - 01/17/2024 [place] [address] XRay Report Signed Patient: LAVERN DIETZ MR#: [id number] : 1965 Acct:[id number] Age/Sex: 58 / M ADM Date: 01/16/24 Loc: Attending Dr: Katie Coker Ordering Physician: Katie Coker Date of Service: 01/16/24 Procedure(s): XR ankle RT min 3V Accession Number(s): [id number] cc: Shaikh Heather Baker; Katie Coker [facility] [place] [id number] Patient Name: LAVERN DEWEY MRN: [id number] date: 1965 Sex: M Assigned Patient Location: Current Patient Location: Accession/Order Number: [id number] Exam Date: 01/16/2024 14:55 Report Date: 01/17/2024 06:46 At the request of: KATIE CKOER Procedure: XR ankle RT min 3V PROCEDURE: [...] Ibrahim M.D. Signed By: 01/17/2449 DD/ TD/TT: Registered Dental Assistant: SELENA HealthcareRadiology Study observation (narrative)SELENA HealthcareXR ANKLE RT MIN 3VOrdered By: Radiologist Radiology on 39-05-7248OH[facility] Work Phone: XR ANKLE RT MIN 3Von 42-26-5998[place]pa[place] [address] XRay Report Signed Patient: LAVERN DIETZ MR#: [id number] : 1965 Acct:[id number] Age/Sex: 58 / M ADM Date: 10/22/23 Loc: EC Attending Dr: Rey Alcaraz D.P.M. Ordering Physician: Rey Alcaraz D.P.M. Date of Service: 10/22/23 Procedure(s): XR ankle RT min 3V Accession Number(s): [id number] cc: Shaikh Heather Baker; Rey Alcaraz D.P.M. [place] [id number] Patient Name: LAVERN DEWEY MRN: [id number] date: 1965 Sex: M Assigned Patient Location: Current Patient Location: Accession/Order Number: [id number] Exam Date: 10/22/2023 15:17 Report Date: 10/23/2023 [...] M.D. Signed By: 10/23/23737 DD/ 4 TD/TT: Registered Dental Assistant:RASadiologjoey, Radiologist, - 10/23/2023 [place] [address] XRay Report Signed Patient: LAVERN DIETZ MR#: [id number] : 1965 Acct:[id number] Age/Sex: 58 / M ADM Date: 10/22/23 Loc: EC Attending Dr: Rey Alcaraz D.P.M. Ordering Physician: Rey Alcaraz D.P.M. Date of Service: 10/22/23 Procedure(s): XR ankle RT min 3V Accession Number(s): [id number] cc: Shaikh Heather Baker; Rey Alcaraz D.P.M. The [place] [address] Patient Name: LAVERN DEWEY MRN: [facility]:[id number] date: 1965 Sex: M Assigned Patient Location: Current Patient Location: Accession/Order Number: [id number] Exam Date: 10/22/2023 15:17 Report Date: 10/23/2023 [...] M.D. Signed By: 10/23/2338 DD/ 4 TD/TT: Registered Dental Assistant: SELENA HealthcareRadiology Study observation (narrative)NOM HealthcareXR ANKLE RT MIN 3VOrdered By: Radiologist Radiology on 41-22-3173ZKUJ Healthcare Work Phone: XR ANKLE RT MIN 3Von 04-06-0222[place]qMill[place], [place] [address] XRay Report Signed Patient: LAVERN DIETZ MR#: [id number] : 1965 Acct:[id number] Age/Sex: 58 / M ADM Date: 09/10/23 Loc: EC Attending Dr: Rey Alcaraz D.P.M. Ordering Physician: Rey Alcaraz D.P.M. Date of Service: 09/10/23 Procedure(s): XR ankle RT min 3V Accession Number(s): [id number] cc: Shaikh Heather Baker; Rey Alcaraz D.P.M. The [place] [id number] Patient Name: LAVERN DEWEY MRN: [id number] date: 1965 Sex: M Assigned Patient Location: Current Patient Location: Accession/Order Number: [id number] Exam Date: 09/10/2023 14:38 Report Date: 09/11/2023 08:52 At the request of: RYE ALCARAZ Procedure: XR ankle RT min 3V [...] Signed By: 09/11/23 0854 DD/ 0852 TD/TT: Registered Dental Assistant:[facility], Radiologist, - 09/11/2023 [facility] [id number] XRay Report Signed Patient: LAVERN DIETZ MR#: [id number] : 1965 Acct:[id number] Age/Sex: 58 / M ADM Date: 09/10/23 Loc: [facility] Attending Dr: Rey Alcaraz D.P.M. Ordering Physician: Rey Alcaraz D.P.M. Date of Service: 09/10/23 Procedure(s): XR ankle RT min 3V Accession Number(s): [id number] cc: Shaikh Heather Baker; Rey Alcaraz D.P.M. [facility] [id number] Patient Name: LAVERN DEWEY MRN: [id number] date: 1965 Sex: M Assigned Patient Location: Current Patient Location: Accession/Order Number: [id number] Exam Date: 09/10/2023 14:38 Report Date: 09/11/2023 [...] [place] M.D. Signed By: 09/11/2354 DD/ TD/TT: Registered Dental Assistant: SELENA HealthcareRadiology Study observation (narrative)NOMS HealthcareXR ANKLE RT MIN 3VOrdered By: Radiologist Radiology on 36-28-0549H[facility] Work Phone: ct ANKLE RT WO CONon 39-66-[address]150[address] [address] [address] Scan Report Signed Patient: LAVERN DIETZ MR#: [id number] : 1965 Acct:[id number] Age/Sex: 58 / M ADM Date: 08/16/23 Loc: CT Attending Dr: Rey Alcaraz D.P.M. Ordering Physician: Rey Alcaraz D.P.M. Date of Service: 08/16/23 Procedure(s): CT ankle RT wo con Accession Number(s): [id number] cc: Shaikh Heather Baker [address] [address] Patient Name: LAVERN DEWEY MRN: [id number] date: 1965 Sex: M Assigned Patient Location: CT Current Patient Location: Accession/Order Number: [id number] Exam Date: 08/16/2023 15:26 Report Date: 08/19/2023 [...] M.D. Signed By: 08/19/23724 DD/ 0723 TD/TT: Registered Dental Assistant:TBHRadiology, Radiologist, - 08/19/2023 [place] [address] CT Scan Report Signed Patient: LAVERN DIETZ MR#: [id number] : 1965 Acct:[id number] Age/Sex: 58 / M ADM Date: 08/16/23 Loc: CT Attending Dr: Rey Alcaraz D.P.M. Ordering Physician: Rey Alcaraz D.P.M. Date of Service: 08/16/23 Procedure(s): CT ankle RT wo con Accession Number(s): [id number] cc: Shaikh Heather Baker [place] [address] Patient Name: LAVERN DEWEY MRN: [id number] date: 1965 Sex: M Assigned Patient Location: CT Current Patient Location: Accession/Order Number: [id number] Exam Date: 08/16/2023 15:26 Report Date: 08/19/2023 [...] M.D. Signed By: 08/19/2325 DD/ 2 TD/TT: Registered Dental Assistant: SELENA HealthcareRadiology Study observation (narrative)NOMS HealthcareCT ANKLE RT WO CONOrdered By: Radiologist Radiology on 44-88-3181[facility] Work Phone: No Panel Informationon 81-66-9085Svpbzfciu Study observation (narrative)NOMS HealthcareXR ANKLE RT MIN 3Von 43-79-6046[place] [address] XRay Report Signed Patient: LAVERN DIETZ MR#: [id number] : 1965 Acct:[id number] Age/Sex: 58 / M ADM Date: 07/16/23 Loc: RAD Attending Dr: Rey Alcaraz D.P.M. Ordering Physician: Rey Alcaraz D.P.M. Date of Service: 07/16/23 Procedure(s): XR ankle RT min 3V Accession Number(s): [id number] cc: Shaikh Heather Baker; Rey Alcaraz D.P.M. [place] [address] Patient Name: LAVERN DEWEY MRN: [id number] date: 1965 Sex: M Assigned Patient Location: [facility] Current Patient Location: Accession/Order Number: [id number] Exam Date: 07/16/2023 13:10 Report Date: 07/17/2023 [...] M.D. Signed By: 07/17/23654 DD/ 1 TD/TT: Registered Dental Assistant:RASadiology, Radiologist, - 07/31/2023 [place] [address] XRay Report Signed Patient: LAVERN DIETZ MR#: [id number] : 1965 Acct:[id number] Age/Sex: 58 / M ADM Date: 07/16/23 Loc: RAD Attending Dr: Rey Alcaraz D.P.M. Ordering Physician: Rey Alcaraz D.P.M. Date of Service: 07/16/23 Procedure(s): XR ankle RT min 3V Accession Number(s): [id number] cc: Shaikh Heather Baker; Rey Alcaraz D.P.M. [place] [address] Patient Name: LAVERN DEWEY MRN: [facility]:[id number] date: 1965 Sex: M Assigned Patient Location: [facility] Current Patient Location: Accession/Order Number: [id number] Exam Date: 07/16/2023 13:10 Report Date: 07/17/2023 [...] M.D. Signed By: 07/17/2355 DD/ 1 TD/TT: Registered Dental Assistant: SELENA MazariegosXR ANKLE RT MIN 3VOrdered By: Radiologist Radiology on 07-17-2023 [employer] Work Phone: XR FOOT RT MIN 3Von 46-68-0790[place] [address] XRay Report Signed Patient: LAVERN DIETZ MR#: [id number] : 1965 Acct:[id number] Age/Sex: 58 / M ADM Date: 07/16/23 Loc: RAD Attending Dr: Rey Alcaraz D.P.M. Ordering Physician: Rey Alcaraz D.P.M. Date of Service: 07/16/23 Procedure(s): XR foot RT min 3V Accession Number(s): [id number] cc: Shaikh Heather Baker; Rey Alcaraz D.P.M. [place] [address] Patient Name: LAVERN DEWEY MRN: [id number] date: 1965 Sex: M Assigned Patient Location: [facility] Current Patient Location: Accession/Order Number: [id number] Exam Date: 07/16/2023 13:10 Report Date: 07/17/2023 [...] M.D. Signed By: 07/17/2354 DD/ 1 TD/TT: Registered Dental Assistant:RASadiologjoey, Radiologist, - 07/31/2023 [place] [address] XRay Report Signed Patient: LAVERN DIETZ MR#: [id number] : 1965 Acct:[id number] Age/Sex: 58 / M ADM Date: 07/16/23 Loc: RAD Attending Dr: Rye Alcaraz D.P.M. Ordering Physician: Rey Alcaraz D.P.M. Date of Service: 07/16/23 Procedure(s): XR foot RT min 3V Accession Number(s): [id number] cc: Shaikh Heather Baker; Rey Alcaraz D.P.M. [place] [address] Patient Name: LAVERN DEWEY MRN: [facility]:[id number] date: 1965 Sex: M Assigned Patient Location: [facility] Current Patient Location: Accession/Order Number: [id number] Exam Date: 07/16/2023 13:10 Report Date: 07/17/2023 [...] M.D. Signed By: 07/17/23 0654 DD/ TD/TT: Registered Dental Assistant: SELENA MazariegosXR FOOT RT MIN 3VOrdered By: Radiologist Radiology on 07-17-2023 [employer] Work Phone: XR ANKLE RT MIN 3Von 37-43-3379[place] [address] XRay Report Signed Patient: LAVERN DIETZ MR#: [id number] : 1965 Acct:[id number] Age/Sex: 58 / M ADM Date: 06/26/23 Loc: RAD Attending Dr: Rey Alcaraz D.P.M. Ordering Physician: Rey Alcaraz D.P.M. Date of Service: 06/26/23 Procedure(s): XR ankle RT min 3V Accession Number(s): [id number] cc: Shaikh Heather Baker; Rey Alcaraz D.P.M. [place] [address] Patient Name: LAVERN DEWEY MRN: [id number] date: 1965 Sex: M Assigned Patient Location: [facility] Current Patient Location: [facility] Accession/Order Number: [id number] Exam Date: 06/26/2023 13:56 Report Date: 06/26/2023 [...] Signed By: 06/26/23 1633 DD/ 1631 TD/TT: Registered Dental Assistant:BRAXTONHRadiology, Radiologist, - 07/31/2023 [place] [address] XRay Report Signed Patient: LAVERN DIETZ MR#: [id number] : 1965 Acct:[id number] Age/Sex: 58 / M ADM Date: 06/26/23 Loc: RAD Attending Dr: Rey Alcaraz D.P.M. Ordering Physician: Rey Alcaraz D.P.M. Date of Service: 06/26/23 Procedure(s): XR ankle RT min 3V Accession Number(s): [id number] cc: Shaikh Heather Baker; Rey Alcaraz D.P.M. [place] [address] Patient Name: LAVERN DEWEY MRN: [id number] date: 1965 Sex: M Assigned Patient Location: [facility] Current Patient Location: [facility] Accession/Order Number: [id number] Exam Date: 06/26/2023 13:56 Report Date: 06/26/2023 [...] M.D. Signed By: 06/26/231632 DD/ 163 TD/TT: Registered Dental Assistant: SELENA HealthcareRadiology Study observation (narrative)SELENA HealthcareXR ANKLE RT MIN 3VOrdered By: Radiologist Radiology on 49-44-2873[facility] Work Phone: ct ANKLE RT WO CONon 16-86-3129[place] [address] CT Scan Report Signed Patient: LAVERN DIETZ MR#: [id number] : 1965 Acct:[id number] Age/Sex: 58 / M ADM Date: 06/25/23 Loc: CT Attending Dr: Rey Alcaraz D.P.M. Ordering Physician: Rey Alcaraz D.P.M. Date of Service: 06/25/23 Procedure(s): CT ankle RT wo con Accession Number(s): [id number] cc: Shaikh Heather Baker [place] [id number] Patient Name: LAVERN DEWEY MRN: [id number] date: 1965 Sex: M Assigned Patient Location: CT Current Patient Location: CT Accession/Order Number: [id number] Exam Date: 06/25/2023 15:11 Report Date: 06/25/2023 [...] severe degenerative osteoarthropathy of the knee with kzzt-ya-zjra articulation and remodeling of the lateral compartment SOFT TISSUES: Negative. No visible soft tissue swelling. EFFUSION: None visible. OTHER: Negative. CT/CT ankle RT wo con IMPRESSION: Stable ankle fusion Diffuse osteopenia Moderate to severe degenerative osteoarthritis of the knee Electronically authenticated by: GERA MONTGOMERY Date: 06/25/2023 16:07 Dictated By: Gera Montgomery M.D. Signed By: 06/25/23 1610 DD/ 1607 TD/TT: Registered Dental Assistant:TBHRadiology, Radiologist, MD - 06/25/2023 [place] [address] CT Scan Report Signed Patient: LAVERN DIETZ MR#: [id number] : 1965 Acct:[id number] Age/Sex: 58 / M ADM Date: 06/25/23 Loc: CT Attending Dr: Rey Alcaraz D.P.M. Ordering Physician: Rey Alcaraz D.P.M. Date of Service: 06/25/23 Procedure(s): CT ankle RT wo con Accession Number(s): [id number] cc: Shaikh Heather Baker [place] [id number] Patient Name: LAVERN DEWEY MRN: [id number] date: 1965 Sex: M Assigned Patient Location: CT Current Patient Location: CT Accession/Order Number: [id number] Exam Date: 06/25/2023 15:11 Report Date: 06/25/2023 [...] severe degenerative osteoarthropathy of the knee with srkj-il-wekd articulation and remodeling of the lateral compartment SOFT TISSUES: Negative. No visible soft tissue swelling. EFFUSION: None visible. OTHER: Negative. CT/CT ankle RT wo con IMPRESSION: Stable ankle fusion Diffuse osteopenia Moderate to severe degenerative osteoarthritis of the knee Electronically authenticated by: GERA MONTGOMERY Date: 06/25/2023 16:07 Dictated By: Gera Montgomery M.D. Signed By: 06/25/23 1610 DD/ 1607 TD/TT: Registered Dental Assistant: SELENA HealthcareRadiology Study observation (narrative)[facility] HealthcareCT ANKLE RT WO CONOrdered By: Radiologist Radiology on 22-45-6783[facility] Work Phone: XR ANKLE RT MIN 3Von 97-49-7737[place] [address] XRay Report Signed Patient: LAVERN DIETZ MR#: [id number] : 1965 Acct:[id number] Age/Sex: 58 / M ADM Date: 06/05/23 Loc: RAD Attending Dr: Rey Alcaraz D.P.M. Ordering Physician: Rey Alcaraz D.P.M. Date of Service: 06/05/23 Procedure(s): XR ankle RT min 3V Accession Number(s): [id number] cc: Shaikh Heather Baker; Rey Alcaraz D.P.M. [place] [address] Patient Name: LAVERN DEWEY MRN: [id number] date: 1965 Sex: M Assigned Patient Location: RAD Current Patient Location: Accession/Order Number: [id number] Exam Date: 06/05/2023 15:01 Report Date: 06/06/2023 [...] M.D. Signed By: 06/06/23721 DD/ 9 TD/TT: Registered Dental Assistant:BRAXTONHRadiology, Radiologist, - 07/31/2023 [place] [address] XRay Report Signed Patient: LAVERN DIETZ MR#: [id number] : 1965 Acct:[id number] Age/Sex: 58 / M ADM Date: 06/05/23 Loc: RAD Attending Dr: Rey Alcaraz D.P.M. Ordering Physician: Rey Alcaraz D.P.M. Date of Service: 06/05/23 Procedure(s): XR ankle RT min 3V Accession Number(s): [id number] cc: Shaikh Heather Baker; Rey Alcaraz D.P.M. [place] [address] Patient Name: LAVERN DEWEY MRN: [id number] date: 1965 Sex: M Assigned Patient Location: [facility] Current Patient Location: Accession/Order Number: [id number] Exam Date: 06/05/2023 15:01 Report Date: 06/06/2023 [...] M.D. Signed By: 06/06/23721 DD/ 9 TD/TT: Registered Dental Assistant: [facility] HealthcareRadiology Study observation (narrative)[facility] HealthcareXR ANKLE RT MIN 3VOrdered By: Radiologist Radiology on 83-63-0655[facility] Work Phone: XR ANKLE RT MIN 3Von 22-97-0946[place] [address] XRay Report Signed Patient: LAVERN DIETZ MR#: [id number] : 1965 Acct:[id number] Age/Sex: 58 / M ADM Date: 05/23/23 Loc: RAD Attending Dr: Rey Alcaraz D.P.M. Ordering Physician: Rey Alcaraz D.P.M. Date of Service: 05/23/23 Procedure(s): XR ankle RT min 3V Accession Number(s): [id number] cc: Shaikh Heather Baker; Rey Alcaraz D.P.M. [place] [id number] Patient Name: LAVERN DEWEY MRN: [id number] date: 1965 Sex: M Assigned Patient Location: [facility] Current Patient Location: [facility] Accession/Order Number: [id number] Exam Date: 05/23/2023 14:15 Report Date: 05/25/2023 [...] M.D. Signed By: 05/29/23908 DD/ 10 TD/TT: Registered Dental Assistant:BRAXTONHRadiology, Radiologist, - 07/31/2023 [place] [address] XRay Report Signed Patient: LAVERN DIETZ MR#: [id number] : 1965 Acct:[id number] Age/Sex: 58 / M ADM Date: 05/23/23 Loc: RAD Attending Dr: Rey Alcaraz D.P.M. Ordering Physician: Rey Alcaraz D.P.M. Date of Service: 05/23/23 Procedure(s): XR ankle RT min 3V Accession Number(s): [id number] cc: Shaikh Heather Baker; Rey Alcaraz D.P.M. [place] [id number] Patient Name: LAVERN DEWEY MRN: [id number] date: 1965 Sex: M Assigned Patient Location: [facility] Current Patient Location: [facility] Accession/Order Number: [id number] Exam Date: 05/23/2023 14:15 Report Date: 05/25/2023 [...] M.D. Signed By: 05/29/2309 DD/ 10 TD/TT: Registered Dental Assistant: SELENA MazariegosXR ANKLE RT MIN 3VOrdered By: Radiologist Radiology on 05-29-2023 [facility] Healthcare Work Phone: No Panel Informationon 81-13-6168Ggvcixoht Study observation (narrative)SELENA HealthcareXR ANKLE LT MIN 3Von 85-12-8568[place]fw[place], [place] [address] XRay Report Signed Patient: LAVERN DIETZ MR#: [id number] : 1965 Acct:[id number] Age/Sex: 58 / M ADM Date: 05/23/23 Loc: RAD Attending Dr: Rey Alcaraz D.P.M. Ordering Physician: Rey Alcaraz D.P.M. Date of Service: 05/23/23 Procedure(s): XR ankle LT min 3V Accession Number(s): [id number] cc: Shaikh Heather Baker; Rey Alcaraz D.P.M. [place] [address] Patient Name: LAVERN DEWEY MRN: [id number] date: 1965 Sex: M Assigned Patient Location: [facility] Current Patient Location: Accession/Order Number: [id number] Exam Date: 05/23/2023 14:15 Report Date: 05/25/2023 [...] M.D. Signed By: 05/25/231813 DD/ 10 TD/TT: Registered Dental Assistant:RASadiologjoey, Radiologist, - 05/25/2023 [place] [address] XRay Report Signed Patient: LAVERN DIETZ MR#: [id number] : 1965 Acct:[id number] Age/Sex: 58 / M ADM Date: 05/23/23 Loc: RAD Attending Dr: Rey Alcaraz D.P.M. Ordering Physician: Rey Alcaraz D.P.M. Date of Service: 05/23/23 Procedure(s): XR ankle LT min 3V Accession Number(s): [id number] cc: Shaikh Heather Baker; Rey Alcaraz D.P.M. [place] [address] Patient Name: LAVERN DEWEY MRN: [id number] date: 1965 Sex: M Assigned Patient Location: [facility] Current Patient Location: Accession/Order Number: [id number] Exam Date: 05/23/2023 14:15 Report Date: 05/25/2023 [...] M.D. Signed By: 05/25/231813 DD/ 10 TD/TT: Registered Dental Assistant: SELENA MazariegosXR ANKLE LT MIN 3VOrdered By: Radiologist Radiology on 05-25-2023 [facility] [employer] Work Phone: XR FOOT RT MIN 3Von 27-07-0347[place], [place] [address] XRay Report Signed Patient: LAVERN DIETZ MR#: [id number] : 1965 Acct:[id number] Age/Sex: 58 / M ADM Date: 05/23/23 Loc: RAD Attending Dr: Rey Alcaraz D.P.M. Ordering Physician: Rey Alcaraz D.P.M. Date of Service: 05/23/23 Procedure(s): XR foot RT min 3V Accession Number(s): [id number] cc: Shaikh Heather Baker; Rey Alcaraz D.P.M. [place] [address] Patient Name: LAVERN DEWEY MRN: [id number] date: 1965 Sex: M Assigned Patient Location: RAD Current Patient Location: RAD Accession/Order Number: [id number] Exam Date: 05/23/2023 14:15 Report Date: 05/25/2023 [...] M.D. Signed By: 05/25/231926 DD/ 24 TD/TT: Registered Dental Assistant:TBHRadiology, Radiologist, - 07/31/2023 [place] [address] XRay Report Signed Patient: LAVERN DIETZ MR#: [id number] : 1965 Acct:[id number] Age/Sex: 58 / M ADM Date: 05/23/23 Loc: RAD Attending Dr: Rey Alcaraz D.P.M. Ordering Physician: Rey Alcaraz D.P.M. Date of Service: 05/23/23 Procedure(s): XR foot RT min 3V Accession Number(s): [id number] cc: Shaikh Heather Baker; Rey Alcaraz D.P.M. [place] [address] Patient Name: LAVERN DEWYE MRN: [id number] date: 1965 Sex: M Assigned Patient Location: RAD Current Patient Location: RAD Accession/Order Number: [id number] Exam Date: 05/23/2023 14:15 Report Date: 05/25/2023 [...] M.D. Signed By: 05/25/231926 DD/ 24 TD/TT: Registered Dental Assistant: SELENA HealthcareRadiology Study observation (narrative)[facility] HealthcareXR FOOT RT MIN 3VOrdered By: Radiologist Radiology on 64-31-9534[facility] Work Phone: Glucose Glucometer (BldC) [Mass/Vol]Ordered By: Silver Briceño on 05-45-0555Burednr [Mass/Vol]137 mg/dLAshtabula County Medical Center Comment on above:Random Glucose Reference Range is dependent on time and content of last meal. Glucose of more than 200 mg/dL in a nonstressed, ambulatory subject supports the diagnosis of Diabetes Mellitus.Glucose [Mass/Vol]131 mg/dL [facility] CenterComment on above:Random Glucose Reference Range is dependent on time and content of last meal. Glucose of more than 200 mg/dL in a nonstressed, ambulatory subject supports the diagnosis of Diabetes Mellitus.Glucose Poct Glucometerson 94-23-8816Sbuukcw [Mass/Vol]137 mg/dLNormal [facility] CenterComment on above:Result Comment: Random Glucose Reference Range is dependent on time and content of last meal. Glucose of more than 200 mg/dL in a nonstressed, ambulatory subject supports the diagnosis of Diabetes Mellitus. PERFORMED BY: [facility] [address] [place] [address] PATHOLOGIST [employer] TEOFILO KHAN M.D.Performed By: #### GLULS #### Point of Care testing ,Glucose [Mass/Vol]131 mg/dLNormalAshtabula County Medical CenterComment on above:Result Comment: Random Glucose Reference Range is dependent on time and content of last meal. Glucose of more than 200 mg/dL in a nonstressed, ambulatory subject supports the diagnosis of Diabetes Mellitus. PERFORMED BY: [place] [address] PATHOLOGIST [employer] TEOFILO KHAN M.D.Performed By: #### GLULS #### Point of Care testing ,Basic Metabolic Panelon 21-55-1749Pcxni gap [Moles/Vol]13.5 mmol/LNormal 6.0-15.0[facility] CenterComment on above:Performed By: #### CBC, BMP #### [facility] [address] [place] [address] USACalcium [Mass/Vol]9.4 mg/dLNormal8.6-10.3FSelect Medical OhioHealth Rehabilitation Hospital - DublinComment on above:Result Comment: PERFORMED BY: [place] [address] PATHOLOGIST [employer] TEOFILO KHAN M.D.Performed By: #### CBC, BMP #### [facility] [address] [place] [address] USAChloride [Moles/Vol]102 mmol/CKyzdra34-331ErfoinoqyAshtabula County Medical CenterComment on above:Performed By: #### CBC, BMP #### [facility] [address] [place] [address] USACO2 [Moles/Vol]28.5 mmol/AEfyodg68.0-31.0[facility] CenterComment on above:Performed By: #### CBC, BMP #### [facility] [address] [place] [address] USACreatinine [Mass/Vol]0.99 mg/dLNormal0.70-1.30[facility] CenterComment on above:Performed By: #### CBC, BMP #### [facility] [address] [place] [address] USAGFR/1.73 sq M.predicted MDRD (S/P/Bld) [Vol rate/Area] mL/min/{1.73_m2}NormalAshtabula County Medical CenterComment on above: Performed By: #### CBC, BMP #### [facility] [address] [place] [address] USAGlucose [Mass/Vol]114 mg/yPYxai14-998ZuqlxjlxdAshtabula County Medical CenterComment on above:Result Comment: Random Glucose Reference Range is dependent on time and content of last meal. Glucose of more than 200 mg/dL in a nonstressed, ambulatory subject supports the diagnosis of Diabetes Mellitus. ADA recommended reference rangePerformed By: #### CBC, BMP #### [facility] [address] [place] [address] USAPotassium [Moles/Vol]4.0 mmol/LNormal3.5-5.1FSelect Medical OhioHealth Rehabilitation Hospital - DublinComment on above:Performed By: #### CBC, BMP #### [facility] [address] [place] [address] USASodium [Moles/Vol]140 mmol/JYewtht912-698QogyyhiyjAshtabula County Medical CenterComment on above:Performed By: #### CBC, BMP #### [facility] [address] [place] [address] USAUrea nitrogen [Mass/Vol]21 mg/dLNormal7-25[facility] Medical CenterComment on above:Performed By: #### CBC, BMP #### [place] [address] USABasophils Auto (Bld) [#/Vol]Ordered By: Silver Briceño on 18-92-6489Zltqfmqpl (Bld) [#/Vol]0.0 10*3/uL0.0-0.2FSelect Medical OhioHealth Rehabilitation Hospital - DublinBasophils/100 WBC Auto (Bld)Ordered By: Silver Briceño on 08-30-2022 Basophils/100 WBC (Bld)0.7 %.[facility] County Medical CenterCalcium [Mass/volume] in Serum or PlasmaOrdered By: Silver Briceño on 53-81-8076Hcbxhry [Mass/Vol]9.4 mg/dL8.6-10.3FSelect Medical OhioHealth Rehabilitation Hospital - DublinCarbon dioxide, total [Moles/volume] in Serum or PlasmaOrdered By: Silver Briceño on 14-25-8838FE8 [Moles/Vol]28.5 mmol/L21.0-31.0[facility] Medical CenterChloride [Moles/volume] in Serum or PlasmaOrdered By: Silver Briceño on 51-45-2476Nxrkkkex [Moles/Vol]102 mmol/L69-786NvysfvqmrAshtabula County Medical CenterComplete Blood Count Auto Diffon 91-66-3536Cgukfwtul (Bld) [#/Vol]0.0 10*3/uLNormal0.0-0.2FSelect Medical OhioHealth Rehabilitation Hospital - DublinComment on above:Result Comment: PERFORMED BY: [place] [address] PATHOLOGIST [employer] TEOFILO KHAN M.D.Performed By: #### CBC, BMP #### [facility] [address] [place] [address] USABasophils/100 WBC (Bld)0.7 %Normal.[facility] Medical CenterComment on above:Performed By: #### CBC, BMP #### [facility] [address] [place] [address] USAEosinophils (Bld) [#/Vol]0.3 10*3/uLNormal0.0-0.45 [facility] CenterComment on above:Performed By: #### CBC, BMP #### [facility] [address] [place] [address] USAEosinophils/100 WBC (Bld)6.1 %Normal.[facility] Medical CenterComment on above:Performed By: #### CBC, BMP #### [facility] [address] [place] [address] USAErythrocyte distribution width (RBC) [Ratio]14.5 %Normal 12.0-14.8[facility] Medical CenterComment on above:Performed By: #### CBC, BMP #### [facility] [address] [place] [address] USAHematocrit (Bld) [Volume fraction]36.5 %Low38.8-50.0 [facility] Medical CenterComment on above:Performed By: #### CBC, BMP #### [facility] [address] [place] [address] USAHemoglobin (Bld) [Mass/Vol]12.5 g/dLLow13.0-17.0[facility] Medical CenterComment on above:Performed By: #### CBC, BMP #### [facility] [address] [place] [address] USALymphocytes (Bld) [#/Vol]1.8 10*3/uLNormal1.00-4.8 [facility] CenterComment on above:Performed By: #### CBC, BMP #### [facility] [address] [place] [address] USALymphocytes/100 WBC (Bld)35.5 %Normal.[facility] Medical CenterComment on above:Performed By: #### CBC, BMP #### [facility] [address] [place] [address] USAMCH (RBC) [Entitic mass]29.2 jzSmfkar89.5-35.2FSelect Medical OhioHealth Rehabilitation Hospital - DublinComment on above:Performed By: #### CBC, BMP #### [facility] [address] [place] [id number] USAMCV (RBC) [Entitic vol]85.1 oOUnstpw02.5-101As[facility] Medical CenterComment on above:Performed By: #### CBC, BMP #### [facility] [address] [place] [address] USAMean Corpuscular HGB Conc34.3 g/qKKhobvt82.5-35.6FSelect Medical OhioHealth Rehabilitation Hospital - DublinComment on above:Performed By: #### CBC, BMP #### [facility] [address] [place] [address] USAMonocytes (Bld) [#/Vol]0.4 10*3/uLNormal0.0-0.8[facility] Medical CenterComment on above:Performed By: #### CBC, BMP #### [facility] [address] [place] [address] USAMonocytes/100 WBC (Bld)8.2 %Normal.[facility] County Medical CenterComment on above:Performed By: #### CBC, BMP #### [facility] [address] [place] [address] USANeutrophils (Bld) [#/Vol]2.5 10*3/uLNormal1.8-7.7FSelect Medical OhioHealth Rehabilitation Hospital - DublinComment on above:Performed By: #### CBC, BMP #### [facility] [address] [place] [address] USANeutrophils/100 WBC (Bld)49.5 %Normal.[facility] Medical CenterComment on above:Performed By: #### CBC, BMP #### [facility] [address] [place] [address] USANRBC%0.2 /100{WBC}Normal0-0.5FSelect Medical OhioHealth Rehabilitation Hospital - DublinComhawthorn center on above:Performed By: #### CBC, BMP #### [facility] [address] [place] [address] USAPlatelet mean volume (Bld) [Entitic vol]8.8 fLNormal 6.6-10.1FSelect Medical OhioHealth Rehabilitation Hospital - DublinComment on above:Performed By: #### CBC, BMP #### [facility] [address] [place] [address] USAPlatelets (Bld) [#/Vol]155 10*3/iMMjjmai861-459KepdnqbcyAshtabula County Medical CenterComment on above:Performed By: #### CBC, BMP #### [facility] [address] [place] [address] USARBC (Bld) [#/Vol]4.29 10*6/uLNormal3.90-5.60[facility] Medical CenterComment on above:Performed By: #### CBC, BMP #### [facility] [address] [place] [address] USAWBC (Bld) [#/Vol]5.1 10*3/uLNormal4.1-10.5FSelect Medical OhioHealth Rehabilitation Hospital - DublinComment on above:Performed By: #### CBC, BMP #### [facility] [address] [place] [address] USACreatinine [Mass/volume] in Serum or PlasmaOrdered By: Silver Briceño on 79-86-7178Ftkdkqfbfu [Mass/Vol]0.99 mg/dL0.70-1.30[facility] Medical CenterECG 12 lead ECGon 75-82-4408CGJ 12 lead ECGCLEVELAND [facility]INIC [facility] Main [place] [address] [place], [place] [id number] Electrocardiograph Report Signed Patient: Lavern Dietz MR#: [id number] : 1965 Acct:[id number] Age/Sex: 57 / M ADM Date: 08/30/22 [...] MUS Signed By Leo Robins MD 08/31/22 1223NoKettering Health TroyEosinophils Auto (Bld) [#/Vol]Ordered By: Silver Briceño on 56-27-9465Uthdczofblv (Bld) [#/Vol]0.3 10*3/uL 0.0-0.45[facility] Medical CenterEosinophils/100 WBC Auto (Bld)Ordered By: Silver Briceño on 80-29-0221Fdhuvaaclve/100 WBC (Bld)6.1 %.[facility] Medical CenterErythrocyte distribution width Auto (RBC) [Ratio]Ordered By: Silver Briceño on 14-05-2849Uzvkywnistl distribution width (RBC) [Ratio]14.5 %12.0-14.8 [facility] CenterGlucose [Mass/volume] in Serum or PlasmaOrdered By: Silver Briceño on 41-52-5002Wexahex [Mass/Vol]114 mg/cT60-111IyxmbyikvAshtabula County Medical CenterComment on above:ADA recommended reference rangeRandom Glucose Reference Range is dependent on time and content of last meal. Glucose of more than 200 mg/dL in a nonstressed, ambulatory subject supports the diagnosisof Diabetes Mellitus.Hematocrit Auto (Bld) [Volume fraction]Ordered By: Silver Briceño on 01-21-7771Mzxnofmmgc (Bld) [Volume fraction]36.5 %38.8-50.0 [facility] CenterHemoglobin [Mass/volume] in BloodOrdered By: Silver Briceño on 88-59-9262Zgcjycjhug (Bld) [Mass/Vol]12.5 g/dL13.0-17.0[facility] Medical CenterLeukocytes [#/volume] corrected for nucleated erythrocytes in Blood by Automated counOrdered By: Silver Briceño on 92-98-9802OEL corrected for nucl RBC Auto (Bld) [#/Vol]5.1 10*3/uL4.1-10.5FSelect Medical OhioHealth Rehabilitation Hospital - DublinLymphocytes Auto (Bld) [#/Vol]Ordered By: Silver Briceño on 13-85-1653Nawoxveefxs (Bld) [#/Vol]1.8 10*3/uL1.00-4.8[facility] Medical CenterLymphocytes/100 WBC Auto (Bld)Ordered By: Silver Briceño on 08-30-2022 Lymphocytes/100 WBC (Bld)35.5 %.[facility] Medical CenterMCH Auto (RBC) [Entitic mass]Ordered By: Silver Briceño on 72-93-5693ORF (RBC) [Entitic mass]29.2 pg27.5-35.2FSelect Medical OhioHealth Rehabilitation Hospital - DublinMCHC Auto (RBC) [Mass/Vol]Ordered By: Silver Briceño on 13-62-5205MIEP (RBC) [Mass/Vol]34.3 g/dL32.5-35.6FSelect Medical OhioHealth Rehabilitation Hospital - DublinMCV Auto (RBC) [Entitic vol]Ordered By: Silver Briceño on 20-59-2030INJ (RBC) [Entitic vol]85.1 fL83.5-101[facility] Medical CenterMonocytes Auto (Bld) [#/Vol]Ordered By: Silver Briceño on 71-38-5223Quiffyjqy (Bld) [#/Vol]0.4 10*3/uL0.0-0.8[facility] Medical CenterMonocytes/100 WBC Auto (Bld)Ordered By: Silver Briceño on 53-02-2778Xenhjrbvi/100 WBC (Bld)8.2 %. [facility] Medical CenterNeutrophils Auto (Bld) [#/Vol]Ordered By: Silver Briceño on 33-76-5052Bhlpvnviaxp (Bld) [#/Vol]2.5 10*3/uL1.8-7.7FSelect Medical OhioHealth Rehabilitation Hospital - DublinNeutrophils/100 WBC Auto (Bld)Ordered By: Silver Briceño on 97-11-2350Vuscbjrqume/100 WBC (Bld)49.5 %.[facility] CenterNo Panel InformationOrdered By: Silver Briceño on 05-43-0838Vfaslsagu GFR (CKD-EPI)> 60.0 mL/MinAshtabula County Medical CenterPharmacy Creatinine Clearance (Chem N/AFSelect Medical OhioHealth Rehabilitation Hospital - DublinNucleated erythrocytes [Presence] in Blood by Automated countOrdered By: Silver Briceño on 06-55-9354Ijkokckrr RBC Auto Ql (Bld)0.2 /100{WBC}0-0.5FSelect Medical OhioHealth Rehabilitation Hospital - DublinPlatelet mean volume Auto (Bld) [Entitic vol]Ordered By: Silver Briceño on 95-11-3609Hwqowkfg mean volume (Bld) [Entitic vol]8.8 fL6.6-10.1FSelect Medical OhioHealth Rehabilitation Hospital - Dublin Platelets Auto (Bld) [#/Vol]Ordered By: Silver Briceño on 06-86-8695Aetdzdysa (Bld) [#/Vol]155 10*3/dN759-919BpalkqmnwAshtabula County Medical CenterPotassium [Moles/volume] in Serum or PlasmaOrdered By: Silver Briceño on 34-59-4456Ljbgwpxgo [Moles/Vol]4.0 mmol/L3.5-5.1FSelect Medical OhioHealth Rehabilitation Hospital - DublinRBC Auto (Bld) [#/Vol]Ordered By: Silver Briceño on 25-33-3143SPT (Bld) [#/Vol]4.29 10*6/uL 3.90-5.60St. Vincent Hospitalerum or plasma anion gap determinationOrdered By: Silver Briceño on 92-63-4449Mjvia gap [Moles/Vol]13.5 mmol/L6.0-15.0St. Vincent Hospitalodium [Moles/volume] in Serum or PlasmaOrdered By: Silver Briceño on 20-36-5707Wrlmyg [Moles/Vol]140 mmol/R740-978 [facility] Medical CenterUrea nitrogen [Mass/volume] in Serum or Plasma Ordered By: Silver Briceño on 64-98-6136Euqj nitrogen [Mass/Vol]21 mg/dL7-25 [facility] CenterWBC Auto (Bld) [#/Vol]Ordered By: Silver Briceño on 73-90-5276NNF (Bld) [#/Vol]5.1 10*3/uL4.1-10.5FSelect Medical OhioHealth Rehabilitation Hospital - DublinGLYCOHEMOGLOBIN A1Con 03-19-9664RFU RECOMMENDATIONSEE [facility] Health CenterComment on above:Result Comment: ADA RECOMMENDED LIMIT 4.0 - 6.0 ADA THERAPEUTIC TARGET < 7.0 ACTION SUGGESTED > 7.0Performed By: #### A1C #### [facility] [address] [place] [address] [address] Idania TaiGlucose [Mass/Vol]243 mg/dLNoGrant HospitalComment on above:Performed By: #### A1C #### [facility] [address] [address] [address] Idania TaiHbA1c (Bld) [Mass fraction]10.1 %Critically high4.5-6.2[facility] Memorial HospitalComment on above:Performed By: #### A1C #### [facility] [address] [address] [address] Idania CannonID PROFILEon 76-54-7010ZKKP-HDL RATIO NORMSEE [facility] Health CenterComment on above:Result Comment: 3.3 - 4.4 LOW RISK 4.4 - 7.1 AVERAGE RISK 7.1 - 11.0 MODERATE RISK >11.0 HIGH RISKPerformed By: #### BMP, LIPID #### [facility] [address] [place] [address] Dr. Idania TaiCholesterol [Mass/Vol]172 mg/dLNormal<=200The [facility] Comment on above:Performed By: #### BMP, LIPID #### [facility] [address] [place] [address] Dr. Idania Lawrenceesterol in HDL [Mass/Vol]48 mg/aPDpjflj12-89Dud [facility] Medical CenterComment on above:Performed By: #### BMP, LIPID #### [facility] [address] [place] [address] Dr. Idania TaiCholesterol in LDL [Mass/Vol]95.6 mg/dLGreen Cross HospitalComment on above:Performed By: #### BMP, LIPID #### [facility] [address] [address] [address] Idania Lawrenceesternorman.total/Cholesterol in HDL [Mass ratio]3.6 {ratio} NormalThe [facility] County Medical CenterComment on above:Performed By: #### BMP, LIPID #### [facility] [address] [place] [address] Dr. Idania AlonsoL NORMAL> or = 60 mg/dl - LOW CARDIOVASCULAR RISK <40 mg/dl - HIGH CARDIOVASCULAR RISKGreen Cross HospitalComment on above:Performed By: #### BMP, LIPID #### [facility] [address] [address] [address] Idania Fleming CALC NORMALSEE BELOWGreen Cross HospitalComment on above:Result Comment: <100 mg/dl OPTIMAL 100 - 129 mg/dl NEAR OR ABOVE OPTIMAL 130 - 159 mg/dl BORDERLINE HIGH 160 - 189 mg/dl HIGH >190 mg/dl VERY HIGH Performed By: #### BMP, LIPID #### [facility] [address] [address] [address] Idania TaiTriglyceride [Mass/Vol]142 mg/dLNormal<=150[facility] Comment on above:Performed By: #### BMP, LIPID #### [facility] [address] [address] [address] Idania TaiVLDL CALC28.4 mg/dLGreen Cross HospitalComment on above: Performed By: #### BMP, LIPID #### [facility] [address] [place] [address] Dr. Idania TaiPROF CHEM 8 (BAS METB)on 62-79-0604Amoxj gap [Moles/Vol]11.0 mmol/LNormalTrihealth [facility] Memorial HospitalComhawthorn center on above:Performed By: #### BMP, LIPID #### [facility] [address] [place] [address] Dr. Idania TaiCalcium [Mass/Vol]9.1 mg/dLNormal8.5-10.1[facility] Comment on above:Performed By: #### BMP, LIPID #### [facility] [address] [address] [address] Idania TaiChloride [Moles/Vol]100 mmol/VIyytnj80-411YljTrihealth Mccullough-Hyde Memorial Hospital Comment on above:Performed By: #### BMP, LIPID #### [facility] [address] [address] [address] Idania TaiCO2 [Moles/Vol]32.6 mmol/LCritically high21.0-32.0[facility] Memorial HospitalComment on above:Performed By: #### BMP, LIPID #### [facility] [address] [address] [address] Idania TaiCreatinine [Mass/Vol]0.81 mg/dLNormal0.70-1.30The [facility] Medical CenterComment on above:Performed By: #### BMP, LIPID #### [facility] [address] [address] [address] Idania CasperGFR-AF CITIZEN [place]>60Normal>=60The [facility] Medical CenterComment on above:Performed By: #### BMP, LIPID #### [facility] [address] [address] [address] Idania CasperGFR-NON AF CITIZEN [place]>60Normal>=60The [facility] Medical CenterComment on above:Performed By: #### BMP, LIPID #### [facility] [address] [address] [address] Idania TaiGlucose [Mass/Vol]157 mg/dLCritically jvkq25-027Gob [facility] CenterComment on above:Performed By: #### BMP, LIPID #### [facility] [address] [address] [address] Idania TaiPotassium [Moles/Vol]3.6 mmol/LNormal3.5-5.1[facility] Comment on above:Performed By: #### BMP, LIPID #### [facility] [address] [address] [address] Idania TaiSodium [Moles/Vol]140 mmol/MBahlqv499-419Sns [facility] Comment on above:Performed By: #### BMP, LIPID #### [facility] [address] [address] [address] Idania TaiUrea nitrogen [Mass/Vol]16.0 mg/dLNormal7.0-18.0The [facility] Ontario Hospitalment on above:Performed By: #### BMP, LIPID #### [facility] [address] [address] [address] Idania TaiUrea nitrogen/Creatinine [Mass ratio]19.8 mg/mgNormalThe [facility] Medical CenterComment on above:Performed By: #### BMP, LIPID #### [facility] [address] [address] [address] Idania TaiPROF CHEM 8 (BAS METB)on 17-95-3375Pjvis gap [Moles/Vol]16.1 mmol/LNormalThe [facility] Medical CenterComment on above:Performed By: #### BMP #### [facility] [address] [address] [address] Idania TaiCalcium [Mass/Vol]9.4 mg/dLNormal8.5-10.1The [facility] Comment on above:Performed By: #### BMP #### [facility] [address] [place] [address] Dr. Idania TaiChloride [Moles/Vol]98 mmol/VYvsudk15-542AyhTrihealth Mccull[facility] Comment on above:Performed By: #### BMP #### [facility] [address] [place] [address] Dr. Idania TaiCO2 [Moles/Vol]26.0 mmol/HDtzmzk83.0-32.0The [facility] Comment on above:Performed By: #### BMP #### [facility] [address] [place] [address] Dr. Idania TaiCreatinine [Mass/Vol]0.78 mg/dLNormal0.70-1.30The [facility] Medical CenterComment on above:Performed By: #### BMP #### [facility] [address] [place] [address] Dr. Idania CasperGFR-AF CITIZEN [place]>60Normal>=60The [facility] Medical CenterComment on above:Performed By: #### BMP #### [facility] [address] [address] [address] Idania CasperGFR-NON AF CITIZEN [place]>60Normal>=60The [facility] Medical CenterComment on above:Performed By: #### BMP #### [facility] [address] [place] [address] Dr. Idania TaiGlucose [Mass/Vol]131 mg/dLCritically msmn35-376Hwo [facility] CenterComment on above:Performed By: #### BMP #### [facility] [address] [place], [place] [address] Dr. Idania TaiPotassium [Moles/Vol]4.1 mmol/LNormal3.5-5.1[facility] Comment on above:Performed By: #### BMP #### [facility] [address] [place], [place] [address] Dr. Idania TaiSodium [Moles/Vol]136 mmol/EXswbuw443-822Wte [facility] Comment on above:Performed By: #### BMP #### [facility] [address] [address] [address] Idania TaiUrea nitrogen [Mass/Vol]19.0 mg/dLCritically high7.0-18.0The [facility] Medical CenterComment on above:Performed By: #### BMP #### [facility] [address] [address] [address] Idania TaiUrea nitrogen/Creatinine [Mass ratio]24.4 mg/mgNoalThPremier Health Miami Valley HospitalComment on above:Performed By: #### BMP #### [facility] [id number] Idania TaiGlucose Glucometer ([facility]) [Mass/Vol]Ordered By: Sav Andrews on 13-84-6977Nxkaxoe [Mass/Vol]113 mg/dLAshtabula County Medical CenterComment on above:Random Glucose Reference Range is dependent on time and content of last meal. Glucose of more than 200 mg/dL in a nonstressed, ambulatory subject supports the diagnosis of Diabetes Mellitus.Glucose Poct Glucometerson 57-87-5926Yqzvulu [Mass/Vol]113 mg/dLNoKettering Health Troy Comment on above:Result Comment: Random Glucose Reference Range is dependent on time and content of last meal. Glucose of more than 200 mg/dL in a nonstressed, ambulatory subject supports the diagnosis of Diabetes Mellitus. PERFORMED BY: [address] [address] PATHOLOGIST COMMISSIONER [employer] TEOFILO KHAN M.D.Performed By: #### GLULS #### Point of Care testing ,COVID-19 Antigenon 89-83-1968GMFZA-19 AntigenHealthcare Worker?: N Reference Range: Negative Negative [...] developed and its performance characteristic determined by [facility] and validated at [facility]. This test has not been [...] for SARS Antigen by SIN PERFORMED BY: [address] [address] PATHOLOGIST COMMISSIONER [employer] TEOFILO KHAN M.D.[facility] County HospitalComment on above: Performed By: #### COVID-19 MAYRA, SOFIANEG #### [place] [address] USACOVID-19 SOFIAOrdered By: Sav Andrews on 07-27-2022 SARS-CoV+SARS-CoV-2 (COVID-19) Ag IA.rapid Ql (Resp)NegativeNegativeAshtabula County Medical CenterComment on above:This is a duplicate Mayra SARS Antigen (SIN) result to be used for statistical tracking purpose only.No Panel InformationOrdered By: Sav Andrews on 78-94-6470GFOG Antigen (LFIA)[facility]. Vincent Hospitalofia Ag Negativeon 63-77-3096Txjjm Ag NegativeNegative NormalNegativeAshtabula County Medical CenterComment on above:Result Comment: This is a duplicate Mayra SARS Antigen (SIN) result to be used for statistical tracking purpose only. PERFORMED BY: [place] [address] PATHOLOGIST COMMISSIONER [employer] TEOFILO KHAN M.D.Performed By: #### COVID-19 MAYRA, SOFIANEG #### [place] [address] USACT ANKLE RT WO CONon 60-92-8486VM ANKLE RT WO CON EXAMINATION: CT ANKLE [...] severe tricompartmental osteoarthropathy of the knee with piiq-lc-mqtg articulation of the lateral compartment. SOFT TISSUES: Negative. No visible soft tissue swelling. EFFUSION: None visible. OTHER: Negative. IMPRESSION: Progression of subchondral degenerative cystic changes of the tibial plafond and calcaneus Moderate to severe knee osteoarthritis with vwix-uh-gcvx articulation of the lateral compartment Electronically authenticated by: GERA MONTGOMERY Date: 2021-11-14 16:[address] [place] [address] AUTO DIFFon 63-42-8422YJHM #0.1 103/ulNormal0.0-0.1The [facility] Medical CenterComment on above:Performed By: #### CBC ####[facility] L[address]fe[address] [place], [place] [address]Dr.Idania ChangBasophils/100 WBC (Bld)0.8 %Normal0.2-2.0The [facility] Medical CenterComment on above:Performed By: #### CBC ####[facility] W[address] [place], [place] [address]Dr.Yilan ChangEO #0.2 103/ulNormal0.0-0.7The [facility] Medical CenterComment on above:Performed By: #### CBC ####[facility] My[address] [place], [place] [address]Dr.Idania ChangEosinophils/100 WBC (Bld)2.2 %Normal 0.9-7.0The [facility] Medical CenterComment on above:Performed By: #### CBC ####[facility] Z[address] [place], [place] [address]Dr.Idania Tai Erythrocyte distribution width (RBC) [Ratio]13.1 %Yknzen55.0-15.0The [facility] CenterComhawthorn center on above:Performed By: #### CBC ####[facility] An[address] [place], [place] [address]Dr.Idania ChangHematocrit (Bld) [Volume fraction]44.5 %Thlakv11.0-54.0The [facility] Medical CenterComment on above:Performed By: #### CBC ####[facility] J[address] [place], [place] [address]Dr.Idania ChangHemoglobin (Bld) [Mass/Vol]14.9 g/dL Spdaai77.0-18.0The [facility] Medical CenterComment on above:Performed By: #### CBC ####[facility] Brarxmt[address] [place], [place] [address]Dr. Idania ChangIG #0.13 10e3/ulCritically high0.00-0.03The [facility] Medical CenterComment on above:Performed By: #### CBC ####[facility] [address] [address]Dr.Idania TaiIG %1.5 %Critically high0.0-0.5The [facility] Medical CenterComment on above:Performed By: #### CBC ####[facility] [address] [address]Dr.Idania TaiLYMPH #2.4 103/ulNormal1.2-3.8The [facility] Medical CenterComment on above:Performed By: #### CBC ####[facility] Xvukr[address] [place], [place] [address]Dr. Idania TaiLymphocytes/100 WBC (Bld)27.7 %Opqxnw09.5-60.0The [facility] Comment on above:Performed By: #### CBC ####[facility] Gyfivpglke[address] [place], [place] [address]Dr.Idania TaiMANUAL DIFF REQNONormalThe [facility] Medical CenterComment on above:Performed By: #### CBC ####[facility] Ses[address] [place], [place] [address]Dr.Idania TaiH (RBC) [Entitic mass]28.9 inTlblkg12.9-34.0The [facility] CenterComment on above: Performed By: #### CBC ####[facility] T[address]mdl[address] [place], [place] [address]Dr.Idania TaiHC (RBC) [Mass/Vol]33.5 g/dLNormal 29.9-35.2The [facility] Medical CenterComment on above:Performed By: #### CBC ####[facility] [address]xw[address] [place], [place] [address]Dr. Idania TaiV (RBC) [Entitic vol]86.4 tHJivulz82.0-94.0The [facility] Comment on above:Performed By: #### CBC ####[facility] [address]qrg[address] [place], [place] [address]Dr.Idania TaiMONO #0.6 103/ulNormal0.3-0.8 The Drury HospitalComment on above:Performed By: #### CBC ####[facility] [address] [address]Dr.Idania Tai Monocytes/100 WBC (Bld)6.4 %Normal1.7-12.0The [facility] Medical CenterComment on above: Performed By: #### CBC ####[facility] [address] [address]Dr.Idania TaiNEUT #5.3 103/ulNormal1.4-6.5The Drury HospitalComment on above:Performed By: #### CBC ####[facility] Lkw[address] [place], [place] [address]Dr.Idania TaiNeutrophils/100 WBC (Bld)61.4 %Xuwljt19.0-75.0The [facility] Medical CenterComment on above:Performed By: #### CBC ####[facility] Y[address]so[address] [place], [place] [address]Dr.Idania TaiPlatelet mean volume (Bld) [Entitic vol]9.7 fLNormal9.5-13.5 The [facility] CenterComment on above:Performed By: #### CBC ####[facility] Bh[address] [place], [place] [address]Dr.Idania PqemdPAO615 103/jtPuhbps686-585Czz [facility] CenterComment on above:Performed By: #### CBC ####[facility] Mxxykvulx[address] [place], [place] [address]Dr. Idania ChangRBC5.15 106/ulNormal4.70-6.10The Drury HospitalComment on above: Performed By: #### CBC ####[facility] Cs[address] [place], [place] [address]Dr.Idania ChangWBC8.6 103/ulNormal4.0-11.0The [facility] Medical CenterComment on above:Performed By: #### CBC ####[facility] [address] [place], [place] [address]Dr.Idania TaiGLYCOHEMOGLOBIN A1Con 88-24-2378VJC RECOMMENDATIONADA THERAPEUTIC TARGET 6.0 - 7.0 ACTION SUGGESTED > 7.0NoGrant HospitalComment on above:Performed By: #### A1C ####[facility] [address] [address]Dr. Idania TaiGlucose [Mass/Vol]128 mg/dLNoGrant HospitalComment on above:Performed By: #### A1C ####[facility] [address] [address]Dr.Yilan TaiHbA1c (Bld) [Mass fraction]6.1 % Critically high<=6.0The [facility] Medical CenterComment on above:Performed By: #### A1C ####[facility] [address] [address]Dr. Idania TaiLIPID PROFILEon 26-04-7198PEJQ-HDL RATIO NORMSEE BELOWGreen Cross HospitalComment on above:Result Comment: 3.3 - 4.4 LOW RISK 4.4 - 7.1 AVERAGE RISK 7.1 - 11.0 MODERATE RISK >11.0 HIGH RISKPerformed By: #### LIPID, CMP #### [facility] [address] [address] [address] Idania Lawrenceesterol [Mass/Vol]175 mg/dLNormal<=200The [facility] Comment on above:Performed By: #### LIPID, CMP #### [facility] [address] [address] [address] Idania TaiCholesterol in HDL [Mass/Vol]54 mg/vYRaviyu00-53Ary [facility] CenterComment on above:Performed By: #### LIPID, CMP #### [facility] [address] [address] [address] Idania Lawrenceesterol in LDL [Mass/Vol]87.2 mg/dLGreen Cross HospitalComment on above:Performed By: #### LIPID, CMP #### [facility] [address] [address] [address] Idania Pratt.total/Cholesterol in HDL [Mass ratio]3.2 {ratio} NormalThe Neil HospitalComment on above:Performed By: #### LIPID, CMP #### [facility] [address] [address] [address] Idania Blakely NORMAL> or = 60 mg/dl - LOW CARDIOVASCULAR RISK <40 mg/dl - HIGH CARDIOVASCULAR RISKCleveland Clinic Hillcrest Hospital on above:Performed By: #### LIPID, CMP #### [facility] [address] [address] [address] Idania TaiLDL CALC NORMALSEE BELOWNoGrant HospitalComment on above:Result Comment: <100 mg/dl OPTIMAL 100 - 129 mg/dl NEAR OR ABOVE OPTIMAL 130 - 159 mg/dl BORDERLINE HIGH 160 - 189 mg/dl HIGH >190 mg/dl VERY HIGH Performed By: #### LIPID, CMP #### [facility] [address] [place] [address] Dr. Idania TaiTriglyceride [Mass/Vol]169 mg/dLCritically high<=150The [facility] on above:Performed By: #### LIPID, CMP #### [facility] [address] [place] [address] Dr. Idania TaiVLDL CALC33.8 mg/dLNoGrant HospitalComhawthorn center on above: Performed By: #### LIPID, CMP #### [facility] [address] [place] [address] Dr. Idania PaizROALBUMIN, RAND URon 04-11-2043wFIR7.9 mg/LNormal<=30.0The [facility] on above:Performed By: #### MALBR #### [facility] [address] [place] [address] Dr. Idania TaiPROF 14(COMP METB)on 12-28-3335Lpoqagv [Mass/Vol]3.7 g/dLNormal 3.4-5.0The [facility] on above:Performed By: #### LIPID, CMP #### [facility] [address] [place] [address] Dr. Idania TaiAlbumin/Globulin [Mass ratio]0.9 {ratio}NormalThe [facility] CenterComment on above:Performed By: #### LIPID, CMP #### [facility] [address] [address] [address] Idania Woodson [Catalytic activity/Vol]73 U/IGknijo48-098Rgj [facility] CenterComment on above:Performed By: #### LIPID, CMP #### [facility] [address] [address] [address] Idania Marie [Catalytic activity/Vol]68 U/LCritically ozcw67-32Shb [facility] CenterComment on above:Performed By: #### LIPID, CMP #### [facility] [address] [address] [address] Idania Osman gap [Moles/Vol]10.2 mmol/LNormalThe [facility] Comment on above:Performed By: #### LIPID, CMP #### [facility] [address] [address] [address] Idania TaiAST [Catalytic activity/Vol]30 U/XHtprtz71-20Xjw [facility] CenterComment on above:Performed By: #### LIPID, CMP #### [facility] [address] [address] [address] Idania TaiBilirubin [Mass/Vol]1.0 mg/dLNormal0.2-1.3The [facility] Comment on above:Performed By: #### LIPID, CMP #### [facility] [address] [address] [address] Idania TaiCalcium [Mass/Vol]8.5 mg/dLNormal8.5-10.1The [facility] Comment on above:Performed By: #### LIPID, CMP #### [facility] [address] [address] [address] Idania TaiChloride [Moles/Vol]101 mmol/JAtsxvy40-746Tzt [facility] Comment on above:Performed By: #### LIPID, CMP #### [facility] [address] [address] [address] Idania TaiCO2 [Moles/Vol]31.6 mmol/LCritically high22.0-30.0The [facility] CenterComment on above:Performed By: #### LIPID, CMP #### [facility] [address] [address] [address] Idania TaiCreatinine [Mass/Vol]0.67 mg/dLNormal0.66-1.25The [facility] on above:Performed By: #### LIPID, CMP #### [facility] [address] [address] [address] Idania CasperGFR-AF CITIZEN OF [place]>60Normal>=60The [facility] CenterComment on above:Performed By: #### LIPID, CMP #### [facility] [address] [address] [address] Idania CasperGFR-NON AF CITIZEN OF [place]>60Normal>=60The [facility] on above:Performed By: #### LIPID, CMP #### [facility] [address] [address] [address] Idania TaiGlobulin (S) [Mass/Vol]4.0 g/dLNormalThe [facility] CenterComment on above:Performed By: #### LIPID, CMP #### [facility] [address] [address] [address] Idania TaiGlucose [Mass/Vol]114 mg/dLCritically adhi10-684Hre [facility] Hospitalment on above:Performed By: #### LIPID, CMP #### [facility] [address] [address] [address] Idania TaiPotassium [Moles/Vol]4.8 mmol/LNormal3.4-5.0The [facility] Comment on above:Performed By: #### LIPID, CMP #### [facility] [address] [address] [address] Idania TaiProtein [Mass/Vol]7.7 g/dLNormal6.1-8.2The [facility] Comment on above:Performed By: #### LIPID, CMP #### [facility] [address] [address] [address] Idania TaiSodium [Moles/Vol]138 mmol/IOapohy206-358Fws [facility] Comment on above:Performed By: #### LIPID, CMP #### [facility] [address] [place], [place] [address] Dr. Idania TaiUrea nitrogen [Mass/Vol]12.0 mg/dLNormal7.0-18.0[facility] HospitalComment on above:Performed By: #### LIPID, CMP #### [facility] [address] [place], [place] [address] Dr. Idania TaiUrea nitrogen/Creatinine [Mass ratio]17.9 mg/mgNormalThe [facility] CenterComment on above:Performed By: #### LIPID, CMP #### [facility] [address] [place], [place] [address] Dr. Idania Tai Vital Signs Date TimeVital SignValuePerforming SgxsujsugOsvoiqdk70-53-6184 15:23-0400Body yffznu826.6 cmAnthony Rusher DPM Work Phone: [phone]14[facility] CenterMsoycnbrfn43-75-8721 15:23-0400Body mass index (BMI) [Ratio]39.22 kg/k0Jtiudnk Rusher DPM Work Phone: [phone]09-30-2025 15:23-0400Body .22 kgAnthony Rusher DPM Work Phone: [phone]09-18-2025 15:12-0400Body eltbvz577.28 cmLisa Aichholz TRANSIT PLANNING MANAGER-C Work Phone: [facility]09-18-2025 15:12-0400 Body mass index (BMI) [Ratio]39.2 kg/m2Lisa Aichholz TRANSIT PLANNING MANAGER-C Work Phone: [facility]09-18-2025 15:12-0400 Body lszniuhlhcq40.8 [degF]Luci Aichholz TRANSIT PLANNING MANAGER-C Work Phone: [facility]09-18-2025 15:12-0400 Body yxcgkw468.18 kgLisa Aichholz TRANSIT PLANNING MANAGER-C Work Phone: [phone] [place], [place] 8500609-18-2025 15:12-0400 Diastolic blood yoykgbgq27 mm[Hg]Luci Briseidaholz TRANSIT PLANNING MANAGER-C Work Phone: [phone] [place], [place] 8500609-18-2025 15:12-0400 Heart rate69 /minLisa Aichholz TRANSIT PLANNING MANAGER-C Work Phone: [phone]09-18-2025 15:12-0400 Respiratory rate20 /minLisa Aichholz TRANSIT PLANNING MANAGER-C Work Phone: [phone]09-18-2025 15:12-0400 SaO2% (BldA) [Mass fraction]96 %Luci Aichholz TRANSIT PLANNING MANAGER-C Work Phone: [phone]09-18-2025 15:12-0400 Systolic blood cxwghiim165 mm[Hg]Luci Alexsandrahholz TRANSIT PLANNING MANAGER-C Work Phone: [phone]08-07-2025 15:54-0400 Body mass index (BMI) [Ratio]40.32 kg/m2Lisa Aichholz TRANSIT PLANNING MANAGER Work Phone: [facility] CenterNnccjwvanb87-01-9533 15:54-0400Body temperature 97.81 [degF]Luci Alexsandrahholz TRANSIT PLANNING MANAGER Work Phone: [facility] CenterOdsbhdzyle79-90-9769 15:54-0400Body erjtie921.31 kgLisa Aichholz TRANSIT PLANNING MANAGER Work Phone: [facility] CenterHbvfczticg76-40-7672 15:54-0400Diastolic blood hfkxpagg80 mm[Hg]Luci Aichholz TRANSIT PLANNING MANAGER Work Phone: [facility] CenterGbygmyiqrk12-01-9232 15:54-0400Heart rate56 /min Luci Aichholz TRANSIT PLANNING MANAGER Work Phone: [facility] CenterXrjsryhsxo31-20-4949 15:54-0400Respiratory rate20 /minLisa Aichholz TRANSIT PLANNING MANAGER Work Phone: [facility] CenterWaxygzovjl89-08-6043 15:54-7028IqN5% (BldA) [Mass fraction]96 %Luci Rios TRANSIT PLANNING MANAGER Work Phone: [facility] CenterPxcwbqclmj85-47-0527 15:54-0400Systolic blood zujrgpdf742 mm[Hg]Luci Jollyz TRANSIT PLANNING MANAGER Work Phone: [facility] CenterLqitfvbidb17-41-8276 15:43-0400Body mass index (BMI) [Ratio]39.67 kg/m2Lisa Briseidaholz TRANSIT PLANNING MANAGER Work Phone: [facility] CenterBatptxnipl57-32-0835 15:43-0400Body temperature 97.81 [degF]Luci Rikz TRANSIT PLANNING MANAGER Work Phone: [facility] CenterCsqyubjzty57-54-8675 15:43-0400Body ogkmjq125.49 kgLisa Jollyz TRANSIT PLANNING MANAGER Work Phone: [facility] CenterQzbzblpfdy02-45-0175 15:43-0400Diastolic blood epqvfdxu97 mm[Hg]Luci Rios TRANSIT PLANNING MANAGER Work Phone: [facility] CenterOyudlqkupp44-79-1062 15:43-0400Heart rate81 /min Luciemma Jollyz TRANSIT PLANNING MANAGER Work Phone: [facility] CenterRahilczbkd84-47-9353 15:43-0400Respiratory rate18 /minLisa Rios TRANSIT PLANNING MANAGER Work Phone: [facility] CenterAnqatzyyes87-85-5873 15:43-9945WwT8% (BldA) [Mass fraction]96 %Luci Jollyz TRANSIT PLANNING MANAGER Work Phone: [facility] CenterAjmszvxcfy70-29-9211 15:43-0400Systolic blood yavkkngn171 mm[Hg]Luci Rikz TRANSIT PLANNING MANAGER Work Phone: [facility] CenterHdnuxgofpx22-57-0921 15:51-0400Body mass index (BMI) [Ratio]38.8 kg/m2Ewasa Rikz TRANSIT PLANNING MANAGER Work Phone: [facility] CenterUmnwjicwzy63-37-7215 15:51-0400Body temperature 98.71 [degF]Luci Briseidaholz TRANSIT PLANNING MANAGER Work Phone: [facility] CenterLnhfuokezg38-28-6592 15:51-0400Body olzqxa080.05 kgLisa Briseidaholz TRANSIT PLANNING MANAGER Work Phone: [facility] CenterDidarsaqfg10-14-4682 15:51-0400Diastolic blood leaiuntw25 mm[Hg]Luci Briseidaholz TRANSIT PLANNING MANAGER Work Phone: [facility] CenterBntxqepqrn74-88-3314 15:51-0400Heart rate67 /min Luci Briseidaholz TRANSIT PLANNING MANAGER Work Phone: [facility] CenterBrofyfmstz27-01-6254 15:51-0400Respiratory rate20 /minLisa Alexsandrahholz TRANSIT PLANNING MANAGER Work Phone: [facility] CenterYtqwjyokcq55-35-3963 15:51-2292RdT8% (BldA) [Mass fraction]95 %Luci Briseidaholz TRANSIT PLANNING MANAGER Work Phone: [facility] CenterUzjfnrqdtx40-13-8611 15:51-0400Systolic blood ycvadbxw684 mm[Hg]Luci Briseidaholz TRANSIT PLANNING MANAGER Work Phone: [facility] CenterAggghmylsj67-03-6862 16:06-0400Body mass index (BMI) [Ratio]38.54 kg/m2Lisa Briseidaholz TRANSIT PLANNING MANAGER Work Phone: [facility] CenterNjhyhktfnn02-63-8334 16:06-0400Body temperature 98.1 [degF]Luci Briseidaholz TRANSIT PLANNING MANAGER Work Phone: [facility] CenterKphyizufym09-61-7807 16:06-0400Body yynpmx484.32 kgLisa Briseidaholz TRANSIT PLANNING MANAGER Work Phone: [facility] CenterMfmuflslrs18-48-5618 16:06-0400Diastolic blood hanvszto47 mm[Hg]Luci Briseidaholz TRANSIT PLANNING MANAGER Work Phone: [facility] CenterYpklmddexr29-31-5997 16:06-0400Heart rate66 /min Luci Alexsandrahholz TRANSIT PLANNING MANAGER Work Phone: [facility] CenterCzsoykxthz61-62-6162 16:06-0400Respiratory rate18 /minLisa Rios TRANSIT PLANNING MANAGER Work Phone: [facility] CenterWewhdhhhhs69-38-7155 16:06-8297DxX7% (BldA) [Mass fraction]97 %Luci Rios TRANSIT PLANNING MANAGER Work Phone: [facility] CenterRlfbftidcw50-15-3695 16:06-0400Systolic blood wbonobyn892 mm[Hg]Luci Rios TRANSIT PLANNING MANAGER Work Phone: [facility] CenterOygolpcmrm82-88-1967 15:27-0400Body ulkzck612.6 cmAnthony Rusher DPM Work Phone: [facility] CenterYytykcixke43-70-2381 15:27-0400Body mass index (BMI) [Ratio]39.09 kg/r3Ybwbgwt Rusher DPM Work Phone: [facility] CenterJfpivqkxkr40-28-9119 15:27-0400Body jhdkya858.86 kgAnthony Rusher DPM Work Phone: [facility] CenterEavqsntlqw02-94-5497 15:27-0500Body pytbuz716.6 Cristian Rios TRANSIT PLANNING MANAGER Work Phone: [facility] CenterLdnpivufpx47-69-6455 15:27-0500Body mass index (BMI) [Ratio]39.29 kg/m2Luci Jollyz TRANSIT PLANNING MANAGER Work Phone: [facility] CenterZltocqrvxq58-53-4342 15:27-0500Body temperature 97.81 [degF]Luci Rios TRANSIT PLANNING MANAGER Work Phone: [facility] CenterPselkkoeyp57-59-3232 15:27-0500Body owvpfm694.41 kgLuci Goinsholz TRANSIT PLANNING MANAGER Work Phone: [facility] CenterXpsjnhzyoj18-28-3901 15:27-0500Diastolic blood xdmeniyh167 mm[Hg]Luci Rios TRANSIT PLANNING MANAGER Work Phone: [facility] CenterDoqoghnecm90-36-2356 15:27-0500Heart rate76 /min Luci Rios TRANSIT PLANNING MANAGER Work Phone: [address] [address]Hxpskciohm81-49-3432 15:27-0500Respiratory rate20 /minLuci Rios TRANSIT PLANNING MANAGER Work Phone: [phone] CenterAfrbiqkplu12-89-8819 15:27-7282ClG0% (BldA) [Mass fraction]97 %Luci Rios TRANSIT PLANNING MANAGER Work Phone: [facility] CenterOyigdqhzzf82-15-7663 15:27-0500Systolic blood yzlkrxpa233 mm[Hg]Luci Rios TRANSIT PLANNING MANAGER Work Phone: [facility] CenterAghfveuzhj60-91-2421 15:05-0500Body ivinxf605.6 cmBramanda Velasquez TRANSIT PLANNING MANAGER Work Phone: [facility] CenterDhflaaawbs45-44-9404 15:05-0500Body mass index (BMI) [Ratio]38.41 kg/v8Bdurhqph Velasquez TRANSIT PLANNING MANAGER Work Phone: [facility] CenterAcfsuqpspt10-47-0436 15:05-0500Body edeywu782.96 kgBramanda Velasquez TRANSIT PLANNING MANAGER Work Phone: [facility] CenterLzdkajadeh35-94-9009 15:05-0500Diastolic blood zjgtygwn19 mm[Hg]Marquis Velasquez TRANSIT PLANNING MANAGER Work Phone: [facility] CenterCfmdnkgqxt65-89-4353 15:05-0500Heart rate67 /min Marquis Velasquez TRANSIT PLANNING MANAGER Work Phone: [facility] CenterTwfpvizzlw66-06-6532 15:05-0500Respiratory rate14 /minBramanda Velasquez TRANSIT PLANNING MANAGER Work Phone: [facility] CenterRiebfhbqbb98-02-8920 15:05-6531LaM8% (BldA) [Mass fraction]98 %Marquis Velasquez TRANSIT PLANNING MANAGER Work Phone: [facility] CenterYctsidonco37-55-1424 15:05-0500Systolic blood kzavfhiz520 mm[Hg]Marquis Velasquez TRANSIT PLANNING MANAGER Work Phone: [phone] [place], [place] [address]Mbqlnxieev88-03-7978 15:32-0400Body bsgecd525.6 cmAntgeorgiana Boateng DPM Work Phone: [facility] CenterTpqsnngmlt59-56-9381 15:32-0400Body mass index (BMI) [Ratio]39.22 kg/w1Iemfkgr Rusher DPM Work Phone: [facility] CenterVoqqysfdux03-94-1386 15:32-0400Body .22 kgAnthje Rusher DPM Work Phone: [facility] CenterWvppxdzhzi23-09-6004 15:57-0400Body .6 cmBrhortenciaany Velasquez TRANSIT PLANNING MANAGER Work Phone: [facility] CenterRorsprzygz71-14-7244 15:57-0400Body mass index (BMI) [Ratio]39.22 kg/n8Atkdazqp Velasquez TRANSIT PLANNING MANAGER Work Phone: [facility] CenterNbfvejfnxn99-71-5626 15:57-0400Body temperature 98.29 [degF]Marquis Velasquez TRANSIT PLANNING MANAGER Work Phone: [facility] CenterXflhukglrv88-97-9474 15:57-0400Body khlcix120.22 kgBrittany Velasquez TRANSIT PLANNING MANAGER Work Phone: [facility] CenterExlqkujrpa82-76-8883 15:57-0400Diastolic blood cbgjanzg85 mm[Hg]Marquis Velasquez TRANSIT PLANNING MANAGER Work Phone: [facility] CenterReetgwsenu24-37-3716 15:57-0400Heart rate61 /min Marquis Velasquez TRANSIT PLANNING MANAGER Work Phone: [facility] CenterComment on above:98% X108-23-0863 15:57-0400Systolic blood vbeekfky720 mm[Hg]Marquis Velasquez TRANSIT PLANNING MANAGER Work Phone: [facility] CenterGnijobpulj43-69-2768 13:15-0400Diastolic blood ynledixo99 mm[Hg]MD Shaikh Baker Work Phone: [facility]04-17-2023 13:15-0400 Heart rate54 /minMD Shaikh Baker Work Phone: [phone] [place], [place] 8500604-17-2023 13:15-0400 Respiratory rate16 /minMD Shaikh Baker Work Phone: [phone] [place], [place] 8500604-17-2023 13:15-0400 SaO2% (BldA) [Mass fraction]97 %MD Shaikh Baker Work Phone: [phone] [place], [place] 8500604-17-2023 13:15-0400 Systolic blood mm[Hg]MD Shaikh Baker Work Phone: [phone]04-17-2023 12:25-0400 Body mowwtdptjaq42.5 [degF]MD Shaikh Baker Work Phone: [phone]04-17-2023 11:55-0400 Inhaled oxygen flow rate8 L/minMD Shaikh Baker Work Phone: [phone] [place], [place] 8500604-17-2023 10:54-0400 Body lejqww657.1 cmMD Shaikh Baker Work Phone: [phone]04-17-2023 10:54-0400 Body mass index (BMI) [Ratio]38.6 kg/m2MD Shaikh Baker Work Phone: [phone] [place], [place] 8500604-17-2023 10:54-0400 Body yqohet562.4 kgMD Shaikh Samuel Work Phone: [facility]07-29-2022 10:00-0400 Diastolic blood npjzvidr96 mm[Hg]MD Sav Andrews Work Phone: [facility]07-29-2022 10:00-0400 Heart rate54 /minMD Sav Andrews Work Phone: [facility]07-29-2022 10:00-0400 Respiratory rate18 /minMD Sav Andrews Work Phone: [phone] [place], [place] 1473807-29-2022 10:00-0400 SaO2% (BldA) [Mass fraction]100 %MD Sav Andrews Work Phone: [phone] [place], [place] 1473807-29-2022 10:00-0400 Systolic blood dthokwzd362 mm[Hg]MD Sav Andrews Work Phone: [phone]07-29-2022 07:37-0400 Body .18 cm Sav Andrews Work Phone: [phone] [place], [place] 0385107-29-2022 07:37-0400 Body iphfzkuhruu79.9 [degF]MD Sav Andrews Work Phone: [phone] [place], [place] 3645607-29-2022 07:37-0400 Body qieowl15.64 kgMD Ang Harinijoey Work Phone: [phone] [place] [address] Encounters Encounter DateEncounter TypeCare ProviderFacilityStart: 02-23-2025 End: 52-96-9888twsqqzkdjrPKGKOXB S RUSHERNot AvailableStart: 02-23-2025 End: 12-05-8628Eqsyvsb encounter procedureAnthje Boateng DPM Work Phone: [facility] PodiatryComment on above:Onychodystrophy (Primary Dx); Onychomycosis; Type 2 diabetes mellitus with diabetic polyneuropathy, with long-term current use of insulin (HCC)Start: 02-23-2025 End: 38-00-0839Wfcmwu flowsheetAnthony S Rusher DPM Work Phone: [facility] PodiatryStart: 02-23-2025 End: 67-08-7466Gvcygj flowsheetAnthony S Rusher DPM Work Phone: [facility] PodiatryStart: 02-11-2025 End: 18-78-1542atcoqaadamIilvGrace DOLAN Work Phone: [facility] Work Phone: Start: 02-11-2025 End: 13-49-1111Yofjzyw encounter procedureLuci Rios TRANSIT PLANNING MANAGER-C-[facility] Work Phone: Start: 12-31-2024 End: 04-94-3177Fbgpac outpatient visit 25 minutesEwa Blanca TRANSIT PLANNING MANAGER Work Phone: noms CWM FMComment on above:Chronic [...] Edema of both lower extremitiesStart: 12-31-2024 End: 41-21-6859epqkkgszwdSNEB AICHHOLZNot AvailableStart: 12-31-2024 End: 17-90-6651Sraprx flowsheetEwasa Uptontripmarika TRANSIT PLANNING MANAGER Work Phone: n[facility] CWM FMStart: 12-31-2024 End: 67-90-6740Zkiixg flowsTiagosa Uptontripmarika TRANSIT PLANNING MANAGER Work Phone: n[facility] CWM FMStart: 12-31-2024 End: 89-02-6765Wclxwcqmf Result EncounterEwa Blanca TRANSIT PLANNING MANAGER Work Phone: noms External Department UnsolicitedStart: 12-09-2024 End: 46-10-8694KhxrtwDxhl Aichholz TRANSIT PLANNING MANAGER Work Phone: n[facility] CWM FMComment on above:Type 2 diabetes mellitus without complication, with long-term current use of insulin (HCC) (PrimaryDx) Start: 11-30-2024 End: 11-17-0836Focdgcqgz Result EncounterGeneric External Data ProviderNOMS External Department UnsolicitedStart: 11-30-2024 End: 64-79-1692Ackejyfhq Result EncounterGeneric External Data ProviderNOMS External Department UnsolicitedStart: 11-24-2024 End: 76-25-4114UgbffxNasd Aichholz TRANSIT PLANNING MANAGER Work Phone: noms CWM FMComment on above:Type 2 diabetes mellitus without complication, with long-term current use of insulin (HCC) (PrimaryDx) Start: 11-19-2024 End: 74-53-1255Mdjvtn outpatient visit 25 minutesLisa Briseidaholz TRANSIT PLANNING MANAGER Work Phone: n[facility] CWM FMComment on above:Type 2 diabetes mellitus with diabetic polyneuropathy, with long-term current use of insulin (HCC) ( Primary Dx); Primary hypertension ; Morbid (severe) obesity due to excess calories ([facility]-HCC); Type 2 diabetes mellitus without complication, with long-term current use of insulin (HCC); Resistant hypertension ; Hyperlipidemia, unspecified hyperlipidemia type ; Type 2 diabetes mellitus without complications (HCC); Severe persistent asthma without complication (HCC); Gastroesophageal reflux disease without esophagitisStart: 11-19-2024 End: 07-47-9366heikdsnozaKRCU AICHHOLZNot AvailableStart: 11-19-2024 End: 92-51-4234Pvkqbu flowsheetLisa Alexsandrahholz TRANSIT PLANNING MANAGER Work Phone: noms CW FMStart: 11-19-2024 End: 06-41-4319Oqhluc flowsheetLisa Aichholz TRANSIT PLANNING MANAGER Work Phone: noms [facility] FMStart: 10-24-2024 End: 35-32-5612Mdcdoagcw Result EncounterLisa Alexsandrahholz TRANSIT PLANNING MANAGER Work Phone: noms External Department UnsolicitedStart: 10-24-2024 End: 89-31-1483Ogxcqmltg Result EncounterLisa Alexsandrahholz TRANSIT PLANNING MANAGER Work Phone: noms External Department UnsolicitedStart: 10-08-2024 End: 92-88-4849Xnygcc outpatient visit 25 minutesLisa Alexsandrahholz TRANSIT PLANNING MANAGER Work Phone: noms CW FMComment on above:Type 2 diabetes mellitus without complication, with long-term current use of insulin (Primary Dx); Type 2 diabetes mellitus with diabetic polyneuropathy, with long-term current use of insulin (CMS/HCC); Primary hypertension (CMS/HCC); Edema of both lower extremities; intermediate manager (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 (CMS/HCC); Morbid (severe) obesity due to excess calories (CMS/HCC); Severe persistent asthma without complication ([facility]/HCC); Elevated serum creatinineStart: 10-08-2024 End: 89-56-4580gvuvvrscttSNIZ AICHHOLZNot AvailableStart: 10-08-2024 End: 68-42-8652Wapnpc flowsheetLisa Aichholz TRANSIT PLANNING MANAGER Work Phone: noms CW FMStart: 10-08-2024 End: 88-87-3155Jztkid flowsheetLisa Aichholz TRANSIT PLANNING MANAGER Work Phone: noms CW FMStart: 09-17-2024 End: 97-77-4654jovxlzsbpwKAVD AICHHOLZNot AvailableStart: 09-17-2024 End: 34-06-4327Ymauox outpatient visit 25 minutesLisa Aichholz TRANSIT PLANNING MANAGER Work Phone: noms [facility] FMComment on above:Elevated serum creatinine (Primary Dx); Primary hypertension (CMS/HCC); Type 2 diabetes mellitus without complication, with long-term current use of insulinStart: 09-17-2024 End: 01-95-3826Quzxwp flowsheetLisa Aichholz TRANSIT PLANNING MANAGER Work Phone: noms [facility] FMStart: 09-17-2024 End: 91-48-3468Lmvcja flowsheetLisa Aichholz TRANSIT PLANNING MANAGER Work Phone: noms [facility] FMStart: 09-09-2024 End: 36-68-8400Snbsngoho Result EncounterLisa Aichholz TRANSIT PLANNING MANAGER Work Phone: noms External Department UnsolicitedStart: 09-09-2024 End: 54-51-5125Nawizbdht Result EncounterLisa Aichholz TRANSIT PLANNING MANAGER Work Phone: noms External Department UnsolicitedStart: 08-31-2024 End: 66-42-2522Tfrajm OnlyLisa Aichholz TRANSIT PLANNING MANAGER Work Phone: noms CWM FMComment on above:Elevated serum creatinine (Primary Dx)Start: 08-29-2024 End: 90-52-3399Oivgnykpk Result EncounterLisa Aichholz TRANSIT PLANNING MANAGER Work Phone: noms External Department UnsolicitedStart: 08-29-2024 End: 91-36-6348Edeifovee Result EncounterLisa Aichholz TRANSIT PLANNING MANAGER Work Phone: noms External Department UnsolicitedStart: 08-24-2024 End: 47-86-3321Wcipiw outpatient visit 15 minutesAnthony S Rusher DPM Work Phone: noms PODIATRYComment on above:Onychodystrophy (Primary Dx); Onychomycosis; Type 2 diabetes mellitus with diabetic polyneuropathy, with long-term current use of insulin ([facility])Start: 08-24-2024 End: 38-66-3236latepgvsvuQUQNPCD S RUSHERNot AvailableStart: 08-24-2024 End: 88-54-2080Wgujcz flowsheetAnthony S Rusher DPM Work Phone: noms PODIATRYStart: 08-24-2024 End: 71-82-6800Nrabqk flowsheetAnthony S Rusher DPM Work Phone: noms [facility] PODIATRYStart: 08-19-2024 End: 52-56-2531Dznwel OnlyLisa Aichholz TRANSIT PLANNING MANAGER Work Phone: n[facility] CWM FMComment on above:Elevated serum creatinine (Primary Dx)Start: 08-18-2024 End: 01-89-8514ttypkdpghpAKFL AICHHOLZNot AvailableStart: 07-29-2024 End: 36-77-3354Wtvsfv outpatient visit 25 minutesLisa Aichholz TRANSIT PLANNING MANAGER Work Phone: noms CWM FMComment on above:Primary hypertension (CMS/HCC) (Primary Dx); Type 2 diabetes mellitus without complications (CMS/HCC); retirement (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 (CMS/HCC); Morbid (severe) obesity due to excess calories (CMS/HCC); Gastro-esophageal reflux disease without esophagitis; Body mass index (BMI) 38.0-38.9, adult; 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); Type 2 diabetes mellitus with diabetic polyneuropathy, with long-term current use of insulin (CMS/HCC); Severe persistent asthma without complication (CMS/HCC); Mixed hyperlipidemia (CMS/HCC)Start: 07-29-2024 End: 93-45-9617vnbbkbsmqvJFMR AICHHOLZNot AvailableStart: 07-29-2024 End: 14-99-7828Hohkjm flowsheetLisa Aichholz TRANSIT PLANNING MANAGER Work Phone: [facility]OM[facility] CWM FMStart: 07-29-2024 End: 12-21-9592Jlpegq flowsheetLisa Aichholz TRANSIT PLANNING MANAGER Work Phone: [facility] CWM FMStart: 07-18-2024 End: 47-82-1148Gpqvrynsw Result EncounterBrittany Velasquez TRANSIT PLANNING MANAGER Work Phone: noms External Department UnsolicitedStart: 07-18-2024 End: 45-34-3992Rvouvjqer Result EncounterBrittany Velasquez TRANSIT PLANNING MANAGER Work Phone: NOTA External Department UnsolicitedStart: 06-13-2024 End: 14-64-6736BikjmgCmqlfjxj Velasquez TRANSIT PLANNING MANAGER Work Phone: NOBB CWM FMComment on above:Severe persistent asthma without complication (CMS/HCC)Start: 05-06-2024 End: 85-99-1543DblhobSigvVashti HYDE CWM FMComment on above:Type 2 diabetes mellitus with diabetic polyneuropathy, with long-term current use of insulin ([facility]/HCC) (Primary Dx)Start: 04-27-2024 End: 73-18-8317Nvhqoi outpatient visit 15 minutesBramanda Velasquez TRANSIT PLANNING MANAGER Work Phone: noms CWM FMComment on above:Type 2 diabetes mellitus with diabetic polyneuropathy, with long-term current use of insulin ([facility]) (Primary Dx); Resistant hypertension ([facility]); Gastroesophageal reflux disease without esophagitisStart: 04-27-2024 End: 31-11-0297tqpmbszzpnFPRKVNJY FITZHANETRICKNot AvailableStart: 04-27-2024 End: 70-12-3166Istbmf flowsheetBrittany Velasquez TRANSIT PLANNING MANAGER Work Phone: noms CWM FMStart: 04-27-2024 End: 85-25-5788Aqwied flowsheetMarianelaany Velasquez TRANSIT PLANNING MANAGER Work Phone: noms CWM FMStart: 04-17-2024 End: 14-08-3238Zvkldflkd Result EncounterGeneric External Data ProviderNOMS External Department UnsolicitedStart: 04-17-2024 End: 99-91-8422Saxwxqpzd Result EncounterGeneric External Data ProviderNOMS External Department UnsolicitedStart: 03-18-2024 End: 78-38-6961QmrbszWuuiqsgr Velasquez TRANSIT PLANNING MANAGER Work Phone: noms CWM FMComment on above:Type 2 diabetes mellitus without complication, with long-term current use of insulin ([facility])Start: 02-24-2024 End: 33-49-7823Qpjbou outpatient new 30 minutesAnthony S Kilo DPM Work Phone: noms PODIATRYComment on above:Onychodystrophy (Primary Dx); Type 2 diabetes mellitus with diabetic polyneuropathy, with long-term current use of insulin ([facility]); OnychomycosisStart: 02-24-2024 End: 32-95-7247Wtmery Gaby S Kilo DPM Work Phone: noms FH PODIATRYStart: 02-24-2024 End: 03-50-5645Wtvvmw flowsheetAnthony S Shoaibher DPM Work Phone: noms PODIATRYStart: 01-25-2024 End: 28-54-3095Cgjntvmzf Result EncounterSchasidy Baker MD Work Phone: noMS External Department UnsolicitedStart: 01-25-2024 End: 87-26-2610Ilyffauyz Result EncounterSchasidy Baker MD Work Phone: noms External Department UnsolicitedStart: 01-22-2024 End: 30-60-0558Xsemlc outpatient visit 25 minutesBramanda Velasquez TRANSIT PLANNING MANAGER Work Phone: NOM[facility] FMComment on above:Type 2 diabetes mellitus with diabetic polyneuropathy, with long-term current use of insulin (CMS/HCC) (Primary Dx); Severe persistent asthma without complication (CMS/HCC); Resistant hypertension (CMS/[facility]); Gastroesophageal reflux disease without esophagitis; Mixed hyperlipidemia (CMS/[facility]); Type 2 diabetes mellitus without complication, with long-term current use of insulin (CMS/[facility]); Primary hypertension (CMS/[facility]); Hyperlipidemia, unspecified hyperlipidemia type (CMS/HCC)Start: 01-22-2024 End: 10-13-1338Ahhhss flowsheetMarquis Vailtrick TRANSIT PLANNING MANAGER Work Phone: [facility] FMStart: 01-22-2024 End: 48-05-5000Wqsoaf flowsheetMarianelawesly Velasquez TRANSIT PLANNING MANAGER Work Phone: noMS [facility] FMStart: 01-17-2024 End: 57-29-9087Suwssifpg Result EncounterGeneric External Data ProviderNOMS External Department UnsolicitedStart: 01-17-2024 End: 38-37-6824Urcitivus Result EncounterGeneric External Data ProviderNOMS External Department UnsolicitedStart: 10-23-2023 End: 54-22-5608Ekfjpqodi Result EncounterGeneric External Data ProviderNOMS External Department UnsolicitedStart: 10-23-2023 End: 97-38-1594Rpenodnuk Result EncounterGeneric External Data ProviderNOMS External Department UnsolicitedStart: 09-11-2023 End: 52-43-7167Vghqfjlkb Result EncounterGeneric External Data ProviderNOMS External Department UnsolicitedStart: 09-11-2023 End: 78-36-4180Xulmtcxvd Result EncounterGeneric External Data ProviderNOMS External Department UnsolicitedStart: 08-19-2023 End: 85-10-7768Ikjvkhejv Result EncounterGeneric External Data ProviderNOMS External Department UnsolicitedStart: 08-19-2023 End: 87-32-6033Syfvitxaq Result EncounterGeneric External Data ProviderNOMS External Department UnsolicitedStart: 07-17-2023 End: 66-19-3053Oixwdtsxo Result EncounterGeneric External Data ProviderNOMS External Department UnsolicitedStart: 07-17-2023 End: 72-95-8913Vdhuxyhmj Result EncounterGeneric External Data ProviderNOMS External Department UnsolicitedStart: 06-26-2023 End: 71-48-5612Zlpaufthf Result EncounterGeneric External Data ProviderNOMS External Department UnsolicitedStart: 06-26-2023 End: 90-88-0582Vibkpbzsu Result EncounterGeneric External Data ProviderNOMS External Department UnsolicitedStart: 06-25-2023 End: 03-06-0700Luaijlebu Result EncounterGeneric External Data ProviderNOMS External Department UnsolicitedStart: 06-25-2023 End: 37-41-6897Qeyjtjfxa Result EncounterGeneric External Data ProviderNOMS External Department UnsolicitedStart: 06-06-2023 End: 15-48-6827Ukfpkbweg Result EncounterGeneric External Data ProviderNOMS External Department UnsolicitedStart: 06-06-2023 End: 40-72-8547Vklaygrdp Result EncounterGeneric External Data ProviderNOMS External Department UnsolicitedStart: 05-25-2023 End: 49-35-0774Bbpmwkmji Result EncounterGeneric External Data ProviderNOMS External Department UnsolicitedStart: 05-25-2023 End: 67-61-6428Xcvryejpr Result EncounterGeneric External Data ProviderNOMS External Department UnsolicitedStart: 09-10-2022 End: 26-48-0830tcjibojdzjCpvw LaffayFacility:[facility] Start: 09-10-2022 End: 31-22-4463Vdytdyicu to same day surgery centerMD Shaikh Baker Work Phone: [facility] Main CampusStart: 09-10-2022 End: 81-43-6376jxblmlhzbkUU Shaikh Fawwad Work Phone: [facility] Work Phone: Start: 08-30-2022 End: 12-31-8963odkeqepzfaIcck LaffayFacility:[facility] Start: 08-30-2022 End: 02-11-8374axweergplyKJ Shaikh Fawwad Work Phone: [facility] Work Phone: Start: 08-30-2022 End: 53-60-0319Wemmpoz encounter procedureMD Shaikh Samuel Work Phone: [facility]-Pre-Surgical Testing Work Phone: Start: 07-07-2022 End: 72-21-1496ashempnszwGRMNDO H FAWWADFacility:N6Xfmyu: 03-13-2022 End: 41-89-7153ikdnkfnnmvUKSLOL H FAWWADFacility:I4Klnvc: 12-22-2021 End: 01-06-2320ogukfryhhoBerfcpi J DittyFacility:[facility]art: 12-22-2021 End: 73-20-3307Cxkeprdwq to same day surgery centerMD Sav Andrews Work Phone: [facility]-Digestive HealthStart: 12-20-2021 End: 91-26-2994neypextlmoQpclzgd J DittyFacility:[facility]art: 12-20-2021 End: 61-20-4801Vdarpti encounter procedureMD Sav Andrews Work Phone: [facility]-Pre-Surgical Testing Start: 11-14-2021 End: 56-87-8839bjauvdxkrnWVGWR D HIGHLANDERFacility:J5Vkkqn: 10-25-2021 End: 75-32-0984vfgeiqafmjQIDFD D HIGHLANDERFacility:S3Sezba: 09-11-2021 End: 94-87-9266nidfspvzmhXPIUJQ H FAWWADFacility:H5Qdxxs: 09-05-2021 End: 09-43-8548gxdpxwpcrrAOGMEMSE CULLENFacility:Q2Llpyr: 08-03-2021 End: 89-27-2656obuapezyrwSX ASA HAYFacility:H1 Procedures DateProcedureProcedure DetailPerforming ClinicianStart: 69-08-7429WN ANKLE RT MIN 3VLisa Blanca TRANSIT PLANNING MANAGER Work Phone: Start: 56-07-4289HK ANKLE RT MIN 3VGeneric External Data ProviderStart: 10-21-3631Vmmeenvpai glycosylated o7tZawj Briseidaholbraulio TRANSIT PLANNING MANAGER Work Phone: Start: 33-31-4648UG RENAL BILisa Blanca TRANSIT PLANNING MANAGER Work Phone: Start: 40-81-5576IGQ BASIC METABOLIC PANELLisa Alexsandrahholz TRANSIT PLANNING MANAGER Work Phone: Start: 74-18-2341VPF BASIC METABOLIC PANELLisa Aichholz TRANSIT PLANNING MANAGER Work Phone: Start: 08-51-2752SAJ BASIC METABOLIC PANELLisa Aicholz TRANSIT PLANNING MANAGER Work Phone: Start: 00-95-4904LcqwqvbypbgWwmz Aicholz TRANSIT PLANNING MANAGER Work Phone: Start: 30-13-4408XJY CBC WITH AUTO DIFFBrittany Velasquez TRANSIT PLANNING MANAGER Work Phone: Start: 83-72-4980WC ANKLE RT MIN 3VGeneric External Data ProviderStart: 50-91-8542QFQ LIPID PROFILE (FASTING)Shaikh Samuel GUPTA Work Phone: Start: 29-76-2485DVG CMP (CMP) (FOR REMOTE [facility] USE) Shaikh Samuel GUPTA Work Phone: Start: 14-53-7783HZ ANKLE RT MIN 3VGeneric External Data ProviderStart: 24-96-8309ER ANKLE RT MIN 3VGeneric External Data Provider Start: 16-30-0448NS ANKLE RT MIN 3VGeneric External Data ProviderStart: 60-88-7849DG ANKLE RT WO CONGeneric External Data ProviderStart: 46-17-4506YA ANKLE RT MIN 3VGeneric External Data ProviderStart: 99-27-8891JO FOOT RT MIN 3V Generic External Data ProviderStart: 35-95-6646RM ANKLE RT MIN 3VGeneric External Data ProviderStart: 51-76-3134UI ANKLE RT WO CONGeneric External Data ProviderStart: 01-79-2528XI ANKLE RT MIN 3VGeneric External Data ProviderStart: 75-57-9810CJ FOOT RT MIN 3VGeneric External Data ProviderStart: 97-92-4904QK ANKLE LT MIN 3VGeneric External Data ProviderStart: 94-23-3394CB ANKLE RT MIN 3V Generic External Data ProviderStart: 85-02-8189IedzzzaldwrtojdyRB Shaikh Samuel Work Phone: Start: 08-72-1075ZihlhyojaoxVzyqqrmu Velasquez TRANSIT PLANNING MANAGER Work Phone: Start: 04-09-8822Oyzqlxgbj colonoscopyMD Sav Andrews Work Phone: SARS Antigen (LFIA)MD Sva Andrews Work Phone: Plan of Treatment DateCare ActivityDetailAuthorStart: 96-42-7098Dbwpmfybf for malignant neoplasm of colonNOMS HealthcareStart: 51-91-0615Gdsdthqjf for malignant neoplasm of colonNOMS HealthcareStart: 47-94-5833Wefgmtsw screeningDiabetes: Retinopathy ScreeningNOMS HealthcareStart: 08-23-2025 End: 99-34-2175Zbbxaih encounter veakwtdxp25/30/2026 3:15 PM EDT Procedure Visit [facility] [place] [facility] [address] [place] [address] Abisai Boateng, DPM [address] [place], [place] [id number] [facility] [place] PodiatryStart: 88-25-4072Rkqtv screening for proteinDiabetes: Urine Protein ScreeningCASTLEVIEW HOSPITAL HealthcareStart: 02-23-2025 End: 09-30-1425Erovyda encounter procedureNOTEN[address] [facility] PODIATRYStart: 02-19-2025 Hemoglobin A1c measurementDiabetes: Hemoglobin E9MAEOY HealthcareStart: 02-11-2025 End: 71-85-7501Zogsmcs encounter ijiiigklb19/18/2025 3:00 PM EDT Office Visit [facility] [address] [place] [address] Luci Rios, MARIA FERNANDA [address] [place] [address] [facility] FMStart: 87-30-1287Aycveowtv vaccinationInfluenza Vaccine (#1)[facility] CenterStart: 12-31-2024 End: 53-02-0732Uwjowjy encounter procedureNOJIM TALIAFERRO [facility] FMComment on above:Type 2 diabetes mellitus with diabetic polyneuropathy, with long-term current use of insulin (HCC) (Primary Dx); Primary hypertension ; Type 2 diabetes mellitus without complication, with long-term current use of insulin (HCC); Morbid (severe) obesity due to excess calories ([facility]-HCC); Severe persistent asthma without complication (HCC); Edema of both lower extremitiesStart: 12-31-2024 End: 72-21-5566Wubub metabolic 1998 panel - Serum or PlasmaBasic metabolic panel Lab Routine Primary hypertension Type 2 diabetes mellitus without complication, with long-term current use of insulin (HCC) Edema of both lower extremities Expected: 12/31/2024 (Approximate), Expires: 12/31/2025[facility] Work Phone: Comment on above:Expected: 12/31/2024 (Approximate), Expires: 12/31/2025Start: 12-31-2024 End: 70-18-4620SR Ankle - right 3 ViewsXR ankle 3+ views right Imaging Routine Chronic pain of right ankle Expected: 12/31/2024, Expires: 12/31/2025[facility] HealthcareComment on above:Expected: 12/31/2024, Expires: 12/31/2025Start: 11-19-2024 End: 92-35-3609Wjvaejh encounter procedureNOJIM TALIAFERR[facility] FMComment on above:Primary hypertension (Primary Dx); Morbid (severe) obesity due to excess calories (CMS-HCC); Type 2 diabetes mellitus without complication, with long-term current use of insulin (HCC)Start: 96-19-5055Ejbnbjhgtw A1c measurementDiabetes: Hemoglobin A1C [facility] HealthcareStart: 10-08-2024 End: 35-00-5063Mpspvxi encounter procedureNOJIM T[facility]IAFERR[facility] FMComment on above:Type 2 diabetes mellitus with diabetic polyneuropathy, with long-term current use of insulin (CMS/HCC) (Primary Dx); Primary hypertension (CMS/HCC); Edema of both lower extremities; retirement (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 (CMS/HCC); Morbid (severe) obesity due to excess calories (CMS/HCC); Type 2 diabetes mellitus without complication, with long-term current use of insulin; Severe persistent asthma without complication (CMS/HCC)Start: 09-17-2024 End: 53-82-6019Btpok metabolic 1998 panel - Serum or PlasmaBasic metabolic panel Lab Routine Primary hypertension (CMS/HCC) Type 2 diabetes mellitus without co mplication, with long-term current use of insulin Expected: 09/17/2024 (Approximate), Expires: 09/17/2025[facility] Work Phone: Comment on above:Expected: 09/17/2024 (Approximate), Expires: 09/17/2025Start: 09-17-2024 End: 78-98-8795ZQ KidneyUS renal complete Imaging Routine Elevated serum creatinine Primary hypertension (CMS/HCC) Type 2 diabetes mellitus without complication, with long-term current use of insulin Expected: 09/17/2024, Ex jose alejandro: 09/17/2025[facility] HealthcareComment on above:Expected: 09/17/2024, Expires: 09/17/2025Start: 09-14-2024 End: 30-88-6784Dxqnq metabolic 1998 panel - Serum or PlasmaBasic metabolic panel Lab Routine Elevated serum creatinine Expected: 09/14/2024 (Approximate), Expi res: 08/31/2025[facility] Work Phone: Comment on above:Expected: 09/14/2024 (Approximate), Expires: 08/31/2025Start: 04-16-7462Vdbybikk screeningDiabetes: Retinopathy ScreeningNOOH HealthcareStart: 08-26-2024 End: 21-51-0937Sjiwj metabolic 1998 panel - Serum or PlasmaBasic metabolic panel Lab Routine Elevated serum creatinine Expected: 08/26/2024 (Approximate), Expi res: 08/19/2025[facility] Work Phone: Comment on above:Expected: 08/26/2024 (Approximate), Expires: 08/19/2025Start: 08-24-2024 End: 64-69-8861Ngzxwbl encounter procedureNOTENET ST. [facility] PODIATRYComment on above: ArrivedStart: 08-18-2024 End: 03-07-5070Qutjlvl encounter /25/2025 3:00 PM EDT Office Visit [facility] [address] [place] [address] Luci Rios NP [address] [place] [address] [facility]OMRios PETTY FMStart: 43-21-9026Rukpp screening for protein Diabetes: Urine Protein ScreeningCASTLEVIEW HOSPITAL HealthcareStart: 07-29-2024 End: 50-72-5090Epsjbyj encounter procedureNOMS [facility] FMComment on above:Type 2 diabetes mellitus with diabetic polyneuropathy, with long-term current use of insulin ([facility]/HCC) (Primary Dx); Type 2 diabetes mellitus without complications ([facility]); intermediate manager (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 ([facility]); Morbid (severe) obesity due to excess calories ([facility]); Gastro-esophageal reflux disease without esophagitis; Body mass index (BMI) 38.0-38.9, adult; 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); Severe persistent asthma without complication (CMS/HCC); Primary hypertension (CMS/HCC); Mixed hyperlipidemia (CMS/HCC)Start: 07-28-2024 End: 74-42-2331Vzylvgv encounter jaejhffrt14/04/2025 4:00 PM EST Office Visit [facility] [address] [place] [address] Marquis Velasquez, MARIA FERNANDA [address] [place] [address] [facility] FMStart: 07-26-2024 End: 14-93-2672VAE W Auto Differential panel - BloodCBC and differential Lab Routine Type 2 diabetes mellitus with diabetic polyneuropathy, with long-term current use of insulin (CMS/HCC) Resistant hypertension (CMS/HCC) Expected: 07/26/2024 (Approximate), Expires: 04/27/2025[facility] HealthcareComment on above: Expected: 07/26/2024 (Approximate), Expires: 04/27/2025Start: 07-26-2024 End: 71-64-3387Pyfxikywcvllw metabolic 2000 panel - Serum or PlasmaComprehensive metabolic panel Lab Routine Type 2 diabetes mellitus with diabetic polyneuropathy, with long-term current use of insulin (CMS/HCC) Resistant hypertension (CMS/HCC) Expected: 07/26/2024 (Approximate), Expires: 04/27/2025 NOM HealthcareComment on above:Expected: 07/26/2024 (Approximate), Expires: 04/27/2025Start: 07-26-2024 End: 38-11-3045Iaqzptfgwp A1c/Hemoglobin.total in BloodHemoglobin A1c Lab Routine Type 2 diabetes mellitus with diabetic polyneuropathy, with long-term current use of insulin (CMS/HCC) Resistant hypertension (CMS/HCC) Expected: 07/26/2024 (Approximate), Expires: 04/27/2025[facility] HealthcareComment on above: Expected: 07/26/2024 (Approximate), Expires: 04/27/2025Start: 07-26-2024 End: 06-89-2587Zhzytzhccsgk/Creatinine panel in random UrineMicroalbumin / creatinine urine ratio Lab Routine Type 2 diabetes mellitus with diabetic polyneuropathy, with long-term current use of insulin (CMS/[facility]) Resistant hypertension (CMS/HCC) Expected: 07/26/2024 (Approximate), Expires: 04/27/2025 [facility] Work Phone: Comment on above:Expected: 07/26/2024 (Approximate), Expires: 04/27/2025Start: 04-27-2024 End: 97-15-7662Nikxzdf encounter procedureNOMS CWM FMComment on above:Arrived Start: 04-22-2024 End: 38-24-2482Vjztbha encounter xdczjrpub71/27/2024 3:30 PM EST Office Visit [facility] [address] [place] [address] Marquis Velasquez, TRANSIT PLANNING MANAGER [address] [place] [address] [facility] FMStart: 02-24-2024 End: 17-39-0709Pnqlmrn encounter ijqjhmleg46/30/2024 3:30 PM EDT Office Visit [facility] [address] [place] [address] Abisai Boateng, DPM [address] [place], [place] [address] Type 2 diabetes mellitus with diabetic polyneuropathy, with long-term current use of insulin ([facility])NOMS PODIATRYComment on above:Type 2 diabetes mellitus with diabetic polyneuropathy, with long-term current use of insulin (CMS/HCC)Start: 82-85-1013Szzyxkwff vaccinationInfluenza Vaccine (#1)NOM HealthcareStart: 01-22-2024 End: 15-48-5968Litwzgb encounter ltncobcty83/28/2024 4:00 PM EDT Office Visit [facility] [address] [place] [address] Marquis Velasquez, MARIA FERNANDA [address] [place] [address] Type 2 diabetes mellitus with diabetic polyneuropathy, with long-term current use of insulin (CMS/HCC) (Primary Dx); Severe persistent asthma without complication (CMS/HCC); Resistant hypertension (CMS/HCC); Gastroesophageal reflux disease without esophagitis; Mixed hyperlipidemia (CMS/HCC)[facility] FMComment on above:Type 2 diabetes mellitus with diabetic polyneuropathy, with long-term current use of insulin (CMS/HCC) (Primary Dx); Severe persistent asthma without complication (CMS/HCC); Resistant hypertension (CMS/HCC); Gastroesophageal reflux disease without esophagitis; Mixed hyperlipidemia ([facility]/HCC)Start: 04-71-3964Eduyfmqrif A1c measurement Diabetes: Hemoglobin G3RKLEHMissouri Rehabilitation CenterStart: 09-10-2022 End: 90-78-9792VlyilmnpfMccullough-Hyde [facility] Hospital CenterStart: 33-41-8902SknvxpsscMccullough-Hy[facility]tr Work Phone: Start: 05-92-0348Mtthgogao for malignant neoplasm of colonCASTLEVIEW HOSPITAL HealthcarePatient EducationHemorrhoidsMccullough-Hyde Memorial [facility] Work Phone: Immunizations Immunization DateImmunizationNotesCare EskjmjxxTjjkggfs06-78-4004efkrfigbz, seasonal, injectable, preservative freeLisa Aichholz TRANSIT PLANNING MANAGER Work Phone: [facility] CenterBbmkypnzgr85-48-8083eaepvsq, mumps and rubella virus vaccineLisa Aichholz TRANSIT PLANNING MANAGER Work Phone: [facility]OCross[facility] Medical CenterSofyqkwfex03-20-5564Cpcnzttpikob conjugate vaccine, 21 valent (PCV21), polysaccharide GAE630 conjugate, preservative free Luci Aichholz TRANSIT PLANNING MANAGER Work Phone: NOCrossroads Regional Medical CenterEsngidgycw38-05-0463yjgasntto virus vaccine, unspecified formulationLisa Aichholz TRANSIT PLANNING MANAGER Work Phone: [phone] [place], [place] [address]Wrodxjvfyp41-31-8599mcscsax toxoid, reduced diphtheria toxoid, and acellular pertussis vaccine, adsorbedBrittany Velasquez TRANSIT PLANNING MANAGER Work Phone: [facility] CenterDcarjttdjv69-10-4157txwsja vaccine recombinant Marquis Velasquez TRANSIT PLANNING MANAGER Work Phone: [facility] CenterGakiwbxbbh52-64-4867hrnpwwvac, seasonal, injectableLisa Aichholz TRANSIT PLANNING MANAGER Work Phone: [facility] CenterYezomyzmnn89-66-2591Wtoxzbjxe, injectable, Madin Carrie Canine Kidney, preservative free, quadrivalentBrittany Velasquez TRANSIT PLANNING MANAGER Work Phone: [facility] CenterRyyfcpkvdz57-47-4241ansbciina virus vaccine, unspecified formulationBrittany Velasquez TRANSIT PLANNING MANAGER Work Phone: [phone] [place], [place] [address]Znjavgfrks99-54-2252VNXWM-13 mRNA Comcrystal (Pfizer)MD Sav Andrews Work Phone: [facility]04-26-2021COVID-19 mRNA Comirmichelle (Pfizer)MD Sav Andrews Work Phone: [facility]09-23-2020Influenza, injectable, Madin [place] Canine Kidney, preservative free, quadrivalentBrittany Velasquez TRANSIT PLANNING MANAGER Work Phone: [facility] CenterCrxyrxyupc54-32-2687vanqewveu, seasonal, injectableBrittany Velasquez TRANSIT PLANNING MANAGER Work Phone: [facility] CenterKseuixmhpl65-04-3478ipaytuivl, injectable, quadrivalent, preservative freeBrittany Velasquez TRANSIT PLANNING MANAGER Work Phone: [facility] Payers DatePayer CategoryPayerPolicy [id number] Member Subscriber Plan / Payer (Effective 2022-Present) Name: Lavern Dietz Relation to Subscriber: Self Name: Lavern Dietz Payer ID: Not on file Type: Not on file Address: [address] [place] [id number] BCBS BCBS [id number] 2022-Present [phone] [address] [place] [id number]-psd 1wjn4bjf-6c4p-5s68-jk6p-k220b[id number] 2.0.1.513708.3.57[id number] 2..1.081800.3.57[id number] 2.0.1.529690.3.57[id number] 2.0.1.631997.3.57[id number] 2.0.1.482436.3.57[id number] 2.0.1.144697.3.57[id number] 2.0.1.025723.3.57[id number] 2.840.1.285953.3.57[id number] 2.0.1.338121.3.57[id number] 2.0.1.754897.3.57[id number] 2.0.1.302282.3.57[id number] 2..840.1.365581.3.57[id number] 2.0.1.215687.3.57[id number] 2.0.1.209291.3.57[id number] [id number] 2.0.1.7[id number] [id number] 2.0.1.904241.3.579.2.531 [id number] 2..1.3[id number] 2..1.770999.3.579.2.531 Social History DateTypeDetailFacilityStart: 12-22-2021 End: 14-73-6408Eavchgi smoking status NHISEx-smoker (finding)[facility]: 85-28-4813Jqp [facility] HospitalHistory of tobacco useCurrent smokerNOMS HealthcareHistory of tobacco useCigarette SmokerNOMS HealthcareHistory of tobacco usePassive smoker NOMS HealthcareStart: 08-94-2241Lemflhf use and exposureSmokeless tobacco non-userNOMS HealthcareStart: 09-16-2023 End: 40-53-6595Frcnfnkkv beverage intakeLifetime non-drinker (finding)[facility]OMS HealthcareStart: 10-24-2023 End: 68-04-8442Alpsukx of Social functionNOMS HealthcareStart: 10-24-2023 End: 40-20-4802X4503 Health LiteracyNOMS HealthcareStart: 13-69-0905Itn often do you need to have someone help you when you read instructions, pamphlets, or other written material from your doctor or pharmacy [SILS]SometimesNOMS HealthcareDo you belong to any clubs or organizations such as buddhism groups, unions, fraternal or athletic groups, or [...] the mortgage or rent on time?NoNOMS HealthcareStart: 54-77-6644Wfm assigned at birthNot on fileNOMS HealthcareHow often do you need to have someone help you when you read instructions, pamphlets, or other written material from your doctor or pharmacy [SILS]SometimesNOMS HealthcareSexMale (finding)[facility] Tobacco smoking status NHISTobacco smoking consumption unknownNOOH Healthcare Medical Equipment Procedure CodeEquipment CodeEquipment Original TextEquipment IdentifierDates [id number]: 10-24-2023 End: [id number]: 04-27-2024 End: [id number]: 11-19-2024 End: 11-19-2025 Goals DatePatient GoalDesired Activity/State Functional Status BijiNowjhuadpbGcdlfnEnlatqau84-11-3370Cqmqfoc Health Questionnaire 2 item (PHQ- 2) [Reported][facility] CenterIrvmdboswt02-51-0112Dhoou score [AUDIT-C]0 01/21/2024 5:27 PM EDT Danielle Coto Ftikdqjtdw68-18-0113Qdz often do you have a drink containing alcohol?Never 01/21/2024 5:27 PM EDT Leahhart, Generic CynthiaNOCrossroads Regional Medical CenterApukokwjkp91-41-5365Xtcjiliaip statusPatient does not drink 01/21/2024 5:27 PM EDT [facility], Generic Patient does not drinkMissouri Rehabilitation CenterAuitirrzmm99-12-9603Lax often do you have 6 or more drinks on 1 occasion?Never 01/21/2024 5:27 PM EDT [facility], Generic CynthiaMissouri Rehabilitation CenterYzlacjufjo31-86-7702Ucjpaky Health Questionnaire 2 item (PHQ- 2) [Reported][facility] CenterXsjvrndkgv96-50-3078Igipzjs Health Questionnaire 2 item (PHQ- 2) [Reported][facility] CenterNkyycwejaa23-16-6057Gejmpvg Health Questionnaire 2 item (PHQ- 2) [Reported][facility] Clinical Notes 09-05-2021 to 02-23-2025 Note Date & DzlfIgraRgqhdzhw22-40-1481 History of Present illness Narrative* Abisai Boateng, [facility] - 02/23/2025 3:15 PM EDT Images [...] kidney injury) Arthritis of ankle, right Asthma ([facility]) Avascular necrosis of talus, right ([facility]) Dietrich cyst, right Enlarged and hypertrophic nails Eosinophilia Equinus contracture of right ankle Gastroesophageal reflux disease Hemorrhoids Hyperlipemia, mixed Hypertension Onychomycosis of toenail Osteoarthritis of both knees, unspecified osteoarthritis type Osteochondral defect of talus Pain, foot, right, chronic Peroneal tendinitis, right Right ankle pain Right leg swelling Severe persistent asthma ([facility]) Skin tags, multiple acquired Sprain of right ankle, sequela T2DM (type 2 diabetes mellitus) ([facility]) Medications Current Outpatient Medications: albuterol HFA [...] Disp: 180 tablet, Rfl: 1 Continuous Glucose Cna Gna (FreeStyle Agueda 2 Niotaze) device, 1 each in the morning and 1 each at noon and 1 each in the evening and 1 each before bedtime., Disp: 1 each, Rfl: 0 dapagliflozin (Farxiga) 5 MG, Take 1 tablet (5 mg) by mouth Daily, Disp: 90 tablet, Rfl: 1 Ggdfomeaodc-Ofttrmbod-Oyiquw (Trelegy Ellipta) 200-62.5-25 MCG/ACT aerosol powder , [...] utilizing a nail nipper and electric bur outer diameter grinder tool without incident. I have discussed the importance [...] understanding. Abisai Boateng DPM documented in this encounterMissouri Rehabilitation CenterZizgncazwd72-74-5661 History of Present illness Narrative* Luci Rios [...] 2 times daily with meals Continuous Glucose Cna Gna (fypioyle Agueda 2 Niotaze) device 1 each, Does not apply, 4 times daily Continuous Glucose Sensor (Dexcom G7 Sensor) misc 1 each, Does not apply, Daily dapagliflozin (FARXIGA) 5 mg, Oral, Daily diclofenac (CATAFLAM) 50 mg, Oral, 2 times daily, Take with food Ajvuuwnsdlo-Xlyjwreqs-Khvpna (Trelegy Ellipta) 200-62.5-25 MCG/ACT aerosol powder 1 [...] kidney injury) Arthritis of ankle, right Asthma ([facility]) Avascular necrosis of talus, right ([facility]) Dietrich cyst, right Enlarged and hypertrophic nails Eosinophilia Equinus contracture of right ankle Gastroesophageal reflux disease Hemorrhoids Hyperlipemia, mixed Hypertension Onychomycosis of toenail Osteoarthritis of both knees, unspecified osteoarthritis type Osteochondral defect of talus Pain, foot, right, chronic Peroneal tendinitis, right Right ankle pain Right leg swelling Severe persistent asthma ([facility]) Skin tags, multiple acquired Sprain of right ankle, sequela T2DM (type 2 diabetes mellitus) ([facility]) Past Surgical History: Procedure Laterality Date [...] Morbid (severe) obesity due to excess calories ([facility]) Discussed with patient their BMI (actual, [...] of right ankle Attempted to call Dr Alcarza's office they were closed Will send for [...] Morbid (severe) obesity due to excess calories ([facility]-H[facility]) Discussed with patient their BMI (actual, [...] inspections, good glycemic control documented in this encounterMissouri Rehabilitation CenterSmnrisxssw60-88-3858 Instructions* Patient Instructions* Luci Rios NP - 12/31/2024 3:40 PM EDT Try diclofenac twice a day with food for swelling and pain Get labs check in about 10 days or so documented in this encounterMissouri Rehabilitation CenterHelfmoooxh05-23-3195 Telephone encounter Note* Telephone Encounter - Luci Rios NP - 12/09/2024 6:13 AM EDT Contact pt, let him know his insurance is denying Freestyle agueda 3 device They want him to use a different CGM system, wants him to use dexcom, I have a stunner animal and 2 sensor samples, [place] [facility] CenterUwjircgqev78-26-3404 Miscellaneous Notes* Telephone Encounter - Luci Rios NP - 12/09/2024 6:13 AM EDT Contact pt, let him know his insurance is denying Freestyle agueda 3 device They want him to use a different CGM system, wants him to use dexcom, I have a stunner animal and 2 sensor samples, [place] documented in this encounterMissouri Rehabilitation CenterTxmlrfnhgv46-63-3407 History of Present illness Narrative* Luci Rios [...] no complianceproblems. There is no history of CAD/[place], heart failure or retinopathy. Diabetes He presents [...] being taken. He does not see a software licensing analyst.Eye exam is not current. SUBJECTIVE: MEDICATIONS: Current Outpatient Medications Medication Instructions albuterol HFA 90 mcg/act inhaler 2 puffs, Inhalation, Every 4 hours PRN amLODIPine (NORVASC) 10 mg, Oral, Daily aspirin 81 mg, Oral, Daily RT atorvastatin (LIPITOR) 40 mg, Oral, Daily carvedilol (COREG) 25 mg, Oral, 2 times daily with meals Continuous Glucose Cna Gna (FreeStyle Agueda 2 Niotaze) device 1 each, Does not apply, 4 times daily Continuous Glucose Sensor (FreeStyle Agueda 3 Plus Sensor) misc 1 each, Other, Continuous, USE 1 SENSOR EVERY 15 DAYS TO MONITOR BLOOD SUGAR. dapagliflozin (FARXIGA) 5 mg, Oral, Daily Ozvagsindxp-Kjtyduuot-Xxxoth (Trelegy Ellipta) 200-62.5-25 MCG/ACT aerosol powder 1 [...] kidney injury) Arthritis of ankle, right Asthma ([facility]) Avascular necrosis of talus, right ([facility]) Dietrich cyst, right Enlarged and hypertrophic nails Eosinophilia Equinus contracture of right ankle Gastroesophageal reflux disease Hemorrhoids Hyperlipemia, mixed Hypertension Onychomycosis of toenail Osteoarthritis of both knees, unspecified osteoarthritis type Osteochondral defect of talus Pain, foot, right, chronic Peroneal tendinitis, right Right ankle pain Right leg swelling Severe persistent asthma ([facility]) Skin tags, multiple acquired Sprain of right ankle, sequela T2DM (type 2 diabetes mellitus) ([facility]) Past Surgical History: Procedure Laterality Date [...] persistent asthma without complication (HCC) Relevant Medications Ypvclkcorlx-Cqubnjcrq-Bvnsrd (Trelegy Ellipta) 200-62.5-25 MCG/ACT aerosol powder Hyperlipidemia [...] Morbid (severe) obesity due to excess calories ([facility]) Discussed with patient their BMI (actual, [...] Morbid (severe) obesity due to excess calories ([facility]) Discussed with patient their BMI (actual, [...] amlodipine, carvedilol, losartan/hydrochlorothiazide, aldactone documented in this encounterMissouri Rehabilitation CenterCspcwkpjxy64-44-3876 History of Present illness Narrative* Luci Rios NP - 10/08/2024 4:18 PM EDTAssociated Problem(s): Elevated serum creatinine Recheck labs, still has not heard anything about renal US at [facility] We will refax * REKHA GRIDER [...] 2 times daily with meals Continuous Glucose Cna Gna (FreeStyle Agueda 2 Niotaze) device 1 each, Does not apply, 4 times daily Continuous Glucose Sensor (FreeStyle Agueda 3 Plus Sensor) [facility] USE 1 SENSOR EVERY 15 DAYS TO MONITOR BLOOD SUGAR. dapagliflozin (FARXIGA) 5 mg, Oral, Daily Eqxetokmidn-Iogzhwrgq-Elhkgy (Trelegy Ellipta) 200-62.5-25 MCG/ACT aerosol powder 1 puff, Inhalation, Daily, INHALE 1 PUFF ONCE DAILY, rinse mouth after use glipiZIDE (GLUCOTROL) 5 mg, Oral, 2 times daily before meals insulin glargine-yfgn (SEMGLEE (YFGN)) 20 Units, Subcutaneous, Nightly insulin pen needle (B-D ULTRAFINE III SHORT PEN) 31G X 8 mm [facility] Daily losartan-hydroCHLOROthiazide (Hyzaar) 100-25 MG tablet 1 [...] T2DM (type 2 diabetes mellitus) (CMS/[facility]) Past Surgical History: Procedure Laterality Date [...] persistent asthma without complication (CMS/HCC) Relevant Medications Jtbectwwfxu-Rjwqrtdew-Fimcmj (Trelegy Ellipta) 200-62.5-25 MCG/ACT aerosol powder Type [...] great!!! 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 (CMS/HCC) Morbid (severe) obesity due to excess calories ([facility]/HCC) Discussed with patient their BMI (actual, verses [...] not heard anything about renal US at [facility] We will refax * Luci Rios [...] polyneuropathy, with long-term current use of insulin (CMS/[facility]) No current treatment Recommend proper fitting toes, freq foot inspections, good glycemic control documented in this encounterMissouri Rehabilitation CenterLitrjorgnu15-75-2800 Instructions* Patient Instructions* Luci Rios NP - 10/08/2024 3:40 PM EDT No dose changes in meds Keep up the great work Order for labs no fasting Number to [facility]: [phone]- ext [phone] documented in this encounterMissouri Rehabilitation CenterYeehszrxgo72-93-4471 History of Present illness Narrative* Luci Rios [...] 2 times daily with meals Continuous Glucose Cna Gna (FreeStyle Agueda 2 Niotaze) device 1 each, Does not apply, 4 times daily Continuous Glucose Sensor (FreeStyle Agueda 3 Plus Sensor) [facility] USE 1 SENSOR EVERY 15 DAYS TO MONITOR BLOOD SUGAR. dapagliflozin (FARXIGA) 5 mg, Oral, Daily Idtqkxrmhbf-Tzfdioeqe-Zafdnp (Trelegy Ellipta) 200-62.5-25 MCG/ACT aerosol powder 1 puff, Inhalation, Daily, INHALE 1 PUFF ONCE DAILY, rinse mouth after use glipiZIDE (GLUCOTROL) 5 mg, Oral, 2 times daily before meals insulin glargine-yfgn (SEMGLEE (YFGN)) 20 Units, Subcutaneous, Nightly insulin pen needle (B-D ULTRAFINE III SHORT PEN) 31G X 8 mm [facility] Daily losartan-hydroCHLOROthiazide (Hyzaar) 100-25 MG tablet 1 [...] History: Diagnosis Date AYESHA (acute kidney injury) ([facility]) Arthritis of ankle, right Asthma Avascular necrosis of talus, right ([facility]) Dietrich cyst, right Enlarged and hypertrophic nails Eosinophilia Equinus contracture of right ankle Gastroesophageal reflux disease Hemorrhoids Hyperlipemia, mixed (CMS/HCC) Hypertension ([facility]) Onychomycosis of toenail Osteoarthritis of both knees, unspecified osteoarthritis type Osteochondral defect of talus Pain, foot, right, chronic Peroneal tendinitis, right Right ankle pain Right leg swelling Severe persistent asthma Skin tags, multiple acquired Sprain of right ankle, sequela T2DM (type 2 diabetes mellitus) ([facility]) Past Surgical History: Procedure Laterality Date [...] Orders US renal complete documented in this encounterMissouri Rehabilitation CenterNxpuaiyrlx16-02-9254 Instructions* Patient Instructions* Luci Rios NP - 09/17/2024 4:00 PM EDT No med changes, keep your follow up appt I am going to order an Ultrasound of kidneys [facility] Same day as the Ultrasound recheck blood work documented in this [facility]03-31-2025 History of Present illness Narrative* Abisai [...] History: Diagnosis Date AYESHA (acute kidney injury) ([facility]) Arthritis of ankle, right Asthma Avascular necrosis of talus, right ([facility]) Dietrich cyst, right Enlarged and hypertrophic nails Eosinophilia Equinus contracture of right ankle Gastroesophageal reflux disease Hemorrhoids Hyperlipemia, mixed ([facility]) Hypertension ([facility]) Onychomycosis of toenail Osteoarthritis of both knees, unspecified osteoarthritis type Osteochondral defect of talus Pain, foot, right, chronic Peroneal tendinitis, right Right ankle pain Right leg swelling Severe persistent asthma Skin tags, multiple acquired Sprain of right ankle, sequela T2DM (type 2 diabetes mellitus) ([facility]) Medications Current Outpatient Medications: albuterol HFA [...] Disp: 180 tablet, Rfl: 1 Continuous Glucose Cna Gna (FreeStyle Agueda 2 Niotaze) device, 1 each in the morning and 1 each at noon and 1 each in the evening and 1 each before bedtime., Disp: 1 each, Rfl: 0 Continuous Glucose Sensor (FreeStyle Agueda 3 Plus Sensor) [facility], USE 1 SENSOR EVERY 15 DAYS TO MONITOR BLOOD SUGAR., Disp: , Rfl: dapagliflozin (Farxiga) 5 MG, Take 1 tablet (5 mg) by mouth Daily, Disp: 90 tablet, Rfl: 0 Wmwylplsbuq-Spingryyb-Wweayi (Trelegy Ellipta) 200-62.5-25 MCG/ACT aerosol powder , [...] polyneuropathy, with long-term current use of insulin ([facility]) E11.42 Z79.4 Patient was examined and [...] understanding. Abisai Boateng DPM documented in this encounterMissouri Rehabilitation CenterDsrbccmclx14-77-5538 History of Present illness Narrative* REKHA GRIDER - 07/29/2024 3:20 PM EST Pt states that about 2 weeks ago he had pain in his right knee and swelling in the right leg. Pt states it happened just the one time. Pt is having pin and needles in the left hand. 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, happens about 2-3x daily Pt needs a refill on his trelegy and albuterol inhaler wants to know if he can be on mounjaro Pt does not take januvia 100mg insurance will not pay for it- $600 a month for bottle CGM readings: 7 day, avg 235, >250 46%, 181-250 36%, 70-181 18% 14 day avg 210, 8.3%, >250 30%, 181-250 32%, 70-47496% 30 day avg 190, 7.9%, >250 18%, [...] 2 times daily with meals Continuous Glucose Cna Gna (FreeStyle Agueda 2 Niotaze) device 1 each, Does not apply, 4 times daily Continuous Glucose Sensor (FreeStyle Agueda 3 Plus Sensor) [facility] USE 1 SENSOR EVERY 15 DAYS TO MONITOR BLOOD SUGAR. furosemide (LASIX) 40 mg, Daily glipiZIDE (GLUCOTROL) 5 mg, Oral, 2 times daily before meals insulin glargine-yfgn (SEMGLEE (YFGN)) 20 Units, Subcutaneous, Nightly insulin pen needle (B-D ULTRAFINE III SHORT PEN) 31G X 8 mm [facility] Daily losartan-hydroCHLOROthiazide (Hyzaar) 100-25 MG tablet 1 [...] History: Diagnosis Date AYESHA (acute kidney injury) ([facility]/HCC) Arthritis of ankle, right Asthma (CMS/[facility]) Avascular necrosis of talus, right (CMS/HCC) [...] ankle, sequela T2DM (type 2 diabetes mellitus) ([facility]) Past Surgical History: Procedure Laterality Date [...] seen pulmonology in the past Relevant Medications Jwnpmpqkmqs-Aqmjplnft-Nrszax (Trelegy Ellipta) 200-62.5-25 MCG/ACT aerosol powder albuterol HFA 90 mcg/act inhaler Gastro-esophageal reflux disease without esophagitis Recommendations: freq small meals, nothing to eat or drink at least 2 hours prior to bed, limit caffeine, alcohol, as well as spicy foods Meds to limit or avoid if possible: NSAIDS Elevate HOB if possible Med: omeprazole Hyperlipidemia ([facility]) On statin therapy Check labs yearly, and prn dose changes Type 2 diabetes mellitus without complications ([facility]) Check blood sugars daily, notify if [...] Relevant Medications dapagliflozin (Farxiga) 5 MG intermediate manager (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 ([facility]) Continue with insulin Morbid (severe) obesity due to excess calories ([facility]) Discussed with patient their BMI (actual, verses recommended). We have also discussed lifestyle modifications: attempts to perform physical activity as chronic conditions allow, also to monitor dietary intake: increasing protein/fruits/veggies and lowering carb intake (unless contraindicated). Limit sodas, juices, and sugary drinks. Body mass index (BMI) 38.0-38.9, adult Idiopathic aseptic necrosis of right foot ([facility]) Has seen podiatry in the past Primary hypertension ([facility]) Please check blood pressure daily and [...] NP - 07/29/2024 7:44 AM ESTAssociated Problem(s): retirement (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 ([facility]) Continue with insulin * Luci Rios NP - 07/29/2024 7:44 AM ESTAssociated Problem(s): Hyperlipidemia ([facility]) On statin therapy Check labs yearly, and prn dose changes * Luci Rios NP - 07/29/2024 7:44 AM ESTAssociated Problem(s): Type 2 diabetes mellitus without complications ([facility]) Check blood sugars daily, notify if [...] contraindications for that A1c 8.3% 07/18/24 * Luci Rios NP - 07/29/2024 7:43 AM ESTAssociated [...] ESTAssociated Problem(s): Severe persistent asthma without complication ([facility]) Current meds: trelegy, albuterol #2 samples of trelegy: 100's, lot MV9W, exp 06/21 In the past has used trelegy 200, symbicort 160, and flovent Finds benefit with trelegy 100's Has seen pulmonology in the past * Luci Rios NP - 07/29/2024 7:41 AM ESTAssociated Problem(s): Type 2 diabetes mellitus with diabetic polyneuropathy, with long-term current use of insulin ([facility]) No current treatment Recommend proper fitting toes, freq foot inspections, good glycemic control documented in this encounterMissouri Rehabilitation CenterBybslnjjzq31-54-3048 Instructions* Patient Instructions* Luci Rios NP - 07/29/2024 3:20 PM EST Aldactone increase to 2 pills daily (total 100mg) Diabetes: I want to check with insurance about either Farxiga or Jardiance -it will be 1 pill daily, pulls sugar out through the urine. I will also check into the Mounjaro/Ozempic/Trulicity documented in this [facility]12-02-2024 History of Present illness Narrative* Marquis [...] polyneuropathy, with long-term current use of insulin ([facility]) - Primary Glipizide 5mg Metformin 850mg [...] myalgias Continue current regimen. documented in this [facility]12-02-2024 Instructions* Patient Instructions* Marquis Velasquez NP - 04/27/2024 3:30 PM EST Keep up the good work! Call if you need anything!!! documented in this [facility]09-30-2024 History of Present illness Narrative* Abisai [...] History: Diagnosis Date AYESHA (acute kidney injury) ([facility]) Arthritis of ankle, right Asthma ([facility]) Avascular necrosis of talus, right ([facility]) Dietrich cyst, right Enlarged and hypertrophic nails Eosinophilia Equinus contracture of right ankle Gastroesophageal reflux disease Hemorrhoids Hyperlipemia, mixed ([facility]) Hypertension ([facility]) Onychomycosis of toenail Osteoarthritis of both knees, unspecified osteoarthritis type Osteochondral defect of talus Pain, foot, right, chronic Peroneal tendinitis, right Right ankle pain Right leg swelling Severe persistent asthma ([facility]) Skin tags, multiple acquired Sprain of right ankle, sequela T2DM (type 2 diabetes mellitus) ([facility]) Medications Current Outpatient Medications: albuterol HFA [...] Disp: 180 tablet, Rfl: 1 Continuous Glucose Cna Gna (fypioyle Agueda 2 Niotaze) device, 1 each in the morning and 1 each at noon and 1 each in the evening and 1 each before bedtime., Disp: 1 each, Rfl: 0 Dhuvtjkiypl-Lbqswrsli-Urxdzb (Trelegy Ellipta) 200-62.5-25 MCG/ACT aerosol powder , [...] polyneuropathy, with long-term current use of insulin ([facility]) E11.42 Ambulatory referral to Podiatry Z79.4 3. Onychomycosis B35.1 Patient was examined and evaluated. Patient is low risk for diabetic foot complications. He does have some mild loss of vibratory sensation bilaterally to suggest early neuropathy. No preulcerative lesions. 10 toenails were debrided in length and thickness today utilizing a nail nipper and electricbur outer diameter grinder tool without incident. I have discussed the importance [...] understanding. Abisai Boateng DPM documented in this encounterMissouri Rehabilitation CenterBjvwpxxtgn47-08-0215 History of Present illness Narrative* Marquis Velasquez NP - 01/22/2024 4:29 PM EDTAssociated Problem(s): Severe persistent asthma without complication ([facility]) Trelegy And Albuterol PRN. Feels symptoms [...] for Follow-up (3MO, ) and Poison Suzi ([facility] WAS GIVEN STEROID AND CREAM. [...] UNIT/ML injection Severe persistent asthma without complication ([facility]) Trelegy And Albuterol PRN. Feels symptoms are well managed. Denies any exacerbations, cough, shortness of breath. Relevant Medications albuterol HFA 90 mcg/act inhaler Bmgfotnzbdp-Hqhxjtrhn-Aydydp (Trelegy Ellipta) 200-62.5-25 MCG/ACT aerosol powder Gastroesophageal [...] of insulin (CMS/HCC) Relevant Medications Continuous Glucose Cna Gna ([employer]Style Agueda 2 Niotaze) device Primary hypertension ([facility]) Relevant Medications losartan-hydroCHLOROthiazide (Hyzaar) 100-25 MG tablet amLODIPine (Norvasc) 10 MG tablet documented in this encounterMissouri Rehabilitation [id number] Instructions* Patient Instructions* Marquis Velasquez NP - [...] carbohydrates, and simple sugars. documented in this encounterMissouri Rehabilitation [id number] [facility] noteAs[facility]06-[facility]-2022 NotePROCEDURE: XR ANKLE RT MIN [...] Electronically authenticated by: MICHELLE IBRAHIM Date: 2021-10-26 08:54[facility]04-12-2022 NotePROCEDURE: XR ANKLE RT MIN 3 VIEWS COMPARISON: None. 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 No acute fracture, dislocation or mechanical failure. Stable degenerative changes. Mild enthesopathic spurring of the calcaneus SOFT TISSUES:Mild soft tissue swelling EFFUSION:None visible. OTHER: Negative. IMPRESSION: Stable talus arthroplasty Electronically authenticated by: GERA MONTGOMERY Date: 2021-09-05 15:22[facility] HospitalEvaluation noteNo assessment information availableMarietta Osteopathic Clinic Work Phone: Evaluation note* Diagnosis Primary hypertension (CMS/HCC)- Primary Unspecified essential hypertension Type 2 diabetes mellitus with diabetic polyneuropathy, with long-term current use of insulin ([facility]/HCC) Other hyperlipidemia ([facility]/HCC) Gastroesophageal reflux disease without esophagitis Esophageal reflux [...] of insulin (CMS/HCC) documented in this encounter [facility] HealthcareEvaluation [facility]* Diagnosis Primary hypertension (CMS/HCC)- Primary [...] encounter [facility]* Diagnosis Primary hypertension ([facility]/HCC)- Primary Unspecified essential hypertension Type 2 diabetes mellitus with diabetic polyneuropathy, with long-term current use of insulin ([facility]/HCC) Other hyperlipidemia ([facility]/HCC) Gastroesophageal reflux disease without esophagitis Esophageal reflux Type 2 diabetes mellitus with diabetic polyneuropathy, with long-term current use of insulin ([facility])- Primary Resistant hypertension ([facility]/HCC) Hyperlipidemia, unspecified hyperlipidemia type ([facility]/HCC)- Primary Resistant hypertension ([facility]/HCC) Type 2 diabetes mellitus with diabetic polyneuropathy, with long-term current use of insulin ([facility]) Gastroesophageal reflux disease without esophagitis Esophageal reflux Primary hypertension ([facility]/HCC) Unspecified essential hypertension Type 2 diabetes mellitus with diabetic polyneuropathy, with long-term current use of insulin ([facility])- Primary Severe persistent asthma without complication ([facility]/HCC) Resistant hypertension ([facility]/HCC) Gastroesophageal reflux disease without esophagitis Esophageal reflux Mixed hyperlipidemia ([facility]) Mixed hyperlipidemia Type 2 diabetes mellitus without complication, with long-term current use of insulin ([facility]) Primary hypertension ([facility]/HCC) Unspecified essential hypertension Hyperlipidemia, unspecified hyperlipidemia type ([facility]/HCC) Type 2 diabetes mellitus with diabetic polyneuropathy, with long-term current use of insulin ([facility])- Primary Resistant hypertension ([facility]/HCC) Gastroesophageal reflux disease without esophagitis Esophageal reflux Type 2 diabetes mellitus with diabetic polyneuropathy, with long-term current use of insulin ([facility])- Primary documented in this encounter [facility] HealthcareEvaluation note* Diagnosis Type 2 diabetes mellitus with diabetic polyneuropathy, with long-term current use of insulin ([facility])- Primary Severe persistent asthma without complication ([facility]) Resistant hypertension ([facility]/HCC) Gastroesophageal reflux disease without esophagitis Esophageal reflux Mixed hyperlipidemia ([facility]/HCC) Mixed hyperlipidemia Type 2 diabetes mellitus without complication, with long-term current use of insulin ([facility]) Primary hypertension ([facility]/HCC) Unspecified essential hypertension Hyperlipidemia, unspecified hyperlipidemia type ([facility]/HCC) documented in this encounter [facility] HealthcareEvaluation note* Diagnosis Onychodystrophy- Primary Other specified disease of nail Type 2 diabetes mellitus with diabetic polyneuropathy, with long-term current use of insulin ([facility]) Onychomycosis Dermatophytosis of nail documented in this encounter [facility] HealthcareEvaluation note* Diagnosis Primary hypertension (CMS/HCC)- Primary [...] without complication (CMS/HCC) documented in this encounter [facility] HealthcareEvaluation note* Diagnosis Primary hypertension (CMS/HCC)- Primary [...] 2 diabetes mellitus without complications (CMS/HCC) intermediate manager (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 (CMS/HCC) Morbid (severe) obesity due to excess calories (CMS/HCC) Gastro-esophageal reflux disease without esophagitis Body mass index (BMI) 38.0-38.9, adult 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 polyneuropathy, with long-term current use of insulin ([facility]/HCC) Severe persistent asthma without complication (CMS/HCC) Mixed hyperlipidemia ([facility]/HCC) Mixed hyperlipidemia documented in this encounter [facility] HealthcareEvaluation note* Diagnosis Primary hypertension ([facility]/HCC)- Primary Unspecified essential hypertension Type 2 diabetes mellitus with diabetic polyneuropathy, with long-term current use of insulin ([facility]/HCC) Other hyperlipidemia (CMS/HCC) Gastroesophageal reflux disease without esophagitis Esophageal reflux Type 2 diabetes mellitus with diabetic polyneuropathy, with long-term current use of insulin ([facility]/HCC)- Primary Resistant hypertension (CMS/HCC) Hyperlipidemia, unspecified hyperlipidemia type (CMS/HCC)- Primary Resistant hypertension (CMS/HCC) Type 2 diabetes mellitus with diabetic polyneuropathy, with long-term current use of insulin (CMS/HCC) Gastroesophageal reflux disease without esophagitis Esophageal reflux Primary hypertension (CMS/HCC) Unspecified essential hypertension Type 2 diabetes mellitus with diabetic polyneuropathy, with long-term current use of insulin ([facility]/HCC)- Primary Severe persistent asthma without complication (CMS/HCC) [...] 2 diabetes mellitus without complications (CMS/HCC) intermediate manager (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 (CMS/HCC) Morbid [...] complication, with long-term current use of insulin ([facility]/HCC) Hyperlipidemia, unspecified hyperlipidemia type (CMS/HCC) Resistant hypertension (CMS/HCC) Type 2 diabetes mellitus with diabetic polyneuropathy, with long-term current use of insulin ([facility]) Gastroesophageal reflux disease without esophagitis Esophageal reflux Edema of both lower extremities Elevated serum creatinine- Primary Other nonspecific findings on examination of blood documented in this encounter [facility] HealthcareEvaluation note* Diagnosis Primary hypertension (CMS/HCC)- Primary Unspecified essential hypertension Type 2 diabetes mellitus with diabetic polyneuropathy, with long-term current use of insulin (CMS/HCC) Other hyperlipidemia Gastroesophageal reflux disease without esophagitis Esophageal reflux Type 2 diabetes mellitus with diabetic polyneuropathy, with long-term current use of insulin ([facility]/HCC)- Primary Resistant hypertension (CMS/HCC) Hyperlipidemia, unspecified hyperlipidemia type (CMS/HCC)- Primary Resistant hypertension (CMS/HCC) Type 2 diabetes mellitus with diabetic polyneuropathy, with long-term current use of insulin ([facility]/HCC) Gastroesophageal reflux disease without esophagitis Esophageal reflux [...] Unspecified essential hypertension Hyperlipidemia, unspecified hyperlipidemia type ([facility]/HCC) Type 2 diabetes mellitus with diabetic polyneuropathy, with long-term current use of insulin ([facility])- Primary Resistant hypertension (CMS/HCC) Gastroesophageal reflux disease without esophagitis Esophageal reflux Primary hypertension (CMS/HCC)- Primary Unspecified essential hypertension Type 2 diabetes mellitus without complications intermediate manager (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 ([facility]) Morbid (severe) obesity due to excess calories ([facility]) Gastro-esophageal reflux disease without esophagitis Body mass index (BMI) 38.0-38.9, adult Idiopathic aseptic necrosis of right foot ([facility]) Type 2 diabetes mellitus with diabetic polyneuropathy, with long-term current use of insulin ([facility]) Severe persistent asthma without complication ([facility]) Mixed hyperlipidemia ([facility]) Mixed hyperlipidemia Primary hypertension ([facility])- Primary Unspecified essential hypertension Morbid (severe) obesity due to excess calories ([facility]) Type 2 diabetes mellitus without complication, with long-term current use of insulin Hyperlipidemia, unspecified hyperlipidemia type ([facility]/HCC) Resistant hypertension ([facility]) Type 2 diabetes mellitus with diabetic polyneuropathy, with long-term current use of insulin ([facility]) Gastroesophageal reflux disease without esophagitis Esophageal reflux Edema of both lower extremities Onychodystrophy- Primary Other specified disease of nail Onychomycosis Dermatophytosis of nail Type 2 diabetes mellitus with diabetic polyneuropathy, with long-term current use of insulin ([facility]) documented in this encounter [facility] HealthcareEvaluation note* Diagnosis Primary hypertension ([facility]/HCC)- Primary Unspecified essential hypertension Type 2 diabetes mellitus with diabetic polyneuropathy, with long-term current use of insulin ([facility]) Other hyperlipidemia Gastroesophageal reflux disease without esophagitis Esophageal reflux Type 2 diabetes mellitus with diabetic polyneuropathy, with long-term current use of insulin ([facility])- Primary Resistant hypertension ([facility]) Hyperlipidemia, unspecified hyperlipidemia type ([facility]/HCC)- Primary Resistant hypertension ([facility]/HCC) Type 2 diabetes mellitus with diabetic polyneuropathy, with long-term current use of insulin ([facility]) Gastroesophageal reflux disease without esophagitis Esophageal reflux Primary hypertension ([facility]) Unspecified essential hypertension Type 2 diabetes [...] Type 2 diabetes mellitus without complications intermediate manager (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 (CMS/HCC) Morbid (severe) obesity due to excess calories (CMS/HCC) Gastro-esophageal reflux disease without esophagitis Body mass index (BMI) 38.0-38.9, adult Idiopathic aseptic necrosis of right foot (CMS/[facility]) Type 2 diabetes mellitus with diabetic [...] examination of blood documented in this encounter [facility] HealthcareEvaluation note* Diagnosis Primary hypertension (CMS/HCC)- Primary [...] hypertension Type 2 diabetes mellitus without complications retirement (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 (CMS/HCC) Morbid (severe) obesity due to excess calories (CMS/HCC) Gastro-esophageal reflux disease without esophagitis Body mass index (BMI) 38.0-38.9, adult Idiopathic aseptic necrosis of right foot (CMS/[facility]) Type 2 diabetes mellitus with diabetic [...] polyneuropathy, with long-term current use of insulin ([facility]/HCC) Gastroesophageal reflux disease without esophagitis Esophageal reflux Edema of both lower extremities Elevated serum creatinine- Primary Other nonspecific findings on examination of blood Primary hypertension (CMS/HCC) Unspecified essential hypertension Type 2 diabetes mellitus without complication, with long-term current use of insulin documented in this encounter [facility] HealthcareEvaluation note* Diagnosis Primary hypertension (CMS/HCC)- Primary [...] hypertension Type 2 diabetes mellitus without complications retirement (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 (CMS/HCC) Morbid (severe) [...] essential hypertension Edema of both lower extremities retirement (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 (CMS/HCC) Morbid (severe) obesity due to excess calories (CMS/HCC) Severe persistent asthma without complication (CMS/HCC) Elevated serum creatinine Other nonspecific findings on examination of blood documented in this encounter [facility] HealthcareEvaluation note* Diagnosis Primary hypertension- Primary Unspecified [...] 2 diabetes mellitus without complications (HCC) intermediate manager (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 (HCC) Morbid (severe) obesity due to excess calories ([facility]-HCC) Gastro-esophageal reflux disease without esophagitis Body mass [...] essential hypertension Edema of both lower extremities retirement (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 (HCC) Morbid (severe) [...] esophagitis Esophageal reflux [facility] this encounter [facility]* Diagnosis Primary hypertension- Primary Unspecified essential [...] Type 2 diabetes mellitus without complications (HCC) retirement (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 (HCC) Morbid (severe) [...] hypertension Edema of both lower extremities intermediate manager (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 (HCC) Morbid [...] insulin (HCC)- Primary documented in this encounter [facility] HealthcareEvaluation note* Diagnosis Primary hypertension- Primary Unspecified [...] Type 2 diabetes mellitus without complications (HCC) retirement (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 (HCC) Morbid (severe) [...] hypertension Edema of both lower extremities intermediate manager (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 (HCC) Morbid [...] insulin (HCC)- Primary documented in this encounter [facility]* Diagnosis Primary hypertension- Primary Unspecified essential [...] 2 diabetes mellitus without complications (HCC) intermediate manager (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 (HCC) Morbid (severe) obesity due to excess calories ([facility]-HCC) Gastro-esophageal reflux disease without esophagitis Body mass index (BMI) 38.0-38.9, adult 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) Type 2 diabetes mellitus with diabetic polyneuropathy, with long-term current use of insulin (HCC) Severe persistent asthma without complication (HCC) Mixed hyperlipidemia Mixed hyperlipidemia Primary hypertension- Primary Unspecified essential hypertension Morbid (severe) obesity due to excess calories ([facility]-HCC) Type 2 diabetes mellitus without complication, with [...] essential hypertension Edema of both lower extremities retirement (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 (HCC) Morbid (severe) [...] both lower extremities documented in this encounter [facility] HealthcareEvaluation note* Diagnosis Onset Date Resolution Status Admit Date Chronic pain of right ankle acuteSept2024 3:00pmEdema of both lower extremitiesacuteSept2024 3:00pmLong term current use of insulinacuteSept2024 3:00pmMorbid (severe) obesity due to excess caloriesacuteSept2024 3:00pmPrimary hypertensionacuteSept2024 3:00pmType 2 diabetes mellitus with diabetic polyneuropathy, with long-term curreacuteSeptember 2024 3:00pm [facility] Work Phone: Evaluation note* Diagnosis Primary hypertension- [...] 2 diabetes mellitus without complications (HCC) intermediate manager (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 (HCC) Morbid [...] essential hypertension Edema of both lower extremities retirement (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 (HCC) Morbid (severe) [...] HealthcareHistory and physical note Author Sav Andrews [facility] December 22, 2021 9:32amNote Date/TimeJuly 2021 9:32[place] [address] Gastroenterology H&P Signed Patient: Lavern Dietz MR #: [id number] : 1965 Acct:[id number] Age/Sex: 56 / M Adm Date: 2 Loc: Room: Type: [facility] Attending Dr: Sav Andrews MD Copies to: [...] <Electronically signed by Sav Andrews MD> 12/22/21931 [facility] Work Phone: Reason for referral (narrative)* Consultation (Routine) - Pending ReviewSpecialtyDiagnoses / ProceduresReferred By Contact Referred To ContactPodiatry Diagnoses Type 2 diabetes mellitus with diabetic polyneuropathy, with long-term current use of insulin ([facility]) Procedures SC OFFICE/OUTPATIENT NEW HIGH MDM 60 MINUTES Marquis Velasquez NP [address] [facility] [place] [address] Roberto Rita W, DPM [address] [place] [address] Referral IDStatusReasonStart DateExpiration DateVisits RequestedVisits [id number] Review Specialty Services Required / SELNEA Evans for referral (narrative)No reason for referral information availableSt. Vincent Hospital Work Phone: Chief Complaint and Reason for Visit Chief Complaint Screening Screening Chief Complaint Hemorrhoids, Rectal Bleeding Chief Complaint Hemorrhoids, Rectal Bleeding Hemorrhoids, Rectal Bleeding Chief Complaint Admit Date 6W February 11, 2025 3:00pm Reason for Visit Admit Date Chronic pain of right ankle February 112024 3:00pm Edema of both lower extremities [facility] 3:00pm intermediate manager current use of insulin [facility] er 2024 3:00pm Morbid (severe) obesity due [...] Antwan Perez MD [address] [place] [address] [facility] - [facility] [place]12/[place]/23 Marquis Velasquez NP [address] [place] [address] Nurse PractitionerCity Of Hope, [place]12/30/23Team MemberRelationshipSpecialtyStart DateEnd Date Antwan Perez MD [address] [place] [address] PCP - [facility]12/30/23 Shaikh Baker MD [address] [place] [address] PCP - S[place]an Nnexmblrri31/1/24 Marquis Velasquez, TRANSIT PLANNING MANAGER [address] [place] [address] Nurse PractitionerCity Of Hope, [place]12/30/23Team MemberRelationshipSpecialtyStart DateEnd Date Antwan Perez MD [address] [place] [address] PCP - [facility] Medicine12/30/23 Shaikh Baker MD [address] [place] [address] PCP - S[place]an Mlrlvbhjae79/1/24 Marquis Velasquez NP [address] [place] [address] Nurse PractitionerCity [facility], [place]12/30/23Team MemberRelationshipSpecialtyStart DateEnd Date Antwan Perez MD [address] [place] [address] PCP - [facility]12/30/23 Shaikh Baker MD [address] [place] [address] [facility] Marquis Velasquez, MARIA FERNANDA [address] [place] [address] Nurse PractitionerCity Of [facility], [place]12/30/23Team MemberRelationshipSpecialtyStart DateEnd Date Antwan Perez MD [address] [place] [address] PCP - [facility], [place]12/30/23 Marquis Velasquez, MARIA FERNANDA [address] [place] [address] Nurse PractitionerCity [facility], [place]12/30/23Team MemberRelationshipSpecialtyStart DateEnd Date Antwan Perez MD [address] [place] [address] PCP - Generalmi Medicine12/30/23 Marquis Velasquez NP [address] [place] [address] Nurse PractitionerCity [facility], [place]12/30/23Team MemberRelationshipSpecialtyStart DateEnd Date Antwan Perez MD [address] [place] [address] PCP - [facility]12/30/23 Marquis Velasquez NP [address] [place] [address] Nurse PractitionerCity [facility], [place]12/30/23Team MemberRelationshipSpecialtyStart DateEnd Date Antwan Perez MD [address] [place] [address] PCP - [facility]City [facility], [place]12/30/23 Marquis Velasquez, MARIA FERNANDA [address] [place] [address] Nurse PractitionerCity [facility], [place]12/30/23Team MemberRelationshipSpecialtyStart DateEnd Date Antwan Perez MD [address] [place] [address] [facility]/23 Marquis Velasquez NP [address] [place] [address] Nurse PractitionerMercyone [facility] Centerly Medicine12/30/23Team MemberRelationshipSpecialtyStart DateEnd Date Antwan Perez MD [address] [place] [address] PCP - [facility]Mer[facility]12/30/23 Shaikh Baker MD [address] [place] [address] PCP - Soudan Aolbleivwf30/1/24 Marquis Velasquez NP [address] [place] [address] Nurse PractitionerCity [facility], [place]12/30/23Team MemberRelationshipSpecialtyStart DateEnd Date Antwan Perez MD [address] [place] [address] [facility] - [facility]12/30/23 Shaikh Baker MD [address] [place] [address] PCP - [place]an Cnkqqaxgno01/1/24 Marquis Velasquez, MARIA FERNANDA [address] [place] [address] Nurse Pract[facility]erAth[facility] Medicine12/30/23Team MemberRelationshipSpecialtyStart DateEnd Date Antwan Perez MD [address] [place] [address] PCP - GeneralFamily Medicine12/30/23 Shaikh Baker MD [address] [place] [address] PCP - [place]an Qtdoyzxxbm86/1/24 Marquis Velasquez, TRANSIT PLANNING MANAGER [address] [place] [address] Nurse Practitionermily Medicine12/30/23Team MemberRelationshipSpecialtyStart DateEnd Date Antwan Perez MD [address] [place] [address] PCP - Generalmily Medicine12/30/23 Shaikh Baker MD [address] [place] [address] PCP - Soudan Lkchprjvjw05/1/24 Marquis Velasquez NP [address] [place] [address] Nurse PractitionerMercyone [facility] Centerly Medicine12/30/23Team MemberRelationshipSpecialtyStart DateEnd Date Antwan Perez MD [address] [place] [address] PCP - Generalmily Medicine12/30/23 Shaikh Baker MD [address] [place] [address] PCP - S[place]an Vydealnpuu35/1/24 Marquis Velasquez NP [address] [place] [address] Nurse PractitionerMercyone [facility]yers[facility] Centerly Medicine12/30/23Team MemberRelationshipSpecialtyStart DateEnd Date Antwan Perez MD [address] [place] [address] PCP - GeneralMercyone [facility] Centerly Medicine12/30/23 Shaikh Baker MD [address] [place] [address] PCP - Soudan Tzylpilulo87/1/24 Marquis Velasquez NP [address] [place] [address] [facility]12/30/23Team MemberRelationshipSpecialtyStart DateEnd Date Antwan Perez MD [address] [place] [address] PCP - [facility]Mer[facility]12/30/23 Shaikh Baker MD [address] [place] [address] PCP - Soudan Qgvkrsvmap37/1/24 Marquis Velasquez NP [address] [place] [address] [facility]12/30/23Team MemberRelationshipSpecialtyStart DateEnd Date Antwan Perez MD [address] [place] [address] PCP - [facility], [place]12/30/23 Shaikh Baker MD [address] [place] [address] [facility] Marquis Velasquez NP [address] [place] [address] Nurse PractitionerCity [facility], [place]12/30/23Team MemberRelationshipSpecialtyStart DateEnd Date Antwan Perez MD [address] [place] [address] PCP - [facility]12/30/23 Marquis Velasquez NP [address] [place] [address] [facility], [place]12/30/23Team MemberRelationshipSpecialtyStart DateEnd Date Antwan Perez MD [address] [place] [address] PCP - [facility]12/30/23 Marquis Velasquez NP [address] [place] [address] Nurse [facility], [place]12/30/23Team MemberRelationshipSpecialtyStart DateEnd Date Antwan Perez MD [address] [place] [address] PCP - [facility]12/30/23 Marquis Velasquez NP [address] [place] [address] Nurse Practitionermily Medicine12/30/23Team MemberRelationshipSpecialtyStart DateEnd Date Antwan Perez MD [address] [place] [address] PCP - GeneralFamily Medicine12/30/23 Marquis Velasquez, MARIA FERNANDA [address] [place] [address] [facility]12/30/23Team MemberRelationshipSpecialtyStart DateEnd Date Antwan Perez MD [address] [place] [address] PCP - Generalmi Medicine12/30/23 Marquis Velasquez NP [address] [place] [address] [facility]12/30/23Team MemberRelationshipSpecialtyStart DateEnd Date Antwan Perez MD [address] [place] [address] PCP - GeneralFamily Medicine12/30/23 Marquis Velasquez, MARIA EFRNANDA [address] [place] [address] [facility]12/30/23Team MemberRelationshipSpecialtyStart DateEnd Date Antwan Perez MD [address] [place] [address] PCP - Generalmily Medicine12/30/23 Marquis Velasquez NP [address] [place] [address] Nurse [facility], [place]12/30/23Team MemberRelationshipSpecialtyStart DateEnd Date Antwan Perez MD [address] [place] [address] PCP - [facility]12/30/23 Marquis Velasquez NP [address] [place] [address] Nurse [facility], [place]12/30/23Team MemberRelationshipSpecialtyStart DateEnd Date Antwan Perez MD [address] [place] [address] PCP - [facility]12/30/23 Marquis Velasquez NP [address] [place] [address] Nurse [facility]12/30/23Team MemberRelationshipSpecialtyStart DateEnd Date Antwan Perez MD [address] [place] [address] PCP - [facility]12/30/23 Marquis Velasquez NP [address] [place] [address] Nurse [facility]12/30/23Team MemberRelationshipSpecialtyStart DateEnd Date Antwan Perez MD [address] [place] [address] PCP - [facility]12/30/23 Marquis Velasquez NP [address] [place] [address] Nurse [facility], [place]12/30/23 Team Status: Active Member Role Status Dates Luci Rios TRANSIT PLANNING MANAGER-C Primary Care Provider Active Team Status: Inactive Member Role Status Dates Luci Rios NP-C Primary Care Provider Active Start: February 11, 2025 End: February 11, 2025Luci Rios NP-CAttending ProviderActiveStart: February 11, 2025 End: February 11, 2025Team MemberRelationshipSpecialtyStart DateEnd Date Antwan Perez MD [address] [place] [address] PCP - [facility]12/30/23 Luci Rios NP [address] [place] [address] Nurse [facility]02/23/25Team MemberRelationshipSpecialtyStart DateEnd Date Antwan Perez MD [address] [place] [address] [facility] - [facility]12/30/23 Luci Rios NP [address] [place] [address] Nurse [facility]02/23/25Team MemberRelationshipSpecialtyStart DateEnd Date Antwan Perez MD [address] [place] [address] PCP - GeneralFamily Medicine12/30/23 Shaikh Baker MD [address] [place] [address] PCP - Soudan Zsiexzfxok05/1/244 Marquis Velasquez NP Nurse PractitionerFamaly Medicine Luci Rios NP [address] [place] [address] Nurse Pract[facility]er[facility]02/23/25Team MemberRelationshipSpecialtyStart DateEnd Date Shaikh Baker MD PCP - GeneralInternal Medicine Antwan Perez MD [address] [place] [address] PCP - Generalmily Medicine12/30/23 Shaikh Baker MD [address] [place] [address] PCP - Soudan Bzbcpqbcgn51/1/244 Marquis Velasquez NP Nurse PractitionerF[facility] Medicine Luci Rios NP [address] [place] [address] Nurse PractitionerFamily Medicine02/23/25Team MemberRelationshipSpecialtyStart DateEnd Date Shaikh Baker MD PCP - GeneralInternal Medicine Shaikh Baker MD PCP - GeneralInternal Medicine Antwan Perez MD [address] [place] [address] PCP - GeneralCity [facility], [place]12/30/23 Shaikh Baker MD [address] [place] [address] PCP - Soudan Waxvmmnwqo82/1/244 Marquis Velasquez NP [facility] Luci Rios NP [address] [place] [address] [facility]02/23/25Team MemberRelationshipSpecialtyStart DateEnd Date Antwan Perez MD [address] [place] [address] PCP - GeneralCity [facility], [place]12/30/23 Shaikh Baker MD [address] [place] [address] PCP - Johanna Lrwqjiihsx21/1/244 Marquis Velasquez NP Nurse PractitionerFafranciscan [facility] Medicine Luci Rios NP [address] [place] [address] Nurse PractitionerFamily Medicine02/23/25 (unrecognized sect ion and content) No Status Records FoundNo Status Records FoundNo Status Records Found INFORMATION SOURCE (unrecogn ized section and content) DATE CREATED AUTHOR 07/14/2022 [facility] DATE CREATED AUTHOR AUTHOR'S ORGANIZ ATION 10/02/2022 [facility] DATE CREATED AUTHOR AUTHOR'S ORGANIZ ATION 03/01/2025 [facility] EPIC Goals (unrecognized section and content) Goals may be documented in a n alternate sectionGoals may be documented in an alternate section Reason for Visit (unrecogniz ed section and content) ReasonOnset DateCommentsMed Frzzao084ReasonCommentsFollow-upMed Refills ReasonOnset DateCommentsMed Hakmie594ReasonCommentsFollow-up3MO,Poison IvyTBH ER WAS GIVEN STEROID AND CREAM. [...] polyneuropathy, with long-term current use of [facility] ([facility]) Procedures SC OFFICE/OUTPATIENT NEW HIGH MDM 60 MINUTES Marquis Velasquez NP [address] [place] [address] Rita Mejia, DPM [address] [place] [address] Referral IDStatusReasonStart DateExpiration DateVisits RequestedVisits [id number] Specialty Services Required /[id number] RefillReasonCommentsDM Foot CarePCP: Luci SEO 08/18/24, A1C: [...] BE BASED ON THE PRIMARY CLINICAL RECORDS. [facility] [employer] [facility]. provides no warranty or guarantee of the accuracy or completeness of information in this document.
--- OUTSIDE RECORDS SUMMARY | 2025-05-01 07:00 | XMS_ITS | Patient Health Record ---
Author Organization [facility] in [place] Address [address] [place] [address] Care Team Providers Care Learning Developer Name Role Phone Luci Rios CNP Primary Care Provider Unavail able Bharath Perez Unavailable [phone] [place] Unavailable [phone] Allergies No Known Allergies Reason For Referral [...] 5mL pre-filled syringe Unknown 05/28/2024 Administered Flu, (44863) -historic- HtudzFadtbla56/02/2025AdministeredFlu, Unspecified Rrobbyh1703/13/20225193RskeuhrpwmvuOBJF-RWQ-2 (COVID 19 Pfizer 30mcg/0.3mL)Unknown 1AdministeredTdap (Boostrix)Bpsjcif7203/23/2022dministeredZOSTER (SHINGLES) VACCINE (HZV)Soqfokt1003/23/2022dministered Social History Tobacco Use: Social History Observation Description Date Details (start date - stop date) Former Smoker NA - NA Tobacco Control (Standard) Question Answer Notes Tobacco use: Former smoker How long has it been since you last smoked?Greater than 10 yearsAdditional Findings: Tobacco nhb-fernZh-pkvu heavy cigarette smoker (40+/day) Problems Problem Type SNOMED Code ICD Code Onset Dates Problem Status W/U Status Risk Notes Problem Obesity (954729300) Obesity, unspecified (E66.9) ActiveconfirmedProblemUncomplicated severe persistent asthma (348338442)Severe persistent asthma, uncomplicated (J45.50)ActiveconfirmedPrior inhalers: Trelegy 200 > Symbicort 160 > FloventProblemLocalized, primary osteoarthritis of the ankle and/or foot (389800532)Primary osteoarthritis, right ankle and foot (M19.071)ActiveconfirmedProblemIdiopathic aseptic necrosis of unspecified bone (M87.00)ActiveconfirmedProblemIdiopathic aseptic necrosis of right ankle (M87.071)ActiveconfirmedProblemLong-term current use of inhaled steroid (246733103)MCFP (current) use of inhaled steroids (Z79.51)Activeconfirmed Problem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)ActiveconfirmedProblem Hypertension (23844521)Hypertension (I10)ActiveconfirmedProblemAsthma (922950839)Asthma (J45.909)ActiveconfirmedProblemGastroesophageal reflux disease (975684023)GERD (gastroesophageal reflux disease) (K21.9)ActiveconfirmedProblem Arthralgia of the ankle and/or foot (963942494)Right ankle pain (M25.571)Active confirmedProblemAcquired equinus deformity of right foot (M21.6X1)Active confirmedProblemDiabetes mellitus type 2 (92390505)Diabetes mellitus type 2, uncomplicated (E11.9)ActiveconfirmedProblemLocalized, primary osteoarthritis of the ankle and/or foot (726347550)Osteoarthritis of right ankle (M19.071)Active confirmedProblemDiabetic autonomic neuropathy due to type 2 diabetes mellitus (376018998)Type 2 diabetes mellitus with peripheral neuropathy (E11.43)Active confirmedProblemAvascular necrosis of bone (367593158)Avascular necrosis of bone (M87.00)ActiveconfirmedProblem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)Active confirmedProblemDiabetes mellitus (78483979)Diabetes mellitus (E11.9)Active confirmedProblemBody mass index 35.00 to 39.99 (257522504102834)Body mass index [BMI] 39.0-39.9, adult (Z68.39)ActiveconfirmedProblemPeripheral eosinophilia (D72.19)Activeconfirmed Vital Signs Heart Rate 60 /min 08/04/2024 Bnxynsfnvkn16.1 degrees Ldbnneamof07/11/2025Respiratory Rate18 /min08/04/2024 Essfkvib39 %08/04/2024lood pressure urcqiaoam83 mm Hg08/04/20248262Kpctph83 in 08/04/2024lood pressure yjvrewyu618 mm Hg08/04/20240847Yyzrlm435.6 lbs08/04/2024MI 37.37 kg/m208/04/2024 Encounters Encounter Location Date Provider Diagnosis Pulmonary Medicine [place] [address] [place] [address] 08/03/2024 [facility] Pulmonary Medicine [address] [place] [address]/25/[facility] [address] [place] [address] 08/04/2024[facility] [place] persistent asthma, uncomplicated J45.50 ; Peripheral eosinophilia D72.19 ; Diabetes mellitustype 2, uncomplicated E11.9 ; MCFP (current) use of inhaled steroids Z79.51 and [...] ACCESS PPO PLUS LOCAL PLAN [address] [place] [address] [id number] Dante Dietz Self - patient is [...]
--- OUTSIDE RECORDS SUMMARY | 2025-05-01 07:00 | XMS_ITS | Clinical Summary ---
Author Organization [facility] Address [id number] [place] [address] Care Team Providers Care Automotive Parts Manager Name Role Phone Laurent Baez MD Primary Care Provider [phone] Allergies No known active allergies Medications MedicationSigDispense QuantityRefillsLast FilledStart DateEnd DateStatus aspirin 81 mg chewable tablet Chew 81 mg and swallow daily.Active Active Problems ProblemNoted DateDiagnosed DateAcute kidney lsszau4112/16/2019 Social History Tobacco UseTypesPacks/DayYears UsedDateSmoking Tobacco: FormerSmokeless Tobacco: NeverAlcohol UseStandard Drinks/WeekCommentsNot Currently0 (1 standard drink = 0.6 oz pure alcohol)Social Connection and Isolation PanelAnswerDate RecordedIn a typical week, how many times do you talk on the phone with family, friends, or neighbors?More than three times a week12/16/2019How often do you get together with friends or relatives?More than three times a week12/16/2019How often do you attend synagogue or gnosticist services?More than 4 times per year12/16/2019Do you belong to any clubs or organizations such as synagogue groups, unions, fraternal or athletic groups, or school groups?No12/16/2019How often do you attend meetings of the clubs or organizations you belong to?Never12/16/2019Are you , , , , never , or living with a partner? 12/16/2019Overall Financial Resource Strain (CARDIA)AnswerDate RecordedHow hard is it for you to pay for the very basics like food, housing, medical care, and heating?Not hard at all12/16/2019PHQ-2AnswerDate RecordedTotal Myuvc501 [place] [employer] - Occupational Stress Questionnaire AnswerDate RecordedDo you feel stress - tense, restless, nervous, or anxious, or unable to sleep at night because yourmind is troubled all the time - these days? Not at all12/16/2019Exercise Vital SignAnswerDate RecordedOn average, how many days per week do you engage in moderate to strenuous exercise (like a brisk [employer])?3 days12/16/2019On average, how many minutes do you engage in exercise at this level?60 min12/16/2019PRAPARE - TransportationAnswerDate RecordedIn the past 12 months, has lack of transportation kept you from medical appointments or from getting medications?No12/16/2019In the past 12 months, has lack of transportation kept you from meetings, work, or from getting things needed for daily living?No12/16/2019ChildcareAnswerDate RecordedDo problems getting early childhood education coordinator make it difficult for you to work or study?No12/16/2019EmploymentAnswerDate RecordedDo you need help finding a local career center and/or a training program?No12/16/2019Purpose - LifeAnswerDate RecordedPurpose and direction in mkbcFohzkxb13/25/2021Sex and Gender InformationValueDate RecordedSex Assigned at BirthNot on fileLegal PgiFcil7412/30/2014 11:51 AM EDTGender IdentityNot on file Sexual OrientationNot on file Last Filed Vital Signs Vital SignReadingTime TakenCommentsBlood Pxjtqvlh533/54012/17/2019 12:28 PM EDT Qfomn297112/17/2019 12:28 PM VXGAqiczqlfosb22.7 ??C (98.1 ??F)12/17/2019 12:28 PM EDTRespiratory Mbou116112/17/2019 12:28 PM EDTOxygen Jnuhfvpfuy91%12/17/2019 12:28 PM EDTInhaled Oxygen Concentration--Vlgzcy63.3 kg (219 lb)12/16/2019 10:58 PM BNKFawnkl506.8 cm (5' 10 )12/16/2019 10:58 PM EDTBody Mass Index31.42012/16/2019 10:58 PM EDT Plan of Treatment Health MaintenanceDue DateLast DoneCommentsDepression Tueouyinf43/14/1978Tobacco Lmzafnxyg00/14/1978Adult BMI Igyvoumrs75/14/1984DTaP,Tdap and Td Vaccines (1 - Tdap)1985Zoster (Shingles) Vaccine (1 of 2)02/08/2016Influenza Vaccine 01/25/2025 Medical Devices Not on file Insurance * Guarantor: Dante GodinezAccount TypeRelation to PatientDate of PhoneBilling AddressPersonal/ExctsmQefa[address] [facility] [place] [address] Advance Directives * Full Code (Latest Code Status on File) Date ActivatedDate InactivatedComments12/17/2019 8:48 AM12/17/2019 5:03 PM Care Teams Team MemberRelationshipSpecialtyStart DateEnd Date Laurent Baez MD [address] [facility] [place] [place] [address] PCP - GeneralFaorly Ooweaskd07/17/20
--- OUTSIDE RECORDS SUMMARY | 2025-05-01 07:01 | XMS_ITS | Clinical Summary ---
Author Organization [facility] Address [address] [place] [address] Care Team Providers Care High Density Press Operator Name Role Phone Unavailable Primary Care Provider Unavailabl e Social History Tobacco UseTypesPacks/DayYears UsedDateSmoking Tobacco: Never AssessedUT Safety & EnvironmentAnswerDate RecordedFear of Current or Ex-PartnerNot on file 07/18/2023Emotionally AbusedNot on file07/18/2023hysically AbusedNot on file 07/18/2023Sexually AbusedNot on file07/18/2023hysically or Sexually AbusedNot on file07/18/2023Sex and Gender InformationValueDate RecordedSex Assigned at BirthNot on fileLegal BliRyoh2411/23/2021 12:38 AM EDTGender IdentityNot on file Sexual OrientationNot on file Plan of Treatment Not on file
--- OUTSIDE RECORDS SUMMARY | 2025-05-01 07:01 | XMS_ITS | Clinical Summary ---
Author Organization [facility] Healthcare Address [address] [place] [address] Care Team Providers Care Kit Assembler Name Role Phone Antwan Perez MD Primary Care Provider Luci Rios SMOCKING MACHINE OPERATOR Unavailable [phone] Allergies No known active allergies Medications [...] mg) by mouth Daily 90 tablet 5Active Mchigfbfnae-Igvdffugs-Hnbuso (Trelegy Ellipta) 200-62.5-25 MCG/ACT aerosol powder Indications:Severe [...] III SHORT PEN) 31G X 8 mm [facility] [place] Indications:Type 2 diabetes mellitus with diabetic polyneuropathy, [...] complication, with long-term current use of insulin ([facility])Inject 20 Units under the skin at bedtime 18 mL 5Active Active Problems ProblemNoted DateDiagnosed DateChronic pain of right ankle12/31/2024 Assessment & Plan (12/31/2024 5:09 PM EDT): Attempted to call Dr Perez's office they were closed Will send for xray and venous doppler to r/o DVT Elevated serum ypqkimsmsi02/26/2025 Assessment & Plan (10/08/2024 4:18 PM EDT): Recheck labs, still has not heard anything about renal US at [facility] We will refax Edema of both lower uevkywqfbgq02/25/2025 Assessment & Plan (12/31/2024 6:52 AM EDT): Current meds: aldactone, hydrochlorothiazide in losartan Assessment & Plan (10/08/2024 7:08 AM EDT): Current meds: aldactone, hydrochlorothiazide in losartan Assessment & Plan (08/18/2024 4:18 PM EDT): improved Type 2 diabetes mellitus without bqrwrdsxneeuz04/05/2025 Assessment & Plan (12/31/2024 6:51 AM EDT): [...] no contraindications for that A1c 8.3% 07/18/24 ferry terminal agent (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 Assessment & Plan (01/22/2024 4:27 PM EDT): Atorvastatin 40mg Denies myalgias Continue current regimen. Assessment & Plan (10/24/2023 3:17 PM EDT): On lipitor 40 mg. Check lipid panel Grade II internal /13/2024Type 2 diabetes mellitus with diabetic polyneuropathy, with long-term current use of dqpzolv9308/07/2023 Assessment & Plan (12/31/2024 6:50 AM EDT): [...] log next appt. Severe persistent asthma without jxikbvzpplfs06/13/2024 Assessment & Plan (12/31/2024 6:52 AM EDT): [...] shortness of breath. Gastro-esophageal reflux disease without cbgeuxbblfi61/13/2024 Assessment & Plan (07/29/2024 7:42 AM EST): Recommendations: freq small meals, nothing to eat or drink at least 2 hours prior to bed, limit caffeine, alcohol, as well as spicy foods Meds to limit or avoid if possible: NSAIDS Elevate HOB if possible Med: omeprazole Resolved Problems ProblemNoted DateDiagnosed DateResolved DateResistant kngljxacqtax07/13/2024 07/29/2024 Assessment & Plan (04/27/2024 3:25 PM [...] his home BP log next appt. Other xapqhvbtigfqow02/13/202403/09/2024 Assessment & Plan (08/07/2023 4:02 PM EDT): On lipitor, check lipid panel Encounters DateTypeDepartmentCare PchzSprenarxomo35/30/2025 3:15 PM EDTProcedure Visit [facility] [address] [place] [phone] Abisai Boateng DPM Onychodystrophy (Primary Dx); Onychomycosis; Type 2 diabetes mellitus with diabetic polyneuropathy, with long-term current use of insulin (HCC)02/23/2025amboo flowsheet [facility] [address] [place] [phone] Abisai Boateng DPM 02/23/20255004Wdrqne24/29/2025Travelfrom Last 3 Months Immunizations ImmunizationAdministration DatesNext DueInfluenza, injectable, MDCK, preservative free, qodzmauqysed72/15/2021,02/17/2020Influenza, injectable, quadrivalent, preservative free03/12/2017Influenza, seasonal, injectable 03/13/2022,03/09/2019Influenza, seasonal, injectable, preservative free 05/28/2024MMR05/28/2024Pneumococcal conjugate vaccine, 21 valent (PCV21), polysaccharide QNN389 conjugate, preservative free05/28/2024Tdap1 Zoster, Bsypuuiifrp09/28/2022 Family History Medical HistoryRelationNameCommentsStrokeFatherJose RoblesDiabetesSisterChavela RoblesRelationNameStatusCommentsFatherJose RoblesSisterChavela Godinez Social History Tobacco UseTypesPacks/DayYears UsedDateSmoking Tobacco: FormerCigarettesPassive Smoke Exposure: PastSmokeless Tobacco: Never Tobacco Cessation:Counseling Given: Not Answered Alcohol UseStandard Drinks/WeekCommentsNever0 (1 standard drink = 0.6 oz pure alcohol)B1300 Health LiteracyAnswerDate RecordedHow often do you need to have someone help you when you read instructions, pamphlets, or other written material from your doctor or pharmacy?Ogcnqtksb33/27/2024Social Connection and Isolation PanelAnswerDate RecordedIn a typical week, how many times do you talk on the phone with family, friends, or neighbors?More than three times a week 01/21/2024How often do you get together with friends or relatives?Never 01/21/2024How often do you attend gnosticism or jainism services?More than 4 times per year01/21/2024o you belong to any clubs or organizations such as gnosticism groups, unions, fraternal or athletic groups, or [...] heating?Not very hard01/21/2024HQ-2AnswerDate RecordedPatient Health Questionnaire-2 Score0 10/24/2023[facility] [place] [facility] - Occupational Stress QuestionnaireAnswerDate RecordedDo you feel stress - tense, restless, nervous, or anxious, or unable to sleep at night because yourmind is troubled all the time - these days?Not at all01/21/2024Exercise Vital SignAnswerDate RecordedOn average, how many days per week do you engage in moderate to strenuous exercise (like a brisk walk)?Patient yqibhmdm19/27/2024On average, how many minutes do you engage in exercise at this level?Patient efnrydjo48/27/2024Hunger Vital Sign AnswerDate RecordedWithin the past 12 [...] homeless or living in a mcc (including now)?No01/21/2024Sex and Gender InformationValueDate RecordedSex Assigned at BirthNot on fileLegal SexMale 08/08/2022 11:39 PM EDTGender IdentityNot on fileSexual OrientationNot on file Last Filed Vital Signs Vital SignReadingTime TakenCommentsBlood Ltqongzt080/7808 3:54 PM EDT Yoygy782212/31/2024 3:54 PM HVJKohklqaiiho78.6 ??C (97.8 ??F)12/31/2024 3:54 PM EDTRespiratory Shga435212/31/2024 3:54 PM EDTOxygen Bgcclockzc88%12/31/2024 3:54 PM EDTInhaled Oxygen Concentration--Vkujoi746 kg (243 lb)02/23/2025 3:23 PM EDT Oqckja350.6 cm (5' 6 )02/23/2025 3:23 PM EDTBody Mass Index39.22002/23/2025 3:23 PM EDT Plan of Treatment DateTypeDepartmentCare Team (Latest Contact Info)Msgflqbxmdd49/30/2026 3:15 PM EDTProcedure Visit [facility] [address] [place] [phone] Abisai Boateng, VAL [address] [place] [address] Health MaintenanceDue DateLast DoneCommentsCT Eywxsckdltnx1966FIT-DNA 1966FIT1966FOBT1966 8575Syqyscpjylwaw1966COVID-19 Vaccine (2024- season)/, 09/19/2020Influenza Vaccine (#1) 501/06/2024, 03/13/2022, 05/10/2021, Additional history exists Sewwctrvaus34/06/519857/10/2024, 01/26/2022, 2Colorectal Cancer Gkzuvvack75/06/2035Pneumococcal Vaccine: Pediatrics (0 to 5 Years) and At-Risk Patients (6 to 64 Years)Aged OutNo longer eligible based on patient's age to complete this topic Procedures Procedure NamePriorityDate/TimeAssociated DiagnosisCommentsCOLONOSCOPY PXDZUETWQLZycqgvg11/06/2025 9:25 AM ESTfrom Last 3 Months or Most Recently Relevant to Health Maintenance Results * COLONOSCOPY DIAGNOSTIC (07/30/2024 9:25 AM EST)Anatomical RegionLaterality ModalityRadiographic Imaging Narrative Authorizing ProviderResult TypeResult StatusCamdominik Andrews MDIMG XR PROCEDURES Final Result from Last 3 Months or Most Recently Relevant to Health Maintenance Insurance * Guarantor: Dante DietzAccount TypeRelation to PatientDate of PhoneBilling AddressPersonal/NqbqrsXmvi1965 [facility] [place] [address] Care Teams Team MemberRelationshipSpecialtyStart DateEnd Date Antwan Perez MD [address] [place] [phone] PCP - GeneralFaazly Medicine12/30/23 Luci Rios NP [address] [place] [phone] Nurse PractitionerSouth [facility] Medical Center02/23/25
--- OUTSIDE RECORDS SUMMARY | 2025-05-01 07:01 | XMS_ITS | Patient Health Record ---
Author Organization [facility] Address [address] [address], [place] [address] Care Team Providers Care Rug Setter [place] Name Role Phone Bharath Perez Unavailable [phone] Allergies No Known Allergies Reason For Referral No Information Medications Medication SIG (Take, Route, Frequency, Duration) Notes Start Date End Date Status Meloxicam 15 MG Tablet 1 tablet Orally Once a da y ActiveCalcium 500 MG Tablet1 tablet with meals Orally Twice a dayActivemetFORMIN HCl 850 MG TabletOral; Duration: 90 DaysActiveVitamin A4RbwrfdZdsxport Potassium-HCTZ 100-25 MG TabletOral; Duration: 90 DaysActiveFish [...] (M87.871)Activeconfirmed Encounters Encounter Location Date Provider Diagnosis [facility] [address] [address], [place] [address] 11/30/2024 Bharath Perez Arthritis of right ankle [...] Name:Bharath ortega, 06/14/2025 03:30:00 PM, [address] [facility], [address], [address], [place], [address], Insurance Providers Payer Name Payer Address Payer Phone Subscriber Number Group Number Insured Name Patient Relationship to Insured Coverage Start Date Coverage End Date [facility] [address] [place] [address] [id number] Herbert DeweyShanel - patient is the insured Medical (General) History Medical History History ICD Code Asthma DiabetesHigh Blood PressureRefluxHyperlipidemiaSurgical History Surgery Date(Month/Year) Right Total Talus 2019 Right Ankle Arthroscopy 2020 Right Ankle SJF, removal of hardware, le ngthening Achilles 2022
[2025-05-01 07:08] LABS: Hematocrit 39.7 % (42.0-54.0); Hemoglobin 13.5 g/dL (14.0-18.0); Immature Granulocytes Abs Auto 0.03 10^3/uL (0.00-0.03); Immature Granulocytes Pct Auto 0.5 % (0.0-0.5); Lymphocytes Absolute Auto 1.9 10^3/uL (1.2-3.8); Mean Corpuscular HGB Conc 34.0 g/dL (29.9-35.2); Mean Corpuscular Hemoglobin 29.4 pg (25.9-34.0); Mean Corpuscular Volume 86.5 fL (80.0-94.0); Platelet Count 162 10^3/uL (150-450); Red Blood Count 4.59 10^6/uL (4.70-6.10); White Blood Count 6.0 10^3/uL (4.0-11.0)
[2025-05-01 07:36] LABS: Alanine Aminotransferase 92 U/L (16-63); Albumin Globulin Ratio 0.9; Albumin Level 3.8 g/dL (3.4-5.0); Alkaline Phosphatase 93 U/L (46-116); Anion Gap 12.5; Aspartate Amino Transferase 49 U/L (15-37); Blood Urea Nitrogen 20.0 mg/dL (7.0-18.0); Calcium 8.7 mg/dL (8.5-10.1); Carbon Dioxide 29.7 mmol/L (21.0-32.0); Chloride 102 mmol/L (98-107); Cholesterol 184 mg/dL (<=200); Estimated GFR (African America >60 (>=60 mL/min/1.73m^2); Estimated GFR (Non-African Ame 53 (>=60 mL/min/1.73m^2); Globulin 4.4 g/dL; Glucose 191 mg/dL (74-106); HDL Cholesterol 37 mg/dL (40-60); Potassium 4.2 mmol/L (3.5-5.1); Sodium 140 mmol/L (136-145); Thyroid Stimulating Hormone 1.748 uIU/mL (0.358-3.740); Total Protein 8.2 g/dL (6.4-8.2); Triglycerides 267 mg/dL (<=150); VLDL CHOLESTEROL 53.4 mg/dL
[2025-05-01 08:38] LABS: Microalbum Creatinine Ratio Ur 162.6 mg/g (0.0-29.9)
[2025-05-01 08:47] LABS: Glucose Urine UA NEGATIVE (NEGATIVE)
[2025-05-01 09:09] LABS: Cast Seen? NONE SEEN #/LPF (NONE SEEN); Crystals Seen? None Seen #/HPF (None Seen)
== END 2025-05-01 06:58 | disposition home or self-care (01) ==
LOC: LAB 06:57
PROVIDERS: PCP Nurse Practitioner; Visit Provider Nurse Practitioner
DX: Z12.5 Encounter for screening for malignant neoplasm of prostate (principal); E11.42 Type 2 diabetes mellitus with diabetic polyneuropathy; Z79.4 Long term (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; I10 Essential (primary) hypertension; E66.01 Morbid (severe) obesity due to excess calories; R60.0 Localized edema; K21.9 Gastro-esophageal reflux disease without esophagitis
CPT/HCPCS: 36415; 80053; 80061; 81001; 82043; 82570; 84443; 85025; G0103